=== PATIENT | male | born 1965 | race Caucasian/White ===

== ENCOUNTER 2022-09-08 08:54 | Outpatient (OUT) | payer OTHER, SELFPAY ==
--- NOTE | 2022-09-08 09:11 | P.CN_ITS ---
Consult Note: HPI Data of Consult Patient: known to practice within the last 3 years Consult date: 09/08/22 Requesting Physician: KEESHA TELLEZ NP Primary Care Provider: Peace Luz MD Consult Narrative Narrative: Patient here for f/u of low back pain. He had lumbar MBB done 08/22/22 with >80% relief of pain and increased fx . He would like to proceed with second dx MBB. Pain is bilat lower lumbar with no radicular sx . No new bowel or bladder issues. No new sensorimotor sx. Medication regimen assists patient with completing ADLs. cc:: CC: KEESHA TELLEZ NP Review of Systems ROS Status of ROS 10 or more systems reviewed and unremarkable except as noted in history and below Musculoskeletal Reports: back pain Exam Constitutional Documenting provider has reviewed patient's vital signs: yes Common normals: no apparent distress, oriented x3, healthy appearing and well nourished General appearance: cooperative, comfortable and well developed Orientation/consciousness: Yes awake, Yes oriented to person, Yes oriented to place and Yes oriented to time HENMT Common normals: normocephalic, hearing grossly normal bilaterally, nasal mucous membranes and turbinates normal and moist oral mucous membranes Respiratory Common normals: normal respiratory effort, no retractions and no use of accesso ry muscles Effort & inspection: able to speak in complete sentences and symmetric chest movement Back & Pelvis Lumbar spine/lower back: normal to inspection, lumbar ROM normal, pain with ROM and paraspinal muscle tenderness Extremity Common normals: normal to inspection, normal capillary refill and no pedal edema Other: positive facet load bilat, neg SLR, muscle strength 5/5 bilat LE with intact sensation Assessment and Plan Assessment and Plan (1) Lumbar spondylosis: (2) Muscle spasm: Plan schedule second dx MBB to bilat lumbar L2,3 and L4,5 restart diclofenac BID and calcium BID
== END 2022-09-08 08:55 ==
PROVIDERS: PCP Specialist; Visit Provider Nurse Practitioner
DX: M47.816 Spondylosis without myelopathy or radiculopathy, lumbar region (principal); M62.838 Other muscle spasm
CPT/HCPCS: G0463

== ENCOUNTER 2022-10-10 09:58 | Day surgery (SDC) | payer OTHER, SELFPAY ==
[2022-10-10 10:29] VITALS: BP 114/76; PULSE 62; RESP 16; TEMP 36.7; O2SAT 97
[2022-10-10 11:28] VITALS: RESP 20
[2022-10-10 11:31] VITALS: BP 123/77; PULSE 73; O2SAT 93
[2022-10-10] MEDS: BUPIVACAINE HCL 0.25% PF 25 MG/10 ML VIAL INJ (11:32)
[2022-10-10 11:36] VITALS: BP 121/77; PULSE 72; O2SAT 97
--- NOTE | 2022-10-10 16:39 | W.PM.PROCNOT ---
Date of procedure: 10/10/22 Pre-op diagnosis: lumbar spondylosis Post-op diagnosis: same Procedure: Bilateral lumbar 2,3 & 4,5 medial branch block Under fluoroscopic guidance Solution injected: 2milliliters Marcaine 0.25% Anesthesia :none Immediate complications none Time out process compliant After informed consent obtained from the patient placed in the Prone proposition . area was prepped and draped in a sterile fashion using betadine .25 gauge spinal needle inserted over each of the above mentioned target areas . Assawoman were directed towards the target under fluoroscopic guidance . after encountering each of the targets , no indication of intravascular intraneuronal or intrathecal needle tip placement. Then 0 .5 to 1 Milliliter was injected at each level. Assawoman removed postoperatively. patient transferred to recovery in stable condition to be discharged home after meeting criteria Anesthesia: Local Surgeon: Romulo Moraes
== END 2022-10-10 11:41 | disposition home or self-care (01) ==
LOC: SURGOUT 09:59
PROVIDERS: PCP Family Medicine; Visit Provider Anesthesiology Pain Medicine
DX: M47.816 Spondylosis without myelopathy or radiculopathy, lumbar region (principal)
CPT/HCPCS: 64493; 64494

== ENCOUNTER 2022-10-26 13:00 | Outpatient (OUT) | payer OTHER, SELFPAY ==
--- NOTE | 2022-10-26 13:13 | PM.CN ---
Consult Note: HPI Data of Consult Patient: known to practice within the last 3 years Requesting Physician: KEESHA TELLEZ NP Primary Care Provider: RODRIGO BRINK Consult Narrative Reason for consult: MBB L2-3/L4-5 #2 follow up cc:: CC: KEESHA TELLEZ NP Review of Systems ROS Status of ROS 10 or more systems reviewed and unremarkable except as noted in history and below Musculoskeletal Reports: back pain and limited range of motion (limited ROM with hip rotation) PFSH PFSH Medical History (Updated 10/02/22 @ 08:09 by Jacqueline Abad) Surgical History Meds Home Medications and Allergies Home Medications Medication Instructions Recorded Confirmed Type amitriptyline 25 mg tablet 25 mg PO .HS 10/02/22 10/10/22 History amlodipine 10 mg tablet 10 mg PO .QD 10/02/22 10/10/22 History azelastine-fluticasone 137 mcg-50 1 spray intranasal .QD 10/02/22 10/10/22 History mcg/spray nasal spray bisoprolol 10 1 tab PO .QD 10/02/22 10/10/22 History mg-hydrochlorothiazide 6.25 mg tablet calcium carbonate 500 mg-vitamin 1 tab PO BID 10/02/22 10/10/22 History D3 5 mcg (200 unit) tablet (Oyster Shell Calcium-Vitamin D3) cetirizine 10 mg tablet 10 mg PO .QD 10/02/22 10/10/22 History cyanocobalamin (vitamin B-12) 1,000 mcg PO DAILY 10/02/22 10/10/22 History 1,000 mcg capsule diclofenac sodium 75 mg 75 mg PO BID 10/02/22 10/10/22 History tablet,delayed release folic acid 1 mg tablet 1 mg PO .QD 10/02/22 10/10/22 History gabapentin 300 mg capsule 300 mg PO BID 10/02/22 10/10/22 History halobetasol propionate 0.05 % applic topical BID 10/02/22 History topical cream hydrochlorothiazide 25 mg tablet 25 mg PO DAILY 10/02/22 10/10/22 History hydrocodone 5 mg-acetaminophen 325 tab PO BID PRN pain 10/02/22 History mg tablet hyoscyamine sulfate 0.125 mg tablet 0.125 mg PO Q6H PRN dyspepsia 10/02/22 10/10/22 History methotrexate sodium 2.5 mg tablet 2.5 mg PO QWEEK 10/02/22 10/10/22 History multivitamin 1 tab PO DAILY 10/02/22 10/10/22 History sulindac 200 mg tablet 200 mg PO .QD 10/02/22 10/10/22 History tazarotene 0.1 % topical foam topical 10/02/22 History tizanidine 4 mg tablet 4 mg PO BID PRN muscle spasticity 10/02/22 10/10/22 History triamcinolone acetonide 0.1 % applic topical BID 10/02/22 History topical cream Allergies Allergy/AdvReac Type Severity Reaction Status Date / Time adalimumab [From Humira] Allergy Verified 10/10/22 10:24 morphine Allergy Verified 10/10/22 10:24 secukinumab [From Cosentyx] Allergy Verified 10/10/22 10:24 Exam Constitutional Common normals: no apparent distress, oriented x3, healthy appearing, alert and well nourished General appearance: cooperative HENMT Common normals: normocephalic Head and scalp: normocephalic Mouth: oral and palatal mucosa normal Eye Common normals: PERRL Pupil: PERRL Neck & C-Spine Common normals: full ROM General: normal visual inspection Chest Common normals: inspection of chest normal Respiratory Common normals: normal respiratory effort, no retractions and no use of accessory muscles Back & Pelvis Thoracic spine/upper back: normal to inspection Lumbar spine/lower back: normal to inspection, ROM limited, pain with ROM and paraspinal muscle tenderness Sacroiliac joints: SI joints normal Extremity Common normals: normal to inspection and full ROM Neuro Common normals: oriented x3, CN's II-XII intact bilaterally, moves all extremities, no focal motor deficits, no sensory deficits noted, deep tendon reflexes 2+ bilaterally and gait normal Sensorium/orientation: alert Cranial nerves: CN normal except as noted Speech: speech normal Gait (neuro): normal gait Motor exam: strength 5/5 throughout and no movement abnormalities noted Psych Common normals: mental status grossly normal, thought process normal, cooperative, affect normal, speech normal and activity/motor behavior normal Speech: normal speech Thought process: normal thought process Assessment and Plan Assessment and Plan (1) Lumbar spondylosis: (2) Muscle spasm: Plan Pt f/u for evluation after MBB #2 at L2-3 L 4-5 on 10/10/22. Patient experienced moderate pain relief and improvement with ADLs, at least 80% relief. Patient reports significant improvement with ability to climb stairs, able to ambulate better and further around apartment, pain relief lasted a few hours after test injection. Patient denies radiclopathy, no change in bowel/bladder continence. Patients current pain medication regimen provides substantial relief in pain and ability to carry out ADLs. UDS up to date, OARRS Reviewed, RYLEE 60% Muscle Strength 5/5 BLE, sensation intact BLE Plan to proceed with left side L3-4 L4-5 RFA followed by right side L3-L4 L4-L5 RFA. Refilled [place] 5/325 BID. F/u after RFA.
== END 2022-10-26 13:01 | disposition home or self-care (01) ==
LOC: PM 13:00
PROVIDERS: PCP Family Medicine; Visit Provider Nurse Practitioner
DX: M47.816 Spondylosis without myelopathy or radiculopathy, lumbar region (principal); M62.838 Other muscle spasm
CPT/HCPCS: G0463

== ENCOUNTER 2022-11-14 10:57 | Day surgery (SDC) | payer OTHER, SELFPAY ==
[2022-11-14 11:19] VITALS: BP 144/93; PULSE 71; RESP 16; TEMP 36.7; O2SAT 98
[2022-11-14 12:10] VITALS: BP 126/81; PULSE 74; RESP 20; O2SAT 92
[2022-11-14] MEDS: METHYLPREDNISOLONE ACETATE 40 MG/ML VIAL INJ (12:13)
[2022-11-14] MEDS: LIDOCAINE HCL 2% 400 MG/20 ML MDV 15 ML INJ (12:13)
[2022-11-14] MEDS: BUPIVACAINE HCL 0.25% PF 25 MG/10 ML VIAL 4 ML INJ (12:13)
[2022-11-14 12:16] VITALS: BP 125/79; PULSE 76; O2SAT 92
--- NOTE | 2022-11-14 16:17 | W.PM.PROCNOT ---
Date of procedure: 11/14/22 Pre-op diagnosis: lumbar spondylosis Post-op diagnosis: same as pre-op Procedure: Left lumbar 2/3 and 4/5 Radiofrequency ablation Under fluoroscopic guidance Rhizotomy was created using radio frequency ablation at 80?C for 90 seconds 1 to 2 lesions created at each site. Post lesioning injection of 2 mL each of 0.25% Marcaine and 2% lidocaine with Depo-Medrol 40mg. 0.5 to 1 mL injected at each site Anesthesia local 2% lidocaine for Anesthesia Other: MAC Timeout process compliant After informed consent obtained.Patient brought to the procedure room placed in the prone position skin overlying the area was prepped and draped in a sterile fashion using betadine. 25 gauge needle was used to create a skin wheal over each of the targeted areas utilizing 2% lidocaine. A rhizotomy needle with a 10 mm active tip was inserted over each of the anesthetized areas and directed towards each of the medial branches accomplished under fluoroscopic guidance. after encountering the same we had positive sensory stimulation, negative motor stimulation was noted. lesions were then created. Post lesioning, steroid solution was injected needles removed. Patient was transferred to recovery room in stable condition to be discharged home after meeting criteria. Anesthesia: Local Surgeon: Romulo Moraes Condition: stable
== END 2022-11-14 12:31 | disposition home or self-care (01) ==
LOC: SURGOUT 10:58
PROVIDERS: PCP Family Medicine; Visit Provider Anesthesiology Pain Medicine
DX: M47.816 Spondylosis without myelopathy or radiculopathy, lumbar region (principal)
CPT/HCPCS: 64635; 64636; J1030

== ENCOUNTER 2022-12-05 12:01 | Day surgery (SDC) | payer OTHER, SELFPAY ==
[2022-12-05 12:31] VITALS: BP 127/83; PULSE 73; RESP 16; TEMP 37; O2SAT 96
[2022-12-05 13:35] VITALS: BP 123/78; PULSE 77; RESP 18; O2SAT 96
[2022-12-05] MEDS: METHYLPREDNISOLONE ACETATE 40 MG/ML VIAL INJ (13:38)
[2022-12-05] MEDS: BUPIVACAINE HCL 0.25% PF 25 MG/10 ML VIAL INJ (13:38)
[2022-12-05] MEDS: LIDOCAINE HCL 2% 400 MG/20 ML MDV 15 ML INJ (13:38)
[2022-12-05 13:40] VITALS: BP 132/77; PULSE 73; RESP 18; O2SAT 97
--- NOTE | 2022-12-05 16:15 | W.PM.PROCNOT ---
Date of procedure: 12/05/22 Pre-op diagnosis: lumbar spondylosis Post-op diagnosis: same as pre-op Procedure: Right lumbar 2/3, 4/5 Radiofrequency ablation Under fluoroscopic guidance Rhizotomy was created using radio frequency ablation at 80?C for 90 seconds 1 to 2 lesions created at each site. Post lesioning injection of 2 mL each of 0.25% Marcaine and 2% lidocaine with Depo-Medrol 40mg. 0.5 to 1 mL injected at each site IV in place yes/no If Intravenous fluids: NS at KVO Anesthesia local 2% lidocaine for Anesthesia Other: MAC Timeout process compliant After informed consent obtained.Patient brought to the procedure room placed in the prone position skin overlying the area was prepped and draped in a sterile fashion using betadine. 25 gauge needle was used to create a skin wheal over each of the targeted areas utilizing 2% lidocaine. A rhizotomy needle with a 10 mm active tip was inserted over each of the anesthetized areas and directed towards each of the medial branches accomplished under fluoroscopic guidance. after encountering the same we had positive sensory stimulation, negative motor stimulation was noted. lesions were then created. Post lesioning, steroid solution was injected needles removed. Patient was transferred to recovery room in stable condition to be discharged home after meeting criteria. Anesthesia: MAC Surgeon: Roumlo Moraes Condition: stable
== END 2022-12-05 13:55 | disposition home or self-care (01) ==
LOC: SURGOUT 12:02
PROVIDERS: PCP Family Medicine; Visit Provider Anesthesiology Pain Medicine
DX: M47.816 Spondylosis without myelopathy or radiculopathy, lumbar region (principal)
CPT/HCPCS: 64635; 64636; J1030

== ENCOUNTER 2022-12-29 09:25 | Outpatient (OUT) | payer OTHER, SELFPAY | END 2022-12-29 09:26 | disposition home or self-care (01) | PROVIDERS: PCP Family Medicine; Visit Provider Nurse Practitioner | DX: Z76.0 Encounter for issue of repeat prescription (principal) ==

== ENCOUNTER 2023-01-11 14:15 | Outpatient (OUT) | payer OTHER, SELFPAY ==
--- NOTE | 2023-01-11 14:49 | PM.CN ---
Consult Note: HPI Data of Consult Requesting Physician: Negra Solorzano NP Primary Care Provider: RODRIGO BRINK Consult Narrative Reason for consult: F/u Narrative: Patrick Buckley a pleasant 57 year old male presents for evaluation and management of chronic back pain, muscle spasms, and neuropathy. Patient rating pain today 9/10 in low back, radiating into bilateral thighs. Patient describes pain as a deep ache with occasional burning and muscle tightness/spasming. Patient recently completed right and left L2-3 L4-5 thermal RFA with only mild relief of pain and improvement of function, approximately 10%. cc:: CC: Negra Solorzano NP Review of Systems ROS Status of ROS 10 or more systems reviewed and unremarkable except as noted in history and below Musculoskeletal Reports: back pain and muscle cramps PFSH [facility] Medical History (Updated 01/11/23 @ 14:54 by Negra Solorzano NP) Hypertension ?I10 - Essential (primary) hypertension (ICD-10) Low back pain ?M54.50 - Low back pain, unspecified (ICD-10) Neck pain ?M54.2 - Cervicalgia (ICD-10) Numbness and tingling ?R20.0 - Anesthesia of skin (ICD-10) ?R20.2 - Paresthesia of skin (ICD-10) Osteoarthritis ?M19.90 - Unspecified osteoarthritis, unspecified site (ICD-10) Psoriatic arthritis ?L40.50 - Arthropathic psoriasis, unspecified (ICD-10) Upper back pain ?M54.9 - Dorsalgia, unspecified (ICD-10) Surgical History H/O gastric bypass ?Z98.84 - Bariatric surgery status (ICD-10) H/O umbilical hernia repair ?Z98.890 - Other specified postprocedural states (ICD-10) ?Z87.19 - Personal history of other diseases of the digestive system (ICD-10) H/O ventral hernia repair ?Z98.890 - Other specified postprocedural states (ICD-10) ?Z87.19 - Personal history of other diseases of the digestive system (ICD-10) History of appendectomy ?Z90.49 - Acquired absence of other specified parts of digestive tract (ICD-10) History of herniorrhaphy ?Z98.890 - Other specified postprocedural states (ICD-10) ?Z87.19 - Personal history of other diseases of the digestive system (ICD-10) Meds Home Medications and Allergies Home Medications Medication Instructions Recorded Confirmed Type amitriptyline 25 mg tablet 25 mg PO .HS 10/02/22 12/05/22 History amlodipine 10 mg tablet 10 mg PO .QD 10/02/22 12/05/22 History azelastine-fluticasone 137 mcg-50 1 spray intranasal .QD 10/02/22 12/05/22 History mcg/spray nasal spray bisoprolol 10 1 tab PO .QD 10/02/22 12/05/22 History mg-hydrochlorothiazide 6.25 mg tablet calcium carbonate 500 mg-vitamin 1 tab PO BID 10/02/22 12/05/22 History D3 5 mcg (200 unit) tablet (Oyster Shell Calcium-Vitamin D3) cetirizine 10 mg tablet 10 mg PO .QD 10/02/22 12/05/22 History cyanocobalamin (vitamin B-12) 1,000 mcg PO DAILY 10/02/22 12/05/22 History 1,000 mcg capsule diclofenac sodium 75 mg 75 mg PO BID 10/02/22 12/05/22 History tablet,delayed release folic acid 1 mg tablet 1 mg PO .QD 10/02/22 12/05/22 History gabapentin 300 mg capsule 300 mg PO BID 10/02/22 12/05/22 History halobetasol propionate 0.05 % applic topical BID 10/02/22 History topical cream hydrochlorothiazide 25 mg tablet 25 mg PO DAILY 10/02/22 12/05/22 History hydrocodone 5 mg-acetaminophen 325 tab PO BID PRN pain 10/02/22 History mg tablet hyoscyamine sulfate 0.125 mg tablet 0.125 mg PO Q6H PRN dyspepsia 10/02/22 12/05/22 History methotrexate sodium 2.5 mg tablet 2.5 mg PO QWEEK 10/02/22 12/05/22 History multivitamin 1 tab PO DAILY 10/02/22 12/05/22 History sulindac 200 mg tablet 200 mg PO .QD 10/02/22 12/05/22 History tazarotene 0.1 % topical foam topical 10/02/22 History tizanidine 4 mg tablet 4 mg PO BID PRN muscle spasticity 10/02/22 12/05/22 History triamcinolone acetonide 0.1 % applic topical BID 10/02/22 History topical cream hydrocodone 5 mg-acetaminophen 325 1 tab PO BID PRN pain #60 tabs 11/20/22 12/05/22 Rx mg tablet hydrocodone 5 mg-acetaminophen 325 1 tab PO BID PRN pain #60 tabs 12/25/22 Rx mg tablet hydrocodone 5 mg-acetaminophen 325 1 tab PO BID PRN pain #60 tabs 12/29/22 Rx mg tablet hydrocodone 5 mg-acetaminophen 325 1 tab PO BID PRN pain #60 tabs 12/29/22 Rx mg tablet Allergies Allergy/AdvReac Type Severity Reaction Status Date / Time adalimumab [From Humira] Allergy Verified 12/05/22 12:41 morphine Allergy Verified 12/05/22 12:41 secukinumab [From Cosentyx] Allergy Verified 12/05/22 12:41 Exam Constitutional Common normals: no apparent distress, oriented x3, healthy appearing, alert and well nourished General appearance: cooperative HENRI Common normals: normocephalic Head and scalp: normocephalic Mouth: oral and palatal mucosa normal Eye Common normals: PERRL Pupil: PERRL Neck & C-Spine Common normals: full ROM General: normal visual inspection Chest Common normals: inspection of chest normal Respiratory Common normals: normal respiratory effort, no retractions and no use of accessory muscles Back & Pelvis Thoracic spine/upper back: normal to inspection Lumbar spine/lower back: normal to inspection, ROM limited, pain with ROM and paraspinal muscle tenderness Sacroiliac joints: SI joints normal Extremity Common normals: normal to inspection and full ROM Neuro Common normals: oriented x3, CN's II-XII intact bilaterally, moves all extremities, no focal motor deficits, no sensory deficits noted, deep tendon reflexes 2+ bilaterally and gait normal Sensorium/orientation: alert Cranial nerves: CN normal except as noted Speech: speech normal Gait (neuro): normal gait Motor exam: strength 5/5 throughout and no movement abnormalities noted Psych Common normals: mental status grossly normal, thought process normal, cooperative, affect normal, speech normal and activity/motor behavior normal Speech: normal speech Thought process: normal thought process Assessment and Plan Assessment and Plan (1) Lumbar spondylosis: (2) Muscle spasm: (3) Numbness and tingling: (4) Osteoarthritis: (5) Low back pain: (6) Chronic prescription opiate use: Assessment and Plan: I feel these medications are improving the patient's quality of life and allow them to tolerate activities of daily living as well as participate in recreational activity.? The patient does not report intolerable side effects. The patient is NOT opioid naive and non-pharmacologic and non-opioid treatment has failed to significantly relieve the patient's pain and improve functionality. The patient has a diagnosis that is related to a somatic or visceral pain etiology. ? ?? I reviewed with the patient the potential risks and side effects with the use of? opioid medications including but not limited to respiratory depression,? sedation, and even . I verified the patient has access to naloxone should? these effects occur. I advised the patient to avoid the use of any other? sedation substances including alcohol, THC, and benzodiazepines while? taking opioid medications due to the risk of compounding side effects and? detrimental outcomes. I reviewed the FIELD SERVICER, pain treatment agreement, urine? drug screen, and opioid start talking forms. The patient was advised to let? their family know they had Naloxone in case they would need to administer? the medication.? ? Plan pt for low back pain (with TENS) lumbar x-ray increase tizanidine 8mg BID PRN continue f/u with PCP and Rheumatology continue current medications, tolerating well without side effects f/u 2 months
== END 2023-01-11 14:16 | disposition home or self-care (01) ==
LOC: PM 14:15
PROVIDERS: PCP Family Medicine; Visit Provider Nurse Practitioner
DX: L40.50 Arthropathic psoriasis, unspecified (principal); L40.51 Distal interphalangeal psoriatic arthropathy; L40.53 Psoriatic spondylitis; D53.9 Nutritional anemia, unspecified; L40.0 Psoriasis vulgaris; L40.9 Psoriasis, unspecified; M65.9 Synovitis and tenosynovitis, unspecified; M86.9 Osteomyelitis, unspecified; M85.80 Other specified disorders of bone density and structure, unspecified site; L40.3 Pustulosis palmaris et plantaris; L70.9 Acne, unspecified; Z87.442 Personal history of urinary calculi; Z87.2 Personal history of diseases of the skin and subcutaneous tissue; Z79.1 Long term (current) use of non-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-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); Z79.899 Other long term (current) drug therapy; Z79.631 Long term (current) use of antimetabolite agent; R94.4 Abnormal results of kidney function studies; E55.9 Vitamin D deficiency, unspecified; M50.30 Other cervical disc degeneration, unspecified cervical region; M75.41 Impingement syndrome of right shoulder; M75.42 Impingement syndrome of left shoulder; M47.812 Spondylosis without myelopathy or radiculopathy, cervical region; M19.011 Primary osteoarthritis, right shoulder; M19.012 Primary osteoarthritis, left shoulder; M19.041 Primary osteoarthritis, right hand; M19.042 Primary osteoarthritis, left hand; M16.0 Bilateral primary osteoarthritis of hip; M19.031 Primary osteoarthritis, right wrist; M19.032 Primary osteoarthritis, left wrist; M17.0 Bilateral primary osteoarthritis of knee; M47.816 Spondylosis without myelopathy or radiculopathy, lumbar region; M62.838 Other muscle spasm; R20.0 Anesthesia of skin; R20.2 Paresthesia of skin; M54.50 Low back pain, unspecified; Z79.891 Long term (current) use of opiate analgesic
CPT/HCPCS: 36415; 81001; 82306; 82565; 82652; 84450; 84460; 84520; 85025; 85652; 86140; G0463

== ENCOUNTER 2023-01-11 15:03 | Outpatient (OUT) | payer OTHER, SELFPAY ==
[2023-01-11 15:29] LABS: Basophils Percent Auto 0.5 % (0.2-2.0); Eosinophils Absolute Auto 0.1 10^3/uL (0.0-0.7); Eosinophils Percent Auto 0.7 % (0.9-7.0); Hematocrit 38.3 % (42.0-54.0); Hemoglobin 12.7 g/dL (14.0-18.0); Immature Granulocytes Abs Auto 0.02 10^3/uL (0.00-0.03); Immature Granulocytes Pct Auto 0.3 % (0.0-0.5); Lymphocytes Absolute Auto 1.7 10^3/uL (1.2-3.8); Lymphocytes Percent Auto 22.4 % (20.5-60.0); Mean Corpuscular HGB Conc 33.2 g/dL (29.9-35.2); Mean Corpuscular Hemoglobin 35.2 pg (25.9-34.0); Mean Platelet Volume 9.5 fL (9.5-13.5); Monocytes Absolute Auto 0.8 10^3/uL (0.3-0.8); Monocytes Percent Auto 10.2 % (1.7-12.0); Neutrophils Absolute Auto 4.8 10^3/uL (1.4-6.5); Neutrophils Percent Auto 65.9 % (43.0-75.0); Platelet Count 313 10^3/uL (150-450); Red Blood Count 3.61 10^6/uL (4.70-6.10); Red Cell Distribution Width 13.8 % (11.0-15.0); White Blood Count 7.4 10^3/uL (4.0-11.0)
[2023-01-11 15:41] LABS: Erythrocyte Sedimentation Rate 2 mm/hr (<=20)
[2023-01-11 15:48] LABS: Bilirubin Urine NEGATIVE (NEGATIVE); Blood Urine SMALL (NEGATIVE); Clarity Urine CLEAR (CLEAR); Color Urine YELLOW (YELLOW); Glucose Urine UA NEGATIVE (NEGATIVE); Ketones Urine NEGATIVE (NEGATIVE); Leukocyte Esterase Urine TRACE (NEGATIVE); Nitrite Urine NEGATIVE (NEGATIVE); Protein Urine NEGATIVE (NEG/TRACE); Specific Gravity Urine 1.025 (1.005-1.025); Urobilinogen Urine 0.2 EU/dL (0.2-1.0); pH Urine 5.5 (5.0-9.0)
[2023-01-11 15:59] LABS: Mean Corpuscular Volume 106.1 fL (80.0-94.0)
[2023-01-11 16:04] LABS: Alanine Aminotransferase 36 U/L (16-63); Aspartate Amino Transferase 17 U/L (15-37); Estimated GFR (African America 56 (>=60); Estimated GFR (Non-African Ame 46 (>=60)
[2023-01-11 16:05] LABS: C Reactive Protein <0.2 mg/dL (<=1.0)
[2023-01-11 16:06] LABS: Bacteria Urine TRACE #/HPF (NONE SEEN); Cast Seen? NONE SEEN #/LPF (NONE SEEN); Crystals Seen? None Seen #/HPF (None Seen); Mucus Urine TRACE (NONE SEEN); Squamous Epithelial Cell Urine FEW #/LPF (NONE/RARE); Urine Culture Indicated NO
[2023-01-13 15:09] LABS: Calcitriol(1,25 di-OH Vit D) 25.9 pg/mL (24.8-81.5)
== END 2023-01-11 15:04 | disposition home or self-care (01) ==
LOC: LAB 15:04
PROVIDERS: PCP Family Medicine
DX: L40.50 Arthropathic psoriasis, unspecified (principal); L40.51 Distal interphalangeal psoriatic arthropathy; L40.53 Psoriatic spondylitis; D53.9 Nutritional anemia, unspecified; L40.0 Psoriasis vulgaris; L40.9 Psoriasis, unspecified; M65.9 Synovitis and tenosynovitis, unspecified; M86.9 Osteomyelitis, unspecified; M85.80 Other specified disorders of bone density and structure, unspecified site; L40.3 Pustulosis palmaris et plantaris; L70.9 Acne, unspecified; Z87.442 Personal history of urinary calculi; Z79.4 Long term (current) use of insulin; Z79.899 Other long term (current) drug therapy; Z79.631 Long term (current) use of antimetabolite agent; R94.4 Abnormal results of kidney function studies; E55.9 Vitamin D deficiency, unspecified; M50.30 Other cervical disc degeneration, unspecified cervical region; M75.41 Impingement syndrome of right shoulder; M75.42 Impingement syndrome of left shoulder; M47.812 Spondylosis without myelopathy or radiculopathy, cervical region; M19.011 Primary osteoarthritis, right shoulder; M19.012 Primary osteoarthritis, left shoulder; M19.041 Primary osteoarthritis, right hand; M19.042 Primary osteoarthritis, left hand; M16.0 Bilateral primary osteoarthritis of hip; M19.031 Primary osteoarthritis, right wrist; M19.032 Primary osteoarthritis, left wrist; M17.0 Bilateral primary osteoarthritis of knee
CPT/HCPCS: 36415; 81001; 82306; 82565; 82652; 84450; 84460; 84520; 85025; 85652; 86140

== ENCOUNTER 2023-01-22 14:11 | Outpatient (OUT) | payer OTHER, SELFPAY ==
--- NOTE | 2023-01-22 14:16 | XR_ITS ---
The [address] [address] Patient Name: GLENDA VALENTE MRN: [id number] date: 1965 Sex: M Assigned Patient Location: [facility] Current Patient Location: Accession/Order Number: [id number] Exam Date: 01/22/2023 14:30 Report Date: 01/23/2023 08:36 At the request of: KEELEY PIERSON Procedure: XR lumbar spine 6V w bending EXAMINATION: XR lumbar spine 6V w bending HISTORY: Lumbar Spondylosis ; chronic low back pain, right leg pain COMPARISON: XR L-spine 03/29/2018 FINDINGS: BONES: No fracture, spondylolisthesis, bone lesion. Mild degenerative facet arthropathy L4-5, L5-S1. Chronic, large degenerative osteophytes along the anterior endplate of T11 and T12. DISC SPACES: Mild narrowing L5-S1. PARASPINOUS: Negative. No paraspinous abnormality is seen. OTHER: Negative. XR/XR lumbar spine 6V w bending IMPRESSION: 1. Mild degenerative changes of lower lumbar spine; grossly stable. Electronically authenticated by: RAE DEJESUS Date: 01/23/2023 08:36
== END 2023-01-22 14:12 | disposition home or self-care (01) ==
LOC: RAD 14:13
PROVIDERS: PCP Family Medicine; Visit Provider Nurse Practitioner
DX: M47.816 Spondylosis without myelopathy or radiculopathy, lumbar region (principal)
CPT/HCPCS: 72114

== ENCOUNTER 2023-02-08 14:13 | Outpatient (OUT) | payer OTHER, SELFPAY ==
[2023-02-08 14:46] LABS: Bilirubin Urine NEGATIVE (NEGATIVE); Blood Urine TRACE-I (NEGATIVE); Clarity Urine CLEAR (CLEAR); Color Urine LT. YELLOW (YELLOW); Glucose Urine UA NEGATIVE (NEGATIVE); Ketones Urine NEGATIVE (NEGATIVE); Leukocyte Esterase Urine NEGATIVE (NEGATIVE); Nitrite Urine NEGATIVE (NEGATIVE); Protein Urine NEGATIVE (NEG/TRACE); Specific Gravity Urine 1.025 (1.005-1.025); Urobilinogen Urine 0.2 EU/dL (0.2-1.0); pH Urine 5.5 (5.0-9.0)
[2023-02-08 14:56] LABS: Estimated GFR (African America >60 (>=60); Estimated GFR (Non-African Ame 57 (>=60)
[2023-02-08 14:56] LABS: Bacteria Urine TRACE #/HPF (NONE SEEN); Mucus Urine NONE SEEN (NONE SEEN); WBC Urine 0-2 #/HPF (NONE SEEN)
[2023-02-08 14:57] LABS: Cast Seen? NONE SEEN #/LPF (NONE SEEN); Crystals Seen? None Seen #/HPF (None Seen); Squamous Epithelial Cell Urine RARE #/LPF (NONE/RARE)
== END 2023-02-08 14:14 | disposition home or self-care (01) ==
PROVIDERS: PCP Family Medicine
DX: R94.4 Abnormal results of kidney function studies (principal)
CPT/HCPCS: 36415; 81001; 82565; 84520

== ENCOUNTER 2023-03-15 14:33 | Outpatient (OUT) | payer OTHER, SELFPAY ==
--- NOTE | 2023-03-15 15:08 | P.CN_ITS ---
Consult Note: HPI Data of Consult Patient: known to practice within the last 3 years Requesting Physician: Negra Solorzano NP Primary Care Provider: RODRIGO BRINK Consult Narrative Reason for consult: f/u Narrative: Patrick Buckley a pleasant 57 year old male presents for evaluation and management of chronic pain. Today pain is in neck and low back, 7/10 sharp pain. Patient reports numbness and tingling in bilateral hands, worse in the morning. Lumbar xray shows degenerative changes most extensive at bilateral L4-5 L5-S1. Patient still finds mild to no benefit from lumbar RFAs. Patient would like to discuss options for chronic neck pain at today's visit. cc:: CC: Negra Solorzano NP Review of Systems 2 ROS0 Status of ROS 10 or more systems reviewed and unremark able except as noted in history and below Musculoskeletal Reports: back pain, neck pain and joint pain PFSH PFSH Medical History (Updated 03/15/23 @ 15:22 by Negra Solorzano NP) Psoriatic arthritis ?L40.50 - Arthropathic psoriasis, unspecified (ICD-10) Osteoarthritis ?M19.90 - Unspecified osteoarthritis, unspecified site (ICD-10) Upper back pain ?M54.9 - Dorsalgia, unspecified (ICD-10) Low back pain ?M54.50 - Low back pain, unspecified (ICD-10) Neck pain ?M54.2 - Cervicalgia (ICD-10) Numbness and tingling ?R20.0 - Anesthesia of skin (ICD-10) ?R20.2 - Paresthesia of skin (ICD-10) Hypertension ?I10 - Essential (primary) hypertension (ICD-10) Surgical History H/O umbilical hernia repair ?Z98.890 - Other specified postprocedural states (ICD-10) ?Z87.19 - Personal history of other diseases of the digestive system (ICD-10) H/O ventral hernia repair ?Z98.890 - Other specified postprocedural states (ICD-10) ?Z87.19 - Personal history of other diseases of the digestive system (ICD-10) H/O gastric bypass ?Z98.84 - Bariatric surgery status (ICD-10) History of herniorrhaphy ?Z98.890 - Other specified postprocedural states (ICD-10) ?Z87.19 - Personal history of other diseases of the digestive system (ICD-10) History of appendectomy ?Z90.49 - Acquired absence of other specified parts of digestive tract (ICD- 10) Meds Home Medications and Allergies Home Medications Medication Instructions Recorded Confirmed Type amitriptyline 25 mg tablet 25 mg PO .HS 10/02/22 12/05/22 History amlodipine 10 mg tablet 10 mg PO .QD 10/02/22 12/05/22 History azelastine-fluticasone 137 mcg-50 1 spray intranasal .QD 10/02/22 12/05/22 History mcg/spray nasal spray bisoprolol 10 1 tab PO .QD 10/02/22 12/05/22 History mg-hydrochlorothiazide 6.25 mg tablet calcium carbonate 500 mg-vitamin 1 tab PO BID 10/02/22 12/05/22 History D3 5 mcg (200 unit) tablet (Oyster Shell Calcium-Vitamin D3) cetirizine 10 mg tablet 10 mg PO .QD 10/02/22 12/05/22 History cyanocobalamin (vitamin B-12) 1,000 mcg PO DAILY 10/02/22 12/05/22 History 1,000 mcg capsule diclofenac sodium 75 mg 75 mg PO BID 10/02/22 12/05/22 History tablet,delayed release folic acid 1 mg tablet 1 mg PO .QD 10/02/22 12/05/22 History gabapentin 300 mg capsule 300 mg PO BID 10/02/22 12/05/22 History halobetasol propionate 0.05 % applic topical BID 10/02/22 History topical cream hydrochlorothiazide 25 mg tablet 25 mg PO DAILY 10/02/22 12/05/22 History hydrocodone 5 mg-acetaminophen 325 tab PO BID PRN pain 10/02/22 History mg tablet hyoscyamine sulfate 0.125 mg tablet 0.125 mg PO Q6H PRN dyspepsia 10/02/22 12/05/22 History methotrexate sodium 2.5 mg tablet 2.5 mg PO QWEEK 10/02/22 12/05/22 History multivitamin 1 tab PO DAILY 10/02/22 12/05/22 History sulindac 200 mg tablet 200 mg PO .QD 10/02/22 12/05/22 History tazarotene 0.1 % topical foam topical 10/02/22 History tizanidine 4 mg tablet 4 mg PO BID PRN muscle spasticity 10/02/22 12/05/22 History triamcinolone acetonide 0.1 % applic topical BID 10/02/22 History topical cream hydrocodone 5 mg-acetaminophen 325 1 tab PO BID PRN pain #60 tabs 11/20/22 12/05/22 Rx mg tablet hydrocodone 5 mg-acetaminophen 325 1 tab PO BID PRN pain #60 tabs 12/25/22 Rx mg tablet hydrocodone 5 mg-acetaminophen 325 1 tab PO BID PRN pain #60 tabs 12/29/22 Rx mg tablet hydrocodone 5 mg-acetaminophen 325 1 tab PO BID PRN pain #60 tabs 12/29/22 Rx mg tablet hydrocodone 5 mg-acetaminophen 325 1 tab PO BID PRN pain #60 tabs 01/22/23 Rx mg tablet hydrocodone 5 mg-acetaminophen 325 1 tab PO BID PRN pain #60 tabs 02/26/23 Rx mg tablet Allergies Allergy/AdvReac Type Severity Reaction Status Date / Time adalimumab [From Humira] Allergy Verified 12/05/22 12:41 morphine Allergy Verified 12/05/22 12:41 secukinumab [From Cosentyx] Allergy Verified 12/05/22 12:41 Exam Constitutional Documenting provider has reviewed patient's vital signs: yes Common normals: no apparent distress, oriented x3, healthy appearing, alert and well nourished General appearance: cooperative [facility] Common normals: normocephalic, hearing grossly normal bilaterally and moist oral mucous membranes Head and scalp: normocephalic Mouth: oral and palatal mucosa normal Eye Common normals: PERRL Pupil: PERRL Neck & C-Spine Common normals: full ROM General: normal visual inspection Cervical spine: pain with cervical ROM and paracervical muscle tenderness Neck images: 2 1. Chest Common normals: inspection of chest normal Respiratory Common normals: normal respiratory effort, no retractions and no use of accessory muscles Back & Pelvis Thoracic spine/upper back: normal to inspection Lumbar spine/lower back: normal to inspection, ROM limited, pain with ROM and paraspinal muscle tenderness Sacroiliac joints: SI joints normal Extremity Common normals: normal to inspection and full ROM Neuro Common normals: oriented x3, CN's II-XII intact bilaterally, moves all extremities, no focal motor deficits, no sensory deficits noted and deep tendon reflexes 2+ bilaterally Sensorium/orientation: alert Cranial nerves: CN normal except as noted Speech: speech normal Gait (neuro): normal gait Motor exam: strength 5/5 throughout and no movement abnormalities noted Psych Common normals: mental status grossly normal, thought process normal, cooperative, affect normal, speech normal and activity/motor behavior normal Speech: normal speech Thought process: normal thought process Results Additional Findings Additional findings: I have checked an [place] report on this patient today and there are no aberrancies noted in the prescribing history.?? A drug screen was completed and reviewed within the last year, and if there has not been a drug screen completed we ordered one today to monitor higher risk, state monitored pain medication use. As part of providing excellent, safe, comprehensive care, the following was completed at our patient's visit: 1. A medication reconciliation and review to ensure accurate knowledge of current/active medications, including asking our patients to inform us about any [id number] medications or herbal remedies/nutritional supplements/alternative remedies. 2. A review to specifically ensure our patients have had annual screening for: elevated body mass index (BMI), tobacco use, screening for depression, and screening for unhealthy alcohol use. When screening is concerning, patients are provided with education and the specific recommendation to discuss the concerning health issue and treatment options with their primary care provider. Assessment and Plan Assessment and Plan (1) Cervical spondylosis: (2) Osteoarthritis: (3) Chronic prescription opiate use: (4) Muscle spasm: (5) Lumbar spondylosis: Plan cervical xray EMG NCV of BUE continue current medications, tolerating well without side effect and finding functional benefit start transdermal therapeutics cream #8A TID to neck f/u after EMG/NCV and cervical xrays complete
== END 2023-03-15 14:34 | disposition home or self-care (01) ==
LOC: PM 14:33
PROVIDERS: PCP Family Medicine; Visit Provider Nurse Practitioner
DX: M47.812 Spondylosis without myelopathy or radiculopathy, cervical region (principal); M19.90 Unspecified osteoarthritis, unspecified site; Z79.891 Long term (current) use of opiate analgesic; M62.838 Other muscle spasm; M47.816 Spondylosis without myelopathy or radiculopathy, lumbar region
CPT/HCPCS: G0463

== ENCOUNTER 2023-03-16 10:42 | Outpatient (OUT) | payer OTHER, SELFPAY ==
--- NOTE | 2023-03-16 10:52 | XR_ITS ---
The [address] [address] Patient Name: GLENDA VALENTE MRN: [id number] date: 1965 Sex: M Assigned Patient Location: [facility] Current Patient Location: Accession/Order Number: [id number] Exam Date: 03/16/2023 11:00 Report Date: 03/19/2023 08:51 At the request of: KEELEY PIERSON Procedure: XR cervical spine 5V EXAMINATION: XR cervical spine 5V HISTORY: Cervical Spondylosis COMPARISON: No relevant comparison available. FINDINGS: BONES: Normal alignment with no acute fracture or spondylolisthesis. Moderate diffuse degenerative spondylosis and facet osteoarthropathy DISC SPACES: Moderate multilevel disc space narrowing most significant C6-C7 PARASPINOUS: Negative. No paraspinous abnormality is seen. OTHER: Negative. XR/XR cervical spine 5V IMPRESSION: Moderate diffuse degenerative changes Electronically authenticated by: TRA ANNE Date: 03/19/2023 08:51
== END 2023-03-16 10:43 | disposition home or self-care (01) ==
LOC: RAD 10:44
PROVIDERS: PCP Family Medicine; Visit Provider Nurse Practitioner
DX: M47.812 Spondylosis without myelopathy or radiculopathy, cervical region (principal); M50.30 Other cervical disc degeneration, unspecified cervical region
CPT/HCPCS: 72050

== ENCOUNTER 2023-04-27 10:18 | Outpatient (OUT) | payer OTHER, SELFPAY ==
--- OUTSIDE RECORDS SUMMARY | 2023-04-27 10:25 | XMS_ITS | CCD ---
Author Name Unknown Address [address] [place] [address] Organization [facility] Care Team Providers Care 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 Name Role Phone Rodrigo Luz Unavailable PILI ALLAN Surgeon Unavailable PILI ALLAN Attending Unavailable PILI ALLAN Admitting Unavailable [place] Procedure Practitioner Unavailab RODRIGO Proctor Referring Unavailable RODRIGO LUZ Primary Care Unavailable DANIELA MILIAN Surgeon Unavailable [place] Procedure Practitioner UnavailRodrigo Cannon MD Primary Care Provider [phone] Rodrigo Luz MD Primary Care Provider TRA VALE JR Attending Unavailable TRA VALE JR Referring Unavailable RODRIGO LUZ Primary Care Unavailable TRA VALE JR Attending Unavailable TRA VALE JR Referring Unavailable RODRIGO LUZ Primary Care Unavailable Tania Neal Unavailable TRA VALE Admitting Unavailable TRA VALE Attending Unavailable NATTY ., DR RODRIGO Kang Primary Care Unavailable TRA VALE Consulting Unavailable DEMAR ., DR PAXTON Jarrett Admitting Unavailable DEMAR ., DR PAXTON Jarrett Attending Unavailable NATTY ., DR RODRIGO Kang Primary Care Unavailable KATHE .FRACISCO Consulting Unavailable NATTY ., DR RODRIGO Kang Primary Care Unavailable NGUYỄN ., MR OLIMPIA Consulting Unavailable RUSTY ., JG Admitting Unavailable RUSTY ., JG Attending Unavailable TRA ALDRIDGE Consulting Unavailable TRA VALE Admitting Unavailable TRA VALE Attending Unavailable NATTY ., DR RODRIGO Kang Primary Care Unavailable TRA VALE Consulting Unavailable TRA VALE Admitting Unavailable TRA VALE Attending Unavailable NATTY ., DR RODRIGO Kang Primary Care Unavailable TRA VALE Consulting Unavailable LAKSHMIPATHY ., NARENDRANATH Admitting Sherly vailable LAKSHMIPATHY ., NARENDJAKE Attending Sherly vailable LUZ ., DR RODRIGO Kang Primary Care Unavailable LAKSHMIPATHY ., AMI Consulting Sherly vailable SOLANO ., DR PAXTON Jarrett Admitting Unavailable SOLANO ., DR PAXTON Jarrett Attending Unavailable LUZ ., DR RODRIGO Kang Primary Care Unavailable SOLANO ., DR PAXTON Jarrett Consulting Unavailable CALLIE, LORI Consulting Unavailable GUSTAVO, ELEN Admitting Unavailable GUSTAVO, ELEN Attending Unavailable LUZ ., DR RODRIGO Kang Primary Care Unavailable BEAR ANTOINE Consulting Unavailable STAINBROOK, TRA Admitting Unavailable STAINBROOK, TRA Attending Unavailable LUZ ., DR RODRIGO Kang Primary Care Unavailable STAINBROOK, TRA Consulting Unavailable STAINBROOK, TRA Admitting Unavailable STAINBROOK, TRA Attending Unavailable LUZ ., DR RODRIGO Kang Primary Care Unavailable STAINBROOK, TRA Consulting Unavailable STAINBROOK, TRA Admitting Unavailable STAINBROOK, TRA Attending Unavailable LUZ ., DR RODRIGO Kang Primary Care Unavailable STAINBROOK, TRA Consulting Unavailable HALKER ., KEESHA Admitting Unavailable HALKER ., KEESHA Attending Unavailable LUZ ., DR RODRIGO Kang Primary Care Unavailable LAKSHMIPATHY ., NARENDRANATH Admitting Sherly vailable LAKSHMIPATHY ., AMI Attending Sherly vailable LUZ ., DR RODRIGO Kang Primary Care Unavailable LAKSHMIPATHY ., NARENDSAMIATH Consulting Sherly vailable LAKSHMIPATHY ., NARENDRANATH Admitting Sherly vailable LAKSHMIPATHY ., AMI Attending Sherly vailable LUZ ., DR RODRIGO Kang Primary Care Unavailable LAKSHMIPATHY ., AMI Consulting Sherly vailable HALKER ., KEESHA Consulting Unavailable SOLANO ., DR PAXTON Jarrett Admitting Unavailable SOLANO ., DR PAXTON Jarrett Attending Unavailable LUZ ., DR RODRIGO Kang Primary Care Unavailable ARCHULETA .FRACISCO Consulting Unavailable LUZ ., DR RODRIGO Kang Admitting Unavailable LUZ ., DR RODRIGO Kang Attending Unavailable LUZ ., DR RODRIGO Kang Primary Care Unavailable LUZ ., DR RODRIGO Kang Consulting Unavailable STAINBROOK, TRA Admitting Unavailable STAINBROOK, TRA Attending Unavailable LUZ ., DR RODRIGO Kang Primary Care Unavailable STAINBROOK, TRA Consulting Unavailable LUZ ., DR RODRIGO Kang Primary Care Unavailable KAOR, PAT Admitting Unavailable PAT HUDDLESTON Attending Unavailable KARO, PAT Consulting Unavailable ARCHULETA ., FRACISCO Admitting Unavailable ARCHULETA ., FRACISCO Attending Unavailable LUZ ., DR RODRIGO Kang Primary Care Unavailable LUZ ., DR RODRIGO Kang Primary Care Unavailable ARCHULETA ., FRACISCO Admitting Unavailable ARCHULETA ., FRACICSO Attending Unavailable LUZ ., DR RODRIGO Kang Admitting Unavailable LUZ ., DR RODRIGO Kang Attending Unavailable LUZ ., DR RODRIGO Kang Primary Care Unavailable LUZ ., DR RODRIGO Kang Consulting Unavailable SOLANO ., DR PAXTON Jarrett Admitting Unavailable SOLANO ., DR PAXTON Jarrett Attending Unavailable LUZ ., DR RODRIGO Kang Primary Care Unavailable ARCHULETA ., FRACISCO Consulting Unavailable German Carrion Primary Care Physician [phone] RODRIGO LUZ Primary Care Unavailable LUZ, RODRIGO Primary Care Unavailable LUZ, RODRIGO Primary Care Unavailable LUZ, RODRIGO Primary Care Unavailable Luz Rodrigo MASON Primary Care Provider RODRIGO LUZ Primary Care Unavailable SELF, SELF Referring Unavailable STAINBROOK JR., TRA Vasquez Attending Unavaila ble STAINBROOK JR., TRA Vasquez Attending Unavaila ble LUZ, RODRIGO Primary Care Unavailable SELF, SELF Referring Unavailable German Carrion E. Attending Unavailable Murali German E. Attending Unavailable Murali German E. Attending Unavailable Murali German E. Attending Unavailable Murali German E. Attending Unavailable Yusuf FINE Attending Unavailable Murali, German E. Referring Unavailable Murali, German E. Admitting Unavailable Murali, German E. Attending Unavailable Murali, German E. Admitting Unavailable Ross, German E. Attending Unavailable Jack, CHARACTER ACTOR Yakelin L Attending Unavailable Jack, CHARACTER ACTOR Yakelin L Admitting Unavailable Jack, CHARACTER ACTOR Yakelin L Attending Unavailable LUZRODRIGO Attending Unavailable LUZRODRIGO VALLADARES Attending Unavailable German Carrion E. Attending Unavailable Allergies Allergy Classification Reported Allergen(s) Allergy Type Date of Onset Reaction(s) Facility adalimumab (1 source) adalimumab; Translations: [HUMIRA] Drug Allergy 8 [facility] Repository Opioid Agonists (1 source) Morphine; Translations: [MORPHINE] Drug Allergy 8 [facility] Repository secukinumab (1 source) secukinumab; Translations: [COSENTYX] Drug Allergy 8 [facility] Repository (20 sources) adalimumab; Translations: [adalimumab] Drug Allergy rash [facility] Work Phone: (20 sources) Morphine; Translations: [morphine] Drug Allergy 1 Unknown (qualifier value) [facility] Work Phone: (20 sources) secukinumab; Translations: [secukinumab] Drug Allergy rash [facility] Work Phone: (1 source) adalimumab Drug Allergy The [facility] Repository (1 source) Morphine Drug Allergy [facility] Repository (1 source) secukinumab Drug Allergy [facility] Repository Medications Current Medications Medication Drug Class(es) Dates Sig (Normalized) Sig (Original) amitriptyline hydrochloride 25 mg oral tablet (8 sources) Tricyclic Antidepressant Start: 11-15-2022 take 2 tablets by mouth once daily at bedtime amitriptyline 25 mg Tab 50 mg = 2 tab(s), Oral, Once a day (at bedtime), # 180 tab(s), Refills(s) 5, Pharmacy: [facility]/pharmacy #[id number], 180.3, cm, 11/15/22 16:44:00 EDT, Height/Length Dosing, 106.5, kg, 11/15/22 16:44:00 EDT, Weight Dosing Start Date: 11/15/22 Status: Ordered Start: 06-20-2020 take 2 tablets by [facility] once daily at bedtime amitriptyline 25 mg Tab 50 mg = 2 tab(s), Oral, Once a day (at bedtime), # 60 tab(s), Refills(s) 5, Pharmacy: [facility]/pharmacy #[id number], 180.3, cm, 10/20/22 8:11:00 EDT, Height/Length Dosing, 109.1, kg, 10/20/22 8:11:00 EDT, Weight Dosing Start Date: 10/30/22 Status: Ordered Amitriptyline HC l Active amLODIPine 5 mg oral tablet (20 sources) Dihydropyridine Calcium Channel Colette Start: 07-26-2022 take 1 tablet by mouth once daily amLODIPine 5 mg Tab 5 mg = 1 tab(s), Oral, Daily, # 90 tab(s), Refills(s) 3, [id number] Start Date: 07/26/22 Status: Ordered take 1 tablet by mouth once nate y amLODIPine 10 MG Tab tablet amlodipine 10 mg tablet Take 1 tablet every day by oral route. 0 Active amLODIPine Benzoate (1 source) amLODIPine Benzoate Active Bisoprolol (1 source) beta-Adrenergic Colette Bisoprolol Fumarate Active bisoprolol fumarate 10 mg / hydroCHLOROthiazide 6.25 mg oral tablet (7 sources) Thiazide Diuretic, beta-Adrenergic Colette Start: 07-10-19 21 take 1 tablet by mouth once daily in the morning bisoprolol-hydroc hlorothiazide 10-6.25 MG per tablet TAKE 1 TABLET BY MOUTH EVERY DAY IN THE MORNING 0 07/09/2020 Active 24 hr buPROPion hydrochloride 150 mg extended release oral tablet (2 sources) Aminoketone Start: 10-24-19 23 take 1 tablet by mouth every twenty-four hours buPROPion 150 mg/24 hours XL Tab 150 mg = 1 tab(s), Oral, q24hr, # 90 tab(s), Refills(s) 0, Pharmacy: [facility]/pharmacy #[id number], 180.3, cm, 10/20/22 8:11:00 EDT, Height/Length Dosing, 109.1, kg, 10/20/22 8:11:00 EDT, Weight Dosing Start Date: 10/23/22 Status: Ordered calcium carbonate 1250 mg / cholecalciferol 200 unt oral tablet (12 sources) Vitamin D Start: 08-26-19 20 take 1 tablet by mouth twice daily Calcium Carbonate-Vitamin D (Oyster Shell Calcium/D) 500-200 MG-UNIT tablet Take 1 tablet by mouth 2 times daily. 0 06/22/2020 Active cetirizine hydrochloride 10 mg oral tablet (20 sources) Histamine-1 Receptor Antagonist Start: 04-15-19 19 take 1 tablet by mouth once daily cetirizine 10 mg Tab 10 mg = 1 tab(s), Oral, Daily, # 90 tab(s), Refills(s) 0, Pharmacy: [facility]/pharmacy #[id number], 180.3, cm, 11/15/22 16:44:00 EDT, Height/Length Dosing, 106.5, kg, 11/15/22 16:44:00 EDT, Weight Dosing Start Date: 11/15/22 Status: Ordered [facility] Active cholecalciferol 0.25 mg oral capsule (20 sources) Vitamin D Start: 05-18-2022 take 1 capsule by mouth every week Cholecalciferol (Vitamin D3) 250 MCG (59085 UT) capsule Indications: Vitamin D deficiency TAKE 1 CAPSULE BY MOUTH ONE TIME PER WEEK 4 capsule 14 05/18/2022 Active Start: 05-11-2021 take 1 capsule by mo uth every week Cholecalciferol ([facility] Vitamin D3) 250 MCG (94373 UT) capsule capsule Indications: Vitamin D deficiency TAKE 1 CAPSULE BY MOUTH ONE TIME PER WEEK 4 capsule 14 05/11/2021 Active Start: 04-28-2020 take 1 capsule by mo uth every week Cholecalciferol ([facility] Vitamin D3) 250 MCG (49350 UT) capsule capsule Indications: Vitamin D deficiency TAKE 1 CAPSULE BY MOUTH ONE TIME PER WEEK 4 capsule 14 04/28/2020 Active Start: 04-21-2019 take 1 capsule by mo uth every week Cholecalciferol ([facility] VITAMIN D3) 250 MCG (39200 UT) Cap capsule Indications: Vitamin D deficiency TAKE 1 CAPSULE BY MOUTH ONCE A WEEK 4 capsule 14 04/21/2019 Active Start: 09-03-2018 End: 09-03-2018 take 2 capsules by mouth once Cholecalciferol (MAXIMUM D3) 41874 units Cap Indications: Vitamin D deficiency 2 po one day a week 10 capsule 11 09/03/2018 Active Start: 04-17-2018 End: 09-03-2018 take 1 capsule by mouth once Cholecalciferol (MAXIMUM D3) 42510 units Cap Indications: Vitamin D deficiency 1 po one day a week 5 capsule 11 04/17/2018 09/03/2018 Discontinued clobetasol propionate 0.5 mg/ml topical cream (7 sources) Corticosteroid Start: 07-03-2022 clobetasol 0.0 5 % Cream Indications: Rash APPLY TO AFFECTED AREAS TWICE A DAY FOR 2 WEEKS 15 g 11 07/03/2022 Active Start: 10-31-2021 clobetasol 0.0 5 % Cream Indications: Rash APPLY TO AFFECTED AREAS TWICE A DAY FOR 2 WEEKS 15 g 11 10/31/2021 Active Start: 03-11-2021 clobetasol 0.0 5 % Cream Indications: Rash APPLY TO AFFECTED AREAS TWICE A DAY FOR 2 WEEKS 15 g 11 03/11/2021 Active Start: 07-12-2020 clobetasol 0.0 5 % Cream Indications: Rash APPLY TO AFFECTED AREAS TWICE A DAY FOR 2 WEEKS 15 g 11 07/12/2020 Active Start: 10-09-2019 clobetasol 0.0 5 % Cream Indications: Rash Apply to affected areas bid for 2 weeks. 1 Tube 11 10/09/2019 Active Clobetasol 17 Pr opionate Active Clobetasol & Clobetasol Emul (1 source) Clobetasol & Clobetasol Emul Active cyclobenzaprine hydrochloride 10 mg oral tablet (2 sources) Muscle Relaxant Start: 023 take 1 tablet by mouth three times daily as needed for muscle spasms cyclobenzaprine 10 mg Tab 10 mg = 1 tab(s), Oral, TID, PRN for spasm, # 30 tab(s), Refills(s) 0 Start Date: 06/15/22 Status: Ordered Diclofenac (1 source) Nonsteroidal Anti-inflammatory Drug Diclofenac Active folic acid 1 mg oral tablet (20 sources) Start: 023 take 1 tablet by mouth once daily Folic acid 1 MG tablet TAKE 1 TABLET BY MOUTH EVERY DAY 30 tablet 08/29/2022 Active Start: 09-26-2021 take 1 tablet by eloy [facility] once daily folic acid 1 MG tablet TAKE 1 TABLET BY MOUTH EVERY DAY 30 tablet 09/26/2021 Active Start: 11-08-2020 take 1 tablet by [facility] once daily folic acid 1 MG tablet TAKE 1 TABLET BY MOUTH EVERY DAY 30 tablet 11/08/2020 Active Start: 01-02-2020 take 1 tablet by [facility] once daily folic acid 1 MG tablet TAKE 1 TABLET BY MOUTH EVERY DAY 30 tablet 01/02/2020 Active Start: 02-25-2019 take 1 tablet by [facility] once daily folic acid 1 MG Tab tablet TAKE 1 TABLET BY MOUTH EVERY DAY 30 tablet 02/25/2019 Active Start: 03-29-2018 take 1 tablet by el[facility] once daily folic acid 1 MG Tab tablet Indications: Psoriatic arthritis , 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 , Psoriatic spondylitis , SAPHO syndrome , Psoriasis , Fatigue, unspecified type , 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 arthritis , 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) , care home current use of 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 , 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, custodial, current use , Long-term current use of high risk medication other than anticoagulant , Lumbosacral spondylosis without myelopathy , Disorder of bone and cartilage , Plaque psoriasis , Cervicalgia , Dorsalgia , Chronic pain of both shoulders , Bilateral elbow joint pain , Bilateral wrist pain , Bilateral hand pain , Chronic pain of both knees 1 po q day 30 tablet 11 03/29/2018 Active Folic Acid Activ e gabapentin 300 mg oral capsule (20 sources) Anti-epileptic Agent Start: 11-15-2022 take 1 capsule by mouth twice daily gabapentin 300 mg Cap 300 mg = 1 cap(s), Oral, BID, # 180 cap(s), Refills(s) 0, [id number] 180.3, cm, 11/15/22 16:44:00 EDT, Height/Length Dosing, 106.5, kg, 11/15/22 16:44:00 EDT, Weight Dosing Start Date: 11/15/22 Status: Ordered Start: 10-30-2022 take 1 capsule by [facility] twice daily gabapentin 300 mg Cap 300 mg = 1 cap(s), Oral, BID, # 60 cap(s), Refills(s) 0, Pharmacy: [facility]/pharmacy #[id number], 180.3, cm, 10/20/22 8:11:00 EDT, Height/Length Dosing, 109.1, kg, 10/20/22 8:11:00 EDT, Weight Dosing Start Date: 10/30/22 Status: Ordered Start: 03-18-2018 take 1 capsule by [facility] once daily in the morning gabapentin 300 MG Cap capsule Take 1 capsule by mouth daily every morning. 0 03/18/2018 Active Gabapentin Activ e halobetasol propionate 0.5 mg/ml topical cream (20 sources) Corticosteroid Start: 07-29-2019 halobetasol 0. 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 , care 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) , 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 arthritis , Vitamin D deficiency , Primary osteoarthritis of both knees , Osteoarthritis of both wrists, unspecified osteoarthritis type , Osteoarthritis of both hips, unspecified osteoarthritis type , Osteoarthritis of both hands, unspecified osteoarthritis type , Osteoarthritis of both glenohumeral joints , Osteoarthritis of both acromioclavicular joints , Osteoarthritis of cervical spine, unspecified spinal osteoarthritis complication status , Impingement syndrome of both shoulders , DDD (degenerative disc disease), cervical Use as directed 50 g 11 07/29/2019 Active Start: 01-07-2019 End: 01-07-2019 halobetasol 0.05 % Cream Ind ications: Psoriatic arthritis , Psoriatic spondylitis , Psoriasis , Plaque psoriasis , Anemia, unspecified type , 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, custodial, current use , Long-term current use of high risk medication other than anticoagulant , care home current use of 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 , 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) , 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 arthritis , Vitamin D deficiency , Primary osteoarthritis of both knees , Osteoarthritis of both wrists, unspecified osteoarthritis type , Osteoarthritis of both hips, unspecified osteoarthritis type , Osteoarthritis of both hands, unspecified osteoarthritis type , Osteoarthritis of both glenohumeral joints , Osteoarthritis of both acromioclavicular joints , Osteoarthritis of cervical spine, unspecified spinal osteoarthritis complication status , Impingement syndrome of both shoulders , DDD (degenerative disc disease), cervical Use as directed 50 g 11 01/08/2019 Active End: 01-07-2019 halobetasol 0.05 % Cream antonina obetasol propionate 0.05 % topical cream APPLY A THIN LAYER TO THE AFFECTED AREA TOPICALLY TWO TIMES DAILY 0 01/07/2019 Discontinued Halobetasol Cr & Lactic Ac Cr (1 source) Halobetasol Cr & Lactic Ac Cr Active hydroCHLOROthiazide 25 mg oral tablet (20 sources) Thiazide Diuretic take 1 tablet by mouth once daily hydrochlorothiazide 25 MG Tab hydrochlorothiazide 25 mg tablet Take 1 tablet every day by oral route. 0 Active hyoscyamine sulfate 0.125 mg oral tablet (5 sources) Start: 2020 take 1 tablet by mouth every six hours as needed for pain hyoscyamine 0.125 MG tablet TAKE 1 TABLET BY MOUTH EVERY 6 HOURS NEEDED FOR ABDOMINAL PAIN 0 06/13/2020 Active 1 ml ixekizumab 80 mg/ml auto-injector (6 sources) Interleukin-17A Antagonist Start: 2021 Taltz 80 MG/ML Solution Auto-injector Talolimpia Active Meclizine (1 source) Antiemetic Meclizine HCl Ac tive methotrexate 2.5 mg oral tablet (20 sources) Folate Analog Metabolic Inhibitor Start: take 7 tablets by mouth every week methotrexate 2.5 MG tablet TAKE 7 TABLETS BY MOUTH ONE TIME PER WEEK 28 tablet 7 10/04/2022 Active Start: 03-15-2022 take 7 tablets by mo uth every week methotrexate 2.5 MG tablet TAKE 7 TABLETS BY MOUTH ONE TIME PER WEEK 28 tablet 7 03/15/2022 Active Start: 08-02-2021 take 7 tablets by mo uth every week methotrexate 2.5 MG tablet TAKE 7 TABLETS BY MOUTH ONE TIME PER WEEK 28 tablet 7 08/02/2021 Active Start: 01-18-2021 take 7 tablets by mo uth every week methotrexate 2.5 MG tablet TAKE 7 TABLETS BY MOUTH ONE TIME PER WEEK 28 tablet 7 01/18/2021 Active Start: 06-21-2020 take 7 tablets by mo uth every week methotrexate 2.5 MG tablet TAKE 7 TABLETS BY MOUTH ONE TIME PER WEEK 28 tablet 7 06/21/2020 Active Start: 10-29-2019 take 7 tablets by mo uth every week methotrexate 2.5 MG tablet TAKE 7 TABLETS BY MOUTH ONCE A WEEK 28 tablet 7 10/29/2019 Active Start: 03-12-2019 take 7 tablets by mo uth every week methotrexate 2.5 MG tablet TAKE 7 TABLETS BY MOUTH ONCE A WEEK 28 tablet 7 03/12/2019 Active Start: 09-03-2018 take 7 tablets by mouth once m ethotrexate 2.5 MG Tab Indications: Psoriatic arthritis , 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 , Psoriatic spondylitis , 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 arthritis , 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) , 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 , Long-term current use of high risk medication other than anticoagulant , 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, long term care pharmacist, current use , Noncompliance , Patient non adherence , Vitamin D deficiency , DDD (degenerative disc disease), cervical , Impingement syndrome of both shoulders , Lumbosacral spondylosis without myelopathy , Osteoarthritis of cervical spine, unspecified spinal osteoarthritis complication status , Osteoarthritis of both acromioclavicular joints , Osteoarthritis of both glenohumeral joints , Osteoarthritis of both hands, unspecified osteoarthritis type , Osteoarthritis of both hips, unspecified osteoarthritis type , Osteoarthritis of both wrists, unspecified osteoarthritis type , Primary osteoarthritis of both knees , Plaque psoriasis , Psoriasis 7 po one day a week 35 tablet 5 09/03/2018 Active Start: 05-03-2018 End: 09-03-2018 take 6 tablets by mouth once methotrexate 2.5 MG Tab Indications: Psoriatic arthritis , 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 , Psoriatic spondylitis , SAPHO syndrome , Psoriasis , Anemia, unspecified type , care 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) , care home current use of 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 , 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, custodial, current use , Long-term current use of high risk medication other than anticoagulant , Vitamin D deficiency , Lumbosacral spondylosis without myelopathy , Osteoarthritis of cervical spine, unspecified spinal osteoarthritis complication status , DDD (degenerative disc disease), cervical , Osteoarthritis of both hips, unspecified osteoarthritis type , Osteoarthritis of both acromioclavicular joints , Osteoarthritis of both glenohumeral joints , Impingement syndrome of both shoulders , Primary osteoarthritis of both knees , Osteoarthritis of both wrists, unspecified osteoarthritis type , Osteoarthritis of both hands, unspecified osteoarthritis type , Plaque psoriasis 6 po one day a week 30 tablet 5 05/03/2018 09/03/2018 Discontinued Start: 03-29-2018 End: 09-03-2018 take 3 tablets by mouth once daily methotrexate 2.5 MG tablet TAKE 3 TABLETS BY MOUTH ONE DAY A WEEK. 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 , care 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) , 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 arthritis , Vitamin D deficiency , Primary osteoarthritis of both knees , Osteoarthritis of both wrists, unspecified osteoarthritis type , Osteoarthritis of both hips, unspecified osteoarthritis type , Osteoarthritis of both hands, unspecified osteoarthritis type , Osteoarthritis of both glenohumeral joints , Osteoarthritis of both acromioclavicular joints , Osteoarthritis of cervical spine, unspecified spinal osteoarthritis complication status , Impingement syndrome of both shoulders , DDD (degenerative disc disease), cervical 4 po q AM 120 tablet 5 01/08/2019 Active Start: 09-03-2018 End: 01-07-2019 take 1 tablet by mouth once in the morning predniSONE 5 MG Tab tablet Indications: Psoriatic arthritis , 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 , Psoriatic spondylitis , 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 arthritis , care 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) , care home current use of 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 , Long-term current use of high risk medication other than anticoagulant , 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, long term care pharmacist, current use , Noncompliance , Patient non adherence , Vitamin D deficiency , DDD (degenerative disc disease), cervical , Impingement syndrome of both shoulders , Lumbosacral spondylosis without myelopathy , Osteoarthritis of cervical spine, unspecified spinal osteoarthritis complication status , Osteoarthritis of both acromioclavicular joints , Osteoarthritis of both glenohumeral joints , Osteoarthritis of both hands, unspecified osteoarthritis type , Osteoarthritis of both hips, unspecified osteoarthritis type , Osteoarthritis of both wrists, unspecified osteoarthritis type , Primary osteoarthritis of both knees , Plaque psoriasis , Psoriasis 1 po q AM 30 tablet 5 09/03/2018 01/07/2019 Discontinued Start: 05-03-2018 End: 09-03-2018 predniSONE 5 MG Tab tablet I ndications: Psoriatic arthritis , 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 , Psoriatic spondylitis , SAPHO syndrome , Psoriasis , Anemia, unspecified type , care 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) , care home current use of 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 , 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, custodial, current use , Long-term current use of high risk medication other than anticoagulant , Vitamin D deficiency , Lumbosacral spondylosis without myelopathy , Osteoarthritis of cervical spine, unspecified spinal osteoarthritis complication status , DDD (degenerative disc disease), cervical , Osteoarthritis of both hips, unspecified osteoarthritis type , Osteoarthritis of both acromioclavicular joints , Osteoarthritis of both glenohumeral joints , Impingement syndrome of both shoulders , Primary osteoarthritis of both knees , Osteoarthritis of both wrists, unspecified osteoarthritis type , Osteoarthritis of both hands, unspecified osteoarthritis type , Plaque psoriasis 4 po q AM decrease by 5 mg q 2 wks down to 1 po every other day for 2 wks then stop 120 tablet 5 05/03/2018 09/03/2018 Discontinued Start: 03-29-2018 End: 05-03-2018 predniSONE 20 MG Tab tablet Indications: Psoriatic arthritis , 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 , Psoriatic spondylitis , SAPHO syndrome , Psoriasis , Fatigue, unspecified type , 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 arthritis , care 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) , 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 , 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, long term care pharmacist, current use , Long-term current use of high risk medication other than anticoagulant , Lumbosacral spondylosis without myelopathy , Disorder of bone and cartilage , Plaque psoriasis , Cervicalgia , Dorsalgia , Chronic pain of both shoulders , Bilateral elbow joint pain , Bilateral wrist pain , Bilateral hand pain , Chronic pain of both knees 3 po q AM times one day 3 tablet 0 03/29/2018 05/03/2018 Discontinued sildenafil 25 mg oral tablet (2 sources) Phosphodiesterase 5 Inhibitor Start: 06-15-2022 take 1 tablet by mouth once daily as needed sildenafil 25 mg Tab 25 mg = 1 tab(s), Oral, Daily, PRN for erectile dysfunction, Refills(s) 0 Start Date: 06/15/22 Status: Ordered triamcinolone acetonide 0.001 mg/mg topical ointment (20 sources) Corticosteroid Start: 11-24-2022 triamcinolone 0.1 % Ointment ointment Indications: Psoriatic arthritis , Psoriatic spondylitis , Psoriasis , Plaque psoriasis , Anemia, unspecified type , 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, long term care pharmacist, current use , Long-term current use of high risk medication other than anticoagulant , care home current use of 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 , 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) , 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 arthritis , Vitamin D deficiency , Primary osteoarthritis of both knees , Osteoarthritis of both wrists, unspecified osteoarthritis type , Osteoarthritis of both hips, unspecified osteoarthritis type , Osteoarthritis of both hands, unspecified osteoarthritis type , Osteoarthritis of both glenohumeral joints , Osteoarthritis of both acromioclavicular joints , Osteoarthritis of cervical spine, unspecified spinal osteoarthritis complication status , Impingement syndrome of both shoulders , DDD (degenerative disc disease), cervical APPLY TO AFFECTED AREA TWICE A DAY NEEDED 80 g 11 11/24/2022 Active Start: 10-04-2022 triamcinolone 0.1 % Cream cream Indications: Psoriatic arthritis , Psoriatic spondylitis , Psoriasis , Plaque psoriasis , Anemia, unspecified type , 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, custodial, current use , Long-term current use of high risk medication other than anticoagulant , care home current use of 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 , care 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) , 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 arthritis , Vitamin D deficiency , Primary osteoarthritis of both knees , Osteoarthritis of both wrists, unspecified osteoarthritis type , Osteoarthritis of both hips, unspecified osteoarthritis type , Osteoarthritis of both hands, unspecified osteoarthritis type , Osteoarthritis of both glenohumeral joints , Osteoarthritis of both acromioclavicular joints , Osteoarthritis of cervical spine, unspecified spinal osteoarthritis complication status , Impingement syndrome of both shoulders , DDD (degenerative disc disease), cervical APPLY TO AFFECTED AREA TWICE A DAY NEEDED 45 g 3 10/04/2022 Active Start: 06-13-2022 triamcinolone 0.1 % Ointment ointment Indications: Psoriatic arthritis , Psoriatic spondylitis , Psoriasis , Plaque psoriasis , Anemia, unspecified type , 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, long term care pharmacist, current use , Long-term current use of high risk medication other than anticoagulant , care home current use of 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 , care 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) , 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 arthritis , Vitamin D deficiency , Primary osteoarthritis of both knees , Osteoarthritis of both wrists, unspecified osteoarthritis type , Osteoarthritis of both hips, unspecified osteoarthritis type , Osteoarthritis of both hands, unspecified osteoarthritis type , Osteoarthritis of both glenohumeral joints , Osteoarthritis of both acromioclavicular joints , Osteoarthritis of cervical spine, unspecified spinal osteoarthritis complication status , Impingement syndrome of both shoulders , DDD (degenerative disc disease), cervical apply bid prn 80 g 11 06/13/2022 Active Start: 03-28-2022 triamcinolone 0.1 % Cream cream Indications: Psoriatic arthritis , Psoriatic spondylitis , Psoriasis , Plaque psoriasis , Anemia, unspecified type , 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, long term care pharmacist, current use , Long-term current use of high risk medication other than anticoagulant , care home current use of 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 , care 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) , 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 arthritis , Vitamin D deficiency , Primary osteoarthritis of both knees , Osteoarthritis of both wrists, unspecified osteoarthritis type , Osteoarthritis of both hips, unspecified osteoarthritis type , Osteoarthritis of both hands, unspecified osteoarthritis type , Osteoarthritis of both glenohumeral joints , Osteoarthritis of both acromioclavicular joints , Osteoarthritis of cervical spine, unspecified spinal osteoarthritis complication status , Impingement syndrome of both shoulders , DDD (degenerative disc disease), cervical APPLY TO AFFECTED AREA TWICE A DAY NEEDED 45 g 3 03/28/2022 Active Start: 12-19-2021 triamcinolone 0.1 % Cream cream Indications: Psoriatic arthritis , Psoriatic spondylitis , Psoriasis , Plaque psoriasis , Anemia, unspecified type , 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, long term care pharmacist, current use , Long-term current use of high risk medication other than anticoagulant , care home current use of 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 , 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) , 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 arthritis , Vitamin D deficiency , Primary osteoarthritis of both knees , Osteoarthritis of both wrists, unspecified osteoarthritis type , Osteoarthritis of both hips, unspecified osteoarthritis type , Osteoarthritis of both hands, unspecified osteoarthritis type , Osteoarthritis of both glenohumeral joints , Osteoarthritis of both acromioclavicular joints , Osteoarthritis of cervical spine, unspecified spinal osteoarthritis complication status , Impingement syndrome of both shoulders , DDD (degenerative disc disease), cervical APPLY TO AFFECTED AREA TWICE A DAY NEEDED 45 g 3 12/19/2021 Active Start: 10-31-2021 triamcinolone 0.1 % Ointment ointment Indications: Psoriatic arthritis , Psoriatic spondylitis , Psoriasis , Plaque psoriasis , Anemia, unspecified type , 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, long term care pharmacist, current use , Long-term current use of high risk medication other than anticoagulant , care home current use of 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 , care 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) , 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 arthritis , Vitamin D deficiency , Primary osteoarthritis of both knees , Osteoarthritis of both wrists, unspecified osteoarthritis type , Osteoarthritis of both hips, unspecified osteoarthritis type , Osteoarthritis of both hands, unspecified osteoarthritis type , Osteoarthritis of both glenohumeral joints , Osteoarthritis of both acromioclavicular joints , Osteoarthritis of cervical spine, unspecified spinal osteoarthritis complication status , Impingement syndrome of both shoulders , DDD (degenerative disc disease), cervical APPLY TO AFFECTED AREA TWICE A DAY NEEDED 80 g 10/31/2021 Active Start: 02-11-2021 End: 07-12-2021 triamcinolone 0.1 % Cream cr ea Indications: Psoriatic arthritis , Psoriatic spondylitis , Psoriasis , Plaque psoriasis , Anemia, unspecified type , 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, long term care pharmacist, current use , Long-term current use of high risk medication other than anticoagulant , 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 , care 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) , 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 arthritis , Vitamin D deficiency , Primary osteoarthritis of both knees , Osteoarthritis of both wrists, unspecified osteoarthritis type , Osteoarthritis of both hips, unspecified osteoarthritis type , Osteoarthritis of both hands, unspecified osteoarthritis type , Osteoarthritis of both glenohumeral joints , Osteoarthritis of both acromioclavicular joints , Osteoarthritis of cervical spine, unspecified spinal osteoarthritis complication status , Impingement syndrome of both shoulders , DDD (degenerative disc disease), cervical APPLY TO AFFECTED AREA TWICE A DAY NEEDED 15 g 07/12/2021 Active Start: 12-07-2020 triamcinolone 0.1 % Ointment ointment Indications: Psoriatic arthritis , Psoriatic spondylitis , Psoriasis , Plaque psoriasis , Anemia, unspecified type , 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, custodial, current use , Long-term current use of high risk medication other than anticoagulant , care home current use of 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 , care 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) , 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 arthritis , Vitamin D deficiency , Primary osteoarthritis of both knees , Osteoarthritis of both wrists, unspecified osteoarthritis type , Osteoarthritis of both hips, unspecified osteoarthritis type , Osteoarthritis of both hands, unspecified osteoarthritis type , Osteoarthritis of both glenohumeral joints , Osteoarthritis of both acromioclavicular joints , Osteoarthritis of cervical spine, unspecified spinal osteoarthritis complication status , Impingement syndrome of both shoulders , DDD (degenerative disc disease), cervical APPLY TO AFFECTED AREA TWICE A DAY NEEDED 80 g 12/07/2020 Active Start: 12-30-2019 triamcinolone 0.1 % Cream cream Indications: Psoriatic arthritis , Psoriatic spondylitis , Psoriasis , Plaque psoriasis , Anemia, unspecified type , 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, long term care pharmacist, current use , Long-term current use of high risk medication other than anticoagulant , 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 , 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) , 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 arthritis , Vitamin D deficiency , Primary osteoarthritis of both knees , Osteoarthritis of both wrists, unspecified osteoarthritis type , Osteoarthritis of both hips, unspecified osteoarthritis type , Osteoarthritis of both hands, unspecified osteoarthritis type , Osteoarthritis of both glenohumeral joints , Osteoarthritis of both acromioclavicular joints , Osteoarthritis of cervical spine, unspecified spinal osteoarthritis complication status , Impingement syndrome of both shoulders , DDD (degenerative disc disease), cervical Apply bid PRB 1 Tube 12/30/2019 Active Start: 12-30-2019 triamcinolone 0.1 % Ointment ointment Indications: Psoriatic arthritis , Psoriatic spondylitis , Psoriasis , Plaque psoriasis , Anemia, unspecified type , 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, long term care pharmacist, current use , Long-term current use of high risk medication other than anticoagulant , care home current use of 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 , 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) , 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 arthritis , Vitamin D deficiency , Primary osteoarthritis of both knees , Osteoarthritis of both wrists, unspecified osteoarthritis type , Osteoarthritis of both hips, unspecified osteoarthritis type , Osteoarthritis of both hands, unspecified osteoarthritis type , Osteoarthritis of both glenohumeral joints , Osteoarthritis of both acromioclavicular joints , Osteoarthritis of cervical spine, unspecified spinal osteoarthritis complication status , Impingement syndrome of both shoulders , DDD (degenerative disc disease), cervical Apply bid PRN 1 Tube 12/30/2019 Active Start: 01-07-2019 End: 01-07-2019 triamcinolone 0.1 % Cream cr ea Indications: Psoriatic arthritis , Psoriatic spondylitis , Psoriasis , Plaque psoriasis , Anemia, unspecified type , 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, custodial, current use , Long-term current use of high risk medication other than anticoagulant , care home current use of 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 , 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) , 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 arthritis , Vitamin D deficiency , Primary osteoarthritis of both knees , Osteoarthritis of both wrists, unspecified osteoarthritis type , Osteoarthritis of both hips, unspecified osteoarthritis type , Osteoarthritis of both hands, unspecified osteoarthritis type , Osteoarthritis of both glenohumeral joints , Osteoarthritis of both acromioclavicular joints , Osteoarthritis of cervical spine, unspecified spinal osteoarthritis complication status , Impingement syndrome of both shoulders , DDD (degenerative disc disease), cervical Apply bid PRB 1 Tube 11 01/08/2019 Active Start: 01-07-2019 End: 01-07-2019 triamcinolone 0.1 % Ointment ointment Indications: Psoriatic arthritis , Psoriatic spondylitis , Psoriasis , Plaque psoriasis , Anemia, unspecified type , 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, custodial, current use , Long-term current use of high risk medication other than anticoagulant , care home current use of 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 , 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) , 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 arthritis , Vitamin D deficiency , Primary osteoarthritis of both knees , Osteoarthritis of both wrists, unspecified osteoarthritis type , Osteoarthritis of both hips, unspecified osteoarthritis type , Osteoarthritis of both hands, unspecified osteoarthritis type , Osteoarthritis of both glenohumeral joints , Osteoarthritis of both acromioclavicular joints , Osteoarthritis of cervical spine, unspecified spinal osteoarthritis complication status , Impingement syndrome of both shoulders , DDD (degenerative disc disease), cervical Apply bid PRN 1 Tube 11 01/08/2019 Active triamcinolone 0. 1 % Cream cream triamcinolone acetonide 0.1 % topical cream apply a thin layer to the affected area(s) by topical route 2 times per day 0 Active Triamcinolone & Bupiv & Lido (1 source) Triamcinolone & Bupiv & Lido Active vitamin B12 (1 source) Vitamin B12 Vitamin B12 Acti ve Vitamin D3 (1 source) Vitamin D3 Activ e Completed/Discontinued Medications Medication Drug Class(es) Dates Sig (Normalized) Sig (Original) acetaminophen 325 mg / HYDROcodone bitartrate 5 mg oral tablet (10 sources) Opioid Agonist End: 05-03-2018 take 1 tablet by mouth three times daily as needed hydroCODone-acetami nophen 5-325 MG Tab tablet hydrocodone 5 mg-acetaminophen 325 mg tablet Take 1 tablet 3 times a day by oral route as needed. 05/03/2018 Discontinued Dosoquin 5500-200 Unit-[facility] Po Tabs (6 sources) Start: 04-01-2018 End: 04-17-2018 take 1 tablet by mouth once daily Vitamin D-Vitamin K (DOSOQUIN) 5500-200 UNIT-MCG Tab Indications: Vitamin D deficiency 1 po q day 30 tablet 11 04/01/2018 04/17/2018 Discontinued Start: 04-01-2018 take 1 tablet by eloy th once daily Vitamin D-Vitamin K (DOSOQUIN) 5500-200 UNIT-MCG Tab Indications: Vitamin D deficiency 1 po q day 30 tablet 11 04/01/2018 Active fluticasone propionate 0.05 mg/actuat metered dose nasal spray (20 sources) Corticosteroid Start: 07-02-2022 fluticasone Na corina 0.05 mg/inh [place] See Instructions, 16 mL, Refill(s) 0, SPRAY 2 SPRAYS INTO EACH NOSTRIL DAILY, [id number] Start Date: 07/02/22 Status: Ordered Start: 04-15-2018 take 2 spray(s) nasa l route once daily fluticasone 50 MCG/ACT Suspension nasal spray USE 2 SPRAYS IN EACH NOSTRIL DAILY 5 04/15/2018 Active Fluticasone Furo ate Active ibuprofen 800 mg oral tablet (20 sources) Nonsteroidal Anti-inflammatory Drug Start: 03-15-2018 End: 09-09-2019 take 1 tablet by mouth every eight hours ibuprofen 800 MG Tab Take 800 mg by mouth every 8 hours. 1 03/15/2018 09/09/2019 Discontinued (Medication Reconciliation (suppress cancel msg)) ipratropium bromide 0.021 mg/actuat metered dose nasal spray (3 sources) Anticholinergic Start: 07-05-2022 Ipratropium Brom gabriele Active memantine hydrochloride 5 mg oral tablet (1 source) C-umyfzu-Z-aspartate Receptor Antagonist Start: 04-06-2018 End: 05-03-2018 memantine 5 MG Tab tablet oxyCODONE hydrochloride 5 mg oral tablet (1 source) Opioid Agonist Start: 04-06-2018 End: 05-03-2018 oxyCODONE 5 MG Tab tablet sulindac 200 mg oral tablet (8 sources) Nonsteroidal Anti-inflammatory Drug Start: 07-25-2022 End: 01-23-2023 take 1 mg by mouth every other day as needed sulindac 200 MG tablet Indications: Psoriatic arthritis , 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 , Psoriatic spondylitis , Macrocytic anemia , Plaque psoriasis , Psoriasis , SAPHO syndrome , History of kidney stones , 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 arthritis , 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) , Long-term current use of high risk medication other than anticoagulant , 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, custodial, current use , Abnormal renal function test , Vitamin D deficiency , DDD (degenerative disc disease), cervical , Impingement syndrome of both shoulders , Osteoarthritis of cervical spine, unspecified spinal osteoarthritis complication status , Osteoarthritis of both acromioclavicular joints , Osteoarthritis of both glenohumeral joints , Osteoarthritis of both hands, unspecified osteoarthritis type , Osteoarthritis of both hips, unspecified osteoarthritis type , Osteoarthritis of both wrists, unspecified osteoarthritis type , Primary osteoarthritis of both knees 1 po every other day PRN 15 tablet 11 07/25/2022 01/23/2023 Discontinued Start: 01-10-2022 End: 07-25-2022 take 1 tablet by mouth once daily as needed sulindac 200 MG tablet Indications: Renal function test abnormal 1 po q day PRN 30 tablet 11 01/10/2022 07/25/2022 Discontinued Start: 08-13-2019 End: 01-10-2022 take 1 tablet by mouth twice daily at mealtime sulindac 200 MG tablet TAKE 1 TABLET BY MOUTH TWICE A DAY WITH FOOD 0 08/13/2019 01/10/2022 Discontinued tazarotene 1 mg/ml topical cream (3 sources) Retinoid Start: 06-17-2020 End: 07-12-2021 tazarotene 0.1 % Cream MIX WITH CLOBETASOL OINTMENT AND APPLY DAILY 0 06/17/2020 07/12/2021 Discontinued Tazarotene Activ e 1 ml ustekinumab 90 mg/ml prefilled syringe (20 sources) Interleukin-12 Antagonist, Interleukin-23 Antagonist Start: 06-16-2020 End: 01-10-2022 ustekinumab 90 MG/ML Solution Prefilled Syringe injection Indications: Psoriatic arthritis , 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 , Psoriatic spondylitis , SAPHO syndrome , Psoriasis , Anemia, unspecified type , care 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) , 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 , 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, custodial, current use , Long-term current use of high risk medication other than anticoagulant , Vitamin D deficiency , Lumbosacral spondylosis without myelopathy , Osteoarthritis of cervical spine, unspecified spinal osteoarthritis complication status , DDD (degenerative disc disease), cervical , Osteoarthritis of both hips, unspecified osteoarthritis type , Osteoarthritis of both acromioclavicular joints , Osteoarthritis of both glenohumeral joints , Impingement syndrome of both shoulders , Primary osteoarthritis of both knees , Osteoarthritis of both wrists, unspecified osteoarthritis type , Osteoarthritis of both hands, unspecified osteoarthritis type , Plaque psoriasis 90 mg injection every 12 weeks 1 Syringe 11 06/16/2020 01/10/2022 Discontinued Start: 06-04-2019 ustekinumab 90 MG/ML Solution Prefilled Syringe injection Indications: Psoriatic arthritis , 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 , Psoriatic spondylitis , SAPHO syndrome , Psoriasis , Anemia, unspecified type , 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) , care home current use of 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 , 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, custodial, current use , Long-term current use of high risk medication other than anticoagulant , Vitamin D deficiency , Lumbosacral spondylosis without myelopathy , Osteoarthritis of cervical spine, unspecified spinal osteoarthritis complication status , DDD (degenerative disc disease), cervical , Osteoarthritis of both hips, unspecified osteoarthritis type , Osteoarthritis of both acromioclavicular joints , Osteoarthritis of both glenohumeral joints , Impingement syndrome of both shoulders , Primary osteoarthritis of both knees , Osteoarthritis of both wrists, unspecified osteoarthritis type , Osteoarthritis of both hands, unspecified osteoarthritis type , Plaque psoriasis 90 mg injection every 12 weeks 1 Syringe 11 06/04/2019 Active Start: 05-03-2018 End: 05-29-2018 ustekinumab 90 MG/ML Solutio n Prefilled Syringe injection Indications: Psoriatic arthritis , 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 , Psoriatic spondylitis , SAPHO syndrome , Psoriasis , Anemia, unspecified type , 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) , care home current use of 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 , 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, long term care pharmacist, current use , Long-term current use of high risk medication other than anticoagulant , Vitamin D deficiency , Lumbosacral spondylosis without myelopathy , Osteoarthritis of cervical spine, unspecified spinal osteoarthritis complication status , DDD (degenerative disc disease), cervical , Osteoarthritis of both hips, unspecified osteoarthritis type , Osteoarthritis of both acromioclavicular joints , Osteoarthritis of both glenohumeral joints , Impingement syndrome of both shoulders , Primary osteoarthritis of both knees , Osteoarthritis of both wrists, unspecified osteoarthritis type , Osteoarthritis of both hands, unspecified osteoarthritis type , Plaque psoriasis 90 mg injection every 12 weeks 1 Syringe 11 05/29/2018 Active Start: 03-29-2018 End: 05-29-2018 ustekinumab 90 MG/ML Solutio n Prefilled Syringe injection Indications: Psoriatic arthritis , 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 , Psoriatic spondylitis , SAPHO syndrome , Psoriasis , Anemia, unspecified type , care 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) , care home current use of 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 , 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, custodial, current use , Long-term current use of high risk medication other than anticoagulant , Vitamin D deficiency , Lumbosacral spondylosis without myelopathy , Osteoarthritis of cervical spine, unspecified spinal osteoarthritis complication status , DDD (degenerative disc disease), cervical , Osteoarthritis of both hips, unspecified osteoarthritis type , Osteoarthritis of both acromioclavicular joints , Osteoarthritis of both glenohumeral joints , Impingement syndrome of both shoulders , Primary osteoarthritis of both knees , Osteoarthritis of both wrists, unspecified osteoarthritis type , Osteoarthritis of both hands, unspecified osteoarthritis type , Plaque psoriasis 90 mg injection day 1 then 4 weeks later than every 12 weeks thereafter 1 Syringe 11 05/29/2018 Active Start: 03-29-2018 End: 03-29-2018 ustekinumab Solution Prefill ed Syringe injection Indications: Psoriatic arthritis , 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 , Psoriatic spondylitis , SAPHO syndrome , Psoriasis , Fatigue, unspecified type , 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 arthritis , 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 Start on 05/02/18 1 Syringe 03/29/2018 Active Problems Active Problems Problem Classification Problem Date Documented Date Episodic/Chronic Anxiety disorders (2 sources) Anxiety 06-15-2022 Chronic Calculus of urinary tract (11 sources) History of calculus of kidney; Translations: [Personal history of urinary calculi] Onset: 2 Episodic Coronary atherosclerosis and other heart disease (2 sources) Coronary atherosclerosis 06-15-2022 Chronic Essential hypertension (20 sources) Hypertensive disorder; Translations: [Essential hypertension] Onset: 7 03-29-2018 Chronic Infective arthritis and osteomyelitis (except that caused by tuberculosis or sexually transmitted disease) (3 sources) Osteomyelitis, unspecified; Translations: [OSTEOMYELITIS UNSPECIFIED] Onset: 8 Chronic Inflammatory conditions of male genital organs (2 sources) Balanitis; 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] Chronic Nutritional deficiencies (20 sources) Vitamin D deficiency; Translations: [Vitamin D deficiency, unspecified] Onset: 9 05-03-2018 Chronic Osteoarthritis (20 sources) Degenerative joint disease of hand; 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] Onset: 9 05-03-2018 Chronic Osteoarthritis (20 sources) Osteoarthritis of bilateral acromioclavicular joints; Translations: [Osteoarthritis of bilateral glenohumeral joints] Onset: 9 05-03-2018 Other aftercare (20 sources) care home methotrexate user; Translations: [Other custodial (current) drug therapy] Onset: 8 03-29-2018 Episodic Other aftercare (8 sources) Drug therapy finding; Translations: [Other custodial (current) drug therapy] Onset: 8 Episodic Other aftercare (3 sources) Other custodial (current) drug therapy; Translations: [OTH 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 CURRENT DRUG THERAPY] Onset: 8 Episodic Other bone disease and musculoskeletal deformities (20 sources) Osteochondropathy; Translations: [Disorder of bone and cartilage] Onset: 8 03-29-2018 Chronic Other bone disease and musculoskeletal deformities (9 sources) Disorder of skeletal system; Translations: [Disorder of bone and cartilage] Onset: 8 03-29-2018 Chronic Other bone disease and musculoskeletal deformities (3 sources) Other specified disorders of bone density and structure, unspecified site; Translations: [OTH D/O BONE DEN STRUCT UNS SITE] Onset: 8 Episodic Other connective tissue disease (20 sources) SAPHO syndrome; Translations: [Synovitis and tenosynovitis, unspecified] Onset: 7 03-29-2018 Episodic Other connective tissue disease (20 sources) H/O: arthritis; Translations: [Personal history of diseases of the skin and subcutaneous tissue] Onset: 8 03-29-2018 Episodic Other connective tissue disease (20 sources) Impingement syndrome of right shoulder; Translations: [Bilateral impingement syndrome of shoulders] Onset: 9 05-03-2018 Episodic Other connective tissue disease (1 source) Myalgia, other site; Translations: [MYALGIA OTHER SITE] Onset: 3 Episodic Other connective tissue disease (3 sources) Synovitis and tenosynovitis, unspecified; Translations: [SYNOVITIS AND TENOSYNOVITIS UNS] Onset: 8 Episodic Other connective tissue disease (5 sources) Other muscle spasm; Translations: [OTHER MUSCLE SPASM] Onset: 2 Episodic Other connective tissue disease (3 sources) Impingement syndrome of left shoulder; Translations: [IMPINGEMENT SYNDROME LEFT SHOULDER] Onset: 9 Episodic Other connective tissue disease (20 sources) Bilateral impingement syndrome of shoulders; Translations: [Impingement syndrome of both shoulders] Onset: 9 05-03-2018 Other hematologic conditions (1 source) Macrocytosis 11-06-2022 Chronic Other inflammatory condition of skin (20 sources) Psoriasis; Translations: [Psoriasis, unspecified] Onset: 8 03-29-2018 Chronic Other inflammatory condition of skin (20 sources) Psoriatic spondylitis; 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] Onset: 7 03-29-2018 Chronic Other inflammatory condition of skin (20 sources) Distal interphalangeal psoriatic arthropathy; Translations: [Psoriatic arthritis with distal interphalangeal joint involvement] Onset: 7 03-29-2018 Chronic Other inflammatory condition of skin (20 sources) Plaque psoriasis; Translations: [Psoriasis vulgaris] Onset: 6 03-29-2018 Chronic Other inflammatory condition of skin (20 sources) Arthropathic psoriasis, unspecified; Translations: [Psoriatic arthritis] Onset: 7 03-29-2018 Chronic Other inflammatory condition of skin (3 sources) Pustulosis palmaris et plantaris; Translations: [PUSTULOSIS PALMARIS ET PLANTARIS] Onset: 8 Chronic Other inflammatory condition of skin (3 sources) Psoriasis, unspecified; Translations: [PSORIASIS UNSPECIFIED] Onset: 8 Chronic Other inflammatory condition of skin (7 sources) Psoriasis vulgaris; Translations: [PSORIASIS VULGARIS] Onset: 8 Chronic Other injuries and conditions due to external causes (1 source) Contusion 11-15-2022 Episodic Other nervous system disorders (4 sources) Chronic pain syndrome; Translations: [Chronic pain syndrome] Onset: 7 03-29-2018 Chronic Other nervous system disorders (1 source) Other chronic pain; Translations: [OTHER CHRONIC PAIN] Onset: 2 Chronic Other nutritional; endocrine; and metabolic disorders (20 sources) Morbid obesity; Translations: [Obesity, morbid, BMI 40.0-49.9] Onset: 9 05-03-2018 Chronic Other nutritional; endocrine; and metabolic disorders (4 sources) Body mass index 40+ - severely obese; Translations: [Morbid (severe) obesity due to excess calories] Onset: 9 05-03-2018 Chronic Other nutritional; endocrine; and metabolic disorders (2 sources) Obesity 06-15-2022 Chronic Other skin disorders (3 sources) Acne, unspecified; Translations: [ACNE UNSPECIFIED] Onset: 8 Episodic Other skin disorders (3 sources) Personal history of diseases of the skin and subcutaneous tissue; Translations: [PERS HX DZ SKIN AND SUBCUTANEOUS TISSUE] Onset: 8 Episodic Other upper respiratory disease (2 sources) Allergic rhinitis 06-15-2022 Chronic Residual codes; unclassified (2 sources) Sleep disorder 06-15-2022 Episodic Screening and history of mental health and substance abuse codes (1 source) Personal history of nicotine dependence; Translations: [PERSONAL HISTORY OF NICOTINE DEPEND] Onset: 3 Episodic Spondylosis; intervertebral disc disorders; other back problems (20 sources) Lumbosacral spondylosis without myelopathy; Translations: [Degeneration of cervical intervertebral disc] Onset: 8 03-29-2018 Chronic Unclassified (20 sources) Drug therapy finding; Translations: [Long-term current use of high risk medication other than anticoagulant] Onset: 8 03-29-2018 Unclassified (20 sources) Patient encounter status; 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)] Onset: 7 03-29-2018 Unclassified (15 sources) Bilateral hand pain; Translations: [Bilateral hand pain] Onset: 8 03-29-2018 Unclassified (15 sources) Bilateral wrist pain; Translations: [Bilateral wrist pain] Onset: 8 03-29-2018 Unclassified (15 sources) Bilateral elbow joint pain; Translations: [Bilateral elbow joint pain] Onset: 8 03-29-2018 Unclassified (16 sources) Patient noncompliance - general; Translations: [Patient non adherence] Onset: 9 09-03-2018 Unclassified (4 sources) LOW BACK PAIN, UNSPECIFIED; Translations: [LOW BACK PAIN, UNSPECIFIED] Onset: 3 Unclassified (1 source) MCC USE ANTIMETABOLITE AGENT; Translations: [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 USE ANTIMETABOLITE AGENT] Onset: 3 Unclassified (1 source) CONTACT W/AND (SUSP) EXPOS COVID-19; Translations: [CONTACT W/AND (SUSP) EXPOS COVID-19] Onset: 2 Unclassified (1 source) care home (current) use of antimetabolite agent; Translations: [care home (current) use of antimetabolite agent] Onset: 8 Past or Other Problems Problem Classification Problem Date Documented Date Episodic/Chronic Abdominal pain (4 sources) Unspecified abdominal pain; Translations: [UNSPECIFIED ABDOMINAL PAIN] Onset: 2 Episodic Chronic obstructive pulmonary disease and bronchiectasis (2 sources) Chronic obstructive pulmonary disease and bronchiectasis 06-15-2022 Deficiency and other anemia (20 sources) Anemia; Translations: [Anemia, unspecified] Onset: 9 Resolved: 2 05-03-2018 Episodic Deficiency and other anemia (5 sources) Macrocytic anemia; Translations: [Nutritional anemia, unspecified] Onset: 9 Resolved: 3 07-12-2021 Episodic Deficiency and other anemia (1 source) Anemia, unspecified; Translations: [ANEMIA UNSPECIFIED] Onset: 2 Episodic Deficiency and other anemia (1 source) Other specified anemias; Translations: [OTHER SPECIFIED ANEMIAS] Onset: 2 Episodic Deficiency and other anemia (2 sources) Nutritional anemia, unspecified; Translations: [Nutritional anemia, unspecified] Onset: 3 Episodic Fever of unknown origin (4 sources) Fever, unspecified; Translations: [FEVER UNSPECIFIED] Onset: 2 Episodic Malaise and fatigue (20 sources) Fatigue; Translations: [Other fatigue] Onset: 8 03-29-2018 Episodic Other aftercare (5 sources) Long-term current use of systemic steroid; Translations: [care home (current) use of 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] Onset: 8 Resolved: 0 Episodic Other aftercare (7 sources) Patient encounter status; Translations: [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-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-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)] Onset: 8 Resolved: 3 Episodic Other aftercare (4 sources) Long-term current use of immunosuppressive drug; Translations: [Other custodial (current) drug therapy] Onset: 8 Resolved: 8 03-29-2018 Episodic Other aftercare (3 sources) 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-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-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); Translations: [MCC USE NSAID] Onset: 8 Episodic Other aftercare (1 source) care home (current) use of 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; Translations: [MCC USE OF SYSTEMIC STEROIDS] Onset: 2 Episodic Other bone disease and musculoskeletal deformities (4 sources) Disorder of skeletal system; Translations: [Disorder of bone, unspecified] Onset: 8 03-29-2018 Episodic Other connective tissue disease (20 sources) Pain in right hand; Translations: [Pain of bilateral hands] Onset: 8 03-29-2018 Episodic Other nervous system disorders (20 sources) Chronic pain syndrome; Translations: [Chronic pain disorder] Onset: 7 03-29-2018 Episodic Other non-traumatic joint disorders (20 sources) Multiple joint pain; Translations: [Pain in unspecified joint] Onset: 7 Resolved: 0 03-29-2018 Episodic Other non-traumatic joint disorders (20 sources) Shoulder pain; Translations: [Pain in right shoulder] Onset: 8 03-29-2018 Episodic Other non-traumatic joint disorders (20 sources) Pain in right wrist; Translations: [Bilateral wrist pain] Onset: 8 03-29-2018 Episodic Other non-traumatic joint disorders (20 sources) Knee pain; Translations: [Chronic pain of both knees] Onset: 8 03-29-2018 Episodic Other non-traumatic joint disorders (20 sources) Pain in right elbow; Translations: [Bilateral elbow joint pain] Onset: 8 03-29-2018 Episodic Other non-traumatic joint disorders (4 sources) Pain in right knee; Translations: [Pain in joint, lower leg] Onset: 8 03-29-2018 Episodic Other non-traumatic joint disorders (3 sources) Bilateral chronic pain of upper limbs; Translations: [Pain in right shoulder] Onset: 8 03-29-2018 Episodic Other screening for suspected conditions (not mental disorders or infectious disease) (14 sources) Renal function tests abnormal; Translations: [Abnormal results of kidney function studies] Onset: 0 Resolved: 1 01-13-2020 Episodic Other skin disorders (1 source) Nail dystrophy; Translations: [NAIL DYSTROPHY] Onset: 2 Episodic Residual codes; unclassified (20 sources) Noncompliance with treatment; Translations: [Patient's noncompliance with other medical treatment and regimen] Onset: 9 09-03-2018 Episodic Residual codes; unclassified (4 sources) Patient noncompliance - general; Translations: [Patient's noncompliance with other medical treatment and regimen] Onset: 9 09-03-2018 Episodic Spondylosis; intervertebral disc disorders; other back problems (20 sources) Thoracic back pain; Translations: [Neck pain] Onset: 8 03-29-2018 Episodic Unclassified (1 source) Psoriatic arthritis Unclassified (20 sources) Long-term current use of immunosuppressive drug; 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] Onset: 8 Resolved: 8 03-29-2018 Unclassified (1 source) Psoriatic spondylitis Unclassified (20 sources) Long-term current use of systemic steroid; Translations: [care home current use of 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] Onset: 8 Resolved: 0 03-29-2018 Unclassified (1 source) 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 Unclassified (1 source) LOW BACK PAIN, UNSPECIFIED; Translations: [LOW BACK PAIN, UNSPECIFIED] Onset: 3 Unclassified (1 source) 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 RAD - MISCon 03-21-2023 [facility] [id number] [facility] Ambulatory Visit Summaryon 1 05-13-2022 Ambulatory Visit Summary GLENDA BUCKLEY :1965 Visit Date:03/12/2023 Ambulatory Visit Instructions Your Diagnosis COVID-19 Your Care Team Attending Physician - German Carrion MD Primary Care Physician - German Carrion MD This Is Your Medications List acetaminophen-hyd rocodone (acetaminophen-hy drocodone 325 mg-5 mg oral tablet) amitriptyline (amitriptyline 25 mg Tab) amlodipine (amLODIPine 5 mg Tab) benzonatate (benzonatate 200 mg oral capsule) bisoprolol-hydroc hlorothiazide (bisoprolol-hydro chlorothiazide 10 mg-6.25 mg Tab) buPROPion (buPROPion 150 mg/24 hours XL Tab) cetirizine (cetirizine 10 mg Tab) cyclobenzaprine (cyclobenzaprine 10 mg Tab) fluticasone nasal (fluticasone Nasal 0.05 mg/inh [place]) gabapentin (gabapentin 300 mg Cap) ipratropium nasal (ipratropium Nasal 0.03% [place]) ixekizumab (Taltz Autoinjector 80 mg/mL subcutaneous solution) sildenafil (sildenafil 25 mg Tab) Procedures Performed Appendectomy, CABG (Coronary artery bypass grafting) planned, Inguinal hernia. What to do next Scheduled Follow-Up Appointments Sunday 9:00 AM EST With: BABATUNDE MASON, Yusuf Cortés Where: [facility] [id number] \.br\ Medications\.br\ What How Much When Why Instructions\.br\ Unchanged acetaminophen-hydr ocodone (acetaminophen-hyd rocodone 325 mg-5 mg oral tablet) 60 EA, 0 Refill(s), TAKE 1 TABLET BY MOUTH TWICE A DAY NEEDED FOR PAIN \.br\ Unchanged amitriptyline (amitriptyline 25 mg Tab) 2 Tablets By Mouth Once a day (at bedtime)\.br\ Unchanged amlodipine (amLODIPine 5 mg Tab) 1 Tablets By Mouth Every day\.br\ Unchanged benzonatate (benzonatate 200 mg oral capsule) 1 Capsules By Mouth 3 times a day BMI 31.0-31.9,adult Class 1 obesity due to excess calories in adult Former smoker COVID-19 Duration: 7 Days\.br\ Unchanged bisoprolol-hydroch lorothiazide (bisoprolol-hydroc hlorothiazide 10 mg-6.25 mg Tab) 1 Tablets By Mouth Every day\.br\ Unchanged buPROPion (buPROPion 150 mg/ 24 hours XL Tab) 1 Tablets By Mouth Every 24 hours\.br\ Unchanged cetirizine (cetirizine 10 mg Tab) See instructions TAKE 1 TABLET BY MOUTH EVERY DAY \.br\ Unchanged cyclobenzaprine (cyclobenzaprine 10 mg Tab) 1 Tablets By Mouth 3 times a day as needed for for spasm\.br\ Unchanged fluticasone nasal (fluticasone Nasal 0.05 mg/ inh [place]) See instructions SPRAY 2 SPRAYS INTO EACH NOSTRIL DAILY \.br\ Unchanged gabapentin (gabapentin 300 mg Cap) See instructions TAKE 1 CAPSULE BY MOUTH TWICE A DAY \.br\ Unchanged ipratropium nasal (ipratropium Nasal 0.03% [place]) See instructions USE 2 SPRAYS IN EACH NOSTRIL 3 TIMES A DAY \.br\ Unchanged ixekizumab (Taltz Autoinjector 80 mg/ mL subcutaneous solution) Subcutaneous Every 4 weeks\.br\ Unchanged sildenafil (sildenafil 25 mg Tab) 1 Tablets By Mouth Every day as needed for for erectile dysfunction\.br\ Allergies\.br\ morphine (Unknown)\.br\ Problems\.br\ Ongoing - Any problem that you are currently receiving treatment for.\.br\ Allergic rhinitis\.br\ Anemia\.br\ Anxiety\.br\ Atherosclerotic heart disease of [place] coronary artery with angina pectoris\.br\ Contusion\.br\ COVID-19\.br\ Essential hypertension\.br\ Fatigue\.br\ Macrocytosis\.br\ Obesity due to excess calories\.br\ Psoriasis arthropathica\.br\ Sleep disorder\.br\ Spasm of back muscles\.br\ Stage 3a chronic kidney disease (CKD)\.br\ Vitamin D deficiency\.br\ Historical - Any problem that you are no longer receiving treatment for.\.br\ COPD (Chronic Obstructive Pulmonary Disease) Assessment Test scale\.br\ HTN - Hypertension\.br\ Nephrolithiasis\.b r\ Psoriasis\.br\ Psoriatic arthritis\.br\ Patient Survey\.br\ You may receive a survey via text or e-mail asking about your office visit. Please share your experience with us by completing your survey. We appreciate your feedback and thank you for choosing us for your care.\.br\ \.br\ [facility] Nurse Consultation Noteon Nurse Consultation Note Physical Exam pt here today for re check COVID test. Today was positive here in office. Per Dr Carrion patient taken off work for 3-4 days. Assessment/Plan COVID-19 (U07.1: COVID-19) Medications acetaminophen-hyd rocodone 325 mg-5 mg oral tablet amitriptyline 25 mg Tab, 50 mg= 2 tab(s), Oral, Once a day (at bedtime), 5 refills amLODIPine 5 mg Tab, 5 mg= 1 tab(s), Oral, Daily, 3 refills benzonatate 200 mg oral capsule, 200 mg= 1 cap(s), Oral, TID bisoprolol-hydroc hlorothiazide 10 mg-6.25 mg Tab, 1 tab(s), Oral, Daily, 1 refills buPROPion 150 mg/24 hours XL Tab, 150 mg= 1 tab(s), Oral, q24hr, 1 refills cetirizine 10 mg Tab, See Instructions cyclobenzaprine 10 mg Tab, 10 mg= 1 tab(s), Oral, TID, PRN fluticasone Nasal 0.05 mg/inh [place], See Instructions gabapentin 300 mg Cap, See Instructions ipratropium Nasal 0.03% [place], See Instructions sildenafil 25 mg Tab, 25 mg= 1 tab(s), Oral, Daily, PRN Taltz Autoinjector 80 mg/mL subcutaneous solution, SubCutaneous, q4wk Allergies morphine (Unknown) Immunizations Vaccine Date Status Comments influenza virus vaccine, inactivated - Not Given Patient Refuses SARS-CoV-2 (COVID-19) mRNA BNT-162b2 vax 09/07/2020 Recorded SARS-CoV-2 (COVID-19) mRNA BNT-162b2 vax 08/17/2020 Recorded diphtheria/pertus sis, acel/tetanus adult 11/15/2019 Recorded Lab Results Ambulatory Point of Care Results Rapid Covid POC: Positive (03/12/23 09:05:00) [place] Provider Letteron 03-12-2023 Provider Letter March 12, 2023 [place] [address] : 1965 To Whom It May Concern, Please excuse above patient from work. Date of Illness: From: 03.12.2023 To: 03.16.2023 May Return to Work On: 03.19.2023 Comments: Post covid symptoms Sincerely, Yakeiln Santiago, CHARACTER ACTOR-C [address] [facility] Consultation Noteon 03-08-20 23 Consultation Note [id number] [facility] Provider Letteron 03-06-2023 Provider Letter March 06, 2023 GLENDA BUCKLEY [place] [address] : 1965 To Whom It May Concern, Please excuse above patient from work. Date of Illness: From: 03.05.2023 To: 03.12.2023 May Return to Work On: 03.13.2023 Comments: Patient is off due to illness. Sincerely, German Carrion MD Family Medicine [address] [facility] Family Medicine Office/Clini c Noteon 03-05-2023 Family Medicine Office/Clinic Note HPI Staff Glenda is a 57 year old male presenting for acute visit Acute: stuffed head, cough, runny nose, fever _Respiratory C/O: Duration: 4 days Body aches: yes Chest congestion: yes Chills: yes Cough: yes Ear complaints: yes plugged Eye itching/watering: yes Fever: yes Headache: yes Nasal congestion: yes Nasal discharge: yes clear and colored Poor appetite: yes Reduced activity: yes Sinus pain/pressure: yes Sneezing: yes Sputum production: yes white and yellow phlegm Wheezing: yes Ill contacts: yes through work Remedies tried: nothing _ _ flu: UTD questions/concern s: History of Present Illness Please see staff HPI. Review of Systems PHQ Score Initial Depression Screen Score: 0 SCORE Physical Exam Vitals & Measurements T: 37.2 ?C(Temporal Artery) HR: 72(Peripheral) RR: 16 BP: 112/74 SpO2: 98% HT: 71 in HT: 180.3 cm WT: 102 kg WT: 224.4 lb BMI: 31.38 General: alert, no acute distress ENMT: oral mucosa moist, Cardiovascular: regular rate and rhythm, normal peripheral perfusion Respiratory: Lungs CTA, respirations non labored Extremities: no deformity, no trauma Neurological: oriented x 4, LOC appropriate for age, CN II-XII intact, motor strength equal & normal bilaterally, speech normal Abdomen: Soft, Nontender, Non-distended, + BS Assessment/Plan 1. COVID-19 (U07.1: COVID-19) - Will do Azithromycin, Medrol and tessalon perles. - Precautions discussed in detail. When to return discussed along with when to go to the ER. Pt verbalized understanding. Ordered: azithromycin, = 1 packet(s), Oral, As Directed, as directed on package labeling, X 5 day(s), # 6 tab(s), Refills(s) 0, Pharmacy: [facility]/pharmacy #[id number], 180.3, cm, 03/05/23 14:04:00 EST, Height/Length Dosing, 102, kg, 03/05/23 14:04:00 EST, Weight Dosing benzonatate, 200 mg = 1 cap(s), Oral, TID, X 7 day(s), # 21 cap(s), Refills(s) 0, Pharmacy: [facility]/pharmacy #[id number], 180.3, cm, 03/05/23 14:04:00 EST, Height/Length Dosing, 102, kg, 03/05/23 14:04:00 EST, Weight Dosing methylPREDNISolon e, = 1 packet(s), Oral, As Directed, as directed on package labeling, X 6 day(s), # 21 tab(s), Refills(s) 0, Pharmacy: [facility]/pharmacy #[id number], 180.3, cm, 03/05/23 14:04:00 EST, Height/Length Dosing, 102, kg, 03/05/23 14:04:00 EST, Weight Dosing Body Mass Index (BMI) documented 3008F Current tobacco non-user 1036F Depression Screening Negative 3352F Influenza immunization administered or previously received 4274F Influenza Type A&B POC 56789 Most recent diastolic blood pressure <80 mm Hg 3078F Rapid COVID POC 21857 Systolic BP <130 mm Hg (Most Recent) 3074F 2. BMI 31.0-31.9,adult (Z68.31: Body mass index [BMI] 31.0-31.9, adult) - BMI education uploaded to the portal Ordered: azithromycin, = 1 packet(s), Oral, As Directed, as directed on package labeling, X 5 day(s), # 6 tab(s), Refills(s) 0, [id number], 180.3, cm, 03/05/23 14:04:00 EST, Height/Length Dosing, 102, kg, 03/05/23 14:04:00 EST, Weight Dosing benzonatate, 200 mg = 1 cap(s), Oral, TID, X 7 day(s), # 21 cap(s), Refills(s) 0, [id number], 180.3, cm, 03/05/23 14:04:00 EST, Height/Length Dosing, 102, kg, 03/05/23 14:04:00 EST, Weight Dosing methylPREDNISolon e, = 1 packet(s), Oral, As Directed, as directed on package labeling, X 6 day(s), # 21 tab(s), Refills(s) 0, Pharmacy: [facility] #[id number], 180.3, cm, 03/05/23 14:04:00 EST, Height/Length Dosing, 102, kg, 03/05/23 14:04:00 EST, Weight Dosing Body Mass Index (BMI) documented 3008F Current tobacco non-user 1036F Depression Screening Negative 3352F Influenza immunization administered or previously received 4274F Most recent diastolic blood pressure <80 mm Hg 3078F Systolic BP <130 mm Hg (Most Recent) 3074F 3. Class 1 obesity due to excess calories in adult (E66.09: Other obesity due to excess calories) - Diet and exercise advised. Ordered: azithromycin, = 1 packet(s), Oral, As Directed, as directed on package labeling, X 5 day(s), # 6 tab(s), Refills(s) 0, [id number], 180.3, cm, 03/05/23 14:04:00 EST, Height/Length Dosing, 102, kg, 03/05/23 14:04:00 EST, Weight Dosing benzonatate, 200 mg = 1 cap(s), Oral, TID, X 7 day(s), # 21 cap(s), Refills(s) 0, [id number], 180.3, cm, 03/05/23 14:04:00 EST, Height/Length Dosing, 102, kg, 03/05/23 14:04:00 EST, Weight Dosing methylPREDNISolon e, = 1 packet(s), Oral, As Directed, as directed on package labeling, X 6 day(s), # 21 tab(s), Refills(s) 0, Pharmacy: [facility]/pharmacy #[id number], 180.3, cm, 03/05/23 14:04:00 EST, Height/Length Dosing, 102, kg, 03/05/23 14:04:00 EST, Weight Dosing Body Mass Index (BMI) documented 3008F Current tobacco non-user 1036F Depression Screening Negative 3352F Influenza immunization administered or previously received 4274F Most recent diastolic blood pressure <80 mm Hg 3078F Systolic BP <130 mm Hg (Most Recent) 3074F 4. Former smoker (Z87.891: Personal history of nicotine dependence) Orde (more content not included)... Normal [facility] Comment on above: Result Comment: Elec tronically Signed By: Murali MASON, German Chiu\.br\Date and Time Signed: 03/05/23 14:22 EST Patient Educationon 03-05-20 23 Patient Education BMI for Adults What is BMI? Body mass index (BMI) is a number that is calculated from a person's weight and height. BMI can help estimate how much of a person's weight is composed of fat. BMI does not measure body fat directly. Rather, it is an alternative to procedures that directly measure body fat, which can be difficult and expensive. BMI can help identify people who may be at higher risk for certain medical problems. What are BMI measurements used for? BMI is used as a screening tool to identify possible weight problems. It helps determine whether a person is obese, overweight, a healthy weight, or underweight. BMI is useful for: ? Identifying a weight problem that may be related to a medical condition or may increase the risk for medical problems. ? Promoting changes, such as changes in diet and exercise, to help reach a healthy weight. BMI screening can be repeated to see if these changes are working. How is BMI calculated? BMI involves measuring your weight in relation to your height. Both height and weight are measured, and the BMI is calculated from those numbers. This can be done either in [place] or metric measurements. Note that charts and online BMI calculators are available to help you find your BMI quickly and easily without having to do these calculations yourself. To calculate your BMI in [place] measurements: 1. Measure your weight in pounds (lb). 2. Multiply the number of pounds by 703. ? For example, for a person who weighs 180 lb, multiply that number by 703, which equals 126,540. 3. Measure your height in inches. Then multiply that number by itself to get a measurement called inches squared. ? For example, for a person who is 70 inches tall, the inches squared measurement is 70 inches x 70 inches, which equals 4,900 inches squared. 4. Divide the total from step 2 (number of lb x 703) by the total from step 3 (inches squared): 126,540 ? 4,900 = 25.8. This is your BMI. To calculate your BMI in metric measurements: 1. Measure your weight in kilograms (kg). 2. Measure your height in meters (m). Then multiply that number by itself to get a measurement called meters squared. ? For example, for a person who is 1.75 m tall, the meters squared measurement is 1.75 m x 1.75 m, which is equal to 3.1 meters squared. 3. Divide the number of kilograms (your weight) by the meters squared number. In this example: 70 ? 3.1 = 22.6. This is your BMI. What do the results mean? BMI charts are used to identify whether you are underweight, normal weight, overweight, or obese. The following guidelines will be used: ? Underweight: BMI less than 18.5. ? Normal weight: BMI between 18.5 and 24.9. ? Overweight: BMI between 25 and 29.9. ? Obese: BMI of 30 or above. Keep these notes in mind: ? Weight includes both fat and muscle, so someone with a muscular build, such as an athlete, may have a BMI that is higher than 24.9. In cases like these, BMI is not an accurate measure of body fat. ? To determine if excess body fat is the cause of a BMI of 25 or higher, further assessments may need to be done by a health care provider. ? BMI is usually interpreted in the same way for men and women. Where to find more information For more information about BMI, including tools to quickly calculate your BMI, go to these websites: ? Centers for Disease Control and Prevention: www.cdc.gov ? [place] [employer]: www.heart.org ? National Heart, Lung, and Blood [place]: www.nhlbi.nih.gov Summary ? Body mass index (BMI) is a number that is calculated from a person's weight and height. ? BMI may help estimate how much of a person's weight is composed of fat. BMI can help identify those who may be at higher risk for certain medical problems. ? BMI can be measured using [place] measurements or metric measurements. ? BMI charts are used to identify whether you are underweight, normal weight, overweight, or obese. This information is not intended to replace advice given to you by your health care provider. Make sure you discuss any questions you have with your health care provider. Document Revised: 12/10/2019 Document Reviewed: 10/17/2019 [employer] Patient Education ? 2022 [employer]. Nutrition BMI for Adults What is BMI? Body mass index (BMI) is a number that is calculated from a person's weight and height. BMI can help estimate how much of a person's weight is composed of fat. BMI does not measure body fat directly. Rather, it is an alternative to procedures that directly measure body fat, which can be difficult and expensive. BMI can help identify people who may be at higher risk for certain medical problems. What are BMI measurements used for? BMI is used as a screening tool to identify possible weight problems. It helps determine whether a person is obese, overweight, a healthy weight, or underweight. BMI is useful for: ? Identifying a weight problem that may be (more content not included)... Normal [facility] Ambulatory Visit Summaryon 1 04-17-2022 Ambulatory Visit Summary GLENDA BUCKLEY :1965 Visit Date:02/15/2023 Ambulatory Visit Instructions Your Diagnosis Anxiety Essential hypertension BMI 32.0-32.9,adult Class 1 obesity due to excess calories in adult, Obesity due to excess calories Nonsmoker Your Care Team Attending Physician - German Carrion MD Primary Care Physician - German Carrion MD This Is Your Medications List amitriptyline (amitriptyline 25 mg Tab) amlodipine (amLODIPine 5 mg Tab) bisoprolol-hydroc hlorothiazide (bisoprolol-hydro chlorothiazide 10 mg-6.25 mg Tab) buPROPion (buPROPion 150 mg/24 hours XL Tab) cetirizine (cetirizine 10 mg Tab) cyclobenzaprine (cyclobenzaprine 10 mg Tab) fluticasone nasal (fluticasone Nasal 0.05 mg/inh [place]) gabapentin (gabapentin 300 mg Cap) ipratropium nasal (ipratropium Nasal 0.03% [place]) ixekizumab (Taltz Autoinjector 80 mg/mL subcutaneous solution) sildenafil (sildenafil 25 mg Tab) Procedures Performed Appendectomy, CABG (Coronary artery bypass grafting) planned, Inguinal hernia. Discharge Vitals Temperature (Temporal Artery) 37.0 ?C Heart Rate (Peripheral) 72 Respiratory Rate 16 Blood Pressure 132/80 Height 180.3 cm Height 71 in Weight 105.8 kg Weight 232.76 lb BMI 32.55 What to do next Scheduled Follow-Up Appointments Sunday 2:00 PM EST With: BABATUNDE MASON, Yusuf Cortés Where: [facility] [id number]- \.br\ Medications\.br\ What How Much When Instructions\.br\ Unchanged amitriptyline (amitriptyline 25 mg Tab) 2 Tablets By Mouth Once a day (at bedtime)\.br\ Unchanged amlodipine (amLODIPine 5 mg Tab) 1 Tablets By Mouth Every day\.br\ Unchanged bisoprolol-hydroch lorothiazide (bisoprolol-hydroc hlorothiazide 10 mg-6.25 mg Tab) 1 Tablets By Mouth Every day\.br\ Unchanged buPROPion (buPROPion 150 mg/ 24 hours XL Tab) 1 Tablets By Mouth Every 24 hours\.br\ Unchanged cetirizine (cetirizine 10 mg Tab) See instructions TAKE 1 TABLET BY MOUTH EVERY DAY \.br\ Unchanged cyclobenzaprine (cyclobenzaprine 10 mg Tab) 1 Tablets By Mouth 3 times a day as needed for for spasm\.br\ Unchanged fluticasone nasal (fluticasone Nasal 0.05 mg/ inh [place]) See instructions SPRAY 2 SPRAYS INTO EACH NOSTRIL DAILY \.br\ Unchanged gabapentin (gabapentin 300 mg Cap) See instructions TAKE 1 CAPSULE BY MOUTH TWICE A DAY \.br\ Unchanged ipratropium nasal (ipratropium Nasal 0.03% [place]) See instructions USE 2 SPRAYS IN EACH NOSTRIL 3 TIMES A DAY \.br\ Unchanged ixekizumab (Taltz Autoinjector 80 mg/ mL subcutaneous solution) Subcutaneous Every 4 weeks\.br\ Unchanged sildenafil (sildenafil 25 mg Tab) 1 Tablets By Mouth Every day as needed for for erectile dysfunction\.br\ Medications and Immunizations Administered\.br\ Not Given\.br\ influenza virus vaccine, inactivated, Patient Refuses\.br\ Allergies\.br\ morphine (Unknown)\.br\ Problems\.br\ Ongoing - Any problem that you are currently receiving treatment for.\.br\ Allergic rhinitis\.br\ Anemia\.br\ Anxiety\.br\ Atherosclerotic heart disease of [place] coronary artery with angina pectoris\.br\ Contusion\.br\ Essential hypertension\.br\ Fatigue\.br\ Macrocytosis\.br\ Obesity due to excess calories\.br\ Psoriasis arthropathica\.br\ Sleep disorder\.br\ Spasm of back muscles\.br\ Stage 3a chronic kidney disease (CKD)\.br\ Vitamin D deficiency\.br\ Historical - Any problem that you are no longer receiving treatment for.\.br\ COPD (Chronic Obstructive Pulmonary Disease) Assessment Test scale\.br\ HTN - Hypertension\.br\ Nephrolithiasis\.b r\ Psoriasis\.br\ Psoriatic arthritis\.br\ Patient Survey\.br\ You may receive a survey via text or e-mail asking about your office visit. Please share your experience with us by completing your survey. We appreciate your feedback and thank you for choosing us for your care.\.br\ \.br\ [facility] Family Medicine Office/Clini c Noteon 02-15-2023 Family Medicine Office/Clinic Note HPI Staff Glenda is a 57 year old male presenting for 3 month follow up Follow up for Mental Status: Medication adherence- Yes, takes medication as prescribed MEdication refill needed: no Suicidal thoughts-Not at this time Most recent CONNOR: 4 Most recent PHQ: 0 Patient is here for follow up on hypertension. How often are you checking your blood pressure? every other week What are your average readings? 181/76_ Yearly BMP: 11/15/22_ flu: refused questions/concern s: needs refills of his cetirizine and gabapentin History of Present Illness - Here for follow up. - Pain is flaring up today. - Otherwise, doing well. - Mood is really good. Review of Systems PHQ Score Initial Depression Screen Score: 0 SCORE Physical Exam Vitals & Measurements T: 37.0 ?C(Temporal Artery) HR: 72(Peripheral) RR: 16 BP: 132/80 SpO2: 96% HT: 71 in HT: 180.3 cm WT: 105.8 kg WT: 232.76 lb BMI: 32.55 General: alert, no acute distress ENMT: oral mucosa moist, Cardiovascular: regular rate and rhythm, normal peripheral perfusion Respiratory: Lungs CTA, respirations non labored Extremities: no deformity, no trauma Neurological: oriented x 4, LOC appropriate for age, CN II-XII intact, motor strength equal & normal bilaterally, speech normal Abdomen: Soft, Nontender, Non-distended, + BS Assessment/Plan 1. Anxiety (F41.9: Anxiety disorder, unspecified) - Controlled. - Doing well. - Continue to monitor Ordered: Body Mass Index (BMI) documented 3008F Current tobacco non-user 1036F Depression Screening Negative 3352F Influenza immunization status assessed 1030F Most recent diastolic blood pressure 80-89 mm Hg 3079F Systolic BP 130-139 mm Hg (Most Recent) 3075F 2. Essential hypertension (I10: Essential (primary) hypertension) - At goal. Ordered: Body Mass Index (BMI) documented 3008F Current tobacco non-user 1036F Depression Screening Negative 3352F Influenza immunization status assessed 1030F Most recent diastolic blood pressure 80-89 mm Hg 3079F Systolic BP 130-139 mm Hg (Most Recent) 3075F 3. BMI 32.0-32.9,adult (Z68.32: Body mass index [BMI] 32.0-32.9, adult) - BMI education uploaded Ordered: Body Mass Index (BMI) documented 3008F Current tobacco non-user 1036F Depression Screening Negative 3352F Influenza immunization status assessed 1030F Most recent diastolic blood pressure 80-89 mm Hg 3079F Systolic BP 130-139 mm Hg (Most Recent) 3075F 4. Nonsmoker (Z78.9: Other specified health status) - Please continue to not smoke Ordered: Body Mass Index (BMI) documented 3008F Current tobacco non-user 1036F Depression Screening Negative 3352F Influenza immunization status assessed 1030F Most recent diastolic blood pressure 80-89 mm Hg 3079F Systolic BP 130-139 mm Hg (Most Recent) 3075F 5. Obesity due to excess calories (E66.09: Other obesity due to excess calories) - Diet and exercise advised. Ordered: Body Mass Index (BMI) documented 3008F Current tobacco non-user 1036F Depression Screening Negative 3352F Influenza immunization status assessed 1030F Most recent diastolic blood pressure 80-89 mm Hg 3079F Systolic BP 130-139 mm Hg (Most Recent) 3075F 6. Spasm of back muscles (M62.830: Muscle spasm of back) - Pt to continue to follow up with pain management. - Discussed the need for possible Orders: cetirizine, See Instructions, TAKE 1 TABLET BY MOUTH EVERY DAY, # 90 tab(s), Refills(s) 0, Pharmacy: [facility]/pharmacy #[id number], 180.3, cm, 02/15/23 11:32:00 EST, Height/Length Dosing, 105.8, kg, 02/15/23 11:32:00 EST, Weight Dosing gabapentin, See Instructions, TAKE 1 CAPSULE BY MOUTH TWICE A DAY, # 180 cap(s), Refills(s) 0, Pharmacy: [facility]/pharmacy #[id number], 180.3, cm, 02/15/23 11:32:00 EST, Height/Length Dosing, 105.8, kg, 02/15/23 11:32:00 EST, Weight Dosing Follow-up No qualifying data available Problem List/Past Medical History Ongoing Allergic rhinitis Anemia Anxiety Atherosclerotic heart disease of [place] coronary artery with angina pectoris Contusion Essential hypertension Fatigue Macrocytosis Obesity due to excess calories Psoriasis arthropathica Sleep disorder Spasm of back muscles Stage 3a chronic kidney disease (CKD) Vitamin D deficiency Historical COPD (Chronic Obstructive Pulmonary Disease) Assessment Test scale HTN - Hypertension Nephrolithiasis Psoriasis Psoriatic arthritis Procedure/Surgica l History Appendectomy, CABG (Coronary artery bypass grafting) planned, Inguinal hernia. Medications acetaminophen-hyd rocodone 325 mg-5 mg oral tablet amitriptyline 25 mg Tab, 50 mg= 2 tab(s), Oral, Once a day (at bedtime), 5 refills amLODIPine 5 mg Tab, 5 mg= 1 tab(s), Oral, Daily, 3 refills bisoprolol-hydroc hlorothiazide 10 mg-6.25 mg Tab, 1 tab(s), Oral, Daily, 1 refills buPROPion 150 mg/24 hours XL Tab, 150 mg= 1 tab(s), Oral, q24hr, 1 refills cetirizine 10 mg Tab, See Instructions cyclobenzaprine 10 mg Tab, 10 mg= 1 (more content not included)... Normal [facility] Comment on above: Result Comment: Elec tronically Signed By: Murali MASON, German Manning.br\Date and Time Signed: 02/15/23 12:29 EST RAD - MISCon 01-24-2023 RAD - MISC [id number]#1.00TIFF Normal [facility] Lab Reportson 01-17-2023 Lab Reports [id number]#1.00TIFF Normal [facility] Lab Reportson 01-16-2023 Lab Reports [id number]#1.00TIFF [facility] Lab Reports [id number]#1.00TIFF [facility] Operative Reporton 3 Operative Report [id number]#1.00CD:127 Normal [facility] Operative Reporton 3 Operative Report [id number]#1.00CD:127 Normal [facility] CMPon 11-16-2022 Albumin [Mass/Vol] 4.4 g/dL Normal 3.3-5.0 [facility] Comment on above: Performed By: #### 1 [id number], [id number] #### [facility] [address] [place] [address] Albumin/Globulin (S) [Mass conc ratio] 1.6 Normal 1.1-2.2 [facility] Comment on above: Performed By: #### 1 [id number], [id number] #### [facility] [address] [place] [address] ALP [Catalytic activity/Vol] 51 Int._Unit/L Normal 21-98 [facility] Comment on above: Performed By: #### 1 [id number], [id number] #### [facility] [address] [place] [address] ALT No additional P-5'-P [Catalytic activity/Vol] 26 Int._Unit/L Normal 6-46 [facility] Comment on above: Performed By: #### 1 [id number], [id number] #### [facility] [address] [place] [address] Anion gap [Moles/Vol] 10 mmol/L Normal 6-16 [facility] Comment on above: Performed By: #### 1 [id number], [id number] #### [facility] [address] [place] [address] AST [Catalytic activity/Vol] 22 Int._Unit/L Normal 5-43 [facility] Comment on above: Performed By: #### 1 [id number], [id number] #### [facility] [address] [place] [address] Bilirubin [Mass/Vol] 0.7 mg/dL Normal 0.0-1.1 [facility] Comment on above: Performed By: #### 1 [id number], [id number] #### [facility] [address] [place] [address] Calcium [Mass/Vol] 9.1 mg/dL Normal 8.9-11.1 [facility] Comment on above: Performed By: #### 1 [id number], [id number] #### [facility] [address] [place] [address] Chloride [Moles/Vol] 111 mmol/L Normal 101-111 [facility] Comment on above: Performed By: #### 1 [id number], [id number] #### [facility] [address] [place] [address] CO2 [Moles/Vol] 23 mmol/L Normal 21-31 [facility] Comment on above: Performed By: #### 1 [id number], [id number] #### [facility] [address] [place] [address] Creatinine [Mass/Vol] 1.6 mg/dL High 0.5-1.3 [facility] Comment on above: Performed By: #### 1 [id number], [id number] #### [facility] [address] [place] [address] Globulin (S) [Mass/Vol] 2.7 g/dL Normal 1.4-4.0 [facility] Comment on above: Performed By: #### 1 [id number], [id number] #### [facility] [address] [place] [address] Glucose [Mass/Vol] 90 mg/dL Normal 55-199 [facility] Comment on above: Result Comment: If t his glucose result represents a fasting glucose, interpretation should refer to the following reference range: 55-99 mg/dL Performed By: #### 1 [id number], [id number] #### [facility] [address] [place] [address] Potassium [Moles/Vol] 4.2 mmol/L Normal 3.5-5.3 [facility] Comment on above: Performed By: #### 1 [id number], [id number] #### [facility] [address] [place] [address] Protein [Mass/Vol] 7.1 g/dL Normal 6.0-7.8 [facility] Comment on above: Performed By: #### 1 [id number], [id number] #### [facility] [address] [place] [address] Sodium [Moles/Vol] 140 mmol/L Normal 135-145 [facility] Comment on above: Performed By: #### 1 [id number], [id number] #### [facility] [address] [place] [address] Urea nitrogen [Mass/Vol] 27 mg/dL High 5-21 [facility] Comment on above: Performed By: #### 1 [id number], [id number] #### [facility] [address] [place] [address] Urea nitrogen/Creatinine [Mass ratio] 17 No Units Normal 10-20 [facility] Comment on above: Performed By: #### 1 [id number], [id number] #### [facility] [address] [place] [address] Folateon 11-16-2022 Folate [Mass/Vol] ng/mL Normal >=6.7 [facility] Comment on above: Performed By: #### 5 [id number], [id number], [id number], [id number], [id number], [id number] #### [facility] [address] [place] [address] Physician Referralon 023 Physician Referral [id number]#1.00CD:12 7 Normal [facility] Vit B12on 11-16-2022 Cobalamin (Vitamin B12) [Mass/Vol] 590 pg/mL Normal 50-1500 [facility] Comment on above: Performed By: #### 5 [id number], [id number], 7607720, [id number], 9117656, [id number] #### [facility] [address] [place] [address] eGFRon 11-16-2022 GFR/1.73 sq M.predicted among non-blacks MDRD (S/P/Bld) [Vol rate/Area] 50 mL/min/1.73 m2 Low >=59 [facility] Comment on above: Order Comment: Order added by Discern Expert. Result Comment: Radiology Transporter alvin kidney disease could be indicated at eGFR's of less than 60 mL/min/1.73m2. Kidney failure is indicated at less than 15 mL/min/1.73m2. Performed By: #### 1 [id number], [id number] #### [facility] [address] [place] [address] Ambulatory Visit Summaryon 0 8-16-2023 Ambulatory Visit Summary GLENDA BUCKLEY :1965 Visit Date:11/15/2022 Ambulatory Visit Instructions Your Diagnosis Anxiety Kidney stones Sleep disorder Vitamin D deficiency Spasm of back muscles BMI 32.0-32.9,adult Class 1 obesity due to excess calories in adult Contusion Your Care Team Attending Physician - German Carrion MD Primary Care Physician - German Carrion MD This Is Your Medications List amitriptyline (amitriptyline 25 mg Tab) cetirizine (cetirizine 10 mg Tab) gabapentin (gabapentin 300 mg Cap) Contact prescribing physician if questions or concerns amlodipine (amLODIPine 5 mg Tab) bisoprolol-hydroc hlorothiazide (bisoprolol-hydro chlorothiazide 10 mg-6.25 mg Tab) buPROPion (buPROPion 150 mg/24 hours XL Tab) cyclobenzaprine (cyclobenzaprine 10 mg Tab) fluticasone nasal (fluticasone Nasal 0.05 mg/inh [place]) ipratropium nasal (ipratropium Nasal 0.03% [place]) ixekizumab (Taltz Autoinjector 80 mg/mL subcutaneous solution) sildenafil (sildenafil 25 mg Tab) Procedures Performed Appendectomy, CABG (Coronary artery bypass grafting) planned, Inguinal hernia. Discharge Vitals Temperature (Oral) 36.5 ?C Heart Rate (Peripheral) 84 Respiratory Rate 16 Blood Pressure 120/82 Height 180.3 cm Height 71 in Weight 106.5 kg Weight 234.3 lb BMI 32.76 What to do next Scheduled Follow-Up Appointments 2022 11:20 AM EST With: German Carrion MD Where: [facility] Invalid Interpretation Code Anxiety [facility] Office/Clini c Noteon 11-15-2022 Family Medicine Office/Clinic Note Chief Complaint Here to review labs HPI Staff Glenda presents to review labs and follow up medication for depression Started on Welbutrin XL 150 qd after last visit for mood Follow up for Mental Status: Medication adherence- Yes, takes medication as prescribedhe feels it's working he's more active and he's happier MEdication refill needed: no Suicidal thoughts-Not at this time Most recent CONNOR:0 Most recent PHQ9:2 questions/concern s: took a fall 2 weeks ago in his bedroom thinks he's migh have passed out all bruised up and lower right leg has a huge bump and it's all red and discolored Needs refills of gabapentin, cetirizine and amitriptylline all 90 day supplies History of Present Illness - Here for follow up - NO issues. - States he is doing better than ever - Meds are working well. - NO complaints Review of Systems PHQ Score Initial Depression Screen Score: 0 Physical Exam Vitals & Measurements T: 36.5 ?C(Oral) HR: 84(Peripheral) RR: 16 BP: 120/82 SpO2: 96% HT: 71 in HT: 180.3 cm WT: 106.5 kg WT: 234.3 lb BMI: 32.76 General: alert, no acute distress ENMT: oral mucosa moist, Cardiovascular: RRR normal peripheral perfusion Respiratory: Lungs CTA, respirations non labored Extremities: no deformity, no trauma Neurological: oriented x 4, LOC appropriate for age, CN II-XII intact, motor strength equal & normal bilaterally, speech normal Abdomen: Soft, Nontender, Non-distended, + BS Assessment/Plan 1. Anxiety (F41.9: Anxiety disorder, unspecified) - Doing well. - Will refill his meds - Will see back in 3 months. Ordered: Body Mass Index (BMI) documented 3008F Comprehensive Metabolic Panel Current tobacco non-user 1036F Depression Screening Negative 3352F [facility] [place]ulatory Referral Most recent diastolic blood pressure 80-89 mm Hg 3079F Systolic BP <130 mm Hg (Most Recent) 3074F 2. Kidney stones (N20.0: Calculus of kidney) - Will send to urology Ordered: [facility] Ambulatory Referral 3. Sleep disorder (G47.9: Sleep disorder, unspecified) - Continue on meds as before. Ordered: [facility] Amb[facility] Referral 4. Vitamin D deficiency (E55.9: Vitamin D deficiency, unspecified) - Resolved Ordered: [facility] Ambulatory Referral 5. Spasm of back muscles (M62.830: Muscle spasm of back) - Seeing pain - Gabapentin is working for him Ordered: [facility] Ambulatory Referral 6. BMI 32.0-32.9,adult (Z68.32: Body mass index [BMI] 32.0-32.9, adult) - BMI education given. Ordered: Body Mass Index (BMI) documented 3008F Comprehensive Metabolic Panel Current tobacco non-user 1036F Depression Screening Negative 3352F Most recent diastolic blood pressure 80-89 mm Hg 3079F Systolic BP <130 mm Hg (Most Recent) 3074F 7. Class 1 obesity due to excess calories in adult (E66.09: Other obesity due to excess calories) - As above Ordered: Body Mass Index (BMI) documented 3008F Comprehensive Metabolic Panel Current tobacco non-user 1036F Depression Screening Negative 3352F Most recent diastolic blood pressure 80-89 mm Hg 3079F Systolic BP <130 mm Hg (Most Recent) 3074F 8. Contusion (T14.8XXA: Other injury of unspecified body region, initial encounter) Warm compresses. If no improvement or change please call. - Fall precautions discussed. Orders: gabapentin, 300 mg = 1 cap(s), Oral, BID, # 180 cap(s), Refills(s) 0, Pharmacy: [facility]/pharmacy #[id number], 180.3, cm, 11/15/22 16:44:00 EDT, Height/Length Dosing, 106.5, kg, 11/15/22 16:44:00 EDT, Weight Dosing Follow-up No qualifying data available Problem List/Past Medical History Ongoing Allergic rhinitis Anemia Anxiety Atherosclerotic heart disease of [place] coronary artery with angina pectoris Contusion Essential hypertension Fatigue Kidney stones Macrocytosis Obesity due to excess calories Psoriasis arthropathica Sleep disorder Spasm of back muscles Vitamin D deficiency Historical COPD (Chronic Obstructive Pulmonary Disease) Assessment Test scale HTN - Hypertension Nephrolithiasis Psoriasis Psoriatic arthritis Procedure/Surgica l History Appendectomy, CABG (Coronary artery bypass grafting) planned, Inguinal hernia. Medications amitriptyline 25 mg Tab, 50 mg= 2 tab(s), Oral, Once a day (at bedtime), 5 refills amLODIPine 5 mg Tab, 5 mg= 1 tab(s), Oral, Daily, 3 refills bisoprolol-hydroc hlorothiazide 10 mg-6.25 mg Tab, 1 tab(s), Oral, Daily buPROPion 150 mg/24 hours XL Tab, 150 mg= 1 tab(s), Oral, q24hr cetirizine 10 mg Tab, 10 mg= 1 tab(s), Oral, Daily cyclobenzaprine 10 mg Tab, 10 mg= 1 tab(s), Oral, TID, PRN fluticasone Nasal 0.05 mg/inh [place], See Instructions gabapentin 300 mg Cap, 300 mg= 1 cap(s), Oral, BID ipratropium Nasal 0.03% [place], See Instructions sildenafil 25 mg Tab, 25 mg= 1 tab(s), Oral, Daily, PRN Taltz Autoinjector 80 mg/mL subcutaneous solution, SubCutaneous, q4wk Allergies morphine (Unknown) Social (more content not included)... Normal [facility] Comment on above: Result Comment: Elec tronically Signed By: Murali MASON, German Manning.br\Date and Time Signed: 11/15/22 17:15 EDT Auto Diffon 10-31-2022 Basophils/100 WBC (Bld) 0.6 % Normal 0.0-2.0 [facility] Comment on above: Order Comment: Order Added by Discern Expert. Performed By: #### 5 [id number], [id number], 1627965, 8824852, 5118758, 7315951 #### [facility] [address] [place] [address] Basophils/Leukocytes Auto (Bld) [Pure # fraction] 0.0 E9/L Normal 0.0-0.2 [facility] Comment on above: Order Comment: Order Added by Discern Expert. Performed By: #### 5 [id number], 1153145, 3139380, 0080710, 4866970, 6122804 #### [facility] [address] [place] [address] Eosinophils/100 WBC (Bld) 1.0 % Normal 0.0-8.0 [facility] Comment on above: Order Comment: Order Added by Discern Expert. Performed By: #### 5 [id number], 4546314, 0441985, 9763104, 2252388, 8553279 #### [facility] [address] [place] [address] Eosinophils/Leukocyt es Auto (Bld) [Pure # fraction] 0.1 E9/L Normal 0.0-0.5 [facility] Comment on above: Order Comment: Order Added by Discern Expert. Performed By: #### 5 [id number], 2606878, 5367061, 6372375, 5545902, 9484979 #### [facility] [address] [place] [address] Lymphocytes/100 WBC (Bld) 27.6 % Normal 14.0-50.0 [facility] Comment on above: Order Comment: Order Added by Discern Expert. Performed By: #### 5 [id number], 0667970, 8151447, 8845199, 5726262, 7816146 #### [facility] [address] [place] [address] Lymphocytes/Leukocyt es Auto (Bld) [Pure # fraction] 1.8 E9/L Normal 1.0-4.0 [facility] Comment on above: Order Comment: Order Added by Lv Expert. Performed By: #### 5 [id number], 0139282, 0412566, 4555627, 7773250, 1132900 #### [facility] [address] [place] [address] Monocytes/100 WBC (Bld) 9.4 % Normal 4.0-14.0 [facility] Comment on above: Order Comment: Order Added by Lv Expert. Performed By: #### 5 [id number], 6732027, 8607013, 0981272, 0607551, 6338920 #### [facility] [address] [place] [address] Monocytes/Leukocytes Auto (Bld) [Pure # fraction] 0.6 E9/L Normal 0.2-1.0 [facility] Comment on above: Order Comment: Order Added by Lv Expert. Performed By: #### 5 [id number], 7710199, 1324982, 9203101, 6072792, 9224088 #### [facility] [address] [place] [address] Neutrophils/100 WBC (Bld) 61.4 % Normal 36.0-75.0 [facility] Comment on above: Order Comment: Order Added by Lv Expert. Performed By: #### 5 [id number], 1939964, 0549507, 8059234, 2953846, 1220700 #### [facility] [address] [place] [address] Neutrophils/Leukocyt es Auto (Bld) [Pure # fraction] 4.0 E9/L Normal 2.0-7.5 [facility] Comment on above: Order Comment: Order Added by Discern Expert. Performed By: #### 5 [id number], 1090048, 5588945, 3595239, 2778406, 2027689 #### [facility] [address] [place] [address] CBC w/ Auto Diffon 3 Erythrocyte distribution width (RBC) [Ratio] 15.3 % High 10.9-14.2 [facility] Comment on above: Performed By: #### 5 [id number], 4558192, 5359885, 5126137, 6563854, 9074328 #### [facility] [address] [place], [place] [address] Hematocrit (Bld) [Volume fraction] 40.4 % Normal 37.7-49.0 [facility] Comment on above: Performed By: #### 5 [id number], 3993339, 8264417, 0778255, 7134976, 2881943 #### [facility] [address] [place] [address] Hemoglobin (Bld) [Mass/Vol] 13.5 g/dL Normal 13.5-17.5 [facility] Comment on above: Performed By: #### 5 [id number], 8269835, 8001388, 2346337, 9024110, 7745623 #### [facility] [address] [place] [address] MCH (RBC) [Entitic mass] 34.9 pg High 27.0-34.0 [facility] Comment on above: Performed By: #### 5 63059459, 0599935, 3925433, 6905438, 9272930, 7300281 #### [facility] [address] [place] [address] MCHC (RBC) [Mass/Vol] 33.3 g/dL Normal 31.4-36.0 [facility] Comment on above: Performed By: #### 5 [id number], 1796731, 5926853, 4524437, 3042825, 4165909 #### [facility] [address] [place] [address] MCV (RBC) [Entitic vol] 104.9 fL High 80.0-100.0 [facility] Comment on above: Performed By: #### 5 [id number], 0114378, 2241411, 4861132, 6454035, 9559828 #### [facility] [address] [place] [address] Platelet mean volume (Bld) [Entitic vol] 8.4 fL Normal 6.4-10.8 [facility] Comment on above: Performed By: #### 5 21318365, 7292381, 6777843, 0138954, 9294476, 4783199 #### [facility] [address] [place], [place] [address] Platelets (Bld) [#/Vol] 275.0 E9/L Normal 150.0-500.0 [facility] Comment on above: Performed By: #### 5 82672489, 7358813, 9589927, 9597488, 2650326, 2272605 #### [facility] [address] [place], [place] [address] RBC (Bld) [#/Vol] 3.9 E12/L Low 4.3-5.9 [facility] Comment on above: Performed By: #### 5 [id number], 3167618, 5874650, 0331776, 7484483, 0006426 #### [facility] [address] [place] [address] WBC corrected for nucl RBC Auto (Bld) [#/Vol] 6.5 E9/L Normal 4.0-11.0 [facility] Comment on above: Performed By: #### 5 77845696, 7090305, 7767625, 5906022, 9444741, 2088711 #### [facility] [address] [place] [address] CHEMISTRYOrdered By: SYSTEM SYSTEM on 10-31-2022 25-hydroxyvitamin D3 [Mass/Vol] 42.5 ng/mL Normal 30.0 - 100.0 ng/mL [facility] Cholesterol [Mass/Vol] 144 mg/dL Normal 120 - 200 mg/dL [facility] Cholesterol in HDL [Mass/Vol] 49 mg/dL Invalid Interpretation Code [facility] Cholesterol in LDL [Mass/Vol] 73 mg/dL Normal <=129mg/dL [facility] Cholesterol in VLDL [Mass/Vol] 21 mg/dL Normal 7 - 40 mg/dL [facility] CRP [Mass/Vol] mg/dL Normal <=1.9mg/dL [facility] Remis ol Triglyceride [Mass/Vol] 107 mg/dL Normal <=149mg/dL [facility] TSH Qn 2.30 m[IU]/L Normal 0.34 - 5.60 mcIU/mL [facility] CRPon 10-31-2022 CRP [Mass/Vol] mg/L Normal <=1.9 [facility] Comment on above: Performed By: #### 5 [id number], 2119132, 6622552, 6531594, 5528725, 2786220 #### [facility] [address] [place] [address] Consultation Noteon 11-01-19 23 Consultation Note [id number]#[id number]:127 Normal [facility] HEMATOLOGYOrdered By: SYSTEM SYSTEM on 10-31-2022 Basophils/100 WBC (Bld) 0.6 % Normal 0.0 - 2.0 % [facility] HemeAutoSS Basophils/Leukocytes Auto (Bld) [Pure # fraction] 0.0 E9/L Normal 0.0 - 0.2 E9/L [facility]eAuto[facility] Eosinophils/100 WBC (Bld) 1.0 % Normal 0.0 - 8.0 % [facility]eAutoSS Eosinophils/Leukocyt es Auto (Bld) [Pure # fraction] 0.1 E9/L Normal 0.0 - 0.5 E9/L [facility]eAutoSS Lymphocytes/100 WBC (Bld) 27.6 % Normal 14.0 - 50.0 % [facility]eAutoSS Lymphocytes/Leukocyt es Auto (Bld) [Pure # fraction] 1.8 E9/L Normal 1.0 - 4.0 E9/L [facility]eAutoSS Monocytes/100 WBC (Bld) 9.4 % Normal 4.0 - 14.0 % [facility]eAutoSS Monocytes/Leukocytes Auto (Bld) [Pure # fraction] 0.6 E9/L Normal 0.2 - 1.0 E9/L [facility] Neutrophils/100 WBC (Bld) 61.4 % Normal 36.0 - 75.0 % [facility]eAutoSS Neutrophils/Leukocyt es Auto (Bld) [Pure # fraction] 4.0 E9/L Normal 2.0 - 7.5 E9/L [facility] HEMATOLOGYOrdered By: Maria Victoria Alexander on 10-31-2022 Erythrocyte distribution width (RBC) [Ratio] 15.3 % High 10.9 - 14.2 % [facility] Hematocrit (Bld) [Volume fraction] 40.4 % Normal 37.7 - 49.0 % [facility] Hemoglobin (Bld) [Mass/Vol] 13.5 g/dL Normal 13.5 - 17.5 gm/dL [facility] MCH (RBC) [Entitic mass] 34.9 pg High 27.0 - 34.0 pg [facility] MCHC (RBC) [Mass/Vol] 33.3 g/dL Normal 31.4 - 36.0 gm/dL [facility] MCV (RBC) [Entitic vol] 104.9 fL High 80.0 - 100.0 fL [facility] Platelet mean volume (Bld) [Entitic vol] 8.4 fL Normal 6.4 - 10.8 fL [facility]eAutoSS Platelets (Bld) [#/Vol] 275.0 E9/L Normal 150.0 - 500.0 E9/L [facility]AutoSS RBC (Bld) [#/Vol] 3.9 E12/L Low 4.3 - 5.9 E12/L [facility] WBC corrected for nucl RBC Auto (Bld) [#/Vol] 6.5 E9/L Normal 4.0 - 11.0 E9/L [facility]eAutoSS Lipid Panelon 10-31-2022 Cholesterol [Mass/Vol] 144 mg/dL Normal 120-200 [facility] Comment on above: Performed By: #### 5 [id number], 5412059, 9888068, 7137078, 7277961, 5603325 #### [facility] [address] [place] [address] Cholesterol in HDL [Mass/Vol] 49 mg/dL Invalid Interpretation Code [facility] Comment on above: Result Comment: HDL > or equal to 60 mg/dL: Low cardiovascular risk HDL < 40 mg/dL : High cardiovascular risk Performed By: #### 5 [id number], 5874608, 1750540, 3310223, 5385809, 6177197 #### [facility] [address] [place] [address] Cholesterol in LDL [Mass/Vol] 73 mg/dL Normal <=129 [facility] Comment on above: Performed By: #### 5 [id number], 0105730, 0862769, 6020691, 3429682, 7162943 #### [facility] [address] [place] [address] Cholesterol in VLDL [Mass/Vol] 21 mg/dL Normal 7-40 [facility] Comment on above: Performed By: #### 5 80135874, 5963445, 3994858, 7266247, 4812131, 7363667 #### [facility] [address] [place] [address] Triglyceride [Mass/Vol] 107 mg/dL Normal <=149 [facility] Comment on above: Performed By: #### 5 [id number], 9066988, 6406930, 9661975, 6107467, 4430480 #### [facility] [address] [place] [address] TSHon 10-31-2022 TSH Qn 2.30 m[IU]/L Normal 0.34-5.60 [facility] Comment on above: Performed By: #### 5 56873649, 8273035, 8026040, 1804391, 8904513, 0254269 #### [facility] [address] [place] [address] Vitamin D 25 Hydroxyon 10-31 25-hydroxyvitamin D3 [Mass/Vol] 42.5 ng/mL Normal 30.0-100.0 [facility] Comment on above: Result Comment: Vit piper D deficiency has been defined as a level of serum 25-OH vitamin D less than 20 ng/mL (1,2) by the [place] of [employer] and an Endocrine Society practice guideline. The Endocrine Society further defined vitamin D insufficiency as a level between 21 and 29 ng/mL (2). 1. IOM ([place] of [employer]). 2010. Dietary reference intakes for calcium and D. Elena [place]: The National Academies Press. 2. Roberta MF, Ofelia HOWARD, Alden BEARD, et al. Evaluation, treatment, and prevention of vitamin D deficiency: an Endocrine Society clinical practice guideline. JCEM. 2010; 96 (7):1911-30. Performed By: #### 5 [id number], 3065926, 3334997, 1321917, 9219747, 7873584 #### [facility] [address] [place] [address] Physician Referralon 023 Physician Referral [id number]#1.00CD:127 Normal [facility] Ambulatory Visit Summaryon 0 10-20-2022 Ambulatory Visit Summary GLENDA BUCKLEY :1965 Visit Date:10/20/2022 Ambulatory Visit Instructions Your Diagnosis Kidney stones Essential hypertension Anxiety Vitamin D deficiency Atherosclerotic heart disease of [place] coronary artery with angina pectoris Anemia Spasm of back muscles Psoriasis arthropathica Non-smoker BMI 33.0-33.9,adult Your Care Team Attending Physician - German Carrion MD Primary Care Physician - German Carrion MD This Is Your Medications List buPROPion (Wellbutrin XL 150 mg/24 hours Tab-ER) Contact prescribing physician if questions or concerns amitriptyline (amitriptyline 25 mg Tab) amlodipine (amLODIPine 5 mg Tab) bisoprolol-hydroc hlorothiazide (bisoprolol-hydro chlorothiazide 10 mg-6.25 mg Tab) cetirizine (cetirizine 10 mg Tab) cyclobenzaprine (cyclobenzaprine 10 mg Tab) fluticasone nasal (fluticasone Nasal 0.05 mg/inh [place]) gabapentin (gabapentin 300 mg Cap) ipratropium nasal (ipratropium Nasal 0.03% [place]) ixekizumab (Taltz Autoinjector 80 mg/mL subcutaneous solution) sildenafil (sildenafil 25 mg Tab) Procedures Performed Appendectomy, CABG (Coronary artery bypass grafting) planned, Inguinal hernia. Discharge Vitals Heart Rate (Peripheral) 78 Blood Pressure 132/90 Height 180.3 cm Height 71 in Weight 109.1 kg Weight 240.02 lb BMI 33.56 What to do next Scheduled Follow-Up Appointments Sunday 4:40 PM EDT With: Murali MASON, German Chiu Where: [facility] Normal [facility] Patient Logson 10-20-2022 Patient Logs [id number]#[id number]:127 Normal [facility] Physician Referralon 023 Physician Referral [id number]#1.00CD:12 7 Normal [facility] Operative Reporton 3 Operative Report [id number]#[id number]:127 Normal [facility] CBC AUTO DIFFon 07-29-2022 BASO # 0.0 103/ul Normal 0.0-0.1 [facility] Comment on above: Performed By: #### C BC #### [facility] [address] [place] [address] Dr. Roosevelt Verde Basophils/100 WBC (Bld) 0.4 % Normal 0.2-2.0 [facility] Comment on above: Performed By: #### C BC #### [facility] [address] [place] [address] Dr. Roosevelt Verde EO # 0.0 103/ul Normal 0.0-0.7 [facility] Comment on above: Performed By: #### C BC #### [facility] [address] [place] [address] Dr. Roosevelt Verde Eosinophils/100 WBC (Bld) 0.4 % Critically low 0.9-7.0 [facility] Comment on above: Performed By: #### C BC #### [facility] [address] [place] [address] Dr. Roosevelt Verde Erythrocyte distribution width (RBC) [Ratio] 13.3 % Normal 11.0-15.0 [facility] Comment on above: Performed By: #### C BC #### [facility] [address] [place] [address] Dr. Roosevelt Verde Hematocrit (Bld) [Volume fraction] 42.9 % Normal 42.0-54.0 [facility] Comment on above: Performed By: #### C BC #### [facility] [address] [place] [address] Dr. Roosevelt Verde Hemoglobin (Bld) [Mass/Vol] 13.9 g/dL Critically low 14.0-18.0 [facility] Comment on above: Performed By: #### C BC #### [facility] [address] [place] [address] Dr. Roosevelt Verde IG # 0.02 10e3/ul Normal 0.00-0.03 [facility] Comment on above: Performed By: #### C BC #### [facility] [address] [place] [address] Dr. Roosevelt Verde IG % 0.2 % Normal 0.0-0.5 [facility] Comment on above: Performed By: #### C BC #### [facility] [address] [place] [address] Dr. Roosevelt Verde LYMPH # 1.1 103/ul Critically low 1.2-3.8 [facility] Comment on above: Performed By: #### C BC #### [facility] [address] [place] [address] Dr. Roosevelt Verde Lymphocytes/100 WBC (Bld) 13.5 % Critically low 20.5-60.0 [facility] Comment on above: Performed By: #### C BC #### [facility] [address] [place] [address] Dr. Roosevelt Verde MANUAL DIFF REQ NO Normal [facility] Comment on above: Performed By: #### C BC #### [facility] [address] [place] [address] Dr. Roosevelt Verde MCH (RBC) [Entitic mass] 34.6 pg Critically high 25.9-34.0 [facility] Comment on above: Performed By: #### C BC #### [facility] [address] [place] [address] Dr. Roosevelt Verde MCHC (RBC) [Mass/Vol] 32.4 g/dL Normal 29.9-35.2 [facility] Comment on above: Performed By: #### C BC #### [facility] [address] [place] [address] Dr. Roosevelt Verde MCV (RBC) [Entitic vol] 106.7 fL Critically high 80.0-94.0 [facility] Comment on above: Performed By: #### C BC #### [facility] [address] [place] [address] Dr. Roosevelt Verde MONO # 0.6 103/ul Normal 0.3-0.8 [facility] Comment on above: Performed By: #### C BC #### [facility] [address] [place] [address] Dr. Roosevelt Verde Monocytes/100 WBC (Bld) 7.6 % Normal 1.7-12.0 [facility] Comment on above: Performed By: #### C BC #### [facility] [address] [place] [address] Dr. Roosevelt Verde NEUT # 6.3 103/ul Normal 1.4-6.5 [facility] Comment on above: Performed By: #### C BC #### [facility] [address] [place] [address] Dr. Roosevelt Verde Neutrophils/100 WBC (Bld) 77.9 % Critically high 43.0-75.0 [facility] Comment on above: Performed By: #### C BC #### [facility] [address] [address] [address] Roosevelt Verde Platelet mean volume (Bld) [Entitic vol] 9.4 fL Critically low 9.5-13.5 [facility] Comment on above: Performed By: #### C BC #### [facility] [address] [address] [address] Roosevelt Verde PLT 315 103/ul Normal 150-450 [facility] Comment on above: Performed By: #### C BC #### [facility] [address] [address] [address] Roosevelt Verde RBC 4.02 106/ul Critically low 4.70-6.10 [facility] Comment on above: Performed By: #### C BC #### [facility] [address] [address] [address] Roosevelt Verde WBC 8.1 103/ul Normal 4.0-11.0 [facility] Comment on above: Performed By: #### C BC #### [facility] [address] [address] [address] Roosevelt Verde CRPon 07-29-2022 CRP 4.4 mg/dL Critically high <=1.0 [facility] Comment on above: Performed By: #### C BC #### [facility] [address] [address] [address] Roosevelt Verde MYOGLOBINon 07-29-2022 FISH 33 ng/mL Normal 16-96 [facility] Comment on above: Performed By: #### C BC #### [facility] [address] [address] [address] Roosevelt Verde PROF 14(COMP METB)on 023 Albumin [Mass/Vol] 3.8 g/dL Normal 3.4-5.0 [facility] Comment on above: Performed By: #### C BC #### [facility] [address] [place] [address] Dr. Roosevelt Verde Albumin/Globulin [Mass ratio] 1.0 {ratio} Normal [facility] Comment on above: Performed By: #### C BC #### [facility] [address] [address] [address] Roosevelt Verde ALP [Catalytic activity/Vol] 83 U/L Normal 46-116 [facility] Comment on above: Performed By: #### C BC #### [facility] [address] [address] [address] Roosevelt Verde ALT [Catalytic activity/Vol] 36 U/L Normal 16-63 [facility] Comment on above: Performed By: #### C BC #### [facility] [address] [place] [address] Dr. Roosevelt Verde Anion gap [Moles/Vol] 11.9 mmol/L Normal [facility] Comment on above: Performed By: #### C BC #### [facility] [address] [place] [address] Dr. Roosevelt Verde AST [Catalytic activity/Vol] 13 U/L Critically low 15-37 [facility] Comment on above: Performed By: #### C BC #### [facility] [address] [place] [address] Dr. Roosevelt Verde Bilirubin [Mass/Vol] 0.6 mg/dL Normal 0.2-1.0 [facility] Comment on above: Performed By: #### C BC #### [facility] [address] [place] [address] Dr. Roosevelt Verde Calcium [Mass/Vol] 8.6 mg/dL Normal 8.5-10.1 [facility] Comment on above: Performed By: #### C BC #### [facility] [address] [place] [address] Dr. Roosevelt Verde Chloride [Moles/Vol] 106 mmol/L Normal 98-107 [facility] Comment on above: Performed By: #### C BC #### [facility] [address] [place] [address] Dr. Roosevelt Verde CO2 [Moles/Vol] 25.8 mmol/L Normal 21.0-32.0 [facility] Comment on above: Performed By: #### C BC #### [facility] [address] [address] [address] Roosevelt Verde Creatinine [Mass/Vol] 1.52 mg/dL Critically high 0.70-1.30 [facility] Comment on above: Performed By: #### C BC #### [facility] [address] [address] Dr. Roosevelt Verde EGFR-AF TRISTANIAN 58 mL/min/1.73m2 Critically low >=60 [facility] Comment on above: Performed By: #### C BC #### [facility] [address] [address] [address] Roosevelt Verde EGFR-NON AF TRISTANIAN 48 mL/min/1.73m2 Critically low >=60 [facility] Comment on above: Performed By: #### C BC #### [facility] [address] [address] [address] Roosevelt Verde Globulin (S) [Mass/Vol] 3.7 g/dL Normal [facility] Comment on above: Performed By: #### C BC #### [facility] [address] [address] [address] Roosevelt Verde Glucose [Mass/Vol] 123 mg/dL Critically high 74-106 [facility] Comment on above: Performed By: #### C BC #### [facility] [address] [address] [address] Roosevelt Verde Potassium [Moles/Vol] 4.7 mmol/L Normal 3.5-5.1 [facility] Comment on above: Performed By: #### C BC #### [facility] [address] [address] [address] Roosevelt Verde Protein [Mass/Vol] 7.5 g/dL Normal 6.4-8.2 The [facility] Comment on above: Performed By: #### C BC #### [facility] [address] [address] [address] Roosevelt Verde Sodium [Moles/Vol] 139 mmol/L Normal 136-145 [facility] Comment on above: Performed By: #### C BC #### [facility] [address] [place] [address] Dr. Roosevelt Verde Urea nitrogen [Mass/Vol] 22.0 mg/dL Critically high 7.0-18.0 [facility] Comment on above: Performed By: #### C BC #### [facility] [address] [place] [address] Dr. Roosevelt Verde Urea nitrogen/Creatinine [Mass ratio] 14.5 mg/mg Normal [facility] Comment on above: Performed By: #### C BC #### [facility] [address] [place], [place] [id number] Dr. Roosevelt Verde SED RATE [facility] 2022 SED RATE 32 mm/hr Critically high <=20 [facility] Comment on above: Performed By: #### C BC #### [facility] [address] [place] [address] Dr. Roosevelt Verde Consultation Noteon 07-27-19 Consultation Note [id number]#1.00CD:127 Normal [facility] Consultation Note [id number]:127 Normal [facility] Consultation Note [id number]#1.00CD:127 Normal [facility] Lab Reportson 07-21-2022 Lab Reports [id number]#[id number]:127 Normal [facility] CBC AUTO DIFFon 07-20-2022 BASO # 0.0 103/ul Normal 0.0-0.1 [facility] Comment on above: Performed By: #### C BC #### [facility] [address] [place], [place] [address] Dr. Roosevelt Verde Basophils/100 WBC (Bld) 0.5 % Normal 0.2-2.0 [facility] Comment on above: Performed By: #### C BC #### [facility] [address] [place] [address] Dr. Roosevelt Verde EO # 0.0 103/ul Normal 0.0-0.7 [facility] Comment on above: Performed By: #### C BC #### [facility] [address] [place] [address] Dr. Roosevelt Verde Eosinophils/100 WBC (Bld) 0.5 % Critically low 0.9-7.0 [facility] Comment on above: Performed By: #### C BC #### [facility] [address] [place] [address] Dr. Roosevelt Verde Erythrocyte distribution width (RBC) [Ratio] 13.1 % Normal 11.0-15.0 [facility] Comment on above: Performed By: #### C BC #### [facility] [address] [place] [address] Dr. Roosevelt Verde Hematocrit (Bld) [Volume fraction] 39.2 % Critically low 42.0-54.0 [facility] Comment on above: Performed By: #### C BC #### [facility] [address] [place] [address] Dr. Roosevelt Verde Hemoglobin (Bld) [Mass/Vol] 12.7 g/dL Critically low 14.0-18.0 [facility] Comment on above: Performed By: #### C BC #### [facility] [address] [place] [address] Dr. Roosevelt Verde IG # 0.03 10e3/ul Normal 0.00-0.03 [facility] Comment on above: Performed By: #### C BC #### [facility] [address] [place] [address] Dr. Roosevelt Verde IG % 0.4 % Normal 0.0-0.5 [facility] Comment on above: Performed By: #### C BC #### [facility] [address] [place] [address] Dr. Roosevelt Verde LYMPH # 1.6 103/ul Normal 1.2-3.8 [facility] Comment on above: Performed By: #### C BC #### [facility] [address] [place] [address] Dr. Roosevelt Verde Lymphocytes/100 WBC (Bld) 21.7 % Normal 20.5-60.0 [facility] Comment on above: Performed By: #### C BC #### [facility] [address] [place] [address] Dr. Roosevelt Verde MANUAL DIFF REQ NO Normal [facility] Comment on above: Performed By: #### C BC #### [facility] [address] [place] [address] Dr. Roosevelt Verde MCH (RBC) [Entitic mass] 34.0 pg Normal 25.9-34.0 [facility] Comment on above: Performed By: #### C BC #### [facility] [address] [place] [address] Dr. Roosevelt Verde MCHC (RBC) [Mass/Vol] 32.4 g/dL Normal 29.9-35.2 [facility] Comment on above: Performed By: #### C BC #### [facility] [address] [place] [address] Dr. Roosevelt Verde MCV (RBC) [Entitic vol] 104.8 fL Critically high 80.0-94.0 [facility] Comment on above: Performed By: #### C BC #### [facility] [address] [place] [address] Dr. Roosevelt Verde MONO # 0.6 103/ul Normal 0.3-0.8 [facility] Comment on above: Performed By: #### C BC #### [facility] [address] [place] [address] Dr. Roosevelt Verde Monocytes/100 WBC (Bld) 8.2 % Normal 1.7-12.0 [facility] Comment on above: Performed By: #### C BC #### [facility] [address] [place] [address] Dr. Roosevelt Verde NEUT # 5.1 103/ul Normal 1.4-6.5 [facility] Comment on above: Performed By: #### C BC #### [facility] [address] [place] [address] Dr. Roosevelt Verde Neutrophils/100 WBC (Bld) 68.7 % Normal 43.0-75.0 [facility] Comment on above: Performed By: #### C BC #### [facility] [address] [address] [address] Roosevelt Verde Platelet mean volume (Bld) [Entitic vol] 9.2 fL Critically low 9.5-13.5 [facility] Comment on above: Performed By: #### C BC #### [facility] [address] [place] [address] Dr. Roosevelt Verde PLT 286 103/ul Normal 150-450 [facility] Comment on above: Performed By: #### C BC #### [facility] [address] [place] [address] Dr. Roosevelt Verde RBC 3.74 106/ul Critically low 4.70-6.10 [facility] Comment on above: Performed By: #### C BC #### [facility] [address] [place] [address] Dr. Roosevelt Verde WBC 7.5 103/ul Normal 4.0-11.0 [facility] Comment on above: Performed By: #### C BC #### [facility] [address] [place] [address] Dr. Roosevelt Verde CREATININEon 07-20-2022 Creatinine [Mass/Vol] 1.53 mg/dL Critically high 0.70-1.30 [facility] Comment on above: Performed By: #### C QUE, CRP, ALT, AST #### [facility] [address] [place] [address] Dr. Roosevelt Verde EGFR-AF TRISTANIAN 57 mL/min/1.73m2 Critically low >=60 [facility] Comment on above: Performed By: #### C QUE, CRP, ALT, AST #### [facility] [address] [place] [address] Dr. Roosevelt Verde EGFR-NON AF TRISTANIAN 47 mL/min/1.73m2 Critically low >=60 [facility] Comment on above: Performed By: #### C QUE, CRP, ALT, AST #### [facility] [address] [place] [address] Dr. Roosevelt Verde CRPon 07-20-2022 CRP [Mass/Vol] mg/L Normal <=1.0 [facility] Comment on above: Performed By: #### C QUE, CRP, ALT, AST #### [facility] [address] [place] [address] Dr. Roosevelt Verde SED RATE WESTERGRENon 2022 SED RATE 9 mm/hr Normal <=20 [facility] Comment on above: Performed By: #### C BC #### [facility] [address] [place] [address] Dr. Roosevelt Verde SGOTon 07-20-2022 AST [Catalytic activity/Vol] 18 U/L Normal 15-37 [facility] Comment on above: Performed By: #### C QUE, CRP, ALT, AST #### [facility] [address] [place] [address] Dr. Roosevelt [facility] ALT [Catalytic activity/Vol] 44 U/L Normal 16-63 [facility] Comment on above: Performed By: #### C QUE, CRP, ALT, AST #### [facility] [address] [place] [address] Dr. Roosevelt Verde Consultation Noteon 07-04-19 Consultation Note [id number]#1.00CD:127 Normal [facility] Consultation Noteon 06-21-19 Consultation Note [id number]#1.00CD:127 Normal [facility] CBC AUTO DIFFon 05-23-2022 BASO # 0.1 103/ul Normal 0.0-0.1 [facility] Comment on above: Performed By: #### C BC #### [facility] [address] [place] [address] Dr. Roosevelt Verde Basophils/100 WBC (Bld) 0.5 % Normal 0.2-2.0 [facility] Comment on above: Performed By: #### C BC #### [facility] [address] [place] [address] Dr. Roosevelt Verde EO # 0.1 103/ul Normal 0.0-0.7 [facility] Comment on above: Performed By: #### C BC #### [facility] [address] [place] [address] Dr. Roosevelt Verde Eosinophils/100 WBC (Bld) 0.6 % Critically low 0.9-7.0 [facility] Comment on above: Performed By: #### C BC #### [facility] [address] [place] [address] Dr. Roosevelt Verde Erythrocyte distribution width (RBC) [Ratio] 14.0 % Normal 11.0-15.0 [facility] Comment on above: Performed By: #### C BC #### [facility] [address] [place] [address] Dr. Roosevelt Verde Hematocrit (Bld) [Volume fraction] 37.3 % Critically low 42.0-54.0 [facility] Comment on above: Performed By: #### C BC #### [facility] [address] [place] [address] Dr. Roosevelt Verde Hemoglobin (Bld) [Mass/Vol] 12.2 g/dL Critically low 14.0-18.0 [facility] Comment on above: Performed By: #### C BC #### [facility] [address] [place] [address] Dr. Roosevelt Verde IG # 0.03 10e3/ul Normal 0.00-0.03 [facility] Comment on above: Performed By: #### C BC #### [facility] [address] [place] [address] Dr. Roosevelt Verde IG % 0.3 % Normal 0.0-0.5 [facility] Comment on above: Performed By: #### C BC #### [facility] [address] [place] [address] Dr. Roosevelt Verde LYMPH # 1.6 103/ul Normal 1.2-3.8 [facility] Comment on above: Performed By: #### C BC #### [facility] [address] [place] [address] Dr. Roosevelt Verde Lymphocytes/100 WBC (Bld) 16.5 % Critically low 20.5-60.0 [facility] Comment on above: Performed By: #### C BC #### [facility] [address] [place] [address] Dr. Roosevelt Verde MANUAL DIFF REQ NO Normal [facility] Comment on above: Performed By: #### C BC #### [facility] [address] [place] [address] Dr. Roosevelt Verde MCH (RBC) [Entitic mass] 35.1 pg Critically high 25.9-34.0 [facility] Comment on above: Performed By: #### C BC #### [facility] [address] [place] [address] Dr. Roosevelt Verde MCHC (RBC) [Mass/Vol] 32.7 g/dL Normal 29.9-35.2 [facility] Comment on above: Performed By: #### C BC #### [facility] [address] [place] [address] Dr. Roosevelt Verde MCV (RBC) [Entitic vol] 107.2 fL Critically high 80.0-94.0 [facility] Comment on above: Result Comment: 1+ m acrocytosis Performed By: #### C BC #### [facility] [address] [place] [address] Dr. Roosevelt Verde MONO # 0.7 103/ul Normal 0.3-0.8 [facility] Comment on above: Performed By: #### C BC #### [facility] [address] [place] [address] Dr. Roosevelt Verde Monocytes/100 WBC (Bld) 7.6 % Normal 1.7-12.0 [facility] Comment on above: Performed By: #### C BC #### [facility] [address] [place] [address] Dr. Roosevelt Verde NEUT # 7.0 103/ul Critically high 1.4-6.5 [facility] Comment on above: Performed By: #### C BC #### [facility] [address] [place] [address] Dr. Roosevelt Verde Neutrophils/100 WBC (Bld) 74.5 % Normal 43.0-75.0 [facility] Comment on above: Performed By: #### C BC #### [facility] [address] [address] [address] Roosevelt Verde Platelet mean volume (Bld) [Entitic vol] 9.2 fL Critically low 9.5-13.5 [facility] Comment on above: Performed By: #### C BC #### [facility] [address] [address] [address] Roosevelt Verde PLT 296 103/ul Normal 150-450 [facility] Comment on above: Performed By: #### C BC #### [facility] [address] [address] [address] Roosevelt Verde RBC 3.48 106/ul Critically low 4.70-6.10 [facility] Comment on above: Performed By: #### C BC #### [facility] [address] [address] [address] Roosevelt Verde WBC 9.4 103/ul Normal 4.0-11.0 [facility] Comment on above: Performed By: #### C BC #### [facility] [address] [address] [address] Roosevelt Verde CREATININEon 05-23-2022 Creatinine [Mass/Vol] 1.33 mg/dL Critically high 0.70-1.30 [facility] Comment on above: Performed By: #### A ST, CREA, CRP, ALT ####[facility] [address] [id number] Verde EGFR-AF TRISTANIAN >60 Normal >=60 [facility] Comment on above: Performed By: #### A ST, CREA, CRP, ALT ####[facility] [address] [id number][address] Roosevelt Verde EGFR-NON AF TRISTANIAN 56 mL/min/1.73m2 Critically low >=60 [facility] Comment on above: Performed By: #### A ST, CREA, CRP, ALT ####[facility] [address] [id number]. Roosevelt Verde CRPon 05-23-2022 CRP 0.3 mg/dL Normal <=1.0 [facility] Comment on above: Performed By: #### A ST, CREA, CRP, ALT ####[facility] [address] [id number][address] Roosevelt Verde SED RATE WESTERGRENon 2022 SED RATE 11 mm/hr Normal <=20 [facility] Comment on above: Performed By: #### S EDR ####[facility] [address] [address]Dr. Roosevelt Verde SGOTon 05-23-2022 AST [Catalytic activity/Vol] 20 U/L Normal 15-37 [facility] Comment on above: Performed By: #### A ST, CREA, CRP, ALT ####[facility] [address] [address]Dr. Roosevelt Verde SGPTon 05-23-2022 ALT [Catalytic activity/Vol] 36 U/L Normal 16-63 [facility] Comment on above: Performed By: #### A ST, CREA, CRP, ALT ####[facility] [address] [address]Dr. Roosevelt Verde QUANTIFERON TB GOLD PLUSon 1 05-24-2021 QuantiFERON Criteria Comment Normal [facility] Comment on above: Result Comment: Cayden tiFERON-TB Gold Plus is a qualitative indirect test for M tuberculosis infection (including disease) and is intended for use in conjunction with risk assessment, radiography, and other medical and diagnostic evaluations. The QuantiFERON-TB Gold Plus result is determined by subtracting the Nil value from either TB antigen (Ag) value. The Mitogen tube serves as a control for the test. Performed By: #### C BC #### [facility] [address] [place] [address] Dr. Roosevelt Verde QuantiFERON Incubation Incubation performed. Normal [facility] Comment on above: Performed By: #### C BC #### [facility] [address] [place] [address] Dr. Roosevelt Verde QuantiFERON Mitogen Value 2.17 IU/mL Normal [facility] Comment on above: Performed By: #### C BC #### [facility] [address] [address] [address] Roosevelt Verde QuantiFERON Nil Value 0.03 IU/mL Normal [facility] Comment on above: Performed By: #### C BC #### [facility] [address] [address] [address] Roosevelt Verde QuantiFERON TB1 Ag Value 0.04 IU/mL Normal [facility] Comment on above: Performed By: #### C BC #### [facility] [address] [address] [address] Roosevelt Verde QuantiFERON TB2 Ag Value 0.03 IU/mL Normal [facility] Comment on above: Performed By: #### C BC #### [facility] [address] [address] [address] Roosevelt Verde QuantiFERON-TB Gold Plus Negative Normal Negative [facility] Comment on above: Result Comment: No r esponse to M tuberculosis antigens detected. Infection with M tuberculosis is unlikely, but high risk individuals should be considered for additional testing (ATS/IDSA/CDC Clinical Practice Guidelines, 2017). The reference range is an Antigen minus Nil result of <0.35 IU/mL. Chemiluminescence immunoassay methodology Performed By: #### C BC #### [facility] [address] [address] [address] Roosevelt Verde HEP B SURFACE ANTIGEN SCREEN on 03-22-2022 HBsAg Screen Negative Normal Negative [facility] Comment on above: Performed By: #### H BSANS ####[facility] [address] [id number] Roosevelt Verde HEPATITIS C ANTIBODYon 03-22 Hep C Virus Ab <0.1 Normal 0.0-0.9 [facility] Comment on above: Result Comment: Nega tive: < 0.8 Indeterminate: 0.8 - 0.9 Positive: > 0.9 . HCV antibody alone does not differentiate between previous resolved infection and active infection. The CDC and current clinical guidelines recommend that a positive HCV antibody result be followed up with an HCV RNA test to support the diagnosis of acute HCV infection. [facility] offers Hepatitis C Virus (HCV) RNA, Diagnosis, DAVON (411463) and Hepatitis C Virus (HCV) Antibody with reflex to Quantitative Real-time PCR ([id number]). Performed By: #### H CV ####[facility] [address] [address]Dr. Roosevelt Verde HIV 1 AND 2 WITH REFLEXon HIV Screen 4th Generation wRfx Non-Reactive Normal Non Reactive [facility] Comment on above: Result Comment: HIV Negative HIV-1/HIV-2 antibodies and HIV-1 p24 antigen were NOT detected. There is no laboratory evidence of HIV infection. Performed By: #### C BC #### [facility] [address] [place] [address] Dr. Roosevelt Verde CBC AUTO DIFFon 03-21-2022 BASO # 0.0 103/ul Normal 0.0-0.1 [facility] Comment on above: Performed By: #### C BC #### [facility] [address] [place] [address] Dr. Roosevelt Verde Basophils/100 WBC (Bld) 0.3 % Normal 0.2-2.0 [facility] Comment on above: Performed By: #### C BC #### [facility] [address] [place] [address] Dr. Roosevelt Verde EO # 0.1 103/ul Normal 0.0-0.7 [facility] Comment on above: Performed By: #### C BC #### [facility] [address] [place] [address] Dr. Roosevelt Verde Eosinophils/100 WBC (Bld) 1.1 % Normal 0.9-7.0 [facility] Comment on above: Performed By: #### C BC #### [facility] [address] [place] [address] Dr. Roosevelt Verde Erythrocyte distribution width (RBC) [Ratio] 14.6 % Normal 11.0-15.0 [facility] Comment on above: Performed By: #### C BC #### [facility] [address] [place] [address] Dr. Roosevelt Verde Hematocrit (Bld) [Volume fraction] 34.7 % Critically low 42.0-54.0 [facility] Comment on above: Performed By: #### C BC #### [facility] [address] [place] [address] Dr. Roosevelt Verde Hemoglobin (Bld) [Mass/Vol] 11.4 g/dL Critically low 14.0-18.0 [facility] Comment on above: Performed By: #### C BC #### [facility] [address] [place] [address] Dr. Roosevelt Verde IG # 0.02 10e3/ul Normal 0.00-0.03 [facility] Comment on above: Performed By: #### C BC #### [facility] [address] [place] [address] Dr. Roosevelt Verde IG % 0.3 % Normal 0.0-0.5 [facility] Comment on above: Performed By: #### C BC #### [facility] [address] [place] [address] Dr. Roosevelt Verde LYMPH # 1.1 103/ul Critically low 1.2-3.8 [facility] Comment on above: Performed By: #### C BC #### [facility] [address] [place] [address] Dr. Roosevelt Verde Lymphocytes/100 WBC (Bld) 16.9 % Critically low 20.5-60.0 [facility] Comment on above: Performed By: #### C BC #### [facility] [address] [place] [address] Dr. Roosevelt Verde MANUAL DIFF REQ NO Normal [facility] Comment on above: Performed By: #### C BC #### [facility] [address] [place] [address] Dr. Roosevelt Verde MCH (RBC) [Entitic mass] 33.8 pg Normal 25.9-34.0 [facility] Comment on above: Performed By: #### C BC #### [facility] [address] [place] [address] Dr. Roosevelt Verde MCHC (RBC) [Mass/Vol] 32.9 g/dL Normal 29.9-35.2 [facility] Comment on above: Performed By: #### C BC #### [facility] [address] [place] [address] Dr. Roosevelt Verde MCV (RBC) [Entitic vol] 103.0 fL Critically high 80.0-94.0 [facility] Comment on above: Performed By: #### C BC #### [facility] [address] [place] [address] Dr. Roosevelt Verde MONO # 0.6 103/ul Normal 0.3-0.8 [facility] Comment on above: Performed By: #### C BC #### [facility] [address] [place] [address] Dr. Roosevelt Verde Monocytes/100 WBC (Bld) 9.8 % Normal 1.7-12.0 [facility] Comment on above: Performed By: #### C BC #### [facility] [address] [place] [address] Dr. Roosevelt Verde NEUT # 4.6 103/ul Normal 1.4-6.5 [facility] Comment on above: Performed By: #### C BC #### [facility] [address] [place] [address] Dr. Roosevelt Verde Neutrophils/100 WBC (Bld) 71.6 % Normal 43.0-75.0 [facility] Comment on above: Performed By: #### C BC #### [facility] [address] [place] [address] Dr. Roosevelt Verde Platelet mean volume (Bld) [Entitic vol] 9.6 fL Normal 9.5-13.5 [facility] Comment on above: Performed By: #### C BC #### [facility] [address] [place] [address] Dr. Roosevelt Verde PLT 327 103/ul Normal 150-450 [facility] Comment on above: Performed By: #### C BC #### [facility] [address] [place] [address] Dr. Roosevelt Verde RBC 3.37 106/ul Critically low 4.70-6.10 [facility] Comment on above: Performed By: #### C BC #### [facility] [address] [place] [address] Dr. Roosevelt Verde WBC 6.5 103/ul Normal 4.0-11.0 [facility] Comment on above: Performed By: #### C BC #### [facility] [address] [place] [address] Dr. Roosevelt Verde CREATININEon 03-21-2022 Creatinine [Mass/Vol] 2.19 mg/dL Critically high 0.70-1.30 [facility] Comment on above: Performed By: #### C BC #### [facility] [address] [place] [address] Dr. Roosevelt Verde EGFR-AF TRISTANIAN 38 mL/min/1.73m2 Critically low >=60 [facility] Comment on above: Performed By: #### C BC #### [facility] [address] [place] [address] Dr. Roosevelt Verde EGFR-NON AF TRISTANIAN 31 mL/min/1.73m2 Critically low >=60 [facility] Comment on above: Performed By: #### C BC #### [facility] [address] [place] [address] Dr. Roosevelt Verde CRPon 03-21-2022 CRP 0.4 mg/dL Normal <=1.0 [facility] Comment on above: Performed By: #### C BC #### [facility] [address] [place] [address] Dr. Roosevelt Verde SED RATE WESTERGREN 2021 SED RATE 49 mm/hr Critically high <=20 [facility] Comment on above: Performed By: #### S EDR #### [facility] [address] [place] [address] Dr. Roosevelt Verde SGOTon 03-21-2022 AST [Catalytic activity/Vol] 12 U/L Critically low 15-37 [facility] Comment on above: Performed By: #### C BC #### [facility] [address] [place] [address] Dr. Roosevelt Verde [facility] 03-21-2022 ALT [Catalytic activity/Vol] 27 U/L Normal 16-63 [facility] Comment on above: Performed By: #### C BC #### [facility] [address] [place] [address] Dr. Roosevelt Verde Covid-19 PCR ([facility])on SARS-CoV-2 (COVID-19) RNA DAVON+probe Ql (Unsp spec) Not detected Normal NOT DETECTED [facility] Comment on above: Result Comment: This test is not yet approved or cleared by the [place] FDA. When there are no FDA-approved or cleared tests available, and other criteria are met, FDA can make tests available under an emergency access mechanism called an Emergency Use Authorization (EUA). The EUA for this test is supported by the Taffy Puller of Health and Human Service's (HHS's) declaration that circumstances exist to justify the emergency use of in vitro diagnostics for the detection and/or diagnosis of the virus that causes COVID-19. This EUA will remain in effect (meaning this test can be used) for the duration of the COVID-19 declaration justifying emergency of IVDs, unless it is terminated or revoked by FDA (after which the test may no longer be used). When diagnostic testing is negative, the possibility of a false negative should be considered in the context of a patient's recent exposures and the presence of clinical signs and symptoms consistent with SARS-CoV-2. Performed By: #### C QUE, CRP, ALT, AST #### [facility] [address] [place] [address] Dr. Roosevelt Verde INFLUENZA A AND B AGon INFLUBNEGH SEE BELOW Normal [facility] Comment on above: Result Comment: Nega tive for Flu B protein antigen. Infection due to Flu B cannot be ruled out. Flu B antigen in the sample may be below the detection limit of the test. Performed By: #### C BC #### [facility] [address] [place] [address] Dr. Roosevelt Verde INFLUENZA A AG Positive Abnormal NEGATIVE SEE COMMENT [facility] Comment on above: Performed By: #### C BC #### [facility] [address] [address] [address] Roosevelt Verde INFLUENZA B AG Negative Normal NEGATIVE SEE COMMENT [facility] Comment on above: Performed By: #### C BC #### [facility] [address] [address] [address] Roosevelt Verde INFLUPOSH SEE BELOW Normal [facility] Comment on above: Result Comment: NOTE : Live attenuated influenzae vaccine viruses can cause a positive result for a rapid influenza diagnostic test if administered up to 7 days prior to rapid testing. Performed By: #### C BC #### [facility] [address] [address] [address] Roosevelt Verde INTERNAL CONTROLS Within Normal Limits Normal Within Normal Limits [facility] Comment on above: Performed By: #### C BC #### [facility] [address] [address] [address] Roosevelt Verde BUNon 01-27-2022 Urea nitrogen [Mass/Vol] 30.0 mg/dL Critically high 7.0-18.0 [facility] Comment on above: Performed By: #### C QUE, BUN ####[facility] [address] [place], [place] [address]DrMichael Verde CREATININEon 01-27-2022 Creatinine [Mass/Vol] 2.55 mg/dL Critically high 0.70-1.30 [facility] Comment on above: Performed By: #### C QUE, BUN ####[facility] [address] [address]DrMichael Verde EGFR-AF TRISTANIAN 32 mL/min/1.73m2 Critically low >=60 [facility] Comment on above: Performed By: #### C QUE, BUN ####[facility] [address] [address]DrMichael Verde EGFR-NON AF TRISTANIAN 26 mL/min/1.73m2 Critically low >=60 [facility] Comment on above: Performed By: #### C QUE, BUN ####[facility] [address] [place], [place] [address]DrMichael Verde UA RANDOM W/MICROSCOPICon BACTERIA NONE SEEN Normal NONE SEEN [facility] Comment on above: Performed By: #### U AMIC #### [facility] [address] [place] [address] Dr. Roosevelt Verde Bilirubin Ql (U) Negative Normal NEGATIVE [facility] Comment on above: Performed By: #### U AMIC #### [facility] [address] [address] [address] Roosevelt Verde CAST SEEN Abnormal NONE SEEN [facility] Comment on above: Performed By: #### U AMIC #### [facility] [address] [address] [address] Roosevelt Verde Clarity (U) CLEAR Normal CLEAR [facility] Comment on above: Performed By: #### U AMIC #### [facility] [address] [place] [address] Dr. Roosevelt Verde Color (U) DK. YELLOW Normal YELLOW [facility] Comment on above: Performed By: #### U AMIC #### [facility] [address] [place] [address] Dr. Roosevelt Verde Crystals LM Nom (Urine sed) NONE SEEN Normal NONE SEEN [facility] Comment on above: Performed By: #### U AMIC #### [facility] [address] [place] [address] Dr. Roosevelt Verde Epithelial cells LM Ql (Urine sed) NONE SEEN Normal NONE SEEN /RARE [facility] Comment on above: Performed By: #### U AMIC #### [facility] [address] [address] [address] Roosevelt Verde Glucose Ql (U) Negative Normal NEGATIVE [facility] Comment on above: Performed By: #### U AMIC #### [facility] [address] [place] [address] Dr. Roosevelt Verde Hemoglobin Ql (U) Negative Normal NEGATIVE [facility] Comment on above: Performed By: #### U AMIC #### [facility] [address] [place] [address] Dr. Roosevelt Verde Ketones Ql (U) TRACE Abnormal NEGATIVE [facility] Comment on above: Performed By: #### U AMIC #### [facility] [address] [address] [address] Roosevelt Verde LEUKOCYTES Negative Normal NEGATIVE [facility] Comment on above: Performed By: #### U AMIC #### [facility] [address] [address] [address] Roosevelt Verde MUCOUS NONE SEEN Normal NONE SEEN [facility] Comment on above: Performed By: #### U AMIC #### [facility] [address] [address] [address] Roosevelt Verde Nitrite Ql (U) Negative Normal NEGATIVE [facility] Comment on above: Performed By: #### U AMIC #### [facility] [address] [place] [address] Dr. Roosevelt Verde pH (U) 6.0 [pH] Normal 5-9 [facility] Comment on above: Performed By: #### U AMIC #### [facility] [address] [address] [address] Roosevelt Verde RBC NONE SEEN Abnormal 0-2 [facility] Comment on above: Performed By: #### U AMIC #### [facility] [address] [address] [address] Roosevelt Verde SPEC GRAVITY 1.025 Normal 1.005-<=1.025 [facility] Comment on above: Performed By: #### U AMIC #### [facility] [address] [place] [address] Dr. Roosevelt Verde UA PROTEIN Negative Normal NEGATIVE/ TRACE [facility] Comment on above: Performed By: #### U AMIC #### [facility] [address] [place] [address] Dr. Roosevelt Verde Urobilinogen Qn (U) 0.2 {Gogo'U}/dL Normal 0.2 - 1.0 [facility] Comment on above: Performed By: #### U AMIC #### [facility] [address] [place] [address] Dr. Roosevelt Verde WBC 0-2 Abnormal NONE SEEN [facility] Comment on above: Performed By: #### U AMIC #### [facility] [address] [place], [place] [address] Dr. Roosevelt Verde CBC AUTO DIFFon 01-12-2022 BASO # 0.0 103/ul Normal 0.0-0.1 [facility] Comment on above: Performed By: #### C BC ####[facility] [address] [id number] Verde Basophils/100 WBC (Bld) 0.6 % Normal 0.2-2.0 [facility] Comment on above: Performed By: #### C BC ####[facility] [address] [phone] Verde EO # 0.1 103/ul Normal 0.0-0.7 [facility] Comment on above: Performed By: #### C BC ####[facility] [address] [address]DrMichael Verde Eosinophils/100 WBC (Bld) 1.5 % Normal 0.9-7.0 [facility] Comment on above: Performed By: #### C BC ####[facility] [address] [phone] Verde Erythrocyte distribution width (RBC) [Ratio] 13.5 % Normal 11.0-15.0 [facility] Comment on above: Performed By: #### C BC ####[facility] [address] [phone] Verde Hematocrit (Bld) [Volume fraction] 36.6 % Critically low 42.0-54.0 [facility] Comment on above: Performed By: #### C BC ####[facility] [address] [phone] Verde Hemoglobin (Bld) [Mass/Vol] 11.8 g/dL Critically low 14.0-18.0 [facility] Comment on above: Performed By: #### C BC ####[facility] [address] [id number] Verde IG # 0.03 10e3/ul Normal 0.00-0.03 [facility] Comment on above: Performed By: #### C BC ####[facility] [address] [address]DrMichael Betzaidasánchez Verde IG % 0.5 % Normal 0.0-0.5 [facility] Comment on above: Performed By: #### C BC ####[facility] [address] [phone] Verde LYMPH # 1.5 103/ul Normal 1.2-3.8 [facility] Comment on above: Performed By: #### C BC ####[facility] [address] [place] [phone] Verde Lymphocytes/100 WBC (Bld) 22.3 % Normal 20.5-60.0 [facility] Comment on above: Performed By: #### C BC ####[facility] [address] [address]DrMichael Verde MANUAL DIFF REQ NO Normal [facility] Comment on above: Performed By: #### C BC ####[facility] [address] [phone]. Roosevelt Ammon MCH (RBC) [Entitic mass] 34.2 pg Critically high 25.9-34.0 [facility] Comment on above: Performed By: #### C BC ####[facility] [address] [phone] Roosevelt Ammon MCHC (RBC) [Mass/Vol] 32.2 g/dL Normal 29.9-35.2 [facility] Comment on above: Performed By: #### C BC ####[facility] [address] [phone] Betzaidasánchez Verde MCV (RBC) [Entitic vol] 106.1 fL Critically high 80.0-94.0 [facility] Comment on above: Result Comment: 2+ m acrocytosis Performed By: #### C BC ####[facility] [address] [address]DrMichael Verde MONO # 0.6 103/ul Normal 0.3-0.8 [facility] Comment on above: Performed By: #### C BC ####[facility] [address] [phone]. Roosevelt Verde Monocytes/100 WBC (Bld) 8.7 % Normal 1.7-12.0 [facility] Comment on above: Performed By: #### C BC ####[facility] [address] [phone]. Roosevelt Verde NEUT # 4.4 103/ul Normal 1.4-6.5 [facility] Comment on above: Performed By: #### C BC ####[facility] [address] [address]Dr. Roosevelt Verde Neutrophils/100 WBC (Bld) 66.4 % Normal 43.0-75.0 [facility] Comment on above: Performed By: #### C BC ####[facility] [address] [address]Dr. Roosevelt Verde Platelet mean volume (Bld) [Entitic vol] 9.3 fL Critically low 9.5-13.5 [facility] Comment on above: Performed By: #### C BC ####[facility] [address] [place], [place] [id number]. Roosevelt Verde PLT 325 103/ul Normal 150-450 [facility] Comment on above: Performed By: #### C BC ####[facility] [address] [phone]. Roosevelt Verde RBC 3.45 106/ul Critically low 4.70-6.10 [facility] Comment on above: Performed By: #### C BC ####[facility] [address] [phone]. Roosevelt Verde WBC 6.6 103/ul Normal 4.0-11.0 [facility] Comment on above: Performed By: #### C BC ####[facility] [address] [phone]. Roosevelt Verde CREATININEon 01-12-2022 Creatinine [Mass/Vol] 1.89 mg/dL Critically high 0.70-1.30 [facility] Comment on above: Performed By: #### C QUE, CRP, ALT, AST #### [facility] [address] [address] [address] Roosevelt Verde EGFR-AF TRISTANIAN 45 mL/min/1.73m2 Critically low >=60 [facility] Comment on above: Performed By: #### C QUE, CRP, ALT, AST #### [facility] [address] [address] [address] Roosevelt Verde EGFR-NON AF TRISTANIAN 37 mL/min/1.73m2 Critically low >=60 [facility] Comment on above: Performed By: #### C QUE, CRP, ALT, AST #### [facility] [address] [place] [address] Dr. Roosevelt Verde CRPon 01-12-2022 CRP 0.2 mg/dL Normal <=1.0 [facility] Comment on above: Performed By: #### C QUE, CRP, ALT, AST #### [facility] [address] [address] [address] Roosevelt Verde SED RATE WESTERGRENon 2021 SED RATE 24 mm/hr Critically high <=20 [facility] Comment on above: Performed By: #### S EDR ####[facility] [address] [address]Dr. Roosevelt Verde SGOTon 01-12-2022 AST [Catalytic activity/Vol] 12 U/L Critically low 15-37 [facility] Comment on above: Performed By: #### C QUE, CRP, ALT, AST #### [facility] [address] [address] [address] Roosevelt Verde SGPTon 01-12-2022 ALT [Catalytic activity/Vol] 26 U/L Normal 16-63 [facility] Comment on above: Performed By: #### C QUE, CRP, ALT, AST #### [facility] [address] [address] [address] Roosevelt Verde VIT D, 1,25 DIHYDROXon 01-11 VIT. D 1,[address] [facility] Comment on above: Result Comment: Pl ease note reference interval change Reference range: 24.8 to 81.5 Unit: pg/mL PERFORMED AT [facility] Performed By: #### L VD125 #### Testing performed at [facility] 25 0H VITAMIN D LEVELon 12-31 25 0H VITAMIN D LEVEL 40.4 NG/ML [facility] Comment on above: Result Comment: DEFICIENT <20 NG/ML INSUFFICIENT 20-<30 NG/ML SUFFICIENT 30-100 NG/ML POTENTIAL TOXICITY >100 NG/ML [place] 01-10-2022 AST [Catalytic activity/Vol] 22 U/L Normal 17-59 [facility] Comment on above: Performed By: #### L VD125 #### Testing performed at [facility] CREATININE,SERUMon Creatinine [Mass/Vol] 1.78 mg/dL High 0.7-1.2 [facility] Comment on above: Performed By: #### L VD125 #### Testing performed at [facility] EST. GFR, 51 ml/min/1.73sq.m [facility] Comment on above: Performed By: #### L VD125 #### Testing performed at [facility] EST. GFR,Non 42 ml/min/1.73sq.m [facility] Comment on above: Performed By: #### L VD125 #### Testing performed at [facility] GFR Information Average GFR for 50-59 years old = 93. [facility] Comment on above: Result Comment: [facility] Transporter alvin Kidney disease, GFR = <60. Kidney failure, GFR = <15. The GFR estimate is not adjusted for extreme body surface area or acute process, nor has it been validated for women or ethnic groups other than and . Performed By: #### L VD125 #### Testing performed at [facility] VITAMIN D (25-HYDROXY,TOTAL) on 01-10-2022 25-hydroxyvitamin D [Mass/Vol] 40.4 NG/ML [facility] Comment on above: DEFICIENT <20 NG/ML INSUFFICIENT 20-<30 NG/ML SUFFICIENT 30-100 NG/ML POTENTIAL TOXICITY >100 NG/ML [facility] CBC AUTO DIFFon 11-17-2021 BASO # 0.0 103/ul Normal 0.0-0.1 [facility] Comment on above: Performed By: #### C BC #### [facility] [address] [place] [address] Dr. Roosevelt Verde Basophils/100 WBC (Bld) 0.6 % Normal 0.2-2.0 [facility] Comment on above: Performed By: #### C BC #### [facility] [address] [place] [address] Dr. Roosevelt Verde EO # 0.1 103/ul Normal 0.0-0.7 [facility] Comment on above: Performed By: #### C BC #### [facility] [address] [place] [address] Dr. Roosevelt Verde Eosinophils/100 WBC (Bld) 1.4 % Normal 0.9-7.0 [facility] Comment on above: Performed By: #### C BC #### [facility] [address] [place] [address] Dr. Roosevelt Verde Erythrocyte distribution width (RBC) [Ratio] 15.4 % Critically high 11.0-15.0 [facility] Comment on above: Performed By: #### C BC #### [facility] [address] [place] [address] Dr. Roosevelt Verde Hematocrit (Bld) [Volume fraction] 31.7 % Critically low 42.0-54.0 [facility] Comment on above: Performed By: #### C BC #### [facility] [address] [place] [address] Dr. Roosevelt Verde Hemoglobin (Bld) [Mass/Vol] 10.3 g/dL Critically low 14.0-18.0 [facility] Comment on above: Performed By: #### C BC #### [facility] [address] [place] [address] Dr. Roosevelt Verde IG # 0.01 10e3/ul Normal 0.00-0.03 [facility] Comment on above: Performed By: #### C BC #### [facility] [address] [place] [address] Dr. Roosevelt Verde IG % 0.2 % Normal 0.0-0.5 [facility] Comment on above: Performed By: #### C BC #### [facility] [address] [place] [address] Dr. Roosevelt Verde LYMPH # 1.2 103/ul Normal 1.2-3.8 [facility] Comment on above: Performed By: #### C BC #### [facility] [address] [place] [address] Dr. Roosevelt Verde Lymphocytes/100 WBC (Bld) 25.2 % Normal 20.5-60.0 [facility] Comment on above: Performed By: #### C BC #### [facility] [address] [place] [address] Dr. Roosevelt Verde MANUAL DIFF REQ NO Normal [facility] Comment on above: Performed By: #### C BC #### [facility] [address] [place] [address] Dr. Roosevelt Verde MCH (RBC) [Entitic mass] 35.0 pg Critically high 25.9-34.0 [facility] Comment on above: Performed By: #### C BC #### [facility] [address] [place] [address] Dr. Roosevelt Verde MCHC (RBC) [Mass/Vol] 32.5 g/dL Normal 29.9-35.2 [facility] Comment on above: Performed By: #### C BC #### [facility] [address] [place] [address] Dr. Roosevelt Verde MCV (RBC) [Entitic vol] 107.8 fL Critically high 80.0-94.0 [facility] Comment on above: Performed By: #### C BC #### [facility] [address] [place] [address] Dr. Roosevelt Verde MONO # 0.5 103/ul Normal 0.3-0.8 [facility] Comment on above: Performed By: #### C BC #### [facility] [address] [address] [address] Roosevelt Verde Monocytes/100 WBC (Bld) 11.0 % Normal 1.7-12.0 [facility] Comment on above: Performed By: #### C BC #### [facility] [address] [address] [address] Roosevelt Verde NEUT # 3.0 103/ul Normal 1.4-6.5 [facility] Comment on above: Performed By: #### C BC #### [facility] [address] [address] [address] Roosevelt Verde Neutrophils/100 WBC (Bld) 61.6 % Normal 43.0-75.0 [facility] Comment on above: Performed By: #### C BC #### [facility] [address] [place] [address] Dr. Roosevelt Verde Platelet mean volume (Bld) [Entitic vol] 8.6 fL Critically low 9.5-13.5 [facility] Comment on above: Performed By: #### C BC #### [facility] [address] [place] [address] Dr. Roosevelt Verde PLT 326 103/ul Normal 150-450 [facility] Comment on above: Performed By: #### C BC #### [facility] [address] [place] [address] Dr. Roosevelt Verde RBC 2.94 106/ul Critically low 4.70-6.10 [facility] Comment on above: Performed By: #### C BC #### [facility] [address] [place] [address] Dr. Roosevelt Verde WBC 4.9 103/ul Normal 4.0-11.0 [facility] Comment on above: Performed By: #### C BC #### [facility] [address] [place] [address] Dr. Roosevelt Verde CREATININEon 11-17-2021 Creatinine [Mass/Vol] 1.02 mg/dL Normal 0.70-1.30 [facility] Comment on above: Performed By: #### C QUE, ALT, AST, CRP ####[facility] [address] [place] [address]Dr. Roosevelt Verde EGFR-AF TRISTANIAN >60 Normal >=60 [facility] Comment on above: Performed By: #### C QUE, ALT, AST, CRP ####[facility] [address] [place] [address]Dr. Roosevelt Verde EGFR-NON AF TRISTANIAN >60 Normal >=60 [facility] Comment on above: Performed By: #### C QUE, ALT, AST, CRP ####[facility] [address] [place] [address]Dr. Roosevelt Verde CRPon 11-17-2021 CRP [Mass/Vol] mg/L Normal <=1.0 [facility] Comment on above: Performed By: #### C QUE, ALT, AST, CRP ####[facility] [address] [place] [address]Dr. Roosevelt Verde SED RATE WESTERGRENon 2021 SED RATE 3 mm/hr Normal <=20 [facility] Comment on above: Performed By: #### S EDR ####[facility] [address] [place], [place] [address]Dr. Roosevelt Verde SGOTon 11-17-2021 AST [Catalytic activity/Vol] 13 U/L Critically low 15-37 [facility] Comment on above: Performed By: #### C QUE, ALT, AST, CRP ####[facility] [address] [place] [address]Dr. Roosevelt Verde SGPTon 11-17-2021 ALT [Catalytic activity/Vol] 22 U/L Normal 16-63 [facility] Comment on above: Performed By: #### C QUE, ALT, AST, CRP ####[facility] [address] [place] [place] [address]Dr. Roosevelt Verde VIT D 25-OH LABCORPon 2021 Vitamin D, 25-Hydroxy 40.1 ng/mL Normal 30.0-100.0 [facility] Comment on above: Result Comment: Dunia min D deficiency has been defined by the [place] of [employer] and an Endocrine Society practice guideline as a level of serum 25-OH vitamin D less than 20 ng/mL (1,2). The Endocrine Society went on to further define vitamin D insufficiency as a level between 21 and 29 ng/mL (2). 1. IOM ([place] of [employer]). 2010. Dietary reference intakes for calcium and D. Elena [place]: The National Academies Press. 2. Roberta MF, Ofelia HOWARD, Alden BEARD, et al. Evaluation, treatment, and prevention of vitamin D deficiency: an Endocrine Society clinical practice guideline. JCEM. 2010; 96(7):1911-30. Performed By: #### C BC #### [facility] [address] [address] [address] Roosevelt Verde CBC AUTO DIFFon 10-23-2021 BASO # 0.1 103/ul Normal 0.0-0.1 [facility] Comment on above: Performed By: #### C QUE, CRP, ALT, AST #### [facility] [address] [address] [address] Roosevelt Verde Basophils/100 WBC (Bld) 0.5 % Normal 0.2-2.0 [facility] Comment on above: Performed By: #### C QUE, CRP, ALT, AST #### [facility] [address] [address] [address] Roosevelt Verde EO # 0.1 103/ul Normal 0.0-0.7 [facility] Comment on above: Performed By: #### C QUE, CRP, ALT, AST #### [facility] [address] [address] [address] Roosevelt Verde Eosinophils/100 WBC (Bld) 1.0 % Normal 0.9-7.0 [facility] Comment on above: Performed By: #### C QUE, CRP, ALT, AST #### [facility] [address] [address] [address] Roosevelt Verde Erythrocyte distribution width (RBC) [Ratio] 13.4 % Normal 11.0-15.0 [facility] Comment on above: Performed By: #### C QUE, CRP, ALT, AST #### [facility] [address] [place] [address] Dr. Roosevelt Verde Hematocrit (Bld) [Volume fraction] 43.1 % Normal 42.0-54.0 [facility] Comment on above: Performed By: #### C QUE, CRP, ALT, AST #### [facility] [address] [place] [address] Dr. Roosevelt Verde Hemoglobin (Bld) [Mass/Vol] 14.4 g/dL Normal 14.0-18.0 [facility] Comment on above: Performed By: #### C QUE, CRP, ALT, AST #### [facility] [address] [place] [address] Dr. Roosevelt Verde IG # 0.05 10e3/ul Critically high 0.00-0.03 [facility] Comment on above: Performed By: #### C QUE, CRP, ALT, AST #### [facility] [address] [place] [address] Dr. Roosevelt Verde IG % 0.5 % Normal 0.0-0.5 [facility] Comment on above: Performed By: #### C QUE, CRP, ALT, AST #### [facility] [address] [place] [address] Dr. Roosevelt Verde LYMPH # 1.9 103/ul Normal 1.2-3.8 [facility] Comment on above: Performed By: #### C QUE, CRP, ALT, AST #### [facility] [address] [place] [address] Dr. Roosevelt Verde Lymphocytes/100 WBC (Bld) 19.3 % Critically low 20.5-60.0 [facility] Comment on above: Performed By: #### C QUE, CRP, ALT, AST #### [facility] [address] [place] [address] Dr. Roosevelt Verde MANUAL DIFF REQ NO Normal [facility] Comment on above: Performed By: #### C QUE, CRP, ALT, AST #### [facility] [address] [place] [address] Dr. Roosevelt Verde MCH (RBC) [Entitic mass] 34.4 pg Critically high 25.9-34.0 [facility] Comment on above: Performed By: #### C QUE, CRP, ALT, AST #### [facility] [address] [place] [address] Dr. Roosevelt Verde MCHC (RBC) [Mass/Vol] 33.4 g/dL Normal 29.9-35.2 [facility] Comment on above: Performed By: #### C QUE, CRP, ALT, AST #### [facility] [address] [place] [address] Dr. Roosevelt Verde MCV (RBC) [Entitic vol] 102.9 fL Critically high 80.0-94.0 [facility] Comment on above: Performed By: #### C QUE, CRP, ALT, AST #### [facility] [address] [place] [address] Dr. Roosevelt Verde MONO # 0.8 103/ul Normal 0.3-0.8 [facility] Comment on above: Performed By: #### C QUE, CRP, ALT, AST #### [facility] [address] [place] [address] Dr. Roosevelt Verde Monocytes/100 WBC (Bld) 8.7 % Normal 1.7-12.0 [facility] Comment on above: Performed By: #### C QUE, CRP, ALT, AST #### [facility] [address] [place] [address] Dr. Roosevelt Verde NEUT # 6.8 103/ul Critically high 1.4-6.5 [facility] Comment on above: Performed By: #### C QUE, CRP, ALT, AST #### [facility] [address] [place] [address] Dr. Roosevelt Verde Neutrophils/100 WBC (Bld) 70.0 % Normal 43.0-75.0 [facility] Comment on above: Performed By: #### C QUE, CRP, ALT, AST #### [facility] [address] [place] [address] Dr. Roosevelt Verde Platelet mean volume (Bld) [Entitic vol] 9.2 fL Critically low 9.5-13.5 [facility] Comment on above: Performed By: #### C QUE, CRP, ALT, AST #### [facility] [address] [place] [address] Dr. Roosevelt Verde PLT 328 103/ul Normal 150-450 [facility] Comment on above: Performed By: #### C QUE, CRP, ALT, AST #### [facility] [address] [place] [address] Dr. Roosevelt Verde RBC 4.19 106/ul Critically low 4.70-6.10 [facility] Comment on above: Performed By: #### C QUE, CRP, ALT, AST #### [facility] [address] [place] [address] Dr. Roosevelt Verde WBC 9.7 103/ul Normal 4.0-11.0 [facility] Comment on above: Performed By: #### C QUE, CRP, ALT, AST #### [facility] [address] [place] [address] Dr. Roosevelt Verde ER URINE PROFILEon 2 Bilirubin Ql (U) Negative Normal NEGATIVE [facility] Comment on above: Performed By: #### C BC #### [facility] [address] [place] [address] Dr. Roosevelt Verde Clarity (U) CLEAR Normal CLEAR [facility] Comment on above: Performed By: #### C BC #### [facility] [address] [place] [address] Dr. Roosevelt Verde Color (U) YELLOW Normal YELLOW [facility] Comment on above: Performed By: #### C BC #### [facility] [address] [place] [address] Dr. Roosevelt Verde ERUAHD A micrscopic examination will be performed if indicated. Normal [facility] Comment on above: Performed By: #### C BC #### [facility] [address] [place] [address] Dr. Roosevelt Verde Glucose Ql (U) Negative Normal NEGATIVE [facility] Comment on above: Performed By: #### C BC #### [facility] [address] [place] [address] Dr. Roosevelt Verde Hemoglobin Ql (U) Negative Normal NEGATIVE [facility] Comment on above: Performed By: #### C BC #### [facility] [address] [place] [address] Dr. Roosevelt Verde Ketones Ql (U) Negative Normal NEGATIVE [facility] Comment on above: Performed By: #### C BC #### [facility] [address] [place] [address] Dr. Roosevelt Verde LEUKOCYTES Negative Normal NEGATIVE [facility] Comment on above: Performed By: #### C BC #### [facility] [address] [place] [address] Dr. Roosevelt Verde Nitrite Ql (U) Negative Normal NEGATIVE [facility] Comment on above: Performed By: #### C BC #### [facility] [address] [place] [address] Dr. Roosevelt Verde pH (U) 5.5 [pH] Normal 5-9 [facility] Comment on above: Performed By: #### C BC #### [facility] [address] [place] [address] Dr. Roosevelt Verde SPEC GRAVITY 1.025 Normal 1.005-<=1.025 [facility] Comment on above: Performed By: #### C BC #### [facility] [address] [place] [address] Dr. Roosevelt Verde UA PROTEIN Negative Normal NEGATIVE/ TRACE [facility] Comment on above: Performed By: #### C BC #### [facility] [address] [place] [address] Dr. Roosevelt Verde UR MICRO IND NOT INDICATED Normal [facility] Comment on above: Result Comment: Prev iously reported as: INDICATED On 10/23/2021 16:15 By CV2 Performed By: #### C BC #### [facility] [address] [place] [address] Dr. Roosevelt Verde Urobilinogen Qn (U) 0.2 {Gogo'U}/dL Normal 0.2 - 1.0 [facility] Comment on above: Performed By: #### C BC #### [facility] [address] [place] [address] Dr. Roosevelt Verde LIPASEon 10-23-2021 Lipase [Catalytic activity/Vol] 137.0 U/L Normal 73.0-393.0 [facility] Comment on above: Performed By: #### C BC #### [facility] [address] [place] [address] Dr. Roosevelt Verde PROF 14(COMP METB)on 022 Albumin [Mass/Vol] 4.0 g/dL Normal 3.4-5.0 [facility] Comment on above: Performed By: #### C BC #### [facility] [address] [place] [address] Dr. Roosevelt Verde Albumin/Globulin [Mass ratio] 1.3 {ratio} Normal [facility] Comment on above: Performed By: #### C BC #### [facility] [address] [place] [address] Dr. Roosevelt Verde ALP [Catalytic activity/Vol] 73 U/L Normal 46-116 [facility] Comment on above: Performed By: #### C BC #### [facility] [address] [place] [address] Dr. Roosevelt Verde ALT [Catalytic activity/Vol] 35 U/L Normal 16-63 [facility] Comment on above: Performed By: #### C BC #### [facility] [address] [place] [address] Dr. Roosevelt Verde Anion gap [Moles/Vol] 9.9 mmol/L Normal [facility] Comment on above: Performed By: #### C BC #### [facility] [address] [place] [address] Dr. Roosevelt Verde AST [Catalytic activity/Vol] 16 U/L Normal 15-37 [facility] Comment on above: Performed By: #### C BC #### [facility] [address] [place] [address] Dr. Roosevelt Verde Bilirubin [Mass/Vol] 0.7 mg/dL Normal 0.2-1.0 [facility] Comment on above: Performed By: #### C BC #### [facility] [address] [place] [address] Dr. Roosevelt Verde Calcium [Mass/Vol] 8.8 mg/dL Normal 8.5-10.1 [facility] Comment on above: Performed By: #### C BC #### [facility] [address] [address] [address] Roosevelt Verde Chloride [Moles/Vol] 107 mmol/L Normal 98-107 [facility] Comment on above: Performed By: #### C BC #### [facility] [address] [place] [address] Dr. Roosevelt Verde CO2 [Moles/Vol] 27.6 mmol/L Normal 21.0-32.0 [facility] Comment on above: Performed By: #### C BC #### [facility] [address] [place] [address] Dr. Roosevelt Verde Creatinine [Mass/Vol] 1.10 mg/dL Normal 0.70-1.30 [facility] Comment on above: Performed By: #### C BC #### [facility] [address] [place] [address] Dr. Roosevelt Verde EGFR-AF TRISTANIAN >60 Normal >=60 [facility] Comment on above: Performed By: #### C BC #### [facility] [address] [place] [address] Dr. Roosevelt Verde EGFR-NON AF TRISTANIAN >60 Normal >=60 [facility] Comment on above: Performed By: #### C BC #### [facility] [address] [place] [address] Dr. Roosevelt Verde Globulin (S) [Mass/Vol] 3.0 g/dL Normal [facility] Comment on above: Performed By: #### C BC #### [facility] [address] [place] [address] Dr. Roosevelt Verde Glucose [Mass/Vol] 83 mg/dL Normal 74-106 [facility] Comment on above: Performed By: #### C BC #### [facility] [address] [place], [place] [address] Dr. Roosevelt Verde Potassium [Moles/Vol] 4.5 mmol/L Normal 3.5-5.1 [facility] Comment on above: Performed By: #### C BC #### [facility] [address] [place], [place] [address] Dr. Roosevelt Verde Protein [Mass/Vol] 7.0 g/dL Normal 6.4-8.2 [facility] Comment on above: Performed By: #### C BC #### [facility] [address] [place], [place] [address] Dr. Roosevelt Verde Sodium [Moles/Vol] 140 mmol/L Normal 136-145 [facility] Comment on above: Performed By: #### C BC #### [facility] [address] [address] [address] Roosevelt Verde Urea nitrogen [Mass/Vol] 23.0 mg/dL Critically high 7.0-18.0 [facility] Comment on above: Performed By: #### C BC #### [facility] [address] [place], [place] [address] Dr. Roosevelt Verde Urea nitrogen/Creatinine [Mass ratio] 20.9 mg/mg Normal [facility] Comment on above: Performed By: #### C BC #### [facility] [address] [place], [place] [address] Dr. Roosevelt Verde XR KUB 1 VIEWon 10-23-2021 XR KUB 1 VIEW EXAM: XR KUB 1 VIEW HISTORY: . Right flank pain . COMPARISON: None. TECHNIQUE: KUB. FINDINGS: Bowel gas pattern is nonspecific with air noted in colon as well as small bowel. There is gas noted down to the rectum. No calcifications are noted in the right lower quadrant. Surgical clips are noted in the upper abdomen and right mid to lower abdomen. There are couple faint radiodensities overlying both renal outlines. Findings could represent material in the bowel or renal calculi. IMPRESSION: 1. Nonspecific bowel gas pattern. No evidence of obstruction. 2. Faint radiodensities overlying both renal outlines most likely representing nonobstructing calculi. 3. No calcifications in the right lower quadrant. Electronically authenticated by: TRA ALDRIDGE Date: 2021-10-23 16:26 Normal [facility] CBC AUTO DIFFon 09-16-2021 BASO # 0.0 103/ul Normal 0.0-0.1 [facility] Comment on above: Performed By: #### C BC #### [facility] [address] [address] [address] Roosevelt Verde Basophils/100 WBC (Bld) 0.5 % Normal 0.2-2.0 [facility] Comment on above: Performed By: #### C BC #### [facility] [address] [address] [address] Roosevelt Verde EO # 0.1 103/ul Normal 0.0-0.7 [facility] Comment on above: Performed By: #### C BC #### [facility] [address] [address] [address] Roosevelt Verde Eosinophils/100 WBC (Bld) 0.6 % Critically low 0.9-7.0 [facility] Comment on above: Performed By: #### C BC #### [facility] [address] [address] [address] Roosevelt Verde Erythrocyte distribution width (RBC) [Ratio] 13.2 % Normal 11.0-15.0 [facility] Comment on above: Performed By: #### C BC #### [facility] [address] [address] [address] Roosevelt Verde Hematocrit (Bld) [Volume fraction] 42.9 % Normal 42.0-54.0 [facility] Comment on above: Performed By: #### C BC #### [facility] [address] [address] [address] Roosevelt Verde Hemoglobin (Bld) [Mass/Vol] 14.2 g/dL Normal 14.0-18.0 [facility] Comment on above: Performed By: #### C BC #### [facility] [address] [address] [address] Roosevelt Verde IG # 0.03 10e3/ul Normal 0.00-0.03 [facility] Comment on above: Performed By: #### C BC #### [facility] [address] [place] [address] Dr. Roosevelt Verde IG % 0.4 % Normal 0.0-0.5 [facility] Comment on above: Performed By: #### C BC #### [facility] [address] [place] [address] Dr. Roosevelt Verde LYMPH # 1.7 103/ul Normal 1.2-3.8 [facility] Comment on above: Performed By: #### C BC #### [facility] [address] [place] [address] Dr. Roosevelt Verde Lymphocytes/100 WBC (Bld) 21.0 % Normal 20.5-60.0 [facility] Comment on above: Performed By: #### C BC #### [facility] [address] [place] [address] Dr. Roosevelt Verde MANUAL DIFF REQ NO Normal [facility] Comment on above: Performed By: #### C BC #### [facility] [address] [place] [address] Dr. Roosevelt Verde MCH (RBC) [Entitic mass] 34.5 pg Critically high 25.9-34.0 [facility] Comment on above: Performed By: #### C BC #### [facility] [address] [place] [address] Dr. Roosevelt Verde MCHC (RBC) [Mass/Vol] 33.1 g/dL Normal 29.9-35.2 [facility] Comment on above: Performed By: #### C BC #### [facility] [address] [place] [address] Dr. Roosevelt Verde MCV (RBC) [Entitic vol] 104.4 fL Critically high 80.0-94.0 [facility] Comment on above: Performed By: #### C BC #### [facility] [address] [place] [address] Dr. Roosevelt Verde MONO # 0.8 103/ul Normal 0.3-0.8 [facility] Comment on above: Performed By: #### C BC #### [facility] [address] [place] [address] Dr. Roosevelt Verde Monocytes/100 WBC (Bld) 9.6 % Normal 1.7-12.0 [facility] Comment on above: Performed By: #### C BC #### [facility] [address] [place] [address] Dr. Roosevelt Verde NEUT # 5.5 103/ul Normal 1.4-6.5 [facility] Comment on above: Performed By: #### C BC #### [facility] [address] [place] [address] Dr. Roosevelt Verde Neutrophils/100 WBC (Bld) 67.9 % Normal 43.0-75.0 [facility] Comment on above: Performed By: #### C BC #### [facility] [address] [place] [address] Dr. Roosevelt Verde Platelet mean volume (Bld) [Entitic vol] 9.4 fL Critically low 9.5-13.5 [facility] Comment on above: Performed By: #### C BC #### [facility] [address] [place] [address] Dr. Roosevelt Verde PLT 290 103/ul Normal 150-450 [facility] Comment on above: Performed By: #### C BC #### [facility] [address] [place] [address] Dr. Roosevelt Verde RBC 4.11 106/ul Critically low 4.70-6.10 [facility] Comment on above: Performed By: #### C BC #### [facility] [address] [place] [address] Dr. Roosevelt Verde WBC 8.1 103/ul Normal 4.0-11.0 [facility] Comment on above: Performed By: #### C BC #### [facility] [address] [place] [address] Dr. Roosevelt Verde CREATININEon 09-16-2021 Creatinine [Mass/Vol] 1.20 mg/dL Normal 0.70-1.30 [facility] Comment on above: Performed By: #### C QUE, CRP, ALT, AST #### [facility] [address] [address] [address] Roosevelt Verde EGFR-AF TRISTANIAN >=60 Normal >=60 [facility] Comment on above: Performed By: #### C QUE, CRP, ALT, AST #### [facility] [address] [address] [address] Roosevelt Verde EGFR-NON AF TRISTANIAN >=60 Normal >=60 [facility] Comment on above: Performed By: #### C QUE, CRP, ALT, AST #### [facility] [address] [address] [address] Roosevelt Verde CRPon 09-16-2021 CRP [Mass/Vol] mg/L Normal <=1.0 [facility] Comment on above: Performed By: #### C QUE, CRP, ALT, AST #### [facility] [address] [address] [address] Roosevelt Verde [facility] RATE 4 mm/hr Normal <=20 [facility] Comment on above: Performed By: #### S EDR ####[facility] [address] [address]Dr. Roosevelt Verde SGOTon 09-16-2021 AST [Catalytic activity/Vol] 17 U/L Normal 15-37 [facility] Comment on above: Performed By: #### C QUE, CRP, ALT, AST #### [facility] [address] [address] [address] Roosevelt Verde SGPTon 09-16-2021 ALT [Catalytic activity/Vol] 36 U/L Normal 16-63 [facility] Comment on above: Performed By: #### C QUE, CRP, ALT, AST #### [facility] [address] [address] [address] Roosevelt Verde VIT D, 1,25 DIHYDROXon 07-13 VIT. D 1,25 41.4 Normal [facility] Comment on above: Result Comment: Refe rence range: 19.9 to 79.3 Unit: pg/mL PERFORMED AT [facility] Performed By: #### L [id number] #### Testing performed at [facility] 25 0H VITAMIN D LEVELon 07-01 25 0H VITAMIN D LEVEL 47.4 NG/ML Normal [facility] Comment on above: Result Comment: DEFICIENT <20 NG/ML INSUFFICIENT 20-<30 NG/ML SUFFICIENT 30-100 NG/ML POTENTIAL TOXICITY >100 NG/ML Demetrius 07-12-2021 ALT [Catalytic activity/Vol] 25 U/L Normal <50 [facility] Comment on above: Performed By: #### L [id number] #### Testing performed at [facility] ALT [Catalytic activity/Vol] 25 U/L <50 IU/L [facility] Levar 07-12-2021 AST [Catalytic activity/Vol] 22 U/L Normal 17-59 [facility] Comment on above: Performed By: #### L [id number] #### Testing performed at [facility] AST [Catalytic activity/Vol] 22 U/L [facility] C REACTIVE PROTEINon 022 CRP [Mass/Vol] mg/L Normal 0-10 [facility] Comment on above: Performed By: #### L [id number] #### Testing performed at [facility] CRP [Mass/Vol] mg/L 0 - 10 MG/L [facility] CBCon 07-12-2021 ABSOLUTE BAS 0.0 10*3/uL Normal 0.0-0.2 [facility] Comment on above: Performed By: #### L [id number] #### Testing performed at [facility] ABSOLUTE EOS 0.10 10*3/uL Normal 0.0-0.7 [facility] Comment on above: Performed By: #### L VD125 #### Testing performed at [facility] ABSOLUTE NEUTROPHIL COUNT 4.2 10*3/uL Normal 1.4-6.5 [facility] Comment on above: Performed By: #### L VD125 #### Testing performed at [facility] Basophils/100 WBC (Bld) 0.5 % Normal 0.0-2.0 [facility] Comment on above: Performed By: #### L [id number] #### Testing performed at [facility] DTYPE AUTO DIFF Normal [facility] Comment on above: Performed By: #### L VD125 #### Testing performed at [facility] Eosinophils/100 WBC (Bld) 0.9 % Normal 0.0-11.0 [facility] Comment on above: Performed By: #### L VD125 #### Testing performed at [facility] Lymphocytes (Bld) [#/Vol] 1.20 10*3/uL Normal 1.2-3.4 [facility] Comment on above: Performed By: #### L [id number] #### Testing performed at [facility] Lymphocytes/100 WBC (Bld) 20.2 % Normal 20.0-55.0 [facility] Comment on above: Performed By: #### L VD125 #### Testing performed at [facility] Monocytes (Bld) [#/Vol] 0.6 10*3/uL Normal 0.0-0.7 [facility] Comment on above: Performed By: #### L VD125 #### Testing performed at [facility] Monocytes/100 WBC (Bld) 10.2 % High 0.0-10.0 [facility] Comment on above: Performed By: #### L VD125 #### Testing performed at [facility] Neutrophils/100 WBC (Bld) 68.2 % Normal 37.0-75.0 [facility] Comment on above: Performed By: #### L [id number] #### Testing performed at [facility] Erythrocyte distribution width (RBC) [Ratio] 14.5 % Normal 11.5-14.5 [facility] Comment on above: Performed By: #### L VD125 #### Testing performed at [facility] Hematocrit (Bld) [Volume fraction] 43.9 % Normal 42.0-52.0 [facility] Comment on above: Performed By: #### L [id number] #### Testing performed at [facility] Hemoglobin (Bld) [Mass/Vol] 14.6 g/dL Normal 14.0-18.0 [facility] Comment on above: Performed By: #### L VD125 #### Testing performed at [facility] MCH (RBC) [Entitic mass] 34.7 pg Normal 26.0-35.0 [facility] Comment on above: Performed By: #### L [id number] #### Testing performed at [facility] MCHC (RBC) [Mass/Vol] 33.2 g/dL Normal 27.0-37.0 [facility] Comment on above: Performed By: #### L VD125 #### Testing performed at [facility] MCV (RBC) [Entitic vol] 104.6 fL High 80.0-100.0 [facility] Comment on above: Performed By: #### L VD125 #### Testing performed at [facility] Platelet mean volume (Bld) [Entitic vol] 7.4 fL Normal 7.4-11.0 [facility] Comment on above: Performed By: #### L VD125 #### Testing performed at [facility] Platelets (Bld) [#/Vol] 304 10*3/uL Normal 130.0-400.0 [facility] Comment on above: Performed By: #### L VD125 #### Testing performed at [facility] RBC (Bld) [#/Vol] 4.20 10*6/uL Normal 4.0-6.1 [facility] Comment on above: Performed By: #### L VD125 #### Testing performed at [facility] WBC (Bld) [#/Vol] 6.2 10*3/uL Normal 3.6-11.0 [facility] Comment on above: Performed By: #### L VD125 #### Testing performed at [facility] CBC, EDIF, PLATELETon 2021 ABSOLUTE BASOPHIL COUNT 0.0 10*3/uL 0.0 - 0.2 10*3/uL [facility] Basophils/100 WBC (Bld) 0.5 % 0.0 - 2.0 % [facility] Differential cell count method Nom (Bld) AUTO DIFF % [facility] Eosinophils (Bld) [#/Vol] 0.10 10*3/uL 0.0 - 0.7 10*3/uL [facility] Eosinophils/100 WBC (Bld) 0.9 % 0.0 - 11.0 % [facility] Erythrocyte distribution width (RBC) [Ratio] 14.5 % 11.5 - 14.5 % [facility] Hematocrit (Bld) [Volume fraction] 43.9 % 42.0 - 52.0 % [facility] Hemoglobin (Bld) [Mass/Vol] 14.6 g/dL [facility] Interpretation and review of laboratory results Abnormal [facility] Lymphocytes (Bld) [#/Vol] 1.20 10*3/uL 1.2 - 3.4 10*3/uL [facility] Lymphocytes/100 WBC (Bld) 20.2 % 20.0 - 55.0 % [facility] MCH (RBC) [Entitic mass] 34.7 pg 26.0 - 35.0 PG [facility] MCHC (RBC) [Mass/Vol] 33.2 g/dL [facility] MCV (RBC) [Entitic vol] 104.6 fL High [facility] Monocytes (Bld) [#/Vol] 0.6 10*3/uL 0.0 - 0.7 10*3/uL [facility] Monocytes/100 WBC (Bld) 10.2 % High 0.0 - 10.0 % [facility] Neutrophils (Bld) [#/Vol] 4.2 10*3/uL 1.4 - 6.5 10*3/uL [facility] Neutrophils/100 WBC (Bld) 68.2 % 37.0 - 75.0 % [facility] Platelet mean volume (Bld) [Entitic vol] 7.4 fL [facility] Platelets (Bld) [#/Vol] 304 10*3/uL 130.0 - 400.0 10*3/uL [facility] RBC (Bld) [#/Vol] 4.20 10*6/uL 4.0 - 6.1 10*6/u L [facility] WBC (Bld) [#/Vol] 6.2 10*3/uL 3.6 - 11.0 10*3/u L [facility] CREATININE SERUMon 2 Creatinine [Mass/Vol] 0.92 mg/dL [facility] GFR COMMENT Average GFR for 50-59 years old = 93. [facility] Comment on above: Chronic Kidney disea se, GFR = <60. Kidney failure, GFR = <15. The GFR estimate is not adjusted for extreme body surface area or acute process, nor has it been validated for women or ethnic groups other than and . GFR/1.73 sq M.predicted among blacks MDRD (S/P/Bld) [Vol rate/Area] 110 mL/min/{1.73_m2} ml/min/1.73sq.[facility] GFR/1.73 sq M.predicted among non-blacks MDRD (S/P/Bld) [Vol rate/Area] 91 mL/min/{1.73_m2} ml/min/1.73sq.[facility] CREATININE,SERUMon 2 Creatinine [Mass/Vol] 0.92 mg/dL Normal 0.7-1.2 [facility] Comment on above: Performed By: #### L VD125 #### Testing performed at [facility] EST. GFR, 110 ml/min/1.73sq.m [facility] Comment on above: Performed By: #### L VD125 #### Testing performed at [facility] EST. GFR,Non 91 ml/min/1.73sq.m [facility] Comment on above: Performed By: #### L VD125 #### Testing performed at [facility] GFR Information Average GFR for 50-59 years old = 93. [facility] Comment on above: Result Comment: Radiology Transporter alvin Kidney disease, GFR = <60. Kidney failure, GFR = <15. The GFR estimate is not adjusted for extreme body surface area or acute process, nor has it been validated for women or ethnic groups other than and . Performed By: #### L VD125 #### Testing performed at [facility] ESRon 07-12-2021 ESR (Bld) [Velocity] 2 mm/h Normal 0-20 [facility] Comment on above: Performed By: #### L VD125 #### Testing performed at [facility] No Panel Informationon 07-12 [facility] SEDIMENTATION RATE, AUTOMATE Don 07-12-2021 ESR (Bld) [Velocity] 2 mm/h [facility] VITAMIN D (25-HYDROXY,TOTAL) on 07-12-2021 25-hydroxyvitamin D [Mass/Vol] 47.4 NG/ML [facility] Comment on above: DEFICIENT <20 NG/ML INSUFFICIENT 20-<30 NG/ML SUFFICIENT 30-100 NG/ML POTENTIAL TOXICITY >100 NG/ML [facility] Q - QUANTIFERON TB GOLD PLUS on 03-18-2021 MITOGEN-NIL 9.02 IU/mL Normal [facility] [employer] Comment on above: Order Comment: [facility] Testing performed at: [employer] [facility], [address] [facility], [address] [place] [address], [phone], Director Of Parks And Recreation: Rick Connors MD [facility] Collection Date/Time: [facility] Results Received Date/Time: [facility] Reported Date/Time: FASTING: NO Performed By: #### [id number] #### [facility] Default [address] [place] [address] NIL 0.03 IU/mL Normal [facility] [employer] Comment on above: Order Comment: [facility] Testing performed at: [employer], [employer] [facility], [address] , [address] [place] [address], [phone], Director Of Parks And Recreation: Rick Connors MD [facility] Date/Time: [facility] Results Received Date/Time: [facility] Reported Date/Time: FASTING: NO Performed By: #### [id number] #### [facility] [address] [place] [address] QUANTIFERON(R)-TB GOLD PLUS, 1 TUBE Negative Normal NEGATIVE [facility] Comment on above: Order Comment: [facility] Testing performed at: [employer], [employer] [facility], [address] [place] [address], [address] [place] [address], [address] [place] [address], Director Of Parks And Recreation: Rick Connors MD [facility] Date/Time: [facility] Results Received Date/Time: [facility] Reported Date/Time: FASTING: NO Result Comment: Nega tive test result. M. tuberculosis complex infection unlikely. Performed By: #### [id number] #### [facility] [address] [place] [address] TB1-NIL 0.00 IU/mL Normal [facility] Comment on above: Order Comment: [facility] Testing performed at: [facility], Pre[employer]ently [facility], [address] [place] [address], [address] [place] [address], [address] [place] [address], Director Of Parks And Recreation: Rick Connors MD [facility] Date/Time: [facility] Results Received Date/Time: [facility] Reported Date/Time: FASTING: NO Performed By: #### [id number] #### [facility] [address] [place] [address] TB2-NIL 0.00 IU/mL Normal [facility] Comment on above: Order Comment: [facility] Testing performed at: [employer], [employer] [facility], [address] [place] [address], [address] [place] [address], [address] [place] [address], Director Of Parks And Recreation: Rick Connors MD [facility] Date/Time: [facility] Results Received Date/Time: [facility] Reported Date/Time: FASTING: NO Result Comment: The Nil tube value reflects the background interferon gamma immune response of the patient's blood sample. This value has been subtracted from the patient's displayed TB and Mitogen results. Lower than expected results with the Mitogen tube prevent false-negative Quantiferon readings by detecting a patient with a potential immune suppressive condition and/or suboptimal pre-analytical specimen handling. The TB1 Antigen tube is coated with the M. tuberculosis-specific antigens designed to elicit responses from TB antigen primed CD4+ helper T-lymphocytes. The TB2 Antigen tube is coated with the M. tuberculosis-specific antigens designed to elicit responses from TB antigen primed CD4+ helper and CD8+ cytotoxic T-lymphocytes. For additional information, please refer to https://[email or web address]..GenomOncology/faq/PVB793 (This link is being provided for informational/ educational purposes only.) Performed By: #### [id number] #### [facility] [address] [place] [address] Demetrius 07-13-2020 ALT [Catalytic activity/Vol] 18 U/L <50 IU/L [facility] Levar 07-13-2020 AST [Catalytic activity/Vol] 19 U/L [facility] C REACTIVE PROTEINon 021 CRP [Mass/Vol] mg/L 0 - 10 MG/L [facility] CBC, EDIF, PLATELETon 2020 ABSOLUTE BASOPHIL COUNT 0.1 10*3/uL 0.0 - 0.2 10*3/uL [facility] Basophils/100 WBC (Bld) 0.8 % 0.0 - 2.0 % [facility] Differential cell count method Nom (Bld) AUTO DIFF % [facility] Eosinophils (Bld) [#/Vol] 0.10 10*3/uL 0.0 - 0.7 10*3/uL [facility] Eosinophils/100 WBC (Bld) 1.7 % 0.0 - 11.0 % [facility] Erythrocyte distribution width (RBC) [Ratio] 15.4 % High 11.5 - 14.5 % [facility] Hematocrit (Bld) [Volume fraction] 44.9 % 42.0 - 52.0 % [facility] Hemoglobin (Bld) [Mass/Vol] 15.4 g/dL [facility] Interpretation and review of laboratory results Abnormal [facility] Lymphocytes (Bld) [#/Vol] 2.00 10*3/uL 1.2 - 3.4 10*3/uL [facility] Lymphocytes/100 WBC (Bld) 22.9 % 20.0 - 55.0 % [facility] MCH (RBC) [Entitic mass] 36.0 pg High 26.0 - 35.0 PG [facility] MCHC (RBC) [Mass/Vol] 34.3 g/dL [facility] MCV (RBC) [Entitic vol] 104.8 fL High [facility] Monocytes (Bld) [#/Vol] 1.0 10*3/uL High 0.0 - 0.7 10*3/uL [facility] Monocytes/100 WBC (Bld) 11.1 % High 0.0 - 10.0 % [facility] Neutrophils (Bld) [#/Vol] 5.4 10*3/uL 1.4 - 6.5 10*3/uL [facility] Neutrophils/100 WBC (Bld) 63.5 % 37.0 - 75.0 % [facility] Platelet mean volume (Bld) [Entitic vol] 7.6 fL [facility] Platelets (Bld) [#/Vol] 276 10*3/uL 130.0 - 400.0 10*3/uL [facility] RBC (Bld) [#/Vol] 4.29 10*6/uL 4.0 - 6.1 10*6/u L [facility] WBC (Bld) [#/Vol] 8.6 10*3/uL 3.6 - 11.0 10*3/u L [facility] CREATININE SERUMon Creatinine [Mass/Vol] 1.01 mg/dL [facility] GFR/1.73 sq M predicted among blacks MDRD (S/P/Bld) [Vol rate/Area] mL/min/{1.73_m2} ml/min/1.73sq.m [facility] GFR/1.73 sq M predicted among non-blacks MDRD (S/P/Bld) [Vol rate/Area] Average GFR for 50-59 years old = 93. [facility] Comment on above: Chronic Kidney disea se, GFR = <60. Kidney failure, GFR = <15. The GFR estimate is not adjusted for extreme body surface area or acute process, nor has it been validated for women or ethnic groups other than and . GFR/1.73 sq M predicted among non-blacks MDRD (S/P/Bld) [Vol rate/Area] mL/min/{1.73_m2} ml/min/1.73sq.m [facility] Other[facility] 07-13-2020 [facility] SEDIMENTATION RATE, AUTOMATE Don 07-13-2020 ESR (Bld) [Velocity] 9 mm/h [facility] VITAMIN D (25-HYDROXY,TOTAL) on 07-13-2020 25-Hydroxyvitamin D2+25-Hydroxyvitamin D3 [Mass/Vol] 54.1 NG/ML [facility] Comment on above: DEFICIENT <20 NG/ML INSUFFICIENT 20-<30 NG/ML SUFFICIENT 30-100 NG/ML POTENTIAL TOXICITY >100 NG/ML [facility] Operative Reporton Operative Report MR#: [id number] S [facility] Pt. Name: Glenda Buckley Room #: 0C Discharge Date: Birthdate: 1965 OPERATIVE REPORT DATE OF SURGERY: 07/05/2020 SURGEON: Pili Allan M.D. PREOPERATIVE DIAGNOSES: Epigastric hernia, incisional hernia. POSTOPERATIVE DIAGNOSES: Incisional hernia with preperitoneal fat as content with possible fat necrosis. PROCEDURE PERFORMED: Excision of preperitoneal sac with hernia contents, and primary repair of epigastric incisional hernia. ANESTHESIA: General. ESTIMATED BLOOD LOSS: Minimal. FLUIDS DURING THE PROCEDURE: 200 mL of crystalloid. SPECIMEN SENT: Epigastric hernia sac with contents. COMPLICATIONS: None. PROCEDURE IN DETAIL: The patient was explained about the benefits and risks of the procedure including, but not limited to, bleeding, infection, injury to surrounding structures, need for further procedure. The patient expressed understanding and provided written consent for the procedure. The patient was brought to the OR, laid in supine position, general anesthesia was induced and patient was intubated. The abdomen was prepped from xiphisternum to pubic symphysis and draped adequately. A proper time-out was performed. The hernia was identified on the right side of the midline in the epigastric region at just into a previous incision site from his Libra fundoplication done previously. Local anesthesia was infiltrated at the most prominent part of the hernia. An 8 cm transverse incision was made over the hernia site. The underlying subcutaneous tissue was dissected up to the neck of the hernia sac using electrocautery and blunt dissection. The hernia sac including its contents which included preperitoneal fat with some amount of fat necrosis was excised and sent for pathology. A 1 cm defect was identified in the anterior rectus sheath. The defect was closed using Prolene sutures placed in a [id number] fashion. No mesh was placed. The subcutaneous tissue was closed using 3-0 Vicryl sutures. A 4-0 Vicryl was then used to close the skin in a subcuticular fashion. Steri-Strips were put into place. The surrounding skin was washed and dried, and sterile dressings were put into place. All instrument and sponge counts were complete by the end of the procedure. The patient tolerated the procedure well, was extubated and transferred to PACU in stable condition. Dr. Allan was present for the entire procedure. Electronically Signed by: Pili Allan M.D. 07/08/2020 06:33 P __ Pili Allan M.D. I was present for the entire procedure. Date Dict: 07/05/2020/02:38 P/Neelam Stiles MD Date Trans: 07/06/2020 01:22 A/dio [id number] cc: Rodrigo Luz M.D. [address] [place] [phone] Normal [facility] POC GLUCOSE LABon 07-05-2020 Glucose [Mass/Vol] 90 mg/dL Normal 70-100 [facility] Comment on above: Performed By: #### [id number] #### [facility] [address] [facility] [place] [address], [facility] Demetrius 01-13-2020 ALT [Catalytic activity/Vol] 21 U/L <50 IU/L [facility] [employer] [facility] Levar 01-13-2020 AST [Catalytic activity/Vol] 22 U/L [facility] C REACTIVE PROTEINon 020 CRP [Mass/Vol] mg/L 0 - 10 MG/L [employer] [facility] CBC, EDIF, PLATELETon 2019 ABSOLUTE BASOPHIL COUNT 0.0 10*3/uL 0 - 0.2 10*3/uL [facility] Basophils/100 WBC (Bld) 0.6 % 0 - 2 % [facility] Differential cell count method Nom (Bld) AUTO DIFF % [facility] Eosinophils (Bld) [#/Vol] 0.10 10*3/uL 0 - 0.7 10*3/uL [facility] Eosinophils/100 WBC (Bld) 1.1 % 0 - 11 % [facility] Erythrocyte distribution width (RBC) [Ratio] 14.1 % 11.5 - 14.5 % [facility] Hematocrit (Bld) [Volume fraction] 43.7 % 42 - 52 % [facility] Hemoglobin (Bld) [Mass/Vol] 15.0 g/dL [facility] Interpretation and review of laboratory results Abnormal [facility] Lymphocytes (Bld) [#/Vol] 1.50 10*3/uL 1.2 - 3.4 10*3/uL [facility] Lymphocytes/100 WBC (Bld) 21.7 % 20 - 55 % [facility] MCH (RBC) [Entitic mass] 35.2 pg High 26 - 35 PG [facility] MCHC (RBC) [Mass/Vol] 34.3 g/dL [facility] MCV (RBC) [Entitic vol] 102.7 fL High [facility] Monocytes (Bld) [#/Vol] 0.8 10*3/uL High 0 - 0.7 10*3/uL [facility] Monocytes/100 WBC (Bld) 11.4 % High 0 - 10 % [facility] Neutrophils (Bld) [#/Vol] 4.4 10*3/uL 1.4 - 6.5 10*3/uL [facility] Neutrophils/100 WBC (Bld) 65.2 % 37 - 75 % [facility] Platelet mean volume (Bld) [Entitic vol] 7.4 fL [facility] Platelets (Bld) [#/Vol] 265 10*3/uL 130 - 400 10*3/uL [facility] RBC (Bld) [#/Vol] 4.25 10*6/uL 4 - 6.1 10*6/uL [facility] WBC (Bld) [#/Vol] 6.8 10*3/uL 3.6 - 11 10*3/uL [facility] CREATININE SERUMon 0 Creatinine [Mass/Vol] 0.95 mg/dL [facility] GFR/1.73 sq M predicted among blacks MDRD (S/P/Bld) [Vol rate/Area] mL/min/{1.73_m2} ml/min/1.73sq.m [facility] GFR/1.73 sq M predicted among non-blacks MDRD (S/P/Bld) [Vol rate/Area] Average GFR for 50-59 years old = 93. [employer] [facility] Comment on above: Chronic Kidney disea se, GFR = <60. Kidney failure, GFR = <15. The GFR estimate is not adjusted for extreme body surface area or acute process, nor has it been validated for women or ethnic groups other than and . GFR/1.73 sq M predicted among non-blacks MDRD (S/P/Bld) [Vol rate/Area] mL/min/{1.73_m2} ml/min/1.73sq.m [facility] SEDIMENTATION RATE, AUTOMATE Don 01-13-2020 ESR (Bld) [Velocity] 5 mm/h [facility] [employer] [facility] Vital Signs Date Time Vital Sign Value Performing Clinician Facility 01-23-2023 08:58-0400 Body height 182.9 cm Tra Vale Jr., DO Work Phone: [facility] 01-23-2023 08:58-0400 Body mass index (BMI) [Ratio] 33.52 kg/m2 Tra Vale Jr., DO Work Phone: [facility] 01-23-2023 08:58-0400 Body temperature 97.81 [degF] Tra Vale Jr., DO Work Phone: [facility] 01-23-2023 08:58-0400 Body weight 112.1 kg Tra Vale Jr., DO Work Phone: [facility] 01-23-2023 08:58-0400 Diastolic blood pressure 80 mm[Hg] Tra Vale Jr., DO Work Phone: [facility] 01-23-2023 08:58-0400 Heart rate 66 /min Tra Cartyneliaelissa Kumar, DO Work Phone: [facility] 01-23-2023 08:58-0400 SaO2% (BldA) [Mass fraction] 99 % Tra Vale Jr., DO Work Phone: [facility] 01-23-2023 08:58-0400 Systolic blood pressure 122 mm[Hg] Tra Cartyneliaelissa Kumar, DO Work Phone: [facility] 07-25-2022 08:41-0400 Body height 182.9 cm Tra Cartyneliaelissa Kumar, DO Work Phone: [facility] 07-25-2022 08:41-0400 Body mass index (BMI) [Ratio] 33.53 kg/m2 Tra Cartyneliaelissa Kumar, DO Work Phone: [phone] [place] [address] 07-25-2022 08:41-0400 Body weight 112.13 kg Tra Vale Jr., DO Work Phone: [facility] 07-25-2022 08:41-0400 Diastolic blood pressure 76 mm[Hg] Tra Vale Jr., DO Work Phone: [facility] 07-25-2022 08:41-0400 Heart rate 64 /min Tra Carlozneliaelissa MccallumMichael, DO Work Phone: [facility] 07-25-2022 08:41-0400 Respiratory rate 18 /min Tra Cartyneliaelissa Mccallum., DO Work Phone: [facility] 07-25-2022 08:41-0400 SaO2% (BldA) [Mass fraction] 99 % Tra Vale Jr., DO Work Phone: [facility] 07-25-2022 08:41-0400 Systolic blood pressure 108 mm[Hg] Tra Vale Jr., DO Work Phone: [facility] 06-17-2022 12:30-0400 Body height 180.34 cm Tania Neal Other [facility] Other 06-17-2022 12:30-0400 Body mass index (BMI) [Ratio] 33.47 kg/m2 Tania Neal Other [employer] Other 06-17-2022 12:30-0400 Body weight 108.86 kg Tania Neal Other [facility] Other 06-17-2022 12:30-0400 Diastolic blood pressure 90 mm[Hg] Tania Neal Other [facility] Other 06-17-2022 12:30-0400 Respiratory rate 18 /min Tania Neal Other [employer] Other 06-17-2022 12:30-0400 SaO2% (BldA) [Mass fraction] 99 % Tania Neal Other [employer] Other 06-17-2022 12:30-0400 Systolic blood pressure 150 mm[Hg] Tania Neal Other [facility] Other 01-10-2022 08:38-0400 Body height 182.9 cm Tra Vale Jr., DO Work Phone: [facility] [facility] 01-10-2022 08:38-0400 Body mass index (BMI) [Ratio] 36.21 kg/m2 Tra Vale Jr., DO Work Phone: [facility] [facility] 01-10-2022 08:38-0400 Body temperature 98.01 [degF] Tra Vale Jr., DO Work Phone: [employer] 01-10-2022 08:38-0400 Body weight 121.11 kg Tra Vale Jr., DO Work Phone: [facility] 01-10-2022 08:38-0400 Diastolic blood pressure 78 mm[Hg] Tra Vale Jr., DO Work Phone: [facility] 01-10-2022 08:38-0400 Heart rate 71 /min Tra Vale Jr., DO Work Phone: [facility] 01-10-2022 08:38-0400 SaO2% (BldA) [Mass fraction] 98 % Tra Cartyneliaelissa Kumar, DO Work Phone: [facility] 01-10-2022 08:38-0400 Systolic blood pressure 116 mm[Hg] Tra Catryneliaelissa Kumar, DO Work Phone: [phone] [place] [address] 07-12-2021 08:11-0400 Body height 182.9 cm Tra Vale Jr., DO Work Phone: [phone])[phone] [place] [address] 07-12-2021 08:11-0400 Body mass index (BMI) [Ratio] 38.52 kg/m2 Tra Vale Jr., DO Work Phone: [facility] 07-12-2021 08:11-0400 Body temperature 98.01 [degF] Tra Cartyneliaelissa Kumar, DO Work Phone: [facility] 07-12-2021 08:11-0400 Body weight 128.82 kg Tra Vale Jr., DO Work Phone: [phone] [place] [address] 07-12-2021 08:11-0400 Diastolic blood pressure 76 mm[Hg] Tra Cartyneliaelissa Kumar, DO Work Phone: [facility] 07-12-2021 08:11-0400 Heart rate 70 /min Tra Cartyneliaelissa MccallumMichael, DO Work Phone: [facility] 07-12-2021 08:11-0400 SaO2% (BldA) [Mass fraction] 97 % Tra Vale Jr., DO Work Phone: [facility] 07-12-2021 08:11-0400 Systolic blood pressure 126 mm[Hg] Tra Vale Jr., DO Work Phone: [facility] 07-13-2020 08:01-0400 BMI (Body Mass Index) 38.52 kg/m2 [place] 07-13-2020 08:01-0400 Body Temperature 97.9 [degF] [facility] 07-13-2020 08:01-0400 Body weight 128.82 kg [facility] 07-13-2020 08:01-0400 BP Diastolic 84 mm[Hg] [facility] 07-13-2020 08:01-0400 BP Systolic 126 mm[Hg] [facility] 07-13-2020 08:01-0400 Height 182.9 cm [facility] 07-13-2020 08:01-0400 Pulse (Heart Rate) 71 /min [place] 07-13-2020 08:01-0400 Pulse Oximetry 97 % [facility] 01-13-2020 08:05-0400 BMI (Body Mass Index) 43.81 kg/m2 [place] 01-13-2020 08:05-0400 Body Temperature 97 [degF] [facility] 01-13-2020 08:05-0400 Body weight 146.51 kg [facility] 01-13-2020 08:05-0400 BP Diastolic 80 mm[Hg] [facility] 01-13-2020 08:05-0400 BP Systolic 130 mm[Hg] [facility] 01-13-2020 08:05-0400 Height 182.9 cm [facility] 09-09-2019 08:21-0400 BMI (Body Mass Index) 43.81 kg/m2 [facility] 09-09-2019 08:21-0400 Body Temperature 97.81 [degF] [facility] 09-09-2019 08:21-0400 Body weight 146.51 kg [facility] 09-09-2019 08:21-0400 BP Diastolic 80 mm[Hg] [facility] 09-09-2019 08:21-0400 BP Systolic 138 mm[Hg] [facility] 09-09-2019 08:210400 Height 182.9 cm [facility] 09-09-2019 08:21-0400 Pulse (Heart Rate) 83 /min [facility] 09-09-2019 08:21-0400 Pulse Oximetry 98 % [facility] 05-06-2019 09:12-0500 BMI (Body Mass Index) 42.72 kg/m2 [facility] 05-06-2019 09:12-0500 Body Temperature 98.01 [degF] [facility] 05-06-2019 09:12-0500 Body weight 142.88 kg [facility] 05-06-2019 09:12-0500 BP Diastolic 86 mm[Hg] [facility] 05-06-2019 09:12-0500 BP Systolic 154 mm[Hg] [facility] 05-06-2019 09:12-0500 Height 182.9 cm [facility] 05-06-2019 09:12-0500 Pulse (Heart Rate) 85 /min [facility] 05-06-2019 09:12-0500 Pulse Oximetry 97 % [facility] 01-07-2019 09:14-0400 BMI (Body Mass Index) 42.72 kg/m2 [facility] 01-07-2019 09:14-0400 Body Temperature 98.01 [degF] [facility] 01-07-2019 09:14-0400 Body weight 142.88 kg [facility] 01-07-2019 09:14-0400 BP Diastolic 88 mm[Hg] [facility] 01-07-2019 09:14-0400 BP Systolic 132 mm[Hg] [facility] 01-07-2019 09:14-0400 Height 182.9 cm [facility] 01-07-2019 09:14-0400 Pulse (Heart Rate) 76 /min [facility] 01-07-2019 09:14-0400 Pulse Oximetry 97 % [facility] 09-03-2018 11:29-0400 BMI (Body Mass Index) 42.83 kg/m2 [facility] 09-03-2018 11:29-0400 Body Temperature 98.01 [degF] [facility] 09-03-2018 11:29-0400 BP Diastolic 88 mm[Hg] [facility] 09-03-2018 11:29-0400 BP Systolic 132 mm[Hg] [facility] 09-03-2018 11:29-0400 Height 182.9 cm [facility] 09-03-2018 11:29-0400 Pulse (Heart Rate) 72 /min [facility] 09-03-2018 11:29-0400 Pulse Oximetry 97 % [facility] 09-03-2018 11:29-0400 Weight 143.25 kg [facility] 05-03-2018 11:51-0500 BMI (Body Mass Index) 40.01 kg/m2 [facility] Work Phone: 05-03-2018 11:51-0500 Body Temperature 98.01 [degF] [facility] Work Phone: 05-03-2018 11:51-0500 BP Diastolic 80 mm[Hg] [facility] Work Phone: 05-03-2018 11:51-0500 BP Systolic 132 mm[Hg] [facility] Work Phone: 05-03-2018 11:51-0500 Height 182.9 cm [facility] Work Phone: 05-03-2018 11:51-0500 Pulse (Heart Rate) 89 /min [facility] Work Phone: 05-03-2018 11:51-0500 Pulse Oximetry 97 % [facility] Work Phone: 05-03-2018 11:51-0500 Weight 133.81 kg [facility] Work Phone: 03-29-2018 07:14-0500 Body Temperature 98.01 [degF] [facility] Work Phone: 03-29-2018 07:14-0500 BP Diastolic 84 mm[Hg] [facility] Work Phone: 03-29-2018 07:14-0500 BP Systolic 136 mm[Hg] [facility] Work Phone: 03-29-2018 07:14-0500 Height 182.9 cm [facility] Work Phone: 03-29-2018 07:14-0500 Pulse (Heart Rate) 80 /min [facility] Work Phone: 03-29-2018 07:14-0500 Pulse Oximetry 96 % [facility] Work Phone: Encounters Encounter Date Encounter Type Care Provider Facility Start: 04-06-2023 End: 04-07-2023 ambulatory Yusuf FINE Facility: [facility] Start: 03-12-2023 End: 03-13-2023 ambulatory German Carrion Facility:[facility] [facility] Start: 03-05-2023 End: 03-06-2023 ambulatory German Carrion Facility:[facility] [place] [facility] Start: 02-15-2023 End: 02-16-2023 ambulatory German Carrion Facility:[facility] Start: 01-23-2023 ambulatory [facility] Start: 01-23-2023 End: 01-23-2023 Office outpatient visit 15 minutes Tra Vale DO Work Phone: [facility] Comment on above: Psoriatic arthritis (Primary Dx); 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; Psoriatic spondylitis; Plaque psoriasis; Psoriasis; SAPHO syndrome; History of kidney stones; 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 arthritis; Long-term current use of high risk medication other than anticoagulant; 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, long term care pharmacist, current use; Vitamin D deficiency; DDD (degenerative disc disease), cervical; Impingement syndrome of both shoulders; Osteoarthritis of cervical spine, unspecified spinal osteoarthritis complication status; Osteoarthritis of both acromioclavicular joints; Osteoarthritis of both glenohumeral joints; Osteoarthritis of both hands, unspecified osteoarthritis type; Osteoarthritis of both hips, unspecified osteoarthritis type; Osteoarthritis of both wrists, unspecified osteoarthritis type; Primary osteoarthritis of both knees Start: 12-06-2022 ambulatory German Carrion Facility:[facility] Start: 11-15-2022 End: 11-15-2022 Lab Drop off German Carrion [facility] Start: 11-15-2022 End: 11-16-2022 ambulatory [facility] Start: 10-31-2022 End: 11-01-2022 ambulatory CHARACTER ACTOR Yakelin L Jack Facility[facility] Start: 10-31-2022 End: 10-31-2022 Lab Drop off Yakelin L Jack [facility] Start: 10-20-2022 ambulatory German Carrion Facility:[facility] Start: 10-20-2022 End: 10-21-2022 ambulatory German Carrion Facility:[facility] Start: 09-08-2022 ambulatory KEESHA Rodriguez Facili ty:[facility] Start: 08-22-2022 ambulatory AMI KOLBMISHAYNE . Facility:[facility] Start: 07-29-2022 End: 07-30-[address] RODRIGO LUZ . Facility:[facility] Start: 07-25-2022 End: 07-26-2022 ambulatory AMI KOLBMIPATHY . Facility:[facility] Start: 07-25-2022 ambulatory TRA 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); Long-term current use of high risk medication other than anticoagulant; 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, custodial, current use; Abnormal renal function test; Vitamin D deficiency; DDD (degenerative disc disease), cervical; Impingement syndrome of both shoulders; Osteoarthritis of cervical spine, unspecified spinal osteoarthritis complication status; Osteoarthritis of both acromioclavicular joints; Osteoarthritis of both glenohumeral joints; Osteoarthritis of both hands, unspecified osteoarthritis type; Osteoarthritis of both hips, unspecified osteoarthritis type; Osteoarthritis of both wrists, unspecified osteoarthritis type; Primary osteoarthritis of both knees Start: 07-21-2022 ambulatory RODRIGO LUZ [facility] Start: 07-20-2022 End: 07-21-2022 ambulatory TRA VALE Facility:[facility] Start: 06-19-2022 End: 06-20-2022 ambulatory FAUSTINO Santiago Facility:[facility] Start: 06-17-2022 End: 06-17-2022 ambulatory Tania Neal Other [facility] Other Start: 06-17-2022 Office outpatient ne w 20 minutes Tania Neal [facility] Start: 06-16-2022 ambulatory German Carrion Facility:[facility] Start: 06-13-2022 End: 06-14-2022 ambulatory AMI KOLBMIPATHY . Facility:[facility] Start: 06-06-2022 ambulatory RODRIGO LUZ Facility:[facility] Start: 05-23-2022 End: 05-24-2022 ambulatory TRA VALE Facility:[facility] Start: 04-10-2022 End: 05-30-2022 ambulatory FRACISCO ARCHULETA . Facility:[facility] Start: 03-22-2022 ambulatory RODRIGO LUZ [facility] Start: 03-21-2022 End: 03-22-2022 ambulatory ELEN GUSTAVO Facility:[facility] Start: 03-08-2022 End: 03-08-[address] RODRIGO LUZ . Facility:[facility] Start: 02-27-2022 End: 03-08-[address] RODRIGO LUZ . Facility:[facility] Start: 02-16-2022 End: 02-17-[address] PAXTON SOLANO . 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 Facility:[facility] Start: 11-17-2021 End: 11-18-2021 ambulatory TRA VALE Facility:[facility] Start: 10-27-2021 End: 10-28-[address] RODRIGO LUZ . Facility:[facility] Start: 10-23-2021 End: 10-23-[address] RODRIGO LUZ . Facility:[facility] Start: 09-20-2021 End: 09-20-[address] PAXTON SOLANO . Facility:[facility] Start: 09-16-2021 End: 09-17-2021 ambulatory TRA VALE Facility:[facility] Start: 07-12-2021 ambulatory TRA VALE [facility] Start: 07-12-2021 End: 07-12-2021 Office outpatient visit 15 minutes Tra Vale DO Work Phone: [facility] Comment on above: Psoriatic arthropath y of distal interphalangeal (DIP) joint (Primary Dx); Psoriatic arthritis; Psoriatic spondylitis; Psoriasis; Plaque psoriasis; Anemia, unspecified type; 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, custodial, current use; Long-term current use of high risk medication other than anticoagulant; care home current use of 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; 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); 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 arthritis; Vitamin D deficiency; Primary osteoarthritis of both knees; Osteoarthritis of both wrists, unspecified osteoarthritis type; Osteoarthritis of both hips, unspecified osteoarthritis type; Osteoarthritis of both hands, unspecified osteoarthritis type; Osteoarthritis of both glenohumeral joints; Osteoarthritis of both acromioclavicular joints; Osteoarthritis of cervical spine, unspecified spinal osteoarthritis complication status; Impingement syndrome of both shoulders; DDD (degenerative disc disease), cervical; Hyperchromic anemia Start: 07-13-2020 End: 07-13-2020 Office outpatient visit 25 minutes Tra Vale Work Phone: [facility] Comment on above: Psoriatic arthritis (Primary Dx); 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; Psoriatic spondylitis; Psoriasis; SAPHO syndrome; 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 arthritis; care 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); 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, custodial, current use; Long-term current use of high risk medication other than anticoagulant; Vitamin D deficiency; Osteoarthritis of cervical spine, unspecified spinal osteoarthritis complication status; DDD (degenerative disc disease), cervical; Osteoarthritis of both hips, unspecified osteoarthritis type; Osteoarthritis of both acromioclavicular joints; Osteoarthritis of both glenohumeral joints; Impingement syndrome of both shoulders; Primary osteoarthritis of both knees; Osteoarthritis of both wrists, unspecified osteoarthritis type; Osteoarthritis of both hands, unspecified osteoarthritis type; Plaque psoriasis Start: 07-05-2020 End: 07-06-2020 ambulatory EDMUNDTEOFILO ALLAN Facility:[email or web address] Start: 01-13-2020 End: 01-13-2020 Office outpatient visit 25 minutes Tra Vale Work Phone: [facility] Comment on above: Psoriatic arthritis (Primary Dx); Psoriasis; Plaque psoriasis; 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, custodial, current use; Long-term current use of high risk medication other than anticoagulant; 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); 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 arthritis; Abnormal renal function test; Vitamin D deficiency; Primary osteoarthritis of both knees; Osteoarthritis of both wrists, unspecified osteoarthritis type; Osteoarthritis of both hips, unspecified osteoarthritis type; Osteoarthritis of both hands, unspecified osteoarthritis type; Osteoarthritis of both glenohumeral joints; Osteoarthritis of both acromioclavicular joints; Osteoarthritis of cervical spine, unspecified spinal osteoarthritis complication status; Impingement syndrome of both shoulders; DDD (degenerative disc disease), cervical; Psoriatic spondylitis; 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 Start: 09-09-2019 End: 09-09-2019 Office outpatient visit 25 minutes rTa Vale Work [facility] [place] on above: Psoriatic arthritis (Primary Dx); 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; Psoriatic spondylitis; Psoriasis; SAPHO syndrome; 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 arthritis; care 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); 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, custodial, current use; Long-term current use of high risk medication other than anticoagulant; Vitamin D deficiency; Osteoarthritis of cervical spine, unspecified spinal osteoarthritis complication status; DDD (degenerative disc disease), cervical; Osteoarthritis of both hips, unspecified osteoarthritis type; Osteoarthritis of both acromioclavicular joints; Osteoarthritis of both glenohumeral joints; Impingement syndrome of both shoulders; Primary osteoarthritis of both knees; Osteoarthritis of both wrists, unspecified osteoarthritis type; Osteoarthritis of both hands, unspecified osteoarthritis type; Plaque psoriasis Start: 05-06-2019 End: 05-06-2019 Office outpatient visit 25 minutes Tra Vale Work [facility] Comment on above: Psoriatic arthritis (Primary Dx); 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; Psoriatic spondylitis; SAPHO syndrome; Anemia, unspecified type; 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 arthritis; 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); care home current use of 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; Long-term current use of high risk medication other than anticoagulant; 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, long term care pharmacist, current use; Vitamin D deficiency; DDD (degenerative disc disease), cervical; Impingement syndrome of both shoulders; Osteoarthritis of cervical spine, unspecified spinal osteoarthritis complication status; Osteoarthritis of both acromioclavicular joints; Osteoarthritis of both glenohumeral joints; Osteoarthritis of both hands, unspecified osteoarthritis type; Osteoarthritis of both hips, unspecified osteoarthritis type; Osteoarthritis of both wrists, unspecified osteoarthritis type; Primary osteoarthritis of both knees; Plaque psoriasis; Psoriasis Start: 01-10-2019 End: 01-10-2019 Patient encounter procedure Other Other [facility] [employer] Start: 01-10-2019 End: 01-10-2019 Telephone encounter Seda Bonilla [facility] Comment on above: Insurance ([place] 0.05%) Start: 01-07-2019 End: 01-07-2019 Refill Juju Green [facility] Comment on above: Psoriatic arthritis; Psoriatic spondylitis; Psoriasis; Plaque psoriasis; Anemia, unspecified type; 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, custodial, current use; Long-term current use of high risk medication other than anticoagulant; care home current use of 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; 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); 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 arthritis; Vitamin D deficiency; Primary osteoarthritis of both knees; Osteoarthritis of both wrists, unspecified osteoarthritis type; Osteoarthritis of both hips, unspecified osteoarthritis type; Osteoarthritis of both hands, unspecified osteoarthritis type; Osteoarthritis of both glenohumeral joints; Osteoarthritis of both acromioclavicular joints; Osteoarthritis of cervical spine, unspecified spinal osteoarthritis complication status; Impingement syndrome of both shoulders; DDD (degenerative disc disease), cervical Start: 01-07-2019 End: 01-07-2019 Office outpatient visit 25 minutes Tra Vale Work [facility] Comment on above: Psoriatic arthritis (Primary Dx); Psoriatic spondylitis; Psoriasis; Plaque psoriasis; Anemia, unspecified type; 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, custodial, current use; Long-term current use of high risk medication other than anticoagulant; 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; 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); 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 arthritis; Vitamin D deficiency; Primary osteoarthritis of both knees; Osteoarthritis of both wrists, unspecified osteoarthritis type; Osteoarthritis of both hips, unspecified osteoarthritis type; Osteoarthritis of both hands, unspecified osteoarthritis type; Osteoarthritis of both glenohumeral joints; Osteoarthritis of both acromioclavicular joints; Osteoarthritis of cervical spine, unspecified spinal osteoarthritis complication status; Impingement syndrome of both shoulders; DDD (degenerative disc disease), cervical Start: 11-08-2018 End: 11-08-2018 Outside Orders Tra Vale Work Phone: [facility] Start: 11-06-2018 End: 11-06-2018 Outside Orders Tra Vale Work Phone: [facility] Start: 11-05-2018 End: 11-05-2018 Outside Orders Tra Vale Work Phone: [facility] Start: 09-04-2018 End: 09-04-2018 Telephone encounter Juju Green [facility] Comment on above: Results Start: 09-03-2018 End: 09-03-2018 Orders Only Tra Vale [facility] Comment on above: Vitamin D deficiency (Primary Dx) Start: 09-03-2018 End: 09-03-2018 [facility] Comment on above: Psoriatic arthritis (Primary Dx); 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; Psoriatic spondylitis; 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 arthritis; care 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); care home current use of 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; Long-term current use of high risk medication other than anticoagulant; 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, long term care pharmacist, current use; Noncompliance; Patient non adherence; Vitamin D deficiency; DDD (degenerative disc disease), cervical; Impingement syndrome of both shoulders; Lumbosacral spondylosis without myelopathy; Osteoarthritis of cervical spine, unspecified spinal osteoarthritis complication status; Osteoarthritis of both acromioclavicular joints; Osteoarthritis of both glenohumeral joints; Osteoarthritis of both hands, unspecified osteoarthritis type; Osteoarthritis of both hips, unspecified osteoarthritis type; Osteoarthritis of both wrists, unspecified osteoarthritis type; Primary osteoarthritis of both knees; Plaque psoriasis; Psoriasis Start: 07-01-2018 End: 07-01-2018 Patient encounter procedure Other Other [facility] Start: 05-29-2018 End: 05-29-2018 Patient encounter procedure Juju Green [facility] Comment on above: Psoriatic arthritis; 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; Psoriatic spondylitis; SAPHO syndrome; Psoriasis; Anemia, unspecified type; 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); 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; 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, custodial, current use; Long-term current use of high risk medication other than anticoagulant; Vitamin D deficiency; Lumbosacral spondylosis without myelopathy; Osteoarthritis of cervical spine, unspecified spinal osteoarthritis complication status; DDD (degenerative disc disease), cervical; Osteoarthritis of both hips, unspecified osteoarthritis type; Osteoarthritis of both acromioclavicular joints; Osteoarthritis of both glenohumeral joints; Impingement syndrome of both shoulders; Primary osteoarthritis of both knees; Osteoarthritis of both wrists, unspecified osteoarthritis type; Osteoarthritis of both hands, unspecified osteoarthritis type; Plaque psoriasis Start: 05-28-2018 End: 05-28-2018 Patient encounter procedure Other Other [facility] Start: 05-24-2018 End: 05-24-2018 Patient encounter procedure Other Other [facility] Start: 05-15-2018 End: 05-15-2018 Patient encounter procedure Tra Vale Work Phone: [facility] Start: 05-07-2018 End: 05-07-2018 Telephone encounter Kamran Orlando Work Phone: [facility] Comment on above: Referral Start: 05-06-2018 End: 05-06-2018 Telephone encounter Kenyetta Emmanuel [facility] Comment on above: Referral Start: 05-03-2018 End: 05-03-2018 Office outpatient visit 40 minutes Tra Vale Work Phone: [facility] Comment on above: Psoriatic arthritis (Primary Dx); 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; Psoriatic spondylitis; SAPHO syndrome; Psoriasis; Anemia, unspecified type; 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); care home current use of 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; 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, custodial, current use; Long-term current use of high risk medication other than anticoagulant; Vitamin D deficiency Start: 04-19-2018 End: 04-19-2018 Telephone encounter Donde [facility] Comment on above: Insurance ([employer] ) Start: 04-17-2018 End: 04-17-2018 Telephone encounter Tra Vale Work Phone: [facility] Comment on above: Medication Managemen t Start: 04-16-2018 End: 04-16-2018 Telephone encounter [facility] Comment on above: Insurance ([employer] ) Start: 04-05-2018 End: 04-05-2018 Patient encounter procedure Tra Vale Work Phone: [facility] Start: 04-04-2018 End: 04-04-2018 Patient encounter procedure Tra Vale Work Phone: [facility] Start: 04-03-2018 End: 04-03-2018 Patient encounter procedure Juju Green [facility] Comment on above: Results Start: 04-01-2018 End: 04-01-2018 Patient encounter procedure Tra Vale Work Phone: [facility] Comment on above: Vitamin D deficiency (Primary Dx) Start: 03-29-2018 Patient encounter status Tra Vale Jr., DO Work Phone: [facility] Start: 03-29-2018 End: 03-29-2018 Office outpatient new 60 minutes Tra Vale Work Phone: [facility] Comment on above: Psoriatic arthritis (Primary Dx); 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; Psoriatic spondylitis; SAPHO syndrome; Psoriasis; Fatigue, unspecified type; 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 arthritis; 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); 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; 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, custodial, current use; Long-term current use of high risk medication other than anticoagulant Procedures Date Procedure Procedure Detail Performing Clinician Start: 07-05-2020 ANESTH REPAIR OF HERNIA DANIELA MILIAN Start: 07-05-2020 RPR VENTRAL DIGNA GLENROY ALLAN Start: 11-04-2018 LABS (OUTSIDE) Tra Vale Work Phone: Start: 05-13-2018 ORDERS (OUTSIDE) Tra Vale Work Phone: Start: 04-04-2018 End: 04-04-2018 LABS (OUTSIDE) Tra Vale Work Phone: Start: 03-29-2018 End: 03-29-2018 LABS (OUTSIDE) Tra [facility] Work Phone: [facility] Comment on above: 1999 Coronary artery bypa ss graft operation planned [employer] Comment on above: 2003 Inguinal hernia (disorder) J catie [facility] Comment on above: repair 2004 Plan of Treatment Date Care Activity Detail Author Start: 11-14-2029 Tetanus vaccination TETANUS [facility] Start: 07-31-2023 End: 07-31-2023 Patient encounter procedure 07/31/2023 9:00 AM EDT Office Visit [facility] [address] [place] [id number] Tra Vale Jr., DO [address] [place] [address] [facility] Start: 07-11-2023 End: 01-24-2024 VITAMIN D (25-HYDROXY,TOTAL) VITAMIN D (25-HYDROXY,TOTAL) Lab Routine Psoriatic arthritis 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 Plaque psoriasis Psoriasis SAPHO syndrome History of kidney stones 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 arthritis Long-term current use of high risk medication other than anticoagulant 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, custodial, current use Vitamin D deficiency DDD (degenerative disc disease), cervical Impingement syndrome of both shoulders Osteoarthritis of cervical spine, unspecified spinal osteoarthritis complication status Osteoarthritis of both acromioclavicular joints Osteoarthritis of both glenohumeral joints Osteoarthritis of both hands, unspecified osteoarthritis type Osteoarthritis of both hips, unspecified osteoarthritis type Osteoarthritis of both wrists, unspecified osteoarthritis type Primary osteoarthritis of both knees Expected: 07/11/2023 (Approximate), Expires: 01/24/2024 [facility] Comment on above: Expected: 07/11/2023 (Approximate), Expi res: 01/24/2024 Start: 07-11-2023 End: 01-24-2024 VITAMIN D, (1,25 DIHYDROXY) VITAMIN D, (1,25 DIHYDROXY) Lab Routine Psoriatic arthritis 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 Plaque psoriasis Psoriasis SAPHO syndrome History of kidney stones 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 arthritis Long-term current use of high risk medication other than anticoagulant 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, long term care pharmacist, current use Vitamin D deficiency DDD (degenerative disc disease), cervical Impingement syndrome of both shoulders Osteoarthritis of cervical spine, unspecified spinal osteoarthritis complication status Osteoarthritis of both acromioclavicular joints Osteoarthritis of both glenohumeral joints Osteoarthritis of both hands, unspecified osteoarthritis type Osteoarthritis of both hips, unspecified osteoarthritis type Osteoarthritis of both wrists, unspecified osteoarthritis type Primary osteoarthritis of both knees Expected: 07/11/2023 (Approximate), Expires: 01/24/2024 [employer] Comment on above: Expected: 07/11/2023 (Approximate), Expi res: 01/24/2024 Start: 05-17-2023 ambulatory Ambulatory Facility:[facility] [place] Start: 01-23-2023 End: 01-23-2023 Patient encounter procedure 01/23/2023 Office Visit Rheumatology aKvin Kumar, Tra Vasquez, DO [address] [place] [address] [facility] Start: 01-19-2023 End: 07-26-2023 VITAMIN D (25-HYDROXY,TOTAL) VITAMIN D (25-HYDROXY,TOTAL) Lab Routine Psoriatic arthritis 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 Macrocytic anemia Plaque psoriasis Psoriasis SAPHO syndrome History of kidney stones 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) Long-term current use of high risk medication other than anticoagulant 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, custodial, current use Abnormal renal function test Vitamin D deficiency DDD (degenerative disc disease), cervical Impingement syndrome of both shoulders Osteoarthritis of cervical spine, unspecified spinal osteoarthritis complication status Osteoarthritis of both acromioclavicular joints Osteoarthritis of both glenohumeral joints Osteoarthritis of both hands, unspecified osteoarthritis type Osteoarthritis of both hips, unspecified osteoarthritis type Osteoarthritis of both wrists, unspecified osteoarthritis type Primary osteoarthritis of both knees Expected: 01/19/2023 (Approximate), Expires: 07/26/2023 [facility] Comment on above: Expected: 01/19/2023 (Approximate), Expi res: 07/26/2023 Start: 01-19-2023 End: 07-26-2023 VITAMIN D, (1,25 DIHYDROXY) VITAMIN D, (1,25 DIHYDROXY) Lab Routine Psoriatic arthritis 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 Macrocytic anemia Plaque psoriasis Psoriasis SAPHO syndrome History of kidney stones 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 arthritis 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) Long-term current use of high risk medication other than anticoagulant 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, custodial, current use Abnormal renal function test Vitamin D deficiency DDD (degenerative disc disease), cervical Impingement syndrome of both shoulders Osteoarthritis of cervical spine, unspecified spinal osteoarthritis complication status Osteoarthritis of both acromioclavicular joints Osteoarthritis of both glenohumeral joints Osteoarthritis of both hands, unspecified osteoarthritis type Osteoarthritis of both hips, unspecified osteoarthritis type Osteoarthritis of both wrists, unspecified osteoarthritis type Primary osteoarthritis of both knees Expected: 01/19/2023 (Approximate), Expires: 07/26/2023 [facility] Comment on above: Expected: 01/19/2023 (Approximate), Expi res: 07/26/2023 Start: 12-01-2022 COVID-19 VACCINE ( season) COVID-19 VACCINE () [facility] Start: 12-01-2022 Influenza vaccination [facility] Start: 08-10-2022 End: 07-26-2023 Urea nitrogen [Mass/volume] in Serum or Plasma BUN Lab Routine Psoriatic arthritis 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 Macrocytic anemia Plaque psoriasis Psoriasis SAPHO syndrome History of kidney stones 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) Long-term current use of high risk medication other than anticoagulant 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, custodial, current use Abnormal renal function test Vitamin D deficiency DDD (degenerative disc disease), cervical Impingement syndrome of both shoulders Osteoarthritis of cervical spine, unspecified spinal osteoarthritis complication status Osteoarthritis of both acromioclavicular joints Osteoarthritis of both glenohumeral joints Osteoarthritis of both hands, unspecified osteoarthritis type Osteoarthritis of both hips, unspecified osteoarthritis type Osteoarthritis of both wrists, unspecified osteoarthritis type Primary osteoarthritis of both knees Expected: 08/10/2022 (Approximate), Expires: 07/26/2023 [facility] [employer] [facility] Comment on above: Expected: 08/10/2022 (Approximate), Expi res: 07/26/2023 Start: 08-10-2022 End: 07-26-2023 Urinalysis dipstick W Reflex Microscopic panel - Urine URINE MICROSCOPIC Fluids Routine Psoriatic arthritis 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 Macrocytic anemia Plaque psoriasis Psoriasis SAPHO syndrome History of kidney stones 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) Long-term current use of high risk medication other than anticoagulant 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, custodial, current use Abnormal renal function test Vitamin D deficiency DDD (degenerative disc disease), cervical Impingement syndrome of both shoulders Osteoarthritis of cervical spine, unspecified spinal osteoarthritis complication status Osteoarthritis of both acromioclavicular joints Osteoarthritis of both glenohumeral joints Osteoarthritis of both hands, unspecified osteoarthritis type Osteoarthritis of both hips, unspecified osteoarthritis type Osteoarthritis of both wrists, unspecified osteoarthritis type Primary osteoarthritis of both knees Expected: 08/10/2022 (Approximate), Expires: 07/26/2023 [facility] [employer] [facility] Comment on above: Expected: 08/10/2022 (Approximate), Expi res: 07/26/2023 Start: 08-10-2022 End: 07-26-2023 Urinalysis, reagent strip without microscopy URINALYSIS, MACRO Fluids Routine Psoriatic arthritis 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 Macrocytic anemia Plaque psoriasis Psoriasis SAPHO syndrome History of kidney stones 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) Long-term current use of high risk medication other than anticoagulant 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, long term care pharmacist, current use Abnormal renal function test Vitamin D deficiency DDD (degenerative disc disease), cervical Impingement syndrome of both shoulders Osteoarthritis of cervical spine, unspecified spinal osteoarthritis complication status Osteoarthritis of both acromioclavicular joints Osteoarthritis of both glenohumeral joints Osteoarthritis of both hands, unspecified osteoarthritis type Osteoarthritis of both hips, unspecified osteoarthritis type Osteoarthritis of both wrists, unspecified osteoarthritis type Primary osteoarthritis of both knees Expected: 08/10/2022 (Approximate), Expires: 07/26/2023 [facility] Comment on above: Expected: 08/10/2022 (Approximate), Expi res: 07/26/2023 Start: 07-25-2022 End: 07-25-2022 Patient encounter procedure 07/25/2022 Office Visit Rheumatology Tra Vale Jr., DO [address] [place] [id number] [facility] Start: 01-10-2022 End: 01-10-2023 VITAMIN D, (1,25 DIHYDROXY) [facility] Comment on above: Expected: 01/10/2022 (Approximate), Expi res: 01/10/2023 Start: 01-10-2022 End: 01-10-2022 Patient encounter procedure 01/10/2022 Office Visit Rheumatology Tra Vale Jr., DO [address] [place] [phone] [facility] Start: 12-01-2021 Influenza vaccination [facility] Start: 07-12-2021 End: 07-12-2022 VITAMIN D, (1,25 DIHYDROXY) [facility] Comment on above: Expected: 07/12/2021 (Approximate), Expi res: 07/12/2022 Start: 01-11-2021 End: 01-11-2021 Office Visit 01/11/2021 Office Visit Rheumatology Tra Vale Jr., [address] [place] [address] [phone] [facility] Start: 12-01-2020 Influenza vaccination INFLUENZA VACCINE (Season Ended) [facility] Start: 11-02-2020 COVID-19 VACCINE (3 - Booster for Pfizer series) COVID-19 VACCINE (3 - Booster for Pfizer series) [facility] Start: 07-13-2020 End: 07-13-2020 Office Visit 07/13/2020 Office Visit Rheumatology Tra Vale Jr., [address] [place] [phone] [facility] Start: 02-11-2020 End: 09-08-2020 VITAMIN D (25-HYDROXY,TOTAL) VITAMIN D (25-HYDROXY,TOTAL) Lab Routine Psoriatic arthritis 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 Psoriasis SAPHO syndrome 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 arthritis 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, long term care pharmacist, current use Long-term current use of high risk medication other than anticoagulant Vitamin D deficiency Osteoarthritis of cervical spine, unspecified spinal osteoarthritis complication status DDD (degenerative disc disease), cervical Osteoarthritis of both hips, unspecified osteoarthritis type Osteoarthritis of both acromioclavicular joints Osteoarthritis of both glenohumeral joints Impingement syndrome of both shoulders Primary osteoarthritis of both knees Osteoarthritis of both wrists, unspecified osteoarthritis type Osteoarthritis of both hands, unspecified osteoarthritis type Plaque psoriasis Expected: 02/11/2020 (Approximate), Expires: 09/08/2020 [facility] Comment on above: Expected: 02/11/2020 (Approximate), Expi res: 09/08/2020 Start: 02-11-2020 End: 09-08-2020 VITAMIN D, (1,25 DIHYDROXY) VITAMIN D, (1,25 DIHYDROXY) Lab Routine Psoriatic arthritis 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 Psoriasis SAPHO syndrome 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 arthritis care 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, custodial, current use Long-term current use of high risk medication other than anticoagulant Vitamin D deficiency Osteoarthritis of cervical spine, unspecified spinal osteoarthritis complication status DDD (degenerative disc disease), cervical Osteoarthritis of both hips, unspecified osteoarthritis type Osteoarthritis of both acromioclavicular joints Osteoarthritis of both glenohumeral joints Impingement syndrome of both shoulders Primary osteoarthritis of both knees Osteoarthritis of both wrists, unspecified osteoarthritis type Osteoarthritis of both hands, unspecified osteoarthritis type Plaque psoriasis Expected: 02/11/2020 (Approximate), Expires: 09/08/2020 [facility] Comment on above: Expected: 02/11/2020 (Approximate), Expi res: 09/08/2020 Start: 01-13-2020 End: 01-13-2020 Office Visit 01/13/2020 Office Visit Rheumatology Tra Vale Jr., DO [address] [place] [address] [phone] [facility] Start: 12-02-2019 Influenza vaccination [facility] Start: 09-09-2019 End: 09-09-2019 Office Visit 09/09/2019 Office Visit Rheumatology Tra Vale Jr., DO [address] [place] [address] [phone] [facility] Start: 09-04-2019 End: 05-06-2020 VITAMIN D (25-HYDROXY,TOTAL) VITAMIN D (25-HYDROXY,TOTAL) Lab Routine Psoriatic arthritis 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 Anemia, unspecified type 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 Long-term current use of high risk medication other than anticoagulant 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, long term care pharmacist, current use Vitamin D deficiency DDD (degenerative disc disease), cervical Impingement syndrome of both shoulders Osteoarthritis of cervical spine, unspecified spinal osteoarthritis complication status Osteoarthritis of both acromioclavicular joints Osteoarthritis of both glenohumeral joints Osteoarthritis of both hands, unspecified osteoarthritis type Osteoarthritis of both hips, unspecified osteoarthritis type Osteoarthritis of both wrists, unspecified osteoarthritis type Primary osteoarthritis of both knees Plaque psoriasis Psoriasis Expected: 09/04/2019 (Approximate), Expires: 05/06/2020 [employer] [facility] Comment on above: Expected: 09/04/2019 (Approximate), Expi res: 05/06/2020 Start: 09-04-2019 End: 05-06-2020 VITAMIN D, (1,25 DIHYDROXY) VITAMIN D, (1,25 DIHYDROXY) Lab Routine Psoriatic arthritis 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 Anemia, unspecified type 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) care home current use of 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 Long-term current use of high risk medication other than anticoagulant 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, long term care pharmacist, current use Vitamin D deficiency DDD (degenerative disc disease), cervical Impingement syndrome of both shoulders Osteoarthritis of cervical spine, unspecified spinal osteoarthritis complication status Osteoarthritis of both acromioclavicular joints Osteoarthritis of both glenohumeral joints Osteoarthritis of both hands, unspecified osteoarthritis type Osteoarthritis of both hips, unspecified osteoarthritis type Osteoarthritis of both wrists, unspecified osteoarthritis type Primary osteoarthritis of both knees Plaque psoriasis Psoriasis Expected: 09/04/2019 (Approximate), Expires: 05/06/2020 [employer] [facility] Comment on above: Expected: 09/04/2019 (Approximate), Expi res: 05/06/2020 Start: 05-06-2019 End: 05-06-2019 Office Visit 05/06/2019 Office Visit Rheumatology Kavin Kumar, Tra Vasquez, DO [address] [place] [address] [facility] Start: 03-29-2019 End: 03-29-2019 JOVAN MULTIPLEX SCRN WITH REFLEX JOVAN MULTIPLEX SCRN WITH REFLEX Routine Psoriatic arthritis 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 Psoriasis Fatigue, unspecified type 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 arthritis care 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) care home current use of 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, long term care pharmacist, current use Long-term current use of high risk medication other than anticoagulant Lumbosacral spondylosis without myelopathy Disorder of bone and cartilage Plaque psoriasis Cervicalgia Dorsalgia Chronic pain of both shoulders Bilateral elbow joint pain Bilateral wrist pain Bilateral hand pain Chronic pain of both knees Expected: 03/29/2019 (Approximate), Expires: 03/29/2019 [facility] Work Phone: Comment on above: Expected: 03/29/2019 (Approximate), Expi res: 03/29/2019 Start: 03-29-2019 End: 03-29-2019 ANCA INIT SCRN (ANCA, PR3AB, MPO) ANCA INIT SCRN (ANCA, PR3AB, MPO) Routine Psoriatic arthritis 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 Psoriasis Fatigue, unspecified type 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, long term care pharmacist, current use Long-term current use of high risk medication other than anticoagulant Lumbosacral spondylosis without myelopathy Disorder of bone and cartilage Plaque psoriasis Cervicalgia Dorsalgia Chronic pain of both shoulders Bilateral elbow joint pain Bilateral wrist pain Bilateral hand pain Chronic pain of both knees Expected: 03/29/2019 (Approximate), Expires: 03/29/2019 [facility] Work Phone: Comment on above: Expected: 03/29/2019 (Approximate), Expi res: 03/29/2019 Start: 03-29-2019 End: 03-29-2019 ANGIOTENSIN CONVERTING ENZYME ANGIOTENSIN CONVERTING ENZYME Routine Psoriatic arthritis 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 Psoriasis Fatigue, unspecified type 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 arthritis care 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) care home current use of 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, custodial, current use Long-term current use of high risk medication other than anticoagulant Lumbosacral spondylosis without myelopathy Disorder of bone and cartilage Plaque psoriasis Cervicalgia Dorsalgia Chronic pain of both shoulders Bilateral elbow joint pain Bilateral wrist pain Bilateral hand pain Chronic pain of both knees Expected: 03/29/2019 (Approximate), Expires: 03/29/2019 [facility] Work Phone: Comment on above: Expected: 03/29/2019 (Approximate), Expi res: 03/29/2019 Start: 03-29-2019 End: 03-29-2019 CBC,PLATELETS CBC,PLATELETS Routine Psoria tic arthritis 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 Psoriasis Fatigue, unspecified type 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) care home current use of 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, long term care pharmacist, current use Long-term current use of high risk medication other than anticoagulant Lumbosacral spondylosis without myelopathy Disorder of bone and cartilage Plaque psoriasis Cervicalgia Dorsalgia Chronic pain of both shoulders Bilateral elbow joint pain Bilateral wrist pain Bilateral hand pain Chronic pain of both knees Expected: 03/29/2019 (Approximate), Expires: 03/29/2019 [facility] Work Phone: Comment on above: Expected: 03/29/2019 (Approximate), Expi res: 03/29/2019 Start: 03-29-2019 End: 03-29-2019 CK CK Routine Psoriatic arthrit is 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 Psoriasis Fatigue, unspecified type 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 arthritis care 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) 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, long term care pharmacist, current use Long-term current use of high risk medication other than anticoagulant Lumbosacral spondylosis without myelopathy Disorder of bone and cartilage Plaque psoriasis Cervicalgia Dorsalgia Chronic pain of both shoulders Bilateral elbow joint pain Bilateral wrist pain Bilateral hand pain Chronic pain of both knees Expected: 03/29/2019 (Approximate), Expires: 03/29/2019 [facility] Work Phone: Comment on above: Expected: 03/29/2019 (Approximate), Expi res: 03/29/2019 Start: 03-29-2019 End: 03-29-2019 Comprehensive metabolic 2000 panel - Serum or Plasma COMPREHENSIVE METABOLIC PANEL Routine Psoriatic arthritis 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 Psoriasis Fatigue, unspecified type 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, long term care pharmacist, current use Long-term current use of high risk medication other than anticoagulant Lumbosacral spondylosis without myelopathy Disorder of bone and cartilage Plaque psoriasis Cervicalgia Dorsalgia Chronic pain of both shoulders Bilateral elbow joint pain Bilateral wrist pain Bilateral hand pain Chronic pain of both knees Expected: 03/29/2019 (Approximate), Expires: 03/29/2019 [facility] Work Phone: Comment on above: Expected: 03/29/2019 (Approximate), Expi res: 03/29/2019 Start: 03-29-2019 End: 03-29-2019 CRP mass conc C REACTIVE PROTEIN Routine Psoriatic arthritis 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 Psoriasis Fatigue, unspecified type 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 arthritis care 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) care home current use of 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, long term care pharmacist, current use Long-term current use of high risk medication other than anticoagulant Lumbosacral spondylosis without myelopathy Disorder of bone and cartilage Plaque psoriasis Cervicalgia Dorsalgia Chronic pain of both shoulders Bilateral elbow joint pain Bilateral wrist pain Bilateral hand pain Chronic pain of both knees Expected: 03/29/2019 (Approximate), Expires: 03/29/2019 [facility] Work Phone: Comment on above: Expected: 03/29/2019 (Approximate), Expi res: 03/29/2019 Start: 03-29-2019 End: 03-29-2019 CYCLIC CITRULLINATE PEPTIDE AB CYCLIC CITRULLINATE PEPTIDE AB Routine Psoriatic arthritis 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 Psoriasis Fatigue, unspecified type 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 arthritis care 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) care home current use of 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, custodial, current use Long-term current use of high risk medication other than anticoagulant Lumbosacral spondylosis without myelopathy Disorder of bone and cartilage Plaque psoriasis Cervicalgia Dorsalgia Chronic pain of both shoulders Bilateral elbow joint pain Bilateral wrist pain Bilateral hand pain Chronic pain of both knees Expected: 03/29/2019 (Approximate), Expires: 03/29/2019 [facility] Work Phone: Comment on above: Expected: 03/29/2019 (Approximate), Expi res: 03/29/2019 Start: 03-29-2019 End: 03-29-2019 HEPATITIS A, B, C HEPATITIS A, B, C Routine Psoriatic arthritis 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 Psoriasis Fatigue, unspecified type 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 arthritis care 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) 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, custodial, current use Long-term current use of high risk medication other than anticoagulant Lumbosacral spondylosis without myelopathy Disorder of bone and cartilage Plaque psoriasis Cervicalgia Dorsalgia Chronic pain of both shoulders Bilateral elbow joint pain Bilateral wrist pain Bilateral hand pain Chronic pain of both knees Expected: 03/29/2019 (Approximate), Expires: 03/29/2019 [facility] Work Phone: Comment on above: Expected: 03/29/2019 (Approximate), Expi res: 03/29/2019 Start: 03-29-2019 End: 03-29-2019 HLA-B27 HLA-B27 Routine Psoriatic arthritis 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 Psoriasis Fatigue, unspecified type 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, long term care pharmacist, current use Long-term current use of high risk medication other than anticoagulant Lumbosacral spondylosis without myelopathy Disorder of bone and cartilage Plaque psoriasis Cervicalgia Dorsalgia Chronic pain of both shoulders Bilateral elbow joint pain Bilateral wrist pain Bilateral hand pain Chronic pain of both knees Expected: 03/29/2019 (Approximate), Expires: 03/29/2019 [facility] Work Phone: Comment on above: Expected: 03/29/2019 (Approximate), Expi res: 03/29/2019 Start: 03-29-2019 End: 03-29-2019 PATRICK AND PE, SERUM PATRICK AND PE, SERUM Routine Psoriatic arthritis 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 Psoriasis Fatigue, unspecified type 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 arthritis care 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) care home current use of 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, custodial, current use Long-term current use of high risk medication other than anticoagulant Lumbosacral spondylosis without myelopathy Disorder of bone and cartilage Plaque psoriasis Cervicalgia Dorsalgia Chronic pain of both shoulders Bilateral elbow joint pain Bilateral wrist pain Bilateral hand pain Chronic pain of both knees Expected: 03/29/2019 (Approximate), Expires: 03/29/2019 [facility] Work Phone: Comment on above: Expected: 03/29/2019 (Approximate), Expi res: 03/29/2019 Start: 03-29-2019 End: 03-29-2019 MAGNESIUM MAGNESIUM Routine Psoriatic arthritis 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 Psoriasis Fatigue, unspecified type 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 arthritis care 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) 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, long term care pharmacist, current use Long-term current use of high risk medication other than anticoagulant Lumbosacral spondylosis without myelopathy Disorder of bone and cartilage Plaque psoriasis Cervicalgia Dorsalgia Chronic pain of both shoulders Bilateral elbow joint pain Bilateral wrist pain Bilateral hand pain Chronic pain of both knees Expected: 03/29/2019 (Approximate), Expires: 03/29/2019 [facility] Work Phone: Comment on above: Expected: 03/29/2019 (Approximate), Expi res: 03/29/2019 Start: 03-29-2019 End: 03-29-2019 RHEUMATOID FACTOR RHEUMATOID FACTOR Routine Psoriatic arthritis 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 Psoriasis Fatigue, unspecified type 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, long term care pharmacist, current use Long-term current use of high risk medication other than anticoagulant Lumbosacral spondylosis without myelopathy Disorder of bone and cartilage Plaque psoriasis Cervicalgia Dorsalgia Chronic pain of both shoulders Bilateral elbow joint pain Bilateral wrist pain Bilateral hand pain Chronic pain of both knees Expected: 03/29/2019 (Approximate), Expires: 03/29/2019 [facility] Work Phone: Comment on above: Expected: 03/29/2019 (Approximate), Expi res: 03/29/2019 Start: 03-29-2019 End: 03-29-2019 SEDIMENTATION RATE, AUTOMATED SEDIMENTATION RATE, AUTOMATED Routine Psoriatic arthritis 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 Psoriasis Fatigue, unspecified type 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, custodial, current use Long-term current use of high risk medication other than anticoagulant Lumbosacral spondylosis without myelopathy Disorder of bone and cartilage Plaque psoriasis Cervicalgia Dorsalgia Chronic pain of both shoulders Bilateral elbow joint pain Bilateral wrist pain Bilateral hand pain Chronic pain of both knees Expected: 03/29/2019 (Approximate), Expires: 03/29/2019 [facility] Work Phone: Comment on above: Expected: 03/29/2019 (Approximate), Expi res: 03/29/2019 Start: 03-29-2019 End: 03-29-2019 T-TRANSGLUTAMINASE IGA AB T-TRANSGLUTAMINASE IGA AB Routine Psoriatic arthritis 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 Psoriasis Fatigue, unspecified type 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 arthritis care 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) care home current use of 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, custodial, current use Long-term current use of high risk medication other than anticoagulant Lumbosacral spondylosis without myelopathy Disorder of bone and cartilage Plaque psoriasis Cervicalgia Dorsalgia Chronic pain of both shoulders Bilateral elbow joint pain Bilateral wrist pain Bilateral hand pain Chronic pain of both knees Expected: 03/29/2019 (Approximate), Expires: 03/29/2019 [facility] Work Phone: Comment on above: Expected: 03/29/2019 (Approximate), Expi res: 03/29/2019 Start: 03-29-2019 End: 03-29-2019 TESTOSTERONE TESTOSTERONE Routine Psoriat ic arthritis 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 Psoriasis Fatigue, unspecified type 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) care home current use of 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, long term care pharmacist, current use Long-term current use of high risk medication other than anticoagulant Lumbosacral spondylosis without myelopathy Disorder of bone and cartilage Plaque psoriasis Cervicalgia Dorsalgia Chronic pain of both shoulders Bilateral elbow joint pain Bilateral wrist pain Bilateral hand pain Chronic pain of both knees Expected: 03/29/2019 (Approximate), Expires: 03/29/2019 [facility] Work Phone: Comment on above: Expected: 03/29/2019 (Approximate), Expi res: 03/29/2019 Start: 03-29-2019 End: 03-29-2019 Thyrotropin Qn TSH Routine Psoriatic arthri tis 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 Psoriasis Fatigue, unspecified type 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) care home current use of 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, custodial, current use Long-term current use of high risk medication other than anticoagulant Lumbosacral spondylosis without myelopathy Disorder of bone and cartilage Plaque psoriasis Cervicalgia Dorsalgia Chronic pain of both shoulders Bilateral elbow joint pain Bilateral wrist pain Bilateral hand pain Chronic pain of both knees Expected: 03/29/2019 (Approximate), Expires: 03/29/2019 [facility] Work Phone: Comment on above: Expected: 03/29/2019 (Approximate), Expi res: 03/29/2019 Start: 03-29-2019 End: 03-29-2019 Urate mass conc URIC ACID Routine Psoriatic arthritis 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 Psoriasis Fatigue, unspecified type 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 arthritis care 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) care home current use of 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, long term care pharmacist, current use Long-term current use of high risk medication other than anticoagulant Lumbosacral spondylosis without myelopathy Disorder of bone and cartilage Plaque psoriasis Cervicalgia Dorsalgia Chronic pain of both shoulders Bilateral elbow joint pain Bilateral wrist pain Bilateral hand pain Chronic pain of both knees Expected: 03/29/2019 (Approximate), Expires: 03/29/2019 [facility] Work Phone: Comment on above: Expected: 03/29/2019 (Approximate), Expi res: 03/29/2019 Start: 03-29-2019 End: 03-29-2019 VITAMIN D (25-HYDROXY,TOTAL) VITAMIN D (25-HYDROXY,TOTAL) Routine Psoriatic arthritis 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 Psoriasis Fatigue, unspecified type 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) care home current use of 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, custodial, current use Long-term current use of high risk medication other than anticoagulant Lumbosacral spondylosis without myelopathy Disorder of bone and cartilage Plaque psoriasis Cervicalgia Dorsalgia Chronic pain of both shoulders Bilateral elbow joint pain Bilateral wrist pain Bilateral hand pain Chronic pain of both knees Expected: 03/29/2019 (Approximate), Expires: 03/29/2019 [facility] Work Phone: Comment on above: Expected: 03/29/2019 (Approximate), Expi res: 03/29/2019 Start: 03-29-2019 End: 03-29-2019 VITAMIN D, (1,25 DIHYDROXY) VITAMIN D, (1,25 DIHYDROXY) Routine Psoriatic arthritis 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 Psoriasis Fatigue, unspecified type 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, long term care pharmacist, current use Long-term current use of high risk medication other than anticoagulant Lumbosacral spondylosis without myelopathy Disorder of bone and cartilage Plaque psoriasis Cervicalgia Dorsalgia Chronic pain of both shoulders Bilateral elbow joint pain Bilateral wrist pain Bilateral hand pain Chronic pain of both knees Expected: 03/29/2019 (Approximate), Expires: 03/29/2019 [facility] Work Phone: Comment on above: Expected: 03/29/2019 (Approximate), Expi res: 03/29/2019 Start: 01-07-2019 End: 01-07-2019 Office Visit Aldo [facility] Start: 12-04-2018 End: 09-04-2019 VITAMIN D (25-HYDROXY,TOTAL) VITAMIN D (25-HYDROXY,TOTAL) Lab Routine Vitamin D deficiency Expected: 12/04/2018 (Approximate), Expires: 09/04/2019 [facility] Comment on above: Expected: 12/04/2018 (Approximate), Expi res: 09/04/2019 Start: 12-04-2018 End: 09-04-2019 VITAMIN D, (1,25 DIHYDROXY) VITAMIN D, (1,25 DIHYDROXY) Lab Routine Vitamin D deficiency Expected: 12/04/2018 (Approximate), Expires: 09/04/2019 [facility] Comment on above: Expected: 12/04/2018 (Approximate), Expi res: 09/04/2019 Start: 12-01-2018 Influenza vaccination [facility] Start: 09-06-2018 End: 09-06-2018 Ambulatory 09/06/2018 Office Visit Rheumatology Kavin Kumar, Tra Vasquez, DO [address] [place] [address] [phone] [facility] Start: 09-03-2018 End: 09-04-2019 VITAMIN D (25-HYDROXY,TOTAL) [facility] Comment on above: Expected: 09/03/2018 (Approximate), Expi res: 09/04/2019 Expected: 09/03/2018 , Expires: 09/03/2019 Start: 09-03-2018 End: 09-04-2019 VITAMIN D, (1,25 DIHYDROXY) [facility] Comment on above: Expected: 09/03/2018 (Approximate), Expi res: 09/04/2019 Expected: 09/03/2018 , Expires: 09/03/2019 Start: 06-30-2018 End: 04-01-2019 VITAMIN D (25-HYDROXY,TOTAL) VITAMIN D (25-HYDROXY,TOTAL) Routine Vitamin D deficiency Expected: 06/30/2018 (Approximate), Expires: 04/01/2019 [facility] Work Phone: Comment on above: Expected: 06/30/2018 (Approximate), Expi res: 04/01/2019 Start: 06-30-2018 End: 04-01-2019 VITAMIN D, (1,25 DIHYDROXY) VITAMIN D, (1,25 DIHYDROXY) Routine Vitamin D deficiency Expected: 06/30/2018 (Approximate), Expires: 04/01/2019 [facility] Work Phone: Comment on above: Expected: 06/30/2018 (Approximate), Expi res: 04/01/2019 Start: 05-09-2018 End: 05-09-2018 Ambulatory 05/09/2018 Office Visit Rheumatology Tra Vale Jr., DO [address] [place] [address] [phone] [facility] Start: 05-03-2018 End: 05-03-2018 Ambulatory 05/03/2018 Office Visit Rheumatology Tra Vale Jr., [address] [place] [address] [phone] [facility] Start: 03-29-2018 End: 03-29-2019 Diagnostic radiography of lumbar spine XR SPINE LUMBOSACRAL 5 VIEWS Routine Psoriatic arthritis 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 Psoriasis Fatigue, unspecified type 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) care home current use of 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, custodial, current use Long-term current use of high risk medication other than anticoagulant Lumbosacral spondylosis without myelopathy Disorder of bone and cartilage Plaque psoriasis Cervicalgia Dorsalgia Chronic pain of both shoulders Bilateral elbow joint pain Bilateral wrist pain Bilateral hand pain Chronic pain of both knees Expected: 03/29/2018, Expires: 03/29/2019 [facility] Work Phone: Comment on above: Expected: 03/29/2018, Expires: 9 Start: 03-29-2018 End: 03-29-2019 Diagnostic radiography of sacroiliac joints XR SACROILIAC JOINTS MIN 3 VIEWS Routine Psoriatic arthritis 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 Psoriasis Fatigue, unspecified type 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, long term care pharmacist, current use Long-term current use of high risk medication other than anticoagulant Lumbosacral spondylosis without myelopathy Disorder of bone and cartilage Plaque psoriasis Cervicalgia Dorsalgia Chronic pain of both shoulders Bilateral elbow joint pain Bilateral wrist pain Bilateral hand pain Chronic pain of both knees Expected: 03/29/2018, Expires: 03/29/2019 [facility] Work Phone: Comment on above: Expected: 03/29/2018, Expires: 9 Start: 03-29-2018 End: 03-29-2019 M TUBERCULOSIS BY QUANTIFERON, BLD M TUBERCULOSIS BY QUANTIFERON, BLD Routine Psoriatic arthritis 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 Psoriasis Fatigue, unspecified type 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) care home current use of 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, long term care pharmacist, current use Long-term current use of high risk medication other than anticoagulant Lumbosacral spondylosis without myelopathy Disorder of bone and cartilage Plaque psoriasis Cervicalgia Dorsalgia Chronic pain of both shoulders Bilateral elbow joint pain Bilateral wrist pain Bilateral hand pain Chronic pain of both knees Expected: 03/29/2018 (Approximate), Expires: 03/29/2019 [facility] Work Phone: Comment on above: Expected: 03/29/2018 (Approximate), Expi res: 03/29/2019 Start: 03-29-2018 End: 03-29-2019 Radiography of cervical spine XR SPINE CERVICAL WITH OBL AND FLEX/EXT Routine Psoriatic arthritis 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 Psoriasis Fatigue, unspecified type 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) care home current use of 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, custodial, current use Long-term current use of high risk medication other than anticoagulant Lumbosacral spondylosis without myelopathy Disorder of bone and cartilage Plaque psoriasis Cervicalgia Dorsalgia Chronic pain of both shoulders Bilateral elbow joint pain Bilateral wrist pain Bilateral hand pain Chronic pain of both knees Expected: 03/29/2018, Expires: 03/29/2019 [facility] Work Phone: Comment on above: Expected: 03/29/2018, Expires: 9 Start: 03-29-2018 End: 03-29-2019 Radiography of hand XR HANDS-RHEUMATOLOGY EVAL O NLY Routine Psoriatic arthritis 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 Psoriasis Fatigue, unspecified type 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 arthritis care 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) 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, custodial, current use Long-term current use of high risk medication other than anticoagulant Lumbosacral spondylosis without myelopathy Disorder of bone and cartilage Plaque psoriasis Cervicalgia Dorsalgia Chronic pain of both shoulders Bilateral elbow joint pain Bilateral wrist pain Bilateral hand pain Chronic pain of both knees Expected: 03/29/2018, Expires: 03/29/2019 [facility] Work Phone: Comment on above: Expected: 03/29/2018, Expires: 9 Start: 03-29-2018 End: 03-29-2019 Radiography of shoulder [facility] Work Phone: Comment on above: Expected: 03/29/2018, Expires: Start: 03-29-2018 End: 03-29-2019 Radiography of wrist [facility] Work Phone: Comment on above: Expected: 03/29/2018, Expires: 9 Start: 03-29-2018 End: 03-29-2019 Radiologic examination of knee [facility] Work Phone: Comment on above: Expected: 03/29/2018, Expires: 9 Start: 03-29-2018 End: 03-29-2019 X-ray of both knees XR KNEES BILATERAL STANDING 1 VIEW Routine Psoriatic arthritis 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 Psoriasis Fatigue, unspecified type 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, long term care pharmacist, current use Long-term current use of high risk medication other than anticoagulant Lumbosacral spondylosis without myelopathy Disorder of bone and cartilage Plaque psoriasis Cervicalgia Dorsalgia Chronic pain of both shoulders Bilateral elbow joint pain Bilateral wrist pain Bilateral hand pain Chronic pain of both knees Expected: 03/29/2018, Expires: 03/29/2019 [facility] Work Phone: Comment on above: Expected: 03/29/2018, Expires: 9 Start: 12-01-2017 Influenza vaccination INFLUENZA VACCINE (#1) [facility] Work Phone: Start: 2016 Colonoscopy [facility] Work Phone: Start: 2016 Prostate specific antigen measurement PROSTATE CANCER SCREENING DISCUSSION [facility] Start: 2016 Protein mass conc COLON CANCER SCREENING DISCUSSION [facility] Work Phone: Start: 2016 Zoster vaccine hzv live for subcutaneous use ZOSTER (SHINGLES) VACCINE (1 of 2) [facility] Start: 2011 Colonoscopy COLORECTAL CANCER SCREENING DISCUSSION [facility] Start: 2011 Screening for malignant neoplasm of colon COLORECTAL CANCER SCREENING DISCUSSION [facility] Start: 2006 Fasting lipid profile LIPID SCREENING [facility] Start: 2006 Lipid panel LIPID SCREENING [facility] Start: 1985 Third diphtheria, tetanus and acellular pertussis (DTaP) vaccination TDAP (ADULT) [facility] Start: 1984 Tetanus vaccination TETANUS [facility] Start: 1982 COVID-19 VACCINE (1) COVID-19 VACCINE (1) [facility] Start: 1981 HIV screening HIV SCREENING DISCUSSION [facility] Start: 1979 HIV screening HIV SCREENING DISCUSSION [facility] Work Phone: Start: 1971 COVID-19 VACCINE (1) COVID-19 VACCINE (1) [facility] Start: 1966 COVID-19 VACCINE (#1) COVID-19 VACCINE (#1) [facility] Start: 1966 Finding of potassium level (finding) POTASSIUM [facility] Start: 1966 Hepatitis B vaccination HEP B VACCINE (1 of 3 - 3-dose series) [facility] Start: 1966 Hepatitis C antibody, confirmatory test HEPATITIS C VIRUS SCREENING [facility] Start: 1966 Hepatitis C screening HEPATITIS C VIRUS SCREENING [facility] End: 07-12-2022 Alanine aminotransferase [Enzymatic activity/volume] in Serum or Plasma ALT Lab Routine Psoriatic arthritis Psoriatic spondylitis Psoriasis Plaque psoriasis Anemia, unspecified type 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, custodial, current use Long-term current use of high risk medication other than 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) 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 arthritis Vitamin D deficiency Primary osteoarthritis of both knees Osteoarthritis of both wrists, unspecified osteoarthritis type Osteoarthritis of both hips, unspecified osteoarthritis type Osteoarthritis of both hands, unspecified osteoarthritis type Osteoarthritis of both glenohumeral joints Osteoarthritis of both acromioclavicular joints Osteoarthritis of cervical spine, unspecified spinal osteoarthritis complication status Impingement syndrome of both shoulders DDD (degenerative disc disease), cervical 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 Hyperchromic anemia Every 8 Weeks for 6 Occurrences starting 07/12/2021 until 07/12/2022, 1 completed [facility] Comment on above: Every 8 Weeks for 6 Occurrences starting 07/12/2021 until 07/12/2022, 1 completed End: 01-10-2023 Alanine aminotransferase [Enzymatic activity/volume] in Serum or Plasma ALT Lab Routine Psoriatic arthritis 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 Plaque psoriasis Psoriasis SAPHO syndrome 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) Long-term current use of high risk medication other than anticoagulant 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, long term care pharmacist, current use Every 8 Weeks for 6 Occurrences starting 01/10/2022 until 01/10/2023 [facility] Comment on above: Every 8 Weeks for 6 Occurrences starting 01/10/2022 until 01/10/2023 End: 07-26-2023 Alanine aminotransferase [Enzymatic activity/volume] in Serum or Plasma ALT Lab Routine Psoriatic arthritis 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 Macrocytic anemia Plaque psoriasis Psoriasis SAPHO syndrome History of kidney stones 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) Long-term current use of high risk medication other than anticoagulant 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, custodial, current use Abnormal renal function test Vitamin D deficiency DDD (degenerative disc disease), cervical Impingement syndrome of both shoulders Osteoarthritis of cervical spine, unspecified spinal osteoarthritis complication status Osteoarthritis of both acromioclavicular joints Osteoarthritis of both glenohumeral joints Osteoarthritis of both hands, unspecified osteoarthritis type Osteoarthritis of both hips, unspecified osteoarthritis type Osteoarthritis of both wrists, unspecified osteoarthritis type Primary osteoarthritis of both knees Every 12 Weeks for 4 Occurrences starting 07/25/2022 until 07/26/2023 [employer] Comment on above: Every 12 Weeks for 4 Occurrences startin g 07/25/2022 until 07/26/2023 End: 01-24-2024 Alanine aminotransferase [Enzymatic activity/volume] in Serum or Plasma ALT Lab Routine Psoriatic arthritis 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 Plaque psoriasis Psoriasis SAPHO syndrome History of kidney stones 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 arthritis Long-term current use of high risk medication other than anticoagulant 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, long term care pharmacist, current use Vitamin D deficiency DDD (degenerative disc disease), cervical Impingement syndrome of both shoulders Osteoarthritis of cervical spine, unspecified spinal osteoarthritis complication status Osteoarthritis of both acromioclavicular joints Osteoarthritis of both glenohumeral joints Osteoarthritis of both hands, unspecified osteoarthritis type Osteoarthritis of both hips, unspecified osteoarthritis type Osteoarthritis of both wrists, unspecified osteoarthritis type Primary osteoarthritis of both knees Every 12 Weeks for 4 Occurrences starting 01/23/2023 until 01/24/2024 [employer] Comment on above: Every 12 Weeks for 4 Occurrences startin g 01/23/2023 until 01/24/2024 End: 09-08-2020 ALT [Catalytic activity/Vol] ALT Lab Routine Psoriatic arthritis 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 Psoriasis SAPHO syndrome 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 arthritis care 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, long term care pharmacist, current use Long-term current use of high risk medication other than anticoagulant Vitamin D deficiency Osteoarthritis of cervical spine, unspecified spinal osteoarthritis complication status DDD (degenerative disc disease), cervical Osteoarthritis of both hips, unspecified osteoarthritis type Osteoarthritis of both acromioclavicular joints Osteoarthritis of both glenohumeral joints Impingement syndrome of both shoulders Primary osteoarthritis of both knees Osteoarthritis of both wrists, unspecified osteoarthritis type Osteoarthritis of both hands, unspecified osteoarthritis type Plaque psoriasis 6 Occurrences starting 10/11/2019 until 09/08/2020 [employer] Comment on above: 6 Occurrences starting 10/11/2019 until 09/08/2020 End: 01-12-2021 ALT [Catalytic activity/Vol] ALT Lab Routine Psoriatic arthritis Psoriasis Plaque psoriasis 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, custodial, current use Long-term current use of high risk medication other than anticoagulant care 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) 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 arthritis Abnormal renal function test Vitamin D deficiency Primary osteoarthritis of both knees Osteoarthritis of both wrists, unspecified osteoarthritis type Osteoarthritis of both hips, unspecified osteoarthritis type Osteoarthritis of both hands, unspecified osteoarthritis type Osteoarthritis of both glenohumeral joints Osteoarthritis of both acromioclavicular joints Osteoarthritis of cervical spine, unspecified spinal osteoarthritis complication status Impingement syndrome of both shoulders DDD (degenerative disc disease), cervical 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 6 Occurrences starting 01/13/2020 until 01/12/2021, 1 completed [employer] Comment on above: 6 Occurrences starting 01/13/2020 until 01/12/2021, 1 completed End: 01-08-2020 ALT [Catalytic activity/Vol] ALT Lab Routine Psoriatic arthritis Psoriatic spondylitis Psoriasis Plaque psoriasis Anemia, unspecified type 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, long term care pharmacist, current use Long-term current use of high risk medication other than anticoagulant care home current use of 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) 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 arthritis Vitamin D deficiency Primary osteoarthritis of both knees Osteoarthritis of both wrists, unspecified osteoarthritis type Osteoarthritis of both hips, unspecified osteoarthritis type Osteoarthritis of both hands, unspecified osteoarthritis type Osteoarthritis of both glenohumeral joints Osteoarthritis of both acromioclavicular joints Osteoarthritis of cervical spine, unspecified spinal osteoarthritis complication status Impingement syndrome of both shoulders DDD (degenerative disc disease), cervical 6 Occurrences starting 01/04/2019 until 01/08/2020 [employer] Comment on above: 6 Occurrences starting 01/04/2019 until 01/08/2020 End: 07-13-2021 ALT [Catalytic activity/Vol] ALT Lab Routine Psoriatic arthritis 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 Psoriasis SAPHO syndrome 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, long term care pharmacist, current use Long-term current use of high risk medication other than anticoagulant Vitamin D deficiency Osteoarthritis of cervical spine, unspecified spinal osteoarthritis complication status DDD (degenerative disc disease), cervical Osteoarthritis of both hips, unspecified osteoarthritis type Osteoarthritis of both acromioclavicular joints Osteoarthritis of both glenohumeral joints Impingement syndrome of both shoulders Primary osteoarthritis of both knees Osteoarthritis of both wrists, unspecified osteoarthritis type Osteoarthritis of both hands, unspecified osteoarthritis type Plaque psoriasis 6 Occurrences starting 09/12/2020 until 07/13/2021, 1 completed [employer] [facility] Comment on above: 6 Occurrences starting 09/12/2020 until 07/13/2021, 1 completed End: 05-03-2019 ALT enzyme act/vol ALT Routine Psoriatic arthri tis 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 Psoriasis Anemia, unspecified type 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) care home current use of 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, custodial, current use Long-term current use of high risk medication other than anticoagulant Vitamin D deficiency Lumbosacral spondylosis without myelopathy Osteoarthritis of cervical spine, unspecified spinal osteoarthritis complication status DDD (degenerative disc disease), cervical Osteoarthritis of both hips, unspecified osteoarthritis type Osteoarthritis of both acromioclavicular joints Osteoarthritis of both glenohumeral joints Impingement syndrome of both shoulders Primary osteoarthritis of both knees Osteoarthritis of both wrists, unspecified osteoarthritis type Osteoarthritis of both hands, unspecified osteoarthritis type Plaque psoriasis 6 Occurrences starting 05/30/2018 until 05/03/2019 [facility] Work Phone: Comment on above: 6 Occurrences starting 05/30/2018 until 05/03/2019 End: 09-04-2019 ALT enzyme act/vol ALTLabRoutinePsoriatic arthritis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Psoriatic spondylitis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 arthritisLong term 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)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Long-term current use of high risk medication other than anticoagulant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, long term care pharmacist, current useNoncompliancePatient non adherenceVitamin D deficiencyDDD (degenerative disc disease), cervicalImpingement syndrome of both shouldersLumbosacral spondylosis without myelopathyOsteoarthritis of cervical spine, unspecified spinal osteoarthritis complication statusOsteoarthritis of both acromioclavicular jointsOsteoarthritis of both glenohumeral jointsOsteoarthritis of both hands, unspecified osteoarthritis typeOsteoarthritis of both hips, unspecified osteoarthritis typeOsteoarthritis of both wrists, unspecified osteoarthritis typePrimary osteoarthritis of both kneesPlaque psoriasisPsoriasis6 Occurrences starting 11/03/2018 until (more content not included)... 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) 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 arthritis Vitamin D deficiency Primary osteoarthritis of both knees Osteoarthritis of both wrists, unspecified osteoarthritis type Osteoarthritis of both hips, unspecified osteoarthritis type Osteoarthritis of both hands, unspecified osteoarthritis type Osteoarthritis of both glenohumeral joints Osteoarthritis of both acromioclavicular joints Osteoarthritis of cervical spine, unspecified spinal osteoarthritis complication status Impingement syndrome of both shoulders DDD (degenerative disc disease), cervical 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 Hyperchromic anemia Every 8 Weeks for 6 Occurrences starting 07/12/2021 until 07/12/2022, 1 completed [employer] Comment on above: Every 8 Weeks for 6 Occurrences starting 07/12/2021 until 07/12/2022, 1 completed End: 01-10-2023 Aspartate aminotransferase [Enzymatic activity/volume] in Serum or Plasma AST Lab Routine Psoriatic arthritis 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 Plaque psoriasis Psoriasis SAPHO syndrome 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 arthritis care 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) Long-term current use of high risk medication other than anticoagulant 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, custodial, current use Every 8 Weeks for 6 Occurrences starting 01/10/2022 until 01/10/2023 [employer] Comment on above: Every 8 Weeks for 6 Occurrences starting 01/10/2022 until 01/10/2023 End: 07-26-2023 Aspartate aminotransferase [Enzymatic activity/volume] in Serum or Plasma AST Lab Routine Psoriatic arthritis 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 Macrocytic anemia Plaque psoriasis Psoriasis SAPHO syndrome History of kidney stones 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) Long-term current use of high risk medication other than anticoagulant 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, custodial, current use Abnormal renal function test Vitamin D deficiency DDD (degenerative disc disease), cervical Impingement syndrome of both shoulders Osteoarthritis of cervical spine, unspecified spinal osteoarthritis complication status Osteoarthritis of both acromioclavicular joints Osteoarthritis of both glenohumeral joints Osteoarthritis of both hands, unspecified osteoarthritis type Osteoarthritis of both hips, unspecified osteoarthritis type Osteoarthritis of both wrists, unspecified osteoarthritis type Primary osteoarthritis of both knees Every 12 Weeks for 4 Occurrences starting 07/25/2022 until 07/26/2023 [employer] Comment on above: Every 12 Weeks for 4 Occurrences startin g 07/25/2022 until 07/26/2023 End: 01-24-2024 Aspartate aminotransferase [Enzymatic activity/volume] in Serum or Plasma AST Lab Routine Psoriatic arthritis 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 Plaque psoriasis Psoriasis SAPHO syndrome History of kidney stones 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 arthritis Long-term current use of high risk medication other than anticoagulant 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, custodial, current use Vitamin D deficiency DDD (degenerative disc disease), cervical Impingement syndrome of both shoulders Osteoarthritis of cervical spine, unspecified spinal osteoarthritis complication status Osteoarthritis of both acromioclavicular joints Osteoarthritis of both glenohumeral joints Osteoarthritis of both hands, unspecified osteoarthritis type Osteoarthritis of both hips, unspecified osteoarthritis type Osteoarthritis of both wrists, unspecified osteoarthritis type Primary osteoarthritis of both knees Every 12 Weeks for 4 Occurrences starting 01/23/2023 until 01/24/2024 [employer] Comment on above: Every 12 Weeks for 4 Occurrences startin g 01/23/2023 until 01/24/2024 End: 09-08-2020 AST [Catalytic activity/Vol] AST Lab Routine Psoriatic arthritis 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 Psoriasis SAPHO syndrome 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 arthritis care 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, custodial, current use Long-term current use of high risk medication other than anticoagulant Vitamin D deficiency Osteoarthritis of cervical spine, unspecified spinal osteoarthritis complication status DDD (degenerative disc disease), cervical Osteoarthritis of both hips, unspecified osteoarthritis type Osteoarthritis of both acromioclavicular joints Osteoarthritis of both glenohumeral joints Impingement syndrome of both shoulders Primary osteoarthritis of both knees Osteoarthritis of both wrists, unspecified osteoarthritis type Osteoarthritis of both hands, unspecified osteoarthritis type Plaque psoriasis 6 Occurrences starting 10/11/2019 until 09/08/2020 [employer] Comment on above: 6 Occurrences starting 10/11/2019 until 09/08/2020 End: 01-12-2021 AST [Catalytic activity/Vol] AST Lab Routine Psoriatic arthritis Psoriasis Plaque psoriasis 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, long term care pharmacist, current use Long-term current use of high risk medication other than anticoagulant care 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) 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 arthritis Abnormal renal function test Vitamin D deficiency Primary osteoarthritis of both knees Osteoarthritis of both wrists, unspecified osteoarthritis type Osteoarthritis of both hips, unspecified osteoarthritis type Osteoarthritis of both hands, unspecified osteoarthritis type Osteoarthritis of both glenohumeral joints Osteoarthritis of both acromioclavicular joints Osteoarthritis of cervical spine, unspecified spinal osteoarthritis complication status Impingement syndrome of both shoulders DDD (degenerative disc disease), cervical 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 6 Occurrences starting 01/13/2020 until 01/12/2021, 1 completed [employer] Comment on above: 6 Occurrences starting 01/13/2020 until 01/12/2021, 1 completed End: 07-13-2021 AST [Catalytic activity/Vol] AST Lab Routine Psoriatic arthritis 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 Psoriasis SAPHO syndrome 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 arthritis care 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, custodial, current use Long-term current use of high risk medication other than anticoagulant Vitamin D deficiency Osteoarthritis of cervical spine, unspecified spinal osteoarthritis complication status DDD (degenerative disc disease), cervical Osteoarthritis of both hips, unspecified osteoarthritis type Osteoarthritis of both acromioclavicular joints Osteoarthritis of both glenohumeral joints Impingement syndrome of both shoulders Primary osteoarthritis of both knees Osteoarthritis of both wrists, unspecified osteoarthritis type Osteoarthritis of both hands, unspecified osteoarthritis type Plaque psoriasis 6 Occurrences starting 09/12/2020 until 07/13/2021, 1 completed [facility] Comment on above: 6 Occurrences starting 09/12/2020 until 07/13/2021, 1 completed End: 05-03-2019 AST enzyme act/vol AST Routine Psoriatic arthri tis 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 Psoriasis Anemia, unspecified type 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) 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, custodial, current use Long-term current use of high risk medication other than anticoagulant Vitamin D deficiency Lumbosacral spondylosis without myelopathy Osteoarthritis of cervical spine, unspecified spinal osteoarthritis complication status DDD (degenerative disc disease), cervical Osteoarthritis of both hips, unspecified osteoarthritis type Osteoarthritis of both acromioclavicular joints Osteoarthritis of both glenohumeral joints Impingement syndrome of both shoulders Primary osteoarthritis of both knees Osteoarthritis of both wrists, unspecified osteoarthritis type Osteoarthritis of both hands, unspecified osteoarthritis type Plaque psoriasis 6 Occurrences starting 05/30/2018 until 05/03/2019 [facility] Work Phone: Comment on above: 6 Occurrences starting 05/30/2018 until 05/03/2019 End: 09-04-2019 AST enzyme act/vol ASTLabRoutinePsoriatic arthritis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Psoriatic spondylitis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 arthritisLong term 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)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Long-term current use of high risk medication other than anticoagulant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, long term care pharmacist, current useNoncompliancePatient non adherenceVitamin D deficiencyDDD (degenerative disc disease), cervicalImpingement syndrome of both shouldersLumbosacral spondylosis without myelopathyOsteoarthritis of cervical spine, unspecified spinal osteoarthritis complication statusOsteoarthritis of both acromioclavicular jointsOsteoarthritis of both glenohumeral jointsOsteoarthritis of both hands, unspecified osteoarthritis typeOsteoarthritis of both hips, unspecified osteoarthritis typeOsteoarthritis of both wrists, unspecified osteoarthritis typePrimary osteoarthritis of both kneesPlaque psoriasisPsoriasis6 Occurrences starting 11/03/2018 until (more content not included)... 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) 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 arthritis Vitamin D deficiency Primary osteoarthritis of both knees Osteoarthritis of both wrists, unspecified osteoarthritis type Osteoarthritis of both hips, unspecified osteoarthritis type Osteoarthritis of both hands, unspecified osteoarthritis type Osteoarthritis of both glenohumeral joints Osteoarthritis of both acromioclavicular joints Osteoarthritis of cervical spine, unspecified spinal osteoarthritis complication status Impingement syndrome of both shoulders DDD (degenerative disc disease), cervical 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 Hyperchromic anemia Every 8 Weeks for 6 Occurrences starting 07/12/2021 until 07/12/2022, 1 completed [employer] Comment on above: Every 8 Weeks for 6 Occurrences starting 07/12/2021 until 07/12/2022, 1 completed End: 01-10-2023 C-reactive protein C REACTIVE PROTEIN Lab Routi ne Psoriatic arthritis 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 Plaque psoriasis Psoriasis SAPHO syndrome 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 arthritis care 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) Long-term current use of high risk medication other than anticoagulant 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, long term care pharmacist, current use Every 8 Weeks for 6 Occurrences starting 01/10/2022 until 01/10/2023 [employer] Comment on above: Every 8 Weeks for 6 Occurrences starting 01/10/2022 until 01/10/2023 End: 07-26-2023 C-reactive protein C REACTIVE PROTEIN Lab Routi ne Psoriatic arthritis 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 Macrocytic anemia Plaque psoriasis Psoriasis SAPHO syndrome History of kidney stones 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) Long-term current use of high risk medication other than anticoagulant 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, long term care pharmacist, current use Abnormal renal function test Vitamin D deficiency DDD (degenerative disc disease), cervical Impingement syndrome of both shoulders Osteoarthritis of cervical spine, unspecified spinal osteoarthritis complication status Osteoarthritis of both acromioclavicular joints Osteoarthritis of both glenohumeral joints Osteoarthritis of both hands, unspecified osteoarthritis type Osteoarthritis of both hips, unspecified osteoarthritis type Osteoarthritis of both wrists, unspecified osteoarthritis type Primary osteoarthritis of both knees Every 12 Weeks for 4 Occurrences starting 07/25/2022 until 07/26/2023 [employer] Comment on above: Every 12 Weeks for 4 Occurrences startin g 07/25/2022 until 07/26/2023 End: 01-24-2024 C-reactive protein C REACTIVE PROTEIN Lab Routi ne Psoriatic arthritis 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 Plaque psoriasis Psoriasis SAPHO syndrome History of kidney stones 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 arthritis Long-term current use of high risk medication other than anticoagulant 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, custodial, current use Vitamin D deficiency DDD (degenerative disc disease), cervical Impingement syndrome of both shoulders Osteoarthritis of cervical spine, unspecified spinal osteoarthritis complication status Osteoarthritis of both acromioclavicular joints Osteoarthritis of both glenohumeral joints Osteoarthritis of both hands, unspecified osteoarthritis type Osteoarthritis of both hips, unspecified osteoarthritis type Osteoarthritis of both wrists, unspecified osteoarthritis type Primary osteoarthritis of both knees Every 12 Weeks for 4 Occurrences starting 01/23/2023 until 01/24/2024 [employer] Comment on above: Every 12 Weeks for 4 Occurrences startin g 01/23/2023 until 01/24/2024 End: 01-08-2020 CBC, EDIF, PLATELET CBC, EDIF, PLATELET Lab Rout ine Psoriatic arthritis Psoriatic spondylitis Psoriasis Plaque psoriasis Anemia, unspecified type 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, custodial, current use Long-term current use of high risk medication other than 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) 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 arthritis Vitamin D deficiency Primary osteoarthritis of both knees Osteoarthritis of both wrists, unspecified osteoarthritis type Osteoarthritis of both hips, unspecified osteoarthritis type Osteoarthritis of both hands, unspecified osteoarthritis type Osteoarthritis of both glenohumeral joints Osteoarthritis of both acromioclavicular joints Osteoarthritis of cervical spine, unspecified spinal osteoarthritis complication status Impingement syndrome of both shoulders DDD (degenerative disc disease), cervical 6 Occurrences starting 01/04/2019 until 01/08/2020 [employer] Comment on above: 6 Occurrences starting 01/04/2019 until 01/08/2020 End: 05-03-2019 CBC,PLATELETS CBC,PLATELETS Routine Psoria tic arthritis 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 Psoriasis Anemia, unspecified type 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) care home current use of 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, long term care pharmacist, current use Long-term current use of high risk medication other than anticoagulant Vitamin D deficiency Lumbosacral spondylosis without myelopathy Osteoarthritis of cervical spine, unspecified spinal osteoarthritis complication status DDD (degenerative disc disease), cervical Osteoarthritis of both hips, unspecified osteoarthritis type Osteoarthritis of both acromioclavicular joints Osteoarthritis of both glenohumeral joints Impingement syndrome of both shoulders Primary osteoarthritis of both knees Osteoarthritis of both wrists, unspecified osteoarthritis type Osteoarthritis of both hands, unspecified osteoarthritis type Plaque psoriasis 6 Occurrences starting 05/30/2018 until 05/03/2019 [facility] Work Phone: Comment on above: 6 Occurrences starting 05/30/2018 until 05/03/2019 End: 09-04-2019 CBC,PLATELETS CBC,PLATELETSLabRoutinePsori atic arthritis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Psoriatic spondylitis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 arthritisLong term 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)care home current use of 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Long-term current use of high risk medication other than anticoagulant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, custodial, current useNoncompliancePatient non adherenceVitamin D deficiencyDDD (degenerative disc disease), cervicalImpingement syndrome of both shouldersLumbosacral spondylosis without myelopathyOsteoarthritis of cervical spine, unspecified spinal osteoarthritis complication statusOsteoarthritis of both acromioclavicular jointsOsteoarthritis of both glenohumeral jointsOsteoarthritis of both hands, unspecified osteoarthritis typeOsteoarthritis of both hips, unspecified osteoarthritis typeOsteoarthritis of both wrists, unspecified osteoarthritis typePrimary osteoarthritis of both kneesPlaque psoriasisPsoriasis6 Occurrences starting 11/03/2018 until (more content not included)... 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, custodial, current use Long-term current use of high risk medication other than anticoagulant Vitamin D deficiency Osteoarthritis of cervical spine, unspecified spinal osteoarthritis complication status DDD (degenerative disc disease), cervical Osteoarthritis of both hips, unspecified osteoarthritis type Osteoarthritis of both acromioclavicular joints Osteoarthritis of both glenohumeral joints Impingement syndrome of both shoulders Primary osteoarthritis of both knees Osteoarthritis of both wrists, unspecified osteoarthritis type Osteoarthritis of both hands, unspecified osteoarthritis type Plaque psoriasis 6 Occurrences starting 10/11/2019 until 09/08/2020 [employer] Comment on above: 6 Occurrences starting 10/11/2019 until 09/08/2020 End: 01-12-2021 Complete blood count with white cell differential, automated CBC, EDIF, PLATELET Lab Routine Psoriatic arthritis Psoriasis Plaque psoriasis 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, long term care pharmacist, current use Long-term current use of high risk medication other than anticoagulant 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) 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 arthritis Abnormal renal function test Vitamin D deficiency Primary osteoarthritis of both knees Osteoarthritis of both wrists, unspecified osteoarthritis type Osteoarthritis of both hips, unspecified osteoarthritis type Osteoarthritis of both hands, unspecified osteoarthritis type Osteoarthritis of both glenohumeral joints Osteoarthritis of both acromioclavicular joints Osteoarthritis of cervical spine, unspecified spinal osteoarthritis complication status Impingement syndrome of both shoulders DDD (degenerative disc disease), cervical 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 6 Occurrences starting 01/13/2020 until 01/12/2021, 1 completed [facility] Comment on above: 6 Occurrences starting 01/13/2020 until 01/12/2021, 1 completed End: 07-13-2021 Complete blood count with white cell differential, automated CBC, EDIF, PLATELET Lab Routine Psoriatic arthritis 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 Psoriasis SAPHO syndrome 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, long term care pharmacist, current use Long-term current use of high risk medication other than anticoagulant Vitamin D deficiency Osteoarthritis of cervical spine, unspecified spinal osteoarthritis complication status DDD (degenerative disc disease), cervical Osteoarthritis of both hips, unspecified osteoarthritis type Osteoarthritis of both acromioclavicular joints Osteoarthritis of both glenohumeral joints Impingement syndrome of both shoulders Primary osteoarthritis of both knees Osteoarthritis of both wrists, unspecified osteoarthritis type Osteoarthritis of both hands, unspecified osteoarthritis type Plaque psoriasis 6 Occurrences starting 09/12/2020 until 07/13/2021, 1 [facility] [employer] Comment on above: 6 Occurrences starting 09/12/2020 until 07/13/2021, 1 completed End: 07-12-2022 Complete blood count with white cell differential, automated CBC, EDIF, PLATELET Lab Routine Psoriatic arthritis Psoriatic spondylitis Psoriasis Plaque psoriasis Anemia, unspecified type 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, custodial, current use Long-term current use of high risk medication other than 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) 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 arthritis Vitamin D deficiency Primary osteoarthritis of both knees Osteoarthritis of both wrists, unspecified osteoarthritis type Osteoarthritis of both hips, unspecified osteoarthritis type Osteoarthritis of both hands, unspecified osteoarthritis type Osteoarthritis of both glenohumeral joints Osteoarthritis of both acromioclavicular joints Osteoarthritis of cervical spine, unspecified spinal osteoarthritis complication status Impingement syndrome of both shoulders DDD (degenerative disc disease), cervical 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 Hyperchromic anemia Every 8 Weeks for 6 Occurrences starting 07/12/2021 until 07/12/2022, 1 completed [employer] Comment on above: Every 8 Weeks for 6 Occurrences starting 07/12/2021 until 07/12/2022, 1 completed End: 01-10-2023 Complete blood count with white cell differential, automated CBC, EDIF, PLATELET Lab Routine Psoriatic arthritis 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 Plaque psoriasis Psoriasis SAPHO syndrome 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 arthritis care 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) Long-term current use of high risk medication other than anticoagulant 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, long term care pharmacist, current use Every 8 Weeks for 6 Occurrences starting 01/10/2022 until 01/10/2023 [facility] Comment on above: Every 8 Weeks for 6 Occurrences starting 01/10/2022 until 01/10/2023 End: 07-26-2023 Complete blood count with white cell differential, automated CBC, EDIF, PLATELET Lab Routine Psoriatic arthritis 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 Macrocytic anemia Plaque psoriasis Psoriasis SAPHO syndrome History of kidney stones 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) Long-term current use of high risk medication other than anticoagulant 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, custodial, current use Abnormal renal function test Vitamin D deficiency DDD (degenerative disc disease), cervical Impingement syndrome of both shoulders Osteoarthritis of cervical spine, unspecified spinal osteoarthritis complication status Osteoarthritis of both acromioclavicular joints Osteoarthritis of both glenohumeral joints Osteoarthritis of both hands, unspecified osteoarthritis type Osteoarthritis of both hips, unspecified osteoarthritis type Osteoarthritis of both wrists, unspecified osteoarthritis type Primary osteoarthritis of both knees Every 12 Weeks for 4 Occurrences starting 07/25/2022 until 07/26/2023 [facility] [employer] [facility] Comment on above: Every 12 Weeks for 4 Occurrences startin g 07/25/2022 until 07/26/2023 End: 01-24-2024 Complete blood count with white cell differential, automated CBC, EDIF, PLATELET Lab Routine Psoriatic arthritis 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 Plaque psoriasis Psoriasis SAPHO syndrome History of kidney stones 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 arthritis Long-term current use of high risk medication other than anticoagulant 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, long term care pharmacist, current use Vitamin D deficiency DDD (degenerative disc disease), cervical Impingement syndrome of both shoulders Osteoarthritis of cervical spine, unspecified spinal osteoarthritis complication status Osteoarthritis of both acromioclavicular joints Osteoarthritis of both glenohumeral joints Osteoarthritis of both hands, unspecified osteoarthritis type Osteoarthritis of both hips, unspecified osteoarthritis type Osteoarthritis of both wrists, unspecified osteoarthritis type Primary osteoarthritis of both knees Every 12 Weeks for 4 Occurrences starting 01/23/2023 until 01/24/2024 [employer] Comment on above: Every 12 Weeks for 4 Occurrences startin g 01/23/2023 until 01/24/2024 End: 09-08-2020 Creatinine [Mass/Vol] CREATININE SERUM Lab Routine Psoriatic arthritis 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 Psoriasis SAPHO syndrome 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 arthritis care 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, long term care pharmacist, current use Long-term current use of high risk medication other than anticoagulant Vitamin D deficiency Osteoarthritis of cervical spine, unspecified spinal osteoarthritis complication status DDD (degenerative disc disease), cervical Osteoarthritis of both hips, unspecified osteoarthritis type Osteoarthritis of both acromioclavicular joints Osteoarthritis of both glenohumeral joints Impingement syndrome of both shoulders Primary osteoarthritis of both knees Osteoarthritis of both wrists, unspecified osteoarthritis type Osteoarthritis of both hands, unspecified osteoarthritis type Plaque psoriasis 6 Occurrences starting 10/11/2019 until 09/08/2020 [employer] Comment on above: 6 Occurrences starting 10/11/2019 until 09/08/2020 End: 01-12-2021 Creatinine [Mass/Vol] CREATININE SERUM Lab Routine Psoriatic arthritis Psoriasis Plaque psoriasis 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, custodial, current use Long-term current use of high risk medication other than anticoagulant 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) 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 arthritis Abnormal renal function test Vitamin D deficiency Primary osteoarthritis of both knees Osteoarthritis of both wrists, unspecified osteoarthritis type Osteoarthritis of both hips, unspecified osteoarthritis type Osteoarthritis of both hands, unspecified osteoarthritis type Osteoarthritis of both glenohumeral joints Osteoarthritis of both acromioclavicular joints Osteoarthritis of cervical spine, unspecified spinal osteoarthritis complication status Impingement syndrome of both shoulders DDD (degenerative disc disease), cervical 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 6 Occurrences starting 01/13/2020 until 01/12/2021, 1 completed [employer] Comment on above: 6 Occurrences starting 01/13/2020 until 01/12/2021, 1 completed End: 01-08-2020 Creatinine [Mass/Vol] CREATININE SERUM Lab Routine Psoriatic arthritis Psoriatic spondylitis Psoriasis Plaque psoriasis Anemia, unspecified type 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, custodial, current use Long-term current use of high risk medication other than anticoagulant care home current use of 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) 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 arthritis Vitamin D deficiency Primary osteoarthritis of both knees Osteoarthritis of both wrists, unspecified osteoarthritis type Osteoarthritis of both hips, unspecified osteoarthritis type Osteoarthritis of both hands, unspecified osteoarthritis type Osteoarthritis of both glenohumeral joints Osteoarthritis of both acromioclavicular joints Osteoarthritis of cervical spine, unspecified spinal osteoarthritis complication status Impingement syndrome of both shoulders DDD (degenerative disc disease), cervical 6 Occurrences starting 01/04/2019 until 01/08/2020 [employer] Comment on above: 6 Occurrences starting 01/04/2019 until 01/08/2020 End: 07-13-2021 Creatinine [Mass/Vol] CREATININE SERUM Lab Routine Psoriatic arthritis 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 Psoriasis SAPHO syndrome 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, custodial, current use Long-term current use of high risk medication other than anticoagulant Vitamin D deficiency Osteoarthritis of cervical spine, unspecified spinal osteoarthritis complication status DDD (degenerative disc disease), cervical Osteoarthritis of both hips, unspecified osteoarthritis type Osteoarthritis of both acromioclavicular joints Osteoarthritis of both glenohumeral joints Impingement syndrome of both shoulders Primary osteoarthritis of both knees Osteoarthritis of both wrists, unspecified osteoarthritis type Osteoarthritis of both hands, unspecified osteoarthritis type Plaque psoriasis 6 Occurrences starting 09/12/2020 until 07/13/2021, 1 completed [facility] [employer] [facility] Comment on above: 6 Occurrences starting 09/12/2020 until 07/13/2021, 1 completed End: 07-12-2022 Creatinine [Mass/volume] in Serum or Plasma CREATININE SERUM Lab Routine Psoriatic arthritis Psoriatic spondylitis Psoriasis Plaque psoriasis Anemia, unspecified type 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, long term care pharmacist, current use Long-term current use of high risk medication other than 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) 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 arthritis Vitamin D deficiency Primary osteoarthritis of both knees Osteoarthritis of both wrists, unspecified osteoarthritis type Osteoarthritis of both hips, unspecified osteoarthritis type Osteoarthritis of both hands, unspecified osteoarthritis type Osteoarthritis of both glenohumeral joints Osteoarthritis of both acromioclavicular joints Osteoarthritis of cervical spine, unspecified spinal osteoarthritis complication status Impingement syndrome of both shoulders DDD (degenerative disc disease), cervical 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 Hyperchromic anemia Every 8 Weeks for 6 Occurrences starting 07/12/2021 until 07/12/2022, 1 completed [employer] Comment on above: Every 8 Weeks for 6 Occurrences starting 07/12/2021 until 07/12/2022, 1 completed End: 01-10-2023 Creatinine [Mass/volume] in Serum or Plasma CREATININE SERUM Lab Routine Psoriatic arthritis 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 Plaque psoriasis Psoriasis SAPHO syndrome 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) Long-term current use of high risk medication other than anticoagulant 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, long term care pharmacist, current use Every 8 Weeks for 6 Occurrences starting 01/10/2022 until 01/10/2023 [employer] Comment on above: Every 8 Weeks for 6 Occurrences starting 01/10/2022 until 01/10/2023 End: 07-26-2023 Creatinine [Mass/volume] in Serum or Plasma CREATININE SERUM Lab Routine Psoriatic arthritis 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 Macrocytic anemia Plaque psoriasis Psoriasis SAPHO syndrome History of kidney stones 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 arthritis care 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) Long-term current use of high risk medication other than anticoagulant 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, long term care pharmacist, current use Abnormal renal function test Vitamin D deficiency DDD (degenerative disc disease), cervical Impingement syndrome of both shoulders Osteoarthritis of cervical spine, unspecified spinal osteoarthritis complication status Osteoarthritis of both acromioclavicular joints Osteoarthritis of both glenohumeral joints Osteoarthritis of both hands, unspecified osteoarthritis type Osteoarthritis of both hips, unspecified osteoarthritis type Osteoarthritis of both wrists, unspecified osteoarthritis type Primary osteoarthritis of both knees Every 12 Weeks for 4 Occurrences starting 07/25/2022 until 07/26/2023 [employer] Comment on above: Every 12 Weeks for 4 Occurrences startin g 07/25/2022 until 07/26/2023 End: 01-24-2024 Creatinine [Mass/volume] in Serum or Plasma CREATININE SERUM Lab Routine Psoriatic arthritis 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 Plaque psoriasis Psoriasis SAPHO syndrome History of kidney stones 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 arthritis Long-term current use of high risk medication other than anticoagulant 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, long term care pharmacist, current use Vitamin D deficiency DDD (degenerative disc disease), cervical Impingement syndrome of both shoulders Osteoarthritis of cervical spine, unspecified spinal osteoarthritis complication status Osteoarthritis of both acromioclavicular joints Osteoarthritis of both glenohumeral joints Osteoarthritis of both hands, unspecified osteoarthritis type Osteoarthritis of both hips, unspecified osteoarthritis type Osteoarthritis of both wrists, unspecified osteoarthritis type Primary osteoarthritis of both knees Every 12 Weeks for 4 Occurrences starting 01/23/2023 until 01/24/2024 [facility] Comment on above: Every 12 Weeks for 4 Occurrences startin g 01/23/2023 until 01/24/2024 End: 05-03-2019 Creatinine mass conc CREATININE SERUM Routine Psoriatic arthritis 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 Psoriasis Anemia, unspecified type 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) care home current use of 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, custodial, current use Long-term current use of high risk medication other than anticoagulant Vitamin D deficiency Lumbosacral spondylosis without myelopathy Osteoarthritis of cervical spine, unspecified spinal osteoarthritis complication status DDD (degenerative disc disease), cervical Osteoarthritis of both hips, unspecified osteoarthritis type Osteoarthritis of both acromioclavicular joints Osteoarthritis of both glenohumeral joints Impingement syndrome of both shoulders Primary osteoarthritis of both knees Osteoarthritis of both wrists, unspecified osteoarthritis type Osteoarthritis of both hands, unspecified osteoarthritis type Plaque psoriasis 6 Occurrences starting 05/30/2018 until 05/03/2019 [facility] Work Phone: Comment on above: 6 Occurrences starting 05/30/2018 until 05/03/2019 End: 09-04-2019 Creatinine mass conc CREATININE SERUMLabRoutinePsoriatic arthritis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Psoriatic spondylitis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 arthritisLong term 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)care home current use of 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Long-term current use of high risk medication other than anticoagulant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, long term care pharmacist, current useNoncompliancePatient non adherenceVitamin D deficiencyDDD (degenerative disc disease), cervicalImpingement syndrome of both shouldersLumbosacral spondylosis without myelopathyOsteoarthritis of cervical spine, unspecified spinal osteoarthritis complication statusOsteoarthritis of both acromioclavicular jointsOsteoarthritis of both glenohumeral jointsOsteoarthritis of both hands, unspecified osteoarthritis typeOsteoarthritis of both hips, unspecified osteoarthritis typeOsteoarthritis of both wrists, unspecified osteoarthritis typePrimary osteoarthritis of both kneesPlaque psoriasisPsoriasis6 Occurrences starting 11/03/2018 un (more content not included)... 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, long term care pharmacist, current use Long-term current use of high risk medication other than anticoagulant Vitamin D deficiency Osteoarthritis of cervical spine, unspecified spinal osteoarthritis complication status DDD (degenerative disc disease), cervical Osteoarthritis of both hips, unspecified osteoarthritis type Osteoarthritis of both acromioclavicular joints Osteoarthritis of both glenohumeral joints Impingement syndrome of both shoulders Primary osteoarthritis of both knees Osteoarthritis of both wrists, unspecified osteoarthritis type Osteoarthritis of both hands, unspecified osteoarthritis type Plaque psoriasis 6 Occurrences starting 10/11/2019 until 09/08/2020 [employer] Comment on above: 6 Occurrences starting 10/11/2019 until 09/08/2020 End: 01-12-2021 CRP [Mass/Vol] C REACTIVE PROTEIN Lab Routi ne Psoriatic arthritis Psoriasis Plaque psoriasis 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, custodial, current use Long-term current use of high risk medication other than anticoagulant care 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) 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 arthritis Abnormal renal function test Vitamin D deficiency Primary osteoarthritis of both knees Osteoarthritis of both wrists, unspecified osteoarthritis type Osteoarthritis of both hips, unspecified osteoarthritis type Osteoarthritis of both hands, unspecified osteoarthritis type Osteoarthritis of both glenohumeral joints Osteoarthritis of both acromioclavicular joints Osteoarthritis of cervical spine, unspecified spinal osteoarthritis complication status Impingement syndrome of both shoulders DDD (degenerative disc disease), cervical 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 6 Occurrences starting 01/13/2020 until 01/12/2021, 1 completed [employer] Comment on above: 6 Occurrences starting 01/13/2020 until 01/12/2021, 1 completed End: 01-08-2020 CRP [Mass/Vol] C REACTIVE PROTEIN Lab Routi ne Psoriatic arthritis Psoriatic spondylitis Psoriasis Plaque psoriasis Anemia, unspecified type 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, long term care pharmacist, current use Long-term current use of high risk medication other than anticoagulant care home current use of 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 care 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) 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 arthritis Vitamin D deficiency Primary osteoarthritis of both knees Osteoarthritis of both wrists, unspecified osteoarthritis type Osteoarthritis of both hips, unspecified osteoarthritis type Osteoarthritis of both hands, unspecified osteoarthritis type Osteoarthritis of both glenohumeral joints Osteoarthritis of both acromioclavicular joints Osteoarthritis of cervical spine, unspecified spinal osteoarthritis complication status Impingement syndrome of both shoulders DDD (degenerative disc disease), cervical 6 Occurrences starting 01/04/2019 until 01/08/2020 [employer] Comment on above: 6 Occurrences starting 01/04/2019 until 01/08/2020 End: 07-13-2021 CRP [Mass/Vol] C REACTIVE PROTEIN Lab Routi ne Psoriatic arthritis 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 Psoriasis SAPHO syndrome 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 arthritis care 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, long term care pharmacist, current use Long-term current use of high risk medication other than anticoagulant Vitamin D deficiency Osteoarthritis of cervical spine, unspecified spinal osteoarthritis complication status DDD (degenerative disc disease), cervical Osteoarthritis of both hips, unspecified osteoarthritis type Osteoarthritis of both acromioclavicular joints Osteoarthritis of both glenohumeral joints Impingement syndrome of both shoulders Primary osteoarthritis of both knees Osteoarthritis of both wrists, unspecified osteoarthritis type Osteoarthritis of both hands, unspecified osteoarthritis type Plaque psoriasis 6 Occurrences starting 09/12/2020 until 07/13/2021, 1 completed [employer] Comment on above: 6 Occurrences starting 09/12/2020 until 07/13/2021, 1 completed End: 05-03-2019 CRP mass conc C REACTIVE PROTEIN Routine Psoriatic arthritis 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 Psoriasis Anemia, unspecified type 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) care home current use of 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, custodial, current use Long-term current use of high risk medication other than anticoagulant Vitamin D deficiency Lumbosacral spondylosis without myelopathy Osteoarthritis of cervical spine, unspecified spinal osteoarthritis complication status DDD (degenerative disc disease), cervical Osteoarthritis of both hips, unspecified osteoarthritis type Osteoarthritis of both acromioclavicular joints Osteoarthritis of both glenohumeral joints Impingement syndrome of both shoulders Primary osteoarthritis of both knees Osteoarthritis of both wrists, unspecified osteoarthritis type Osteoarthritis of both hands, unspecified osteoarthritis type Plaque psoriasis 6 Occurrences starting 05/30/2018 until 05/03/2019 [facility] Work Phone: Comment on above: 6 Occurrences starting 05/30/2018 until 05/03/2019 End: 09-04-2019 CRP mass conc C REACTIVE PROTEINLabRoutinePsoriatic arthritis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Psoriatic spondylitis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 arthritisLong term 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)care home current use of 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Long-term current use of high risk medication other than anticoagulant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, long term care pharmacist, current useNoncompliancePatient non adherenceVitamin D deficiencyDDD (degenerative disc disease), cervicalImpingement syndrome of both shouldersLumbosacral spondylosis without myelopathyOsteoarthritis of cervical spine, unspecified spinal osteoarthritis complication statusOsteoarthritis of both acromioclavicular jointsOsteoarthritis of both glenohumeral jointsOsteoarthritis of both hands, unspecified osteoarthritis typeOsteoarthritis of both hips, unspecified osteoarthritis typeOsteoarthritis of both wrists, unspecified osteoarthritis typePrimary osteoarthritis of both kneesPlaque psoriasisPsoriasisEvery 8 Weeks for [address] (more content not included)... 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 Psoriasis Anemia, unspecified type care 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) care home current use of 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, custodial, current use Long-term current use of high risk medication other than anticoagulant Vitamin D deficiency Lumbosacral spondylosis without myelopathy Osteoarthritis of cervical spine, unspecified spinal osteoarthritis complication status DDD (degenerative disc disease), cervical Osteoarthritis of both hips, unspecified osteoarthritis type Osteoarthritis of both acromioclavicular joints Osteoarthritis of both glenohumeral joints Impingement syndrome of both shoulders Primary osteoarthritis of both knees Osteoarthritis of both wrists, unspecified osteoarthritis type Osteoarthritis of both hands, unspecified osteoarthritis type Plaque psoriasis 6 Occurrences starting 05/30/2018 until 05/03/2019 [facility] Work Phone: Comment on above: 6 Occurrences starting 05/30/2018 until 05/03/2019 End: 09-04-2019 SEDIMENTATION RATE, AUTOMATED SEDIMENTATION RATE, AUTOMATEDLabRoutinePsoriatic arthritis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Psoriatic spondylitis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 arthritisLong term 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)care home current use of 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Long-term current use of high risk medication other than anticoagulant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, long term care pharmacist, current useNoncompliancePatient non adherenceVitamin D deficiencyDDD (degenerative disc disease), cervicalImpingement syndrome of both shouldersLumbosacral spondylosis without myelopathyOsteoarthritis of cervical spine, unspecified spinal osteoarthritis complication statusOsteoarthritis of both acromioclavicular jointsOsteoarthritis of both glenohumeral jointsOsteoarthritis of both hands, unspecified osteoarthritis typeOsteoarthritis of both hips, unspecified osteoarthritis typeOsteoarthritis of both wrists, unspecified osteoarthritis typePrimary osteoarthritis of both kneesPlaque psoriasisPsoriasis6 Occurrences starting (more content not included)... 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, custodial, current use Long-term current use of high risk medication other than anticoagulant Vitamin D deficiency Osteoarthritis of cervical spine, unspecified spinal osteoarthritis complication status DDD (degenerative disc disease), cervical Osteoarthritis of both hips, unspecified osteoarthritis type Osteoarthritis of both acromioclavicular joints Osteoarthritis of both glenohumeral joints Impingement syndrome of both shoulders Primary osteoarthritis of both knees Osteoarthritis of both wrists, unspecified osteoarthritis type Osteoarthritis of both hands, unspecified osteoarthritis type Plaque psoriasis 6 Occurrences starting 10/11/2019 until 09/08/2020 [employer] Comment on above: 6 Occurrences starting 10/11/2019 until 09/08/2020 End: 01-12-2021 SEDIMENTATION RATE, AUTOMATED SEDIMENTATION RATE, AUTOMATED Lab Routine Psoriatic arthritis Psoriasis Plaque psoriasis 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, custodial, current use Long-term current use of high risk medication other than anticoagulant 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) 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 arthritis Abnormal renal function test Vitamin D deficiency Primary osteoarthritis of both knees Osteoarthritis of both wrists, unspecified osteoarthritis type Osteoarthritis of both hips, unspecified osteoarthritis type Osteoarthritis of both hands, unspecified osteoarthritis type Osteoarthritis of both glenohumeral joints Osteoarthritis of both acromioclavicular joints Osteoarthritis of cervical spine, unspecified spinal osteoarthritis complication status Impingement syndrome of both shoulders DDD (degenerative disc disease), cervical 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 6 Occurrences starting 01/13/2020 until 01/12/2021, 1 completed [employer] Comment on above: 6 Occurrences starting 01/13/2020 until 01/12/2021, 1 completed End: 01-08-2020 SEDIMENTATION RATE, AUTOMATED SEDIMENTATION RATE, AUTOMATED Lab Routine Psoriatic arthritis Psoriatic spondylitis Psoriasis Plaque psoriasis Anemia, unspecified type 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, custodial, current use Long-term current use of high risk medication other than anticoagulant care home current use of 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 care 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) 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 arthritis Vitamin D deficiency Primary osteoarthritis of both knees Osteoarthritis of both wrists, unspecified osteoarthritis type Osteoarthritis of both hips, unspecified osteoarthritis type Osteoarthritis of both hands, unspecified osteoarthritis type Osteoarthritis of both glenohumeral joints Osteoarthritis of both acromioclavicular joints Osteoarthritis of cervical spine, unspecified spinal osteoarthritis complication status Impingement syndrome of both shoulders DDD (degenerative disc disease), cervical 6 Occurrences starting 01/04/2019 until 01/08/2020 [employer] Comment on above: 6 Occurrences starting 01/04/2019 until 01/08/2020 End: 07-13-2021 SEDIMENTATION RATE, AUTOMATED SEDIMENTATION RATE, AUTOMATED Lab Routine Psoriatic arthritis 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 Psoriasis SAPHO syndrome 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, custodial, current use Long-term current use of high risk medication other than anticoagulant Vitamin D deficiency Osteoarthritis of cervical spine, unspecified spinal osteoarthritis complication status DDD (degenerative disc disease), cervical Osteoarthritis of both hips, unspecified osteoarthritis type Osteoarthritis of both acromioclavicular joints Osteoarthritis of both glenohumeral joints Impingement syndrome of both shoulders Primary osteoarthritis of both knees Osteoarthritis of both wrists, unspecified osteoarthritis type Osteoarthritis of both hands, unspecified osteoarthritis type Plaque psoriasis 6 Occurrences starting 09/12/2020 until 07/13/2021, 1 completed [employer] Comment on above: 6 Occurrences starting 09/12/2020 until 07/13/2021, 1 completed End: 07-12-2022 SEDIMENTATION RATE, AUTOMATED SEDIMENTATION RATE, AUTOMATED Lab Routine Psoriatic arthritis Psoriatic spondylitis Psoriasis Plaque psoriasis Anemia, unspecified type 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, custodial, current use Long-term current use of high risk medication other than 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) 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 arthritis Vitamin D deficiency Primary osteoarthritis of both knees Osteoarthritis of both wrists, unspecified osteoarthritis type Osteoarthritis of both hips, unspecified osteoarthritis type Osteoarthritis of both hands, unspecified osteoarthritis type Osteoarthritis of both glenohumeral joints Osteoarthritis of both acromioclavicular joints Osteoarthritis of cervical spine, unspecified spinal osteoarthritis complication status Impingement syndrome of both shoulders DDD (degenerative disc disease), cervical 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 Hyperchromic anemia Every 8 Weeks for 6 Occurrences starting 07/12/2021 until 07/12/2022, 1 completed [employer] Comment on above: Every 8 Weeks for 6 Occurrences starting 07/12/2021 until 07/12/2022, 1 completed End: 01-10-2023 SEDIMENTATION RATE, AUTOMATED SEDIMENTATION RATE, AUTOMATED Lab Routine Psoriatic arthritis 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 Plaque psoriasis Psoriasis SAPHO syndrome 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 arthritis care 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) Long-term current use of high risk medication other than anticoagulant 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, long term care pharmacist, current use Every 8 Weeks for 6 Occurrences starting 01/10/2022 until 01/10/2023 [employer] Comment on above: Every 8 Weeks for 6 Occurrences starting 01/10/2022 until 01/10/2023 End: 07-26-2023 SEDIMENTATION RATE, AUTOMATED SEDIMENTATION RATE, AUTOMATED Lab Routine Psoriatic arthritis 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 Macrocytic anemia Plaque psoriasis Psoriasis SAPHO syndrome History of kidney stones 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) Long-term current use of high risk medication other than anticoagulant 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, custodial, current use Abnormal renal function test Vitamin D deficiency DDD (degenerative disc disease), cervical Impingement syndrome of both shoulders Osteoarthritis of cervical spine, unspecified spinal osteoarthritis complication status Osteoarthritis of both acromioclavicular joints Osteoarthritis of both glenohumeral joints Osteoarthritis of both hands, unspecified osteoarthritis type Osteoarthritis of both hips, unspecified osteoarthritis type Osteoarthritis of both wrists, unspecified osteoarthritis type Primary osteoarthritis of both knees Every 12 Weeks for 4 Occurrences starting 07/25/2022 until 07/26/2023 [employer] Comment on above: Every 12 Weeks for 4 Occurrences startin g 07/25/2022 until 07/26/2023 End: 01-24-2024 SEDIMENTATION RATE, AUTOMATED SEDIMENTATION RATE, AUTOMATED Lab Routine Psoriatic arthritis 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 Plaque psoriasis Psoriasis SAPHO syndrome History of kidney stones 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 arthritis Long-term current use of high risk medication other than anticoagulant 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, custodial, current use Vitamin D deficiency DDD (degenerative disc disease), cervical Impingement syndrome of both shoulders Osteoarthritis of cervical spine, unspecified spinal osteoarthritis complication status Osteoarthritis of both acromioclavicular joints Osteoarthritis of both glenohumeral joints Osteoarthritis of both hands, unspecified osteoarthritis type Osteoarthritis of both hips, unspecified osteoarthritis type Osteoarthritis of both wrists, unspecified osteoarthritis type Primary osteoarthritis of both knees Every 12 Weeks for 4 Occurrences starting 01/23/2023 until 01/24/2024 [facility] Comment on above: Every 12 Weeks for 4 Occurrences startin g 01/23/2023 until 01/24/2024 VITAMIN D, (1,25 DIHYDROXY) VITAMIN D, (1,25 DIHYDROXY) Lab Routine Psoriatic arthritis 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 Psoriasis SAPHO syndrome 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 arthritis care 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, long term care pharmacist, current use Long-term current use of high risk medication other than anticoagulant Vitamin D deficiency Osteoarthritis of cervical spine, unspecified spinal osteoarthritis complication status DDD (degenerative disc disease), cervical Osteoarthritis of both hips, unspecified osteoarthritis type Osteoarthritis of both acromioclavicular joints Osteoarthritis of both glenohumeral joints Impingement syndrome of both shoulders Primary osteoarthritis of both knees Osteoarthritis of both wrists, unspecified osteoarthritis type Osteoarthritis of both hands, unspecified osteoarthritis type Plaque psoriasis 07/13/2020 9:08 AM EDT [facility] Immunizations Immunization Date Immunization Notes Care Provider Ortega kent 09-07-2020 SARS-CoV-2 (COVID-19 ) mRNA BNT-162b6 vax Yakelin Jack [facility] 08-17-2020 SARS-CoV-2 (COVID-19 ) mRNA BNT-162b2 vax Yakelin Jack [facility] 11-15-2019 tetanus toxoid, redu freddie diphtheria toxoid, and acellular pertussis vaccine, adsorbed Yakelin Jack [facility] Payers Date Payer Category Payer Unknown [employer] xxxxxxxxxxx 2018-Present xxxxxxxxxxx [id number] 2018 Unknown [employer] [id number] 2018-Present [id number]. [id number] 2018 Unknown [id number] 1.13.172.2.7.3. [id number] 1966 Unknown [id number] 2.16.840.1.489522.3.579.2.647 1966 Unknown [id number] 2.16.840.1.803115.3.579.2.983 1966 Unknown [id number] 2.16.840.1.056887.3.579.2.983 1966 Unknown [id number] 2.16.840.1.744377.3.579.2.593 1966 Unknown [id number] 2.16.840.1.151187.3.579.2.593 1966 Unknown [id number] 2.16.840.1.751224.3.579.2.593 1966 Unknown [id number] 2.16.840.1.099924.3.579.2.593 1966 Unknown [id number] 2.16.840.1.348148.3.579.2.593 1966 Unknown [id number] 2.16.840.1.197331.3.579.2.593 1966 Unknown [id number] 2.16.840.1.888098.3.579.2.593 1966 Unknown [id number] 2.16.840.1.604291.3.579.2.593 1966 Unknown [id number] 2.16.840.1.924829.3.579.2.593 1966 Unknown [id number] 2.16.840.1.383614.3.579.2.593 1966 Unknown [id number] 2.16.840.1.672973.3.579.2.593 1966 Unknown [id number] 2.16.840.1.347734.3.579.2.593 1966 Unknown [id number] 2.16.840.1.583954.3.579.2.593 1966 Unknown [id number] 2.16.840.1.092153.3.579.2.593 1966 Unknown [id number] 2.16.840.1.491254.3.579.2.593 1966 Unknown [id number] 2.16.840.1.981781.3.579.2.593 1966 Unknown [id number] 2.16.840.1.493554.3.579.2.593 1966 Unknown [id number] 2.16.840.1.178719.3.579.2.593 1966 Unknown [id number] 2.16.840.1.984403.3.579.2.593 1966 Unknown [id number] 2.16.840.1.812664.3.579.2.593 1966 Unknown [id number] 2.16.840.1.113241.3.579.2.593 1966 Unknown [id number] 2.16.840.1.582268.3.579.2.593 1966 Unknown [id number] 2.16.840.1.004654.3.579.2.983 1966 Unknown [id number] 2.16.840.1.600829.3.579.2.983 1966 Unknown [id number] 2.16.840.1.190708.3.579.2.983 1966 Unknown [id number] 2.16.840.1.014299.3.579.2.983 1966 Unknown [id number] 2.16.840.1.052090.3.579.2.983 1966 Unknown [id number] 2.16.840.1.749608.3.579.2.983 1966 Unknown [id number] 2.16.840.1.230261.3.579.2.727 1966 Unknown [id number] 2.16.840.1.452368.3.579.2.727 1966 Unknown [id number] 2.16.840.1.145975.3.579.2.727 1966 Unknown [id number] 2.16.840.1.233950.3.579.2.727 1966 Unknown [id number] 2.16.840.1.877108.3.579.2.727 1966 Unknown [id number] 2.16.840.1.912327.3.579.2.727 1966 Unknown [id number] 2.16.840.1.237706.3.579.2.727 1966 Unknown [id number] 2.16.840.1.741125.3.579.2.727 1966 Unknown [id number] 2.16.840.1.593066.3.579.2727 1966 Unknown [id number] 2.16.840.1.204480.3.579.2.72 1966 Unknown [id number] 1958 Unknown [id number] 1958 Unknown [id number] Social History Date Type Detail Facility Start: 03-29-2018 End: 01-10-2022 Tobacco smoking status NHIS Former smoker [facility] Work Phone: Start: 1965 Sex Assigned At Not on file O [facility] Work Phone: Start: 03-29-2018 End: 01-10-2022 Tobacco Comment [facility] Start: 09-03-2018 End: 07-25-2022 Alcohol intake No [facility] Start: 05-06-2019 End: 01-23-2023 Alcohol intake Current non-drinker of alcohol (finding) [facility] Start: 09-09-2019 End: 01-10-2022 Tobacco use and exposure Never used [facility] Exposure to SARS-CoV -2 (event) Not sure [facility] History of tobacco use Current smoker [email or web address] Start: 07-25-2022 History of Social function [facility] Start: 12-31-2017 Gender identity Identifies as male gender (finding) [facility] Clinical Notes 07-12-2021 to 01-23-2023 Tra Vale Jr., DO - 01/23/2023 9:00 AM EDTDatierney Vale Jr., DO - 07/25/2022 8:30 AM EDT Note Date & Type Note Facility 01-23-2023 History of Present illness Narrative Subjective History of Present Illness Patient states he seen a engineering technician Dr. Fawad Driver but they did not help treat is psoriasis. DX with PsA 2011. Humira and cosentyx made the psoriasis worse and 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 and Enbrel and Remicade and otezla quit working. Stelara started 05/2018. Stelara has been helping and not bothering the patient. Stelara stopped by derm 04/2021. Taltz started by derm 05/2021. Taltz has been helping and not bothering the patient. Presence of Pain: complains of pain/discomfort Select Pain Scale: DVPRS (Defense and Veterans Pain Rating Scale) (Adult-Cognitively Intact) DVPRS: Rest: 9- severe pain Select Pain Scale: DVPRS (Defense and Veterans Pain Rating Scale) (Adult-Cognitively Intact). Total time spent in this encounter was 21 minutes. Patient is being evaluated for an unstable chronic illness that increase morbidity and mortality. Patient is here for 6 month F/U. Patient states that he is having pain all over today. Patient is losing wt still. Kidney stones are not causing problems but he still has them and is going to see urology. Weakness is yes. In AM and late at night sometimes. Still bruising easy. Muscle spasms are the same. Having them in his legs. Joint pain is yes. Neck pain is yes. Knees too. Psoriasis/Rash is the same. Only a couple spots on his body. I have been told that patient is on a high risk medication as it either treats cancer or requires blood work every 2-3 months. Talolimpia is once a month. Patient did blood work around 01/09/2023 and I do not have the results and will try to track those down. Objective Review of Systems Constitutional: Positive for unexpected weight change. Wt loss -unintentional HENT: Negative. Eyes: Negative. Respiratory: Negative. Cardiovascular: Negative. Gastrointestinal: S/P hernia surgery Endocrine: Negative. Genitourinary: Kidney stones Musculoskeletal: Positive for arthralgias, myalgias, neck pain and neck stiffness. Muscle spasms Skin: psoriasis Allergic/Immunologic: Negative. Neurological: Positive for weakness. Hematological: Bruises/bleeds easily. Vitals: Blood pressure 122/80, pulse 66, temperature 97.8 F (36.6 C), temperature source Temporal, height 1.829 m (6'), weight 112.1 kg (247 lb 2.2 oz), SpO2 99 %. Physical Exam Vitals and nursing note reviewed. Constitutional: Appearance: Normal appearance. He is well-developed. HENT: Head: Normocephalic and atraumatic. Comments: Male pattern alopecia Right Ear: External ear normal. Left Ear: External ear normal. Nose: Nose normal. Mouth/Throat: Mouth: Mucous membranes are moist. Pharynx: Oropharynx is clear. Eyes: Extraocular Movements: Extraocular movements intact and EOM normal. Conjunctiva/sclera: Conjunctivae normal. Pupils: Pupils are equal, round, and reactive to light. Cardiovascular: Rate and Rhythm: Normal rate and regular rhythm. Pulses: Radial pulses are 2+ on the right side and 2+ on the left side. Heart sounds: Normal heart sounds. Pulmonary: Effort: Pulmonary effort is normal. Abdominal: General: Bowel sounds are normal. Palpations: Abdomen is soft. Comments: S/P hernia surgery. Musculoskeletal: Right shoulder: Tenderness present. Decreased range of motion. Left shoulder: Tenderness present. Decreased range of motion. Right upper arm: Tenderness present. Left upper arm: Tenderness present. Right elbow: Decreased range of motion. Left elbow: Decreased range of motion. Right forearm: Normal. Left forearm: Normal. Right wrist: Crepitus present. Decreased range of motion. Left wrist: Decreased range of motion. Right hand: Decreased strength. Left hand: Decreased strength. Cervical back: Neck supple. Right upper leg: Normal. Left upper leg: Normal. Right knee: Decreased range of motion. Tenderness present. Left knee: Decreased range of motion. Tenderness present. Right lower leg: Edema present. Left lower leg: Edema present. Right ankle: Decreased range of motion. Left ankle: Decreased range of motion. Comments: crep L elbow Skin: General: Skin is warm and dry. Comments: Psoriasis on hands - severe with onychodystrophy - improved Spots psoriasis arms and legs -imporved Neurological: Mental Status: He is alert and oriented to person, place, and time. Cranial Nerves: Cranial nerves 2-12 are intact. Sensory: Sensation is intact. Motor: Weakness present. 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 Oriented to person, place, and time. Cranial Nerves CN III, IV, : Extraocular movements intact bilaterally. Extraocular movements intact bilaterally. Pupils equal round and reactive to light bilaterally. Sensory Normal sensation. 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 Assessment and Plan Encounter Diagnoses Name Primary? 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 Plaque psoriasis Psoriasis SAPHO syndrome History of kidney stones 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 arthritis Long-term current use of high risk medication other than anticoagulant 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, custodial, current use Vitamin D deficiency DDD (degenerative disc disease), cervical Impingement syndrome of both shoulders Osteoarthritis of cervical spine, unspecified spinal osteoarthritis complication status Osteoarthritis of both acromioclavicular joints Osteoarthritis of both glenohumeral joints Osteoarthritis of both hands, unspecified osteoarthritis type Osteoarthritis of both hips, unspecified osteoarthritis type Osteoarthritis of both wrists, unspecified osteoarthritis type Primary osteoarthritis of both knees 1. Time was spent with the patient today in education in re: to all their medical conditions. A complete H&P&ROS was obtained and is either in this note or in the EHR. Please do not hesitate to contact me with any questions or concerns re: this patient. Past History Past medical, surgical, family, and social histories have been reviewed and updated with the patient today and are located elsewhere in the medical record. 2. Thank you for allowing me to participate in the care of your patient. With your permission I would like to F/U with your patient. 3. Hgb was low at 12.7 4. COUNTY DEMONSTRATOR was elevated at 1.53 with GFR of 47 5. Allergy to Humira - makes the psoriasis worse 6. Allergy to Cosentyx - makes the psoriasis worse 7. Call if need Rx's 8 Enbrel did not help 9. Remicade did not help 10. Methotrexae did not help 11. Otezla did not help 12. Chronic Pain Management F/U per Dr. Solano in [place]. 13. TB test was negative 14. Negative HLA-B27, ANCA, JOVAN, Hep A&B&C serology, Celiac, CCP, 15. CLAUDIA level was normal at 29 16. Hold Methtorexate week before, week during and, week after any surgery. Hold 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 any time have an infection can restart once off of ATB and/or antiviral and free of infection. Hold 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 week before, week during and, week after any live attenuated vaccine (shingles). Monitor CBC/LFT/Renal func every 2-3 months on 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. Hold 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 anytime there is an open wound and can restart once wound has healed 17. Hold Taltz month before and month after any surgery or live vaccine (shingles). Hold taltz anytime have an infection can restart once off of ATB and/or antiviral and free of infection. Hold Taltz anytime have open wound and can restart once wound has healed. 18. ESR was normal at 9 19. Monitor Vit D level every 6 -12 months if remains low rec: eval by endo 20. CRP was negative at < 0.2 and still is at < 0.2 21. Patient declines referral to ortho 22. At patient's request will set up with sports medicine - will try to do that again for the patient but patient declines again 23. Lab on or about 04/11/2023 and every 3 months thereafter 24. Patient stopped Prednisone due to swelling and headaches and wt gain. 07/11/2023 25. Derm F/U per Dr. Bear Antoine and Dr. Bran 26. Repeat Vit D level on or about with copy to PCP 27. Sulindac stopped due to renal insuff 28. F/U with me in 6 months 29. Tatz per dermatology documented in this encounter [facility] 10-23-2022 Note HPI Staff Glenda is a 57 year old male patient presenting to the office in need of a referral for kidney stones. 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 Establish Care: History:htn, Heart dx. psoriasis, Any previous diagnosis: History of seeing any specialist: Dr Antoine, Dr Vale, pain management [place] When was your last doctors visit: Last provider: Natty Any recent labs: Mar 2022 Health Maintenance UTD: Colonoscopy: no, would like an order PSA: no covid: UTD Acute: Current issues/complaints: pt has history of kidney stone and would like a referral to se a urologist. Pt states he will pass at least 1-2 stones a week, Ongoing for over 2 years. History of Present Illness Glenda Buckley is a 57-year-old male who presents today for an evaluation. The patient states that he has kidney stones. He has been passing a lot of kidney stones. Some of them are not tiny. He has never seen a urologist for this. He told Dr. Luz about it and had an ultrasound done, it confirms that he has kidney stones, but was never prescribed with anything. He drinks a lot of water every day. He drinks more than 100 ounces of water. He sees pain management for his back and neck pain. He sees one at the hospital in [place]. Last 10/16/2022, he had injections in his back for his pain. He does not live with anyone. He is single. He likes to do things, but he does not have anybody that wants to do anything with them. He has been down and depressed. He states that occasionally, he gets an outburst that he can say nasty things that should not be said to his coworkers and his friends. 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 He wants to find out why he is always in a situation like this. Sometimes he does not want to do things but has to be at work at 6:00 AM and he wakes up at 4:30 AM every day. He likes his job, but there are times that he gets irritated to his co-workers. He would like to try medication to help with this. He sees a battery tester, Dr. Vale in [place] for his psoriasis and joints. He is going to have lab work done for him after his appointment here. He denies any heart issues or diabetes. He has been with Dr. Luz since 2018. Review of Systems PHQ Score Initial Depression Screen Score: 1 Physical Exam Vitals & Measurements HR: 78(Peripheral) BP: 132/90 SpO2: 99% HT: 71 in HT: 180.3 cm WT: 109.1 kg WT: 240.02 lb BMI: 33.56 General: alert, no acute distress Cardiovascular: regular rate and rhythm, normal peripheral perfusion Respiratory: Lungs CTA, respirations non labored Extremities: no deformity, no trauma Neurological: oriented x 4, LOC appropriate for age, CN II-XII intact, motor strength equal & normal bilaterally, Patient does seem to have a hesitancy in his speech. Assessment/Plan 1. Kidney stones (N20.0: Calculus of kidney) We will check lab work today because I do not want there to be a concern for renal function when looking at medication. At this time, we will start the patient on Wellbutrin to see if this helps with some of the mood and depression. We will see the patient back in 4 weeks' time to discuss further 2. Essential hypertension (I10: Essential (primary) hypertension) Patient is doing well on his amlodipine. We will refill as needed. We will continue to monitor. 3. Anxiety (F41.9: Anxiety disorder, unspecified) We will try Wellbutrin for this to see if this helps. We will see the patient back in 4 to 6 weeks to double check. 4. Vitamin D deficiency (E55.9: Vitamin D deficiency, unspecified) This has been ordered today. We will follow along and address if needed. 5. Atherosclerotic heart disease of [place] coronary artery with angina pectoris (I25.119: Atherosclerotic heart disease of [place] coronary artery with unspecified angina pectoris) Patient states he has not had any heart issues at this time. We will check cholesterol levels and see if he needs to be on statin medication. 6. Anemia (D64.9: Anemia, unspecified) Unsure what type of anemia, so CBC has been ordered today. 7. Spasm of back muscles (M62.830: Muscle spasm of back) Patient sees pain management for this. 8. 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 Lab work has been ordered. 9. Non-smoker (Z78.9: Other specified health status) Please continue not to smoke. 10. BMI 33.0-33.9,adult (Z68.33: Body mass index [BMI] 33.0-33.9, adult) BMI education given. We will see the patient back in 4 to 6 weeks. Portions of this record may have been created with voice recognition artificial intelligence software, specifically [employer], [employer] and or [employer]. Substitutions may have occurred due to the inherent limitations of voice recognition and artificial intelligence software. Documentation services were performed after patient or guardian consented to allow [employer] to record this visit. RED Documentati (more content not included)... [facility] Comment on above: Result Comment: Elec tronically Signed By: German Carrion MD\.br\Date and Time Signed: 10/23/22 12:16 EDT\.br\Electronically Co-Signed By: Rola Peguero\.br\Date and Time Co-Signed: 10/20/22 10:48 EDT 07-25-2022 History of Present illness Narrative History of Present Illness Patient states he seen a engineering technician Dr. Fawad Driver but they did not help treat is psoriasis. DX with PsA 2011. Humira and cosentyx made the psoriasis worse and 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 and Enbrel and Remicade and otezla quit working. Stelara started 05/2018. Stelara has been helping and not bothering the patient. Stelara stopped by derm 04/2021. Taltz started by derm 05/2021. Taltz is helping and not bothering the patient. Presence of Pain: complains of pain/discomfort Pain Location: back, knee, right, knee, left, shoulder, right, shoulder, left Select Pain Scale: DVPRS (Defense and Veterans Pain Rating Scale) (Adult-Cognitively Intact) DVPRS: Rest: 8- severe pain Select Pain Scale: DVPRS (Defense and Veterans Pain Rating Scale) (Adult-Cognitively Intact). Total time spent in this encounter was 38 minutes. Six month follow up for psoriatic arthritis. Reports is experiencing more muscle spasms in his legs, feels condition is worsening some. Patient is still trying to lose wt. Weakness is arm and hands sometimes on L side. Still bruising easy. Muscle spasms are worse. Joint pain is yes. Neck pain is yes. A lot. Psoriasis/Rash is a lot better. Just a couple spots. I have been told that patient is on a high risk medication as it either treats cancer or requires blood work every 2-3 months. Taltz is once a month. Review of Systems Constitutional: Positive for unexpected weight change. Wt loss - intentional HENT: Negative. Eyes: Negative. Respiratory: Negative. Cardiovascular: Negative. Gastrointestinal: S/P hernia surgery Endocrine: Negative. Genitourinary: Kidney stones Musculoskeletal: Positive for arthralgias, myalgias, neck pain and neck stiffness. Muscle spasms Skin: psoriasis Allergic/Immunologic: Negative. Neurological: Positive for weakness. Hematological: Bruises/bleeds easily. Psychiatric/Behavioral: Negative. Vitals: Blood pressure 108/76, pulse 64, resp. rate 18, height 1.829 m (6'), weight 112.1 kg (247 lb 3.2 oz), SpO2 99 %. Physical Exam Vitals and nursing note reviewed. Constitutional: Appearance: Normal appearance. He is well-developed. HENT: Head: Normocephalic and atraumatic. Comments: Male pattern alopecia Right Ear: External ear normal. Left Ear: External ear normal. Nose: Nose normal. Mouth/Throat: Mouth: Mucous membranes are moist. Pharynx: Oropharynx is clear. Comments: Mask Eyes: Extraocular Movements: Extraocular movements intact and EOM normal. Conjunctiva/sclera: Conjunctivae normal. Pupils: Pupils are equal, round, and reactive to light. Cardiovascular: Rate and Rhythm: Normal rate and regular rhythm. Pulses: Radial pulses are 1+ on the right side and 1+ on the left side. Heart sounds: Normal heart sounds. Pulmonary: Effort: Pulmonary effort is normal. Abdominal: General: Bowel sounds are normal. Palpations: Abdomen is soft. Comments: S/P hernia surgery. Musculoskeletal: Right shoulder: Tenderness present. Decreased range of motion. Left shoulder: Tenderness present. Decreased range of motion. Right upper arm: Tenderness present. Left upper arm: Tenderness present. Right elbow: Decreased range of motion. Left elbow: Decreased range of motion. Right forearm: Normal. Left forearm: Normal. Right wrist: Crepitus present. Decreased range of motion. Left wrist: Decreased range of motion. Right hand: Decreased range of motion. Decreased strength. Left hand: Decreased range of motion. Decreased strength. Cervical back: Neck supple. Right upper leg: Normal. Left upper leg: Normal. Right knee: Decreased range of motion. Left knee: Decreased range of motion. Right lower le+ Edema present. Left lower le+ Edema present. Right ankle: Decreased range of motion. Left ankle: Decreased range of motion. Comments: crep L elbow Skin: General: Skin is warm and dry. Comments: Psoriasis on hands - severe with onychodystrophy - improved Spots psoriasis arms and legs -imporved Neurological: Mental Status: He is alert and oriented to person, place, and time. Cranial Nerves: Cranial nerves 2-12 are intact. Sensory: Sensation is intact. Motor: Weakness present. 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 Behavior: Behavior normal. Thought Content: Thought content normal. Judgment: Judgment normal. Neurological Exam Mental Status Alert. Oriented to person, place, and time. Cranial Nerves CN III, IV, : Extraocular movements intact bilaterally. Extraocular movements intact bilaterally. Pupils equal round and reactive to light bilaterally. Sensory Normal sensation. 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 Assessment and Plan Encounter Diagnoses Name Primary? 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) Long-term current use of high risk medication other than anticoagulant 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, long term care pharmacist, current use Abnormal renal function test Vitamin D deficiency DDD (degenerative disc disease), cervical Impingement syndrome of both shoulders Osteoarthritis of cervical spine, unspecified spinal osteoarthritis complication status Osteoarthritis of both acromioclavicular joints Osteoarthritis of both glenohumeral joints Osteoarthritis of both hands, unspecified osteoarthritis type Osteoarthritis of both hips, unspecified osteoarthritis type Osteoarthritis of both wrists, unspecified osteoarthritis type Primary osteoarthritis of both knees 1. Time was spent with the patient today in education in re: to all their medical conditions. A complete H&P&ROS was obtained and is either in this note or in the EHR. Please do not hesitate to contact me with any questions or concerns re: this patient. Past History Past medical, surgical, family, and social histories have been reviewed and updated with the patient today and are located elsewhere in the medical record. 2. Thank you for allowing me to participate in the care of your patient. With your permission I would like to F/U with your patient. 3. Hgb is low at 12.7 4. COUNTY DEMONSTRATOR is elevated at 1.53 with GFR of 47 5. Allergy to Humira - makes the psoriasis worse 6. Allergy to Cosentyx - makes the psoriasis worse 7. Monitor CBC/LFT/Renal func every 6-12 months as long as patient is on daily NSAID 8 Enbrel did not help 9. Remicade did not help 10. Methotrexae did not help 11. Otezla did not help 12. Chronic Pain Management F/U per Dr. Solano in [place]. 13. TB test was negative 14. Negative HLA-B27, ANCA, JOVAN, Hep A&B&C serology, Celiac, CCP, 15. CLAUDIA level was normal at 29 16. Hold Methtorexate week before, week during and, week after any surgery. Hold 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 any time have an infection can restart once off of ATB and/or antiviral and free of infection. Hold 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 week before, week during and, week after any live attenuated vaccine (shingles). Monitor CBC/LFT/Renal func every 2-3 months on 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. Hold 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 anytime there is an open wound and can restart once wound has healed 17. Hold Taltz month before and month after any surgery or live vaccine (shingles). Hold taltz anytime have an infection can restart once off of ATB and/or antiviral and free of infection. Hold Taltz anytime have open wound and can restart once wound has healed. 18. ESR was normal at 4 and still is at 9 19. Monitor Vit D level every 6 -12 months if remains low rec: eval by endo 20. CRP was negative at 0.2 and still is at < 0.2 21. Patient declines referral to ortho 22. At patient's request will set up with sports medicine - will try to do that again for the patient but patient declines again 23. Lab on or about 10/19/2022 and every 2 months thereafter 24. Patient stopped Prednisone due to swelling and headaches and wt gain. 25. Derm F/U per Dr. Bear Antoine and Dr. Bran 26. Repeat Vit D level on or about with copy to PCP 27. Rx given to decrease Sulindac to 1 pill every other day 28. Repeat Kidney tests on or about 08/10/2022 29. F/U with me in 6 months 30. Repeat Vit D level on or about 01/19/2023 with copy to PCP documented in this encounter [facility] 06-17-2022 Evaluation note Encounter Date Diagnosis Assessment Notes May, Balanitis (ICD-10 - N48.1) Balanitis home care material was printed Drink plenty fluids, get plenty of rest. Continue home medications as prescribed. Take the Medrol Dosepak as prescribed until gone. Do not apply any creams or ointments to the penis. Avoid using any kind of hair removal products near the penis. Follow-up with your family doctor for recheck this week. [employer] Other 03-14-2023 NoteCONSULTATION CONSULTATION DATE: 06/13/2022 FOLLOW UP NOTE TO: Dr. Luz CHIEF COMPLAINT: Includes severe bilateral lower back pain. Patient appears to be complaining of 5-7/10 pain in his lower back, occurring bilaterally, worse on the left than the right side, described as sharp pain, increases with activity such as standing, walking and performing transitioning maneuvers. Patient feels most comfortable in the semi-recumbent position. Denies any change in bowel and bladder habits or new sensorimotor change in the lower extremities. EXAM: Notable for patient having no clinical radiculopathy or myelopathy involving the lower extremities. Patient did have severe pain with lumbar facet loading maneuvers occurring bilaterally, worse on the left than the right side, from L4 through S1. Patient did have dysesthesia and hypoesthesia along the distribution of the lateral cutaneous branch of the iliohypogastric nerve on the left side. IMPRESSION: Patient has chronic pain associated with lumbosacral spondylosis with facet related pain clinically, left worse than right, from L4 through S1; neuritis involving the lateral cutaneous branch of the iliohypogastric nerve, most significant on the left than the right side and lastly myofascial spasm. PLAN: I have discontinued baclofen. I have added Zanaflex 4 mg pills, half to one b.i.d. I have asked him to decrease the use of Cocolalla to 45 pills to last him one month's time. He just recently had a prescription filled for Cocolalla 60 pills. I have asked him to make this last for six weeks. We will have him return to the office in six weeks' time or sooner if needed.[facility] [id number] NoteCONSULTATION CONSULTATION DATE: 02/16/2022 HISTORY OF PRESENT ILLNESS: This is a pleasant, 56-year-old gentleman returning to the clinic for a three month follow up for chronic neck and lower back pain. The patient had radiofrequency ablations to his cervical area in August of 2021. Patient has had pain improvement since then, but does have residual tightness. Medications currently include diclofenac 75 mg b.i.d., Cocolalla 5/325 b.i.d., gabapentin 300 mg b.i.d. and amitriptyline. He does take oyster shell calcium and is compliant with a multivitamin. He is complaining today of new symptomatology which includes bilateral lower leg cramping throughout the day and night, as well as radiating pain from his back to his hips and to his anterior thighs. He denies any recent falls or injuries. 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 That aggravates his pain. Patient's REVIEW OF SYSTEMS / PAST MEDICAL HISTORY / ALLERGIES and IMAGES have been reviewed and they are noted on the chart. PHYSICAL EXAM: VITAL SIGNS: Blood pressure 118/78, heart rate is 86. Temperature is 97.8. He is 5'11 , weighs 160 kg. GENERAL IMPRESSION: Pleasant, appropriate, no acute distress. FOCUSED EXAM - NECK: Range of motion is functional in lateral rotation and flexion/extension. Bilateral cervical trapezius muscles are taut but non-spasmodic. No reproduction of spinal axial pain upon compression of the cervical facets. LUMBAR: Compression along the facets of L2, L3 and L4, L5 produce a jump response and fullness is palpated as well, indicative of facet arthropathy, lumbar spondylosis. Paravertebral muscles are taut but non-spasmodic. Farshad's point is non-tender bilaterally. Negative FABERs and compression test. MUSCULOSKELETAL: Motor is 5/5 bilaterally with good muscle tone. Patient walks with a stable gait. NEUROLOGICALLY: Patchy hypoesthesia to bilateral upper extremities. Lower extremities are intact. +2 bilateral patellar reflexes. DIAGNOSIS: Lumbar degenerative disc disease, lumbar spondylosis, spinal axial lower back pain, cervicalgia. PLAN: I reviewed with the patient a former lumbar x-ray which does show degenerative disc disease as well as osteoarthritis to his lumbar facets. Considering his new symptomatology, patient has agreed to move forward with the rhizotomy series, starting with the #1 bilateral MBB of L2, L3 and L4, L5. I did recommend a neck gator for the winter months, and we will refill his calcium prescription. We will send him for physical therapy for insurance requirement prior to his injections. This will be the 2-3 times a week for four weeks. We will also start him on baclofen 10 mg q.h.s. as a muscle relaxer. Patient agrees to move forward and will be followed up in the clinic following his procedure.[facility] [id number] History of Present illness Narrative* Tra Vale Jr., DO - 01/10/2022 8:30 AM EDT History of Present Illness Patient states he seen a engineering technician Dr. Fawad Driver but they did not help treat is psoriasis. DX with PsA 2011. Humira and cosentyx made the psoriasis worse and 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 and Enbrel and Remicade and otezla quit working. Stelara started 05/2018. Stelara has been helping and not bothering the patient. Stelara stopped by derm 04/2021. Taltz started by derm 05/2021. Presence of Pain: complains of pain/discomfort Pain Location: (Everywhere) Select Pain Scale: DVPRS (Defense and Veterans Pain Rating Scale) (Adult- Cognitively Intact) DVPRS: Rest: 8- severe pain DVPRS: Activity: 8- severe pain Select Pain Scale: DVPRS (Defense and Veterans Pain Rating Scale) (Adult- Cognitively Intact) Pain Frequency: constant Pain Quality: aching. Total time spent in this encounter was 30 minutes. Patient is being evaluatedfor an unstable chronic illness that increase morbidity and mortality. Patient is here today for his 6 Month F/U. 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 Patient states he has joint pain every day. Patient states he is still trying to loose wt. Weakness is hands and feet. Still bruises easy sometimes. Joint pain is all the times. Muscle pain is all the time. Neck pain is yes. Psoriasis/Rash is a lot better. I have been told that patient is on a high risk medication as it either treats cancer or requires blood work every 2-3 months. Taltz is every month. Patienthad blood work done in 10/2021 but I do not have the results and will try to track those down. Review of Systems Constitutional: Positive for unexpected weight change. Wt loss - intentional HENT: Negative. Eyes: Negative. Respiratory: Negative. Cardiovascular: Negative. Gastrointestinal: S/P hernia surgery Endocrine: Negative. Genitourinary: Negative. Musculoskeletal: Positive for arthralgias, gait problem, myalgias, neck pain and neck stiffness. Muscle spasms Skin: psoriasis Allergic/Immunologic: Negative. Neurological: Positive for weakness. Hematological: Bruises/bleeds easily. Psychiatric/Behavioral: Negative. Vitals: Blood pressure 116/78, pulse 71, temperature 98 F (36.7 C), temperature source Temporal, height 1.829 m (6'), weight 121.1 kg (267 lb), SpO2 98 %. Physical Exam Vitals and nursing note reviewed. Constitutional: Appearance: Normal appearance. He is well-developed. He is obese. HENT: Head: Normocephalic and atraumatic. Comments: Male pattern alopecia Right Ear: External ear normal. Left Ear: External ear normal. Nose: Nose normal. Mouth/Throat: Mouth: Mucous membranes are moist. Pharynx: Oropharynx is clear. Comments: Mask Eyes: Extraocular Movements: Extraocular movements intact and EOM normal. Conjunctiva/sclera: Conjunctivae normal. Pupils: Pupils are equal, round, and reactive to light. Cardiovascular: Rate and Rhythm: Normal rate and regular rhythm. Pulses: Radial pulses are 2+ on the right side and 2+ on the left side. Heart sounds: Normal heart sounds. Pulmonary: Effort: Pulmonary effort is normal. Abdominal: General: Bowel sounds are normal. Palpations: Abdomen is soft. Comments: S/P hernia surgery. Obese Musculoskeletal: Right shoulder: Tenderness present. Decreased range of motion. Left shoulder: Tenderness present. Decreased range of motion. Right upper arm: Tenderness present. Left upper arm: Tenderness present. Right elbow: Decreased range of motion. Tenderness present. Left elbow: Decreased range of motion. Tenderness present. Right forearm: Normal. Left forearm: Normal. Right wrist: Decreased range of motion. Left wrist: Decreased range of motion. Right hand: Decreased range of motion. Decreased strength. Left hand: Decreased range of motion. Decreased strength. Cervical back: Neck supple. Right upper leg: Normal. Left upper leg: Normal. Right knee: Decreased range of motion. Left knee: Decreased range of motion. Right lower le+ Edema present. Left lower le+ Edema present. Right ankle: Decreased range of motion. Left ankle: Decreased range of motion. Skin: General: Skin is warm and dry. Comments: Psoriasis on hands - severe with onychodystrophy - improved Spots psoriasis arms and legs -imporved Neurological: Mental Status: He is alert and oriented to person, place, and time. Cranial Nerves: Cranial nerves 2-12 are intact. Sensory: Sensation is intact. Motor: Weakness present. 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 Behavior: Behavior normal. Thought Content: Thought content normal. Judgment: Judgment normal. Neurological Exam Mental Status Alert. Oriented to person, place, and time. Cranial Nerves CN III, IV, : Extraocular movements intact bilaterally. Extraocular movements intact bilaterally.Pupils equal round and reactive to light bilaterally. Sensory Normal sensation. 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 Assessment and Plan Encounter Diagnoses Name Primary? 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 Time was spent with the patient today in education in re: to all their medical conditions. A complete H&P&ROS was obtained and is either in this note or in the EHR. Please do not hesitate to contact me with any questions or concerns re: this patient. Past History Past medical, surgical, family, and social histories have been reviewed and updated with the patient today and are located elsewhere in the medical record. 2. Thank you for allowing me to participate in the care of your patient. With your permission I would like to F/U with your patient. 3. Hgb was low at 13.1 and is now normal at 14.2 4. Call if need Rx's 5. Allergy to Humira - makes the psoriasis worse 6. Allergy to Cosentyx - makes the psoriasis worse 7. Monitor CBC/LFT/Renal func every 6-12 months as long as patient is on daily NSAID 8 Enbrel did not help 9. Remicade did not help 10. Methotrexae did not help 11. Otezla did not help 12. Chronic Pain Management F/U per Dr. Solano in [place]. 13. TB test was negative 14. Negative HLA-B27, ANCA, JOVAN, Hep A&B&C serology, Celiac, CCP, 15. CLAUDIA level was normal at 29 16. Hold Methtorexate week before, week during and, week after any surgery. Hold 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 any time have an infection can restart once off of ATB and/or antiviral and free of infection. Hold 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 week before, week during and, week after any live attenuated vaccine (shingles). Monitor CBC/LFT/Renal func every 2-3 months on 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. Hold 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 anytime there is an open wound and can restart once wound has healed 17. Hold Taltz month before and month after any surgery or live vaccine (shingles). Hold taltz anytime have an infection can restart once off of ATB and/or antiviral and free of infection. Hold Taltzanytime have open wound and can restart once wound has healed. 18. ESR was normal at 13 and still is at 4 19. Monitor Vit D level every 6 -12 months if remains low rec: eval by endo 20. CRP was negative at 0.7 and still is at 0.2 21. Patient declines referral to ortho 22. At patient's request will set up with sports medicine - will try to do that again for the patient but patient declines again 23. Lab on or about 01/16/2022 and every 2 months thereafter 24. Patient stopped Prednisone due to swelling and headaches and wt gain. 25. Derm F/U per Dr. Bear Antoine and Dr. Bran 26. F/U with me in 6 months documented in this encounterOhio[facility]-2022 NoteCONSULTATION PROCEDURE DATE: 11/24/2021 PROCEDURE NOTE PREOPERATIVE DIAGNOSIS: Bilateral cervical trapezius spasms POSTOPERATIVE DIAGNOSIS: Bilateral cervical trapezius spasms. PROCEDURE: Bilateral cervical trapezius trigger point injections x2. Subsequent to obtaining informed consent, the patient was placed in a sitting upright neutral position. Alcohol prep was used to sterilize the sites. A 25 gauge needle with 0.125% Marcaine and 40 mg of Kenalog was divided into two locations. The needle was placed to rest inside the trigger zone. Negative heme. Medication was injected in both locations in a fan-like pattern. Patient tolerated the procedure well with no overt complications and he will be followed up in the office.[facility] [id number] NoteCONSULTATION CONSULTATION DATE: 10/27/2021 HISTORY OF PRESENT ILLNESS: This is a 56-year-old gentleman, returning to the clinic status post bilateral cervical RFA of C5, C6 and C7, T1 completed on 09/20/2021. The patient reported 10% relief for the first three days and reported increased pain. The pain has subsided, but he states he has tightness in his neck with twisting and turning, and is experiencing a throbbing, pounding feeling. With activities, pain goes up to 9/10. Lifting, flexion and pushing/pulling aggravates his pain further. He is currently not using heat or ice or a menthol heat rub. Current medications include Cocolalla 5/325 b.i.d., diclofenac 75 mg b.i.d., gabapentin 300 mg b.i.d. and amitriptyline 20 mg daily. He has diffuse numbness and tingling to both upper and lower extremities. Patient's REVIEW OF SYSTEMS / PAST MEDICAL HISTORY / ALLERGIES and IMAGES have been reviewed and they are noted on the chart. PHYSICAL EXAM: VITAL SIGNS: Blood pressure 136/88, heart rate is 78. Temperature is 97.1. He is 5'11 and weighs 129 kg. GENERAL APPEARANCE: Pleasant, appropriate, in no acute distress, but uncomfortable in the chair. FOCUSED EXAM - NECK: Range of motion slightly limited in lateral rotation and extension. Flexion is intact. No reproduction of spinal axial pain to compression of the cervical facets, indicative of successful RFA. Bilateral trapezius muscles very taut with trigger points identified on either side bilaterally. Compression reproduces the patient's pain pattern. MUSCULOSKELETAL: Motor is intact upper extremities 4/5. Decent muscle tone. NEUROLOGICAL: Diffuse neuropathy to upper and lower extremities. Bilateral brachioradialis reflex +1. IMPRESSION: Cervical spasm, cervical spondylosis, cervical degenerative disc. PLAN: We will pre-authorize for bilateral cervical trigger point injections. This will be in the cervical trapezius muscle on the left and the right side, and we will use 0.125 mg of Marcaine and 40 mg of Kenalog divided into two locations for a total dose of 20 mg of Kenalog in each spot. In the meantime, the patient was instructed to use a menthol heat rub, such as Vicks VapoRub and apply heat 1-2 times daily. Patient will be called back upon approval of the trigger point injection and brought back to the office. Patient agrees with this plan of care.[facility] [id number] History of Present illness Narrative* Tra Pedro Vale Jr., DO - 07/12/2021 8:30 AM EDT History of Present Illness Patient states he seen a engineering technician Dr. Fawad Driver but they did not help treat is psoriasis. DX with PsA 2011. Humira and cosentyx made the psoriasis worse and 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 and Enbrel and Remicade and otezla quit working. Stelara started 05/2018. Angelina has been helping and not bothering the patient. Presence of Pain: complains of pain/discomfort Pain Location: (Everywhere) Select Pain Scale: DVPRS (Defense and Veterans Pain Rating Scale) (Adult- Cognitively Intact) DVPRS: Rest: 7- severe pain DVPRS: Activity: 7- severe pain Select Pain Scale: DVPRS (Defense and Veterans Pain Rating Scale) (Adult- Cognitively Intact) Pain Frequency: constant Pain Quality: aching. Total time spent in this encounter was 23 minutes. Patient is being evaluatedfor an unstable chronic illness that increase morbidity and mortality. Patient is still losing wt. Weakness is yes. Hands and arms and legs once in a while but not all the time. Joint pain is yes. Muscle pain is yes. Neck pain is yes. Psoriasis/Rash is the same and it is not too bad. Patient is here today for his 6 Month F/U. Patient states he still has good days and bad days. Patient states he still has mild joint pain every day. Patient states the Stelara is working good and helping with his joint pain. Stelara is every 3 months. I have been told that patient is on a high risk medication asit either treats cancer or requires blood work every 2-3 months. Review of Systems Constitutional: Positive for unexpected weight change. Wt loss - intentional HENT: Negative. Eyes: Negative. Respiratory: Negative. Cardiovascular: Negative. Gastrointestinal: S/P hernia surgery Endocrine: Negative. Genitourinary: Negative. Musculoskeletal: Positive for arthralgias, gait problem, myalgias, neck pain and neck stiffness. Skin: Positive for rash. psoriasis Allergic/Immunologic: Negative. Neurological: Positive for weakness. Hematological: Bruises/bleeds easily. Psychiatric/Behavioral: Negative. Vitals: Blood pressure 126/76, pulse 70, temperature 98 F (36.7 C), temperature source Temporal, height 1.829 m (6'), weight 128.8 kg (284 lb), SpO2 97 %. Physical Exam Vitals and nursing note reviewed. Constitutional: Appearance: Normal appearance. He is well-developed. He is obese. HENT: Head: Normocephalic and atraumatic. Comments: Male pattern alopecia Right Ear: External ear normal. Left Ear: External ear normal. Nose: Nose normal. Mouth/Throat: Mouth: Mucous membranes are moist. Pharynx: Oropharynx is clear. Comments: Mask Eyes: Extraocular Movements: Extraocular movements intact and EOM normal. Conjunctiva/sclera: Conjunctivae normal. Pupils: Pupils are equal, round, and reactive to light. Cardiovascular: Rate and Rhythm: Normal rate and regular rhythm. Pulses: Radial pulses are 2+ on the right side and 2+ on the left side. Heart sounds: Normal heart sounds. Pulmonary: Effort: Pulmonary effort is normal. Abdominal: General: Bowel sounds are normal. Palpations: Abdomen is soft. Comments: S/P hernia surgery. Obese Musculoskeletal: Right shoulder: Tenderness present. Decreased range of motion. Left shoulder: Tenderness present. Decreased range of motion. Right upper arm: Tenderness present. Left upper arm: Tenderness present. Right elbow: Decreased range of motion. Left elbow: Decreased range of motion. Right forearm: Normal. Left forearm: Normal. Right wrist: Decreased range of motion. Left wrist: Decreased range of motion. Right hand: Decreased strength. Left hand: Decreased strength. Cervical back: Neck supple. Right upper leg: Normal. Left upper leg: Normal. Right knee: Decreased range of motion. Left knee: Decreased range of motion. Right lower le+ Edema present. Left lower le+ Edema present. Right ankle: Decreased range of motion. Left ankle: Decreased range of motion. Skin: General: Skin is warm and dry. Comments: Psoriasis on hands - severe with onychodystrophy - improved Spots psoriasis arms and legs -imporved Neurological: Mental Status: He is alert and oriented to person, place, and time. Cranial Nerves: Cranial nerves are intact. Sensory: Sensation is intact. Motor: Weakness present. 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 Behavior: Behavior normal. Thought Content: Thought content normal. Judgment: Judgment normal. Neurological Exam Mental Status Alert. Oriented to person, place, and time. Cranial Nerves CN III, IV, : Extraocular movements intact bilaterally. Extraocular movements intact bilaterally.Pupils equal round and reactive to light bilaterally. Sensory Normal sensation. 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 Assessment and Plan Encounter Diagnoses Name Primary? 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) 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 arthritis Vitamin D deficiency Primary osteoarthritis of both knees Osteoarthritis of both wrists, unspecified osteoarthritis type Osteoarthritis of both hips, unspecified osteoarthritis type Osteoarthritis of both hands, unspecified osteoarthritis type Osteoarthritis of both glenohumeral joints Osteoarthritis of both acromioclavicular joints Osteoarthritis of cervical spine, unspecified spinal osteoarthritis complication status Impingement syndrome of both shoulders DDD (degenerative disc disease), cervical 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 Time was spent with the patient today in education in re: to all their medical conditions. A complete H&P&ROS was obtained and is either in this note or in the EHR. Please do not hesitate to contact me with any questions or concerns re: this patient. Past History Past medical, surgical, family, and social histories have been reviewed and updated with the patient today and are located elsewhere in the medical record. 2. Thank you for allowing me to participate in the care of your patient. With your permission I would like to F/U with your patient. 3. Hgb is low at 13.1 4. Rx given for Clobetasol ointment 5. Allergy to Humira - makes the psoriasis worse 6. Allergy to Cosentyx - makes the psoriasis worse 7. Monitor CBC/LFT/Renal func every 6-12 months as long as patient is on daily NSAID 8 Enbrel did not help 9. Remicade did not help 10. Methotrexae did not help 11. Otezla did not help 12. Chronic Pain Management F/U per Dr. Solano in [place]. 13. TB test was negative 14. Negative HLA-B27, ANCA, JOVAN, Hep A&B&C serology, Celiac, CCP, 15. CLAUDIA level was normal at 29 16. Hold Methtorexate week before, week during and, week after any surgery. Hold 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 any time have an infection can restart once off of ATB and/or antiviral and free of infection. Hold 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 week before, week during and, week after any live attenuated vaccine (shingles). Monitor CBC/LFT/Renal func every 2-3 months on 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. Hold 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 anytime there is an open wound and can restart once wound has healed 17. Patient should hold Stelera month before and month after surgery or live vaccine (shingles). Patient should hold Stelera if infection can restart once off of ATB and/or antiviral and free of infection. Hold Stelera if open wound can restart once wound has healed. 18. ESR was normal at 8 and still is at 13 19. Monitor Vit D level every 6 -12 months if remains low rec: eval by endo 20. CRP was negative at < 0.5 and still is at 0.7 21. Patient declines referral to ortho 22. At patient's request will set up with sports medicine - will try to do that again for the patient but patient declines again 23. Lab on or about 07/12/2021 and every 2 months thereafter 24. Patient stopped Prednisone due to swelling and headaches and wt gain. 25. Derm F/U per Dr. Bear Antoine. 26. Derm wants to change Raghavlara to Taltz 27. F/U with me in 6 months documented in this encounterOhio[facility] HospitalEvaluation + Plan note Future Appointments Appointment Date:11/15/2022 04:40:00 PM Scheduled Provider:German Carrion MD Location:[facility] Future Appointments Appointment Date:02/15/2023 11:20:00 AM Scheduled Provider:German Carrion MD Location:[facility] Appointment Type: Open Diagnostic Tests Pending * Comprehensive Metabolic Panel 11/15/22 * Vitamin B12 Level 11/15/22 * Folate Level 11/15/22 [facility] note* Diagnosis 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 Psoriatic arthritis Psoriatic arthropathy Psoriatic spondylitis Psoriatic arthropathy Psoriasis Other psoriasis Plaque psoriasis Other psoriasis Anemia, unspecified type 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, custodial, current use Encounter for long-term (current) use of other medications Long-term current use of high risk medication 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 than 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 Encounter for long-term (current) use of steroids care 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) Encounter for long-term (current) use of non-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-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 arthritis Personal history of arthritis Vitamin D deficiency Unspecified vitamin D deficiency Primary osteoarthritis of both knees Primary localized osteoarthrosis, lower leg Osteoarthritis of both wrists, unspecified osteoarthritis type Osteoarthritis of both hips, unspecified osteoarthritis type Osteoarthritis of both hands, unspecified osteoarthritis type Osteoarthritis of both glenohumeral joints Osteoarthritis of both acromioclavicular joints Osteoarthritis of cervical spine, unspecified spinal osteoarthritis complication status Impingement syndrome of both shoulders Other affections of shoulder region, not elsewhere classified DDD (degenerative disc disease), cervical Degeneration of cervical intervertebral disc [facility] Diagnosis Psoriatic arthritis- Primary Psoriatic arthropathy 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 Psoriatic arthropathy Plaque psoriasis Other psoriasis Psoriasis Other psoriasis SAPHO syndrome Traumatic spondylopathy 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 arthritis Personal history of arthritis care 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) Encounter for long-term (current) use of non-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-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 Long-term current use of high risk medication other than anticoagulant 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, long term care pharmacist, current use Encounter for long-term (current) use of other medications Vitamin D deficiency Unspecified vitamin D deficiency documented [facility] this [facility] Diagnosis Psoriatic arthritis- Primary Psoriatic arthropathy 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 Psoriatic arthropathy Macrocytic anemia Unspecified deficiency anemia Plaque psoriasis Other psoriasis Psoriasis Other psoriasis SAPHO syndrome Traumatic spondylopathy History of kidney stones Personal history of urinary calculi 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 arthritis Personal history of arthritis care 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) Encounter for long-term (current) use of non-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-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 Long-term current use of high risk medication other than anticoagulant 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, custodial, current use Encounter for long-term (current) use of other medications Abnormal renal function test Nonspecific abnormal results of kidney function study Vitamin D deficiency Unspecified vitamin D deficiency DDD (degenerative disc disease), cervical Degeneration of cervical intervertebral disc Impingement syndrome of both shoulders Other affections of shoulder region, not elsewhere classified Osteoarthritis of cervical spine, unspecified spinal osteoarthritis complication status Osteoarthritis of both acromioclavicular joints Osteoarthritis of both glenohumeral joints Osteoarthritis of both hands, unspecified osteoarthritis type Osteoarthritis of both hips, unspecified osteoarthritis type Osteoarthritis of both wrists, unspecified osteoarthritis type Primary osteoarthritis of both knees Primary localized osteoarthrosis, lower leg documented in this [facility] Diagnosis Psoriatic arthritis- Primary Psoriatic arthropathy 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 Psoriatic arthropathy Plaque psoriasis Other psoriasis Psoriasis Other psoriasis SAPHO syndrome Traumatic spondylopathy History of kidney stones Personal history of urinary calculi 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 arthritis Personal history of arthritis Long-term current use of high risk medication other than anticoagulant 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, long term care pharmacist, current use Encounter for long-term (current) use of other medications Vitamin D deficiency Unspecified vitamin D deficiency DDD (degenerative disc disease), cervical Degeneration of cervical intervertebral disc Impingement syndrome of both shoulders Other affections of shoulder region, not elsewhere classified Osteoarthritis of cervical spine, unspecified spinal osteoarthritis complication status Osteoarthritis of both acromioclavicular joints Osteoarthritis of both glenohumeral joints Osteoarthritis of both hands, unspecified osteoarthritis type Osteoarthritis of both hips, unspecified osteoarthritis type Osteoarthritis of both wrists, unspecified osteoarthritis type Primary osteoarthritis of both knees Primary localized osteoarthrosis, lower leg documented in this [facility] Narrative - Reported* Type Description Date Medical History [facility] [employer] Other Hospital course Narrative No data available for this section [facility] No data available for this section [facility] No data available for this section [facility] Reason for Referral Status Reason Specialty Diagnoses / Procedures Re ferred By Contact Referred To Contact New Request Multispecialty Diagnoses Psoriatic arthritis 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 Psoriasis Fatigue, unspecified type 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 arthritis care 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) 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, long term care pharmacist, current use Long-term current use of high risk medication other than anticoagulant Lumbosacral spondylosis without myelopathy Disorder of bone and cartilage Plaque psoriasis Cervicalgia Dorsalgia Chronic pain of both shoulders Bilateral elbow joint pain Bilateral wrist pain Bilateral hand pain Chronic pain of both knees Tra Vale Jr., DO [address] [place], [place] [id number] Status Reason Specialty Diagnoses / Procedures Referred By Contact Referred To Contact Pending Review Diagnoses Vitamin D deficiency Tra Vale Jr., [address] [place] [address] Status Reason Specialty Diagnoses / Procedures Re ferred By Contact Referred To Contact New Request Sports Ortho and Primary Care Sports Diagnoses Psoriatic arthritis 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 Psoriasis Anemia, unspecified type care 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) care home current use of 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, custodial, current use Long-term current use of high risk medication other than anticoagulant Vitamin D deficiency Lumbosacral spondylosis without myelopathy Osteoarthritis of cervical spine, unspecified spinal osteoarthritis complication status DDD (degenerative disc disease), cervical Osteoarthritis of both hips, unspecified osteoarthritis type Osteoarthritis of both acromioclavicular joints Osteoarthritis of both glenohumeral joints Impingement syndrome of both shoulders Primary osteoarthritis of both knees Osteoarthritis of both wrists, unspecified osteoarthritis type Osteoarthritis of both hands, unspecified osteoarthritis type Plaque psoriasis Tra Vale Jr., DO [address] [id number] Status Reason Specialty Diagnoses / Procedures Re ferred By Contact Referred To Contact New Request Occupational Therapy Diagnoses Psoriatic arthritis 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 Psoriasis Anemia, unspecified type 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) care home current use of 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, long term care pharmacist, current use Long-term current use of high risk medication other than anticoagulant Vitamin D deficiency Lumbosacral spondylosis without myelopathy Osteoarthritis of cervical spine, unspecified spinal osteoarthritis complication status DDD (degenerative disc disease), cervical Osteoarthritis of both hips, unspecified osteoarthritis type Osteoarthritis of both acromioclavicular joints Osteoarthritis of both glenohumeral joints Impingement syndrome of both shoulders Primary osteoarthritis of both knees Osteoarthritis of both wrists, unspecified osteoarthritis type Osteoarthritis of both hands, unspecified osteoarthritis type Plaque psoriasis Tra Vale Jr., DO [address] [id number] Scheduling Instructions . 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 Psoriasis Anemia, unspecified type care 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) care home current use of 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, custodial, current use Long-term current use of high risk medication other than anticoagulant Vitamin D deficiency Lumbosacral spondylosis without myelopathy Osteoarthritis of cervical spine, unspecified spinal osteoarthritis complication status DDD (degenerative disc disease), cervical Osteoarthritis of both hips, unspecified osteoarthritis type Osteoarthritis of both acromioclavicular joints Osteoarthritis of both glenohumeral joints Impingement syndrome of both shoulders Primary osteoarthritis of both knees Osteoarthritis of both wrists, unspecified osteoarthritis type Osteoarthritis of both hands, unspecified osteoarthritis type Plaque psoriasis Tra Vale Jr., DO [address] [facility] [place] [address] Status Reason Specialty Diagnoses / Procedures Re ferred By Contact Referred To Contact Closed Diagnoses Psoriatic arthritis Psoriatic spondylitis Psoriasis Plaque psoriasis Anemia, unspecified type 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, long term care pharmacist, current use Long-term current use of high risk medication other than 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) 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 arthritis Vitamin D deficiency Primary osteoarthritis of both knees Osteoarthritis of both wrists, unspecified osteoarthritis type Osteoarthritis of both hips, unspecified osteoarthritis type Osteoarthritis of both hands, unspecified osteoarthritis type Osteoarthritis of both glenohumeral joints Osteoarthritis of both acromioclavicular joints Osteoarthritis of cervical spine, unspecified spinal osteoarthritis complication status Impingement syndrome of both shoulders DDD (degenerative disc disease), cervical Tra Vale Jr., DO [address] [facility] [place] [address] History of Present Illness * Tra Vale Jr., - 03/29/2018 7:15 AM EST Formatting of this note may be different from the original. History of Present Illness Presence of Pain: complains of pain/discomfort (03/29/18720), Pain Location: (Everywhere) (03/29/18720), Select Pain Scale: DVPRS (Defense and Veterans Pain Rating Scale) (Adult-Cognitively Intact) (03/29/18720), DVPRS: Rest: 8- severe pain (03/29/18720), DVPRS: Activity: 8- severe pain (03/29/18720), Select Pain Scale: DVPRS (Defense and Veterans Pain Rating Scale) (Adult- Cognitively Intact) (03/29/18720), Pain Frequency: constant (03/29/18720), Pain Quality: aching (03/29/18720) Due to patient's coexisting health problems and co-morbidities treatment is and will be very difficult. Patient was sent by his PCP Dr. Luz. Patient states he recently moved to [place] from [place]. 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 Patient states he seen a engineering technician Dr. Fawad Driver but they did not help treat is psoriasis. DX with PsA 2011. Humira and cosentyx made the psoriasis worse and 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 and Enbrel and Remicade and otezla made quit working. Review of Systems Constitutional: Positive for fatigue. HENT: Negative. Eyes: Negative. Respiratory: Negative. Cardiovascular: Negative. Gastrointestinal: Positive for abdominal distention and abdominal pain. Upcoming hernia surgery Endocrine: Negative. Genitourinary: Negative. Musculoskeletal: Positive for arthralgias, back pain, gait problem, joint swelling, neck pain and neck stiffness. Skin: Positive for rash. psoriasis Allergic/Immunologic: Negative. Neurological: Positive for weakness. Hematological: Negative. Psychiatric/Behavioral: Negative. Vitals: Blood pressure 136/84, pulse 80, temperature 98 F (36.7 C), temperature source Temporal, height 1.829 m (6'), SpO2 96 %. Physical Exam Constitutional: He is oriented to person, place, and time. He appears well- developed and well-nourished. HENT: Head: Normocephalic and atraumatic. Right Ear: External ear normal. Left Ear: External ear normal. Nose: Nose normal. Mouth/Throat: Oropharynx is clear and moist. Male pattern alopecia Stutters Eyes: Pupils are equal, round, and reactive to light. Conjunctivae and EOM are normal. Neck: Neck supple. Cardiovascular: Normal rate, regular rhythm and normal heart sounds. Pulses: Carotid pulses are 2+ on the right side, and 2+ on the left side. Radial pulses are 2+ on the right side, and 2+ on the left side. No subclavian or carotid bruits. Did not take off shoes for exam. Pulmonary/Chest: Effort normal. He has rhonchi in the right lower field and the left lower field. Abdominal: Soft. Bowel sounds are normal. There is tenderness. A hernia is present. Obese Musculoskeletal: Right shoulder: He exhibits decreased range of motion, tenderness and bony tenderness. Left shoulder: He exhibits decreased range of motion, tenderness and bony tenderness. Right elbow: He exhibits decreased range of motion, swelling and effusion. Tenderness found. Left elbow: He exhibits decreased range of motion, swelling and effusion. Tenderness found. Right wrist: He exhibits decreased range of motion, tenderness, bony tenderness, swelling and effusion. Left wrist: He exhibits decreased range of motion, tenderness, bony tenderness, swelling and effusion. Right hip: He exhibits decreased range of motion. Left hip: He exhibits decreased range of motion. Right knee: He exhibits decreased range of motion. Tenderness found. Left knee: He exhibits decreased range of motion, swelling and effusion. Tenderness found. Right ankle: He exhibits decreased range of motion. Left ankle: He exhibits decreased range of motion. Cervical back: He exhibits decreased range of motion and tenderness. Thoracic back: Normal. Lumbar back: He exhibits decreased range of motion and tenderness. Right upper arm: He exhibits tenderness. Left upper arm: He exhibits tenderness. Right forearm: Normal. Left forearm: Normal. Right hand: He exhibits decreased range of motion and tenderness. Left hand: He exhibits decreased range of motion and tenderness. Right upper leg: Normal. Left upper leg: Normal. Right lower leg: Normal. Left lower leg: Normal. Neurological: He is alert and oriented to person, place, and time. He displays a negative Romberg sign. Gait abnormal. Cane. 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 Rash noted. Psoriasis - severe with onychodystrophy Psychiatric: He has a normal mood and affect. His behavior is normal. Judgment and thought content normal. Nursing note and vitals reviewed. Neurologic Exam Mental Status Oriented to person, place, and time. Cranial Nerves CN III, IV, Pupils are equal, round, and reactive to light. Extraocular motions are normal. Left Knee Exam Other Effusion: effusion present Assessment and Plan Encounter Diagnoses Name Primary? 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 Time was spent with the patient today in education in re: to all their medical conditions. A complete H&P&ROS was obtained and is either in this note or in the EHR. Please do not hesitate to contact me with any questions or concerns re: this patient. Past History Past medical, surgical, family, and social histories have been reviewed and updated with the patient today and are located elsewhere in the medical record. 2. Thank you for allowing me to participate in the care of your patient. With your permission I would like to F/U with your patient. 3. Differenetial Diagnosis includes but is not limited to Autoimmune Disease, Connective Tissue Disease, Collagen Vascular Disorder, Infection, and Neoplasm. 4. Patient given educational material on Psoriatic Arthritis in the form of a pamphlet from the arthritis foundation 5. Allergy to Humira - makes the psoriasis worse 6. Allergy to Cosentyx - makes the psoriasis worse 7. Lab and x-ray and F/U with me in 2 weeks 8. Monitor CBC/LFT/Renal func every 6-12 months as long as patient is on daily NSAID 9. Rec: Derm eval and F/U 10. Enbrel did not help 11. Remicade did not help 12. Methotrexae did not help 13. Otezla did not help 14. Rx given for PT/OT - will hold 15. At patient's request will set up with chronic pain management 16. Rx given for 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 3 pills one day a week - can start on 04/18/18 17. Rx given for Folic acid 1 mg 1 pill a day 18. Rx given for Prednisone 20 mg 3 po 1 q AM times one day 19. Hold Methtorexate week before, week during and, week after any surgery. Hold 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 any time have an infection can restart once off of ATB and/or antiviral and free of infection. Hold 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 week before, week during and, week after any live attenuated vaccine (shingles). Monitor CBC/LFT/Renal func every 2-3 months on 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. Hold 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 anytime there is an open wound and can restart once wound has healed 20. Patient should hold Stelera month before and month after surgery or live vaccine (shingles). Patient should hold Stelera if infection can restart once off of ATB and/or antiviral and free of infection. Hold Stelera if open wound can restart once wound has healed. 21. Rx given for Stelera to be started on or about 05/02/18 22. Patient given educational material on OA in the from of a pamphlet from the arthritis foundation. Patient told that PT and keeping ideal body wt would be the cornerstone of treatment 23. If neck pain continues rec: eval by spinal surgery and/or chronic pain management 24. If patient continues to have trouble with back pain would rec: eval by spinal surgery and/or chronic pain management 25. If shoulder and elbow and wrist and hand knee problems continue rec: ortho eval in this encounter* Tra Vale Jr., DO - 05/03/2018 12:30 PM EST Formatting of this note may be different from the original. History of Present Illness Patient states he seen a engineering technician Dr. Fawad Driver but they did not help treat is psoriasis. DX with PsA 2011. Humira and cosentyx made the psoriasis worse and 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 and Enbrel and Remicade and otezla made quit working. Presence of Pain: complains of pain/discomfort (05/03/18 1148), Pain Location: (Everywhere) (05/03/18 1148), DVPRS: Rest: 7- severe pain (05/03/18 1148), DVPRS: Activity: 7- severe pain (05/03/18 1148), Pain Frequency: constant (05/03/18 1148), Pain Quality: aching (05/03/18 1148) Due to patient's coexisting health problems and co-morbidities treatment is and will be very difficult. '[-Patient is here today for his 2 week F/U and patient has disability forms. Patient is still having joint pain everyday. Energy level is low. Patient does not feel like doinganything. Patient had the hernia surgery. Abdominal pain is better but still there. Patient is having joint and muscle pain and a hard time getting up in the AM and he has to make himself do it with > 1 hour AM stiffness. Back pain is yes. Joint swelling is yes. Neck pain is yes. Psoriasis is a little bit better. Weakness is yes. Patient has not started Stelara yet. Patient is not taking Prednisone. 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 3 pills one day a week. Review of Systems Constitutional: Positive for fatigue. HENT: Negative. Eyes: Negative. Respiratory: Negative. Cardiovascular: Negative. Gastrointestinal: Positive for abdominal pain. S/P hernia surgery Endocrine: Negative. Genitourinary: Negative. Musculoskeletal: Positive for arthralgias, back pain, gait problem, joint swelling, myalgias, neck pain and neck stiffness. Skin: Positive for rash. psoriasis Allergic/Immunologic: Negative. Neurological: Positive for weakness. Hematological: Negative. Psychiatric/Behavioral: Negative. Vitals: Blood pressure 132/80, pulse 89, temperature 98 F (36.7 C), temperature source Temporal, height 1.829 m (6'), weight 133.8 kg (295 lb), SpO2 97 %. Physical Exam Constitutional: He is oriented to person, place, and time. He appears well- developed and well-nourished. HENT: Head: Normocephalic and atraumatic. Right Ear: External ear normal. Left Ear: External ear normal. Nose: Nose normal. Mouth/Throat: Oropharynx is clear and moist. Male pattern alopecia Stutters Eyes: Pupils are equal, round, and reactive to light. Conjunctivae and EOM are normal. Neck: Neck supple. Cardiovascular: Normal rate, regular rhythm and normal heart sounds. Pulses: Radial pulses are 2+ on the right side, and 2+ on the left side. Pulmonary/Chest: Effort normal. He has rhonchi in the right lower field and the left lower field. Abdominal: Soft. Bowel sounds are normal. There is tenderness. S/P hernia surgery. Obese Musculoskeletal: Right shoulder: He exhibits decreased range of motion, tenderness and bony tenderness. Left shoulder: He exhibits decreased range of motion, tenderness and bony tenderness. Right elbow: He exhibits decreased range of motion, swelling and effusion. Tenderness found. Left elbow: He exhibits decreased range of motion, swelling and effusion. Tenderness found. Right wrist: He exhibits decreased range of motion, tenderness, bony tenderness, swelling and effusion. Left wrist: He exhibits decreased range of motion, tenderness, bony tenderness, swelling and effusion. Right knee: He exhibits decreased range of motion. Tenderness found. Left knee: He exhibits decreased range of motion, swelling and effusion. Tenderness found. Right ankle: He exhibits decreased range of motion. Left ankle: He exhibits decreased range of motion. Right upper arm: He exhibits tenderness. Left upper arm: He exhibits tenderness. Right forearm: Normal. Left forearm: Normal. Right hand: He exhibits decreased range of motion and tenderness. Left hand: He exhibits decreased range of motion and tenderness. Right upper leg: Normal. Left upper leg: Normal. Right lower leg: Normal. Left lower leg: Normal. Neurological: He is alert and oriented to person, place, and time. He displays a negative Romberg sign. Gait abnormal. Cane. 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 Rash noted. Psoriasis - severe with onychodystrophy Psychiatric: He has a normal mood and affect. His behavior is normal. Judgment and thought content normal. Nursing note and vitals reviewed. Neurologic Exam Mental Status Oriented to person, place, and time. Cranial Nerves CN III, IV, Pupils are equal, round, and reactive to light. Extraocular motions are normal. Left Knee Exam Other Effusion: effusion present Assessment and Plan Encounter Diagnoses Name Primary? 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) care home current use of 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, custodial, current use Long-term current use of high risk medication other than anticoagulant Vitamin D deficiency Lumbosacral spondylosis without myelopathy Osteoarthritis of cervical spine, unspecified spinal osteoarthritis complication status DDD (degenerative disc disease), cervical Osteoarthritis of both hips, unspecified osteoarthritis type Osteoarthritis of both acromioclavicular joints Osteoarthritis of both glenohumeral joints Impingement syndrome of both shoulders Primary osteoarthritis of both knees Osteoarthritis of both wrists, unspecified osteoarthritis type Osteoarthritis of both hands, unspecified osteoarthritis type Plaque psoriasis 1. Time was spent with the patient today in education in re: to all their medical conditions. A complete H&P&ROS was obtained and is either in this note or in the EHR. Please do not hesitate to contact me with any questions or concerns re: this patient. Past History Past medical, surgical, family, and social histories have been reviewed and updated with the patient today and are located elsewhere in the medical record. 2. Thank you for allowing me to participate in the care of your patient. With your permission I would like to F/U with your patient. 3. Rx given for Stelara 4. Rx given for Prednisone 5 mg 4 pills a day for 2 weeks then 3 pills a day for 2 weeks then 2 pills a day for 2 weeks then 1 pill a day for 2 weeks then 1 pill every other day for 2 weeks then stop. 5. Allergy to Humira - makes the psoriasis worse 6. Allergy to Cosentyx - makes the psoriasis worse 7. Rx given to increase 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 to 6 pills one day a week 8. Monitor CBC/LFT/Renal func every 6-12 months as long as patient is on daily NSAID 9. Rec: Derm eval and F/U 10. Enbrel did not help 11. Remicade did not help 12. Methotrexae did not help 13. Otezla did not help 14. Rx given for PT/OT 15. Disability forms filled out for patient today. 16. TB test is negative 17. Negative HLA-B27, ANCA, JOVAN, Hep A&B&C serology, Celiac, CCP, 18. Claudia level is normal at 29 19. Hold Methtorexate week before, week during and, week after any surgery. Hold 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 any time have an infection can restart once off of ATB and/or antiviral and free of infection. Hold 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 week before, week during and, week after any live attenuated vaccine (shingles). Monitor CBC/LFT/Renal func every 2-3 months on 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. Hold 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 anytime there is an open wound and can restart once wound has healed 20. Patient should hold Stelera month before and month after surgery or live vaccine (shingles). Patient should hold Stelera if infection can restart once off of ATB and/or antiviral and free of infection. Hold Stelera if open wound can restart once wound has healed. 21. Hgb is low at 12.8 22. ESR is normal 23. If neck pain continues rec: eval by spinal surgery and/or chronic pain management 24. If patient continues to have trouble with back pain would rec: eval by spinal surgery and/or chronic pain management 25. If shoulder and elbow and wrist and hand knee problems continue rec: ortho eval 26. Monitor Vit D level every 6 -12 months if remains low rec: eval by endo 27. Low 25 hydroxy Vit D level at 25.1 with normal 1,25 dihydroxy Vit D level 28. Patient started on Maximum D3 10,000 units 1 pill one day a week 29. Repeat Vit D level on or about 06/27/18 with copy to PCP 30. CRP is negative at < 0.2 31. Patient declines referral to ortho 32. At patient's request will set up with sports medicine 33. Lab on or about 05/30/18 and every 2 months thereafter 34. F/U with me in 4 months in this encounter* Kavin Kumar, Tra Vasquez, DO - 09/03/2018 11:30 AM EDT History of Present Illness Patient states he seen a engineering technician Dr. Fawad Driver but they did not help treat is psoriasis. DX with PsA 2011. Humira and cosentyx made the psoriasis worse and 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 and Enbrel and Remicade and otezla made quit working. Stelara started 05/2018. Stelara is helping and not bothering the patient. Presence of Pain: complains of pain/discomfort (09/03/18 1131), Pain Location: (Everywhere) (09/03/18 113), Select Pain Scale: DVPRS (Defense and Veterans Pain Rating Scale) (Adult-Cognitively Intact) (09/03/18 113), DVPRS: Rest: 10- severe pain (09/03/18 113), DVPRS: Activity: 10- severe pain (09/03/18 113), Select Pain Scale: DVPRS (Defense and Veterans Pain Rating Scale) (Adult-Cognitively Intact) (09/03/18 113), Pain Duration: 4 Month F/U (09/03/18 113), Pain Frequency: constant (09/03/18 113), Pain Quality: aching (09/03/18 113). Due to complex issues I spent at least 34 minutes in face to face time with patient, more than 50% of that time was spent on counseling and coordination of care. Patient is being evaluated for an unstable chronic illness that increase morbidity and mortality. Patient's lack of compliance makes treatment very difficult. Patient did not get lab as instructed. Patient is here today for his 4 month F/U. Patient states he is having severe pain everyday. Patient states the stelara does not help with his joint pain. Patient has been having severe joint pain for 4 months now. Energy level is so so. No belly pain. Joint pain is yes. Back pain is yes. Walking is about the same. Joint swelling is no. Muscle pain is yes all over. Neck pain is yes and shoulders. Psoriasis is a lot better. Weakness is yes. Stelara is wearing off after a week and is not lasting the whole 3 months. I have been told the Prednisone is a high risk medication. Patient is taking Prednisone every other day and does not notice a difference on the day he takes it and the day he does not. Patient felt better prednisone on pill a day. I have been told that patient is on a high risk medication as it either treats cancer or requires blood work every 2-3 months. 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 is 6 pills one day a week. PT/OT helped out some and patient is doing HEP. Review of Systems Constitutional: Positive for fatigue. HENT: Negative. Eyes: Negative. Respiratory: Negative. Cardiovascular: Negative. Gastrointestinal: S/P hernia surgery Endocrine: Negative. Genitourinary: Negative. Musculoskeletal: Positive for arthralgias, back pain, gait problem, myalgias, neck pain and neck stiffness. Skin: Positive for rash. psoriasis Allergic/Immunologic: Negative. Neurological: Positive for weakness. Hematological: Negative. Psychiatric/Behavioral: Negative. Vitals: Blood pressure 132/88, pulse 72, temperature 98 F (36.7 C), temperature source Temporal, height 1.829 m (6'), weight (!) 143.2 kg (315 lb 12.8 oz), SpO2 97 %. Physical Exam Constitutional: He is oriented to person, place, and time. He appears well- developed and well-nourished. HENT: Head: Normocephalic and atraumatic. Right Ear: External ear normal. Left Ear: External ear normal. Nose: Nose normal. Mouth/Throat: Oropharynx is clear and moist. Male pattern alopecia Stutters Eyes: Pupils are equal, round, and reactive to light. Conjunctivae and EOM are normal. Neck: Neck supple. Cardiovascular: Normal rate, regular rhythm and normal heart sounds. Pulses: Radial pulses are 2+ on the right side, and 2+ on the left side. Pulmonary/Chest: Effort normal. He has rhonchi in the right lower field and the left lower field. Abdominal: Soft. Bowel sounds are normal. S/P hernia surgery. Obese Musculoskeletal: Right shoulder: He exhibits decreased range of motion, tenderness and bony tenderness. Left shoulder: He exhibits decreased range of motion, tenderness and bony tenderness. Right elbow: He exhibits decreased range of motion. Left elbow: He exhibits decreased range of motion. Right wrist: He exhibits decreased range of motion. Left wrist: He exhibits decreased range of motion. Right knee: He exhibits decreased range of motion. Left knee: He exhibits decreased range of motion. Right ankle: He exhibits decreased range of motion. Left ankle: He exhibits decreased range of motion. Right upper arm: He exhibits tenderness. Left upper arm: He exhibits tenderness. Right forearm: Normal. Left forearm: Normal. Right hand: Normal. Left hand: Normal. Right upper leg: Normal. Left upper leg: Normal. Right lower leg: Normal. Left lower leg: Normal. Neurological: He is alert and oriented to person, place, and time. He displays a negative Romberg sign. Gait abnormal. Cane. Skin: Skin is warm and dry. Rash noted. Psoriasis - severe with onychodystrophy Psychiatric: He has a normal mood and affect. His behavior is normal. Judgment and thought content normal. Nursing note and vitals reviewed. Neurologic Exam Mental Status Oriented to person, place, and time. Cranial Nerves CN III, IV, Pupils are equal, round, and reactive to light. Extraocular motions are normal. Assessment and Plan 1. Time was spent with the patient today in education in re: to all their medical conditions. A complete H&P&ROS was obtained and is either in this note or in the EHR. Please do not hesitate to contact me with any questions or concerns re: this patient. Past History Past medical, surgical, family, and social histories have been reviewed and updated with the patient today and are located elsewhere in the medical record. 2. Thank you for allowing me to participate in the care of your patient. With your permission I would like to F/U with your patient. 3. Rx given for Prednisone 5 mg 1 pill a day 4. Rx given for 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 to increase to 7 pills one day a week 5. Allergy to Humira - makes the psoriasis worse 6. Allergy to Cosentyx - makes the psoriasis worse 7. At patient's request will set up with chronic pain management - actually it appears this has already been done 8. Monitor CBC/LFT/Renal func every 6-12 months as long as patient is on daily NSAID 9. Rec: Derm eval and F/U 10. Enbrel did not help 11. Remicade did not help 12. Methotrexae did not help 13. Otezla did not help 14. Chronic Pain Management F/U per Dr. Solano in [place]. 15. Disability forms filled out for patient today. 16. TB test was negative 17. Negative HLA-B27, ANCA, JOVAN, Hep A&B&C serology, Celiac, CCP, 18. Claudia level was normal at 29 19. Hold Methtorexate week before, week during and, week after any surgery. Hold 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 any time have an infection can restart once off of ATB and/or antiviral and free of infection. Hold 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 week before, week during and, week after any live attenuated vaccine (shingles). Monitor CBC/LFT/Renal func every 2-3 months on 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. Hold 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 anytime there is an open wound and can restart once wound has healed 20. Patient should hold Stelera month before and month after surgery or live vaccine (shingles). Patient should hold Stelera if infection can restart once off of ATB and/or antiviral and free of infection. Hold Stelera if open wound can restart once wound has healed. 21. Hgb was low at 12.8 22. ESR was normal 23. Monitor Vit D level every 6 -12 months if remains low rec: eval by endo 24. CRP was negative at < 0.2 25. Patient declines referral to ortho 26. At patient's request will set up with sports medicine - will try to do that again for the patient but patient declines 27. Lab on or about 09/03/18 and every 2 months thereafter 28.. F/U with me in 4 months documented in this encounter* Tra Vale Jr., DO - 05/06/2019 9:15 AM EST History of Present Illness Patient states he seen a engineering technician Dr. Fawad Driver but they did not help treat is psoriasis. DX with PsA 2011. Humira and cosentyx made the psoriasis worse and 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 and Enbrel and Remicade and otezla made quit working. Stelara started 05/2018. Angelina has been helping and not bothering the patient. Presence of Pain: complains of pain/discomfort Pain Location: (everywhere) Select Pain Scale: DVPRS (Defense and Veterans Pain Rating Scale) (Adult- Cognitively Intact) DVPRS: Rest: 9- severe pain DVPRS: Activity: 9- severe pain Select Pain Scale: DVPRS (Defense and Veterans Pain Rating Scale) (Adult- Cognitively Intact) Pain Frequency: constant Pain Quality: aching. Due to complex issues I spent at least 24 minutes in face to face time with patient, more than 50% of that time was spent on counseling and coordination of care. Patient is being evaluated for an unstable chronic illness that increase morbidity and mortality. Patient has had a serious adverse event to medication which could have increased morbidity or mortality. Patient is here today for his 4 Month F/U. Patient states he is having severe joint pain. Patient states the Stelara helps with some of his joint pain. Patient states he had to stop the prednisonebecause he was getting swelling, weight gain, and headaches. Energy level is not good. Weakness is yes. Joint pain is yes. Back pain is a little not much. Muscle pain is yea. Neck pain is yes. Psoriasis is doing OK but it is coming back a little bit. I have been told that patient is on a high risk m edication as it either treats cancer or requires blood work every 2-3 months. 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 is 7 pills one day a week. Review of Systems Constitutional: Positive for fatigue and unexpected weight change. HENT: Negative. Eyes: Negative. Respiratory: Negative. Cardiovascular: Positive for leg swelling. Gastrointestinal: S/P hernia surgery Endocrine: Negative. Genitourinary: Negative. Musculoskeletal: Positive for arthralgias, back pain, gait problem, myalgias, neck pain and neck stiffness. Skin: Positive for rash. psoriasis Allergic/Immunologic: Negative. Neurological: Positive for weakness and headaches. Hematological: Negative. Psychiatric/Behavioral: Negative. Vitals: Blood pressure 154/86, pulse 85, temperature 98 F (36.7 C), temperature source Temporal, height 1.829 m (6'), weight (!) 142.9 kg (315 lb), SpO2 97 %. Physical Exam Vitals signs and nursing note reviewed. Constitutional: Appearance: He is well-developed. He is obese. HENT: Head: Normocephalic and atraumatic. Comments: Male pattern alopecia Right Ear: External ear normal. Left Ear: External ear normal. Nose: Nose normal. Mouth/Throat: Mouth: Mucous membranes are moist. Pharynx: Oropharynx is clear. Eyes: Extraocular Movements: Extraocular movements intact and EOM normal. Conjunctiva/sclera: Conjunctivae normal. Pupils: Pupils are equal, round, and reactive to light. Neck: Musculoskeletal: Neck supple. Cardiovascular: Rate and Rhythm: Normal rate and regular rhythm. Pulses: Radial pulses are 2+ on the right side and 2+ on the left side. Heart sounds: Normal heart sounds. Pulmonary: Effort: Pulmonary effort is normal. Abdominal: General: Bowel sounds are normal. Palpations: Abdomen is soft. Comments: S/P hernia surgery. Obese Musculoskeletal: Right shoulder: He exhibits decreased range of motion, tenderness and bony tenderness. Left shoulder: He exhibits decreased range of motion, tenderness and bony tenderness. Right elbow: He exhibits decreased range of motion. Tenderness found. Left elbow: He exhibits decreased range of motion. Tenderness found. Right wrist: He exhibits decreased range of motion. Left wrist: He exhibits decreased range of motion. Right knee: He exhibits decreased range of motion. Tenderness found. Left knee: He exhibits decreased range of motion. Tenderness found. Right ankle: He exhibits decreased range of motion. Left ankle: He exhibits decreased range of motion. Right upper arm: He exhibits tenderness. Left upper arm: He exhibits tenderness. Right forearm: Normal. Left forearm: Normal. Right hand: He exhibits decreased range of motion. Left hand: He exhibits decreased range of motion. Right upper leg: Normal. Left upper leg: Normal. Right lower leg: Edema present. Left lower leg: Edema present. Skin: General: Skin is warm and dry. Findings: Rash present. Comments: Psoriasis on hands - severe with onychodystrophy Neurological: Mental Status: He is alert and oriented to person, place, and time. Cranial Nerves: Cranial nerves are intact. Sensory: Sensation is intact. Motor: Weakness present. Gait: Gait abnormal. Comments: Cane. 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 Behavior: Behavior normal. Thought Content: Thought content normal. Judgment: Judgment normal. Neurologic Exam Mental Status Oriented to person, place, and time. Cranial Nerves CN III, IV, Pupils are equal, round, and reactive to light. Extraocular motions are normal. Assessment and Plan Encounter Diagnoses Name Primary? 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) care home current use of 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 Long-term current use of high risk medication other than anticoagulant 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, custodial, current use Vitamin D deficiency DDD (degenerative disc disease), cervical Impingement syndrome of both shoulders Osteoarthritis of cervical spine, unspecified spinal osteoarthritis complication status Osteoarthritis of both acromioclavicular joints Osteoarthritis of both glenohumeral joints Osteoarthritis of both hands, unspecified osteoarthritis type Osteoarthritis of both hips, unspecified osteoarthritis type Osteoarthritis of both wrists, unspecified osteoarthritis type Primary osteoarthritis of both knees Plaque psoriasis Psoriasis 1. Time was spent with the patient today in education in re: to all their medical conditions. A complete H&P&ROS was obtained and is either in this note or in the EHR. Please do not hesitate to contact me with any questions or concerns re: this patient. Past History Past medical, surgical, family, and social histories have been reviewed and updated with the patient today and are located elsewhere in the medical record. 2. Thank you for allowing me to participate in the care of your patient. With your permission I would like to F/U with your patient. 3. Repeat vit D level on or about 09/04/2019 with copy to PCP 4. Call if need Rx's 5. Allergy to Humira - makes the psoriasis worse 6. Allergy to Cosentyx - makes the psoriasis worse 7. F/U with me in 4 months 8. Monitor CBC/LFT/Renal func every 6-12 months as long as patient is on daily NSAID 9. Rec: Derm eval and F/U 10. Enbrel did not help 11. Remicade did not help 12. Methotrexae did not help 13. Otezla did not help 14. Chronic Pain Management F/U per Dr. Solano in [place]. 15. TB test was negative 16. Negative HLA-B27, ANCA, JOVAN, Hep A&B&C serology, Celiac, CCP, 17. CLAUDIA level was normal at 29 18. Hold Methtorexate week before, week during and, week after any surgery. Hold 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 any time have an infection can restart once off of ATB and/or antiviral and free of infection. Hold 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 week before, week during and, week after any live attenuated vaccine (shingles). Monitor CBC/LFT/Renal func every 2-3 months on 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. Hold Methotrexate anytime there is an open wound and can restart once wound has healed 19. Patient should hold Stelera month before and month after surgery or live vaccine (shingles). Patient should hold Stelera if infection can restart once off of ATB and/or antiviral and free of infection. Hold Stelera if open wound can restart once wound has healed. 20. Hgb was low at 13.9 and still is at 12.9 21. ESR was normal at 4 and still is at 15 22. Monitor Vit D level every 6 -12 months if remains low rec: eval by endo 23. CRP was negative at < 0.2 and still is at < 0.2 24. Patient declines referral to ortho 25. At patient's request will set up with sports medicine - will try to do that again for the patient but patient declines again 26. Lab on or about 05/06/2019 and every 2 months thereafter 27. Patient is going to F/U with PCP about HTN. 28. Patient stopped Prednisone due to swelling and headaches and wt gain. documented in this encounter* Tra Vale Jr., DO - 09/09/2019 8:30 AM EDT History of Present Illness Patient states he seen a engineering technician Dr. Fawad Driver but they did not help treat is psoriasis. DX with PsA 2011. Humira and cosentyx made the psoriasis worse and Methotrexate and Enbrel and Remicade and otezla made quit working. Stelara started 05/2018. Angelina has been helping and not bothering the patient. Presence of Pain: complains of pain/discomfort Pain Location: (Everywhere) Select Pain Scale: DVPRS (Defense and Veterans Pain Rating Scale) (Adult- Cognitively Intact) DVPRS: Rest: 8- severe pain DVPRS: Activity: 8- severe pain Select Pain Scale: DVPRS (Defense and Veterans Pain Rating Scale) (Adult- Cognitively Intact) Pain Frequency: constant Pain Quality: aching . Patient is being evaluated for an unstable chronic illness that increase morbidity and mortality. Due to complex issues I spent at least 23 minutes in face to face time with patient, more than 50% of that time was spent on counseling and coordination of care. Patient is here today for his 4 Month F/U. Patient states he has been doing okay since his last appointment. Patientstates he has been walking more which seems to help with his joint pain. Patient states his medications are still working good. Energy level is a 5 out of 10, patient has lost wt. Leg swelling in no.No headaches. Weakness in hands and shoulders. Joint pain is yes. Back pain is no. Muscle pain is yes. Neck pain is yes. Psoriasis is doing much better. Stelera is lasting until the next shot. I havebeen told that patient is on a high risk medication as it either treats cancer or requires blood work every 2-3 months. Methotrexate is 7 pills one day a week. Review of Systems Constitutional: Positive for fatigue and unexpected weight change. Wt loss HENT: Negative. Eyes: Negative. Respiratory: Negative. Cardiovascular: Negative. Gastrointestinal: S/P hernia surgery Endocrine: Negative. Genitourinary: Negative. Musculoskeletal: Positive for arthralgias, gait problem, myalgias, neck pain and neck stiffness. Skin: Positive for rash. psoriasis Allergic/Immunologic: Negative. Neurological: Positive for weakness. Hematological: Negative. Psychiatric/Behavioral: Negative. Vitals: Blood pressure 138/80, pulse 83, temperature 97.8 F (36.6 C), temperature source Temporal, height 1.829 m (6'), weight (!) 146.5 kg (323 lb), SpO2 98 %. Physical Exam Vitals signs and nursing note reviewed. Constitutional: Appearance: He is well-developed. He is obese. HENT: Head: Normocephalic and atraumatic. Comments: Male pattern alopecia Right Ear: External ear normal. Left Ear: External ear normal. Nose: Nose normal. Mouth/Throat: Mouth: Mucous membranes are moist. Pharynx: Oropharynx is clear. Comments: Mask Eyes: Extraocular Movements: Extraocular movements intact and EOM normal. Conjunctiva/sclera: Conjunctivae normal. Pupils: Pupils are equal, round, and reactive to light. Neck: Musculoskeletal: Neck supple. Cardiovascular: Rate and Rhythm: Normal rate and regular rhythm. Pulses: Radial pulses are 2+ on the right side and 2+ on the left side. Heart sounds: Normal heart sounds. Pulmonary: Effort: Pulmonary effort is normal. Abdominal: General: Bowel sounds are normal. Palpations: Abdomen is soft. Comments: S/P hernia surgery. Obese Musculoskeletal: Right shoulder: He exhibits decreased range of motion, tenderness and bony tenderness. Left shoulder: He exhibits decreased range of motion, tenderness and bony tenderness. Right elbow: He exhibits decreased range of motion. Left elbow: He exhibits decreased range of motion. Right wrist: He exhibits decreased range of motion. Left wrist: He exhibits decreased range of motion. Right knee: He exhibits decreased range of motion. Left knee: He exhibits decreased range of motion. Right ankle: He exhibits decreased range of motion. Left ankle: He exhibits decreased range of motion. Right upper arm: He exhibits tenderness. Left upper arm: He exhibits tenderness. Right forearm: Normal. Left forearm: Normal. Right hand: Normal. Left hand: Normal. Right upper leg: Normal. Left upper leg: Normal. Right lower leg: Edema present. Left lower leg: Edema present. Skin: General: Skin is warm and dry. Findings: Rash present. Comments: Psoriasis on hands - severe with onychodystrophy - improved Neurological: Mental Status: He is alert and oriented to person, place, and time. Cranial Nerves: Cranial nerves are intact. Sensory: Sensation is intact. Motor: Weakness present. Gait: Gait abnormal. Comments: Cane. 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 Behavior: Behavior normal. Thought Content: Thought content normal. Judgment: Judgment normal. Neurologic Exam Mental Status Oriented to person, place, and time. Cranial Nerves CN III, IV, Pupils are equal, round, and reactive to light. Extraocular motions are normal. Assessment and Plan Encounter Diagnoses Name Primary? 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 Psoriasis SAPHO syndrome 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 arthritis care 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, long term care pharmacist, current use Long-term current use of high risk medication other than anticoagulant Vitamin D deficiency Osteoarthritis of cervical spine, unspecified spinal osteoarthritis complication status DDD (degenerative disc disease), cervical Osteoarthritis of both hips, unspecified osteoarthritis type Osteoarthritis of both acromioclavicular joints Osteoarthritis of both glenohumeral joints Impingement syndrome of both shoulders Primary osteoarthritis of both knees Osteoarthritis of both wrists, unspecified osteoarthritis type Osteoarthritis of both hands, unspecified osteoarthritis type Plaque psoriasis 1. Time was spent with the patient today in education in re: to all their medical conditions. A complete H&P&ROS was obtained and is either in this note or in the EHR. Please do not hesitate to contact me with any questions or concerns re: this patient. Past History Past medical, surgical, family, and social histories have been reviewed and updated with the patient today and are located elsewhere in the medical record. 2. Thank you for allowing me to participate in the care of your patient. With your permission I would like to F/U with your patient. 3. Repeat Vit D level on or about 02/11/2020 with copy to PCP 4. Call if need Rx's 5. Allergy to Humira - makes the psoriasis worse 6. Allergy to Cosentyx - makes the psoriasis worse 7. F/U with me in 4 months 8. Monitor CBC/LFT/Renal func every 6-12 months as long as patient is on daily NSAID 9. Rec: Derm eval and F/U 10. Enbrel did not help 11. Remicade did not help 12. Methotrexae did not help 13. Otezla did not help 14. Chronic Pain Management F/U per Dr. Solano in [place]. 15. TB test was negative 16. Negative HLA-B27, ANCA, JOVAN, Hep A&B&C serology, Celiac, CCP, 17. CLAUDIA level was normal at 29 18. Hold Methtorexate week before, week during and, week after any surgery. Hold Methotrexate any time have an infection can restart once off of ATB and/or antiviral and free of infection. Hold Methotrexate week before, week during and, week after any live attenuated vaccine (shingles). Monitor CBC/LFT/Renal func every 2-3 months on Methotrexate. Hold Methotrexate anytime there is an open wound and can restart once wound has healed 19. Patient should hold Stelera month before and month after surgery or live vaccine (shingles). Patient should hold Stelera if infection can restart once off of ATB and/or antiviral and free of infection. Hold Stelera if open wound can restart once wound has healed. 20. Hgb was low at 12.9 21. ESR was normal at 15 and still is at 15 22. Monitor Vit D level every 6 -12 months if remains low rec: eval by endo 23. CRP was negative at < 0.2 and still is at < 5.0 24. Patient declines referral to ortho 25. At patient's request will set up with sports medicine - will try to do that again for the patient but patient declines again 26. Lab on or about 10/11/2019 and every 2 months thereafter 27. Patient stopped Prednisone due to swelling and headaches and wt gain. documented in this encounter* Tra Vale Jr., - 01/13/2020 8:30 AM EDT History of Present Illness Patient states he seen a engineering technician Dr. Fawad Driver but they did not help treat is psoriasis. DX with PsA 2011. Humira and cosentyx made the psoriasis worse and Methotrexate and Enbrel and Remicade and otezla quit working. Stelara started 05/2018. Stelara has been helping and not bothering the patient. Presence of Pain: complains of pain/discomfort Pain Location: (Everywhere) Select Pain Scale: DVPRS (Defense and Veterans Pain Rating Scale) (Adult- Cognitively Intact) DVPRS: Rest: 7- severe pain DVPRS: Activity: 7- severe pain Select Pain Scale: DVPRS (Defense and Veterans Pain Rating Scale) (Adult- Cognitively Intact) Pain Frequency: constant Pain Quality: aching. Due to complex issues I spent at least 30 minutes in face to face time with patient, more than 50% of that time was spent on counseling and coordination of care. Patient is being evaluated for an unstable chronic illness that increase morbidity and mortality. Patient's lack ofcompliance makes treatment very difficult. Patient is here today for his 4 Month F/U. Patient states he has been doing okay since his last appointment. 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 Energy level is ok. Still loosing wt. Weakness in his hands arms legs and feet. Joint pain is yes sir. A little problems walking not much. Muscle pain is yes. Neck pain is yes. Psoriasis is ok. Coming out again with weather change. Stelara is lasting until the next shot. I have been told that patient is on a high risk medication as it either treats cancer or requires blood work every 2-3 months. Methotrexate 7 pills one day a week. Patient did not get lab asinstructed. Review of Systems Constitutional: Positive for unexpected weight change. Wt loss HENT: Negative. Eyes: Negative. Respiratory: Negative. Cardiovascular: Negative. Gastrointestinal: S/P hernia surgery Endocrine: Negative. Genitourinary: Negative. Musculoskeletal: Positive for arthralgias, gait problem, myalgias, neck pain and neck stiffness. Skin: Positive for rash. psoriasis Allergic/Immunologic: Negative. Neurological: Positive for weakness. Hematological: Negative. Psychiatric/Behavioral: Negative. Vitals: Blood pressure 130/80, temperature 97 F (36.1 C), temperature source Temporal, height 1.829m (6'), weight (!) 146.5 kg (323 lb). Physical Exam Vitals signs and nursing note reviewed. Constitutional: Appearance: He is well-developed. He is obese. HENT: Head: Normocephalic and atraumatic. Comments: Male pattern alopecia Right Ear: External ear normal. Left Ear: External ear normal. Nose: Nose normal. Mouth/Throat: Mouth: Mucous membranes are moist. Pharynx: Oropharynx is clear. Comments: Mask Eyes: Extraocular Movements: Extraocular movements intact and EOM normal. Conjunctiva/sclera: Conjunctivae normal. Pupils: Pupils are equal, round, and reactive to light. Neck: Musculoskeletal: Neck supple. Cardiovascular: Rate and Rhythm: Normal rate and regular rhythm. Pulses: Radial pulses are 2+ on the right side and 2+ on the left side. Heart sounds: Normal heart sounds. Pulmonary: Effort: Pulmonary effort is normal. Abdominal: General: Bowel sounds are normal. Palpations: Abdomen is soft. Comments: S/P hernia surgery. Obese Musculoskeletal: Right shoulder: He exhibits decreased range of motion. Left shoulder: He exhibits decreased range of motion. Right elbow: He exhibits decreased range of motion. Left elbow: He exhibits decreased range of motion. Right wrist: He exhibits decreased range of motion. Left wrist: He exhibits decreased range of motion. Right knee: He exhibits decreased range of motion. Left knee: He exhibits decreased range of motion. Tenderness found. Right ankle: He exhibits decreased range of motion. Left ankle: He exhibits decreased range of motion. Right upper arm: Normal. Left upper arm: Normal. Right forearm: Normal. Left forearm: Normal. Right hand: He exhibits decreased range of motion. Left hand: He exhibits decreased range of motion. Right upper leg: Normal. Left upper leg: Normal. Right lower leg: Edema present. Left lower leg: Edema present. Skin: General: Skin is warm and dry. Findings: Rash present. Comments: Psoriasis on hands - severe with onychodystrophy - improved Neurological: Mental Status: He is alert and oriented to person, place, and time. Cranial Nerves: Cranial nerves are intact. Sensory: Sensation is intact. Motor: Weakness present. 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 Behavior: Behavior normal. Thought Content: Thought content normal. Judgment: Judgment normal. Neurologic Exam Mental Status Oriented to person, place, and time. Cranial Nerves CN III, IV, Pupils are equal, round, and reactive to light. Extraocular motions are normal. Assessment and Plan Encounter Diagnoses Name Primary? 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) 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 arthritis Abnormal renal function test Vitamin D deficiency Primary osteoarthritis of both knees Osteoarthritis of both wrists, unspecified osteoarthritis type Osteoarthritis of both hips, unspecified osteoarthritis type Osteoarthritis of both hands, unspecified osteoarthritis type Osteoarthritis of both glenohumeral joints Osteoarthritis of both acromioclavicular joints Osteoarthritis of cervical spine, unspecified spinal osteoarthritis complication status Impingement syndrome of both shoulders DDD (degenerative disc disease), cervical 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 Time was spent with the patient today in education in re: to all their medical conditions. A complete H&P&ROS was obtained and is either in this note or in the EHR. Please do not hesitate to contact me with any questions or concerns re: this patient. Past History Past medical, surgical, family, and social histories have been reviewed and updated with the patient today and are located elsewhere in the medical record. 2. Thank you for allowing me to participate in the care of your patient. With your permission I would like to F/U with your patient. 3. Repeat Vit D level on or about 02/11/2020 with copy to PCP 4. 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 Allergy to Humira - makes the psoriasis worse 6. Allergy to Cosentyx - makes the psoriasis worse 7. Call if need Rx's 8. Monitor CBC/LFT/Renal func every 6-12 months as long as patient is on daily NSAID 9. Rec: Derm eval and F/U 10. Enbrel did not help 11. Remicade did not help 12. Methotrexae did not help 13. Otezla did not help 14. Chronic Pain Management F/U per Dr. Solano in [place]. 15. TB test was negative 16. Negative HLA-B27, ANCA, JOVAN, Hep A&B&C serology, Celiac, CCP, 17. CLAUDIA level was normal at 29 18. Hold Methtorexate week before, week during and, week after any surgery. Hold Methotrexate any time have an infection can restart once off of ATB and/or antiviral and free of infection. Hold Methotrexate week before, week during and, week after any live attenuated vaccine (shingles). Monitor CBC/LFT/Renal func every 2-3 months on Methotrexate. Hold Methotrexate anytime there is an open wound and can restart once wound has healed 19. Patient should hold Stelera month before and month after surgery or live vaccine (shingles). Patient should hold Stelera if infection can restart once off of ATB and/or antiviral and free of infection. Hold Stelera if open wound can restart once wound has healed. 20. Hgb was low at 12.9 and is now normal at 15.3 21. ESR was normal at 15 and still is at 6 22. Monitor Vit D level every 6 -12 months if remains low rec: eval by endo 23. CRP was negative at < 5.0 and still is at < 0.5 24. Patient declines referral to ortho 25. At patient's request will set up with sports medicine - will try to do that again for the patient but patient declines again 26. Lab on or about 01/13/2020 and every 2 months thereafter 27. Patient stopped Prednisone due to swelling and headaches and wt gain. 28. F/U with me in 6 months documented in this encounter* Tra Vale Jr., DO - 01/07/2019 9:15 AM EDT History of Present Illness Patient states he seen a engineering technician Dr. Fawad Driver but they did not help treat is psoriasis. DX with PsA 2011. Humira and cosentyx made the psoriasis worse and Methotrexate and Enbrel and Remicade and otezla made quit working. Angelina started 05/2018. Angelina has been helping and not bothering the patient. Presence of Pain: complains of pain/discomfort Pain Location: (Everywhere) Select Pain Scale: DVPRS (Defense and Veterans Pain Rating Scale) (Adult- Cognitively Intact) DVPRS: Rest: 9- severe pain DVPRS: Activity: 9- severe pain Select Pain Scale: DVPRS (Defense and Veterans Pain Rating Scale) (Adult- Cognitively Intact) Pain Frequency: constant Pain Quality: aching. Due to complex issues I spent at least 34 minutes in face to face time with patient, more than 50% of that time was spent on counseling and coordination of care. Patient is heretoday for his 4 month F/U. Patient states he is still having severe pain. Patient states his symptoms are the same. Patient states he would like refills on his Triamcinolong ointment and Halobeta cream. Energy is not good. Joint pain is yes. Patient is being evaluated for an unstable chronic illness that increase morbidity and mortality. Back pain is yes. Muscle pain is yes. Neck pain is yes. Weakness us a little bit. Psoriasis is dong ok but he is breaking out again. Stelera is lasting the whole 3 months. I have been told that prednisone is a high risk medication. I have been told that patient is on a high risk medication as it either treats cancer or requires blood work every 2-3 months. Review of Systems Constitutional: Positive for fatigue. HENT: Negative. Eyes: Negative. Respiratory: Negative. Cardiovascular: Negative. Gastrointestinal: S/P hernia surgery Endocrine: Negative. Genitourinary: Negative. Musculoskeletal: Positive for arthralgias, back pain, gait problem, myalgias, neck pain and neck stiffness. Skin: Positive for rash. psoriasis Allergic/Immunologic: Negative. Neurological: Positive for weakness. Hematological: Negative. Psychiatric/Behavioral: Negative. Vitals: Blood pressure 132/88, pulse 76, temperature 98 F (36.7 C), temperature source Temporal, height 1.829 m (6'), weight (!) 142.9 kg (315 lb), SpO2 97 %. Physical Exam Constitutional: He is oriented to person, place, and time. He appears well- developed and well-nourished. HENT: Head: Normocephalic and atraumatic. Right Ear: External ear normal. Left Ear: External ear normal. Nose: Nose normal. Mouth/Throat: Oropharynx is clear and moist. Male pattern alopecia Stutters Eyes: Pupils are equal, round, and reactive to light. Conjunctivae and EOM are normal. Neck: Neck supple. Cardiovascular: Normal rate, regular rhythm and normal heart sounds. Pulses: Radial pulses are 2+ on the right side, and 2+ on the left side. Pulmonary/Chest: Effort normal. He has rhonchi in the right lower field and the left lower field. Abdominal: Soft. Bowel sounds are normal. S/P hernia surgery. Obese Musculoskeletal: Right shoulder: He exhibits decreased range of motion, tenderness and bony tenderness. Left shoulder: He exhibits decreased range of motion, tenderness and bony tenderness. Right elbow: He exhibits decreased range of motion. Left elbow: He exhibits decreased range of motion. Right wrist: He exhibits decreased range of motion. Left wrist: He exhibits decreased range of motion. Right knee: He exhibits decreased range of motion. Left knee: He exhibits decreased range of motion. Right ankle: He exhibits decreased range of motion. Left ankle: He exhibits decreased range of motion. Right upper arm: He exhibits tenderness. Left upper arm: He exhibits tenderness. Right forearm: Normal. Left forearm: Normal. Right hand: Normal. Left hand: Normal. Right upper leg: Normal. Left upper leg: Normal. Right lower leg: Normal. Left lower leg: Normal. Neurological: He is alert and oriented to person, place, and time. He displays a negative Romberg sign. Gait abnormal. Cane. Skin: Skin is warm and dry. Rash noted. Psoriasis - severe with onychodystrophy Psychiatric: He has a normal mood and affect. His behavior is normal. Judgment and thought content normal. Nursing note and vitals reviewed. Neurologic Exam Mental Status Oriented to person, place, and time. Cranial Nerves CN III, IV, Pupils are equal, round, and reactive to light. Extraocular motions are normal. Assessment and Plan Encounter Diagnoses Name Primary? 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 Time was spent with the patient today in education in re: to all their medical conditions. A complete H&P&ROS was obtained and is either in this note or in the EHR. Please do not hesitate to contact me with any questions or concerns re: this patient. Past History Past medical, surgical, family, and social histories have been reviewed and updated with the patient today and are located elsewhere in the medical record. 2. Thank you for allowing me to participate in the care of your patient. With your permission I would like to F/U with your patient. 3. Rx given for Prednisone 1 mg 4 pills a day 4. Rx given for Triamcinolone cream 0.1% 5. Allergy to Humira - makes the psoriasis worse 6. Allergy to Cosentyx - makes the psoriasis worse 7. Rx given for Halobetasol 0.055 8. Monitor CBC/LFT/Renal func every 6-12 months as long as patient is on daily NSAID 9. Rec: Derm eval and F/U 10. Enbrel did not help 11. Remicade did not help 12. Methotrexae did not help 13. Otezla did not help 14. Chronic Pain Management F/U per Dr. Solano in [place]. 15. F/U with me in 4 months 16. TB test was negative 17. Negative HLA-B27, ANCA, JOVAN, Hep A&B&C serology, Celiac, CCP, 18. Claudia level was normal at 29 19. Hold Methtorexate week before, week during and, week after any surgery. Hold Methotrexate any time have an infection can restart once off of ATB and/or antiviral and free of infection. Hold Methotrexate week before, week during and, week after any live attenuated vaccine (shingles). Monitor CBC/LFT/Renal func every 2-3 months on Methotrexate. Hold Methotrexate anytime there is an open wound and can restart once wound has healed 20. Patient should hold Stelera month before and month after surgery or live vaccine (shingles). Patient should hold Stelera if infection can restart once off of ATB and/or antiviral and free of infection. Hold Stelera if open wound can restart once wound has healed. 21. Hgb was low at 12.8 and still is at 13.9 22. ESR was normal and still is at 4 23. Monitor Vit D level every 6 -12 months if remains low rec: eval by endo 24. CRP was negative at < 0.2 and still is at < 0.2 25. Patient declines referral to ortho 26. At patient's request will set up with sports medicine - will try to do that again for the patient but patient declines 27. Lab on or about 01/04/19 and every 2 months thereafter documented in this encounter* Tra Vale Jr., DO - 07/13/2020 8:30 AM EDT History of Present Illness Patient states he seen a engineering technician Dr. Fawad Driver but they did not help treat is psoriasis. DX with PsA 2011. Humira and cosentyx made the psoriasis worse and Methotrexate and Enbrel and Remicade and otezla quit working. Stelara started 05/2018. Angelina has been helping and not bothering the patient. Presence of Pain: complains of pain/discomfort Pain Location: generalized Select Pain Scale: DVPRS (Defense and Veterans Pain Rating Scale) (Adult- Cognitively Intact) DVPRS: Rest: 7- severe pain DVPRS: Activity: 7- severe pain Select Pain Scale: DVPRS (Defense and Veterans Pain Rating Scale) (Adult- Cognitively Intact) Pain Frequency: constant Pain Quality: aching. Total time spent in this encounter was 33 minutes. Patient is being evaluatedfor an unstable chronic illness that increase morbidity and mortality. Patient is here for a 6 Month F/U. Patient states that he had a hernia repair last sunday and is doing well. Patient states thathe has pain all over. Patient states that he has been doing okay since his last appointment. Patient has lost 39 pounds since we have last seen him. Patient states he has seen a engineering technician Shai and she recommends Taltz instead of stelara. Intentional wt loss continues. Weakness is yes.Joint pain is yes. Muscle pain is yes. Neck pain. Psoriasis is ok. I have been told that patient kae a high risk medication as it either treats cancer or requires blood work every 2-3 months. Review of Systems Constitutional: Positive for unexpected weight change. Wt loss - intentional HENT: Negative. Eyes: Negative. Respiratory: Negative. Cardiovascular: Negative. Gastrointestinal: S/P hernia surgery Endocrine: Negative. Genitourinary: Negative. Musculoskeletal: Positive for arthralgias, gait problem, myalgias, neck pain and neck stiffness. Skin: Positive for rash. psoriasis Allergic/Immunologic: Negative. Neurological: Positive for weakness. Hematological: Negative. Psychiatric/Behavioral: Negative. Vitals: Blood pressure 126/84, pulse 71, temperature 97.9 F (36.6 C), height 1.829 m (6'), weight 128.8 kg (284 lb), SpO2 97 %. Physical Exam Vitals and nursing note reviewed. Constitutional: Appearance: He is well-developed. He is obese. HENT: Head: Normocephalic and atraumatic. Comments: Male pattern alopecia Right Ear: External ear normal. Left Ear: External ear normal. Nose: Nose normal. Mouth/Throat: Mouth: Mucous membranes are moist. Pharynx: Oropharynx is clear. Comments: Mask Eyes: Extraocular Movements: Extraocular movements intact and EOM normal. Conjunctiva/sclera: Conjunctivae normal. Pupils: Pupils are equal, round, and reactive to light. Cardiovascular: Rate and Rhythm: Normal rate and regular rhythm. Pulses: Radial pulses are 2+ on the right side and 2+ on the left side. Heart sounds: Normal heart sounds. Pulmonary: Effort: Pulmonary effort is normal. Abdominal: General: Bowel sounds are normal. Palpations: Abdomen is soft. Comments: S/P hernia surgery. Obese Musculoskeletal: Right shoulder: Decreased range of motion. Left shoulder: Decreased range of motion. Right upper arm: Normal. Left upper arm: Normal. Right elbow: Decreased range of motion. Left elbow: Decreased range of motion. Right forearm: Normal. Left forearm: Normal. Right wrist: Decreased range of motion. Left wrist: Decreased range of motion. Right hand: Normal. Left hand: Normal. Cervical back: Neck supple. Right upper leg: Normal. Left upper leg: Normal. Right knee: Decreased range of motion. Left knee: Decreased range of motion. Right lower leg: Edema present. Left lower leg: Edema present. Right ankle: Decreased range of motion. Left ankle: Decreased range of motion. Skin: General: Skin is warm and dry. Findings: Rash present. Comments: Psoriasis on hands - severe with onychodystrophy - improved Neurological: Mental Status: He is alert and oriented to person, place, and time. Cranial Nerves: Cranial nerves are intact. Sensory: Sensation is intact. Motor: Weakness present. 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 Behavior: Behavior normal. Thought Content: Thought content normal. Judgment: Judgment normal. Neurologic Exam Mental Status Oriented to person, place, and time. Cranial Nerves CN III, IV, Pupils are equal, round, and reactive to light. Extraocular motions are normal. Assessment and Plan Encounter Diagnoses Name Primary? 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 Psoriasis SAPHO syndrome 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 arthritis care 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, long term care pharmacist, current use Long-term current use of high risk medication other than anticoagulant Vitamin D deficiency Osteoarthritis of cervical spine, unspecified spinal osteoarthritis complication status DDD (degenerative disc disease), cervical Osteoarthritis of both hips, unspecified osteoarthritis type Osteoarthritis of both acromioclavicular joints Osteoarthritis of both glenohumeral joints Impingement syndrome of both shoulders Primary osteoarthritis of both knees Osteoarthritis of both wrists, unspecified osteoarthritis type Osteoarthritis of both hands, unspecified osteoarthritis type Plaque psoriasis 1. Time was spent with the patient today in education in re: to all their medical conditions. A complete H&P&ROS was obtained and is either in this note or in the EHR. Please do not hesitate to contact me with any questions or concerns re: this patient. Past History Past medical, surgical, family, and social histories have been reviewed and updated with the patient today and are located elsewhere in the medical record. 2. Thank you for allowing me to participate in the care of your patient. With your permission I would like to F/U with your patient. 3. Call if need Rx's 4. 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 Allergy to Humira - makes the psoriasis worse 6. Allergy to Cosentyx - makes the psoriasis worse 7. Repeat Vit D level on or about 11/13/2020 with copy to PCP 8. Monitor CBC/LFT/Renal func every 6-12 months as long as patient is on daily NSAID 9. F/U with me in 10. Enbrel did not help 11. Remicade did not help 12. Methotrexae did not help 13. Otezla did not help 14. Chronic Pain Management F/U per Dr. Solano in [place]. 15. TB test was negative 16. Negative HLA-B27, ANCA, JOVAN, Hep A&B&C serology, Celiac, CCP, 17. CLAUDIA level was normal at 29 18. Hold Methtorexate week before, week during and, week after any surgery. Hold Methotrexate any time have an infection can restart once off of ATB and/or antiviral and free of infection. Hold Methotrexate week before, week during and, week after any live attenuated vaccine (shingles). Monitor CBC/LFT/Renal func every 2-3 months on Methotrexate. Hold Methotrexate anytime there is an open wound and can restart once wound has healed 19. Patient should hold Stelera month before and month after surgery or live vaccine (shingles). Patient should hold Stelera if infection can restart once off of ATB and/or antiviral and free of infection. Hold Stelera if open wound can restart once wound has healed. 20. ESR was normal at 6 and still is 9 21. Monitor Vit D level every 6 -12 months if remains low rec: eval by endo 22. CRP was negative at < 0.5 and still is at 0.7 23. Patient declines referral to ortho 24. At patient's request will set up with sports medicine - will try to do that again for the patient but patient declines again 25. Lab on or about 07/14/2020 and every 2 months thereafter 26. Patient stopped Prednisone due to swelling and headaches and wt gain. 27Derm F/U per Dr. Bear Antoine. 28. 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 sys temic steroids Encounter for long-term (current) use of steroids Methotrexate, custodial, cur rent use Encounter for long-term (current) use of other medications Long-term current use of hig h risk medication other than anticoagulant Lumbosacral spondylosis with out myelopathy Disorder of bone and cartila ge Disorder of bone and cartilage, unspecified Plaque psoriasis Cervicalgia Dorsalgia Pain in thoracic spine Chronic pain of both shoulde rs Pain in joint, shoulder region Bilateral elbow joint pain Bilateral wrist pain Bilateral hand pain Pain in limb Chronic pain of both knees Diagnosis Vitamin D deficiency - Prima ry Unspecified vitamin D deficiency Diagnosis Vitamin D deficiency- Primary Unspecified vitamin D deficiency Diagnosis Psoriatic arthritis- Primary Psoriatic arthropathy 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 Psoriasis Other psoriasis Anemia, unspecified type 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) Encounter for long-term (current) use of non-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-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 care home current use of 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 Encounter for long-term (current) use of steroids Methotrexate, custodial, current use Encounter for long-term (current) use of other medications Long-term current use of high risk medication other than anticoagulant Vitamin D deficiency Unspecified vitamin D deficiency Lumbosacral spondylosis without myelopathy Osteoarthritis of cervical spine, unspecified spinal osteoarthritis complication status DDD (degenerative disc disease), cervical Degeneration of cervical intervertebral disc Osteoarthritis of both hips, unspecified osteoarthritis type Osteoarthritis of both acromioclavicular joints Osteoarthritis of both glenohumeral joints Impingement syndrome of both shoulders Other affections of shoulder region, not elsewhere classified Primary osteoarthritis of both knees Primary localized osteoarthrosis, lower leg Osteoarthritis of both wrists, unspecified osteoarthritis type Osteoarthritis of both hands, unspecified osteoarthritis type Plaque psoriasis Diagnosis Psoriatic arthritis Psoriatic arthropathy 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 Psoriatic arthropathy SAPHO syndrome Traumatic spondylopathy Psoriasis Other psoriasis Anemia, unspecified type 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) Encounter for long-term (current) use of non-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-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 Encounter for long-term (current) use of steroids Methotrexate, custodial, current use Encounter for long-term (current) use of other medications Long-term current use of high risk medication other than anticoagulant Vitamin D deficiency Unspecified vitamin D deficiency Lumbosacral spondylosis without myelopathy Osteoarthritis of cervical spine, unspecified spinal osteoarthritis complication status DDD (degenerative disc disease), cervical Degeneration of cervical intervertebral disc Osteoarthritis of both hips, unspecified osteoarthritis type Osteoarthritis of both acromioclavicular joints Osteoarthritis of both glenohumeral joints Impingement syndrome of both shoulders Other affections of shoulder region, not elsewhere classified Primary osteoarthritis of both knees Primary localized osteoarthrosis, lower leg Osteoarthritis of both wrists, unspecified osteoarthritis type Osteoarthritis of both hands, unspecified osteoarthritis type Plaque psoriasis Other psoriasis Diagnosis Psoriatic arthritis Psoriatic arthropathy 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 Psoriatic arthropathy SAPHO syndrome Traumatic spondylopathy Psoriasis Other psoriasis Anemia, unspecified type care 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) Encounter for long-term (current) use of non-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-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 Encounter for long-term (current) use of steroids Methotrexate, custodial, current use Encounter for long-term (current) use of other medications Long-term current use of high risk medication other than anticoagulant Vitamin D deficiency Unspecified vitamin D deficiency Lumbosacral spondylosis without myelopathy Osteoarthritis of cervical spine, unspecified spinal osteoarthritis complication status DDD (degenerative disc disease), cervical Degeneration of cervical intervertebral disc Osteoarthritis of both hips, unspecified osteoarthritis type Osteoarthritis of both acromioclavicular joints Osteoarthritis of both glenohumeral joints Impingement syndrome of both shoulders Other affections of shoulder region, not elsewhere classified Primary osteoarthritis of both knees Primary localized osteoarthrosis, lower leg Osteoarthritis of both wrists, unspecified osteoarthritis type Osteoarthritis of both hands, unspecified osteoarthritis type Plaque psoriasis Other psoriasis Diagnosis Psoriatic arthritis- Primary Psoriatic arthropathy 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 Psoriatic arthropathy 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 arthritis Personal history of arthritis care 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) Encounter for long-term (current) use of non-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-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 care home current use of 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 Encounter for long-term (current) use of steroids Long-term current use of high risk medication other than anticoagulant Methotrexate, long term care pharmacist, current use Encounter for long-term (current) use of other medications Noncompliance Personal history of noncompliance with medical treatment, presenting hazards to health Patient non adherence Personal history of noncompliance with medical treatment, presenting hazards to health Vitamin D deficiency Unspecified vitamin D deficiency DDD (degenerative disc disease), cervical Degeneration of cervical intervertebral disc Impingement syndrome of both shoulders Other affections of shoulder region, not elsewhere classified Lumbosacral spondylosis without myelopathy Osteoarthritis of cervical spine, unspecified spinal osteoarthritis complication status Osteoarthritis of both acromioclavicular joints Osteoarthritis of both glenohumeral joints Osteoarthritis of both hands, unspecified osteoarthritis type Osteoarthritis of both hips, unspecified osteoarthritis type Osteoarthritis of both wrists, unspecified osteoarthritis type Primary osteoarthritis of both knees Primary localized osteoarthrosis, lower leg Plaque psoriasis Other psoriasis Psoriasis Other psoriasis Diagnosis Psoriatic arthritis- Primary Psoriatic arthropathy 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 Psoriatic arthropathy SAPHO syndrome Traumatic spondylopathy Anemia, unspecified type 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 arthritis 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) Encounter for long-term (current) use of non-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-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 Encounter for long-term (current) use of steroids Long-term current use of high risk medication other than anticoagulant Methotrexate, long term care pharmacist, current use Encounter for long-term (current) use of other medications Vitamin D deficiency Unspecified vitamin D deficiency DDD (degenerative disc disease), cervical Degeneration of cervical intervertebral disc Impingement syndrome of both shoulders Other affections of shoulder region, not elsewhere classified Osteoarthritis of cervical spine, unspecified spinal osteoarthritis complication status Osteoarthritis of both acromioclavicular joints Osteoarthritis of both glenohumeral joints Osteoarthritis of both hands, unspecified osteoarthritis type Osteoarthritis of both hips, unspecified osteoarthritis type Osteoarthritis of both wrists, unspecified osteoarthritis type Primary osteoarthritis of both knees Primary localized osteoarthrosis, lower leg Plaque psoriasis Other psoriasis Psoriasis Other psoriasis Diagnosis Psoriatic arthritis Psoriatic arthropathy 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 Psoriatic arthropathy Psoriasis Other psoriasis SAPHO syndrome Traumatic spondylopathy 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 arthritis 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) Encounter for long-term (current) use of non-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-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 Methotrexate, long term care pharmacist, current use Encounter for long-term (current) use of other medications Long-term current use of high risk medication other than anticoagulant Vitamin D deficiency Unspecified vitamin D deficiency Osteoarthritis of cervical spine, unspecified spinal osteoarthritis complication status DDD (degenerative disc disease), cervical Degeneration of cervical intervertebral disc Osteoarthritis of both hips, unspecified osteoarthritis type Osteoarthritis of both acromioclavicular joints Osteoarthritis of both glenohumeral joints Impingement syndrome of both shoulders Other affections of shoulder region, not elsewhere classified Primary osteoarthritis of both knees Primary localized osteoarthrosis, lower leg Osteoarthritis of both wrists, unspecified osteoarthritis type Osteoarthritis of both hands, unspecified osteoarthritis type Plaque psoriasis Other psoriasis Diagnosis Psoriatic arthritis- Primary Psoriatic arthropathy Psoriasis Other psoriasis Plaque psoriasis Other psoriasis Methotrexate, custodial, current use Encounter for long-term (current) use of other medications Long-term current use of high risk medication other than anticoagulant care 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) Encounter for long-term (current) use of non-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-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 arthritis Personal history of arthritis Abnormal renal function test Nonspecific abnormal results of kidney function study Vitamin D deficiency Unspecified vitamin D deficiency Primary osteoarthritis of both knees Primary localized osteoarthrosis, lower leg Osteoarthritis of both wrists, unspecified osteoarthritis type Osteoarthritis of both hips, unspecified osteoarthritis type Osteoarthritis of both hands, unspecified osteoarthritis type Osteoarthritis of both glenohumeral joints Osteoarthritis of both acromioclavicular joints Osteoarthritis of cervical spine, unspecified spinal osteoarthritis complication status Impingement syndrome of both shoulders Other affections of shoulder region, not elsewhere classified DDD (degenerative disc disease), cervical Degeneration of cervical intervertebral disc Psoriatic spondylitis Psoriatic arthropathy 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 Diagnosis Psoriatic arthritis Psoriatic arthropathy Psoriatic spondylitis Psoriatic arthropathy Psoriasis Other psoriasis Plaque psoriasis Other psoriasis Anemia, unspecified type Methotrexate, custodial, current use Encounter for long-term (current) use of other medications Long-term current use of high risk medication other than anticoagulant care home current use of 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 Encounter for long-term (current) 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) Encounter for long-term (current) use of non-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-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 arthritis Personal history of arthritis Vitamin D deficiency Unspecified vitamin D deficiency Primary osteoarthritis of both knees Primary localized osteoarthrosis, lower leg Osteoarthritis of both wrists, unspecified osteoarthritis type Osteoarthritis of both hips, unspecified osteoarthritis type Osteoarthritis of both hands, unspecified osteoarthritis type Osteoarthritis of both glenohumeral joints Osteoarthritis of both acromioclavicular joints Osteoarthritis of cervical spine, unspecified spinal osteoarthritis complication status Impingement syndrome of both shoulders Other affections of shoulder region, not elsewhere classified DDD (degenerative disc disease), cervical Degeneration of cervical intervertebral disc Diagnosis Psoriatic arthritis- Primary Psoriatic arthropathy Psoriatic spondylitis Psoriatic arthropathy Psoriasis Other psoriasis Plaque psoriasis Other psoriasis Anemia, unspecified type Methotrexate, custodial, current use Encounter for long-term (current) use of other medications Long-term current use of high risk medication other than 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 Encounter for long-term (current) use of steroids care 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) Encounter for long-term (current) use of non-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-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 arthritis Personal history of arthritis Vitamin D deficiency Unspecified vitamin D deficiency Primary osteoarthritis of both knees Primary localized osteoarthrosis, lower leg Osteoarthritis of both wrists, unspecified osteoarthritis type Osteoarthritis of both hips, unspecified osteoarthritis type Osteoarthritis of both hands, unspecified osteoarthritis type Osteoarthritis of both glenohumeral joints Osteoarthritis of both acromioclavicular joints Osteoarthritis of cervical spine, unspecified spinal osteoarthritis complication status Impingement syndrome of both shoulders Other affections of shoulder region, not elsewhere classified DDD (degenerative disc disease), cervical Degeneration of cervical intervertebral disc Diagnosis Vitamin D deficiency- Primary Unspecified vitamin D deficiency Diagnosis Psoriatic arthritis- Primary Psoriatic arthropathy 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 Psoriatic arthropathy Psoriasis Other psoriasis SAPHO syndrome Traumatic spondylopathy 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 arthritis Personal history of arthritis care 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) Encounter for long-term (current) use of non-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-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 Methotrexate, custodial, current use Encounter for long-term (current) use of other medications Long-term current use of high risk medication other than anticoagulant Vitamin D deficiency Unspecified vitamin D deficiency Osteoarthritis of cervical spine, unspecified spinal osteoarthritis complication status DDD (degenerative disc disease), cervical Degeneration of cervical intervertebral disc Osteoarthritis of both hips, unspecified osteoarthritis type Osteoarthritis of both acromioclavicular joints Osteoarthritis of both glenohumeral joints Impingement syndrome of both shoulders Other affections of shoulder region, not elsewhere classified Primary osteoarthritis of both knees Primary localized osteoarthrosis, lower leg Osteoarthritis of both wrists, unspecified osteoarthritis type Osteoarthritis of both hands, unspecified osteoarthritis type Plaque psoriasis Other psoriasis Summary Purpose Family History No Family History Records FoundNo Family History Records FoundNo Family History Records FoundNo Family History Records FoundNo Family History Records FoundNo Family History Records FoundNo Family History Records Found Advance Directives No Advanced Directives Records FoundNo Advanced Directives Records FoundNo Advanced Directives Records FoundNo Advanced Directives Records FoundNo Advanced Directives Records FoundNo Advanced Directives Records FoundNo Advanced Directives Records Found Additional Source Comments Reason for Visit (unrecogniz ed section and content) Reason Comments Joint Pain Patient was sent by his PCP Dr. Luz. Patient states he recently moved to [place] from [place]. 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 Patient states he seen a engineering technician Dr. Fawad Driver but they did not help treat is psoriasis. Reason Comments Results Reason Comments Medication Management Reason Comments Insurance Stelara Reason Comments Insurance Dosoquin Reason Comments Joint Pain Patient is here toda y for his 2 week F/U and patient has disability forms. Patient is still having joint pain everyday Reason Comments Referral Reason Comments Medication Refill Reason Comments Joint Pain Patient is here toda y for his 4 month F/U. Patient states he is having severe pain everyday. Patient states the stelara does not help with his joint pain. Patient has been having severe joint pain for 4 months now. Reason Comments Insurance Halobetasol 0.05% Reason Comments Joint Pain Patient is here toda y for his 4 Month F/U. Patient states he is having severe joint pain. Patient states the Stelara helps with some of his joint pain. Patient states he had to stop the prednisone because he was getting swelling, weight gain, and headaches. Reason Comments Joint Pain Patient is here toda y for his 4 Month F/U. Patient states he has been doing okay since his last appointment. Patient states he has been walking more which seems to help with his joint pain. Patient states his medications are still working good. Reason Comments Joint Pain Patient is here toda y for his 4 Month F/U. Patient states he has been doing okay since his last appointment. 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 Reason Comments Medication Refill Reason Comments Joint Pain Patient is here toda y for his 4 month F/U. Patient states he is still having severe pain. Patient states his symptoms are the same. Patient states he would like refills on his Triamcinolong ointment and Halobeta cream. Reason Comments Joint Pain Patient is here for a 6 Month F/U. Patient states that he had a hernia repair last sunday and is doing well. Patient states that he has pain all over. Patient states that he has been doing okay since his last appointment. Patient has lost 39 pounds since we have last seen him. Patient states he has seen a engineering technician Bear antoine and she recommends Taltz instead of stelara Reason Comments Joint Pain Patient is here toda y for his 6 Month F/U. Patient states he still has good days and bad days. Patient states he still has mild joint pain every day. Patient states the Stelara is working good and helping with his joint pain. Reason Comments Joint Pain Patient is here toda y for his 6 Month F/U. 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 Patient states he has joint pain every day. Patient states Reason Comments Follow-up Six month follow up for psoriatic arthritis. Reports is experiencing more muscle spasms in his legs, feels condition is worsening some. Reason Comments Follow-up Patient is here for 6 month F/U. Patient states that he is having pain all over today. (unrecognized sect ion and content) No Status Records FoundNo Status Records FoundNo Status Records FoundNo Status Records FoundNo Status Records FoundNo Status Records FoundNo Status Records Found INFORMATION SOURCE (unrecogn ized section and content) DATE CREATED AUTHOR 07/29/2020 [facility] DATE CREATED AUTHOR AUTHOR'S ORGANIZ ATION 03/21/2021 [facility] dical Specialist DATE CREATED AUTHOR AUTHOR'S ORGANIZ ATION 01/11/2022 [facility] DATE CREATED AUTHOR AUTHOR'S ORGANIZ ATION 08/12/2022 [facility] DATE CREATED AUTHOR AUTHOR'S ORGANIZ ATION 11/21/2022 [facility] DATE CREATED AUTHOR AUTHOR'S ORGANIZ ATION 01/24/2023 [facility] DATE CREATED AUTHOR AUTHOR'S ORGANIZ ATION 04/08/2023 [facility] Care Teams (unrecognized sec tion and content) 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 Relationship Specialty Start Date End Date Rodrigo Luz MD [address] [place] [id number] PCP - General Family Medicine 12/31/17 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 Relationship Specialty Start Date End Date Rodrigo Luz MD [address], [place] [id number] PCP - General Family Medicine 12/31/17 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 Relationship Specialty Start Date End Date Rodrigo Luz MD [address], [place] [id number] PCP - General Family Medicine 12/31/17 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 This clinical summary was aggregated from multiple sources. Caution should be exercised in using it in the provision of clinical care. This summary normalizes information from multiple sources, and as a consequence, information in this document may materially change the coding, format and clinical context of patient data. In addition, data may be omitted in some cases. CLINICAL DECISIONS SHOULD BE BASED ON THE PRIMARY CLINICAL RECORDS. [facility] [employer] [facility]. provides no warranty or guarantee of the accuracy or completeness of information in this document.
[2023-04-27 11:13] LABS: Alanine Aminotransferase 44 U/L (16-63); Aspartate Amino Transferase 18 U/L (15-37); Estimated GFR (African America >60 (>=60); Estimated GFR (Non-African Ame 52 (>=60)
[2023-04-27 11:14] LABS: C Reactive Protein <0.50 mg/dL (<=0.50)
[2023-04-27 12:09] LABS: Basophils Absolute Auto 0.1 10^3/uL (0.0-0.1); Eosinophils Absolute Auto 0.1 10^3/uL (0.0-0.7); Hematocrit 40.9 % (42.0-54.0); Hemoglobin 13.1 g/dL (14.0-18.0); Immature Granulocytes Abs Auto 0.02 10^3/uL (0.00-0.03); Immature Granulocytes Pct Auto 0.3 % (0.0-0.5); Lymphocytes Absolute Auto 0.8 10^3/uL (1.2-3.8); Lymphocytes Percent Auto 14.4 % (20.5-60.0); Mean Corpuscular Hemoglobin 34.7 pg (25.9-34.0); Mean Corpuscular Volume 108.5 fL (80.0-94.0); Mean Platelet Volume 9.9 fL (9.5-13.5); Monocytes Absolute Auto 0.7 10^3/uL (0.3-0.8); Monocytes Percent Auto 11.3 % (1.7-12.0); Neutrophils Absolute Auto 4.2 10^3/uL (1.4-6.5); Platelet Count 265 10^3/uL (150-450); Red Blood Count 3.77 10^6/uL (4.70-6.10); White Blood Count 5.8 10^3/uL (4.0-11.0)
[2023-04-27 13:29] LABS: Erythrocyte Sedimentation Rate 26 mm/hr (<=20)
== END 2023-04-27 10:19 | disposition home or self-care (01) ==
LOC: LAB 10:19
PROVIDERS: PCP Family Medicine
DX: L40.50 Arthropathic psoriasis, unspecified (principal); L40.51 Distal interphalangeal psoriatic arthropathy; L40.53 Psoriatic spondylitis; L40.0 Psoriasis vulgaris; L40.9 Psoriasis, unspecified; M65.9 Synovitis and tenosynovitis, unspecified; M86.9 Osteomyelitis, unspecified; M85.80 Other specified disorders of bone density and structure, unspecified site; L40.3 Pustulosis palmaris et plantaris; L70.9 Acne, unspecified; Z87.442 Personal history of urinary calculi; Z87.2 Personal history of diseases of the skin and subcutaneous tissue; Z79.899 Other long term (current) drug therapy; Z79.631 Long term (current) use of antimetabolite agent; E55.9 Vitamin D deficiency, unspecified; M40.30 Flatback syndrome, site unspecified; M75.41 Impingement syndrome of right shoulder; M75.42 Impingement syndrome of left shoulder; M47.812 Spondylosis without myelopathy or radiculopathy, cervical region; M19.012 Primary osteoarthritis, left shoulder; M19.011 Primary osteoarthritis, right shoulder; M16.0 Bilateral primary osteoarthritis of hip; M19.031 Primary osteoarthritis, right wrist; M19.032 Primary osteoarthritis, left wrist; M17.0 Bilateral primary osteoarthritis of knee
CPT/HCPCS: 36415; 82565; 84450; 84460; 85025; 85652; 86140

== ENCOUNTER 2023-05-30 09:42 | Outpatient (OUT) | payer OTHER, SELFPAY ==
--- NOTE | 2023-05-30 10:17 | P.CN_ITS ---
Consult Note: HPI Data of Consult Patient: known to practice within the last 3 years Requesting Physician: Negra Solorzano NP Primary Care Provider: RODRIGO BRINK Consult Narrative Reason for consult: f/u Narrative: Patrick Buckley a pleasant 57 year old male presents for evaluation and management of chronic pain. Today pain is in all over and 10/10. Patient reports pain is stiff and stabbing. Pain is increased with sitting, standing, walking, lifting, bending, stairs, ADLs, activity. Pain decreased with medications and heat/ice. Patient has been taking tizanidine 4mg BID PRN, amitriptyline 25mg HS, gabapentin 300mg BID, norco 5-325 mg BID PRN moderate to severe pain. Patient recently had EMG completed which is consistent with cervical radiculopathy at C8. Patient continues to have numbness tingling weakness of BUE and BLE. No falls, no loss of bowel or bladder. Pt follows with rheumatology Q6 months and is on methotrexate for psoriatic arthritis. cc:: CC: Negra Solorzano NP Review of Systems ROS Status of ROS 10 or more systems reviewed and unremark able except as noted in history and below Musculoskeletal Reports: back pain, neck pain, extremity pain, joint pain and muscle weakness PFSH PFS Medical History (Updated 05/30/23 @ 10:29 by Negra Solorzano NP) Psoriatic arthritis ?L40.50 - Arthropathic psoriasis, unspecified (ICD-10) Osteoarthritis ?M19.90 - Unspecified osteoarthritis, unspecified site (ICD-10) Upper back pain ?M54.9 - Dorsalgia, unspecified (ICD-10) Low back pain ?M54.50 - Low back pain, unspecified (ICD-10) Neck pain ?M54.2 - Cervicalgia (ICD-10) Numbness and tingling ?R20.0 - Anesthesia of skin (ICD-10) ?R20.2 - Paresthesia of skin (ICD-10) Hypertension ?I10 - Essential (primary) hypertension (ICD-10) Surgical History H/O umbilical hernia repair ?Z98.890 - Other specified postprocedural states (ICD-10) ?Z87.19 - Personal history of other diseases of the digestive system (ICD-10) H/O ventral hernia repair ?Z98.890 - Other specified postprocedural states (ICD-10) ?Z87.19 - Personal history of other diseases of the digestive system (ICD-10) H/O gastric bypass ?Z98.84 - Bariatric surgery status (ICD-10) History of herniorrhaphy ?Z98.890 - Other specified postprocedural states (ICD-10) ?Z87.19 - Personal history of other diseases of the digestive system (ICD-10) History of appendectomy ?Z90.49 - Acquired absence of other specified parts of digestive tract (ICD- 10) Meds Home Medications and Allergies Home Medications Medication Instructions Recorded Confirmed Type amitriptyline 25 mg tablet 25 mg PO .HS 10/02/22 12/05/22 History amlodipine 10 mg tablet 10 mg PO .QD 10/02/22 12/05/22 History azelastine 137 mcg-fluticasone 50 1 spray intranasal .QD 10/02/22 12/05/22 History mcg/spray nasal spray bisoprolol 10 1 tab PO .QD 10/02/22 12/05/22 History mg-hydrochlorothiazide 6.25 mg tablet calcium carbonate 500 mg-vitamin 1 tab PO BID 10/02/22 12/05/22 History D3 5 mcg (200 unit) tablet (Oyster Shell Calcium-Vitamin D3) cetirizine 10 mg tablet 10 mg PO .QD 10/02/22 12/05/22 History cyanocobalamin (vitamin B-12) 1,000 mcg PO DAILY 10/02/22 12/05/22 History 1,000 mcg capsule diclofenac sodium 75 mg 75 mg PO BID 10/02/22 12/05/22 History tablet,delayed release folic acid 1 mg tablet 1 mg PO .QD 10/02/22 12/05/22 History gabapentin 300 mg capsule 300 mg PO BID 10/02/22 12/05/22 History halobetasol propionate 0.05 % applic topical BID 10/02/22 History topical cream hydrochlorothiazide 25 mg tablet 25 mg PO DAILY 10/02/22 12/05/22 History hydrocodone 5 mg-acetaminophen 325 tab PO BID PRN pain 10/02/22 History mg tablet hyoscyamine sulfate 0.125 mg tablet 0.125 mg PO Q6H PRN dyspepsia 10/02/22 12/05/22 History methotrexate sodium 2.5 mg tablet 2.5 mg PO QWEEK 10/02/22 12/05/22 History multivitamin 1 tab PO DAILY 10/02/22 12/05/22 History sulindac 200 mg tablet 200 mg PO .QD 10/02/22 12/05/22 History tazarotene 0.1 % topical foam topical 10/02/22 History tizanidine 4 mg tablet 4 mg PO BID PRN muscle spasticity 10/02/22 12/05/22 History triamcinolone acetonide 0.1 % applic topical BID 10/02/22 History topical cream hydrocodone 5 mg-acetaminophen 325 1 tab PO BID PRN pain #60 tabs 11/20/22 12/05/22 Rx mg tablet hydrocodone 5 mg-acetaminophen 325 1 tab PO BID PRN pain #60 tabs 12/25/22 Rx mg tablet hydrocodone 5 mg-acetaminophen 325 1 tab PO BID PRN pain #60 tabs 12/29/22 Rx mg tablet hydrocodone 5 mg-acetaminophen 325 1 tab PO BID PRN pain #60 tabs 12/29/22 Rx mg tablet hydrocodone 5 mg-acetaminophen 325 1 tab PO BID PRN pain #60 tabs 01/22/23 Rx mg tablet hydrocodone 5 mg-acetaminophen 325 1 tab PO BID PRN pain #60 tabs 02/26/23 Rx mg tablet hydrocodone 5 mg-acetaminophen 325 1 tab PO BID PRN pain #60 tabs 03/22/23 Rx mg tablet hydrocodone 5 mg-acetaminophen 325 1 tab PO BID PRN pain #60 tabs 04/26/23 Rx mg tablet hydrocodone 5 mg-acetaminophen 325 1 tab PO BID PRN pain #60 tabs 05/24/23 Rx mg tablet Allergies Allergy/AdvReac Type Severity Reaction Status Date / Time adalimumab [From Humira] Allergy Verified 12/05/22 12:41 morphine Allergy Verified 12/05/22 12:41 secukinumab [From Cosentyx] Allergy Verified 12/05/22 12:41 Exam Narrative Exam Narrative: diffuse pain throughout neck, shoulders, upper mid and lower back, and thighs. characteristics of fibromyalgia noted. Constitutional Documenting provider has reviewed patient's vital signs: yes Common normals: no apparent distress, oriented x3, healthy appearing, alert and well nourished General appearance: cooperative HENMT Common normals: normocephalic, hearing grossly normal bilaterally and moist oral mucous membranes Head and scalp: normocephalic Mouth: oral and palatal mucosa normal Eye Common normals: PERRL Pupil: PERRL Neck & C-Spine Common normals: full ROM General: normal visual inspection Cervical spine: pain with cervical ROM and paracervical muscle tenderness Other: positive spurlings radiculopathy to RUE strength 4/5 in RUE 5/5 in LUE Chest Common normals: inspection of chest normal Respiratory Common normals: normal respiratory effort, no retractions and no use of accessory muscles Back & Pelvis Thoracic spine/upper back: normal to inspection Lumbar spine/lower back: normal to inspection, ROM limited, pain with ROM and paraspinal muscle tenderness Sacroiliac joints: SI joints normal Extremity Common normals: normal to inspection and full ROM Neuro Common normals: oriented x3, CN's II-XII intact bilaterally, moves all extremities, no focal motor deficits, no sensory deficits noted and deep tendon reflexes 2+ bilaterally Sensorium/orientation: alert Cranial nerves: CN normal except as noted Speech: speech normal Gait (neuro): normal gait Motor exam: no movement abnormalities noted and strength abnormal (4/5 in RUE 5/5 in LUE and BLE) Psych Common normals: mental status grossly normal, thought process normal, cooperative, affect normal, speech normal and activity/motor behavior normal Speech: normal speech Thought process: normal thought process Results Additional Findings Additional findings: I have checked an OARRS report on this patient today and there are no aberrancies noted in the prescribing history.?? A drug screen was completed and reviewed within the last year, and if there has not been a drug screen completed we ordered one today to monitor higher risk, state monitored pain medication use. As part of providing excellent, safe, comprehensive care, the following was completed at our patient's visit: 1. A medication reconciliation and review to ensure accurate knowledge of current/active medications, including asking our patients to inform us about any [id number]-[id number] medications or herbal remedies/nutritional supplements/alternative remedies. 2. A review to specifically ensure our patients have had annual screening for: elevated body mass index (BMI), tobacco use, screening for depression, and screening for unhealthy alcohol use. When screening is concerning, patients are provided with education and the specific recommendation to discuss the concerning health issue and treatment options with their primary care provider. Assessment and Plan Assessment and Plan (1) Cervical spondylosis: (2) Osteoarthritis: (3) Chronic prescription opiate use: (4) Muscle spasm: (5) Lumbar spondylosis: (6) Opioid-induced hyperalgesia: (7) Fibromyalgia: Plan cervical xray reviewed, EMG NCV reviewed positive for c8 radiculopathy. order MRI of cervical spine without contrsat to evaluate cause of radiculopathy, RUE weakness, and plan for injection therapy vs surgical consult increase gabapentin 300mg TID stop norco, concerned for opioid induced hyperalgesia vs fibromyalgia transdermal therapeutics cream was not sent to patient , we will call to clarify f/u after MRI, plan for cervical BELINDA
== END 2023-05-30 09:43 | disposition home or self-care (01) ==
LOC: PM 09:42
PROVIDERS: PCP Family Medicine; Visit Provider Nurse Practitioner
DX: M47.812 Spondylosis without myelopathy or radiculopathy, cervical region (principal); M19.90 Unspecified osteoarthritis, unspecified site; Z79.891 Long term (current) use of opiate analgesic; M62.838 Other muscle spasm; M47.816 Spondylosis without myelopathy or radiculopathy, lumbar region; R20.8 Other disturbances of skin sensation; M79.7 Fibromyalgia
CPT/HCPCS: G0463

== ENCOUNTER 2023-06-25 14:20 | Outpatient (OUT) | payer OTHER, SELFPAY ==
--- NOTE | 2023-06-25 14:29 | MR_ITS ---
The [address] [address] Patient Name: GLENDA VALENTE MRN: [id number] date: 1965 Sex: M Assigned Patient Location: MRI Current Patient Location: MRI Accession/Order Number: [id number] Exam Date: 06/25/2023 14:35 Report Date: 06/25/2023 15:50 At the request of: KEELEY PIERSON Procedure: MR cervical spine wo con MR cervical spine wo con, 06/25/2023 2:35 PM EDT INDICATION: Cervical Radiculopathy COMPARISON: Prior x-ray of the cervical spine dated 03/16/2023 TECHNIQUE: Multiplanar, multisequential MRI images of cervical spine were obtained with without contrast. FINDINGS: There is normal physiologic cervical lordosis. The vertebral heights are relatively preserved. The cervicomedullary junction is unremarkable. No definite signal abnormality within the spinal cord is noted. There are mild to moderate disc osteophyte complex associated with uncovertebral joint arthrosis from C3 to T1. Moderate left neuroforaminal narrowing and no canal stenosis at the level of C2-C3 is noted. At the level of C3-C4, there is mild bilateral neuroforaminal narrowing and no canal stenosis. At the level of C4-C5, there is moderate bilateral neuroforaminal narrowing and moderate canal stenosis. At the level of C5-C6, there is severe right and moderate left neuroforaminal narrowing and moderate canal stenosis. At the level of C6-C7, there is moderate bilateral neuroforaminal narrowing and mild canal stenosis. Level of C7-T1, there is moderate left and mild right neuroforaminal narrowing and no canal stenosis.. No definite muscular or ligamentous injury is noted. MR/MR cervical spine wo con IMPRESSION: Moderate degenerative changes of the cervical spine in particular at C4-C5 and C5-C6 and C6-C7. Electronically authenticated by: ALEXY BUTCHER Date: 06/25/2023 15:50
== END 2023-06-25 14:21 | disposition home or self-care (01) ==
LOC: MRI 14:22
PROVIDERS: PCP Family Medicine; Visit Provider Nurse Practitioner
DX: M54.12 Radiculopathy, cervical region (principal); M50.321 Other cervical disc degeneration at C4-C5 level; M50.322 Other cervical disc degeneration at C5-C6 level; M50.323 Other cervical disc degeneration at C6-C7 level
CPT/HCPCS: 72141

== ENCOUNTER 2023-07-03 14:00 | Outpatient (OUT) | payer OTHER, SELFPAY ==
--- NOTE | 2023-07-03 | CONS_ITS ---
CONSULTATION DATE: 07/03/2023 TO: Dr. Carrion CHIEF COMPLAINT: Includes right upper extremity pain. HISTORY: He reports the pain as being 10/10 in severity, deep aching, stabbing pain, increased with activities such as pushing/pulling maneuvers, lifting maneuvers. He feels most comfortable in the semi-recumbent position. Denies any change in bowel and bladder habits and reports progressing numbness/weakness in his right upper extremity. CURRENT MEDICATION: Includes gabapentin 300 mg t.i.d., tizanidine 4 mg b.i.d., amitriptyline 25 mg at h.s., methotrexate and is intolerant to non-steroidal agents. [place] was discontinued one month ago. EXAM: His examination is notable for patient having hypoesthesia along the right C6 dermatome, weakness of the right biceps strength and brachioradialis strength, rated at 3/5 strength in general. No appreciable Spurling?s sign was noted, and no signs consistent with myelopathy involving the upper extremities were noted. Patient did have significant myofascial spasm along the cervical paravertebral muscles on the right side as well. IMPRESSION: Our impression is patient with chronic pain secondary to known cervical spinal stenosis with clinical right C6 radiculopathy, especially with 3/5 strength involving the right brachioradialis and triceps, with depressed right brachioradialis reflex with hypoesthesia. RECOMMENDATIONS: I recommend he consider undergoing cervical epidural steroid injection, physical therapy, increase his gabapentin 300 mg pills, two in the morning, one in the afternoon, two at bedtime. Will also increase his tizanidine 4 mg pills, one in the morning and two at bedtime, and I spoke with Dr. Mcfadden for possible cervical decompression with stabilization. As part of providing excellent, safe, comprehensive care, the following was completed at our patient's visit: 1. A medication reconciliation and review to ensure accurate knowledge of current/active medications, including asking our patients to inform us about any [id number] medications or herbal remedies/nutritional supplements/alternative remedies. 2. A review to specifically ensure our patients have had annual screening for: elevated body mass index (BMI, see intake chart for exact total), tobacco use, screening for depression, and screening for unhealthy alcohol use. When screening is concerning, patients are provided with education and the specific recommendation to discuss the concerning health issue and treatment options with their primary care provider. CAROLIND
== END 2023-07-03 14:01 | disposition home or self-care (01) ==
LOC: PM 14:01
PROVIDERS: PCP Family Medicine; Visit Provider Anesthesiology Pain Medicine
DX: M79.621 Pain in right upper arm (principal); M48.02 Spinal stenosis, cervical region; M54.12 Radiculopathy, cervical region
CPT/HCPCS: G0463

== ENCOUNTER 2023-07-16 12:16 | Outpatient (OUT) | payer OTHER, SELFPAY ==
[2023-07-16 12:56] LABS: Basophils Absolute Auto 0.1 10^3/uL (0.0-0.1); Basophils Percent Auto 0.9 % (0.2-2.0); Eosinophils Absolute Auto 0.1 10^3/uL (0.0-0.7); Eosinophils Percent Auto 1.7 % (0.9-7.0); Immature Granulocytes Abs Auto 0.01 10^3/uL (0.00-0.03); Immature Granulocytes Pct Auto 0.2 % (0.0-0.5); Lymphocytes Absolute Auto 1.6 10^3/uL (1.2-3.8); Lymphocytes Percent Auto 29.4 % (20.5-60.0); Mean Corpuscular HGB Conc 31.7 g/dL (29.9-35.2); Mean Corpuscular Hemoglobin 34.8 pg (25.9-34.0); Mean Platelet Volume 9.5 fL (9.5-13.5); Monocytes Absolute Auto 0.4 10^3/uL (0.3-0.8); Monocytes Percent Auto 8.1 % (1.7-12.0); Neutrophils Absolute Auto 3.2 10^3/uL (1.4-6.5); Neutrophils Percent Auto 59.7 % (43.0-75.0); Platelet Count 277 10^3/uL (150-450); Red Blood Count 3.74 10^6/uL (4.70-6.10); Red Cell Distribution Width 14.2 % (11.0-15.0); White Blood Count 5.4 10^3/uL (4.0-11.0)
[2023-07-16 13:11] LABS: Alanine Aminotransferase 54 U/L (16-63); Aspartate Amino Transferase 16 U/L (15-37); C Reactive Protein <0.50 mg/dL (<=0.50); Estimated GFR (African America 58 (>=60); Estimated GFR (Non-African Ame 48 (>=60)
[2023-07-16 14:24] LABS: Mean Corpuscular Volume 109.6 fL (80.0-94.0)
[2023-07-16 14:25] LABS: Erythrocyte Sedimentation Rate 4 mm/hr (<=20)
== END 2023-07-16 12:17 | disposition home or self-care (01) ==
LOC: LAB 12:17
PROVIDERS: PCP Family Medicine
DX: L40.50 Arthropathic psoriasis, unspecified (principal); L40.51 Distal interphalangeal psoriatic arthropathy; L40.53 Psoriatic spondylitis; L40.0 Psoriasis vulgaris; L40.9 Psoriasis, unspecified; M65.9 Synovitis and tenosynovitis, unspecified; M86.9 Osteomyelitis, unspecified; M85.80 Other specified disorders of bone density and structure, unspecified site; L70.9 Acne, unspecified; L40.3 Pustulosis palmaris et plantaris; Z87.442 Personal history of urinary calculi; Z87.2 Personal history of diseases of the skin and subcutaneous tissue; Z79.899 Other long term (current) drug therapy; Z79.631 Long term (current) use of antimetabolite agent; E55.9 Vitamin D deficiency, unspecified; M50.30 Other cervical disc degeneration, unspecified cervical region; M75.41 Impingement syndrome of right shoulder; M75.42 Impingement syndrome of left shoulder; M47.812 Spondylosis without myelopathy or radiculopathy, cervical region; M19.011 Primary osteoarthritis, right shoulder; M19.012 Primary osteoarthritis, left shoulder; M19.041 Primary osteoarthritis, right hand; M19.042 Primary osteoarthritis, left hand; M16.0 Bilateral primary osteoarthritis of hip; M19.031 Primary osteoarthritis, right wrist; M19.032 Primary osteoarthritis, left wrist; M17.0 Bilateral primary osteoarthritis of knee
CPT/HCPCS: 36415; 82306; 82565; 84450; 84460; 85025; 85652; 86140

== ENCOUNTER 2023-07-17 07:46 | Day surgery (SDC) | payer OTHER, SELFPAY ==
[2023-07-17 08:20] VITALS: BP 116/80; PULSE 68; TEMP 36.2; O2SAT 98
[2023-07-17 09:10] VITALS: BP 104/67; PULSE 68; O2SAT 90
[2023-07-17 09:14] VITALS: BP 117/54; PULSE 65; O2SAT 91
[2023-07-17] MEDS: 0.9 % SODIUM CHLORIDE 10 ML SYRINGE - SALINE FLUSH 2 ML INJ (09:16)
[2023-07-17] MEDS: BUPIVACAINE HCL 0.25% PF 25 MG/10 ML VIAL 2 ML INJ (09:16)
[2023-07-17] MEDS: DEXAMETHASONE SOD PHOS 10 MG/ML VIAL INJ (09:17)
[2023-07-17] MEDS: LIDOCAINE HCL 2% PF 100 MG/5 ML VIAL 1.5 ML INJ (09:17)
[2023-07-17] MEDS: IOHEXOL 240 MG/ML - 10 ML VIAL 24 MG INJ (09:17)
--- NOTE | 2023-07-17 09:26 | P.ON_ITS ---
Date of procedure: 07/17/23 Pre-op diagnosis: Cervical neuritis Post-op diagnosis: same as pre-op Procedure: Cervical 7/Thoracic 1 Epidural Steroid Injection Under fluoroscopic guidance Immediate complications none Solution used for injection: Marcaine 0.25% 2mL, 2cc Normal saline, Dexamet hasone 10mg Omnipaque 3 mL Anesthesia local 2% lidocaine up to 4ml Timeout process compliant After informed consent obtained. Patient brought to the procedure room placed in the prone position. Skin overlying the area was prepped and draped in a sterile fashion using betadine. 25 gauge needle used to raise a skin wheel with local anesthetic over the target area identified under fluoroscopy. A 17 gauge Touhy needle Was inserted over the anesthetized area and directed towards the inter- space under fluoroscopic guidance. Epidural space was identified with loss of resistance technique to air. Needle Tip placement confirmed with injection of contrast solution. Steroid solution was then injected. Anesthesia: Local Surgeon: Romulo Moraes Condition: stable
--- OUTSIDE RECORDS SUMMARY | 2023-07-17 09:50 | XMS_ITS | CCD ---
Author Organization [facility] Care Team Providers Care Sidehand Name Role Phone Rodrigo Luz Unavailable PILI ALLAN Surgeon Unavailable PILI ALLAN Attending Unavailable PILI ALLAN Admitting Unavailable [place] Procedure Practitioner Unavailab RODRIGO Proctor Referring Unavailable RODRIGO LUZ Primary Care Unavailable DANIELA MILIAN Surgeon Unavailable [place] Procedure Practitioner UnavailRodrigo Cannon MD Primary Care Provider [phone] Rodrigo Luz MD Primary Care Provider TRA [...] DEMAR ., DR PAXTON Jarrett Admitting Unavailable SOLANO ., DR PAXTON Jarrett Attending Unavailable LUZ ., DR RODRIGO Kang Primary Care Unavailable KATHE .FRACISCO Consulting Unavailable NATTY ., DR RODRIGO Kang Primary Care Unavailable NGUYỄN ., MR DOAN Consulting Unavailable RUSTY ., JG Admitting Unavailable RUSTY ., JG Attending Unavailable TRA ALDRIDGE Consulting Unavailable TRA VALE Admitting Unavailable TRA VALE Attending Unavailable NATTY ., DR RODRIGO Kang Primary Care Unavailable TRA VALE Consulting Unavailable TRA VALE Admitting Unavailable TRA VALE Attending Unavailable LUZ ., DR RODRIGO Kang Primary Care Unavailable TRA VALE Consulting Unavailable LAKSHMIPATHY ., NARENDRANATH Admitting Sherly vailable LAKSHMIPATHY ., NARENDRANATH Attending Sherly vailable LUZ ., DR RODRIGO Kang Primary Care Unavailable LAKSHMIPATHY ., NARENDRANATH Consulting Sherly vailable SOLANO ., DR PAXTON Jarrett Admitting Unavailable SOLANO ., DR PAXTON Jarrett Attending Unavailable LUZ ., DR RODRIGO Kang Primary Care Unavailable SOLANO ., DR PAXTON Jarrett Consulting Unavailable CALLIE, LORI Consulting Unavailable GUSTAVO, ELEN Admitting Unavailable GUSTAVO, ELEN Attending Unavailable LUZ ., DR RODRIGO Kang Primary Care Unavailable FELTERBEAR Consulting Unavailable STAINBROOK, TRA Admitting Unavailable STAINBROOK, [...] ., NARENDRANATH Admitting Sherly vailable LAKSHMIPATHY ., NARENDSAMIATH Attending Sherly vailable LUZ ., DR RODRIGO Kang Primary Care Unavailable LAKSHMIPATHY ., NARENDRANATH Consulting Sherly vailable LAKSHMIPATHY ., NARENDRANATH Admitting Sherly vailable LAKSHMIPATHY ., NARENDSAMIATH Attending Sherly vailable LUZ ., DR RODRIGO Kang Primary Care Unavailable LAKSHMIPATHY ., NARENDSAMIATH Consulting Sherly vailable HALKER ., KEESHA Consulting Unavailable SOLANO ., DR PAXTON Jarrett Admitting Unavailable SOLANO ., DR PAXTON Jarrett Attending Unavailable LUZ ., DR RODRIGO Kang Primary Care Unavailable ARCHULETA ., FRACISCO Consulting Unavailable LUZ ., DR RODRIGO Kang Admitting Unavailable LUZ ., DR RODRIGO Kang Attending Unavailable LUZ ., DR RODRIGO Kang Primary Care Unavailable LUZ ., DR RODRIGO Kang Consulting Unavailable STAINBROOK, TRA Admitting Unavailable STAINBROOK, TRA Attending Unavailable LUZ ., DR RODRIGO Kang Primary Care Unavailable STAINBROOK, TRA Consulting Unavailable LUZ ., DR RODRIGO Kang Primary Care Unavailable KARO, PAT Admitting Unavailable KARO, PAT Attending Unavailable KARO, PAT Consulting Unavailable ARCHULETA [...] ARCHULETA ., FRACISCO Consulting Unavailable German Carrion E. Primary Care Physician RODRIGO LUZ Primary Care Unavailable LUZ, RODRIGO Primary Care Unavailable LUZ, RODRIGO Primary Care Unavailable LUZ, RODRIGO Primary Care Unavailable Luz Rodrigo MASON Primary Care Provider [phone] RODRIGO LUZ Primary Care Unavailable SELF, SELF Referring Unavailable STAINBROOK JR., TRA Vasquez Attending Unavaila ble STAINBROOK JR., TRA Vasquez Attending Unavaila ble LUZ, RODRIGO Primary Care Unavailable SELF, SELF Referring Unavailable German Carrion E. Attending Unavailable Ross, German E. Attending Unavailable Ross, German E. Attending Unavailable Ross, German E. Attending Unavailable Ross, German E. Attending Unavailable Ross, German E. Referring Unavailable Yusuf FINE Attending Unavailable Ross, German E. Referring Unavailable Yusuf FINE R Attending Unavailable Ross, German E. Attending Unavailable Ross, German E. Admitting Unavailable Ross, German E. Referring Unavailable Ross, German E. Admitting Unavailable Ross, German E. Attending Unavailable JackYakelin lamb L Attending Unavailable JackYakelin L Admitting Unavailable Ross, German E. Attending Unavailable Ross, German E. Admitting Unavailable Ross, German E. Attending Unavailable Ross, German E. Attending Unavailable Allergies Allergy Classification Reported Allergen(s) Allergy Type Date of Onset Reaction(s) Facility adalimumab (1 source) adalimumab; Translations: [HUMIRA] Drug Allergy 8 [facility] Repository Opioid Agonists (1 source) Morphine; Translations: [MORPHINE] Drug Allergy 8 [facility] Repository secukinumab (1 source) secukinumab; Translations: [COSENTYX] Drug Allergy 8 [facility] Repository (20 sources) adalimumab; Translations: [adalimumab] Drug Allergy rash [facility] Work Phone: (20 sources) Morphine; Translations: [morphine] Drug Allergy 1 Unknown (qualifier value) [facility] Work Phone: (20 sources) secukinumab; Translations: [secukinumab] Drug Allergy rash [facility] Work Phone: (1 source) adalimumab Drug Allergy [facility] Repository (1 source) Morphine Drug Allergy [facility] Repository (1 source) secukinumab Drug Allergy [facility] Repository Medications Current Medications Medication Drug Class(es) Dates Sig (Normalized) Sig (Original) amitriptyline hydrochloride 25 mg oral tablet (9 sources) Tricyclic Antidepressant Start: 05-17-2023 take 2 tablets by mouth at bedtime amitriptyline 25 mg Tab See Instructions, TAKE 2 TABLETS BY MOUTH AT BEDTIME, # 60 tab(s), Refills(s) 5, Pharmacy: [facility]/pharmacy #[id number], 180.3, cm, 05/17/23 9:51:00 EST, Height/Length Dosing, 105.1, kg, 05/17/23 9:51:00 EST, Weight Dosing Start Date: 05/17/23 Status: Ordered Start: 06-20-2020 take 2 tablets by mo nmh once daily at bedtime amitriptyline 25 mg Tab 50 mg = 2 tab(s), Oral, Once a day (at bedtime), # 180 tab(s), Refills(s) 5, Pharmacy: [facility]/pharmacy #[id number], 180.3, cm, 11/15/22 16:44:00 EDT, Height/Length Dosing, 106.5, kg, 11/15/22 16:44:00 EDT, Weight Dosing Start Date: 11/15/22 Status: Ordered Amitriptyline HC l Active amLODIPine 5 mg oral tablet (20 sources) Dihydropyridine Calcium Channel Colette Start: 07-26-2022 take 1 tablet by mouth once daily amLODIPine 5 mg Tab 5 mg = 1 tab(s), Oral, Daily, # 90 tab(s), Refills(s) 3, [id number] Start Date: 07/26/22 Status: Ordered take 1 tablet by mouth once nate y amLODIPine 10 MG Tab tablet amlodipine 10 mg tablet Take 1 tablet every day by oral route. 0 Active amLODIPine Benzoate (1 source) amLODIPine Benzoate Active Bisoprolol (1 source) beta-Adrenergic Colette Bisoprolol Fumarate Active bisoprolol fumarate 10 mg / hydroCHLOROthiazide 6.25 mg oral tablet (8 sources) Thiazide Diuretic, beta-Adrenergic Colette Start: 03-13-20 take 1 tablet by mouth once daily bisoprolol-hydroch lorothiazide 10 mg-6.25 mg Tab 1 tab(s), Oral, Daily, 90 tab(s), Refill(s) 1, [id number], cm, 03/05/23 14:04:00 EST, Height/Length Dosing, 102, kg, 03/05/23 14:04:00 EST, Weight Dosing Start Date: 03/13/23 Status: Ordered Start: 07-09-2020 take 1 tablet by eloy th once daily in the morning bisoprolol-hydrochlorothiazide 10-6.25 M G per tablet TAKE 1 TABLET BY MOUTH EVERY DAY IN THE MORNING 0 07/09/2020 Active 24 hr buPROPion hydrochloride 150 mg extended release oral tablet (3 sources) Aminoketone Start: 01-12-2023 take 1 tablet by mouth every twenty-four hours buPROPion 150 mg/24 hours XL Tab 150 mg = 1 tab(s), Oral, q24hr, # 90 tab(s), Refills(s) 1, [id number] 180.3, cm, 11/15/22 16:44:00 EDT, Height/Length Dosing, 106.5, kg, 11/15/22 16:44:00 EDT, Weight Dosing Start Date: 01/12/23 Status: Ordered Start: 10-23-2022 take 1 tablet by eloy th every twenty-four hours buPROPion 150 mg/24 hours XL Tab 150 mg = 1 tab(s), Oral, q24hr, # 90 tab(s), Refills(s) 0, Pharmacy: [facility]/pharmacy #[id number], 180.3, cm, 10/20/22 8:11:00 EDT, Height/Length Dosing, 109.1, kg, 10/20/22 8:11:00 EDT, Weight Dosing Start Date: 10/23/22 Status: Ordered calcium carbonate 1250 mg / cholecalciferol 200 unt oral tablet (12 sources) Vitamin D Start: 08-26-2019 take 1 tablet by mouth twice daily Calcium Carbonate-Vitamin D (Oyster Shell Calcium/D) 500-200 MG-UNIT tablet Take 1 tablet by mouth 2 times daily. 0 06/22/2020 Active cetirizine hydrochloride 10 mg oral tablet (20 sources) Histamine-1 Receptor Antagonist Start: 05-31-2023 take 1 tablet by mouth once daily cetirizine 10 mg Tab See Instructions, TAKE 1 TABLET BY MOUTH EVERY DAY, # 90 tab(s), Refills(s) 0, Pharmacy: [id number], 180.3, cm, 05/17/23 9:51:00 EST, Height/Length Dosing, 105.1, kg, 05/17/23 9:51:00 EST, Weight Dosing Start Date: 05/31/23 Status: Ordered Start: 04-15-2018 take 1 tablet by eloy once daily cetirizine 10 mg Tab 10 mg = 1 tab(s), Oral, Daily, # 90 tab(s), Refills(s) 0, Pharmacy: [facility]/pharmacy #[id number], 180.3, cm, 11/15/22 16:44:00 EDT, Height/Length Dosing, 106.5, kg, 11/15/22 16:44:00 EDT, Weight Dosing Start Date: 11/15/22 Status: Ordered yrTE Active cholecalciferol 0.25 mg oral capsule (20 sources) Vitamin D Start: 05-18-2022 take 1 capsule by mouth every week Cholecalciferol (Vitamin D3) 250 MCG (39159 UT) capsule Indications: Vitamin D deficiency TAKE 1 CAPSULE BY MOUTH ONE TIME PER WEEK 4 capsule 14 05/18/2022 Active Start: 05-11-2021 take 1 capsule by mo uth every week Cholecalciferol ([facility] Vitamin D3) 250 MCG (78729 UT) capsule capsule Indications: Vitamin D deficiency TAKE 1 CAPSULE BY MOUTH ONE TIME PER WEEK 4 capsule 14 05/11/2021 Active Start: 04-28-2020 take 1 capsule by mo uth every week Cholecalciferol ([facility] Vitamin D3) 250 MCG (67060 UT) capsule capsule Indications: Vitamin D deficiency TAKE 1 CAPSULE BY MOUTH ONE TIME PER WEEK 4 capsule 14 04/28/2020 Active Start: 04-21-2019 take 1 capsule by mo uth every week Cholecalciferol ([facility] VITAMIN D3) 250 MCG (45202 UT) Cap capsule Indications: Vitamin D deficiency TAKE 1 CAPSULE BY MOUTH ONCE A WEEK 4 capsule 14 04/21/2019 Active Start: 09-03-2018 End: 09-03-2018 take 2 capsules by mouth once Cholecalciferol (MAXIMUM D3) 09473 units Cap Indications: Vitamin D deficiency 2 po one day a week 10 capsule 11 09/03/2018 Active Start: 04-17-2018 End: 09-03-2018 take 1 capsule by mouth once Cholecalciferol (MAXIMUM D3) 12691 units Cap Indications: Vitamin D deficiency 1 [...] A DAY FOR 2 WEEKS 15 g 10/31/2021 Active Start: 03-11-2021 clobetasol 0.0 5 % Cream Indications: Rash APPLY TO AFFECTED AREAS TWICE A DAY FOR 2 WEEKS 15 g 03/11/2021 Active Start: 07-12-2020 clobetasol 0.0 5 % Cream Indications: Rash APPLY TO AFFECTED AREAS TWICE A DAY FOR 2 WEEKS 15 g 07/12/2020 Active Start: 10-09-2019 clobetasol 0.0 5 % Cream Indications: Rash Apply to affected areas bid for 2 weeks. 1 Tube 11 10/09/2019 Active Clobetasol 17 Pr opionate Active Clobetasol & Clobetasol Emul (1 source) Clobetasol & Clobetasol Emul Active cyclobenzaprine hydrochloride 10 mg oral tablet (3 sources) Muscle Relaxant Start: 023 take 1 tablet by mouth three times daily as needed for muscle spasms cyclobenzaprine 10 mg Tab 10 mg = 1 tab(s), Oral, TID, PRN for spasm, # 30 tab(s), Refills(s) 0 Start Date: 06/15/22 Status: Ordered Diclofenac (1 source) Nonsteroidal Anti-inflammatory Drug Diclofenac Active folic acid 1 mg oral tablet (20 sources) Start: take 1 tablet by mouth once daily [...] TABLET BY MOUTH EVERY DAY 30 tablet 10 02/25/2019 Active Start: 03-29-2018 take 1 tablet by eloy th once daily folic acid 1 MG Tab tablet Indications: Psoriatic arthritis , 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 , Psoriatic spondylitis , SAPHO syndrome , Psoriasis , Fatigue, unspecified type , 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 arthritis , [facility] 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) , [facility] current use of 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 , Methotrexate, watermelon inspector, current use , Long-term current use of [...] oral capsule (20 sources) Anti-epileptic Agent Start: 04-30-2023 take 1 capsule by mouth twice daily gabapentin 300 mg Cap See Instructions, TAKE 1 CAPSULE BY MOUTH TWICE A DAY, # 60 cap(s), Refills(s) 2, Pharmacy: [id number], 180.3, cm, 03/05/23 14:04:00 EST, Height/Length Dosing, 102, kg, 03/05/23 14:04:00 EST, Weight Dosing Start Date: 04/30/23 Status: Ordered Start: 11-15-2022 take 1 capsule by mo [facility] twice daily gabapentin 300 mg Cap 300 mg = 1 cap(s), Oral, BID, # 180 cap(s), Refills(s) 0, Pharmacy: [facility]/pharmacy #[id number], 180.3, cm, 11/15/22 16:44:00 EDT, Height/Length Dosing, 106.5, kg, 11/15/22 16:44:00 EDT, Weight Dosing Start Date: 11/15/22 Status: Ordered Start: 10-30-2022 take 1 capsule by [facility] twice daily gabapentin 300 mg Cap 300 mg = 1 cap(s), Oral, BID, # 60 cap(s), Refills(s) 0, [id number] 180.[facility], cm, 10/20/22 8:11:00 EDT, Height/Length Dosing, 109.1, kg, 10/20/22 8:11:00 EDT, Weight Dosing Start Date: 10/30/22 Status: Ordered Start: 03-18-2018 take 1 capsule by mo [facility] once daily in the morning gabapentin 300 MG Cap capsule Take 1 capsule by mouth daily every morning. 0 03/18/2018 Active Gabapentin Activ e halobetasol propionate 0.5 mg/ml topical cream (20 sources) Corticosteroid Start: 07-29-2019 halobetasol 0. 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, watermelon inspector, current use , Long-term current use of high risk medication other than anticoagulant , [facility] current use of 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 , [facility] 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) , [...] psoriasis , Anemia, unspecified type , Methotrexate, fci, current use , Long-term current use of high risk medication other than anticoagulant , [facility] current use of 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 , [facility] 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) , [...] Active 1 ml ixekizumab 80 mg/ml auto-injector (7 sources) Interleukin-17A Antagonist Start: 2021 Taltz Autoinjector 80 mg/mL subcutaneous solution mg, SubCutaneous, q4wk, Refills(s) 0 Start Date: 06/15/22 Status: Ordered Talolimpia Active Meclizine (1 source) Antiemetic Meclizine [...] spondylitis , 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 arthritis , [facility] 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) , 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 , Long-term current use of high risk medication other than anticoagulant , Methotrexate, fci, current use , Noncompliance , Patient non [...] , Psoriasis , Anemia, unspecified type , 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) , [facility] current use of 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 , Methotrexate, watermelon inspector, current use , Long-term current use of [...] psoriasis , Anemia, unspecified type , Methotrexate, watermelon inspector, current use , Long-term current use of high risk medication other than anticoagulant , [facility] current use of 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 , [facility] 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) , [...] spondylitis , 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 arthritis , [facility] 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) , [facility] current use of 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 , Long-term current use of high risk medication other than anticoagulant , Methotrexate, fci, current use , Noncompliance , Patient non [...] , Psoriasis , Anemia, unspecified type , 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) , 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 , Methotrexate, fci, current use , Long-term current use of [...] type , 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 arthritis , 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) , 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 , Methotrexate, watermelon inspector, current use , Long-term current use of [...] 05/03/2018 Discontinued sildenafil 25 mg oral tablet (3 sources) Phosphodiesterase 5 Inhibitor Start: 06-15-2022 take [...] psoriasis , Anemia, unspecified type , Methotrexate, fci, current use , Long-term current use of high risk medication other than anticoagulant , [facility] current use of 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 , [facility] 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) , [...] psoriasis , Anemia, unspecified type , Methotrexate, watermelon inspector, current use , Long-term current use of high risk medication other than anticoagulant , [facility] current use of 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 , [facility] 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) , [...] psoriasis , Anemia, unspecified type , Methotrexate, fci, current use , Long-term current use of high risk medication other than anticoagulant , [facility] current use of 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 , [facility] 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) , [...] psoriasis , Anemia, unspecified type , Methotrexate, fci, current use , Long-term current use of high risk medication other than anticoagulant , [facility] current use of 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 , [facility] 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) , [...] psoriasis , Anemia, unspecified type , Methotrexate, watermelon inspector, current use , Long-term current use of high risk medication other than anticoagulant , [facility] current use of 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 , [facility] 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) , [...] psoriasis , Anemia, unspecified type , Methotrexate, watermelon inspector, current use , Long-term current use of high risk medication other than anticoagulant , 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 , 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) , [...] psoriasis , Anemia, unspecified type , Methotrexate, watermelon inspector, current use , Long-term current use of high risk medication other than anticoagulant , 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 , [facility] 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) , [...] psoriasis , Anemia, unspecified type , Methotrexate, fci, current use , Long-term current use of high risk medication other than anticoagulant , 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 , 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) , [...] psoriasis , Anemia, unspecified type , Methotrexate, fci, current use , Long-term current use of high risk medication other than anticoagulant , 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 , 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) , [...] psoriasis , Anemia, unspecified type , Methotrexate, fci, current use , Long-term current use of high risk medication other than anticoagulant , [facility] current use of 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 , [facility] 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) , [...] psoriasis , Anemia, unspecified type , Methotrexate, watermelon inspector, current use , Long-term current use of high risk medication other than anticoagulant , [facility] current use of 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 , 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) , [...] psoriasis , Anemia, unspecified type , Methotrexate, watermelon inspector, current use , Long-term current use of high risk medication other than anticoagulant , 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 , [facility] 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) , [...] / HYDROcodone bitartrate 5 mg oral tablet (11 sources) Opioid Agonist Start: 02-15-2023 acetaminophen-hydr ocodone 325 mg-5 mg oral tablet Refill(s) 0, 60 EA, 0 Refill(s), TAKE 1 TABLET BY MOUTH TWICE A DAY NEEDED FOR PAIN Start Date: 02/15/23 Status: Ordered End: 05-03-2018 take 1 tablet by mouth three times daily as needed hydroCODone-acetaminophen 5-325 MG Tab tablet hydrocodone 5 mg-acetaminophen [...] Start: 07-02-2022 fluticasone Na corina 0.05 mg/inh [place] See Instructions, 16 mL, Refill(s) 0, SPRAY 2 SPRAYS INTO EACH NOSTRIL DAILY, [id number] Start Date: 07/02/22 Status: Ordered Start: 04-15-2018 [...] bromide 0.021 mg/actuat metered dose nasal spray (4 sources) Anticholinergic Start: 07-05-2022 Ipratropium Brom gabriele Active memantine hydrochloride 5 mg oral tablet (1 source) T-bkwqcq-D-aspartate Receptor Antagonist Start: 04-06-2018 End: 05-03-2018 memantine [...] stones , 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 arthritis , [facility] 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) , Long-term current use of high risk medication other than anticoagulant , Methotrexate, fci, current use , Abnormal renal function test [...] , Psoriasis , Anemia, unspecified type , [facility] 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) , 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 , Methotrexate, watermelon inspector, current use , Long-term current use of [...] , Psoriasis , Anemia, unspecified type , 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) , 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 , Methotrexate, fci, current use , Long-term current use of [...] , Psoriasis , Anemia, unspecified type , [facility] 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) , [facility] current use of 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 , Methotrexate, watermelon inspector, current use , Long-term current use of [...] , Psoriasis , Anemia, unspecified type , [facility] 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) , 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 , Methotrexate, watermelon inspector, current use , Long-term current use of [...] type , 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 arthritis , 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) , [facility] current use of 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 , Methotrexate, fci, current use , Long-term current use of [...] weeks thereafter. Start on 05/02/18 1 Syringe 11 03/29/2018 Active Problems Active Problems Problem Classification Problem Date Documented Date Episodic/Chronic Anxiety disorders (3 sources) Anxiety 06-15-2022 Chronic Calculus of urinary tract (12 sources) History of calculus of kidney; Translations: [Personal history of urinary calculi] Onset: 2 Episodic Chronic kidney disease (1 source) Chronic kidney disease stage 3A 11-20-2022 Chronic Coronary atherosclerosis and other heart disease (3 sources) Coronary atherosclerosis 06-15-2022 Chronic Deficiency and other anemia (20 sources) Anemia; Translations: [Anemia, unspecified] Onset: 9 Resolved: 2 05-03-2018 Episodic Essential hypertension (20 sources) Hypertensive disorder; Translations: [Essential hypertension] Onset: 7 03-29-2018 Chronic Infective arthritis and osteomyelitis (except that caused by tuberculosis or sexually transmitted disease) (3 sources) Osteomyelitis, unspecified; Translations: [OSTEOMYELITIS UNSPECIFIED] Onset: 8 Chronic Inflammatory conditions of male genital organs (2 sources) Balanitis; 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] Chronic Malaise and fatigue (20 sources) Fatigue; Translations: [Other fatigue] Onset: 8 03-29-2018 Episodic Nutritional deficiencies (20 sources) Vitamin D deficiency; Translations: [Vitamin D deficiency, unspecified] Onset: 9 05-03-2018 Chronic Osteoarthritis (20 sources) Degenerative joint disease of hand; 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] Onset: 9 05-03-2018 Chronic Osteoarthritis (20 sources) Osteoarthritis of bilateral acromioclavicular joints; Translations: [Osteoarthritis of bilateral glenohumeral joints] Onset: 9 05-03-2018 Other aftercare (20 sources) 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 methotrexate user; Translations: [Other watermelon inspector (current) drug therapy] Onset: 8 03-29-2018 Episodic Other aftercare (8 sources) Drug therapy finding; Translations: [Other watermelon inspector (current) drug therapy] Onset: 8 Episodic Other aftercare (3 sources) Other watermelon inspector (current) drug therapy; Translations: [OTH [facility] CURRENT DRUG THERAPY] Onset: 8 Episodic Other [...] shoulders] Onset: 9 05-03-2018 Other hematologic conditions (2 sources) Macrocytosis 11-06-2022 Chronic Other inflammatory condition of [...] injuries and conditions due to external causes (2 sources) Contusion 11-15-2022 Episodic Other nervous system disorders [...] Chronic Other nutritional; endocrine; and metabolic disorders (3 sources) Obesity 06-15-2022 Chronic Other skin disorders (3 sources) Acne, unspecified; Translations: [ACNE UNSPECIFIED] Onset: 8 Episodic Other skin disorders (3 sources) Personal history of diseases of the skin and subcutaneous tissue; Translations: [PERS HX DZ SKIN AND SUBCUTANEOUS TISSUE] Onset: 8 Episodic Other upper respiratory disease (3 sources) Allergic rhinitis 06-15-2022 Chronic Residual codes; unclassified (3 sources) Sleep disorder 06-15-2022 Episodic Screening and history of mental health and substance abuse codes (1 source) Personal history of nicotine dependence; Translations: [PERSONAL HISTORY OF NICOTINE DEPEND] Onset: 3 Episodic Spondylosis; intervertebral disc disorders; other back problems (20 sources) Lumbosacral spondylosis without myelopathy; Translations: [Degeneration of cervical intervertebral disc] Onset: 8 03-29-2018 Chronic Spondylosis; intervertebral disc disorders; other back problems (20 sources) Thoracic back pain; Translations: [Neck pain] Onset: 8 03-29-2018 Episodic Syncope (1 source) Syncope 05-17-2023 Episodic Unclassified (20 sources) Drug therapy finding; Translations: [Long-term current use of high risk medication other than anticoagulant] Onset: 8 03-29-2018 Unclassified (20 sources) Patient encounter status; Translations: [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)] Onset: [...] PAIN, UNSPECIFIED] Onset: 3 Unclassified (1 source) 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; Translations: [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] Onset: 3 Unclassified (1 source) CONTACT W/AND (SUSP) EXPOS COVID-19; Translations: [CONTACT W/AND (SUSP) EXPOS COVID-19] Onset: 2 Unclassified (1 source) MCFP (current) use of antimetabolite agent; Translations: [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 (current) use of antimetabolite agent] Onset: 8 Viral infection (1 source) Disease caused by 2019-nCoV 03-05-2023 Past or Other Problems Problem Classification Problem Date Documented Date Episodic/Chronic Abdominal pain (4 sources) Unspecified abdominal pain; Translations: [UNSPECIFIED ABDOMINAL PAIN] Onset: 2 Episodic Chronic obstructive pulmonary disease and bronchiectasis (3 sources) Chronic obstructive pulmonary disease and bronchiectasis 06-15-2022 Deficiency and other anemia (5 sources) Macrocytic [...] unspecified; Translations: [FEVER UNSPECIFIED] Onset: 2 Episodic Other aftercare (5 sources) Long-term current use of systemic steroid; Translations: [MCFP (current) use of 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] Onset: 8 Resolved: 0 Episodic Other aftercare (7 sources) Patient encounter status; Translations: [MCFP (current) use of non-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-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)] Onset: 8 Resolved: 3 Episodic Other aftercare (4 sources) Long-term current use of immunosuppressive drug; Translations: [Other fci (current) drug therapy] Onset: 8 Resolved: 8 03-29-2018 Episodic Other aftercare (3 sources) MCFP (current) use of non-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-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); Translations: [FURNACE STOCK INSPECTOR USE NSAID] Onset: 8 Episodic Other aftercare (1 source) MCFP (current) use of 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; Translations: [FURNACE STOCK INSPECTOR USE OF SYSTEMIC STEROIDS] Onset: 2 Episodic [...] treatment and regimen] Onset: 9 09-03-2018 Episodic Unclassified (1 source) Psoriatic arthritis Unclassified (20 sources) Long-term current use of immunosuppressive drug; Translations: [MCFP current use of immunosuppressive drug] Onset: 8 Resolved: 8 03-29-2018 Unclassified (1 source) Psoriatic spondylitis Unclassified (20 sources) Long-term current use of systemic steroid; Translations: [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] Onset: 8 Resolved: 0 03-29-2018 Unclassified (1 source) 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 RAD - MRI Reporton RAD - MRI Report [id number]#1.00TIFF [facility] Insurance Correspondenceon 0 05-25-2023 Insurance Correspondence [id number]#1.00TIFF 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 Stage 3a chronic kidney disease (CKD) Sleep disorder Syncope BMI 32.0-32.9,adult Class 1 obesity due to excess calories in adult Former smoker Your Care Team Attending Physician - German Carrion MD Primary Care Physician - German Carrion MD This Is Your Medications List acetaminophen-hydr ocodone (acetaminophen-hyd rocodone 325 mg-5 mg oral tablet) amitriptyline (amitriptyline 25 mg Tab) amlodipine (amLODIPine 5 mg Tab) bisoprolol-hydroch lorothiazide (bisoprolol-hydroc hlorothiazide 10 mg-6.25 mg Tab) buPROPion (buPROPion 150 mg/24 hours XL Tab) cetirizine (cetirizine 10 mg Tab) cyclobenzaprine (cyclobenzaprine 10 mg Tab) fluticasone nasal (fluticasone Nasal 0.05 mg/inh [place]) gabapentin (gabapentin 300 mg Cap) ipratropium nasal (ipratropium Nasal 0.03% [place]) ixekizumab (Taltz Autoinjector 80 mg/mL subcutaneous solution) sildenafil (sildenafil 25 mg Tab) Procedures Performed Appendectomy, CABG (Coronary artery bypass grafting) planned, Inguinal hernia. Discharge Vitals Temperature (Temporal Artery) 36.7 ?C Heart Rate (Peripheral) 74 Respiratory Rate 16 Blood Pressure 124/78 Height 180.3 cm Height 71 in Weight 105.1 kg Weight 231.22 lb BMI 32.33 What to do next Scheduled Follow-Up Appointments July. 2023 1:15 PM EDT With: German Carrion MD Where: [facility] [place] [facility] Family Medicine Office/Clini c Noteon 05-17-2023 Family Medicine Office/Clinic Note HPI Staff Glenda is a 57 year old male presenting for 3 month follow up htn and mood Patient is here for follow up on hypertension. How often are you checking your blood pressure? Couple times a week What are yo8/16/23ur average readings? 128/80 Yearly BMP: _ Follow up for Mental Status: Medication adherence- Yes, takes medication as prescribed Medication refill needed: no Suicidal thoughts-Not at this time Most recent CONNOR: 9 Most recent PHQ: 2 flu: refused questions/concerns : needs refills of his amitriptylline and cetirizine History of Present Illness - See staff HPI. Pt has a concern that he has gone to sleep on the couch and he wakes up on the floor in another room. He does not remember anything. He states this is happening a lot. Review of Systems PHQ Score Initial Depression Screen Score: 2 SCORE Physical Exam Vitals & Measurements T: 36.7 ?C(Temporal Artery) HR: 74(Peripheral) RR: 16 BP: 124/78 SpO2: 99% HT: 71 in HT: 180.3 cm WT: 105.1 kg WT: 231.22 lb BMI: 32.33 General: alert, no acute distress ENMT: oral mucosa moist, Cardiovascular: regular rate and rhythm, normal peripheral perfusion Respiratory: Lungs CTA, respirations non labored Extremities: no deformity, no trauma Neurological: oriented x 4, LOC appropriate for age, CN II-XII intact, motor strength equal & normal bilaterally, speech normal Abdomen: Soft, Nontender, Non-distended, + BS Assessment/Plan 1. Essential hypertension (I10: Essential (primary) hypertension) - At goal today. - NO issues. - Will refill meds as needed. Ordered: Body Mass Index (BMI) documented 3008F Current smokeless tobacco user 1035F Depression Screening Negative 3352F Influenza immunization status assessed 1030F Most recent diastolic blood pressure <80 mm Hg 3078F Systolic BP <130 mm Hg (Most Recent) 3074F 2. Anxiety (F41.9: Anxiety disorder, unspecified) - Stable. - NO issues. Ordered: Body Mass Index (BMI) documented 3008F Current smokeless tobacco user 1035F Depression Screening Negative 3352F Influenza immunization status assessed 1030F Most recent diastolic blood pressure <80 mm Hg 3078F Systolic BP <130 mm Hg (Most Recent) 3074F 3. Atherosclerotic heart disease of [place] coronary artery with angina pectoris (I25.119: Atherosclerotic heart disease of [place] coronary artery with unspecified angina pectoris) - Stable. - Continue on ASA and statin Ordered: Body Mass Index (BMI) documented 3008F Current smokeless tobacco user 1035F Depression Screening Negative 3352F Influenza immunization status assessed 1030F Most recent diastolic blood pressure <80 mm Hg 3078F Systolic BP <130 mm Hg (Most Recent) 3074F 4. Psoriasis arthropathica (L40.50: Arthropathic psoriasis, unspecified) - Pain is controlled. Ordered: Body Mass Index (BMI) documented 3008F Current smokeless tobacco user 1035F Depression Screening Negative 3352F Influenza immunization status assessed 1030F Most recent diastolic blood pressure <80 mm Hg 3078F Systolic BP <130 mm Hg (Most Recent) 3074F 5. Stage 3a chronic kidney disease (CKD) (N18.31: Chronic kidney disease, stage 3a) - Will recheck as needed. Ordered: Body Mass Index (BMI) documented 3008F Current smokeless tobacco user 1035F Depression Screening Negative 3352F Influenza immunization status assessed 1030F Most recent diastolic blood pressure <80 mm Hg 3078F Systolic BP <130 mm Hg (Most Recent) 3074F 6. Sleep disorder (G47.9: Sleep disorder, unspecified) - Continue with Amitriptyline to help. Ordered: Body Mass Index (BMI) documented 3008F Current smokeless tobacco user 1035F Depression Screening Negative 3352F Influenza immunization status assessed 1030F Most recent diastolic blood pressure <80 mm Hg 3078F Systolic BP <130 mm Hg (Most Recent) 3074F 7. Syncope (R55: Syncope and collapse) - Will do Holter and Echo. - Pt already has a neurologist and asked him to be seen sara. 8. BMI 32.0-32.9,adult (Z68.32: Body mass index [BMI] 32.0-32.9, adult) - BMI education given Ordered: Body Mass Index (BMI) documented 3008F Current smokeless tobacco user 1035F Depression Screening Negative 3352F Influenza immunization status assessed 1030F Most recent diastolic blood pressure <80 mm Hg 3078F Systolic BP <130 mm Hg (Most Recent) 3074F 9. Class 1 obesity due to excess calories in adult (E66.09: Other obesity due to excess calories) - Diet and exercise adviced Ordered: Body Mass Index (BMI) documented 3008F Current smokeless tobacco user 1035F Depression Screening Negative 3352F Influenza immunization status assessed 1030F Most recent diastolic blood pressure <80 mm Hg 3078F Systolic BP <130 mm Hg (Most Recent) 3074F 10. Former smoker (Z87.891: Personal history of nicotine dependence) - Please continue to not smoke. Ordered: Body Mass Index (BMI) documented 3008F Current smokeless tobacco user 1035F Aide (more content not included)... Normal [facility] Comment on above: Result Comment: Elec tronically Signed By: Murali MASON, German Chiu\.br\Date and Time Signed: 05/17/23 10:13 EST Patient Educationon 05-17-19 Patient Education Nutrition BMI for Adults What is BMI? [...] numbers. This can be done either in [place] ([place] or metric measurements. Note that charts and online BMI calculators are available to help you find your BMI quickly and easily without having to do these calculations yourself. To calculate your BMI in [place] ([place] measurements: 1. Measure your weight in [...] for Disease Control and Prevention: www.cdc.gov ? [place] Heart Association: www.heart.org ? National Heart, Lung, [...] problems. ? BMI can be measured using [place] measurements or metric measurements. ? BMI charts are used to identify whether you are underweight, normal weight, overweight, or obese. This information is not intended to replace advice given to you by your health care provider. Make sure you discuss any questions you have with your health care provider. Document Revised: 12/10/2019 Document Reviewed: 10/17/2019 [employer] Patient Education ? 2022 [employer] Normal [facility] EMG Electromyographyon 05-15 EMG Electromyography [id number]#1.00TIFF Normal [facility] Consultation Noteon 03-21-20 Consultation Note [id number]#1.00TIFF Normal [facility] RAD - MISCon 03-21-2023 RAD - MISC [id number]#1.00TIFF [facility] Ambulatory Visit Summaryon 1 05-13-2022 Ambulatory Visit Summary GLENDA BUCLKEY :1965 Visit Date:03/12/2023 Ambulatory Visit Instructions Your Diagnosis COVID-19 Your Care Team Attending Physician - German Carrion MD Primary Care Physician - German Carrion MD. This Is Your Medications List acetaminophen-hydr ocodone (acetaminophen-hyd rocodone 325 mg-5 mg oral tablet) amitriptyline (amitriptyline 25 mg Tab) amlodipine (amLODIPine 5 mg Tab) benzonatate (benzonatate 200 mg oral capsule) bisoprolol-hydroch lorothiazide (bisoprolol-hydroc hlorothiazide 10 mg-6.25 mg Tab) buPROPion (buPROPion 150 mg/24 hours XL Tab) cetirizine (cetirizine 10 mg Tab) cyclobenzaprine (cyclobenzaprine 10 mg Tab) fluticasone nasal (fluticasone Nasal 0.05 mg/inh [place]) gabapentin (gabapentin 300 mg Cap) ipratropium nasal (ipratropium Nasal 0.03% [place]) ixekizumab (Taltz Autoinjector 80 mg/mL subcutaneous solution) sildenafil (sildenafil 25 mg Tab) Procedures Performed Appendectomy, CABG (Coronary artery bypass grafting) planned, Inguinal hernia. What to do next Scheduled Follow-Up Appointments Sunday 9:00 AM EST With: BABATUNDE MASON, Yusuf Cortés Where: [facility] [address] [place] [address]- \.br\ Medications\.br\ What How Much When Why Instructions\.br\ Unchanged acetaminophen-hyd rocodone (acetaminophen-hy drocodone 325 mg-5 mg oral tablet) 60 EA, [...] Former smoker COVID-19 Duration: 7 Days\.br\ Unchanged bisoprolol-hydroc hlorothiazide (bisoprolol-hydro chlorothiazide 10 mg-6.25 mg Tab) 1 Tablets By [...] fluticasone nasal (fluticasone Nasal 0.05 mg/ inh [place]) See instructions SPRAY 2 SPRAYS INTO EACH NOSTRIL DAILY \.br\ Unchanged gabapentin (gabapentin 300 mg Cap) See instructions TAKE 1 CAPSULE BY MOUTH TWICE A DAY \.br\ Unchanged ipratropium nasal (ipratropium Nasal 0.03% [place]) See instructions USE 2 SPRAYS IN EACH [...] rhinitis\.br\ Anemia\.br\ Anxiety\.br\ Atherosclerotic heart disease of [place] coronary artery with angina pectoris\.br\ Contusion\.br\ COVID-19\.br\ Essential hypertension\.br\ Fatigue\.br\ Macrocytosis\.br\ Obesity due to excess calories\.br\ Psoriasis arthropathica\.br \ Sleep disorder\.br\ Spasm of back muscles\.br\ Stage 3a chronic kidney disease (CKD)\.br\ Vitamin D deficiency\.br\ Historical - Any problem that you are no longer receiving treatment for.\.br\ COPD (Chronic Obstructive Pulmonary Disease) Assessment Test scale\.br\ HTN - Hypertension\.br\ Nephrolithiasis\. br\ Psoriasis\.br\ Psoriatic arthritis\.br\ Patient Survey\.br\ You may receive a survey via text or e-mail asking about your office visit. Please share your experience with us by completing your survey. We appreciate your feedback and thank you for choosing us for your care.\.br\ \.br\ [facility] Nurse Consultation Noteon Nurse Consultation Note Physical Exam pt here today for re check COVID test. Today was positive here in office. Per Dr Carrion patient taken off work for 3-4 days. Assessment/Plan COVID-19 (U07.1: COVID-19) Medications acetaminophen-hydr ocodone 325 mg-5 mg oral tablet amitriptyline 25 mg Tab, 50 mg= 2 tab(s), Oral, Once a day (at bedtime), 5 refills amLODIPine 5 mg Tab, 5 mg= 1 tab(s), Oral, Daily, 3 refills benzonatate 200 mg oral capsule, 200 mg= 1 cap(s), Oral, TID bisoprolol-hydroch lorothiazide 10 mg-6.25 mg Tab, 1 tab(s), Oral, Daily, 1 refills buPROPion 150 mg/24 hours XL Tab, 150 mg= 1 tab(s), Oral, q24hr, 1 refills cetirizine 10 mg Tab, See Instructions cyclobenzaprine 10 mg Tab, 10 mg= 1 tab(s), Oral, TID, PRN fluticasone Nasal 0.05 mg/inh [place], See Instructions gabapentin 300 mg Cap, See Instructions ipratropium Nasal 0.03% [place], See Instructions sildenafil 25 mg Tab, 25 mg= 1 tab(s), Oral, Daily, PRN Taltz Autoinjector 80 mg/mL subcutaneous solution, SubCutaneous, q4wk Allergies morphine (Unknown) Immunizations Vaccine Date Status Comments influenza virus vaccine, inactivated - Not Given Patient Refuses SARS-CoV-2 (COVID-19) mRNA BNT-162b2 vax 09/07/2020 Recorded SARS-CoV-2 (COVID-19) mRNA BNT-162b2 vax 08/17/2020 Recorded diphtheria/pertuss is, acel/tetanus adult 11/15/2019 Recorded Lab Results Ambulatory Point of Care Results Rapid Covid POC: Positive (03/12/23 09:05:00) [facility] Provider Letteron 03-12-2023 Provider Letter March 12, 2023 [place] [address] : 1965 To Whom It May Concern, Please excuse above patient from work. Date of Illness: From: 03.12.2023 To: 03.16.2023 May Return to Work On: 03.19.2023 Comments: Post covid symptoms Sincerely, [place] [address] [facility] Consultation Noteon 03-08-20 Consultation Note [id number]#1.00TIFF [facility] Provider Letteron 03-06-2023 Provider Letter March 06, 2023 [place] [address] : 1965 To Whom It May Concern, Please excuse above patient from work. Date of Illness: From: 03.05.2023 To: 03.12.2023 May Return to Work On: 03.13.2023 Comments: Patient is off due to illness. Sincerely, German Carrion [place] [address] [facility] Family Medicine Office/Clini c Noteon 03-05-2023 [...] Remedies tried: nothing _ _ flu: UTD questions/concerns : History of Present Illness Please see staff [...] day(s), # 6 tab(s), Refills(s) 0, Pharmacy: [facility]/pharmacy #[id number], 180.3, cm, 03/05/23 14:04:00 EST, Height/Length Dosing, 102, kg, 03/05/23 14:04:00 EST, Weight Dosing benzonatate, 200 mg = 1 cap(s), Oral, TID, X 7 day(s), # 21 cap(s), Refills(s) 0, [id number], 180.3, cm, 03/05/23 14:04:00 EST, Height/Length Dosing, 102, kg, 03/05/23 14:04:00 EST, Weight Dosing methylPREDNISolone , = 1 packet(s), Oral, As Directed, as directed on package labeling, X 6 day(s), # 21 tab(s), Refills(s) 0, [id number], 180.3, cm, 03/05/23 14:04:00 EST, Height/Length Dosing, 102, kg, 03/05/23 14:04:00 EST, Weight Dosing Body Mass Index (BMI) documented 3008F Current tobacco non-user 1036F Depression Screening Negative 3352F Influenza immunization administered or previously received 4274F Influenza Type A&B POC 19683 Most recent diastolic blood pressure <80 mm Hg 3078F Rapid COVID POC 10305 Systolic BP <130 mm Hg (Most Recent) 3074F 2. BMI 31.0-31.9,adult (Z68.31: Body mass index [BMI] 31.0-31.9, adult) - BMI education uploaded to the portal Ordered: azithromycin, = 1 packet(s), Oral, As Directed, as directed on package labeling, X 5 day(s), # 6 tab(s), Refills(s) 0, [id number], 180.3, cm, 03/05/23 14:04:00 EST, Height/Length Dosing, 102, kg, 03/05/23 14:04:00 EST, Weight Dosing benzonatate, 200 mg = 1 cap(s), Oral, TID, X 7 day(s), # 21 cap(s), Refills(s) 0, [id number], 180.3, cm, 03/05/23 14:04:00 EST, Height/Length Dosing, 102, kg, 03/05/23 14:04:00 EST, Weight Dosing methylPREDNISolone , = 1 packet(s), Oral, As Directed, as directed on package labeling, X 6 day(s), # 21 tab(s), Refills(s) 0, [id number], 180.3, cm, 03/05/23 14:04:00 EST, Height/Length [...] day(s), # 6 tab(s), Refills(s) 0, [id number], 180.3, cm, 03/05/23 14:04:00 EST, Height/Length Dosing, 102, kg, 03/05/23 14:04:00 EST, Weight Dosing benzonatate, 200 mg = 1 cap(s), Oral, TID, X 7 day(s), # 21 cap(s), Refills(s) 0, [id number], 180.3, cm, 03/05/23 14:04:00 EST, Height/Length Dosing, 102, kg, 03/05/23 14:04:00 EST, Weight Dosing methylPREDNISolone , = 1 packet(s), Oral, As Directed, as directed on package labeling, X 6 day(s), # 21 tab(s), Refills(s) 0, [id number], 180.3, cm, 03/05/23 14:04:00 EST, Height/Length [...] dependence) Orde (more content not included)... Normal [facility] Comment on above: Result Comment: Elec tronically Signed By: Murali MASON, German Chiu\.br\Date and Time Signed: 03/05/23 14:22 EST Patient Educationon 03-05-20 Patient Education BMI for Adults What is [...] numbers. This can be done either in [place] ([place] or metric measurements. Note that charts and online BMI calculators are available to help you find your BMI quickly and easily without having to do these calculations yourself. To calculate your BMI in [place] ([place] measurements: 1. Measure your weight in [...] for Disease Control and Prevention: www.cdc.gov ? [place] [employer]: www.heart.org ? National Heart, Lung, [...] problems. ? BMI can be measured using [place] measurements or metric measurements. ? BMI charts are used to identify whether you are underweight, normal weight, overweight, or obese. This information is not intended to replace advice given to you by your health care provider. Make sure you discuss any questions you have with your health care provider. Document Revised: 12/10/2019 Document Reviewed: 10/17/2019 [employer] Patient Education ? 2022 [employer] Nutrition BMI for Adults What is BMI? [...] may be (more content not included)... Normal [facility] Ambulatory Visit Summaryon 1 04-17-2022 Ambulatory Visit Summary GLENDA BUCKLEY :1965 Visit Date:02/15/2023 Ambulatory Visit Instructions Your Diagnosis Anxiety Essential hypertension BMI 32.0-32.9,adult Class 1 obesity due to excess calories in adult, Obesity due to excess calories Nonsmoker Your Care Team Attending Physician - German Carrion MD. Primary Care Physician - German Carrion MD. This Is Your Medications List amitriptyline (amitriptyline 25 mg Tab) amlodipine (amLODIPine 5 mg Tab) bisoprolol-hydroch lorothiazide (bisoprolol-hydroc hlorothiazide 10 mg-6.25 mg Tab) buPROPion (buPROPion 150 mg/24 hours XL Tab) cetirizine (cetirizine 10 mg Tab) cyclobenzaprine (cyclobenzaprine 10 mg Tab) fluticasone nasal (fluticasone Nasal 0.05 mg/inh [place]) gabapentin (gabapentin 300 mg Cap) ipratropium nasal (ipratropium Nasal 0.03% [place]) ixekizumab (Taltz Autoinjector 80 mg/mL subcutaneous solution) [...] MASON, Yusuf Cortés Where: [facility] [id number] \.br\ Medications\.br\ What How Much When Instructions\.br\ Unchanged amitriptyline (amitriptyline 25 mg Tab) 2 Tablets By Mouth Once a day (at bedtime)\.br\ Unchanged amlodipine (amLODIPine 5 mg Tab) 1 Tablets By Mouth Every day\.br\ Unchanged bisoprolol-hydroc hlorothiazide (bisoprolol-hydro chlorothiazide 10 mg-6.25 mg Tab) 1 Tablets By [...] fluticasone nasal (fluticasone Nasal 0.05 mg/ inh [place]) See instructions SPRAY 2 SPRAYS INTO EACH NOSTRIL DAILY \.br\ Unchanged gabapentin (gabapentin 300 mg Cap) See instructions TAKE 1 CAPSULE BY MOUTH TWICE A DAY \.br\ Unchanged ipratropium nasal (ipratropium Nasal 0.03% [place]) See instructions USE 2 SPRAYS IN EACH [...] rhinitis\.br\ Anemia\.br\ Anxiety\.br\ Atherosclerotic heart disease of [place] coronary artery with angina pectoris\.br\ Contusion\.br\ Essential hypertension\.br\ Fatigue\.br\ Macrocytosis\.br\ Obesity due to excess calories\.br\ Psoriasis arthropathica\.br \ Sleep disorder\.br\ Spasm of back muscles\.br\ Stage 3a chronic kidney disease (CKD)\.br\ Vitamin D deficiency\.br\ Historical - Any problem that you are no longer receiving treatment for.\.br\ COPD (Chronic Obstructive Pulmonary Disease) Assessment Test scale\.br\ HTN - Hypertension\.br\ Nephrolithiasis\. br\ Psoriasis\.br\ Psoriatic arthritis\.br\ Patient Survey\.br\ You may receive a survey via text or e-mail asking about your office visit. Please share your experience with us by completing your survey. We appreciate your feedback and thank you for choosing us for your care.\.br\ \.br\ Derrick [facility] Family Medicine Office/Clini c Noteon 02-15-2023 Family [...] readings? 181/76_ Yearly BMP: 11/15/22_ flu: refused questions/concerns : needs refills of his cetirizine and gabapentin [...] DAY, # 90 tab(s), Refills(s) 0, Pharmacy: [facility]/pharmacy #[id number], 180.3, cm, 02/15/23 11:32:00 EST, Height/Length Dosing, 105.8, kg, 02/15/23 11:32:00 EST, Weight Dosing gabapentin, See Instructions, TAKE 1 CAPSULE BY MOUTH TWICE A DAY, # 180 cap(s), Refills(s) 0, Pharmacy: [facility]/pharmacy #[id number], 180.3, cm, 02/15/23 11:32:00 EST, Height/Length Dosing, 105.8, kg, 02/15/23 11:32:00 EST, Weight Dosing Follow-up No qualifying data available Problem List/Past Medical History Ongoing Allergic rhinitis Anemia Anxiety Atherosclerotic heart disease of [place] coronary artery with angina pectoris Contusion Essential hypertension Fatigue Macrocytosis Obesity due to excess calories Psoriasis arthropathica Sleep disorder Spasm of back muscles Stage 3a chronic kidney disease (CKD) Vitamin D deficiency Historical COPD (Chronic Obstructive Pulmonary Disease) Assessment Test scale HTN - Hypertension Nephrolithiasis Psoriasis Psoriatic arthritis Procedure/Surgical History Appendectomy, CABG (Coronary artery bypass grafting) planned, Inguinal hernia. Medications acetaminophen-hydr ocodone 325 mg-5 mg oral tablet amitriptyline 25 mg Tab, 50 mg= 2 tab(s), Oral, Once a day (at bedtime), 5 refills amLODIPine 5 mg Tab, 5 mg= 1 tab(s), Oral, Daily, 3 refills bisoprolol-hydroch lorothiazide 10 mg-6.25 mg Tab, 1 tab(s), Oral, Daily, 1 refills buPROPion 150 mg/24 hours XL Tab, 150 mg= 1 tab(s), Oral, q24hr, 1 refills cetirizine 10 mg Tab, See Instructions cyclobenzaprine 10 mg Tab, 10 mg= 1 (more content not included)... Normal [facility] Comment on above: Result Comment: Elec tronically Signed By: Murali MASON, German Manning.br\Date and Time Signed: 02/15/23 12:29 EST RAD - MISCon 01-24-2023 RAD - MISC [id number]#1.00TIFF Normal [facility] Lab Reportson 01-17-2023 Lab Reports [id number]#1.00TIFF Normal [facility] Lab Reportson 01-16-2023 Lab Reports [id number]#1.00TIFF Normal [facility] Lab Reports [id number]#1.00TIFF Normal [facility] Operative Reporton 3 Operative Report [id number]#1.00CD:127 Normal [facility] Operative Reporton 3 Operative Report [id number]#1.00CD:127 Normal [facility] CMPon 11-16-2022 Albumin [Mass/Vol] 4.4 g/dL Normal 3.3-5.0 [facility] Comment on above: Performed By: #### 1 [id number], 0924774 ####[address] [place] [address] Albumin/Globulin (S) [Mass conc ratio] 1.6 Normal 1.1-2.2 [facility] Comment on above: Performed By: #### 1 6093167, 5461808 ####[facility] [address] [place] [address] ALP [Catalytic activity/Vol] 51 Int._Unit/L Normal 21-98 [facility] Comment on above: Performed By: #### 1 5496103, 1314735 ####[address] [place] [address] ALT No additional P-5'-P [Catalytic activity/Vol] 26 Int._Unit/L Normal 6-46 [facility] Comment on above: Performed By: #### 1 1248710, 3863278 ####[facility] [address] [place] [address] Anion gap [Moles/Vol] 10 mmol/L Normal 6-16 [facility] Comment on above: Performed By: #### 1 3247659, 4068437 ####[facility] [address] [place] [address] AST [Catalytic activity/Vol] 22 Int._Unit/L Normal 5-43 [facility] Comment on above: Performed By: #### 1 9188386, 5100706 ####[facility] [address] [place] [address] Bilirubin [Mass/Vol] 0.7 mg/dL Normal 0.0-1.1 [facility] Comment on above: Performed By: #### 1 6030041, 8067962 ####[facility] [address] [place] [address] Calcium [Mass/Vol] 9.1 mg/dL Normal 8.9-11.1 [facility] Comment on above: Performed By: #### 1 8157957, 4435022 ####[facility] [address] [place] [address] Chloride [Moles/Vol] 111 mmol/L Normal 101-111 [facility] Comment on above: Performed By: #### 1 8778747, 3443655 ####[facility] [address] [place] [address] CO2 [Moles/Vol] 23 mmol/L Normal 21-31 [facility] Comment on above: Performed By: #### 1 0844870, 2538851 ####[facility] [address] [place] [address] Creatinine [Mass/Vol] 1.6 mg/dL High 0.5-1.3 [facility] Comment on above: Performed By: #### 1 4761573, 2393006 ####[facility] [address] [place] [address] Globulin (S) [Mass/Vol] 2.7 g/dL Normal 1.4-4.0 [facility] Comment on above: Performed By: #### 1 4841173, 7681938 ####[facility] [address] [place] [address] Glucose [Mass/Vol] 90 mg/dL Normal 55-199 [facility] Comment on above: Result Comment: If t his glucose result represents a fasting glucose, interpretation should refer to the following reference range: 55-99 mg/dL Performed By: #### 1 0040015, 8629455 ####[facility] [address] [place] [address] Potassium [Moles/Vol] 4.2 mmol/L Normal 3.5-5.3 [facility] Comment on above: Performed By: #### 1 7066443, 1307347 ####[facility] [address] [place] [address] Protein [Mass/Vol] 7.1 g/dL Normal 6.0-7.8 [facility] Comment on above: Performed By: #### 1 0420054, 0562879 ####[facility] [address] [place] [address] Sodium [Moles/Vol] 140 mmol/L Normal 135-145 [facility] Comment on above: Performed By: #### 1 2676691, 0156487 ####[facility] [address] [place] [address] Urea nitrogen [Mass/Vol] 27 mg/dL High 5-21 [facility] Comment on above: Performed By: #### 1 2913695, 2810665 ####[facility] [address] [place] [address] Urea nitrogen/Creatinine [Mass ratio] 17 No Units Normal 10-20 [facility] Comment on above: Performed By: #### 1 0271221, 9595009 ####[facility] [address] [place] [address] Folateon 11-16-2022 Folate [Mass/Vol] ng/mL Normal >=6.7 [facility] Comment on above: Performed By: #### 2 922070, 4826526 ####[facility] [address] [place] [address] Physician Referralon 023 Physician Referral [id number] #1.00CD:127 Normal [facility] Vit B12on 11-16-2022 Cobalamin (Vitamin B12) [Mass/Vol] 590 pg/mL Normal 50-1500 [facility] Comment on above: Performed By: #### 2 270248, 4673472 ####[facility] [address] [place] [address] eGFRon 11-16-2022 GFR/1.73 sq M.predicted among non-blacks MDRD (S/P/Bld) [Vol rate/Area] 50 mL/min/1.73 m2 Low >=59 [facility] Comment on above: Order Comment: Order added by Discern Expert. Result Comment: Thinner Sprayer alvin kidney disease could be indicated at eGFR's of less than 60 mL/min/1.73m2. Kidney failure is indicated at less than 15 mL/min/1.73m2. Performed By: #### 1 5459761, 4566140 ####[facility] [address] [place] [address] Ambulatory Visit Summaryon 0 11-15-2022 Ambulatory Visit Summary GLENDA BUCKLEY :1965 Visit [...] or concerns amlodipine (amLODIPine 5 mg Tab) bisoprolol-hydroch lorothiazide (bisoprolol-hydroc hlorothiazide 10 mg-6.25 mg Tab) buPROPion (buPROPion 150 mg/24 hours XL Tab) cyclobenzaprine (cyclobenzaprine 10 mg Tab) fluticasone nasal (fluticasone Nasal 0.05 mg/inh [place]) ipratropium nasal (ipratropium Nasal 0.03% [place]) ixekizumab (Taltz Autoinjector 80 mg/mL subcutaneous solution) [...] Follow-Up Appointments 2022 11:20 AM EST With: Murali MASON, German Chiu Where: [facility] Invalid Interpretation Code Anxiety [facility] Office/Clini c Noteon 11-15-2022 Family Medicine Office/Clinic [...] time Most recent CONNOR:0 Most recent PHQ9:2 questions/concerns : took a fall 2 weeks ago in [...] tobacco non-user 1036F Depression Screening Negative 3352F [facility] [place] Ambulatory Referral Most recent diastolic blood pressure 80-89 mm Hg 3079F Systolic BP <130 mm Hg (Most Recent) 3074F 2. Kidney stones (N20.0: Calculus of kidney) - Will send to urology Ordered: [facility] [place] Ambulatory Referral 3. Sleep disorder (G47.9: Sleep disorder, unspecified) - Continue on meds as before. Ordered: [facility] Ambulatory Referral 4. Vitamin D deficiency (E55.9: Vitamin D deficiency, unspecified) - Resolved Ordered: [facility] Ambulatory Referral 5. Spasm of back muscles (M62.830: Muscle spasm of back) - Seeing pain - Gabapentin is working for him Ordered: [facility] Internal Ambulatory Referral 6. BMI 32.0-32.9,adult (Z68.32: [...] BID, # 180 cap(s), Refills(s) 0, Pharmacy: [facility]/pharmacy #[id number], 180.3, cm, 11/15/22 16:44:00 EDT, Height/Length Dosing, 106.5, kg, 11/15/22 16:44:00 EDT, Weight Dosing Follow-up No qualifying data available Problem List/Past Medical History Ongoing Allergic rhinitis Anemia Anxiety Atherosclerotic heart disease of [place] coronary artery with angina pectoris Contusion Essential hypertension Fatigue Kidney stones Macrocytosis Obesity due to excess calories Psoriasis arthropathica Sleep disorder Spasm of back muscles Vitamin D deficiency Historical COPD (Chronic Obstructive Pulmonary Disease) Assessment Test scale HTN - Hypertension Nephrolithiasis Psoriasis Psoriatic arthritis Procedure/Surgical History Appendectomy, CABG (Coronary artery bypass grafting) planned, Inguinal hernia. Medications amitriptyline 25 mg Tab, 50 mg= 2 tab(s), Oral, Once a day (at bedtime), 5 refills amLODIPine 5 mg Tab, 5 mg= 1 tab(s), Oral, Daily, 3 refills bisoprolol-hydroch lorothiazide 10 mg-6.25 mg Tab, 1 tab(s), Oral, Daily buPROPion 150 mg/24 hours XL Tab, 150 mg= 1 tab(s), Oral, q24hr cetirizine 10 mg Tab, 10 mg= 1 tab(s), Oral, Daily cyclobenzaprine 10 mg Tab, 10 mg= 1 tab(s), Oral, TID, PRN fluticasone Nasal 0.05 mg/inh [place], See Instructions gabapentin 300 mg Cap, 300 mg= 1 cap(s), Oral, BID ipratropium Nasal 0.03% [place], See Instructions sildenafil 25 mg Tab, 25 mg= 1 tab(s), Oral, Daily, PRN Taltz Autoinjector 80 mg/mL subcutaneous solution, SubCutaneous, q4wk Allergies morphine (Unknown) Social (more content not included)... Normal [facility] Comment on above: Result Comment: Elec tronically Signed By: Murali MASON, German Manning.br\Date and Time Signed: 11/15/22 17:15 EDT Auto Diffon 10-31-2022 Basophils/100 WBC (Bld) 0.6 % Normal 0.0-2.0 [facility] Comment on above: Order Comment: Order Added by Discern Expert. Performed By: #### 2 330379, 9163888, 5079390, 7747580, 5757838, [id number] ####[facility] [address] [place] [address] Basophils/Leukocytes Auto (Bld) [Pure # fraction] 0.0 E9/L Normal 0.0-0.2 [facility] Comment on above: Order Comment: Order Added by Discern Expert. Performed By: #### 2 136879, 1740071, 7371300, 4995650, 6079378, [id number] ####[address] [place] [address] Eosinophils/100 WBC (Bld) 1.0 % Normal 0.0-8.0 [facility] Comment on above: Order Comment: Order Added by Lv Expert. Performed By: #### 2 495855, 3251247, 4329148, 6678416, 8974669, 184508854 ####[facility] [address] [place] [address] Eosinophils/Leukocyte s Auto (Bld) [Pure # fraction] 0.1 E9/L Normal 0.0-0.5 [facility] Comment on above: Order Comment: Order Added by Discern Expert. Performed By: #### 2 855980, 2018080, 4065272, 6067585, 6627934, [id number] ####[address] [address] Lymphocytes/100 WBC (Bld) 27.6 % Normal 14.0-50.0 [facility] Comment on above: Order Comment: Order Added by Discern Expert. Performed By: #### 2 258469, 7875665, 7594821, 6448585, 1620820, 752527646 ####[facility] [address] [place] [address] Lymphocytes/Leukocyte s Auto (Bld) [Pure # fraction] 1.8 E9/L Normal 1.0-4.0 [facility] Comment on above: Order Comment: Order Added by Discern Expert. Performed By: #### 2 962060, 0601989, 4349536, 6309269, 9387006, 172751380 ####[facility] [address] [place] [address] Monocytes/100 WBC (Bld) 9.4 % Normal 4.0-14.0 [facility] Comment on above: Order Comment: Order Added by Discern Expert. Performed By: #### 2 547757, 8313238, 3530220, 3149047, 1535635, 475382493 ####[facility] [address] [place] [address] Monocytes/Leukocytes Auto (Bld) [Pure # fraction] 0.6 E9/L Normal 0.2-1.0 [facility] Comment on above: Order Comment: Order Added by Discern Expert. Performed By: #### 2 483496, 0861169, 7913419, 6681042, 7381798, 833196448 ####[address] [place] [address] Neutrophils/100 WBC (Bld) 61.4 % Normal 36.0-75.0 [facility] Comment on above: Order Comment: Order Added by Discern Expert. Performed By: #### 2 989940, 6359928, 6766631, 1132970, 8572763, 117324713 ####[address] [place] [address] Neutrophils/Leukocyte s Auto (Bld) [Pure # fraction] 4.0 E9/L Normal 2.0-7.5 [facility] Comment on above: Order Comment: Order Added by Discern Expert. Performed By: #### 2 363345, 8060458, 9534523, 1584554, 4258864, 854091557 ####[facility] [address] [place] [address] CBC w/ Auto Diffon 3 Erythrocyte distribution width (RBC) [Ratio] 15.3 % High 10.9-14.2 [facility] Comment on above: Performed By: #### 2 704965, 3427160, 9460933, 9587809, 6483784, 401067009 ####[address] [place] [address] Hematocrit (Bld) [Volume fraction] 40.4 % Normal 37.7-49.0 [facility] Comment on above: Performed By: #### 2 347074, 6401939, 6287248, 5342023, 9618965, 487109204 ####[facility] [address] [place] [address] Hemoglobin (Bld) [Mass/Vol] 13.5 g/dL Normal 13.5-17.5 [facility] Comment on above: Performed By: #### 2 932228, 1729101, 5513569, 6981376, 5329002, 347659091 ####[address] [address] MCH (RBC) [Entitic mass] 34.9 pg High 27.0-34.0 [facility] Comment on above: Performed By: #### 2 977285, 3699598, 2605629, 9926242, 0896836, 674108799 ####[address] [address] MCHC (RBC) [Mass/Vol] 33.3 g/dL Normal 31.4-36.0 [facility] Comment on above: Performed By: #### 2 602181, 7284636, 9507414, 4889313, 3109368, 908859384 ####[address] [address] MCV (RBC) [Entitic vol] 104.9 fL High 80.0-100.0 [facility] Comment on above: Performed By: #### 2 615717, 7536574, 7791947, 7898019, 1984697, 366996523 ####[address] [address] Platelet mean volume (Bld) [Entitic vol] 8.4 fL Normal 6.4-10.8 [facility] Comment on above: Performed By: #### 2 624833, 5897994, 6841507, 2636897, 9830693, 382257852 ####[facility] [address] [place] [address] Platelets (Bld) [#/Vol] 275.0 E9/L Normal 150.0-500.0 [facility] Comment on above: Performed By: #### 2 122708, 8466965, 0399426, 3774404, 8477029, 834327604 ####[facility] [address] [place] [address] RBC (Bld) [#/Vol] 3.9 E12/L Low 4.3-5.9 [facility] Comment on above: Performed By: #### 2 572002, 5583683, 8760043, 4825380, 3105482, 575780835 ####[facility] [address] [place] [address] WBC corrected for nucl RBC Auto (Bld) [#/Vol] 6.5 E9/L Normal 4.0-11.0 [facility] Comment on above: Performed By: #### 2 793878, 3735359, 7578900, 6727828, 8865817, 540254532 ####[facility] [address] [place] [address] CHEMISTRYOrdered By: SYSTEM SYSTEM on 10-31-2022 25-hydroxyvitamin [...] CRPon 10-31-2022 CRP [Mass/Vol] mg/L Normal <=1.9 [facility] Comment on above: Performed By: #### 2 694534, 9620276, 9084226, 5179547, 8151133, 773405641 ####[facility] [address] [place] [address] Consultation Noteon 11-01-19 Consultation Note [id number] DFEB#1.00CD:127 Normal [facility] HEMATOLOGYOrdered By: SYSTEM SYSTEM on 10-31-2022 Basophils/100 WBC (Bld) 0.6 % Normal 0.0 - 2.0 % [facility]eAuto[facility] Basophils/Leukocytes Auto (Bld) [Pure # fraction] 0.0 E9/L Normal 0.0 - 0.2 E9/L [facility] Eosinophils/100 WBC (Bld) 1.0 % Normal 0.0 - 8.0 % [facility]eAuto[facility] Eosinophils/Leukocyte s Auto (Bld) [Pure # fraction] 0.1 E9/L Normal 0.0 - 0.5 E9/L [facility] Lymphocytes/100 WBC (Bld) 27.6 % Normal 14.0 - 50.0 % [facility] Lymphocytes/Leukocyte s Auto (Bld) [Pure # fraction] 1.8 E9/L Normal 1.0 - 4.0 E9/L [facility] Monocytes/100 WBC (Bld) 9.4 % Normal 4.0 - 14.0 % [facility] Monocytes/Leukocytes Auto (Bld) [Pure # fraction] 0.6 E9/L Normal 0.2 - 1.0 E9/L [facility] Neutrophils/100 WBC (Bld) 61.4 % Normal 36.0 - 75.0 % [facility] Neutrophils/Leukocyte s Auto (Bld) [Pure # fraction] 4.0 E9/L Normal 2.0 - 7.5 E9/L [facility] HEMATOLOGYOrdered By: Maria Victoria Alexander on 10-31-2022 Erythrocyte distribution width (RBC) [Ratio] 15.3 % High 10.9 - 14.2 % [facility] Hematocrit (Bld) [Volume fraction] 40.4 % Normal 37.7 - 49.0 % [facility] Hemoglobin (Bld) [Mass/Vol] 13.5 g/dL Normal 13.5 - 17.5 gm/dL [facility] MCH (RBC) [Entitic mass] 34.9 pg High 27.0 - 34.0 pg [facility] MCHC (RBC) [Mass/Vol] 33.3 g/dL Normal 31.4 - 36.0 gm /dL [facility] MCV (RBC) [Entitic vol] 104.9 fL High 80.0 - 100.0 fL [facility] Platelet mean volume (Bld) [Entitic vol] 8.4 fL Normal 6.4 - 10.8 fL [facility] Platelets (Bld) [#/Vol] 275.0 E9/L Normal 150.0 - 500.0 E9/L [facility] RBC (Bld) [#/Vol] 3.9 E12/L Low 4.3 - 5.9 E12/L [facility] WBC corrected for nucl RBC Auto (Bld) [#/Vol] 6.5 E9/L Normal 4.0 - 11.0 E9/L [facility] HemeAutoSS Lipid Panelon 10-31-2022 Cholesterol [Mass/Vol] 144 mg/dL Normal 120-200 [facility] Comment on above: Performed By: #### 2 001181, 5484685, 6639601, 9151810, 0280303, 343559913 ####[facility] [place] [address] Cholesterol in HDL [Mass/Vol] 49 mg/dL Invalid Interpretation Code [facility] Comment on above: Result Comment: HDL > or equal to 60 mg/dL: Low cardiovascular risk HDL < 40 mg/dL : High cardiovascular risk Performed By: #### 2 879159, 5516376, 2878744, 2586328, 4594402, 999809816 ####[facility] [address] [place] [address] Cholesterol in LDL [Mass/Vol] 73 mg/dL Normal <=129 [facility] Comment on above: Performed By: #### 2 723594, 6722291, 7299764, 9900186, 1010343, 111944937 ####[facility] [address] [place] [address] Cholesterol in VLDL [Mass/Vol] 21 mg/dL Normal 7-40 [facility] Comment on above: Performed By: #### 2 197526, 3054087, 0958485, 7398762, 3449659, 963086575 ####[facility] [address] [place] [address] Triglyceride [Mass/Vol] 107 mg/dL Normal <=149 [facility] Comment on above: Performed By: #### 2 352176, 0092704, 4021310, 9191976, 4730564, 290667867 ####[facility] [address] [place] [address] TSHon 10-31-2022 TSH Qn 2.30 m[IU]/L Normal 0.34-5.60 [facility] Comment on above: Performed By: #### 2 082921, 4141058, 1127923, 0647386, 2544772, 739231618 ####[facility] [address] [place] [address] Vitamin D 25 Hydroxyon 10-31 25-hydroxyvitamin D3 [Mass/Vol] 42.5 ng/mL Normal 30.0-100.0 [facility] Comment on above: Result Comment: Vit piper [...] [place]: The National Academies Press. 2. Holick MF, Ofelia HOWARD, Alden BEARD, et al. Evaluation, treatment, and prevention of vitamin D deficiency: an Endocrine Society clinical practice guideline. JCEM. 2010; 96 (7):1911-30. Performed By: #### 2 977971, 5497444, 1157857, 0280831, 5878741, 761980502 ####[facility] [address] [place] [address] Physician Referralon 023 Physician Referral [id number]#1.00CD:127 Normal [facility] Ambulatory Visit Summaryon 0 10-20-2022 Ambulatory Visit Summary GLENDA BUCKLEY :1965 Visit Date:10/20/2022 Ambulatory Visit Instructions Your Diagnosis Kidney stones Essential hypertension Anxiety Vitamin D deficiency Atherosclerotic heart disease of [place] coronary artery with angina pectoris Anemia Spasm of back muscles Psoriasis arthropathica Non-smoker BMI 33.0-33.9,adult Your Care Team Attending Physician - German Carrion MD Primary Care Physician - German Carrion MD This Is Your Medications List buPROPion (Wellbutrin XL 150 mg/24 hours Tab-ER) Contact prescribing physician if questions or concerns amitriptyline (amitriptyline 25 mg Tab) amlodipine (amLODIPine 5 mg Tab) bisoprolol-hydroch lorothiazide (bisoprolol-hydroc hlorothiazide 10 mg-6.25 mg Tab) cetirizine (cetirizine 10 mg Tab) cyclobenzaprine (cyclobenzaprine 10 mg Tab) fluticasone nasal (fluticasone Nasal 0.05 mg/inh [place]) gabapentin (gabapentin 300 mg Cap) ipratropium nasal (ipratropium Nasal 0.03% [place]) ixekizumab (Taltz Autoinjector 80 mg/mL subcutaneous solution) sildenafil (sildenafil 25 mg Tab) Procedures Performed Appendectomy, CABG (Coronary artery bypass grafting) planned, Inguinal hernia. Discharge Vitals Heart Rate (Peripheral) 78 Blood Pressure 132/90 Height 180.3 cm Height 71 in Weight 109.1 kg Weight 240.02 lb BMI 33.56 What to do next Scheduled Follow-Up Appointments Sunday 4:40 PM EDT With: Murali MASON, German Chiu Where: [facility] Normal [facility] Patient Logson 10-20-2022 Patient Logs [id number]#1.00CD:127 Normal [facility] [facility] Physician Referralon 023 Physician Referral [id number]:127 Normal [facility] Operative Reporton 3 Operative Report [id number]#[id number]:127 Normal [facility] CBC AUTO DIFFon 07-29-2022 BASO # 0.0 103/ul Normal 0.0-0.1 [facility] Comment on above: Performed By: #### C BC #### [facility] [address] [place] [address] Dr. Roosevelt Verde Basophils/100 WBC (Bld) 0.4 % Normal 0.2-2.0 [facility] Comment on above: Performed By: #### C BC #### [facility] [address] [place] [address] Dr. Roosevelt Verde EO # 0.0 103/ul Normal 0.0-0.7 [facility] Comment on above: Performed By: #### C BC #### [facility] [address] [place] [address] Dr. Roosevelt Verde Eosinophils/100 WBC (Bld) 0.4 % Critically low 0.9-7.0 [facility] Comment on above: Performed By: #### C BC #### [facility] [address] [place] [address] Dr. Roosevelt Verde Erythrocyte distribution width (RBC) [Ratio] 13.3 % Normal 11.0-15.0 [facility] Comment on above: Performed By: #### C BC #### [facility] [address] [place] [address] Dr. Roosevelt Verde Hematocrit (Bld) [Volume fraction] 42.9 % Normal 42.0-54.0 [facility] Comment on above: Performed By: #### C BC #### [facility] [address] [place] [address] Dr. Roosevelt Verde Hemoglobin (Bld) [Mass/Vol] 13.9 g/dL Critically low 14.0-18.0 [facility] Comment on above: Performed By: #### C BC #### [facility] [address] [place] [address] Dr. Roosevelt Verde IG # 0.02 10e3/ul Normal 0.00-0.03 [facility] Comment on above: Performed By: #### C BC #### [facility] [address] [place] [address] Dr. Roosevelt Verde IG % 0.2 % Normal 0.0-0.5 [facility] Comment on above: Performed By: #### C BC #### [facility] [address] [place] [address] Dr. Roosevelt Verde LYMPH # 1.1 103/ul Critically low 1.2-3.8 [facility] Comment on above: Performed By: #### C BC #### [facility] [address] [place] [address] Dr. Roosevelt Verde Lymphocytes/100 WBC (Bld) 13.5 % Critically low 20.5-60.0 [facility] Comment on above: Performed By: #### C BC #### [facility] [address] [place] [address] Dr. Roosevelt Verde MANUAL DIFF REQ NO Normal [facility] Comment on above: Performed By: #### C BC #### [facility] [address] [place] [address] Dr. Roosevelt Verde MCH (RBC) [Entitic mass] 34.6 pg Critically high 25.9-34.0 [facility] Comment on above: Performed By: #### C BC #### [facility] [address] [place] [address] Dr. Roosevelt Verde MCHC (RBC) [Mass/Vol] 32.4 g/dL Normal 29.9-35.2 [facility] Comment on above: Performed By: #### C BC #### [facility] [address] [place] [address] Dr. Roosevelt Verde MCV (RBC) [Entitic vol] 106.7 fL Critically high 80.0-94.0 [facility] Comment on above: Performed By: #### C BC #### [facility] [address] [place] [address] Dr. Roosevelt Verde MONO # 0.6 103/ul Normal 0.3-0.8 [facility] Comment on above: Performed By: #### C BC #### [facility] [address] [place] [address] Dr. Roosevelt Verde Monocytes/100 WBC (Bld) 7.6 % Normal 1.7-12.0 [facility] Comment on above: Performed By: #### C BC #### [facility] [address] [place] [address] Dr. Roosevelt Verde NEUT # 6.3 103/ul Normal 1.4-6.5 [facility] Comment on above: Performed By: #### C BC #### [facility] [address] [place] [address] Dr. Roosevelt Verde Neutrophils/100 WBC (Bld) 77.9 % Critically high 43.0-75.0 [facility] Comment on above: Performed By: #### C BC #### [facility] [address] [place] [address] Dr. Roosevelt Verde Platelet mean volume (Bld) [Entitic vol] 9.4 fL Critically low 9.5-13.5 [facility] Comment on above: Performed By: #### C BC #### [facility] [address] [place] [address] Dr. Roosevelt Verde PLT 315 103/ul Normal 150-450 [facility] Comment on above: Performed By: #### C BC #### [facility] [address] [place] [address] Dr. Roosevelt Verde RBC 4.02 106/ul Critically low 4.70-6.10 [facility] Comment on above: Performed By: #### C BC #### [facility] [address] [place] [address] Dr. Roosevelt Verde WBC 8.1 103/ul Normal 4.0-11.0 [facility] Comment on above: Performed By: #### C BC #### [facility] [address] [place] [address] Dr. Roosevelt Verde CRPon 07-29-2022 CRP 4.4 mg/dL Critically high <=1.0 [facility] Comment on above: Performed By: #### C BC #### [facility] [address] [place] [address] Dr. Roosevelt Verde MYOGLOBINon 07-29-2022 FISH 33 ng/mL Normal 16-96 [facility] Comment on above: Performed By: #### C BC #### [facility] [address] [place] [address] Dr. Roosevelt Verde PROF 14(COMP METB)on 023 Albumin [Mass/Vol] 3.8 g/dL Normal 3.4-5.0 [facility] Comment on above: Performed By: #### C BC #### [facility] [address] [place] [address] Dr. Roosevelt Verde Albumin/Globulin [Mass ratio] 1.0 {ratio} Normal [facility] Comment on above: Performed By: #### C BC #### [facility] [address] [place] [address] Dr. Roosevelt Verde ALP [Catalytic activity/Vol] 83 U/L Normal 46-116 [facility] Comment on above: Performed By: #### C BC #### [facility] [address] [place] [address] Dr. Roosevelt Verde ALT [Catalytic activity/Vol] 36 U/L Normal 16-63 [facility] Comment on above: Performed By: #### C BC #### [facility] [address] [place] [address] Dr. Roosevelt Verde Anion gap [Moles/Vol] 11.9 mmol/L Normal Th [facility] Comment on above: Performed By: #### C BC #### [facility] [address] [address] [address] Roosevelt Verde AST [Catalytic activity/Vol] 13 U/L Critically low 15-37 [facility] Comment on above: Performed By: #### C BC #### [facility] [address] [address] [address] Roosevelt Verde Bilirubin [Mass/Vol] 0.6 mg/dL Normal 0.2-1.0 [facility] Comment on above: Performed By: #### C BC #### [facility] [address] [address] [address] Roosevelt Verde Calcium [Mass/Vol] 8.6 mg/dL Normal 8.5-10.1 [facility] Comment on above: Performed By: #### C BC #### [facility] [address] [address] [address] Roosevelt Verde Chloride [Moles/Vol] 106 mmol/L Normal 98-107 [facility] Comment on above: Performed By: #### C BC #### [facility] [address] [address] [address] Roosevelt Verde CO2 [Moles/Vol] 25.8 mmol/L Normal 21.0-32.0 [facility] Comment on above: Performed By: #### C BC #### [facility] [address] [address] [address] Roosevelt Verde Creatinine [Mass/Vol] 1.52 mg/dL Critically high 0.70-1.30 [facility] Comment on above: Performed By: #### C BC #### [facility] [address] [address] [address] Roosevelt Verde EGFR-AF EGYPTIAN 58 mL/min/1.73m2 Critically low >=60 [facility] Comment on above: Performed By: #### C BC #### [facility] [address] [address] [address] Roosevelt Verde EGFR-NON AF EGYPTIAN 48 mL/min/1.73m2 Critically low >=60 [facility] Comment on above: Performed By: #### C BC #### [facility] [address] [address] [address] Roosevelt Verde Globulin (S) [Mass/Vol] 3.7 g/dL Normal [facility] Comment on above: Performed By: #### C BC #### [facility] [address] [address] [address] Roosevelt Verde Glucose [Mass/Vol] 123 mg/dL Critically high 74-106 [facility] Comment on above: Performed By: #### C BC #### [facility] [address] [address] [address] Roosevelt Verde Potassium [Moles/Vol] 4.7 mmol/L Normal 3.5-5.1 [facility] Comment on above: Performed By: #### C BC #### [facility] [address] [address] [address] Roosevelt Verde Protein [Mass/Vol] 7.5 g/dL Normal 6.4-8.2 [facility] Comment on above: Performed By: #### C BC #### [facility] [address] [address] [address] Roosevelt Verde Sodium [Moles/Vol] 139 mmol/L Normal 136-145 [facility] Comment on above: Performed By: #### C BC #### [facility] [address] [address] [address] Roosevelt Verde Urea nitrogen [Mass/Vol] 22.0 mg/dL Critically high 7.0-18.0 [facility] Comment on above: Performed By: #### C BC #### [facility] [address] [address] [address] Roosevelt Verde Urea nitrogen/Creatinine [Mass ratio] 14.5 mg/mg Normal [facility] Comment on above: Performed By: #### C BC #### [facility] [address] [address] [address] [facility] Ver[facility] mm/hr Critically high <=20 [facility] Comment on above: Performed By: #### C BC #### [facility] [address] [place] [address] Dr. Roosevelt Verde Consultation Noteon 07-27-19 Consultation Note [id number]#[id number]:127 Normal [facility] Consultation Note [id number]:127 Normal [facility] Consultation Note [id number]#[id number]:127 Normal [facility] Lab Reportson 07-21-2022 Lab Reports [id number]#[id number]:127 Normal [facility] CBC AUTO DIFFon 07-20-2022 BASO # 0.0 103/ul Normal 0.0-0.1 [facility] Comment on above: Performed By: #### C BC #### [facility] [address] [place] [address] Dr. Roosevelt Verde Basophils/100 WBC (Bld) 0.5 % Normal 0.2-2.0 [facility] Comment on above: Performed By: #### C BC #### [facility] [address] [place] [address] Dr. Roosevelt Verde EO # 0.0 103/ul Normal 0.0-0.7 [facility] Comment on above: Performed By: #### C BC #### [facility] [address] [place] [address] Dr. Roosevelt Verde Eosinophils/100 WBC (Bld) 0.5 % Critically low 0.9-7.0 [facility] Comment on above: Performed By: #### C BC #### [facility] [address] [place] [address] Dr. Roosevelt Verde Erythrocyte distribution width (RBC) [Ratio] 13.1 % Normal 11.0-15.0 [facility] Comment on above: Performed By: #### C BC #### [facility] [address] [place] [address] Dr. Roosevelt Verde Hematocrit (Bld) [Volume fraction] 39.2 % Critically low 42.0-54.0 [facility] Comment on above: Performed By: #### C BC #### [facility] [address] [place] [address] Dr. Roosevelt Verde Hemoglobin (Bld) [Mass/Vol] 12.7 g/dL Critically low 14.0-18.0 [facility] Comment on above: Performed By: #### C BC #### [facility] [address] [place] [address] Dr. Roosevelt Verde IG # 0.03 10e3/ul Normal 0.00-0.03 [facility] Comment on above: Performed By: #### C BC #### [facility] [address] [place] [address] Dr. Roosevelt Verde IG % 0.4 % Normal 0.0-0.5 [facility] Comment on above: Performed By: #### C BC #### [facility] [address] [place] [address] Dr. Roosevelt Verde LYMPH # 1.6 103/ul Normal 1.2-3.8 [facility] Comment on above: Performed By: #### C BC #### [facility] [address] [place] [address] Dr. Roosevelt Verde Lymphocytes/100 WBC (Bld) 21.7 % Normal 20.5-60.0 [facility] Comment on above: Performed By: #### C BC #### [facility] [address] [place] [address] Dr. Roosevelt Verde MANUAL DIFF REQ NO Normal [facility] Comment on above: Performed By: #### C BC #### [facility] [address] [place] [address] Dr. Roosevelt Verde MCH (RBC) [Entitic mass] 34.0 pg Normal 25.9-34.0 [facility] Comment on above: Performed By: #### C BC #### [facility] [address] [place] [address] Dr. Roosevelt Verde MCHC (RBC) [Mass/Vol] 32.4 g/dL Normal 29.9-35.2 [facility] Comment on above: Performed By: #### C BC #### [facility] [address] [place] [address] Dr. Roosevelt Verde MCV (RBC) [Entitic vol] 104.8 fL Critically high 80.0-94.0 [facility] Comment on above: Performed By: #### C BC #### [facility] [address] [address] [address] Roosevelt Verde MONO # 0.6 103/ul Normal 0.3-0.8 [facility] Comment on above: Performed By: #### C BC #### [facility] [address] [place] [address] Dr. Roosevelt Verde Monocytes/100 WBC (Bld) 8.2 % Normal 1.7-12.0 [facility] Comment on above: Performed By: #### C BC #### [facility] [address] [place] [address] Dr. Roosevelt Verde NEUT # 5.1 103/ul Normal 1.4-6.5 [facility] Comment on above: Performed By: #### C BC #### [facility] [address] [place] [address] Dr. Roosevelt Verde Neutrophils/100 WBC (Bld) 68.7 % Normal 43.0-75.0 [facility] Comment on above: Performed By: #### C BC #### [facility] [address] [place] [address] Dr. Roosevelt Verde Platelet mean volume (Bld) [Entitic vol] 9.2 fL Critically low 9.5-13.5 [facility] Comment on above: Performed By: #### C BC #### [facility] [address] [place] [address] Dr. Roosevelt Verde PLT 286 103/ul Normal 150-450 [facility] Comment on above: Performed By: #### C BC #### [facility] [address] [place] [address] Dr. Roosevelt Verde RBC 3.74 106/ul Critically low 4.70-6.10 [facility] Comment on above: Performed By: #### C BC #### [facility] [address] [place] [address] Dr. Roosevelt Verde WBC 7.5 103/ul Normal 4.0-11.0 [facility] Comment on above: Performed By: #### C BC #### [facility] [address] [place] [address] Dr. Roosevelt Verde CREATININEon 07-20-2022 Creatinine [Mass/Vol] 1.53 mg/dL Critically high 0.70-1.30 [facility] Comment on above: Performed By: #### C QUE, CRP, ALT, AST #### [facility] [address] [place] [address] Dr. Roosevelt Verde EGFR-AF EGYPTIAN 57 mL/min/1.73m2 Critically low >=60 [facility] Comment on above: Performed By: #### C QUE, CRP, ALT, AST #### [facility] [address] [place] [address] Dr. Roosevelt Verde EGFR-NON AF EGYPTIAN 47 mL/min/1.73m2 Critically low >=60 [facility] Comment on above: Performed By: #### C QUE, CRP, ALT, AST #### [facility] [address] [place] [address] Dr. Roosevelt Verde CRPon 07-20-2022 CRP [Mass/Vol] mg/L Normal <=1.0 [facility] Comment on above: Performed By: #### C QUE, CRP, ALT, AST #### [facility] [address] [place] [address] Dr. Roosevelt Verde SED RATE WESTERGRENon 2022 SED RATE 9 mm/hr Normal <=20 [facility] Comment on above: Performed By: #### C BC #### [facility] [address] [place] [address] Dr. Roosevelt Verde SGOTon 07-20-2022 AST [Catalytic activity/Vol] 18 U/L Normal 15-37 [facility] Comment on above: Performed By: #### C QUE, CRP, ALT, AST #### [facility] [address] [place] [address] Dr. Roosevelt Verde SGPTon 07-20-2022 ALT [Catalytic activity/Vol] 44 U/L Normal 16-63 [facility] Comment on above: Performed By: #### C QUE, CRP, ALT, AST #### [facility] [address] [place] [address] Dr. Roosevelt Verde CBC AUTO DIFFon 05-23-2022 BASO # 0.1 103/ul Normal 0.0-0.1 [facility] Comment on above: Performed By: #### C BC #### [facility] [address] [place] [address] Dr. Roosevelt Verde Basophils/100 WBC (Bld) 0.5 % Normal 0.2-2.0 [facility] Comment on above: Performed By: #### C BC #### [facility] [address] [place] [address] Dr. Roosevelt Verde EO # 0.1 103/ul Normal 0.0-0.7 [facility] Comment on above: Performed By: #### C BC #### [facility] [address] [place] [address] Dr. Roosevelt Verde Eosinophils/100 WBC (Bld) 0.6 % Critically low 0.9-7.0 [facility] Comment on above: Performed By: #### C BC #### [facility] [address] [place] [address] Dr. Roosevelt Verde Erythrocyte distribution width (RBC) [Ratio] 14.0 % Normal 11.0-15.0 [facility] Comment on above: Performed By: #### C BC #### [facility] [address] [place] [address] Dr. Roosevelt Verde Hematocrit (Bld) [Volume fraction] 37.3 % Critically low 42.0-54.0 [facility] Comment on above: Performed By: #### C BC #### [facility] [address] [place] [address] Dr. Roosevelt Verde Hemoglobin (Bld) [Mass/Vol] 12.2 g/dL Critically low 14.0-18.0 [facility] Comment on above: Performed By: #### C BC #### [facility] [address] [place] [address] Dr. Roosevelt Verde IG # 0.03 10e3/ul Normal 0.00-0.03 [facility] Comment on above: Performed By: #### C BC #### [facility] [address] [place] [address] Dr. Roosevelt Verde IG % 0.3 % Normal 0.0-0.5 [facility] Comment on above: Performed By: #### C BC #### [facility] [address] [place] [address] Dr. Roosevelt Verde LYMPH # 1.6 103/ul Normal 1.2-3.8 [facility] Comment on above: Performed By: #### C BC #### [facility] [address] [place] [address] Dr. Roosevelt Verde Lymphocytes/100 WBC (Bld) 16.5 % Critically low 20.5-60.0 [facility] Comment on above: Performed By: #### C BC #### [facility] [address] [place] [address] Dr. Roosevelt Verde MANUAL DIFF REQ NO Normal [facility] Comment on above: Performed By: #### C BC #### [facility] [address] [place] [address] Dr. Roosevelt Verde MCH (RBC) [Entitic mass] 35.1 pg Critically high 25.9-34.0 [facility] Comment on above: Performed By: #### C BC #### [facility] [address] [place] [address] Dr. Roosevelt Verde MCHC (RBC) [Mass/Vol] 32.7 g/dL Normal 29.9-35.2 [facility] Comment on above: Performed By: #### C BC #### [facility] [address] [place] [address] Dr. Roosevelt Verde MCV (RBC) [Entitic vol] 107.2 fL Critically high 80.0-94.0 [facility] Comment on above: Result Comment: 1+ m acrocytosis Performed By: #### C BC #### [facility] [address] [place] [address] Dr. Roosevelt Verde MONO # 0.7 103/ul Normal 0.3-0.8 [facility] Comment on above: Performed By: #### C BC #### [facility] [address] [place] [address] Dr. Roosevelt Verde Monocytes/100 WBC (Bld) 7.6 % Normal 1.7-12.0 [facility] Comment on above: Performed By: #### C BC #### [facility] [address] [place] [address] Dr. Roosevelt Verde NEUT # 7.0 103/ul Critically high 1.4-6.5 [facility] Comment on above: Performed By: #### C BC #### [facility] [address] [place] [address] Dr. Roosevelt Verde Neutrophils/100 WBC (Bld) 74.5 % Normal 43.0-75.0 [facility] Comment on above: Performed By: #### C BC #### [facility] [address] [place] [address] Dr. Roosevelt Verde Platelet mean volume (Bld) [Entitic vol] 9.2 fL Critically low 9.5-13.5 [facility] Comment on above: Performed By: #### C BC #### [facility] [address] [place] [address] Dr. Roosevelt Verde PLT 296 103/ul Normal 150-450 [facility] Comment on above: Performed By: #### C BC #### [facility] [address] [place], [place] [id number] Dr. Roosevelt Verde RBC 3.48 106/ul Critically low 4.70-6.10 [facility] Comment on above: Performed By: #### C BC #### [facility] [address] [place] [address] Dr. Roosevelt Verde WBC 9.4 103/ul Normal 4.0-11.0 [facility] Comment on above: Performed By: #### C BC #### [facility] [address] [address] [address] Verde CREATININEon 05-23-2022 Creatinine [Mass/Vol] 1.33 mg/dL Critically high 0.70-1.30 [facility] Comment on above: Performed By: #### A ST, CREA, CRP, ALT ####[facility] [address] [address]Dr. Roosevelt Verde EGFR-AF EGYPTIAN >60 Normal >=60 [facility] Comment on above: Performed By: #### A ST, CREA, CRP, ALT ####[facility] [id number] [address]Dr. Roosevelt Verde EGFR-NON AF EGYPTIAN 56 mL/min/1.73m2 Critically low >=60 [facility] Comment on above: Performed By: #### A ST, CREA, CRP, ALT ####[facility] [id number] [address]Dr. Roosevelt Verde CRPon 05-23-2022 CRP 0.3 mg/dL Normal <=1.0 [facility] Comment on above: Performed By: #### A ST, CREA, CRP, ALT ####[facility] [address] [address]Dr. Roosevelt Verde [facility] 11 mm/hr Normal <=20 [facility] Comment on above: Performed By: #### S EDR ####[facility] [id number] [address]Dr. Roosevelt Ammon SGOTon 05-23-2022 AST [Catalytic activity/Vol] 20 U/L Normal 15-37 [facility] Comment on above: Performed By: #### A ST, CREA, CRP, ALT ####[facility] [address] [place] [address]Dr. Roosevelt Verde SGPTon 05-23-2022 ALT [Catalytic activity/Vol] 36 U/L Normal 16-63 [facility] Comment on above: Performed By: #### A ST, CREA, CRP, ALT ####[facility] [address] [place] [address]Dr. Roosevelt Verde QUANTIFERON TB GOLD PLUSon 1 05-24-2021 QuantiFERON Criteria Comment Normal [facility] Comment on above: Result Comment: [place] tiFERON-TB [...] test. Performed By: #### C BC #### [facility] [address] [place] [address] Dr. Roosevelt Verde QuantiFERON Incubation Incubation performed. Normal [facility] Comment on above: Performed By: #### C BC #### [facility] [address] [place] [address] Dr. Roosevelt Verde QuantiFERON Mitogen Value 2.17 IU/mL Normal [facility] Comment on above: Performed By: #### C BC #### [facility] [address] [address] [address] Roosevelt Verde QuantiFERON Nil Value 0.03 IU/mL Normal [facility] Comment on above: Performed By: #### C BC #### [facility] [address] [place] [address] Dr. Roosevelt Verde QuantiFERON TB1 Ag Value 0.04 IU/mL Normal [facility] Comment on above: Performed By: #### C BC #### [facility] [address] [place] [address] Dr. Roosevelt Verde QuantiFERON TB2 Ag Value 0.03 IU/mL Normal [facility] Comment on above: Performed By: #### C BC #### [facility] [address] [place] [address] Dr. Roosevelt Verde QuantiFERON-TB Gold Plus Negative Normal Negative [facility] Comment on above: Result Comment: No r esponse to M tuberculosis antigens detected. Infection with M tuberculosis is unlikely, but high risk individuals should be considered for additional testing (ATS/IDSA/CDC Clinical Practice Guidelines, 2017). The reference range is an Antigen minus Nil result of <0.35 IU/mL. Chemiluminescence immunoassay methodology Performed By: #### C BC #### [facility] [address] [address] [address] Roosevelt Verde HEP B SURFACE ANTIGEN SCREEN on 03-22-2022 HBsAg Screen Negative Normal Negative [facility] Comment on above: Performed By: #### H BSANS ####[facility] [address] [place] [id number]. Roosevelt Verde HEPATITIS C ANTIBODYon 03-22 Hep C Virus Ab <0.1 Normal 0.0-0.9 [facility] Comment on above: Result Comment: Nega tive: < 0.8 Indeterminate: 0.8 - 0.9 Positive: > 0.9 . HCV antibody alone does not differentiate between previous resolved infection and active infection. The CDC and current clinical guidelines recommend that a positive HCV antibody result be followed up with an HCV RNA test to support the diagnosis of acute HCV infection. [facility] offers Hepatitis C Virus (HCV) RNA, Diagnosis, DAVON (884600) and Hepatitis C Virus (HCV) Antibody with reflex to Quantitative Real-time PCR (685989). Performed By: #### H CV ####[facility] [address] [place] [id number]. Roosevelt Verde HIV 1 AND 2 WITH REFLEXon HIV Screen 4th Generation wRfx Non-Reactive Normal Non Reactive [facility] Comment on above: Result Comment: HIV Negative HIV-1/HIV-2 antibodies and HIV-1 p24 antigen were NOT detected. There is no laboratory evidence of HIV infection. Performed By: #### C BC #### [facility] [id number] Roosevelt Verde CBC AUTO DIFFon 03-21-2022 BASO # 0.0 103/ul Normal 0.0-0.1 [facility] Comment on above: Performed By: #### C BC #### [facility] [address] [address] [address] Roosevelt Verde Basophils/100 WBC (Bld) 0.3 % Normal 0.2-2.0 [facility] Comment on above: Performed By: #### C BC #### [facility] [address] [place] [address] Dr. Roosevelt Verde EO # 0.1 103/ul Normal 0.0-0.7 [facility] Comment on above: Performed By: #### C BC #### [facility] [address] [place] [address] Dr. Roosevelt Verde Eosinophils/100 WBC (Bld) 1.1 % Normal 0.9-7.0 [facility] Comment on above: Performed By: #### C BC #### [facility] [address] [place] [address] Dr. Roosevelt Verde Erythrocyte distribution width (RBC) [Ratio] 14.6 % Normal 11.0-15.0 [facility] Comment on above: Performed By: #### C BC #### [facility] [address] [place] [address] Dr. Roosevelt Verde Hematocrit (Bld) [Volume fraction] 34.7 % Critically low 42.0-54.0 [facility] Comment on above: Performed By: #### C BC #### [facility] [address] [place] [address] Dr. Roosevelt Verde Hemoglobin (Bld) [Mass/Vol] 11.4 g/dL Critically low 14.0-18.0 [facility] Comment on above: Performed By: #### C BC #### [facility] [address] [place] [address] Dr. Roosevelt Verde IG # 0.02 10e3/ul Normal 0.00-0.03 [facility] Comment on above: Performed By: #### C BC #### [facility] [address] [place] [address] Dr. Roosevelt Verde IG % 0.3 % Normal 0.0-0.5 [facility] Comment on above: Performed By: #### C BC #### [facility] [address] [place] [address] Dr. Roosevelt Verde LYMPH # 1.1 103/ul Critically low 1.2-3.8 [facility] Comment on above: Performed By: #### C BC #### [facility] [address] [place] [address] Dr. Roosevelt Verde Lymphocytes/100 WBC (Bld) 16.9 % Critically low 20.5-60.0 [facility] Comment on above: Performed By: #### C BC #### [facility] [address] [place] [address] Dr. Roosevelt Verde MANUAL DIFF REQ NO Normal [facility] Comment on above: Performed By: #### C BC #### [facility] [address] [place] [address] Dr. Roosevelt Verde MCH (RBC) [Entitic mass] 33.8 pg Normal 25.9-34.0 [facility] Comment on above: Performed By: #### C BC #### [facility] [address] [place] [address] Dr. Roosevelt Verde MCHC (RBC) [Mass/Vol] 32.9 g/dL Normal 29.9-35.2 [facility] Comment on above: Performed By: #### C BC #### [facility] [address] [place] [address] Dr. Roosevelt Verde MCV (RBC) [Entitic vol] 103.0 fL Critically high 80.0-94.0 [facility] Comment on above: Performed By: #### C BC #### [facility] [address] [place] [address] Dr. Roosevelt Verde MONO # 0.6 103/ul Normal 0.3-0.8 [facility] Comment on above: Performed By: #### C BC #### [facility] [address] [place] [address] Dr. Roosevelt Verde Monocytes/100 WBC (Bld) 9.8 % Normal 1.7-12.0 [facility] Comment on above: Performed By: #### C BC #### [facility] [address] [place] [address] Dr. Roosevelt Verde NEUT # 4.6 103/ul Normal 1.4-6.5 [facility] Comment on above: Performed By: #### C BC #### [facility] [address] [address] [address] Roosevelt Verde Neutrophils/100 WBC (Bld) 71.6 % Normal 43.0-75.0 [facility] Comment on above: Performed By: #### C BC #### [facility] [address] [address] [address] Roosevelt Verde Platelet mean volume (Bld) [Entitic vol] 9.6 fL Normal 9.5-13.5 [facility] Comment on above: Performed By: #### C BC #### [facility] [address] [place] [address] Dr. Roosevelt Verde PLT 327 103/ul Normal 150-450 [facility] Comment on above: Performed By: #### C BC #### [facility] [address] [place] [address] Dr. Roosevelt Verde RBC 3.37 106/ul Critically low 4.70-6.10 [facility] Comment on above: Performed By: #### C BC #### [facility] [address] [address] [address] Roosevelt Verde WBC 6.5 103/ul Normal 4.0-11.0 [facility] Comment on above: Performed By: #### C BC #### [facility] [address] [place] [address] Dr. Roosevelt Verde CREATININEon 03-21-2022 Creatinine [Mass/Vol] 2.19 mg/dL Critically high 0.70-1.30 [facility] Comment on above: Performed By: #### C BC #### [facility] [address] [address] [address] Roosevelt Verde EGFR-AF EGYPTIAN 38 mL/min/1.73m2 Critically low >=60 [facility] Comment on above: Performed By: #### C BC #### [facility] [address] [address] [address] Roosevelt Verde EGFR-NON AF EGYPTIAN 31 mL/min/1.73m2 Critically low >=60 [facility] Comment on above: Performed By: #### C BC #### [facility] [address] [place] [address] Dr. Roosevelt Verde CRPon 03-21-2022 CRP 0.4 mg/dL Normal <=1.0 [facility] Comment on above: Performed By: #### C BC #### [facility] [address] [place] [address] Dr. Roosevelt Verde SED RATE WESTERGRENon 2021 SED RATE 49 mm/hr Critically high <=20 [facility] Comment on above: Performed By: #### S EDR #### [facility] [address] [place] [address] Dr. Roosevelt PAGANOTon 03-21-2022 AST [Catalytic activity/Vol] 12 U/L Critically low 15-37 [facility] Comment on above: Performed By: #### C BC #### [facility] [address] [place] [address] Dr. [facility] ALT [Catalytic activity/Vol] 27 U/L Normal 16-63 [facility] Comment on above: Performed By: #### C BC #### [facility] [address] [place] [address] Dr. Roosevelt Verde Covid-19 PCR (CVDTB)on SARS-CoV-2 (COVID-19) RNA DAVON+probe Ql (Unsp spec) Not detected Normal NOT DETECTED [facility] Comment on above: Result Comment: This test is not yet approved or cleared by the [place] FDA. When there are no FDA-approved or cleared tests available, and other criteria are met, FDA can make tests available under an emergency access mechanism called an Emergency Use Authorization (EUA). The EUA for this test is supported by the [place] of Health and Human Service's (HHS's) declaration [...] #### C QUE, CRP, ALT, AST #### [facility] [address] [place] [address] Dr. Roosevelt Verde INFLUENZA A AND B AGon 03-08 INFLUBNEG SEE BELOW Normal [facility] Comment on above: Result Comment: Nega tive for Flu B protein antigen. Infection due to Flu B cannot be ruled out. Flu B antigen in the sample may be below the detection limit of the test. Performed By: #### C BC #### [facility] [address] [place] [address] Dr. Roosevelt Verde INFLUENZA A AG Positive Abnormal NEGATIVE SEE COMMENT [facility] Comment on above: Performed By: #### C BC #### [facility] [address] [place] [address] Dr. Roosevelt Verde INFLUENZA B AG Negative Normal NEGATIVE SEE COMMENT [facility] Comment on above: Performed By: #### C BC #### [facility] [address] [place] [address] Dr. Roosevelt Verde INFLUPOS SEE BELOW Normal [facility] Comment on above: Result Comment: NOTE : Live attenuated influenzae vaccine viruses can cause a positive result for a rapid influenza diagnostic test if administered up to 7 days prior to rapid testing. Performed By: #### C BC #### [facility] [address] [place] [address] Dr. Roosevelt Verde INTERNAL CONTROLS Within Normal Limits Normal Within Normal Limits [facility] Comment on above: Performed By: #### C BC #### [facility] [address] [place] [address] Dr. Roosevelt Melo 01-27-2022 Urea nitrogen [Mass/Vol] 30.0 mg/dL Critically high 7.0-18.0 [facility] Comment on above: Performed By: #### C QUE, BUN ####[facility] [address] [id number]. Roosevelt Verde CREATININEon 01-27-2022 Creatinine [Mass/Vol] 2.55 mg/dL Critically high 0.70-1.30 [facility] Comment on above: Performed By: #### C QUE, BUN ####[facility] [address] [place] [id number]. Roosevelt Verde EGFR-AF EGYPTIAN 32 mL/min/1.73m2 Critically low >=60 [facility] Comment on above: Performed By: #### C QUE, BUN ####[facility] [address] [address]Dr. Roosevelt Verde EGFR-NON AF EGYPTIAN 26 mL/min/1.73m2 Critically low >=60 [facility] Comment on above: Performed By: #### C QUE, BUN ####[facility] [address] [address]Dr. Roosevelt Verde UA RANDOM W/MICROSCOPICon BACTERIA NONE SEEN Normal NONE SEEN [facility] Comment on above: Performed By: #### U AMIC #### [facility] [address] [place] [address] Dr. Roosevelt Verde Bilirubin Ql (U) Negative Normal NEGATIVE [facility] Comment on above: Performed By: #### U AMIC #### [facility] [address] [place] [address] Dr. Roosevelt Verde CAST SEEN Abnormal NONE SEEN [facility] Comment on above: Performed By: #### U AMIC #### [facility] [address] [address] [address] Roosevelt Verde Clarity (U) CLEAR Normal CLEAR [facility] Comment on above: Performed By: #### U AMIC #### [facility] [address] [place] [address] Dr. Roosevelt Verde Color (U) DK. YELLOW Normal YELLOW [facility] Comment on above: Performed By: #### U AMIC #### [facility] [address] [address] [address] Roosevelt Verde Crystals LM Nom (Urine sed) NONE SEEN Normal NONE SEEN [facility] Comment on above: Performed By: #### U AMIC #### [facility] [address] [address] [address] Roosevelt Verde Epithelial cells LM Ql (Urine sed) NONE SEEN Normal NONE SEEN /RARE [facility] Comment on above: Performed By: #### U AMIC #### [facility] [address] [address] [address] Roosevelt Verde Glucose Ql (U) Negative Normal NEGATIVE [facility] Comment on above: Performed By: #### U AMIC #### [facility] [address] [address] [address] Roosevelt Verde Hemoglobin Ql (U) Negative Normal NEGATIVE [facility] Comment on above: Performed By: #### U AMIC #### [facility] [address] [place] [address] Dr. Roosevelt Verde Ketones Ql (U) TRACE Abnormal NEGATIVE [facility] Comment on above: Performed By: #### U AMIC #### [facility] [address] [address] [address] Roosevelt Verde LEUKOCYTES Negative Normal NEGATIVE [facility] Comment on above: Performed By: #### U AMIC #### [facility] [address] [address] [address] Roosevelt Verde MUCOUS NONE SEEN Normal NONE SEEN [facility] Comment on above: Performed By: #### U AMIC #### [facility] [address] [address] [address] Roosevelt Verde Nitrite Ql (U) Negative Normal NEGATIVE [facility] Comment on above: Performed By: #### U AMIC #### [facility] [address] [address] [address] Roosevelt Verde pH (U) 6.0 [pH] Normal 5-9 [facility] Comment on above: Performed By: #### U AMIC #### [facility] [address] [place] [address] Dr. Roosevelt Verde RBC NONE SEEN Abnormal 0-2 [facility] Comment on above: Performed By: #### U AMIC #### [facility] [address] [address] [address] Roosevelt Verde SPEC GRAVITY 1.025 Normal 1.005-<=1.025 [facility] Comment on above: Performed By: #### U AMIC #### [facility] [address] [address] [address] Roosevelt Verde UA PROTEIN Negative Normal NEGATIVE/ TRACE [facility] Comment on above: Performed By: #### U AMIC #### [facility] [address] [address] [address] Roosevelt Verde Urobilinogen Qn (U) 0.2 {Gogo'U}/dL Normal 0.2 - 1. 0 [facility] Comment on above: Performed By: #### U AMIC #### [facility] [address] [place] [address] Dr. Roosevelt Verde WBC 0-2 Abnormal NONE SEEN [facility] Comment on above: Performed By: #### U AMIC #### [facility] [address] [address] [address] Roosevelt Verde CBC AUTO DIFFon 01-12-2022 BASO # 0.0 103/ul Normal 0.0-0.1 [facility] Comment on above: Performed By: #### C BC ####[facility] [address] [address]Dr. Roosevelt Verde Basophils/100 WBC (Bld) 0.6 % Normal 0.2-2.0 [facility] Comment on above: Performed By: #### C BC ####[facility] [address] [place] [address]DrMichael Verde EO # 0.1 103/ul Normal 0.0-0.7 [facility] Comment on above: Performed By: #### C BC ####[facility] [address] [place] [address]DrMichael Verde Eosinophils/100 WBC (Bld) 1.5 % Normal 0.9-7.0 [facility] Comment on above: Performed By: #### C BC ####[facility] [address] [place] [address]Dr. Roosevelt Verde Erythrocyte distribution width (RBC) [Ratio] 13.5 % Normal 11.0-15.0 [facility] Comment on above: Performed By: #### C BC ####[facility] [address] [place], [place] [address]Dr. Roosevelt Verde Hematocrit (Bld) [Volume fraction] 36.6 % Critically low 42.0-54.0 [facility] Comment on above: Performed By: #### C BC ####[facility] [address] [place], [place] [address]Dr. Roosevelt Verde Hemoglobin (Bld) [Mass/Vol] 11.8 g/dL Critically low 14.0-18.0 [facility] Comment on above: Performed By: #### C BC ####[facility] [address] [place], [place] [address]Dr. Roosevelt Verde IG # 0.03 10e3/ul Normal 0.00-0.03 [facility] Comment on above: Performed By: #### C BC ####[facility] [address] [place], [place] [address]Dr. Roosevelt Verde IG % 0.5 % Normal 0.0-0.5 [facility] Comment on above: Performed By: #### C BC ####[facility] [address] [place], [place] [address]Dr. Roosevelt Verde LYMPH # 1.5 103/ul Normal 1.2-3.8 [facility] Comment on above: Performed By: #### C BC ####[facility] [address] [place], [place] [address]Dr. Roosevelt Verde Lymphocytes/100 WBC (Bld) 22.3 % Normal 20.5-60.0 [facility] Comment on above: Performed By: #### C BC ####[facility] [address] [place], [place] [address]Dr. Roosevelt Verde MANUAL DIFF REQ NO Normal [facility] Comment on above: Performed By: #### C BC ####[facility] [address] [place] [address]Dr. Roosevelt Ammon MCH (RBC) [Entitic mass] 34.2 pg Critically high 25.9-34.0 [facility] Comment on above: Performed By: #### C BC ####[facility] [address] [address]Dr. Roosevelt Ammon MCHC (RBC) [Mass/Vol] 32.2 g/dL Normal 29.9-35.2 [facility] Comment on above: Performed By: #### C BC ####[facility] [address] [place], [place] [address]Dr. Roosevelt Verde MCV (RBC) [Entitic vol] 106.1 fL Critically high 80.0-94.0 [facility] Comment on above: Result Comment: 2+ m acrocytosis Performed By: #### C BC ####[facility] [address] [place], [place] [address]Dr. Roosevelt Verde MONO # 0.6 103/ul Normal 0.3-0.8 [facility] Comment on above: Performed By: #### C BC ####[facility] [address] [place], [place] [address]Dr. Roosevelt Verde Monocytes/100 WBC (Bld) 8.7 % Normal 1.7-12.0 [facility] Comment on above: Performed By: #### C BC ####[facility] [address] [place], [place] [address]Dr. Roosevelt Verde NEUT # 4.4 103/ul Normal 1.4-6.5 [facility] Comment on above: Performed By: #### C BC ####[facility] [address] [place], [place] [address]Dr. Roosevelt Verde Neutrophils/100 WBC (Bld) 66.4 % Normal 43.0-75.0 [facility] Comment on above: Performed By: #### C BC ####[facility] [address] [place], [place] [address]Dr. Roosevelt Verde Platelet mean volume (Bld) [Entitic vol] 9.3 fL Critically low 9.5-13.5 [facility] Comment on above: Performed By: #### C BC ####[facility] [address] [place], [place] [address]Dd. Betzaidasánchez Verde PLT 325 103/ul Normal 150-450 [facility] Comment on above: Performed By: #### C BC ####[facility] [address] [place], [place] [address]Dv. Roosevelt Verde RBC 3.45 106/ul Critically low 4.70-6.10 [facility] Comment on above: Performed By: #### C BC ####[facility] [address] [place], [place] [address]Mi. Roosevelt Verde WBC 6.6 103/ul Normal 4.0-11.0 [facility] Comment on above: Performed By: #### C BC ####[facility] [address] [place] [address]DrMichael Verde CREATININEon 01-12-2022 Creatinine [Mass/Vol] 1.89 mg/dL Critically high 0.70-1.30 [facility] Comment on above: Performed By: #### C QUE, CRP, ALT, AST #### [facility] [address] [address] [address] Roosevelt Verde EGFR-AF EGYPTIAN 45 mL/min/1.73m2 Critically low >=60 [facility] Comment on above: Performed By: #### C QUE, CRP, ALT, AST #### [facility] [address] [address] [address] Roosevelt Verde EGFR-NON AF EGYPTIAN 37 mL/min/1.73m2 Critically low >=60 [facility] Comment on above: Performed By: #### C QUE, CRP, ALT, AST #### [facility] [address] [address] [address] Roosevelt Verde CRPon 01-12-2022 CRP 0.2 mg/dL Normal <=1.0 [facility] Comment on above: Performed By: #### C QUE, CRP, ALT, AST #### [facility] [address] [address] [address] Roosevelt Verde SED RATE WESTERGRENon 2021 SED RATE 24 mm/hr Critically high <=20 [facility] Comment on above: Performed By: #### S EDR ####[facility] [address] [place], [place] [address]RlDr. Roosevelt Verde SGOTon 01-12-2022 AST [Catalytic activity/Vol] 12 U/L Critically low 15-37 [facility] Comment on above: Performed By: #### C QUE, CRP, ALT, AST #### [facility] [address] [place], [place] [address] Dr. Roosevelt Verde SGPTon 01-12-2022 ALT [Catalytic activity/Vol] 26 U/L Normal 16-63 [facility] Comment on above: Performed By: #### C QUE, CRP, ALT, AST #### [facility] Laboratory [address] [place], [place] [address] Dr. Roosevelt Verde VIT D, 1,25 DIHYDROXon 01-11 VIT. D 1,25 37.8 Normal [facility] Comment on above: Result Comment: Pl ease note reference interval change Reference range: 24.8 to 81.5 Unit: pg/mL PERFORMED AT [facility] Performed By: #### L [id number] #### Testing performed at [facility] 25 0H VITAMIN D LEVELon 12-31 25 0H VITAMIN D LEVEL 40.4 NG/ML Normal [facility] Comment on above: Result Comment: DEFICIENT <20 NG/ML INSUFFICIENT 20-<30 NG/ML SUFFICIENT 30-100 NG/ML POTENTIAL TOXICITY >100 NG/ML Levar 01-10-2022 AST [Catalytic activity/Vol] 22 U/L Normal 17-59 [facility] Comment on above: Performed By: #### L VD125 #### Testing performed at [facility] CREATININE,SERUMon 2 Creatinine [Mass/Vol] 1.78 mg/dL High 0.7-1.2 [facility] Comment on above: Performed By: #### L VD125 #### Testing performed at [facility] EST. GFR, 51 ml/min/1.73sq.m [facility] Comment on above: Performed By: #### L VD125 #### Testing performed at [facility] EST. GFR,Non 42 ml/min/1.73sq.m [facility] Comment on above: Performed By: #### L VD125 #### Testing performed at [facility] GFR Information Average GFR for 50-59 years old = 93. [facility] Comment on above: Result Comment: Thinner Sprayer alvin Kidney disease, GFR = <60. Kidney failure, GFR = <15. The GFR estimate is not adjusted for extreme body surface area or acute process, nor has it been validated for women or ethnic groups other than and . Performed By: #### L VD125 #### Testing performed at [facility] VITAMIN D (25-HYDROXY,TOTAL) on 01-10-2022 25-hydroxyvitamin D [Mass/Vol] 40.4 NG/ML [facility] Comment on above: DEFICIENT <20 NG/ML INSUFFICIENT 20-<30 NG/ML SUFFICIENT 30-100 NG/ML POTENTIAL TOXICITY >100 NG/ML [facility] CBC AUTO DIFFon 11-17-2021 BASO # 0.0 103/ul Normal 0.0-0.1 [facility] Comment on above: Performed By: #### C BC #### [facility] Laboratory [address] [address] [address] Roosevelt Verde Basophils/100 WBC (Bld) 0.6 % Normal 0.2-2.0 [facility] Comment on above: Performed By: #### C BC #### [facility] Laboratory [address] [address] [address] Roosevelt Verde EO # 0.1 103/ul Normal 0.0-0.7 [facility] Comment on above: Performed By: #### C BC #### [facility] Laboratory [address] [address] [address] Roosevelt Verde Eosinophils/100 WBC (Bld) 1.4 % Normal 0.9-7.0 [facility] Comment on above: Performed By: #### C BC #### [facility] Laboratory [address] [place] [address] Dr. Roosevelt Verde Erythrocyte distribution width (RBC) [Ratio] 15.4 % Critically high 11.0-15.0 [facility] Comment on above: Performed By: #### C BC #### [facility] Laboratory [address] [place] [address] Dr. Roosevelt Verde Hematocrit (Bld) [Volume fraction] 31.7 % Critically low 42.0-54.0 [facility] Comment on above: Performed By: #### C BC #### [facility] Laboratory [address] [place] [address] Dr. Roosevelt Verde Hemoglobin (Bld) [Mass/Vol] 10.3 g/dL Critically low 14.0-18.0 [facility] Comment on above: Performed By: #### C BC #### [facility] Laboratory [address] [place] [address] Dr. Roosevelt Verde IG # 0.01 10e3/ul Normal 0.00-0.03 [facility] Comment on above: Performed By: #### C BC #### [facility] Laboratory [address] [place] [address] Dr. Roosevelt Verde IG % 0.2 % Normal 0.0-0.5 [facility] Comment on above: Performed By: #### C BC #### [facility] Laboratory [address] [place] [address] Dr. Roosevelt Verde LYMPH # 1.2 103/ul Normal 1.2-3.8 [facility] Comment on above: Performed By: #### C BC #### [facility] Laboratory [address] [place] [address] Dr. Roosevelt Verde Lymphocytes/100 WBC (Bld) 25.2 % Normal 20.5-60.0 [facility] Comment on above: Performed By: #### C BC #### [facility] Laboratory [address] [place] [address] Dr. Roosevelt Verde MANUAL DIFF REQ NO Normal [facility] Comment on above: Performed By: #### C BC #### [facility] Laboratory [address] [place] [address] Dr. Roosevelt Verde MCH (RBC) [Entitic mass] 35.0 pg Critically high 25.9-34.0 [facility] Comment on above: Performed By: #### C BC #### [facility] Laboratory [address] [place] [address] Dr. Roosevelt Verde MCHC (RBC) [Mass/Vol] 32.5 g/dL Normal 29.9-35.2 [facility] Comment on above: Performed By: #### C BC #### [facility] Laboratory [address] [place] [address] Dr. Roosevelt Verde MCV (RBC) [Entitic vol] 107.8 fL Critically high 80.0-94.0 [facility] Comment on above: Performed By: #### C BC #### [facility] Laboratory [address] [place] [address] Dr. Roosevelt Verde MONO # 0.5 103/ul Normal 0.3-0.8 [facility] Comment on above: Performed By: #### C BC #### [facility] Laboratory [address] [place] [address] Dr. Roosevelt Verde Monocytes/100 WBC (Bld) 11.0 % Normal 1.7-12.0 [facility] Comment on above: Performed By: #### C BC #### [facility] Laboratory [address] [place] [address] Dr. Roosevelt Verde NEUT # 3.0 103/ul Normal 1.4-6.5 [facility] Comment on above: Performed By: #### C BC #### [facility] Laboratory [address] [place] [address] Dr. Roosevelt Verde Neutrophils/100 WBC (Bld) 61.6 % Normal 43.0-75.0 [facility] Comment on above: Performed By: #### C BC #### [facility] Laboratory [address] [place] [address] Dr. Roosevelt Verde Platelet mean volume (Bld) [Entitic vol] 8.6 fL Critically low 9.5-13.5 [facility] Comment on above: Performed By: #### C BC #### [facility] Laboratory [address] [address] [address] Roosevelt Verde PLT 326 103/ul Normal 150-450 [facility] Comment on above: Performed By: #### C BC #### [facility] Laboratory [address] [address] [address] Roosevelt Verde RBC 2.94 106/ul Critically low 4.70-6.10 [facility] Comment on above: Performed By: #### C BC #### [facility] Laboratory [address] [address] [address] Roosevelt Verde WBC 4.9 103/ul Normal 4.0-11.0 [facility] Comment on above: Performed By: #### C BC #### [facility] Laboratory [address] [address] [address] Roosevelt Verde CREATININEon 11-17-2021 Creatinine [Mass/Vol] 1.02 mg/dL Normal 0.70-1.30 [facility] Comment on above: Performed By: #### C QUE, ALT, AST, CRP ####[facility] [address] [address]Dr. Roosevelt Verde EGFR-AF EGYPTIAN >60 Normal >=60 [facility] Comment on above: Performed By: #### C QUE, ALT, AST, CRP ####[facility] [address] [id number] Roosevelt Verde EGFR-NON AF EGYPTIAN >60 Normal >=60 [facility] Comment on above: Performed By: #### C QUE, ALT, AST, CRP ####[facility] [address] [place] [id number] Verde CRPon 11-17-2021 CRP [Mass/Vol] mg/L Normal <=1.0 [facility] Comment on above: Performed By: #### C QUE, ALT, AST, CRP ####[facility] [address] [place] [id number] Verde SED RATE WESTERGRENon 2021 SED RATE 3 mm/hr Normal <=20 [facility] Comment on above: Performed By: #### S EDR ####[facility] [address] [place] [id number]. Roosevelt Verde SGOTon 11-17-2021 AST [Catalytic activity/Vol] 13 U/L Critically low 15-37 [facility] Comment on above: Performed By: #### C QUE, ALT, AST, CRP ####[facility] [address] [place], [place] [address]N[place]. Roosevelt Verde SGPTon 11-17-2021 ALT [Catalytic activity/Vol] 22 U/L Normal 16-63 [facility] Comment on above: Performed By: #### C QUE, ALT, AST, CRP ####[facility] [address] [place] [id number]. Roosevelt Verde VIT D 25-OH LABCORPon 2021 Vitamin D, 25-Hydroxy 40.1 ng/mL Normal 30.0-100.0 [facility] Comment on above: Result Comment: Dunia min [...] National Academies Press. 2. Roberta MF, [place]elia [place], Alden BEARD, et al. Evaluation, treatment, and prevention of vitamin D deficiency: an Endocrine Society clinical practice guideline. JCEM. 2010; 96(7):1911-30. Performed By: #### C BC #### [facility] Laboratory [address] [address] [address] Roosevelt Verde CBC AUTO DIFFon 10-23-2021 BASO # 0.1 103/ul Normal 0.0-0.1 [facility] Comment on above: Performed By: #### C QUE, CRP, ALT, AST #### [facility] Laboratory [address] [address] [address] Roosevelt Verde Basophils/100 WBC (Bld) 0.5 % Normal 0.2-2.0 [facility] Comment on above: Performed By: #### C QUE, CRP, ALT, AST #### [facility] Laboratory [address] [place] [address] Dr. Roosevelt Verde EO # 0.1 103/ul Normal 0.0-0.7 [facility] Comment on above: Performed By: #### C QUE, CRP, ALT, AST #### [facility] Laboratory [address] [place] [address] Dr. Roosevelt Verde Eosinophils/100 WBC (Bld) 1.0 % Normal 0.9-7.0 [facility] Comment on above: Performed By: #### C QUE, CRP, ALT, AST #### [facility] Laboratory [address] [place] [address] Dr. Roosevelt Verde Erythrocyte distribution width (RBC) [Ratio] 13.4 % Normal 11.0-15.0 [facility] Comment on above: Performed By: #### C QUE, CRP, ALT, AST #### [facility] Laboratory [address] [place] [address] Dr. Roosevelt Verde Hematocrit (Bld) [Volume fraction] 43.1 % Normal 42.0-54.0 [facility] Comment on above: Performed By: #### C QUE, CRP, ALT, AST #### [facility] Laboratory [address] [place] [address] Dr. Roosevelt Verde Hemoglobin (Bld) [Mass/Vol] 14.4 g/dL Normal 14.0-18.0 [facility] Comment on above: Performed By: #### C QUE, CRP, ALT, AST #### [facility] Laboratory [address] [place] [address] Dr. Roosevelt Verde IG # 0.05 10e3/ul Critically high 0.00-0.03 [facility] Comment on above: Performed By: #### C QUE, CRP, ALT, AST #### [facility] Laboratory [address] [place] [address] Dr. Roosevelt Verde IG % 0.5 % Normal 0.0-0.5 [facility] Comment on above: Performed By: #### C QUE, CRP, ALT, AST #### [facility] Laboratory [address] [place] [address] Dr. Roosevelt Verde LYMPH # 1.9 103/ul Normal 1.2-3.8 [facility] Comment on above: Performed By: #### C QUE, CRP, ALT, AST #### [facility] Laboratory [address] [place] [address] Dr. Roosevelt Verde Lymphocytes/100 WBC (Bld) 19.3 % Critically low 20.5-60.0 [facility] Comment on above: Performed By: #### C QUE, CRP, ALT, AST #### [facility] Laboratory [address] [place] [address] Dr. Roosevelt Verde MANUAL DIFF REQ NO Normal [facility] Comment on above: Performed By: #### C QUE, CRP, ALT, AST #### [facility] Laboratory [address] [place] [address] Dr. Roosevelt Verde MCH (RBC) [Entitic mass] 34.4 pg Critically high 25.9-34.0 [facility] Comment on above: Performed By: #### C QUE, CRP, ALT, AST #### [facility] Laboratory [address] [place] [address] Dr. Roosevelt Verde MCHC (RBC) [Mass/Vol] 33.4 g/dL Normal 29.9-35.2 [facility] Comment on above: Performed By: #### C QUE, CRP, ALT, AST #### [facility] Laboratory [address] [place] [address] Dr. Roosevelt Verde MCV (RBC) [Entitic vol] 102.9 fL Critically high 80.0-94.0 [facility] Comment on above: Performed By: #### C QUE, CRP, ALT, AST #### [facility] Laboratory [address] [place] [address] Dr. Roosevelt Verde MONO # 0.8 103/ul Normal 0.3-0.8 [facility] Comment on above: Performed By: #### C QUE, CRP, ALT, AST #### [facility] Laboratory [address] [place] [address] Dr. Roosevelt Verde Monocytes/100 WBC (Bld) 8.7 % Normal 1.7-12.0 [facility] Comment on above: Performed By: #### C QUE, CRP, ALT, AST #### [facility] Laboratory [address] [place] [address] Dr. Roosevelt Verde NEUT # 6.8 103/ul Critically high 1.4-6.5 [facility] Comment on above: Performed By: #### C QUE, CRP, ALT, AST #### [facility] Laboratory [address] [place] [address] Dr. Roosevelt Verde Neutrophils/100 WBC (Bld) 70.0 % Normal 43.0-75.0 [facility] Comment on above: Performed By: #### C QUE, CRP, ALT, AST #### [facility] Laboratory [address] [place] [address] Dr. Roosevelt Verde Platelet mean volume (Bld) [Entitic vol] 9.2 fL Critically low 9.5-13.5 [facility] Comment on above: Performed By: #### C QUE, CRP, ALT, AST #### [facility] Laboratory [address] [place] [address] Dr. Roosevelt Verde PLT 328 103/ul Normal 150-450 [facility] Comment on above: Performed By: #### C QUE, CRP, ALT, AST #### [facility] Laboratory [address] [place] [address] Dr. Roosevelt Verde RBC 4.19 106/ul Critically low 4.70-6.10 [facility] Comment on above: Performed By: #### C QUE, CRP, ALT, AST #### [facility] Laboratory [address] [place] [address] Dr. Roosevelt Verde WBC 9.7 103/ul Normal 4.0-11.0 [facility] Comment on above: Performed By: #### C QUE, CRP, ALT, AST #### [facility] Laboratory [address] [place] [address] Dr. Roosevelt Verde ER URINE PROFILEon 2 Bilirubin Ql (U) Negative Normal NEGATIVE [facility] Comment on above: Performed By: #### C BC #### [facility] Laboratory [address] [place] [address] Dr. Roosevelt Verde Clarity (U) CLEAR Normal CLEAR [facility] Comment on above: Performed By: #### C BC #### [facility] Laboratory [address] [place] [address] Dr. Roosevelt Verde Color (U) YELLOW Normal YELLOW [facility] Comment on above: Performed By: #### C BC #### [facility] Laboratory [address] [place] [address] Dr. Roosevelt JONES A micrscopic examination will be performed if indicated. Normal [facility] Comment on above: Performed By: #### C BC #### [facility] Laboratory [address] [place] [address] Dr. Roosevelt Verde Glucose Ql (U) Negative Normal NEGATIVE [facility] Comment on above: Performed By: #### C BC #### [facility] [address] [place] [address] Dr. Roosevelt Verde Hemoglobin Ql (U) Negative Normal NEGATIVE [facility] Comment on above: Performed By: #### C BC #### [facility] Laboratory [address] [place] [address] Dr. Roosevelt Verde Ketones Ql (U) Negative Normal NEGATIVE [facility] Comment on above: Performed By: #### C BC #### [facility] Laboratory [address] [place] [address] Dr. Roosevelt Verde LEUKOCYTES Negative Normal NEGATIVE [facility] Comment on above: Performed By: #### C BC #### [facility] [address] [place] [address] Dr. Roosevelt Verde Nitrite Ql (U) Negative Normal NEGATIVE [facility] Comment on above: Performed By: #### C BC #### [facility] Laboratory [address] [place] [address] Dr. Roosevelt Verde pH (U) 5.5 [pH] Normal 5-9 [facility] Comment on above: Performed By: #### C BC #### [facility] Laboratory [address] [place] [address] Dr. Roosevelt Verde SPEC GRAVITY 1.025 Normal 1.005-<=1.025 [facility] Comment on above: Performed By: #### C BC #### [facility] Laboratory [address] [place] [address] Dr. Roosevelt Verde UA PROTEIN Negative Normal NEGATIVE/ TRACE [facility] Comment on above: Performed By: #### C BC #### [facility] Laboratory [address] [place] [address] Dr. Roosevelt Verde UR MICRO IND NOT INDICATED Normal [facility] Comment on above: Result Comment: Prev iously reported as: INDICATED On 10/23/2021 16:15 By CV2 Performed By: #### C BC #### [facility] Laboratory [address] [place] [address] Dr. Roosevelt Verde Urobilinogen Qn (U) 0.2 {Gogo'U}/dL Normal 0.2 - 1. 0 [facility] Comment on above: Performed By: #### C BC #### [facility] Laboratory [address] [place] [address] Dr. Roosevelt Verde LIPASEon 10-23-2021 Lipase [Catalytic activity/Vol] 137.0 U/L Normal 73.0-393.0 [facility] Comment on above: Performed By: #### C BC #### [facility] Laboratory [address] [place] [address] Dr. Roosevelt Verde PROF 14(COMP METB)on 022 Albumin [Mass/Vol] 4.0 g/dL Normal 3.4-5.0 [facility] Comment on above: Performed By: #### C BC #### [facility] Laboratory [address] [place] [address] Dr. Roosevelt Verde Albumin/Globulin [Mass ratio] 1.3 {ratio} Normal [facility] Comment on above: Performed By: #### C BC #### [facility] Laboratory [address] [place] [address] Dr. Roosevelt Verde ALP [Catalytic activity/Vol] 73 U/L Normal 46-116 [facility] Comment on above: Performed By: #### C BC #### [facility] [address] [place] [address] Dr. Roosevelt Verde ALT [Catalytic activity/Vol] 35 U/L Normal 16-63 [facility] Comment on above: Performed By: #### C BC #### [facility] Laboratory [address] [address] [address] Roosevelt Verde Anion gap [Moles/Vol] 9.9 mmol/L Normal [facility] Comment on above: Performed By: #### C BC #### [facility] [address] [place] [address] Dr. Roosevelt Verde AST [Catalytic activity/Vol] 16 U/L Normal 15-37 [facility] Comment on above: Performed By: #### C BC #### [facility] [address] [place] [address] Dr. Roosevelt Verde Bilirubin [Mass/Vol] 0.7 mg/dL Normal 0.2-1.0 [facility] Comment on above: Performed By: #### C BC #### [facility] Laboratory [address] [place] [address] Dr. Roosevelt Verde Calcium [Mass/Vol] 8.8 mg/dL Normal 8.5-10.1 [facility] Comment on above: Performed By: #### C BC #### [facility] [address] [place] [address] Dr. Roosevelt Verde Chloride [Moles/Vol] 107 mmol/L Normal 98-107 [facility] Comment on above: Performed By: #### C BC #### [facility] Laboratory [address] [address] [address] Roosevelt Verde CO2 [Moles/Vol] 27.6 mmol/L Normal 21.0-32.0 [facility] Comment on above: Performed By: #### C BC #### [facility] Laboratory [address] [place] [address] Dr. Roosevelt Verde Creatinine [Mass/Vol] 1.10 mg/dL Normal 0.70-1.30 [facility] Comment on above: Performed By: #### C BC #### [facility] Laboratory [address] [address] [address] Roosevelt Verde EGFR-AF EGYPTIAN >60 Normal >=60 [facility] Comment on above: Performed By: #### C BC #### [facility] Laboratory [address] [address] [address] Roosevelt Verde EGFR-NON AF EGYPTIAN >60 Normal >=60 [facility] Comment on above: Performed By: #### C BC #### [facility] [address] [address] [address] Roosevelt Verde Globulin (S) [Mass/Vol] 3.0 g/dL Normal [facility] Comment on above: Performed By: #### C BC #### [facility] Laboratory [address] [address] [address] Roosevelt Verde Glucose [Mass/Vol] 83 mg/dL Normal 74-[address] [facility] Comment on above: Performed By: #### C BC #### [facility] Laboratory [address] [address] [address] Roosevelt Verde Potassium [Moles/Vol] 4.5 mmol/L Normal 3.5-5.1 [facility] Comment on above: Performed By: #### C BC #### [facility] [address] [address] [address] Roosevelt Verde Protein [Mass/Vol] 7.0 g/dL Normal 6.4-8.[address] [facility] Comment on above: Performed By: #### C BC #### [facility] [address] [address] [address] Roosevelt Verde Sodium [Moles/Vol] 140 mmol/L Normal 136-[address] [facility] Comment on above: Performed By: #### C BC #### [facility] [address] [address] [address] Roosevelt Verde Urea nitrogen [Mass/Vol] 23.0 mg/dL Critically high 7.0-18.0 [facility] Comment on above: Performed By: #### C BC #### [facility] [address] [address] [address] Roosevelt Verde Urea nitrogen/Creatinine [Mass ratio] 20.9 mg/mg Normal [facility] Comment on above: Performed By: #### C BC #### [facility] Laboratory [address] [place] [address] Dr. Roosevelt Verde XR KUB 1 VIEWon [...] TRA ALDRIDGE Date: 2021-10-23 16:26 Normal [facility] CBC AUTO DIFFon 09-16-2021 BASO # 0.0 103/ul Normal 0.0-0.1 [facility] Comment on above: Performed By: #### C BC #### [facility] Laboratory [address] [place] [address] Dr. Roosevelt Verde Basophils/100 WBC (Bld) 0.5 % Normal 0.2-2.0 [facility] Comment on above: Performed By: #### C BC #### [facility] [address] [place] [address] Dr. Roosevelt Verde EO # 0.1 103/ul Normal 0.0-0.7 [facility] Comment on above: Performed By: #### C BC #### [facility] [address] [place] [address] Dr. Roosevelt Verde Eosinophils/100 WBC (Bld) 0.6 % Critically low 0.9-7.0 [facility] Comment on above: Performed By: #### C BC #### [facility] [address] [place] [address] Dr. Roosevelt Verde Erythrocyte distribution width (RBC) [Ratio] 13.2 % Normal 11.0-15.0 [facility] Comment on above: Performed By: #### C BC #### [facility] [address] [place] [address] Dr. Roosevelt Verde Hematocrit (Bld) [Volume fraction] 42.9 % Normal 42.0-54.0 [facility] Comment on above: Performed By: #### C BC #### [facility] [address] [place] [address] Dr. Roosevelt Verde Hemoglobin (Bld) [Mass/Vol] 14.2 g/dL Normal 14.0-18.0 [facility] Comment on above: Performed By: #### C BC #### [facility] [address] [place] [address] Dr. Roosevelt Verde IG # 0.03 10e3/ul Normal 0.00-0.03 [facility] Comment on above: Performed By: #### C BC #### [facility] [address] [place] [address] Dr. Roosevelt Verde IG % 0.4 % Normal 0.0-0.5 [facility] Comment on above: Performed By: #### C BC #### [facility] [address] [place] [address] Dr. Roosevelt Verde LYMPH # 1.7 103/ul Normal 1.2-3.8 [facility] Comment on above: Performed By: #### C BC #### [facility] [address] [place] [address] Dr. Roosevelt Verde Lymphocytes/100 WBC (Bld) 21.0 % Normal 20.5-60.0 [facility] Comment on above: Performed By: #### C BC #### [facility] [address] [place] [address] Dr. Roosevelt Verde MANUAL DIFF REQ NO Normal [facility] Comment on above: Performed By: #### C BC #### [facility] [address] [place] [address] Dr. Roosevelt Verde MCH (RBC) [Entitic mass] 34.5 pg Critically high 25.9-34.0 [facility] Comment on above: Performed By: #### C BC #### [facility] [address] [place] [address] Dr. Roosevelt Verde MCHC (RBC) [Mass/Vol] 33.1 g/dL Normal 29.9-35.2 [facility] Comment on above: Performed By: #### C BC #### [facility] [address] [place] [address] Dr. Roosevelt Verde MCV (RBC) [Entitic vol] 104.4 fL Critically high 80.0-94.0 [facility] Comment on above: Performed By: #### C BC #### [facility] [address] [place] [address] Dr. Roosevelt Verde MONO # 0.8 103/ul Normal 0.3-0.8 [facility] Comment on above: Performed By: #### C BC #### [facility] [address] [place] [address] Dr. Roosevelt Verde Monocytes/100 WBC (Bld) 9.6 % Normal 1.7-12.0 [facility] Comment on above: Performed By: #### C BC #### [facility] [address] [place] [address] Dr. Roosevelt Verde NEUT # 5.5 103/ul Normal 1.4-6.5 [facility] Comment on above: Performed By: #### C BC #### [facility] [address] [place] [address] Dr. Roosevelt Verde Neutrophils/100 WBC (Bld) 67.9 % Normal 43.0-75.0 [facility] Comment on above: Performed By: #### C BC #### [facility] [address] [place] [address] Dr. Roosevelt Verde Platelet mean volume (Bld) [Entitic vol] 9.4 fL Critically low 9.5-13.5 [facility] Comment on above: Performed By: #### C BC #### [facility] [address] [address] [address] Roosevelt Verde PLT 290 103/ul Normal 150-450 [facility] Comment on above: Performed By: #### C BC #### [facility] [address] [address] [address] Roosevelt Verde RBC 4.11 106/ul Critically low 4.70-6.10 [facility] Comment on above: Performed By: #### C BC #### [facility] [address] [place] [address] Dr. Roosevelt Verde WBC 8.1 103/ul Normal 4.0-11.0 [facility] Comment on above: Performed By: #### C BC #### [facility] [address] [place] [address] Dr. Roosevelt Verde CREATININEon 09-16-2021 Creatinine [Mass/Vol] 1.20 mg/dL Normal 0.70-1.30 [facility] Comment on above: Performed By: #### C QUE, CRP, ALT, AST #### [facility] [address] [place] [address] Dr. Roosevelt Verde EGFR-AF EGYPTIAN >=60 Normal >=60 [facility] Comment on above: Performed By: #### C QUE, CRP, ALT, AST #### [facility] [address] [place] [address] Dr. Roosevelt Verde EGFR-NON AF EGYPTIAN >=60 Normal >=60 [facility] Comment on above: Performed By: #### C QUE, CRP, ALT, AST #### [facility] [address] [place] [address] Dr. oRosevelt Verde CRPon 09-16-2021 CRP [Mass/Vol] mg/L Normal <=1.0 [facility] Comment on above: Performed By: #### C QUE, CRP, ALT, AST #### [facility] [address] [place] [address] Dr. Roosevelt Verde SED RATE WESTERGRENon 2021 SED RATE 4 mm/hr Normal <=20 [facility] Comment on above: Performed By: #### S EDR ####[facility] [address] [place], [place] [address]AiDr. Roosevelt Verde SGOTon 09-16-2021 AST [Catalytic activity/Vol] 17 U/L Normal 15-37 [facility] Comment on above: Performed By: #### C QUE, CRP, ALT, AST #### [facility] [address] [place], [place] [address] Dr. Roosevelt Verde SGPTon 09-16-2021 ALT [Catalytic activity/Vol] 36 U/L Normal 16-63 [facility] Comment on above: Performed By: #### C QUE, CRP, ALT, AST #### [facility] [address] [place], [place] [address] Dr. Roosevelt Verde VIT D, 1,25 DIHYDROXon 07-13 VIT. D 1,25 41.4 Normal [facility] Comment on above: Result Comment: Refe rence range: 19.9 to 79.3 Unit: pg/mL PERFORMED AT [facility] Performed By: #### L [id number] #### Testing performed at [facility] 25 0H VITAMIN D LEVELon 07-01 25 0H VITAMIN D LEVEL 47.4 NG/ML Normal [facility] Comment on above: Result Comment: DEFICIENT <20 NG/ML INSUFFICIENT 20-<30 NG/ML SUFFICIENT 30-100 NG/ML POTENTIAL TOXICITY >100 NG/ML Demetrius 07-12-2021 ALT [Catalytic activity/Vol] 25 U/L Normal <50 [facility] Comment on above: Performed By: #### L [id number] #### Testing performed at [facility] ALT [Catalytic activity/Vol] 25 U/L <50 IU/L [facility] Levar 07-12-2021 AST [Catalytic activity/Vol] 22 U/L Normal 17-59 [facility] Comment on above: Performed By: #### L VD125 #### Testing performed at [facility] AST [Catalytic activity/Vol] 22 U/L [facility] C REACTIVE PROTEINon 022 CRP [Mass/Vol] mg/L Normal 0-10 [facility] Comment on above: Performed By: #### L VD125 #### Testing performed at [facility] CRP [Mass/Vol] mg/L 0 - 10 MG/L [facility] CBCon 07-12-2021 ABSOLUTE BAS 0.0 10*3/uL Normal 0.0-0.2 [facility] Comment on above: Performed By: #### L VD125 #### Testing performed at [facility] ABSOLUTE EOS 0.10 10*3/uL Normal 0.0-0.7 [facility] Comment on above: Performed By: #### L VD125 #### Testing performed at [facility] ABSOLUTE NEUTROPHIL COUNT 4.2 10*3/uL Normal 1.4-6.5 [facility] Comment on above: Performed By: #### L VD125 #### Testing performed at [facility] Basophils/100 WBC (Bld) 0.5 % Normal 0.0-2.0 [facility] Comment on above: Performed By: #### L VD125 #### Testing performed at [facility] DTYPE AUTO DIFF Normal [facility] Comment on above: Performed By: #### L VD125 #### Testing performed at [facility] Eosinophils/100 WBC (Bld) 0.9 % Normal 0.0-11.0 [facility] Comment on above: Performed By: #### L VD125 #### Testing performed at [facility] Lymphocytes (Bld) [#/Vol] 1.20 10*3/uL Normal 1.2-3.4 [facility] Comment on above: Performed By: #### L VD125 #### Testing performed at [facility] Lymphocytes/100 WBC (Bld) 20.2 % Normal 20.0-55.0 [facility] Comment on above: Performed By: #### L VD125 #### Testing performed at [facility] Monocytes (Bld) [#/Vol] 0.6 10*3/uL Normal 0.0-0.7 [facility] Comment on above: Performed By: #### L VD125 #### Testing performed at [facility] Monocytes/100 WBC (Bld) 10.2 % High 0.0-10.0 [facility] Comment on above: Performed By: #### L VD125 #### Testing performed at [facility] Neutrophils/100 WBC (Bld) 68.2 % Normal 37.0-75.0 [facility] Comment on above: Performed By: #### L VD125 #### Testing performed at [facility] Erythrocyte distribution width (RBC) [Ratio] 14.5 % Normal 11.5-14.5 [facility] Comment on above: Performed By: #### L VD125 #### Testing performed at [facility] Hematocrit (Bld) [Volume fraction] 43.9 % Normal 42.0-52.0 [facility] Comment on above: Performed By: #### L VD125 #### Testing performed at [facility] Hemoglobin (Bld) [Mass/Vol] 14.6 g/dL Normal 14.0-18.0 [facility] Comment on above: Performed By: #### L VD125 #### Testing performed at [facility] MCH (RBC) [Entitic mass] 34.7 pg Normal 26.0-35.0 [facility] Comment on above: Performed By: #### L VD125 #### Testing performed at [facility] MCHC (RBC) [Mass/Vol] 33.2 g/dL Normal 27.0-37.0 [facility] Comment on above: Performed By: #### L VD125 #### Testing performed at [facility] MCV (RBC) [Entitic vol] 104.6 fL High 80.0-100.0 [facility] Comment on above: Performed By: #### L VD125 #### Testing performed at [facility] Platelet mean volume (Bld) [Entitic vol] 7.4 fL Normal 7.4-11.0 [facility] Comment on above: Performed By: #### L VD125 #### Testing performed at [facility] Platelets (Bld) [#/Vol] 304 10*3/uL Normal 130.0-400.0 [facility] Comment on above: Performed By: #### L VD125 #### Testing performed at [facility] RBC (Bld) [#/Vol] 4.20 10*6/uL Normal 4.0-6.1 [facility] Comment on above: Performed By: #### L VD125 #### Testing performed at [facility] WBC (Bld) [#/Vol] 6.2 10*3/uL Normal 3.6-11.0 [facility] Comment on above: Performed By: #### L VD125 #### Testing performed at [facility] CBC, EDIF, PLATELETon 2021 ABSOLUTE BASOPHIL COUNT 0.0 10*3/uL 0.0 - 0.2 10*3/uL [facility] Basophils/100 WBC (Bld) 0.5 % 0.0 - 2.0 % [facility] Differential cell count method Nom (Bld) AUTO DIFF % [facility] Eosinophils (Bld) [#/Vol] 0.10 10*3/uL 0.0 - 0.7 10*3/uL [facility] Eosinophils/100 WBC (Bld) 0.9 % 0.0 - 11.0 % [facility] Erythrocyte distribution width (RBC) [Ratio] 14.5 % 11.5 - 14.5 % [facility] Hematocrit (Bld) [Volume fraction] 43.9 % 42.0 - 52.0 % [facility] Hemoglobin (Bld) [Mass/Vol] 14.6 g/dL [facility] Interpretation and review of laboratory results Abnormal [facility] Lymphocytes (Bld) [#/Vol] 1.20 10*3/uL 1.2 - 3.4 10*3/uL [facility] Lymphocytes/100 WBC (Bld) 20.2 % 20.0 - 55.0 % [facility] MCH (RBC) [Entitic mass] 34.7 pg 26.0 - 35.0 PG [facility] MCHC (RBC) [Mass/Vol] 33.2 g/dL [facility] MCV (RBC) [Entitic vol] 104.6 fL High [facility] Monocytes (Bld) [#/Vol] 0.6 10*3/uL 0.0 - 0.7 10*3/uL [facility] Monocytes/100 WBC (Bld) 10.2 % High 0.0 - 10.0 % [facility] Neutrophils (Bld) [#/Vol] 4.2 10*3/uL 1.4 - 6.5 10*3/uL [facility] Neutrophils/100 WBC (Bld) 68.2 % 37.0 - 75.0 % [facility] Platelet mean volume (Bld) [Entitic vol] 7.4 fL [facility] Platelets (Bld) [#/Vol] 304 10*3/uL 130.0 - 400.0 10*3/uL [facility] RBC (Bld) [#/Vol] 4.20 10*6/uL 4.0 - 6.1 10*6/u L [facility] WBC (Bld) [#/Vol] 6.2 10*3/uL 3.6 - 11.0 10*3/uL [facility] CREATININE SERUMon 2 Creatinine [Mass/Vol] 0.92 mg/dL [facility] GFR COMMENT Average GFR for 50-59 years old = 93. [facility] Comment on above: Chronic Kidney disea se, GFR = <60. Kidney failure, GFR = <15. The GFR estimate is not adjusted for extreme body surface area or acute process, nor has it been validated for women or ethnic groups other than and . GFR/1.73 sq M.predicted among blacks MDRD (S/P/Bld) [Vol rate/Area] 110 mL/min/{1.73_m2} ml/min/1.73sq.m [facility] GFR/1.73 sq M.predicted among non-blacks MDRD (S/P/Bld) [Vol rate/Area] 91 mL/min/{1.73_m2} ml/min/1.73sq.m [facility] CREATININE,SERUMon 2 Creatinine [Mass/Vol] 0.92 mg/dL Normal 0.7-1.2 [facility] Comment on above: Performed By: #### L VD125 #### Testing performed at [facility] EST. GFR, 110 ml/min/1.73sq.m [facility] Comment on above: Performed By: #### L VD125 #### Testing performed at [facility] EST. GFR,Non 91 ml/min/1.73sq.m [facility] Comment on above: Performed By: #### L VD125 #### Testing performed at [facility] GFR Information Average GFR for 50-59 years old = 93. Normal [facility] Comment on above: Result Comment: Thinner Sprayer alvin Kidney disease, GFR = <60. Kidney failure, GFR = <15. The GFR estimate is not adjusted for extreme body surface area or acute process, nor has it been validated for women or ethnic groups other than and . Performed By: #### L VD125 #### Testing performed at [facility] ESRon 07-12-2021 ESR (Bld) [Velocity] 2 mm/h Normal 0-20 [facility] Comment on above: Performed By: #### L VD125 #### Testing performed at [facility] No Panel Informationon 07-12 [facility] SEDIMENTATION RATE, AUTOMATE Don 07-12-2021 ESR (Bld) [Velocity] 2 mm/h [facility] VITAMIN D (25-HYDROXY,TOTAL) on 07-12-2021 25-hydroxyvitamin D [Mass/Vol] 47.4 NG/ML [facility] Comment on above: DEFICIENT <20 NG/ML INSUFFICIENT 20-<30 NG/ML SUFFICIENT 30-100 NG/ML POTENTIAL TOXICITY >100 NG/ML [facility] Q - QUANTIFERON TB GOLD PLUS on 03-18-2021 MITOGEN-NIL 9.02 IU/mL Normal [facility] Comment on above: Order Comment: [facility] Testing performed at: [facility], [facility], [address] [facility], [address] [place] [address], [address] [place] [address], Protective Service Specialist: Rick Connors MD [facility] Collection Date/Time: [facility] Results Received Date/Time: [facility] Reported Date/Time: FASTING: NO Performed By: #### [id number] #### [facility] Default [address] [place] [address] NIL 0.03 IU/mL Normal [facility] Comment on above: Order Comment: [facility] Testing performed at: [employer], [address] [place] [address], [address] [place] [address], [address] [place] [address], Protective Service Specialist: Rick Connors MD [facility] Date/Time: [facility] Results Received Date/Time: [facility] Reported Date/Time: FASTING: NO Performed By: #### 3 [id number] #### [facility] Default [address] [place] [address] QUANTIFERON(R)-TB GOLD PLUS, 1 TUBE Negative Normal NEGATIVE [facility] Specialist Comment on above: Order Comment: [facility] Testing performed at: [employer], [facility], [address] [place] [address], [address] [place] [address], [address] [place] [address], Protective Service Specialist: Rick Connors MD [facility] Date/Time: [facility] Results Received Date/Time: [facility] Reported Date/Time: FASTING: NO Result Comment: Nega tive test result. M. tuberculosis complex infection unlikely. Performed By: #### [id number] #### [facility] [address] [place] [address] TB1-NIL 0.00 IU/mL Normal [facility] Comment on above: Order Comment: [facility] Testing performed at: [employer], [address] [place] [address], [address] [place] [address], [address] [place] [address], Protective Service Specialist: Rick Connors MD [facility] Date/Time: [facility] Results Received Date/Time: [id number] [facility] Reported Date/Time: FASTING: NO Performed By: #### [id number] #### [facility] Default [address] [place] [address] TB2-NIL 0.00 IU/mL Normal [facility] Specialist Comment on above: Order Comment: [facility] performed at: Q, [facility], [address] [facility], [address] [facility], [place], [address], Protective Service Specialist: Rick Connors MD [facility] Date/Time: [facility] [...] T-lymphocytes. For additional information, please refer to https://education.[employer]/faq/TER158 (This link is being provided for informational/ educational purposes only.) Performed By: #### [id number] #### [facility] Default [address] [place] [address] Demetrius 07-13-2020 ALT [Catalytic activity/Vol] 18 U/L <50 IU/L [facility] Levar 07-13-2020 AST [Catalytic activity/Vol] 19 U/L [facility] C REACTIVE PROTEINon 021 CRP [Mass/Vol] mg/L 0 - 10 MG/L [facility] CBC, EDIF, PLATELETon 2020 ABSOLUTE BASOPHIL COUNT 0.1 10*3/uL 0.0 - 0.2 10*3/uL [facility] Basophils/100 WBC (Bld) 0.8 % 0.0 - 2.0 % [facility] Differential cell count method Nom (Bld) AUTO DIFF % [facility] Eosinophils (Bld) [#/Vol] 0.10 10*3/uL 0.0 - 0.7 10*3/uL [facility] Eosinophils/100 WBC (Bld) 1.7 % 0.0 - 11.0 % [facility] Erythrocyte distribution width (RBC) [Ratio] 15.4 % High 11.5 - 14.5 % [facility] Hematocrit (Bld) [Volume fraction] 44.9 % 42.0 - 52.0 % [facility] Hemoglobin (Bld) [Mass/Vol] 15.4 g/dL [facility] Interpretation and review of laboratory results Abnormal [facility] Lymphocytes (Bld) [#/Vol] 2.00 10*3/uL 1.2 - 3.4 10*3/uL [facility] Lymphocytes/100 WBC (Bld) 22.9 % 20.0 - 55.0 % [facility] MCH (RBC) [Entitic mass] 36.0 pg High 26.0 - 35.0 PG [facility] MCHC (RBC) [Mass/Vol] 34.3 g/dL [facility] MCV (RBC) [Entitic vol] 104.8 fL High [facility] Monocytes (Bld) [#/Vol] 1.0 10*3/uL High 0.0 - 0.7 10*3/uL [facility] Monocytes/100 WBC (Bld) 11.1 % High 0.0 - 10.0 % [facility] Neutrophils (Bld) [#/Vol] 5.4 10*3/uL 1.4 - 6.5 10*3/uL [facility] Neutrophils/100 WBC (Bld) 63.5 % 37.0 - 75.0 % [facility] Platelet mean volume (Bld) [Entitic vol] 7.6 fL [facility] Platelets (Bld) [#/Vol] 276 10*3/uL 130.0 - 400.0 10*3/uL [facility] RBC (Bld) [#/Vol] 4.29 10*6/uL 4.0 - 6.1 10*6/u L [facility] WBC (Bld) [#/Vol] 8.6 10*3/uL 3.6 - 11.0 10*3/uL [facility] CREATININE SERUMon 1 Creatinine [Mass/Vol] 1.01 mg/dL [facility] GFR/1.73 sq M predicted among blacks MDRD (S/P/Bld) [Vol rate/Area] mL/min/{1.73_m2} ml/min/1.73sq.m [facility] GFR/1.73 sq M predicted among non-blacks MDRD (S/P/Bld) [Vol rate/Area] Average GFR for 50-59 years old = 93. [facility] Comment on above: Chronic Kidney disea se, GFR = <60. Kidney failure, GFR = <15. The GFR estimate is not adjusted for extreme body surface area or acute process, nor has it been validated for women or ethnic groups other than and . GFR/1.73 sq M predicted among non-blacks MDRD (S/P/Bld) [Vol rate/Area] mL/min/{1.73_m2} ml/min/1.73sq.m [facility] Otheron 07-13-2020 [facility] SEDIMENTATION RATE, AUTOMATE Don 07-13-2020 ESR (Bld) [Velocity] 9 mm/h [facility] VITAMIN D (25-HYDROXY,TOTAL) on 07-13-2020 25-Hydroxyvitamin D2+25-Hydroxyvitamin D3 [Mass/Vol] 54.1 NG/ML [facility] Comment on above: DEFICIENT <20 NG/ML INSUFFICIENT 20-<30 NG/ML SUFFICIENT 30-100 NG/ML POTENTIAL TOXICITY >100 NG/ML [facility] Operative Reporton 1 Operative Report MR#: [id number] S [facility] Pt. Name: Glenda Buckley Room #: 0C Discharge Date: Birthdate: 1965 OPERATIVE REPORT DATE OF SURGERY: 07/05/2020 SURGEON: Piil Allan M.D. PREOPERATIVE DIAGNOSES: Epigastric hernia, incisional [...] closed using Prolene sutures placed in a [id number] fashion. No mesh was placed. The subcutaneous [...] by: Pili Allan M.D. 07/08/2020 06:33 P Pili Allan M.D. I was present for the entire procedure. Date Dict: 07/05/2020/02:38 P/Neelam Stiles MD Date Trans: 07/06/2020 01:22 A/delilaho [id number] cc: Rodrigo Luz M.D. [address] [place] [address] A [facility] [address] Normal [facility] POC GLUCOSE LABon 07-05-2020 Glucose [Mass/Vol] 90 mg/dL Normal 70-100 [facility] Comment on above: Performed By: #### [id number] #### [facility] [address] [address], [facility] Demetrius 01-13-2020 ALT [Catalytic activity/Vol] 21 U/L <50 IU/L [facility] Levar 01-13-2020 AST [Catalytic activity/Vol] 22 U/L [facility] C REACTIVE PROTEINon 020 CRP [Mass/Vol] mg/L 0 - 10 MG/L [facility] CBC, EDIF, PLATELETon 2019 ABSOLUTE BASOPHIL COUNT 0.0 10*3/uL 0 - 0.2 10*3/uL [facility] Basophils/100 WBC (Bld) 0.6 % 0 - 2 % [facility] Differential cell count method Nom (Bld) AUTO DIFF % [facility] Eosinophils (Bld) [#/Vol] 0.10 10*3/uL 0 - 0.7 10*3/uL [facility] Eosinophils/100 WBC (Bld) 1.1 % 0 - 11 % [facility] Erythrocyte distribution width (RBC) [Ratio] 14.1 % 11.5 - 14.5 % [facility] Hematocrit (Bld) [Volume fraction] 43.7 % 42 - 52 % [facility] Hemoglobin (Bld) [Mass/Vol] 15.0 g/dL [facility] Interpretation and review of laboratory results Abnormal [facility] Lymphocytes (Bld) [#/Vol] 1.50 10*3/uL 1.2 - 3.4 10*3/uL [facility] Lymphocytes/100 WBC (Bld) 21.7 % 20 - 55 % [facility] MCH (RBC) [Entitic mass] 35.2 pg High 26 - 35 PG [facility] MCHC (RBC) [Mass/Vol] 34.3 g/dL [facility] MCV (RBC) [Entitic vol] 102.7 fL High [facility] Monocytes (Bld) [#/Vol] 0.8 10*3/uL High 0 - 0.7 10*3/uL [facility] Monocytes/100 WBC (Bld) 11.4 % High 0 - 10 % [facility] Neutrophils (Bld) [#/Vol] 4.4 10*3/uL 1.4 - 6.5 10*3/uL [facility] Neutrophils/100 WBC (Bld) 65.2 % 37 - 75 % [facility] Platelet mean volume (Bld) [Entitic vol] 7.4 fL [facility] Platelets (Bld) [#/Vol] 265 10*3/uL 130 - 400 10*3/uL [facility] RBC (Bld) [#/Vol] 4.25 10*6/uL 4 - 6.1 10*6/uL [facility] WBC (Bld) [#/Vol] 6.8 10*3/uL 3.6 - 11 10*3/uL [facility] CREATININE SERUMon 0 Creatinine [Mass/Vol] 0.95 mg/dL [facility] GFR/1.73 sq M predicted among blacks MDRD (S/P/Bld) [Vol rate/Area] mL/min/{1.73_m2} ml/min/1.73sq.m [facility] GFR/1.73 sq M predicted among non-blacks MDRD (S/P/Bld) [Vol rate/Area] Average GFR for 50-59 years old = 93. [facility] Comment on above: Chronic Kidney disea se, GFR = <60. Kidney failure, GFR = <15. The GFR estimate is not adjusted for extreme body surface area or acute process, nor has it been validated for women or ethnic groups other than and . GFR/1.73 sq M predicted among non-blacks MDRD (S/P/Bld) [Vol rate/Area] mL/min/{1.73_m2} ml/min/1.73sq.m [facility] SEDIMENTATION RATE, AUTOMATE Don 01-13-2020 ESR (Bld) [Velocity] 5 mm/h [facility] Vital Signs Date Time Vital Sign Value Performing Clinician Facility 01-23-2023 08:58-0400 Body height 182.9 cm Tra Vale Jr., DO Work Phone: [phone] [place] [address] 01-23-2023 08:58-0400 Body mass index (BMI) [Ratio] 33.52 kg/m2 Tra Vale Jr., DO Work Phone: [phone] [place] [address] 01-23-2023 08:58-0400 Body temperature 97.81 [degF] Tra Vale Jr., DO Work Phone: [phone] [address] [place] [address] 01-23-2023 08:58-0400 Body weight 112.1 kg Tra Vale Jr., DO Work Phone: [phone] [place] [address] 01-23-2023 08:58-0400 Diastolic blood pressure 80 mm[Hg] Tra Vale Jr., DO Work Phone: [phone])[phone] [place] [address] 01-23-2023 08:58-0400 Heart rate 66 /min Tra Vale Jr., DO Work Phone: [phone] [place] [address] 01-23-2023 08:58-0400 SaO2% (BldA) [Mass fraction] 99 % Tra Vale Jr., DO Work Phone: [phone])794-505033 [place] [address] 01-23-2023 08:58-0400 Systolic blood pressure 122 mm[Hg] Tra Vale Jr., DO Work Phone: [phone])[phone] [place] [address] 07-25-2022 08:41-0400 Body height 182.9 cm Tra Vale Jr., DO Work Phone: [phone] [place] [address] 07-25-2022 08:41-0400 Body mass index (BMI) [Ratio] 33.53 kg/m2 Tra Vale Jr., DO Work Phone: [phone])508-446833 [place] [address] 07-25-2022 08:41-0400 Body weight 112.13 kg Tra Vale Jr., DO Work Phone: [employer] 07-25-2022 08:41-0400 Diastolic blood pressure 76 mm[Hg] Tra Vale Jr., DO Work Phone: [employer] 07-25-2022 08:41-0400 Heart rate 64 /min Tra Vale Jr., DO Work Phone: [employer] 07-25-2022 08:41-0400 Respiratory rate 18 /min Tra Vale Jr., DO Work Phone: [employer] 07-25-2022 08:41-0400 SaO2% (BldA) [Mass fraction] 99 % Tra Vale Jr., DO Work Phone: [employer] 07-25-2022 08:41-0400 Systolic blood pressure 108 mm[Hg] Tra Vale Jr., DO Work Phone: [employer] 06-17-2022 12:30-0400 Body height 180.34 cm Tania Ocasiomond Other [facility] Other 06-17-2022 12:30-0400 Body mass index (BMI) [Ratio] 33.47 kg/m2 Tania Ocasiomond Other [facility] Other 06-17-2022 12:30-0400 Body weight 108.86 kg Tania Val Other [facility] Other 06-17-2022 12:30-0400 Diastolic blood pressure 90 mm[Hg] Tania Ocasiomond Other [facility] Other 06-17-2022 12:30-0400 Respiratory rate 18 /min Tania Ocasiomond Other [facility] Other 06-17-2022 12:30-0400 SaO2% (BldA) [Mass fraction] 99 % Tania Neal Other [facility] Other 06-17-2022 12:30-0400 Systolic blood pressure 150 mm[Hg] Tania Neal Other [facility] Other 01-10-2022 08:38-0400 Body height 182.9 cm Tra Vale Jr., DO Work Phone: [employer] 01-10-2022 08:38-0400 Body mass index (BMI) [Ratio] 36.21 kg/m2 Tra Vale Jr., DO Work Phone: [employer] 01-10-2022 08:38-0400 Body temperature 98.01 [degF] Tra Vale Jr., DO Work Phone: [employer] 01-10-2022 08:38-0400 Body weight 121.11 kg Tra Vale Jr., DO Work Phone: [employer] 01-10-2022 08:38-0400 Diastolic blood pressure 78 mm[Hg] Tra Vale Jr., DO Work Phone: [employer] 01-10-2022 08:38-0400 Heart rate 71 /min Tra Vale Jr., DO Work Phone: [employer] 01-10-2022 08:38-0400 SaO2% (BldA) [Mass fraction] 98 % Tra Vale Jr., DO Work Phone: [employer] 01-10-2022 08:38-0400 Systolic blood pressure 116 mm[Hg] Tra Vale Jr., DO Work Phone: [employer] [facility] 07-12-2021 08:11-0400 Body height 182.9 cm Tra Vale Jr., DO Work Phone: [employer] [facility] 07-12-2021 08:11-0400 Body mass index (BMI) [Ratio] 38.52 kg/m2 Tra Vale Jr., DO Work Phone: [facility] 07-12-2021 08:11-0400 Body temperature 98.01 [degF] Tra Vale Jr., DO Work Phone: [facility] 07-12-2021 08:11-0400 Body weight 128.82 kg Tra Vale Jr., DO Work Phone: [facility] 07-12-2021 08:11-0400 Diastolic blood pressure 76 mm[Hg] Tra Vale Jr., DO Work Phone: [facility] 07-12-2021 08:11-0400 Heart rate 70 /min Tra Vale Jr., DO Work Phone: [facility] 07-12-2021 08:11-0400 SaO2% (BldA) [Mass fraction] 97 % Tra Vale Jr., DO Work Phone: [facility] 07-12-2021 08:11-0400 Systolic blood pressure 126 mm[Hg] Tra Vale Jr., DO Work Phone: [facility] 07-13-2020 08:01-0400 BMI (Body Mass Index) 38.52 kg/m2 [facility] 07-13-2020 08:01-0400 Body Temperature 97.9 [degF] Tra [facility] 07-13-2020 08:01-0400 Body weight 128.82 kg [facility] 07-13-2020 08:01-0400 BP Diastolic 84 mm[Hg] [facility] 07-13-2020 08:01-0400 BP Systolic 126 mm[Hg] [facility] 07-13-2020 08:01-0400 Height 182.9 cm [facility] 07-13-2020 08:01-0400 Pulse (Heart Rate) 71 /min [facility] 07-13-2020 08:01-0400 Pulse Oximetry 97 % [facility] 01-13-2020 08:05-0400 BMI (Body Mass Index) 43.81 kg/m2 [facility] 01-13-2020 08:05-0400 Body Temperature 97 [degF] [facility] 01-13-2020 08:05-0400 Body weight 146.51 kg [facility] 01-13-2020 08:05-0400 BP Diastolic 80 mm[Hg] [facility] 01-13-2020 08:05-0400 BP Systolic 130 mm[Hg] [facility] 01-13-2020 08:05-0400 Height 182.9 cm [facility] 09-09-2019 08:21-0400 BMI (Body Mass Index) 43.81 kg/m2 [facility] 09-09-2019 08:21-0400 Body Temperature 97.81 [degF] [facility] 09-09-2019 08:21-0400 Body weight 146.51 kg [facility] 09-09-2019 08:21-0400 BP Diastolic 80 mm[Hg] [facility] 09-09-2019 08:21-0400 BP Systolic 138 mm[Hg] [facility] 09-09-2019 08:21-0400 Height 182.9 cm [facility] 09-09-2019 08:21-0400 Pulse (Heart Rate) 83 /min [facility] 09-09-2019 08:21-0400 Pulse Oximetry 98 % [facility] 05-06-2019 09:12-0500 BMI (Body Mass Index) 42.72 kg/m2 [facility] 05-06-2019 09:12-0500 Body Temperature 98.01 [degF] [facility] 05-06-2019 09:12-0500 Body weight 142.88 kg [facility] 05-06-2019 09:12-0500 BP Diastolic 86 mm[Hg] [facility] 05-06-2019 09:12-0500 BP Systolic 154 mm[Hg] [facility] 05-06-2019 09:12-0500 Height 182.9 cm [facility] 05-06-2019 09:12-0500 Pulse (Heart Rate) 85 /min [facility] 05-06-2019 09:12-0500 Pulse Oximetry 97 % [facility] 01-07-2019 09:14-0400 BMI (Body Mass Index) 42.72 kg/m2 [facility] 01-07-2019 09:14-0400 Body Temperature 98.01 [degF] [facility] 01-07-2019 09:14-0400 Body weight 142.88 kg [facility] 01-07-2019 09:14-0400 BP Diastolic 88 mm[Hg] [facility] 01-07-2019 09:14-0400 BP Systolic 132 mm[Hg] [facility] 01-07-2019 09:14-0400 Height 182.9 cm [facility] 01-07-2019 09:14-0400 Pulse (Heart Rate) 76 /min [facility] 01-07-2019 09:14-0400 Pulse Oximetry 97 % [facility] 09-03-2018 11:29-0400 BMI (Body Mass Index) 42.83 kg/m2 [facility] 09-03-2018 11:29-0400 Body Temperature 98.01 [degF] [facility] 09-03-2018 11:29-0400 BP Diastolic 88 mm[Hg] [facility] 09-03-2018 11:29-0400 BP Systolic 132 mm[Hg] [facility] 09-03-2018 11:29-0400 Height 182.9 cm [facility] 09-03-2018 11:29-0400 Pulse (Heart Rate) 72 /min [facility] 09-03-2018 11:29-0400 Pulse Oximetry 97 % [facility] 09-03-2018 11:29-0400 Weight 143.25 kg [facility] 05-03-2018 11:51-0500 BMI (Body Mass Index) 40.01 kg/m2 [facility] Work Phone: 05-03-2018 11:51-0500 Body Temperature 98.01 [degF] [facility] Work Phone: 05-03-2018 11:51-0500 BP Diastolic 80 mm[Hg] [facility] Work Phone: 05-03-2018 11:51-0500 BP Systolic 132 mm[Hg] [facility] Work Phone: 05-03-2018 11:51-0500 Height 182.[address] [facility] Work Phone: 05-03-2018 11:51-0500 Pulse (Heart Rate) 89 /min [facility] Work Phone: 05-03-2018 11:51-0500 Pulse Oximetry 97 % [facility] Work Phone: 05-03-2018 11:51-0500 Weight 133.[address] [facility] Work Phone: 03-29-2018 07:14-0500 Body Temperature 98.01 [degF] [facility] Work Phone: 03-29-2018 07:14-0500 BP Diastolic 84 mm[Hg] [facility] Work Phone: 03-29-2018 07:14-0500 BP Systolic 136 mm[Hg] [facility] Work Phone: 03-29-2018 07:14-0500 Height 182.[address] [facility] Work Phone: 03-29-2018 07:14-0500 Pulse (Heart Rate) 80 /min [facility] Work Phone: 03-29-2018 07:14-0500 Pulse Oximetry 96 % [facility] Work Phone: Encounters Encounter Date Encounter Type Care Provider Facility Start: 07-03-2023 End: 07-04-2023 ambulatory German Carrion Facility:[facility] Start: 07-03-2023 End: 07-03-2023 Patient encounter procedure German Carrion [facility] Start: 05-17-2023 End: 05-18-2023 ambulatory German Carrion Facility:[facility] [place] Start: 04-06-2023 End: 04-07-2023 ambulatory German Carrion Facility: [facility] Start: 03-12-2023 End: 03-13-2023 ambulatory German Carrion Facility: [facility] [place] Start: 03-05-2023 End: 03-06-2023 ambulatory German Carrion Facility: [facility] Start: 02-15-2023 End: 02-16-2023 ambulatory German Carrion Facility:[facility] [place] Start: 01-23-2023 ambulatory [facility] Start: 01-23-2023 End: 01-23-2023 Office outpatient visit 15 minutes Tra Pedro Amaliakaya Work Phone: [employer] [facility] Rheumatology Comment on above: Psoriatic arthritis (Primary Dx); 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; Psoriatic spondylitis; Plaque psoriasis; Psoriasis; SAPHO syndrome; History of kidney stones; 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 arthritis; Long-term current use of high risk medication other than anticoagulant; Methotrexate, fci, current use; Vitamin D deficiency; DDD (degenerative [...] End: 11-15-2022 Lab Drop off German Carrion [facility] Start: 11-15-2022 End: 11-16-2022 ambulatory RODRIGO LUZ [facility] Start: 10-31-2022 End: 11-01-2022 ambulatory Yakelin Manning Jack Facility:[facility] Start: 10-31-2022 End: 10-31-2022 Lab Drop off Yakelin Manning Jack [facility] Start: 10-20-2022 ambulatory German Carrion Facility:[facility] Start: 10-20-2022 End: 10-21-2022 ambulatory German Carrion Facility:[facility] Start: 09-08-2022 ambulatory KEESHA Rodriguez Facili ty: Start: 08-22-2022 ambulatory NARENDRANATH LAKSHMIPATHY . Facility: Start: 07-29-2022 End: 07-30-[address] RODRIGO LUZ . Facility:[facility] Start: 07-25-2022 End: 07-26-2022 ambulatory NARENDRANATH LAKSHMIPATHY . 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 Facility:[facility] Start: 05-23-2022 End: 05-24-2022 ambulatory TRA HOLLANDMUSCOTAH Facility:[facility] Start: 04-10-2022 End: 05-30-2022 ambulatory FRACISCO ARCHULETA . Facility:[facility] Start: 03-22-2022 ambulatory RODRIGO LUZ [facility] Start: 03-21-2022 End: 03-22-2022 ambulatory ELEN CHEN Facility:[facility] Start: 03-08-2022 End: 03-08-[address] RODRIGO LUZ . Facility:[facility] Start: 02-27-2022 End: 03-08-[address] RODRIGO LUZ . Facility:[facility] Start: 02-16-2022 End: 02-17-[address] PAXTON SOLANO . 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 Facility: Start: 11-17-2021 End: 11-18-2021 ambulatory TRA VALE Facility: Start: 10-27-2021 End: 10-28-[address] RODRIGO LUZ . Facility:[facility] Start: 10-23-2021 End: 10-23-[address] RODRIGO LUZ . Facility:[facility] Start: 09-20-2021 End: 09-20-[address] PAXTON SOLANO . Facility:[facility] Start: 09-16-2021 End: 09-17-2021 ambulatory TRA VALE Facility: Start: 07-12-2021 ambulatory TRA VALE [facility] Start: 07-12-2021 End: 07-12-2021 Office outpatient visit 15 minutes Tra Vale DO Work Phone: [facility] Rheumatology Comment on above: Psoriatic arthropath y of distal interphalangeal (DIP) joint (Primary Dx); Psoriatic arthritis; Psoriatic spondylitis; Psoriasis; Plaque psoriasis; Anemia, unspecified type; Methotrexate, fci, current use; Long-term current use of high risk medication other than anticoagulant; MCFP current use of 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; 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); Methotrexate, watermelon inspector, current use; Long-term current use of high [...] type; Plaque psoriasis Start: 07-05-2020 End: 07-06-2020 [facility] PILI ALLAN Facility:[facility] Start: 01-13-2020 End: 01-13-2020 Office outpatient visit 25 minutes Tra Vale Work Phone: [employer] Comment on above: Psoriatic arthritis (Primary Dx); Psoriasis; Plaque psoriasis; Methotrexate, fci, current use; Long-term current use of high risk medication other than anticoagulant; MCFP 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); History [...] End: 09-09-2019 Office outpatient visit 25 minutes Tra Vale Work Phone: [employer] Comment on above: Psoriatic arthritis (Primary Dx); 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; Psoriatic spondylitis; Psoriasis; SAPHO syndrome; 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 arthritis; 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); Methotrexate, fci, current use; Long-term current use of high [...] visit 25 minutes Tra Vale Work Phone: [employer] Comment on above: Psoriatic arthritis (Primary Dx); 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; Psoriatic spondylitis; SAPHO syndrome; Anemia, unspecified type; 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 arthritis; 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); MCFP current use of 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; Long-term current use of high risk medication other than anticoagulant; Methotrexate, fci, current use; Vitamin D deficiency; DDD (degenerative [...] End: 01-10-2019 Patient encounter procedure Other Other [facility] Start: 01-10-2019 End: 01-10-2019 Telephone encounter Seda Bonilla [facility] Rheumatology Comment on above: Insurance ([place] 0.05%) Start: 01-07-2019 End: 01-07-2019 Refill Juuj Green [facility]ology Comment on above: Psoriatic arthritis; Psoriatic spondylitis; Psoriasis; Plaque psoriasis; Anemia, unspecified type; Methotrexate, watermelon inspector, current use; Long-term current use of high risk medication other than anticoagulant; MCFP current use of 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; MCFP 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); History [...] visit 25 minutes Tra Vale Work Phone: [facility] Comment on above: Psoriatic arthritis (Primary Dx); Psoriatic spondylitis; Psoriasis; Plaque psoriasis; Anemia, unspecified type; Methotrexate, fci, current use; Long-term current use of high risk medication other than anticoagulant; MCFP current use of 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; 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 (NSAID); History [...] Orders Tra Vale Work Phone: [facility] Start: 11-06-2018 End: 11-06-2018 Outside Orders Tra Vale Work Phone: [facility] Start: 11-05-2018 End: 11-05-2018 Outside Orders Tra Hollandkaya Work Phone: [facility] Start: 09-04-2018 End: 09-04-2018 Telephone encounter Juju [facility] Rheumatology Comment on above: Results Start: 09-03-2018 End: 09-03-2018 [facility] Comment on above: Vitamin D deficiency (Primary Dx) Start: 09-03-2018 End: 09-03-2018 Office outpatient visit 25 minutes Tra Vale [facility] Comment on above: Psoriatic arthritis (Primary Dx); 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; Psoriatic spondylitis; 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 arthritis; 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 (NSAID); 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; Long-term current use of high risk medication other than anticoagulant; Methotrexate, fci, current use; Noncompliance; Patient non adherence; Vitamin [...] End: 07-01-2018 Patient encounter procedure Other Other [facility] Start: 05-29-2018 End: 05-29-2018 Patient encounter procedure Juju [facility] Rheumatology Comment on above: Psoriatic arthritis; 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; Psoriatic spondylitis; SAPHO syndrome; Psoriasis; Anemia, unspecified type; MCFP 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 (NSAID); MCFP current use of 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; Methotrexate, watermelon inspector, current use; Long-term current use of high [...] End: 05-28-2018 Patient encounter procedure Other Other [facility] Start: 05-24-2018 End: 05-24-2018 Patient encounter procedure Other Other [facility] Start: 05-15-2018 End: 05-15-2018 Patient encounter procedure Tra Vale Work Phone: [facility] Start: 05-07-2018 End: 05-07-2018 Telephone encounter Kamran Orlando Work Phone: 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 (NSAID); 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; Methotrexate, watermelon inspector, current use; Long-term current use of high risk medication other than anticoagulant; Vitamin D deficiency Start: 04-19-2018 End: 04-19-2018 Telephone encounter [facility] Comment on above: Insurance ([employer] ) Start: 04-17-2018 End: 04-17-2018 Telephone encounter Tra Vale Work Phone: [facility] Comment on above: Medication Managemen t Start: 04-16-2018 End: 04-16-2018 Telephone encounter [facility] Comment on above: Insurance ([employer] ) Start: 04-05-2018 End: 04-05-2018 Patient encounter procedure Tra Hollandneliaelissa Work Phone: [facility] Start: 04-04-2018 End: 04-04-2018 Patient encounter procedure Tra Hollandneliaelissa Work Phone: [facility] Start: 04-03-2018 End: 04-03-2018 Patient encounter procedure Juju Green [facility] Comment on above: Results Start: 04-01-2018 End: 04-01-2018 Patient encounter procedure Tra Hollandkaya Work Phone: [facility] Comment on above: Vitamin D deficiency (Primary Dx) Start: 03-29-2018 Patient encounter status Tra Vale Jr., DO Work Phone: [facility] Start: 03-29-2018 End: 03-29-2018 Office outpatient new 60 minutes Tra Vasquez Kavin Work Phone: [facility] Rheumatology Comment on above: Psoriatic arthritis (Primary Dx); 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; Psoriatic spondylitis; SAPHO syndrome; Psoriasis; Fatigue, unspecified type; 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 arthritis; 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 (NSAID); 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; Methotrexate, watermelon inspector, current use; Long-term current use of high [...] Start: 03-29-2018 End: 03-29-2018 LABS (OUTSIDE) Tra Vale Work Phone: Append[facility] Yakelin Santiago Comment on above: 2000 Coronary artery bypa ss graft operation planned Yakelin Santiago Comment on above: 2003 Inguinal hernia (disorder) J catie Santiago Comment on above: repair 2005 Plan of Treatment Date Care Activity Detail Author Start: 11-14-2029 Tetanus vaccination TETANUS [employer] [facility] Start: 10-01-2023 ambulatory Ambulatory Facility:[facility] [place] Start: 08-16-2023 ambulatory Ambulatory Facility:[facility] Start: 07-31-2023 End: 07-31-2023 Patient encounter procedure 07/31/2023 9:00 AM EDT Office Visit [facility] [address] [place] [id number] Kavin Kumar, Tra Vasquez, [address] [place] [id number] [facility] Start: 07-11-2023 End: 01-24-2024 VITAMIN D (25-HYDROXY,TOTAL) VITAMIN D (25-HYDROXY,TOTAL) Lab Routine Psoriatic arthritis 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 Plaque psoriasis Psoriasis SAPHO syndrome History of kidney stones 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 arthritis Long-term current use of high risk medication other than anticoagulant Methotrexate, watermelon inspector, current use Vitamin D deficiency DDD (degenerative [...] both knees Expected: 07/11/2023 (Approximate), Expires: 01/24/2024 [facility] [employer] [facility] Comment on above: Expected: 07/11/2023 (Approximate), Expi res: 01/24/2024 Start: 07-11-2023 End: 01-24-2024 VITAMIN D, (1,25 DIHYDROXY) VITAMIN D, (1,25 DIHYDROXY) Lab Routine Psoriatic arthritis 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 Plaque psoriasis Psoriasis SAPHO syndrome History of kidney stones 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 arthritis Long-term current use of high risk medication other than anticoagulant Methotrexate, watermelon inspector, current use Vitamin D deficiency DDD (degenerative [...] both knees Expected: 07/11/2023 (Approximate), Expires: 01/24/2024 [facility] [employer] [facility] Comment on above: Expected: 07/11/2023 (Approximate), Expi res: 01/24/2024 Start: 01-23-2023 End: 01-23-2023 Patient encounter procedure 01/23/2023 Office Visit Rheumatology Kavin Kumar, Tra Vasquez, DO [address] [place] [address] [facility] Rhe[facility] Start: 01-19-2023 End: 07-26-2023 VITAMIN D (25-HYDROXY,TOTAL) VITAMIN D (25-HYDROXY,TOTAL) Lab Routine Psoriatic arthritis 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 Macrocytic anemia Plaque psoriasis Psoriasis SAPHO syndrome History of kidney stones 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 arthritis MCFP 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 (NSAID) Long-term current use of high risk medication other than anticoagulant Methotrexate, watermelon inspector, current use Abnormal renal function test Vitamin [...] both knees Expected: 01/19/2023 (Approximate), Expires: 07/26/2023 [facility] [employer] [facility] Comment on above: Expected: 01/19/2023 (Approximate), Expi res: 07/26/2023 Start: 01-19-2023 End: 07-26-2023 VITAMIN D, (1,25 DIHYDROXY) VITAMIN D, (1,25 DIHYDROXY) Lab Routine Psoriatic arthritis 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 Macrocytic anemia Plaque psoriasis Psoriasis SAPHO syndrome History of kidney stones 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 arthritis MCFP current use of non-steroidal anti-inflammatories (NSAID) Long-term current use of high risk medication other than anticoagulant Methotrexate, watermelon inspector, current use Abnormal renal function test Vitamin [...] both knees Expected: 01/19/2023 (Approximate), Expires: 07/26/2023 [facility] Comment on above: Expected: 01/19/2023 (Approximate), Expi res: 07/26/2023 Start: 12-01-2022 COVID-19 VACCINE ( season) COVID-19 VACCINE ( season) [facility] Start: 12-01-2022 Influenza vaccination [facility] Start: 08-10-2022 End: 07-26-2023 Urea nitrogen [Mass/volume] in Serum or Plasma BUN Lab Routine Psoriatic arthritis 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 Macrocytic anemia Plaque psoriasis Psoriasis SAPHO syndrome History of kidney stones 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 arthritis MCFP current use of non-steroidal anti-inflammatories (NSAID) Long-term current use of high risk medication other than anticoagulant Methotrexate, watermelon inspector, current use Abnormal renal function test Vitamin [...] both knees Expected: 08/10/2022 (Approximate), Expires: 07/26/2023 [facility] Comment on above: Expected: 08/10/2022 (Approximate), Expi res: 07/26/2023 Start: 08-10-2022 End: 07-26-2023 Urinalysis dipstick W Reflex Microscopic panel - Urine URINE MICROSCOPIC Fluids Routine Psoriatic arthritis 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 Macrocytic anemia Plaque psoriasis Psoriasis SAPHO syndrome History of kidney stones 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 arthritis 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-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 (NSAID) Long-term current use of high risk medication other than anticoagulant Methotrexate, fci, current use Abnormal renal function test Vitamin [...] both knees Expected: 08/10/2022 (Approximate), Expires: 07/26/2023 [employer] Comment on above: Expected: 08/10/2022 (Approximate), Expi res: 07/26/2023 Start: 08-10-2022 End: 07-26-2023 Urinalysis, reagent strip without microscopy URINALYSIS, MACRO Fluids Routine Psoriatic arthritis 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 Macrocytic anemia Plaque psoriasis Psoriasis SAPHO syndrome History of kidney stones 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 arthritis 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-inflammatories (NSAID) Long-term current use of high risk medication other than anticoagulant Methotrexate, fci, current use Abnormal renal function test Vitamin [...] both knees Expected: 08/10/2022 (Approximate), Expires: 07/26/2023 [employer] Comment on above: Expected: 08/10/2022 (Approximate), Expi res: 07/26/2023 Start: 07-25-2022 End: 07-25-2022 Patient encounter procedure 07/25/2022 Office Visit Rheumatology Tra Vale Jr., DO [address] [facility] [place] [id number] [facility] Rheumatology Start: 01-10-2022 End: 01-10-2023 VITAMIN D, (1,25 DIHYDROXY) [facility] Comment on above: Expected: 01/10/2022 (Approximate), Expi res: 01/10/2023 Start: 01-10-2022 End: 01-10-2022 Patient encounter procedure 01/10/2022 Office Visit Rheumatology Tra Vale Jr., DO [address] [facility] [place] [id number] [facility] Rheumatology Start: 12-01-2021 Influenza vaccination [facility] Start: 07-12-2021 End: 07-12-2022 VITAMIN D, (1,25 DIHYDROXY) [facility] Comment on above: Expected: 07/12/2021 (Approximate), Expi res: 07/12/2022 Start: 01-11-2021 End: 01-11-2021 Office Visit 01/11/2021 Office Visit Rheumatology Tra Vale Jr., DO [address] [facility] [place] [phone] [facility] Start: 12-01-2020 Influenza vaccination INFLUENZA VACCINE (Season Ended) [facility] Start: 11-02-2020 COVID-19 VACCINE (3 - Booster for Pfizer series) COVID-19 VACCINE (3 - Booster for Pfizer series) [facility] Start: 07-13-2020 End: 07-13-2020 Office Visit 07/13/2020 Office Visit Rheumatology Tra Vale Jr., DO [address] [facility] [place] [address] [facility] Start: 02-11-2020 End: 09-08-2020 VITAMIN D (25-HYDROXY,TOTAL) VITAMIN D (25-HYDROXY,TOTAL) Lab Routine Psoriatic arthritis 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 Psoriasis SAPHO syndrome 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 arthritis 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-inflammatories (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, fci, current use Long-term current use of high [...] Plaque psoriasis Expected: 02/11/2020 (Approximate), Expires: 09/08/2020 [employer] Comment on above: Expected: 02/11/2020 (Approximate), Expi res: 09/08/2020 Start: 02-11-2020 End: 09-08-2020 VITAMIN D, (1,25 DIHYDROXY) VITAMIN D, (1,25 DIHYDROXY) Lab Routine Psoriatic arthritis 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 Psoriasis SAPHO syndrome 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 arthritis MCFP current use of non-steroidal anti-inflammatories (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, fci, current use Long-term current use of high [...] Plaque psoriasis Expected: 02/11/2020 (Approximate), Expires: 09/08/2020 [employer] Comment on above: Expected: 02/11/2020 (Approximate), Expi res: 09/08/2020 Start: 01-13-2020 End: 01-13-2020 Office Visit 01/13/2020 Office Visit Rheumatology Kavin Kumar, Tra Vasquez, DO [address] [place] [phone] [facility] Start: 12-02-2019 Influenza vaccination [employer] Start: 09-09-2019 End: 09-09-2019 Office Visit 09/09/2019 Office Visit Rheumatology Kavin Kumar, Tra Vasquez DO [address] [place] [phone] [facility] Start: 09-04-2019 End: 05-06-2020 VITAMIN D (25-HYDROXY,TOTAL) VITAMIN D (25-HYDROXY,TOTAL) Lab Routine Psoriatic arthritis 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 Anemia, unspecified type 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 arthritis 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-inflammatories (NSAID) 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 Long-term current use of high risk medication other than anticoagulant Methotrexate, fci, current use Vitamin D deficiency DDD (degenerative [...] psoriasis Psoriasis Expected: 09/04/2019 (Approximate), Expires: 05/06/2020 [employer] Comment on above: Expected: 09/04/2019 (Approximate), Expi res: 05/06/2020 Start: 09-04-2019 End: 05-06-2020 VITAMIN D, (1,25 DIHYDROXY) VITAMIN D, (1,25 DIHYDROXY) Lab Routine Psoriatic arthritis 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 Anemia, unspecified type 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 arthritis MCFP current use of non-steroidal anti-inflammatories (NSAID) 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 Long-term current use of high risk medication other than anticoagulant Methotrexate, watermelon inspector, current use Vitamin D deficiency DDD (degenerative [...] psoriasis Psoriasis Expected: 09/04/2019 (Approximate), Expires: 05/06/2020 [employer] Comment on above: Expected: 09/04/2019 (Approximate), Expi res: 05/06/2020 Start: 05-06-2019 End: 05-06-2019 Office Visit 05/06/2019 Office Visit Rheumatology Kavin Kumar, Tra Vasquez, DO [address] [place] [address] [facility] Start: 03-29-2019 End: 03-29-2019 JOVAN MULTIPLEX SCRN WITH REFLEX JOVAN MULTIPLEX SCRN WITH REFLEX Routine Psoriatic arthritis 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 Psoriasis Fatigue, unspecified type 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 arthritis 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-inflammatories (NSAID) MCFP current use of 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, fci, current use Long-term current use of high risk medication other than anticoagulant Lumbosacral spondylosis without myelopathy Disorder of bone and cartilage Plaque psoriasis Cervicalgia Dorsalgia Chronic pain of both shoulders Bilateral elbow joint pain Bilateral wrist pain Bilateral hand pain Chronic pain of both knees Expected: 03/29/2019 (Approximate), Expires: 03/29/2019 [facility] Work Phone: Comment on above: Expected: 03/29/2019 (Approximate), Expi res: 03/29/2019 Start: 03-29-2019 End: 03-29-2019 ANCA INIT SCRN (ANCA, PR3AB, MPO) ANCA INIT SCRN (ANCA, PR3AB, MPO) Routine Psoriatic arthritis 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 Psoriasis Fatigue, unspecified type 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 arthritis MCFP current use of non-steroidal anti-inflammatories (NSAID) 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, watermelon inspector, current use Long-term current use of high risk medication other than anticoagulant Lumbosacral spondylosis without myelopathy Disorder of bone and cartilage Plaque psoriasis Cervicalgia Dorsalgia Chronic pain of both shoulders Bilateral elbow joint pain Bilateral wrist pain Bilateral hand pain Chronic pain of both knees Expected: 03/29/2019 (Approximate), Expires: 03/29/2019 [facility] Work Phone: Comment on above: Expected: 03/29/2019 (Approximate), Expi res: 03/29/2019 Start: 03-29-2019 End: 03-29-2019 ANGIOTENSIN CONVERTING ENZYME ANGIOTENSIN CONVERTING ENZYME Routine Psoriatic arthritis 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 Psoriasis Fatigue, unspecified type 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 arthritis 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-inflammatories (NSAID) MCFP current use of 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, watermelon inspector, current use Long-term current use of high risk medication other than anticoagulant Lumbosacral spondylosis without myelopathy Disorder of bone and cartilage Plaque psoriasis Cervicalgia Dorsalgia Chronic pain of both shoulders Bilateral elbow joint pain Bilateral wrist pain Bilateral hand pain Chronic pain of both knees Expected: 03/29/2019 (Approximate), Expires: 03/29/2019 [facility] Work Phone: Comment on above: Expected: 03/29/2019 (Approximate), Expi res: 03/29/2019 Start: 03-29-2019 End: 03-29-2019 CBC,PLATELETS CBC,PLATELETS Routine Psoria tic arthritis 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 Psoriasis Fatigue, unspecified type 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 arthritis MCFP current use of non-steroidal anti-inflammatories (NSAID) MCFP current use of 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, fci, current use Long-term current use of high risk medication other than anticoagulant Lumbosacral spondylosis without myelopathy Disorder of bone and cartilage Plaque psoriasis Cervicalgia Dorsalgia Chronic pain of both shoulders Bilateral elbow joint pain Bilateral wrist pain Bilateral hand pain Chronic pain of both knees Expected: 03/29/2019 (Approximate), Expires: 03/29/2019 [facility] Work Phone: Comment on above: Expected: 03/29/2019 (Approximate), Expi res: 03/29/2019 Start: 03-29-2019 End: 03-29-2019 CK CK Routine Psoriatic arthrit is 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 Psoriasis Fatigue, unspecified type 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 arthritis 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-inflammatories (NSAID) 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, watermelon inspector, current use Long-term current use of high risk medication other than anticoagulant Lumbosacral spondylosis without myelopathy Disorder of bone and cartilage Plaque psoriasis Cervicalgia Dorsalgia Chronic pain of both shoulders Bilateral elbow joint pain Bilateral wrist pain Bilateral hand pain Chronic pain of both knees Expected: 03/29/2019 (Approximate), Expires: 03/29/2019 [facility] Work Phone: Comment on above: Expected: 03/29/2019 (Approximate), Expi res: 03/29/2019 Start: 03-29-2019 End: 03-29-2019 Comprehensive metabolic 2000 panel - Serum or Plasma COMPREHENSIVE METABOLIC PANEL Routine Psoriatic arthritis 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 Psoriasis Fatigue, unspecified type 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 arthritis MCFP current use of non-steroidal anti-inflammatories (NSAID) 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, fci, current use Long-term current use of high risk medication other than anticoagulant Lumbosacral spondylosis without myelopathy Disorder of bone and cartilage Plaque psoriasis Cervicalgia Dorsalgia Chronic pain of both shoulders Bilateral elbow joint pain Bilateral wrist pain Bilateral hand pain Chronic pain of both knees Expected: 03/29/2019 (Approximate), Expires: 03/29/2019 [facility] Work Phone: Comment on above: Expected: 03/29/2019 (Approximate), Expi res: 03/29/2019 Start: 03-29-2019 End: 03-29-2019 CRP mass conc C REACTIVE PROTEIN Routine Psoriatic arthritis 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 Psoriasis Fatigue, unspecified type 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 arthritis 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-inflammatories (NSAID) MCFP current use of 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, fci, current use Long-term current use of high risk medication other than anticoagulant Lumbosacral spondylosis without myelopathy Disorder of bone and cartilage Plaque psoriasis Cervicalgia Dorsalgia Chronic pain of both shoulders Bilateral elbow joint pain Bilateral wrist pain Bilateral hand pain Chronic pain of both knees Expected: 03/29/2019 (Approximate), Expires: 03/29/2019 [facility] Work Phone: Comment on above: Expected: 03/29/2019 (Approximate), Expi res: 03/29/2019 Start: 03-29-2019 End: 03-29-2019 CYCLIC CITRULLINATE PEPTIDE AB CYCLIC CITRULLINATE PEPTIDE AB Routine Psoriatic arthritis 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 Psoriasis Fatigue, unspecified type 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 arthritis MCFP current use of non-steroidal anti-inflammatories (NSAID) 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, watermelon inspector, current use Long-term current use of high risk medication other than anticoagulant Lumbosacral spondylosis without myelopathy Disorder of bone and cartilage Plaque psoriasis Cervicalgia Dorsalgia Chronic pain of both shoulders Bilateral elbow joint pain Bilateral wrist pain Bilateral hand pain Chronic pain of both knees Expected: 03/29/2019 (Approximate), Expires: 03/29/2019 [facility] Work Phone: Comment on above: Expected: 03/29/2019 (Approximate), Expi res: 03/29/2019 Start: 03-29-2019 End: 03-29-2019 HEPATITIS A, B, C HEPATITIS A, B, C Routine Psoriatic arthritis 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 Psoriasis Fatigue, unspecified type 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 arthritis MCFP current use of non-steroidal anti-inflammatories (NSAID) 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, fci, current use Long-term current use of high risk medication other than anticoagulant Lumbosacral spondylosis without myelopathy Disorder of bone and cartilage Plaque psoriasis Cervicalgia Dorsalgia Chronic pain of both shoulders Bilateral elbow joint pain Bilateral wrist pain Bilateral hand pain Chronic pain of both knees Expected: 03/29/2019 (Approximate), Expires: 03/29/2019 [facility] Work Phone: Comment on above: Expected: 03/29/2019 (Approximate), Expi res: 03/29/2019 Start: 03-29-2019 End: 03-29-2019 HLA-B27 HLA-B27 Routine Psoriatic arthritis 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 Psoriasis Fatigue, unspecified type 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 arthritis MCFP current use of non-steroidal anti-inflammatories (NSAID) MCFP current use of 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, fci, current use Long-term current use of high risk medication other than anticoagulant Lumbosacral spondylosis without myelopathy Disorder of bone and cartilage Plaque psoriasis Cervicalgia Dorsalgia Chronic pain of both shoulders Bilateral elbow joint pain Bilateral wrist pain Bilateral hand pain Chronic pain of both knees Expected: 03/29/2019 (Approximate), Expires: 03/29/2019 [facility] Work Phone: Comment on above: Expected: 03/29/2019 (Approximate), Expi res: 03/29/2019 Start: 03-29-2019 End: 03-29-2019 PATRICK AND PE, SERUM PATRICK AND PE, SERUM Routine Psoriatic arthritis 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 Psoriasis Fatigue, unspecified type 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 arthritis 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-inflammatories (NSAID) MCFP current use of 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, fci, current use Long-term current use of high risk medication other than anticoagulant Lumbosacral spondylosis without myelopathy Disorder of bone and cartilage Plaque psoriasis Cervicalgia Dorsalgia Chronic pain of both shoulders Bilateral elbow joint pain Bilateral wrist pain Bilateral hand pain Chronic pain of both knees Expected: 03/29/2019 (Approximate), Expires: 03/29/2019 [facility] Work Phone: Comment on above: Expected: 03/29/2019 (Approximate), Expi res: 03/29/2019 Start: 03-29-2019 End: 03-29-2019 MAGNESIUM MAGNESIUM Routine Psoriatic arthritis 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 Psoriasis Fatigue, unspecified type 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 arthritis MCFP current use of non-steroidal anti-inflammatories (NSAID) MCFP current use of 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, fci, current use Long-term current use of high risk medication other than anticoagulant Lumbosacral spondylosis without myelopathy Disorder of bone and cartilage Plaque psoriasis Cervicalgia Dorsalgia Chronic pain of both shoulders Bilateral elbow joint pain Bilateral wrist pain Bilateral hand pain Chronic pain of both knees Expected: 03/29/2019 (Approximate), Expires: 03/29/2019 [facility] Work Phone: Comment on above: Expected: 03/29/2019 (Approximate), Expi res: 03/29/2019 Start: 03-29-2019 End: 03-29-2019 RHEUMATOID FACTOR RHEUMATOID FACTOR Routine Psoriatic arthritis 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 Psoriasis Fatigue, unspecified type 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 arthritis MCFP current use of non-steroidal anti-inflammatories (NSAID) 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, watermelon inspector, current use Long-term current use of high risk medication other than anticoagulant Lumbosacral spondylosis without myelopathy Disorder of bone and cartilage Plaque psoriasis Cervicalgia Dorsalgia Chronic pain of both shoulders Bilateral elbow joint pain Bilateral wrist pain Bilateral hand pain Chronic pain of both knees Expected: 03/29/2019 (Approximate), Expires: 03/29/2019 [facility] Work Phone: Comment on above: Expected: 03/29/2019 (Approximate), Expi res: 03/29/2019 Start: 03-29-2019 End: 03-29-2019 SEDIMENTATION RATE, AUTOMATED SEDIMENTATION RATE, AUTOMATED Routine Psoriatic arthritis 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 Psoriasis Fatigue, unspecified type 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 arthritis 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-inflammatories (NSAID) MCFP current use of 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, fci, current use Long-term current use of high risk medication other than anticoagulant Lumbosacral spondylosis without myelopathy Disorder of bone and cartilage Plaque psoriasis Cervicalgia Dorsalgia Chronic pain of both shoulders Bilateral elbow joint pain Bilateral wrist pain Bilateral hand pain Chronic pain of both knees Expected: 03/29/2019 (Approximate), Expires: 03/29/2019 [facility] Work Phone: Comment on above: Expected: 03/29/2019 (Approximate), Expi res: 03/29/2019 Start: 03-29-2019 End: 03-29-2019 T-TRANSGLUTAMINASE IGA AB T-TRANSGLUTAMINASE IGA AB Routine Psoriatic arthritis 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 Psoriasis Fatigue, unspecified type 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 arthritis MCFP current use of non-steroidal anti-inflammatories (NSAID) 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, fci, current use Long-term current use of high risk medication other than anticoagulant Lumbosacral spondylosis without myelopathy Disorder of bone and cartilage Plaque psoriasis Cervicalgia Dorsalgia Chronic pain of both shoulders Bilateral elbow joint pain Bilateral wrist pain Bilateral hand pain Chronic pain of both knees Expected: 03/29/2019 (Approximate), Expires: 03/29/2019 [facility] Work Phone: Comment on above: Expected: 03/29/2019 (Approximate), Expi res: 03/29/2019 Start: 03-29-2019 End: 03-29-2019 TESTOSTERONE TESTOSTERONE Routine Psoriat ic arthritis 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 Psoriasis Fatigue, unspecified type 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 arthritis 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-inflammatories (NSAID) MCFP current use of 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, watermelon inspector, current use Long-term current use of high risk medication other than anticoagulant Lumbosacral spondylosis without myelopathy Disorder of bone and cartilage Plaque psoriasis Cervicalgia Dorsalgia Chronic pain of both shoulders Bilateral elbow joint pain Bilateral wrist pain Bilateral hand pain Chronic pain of both knees Expected: 03/29/2019 (Approximate), Expires: 03/29/2019 [facility] Work Phone: Comment on above: Expected: 03/29/2019 (Approximate), Expi res: 03/29/2019 Start: 03-29-2019 End: 03-29-2019 Thyrotropin Qn TSH Routine Psoriatic arthri tis 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 Psoriasis Fatigue, unspecified type 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 arthritis MCFP current use of non-steroidal anti-inflammatories (NSAID) 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, watermelon inspector, current use Long-term current use of high risk medication other than anticoagulant Lumbosacral spondylosis without myelopathy Disorder of bone and cartilage Plaque psoriasis Cervicalgia Dorsalgia Chronic pain of both shoulders Bilateral elbow joint pain Bilateral wrist pain Bilateral hand pain Chronic pain of both knees Expected: 03/29/2019 (Approximate), Expires: 03/29/2019 [facility] Work Phone: Comment on above: Expected: 03/29/2019 (Approximate), Expi res: 03/29/2019 Start: 03-29-2019 End: 03-29-2019 Urate mass conc URIC ACID Routine Psoriatic arthritis 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 Psoriasis Fatigue, unspecified type 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 arthritis 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-inflammatories (NSAID) [facility]FP current use of 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, watermelon inspector, current use Long-term current use of high risk medication other than anticoagulant Lumbosacral spondylosis without myelopathy Disorder of bone and cartilage Plaque psoriasis Cervicalgia Dorsalgia Chronic pain of both shoulders Bilateral elbow joint pain Bilateral wrist pain Bilateral hand pain Chronic pain of both knees Expected: 03/29/2019 (Approximate), Expires: 03/29/2019 [facility] Work Phone: Comment on above: Expected: 03/29/2019 (Approximate), Expi res: 03/29/2019 Start: 03-29-2019 End: 03-29-2019 VITAMIN D (25-HYDROXY,TOTAL) VITAMIN D (25-HYDROXY,TOTAL) Routine Psoriatic arthritis 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 Psoriasis Fatigue, unspecified type 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 arthritis 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-inflammatories (NSAID) MCFP current use of 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, watermelon inspector, current use Long-term current use of high risk medication other than anticoagulant Lumbosacral spondylosis without myelopathy Disorder of bone and cartilage Plaque psoriasis Cervicalgia Dorsalgia Chronic pain of both shoulders Bilateral elbow joint pain Bilateral wrist pain Bilateral hand pain Chronic pain of both knees Expected: 03/29/2019 (Approximate), Expires: 03/29/2019 [facility] Work Phone: Comment on above: Expected: 03/29/2019 (Approximate), Expi res: 03/29/2019 Start: 03-29-2019 End: 03-29-2019 VITAMIN D, (1,25 DIHYDROXY) VITAMIN D, (1,25 DIHYDROXY) Routine Psoriatic arthritis 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 Psoriasis Fatigue, unspecified type 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 arthritis MCFP current use of non-steroidal anti-inflammatories (NSAID) 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, fci, current use Long-term current use of high risk medication other than anticoagulant Lumbosacral spondylosis without myelopathy Disorder of bone and cartilage Plaque psoriasis Cervicalgia Dorsalgia Chronic pain of both shoulders Bilateral elbow joint pain Bilateral wrist pain Bilateral hand pain Chronic pain of both knees Expected: 03/29/2019 (Approximate), Expires: 03/29/2019 [facility] Work Phone: Comment on above: Expected: 03/29/2019 (Approximate), Expi res: 03/29/2019 Start: 01-07-2019 End: 01-07-2019 [facility] Start: 12-04-2018 End: 09-04-2019 VITAMIN D (25-HYDROXY,TOTAL) VITAMIN D (25-HYDROXY,TOTAL) Lab Routine Vitamin D deficiency Expected: 12/04/2018 (Approximate), Expires: 09/04/2019 [employer] Comment on above: Expected: 12/04/2018 (Approximate), Expi res: 09/04/2019 Start: 12-04-2018 End: 09-04-2019 VITAMIN D, (1,25 DIHYDROXY) VITAMIN D, (1,25 DIHYDROXY) Lab Routine Vitamin D deficiency Expected: 12/04/2018 (Approximate), Expires: 09/04/2019 [employer] Comment on above: Expected: 12/04/2018 (Approximate), Expi res: 09/04/2019 Start: 12-01-2018 Influenza vaccination [employer] Start: 09-06-2018 End: 09-06-2018 Ambulatory 09/06/2018 Office Visit Rheumatology Kavin Kumar, Tra Vasquez, DO [address] [place] [address] [phone] [facility] Rheumatology Start: 09-03-2018 End: 09-04-2019 VITAMIN D (25-HYDROXY,TOTAL) [employer] Comment on above: Expected: 09/03/2018 (Approximate), Expi res: 09/04/2019 Expected: 09/03/2018 , Expires: 09/03/2019 Start: 09-03-2018 End: 09-04-2019 VITAMIN D, (1,25 DIHYDROXY) [employer] Comment on above: Expected: 09/03/2018 (Approximate), Expi res: 09/04/2019 Expected: 09/03/2018 , Expires: 09/03/2019 Start: 06-30-2018 End: 04-01-2019 VITAMIN D (25-HYDROXY,TOTAL) VITAMIN D (25-HYDROXY,TOTAL) Routine Vitamin D deficiency Expected: 06/30/2018 (Approximate), Expires: 04/01/2019 [facility] Work Phone: Comment on above: Expected: 06/30/2018 (Approximate), Expi res: 04/01/2019 Start: 06-30-2018 End: 04-01-2019 VITAMIN D, (1,25 DIHYDROXY) VITAMIN D, (1,25 DIHYDROXY) Routine Vitamin D deficiency Expected: 06/30/2018 (Approximate), Expires: 04/01/2019 [facility] Work Phone: Comment on above: Expected: 06/30/2018 (Approximate), Expi res: 04/01/2019 Start: 05-09-2018 End: 05-09-2018 Ambulatory 05/09/2018 Office Visit Rheumatology Tra Vale Jr., DO [address] [facility] [place] [address] [phone] [facility] Rheumatology Start: 05-03-2018 End: 05-03-2018 Ambulatory 05/03/2018 Office Visit Rheumatology Tra Vale Jr., [address] [facility] [place] [address] [place] [address] [phone] [facility] Rhe[facility] Start: 03-29-2018 End: 03-29-2019 Diagnostic radiography of lumbar spine XR SPINE LUMBOSACRAL 5 VIEWS Routine Psoriatic arthritis 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 Psoriasis Fatigue, unspecified type 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 arthritis [facility] current use of non-steroidal anti-inflammatories (NSAID) 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, watermelon inspector, current use Long-term current use of high risk medication other than anticoagulant Lumbosacral spondylosis without myelopathy Disorder of bone and cartilage Plaque psoriasis Cervicalgia Dorsalgia Chronic pain of both shoulders Bilateral elbow joint pain Bilateral wrist pain Bilateral hand pain Chronic pain of both knees Expected: 03/29/2018, Expires: 03/29/2019 [facility] Work Phone: Comment on above: Expected: 03/29/2018, Expires: 9 Start: 03-29-2018 End: 03-29-2019 Diagnostic radiography of sacroiliac joints XR SACROILIAC JOINTS MIN 3 VIEWS Routine Psoriatic arthritis 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 Psoriasis Fatigue, unspecified type 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 arthritis 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-inflammatories (NSAID) [facility]FP current use of 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, watermelon inspector, current use Long-term current use of high risk medication other than anticoagulant Lumbosacral spondylosis without myelopathy Disorder of bone and cartilage Plaque psoriasis Cervicalgia Dorsalgia Chronic pain of both shoulders Bilateral elbow joint pain Bilateral wrist pain Bilateral hand pain Chronic pain of both knees Expected: 03/29/2018, Expires: 03/29/2019 [facility] Work Phone: Comment on above: Expected: 03/29/2018, Expires: 9 Start: 03-29-2018 End: 03-29-2019 M TUBERCULOSIS BY QUANTIFERON, BLD M TUBERCULOSIS BY QUANTIFERON, BLD Routine Psoriatic arthritis 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 Psoriasis Fatigue, unspecified type 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 arthritis [facility]FP current use of non-steroidal anti-inflammatories (NSAID) MCFP current use of 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, watermelon inspector, current use Long-term current use of high risk medication other than anticoagulant Lumbosacral spondylosis without myelopathy Disorder of bone and cartilage Plaque psoriasis Cervicalgia Dorsalgia Chronic pain of both shoulders Bilateral elbow joint pain Bilateral wrist pain Bilateral hand pain Chronic pain of both knees Expected: 03/29/2018 (Approximate), Expires: 03/29/2019 [facility] Work Phone: Comment on above: Expected: 03/29/2018 (Approximate), Expi res: 03/29/2019 Start: 03-29-2018 End: 03-29-2019 Radiography of cervical spine XR SPINE CERVICAL WITH OBL AND FLEX/EXT Routine Psoriatic arthritis 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 Psoriasis Fatigue, unspecified type 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 arthritis MCFP current use of non-steroidal anti-inflammatories (NSAID) MCFP current use of 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, fci, current use Long-term current use of high risk medication other than anticoagulant Lumbosacral spondylosis without myelopathy Disorder of bone and cartilage Plaque psoriasis Cervicalgia Dorsalgia Chronic pain of both shoulders Bilateral elbow joint pain Bilateral wrist pain Bilateral hand pain Chronic pain of both knees Expected: 03/29/2018, Expires: 03/29/2019 [facility] Work Phone: Comment on above: Expected: 03/29/2018, Expires: 9 Start: 03-29-2018 End: 03-29-2019 Radiography of hand XR HANDS-RHEUMATOLOGY EVAL O NLY Routine Psoriatic arthritis 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 Psoriasis Fatigue, unspecified type 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 arthritis 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-inflammatories (NSAID) 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, watermelon inspector, current use Long-term current use of high risk medication other than anticoagulant Lumbosacral spondylosis without myelopathy Disorder of bone and cartilage Plaque psoriasis Cervicalgia Dorsalgia Chronic pain of both shoulders Bilateral elbow joint pain Bilateral wrist pain Bilateral hand pain Chronic pain of both knees Expected: 03/29/2018, Expires: 03/29/2019 [facility] Work Phone: Comment on above: Expected: 03/29/2018, Expires: 9 Start: 03-29-2018 End: 03-29-2019 Radiography of shoulder [facility] Work Phone: Comment on above: Expected: 03/29/2018, Expires: 9 Start: 03-29-2018 End: 03-29-2019 Radiography of wrist [facility] Work Phone: Comment on above: Expected: 03/29/2018, Expires: 9 Start: 03-29-2018 End: 03-29-2019 Radiologic examination of knee [facility] Work Phone: Comment on above: Expected: 03/29/2018, Expires: 9 Start: 03-29-2018 End: 03-29-2019 X-ray of both knees XR KNEES BILATERAL STANDING 1 VIEW Routine Psoriatic arthritis 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 Psoriasis Fatigue, unspecified type 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 arthritis [facility]FP current use of non-steroidal anti-inflammatories (NSAID) MCFP current use of 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, fci, current use Long-term current use of high risk medication other than anticoagulant Lumbosacral spondylosis without myelopathy Disorder of bone and cartilage Plaque psoriasis Cervicalgia Dorsalgia Chronic pain of both shoulders Bilateral elbow joint pain Bilateral wrist pain Bilateral hand pain Chronic pain of both knees Expected: 03/29/2018, Expires: 03/29/2019 [facility] Work Phone: Comment on above: Expected: 03/29/2018, Expires: 9 Start: 12-01-2017 Influenza vaccination INFLUENZA VACCINE (#1) [facility] Work Phone: Start: 2016 Colonoscopy [facility] Work Phone: Start: 2016 Prostate specific antigen measurement PROSTATE CANCER SCREENING DISCUSSION [facility] Start: 2016 Protein mass conc COLON CANCER SCREENING DISCUSSION [facility] Work Phone: Start: 2016 Zoster vaccine hzv live for subcutaneous use ZOSTER (SHINGLES) VACCINE (1 of 2) [facility] Start: 2011 Colonoscopy COLORECTAL CANCER SCREENING DISCUSSION [facility] Start: 2011 Screening for malignant neoplasm of colon COLORECTAL CANCER SCREENING DISCUSSION [facility] Start: 2006 Fasting lipid profile LIPID SCREENING [facility] Start: 2006 Lipid panel LIPID SCREENING [facility] Start: 1985 Third diphtheria, tetanus and acellular pertussis (DTaP) vaccination TDAP (ADULT) [facility] Start: 1984 Tetanus vaccination TETANUS [facility] Start: 1982 COVID-19 VACCINE (1) COVID-19 VACCINE (1) [facility] Start: 1981 HIV screening HIV SCREENING DISCUSSION [facility] Start: 1979 HIV screening HIV SCREENING DISCUSSION [facility] Work Phone: Start: 1971 COVID-19 VACCINE (1) COVID-19 VACCINE (1) [facility] Start: 1966 COVID-19 VACCINE (#1) COVID-19 VACCINE (#1) [facility] Start: 1966 Finding of potassium level (finding) POTASSIUM [facility] Start: 1966 Hepatitis B vaccination HEP B VACCINE (1 of 3 - 3-dose series) [facility] Start: 1966 Hepatitis C antibody, confirmatory test HEPATITIS C VIRUS SCREENING [facility] Start: 1966 Hepatitis C screening HEPATITIS C VIRUS SCREENING [facility] End: 07-12-2022 Alanine aminotransferase [Enzymatic activity/volume] in Serum or Plasma ALT Lab Routine Psoriatic arthritis Psoriatic spondylitis Psoriasis Plaque psoriasis Anemia, unspecified type Methotrexate, watermelon inspector, current use Long-term current use of high risk medication other than anticoagulant MCFP current use of 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 [facility]FP current use of non-steroidal anti-inflammatories (NSAID) History [...] Occurrences starting 07/12/2021 until 07/12/2022, 1 completed [employer] Comment on above: Every 8 Weeks for 6 Occurrences starting 07/12/2021 until 07/12/2022, 1 completed End: 01-10-2023 Alanine aminotransferase [Enzymatic activity/volume] in Serum or Plasma ALT Lab Routine Psoriatic arthritis 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 Plaque psoriasis Psoriasis SAPHO syndrome 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 arthritis 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-inflammatories (NSAID) Long-term current use of high risk medication other than anticoagulant Methotrexate, watermelon inspector, current use Every 8 Weeks for 6 Occurrences starting 01/10/2022 until 01/10/2023 [employer] Comment on above: Every 8 Weeks for 6 Occurrences starting 01/10/2022 until 01/10/2023 End: 07-26-2023 Alanine aminotransferase [Enzymatic activity/volume] in Serum or Plasma ALT Lab Routine Psoriatic arthritis 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 Macrocytic anemia Plaque psoriasis Psoriasis SAPHO syndrome History of kidney stones History of psoriatic arthritis [facility] current use of non-steroidal anti-inflammatories (NSAID) Long-term current use of high risk medication other than anticoagulant Methotrexate, fci, current use Abnormal renal function test Vitamin [...] for 4 Occurrences starting 07/25/2022 until 07/26/2023 [employer] Comment on above: Every 12 Weeks for 4 Occurrences startin g 07/25/2022 until 07/26/2023 End: 01-24-2024 Alanine aminotransferase [Enzymatic activity/volume] in Serum or Plasma ALT Lab Routine Psoriatic arthritis 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-inflammatories (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, fci, current use Long-term current use of high [...] psoriasis 6 Occurrences starting 10/11/2019 until 09/08/2020 [employer] Comment on above: 6 Occurrences starting 10/11/2019 until 09/08/2020 End: 01-12-2021 ALT [Catalytic activity/Vol] ALT Lab Routine Psoriatic arthritis Psoriasis Plaque psoriasis Methotrexate, watermelon inspector, current use Long-term current use of high risk medication other than anticoagulant MCFP current use of non-steroidal anti-inflammatories (NSAID) History [...] Occurrences starting 01/13/2020 until 01/12/2021, 1 completed [employer] Comment on above: 6 Occurrences starting 01/13/2020 until 01/12/2021, 1 completed End: 01-08-2020 ALT [Catalytic activity/Vol] ALT Lab Routine Psoriatic arthritis Psoriatic spondylitis Psoriasis Plaque psoriasis Anemia, unspecified type Methotrexate, fci, current use Long-term current use of high risk medication other than anticoagulant 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 [facility]FP current use of non-steroidal anti-inflammatories (NSAID) History [...] cervical 6 Occurrences starting 01/04/2019 until 01/08/2020 [employer] Comment on above: 6 Occurrences starting 01/04/2019 until 01/08/2020 End: 07-13-2021 ALT [Catalytic activity/Vol] ALT Lab Routine Psoriatic arthritis 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 Psoriasis SAPHO syndrome History of psoriatic arthritis 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-inflammatories (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, watermelon inspector, current use Long-term current use of high [...] Occurrences starting 09/12/2020 until 07/13/2021, 1 completed [employer] Comment on above: 6 Occurrences starting 09/12/2020 until 07/13/2021, 1 completed End: 05-03-2019 ALT enzyme act/vol ALT Routine Psoriatic arthri tis 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 Psoriasis Anemia, unspecified type 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-inflammatories (NSAID) 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, fci, current use Long-term current use of high [...] psoriasis 6 Occurrences starting 05/30/2018 until 05/03/2019 [facility] Work Phone: Comment on above: 6 Occurrences starting 05/30/2018 until 05/03/2019 End: 09-04-2019 ALT enzyme act/vol ALTLabRoutinePsoriatic arthritis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Psoriatic spondylitisHistory of psoriatic arthritisLong term current use of non-steroidal anti-inflammatories (NSAID)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Long-term current use of high risk medication other than anticoagulantMethotrexate, watermelon inspector, current useNoncompliancePatient non adherenceVitamin D deficiencyDDD (degenerative [...] starting 11/03/2018 until (more content not included)... 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-inflammatories (NSAID) History [...] Occurrences starting 07/12/2021 until 07/12/2022, 1 completed [employer] Comment on above: Every 8 Weeks for 6 Occurrences starting 07/12/2021 until 07/12/2022, 1 completed End: 01-10-2023 Aspartate aminotransferase [Enzymatic activity/volume] in Serum or Plasma AST Lab Routine Psoriatic arthritis 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 Plaque psoriasis Psoriasis SAPHO syndrome History of psoriatic arthritis 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-inflammatories (NSAID) Long-term current use of high risk medication other than anticoagulant Methotrexate, watermelon inspector, current use Every 8 Weeks for 6 Occurrences starting 01/10/2022 until 01/10/2023 [employer] Comment on above: Every 8 Weeks for 6 Occurrences starting 01/10/2022 until 01/10/2023 End: 07-26-2023 Aspartate aminotransferase [Enzymatic activity/volume] in Serum or Plasma AST Lab Routine Psoriatic arthritis 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 Macrocytic anemia Plaque psoriasis Psoriasis SAPHO syndrome History of kidney stones History of psoriatic arthritis [facility] current use of non-steroidal anti-inflammatories (NSAID) Long-term current use of high risk medication other than anticoagulant Methotrexate, fci, current use Abnormal renal function test Vitamin [...] for 4 Occurrences starting 07/25/2022 until 07/26/2023 [employer] Comment on above: Every 12 Weeks for 4 Occurrences startin g 07/25/2022 until 07/26/2023 End: 01-24-2024 Aspartate aminotransferase [Enzymatic activity/volume] in Serum or Plasma AST Lab Routine Psoriatic arthritis 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 Plaque psoriasis Psoriasis SAPHO syndrome History of kidney stones History of psoriatic arthritis Long-term current use of high risk medication other than anticoagulant Methotrexate, watermelon inspector, current use Vitamin D deficiency DDD (degenerative [...] for 4 Occurrences starting 01/23/2023 until 01/24/2024 [employer] Comment on above: Every 12 Weeks for 4 Occurrences startin g 01/23/2023 until 01/24/2024 End: 09-08-2020 AST [Catalytic activity/Vol] AST Lab Routine Psoriatic arthritis 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 Psoriasis SAPHO syndrome History of psoriatic arthritis [facility] current use of non-steroidal anti-inflammatories (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, watermelon inspector, current use Long-term current use of high [...] psoriasis 6 Occurrences starting 10/11/2019 until 09/08/2020 [employer] Comment on above: 6 Occurrences starting 10/11/2019 until 09/08/2020 End: 01-12-2021 AST [Catalytic activity/Vol] AST Lab Routine Psoriatic arthritis Psoriasis Plaque psoriasis Methotrexate, fci, current use Long-term current use of high risk medication other than anticoagulant [facility] current use of non-steroidal anti-inflammatories (NSAID) History [...] Occurrences starting 01/13/2020 until 01/12/2021, 1 completed [employer] Comment on above: 6 Occurrences starting 01/13/2020 until 01/12/2021, 1 completed End: 07-13-2021 AST [Catalytic activity/Vol] AST Lab Routine Psoriatic arthritis 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 Psoriasis SAPHO syndrome History of psoriatic arthritis [facility] current use of non-steroidal anti-inflammatories (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, fci, current use Long-term current use of high [...] Occurrences starting 09/12/2020 until 07/13/2021, 1 completed [employer] Comment on above: 6 Occurrences starting 09/12/2020 until 07/13/2021, 1 completed End: 05-03-2019 AST enzyme act/vol AST Routine Psoriatic arthri tis 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 Psoriasis Anemia, unspecified type [facility] current use of non-steroidal anti-inflammatories (NSAID) 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, watermelon inspector, current use Long-term current use of high [...] psoriasis 6 Occurrences starting 05/30/2018 until 05/03/2019 [facility] Work Phone: Comment on above: 6 Occurrences starting 05/30/2018 until 05/03/2019 End: 09-04-2019 AST enzyme act/vol ASTLabRoutinePsoriatic arthritisPsoriatic arthropathy of distal interphalangeal (DIP) jointPsoriatic spondylitisHistory of psoriatic arthritisLong term current use of non-steroidal anti-inflammatories (NSAID)[facility]FP current use of 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Long-term current use of high risk medication other than anticoagulantMethotrexate, fci, current useNoncompliancePatient non adherenceVitamin D deficiencyDDD (degenerative [...] starting 11/03/2018 until (more content not included)... 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 MCFP current use of non-steroidal anti-inflammatories (NSAID) History [...] Occurrences starting 07/12/2021 until 07/12/2022, 1 completed [employer] Comment on above: Every 8 Weeks for 6 Occurrences starting 07/12/2021 until 07/12/2022, 1 completed End: 01-10-2023 C-reactive protein C REACTIVE PROTEIN Lab Routi ne Psoriatic arthritis 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 Plaque psoriasis Psoriasis SAPHO syndrome History of psoriatic arthritis 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-inflammatories (NSAID) Long-term current use of high risk medication other than anticoagulant Methotrexate, watermelon inspector, current use Every 8 Weeks for 6 Occurrences starting 01/10/2022 until 01/10/2023 [employer] Comment on above: Every 8 Weeks for 6 Occurrences starting 01/10/2022 until 01/10/2023 End: 07-26-2023 C-reactive protein C REACTIVE PROTEIN Lab Routi ne Psoriatic arthritis 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 Macrocytic anemia Plaque psoriasis Psoriasis SAPHO syndrome History of kidney stones History of psoriatic arthritis 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-inflammatories (NSAID) Long-term current use of high risk medication other than anticoagulant Methotrexate, watermelon inspector, current use Abnormal renal function test Vitamin [...] for 4 Occurrences starting 07/25/2022 until 07/26/2023 [employer] Comment on above: Every 12 Weeks for 4 Occurrences startin g 07/25/2022 until 07/26/2023 End: 01-24-2024 C-reactive protein C REACTIVE PROTEIN Lab Routi ne Psoriatic arthritis 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-inflammatories (NSAID) History [...] cervical 6 Occurrences starting 01/04/2019 until 01/08/2020 [employer] Comment on above: 6 Occurrences starting 01/04/2019 until 01/08/2020 End: 05-03-2019 CBC,PLATELETS CBC,PLATELETS Routine Psoria tic arthritis 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 Psoriasis Anemia, unspecified type MCFP current use of non-steroidal anti-inflammatories (NSAID) [facility]FP current use of 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, watermelon inspector, current use Long-term current use of high [...] psoriasis 6 Occurrences starting 05/30/2018 until 05/03/2019 [facility] Work Phone: Comment on above: 6 Occurrences starting 05/30/2018 until 05/03/2019 End: 09-04-2019 CBC,PLATELETS CBC,PLATELETSLabRoutinePsori atic arthritisPsoriatic arthropathy of distal interphalangeal (DIP) jointPsoriatic spondylitisHistory of psoriatic arthritisLong term current use of non-steroidal anti-inflammatories (NSAID)[facility]FP current use of 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Long-term current use of high risk medication other than anticoagulantMethotrexate, watermelon inspector, current useNoncompliancePatient non adherenceVitamin D deficiencyDDD (degenerative [...] starting 11/03/2018 until (more content not included)... 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-inflammatories (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, watermelon inspector, current use Long-term current use of high [...] psoriasis 6 Occurrences starting 10/11/2019 until 09/08/2020 [employer] Comment on above: 6 Occurrences starting 10/11/2019 until 09/08/2020 End: 01-12-2021 Complete blood count with white cell differential, automated CBC, EDIF, PLATELET Lab Routine Psoriatic arthritis Psoriasis Plaque psoriasis Methotrexate, watermelon inspector, current use Long-term current use of high risk medication other than anticoagulant 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-inflammatories (NSAID) History [...] Occurrences starting 01/13/2020 until 01/12/2021, 1 completed [employer] Comment on above: 6 Occurrences starting 01/13/2020 until 01/12/2021, 1 completed End: 07-13-2021 Complete blood count with white cell differential, automated CBC, EDIF, PLATELET Lab Routine Psoriatic arthritis 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 Psoriasis SAPHO syndrome History of psoriatic arthritis [facility]FP current use of non-steroidal anti-inflammatories (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, watermelon inspector, current use Long-term current use of high [...] Occurrences starting 09/12/2020 until 07/13/2021, 1 completed [employer] Comment on above: 6 Occurrences starting 09/12/2020 until 07/13/2021, 1 completed End: 07-12-2022 Complete blood count with white cell differential, automated CBC, EDIF, PLATELET Lab Routine Psoriatic arthritis Psoriatic spondylitis Psoriasis Plaque psoriasis Anemia, unspecified type Methotrexate, watermelon inspector, current use Long-term current use of high risk medication other than anticoagulant 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 MCFP current use of non-steroidal anti-inflammatories (NSAID) History [...] Occurrences starting 07/12/2021 until 07/12/2022, 1 completed [employer] Comment on above: Every 8 Weeks for 6 Occurrences starting 07/12/2021 until 07/12/2022, 1 completed End: 01-10-2023 Complete blood count with white cell differential, automated CBC, EDIF, PLATELET Lab Routine Psoriatic arthritis 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 Plaque psoriasis Psoriasis SAPHO syndrome History of psoriatic arthritis [facility]FP current use of non-steroidal anti-inflammatories (NSAID) Long-term current use of high risk medication other than anticoagulant Methotrexate, fci, current use Every 8 Weeks for 6 Occurrences starting 01/10/2022 until 01/10/2023 [employer] Comment on above: Every 8 Weeks for 6 Occurrences starting 01/10/2022 until 01/10/2023 End: 07-26-2023 Complete blood count with white cell differential, automated CBC, EDIF, PLATELET Lab Routine Psoriatic arthritis 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 Macrocytic anemia Plaque psoriasis Psoriasis SAPHO syndrome History of kidney stones History of psoriatic arthritis [facility]FP current use of non-steroidal anti-inflammatories (NSAID) Long-term current use of high risk medication other than anticoagulant Methotrexate, watermelon inspector, current use Abnormal renal function test Vitamin [...] for 4 Occurrences starting 07/25/2022 until 07/26/2023 [employer] Comment on above: Every 12 Weeks for [...] high risk medication other than anticoagulant Methotrexate, watermelon inspector, current use Vitamin D deficiency DDD (degenerative [...] for 4 Occurrences starting 01/23/2023 until 01/24/2024 [employer] Comment on above: Every 12 Weeks for 4 Occurrences startin g 01/23/2023 until 01/24/2024 End: 09-08-2020 Creatinine [Mass/Vol] CREATININE SERUM Lab Routine Psoriatic arthritis 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 Psoriasis SAPHO syndrome History of psoriatic arthritis [facility]FP current use of non-steroidal anti-inflammatories (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, watermelon inspector, current use Long-term current use of high [...] psoriasis 6 Occurrences starting 10/11/2019 until 09/08/2020 [employer] Comment on above: 6 Occurrences starting 10/11/2019 until 09/08/2020 End: 01-12-2021 Creatinine [Mass/Vol] CREATININE SERUM Lab Routine Psoriatic arthritis Psoriasis Plaque psoriasis Methotrexate, watermelon inspector, current use Long-term current use of high risk medication other than anticoagulant MCFP current use of non-steroidal anti-inflammatories (NSAID) History [...] Occurrences starting 01/13/2020 until 01/12/2021, 1 completed [employer] 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-inflammatories (NSAID) History [...] cervical 6 Occurrences starting 01/04/2019 until 01/08/2020 [employer] Comment on above: 6 Occurrences starting 01/04/2019 until 01/08/2020 End: 07-13-2021 Creatinine [Mass/Vol] CREATININE SERUM Lab Routine Psoriatic arthritis 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 Psoriasis SAPHO syndrome History of psoriatic arthritis 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-inflammatories (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, watermelon inspector, current use Long-term current use of high [...] Occurrences starting 09/12/2020 until 07/13/2021, 1 completed [employer] Comment on above: 6 Occurrences starting 09/12/2020 until 07/13/2021, 1 completed End: 07-12-2022 Creatinine [Mass/volume] in Serum or Plasma CREATININE SERUM Lab Routine Psoriatic arthritis Psoriatic spondylitis Psoriasis Plaque psoriasis Anemia, unspecified type Methotrexate, fci, current use Long-term current use of high risk medication other than anticoagulant MCFP current use of 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-inflammatories (NSAID) History [...] Occurrences starting 07/12/2021 until 07/12/2022, 1 completed [employer] Comment on above: Every 8 Weeks for 6 Occurrences starting 07/12/2021 until 07/12/2022, 1 completed End: 01-10-2023 Creatinine [Mass/volume] in Serum or Plasma CREATININE SERUM Lab Routine Psoriatic arthritis 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 Plaque psoriasis Psoriasis SAPHO syndrome History of psoriatic arthritis 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-inflammatories (NSAID) Long-term current use of high risk medication other than anticoagulant Methotrexate, fci, current use Every 8 Weeks for 6 Occurrences starting 01/10/2022 until 01/10/2023 [employer] Comment on above: Every 8 Weeks for 6 Occurrences starting 01/10/2022 until 01/10/2023 End: 07-26-2023 Creatinine [Mass/volume] in Serum or Plasma CREATININE SERUM Lab Routine Psoriatic arthritis 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 Macrocytic anemia Plaque psoriasis Psoriasis SAPHO syndrome History of kidney stones History of psoriatic arthritis [facility]FP current use of non-steroidal anti-inflammatories (NSAID) Long-term current use of high risk medication other than anticoagulant Methotrexate, watermelon inspector, current use Abnormal renal function test Vitamin [...] for 4 Occurrences starting 07/25/2022 until 07/26/2023 [employer] Comment on above: Every 12 Weeks for 4 Occurrences startin g 07/25/2022 until 07/26/2023 End: 01-24-2024 Creatinine [Mass/volume] in Serum or Plasma CREATININE SERUM Lab Routine Psoriatic arthritis 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 Plaque psoriasis Psoriasis SAPHO syndrome History of kidney stones History of psoriatic arthritis Long-term current use of high risk medication other than anticoagulant Methotrexate, fci, current use Vitamin D deficiency DDD (degenerative [...] for 4 Occurrences starting 01/23/2023 until 01/24/2024 [employer] Comment on above: Every 12 Weeks for 4 Occurrences startin g 01/23/2023 until 01/24/2024 End: 05-03-2019 Creatinine mass conc CREATININE SERUM Routine Psoriatic arthritis 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 Psoriasis Anemia, unspecified type 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-inflammatories (NSAID) 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, fci, current use Long-term current use of high [...] psoriasis 6 Occurrences starting 05/30/2018 until 05/03/2019 [facility] Work Phone: Comment on above: 6 Occurrences starting 05/30/2018 until 05/03/2019 End: 09-04-2019 Creatinine mass conc CREATININE SERUMLabRoutinePsoriatic arthritisPsoriatic arthropathy of distal interphalangeal (DIP) jointPsoriatic spondylitisHistory of psoriatic arthritisLong term current use of non-steroidal anti-inflammatories (NSAID)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Long-term current use of high risk medication other than anticoagulantMethotrexate, watermelon inspector, current useNoncompliancePatient non adherenceVitamin D deficiencyDDD (degenerative [...] starting 11/03/2018 un (more content not included)... 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 Psoriasis SAPHO syndrome History of psoriatic arthritis [facility]FP current use of non-steroidal anti-inflammatories (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, watermelon inspector, current use Long-term current use of high [...] psoriasis 6 Occurrences starting 10/11/2019 until 09/08/2020 [employer] Comment on above: 6 Occurrences starting 10/11/2019 until 09/08/2020 End: 01-12-2021 CRP [Mass/Vol] C REACTIVE PROTEIN Lab Routi ne Psoriatic arthritis Psoriasis Plaque psoriasis Methotrexate, fci, current use Long-term current use of high risk medication other than anticoagulant 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-inflammatories (NSAID) History [...] Occurrences starting 01/13/2020 until 01/12/2021, 1 completed [facility] [employer] [facility] Comment on above: 6 Occurrences starting 01/13/2020 until 01/12/2021, 1 completed End: 01-08-2020 CRP [Mass/Vol] C REACTIVE PROTEIN Lab Routi ne Psoriatic arthritis Psoriatic spondylitis Psoriasis Plaque psoriasis Anemia, unspecified type Methotrexate, watermelon inspector, current use Long-term current use of high risk medication other than anticoagulant 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-inflammatories (NSAID) History [...] cervical 6 Occurrences starting 01/04/2019 until 01/08/2020 [employer] Comment on above: 6 Occurrences starting 01/04/2019 until 01/08/2020 End: 07-13-2021 CRP [Mass/Vol] C REACTIVE PROTEIN Lab Routi ne Psoriatic arthritis 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-inflammatories (NSAID) [facility]FP current use of 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, watermelon inspector, current use Long-term current use of high [...] psoriasis 6 Occurrences starting 05/30/2018 until 05/03/2019 [facility] Work Phone: Comment on above: 6 Occurrences starting 05/30/2018 until 05/03/2019 End: 09-04-2019 CRP mass conc C REACTIVE PROTEINLabRoutinePsoriatic arthritisPsoriatic arthropathy of distal interphalangeal (DIP) jointPsoriatic spondylitisHistory of psoriatic arthritisLong term current use of non-steroidal anti-inflammatories (NSAID)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Long-term current use of high risk medication other than anticoagulantMethotrexate, watermelon inspector, current useNoncompliancePatient non adherenceVitamin D deficiencyDDD (degenerative [...] [address] (more content not included)... 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, watermelon inspector, current use Long-term current use of high [...] psoriasis 6 Occurrences starting 05/30/2018 until 05/03/2019 [facility] Work Phone: Comment on above: 6 Occurrences starting 05/30/2018 until 05/03/2019 End: 09-04-2019 SEDIMENTATION RATE, AUTOMATED SEDIMENTATION RATE, AUTOMATEDLabRoutinePsoriatic arthritisPsoriatic arthropathy of distal interphalangeal (DIP) jointPsoriatic spondylitisHistory of psoriatic arthritisLong term current use of non-steroidal anti-inflammatories (NSAID)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Long-term current use of high risk medication other than anticoagulantMethotrexate, fci, current useNoncompliancePatient non adherenceVitamin D deficiencyDDD (degenerative disc disease), cervicalImpingement syndrome of both shouldersLumbosacral spondylosis without myelopathyOsteoarthritis of cervical spine, unspecified spinal osteoarthritis complication statusOsteoarthritis of both acromioclavicular jointsOsteoarthritis of both glenohumeral jointsOsteoarthritis of both hands, unspecified osteoarthritis typeOsteoarthritis of both hips, unspecified osteoarthritis typeOsteoarthritis of both wrists, unspecified osteoarthritis typePrimary osteoarthritis of both kneesPlaque psoriasisPsoriasis6 Occurrences starting (more content not included)... 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-inflammatories (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, fci, current use Long-term current use of high [...] psoriasis 6 Occurrences starting 10/11/2019 until 09/08/2020 [employer] Comment on above: 6 Occurrences starting 10/11/2019 until 09/08/2020 End: 01-12-2021 SEDIMENTATION RATE, AUTOMATED SEDIMENTATION RATE, AUTOMATED Lab Routine Psoriatic arthritis Psoriasis Plaque psoriasis Methotrexate, fci, current use Long-term current use of high risk medication other than anticoagulant [facility]FP current use of non-steroidal anti-inflammatories (NSAID) History [...] Occurrences starting 01/13/2020 until 01/12/2021, 1 completed [facility] [employer] [facility] Comment on above: 6 Occurrences starting 01/13/2020 until 01/12/2021, 1 completed End: 01-08-2020 SEDIMENTATION RATE, AUTOMATED SEDIMENTATION RATE, AUTOMATED Lab Routine Psoriatic arthritis Psoriatic spondylitis Psoriasis Plaque psoriasis Anemia, unspecified type Methotrexate, fci, current use Long-term current use of high risk medication other than anticoagulant 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 [facility]FP current use of non-steroidal anti-inflammatories (NSAID) History [...] cervical 6 Occurrences starting 01/04/2019 until 01/08/2020 [employer] Comment on above: 6 Occurrences starting 01/04/2019 until 01/08/2020 End: 07-13-2021 SEDIMENTATION RATE, AUTOMATED SEDIMENTATION RATE, AUTOMATED Lab Routine Psoriatic arthritis 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 Psoriasis SAPHO syndrome History of psoriatic arthritis [facility] current use of non-steroidal anti-inflammatories (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, watermelon inspector, current use Long-term current use of high [...] Occurrences starting 09/12/2020 until 07/13/2021, 1 completed [employer] Comment on above: 6 Occurrences starting 09/12/2020 until 07/13/2021, 1 completed End: 07-12-2022 SEDIMENTATION RATE, AUTOMATED SEDIMENTATION RATE, AUTOMATED Lab Routine Psoriatic arthritis Psoriatic spondylitis Psoriasis Plaque psoriasis Anemia, unspecified type Methotrexate, fci, current use Long-term current use of high risk medication other than anticoagulant 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-inflammatories (NSAID) History [...] Occurrences starting 07/12/2021 until 07/12/2022, 1 completed [employer] Comment on above: Every 8 Weeks for 6 Occurrences starting 07/12/2021 until 07/12/2022, 1 completed End: 01-10-2023 SEDIMENTATION RATE, AUTOMATED SEDIMENTATION RATE, AUTOMATED Lab Routine Psoriatic arthritis 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 Plaque psoriasis Psoriasis SAPHO syndrome History of psoriatic arthritis [facility] current use of non-steroidal anti-inflammatories (NSAID) Long-term current use of high risk medication other than anticoagulant Methotrexate, watermelon inspector, current use Every 8 Weeks for 6 Occurrences starting 01/10/2022 until 01/10/2023 [employer] Comment on above: Every 8 Weeks for 6 Occurrences starting 01/10/2022 until 01/10/2023 End: 07-26-2023 SEDIMENTATION RATE, AUTOMATED SEDIMENTATION RATE, AUTOMATED Lab Routine Psoriatic arthritis 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 Macrocytic anemia Plaque psoriasis Psoriasis SAPHO syndrome History of kidney stones History of psoriatic arthritis 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-inflammatories (NSAID) Long-term current use of high risk medication other than anticoagulant Methotrexate, watermelon inspector, current use Abnormal renal function test Vitamin [...] for 4 Occurrences starting 07/25/2022 until 07/26/2023 [facility] Comment on above: Every 12 Weeks for 4 Occurrences startin g 07/25/2022 until 07/26/2023 End: 01-24-2024 SEDIMENTATION RATE, AUTOMATED SEDIMENTATION RATE, AUTOMATED Lab Routine Psoriatic arthritis 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 Plaque psoriasis Psoriasis SAPHO syndrome History of kidney stones History of psoriatic arthritis Long-term current use of high risk medication other than anticoagulant Methotrexate, watermelon inspector, current use Vitamin D deficiency DDD (degenerative [...] for 4 Occurrences starting 01/23/2023 until 01/24/2024 [facility] Comment on above: Every 12 Weeks for 4 Occurrences startin g 01/23/2023 until 01/24/2024 VITAMIN D, (1,25 DIHYDROXY) VITAMIN D, (1,25 DIHYDROXY) Lab Routine Psoriatic arthritis 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 Psoriasis SAPHO syndrome History of psoriatic arthritis MCFP current use of non-steroidal anti-inflammatories (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, watermelon inspector, current use Long-term current use of high [...] type Plaque psoriasis 07/13/2020 9:08 AM EDT [facility] Immunizations Immunization Date Immunization Notes Care Provider Ortega kent 09-07-2020 SARS-CoV-2 (COVID-19 ) mRNA BNT-162b2 vax Yakelin Jack [facility] 08-17-2020 SARS-CoV-2 (COVID-19 ) mRNA BNT-162b2 vax Yakelin Jack [facility] 11-15-2019 tetanus toxoid, reduced diphtheria toxoid, and acellular pertussis vaccine, adsorbed Yakelin Jack [facility] NEGATED: Highlighted row has not occurred!02-15-2023 influenza virus vaccine, unspecified formulation German Carrion [facility] Payers Date Payer Category Payer Unknown [employer] xxxxxxxxxxx 2018-Present [id number] 2018 Unknown [employer] [facility] [id number] 2018-Present [id number] [id number]. [id number] 2018 Unknown 1.2.840.261507. 1.13.172.2.7.3. 237024.315 1966 Unknown [id number] 2.16.840.1.195958.3.579.2.647 1966 Unknown [id number] 2.16.840.1.026918.3.579.2.983 1966 Unknown [id number] 2.16.840.1.915437.3.579.2.983 1966 Unknown [id number] 2.16.840.1.031101.3.579.2.593 1966 Unknown [id number] 2.16.840.1.816038.3.579.2.593 1966 Unknown [id number] 2.16.840.1.685921.3.579.2.593 1966 Unknown [id number] 2.16.840.1.408747.3.579.2.593 1966 Unknown [id number] 2.16.840.1.509743.3.579.2.593 1966 Unknown [id number] 2.16.840.1.209797.3.579.2.593 1966 Unknown [id number] 2.16.840.1.711027.3.579.2.593 1966 Unknown [id number] 2.16.840.1.147202.3.579.2.593 1966 Unknown [id number] 2.16.840.1.713713.3.579.2.593 1966 Unknown [id number] 2.16.840.1.644706.3.579.2.593 1966 Unknown [id number] 2.16.840.1.459408.3.579.2.593 1966 Unknown [id number] 2.16.840.1.623677.3.579.2.593 1966 Unknown [id number] 2.16.840.1.752263.3.579.2.593 1966 Unknown [id number] 2.16.840.1.806281.3.579.2.593 1966 Unknown [id number] 2.16.840.1.116574.3.579.2.593 1966 Unknown [id number] 2.16.840.1.085192.3.579.2.593 1966 Unknown [id number] 2.16.840.1.920378.3.579.2.593 1966 Unknown [id number] 2.16.840.1.876843.3.579.2.593 1966 Unknown [id number] 2.16.840.1.184313.3.579.2.593 1966 Unknown [id number] 2.16.840.1.326159.3.579.2.593 1966 Unknown [id number] 2.16.840.1.108214.3.579.2.593 1966 Unknown [id number] 2.16.840.1.844586.3.579.2.593 1966 Unknown [id number] 2.16.840.1.919484.3.579.2.983 1966 Unknown [id number] 2.16.840.1.776437.3.579.2.983 1966 Unknown [id number] 2.16.840.1.422250.3.579.2.983 1966 Unknown [id number] 2.16.840.1.495536.3.579.2.983 1966 Unknown [id number] 2.16.840.1.610559.3.579.2.983 1966 Unknown [id number] 2.16.840.1.793224.3.579.2.983 1966 Unknown [id number] 2.16.840.1.848631.3.579.2.727 1966 Unknown [id number] 2.16.840.1.807448.3.579.2.727 1966 Unknown [id number] 2.16.840.1.012522.3.579.2.727 1966 Unknown [id number] 2.16.840.1.440191.3.579.2.727 1966 Unknown [id number] 2.16.840.1.538252.3.579.2.727 1966 Unknown [id number] 2.16.840.1.474894.3.579.2.727 1966 Unknown [id number] 2.16.840.1.005145.3.579.2.727 1966 Unknown [id number] 2.16.840.1.132972.3.579.2.727 1966 Unknown [id number] 2.16.840.1.224803.3.579.2.727 1966 Unknown [id number] 2.16.840.1.168626.3.579.2. 1966 Unknown [id number] 2.16.840.1.992619.3.579.2.727 1966 Unknown [id number] 2.16.840.1.717803.3.579.2. 1966 Unknown [id number] 2.16.840.1.948573.3.579.2.727 1959 Unknown [id number] 1959 Unknown [id number] 2.16.840.1.465896.19 Social History Date Type Detail Facility Start: 03-29-2018 End: 05-17-2023 Tobacco smoking status NHIS Former smoker [facility] Work Phone: Start: 1965 Sex Assigned At Not on file [facility] Work Phone: Start: 03-29-2018 End: 01-10-2022 Tobacco Comment Quit 10/2017 [facility] Start: 09-03-2018 End: 07-25-2022 Alcohol intake No [facility] Start: 05-06-2019 End: 01-23-2023 Alcohol intake Current non-drinker of alcohol (finding) [facility] Start: 09-09-2019 End: 01-10-2022 Tobacco use and exposure Never used [facility] Exposure to SARS-CoV -2 (event) Not sure [facility] History of tobacco use Current smoker [facility] Start: 07-25-2022 History of Social function [facility] Start: 12-31-2017 Gender identity Identifies as male gender (finding) [facility] Clinical Notes 07-12-2021 to 01-23-2023 Tra Vale Jr., DO - 01/23/2023 9:00 AM EDTDatierney Vale Jr., DO - 07/25/2022 8:30 AM EDT Note Date & Type Note Facility 01-23-2023 History of Present illness Narrative Subjective History of Present Illness Patient states he seen a filleter Dr. Fawad Driver but they did not [...] 2-3 months. Taltz is once a month. Patient did blood [...] is intact. Motor: Weakness present. 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 Oriented to person, place, and time. Cranial Nerves CN III, IV, : Extraocular movements intact bilaterally. Extraocular movements intact bilaterally. Pupils equal round and reactive to light bilaterally. Sensory Normal sensation. Decreased director patient accounting strength both hands. Assessment and Plan Encounter Diagnoses Name Primary? 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 Hgb was low at 12.7 4. 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 Allergy to Humira - makes the psoriasis worse 6. Allergy to Cosentyx - makes the psoriasis worse 7. Call if need Rx's 8 Enbrel did not help 9. Remicade did not help 10. Methotrexae did not help 11. Otezla did not help 12. Chronic Pain Management F/U per Dr. Solano in [place]. 13. TB test was negative 14. Negative [...] Tatz per dermatology documented in this encounter [facility] 10-23-2022 Note HPI Staff Glenda is a 57 year old male patient presenting to the office in need of a referral for kidney stones. 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 Establish Care: History:htn, Heart dx. psoriasis, Any previous diagnosis: History of seeing any specialist: Dr Dr Kavin Antoine, pain management [place]en When was your last doctors visit: Last [...] He sees one at the hospital in [place]. Last 10/16/2022, he had injections in his [...] and his friends. 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 He wants to find out why he [...] to help with this. He sees a roller setter, Dr. Vale in [place] for his psoriasis and joints. He is [...] if needed. 5. Atherosclerotic heart disease of [place] coronary artery with angina pectoris (I25.119: Atherosclerotic heart disease of [place] coronary artery with unspecified angina pectoris) Patient [...] with voice recognition artificial intelligence software, specifically [employer]here ([employer] and or [employer] Substitutions may have occurred due to the inherent limitations of voice recognition and artificial intelligence software. Documentation services were performed after patient or guardian consented to allow [employer] to record this visit. RED Documentati (more content not included)... [facility] Comment on above: Result Comment: Elec tronically Signed By: German Carrion MD\.br\Date and Time Signed: 10/23/22 12:16 EDT\.br\Electronically Co-Signed By: Rola Peguero\.br\Date and Time Co-Signed: 10/20/22 10:48 EDT 07-25-2022 History of Present illness Narrative History of Present Illness Patient states he seen a filleter Dr. Fawad Driver but they did not [...] is intact. Motor: Weakness present. Comments: Decreased director patient accounting strength both hands Psychiatric: Mood and Affect: Mood normal. Behavior: Behavior normal. Thought Content: Thought content normal. Judgment: Judgment normal. Neurological Exam Mental Status Alert. Oriented to person, place, and time. Cranial Nerves CN III, IV, : Extraocular movements intact bilaterally. Extraocular movements intact bilaterally. Pupils equal round and reactive to light bilaterally. Sensory Normal sensation. Decreased director patient accounting strength both hands. Assessment and Plan Encounter Diagnoses Name Primary? 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 Hgb is low at 12.7 4. 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 Solano in [place]. 13. TB test was negative 14. Negative [...] copy to PCP documented in this encounter [facility] 06-17-2022 Evaluation note Encounter Date Diagnosis [...] your family doctor for recheck this week. [facility] Other 03-14-2023 NoteCONSULTATION CONSULTATION DATE: 06/13/2022 FOLLOW [...] asked him to decrease the use of Lookout to 45 pills to last him one month's time. He just recently had a prescription filled for Lookout 60 pills. I have asked him to make this last for six weeks. We will have him return to the office in six weeks' time or sooner if needed.[facility] [id number] NoteCONSULTATION CONSULTATION DATE: 02/16/2022 HISTORY OF PRESENT ILLNESS: This is a pleasant, 56-year-old gentleman returning to the clinic for a three month follow up for chronic neck and lower back pain. The patient had radiofrequency ablations to his cervical area in August of 2021. Patient has had pain improvement since then, but does have residual tightness. Medications currently include diclofenac 75 mg b.i.d., Lookout 5/325 b.i.d., gabapentin 300 mg b.i.d. and [...] or injuries. 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 Fawad Driver but they did not [...] his 6 Month F/U. Patient states his Rag Sorter And Cutter stopped the Stelara and started Taltz. Patient [...] or requires blood work every 2-3 months. José Miguel is every month. Arsh blood work done in 10/2021 but I [...] is intact. Motor: Weakness present. Comments: Decreased director patient accounting strength both hands Psychiatric: Mood and Affect: Mood normal. Behavior: Behavior normal. Thought Content: Thought content normal. Judgment: Judgment normal. Neurological Exam Mental Status Alert. Oriented to person, place, and time. Cranial Nerves CN III, IV, : Extraocular movements intact bilaterally. Extraocular movements intact bilaterally.Pupils equal round and reactive to light bilaterally. Sensory Normal sensation. Decreased director patient accounting strength both hands. Assessment and Plan Encounter Diagnoses Name Primary? 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 Time was spent with [...] Pain Management F/U per Dr. Solano in [place]. 13. TB test was negative 14. Negative [...] me in 6 months documented in this [facility]08-25-2022 NoteCONSULTATION PROCEDURE DATE: 11/24/2021 PROCEDURE NOTE [...] will be followed up in the office.[facility] [id number] NoteCONSULTATION CONSULTATION DATE: 10/27/2021 HISTORY OF PRESENT [...] a menthol heat rub. Current medications include Lookout 5/325 b.i.d., diclofenac 75 mg b.i.d., gabapentin [...] Patient agrees with this plan of care.[facility] [id number] History of Present illness Narrative* Tra Vale , DO - 07/12/2021 8:30 AM EDT History of Present Illness Patient states he seen a filleter Dr. Fwaad Driver but they did not help treat is psoriasis. DX with PsA 2011. Humira and cosentyx made the psoriasis worse and Methotrexate and Enbrel and Remicade and otezla quit working. Stelara started 05/2018. Raghavla has been helping and not bothering the [...] is intact. Motor: Weakness present. Comments: Decreased director patient accounting strength both hands Psychiatric: Mood and Affect: Mood normal. Behavior: Behavior normal. Thought Content: Thought content normal. Judgment: Judgment normal. Neurological Exam Mental Status Alert. Oriented to person, place, and time. Cranial Nerves CN III, IV, : Extraocular movements intact bilaterally. Extraocular movements intact bilaterally.Pupils equal round and reactive to light bilaterally. Sensory Normal sensation. Decreased director patient accounting strength both hands. Assessment and Plan Encounter Diagnoses Name Primary? 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 Solano in [place]. 13. TB test was negative 14. Negative [...] Bear Antoine. 27. Derm wants to change Stelara to Taltz 27. F/U with me in 6 months [facility] Future Appointments Appointment Date:11/15/2022 04:40:00 PM Scheduled Provider:German Carrion MD Location:[facility] Future App[facility]ments Appointment Date:02/15/2023 11:20:00 AM Scheduled Provider:German Carrion MD Location:[facility] Appointment Type: Open Diagnostic Tests Pending * Comprehensive Metabolic Panel 11/15/22 * Vitamin B12 Level 11/15/22 * Folate Level 11/15/22 [facility] Future Appointments Appointment Date:08/16/2023 01:15:00 PM Scheduled Provider:German Carrion MD Location:[facility] Appointment Type:FM Open Appointment Date:10/01/2023 01:00:00 PM Scheduled Provider:Yusuf FINE MD Location:[facility] Appointment Type:URO New Patient Future Scheduled Tests Radiology* Echo Transthoracic Complete 05/17/23 [facility] Diagnosis 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 Psoriatic arthritis Psoriatic arthropathy Psoriatic spondylitis Psoriatic arthropathy Psoriasis Other psoriasis Plaque psoriasis Other psoriasis Anemia, unspecified type Methotrexate, watermelon inspector, current use Encounter for long-term (current) use of other medications Long-term current use of high risk medication other than anticoagulant MCFP current use of 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 Encounter for long-term (current) use of steroids 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-inflammatories (NSAID) Encounter [...] cervical intervertebral disc [facility] Diagnosis Psoriatic arthritis- Primary Psoriatic arthropathy 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 Psoriatic arthropathy Plaque psoriasis Other psoriasis Psoriasis Other psoriasis SAPHO syndrome Traumatic spondylopathy History of psoriatic arthritis Personal history of arthritis 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-inflammatories (NSAID) Encounter for long-term (current) use of non-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-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 Long-term current use of high risk medication other than anticoagulant Methotrexate, fci, current use Encounter for long-term (current) use of other medications Vitamin D deficiency Unspecified vitamin D deficiency [facility] Diagnosis Psoriatic arthritis- Primary Psoriatic arthropathy 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 Psoriatic arthropathy Macrocytic anemia Unspecified deficiency anemia Plaque psoriasis Other psoriasis Psoriasis Other psoriasis SAPHO syndrome Traumatic spondylopathy History of kidney stones Personal history of urinary calculi History of psoriatic arthritis Personal history of arthritis MCFP current use of non-steroidal anti-inflammatories (NSAID) Encounter for long-term (current) use of non-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-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 Long-term current use of high risk medication other than anticoagulant Methotrexate, fci, current use Encounter for long-term (current) use [...] osteoarthrosis, lower leg [facility] Diagnosis Psoriatic arthritis- Primary Psoriatic arthropathy 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 Psoriatic arthropathy Plaque psoriasis Other psoriasis Psoriasis Other psoriasis SAPHO syndrome Traumatic spondylopathy History of kidney stones Personal history of urinary calculi History of psoriatic arthritis Personal history of arthritis Long-term current use of high risk medication other than anticoagulant Methotrexate, watermelon inspector, current use Encounter for long-term (current) use [...] osteoarthrosis, lower leg [facility] Narrative - Reported* Type Description Date Medical History psoriasis [facility] [employer] Other Hospital course Narrative No data available for this section [facility] Discharge instructions No data available for this section [facility] No data available for this section [facility] Reason for Referral Status Reason Specialty Diagnoses / Procedures Re ferred By Contact Referred To Contact New Request Multispecialty Diagnoses Psoriatic arthritis 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 Psoriasis Fatigue, unspecified type History of psoriatic arthritis 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-inflammatories (NSAID) MCFP current use of 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, fci, current use Long-term current use of high risk medication other than anticoagulant Lumbosacral spondylosis without myelopathy Disorder of bone and cartilage Plaque psoriasis Cervicalgia Dorsalgia Chronic pain of both shoulders Bilateral elbow joint pain Bilateral wrist pain Bilateral hand pain Chronic pain of both knees Tra Vale Jr., DO [address] [id number] Status Reason Specialty Diagnoses / Procedures Referred By Contact Referred To Contact Pending Review Diagnoses Vitamin D deficiency Tra Vale Jr., DO [address] [place] [address] Status Reason Specialty Diagnoses / Procedures Re ferred By Contact Referred To Contact New Request Sports Ortho and Primary Care Sports Diagnoses Psoriatic arthritis 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 Psoriasis Anemia, unspecified type MCFP current use of non-steroidal anti-inflammatories (NSAID) MCFP current use of 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, watermelon inspector, current use Long-term current use of high [...] Plaque psoriasis Tra Vale Jr., DO [address] [id number] Status Reason Specialty Diagnoses / Procedures Re ferred By Contact Referred To Contact New Request Occupational Therapy Diagnoses Psoriatic arthritis 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, watermelon inspector, current use Long-term current use of high [...] Plaque psoriasis Tra Vale Jr., DO [address] [facility] [place] [address] Status Reason Specialty Diagnoses / Procedures Re ferred By Contact Referred To Contact Closed Diagnoses Psoriatic arthritis Psoriatic spondylitis Psoriasis Plaque psoriasis Anemia, unspecified type Methotrexate, watermelon inspector, current use Long-term current use of high risk medication other than anticoagulant 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 Patient states he recently moved to [place] from [place]. Patient was seeing a Marketing Forecaster and Rag Sorter And Cutter there for his psorasis and PsA. Patient states he seen a filleter Dr. aFwad Driver but they did not help treat [...] negative Romberg sign. Gait abnormal. Cane. 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 History of Present Illness Patient states he seen a filleter Dr. Fawad Driver but they did not [...] negative Romberg sign. Gait abnormal. Cane. 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 Fawad Driver but they did not help treat is psoriasis. DX with PsA 2011. Humira and cosentyx made the psoriasis worse and Methotrexate and Enbrel and Remicade and otezla made quit working. Stelara started 05/2018. Stelara is helping and not bothering the patient. Presence of Pain: complains of pain/discomfort (09/03/18 113), Pain Location: (Everywhere) (09/03/18 113), [facility] [...] Pain Management F/U per Dr. Solano in [place]. 15. Disability forms filled out for patient [...] Present Illness Patient states he seen a filleter Dr. Fawad Driver but they did not [...] present. Gait: Gait abnormal. Comments: Cane. Decreased director patient accounting strength both hands Psychiatric: Mood and Affect: [...] Anemia, unspecified type History of psoriatic arthritis MCFP current use of non-steroidal anti-inflammatories (NSAID) MCFP current use of systemic steroids Long-term current use of high risk medication other than anticoagulant Methotrexate, watermelon inspector, current use Vitamin D deficiency DDD (degenerative [...] Pain Management F/U per Dr. Solano in [place]. 15. TB test was negative 16. Negative [...] Present Illness Patient states he seen a filleter Dr. Fawad Driver but they did not help treat is psoriasis. DX with PsA 2011. Humira and cosentyx made the psoriasis worse and Methotrexate and Enbrel and Remicade and otezla made quit working. Stelara started 05/2018. Stelara has [...] present. Gait: Gait abnormal. Comments: Cane. 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 Solano in [place]. 15. TB test was negative 16. Negative [...] Present Illness Patient states he seen a filleter Dr. Fawad Driver but they did not [...] last appointment. 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 Motor: Weakness present. Comments: Decreased director patient accounting strength both hands Psychiatric: Mood and Affect: Mood normal. Behavior: Behavior normal. Thought Content: Thought content normal. Judgment: Judgment normal. Neurologic Exam Mental Status Oriented to person, place, and time. Cranial Nerves CN III, IV, Pupils are equal, round, and reactive to light. Extraocular motions are normal. Assessment and Plan Encounter Diagnoses Name Primary? 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 LACQUER MACHINE FEEDER is elevated at 1.34 with GFR of [...] Pain Management F/U per Dr. Solano in [place]. 15. TB test was negative 16. Negative [...] Present Illness Patient states he seen a filleter Dr. Fawad Driver but they did not [...] Psoriasis Plaque psoriasis Anemia, unspecified type Methotrexate, fci, current use Long-term current use of high risk medication other than anticoagulant MCFP current use of systemic steroids MCFP current use of non-steroidal anti-inflammatories (NSAID) History [...] Pain Management F/U per Dr. Solano in [place]. 15. F/U with me in 4 months [...] Present Illness Patient states he seen a filleter Dr. Fawad Driver but they did not help treat is psoriasis. DX with PsA 2011. Humira and cosentyx made the psoriasis worse and Methotrexate and Enbrel and Remicade and otezla quit working. Stelara started 05/2018. Raghvalara has been helping and not bothering the [...] him. Patient states he has seen a filleter Shai and she recommends Taltz instead of [...] is intact. Motor: Weakness present. 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 3. Call if need Rx's 4. LACQUER MACHINE FEEDER was elevated at 1.34 with GFR of [...] Pain Management F/U per Dr. Solano in [place]. 15. TB test was negative 16. Negative [...] Bear Antoine. 28. 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 -steroidal anti-inflammatories (NSAID) Encounter for long-term (current) use of non-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-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 MCFP current use of sys temic steroids Encounter for long-term (current) use of steroids Methotrexate, fci, cur rent use Encounter for long-term (current) [...] spondylopathy Psoriasis Other psoriasis Anemia, unspecified type MCFP current use of non-steroidal anti-inflammatories (NSAID) Encounter for long-term (current) use of non-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-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 MCFP current use of systemic steroids Encounter for long-term (current) use of steroids Methotrexate, watermelon inspector, current use Encounter for long-term (current) use [...] spondylopathy Psoriasis Other psoriasis Anemia, unspecified type 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-inflammatories (NSAID) Encounter for long-term (current) use of non-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-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 MCFP current use of systemic steroids Encounter for long-term (current) use of steroids Methotrexate, watermelon inspector, current use Encounter for long-term (current) use [...] spondylopathy Psoriasis Other psoriasis Anemia, unspecified type 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-inflammatories (NSAID) Encounter for long-term (current) use of non-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-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 Encounter for long-term (current) use of steroids Methotrexate, fci, current use Encounter for long-term (current) use [...] of psoriatic arthritis Personal history of arthritis 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-inflammatories (NSAID) Encounter for long-term (current) use of non-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-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 MCFP current use of systemic steroids Encounter for long-term (current) use of steroids Long-term current use of high risk medication other than anticoagulant Methotrexate, watermelon inspector, current use Encounter for long-term (current) use [...] of psoriatic arthritis Personal history of arthritis 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-inflammatories (NSAID) Encounter for long-term (current) use of non-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-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 Encounter for long-term (current) use of steroids Long-term current use of high risk medication other than anticoagulant Methotrexate, watermelon inspector, current use Encounter for long-term (current) use [...] of psoriatic arthritis Personal history of arthritis MCFP current use of non-steroidal anti-inflammatories (NSAID) Encounter for long-term (current) use of non-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-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 Methotrexate, fci, current use Encounter for long-term (current) use [...] Other psoriasis Plaque psoriasis Other psoriasis Methotrexate, fci, current use Encounter for long-term (current) use of other medications Long-term current use of high risk medication other than anticoagulant 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-inflammatories (NSAID) Encounter [...] psoriasis Other psoriasis Anemia, unspecified type Methotrexate, fci, current use Encounter for long-term (current) use of other medications Long-term current use of high risk medication other than anticoagulant 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 Encounter for long-term (current) use of steroids MCFP current use of non-steroidal anti-inflammatories (NSAID) Encounter [...] psoriasis Other psoriasis Anemia, unspecified type Methotrexate, watermelon inspector, current use Encounter for long-term (current) use of other medications Long-term current use of high risk medication other than anticoagulant 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 Encounter for long-term (current) use of steroids 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-inflammatories (NSAID) Encounter [...] of psoriatic arthritis Personal history of arthritis MCFP current use of non-steroidal anti-inflammatories (NSAID) Encounter for long-term (current) use of non-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-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 Methotrexate, watermelon inspector, current use Encounter for long-term (current) use [...] History Records FoundNo Family History Records Found No data available for this section No Family History Records Found Advance Directives No [...] Luz. Patient states he recently moved to [place] from [place]. Patient was seeing a Marketing Forecaster and Rag Sorter And Cutter there for his psorasis and PsA. Patient states he seen a filleter Dr. Fawad Driver but they did not [...] last appointment. 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 Patient states he has seen a filleter Bear antoine and she recommends Taltz instead [...] his 6 Month F/U. Patient states his Rag Sorter And Cutter stopped the Stelara and started Taltz. Patient [...] section and content) DATE CREATED AUTHOR 07/29/2020 [facility] DATE CREATED AUTHOR AUTHOR'S ORGANIZ ATION 03/21/2021 [facility] dical Specialist DATE CREATED AUTHOR AUTHOR'S ORGANIZ ATION 01/11/2022 [facility] DATE CREATED AUTHOR AUTHOR'S ORGANIZ ATION 08/12/2022 [facility] DATE CREATED AUTHOR AUTHOR'S ORGANIZ ATION 11/21/2022 [facility] DATE CREATED AUTHOR AUTHOR'S ORGANIZ ATION 01/24/2023 [facility] DATE CREATED AUTHOR AUTHOR'S ORGANIZ ATION 07/04/2023 [facility] Care Teams (unrecognized sec tion and content) Sidehand Relationship Specialty Start Date End Date Rodrigo Luz MD [address] [place] [address] PCP - General Family Medicine 12/31/17 Sidehand Relationship Specialty Start Date End Date Rodrigo Luz MD [address], [place] [address] PCP - General Family Medicine 12/31/17 Sidehand Relationship Specialty Start Date End Date Rodrigo Luz MD [address], [place] [address] PCP - General Family Medicine 12/31/17 Sidehand Relationship Specialty Start Date End Date Rodrigo Luz MD [address], [place] [id number] PCP - General Family Medicine 12/31/17 FOR [...] BE BASED ON THE PRIMARY CLINICAL RECORDS. [facility]. provides no warranty or guarantee of the accuracy or completeness of information in this document.
== END 2023-07-17 09:19 | disposition home or self-care (01) ==
PROVIDERS: PCP Family Medicine; Visit Provider Anesthesiology Pain Medicine
DX: M54.12 Radiculopathy, cervical region (principal)
CPT/HCPCS: 62321; J1100; Q9966

== ENCOUNTER 2023-08-02 09:00 | Outpatient (OUT) | payer OTHER, SELFPAY ==
--- NOTE | 2023-08-02 09:23 | P.CN_ITS ---
Consult Note: HPI Data of Consult Patient: known to practice within the last 3 years Requesting Physician: Negra Solorzano NP Primary Care Provider: RODRIGO BRINK Consult Narrative Reason for consult: f/u Narrative: Patrick Buckley a pleasant 57 year old male presents for evaluation and management of chronic pain. Today pain is in all over and 10/10. Patient reports pain varies. Pain is increased with sitting, standing, walking, lifting, bending, stairs, ADLs, activity. Pain decreased with medications and heat/ice. Patient has been taking tizanidine 4mg BID PRN, amitriptyline 25mg HS, has been out of gabapentin 1 week, noticed no improvement with gabapentin 600mg AM PM and 300mg afternoon. Patient recently had EMG completed which is consistent with cervical radiculopathy at C8. Patient continues to have numbness tingling weakness of BUE and BLE. No falls, no loss of bowel or bladder. Pt follows with rheumatology Q6 months and is on methotrexate for psoriatic arthritis. Recent cervical BELINDA provided no improvement in pain or symptoms. cc:: CC: Negra Solorzano NP Review of Systems ROS Status of ROS 10 or more systems reviewed and unremark able except as noted in history and below Musculoskeletal Reports: back pain, neck pain, extremity pain and joint pain PFSH PFSH Medical History Psoriatic arthritis ?L40.50 - Arthropathic psoriasis, unspecified (ICD-10) Osteoarthritis ?M19.90 - Unspecified osteoarthritis, unspecified site (ICD-10) Upper back pain ?M54.9 - Dorsalgia, unspecified (ICD-10) Low back pain ?M54.50 - Low back pain, unspecified (ICD-10) Neck pain ?M54.2 - Cervicalgia (ICD-10) Numbness and tingling ?R20.0 - Anesthesia of skin (ICD-10) ?R20.2 - Paresthesia of skin (ICD-10) Hypertension ?I10 - Essential (primary) hypertension (ICD-10) Surgical History H/O umbilical hernia repair ?Z98.890 - Other specified postprocedural states (ICD-10) ?Z87.19 - Personal history of other diseases of the digestive system (ICD-10) H/O ventral hernia repair ?Z98.890 - Other specified postprocedural states (ICD-10) ?Z87.19 - Personal history of other diseases of the digestive system (ICD-10) H/O gastric bypass ?Z98.84 - Bariatric surgery status (ICD-10) History of herniorrhaphy ?Z98.890 - Other specified postprocedural states (ICD-10) ?Z87.19 - Personal history of other diseases of the digestive system (ICD-10) History of appendectomy ?Z90.49 - Acquired absence of other specified parts of digestive tract (ICD- 10) Meds Home Medications and Allergies Home Medications ?Medication ?Instructions ?Recorded ?Confirmed ?Type amitriptyline 25 mg tablet 25 mg PO .HS 10/02/22 07/17/23 History amlodipine 10 mg tablet 10 mg PO .QD 10/02/22 07/17/23 History azelastine 137 mcg-fluticasone 50 1 spray intranasal .QD 10/02/22 07/17/23 History mcg/spray nasal spray bisoprolol 10 1 tab PO .QD 10/02/22 07/17/23 History mg-hydrochlorothiazide 6.25 mg tablet calcium carbonate 500 mg-vitamin 1 tab PO BID 10/02/22 07/17/23 History D3 5 mcg (200 unit) tablet (Oyster Shell Calcium-Vitamin D3) cetirizine 10 mg tablet 10 mg PO .QD 10/02/22 07/17/23 History cyanocobalamin (vitamin B-12) 1,000 mcg PO DAILY 10/02/22 07/17/23 History 1,000 mcg capsule diclofenac sodium 75 mg 75 mg PO BID 10/02/22 07/17/23 History tablet,delayed release folic acid 1 mg tablet 1 mg PO .QD 10/02/22 07/17/23 History gabapentin 300 mg capsule 300 mg PO TID 10/02/22 07/17/23 History halobetasol propionate 0.05 % applic topical BID 10/02/22 History topical cream hydrochlorothiazide 25 mg tablet 25 mg PO DAILY 10/02/22 07/17/23 History hyoscyamine sulfate 0.125 mg tablet 0.125 mg PO Q6H PRN dyspepsia 10/02/22 07/17/23 History methotrexate sodium 2.5 mg tablet 2.5 mg PO QWEEK 10/02/22 07/17/23 History multivitamin 1 tab PO DAILY 10/02/22 07/17/23 History sulindac 200 mg tablet 200 mg PO .QD 10/02/22 07/17/23 History tazarotene 0.1 % topical foam topical 10/02/22 History tizanidine 4 mg tablet 4 mg PO BID PRN muscle spasticity 10/02/22 07/17/23 History triamcinolone acetonide 0.1 % applic topical BID 10/02/22 History topical cream Allergies Allergy/AdvReac Type Severity Reaction Status Date / Time adalimumab [From Humira] Allergy Verified 07/17/23 08:17 morphine Allergy Verified 07/17/23 08:17 secukinumab [From Cosentyx] Allergy Verified 07/17/23 08:17 Exam Narrative Exam Narrative: diffuse pain throughout neck, shoulders, upper mid and lower back, and thighs. characteristics of fibromyalgia noted. Constitutional Documenting provider has reviewed patient's vital signs: yes Common normals: no apparent distress, oriented x3, healthy appearing, alert and well nourished General appearance: cooperative HENMT Common normals: normocephalic, hearing grossly normal bilaterally and moist oral mucous membranes Head and scalp: normocephalic Mouth: oral and palatal mucosa normal Eye Common normals: PERRL Pupil: PERRL Neck & C-Spine Common normals: full ROM General: normal visual inspection Cervical spine: pain with cervical ROM and paracervical muscle tenderness Other: positive spurlings radiculopathy to RUE strength 4/5 in RUE 5/5 in LUE Chest Common normals: inspection of chest normal Respiratory Common normals: normal respiratory effort, no retractions and no use of accessory muscles Back & Pelvis Thoracic spine/upper back: normal to inspection Lumbar spine/lower back: normal to inspection, ROM limited, pain with ROM and paraspinal muscle tenderness Sacroiliac joints: SI joints normal Extremity Common normals: normal to inspection and full ROM Neuro Common normals: oriented x3, CN's II-XII intact bilaterally, moves all extremities, no focal motor deficits, no sensory deficits noted and deep tendon reflexes 2+ bilaterally Sensorium/orientation: alert Cranial nerves: CN normal except as noted Speech: speech normal Gait (neuro): antalgic Motor exam: no movement abnormalities noted and strength abnormal Psych Common normals: mental status grossly normal, thought process normal, cooperative, affect normal, speech normal and activity/motor behavior normal Speech: normal speech Thought process: normal thought process Results Additional Findings Additional findings: If on a controlled substance or opioids, I have checked an OARRS report on this patient and there are no aberrancies noted in the prescribing history.??If on a controlled substance or opioid a drug screen was completed and reviewed within the last year, and if there has not been a drug screen completed we ordered one today to monitor higher risk, state monitored pain medication use. As part of providing excellent, safe, comprehensive care, the following was completed at our patient's visit: 1. A medication reconciliation and review to ensure accurate knowledge of current/active medications, including asking our patients to inform us about any [id number] medications or herbal remedies/nutritional supplements/alternative remedies. 2. A review to specifically ensure our patients have had annual screening for screening for depression, screening for tobacco use, and screening for unhealthy alcohol use. For concerning screenings had a discussion with the patient, provided patient education, and recommended follow-up with primary care provider when appropriate. If patient noted with a risk of falling, they received education on strength, gait, and balance training to prevent future risk of falling. Assessment and Plan Assessment and Plan (1) Cervical spinal stenosis: (2) Degenerative disc disease, cervical: (3) Cervical spondylosis: (4) Osteoarthritis: (5) Muscle spasm: (6) Lumbar spondylosis: (7) Fibromyalgia: Assessment and Plan: significant diffuse pain and tenderness throughout body, consider rotation to lyrica if no improvement on gabapentin Plan referral to Dr Singh for assessment of chronic neck pain and cervical stenosis recommend not restarting opioid therapy at this time with significant FM continue f/u with rheumatology f/u 1 month, rotate to lyrica if gabapentin 600mg AM 300mg afternoon 600mg HS not effective
== END 2023-08-02 09:01 | disposition home or self-care (01) ==
LOC: PM 09:01
PROVIDERS: PCP Family Medicine; Visit Provider Nurse Practitioner
DX: M48.02 Spinal stenosis, cervical region (principal); M50.30 Other cervical disc degeneration, unspecified cervical region; M47.812 Spondylosis without myelopathy or radiculopathy, cervical region; M62.838 Other muscle spasm; M47.816 Spondylosis without myelopathy or radiculopathy, lumbar region; M19.90 Unspecified osteoarthritis, unspecified site; M79.7 Fibromyalgia
CPT/HCPCS: G0463

== ENCOUNTER 2023-10-17 09:57 | Outpatient (OUT) | payer OTHER, SELFPAY ==
--- NOTE | 2023-10-17 10:15 | CT_ITS ---
The [address] [address] Patient Name: GLENDA VALENTE MRN: [id number] date: 1965 Sex: M Assigned Patient Location: CT Current Patient Location: CT Accession/Order Number: [id number] Exam Date: 10/17/2023 10:30 Report Date: 10/17/2023 15:37 At the request of: ZAIN FINE Procedure: CT abdomen pelvis wo con EXAMINATION: CT abdomen pelvis wo con HISTORY: Kidney Stones COMPARISON: CT abdomen pelvis 06/15/2020 TECHNIQUE: Axial, Coronal, and Sagittal images were obtained without and/or with IV contrast as indicated by examination type. Dose reduction techniques were achieved by using automated exposure control and/or adjustment of mA and/or kV according to patient size and/or use of iterative reconstruction technique. FINDINGS: LUNG BASES: No visible pulmonary or pleural disease. LIVER: No enlargement, atrophy, suspicious density, or significant focal lesion. BILIARY: No dilatation or calcification. PANCREAS: No lesion, fluid collection, or abnormal duct dilatation. SPLEEN: No enlargement or focal lesion. ADRENALS: No mass or enlargement. KIDNEYS: Multiple small and large nonobstructing stones bilaterally, largest is within the right kidney, 15 x 11 x 13 mm. Multiple rounded hypodensities bilaterally suspected to represent cysts. BOWEL/MESENTERY: Prior gastric bypass surgery. No visible mass, obstruction, or bowel wall thickening. AORTA/VASCULAR: No aneurysm or dissection. RETROPERITONEUM: No mass or adenopathy. LYMPH NODES: No adenopathy. URINARY BLADDER: 13 mm stone within urinary bladder. No bladder wall thickening or appreciable mass. PELVIC ORGANS: No visible mass. Pelvic organs appropriate for patient age. ABDOMINAL WALL: Small fat filled infraumbilical ventral hernia; no strangulation. BONES: Stable sclerotic foci within posterior right ilium, likely bone islands. OTHER: Negative. CT/CT abdomen pelvis wo con IMPRESSION: 1. Bilateral nephrolithiasis, significantly increased compared to prior study. No obstructing stones or ureteral stones. 2. Within the urinary bladder is a 13 mm stone; new since prior study. Electronically authenticated by: RAE DEJESUS Date: 10/17/2023 15:37
[2023-10-17 10:57] LABS: Prostate Specific Antigen Scrn 0.74 ng/mL (<=4.00)
== END 2023-10-17 09:58 | disposition home or self-care (01) ==
LOC: CT 09:58
PROVIDERS: PCP Family Medicine; Visit Provider Urology
DX: L40.50 Arthropathic psoriasis, unspecified (principal); M17.0 Bilateral primary osteoarthritis of knee; M19.031 Primary osteoarthritis, right wrist; M19.032 Primary osteoarthritis, left wrist; M16.0 Bilateral primary osteoarthritis of hip; M19.041 Primary osteoarthritis, right hand; M19.042 Primary osteoarthritis, left hand; M19.011 Primary osteoarthritis, right shoulder; M19.012 Primary osteoarthritis, left shoulder; M47.812 Spondylosis without myelopathy or radiculopathy, cervical region; M47.817 Spondylosis without myelopathy or radiculopathy, lumbosacral region; M75.41 Impingement syndrome of right shoulder; M75.42 Impingement syndrome of left shoulder; M50.30 Other cervical disc degeneration, unspecified cervical region; M65.9 Synovitis and tenosynovitis, unspecified; M86.9 Osteomyelitis, unspecified; M85.80 Other specified disorders of bone density and structure, unspecified site; L40.3 Pustulosis palmaris et plantaris; L70.9 Acne, unspecified; D53.9 Nutritional anemia, unspecified; L40.9 Psoriasis, unspecified; L40.0 Psoriasis vulgaris; D64.89 Other specified anemias; Z79.631 Long term (current) use of antimetabolite agent; Z79.899 Other long term (current) drug therapy; Z87.2 Personal history of diseases of the skin and subcutaneous tissue; Z87.442 Personal history of urinary calculi; R94.4 Abnormal results of kidney function studies; E55.9 Vitamin D deficiency, unspecified; L40.53 Psoriatic spondylitis; L40.51 Distal interphalangeal psoriatic arthropathy; N20.0 Calculus of kidney; Z12.5 Encounter for screening for malignant neoplasm of prostate
CPT/HCPCS: 36415; 74176; 82565; 84153; 84450; 84460; 85025; 85652; 86140; G0103

== ENCOUNTER 2023-10-17 10:40 | Outpatient (OUT) | payer OTHER, SELFPAY ==
[2023-10-17 11:10] LABS: Basophils Percent Auto 0.6 % (0.2-2.0); Eosinophils Absolute Auto 0.1 10^3/uL (0.0-0.7); Eosinophils Percent Auto 1.9 % (0.9-7.0); Hematocrit 40.8 % (42.0-54.0); Immature Granulocytes Abs Auto 0.02 10^3/uL (0.00-0.03); Immature Granulocytes Pct Auto 0.4 % (0.0-0.5); Lymphocytes Absolute Auto 1.3 10^3/uL (1.2-3.8); Lymphocytes Percent Auto 23.9 % (20.5-60.0); Mean Corpuscular HGB Conc 31.9 g/dL (29.9-35.2); Mean Corpuscular Hemoglobin 34.3 pg (25.9-34.0); Mean Corpuscular Volume 107.7 fL (80.0-94.0); Mean Platelet Volume 9.3 fL (9.5-13.5); Monocytes Absolute Auto 0.7 10^3/uL (0.3-0.8); Monocytes Percent Auto 12.5 % (1.7-12.0); Neutrophils Absolute Auto 3.2 10^3/uL (1.4-6.5); Neutrophils Percent Auto 60.7 % (43.0-75.0); Platelet Count 250 10^3/uL (150-450); Red Cell Distribution Width 13.3 % (11.0-15.0); White Blood Count 5.3 10^3/uL (4.0-11.0)
[2023-10-17 11:46] LABS: Alanine Aminotransferase 56 U/L (16-63); Aspartate Amino Transferase 15 U/L (15-37); C Reactive Protein <0.50 mg/dL (<=0.50); Estimated GFR (African America 54 (>=60); Estimated GFR (Non-African Ame 44 (>=60)
[2023-10-17 13:00] LABS: Red Blood Count 3.79 10^6/uL (4.70-6.10)
[2023-10-17 13:40] LABS: Erythrocyte Sedimentation Rate 5 mm/hr (<=20)
== END 2023-10-17 10:41 | disposition home or self-care (01) ==
LOC: LAB 10:42
PROVIDERS: PCP Family Medicine
DX: L40.50 Arthropathic psoriasis, unspecified (principal); M17.0 Bilateral primary osteoarthritis of knee; M19.031 Primary osteoarthritis, right wrist; M19.032 Primary osteoarthritis, left wrist; M16.0 Bilateral primary osteoarthritis of hip; M19.041 Primary osteoarthritis, right hand; M19.042 Primary osteoarthritis, left hand; M19.011 Primary osteoarthritis, right shoulder; M19.012 Primary osteoarthritis, left shoulder; M47.812 Spondylosis without myelopathy or radiculopathy, cervical region; M47.817 Spondylosis without myelopathy or radiculopathy, lumbosacral region; M75.41 Impingement syndrome of right shoulder; M75.42 Impingement syndrome of left shoulder; M50.30 Other cervical disc degeneration, unspecified cervical region; M65.9 Synovitis and tenosynovitis, unspecified; M86.9 Osteomyelitis, unspecified; M85.80 Other specified disorders of bone density and structure, unspecified site; L40.3 Pustulosis palmaris et plantaris; L70.9 Acne, unspecified; D53.9 Nutritional anemia, unspecified; L40.9 Psoriasis, unspecified; L40.0 Psoriasis vulgaris; D64.89 Other specified anemias; Z79.631 Long term (current) use of antimetabolite agent; Z79.899 Other long term (current) drug therapy; Z87.2 Personal history of diseases of the skin and subcutaneous tissue; Z87.442 Personal history of urinary calculi; R94.4 Abnormal results of kidney function studies; E55.9 Vitamin D deficiency, unspecified; L40.53 Psoriatic spondylitis; L40.51 Distal interphalangeal psoriatic arthropathy
CPT/HCPCS: 36415; 82565; 84450; 84460; 85025; 85652; 86140

== ENCOUNTER 2024-01-14 07:38 | Inpatient (IN) | payer OTHER, SELFPAY ==
[2024-01-14] VITALS (26 sets, daily range): BP systolic 116–154; BP diastolic 71–94; PULSE 85–107; TEMP 36.4–36.9; O2SAT 92–99; BMI 29.1; BMI 32.9
--- OUTSIDE RECORDS SUMMARY | 2024-01-14 07:48 | XMS_ITS | CCD ---
Author Organization [facility] Care Team Providers Care Storeroom Keeper Name Role Phone Rodrigo Luz Unavailable PILI ALLAN Surgeon Unavailable PILI ALLAN Attending Unavailable PILI ALLAN Admitting Unavailable [place] Procedure Practitioner Unavailab RODRIGO Proctor Referring Unavailable RODRIGO LUZ Primary Care Unavailable DANIELA MILIAN Surgeon Unavailable [place] Procedure Practitioner UnavailRodrigo Cannon MD Primary Care Provider Rodrigo Luz MD Primary Care Provider TRA VALE JR Attending Unavailable TRA VALE JR Referring Unavailable RODRIGO LUZ Primary Care Unavailable TRA VALE JR Attending Unavailable TRA VALE JR Referring Unavailable RODRIGO LUZ Primary Care Unavailable Tania Neal Unavailable TRA VALE Admitting Unavailable TRA VALE Attending Unavailable AREN ., DR RODRIGO Sharma Primary Care Unavailable TRA VALE Consulting Unavailable SOLANO ., DR PAXTON Jarrett Admitting Unavailable SOLANO ., DR PAXTON Jarrett Attending Unavailable LUZ ., DR RODRIGO Sharma Primary Care Unavailable KATHE .FRACISCO Consulting Unavailable LUZ ., DR RODRIGO Sharma Primary Care Unavailable NGUYỄN ., MR DOAN Consulting Unavailable RUSTY ., JG Admitting Unavailable RUSTY ., JG Attending Unavailable TRA ALDRIDGE Consulting Unavailable TRA VALE Admitting Unavailable TRA VALE Attending Unavailable LUZ ., DR RODRIGO Sharma Primary Care Unavailable TRA VALE Consulting Unavailable TRA VALE Admitting Unavailable TRA VALE Attending Unavailable LUZ ., DR RODRIGO Sharma Primary Care Unavailable TRA VALE Consulting Unavailable LAKSHMIPATHY ., NARENDRANATH Admitting Sherly vailable LAKSHMIPATHY ., AMI Attending Sherly vailable LUZ ., DR RODRIGO Sharma Primary Care Unavailable LAKSHMIPATHY ., NARENDSAMIATH Consulting Sherly vailable SOLANO ., DR PAXTON Jarrett Admitting Unavailable SOLANO ., DR PAXTON Jarrett Attending Unavailable LUZ ., DR RODRIGO Sharma Primary Care Unavailable SOLANO ., DR PAXTON Jarrett Consulting Unavailable CALLIE, LORI Consulting Unavailable GUSTAVO, ELEN Admitting Unavailable GUSTAVO, ELEN Attending Unavailable LUZ ., DR RODRIGO Sharma Primary Care Unavailable FELTBEAR GATES Consulting Unavailable STAINBROOK, TRA Admitting Unavailable STAINBROOK, TRA Attending Unavailable LUZ ., DR RODRIGO Sharma Primary Care Unavailable STAINBROOK, TRA Consulting Unavailable STAINBROOK, TRA Admitting Unavailable STAINBROOK, TRA Attending Unavailable LUZ ., DR RODRIGO Sharma Primary Care Unavailable STAINBROOK, TRA Consulting Unavailable STAINBROOK, TRA Admitting Unavailable STAINBROOK, TRA Attending Unavailable LUZ ., DR RODRIGO Sharma Primary Care Unavailable STAINBROOK, TRA Consulting Unavailable HALKER ., KEESHA Admitting Unavailable HALKER ., KEESHA Attending Unavailable LUZ ., DR RODRIGO Sharma Primary Care Unavailable LAKSHMIPATHY ., NARENDRANATH Admitting Sherly vailable LAKSHMIPATHY ., AMI Attending Sherly vailable LUZ ., DR RODRIGO Sharma Primary Care Unavailable LAKSHMIPATHY ., NARENDRANATH Consulting Sherly vailable LAKSHMIPATHY ., NARENDRANATH Admitting Sherly vailable LAKSHMIPATHY ., NARERI Attending Sherly vailable LUZ ., DR RODRIGO Sharma Primary Care Unavailable LAKSHMIPATHY ., AMI Consulting Sherly vailable HALKER ., KEESHA Consulting Unavailable SOLANO ., DR PAXTON Jarrett Admitting Unavailable SOLANO ., DR PAXTON Jarrett Attending Unavailable LUZ ., DR RODRIGO Sharma Primary Care Unavailable ARCHULETA ., FRACISCO Consulting Unavailable LUZ ., DR RODRIGO Sharma Admitting Unavailable LUZ ., DR RODRIGO Sharma Attending Unavailable LUZ ., DR RODRIGO Sharma Primary Care Unavailable LUZ ., DR RODRIGO Sharma Consulting Unavailable STAINBROOK, TRA Admitting Unavailable STAINBROOK, TAR Attending Unavailable LUZ ., DR RODRIGO Sharma Primary Care Unavailable STAINBROOK, TRA Consulting Unavailable LUZ ., DR RODRIGO Sharma Primary Care Unavailable KARO, PAT Admitting Unavailable KARO, PAT Attending Unavailable KARO, PAT Consulting Unavailable ARCHULETA ., FRACISCO Admitting Unavailable ARCHULETA ., FRACISCO Attending Unavailable LUZ ., DR RODRIGO Sharma Primary Care Unavailable LUZ ., DR RODRIGO Sharma Primary Care Unavailable ARCHULETA ., FRACISCO Admitting Unavailable ARCHULETA ., FRACISCO Attending Unavailable LUZ ., DR RODRIGO Sharma Admitting Unavailable LUZ ., DR RODRIGO Sharma Attending Unavailable LUZ ., DR RODRIGO Sharma Primary Care Unavailable LUZ ., DR RODRIGO Sharma Consulting Unavailable SOLANO ., DR PAXTON Jarrett Admitting Unavailable SOLANO ., DR PAXTON Jarrett Attending Unavailable LUZ ., DR RODRIGO Sharma Primary Care Unavailable ARCHULETA ., FRACISCO Consulting Unavailable Rodrigo Brink. Primary Care Physician [phone] RODRIGO LUZ Primary Care Unavailable LUZ, RODRIGO Primary Care Unavailable LUZ, RODRIGO Primary Care Unavailable LUZ, RODRIGO Primary Care Unavailable Luz , Rodrigo Primary Care Provider Rodrigo Brink MD Primary Care Provider SELF, SELF Referring Unavailable RODRIGO BRINK Primary Care Unavailable ELA VIDALES, TRA Vasquez Attending Unavaila ble SELF, SELF Referring Unavailable AREN, RODRIGO Primary Care Unavailable ELA VIDALES, TRA Vasquez Attending Unavaila ble LUZ, RODRIGO Primary Care Unavailable Rodrigo Brink. Attending Unavailable Murali Rodrigo E. Attending Unavailable Murali Rodrigo E. Attending Unavailable Murali Rodrigo E. Attending Unavailable Murali Rodrigo E. Attending Unavailable Murali Rodrigo E. Attending Unavailable Murali Rodrigo E. Attending Unavailable Murali Rodrigo E. Attending Unavailable Yusuf POLLARD Attending Unavailable Murali Rodrigo E. Referring Unavailable Yusuf POLLARD Attending Unavailable Murali Rodrigo E. Referring Unavailable Rodrigo Brink. Attending Unavailable Murali Rodrigo E. Referring Unavailable Murali Rodrigo E. Admitting Unavailable Rodrigo Brink Attending Unavailable Allergies Allergy Classification Reported Allergen(s) Allergy Type Date of Onset Reaction(s) Facility adalimumab (1 source) adalimumab; Translations: [HUMIRA] Drug Allergy 8 [facility] Repository Opioid Agonists (1 source) Morphine; Translations: [MORPHINE] Drug Allergy 8 [facility] Repository secukinumab (1 source) secukinumab; Translations: [COSENTYX] Drug Allergy 8 [facility] Repository (20 sources) adalimumab; Translations: [adalimumab] Drug Allergy rash [facility] Work Phone: (20 sources) Morphine; Translations: [morphine] Drug Allergy 1 Unknown (qualifier value) [facility] Work Phone: (20 sources) secukinumab; Translations: [secukinumab] Drug Allergy rash [facility] Work Phone: (1 source) adalimumab Drug Allergy [facility] Repository (1 source) Morphine Drug Allergy [facility] Repository (1 source) secukinumab Drug Allergy [facility] Repository Medications Current Medications Medication Drug Class(es) Dates Sig (Normalized) Sig (Original) amitriptyline hydrochloride 25 mg oral tablet (11 sources) Tricyclic Antidepressant Start: 09-20-2023 take 2 tablets by mouth at bedtime amitriptyline 25 mg Tab See Instructions, TAKE 2 TABLETS BY MOUTH AT BEDTIME, # 60 tab(s), Refills(s) 5, Pharmacy: [facility]/pharmacy #[id number], 180.3, cm, 09/20/23 9:40:00 EDT, Height/Length Dosing, 113.4, kg, 09/20/23 9:40:00 EDT, Weight Dosing Start Date: 09/20/23 Status: Ordered Start: 06-20-2020 take 2 tablets by mo uth at bedtime amitriptyline 25 mg Tab See Instructions, TAKE 2 TABLETS BY MOUTH AT BEDTIME, # 60 tab(s), Refills(s) 5, Pharmacy: [facility]/pharmacy #[id number], 180.3, cm, 05/17/23 9:51:00 EST, Height/Length Dosing, 105.1, kg, 05/17/23 9:51:00 EST, Weight Dosing Start Date: 05/17/23 Status: Ordered Amitriptyline HC l Active amLODIPine 5 mg oral tablet (20 sources) Dihydropyridine Calcium Channel Colette Start: 09-20-2023 take 1 tablet by mouth once daily amLODIPine 5 mg Tab 5 mg = 1 tab(s), Oral, Daily, # 90 tab(s), Refills(s) 1, Pharmacy: [facility]/pharmacy #[id number], 180.3, cm, 09/20/23 9:40:00 EDT, Height/Length Dosing, 113.4, kg, 09/20/23 9:40:00 EDT, Weight Dosing Start Date: 09/20/23 Status: Ordered Start: 07-26-2022 take 1 tablet by eloy th once daily amLODIPine 5 mg Tab 5 mg = 1 tab(s), Oral, Daily, # 90 tab(s), Refills(s) 3, Pharmacy: [facility]/pharmacy #[id number] Start Date: 07/26/22 Status: Ordered take 1 tablet by eloy th once daily amLODIPine 10 MG Tab tablet amlodipine 10 mg tablet Take 1 tablet every day by oral route. Active amLODIPine Benzoate (1 source) amLODIPine Benzoate Active Bisoprolol (1 source) beta-Adrenergic Colette Bisoprolol Fumarate Active bisoprolol fumarate 10 mg / hydroCHLOROthiazide 6.25 mg oral tablet (10 sources) Thiazide Diuretic, beta-Adrenergic Colette Start: 09-20-19 take 1 tablet by mouth once daily bisoprolol-hydroch lorothiazide 10 mg-6.25 mg Tab 1 tab(s), Oral, Daily, 90 tab(s), Refill(s) 1, [facility]/pharmacy #[id number], 180.3, cm, 09/20/23 9:40:00 EDT, Height/Length Dosing, 113.4, kg, 09/20/23 9:40:00 EDT, Weight Dosing Start Date: 09/20/23 Status: Ordered Start: 07-09-2020 take 1 tablet by eloy once daily bisoprolol-hydrochlorothiazide 10 mg-6.2 5 mg Tab 1 tab(s), Oral, Daily, 90 tab(s), Refill(s) 1, [facility]/pharmacy #[id number], 180.3, cm, 03/05/23 14:04:00 EST, Height/Length Dosing, 102, kg, 03/05/23 14:04:00 EST, Weight Dosing Start Date: 03/13/23 Status: Ordered 24 hr buPROPion hydrochloride 300 mg extended release oral tablet (4 sources) Aminoketone Start: 08-16-2023 take 1 tablet by mouth every twenty-four hours buPROPion 300 mg/24 hours ER Tab 300 mg = 1 tab(s), Oral, q24hr, # 90 tab(s), Refills(s) 1, Pharmacy: [facility]/pharmacy #[id number], 180.3, cm, 08/16/23 13:16:00 EDT, Height/Length Dosing, 108.4, kg, 08/16/23 13:16:00 EDT, Weight Dosing Start Date: 08/16/23 Status: Ordered Start: 01-12-2023 take 1 tablet by eloy th every twenty-four hours buPROPion 150 mg/24 hours XL Tab 150 mg = 1 tab(s), Oral, q24hr, # 90 tab(s), Refills(s) 1, Pharmacy: [facility]/pharmacy #[id number], 180.3, cm, 11/15/22 16:44:00 EDT, Height/Length Dosing, 106.5, kg, 11/15/22 16:44:00 EDT, Weight Dosing Start Date: 01/12/23 Status: Ordered Start: 10-23-2022 take 1 tablet by eloy th every twenty-four hours buPROPion 150 mg/24 hours XL Tab 150 mg = 1 tab(s), Oral, q24hr, # 90 tab(s), Refills(s) 0, Pharmacy: [facility]/pharmacy #[id number], 180.3, cm, 10/20/22 8:11:00 EDT, Height/Length Dosing, 109.1, kg, 10/20/22 8:11:00 EDT, Weight Dosing Start Date: 10/23/22 Status: Ordered calcium carbonate 1250 mg / cholecalciferol 200 unt oral tablet (14 sources) Vitamin D Start: 08-26-2019 take 1 tablet by mouth twice daily Oyster Shell Calcium w/D 500-5 MG-MCG tablet TAKE 1 TABLET BY MOUTH TWICE A DAY 60 tablet 5 02/16/2023 Active cetirizine hydrochloride 10 mg oral tablet (20 sources) Histamine-1 Receptor Antagonist Start: 08-16-2023 take 1 tablet by mouth once daily cetirizine 10 mg Tab See Instructions, TAKE 1 TABLET BY MOUTH EVERY DAY, # 90 tab(s), Refills(s) 1, Pharmacy: [facility]/pharmacy #[id number], 180.3, cm, 08/16/23 13:16:00 EDT, Height/Length Dosing, 108.4, kg, 08/16/23 13:16:00 EDT, Weight Dosing Start Date: 08/16/23 Status: Ordered Start: 04-15-2018 take 1 tablet by eloy th once daily cetirizine 10 mg Tab See Instructions, TAKE 1 TABLET BY MOUTH EVERY DAY, # 90 tab(s), Refills(s) 0, Pharmacy: [facility] ST[id number], 180.3, cm, 05/17/23 9:51:00 EST, Height/Length Dosing, 105.1, kg, 05/17/23 9:51:00 EST, Weight Dosing Start Date: 05/31/23 Status: Ordered ZyrTE Active cholecalciferol 0.25 mg oral capsule (20 sources) Vitamin D Start: 2023 take 1 capsule by mouth every week [facility] Vitamin D3 250 MCG (30979 UT) capsule capsule Indications: Vitamin D deficiency take 1 capsule by mouth one time per week 4 capsule 14 2023 Active Start: 05-18-2022 take 1 capsule by mo uth every week Cholecalciferol (Vitamin D3) 250 MCG (22926 UT) capsule Indications: Vitamin D deficiency TAKE 1 CAPSULE BY MOUTH ONE TIME PER WEEK 4 capsule 14 05/18/2022 Active Start: 05-11-2021 take 1 capsule by mo uth every week Cholecalciferol ([facility] Vitamin D3) 250 MCG (62280 UT) capsule capsule Indications: Vitamin D deficiency TAKE 1 CAPSULE BY MOUTH ONE TIME PER WEEK 4 capsule 14 05/11/2021 Active Start: 04-28-2020 take 1 capsule by mo uth every week Cholecalciferol ([facility] Vitamin D3) 250 MCG (43916 UT) capsule capsule Indications: Vitamin D deficiency TAKE 1 CAPSULE BY MOUTH ONE TIME PER WEEK 4 capsule 14 04/28/2020 Active Start: 04-21-2019 take 1 capsule by mo uth every week Cholecalciferol ([facility] VITAMIN D3) 250 MCG (10277 UT) Cap capsule Indications: Vitamin D deficiency TAKE 1 CAPSULE BY MOUTH ONCE A WEEK 4 capsule 14 04/21/2019 Active Start: 09-03-2018 End: 09-03-2018 take 2 capsules by mouth once Cholecalciferol (MAXIMUM D3) 20281 units Cap Indications: Vitamin D deficiency 2 po one day a week 10 capsule 11 09/03/2018 Active Start: 04-17-2018 End: 09-03-2018 take 1 capsule by mouth once Cholecalciferol (MAXIMUM D3) 30657 units Cap Indications: Vitamin D deficiency 1 po one day a week 5 capsule 04/17/2018 09/03/2018 Discontinued clobetasol propionate 0.5 mg/ml topical cream (8 sources) Corticosteroid Start: 04-11-2023 clobetasol 0.0 5 % Cream Indications: Rash APPLY TO AFFECTED AREAS TWICE A DAY FOR 2 WEEKS 15 g 04/11/2023 Active Start: 07-03-2022 clobetasol 0.0 5 % Cream Indications: Rash APPLY TO AFFECTED AREAS TWICE A DAY FOR 2 WEEKS 15 g 07/03/2022 Active Start: 10-31-2021 clobetasol 0.0 5 [...] areas bid for 2 weeks. 1 Tube 10/09/2019 Active Clobetasol 17 Pr opionate Active Clobetasol & Clobetasol Emul (1 source) Clobetasol & Katelyn betasol Emul Active cyclobenzaprine hydrochloride 10 mg oral tablet (4 sources) Muscle Relaxant Start: take 1 tablet by mouth three times daily as needed for muscle spasms cyclobenzaprine 10 mg Tab 10 mg = 1 tab(s), Oral, TID, PRN for spasm, # 30 tab(s), Refills(s) 0 Start Date: 06/15/22 Status: Ordered Diclofenac (1 source) Nonsteroidal Anti-inflammatory Drug Diclofenac Active folic acid 1 mg oral tablet (20 sources) Start: End: take 1 tablet by mouth once daily Folic acid 1 MG tablet Indications: Psoriatic arthritis , Primary osteoarthritis of both knees , Osteoarthritis of both wrists, unspecified osteoarthritis type , Osteoarthritis of both hips, unspecified osteoarthritis type , Osteoarthritis of both hands, unspecified osteoarthritis type , Osteoarthritis of both glenohumeral joints , Osteoarthritis of both acromioclavicular joints , Osteoarthritis of cervical spine, unspecified spinal osteoarthritis complication status , Lumbosacral spondylosis without myelopathy , Impingement syndrome of both shoulders , DDD (degenerative disc disease), cervical , SAPHO syndrome , Macrocytic anemia , Psoriasis , Plaque psoriasis , Hyperchromic anemia , Methotrexate, senior care, current use , Long-term current use of high risk medication other than anticoagulant , History of psoriatic arthritis , History of kidney stones , Abnormal renal function test , Vitamin D deficiency , Psoriatic spondylitis , 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 1 po q day 90 tablet 3 07/31/2023 Active Start: 08-29-2022 take 1 tablet by eloy th once daily Folic acid 1 MG tablet TAKE 1 TABLET BY MOUTH EVERY DAY 30 tablet 10 08/29/2022 Active Start: 09-26-2021 take 1 tablet [...] type , History of psoriatic arthritis , 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) , 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 , 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, 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, 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 , Long-term current use of [...] capsule (20 sources) Anti-epileptic Agent Start: 04-30-2023 gabapenti n 300 mg Cap See Instructions, Take 2 orally in the am, one in the afternoon and one at bedtime, # 60 cap(s), Refills(s) 2, Pharmacy: [id number], 180.3, cm, 03/05/23 14:04:00 EST, Height/Length Dosing, 102, kg, 03/05/23 14:04:00 EST, Weight Dosing Start Date: 04/30/23 Status: Ordered Start: 04-30-2023 take 1 capsule by [facility] twice daily gabapentin 300 mg Cap See Instructions, TAKE 1 CAPSULE BY MOUTH TWICE A DAY, # 60 cap(s), Refills(s) 2, Pharmacy: [id number], 180.3, cm, 03/05/23 14:04:00 EST, Height/Length Dosing, 102, kg, 03/05/23 14:04:00 EST, Weight Dosing Start Date: 04/30/23 Status: Ordered Start: 11-15-2022 take 1 capsule by [facility] twice daily gabapentin 300 mg Cap 300 mg = 1 cap(s), Oral, BID, # 180 cap(s), Refills(s) 0, [id number] 180.3, cm, 11/15/22 16:44:00 EDT, Height/Length Dosing, 106.5, kg, 11/15/22 16:44:00 EDT, Weight Dosing Start Date: 11/15/22 Status: Ordered Start: 10-30-2022 take 1 capsule by [facility] twice daily gabapentin 300 mg Cap 300 mg = 1 cap(s), Oral, BID, # 60 cap(s), Refills(s) 0, Pharmacy: [facility]/pharmacy #[id number], 180.3, cm, 10/20/22 8:11:00 EDT, Height/Length Dosing, 109.1, kg, 10/20/22 8:11:00 EDT, Weight Dosing Start Date: 10/30/22 Status: Ordered Start: 03-18-2018 take 1 capsule by [facility] once daily in the morning gabapentin 300 MG Cap capsule Take 1 capsule by mouth daily every morning. 0 03/18/2018 Active Gabapentin Activ e halobetasol propionate 0.5 mg/ml topical cream (20 sources) Corticosteroid Start: 07-29-2019 halobetasol 0. 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, senior care, current use , Long-term current use of high risk medication other than anticoagulant , 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 , 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) , [...] disease), cervical Use as directed 50 g 07/29/2019 Active Start: 01-07-2019 End: 01-07-2019 halobetasol 0.05 % Cream Ind ications: Psoriatic arthritis , Psoriatic spondylitis , Psoriasis , Plaque psoriasis , Anemia, unspecified type , 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 Active hyoscyamine sulfate 0.125 mg oral tablet (6 sources) Start: 2020 take 1 tablet by mouth every six hours as needed for pain hyoscyamine 0.125 MG tablet TAKE 1 TABLET BY MOUTH EVERY 6 HOURS NEEDED FOR ABDOMINAL PAIN 06/13/2020 Active ipratropium bromide 0.021 mg/actuat metered dose nasal spray (5 sources) Anticholinergic Start: 2023 Start: 07-05-2022 Ipratropium Brom gabriele Active 1 ml ixekizumab 80 mg/ml auto-injector (9 sources) Interleukin-17A Antagonist Start: 11-17-2021 Taltz Autoinjector 8 0 mg/mL subcutaneous solution mg, SubCutaneous, q4wk, Refills(s) 0 Start Date: 06/15/22 Status: Ordered José Miguel Active Meclizine (1 source) Antiemetic Meclizine HCl Ac tive methotrexate 2.5 mg oral tablet (20 sources) Folate Analog Metabolic Inhibitor Start: take 7 tablets by mouth every week methotrexate 2.5 MG tablet TAKE 7 TABLETS BY MOUTH ONE TIME PER WEEK 28 tablet 7 06/04/2023 Active Start: 10-04-2022 take 7 tablets by mo uth every [...] Active Start: 10-29-2019 take 7 tablets by ar ut every week methotrexate 2.5 MG tablet TAKE 7 TABLETS BY MOUTH ONCE A WEEK 28 tablet 7 10/29/2019 Active Start: 03-12-2019 take 7 tablets by mo ut every week methotrexate 2.5 MG tablet TAKE 7 TABLETS BY MOUTH ONCE A WEEK 28 tablet 7 03/12/2019 Active Start: 09-03-2018 take 7 tablets by mouth once m ethotrexate 2.5 MG Tab Indications: Psoriatic arthritis , 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 , Psoriatic spondylitis , History of psoriatic arthritis , 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) , skilled nursing current use of systemic steroids , Long-term current use of high risk medication other than anticoagulant , 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, 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, 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 use , Noncompliance , Patient non [...] , Psoriasis , Anemia, unspecified type , skilled nursing current use of non-steroidal anti-inflammatories (NSAID) , 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 , Methotrexate, 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, current use , Long-term current use of [...] as directed for 6 days May, Active Oyster Shell Calcium with Vitamin D 500 mg-200 intl units oral tablet (1 source) Start: 09-20-2023 take 1 tablet by mouth twice daily Oyster Shell Calcium with Vitamin D 500 mg-200 intl units oral tablet 1 tab(s), Oral, BID, 90 tab(s), Refill(s) 1, [facility]/pharmacy #[id number], 180.3, cm, 09/20/23 9:40:00 EDT, Height/Length Dosing, 113.4, kg, 09/20/23 9:40:00 EDT, Weight Dosing Start Date: 09/20/23 Status: Ordered predniSONE 1 mg oral tablet (20 sources) Start: 01-07-2019 End: 05-06-2019 take 4 tablets by mouth once in the morning predniSONE 1 MG Tab tablet Indications: Psoriatic arthritis , Psoriatic spondylitis , Psoriasis , Plaque psoriasis , Anemia, unspecified type , Methotrexate, senior care, current use , Long-term current use of high risk medication other than anticoagulant , 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 , skilled nursing current use of non-steroidal anti-inflammatories (NSAID) , [...] spondylitis , History of psoriatic arthritis , skilled nursing current use of non-steroidal anti-inflammatories (NSAID) , skilled nursing current use of systemic steroids , Long-term current use of high risk medication other than anticoagulant , 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, 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, current use , Noncompliance , Patient non [...] , Psoriasis , Anemia, unspecified type , 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) , 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 , Methotrexate, 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, current use , Long-term current use of [...] type , History of psoriatic arthritis , 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) , 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 , Methotrexate, 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, current use , Long-term current use of [...] 05/03/2018 Discontinued sildenafil 25 mg oral tablet (4 sources) Phosphodiesterase 5 Inhibitor Start: 06-15-2022 take 1 tablet by mouth once daily as needed sildenafil 25 mg Tab 25 mg = 1 tab(s), Oral, Daily, PRN for erectile dysfunction, Refills(s) 0 Start Date: 06/15/22 Status: Ordered tamsulosin hydrochloride 0.4 mg oral capsule (1 source) alpha-Adrenergic Colette Start: 10-01-2023 take 1 capsule by mouth twice daily tamsulosin 0.4 mg Cap 0.4 mg = 1 cap(s), Oral, BID, # 60 cap(s), Refills(s) 11, Pharmacy: [facility]/pharmacy #[id number], 180, cm, 10/01/23 13:04:00 EDT, Height/Length Dosing, 104.7, kg, 10/01/23 13:04:00 EDT, Weight Dosing Start Date: 10/01/23 Status: Ordered triamcinolone acetonide 0.001 mg/mg topical ointment (20 sources) Corticosteroid Start: 07-09-2023 triamcinolone 0.1 % Ointment ointment Indications: Psoriatic arthritis , Psoriatic spondylitis , Psoriasis , Plaque psoriasis , Anemia, unspecified type , Methotrexate, senior care, current use , Long-term current use of high risk medication other than anticoagulant , 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 , 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) , [...] , DDD (degenerative disc disease), cervical apply to affected area twice a day as needed 80 g 11 07/09/2023 Active Start: 05-08-2023 triamcinolone 0.1 % Cream cream Indications: Psoriatic arthritis , Psoriatic spondylitis , Psoriasis , Plaque psoriasis , Anemia, unspecified type , Methotrexate, senior care, current use , Long-term current use of high risk medication other than anticoagulant , skilled nursing current use of systemic steroids , skilled nursing current use of non-steroidal anti-inflammatories (NSAID) , [...] , DDD (degenerative disc disease), cervical apply to affected area twice a day as needed 45 g 3 05/08/2023 Active Start: 11-24-2022 triamcinolone 0.1 % Ointment ointment Indications: Psoriatic arthritis , Psoriatic spondylitis , Psoriasis , Plaque psoriasis , Anemia, unspecified type , Methotrexate, senior care, current use , Long-term current use of high risk medication other than anticoagulant , 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 , 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) , [...] psoriasis , Anemia, unspecified type , Methotrexate, 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, current use , Long-term current use of high risk medication other than anticoagulant , 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 , 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) , [...] psoriasis , Anemia, unspecified type , Methotrexate, senior care, current use , Long-term current use of high risk medication other than anticoagulant , 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 , 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) , [...] psoriasis , Anemia, unspecified type , Methotrexate, senior care, current use , Long-term current use of high risk medication other than anticoagulant , 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 , 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) , [...] psoriasis , Anemia, unspecified type , Methotrexate, 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, current use , Long-term current use of high risk medication other than anticoagulant , skilled nursing current use of systemic steroids , 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) , [...] psoriasis , Anemia, unspecified type , Methotrexate, senior care, current use , Long-term current use of high risk medication other than anticoagulant , skilled nursing current use of systemic steroids , 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) , [...] TWICE A DAY NEEDED 80 g 11 10/31/2021 Active Start: 02-11-2021 End: 07-12-2021 triamcinolone 0.1 % Cream cr [facility] Indications: Psoriatic arthritis , Psoriatic spondylitis , Psoriasis , Plaque psoriasis , Anemia, unspecified type , Methotrexate, 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, current use , Long-term current use of high risk medication other than anticoagulant , skilled nursing current use of systemic steroids , 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) , [...] psoriasis , Anemia, unspecified type , Methotrexate, senior care, current use , Long-term current use of high risk medication other than anticoagulant , skilled nursing current use of systemic steroids , skilled nursing current use of non-steroidal anti-inflammatories (NSAID) , [...] psoriasis , Anemia, unspecified type , Methotrexate, senior care, current use , Long-term current use of high risk medication other than anticoagulant , skilled nursing current use of systemic steroids , 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) , [...] cervical Apply bid PRB 1 Tube 11 12/30/2019 Active Start: 12-30-2019 triamcinolone 0.1 % Ointment ointment Indications: Psoriatic arthritis , Psoriatic spondylitis , Psoriasis , Plaque psoriasis , Anemia, unspecified type , Methotrexate, 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, current use , Long-term current use of high risk medication other than anticoagulant , 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 , skilled nursing current use of non-steroidal anti-inflammatories (NSAID) , [...] cervical Apply bid PRN 1 Tube 11 12/30/2019 Active Start: 01-07-2019 End: 01-07-2019 triamcinolone 0.1 % Cream cr ea Indications: Psoriatic arthritis , Psoriatic spondylitis , Psoriasis , Plaque psoriasis , Anemia, unspecified type , Methotrexate, 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, current use , Long-term current use of high risk medication other than anticoagulant , 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 , 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) , [...] psoriasis , Anemia, unspecified type , Methotrexate, 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, current use , Long-term current use of high risk medication other than anticoagulant , skilled nursing current use of systemic steroids , skilled nursing current use of non-steroidal anti-inflammatories (NSAID) , [...] Drug Class(es) Dates Sig (Normalized) Sig (Original) ##### (1 source) Start: 09-20-2023 ##### 4 EA, 0 Refill(s), TAKE 1 CAPSULE BY MOUTH ONE TIME PER WEEK Start Date: 09/20/23 Status: Ordered acetaminophen 325 mg / HYDROcodone bitartrate 5 [...] Start: 07-02-2022 fluticasone Na corina 0.05 mg/inh [place] See Instructions, 16 mL, Refill(s) 0, SPRAY 2 SPRAYS INTO EACH NOSTRIL DAILY, [id number] Start Date: 07/02/22 Status: Ordered Start: 04-15-2018 [...] 09/09/2019 Discontinued (Medication Reconciliation (suppress cancel msg)) memantine hydrochloride 5 mg oral tablet (1 source) [id number] Receptor Antagonist Start: 04-06-2018 End: 05-03-2018 memantine [...] stones , History of psoriatic arthritis , 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) , Long-term current use of high risk medication other than anticoagulant , Methotrexate, senior care, current use , Abnormal renal function test [...] , Psoriasis , Anemia, unspecified type , 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) , 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 , Methotrexate, 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, current use , Long-term current use of [...] , Psoriasis , Anemia, unspecified type , 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) , 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 , Methotrexate, 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, current use , Long-term current use of [...] , Psoriasis , Anemia, unspecified type , 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) , 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 , Methotrexate, senior care, current use , Long-term current use of [...] , Psoriasis , Anemia, unspecified type , skilled nursing current use of non-steroidal anti-inflammatories (NSAID) , 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 , Methotrexate, 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, current use , Long-term current use of [...] type , History of psoriatic arthritis , 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) , skilled nursing current use of systemic steroids , Methotrexate, 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, current use , Long-term current use of [...] Problem Date Documented Date Episodic/Chronic Anxiety disorders (4 sources) Anxiety 06-15-2022 Chronic Calculus of urinary tract (17 sources) History of calculus of kidney; Translations: [Personal history of urinary calculi] Onset: 2 Episodic Chronic kidney disease (2 sources) Chronic kidney disease stage 3A 11-20-2022 Chronic Coronary atherosclerosis and other heart disease (4 sources) Coronary atherosclerosis 06-15-2022 Chronic Deficiency and other anemia (20 sources) Anemia; Translations: [Anemia, unspecified] Onset: 9 Resolved: 2 05-03-2018 Episodic Deficiency and other anemia (7 sources) Macrocytic anemia; Translations: [Nutritional anemia, unspecified] Onset: 9 Resolved: 3 07-12-2021 Episodic Deficiency and other anemia (3 sources) Other specified anemias; Translations: [OTHER SPECIFIED ANEMIAS] Onset: 2 Episodic Deficiency and other anemia (2 sources) Nutritional anemia, unspecified; Translations: [Nutritional anemia, unspecified] Onset: 4 Episodic Essential hypertension (20 sources) Hypertensive disorder; [...] Onset: 9 05-03-2018 Other aftercare (20 sources) 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 methotrexate user; Translations: [Other senior care (current) drug therapy] Onset: 8 03-29-2018 Episodic Other aftercare (10 sources) Drug therapy finding; Translations: [Other 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 (current) drug therapy] Onset: 8 Episodic Other aftercare (3 sources) Other 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 (current) drug therapy; Translations: [OTH MANAGER MILITARY CURRENT DRUG THERAPY] Onset: 8 Episodic Other aftercare (1 source) 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 (current) use of non-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-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); Translations: [LONGTERM USE NSAID] Onset: 3 Episodic Other bone disease and musculoskeletal deformities [...] shoulders] Onset: 9 05-03-2018 Other hematologic conditions (3 sources) Macrocytosis 11-06-2022 Chronic Other inflammatory condition [...] injuries and conditions due to external causes (3 sources) Contusion 11-15-2022 Episodic Other nervous system disorders (5 sources) Chronic pain syndrome; Translations: [Chronic pain syndrome] Onset: 7 03-29-2018 Chronic Other nervous system disorders (1 source) Other chronic pain; Translations: [OTHER CHRONIC PAIN] Onset: 2 Chronic Other nutritional; endocrine; and metabolic disorders (20 sources) Morbid obesity; Translations: [Obesity, morbid, BMI 40.0-49.9] Onset: 9 05-03-2018 Chronic Other nutritional; endocrine; and metabolic disorders (5 sources) Body mass index 40+ - severely obese; Translations: [Morbid (severe) obesity due to excess calories] Onset: 9 05-03-2018 Chronic Other nutritional; endocrine; and metabolic disorders (4 sources) Obesity 06-15-2022 Chronic Other screening for suspected conditions (not mental disorders or infectious disease) (17 sources) Renal function tests abnormal; Translations: [Abnormal results of kidney function studies] Onset: 0 Resolved: 1 01-13-2020 Episodic Other skin disorders (3 sources) Acne, unspecified; Translations: [ACNE UNSPECIFIED] Onset: 8 Episodic Other skin disorders (3 sources) Personal history of diseases of the skin and subcutaneous tissue; Translations: [PERS HX DZ SKIN AND SUBCUTANEOUS TISSUE] Onset: 8 Episodic Other upper respiratory disease (4 sources) Allergic rhinitis 06-15-2022 Chronic Otitis media and related conditions (1 source) Dysfunction of eustachian tube 09-20-2023 Episodic Residual codes; unclassified (4 sources) Sleep disorder 06-15-2022 Episodic Screening and [...] [Neck pain] Onset: 8 03-29-2018 Episodic Syncope (2 sources) Syncope 05-17-2023 Episodic Unclassified (20 sources) Drug therapy finding; Translations: [Long-term current use of high risk medication other than anticoagulant] Onset: 8 03-29-2018 Unclassified (20 sources) Patient encounter status; Translations: [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)] Onset: [...] PAIN, UNSPECIFIED] Onset: 3 Unclassified (1 source) LONGTERM USE ANTIMETABOLITE AGENT; Translations: [MANAGER MILITARY USE ANTIMETABOLITE AGENT] Onset: 3 Unclassified (1 source) CONTACT W/AND (SUSP) EXPOS COVID-19; Translations: [CONTACT W/AND (SUSP) EXPOS COVID-19] Onset: 2 Unclassified (1 source) 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 (current) use of antimetabolite agent; Translations: [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 (current) use of antimetabolite agent] Onset: 8 Viral infection (2 sources) Disease caused by 2019-nCoV 03-05-2023 Past or Other Problems Problem Classification Problem Date Documented Date Episodic/Chronic Abdominal pain (4 sources) Unspecified abdominal pain; Translations: [UNSPECIFIED ABDOMINAL PAIN] Onset: 2 Episodic Chronic obstructive pulmonary disease and bronchiectasis (4 sources) Chronic obstructive pulmonary disease and bronchiectasis 06-15-2022 Deficiency and other anemia (1 source) Anemia, unspecified; Translations: [ANEMIA UNSPECIFIED] Onset: 2 Episodic Fever of unknown origin (4 sources) Fever, unspecified; Translations: [FEVER UNSPECIFIED] Onset: 2 Episodic Other aftercare (6 sources) Long-term current use of systemic steroid; Translations: [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 (current) use of systemic steroids] Onset: 8 Resolved: 0 Episodic Other aftercare (8 sources) Patient encounter status; Translations: [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 (current) use of non-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-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)] Onset: 8 Resolved: 3 Episodic Other aftercare (5 sources) Long-term current use of immunosuppressive drug; Translations: [Other 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 (current) drug therapy] Onset: 8 Resolved: 8 03-29-2018 Episodic Other aftercare (1 source) skilled nursing (current) use of systemic steroids; Translations: [MANAGER MILITARY USE OF SYSTEMIC STEROIDS] Onset: 2 Episodic Other bone disease and musculoskeletal deformities (5 sources) Disorder of skeletal system; Translations: [Disorder [...] 8 03-29-2018 Episodic Other non-traumatic joint disorders (5 sources) Pain in right knee; Translations: [Pain in joint, lower leg] Onset: 8 03-29-2018 Episodic Other non-traumatic joint disorders (4 sources) Bilateral chronic pain of upper limbs; Translations: [Pain in right shoulder] Onset: 8 03-29-2018 Episodic Other skin disorders (1 source) Nail dystrophy; Translations: [NAIL DYSTROPHY] Onset: 2 Episodic Residual codes; unclassified (20 sources) Noncompliance with treatment; Translations: [Patient's noncompliance with other medical treatment and regimen] Onset: 9 09-03-2018 Episodic Residual codes; unclassified (5 sources) Patient noncompliance - general; Translations: [Patient's noncompliance with other medical treatment and regimen] Onset: 9 09-03-2018 Episodic Unclassified (1 source) Psoriatic arthritis Unclassified (20 sources) Long-term current use of immunosuppressive drug; Translations: [skilled nursing current use of immunosuppressive drug] Onset: 8 Resolved: 8 03-29-2018 Unclassified (1 source) Psoriatic spondylitis Unclassified (20 sources) Long-term current use of systemic steroid; Translations: [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] Onset: 8 Resolved: 0 03-29-2018 Unclassified (1 source) 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 Unclassified (1 source) LOW BACK PAIN, UNSPECIFIED; Translations: [LOW BACK PAIN, UNSPECIFIED] Onset: 3 Unclassified (1 source) 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 (current) use of antimetabolite agent; Translations: [skilled nursing (current) use of antimetabolite agent] Onset: 4 Results Test Name Value Interpretation Reference Range Facil ity Ambulatory Visit Summaryon 0 12-25-2023 Ambulatory Visit Summary Ambulatory Visit Summary GLENDA BUCKLEY :1965 Visit Date:12/25/2023 Ambulatory Visit Instructions Your Diagnosis Acute URI Your Care Team Attending Physician - Rodrigo Brink MD Primary Care Physician - Rodrigo Brink MD This Is Your Medications List amoxicillin (amoxicillin 500 mg Cap) fluticasone nasal (Flonase Allergy Relief 50 mcg/inh nasal spray) Contact prescribing physician if questions or concerns Misc Prescription (#####) amitriptyline (amitriptyline 25 mg Tab) amlodipine (amLODIPine 5 mg Tab) bisoprolol-hydroch lorothiazide (bisoprolol-hydroc hlorothiazide 10 mg-6.25 mg Tab) buPROPion (buPROPion 300 mg/24 hours ER Tab) calcium-vitamin D (Oyster Shell Calcium with Vitamin D 500 mg-200 intl units oral tablet) cetirizine (cetirizine 10 mg Tab) cyclobenzaprine (cyclobenzaprine 10 mg Tab) gabapentin (gabapentin 300 mg Cap) ipratropium nasal (ipratropium Nasal 0.03% [place]) ixekizumab (Taltz Autoinjector 80 mg/mL subcutaneous solution) sildenafil (sildenafil 25 mg Tab) tamsulosin (tamsulosin 0.4 mg Cap) Procedures Performed Appendectomy, CABG (Coronary artery bypass grafting) planned, Inguinal hernia. Discharge Vitals Temperature (Oral) 36.8 ?C Heart Rate (Peripheral) 78 Respiratory Rate 16 Blood Pressure 112/76 Height 180 cm Height 71 in Weight 116.9 kg Weight 257.18 lb BMI 36.08 What to do next Scheduled Follow-Up Appointments Sunday 9:15 AM EDT With: Rodrigo Brink MD Where: [address] [address]23 10:00 AM EST With: Rodrigo Brink MD Where: [address] [address]- Medications What How Much When Why Instructions New amoxicillin (amoxicillin 500 mg Cap) 1 Capsules By Mouth Every 12 hours Acute URI Pickup at [facility]/pharmacy #[id number] New fluticasone nasal (Flonase Allergy Relief 50 mcg/ inh nasal spray) 1 Sprays Nasal Inhalation Every day Pickup at [facility]/pharmacy #[id number] Unchanged amitriptyline (amitriptyline 25 mg Tab) See instructions TAKE 2 TABLETS BY MOUTH AT BEDTIME Contact prescribing physician if questions or concerns Unchanged amlodipine (amLODIPine 5 mg Tab) 1 Tablets By Mouth Every day Contact prescribing physician if questions or concerns Unchanged bisoprolol-hydroch lorothiazide (bisoprolol-hydroc hlorothiazide 10 mg-6.25 mg Tab) 1 Tablets By Mouth Every day Contact prescribing physician if questions or concerns Unchanged buPROPion (buPROPion 300 mg/ 24 hours ER Tab) See instructions TAKE 1 TABLET BY MOUTH EVERY DAY Contact prescribing physician if questions or concerns Unchanged calcium-vitamin D (Oyster Shell Calcium with Vitamin D 500 mg-200 intl units oral tablet) See instructions TAKE 1 TABLET BY MOUTH TWICE A DAY Contact prescribing physician if questions or concerns Unchanged cetirizine (cetirizine 10 mg Tab) See instructions TAKE 1 TABLET BY MOUTH EVERY DAY Contact prescribing physician if questions or concerns Unchanged cyclobenzaprine (cyclobenzaprine 10 mg Tab) 1 Tablets By Mouth 3 times a day as needed for for spasm Contact prescribing physician if questions or concerns Unchanged gabapentin (gabapentin 300 mg Cap) See instructions Take 2 orally in the am, one in the afternoon and one at bedtime Contact prescribing physician if questions or concerns Unchanged ipratropium nasal (ipratropium Nasal 0.03% [place]) See instructions USE 2 SPRAYS IN EACH NOSTRIL 3 TIMES DAILY Contact prescribing physician if questions or concerns Unchanged ixekizumab (Taltz Autoinjector 80 mg/ mL subcutaneous solution) Subcutaneous Every 4 weeks Contact prescribing physician if questions or concerns Unchanged Misc Prescription (#####) 0 4 EA, 0 Refill(s), TAKE 1 CAPSULE BY MOUTH ONE TIME PER WEEK Contact prescribing physician if questions or concerns Unchanged sildenafil (sildenafil 25 mg Tab) 1 Tablets By Mouth Every day as needed for for erectile dysfunction Contact prescribing physician if questions or concerns Unchanged tamsulosin (tamsulosin 0.4 mg Cap) 1 Capsules By Mouth 2 times a day Contact prescribing physician if questions or concerns Pharmacy Information [id number]: [address], [place] [phone] Allergies morphine (Unknown) Problems Ongoing - Any problem that you are currently receiving treatment for. Acute URI Allergic rhinitis Anemia Anxiety Atherosclerotic heart disease of [place] coronary artery with angina pectoris Contusion COVID-19 Essential hypertension Eustachian tube dysfunction Fatigue Kidney stones Macrocytosis Obesity due to excess calories Psoriasis arthropathica Screening PSA (prostate specific antigen) Sleep disorder Spasm of back muscles Stage 3a chronic kidney disease (CKD) Syncope Vitamin D deficiency Historical - (more content not included)... Normal [facility] Family Medicine Office/Clini c Noteon 12-25-2023 Family Medicine Office/Clinic Note Family Medicine Office/Clinic Note HPI Staff Glenda is a 58 year old male presenting for sick visit Acute: intermittent cough for a couple of weeks, drainage, headache, running nose Didn't test for covid _Respiratory C/O: Duration: few weeks Body aches: no Chest congestion: yes Chills: no Cough: yes Ear complaints: yesringing and get plugged up mosty at night Eye itching/watering: yes Fever: no Headache: yes Nasal congestion: yes not too much Nasal discharge: yes clear Poor appetite: yes Reduced activity: no Sinus pain/pressure: yes pressure Sneezing: no Sputum production: yes Wheezing: yes he thinks so Ill contacts: no Remedies tried: nothing tried _ _ questions/concerns : needs his ipatropium nasal spray refilled and bupropion and says he had another one he thinks fluticasone but hasn't gotten it and it's not on his med list he'd like a rx for it History of Present Illness - See staff HPI. Review of Systems PHQ Score Initial Depression Screen Score: 0 SCORE Physical Exam Vitals & Measurements T: 36.8 ?C(Oral) HR: 78(Peripheral) RR: 16 BP: 112/76 SpO2: 96% HT: 71 in HT: 180 cm WT: 116.9 kg WT: 257.18 lb BMI: 36.08 General: alert, no acute distress ENMT: oral mucosa moist, Cardiovascular: regular rate and rhythm, normal peripheral perfusion Respiratory: Lungs CTA, respirations non labored Extremities: no deformity, no trauma Neurological: oriented x 4, LOC appropriate for age, CN II-XII intact, motor strength equal & normal bilaterally, speech normal Abdomen: Soft, Nontender, Non-distended, + BS Assessment/Plan 1. Acute URI (J06.9: Acute upper respiratory infection, unspecified) Added Flonase to the patient's medications. Will do amoxicillin. COVID was negative. Follow-up if symptoms do not improve. Ordered: amoxicillin, 500 mg = 1 cap(s), Oral, q12hr, # 20 cap(s), Refills(s) 0, Pharmacy: [facility]/pharm[facility] #[id number], 180, cm, 12/25/23 14:44:00 EDT, Height/Length Dosing, 116.9, kg, 12/25/23 14:44:00 EDT, Weight Dosing Orders: fluticasone nasal, = 1 spray(s), Nasal, Daily, # 16 gm, Refills(s) 0, Pharmacy: [id number], 180, cm, 12/25/23 14:44:00 EDT, Height/Length Dosing, 116.9, kg, 12/25/23 14:44:00 EDT, Weight Dosing Follow-up No qualifying data available Problem List/Past Medical History Ongoing Acute URI Allergic rhinitis Anemia Anxiety Atherosclerotic heart disease of [place] coronary artery with angina pectoris Contusion COVID-19 Essential hypertension Eustachian tube dysfunction Fatigue Kidney stones Macrocytosis Obesity due to excess calories Psoriasis arthropathica Screening PSA (prostate specific antigen) Sleep disorder Spasm of back muscles Stage 3a chronic kidney disease (CKD) Syncope Vitamin D deficiency Historical COPD (Chronic Obstructive Pulmonary Disease) Assessment Test scale HTN - Hypertension Nephrolithiasis Psoriasis Psoriatic arthritis Procedure/Surgical History Appendectomy, CABG (Coronary artery bypass grafting) planned, Inguinal hernia. Medications #####, 0 amitriptyline 25 mg Tab, See Instructions, 5 refills amLODIPine 5 mg Tab, 5 mg= 1 tab(s), Oral, Daily, 1 refills amoxicillin 500 mg Cap, 500 mg= 1 cap(s), Oral, q12hr bisoprolol-hydroch lorothiazide 10 mg-6.25 mg Tab, 1 tab(s), Oral, Daily, 1 refills buPROPion 300 mg/24 hours ER Tab, See Instructions cetirizine 10 mg Tab, See Instructions, 4 refills cyclobenzaprine 10 mg Tab, 10 mg= 1 tab(s), Oral, TID, PRN Flonase Allergy Relief 50 mcg/inh nasal spray, 1 spray(s), Nasal, Daily gabapentin 300 mg Cap, See Instructions ipratropium Nasal 0.03% [place], See Instructions Oyster Shell Calcium with Vitamin D 500 mg-200 intl units oral tablet, See Instructions sildenafil 25 mg Tab, 25 mg= 1 tab(s), Oral, Daily, PRN Taltz Autoinjector 80 mg/mL subcutaneous solution, SubCutaneous, q4wk tamsulosin 0.4 mg Cap, 0.4 mg= 1 cap(s), Oral, BID, 11 refills Allergies morphine (Unknown) Social History Home/Environment Lives with Alone., 06/15/2022 Tobacco Former smoker, quit more than 30 days ago Tobacco Use:. Never Smokeless Tobacco Use:. Cigarettes, Household tobacco concerns: No. Yes, 12/25/2023 Family History Family history is unknown Immunizations Vaccine Date Status Comments influenza virus vaccine, inactivated - Not Given Patient Refuses SARS-CoV-2 (COVID-19) mRNA BNT-162b2 vax 09/07/2020 Recorded SARS-CoV-2 (COVID-19) mRNA BNT-162b2 vax 08/17/2020 Recorded diphtheria/pertuss is, acel/tetanus adult 11/15/2019 Recorded Normal [facility] Comment on above: Result Comment: Elec tronically Signed By: Murali MASON, Rodrigo Chiu\.br\Date and Time Signed: 12/25/23 15:01 EDT Ambulatory Visit Summaryon 0 10-01-2023 Ambulatory Visit Summary Ambulatory Visit Summary GLENDA BUCKLEY :1965 Visit Date:10/01/2023 Ambulatory Visit Instructions Your Diagnosis Kidney stones Screening PSA (prostate specific antigen) Tests Performed CT Abdomen/Pelvis w/o Contrast -- Results Pending -- Please visit your patient portal for your results or contact your primary care physician. Your Care Team Attending Physician - Yusuf POLLARD MD Primary Care Physician - Rodrigo Brink MD Referring Physician - Rodrigo Brink MD. This Is Your Medications List tamsulosin (tamsulosin 0.4 mg Cap) Contact prescribing physician if questions or concerns Misc Prescription (#####) amitriptyline (amitriptyline 25 mg Tab) amlodipine (amLODIPine 5 mg Tab) bisoprolol-hydroch lorothiazide (bisoprolol-hydroc hlorothiazide 10 mg-6.25 mg Tab) buPROPion (buPROPion 300 mg/24 hours ER Tab) calcium-vitamin D ([place] Calcium with Vitamin D 500 mg-200 intl units oral tablet) cetirizine (cetirizine 10 mg Tab) cyclobenzaprine (cyclobenzaprine 10 mg Tab) gabapentin (gabapentin 300 mg Cap) ipratropium nasal (ipratropium Nasal 0.03% [place]) ixekizumab (Taltz Autoinjector 80 mg/mL subcutaneous solution) sildenafil (sildenafil 25 mg Tab) Procedures Performed Appendectomy, CABG (Coronary artery bypass grafting) planned, Inguinal hernia. Discharge Vitals Heart Rate (Peripheral) 67 Respiratory Rate 16 Blood Pressure 118/79 Height 180 cm Height 71 in Weight 104.7 kg Weight 230.34 lb BMI 32.31 What to do next Scheduled Follow-Up Appointments 2023 10:00 AM EST With: Rodrigo Brink MD Where: [facility] Ambulatory Visit Summaryon 0 09-20-2023 Ambulatory Visit Summary GLENDA BUCKLEY :1965 Visit Date:09/20/2023 Ambulatory Visit Instructions Your Diagnosis Anxiety Adult BMI 34.0-34.9 kg/sq m Class 1 obesity due to excess calories in adult Former smoker Your Care Team Attending Physician - Rodrigo Brink MD Primary Care Physician - Rodrigo Brink MD This Is Your Medications List amitriptyline (amitriptyline 25 mg Tab) amlodipine (amLODIPine 5 mg Tab) bisoprolol-hydroch lorothiazide (bisoprolol-hydroc hlorothiazide 10 mg-6.25 mg Tab) calcium-vitamin D ([place] Shell Calcium with Vitamin D 500 mg-200 intl units oral tablet) Contact prescribing physician if questions or concerns Misc Prescription (#####) buPROPion (buPROPion 300 mg/24 hours ER Tab) cetirizine (cetirizine 10 mg Tab) cyclobenzaprine (cyclobenzaprine 10 mg Tab) gabapentin (gabapentin 300 mg Cap) ipratropium nasal (ipratropium Nasal 0.03% [place]) ixekizumab (Taltz Autoinjector 80 mg/mL subcutaneous solution) sildenafil (sildenafil 25 mg Tab) Procedures Performed Appendectomy, CABG (Coronary artery bypass grafting) planned, Inguinal hernia. Discharge Vitals Temperature (Oral) 36.7 ?C Heart Rate (Peripheral) 68 Respiratory Rate 16 Blood Pressure 124/80 Height 180.3 cm Height 71 in Weight 113.4 kg Weight 249.48 lb BMI 34.88 What to do next Scheduled Follow-Up Appointments Sunday 1:00 PM EDT With: Yusuf POLLARD MD Where: [facility] Normal [address] [place] [phone] \.br\ Medications\.br\ What How Much When Instructions\.br\ Changed calcium-vitamin D ([place]yster Shell Calcium with Vitamin D 500 mg-200 intl units oral tablet) 1 Tablets By Mouth 2 times a day Pickup at [facility]/pharmacy #[id number]\.br\ Unchanged amitriptyline (amitriptyline 25 mg Tab) See instructions TAKE 2 TABLETS BY MOUTH AT BEDTIME Pickup at [facility]/pharmacy #[id number]\.br\ Unchanged amlodipine (amLODIPine 5 mg Tab) 1 Tablets By Mouth Every day Pickup at [facility]/pharmacy #[id number]\.br\ Unchanged bisoprolol-hydroc hlorothiazide (bisoprolol-hydro chlorothiazide 10 mg-6.25 mg Tab) 1 Tablets By Mouth Every day Pickup at [facility]/pharmacy #[id number]\.br\ Unchanged buPROPion (buPROPion 300 mg/ 24 hours ER Tab) 1 Tablets By Mouth Every 24 hours Contact prescribing physician if questions or concerns \.br\ Unchanged cetirizine (cetirizine 10 mg Tab) See instructions TAKE 1 TABLET BY MOUTH EVERY DAY Contact prescribing physician if questions or concerns \.br\ Unchanged cyclobenzaprine (cyclobenzaprine 10 mg Tab) 1 Tablets By Mouth 3 times a day as needed for for spasm Contact prescribing physician if questions or concerns \.br\ Unchanged gabapentin (gabapentin 300 mg Cap) See instructions Take 2 orally in the am, one in the afternoon and one at bedtime Contact prescribing physician if questions or concerns \.br\ Unchanged ipratropium nasal (ipratropium Nasal 0.03% [place]) See instructions USE 2 SPRAYS IN EACH NOSTRIL 3 TIMES DAILY Contact prescribing physician if questions or concerns \.br\ Unchanged ixekizumab (Taltz Autoinjector 80 mg/ mL subcutaneous solution) Subcutaneous Every 4 weeks Contact prescribing physician if questions or concerns \.br\ Unchanged Misc Prescription (#####) 0 4 EA, 0 Refill(s), TAKE 1 CAPSULE BY MOUTH ONE TIME PER WEEK Contact prescribing physician if questions or concerns \.br\ Unchanged sildenafil (sildenafil 25 mg Tab) 1 Tablets By Mouth Every day as needed for for erectile dysfunction Contact prescribing physician if questions or concerns \.br\ Pharmacy Information\.br\ [facility]/pharmacy #[id number]: [address], [place] [phone]\.br\ Allergies\.br\ morphine (Unknown)\.br\ Problems\.br\ Ongoing - Any problem that you are currently receiving treatment for.\.br\ Allergic rhinitis\.br\ Anemia\.br\ Anxiety\.br\ Atherosclerotic heart disease of [place] coronary artery with angina pectoris\.br\ Contusion\.br\ COVID-19\.br\ Essential hypertension\.br\ Fatigue\.br\ Macrocytosis\.br\ Obesity due to excess calories\.br\ Psoriasis arthropathica\.br \ Sleep disorder\.br\ Spasm of back muscles\.br\ Stage 3a chronic kidney disease (CKD)\.br\ Syncope\.br\ Vitamin D deficiency\.br\ Historical - Any problem [...] for choosing us for your care.\.br\ \.br\ [facility] Family Medicine Office/Clini c Noteon 09-20-2023 Family Medicine Office/Clinic Note HPI Staff Glenda is a 58 year old male presenting for one month anxiety ARNAV increased meds Follow up for Mental Status: Medication adherence- Yes, takes medication as prescribed Medication refill needed: no Suicidal thoughts-Not at this time Most recent CONNOR: 5 Most recent PHQ: 2 questions/concerns ; needs his calcium/vit d refilled and feels like he's in a tunnel and ears are plugged History of Present Illness - See staff HPI. - Feels sounds are muffled. - No other issues. Review of Systems PHQ Score Initial Depression Screen Score: 2 SCORE Physical Exam Vitals & Measurements T: 36.7 ?C(Oral) HR: 68(Peripheral) RR: 16 BP: 124/80 SpO2: 98% HT: 71 in HT: 180.3 cm WT: 113.4 kg WT: 249.48 lb BMI: 34.88 General: alert, no acute distress ENMT: oral mucosa moist, Minimal fluid behind the TMs. Cardiovascular: regular rate and rhythm, normal peripheral perfusion Respiratory: Lungs CTA, respirations non labored Extremities: no deformity, no trauma Neurological: oriented x 4, LOC appropriate for age, CN II-XII intact, motor strength equal & normal bilaterally, speech normal Abdomen: Soft, Nontender, Non-distended, + BS Assessment/Plan 1. Anxiety (F41.9: Anxiety disorder, unspecified) - Well controlled. - Will refill meds Ordered: Body Mass Index (BMI) documented 3008F Current tobacco non-user 1036F Depression Screening Negative 3352F Most recent diastolic blood pressure 80-89 mm Hg 3079F Systolic BP <130 mm Hg (Most Recent) 3074F 2. Adult BMI 34.0-34.9 kg/sq m (Z68.34: Body mass index [BMI] 34.0-34.9, adult) - BMI education added Ordered: Body Mass Index (BMI) documented 3008F Current tobacco non-user 1036F Depression Screening Negative 3352F Most recent diastolic blood pressure 80-89 mm Hg 3079F Systolic BP <130 mm Hg (Most Recent) 3074F 3. Class 1 obesity due to excess calories in adult (E66.09: Other obesity due to excess calories) - Please use diet and exercise to help Ordered: Body Mass Index (BMI) documented 3008F [...] <130 mm Hg (Most Recent) 3074F 5. Eustachian tube dysfunction (H69.90: Unspecified Eustachian tube disorder, unspecified ear) - Continue nasal sprays as before. Orders: amitriptyline, See Instructions, TAKE 2 TABLETS BY MOUTH AT BEDTIME, # 60 tab(s), Refills(s) 5, Pharmacy: [facility]/pharmacy #[id number], 180.3, cm, 09/20/23 9:40:00 EDT, Height/Length Dosing, 113.4, kg, 09/20/23 9:40:00 EDT, Weight Dosing amlodipine, 5 mg = 1 tab(s), Oral, Daily, # 90 tab(s), Refills(s) 1, Pharmacy: [facility]/pharmacy #[id number], 180.3, cm, 09/20/23 9:40:00 EDT, Height/Length Dosing, 113.4, kg, 09/20/23 9:40:00 EDT, Weight Dosing bisoprolol-hydroch lorothiazide, 1 tab(s), Oral, Daily, 90 tab(s), Refill(s) 1, [facility]/pharmacy #[id number], 180.3, cm, 09/20/23 9:40:00 EDT, Height/Length Dosing, 113.4, kg, 09/20/23 9:40:00 EDT, Weight Dosing calcium-vitamin D, 1 tab(s), Oral, BID, 90 tab(s), Refill(s) 1, [facility]/pharmacy #[id number], 180.3, cm, 09/20/23 9:40:00 EDT, Height/Length Dosing, 113.4, kg, 09/20/23 9:40:00 EDT, Weight Dosing Follow-up No qualifying data available Patient Education BMI for Adults Problem List/Past Medical History Ongoing Allergic rhinitis Anemia Anxiety Atherosclerotic heart disease of [place] coronary artery with angina pectoris Contusion COVID-19 Essential hypertension Eustachian tube dysfunction Fatigue Macrocytosis Obesity due to excess calories Psoriasis arthropathica Sleep disorder Spasm of back muscles Stage 3a chronic kidney disease (CKD) Syncope Vitamin D deficiency Historical COPD (Chronic Obstructive Pulmonary Disease) Assessment Test scale HTN - Hypertension Nephrolithiasis Psoriasis Psoriatic arthritis Procedure/Surgical History Appendectomy, CABG (Coronary artery bypass grafting) planned, Inguinal hernia. Medications #####, 0 amitriptyline 25 mg Tab, See Instructions, 5 refills amLODIPine 5 mg Tab, 5 mg= 1 tab(s), Oral, Daily, 1 refills bisoprolol-hydroch lorothiazide 10 mg-6.25 mg Tab, 1 tab(s), Oral, Daily, 1 refills buPROPion 300 mg/24 hours ER Tab, 300 mg= 1 tab(s), Oral, q24hr, 1 refills cetirizine 10 mg Tab, See Instructions, 1 refills cyclobenzaprine 10 mg Tab, 10 mg= 1 tab(s), Oral, TID, PRN gabapentin 300 mg Cap, See Instructions ipratropium Nasal 0.03% [place], See Instructions Oyster Shell Calcium with Vitamin D 500 mg-200 intl units oral tablet, 1 tab(s), Oral, BID, 1 refills sildenafil 25 mg Tab, 25 mg= 1 tab(s), Oral, Daily, PRN Taltz Autoinjector (more content not included)... Normal [facility] Comment on above: Result Comment: Elec tronically Signed By: Murali MASON, Rodrigo Chiu\.br\Date and Time Signed: 09/20/23 09:59 EDT Patient Educationon 09-20-19 Patient Education Nutrition BMI for Adults What [...] numbers. This can be done either in [place] or metric measurements. Note that charts and online BMI calculators are available to help you find your BMI quickly and easily without having to do these calculations yourself. To calculate your BMI in [place] measurements: 1. Measure your weight in [...] for Disease Control and Prevention: www.cdc.gov ? [place] Heart Association: www.heart.org ? National Heart, Lung, and Blood Addy: www.nhlbi.nih.gov Summary ? Body mass index (BMI) is a number that is calculated from a person's weight and height. ? BMI may help estimate how much of a person's weight is composed of fat. BMI can help identify those who may be at higher risk for certain medical problems. ? BMI can be measured using [place] measurements or metric measurements. ? BMI charts are used to identify whether you are underweight, normal weight, overweight, or obese. This information is not intended to replace advice given to you by your health care provider. Make sure you discuss any questions you have with your health care provider. Document Revised: 12/10/2019 Document Reviewed: 10/17/2019 [employer] Patient Education ? 2022 [employer] Ambulatory Visit Summaryon 0 08-16-2023 Ambulatory Visit Summary GLENDA BUCKLEY :1965 Visit Date:08/16/2023 Ambulatory Visit Instructions Your Diagnosis Anxiety Essential hypertension BMI 33.0-33.9,adult Class 1 obesity due to excess calories in adult Former smoker Your Care Team Attending Physician - Rodrigo Brink MD Primary Care Physician - Rodrigo Brink MD This Is Your Medications List amlodipine (amLODIPine 5 mg Tab) buPROPion (buPROPion 300 mg/24 hours ER Tab) cetirizine (cetirizine 10 mg Tab) ipratropium nasal (ipratropium Nasal 0.03% [place]) Contact prescribing physician if questions or concerns amitriptyline (amitriptyline 25 mg Tab) bisoprolol-hydroch lorothiazide (bisoprolol-hydroc hlorothiazide 10 mg-6.25 mg Tab) cyclobenzaprine (cyclobenzaprine 10 mg Tab) gabapentin (gabapentin 300 mg Cap) ixekizumab (Taltz Autoinjector 80 mg/mL subcutaneous solution) sildenafil (sildenafil 25 mg Tab) [Image Removed: STOP]Stop taking these medications fluticasone nasal (fluticasone Nasal 0.05 mg/inh [place]) Procedures Performed Appendectomy, CABG (Coronary artery bypass grafting) planned, Inguinal hernia. Discharge Vitals Temperature (Temporal Artery) 37.3 ?C Heart Rate (Peripheral) 74 Respiratory Rate 16 Blood Pressure 124/76 Height 180.3 cm Height 71 in Weight 108.4 kg Weight 238.48 lb BMI 33.35 What to do next Scheduled Follow-Up Appointments 2023 9:30 AM EDT With: Rodrigo Brink MD Where: [facility] [place] Normal [address] [place] [address] [place] [address]- \.br\ Medications\.br\ What How Much When Instructions\.br\ Changed buPROPion (buPROPion 300 mg/ 24 hours ER Tab) 1 Tablets By Mouth Every 24 hours Pickup at [facility]/pharmacy #[id number]\.br\ Unchanged amlodipine (amLODIPine 5 mg Tab) 1 Tablets By Mouth Every day Pickup at [facility]/pharmacy #[id number]\.br\ Unchanged cetirizine (cetirizine 10 mg Tab) See instructions TAKE 1 TABLET BY MOUTH EVERY DAY Pickup at [facility]/pharmacy #[id number]\.br\ Unchanged ipratropium nasal (ipratropium Nasal 0.03% [place]) See instructions USE 2 SPRAYS IN EACH NOSTRIL 3 TIMES A DAY Pickup at [facility]/pharmacy #[id number]\.br\ Unchanged amitriptyline (amitriptyline 25 mg Tab) See instructions TAKE 2 TABLETS BY MOUTH AT BEDTIME Contact prescribing physician if questions or concerns \.br\ Unchanged bisoprolol-hydroc hlorothiazide (bisoprolol-hydro chlorothiazide 10 mg-6.25 mg Tab) 1 Tablets By Mouth Every day Contact prescribing physician if questions or concerns \.br\ Unchanged cyclobenzaprine (cyclobenzaprine 10 mg Tab) 1 Tablets By Mouth 3 times a day as needed for for spasm Contact prescribing physician if questions or concerns \.br\ Unchanged gabapentin (gabapentin 300 mg Cap) See instructions Take 2 orally in the am, one in the afternoon and one at bedtime Contact prescribing physician if questions or concerns \.br\ Unchanged ixekizumab (Taltz Autoinjector 80 mg/ mL subcutaneous solution) Subcutaneous Every 4 weeks Contact prescribing physician if questions or concerns \.br\ Unchanged sildenafil (sildenafil 25 mg Tab) 1 Tablets By Mouth Every day as needed for for erectile dysfunction Contact prescribing physician if questions or concerns \.br\ Pharmacy Information\.br\ [facility]/pharmacy #[id number]: [address], [place] [phone]\.br\ \.br\ What How Much When Comments\.br\ Stop Taking fluticasone nasal (fluticasone Nasal 0.05 mg/ inh [place]) See instructions SPRAY 2 SPRAYS INTO EACH NOSTRIL DAILY \.br\ Allergies\.br\ morphine (Unknown)\.br\ Problems\.br\ Ongoing - Any problem that you are currently receiving treatment for.\.br\ Allergic rhinitis\.br\ Anemia\.br\ Anxiety\.br\ Atherosclerotic heart disease of [place] coronary artery with angina pectoris\.br\ Contusion\.br\ COVID-19\.br\ Essential hypertension\.br\ Fatigue\.br\ Macrocytosis\.br\ Obesity due to excess calories\.br\ Psoriasis arthropathica\.br \ Sleep disorder\.br\ Spasm of back muscles\.br\ Stage 3a chronic kidney disease (CKD)\.br\ Syncope\.br\ Vitamin D deficiency\.br\ Historical - Any problem [...] you for choosing us for your care.\.br\ Education Materials\.br\ BMI for Adults\.br\ What is BMI?\.br\ Body mass index (BMI) is a number that is calculated from a person's weight and height. BMI can help estimate how much of a person's weight is composed of fat. BMI does not measure body fat directly. Rather, it is an alternative to procedures that directly measure body fat, which can be difficult and expensive.\.br\ BMI can help identify people who may be at higher risk for certain medical problems.\.br\ What are BMI measurements used for?\.br\ BMI is used as a screening tool to identify possible weight problems. It helps determine whether a person is obese, overweight, a healthy weight, or underweight.\.br\ BMI is useful for:\.br\ ? \.br\ Identifying a weight problem that may be related to a medical condition or may increase the risk for medical problems.\.br\ ? \.br\ Promoting changes, such as changes in diet and exercise, to help reach a healthy weight. BMI screening can be repeated to see if these changes are working.\.br\ How is BMI calculated?\.br\ BMI involves measuring your weight in relation to your height. Both height and weight are measured, and the BMI is calculated from those numbers. This can be done either in [place] or metric measurements. Note that charts and online BMI calculators are available to help you find your BMI quickly and easily without having to do these calculations yourself.\.br\ To calculate your BMI in [place] measurements:\.br \ \.br\ 1. \.br\ Measure your weight in pounds (lb).\.br\ 2. \.br\ Multiply the number of pounds by 703.\.br\ ? \.br\ For example, for a person who weighs 180 lb, multiply that number by 703, which equals 126,540.\.br\ 3. \.br\ Measure your height in inches. Then multiply that number by itself to get a measurement called inches squared. \.br\ ? \.br\ For example, for a person who is 70 inches tall, the inches squared measurement is 70 inches x 70 inches, which equals 4,900 inches squared.\.br\ 4. \.br\ Divide the total from step 2 (number of lb x 703) by the total from step 3 (inches squared): 126,540 ? 4,900 = 25.8. This is your BMI.\.br\ To calculate your BMI in metric measurements:\.br \ 1. \.br\ Measure your weight in kilograms (kg).\.br\ 2. \.br\ Measure your height in meters (m). Then multiply that number by itself to get a measurement called meters squared. \.br\ ? \.br\ For example, for a person who is 1.75 m tall, the meters squared measurement is 1.75 m x 1.75 m, which is equal to 3.1 meters squared.\.br\ 3. \.br\ Divide the number of kilograms (your weight) by the meters squared number. In this example: 70 ? 3.1 = 22.6. This is your BMI.\.br\ What do the results mean?\.br\ BMI charts are used to identify whether you are underweight, normal weight, overweight, or obese. The following guidelines will be used:\.br\ ? \.br\ Underweight: BMI less than 18.5.\.br\ ? \.br\ Normal weight: BMI between 18.5 and 24.9.\.br\ ? \.br\ Overweight: BMI between 25 and 29.9.\.br\ ? \.br\ Obese: BMI of 30 or above.\.br\ Keep these notes in mind:\.br\ ? \.br\ Weight includes both fat and muscle, so someone with a muscular build, such as an athlete, may have a BMI that is higher than 24.9. In cases like these, BMI is not an accurate measure of body fat.\.br\ ? \.br\ To determine if excess body fat is the cause of a BMI of 25 or higher, further assessments may need to be done by a health care provider.\.br\ ? \.br\ BMI is usually interpreted in the same way for men and women.\.br\ Where to find more information\.br\ For more information about BMI, including tools to quickly calculate your BMI, go to these websites:\.br\ ? \.br\ Centers for Disease Control and Prevention: www.cdc.gov\.br\ ? \.br\ [place] Heart Association: www.heart.org\.br \ ? \.br\ National Heart, Lung, and Blood Add[place]: www.nhlbi.nih.gov \.br\ Summary\.br\ ? \.br\ Body mass index (BMI) is a number that is calculated from a person's weight and height.\.br\ ? \.br\ BMI may help estimate how much of a person's weight is composed of fat. BMI can help identify those who may be at higher risk for certain medical problems.\.br\ ? \.br\ BMI can be measured using [place] measurements or metric measurements.\.br \ ? \.br\ BMI charts are used to identify whether you are underweight, normal weight, overweight, or obese.\.br\ This information is not intended to replace advice given to you by your health care provider. Make sure you discuss any questions you have with [facility] Family Medicine Office/Page Maguire 08-16-2023 Family Medicine Office/Clinic Note HPI Staff Glenda is a 58 year old male presenting for 3 month follow up htn & mood Patient is here for follow up on hypertension. How often are you checking your blood pressure? Doesnt check BP at home What are your average readings? N/A, Not checking at home Yearly BMP: 11/15/22_ Follow up for Mental Status: Medication adherence- Yes, takes medication as prescribed Medication refill needed: _ Suicidal thoughts-Not at this time Most recent CONNOR: 13 Most recent PHQ: 6 + phq9: 23 questions/concerns : doesn't feel anxiety medication is helping getting irritated much more easily and trouble relaxing Had heart monitor last month he hasn't gotten any results yet Needs refills of his fluticasone spray, cetirizine, amlodipine and ipratropium nasal solution History of Present Illness - Here for follow up. - Anxiety worsening - Stress at work. - See staff HPI. Review of Systems PHQ Score Initial Depression Screen Score: 6 SCORE Detailed Depression Screen Score: 17 Total Depression Screen Score: 23 Physical Exam Vitals & Measurements T: 37.3 ?C(Temporal Artery) HR: 74(Peripheral) RR: 16 BP: 124/76 SpO2: 97% HT: 71 in HT: 180.3 cm WT: 108.4 kg WT: 238.48 lb BMI: 33.35 General: alert, no acute distress ENMT: oral mucosa moist, Cardiovascular: normal peripheral perfusion Respiratory: respirations non labored Extremities: no deformity, no trauma Neurological: oriented x 4, LOC appropriate for age, CN II-XII intact, motor strength equal & normal bilaterally, speech normal Assessment/Plan 1. Anxiety (F41.9: Anxiety disorder, unspecified) - Will increase meds today. - Adjuvant therapies recommended - No other concerns Ordered: Body Mass Index (BMI) documented 3008F Current tobacco non-user 1036F Depression Screening Positive 3354F Most recent diastolic blood pressure <80 mm Hg 3078F Systolic BP <130 mm Hg (Most Recent) 3074F 2. Essential hypertension (I10: Essential (primary) hypertension) - at goal - Will refill. Ordered: Body Mass Index (BMI) documented 3008F Current tobacco non-user 1036F Depression Screening Positive 3354F Most recent diastolic blood pressure <80 mm Hg 3078F Systolic BP <130 mm Hg (Most Recent) 3074F 3. BMI 33.0-33.9,adult (Z68.33: Body mass index [BMI] 33.0-33.9, adult) - BMI education advise Ordered: Body Mass Index (BMI) documented 3008F Current tobacco non-user 1036F Depression Screening Positive 3354F Most recent diastolic blood pressure <80 mm Hg 3078F Systolic BP <130 mm Hg (Most Recent) 3074F 4. Class 1 obesity due to excess calories in adult (E66.09: Other obesity due to excess calories) - Diet and exercise advised Ordered: Body Mass Index (BMI) documented 3008F Current tobacco non-user 1036F Depression Screening Positive 3354F Most recent diastolic blood pressure <80 mm Hg 3078F Systolic BP <130 mm Hg (Most Recent) 3074F 5. Former smoker (Z87.891: Personal history of nicotine dependence) - Please continue to not smoke Ordered: Body Mass Index (BMI) documented 3008F Current tobacco non-user 1036F Depression Screening Positive 3354F Most recent diastolic blood pressure <80 mm Hg 3078F Systolic BP <130 mm Hg (Most Recent) 3074F Orders: amlodipine, 5 mg = 1 tab(s), Oral, Daily, # 90 tab(s), Refills(s) 1, Pharmacy: [facility]/pharmacy #[id number], 180.3, cm, 08/16/23 13:16:00 EDT, Height/Length Dosing, 108.4, kg, 08/16/23 13:16:00 EDT, Weight Dosing buPROPion, 300 mg = 1 tab(s), Oral, q24hr, # 90 tab(s), Refills(s) 1, Pharmacy: [facility]/pharmacy #[id number], 180.3, cm, 08/16/23 13:16:00 EDT, Height/Length Dosing, 108.4, kg, 08/16/23 13:16:00 EDT, Weight Dosing cetirizine, See Instructions, TAKE 1 TABLET BY MOUTH EVERY DAY, # 90 tab(s), Refills(s) 1, Pharmacy: [facility]/pharmacy #[id number], 180.3, cm, 08/16/23 13:16:00 EDT, Height/Length Dosing, 108.4, kg, 08/16/23 13:16:00 EDT, Weight Dosing gabapentin, See Instructions, Take 2 orally in the am, one in the afternoon and one at bedtime, # 60 cap(s), Refills(s) 2, Pharmacy: [id number], 180.3, cm, 03/05/23 14:04:00 EST, Height/Length Dosing, 102, kg, 03/05/23 14:04:00 EST, Weight Dosing ipratropium nasal, See Instructions, 30 Unspecified/Unknow n, Refill(s) 0, USE 2 SPRAYS IN EACH NOSTRIL 3 TIMES A DAY, [id number], 180.3, cm, 08/16/23 13:16:00 EDT, Height/Length Dosing, 108.4, kg, 08/16/23 13:16:00 EDT, Weight Dosing Follow-up No qualifying data available Patient Education BMI for Adults Problem List/Past Medical History Ongoing Allergic rhinitis Anemia Anxiety Atherosclerotic heart disease of [place] coronary artery with angina pectoris Contusion COVID-19 Essential hypertension Fatigue Macrocytosis Obesity due to excess calories Psoriasis arthropathica Sleep disorder Spasm of back muscles Stage 3a chronic kidney disease (CKD) Syncope Vitamin D deficiency Historical COPD (Chronic Obstructive Pulmonary Disease) Assessment Test scale HTN - Hypertension (more content not included)... Normal [facility] Comment on above: Result Comment: Elec tronically Signed By: Murali MASON, Rodrigo Chiu\.br\Date and Time Signed: 08/16/23 13:45 EDT Patient Educationon 08-16-19 Patient Education Nutrition BMI for Adults What [...] numbers. This can be done either in [place] or metric measurements. Note that charts and online BMI calculators are available to help you find your BMI quickly and easily without having to do these calculations yourself. To calculate your BMI in [place] ([place] measurements: 1. Measure your weight in [...] for Disease Control and Prevention: www.cdc.gov ? [place] Heart Association: www.heart.org ? National Heart, Lung, and Blood Addy: www.nhlbi.nih.gov Summary ? Body mass index (BMI) is a number that is calculated from a person's weight and height. ? BMI may help estimate how much of a person's weight is composed of fat. BMI can help identify those who may be at higher risk for certain medical problems. ? BMI can be measured using [place] measurements or metric measurements. ? BMI charts are used to identify whether you are underweight, normal weight, overweight, or obese. This information is not intended to replace advice given to you by your health care provider. Make sure you discuss any questions you have with your health care provider. Document Revised: 12/10/2019 Document Reviewed: 10/17/2019 [employer] Patient Education ? 2022 [employer]. [facility] Consultation Noteon 08-06-19 Consultation Note [id number] 6383#1.00TIFF [facility] Monitor Recordon 08-02-2023 Monitor Record [id number]#1.00TIFF [facility] Lab Reportson 07-20-2023 Lab Reports [id number]#1.00TIFF [facility] Lab Reports [id number]#1.00TIFF [facility] Consultation Noteon 07-18-19 24 Consultation Note [id number]#1.00TIFF [facility] Operative Reporton 4 Operative Report [id number]#1.00TIFF Normal [facility] Consent for Treatmenton Consent for Treatment [id number]#1.00TIFF [facility] RAD - MRI Reporton RAD - MRI Report [id number]#1.00TIFF [facility] Insurance Correspondenceon 0 05-25-2023 Insurance Correspondence [id number]#1.00TIFF [facility] Ambulatory Visit Summaryon 0 05-17-2023 Ambulatory Visit Summary GLENDA BUCKLEY :1965 Visit Date:05/17/2023 Ambulatory Visit Instructions Your Diagnosis Essential hypertension Anxiety 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 Primary Care Physician - Rodrigo Brink MD. This Is Your Medications List acetaminophen-hydr ocodone (acetaminophen-hyd rocodone 325 mg-5 mg oral tablet) amitriptyline (amitriptyline 25 mg Tab) amlodipine (amLODIPine 5 mg Tab) bisoprolol-hydroch lorothiazide (bisoprolol-hydroc hlorothiazide 10 mg-6.25 mg Tab) buPROPion (buPROPion 150 mg/24 hours XL Tab) cetirizine (cetirizine 10 mg Tab) cyclobenzaprine (cyclobenzaprine 10 mg Tab) fluticasone nasal (fluticasone Nasal 0.05 mg/inh [place]) gabapentin (gabapentin 300 mg Cap) ipratropium nasal (ipratropium Nasal 0.03% [place]) ixekizumab (Taltz Autoinjector 80 mg/mL subcutaneous solution) [...] Appointments July. 2023 1:15 PM EDT With: Murali MASON, Rodrigo Chiu Where: [facility] [place] Normal [facility] Medicine Office/Clini c Noteon 05-17-2023 Family Medicine [...] Recent) 3074F 3. Atherosclerotic heart disease of [place] coronary artery with angina pectoris (I25.119: Atherosclerotic heart disease of [place] coronary artery with unspecified angina pectoris) - [...] documented 3008F Current smokeless tobacco user 1035F Depressio (more content not included)... Normal [facility] Comment on above: Result Comment: Elec tronically Signed By: Murali MASON, Rodrigo Chiu\.br\Date and Time Signed: 05/17/23 10:13 EST [...] numbers. This can be done either in [place] ([place] or metric measurements. Note that charts and online BMI calculators are available to help you find your BMI quickly and easily without having to do these calculations yourself. To calculate your BMI in [place] ([place] measurements: 1. Measure your weight in [...] for Disease Control and Prevention: www.cdc.gov ? [place] Heart Association: www.heart.org ? National Heart, Lung, and Blood Addy: www.nhlbi.nih.gov Summary ? Body mass index (BMI) is a number that is calculated from a person's weight and height. ? BMI may help estimate how much of a person's weight is composed of fat. BMI can help identify those who may be at higher risk for certain medical problems. ? BMI can be measured using [place] measurements or metric measurements. ? BMI charts are used to identify whether you are underweight, normal weight, overweight, or obese. This information is not intended to replace advice given to you by your health care provider. Make sure you discuss any questions you have with your health care provider. Document Revised: 12/10/2019 Document Reviewed: 10/17/2019 [employer] Patient Education ? 2022 [employer] Normal [facility] EMG Electromyographyon 05-15 EMG Electromyography [id number]#1.00TIFF Normal [facility] Consultation Noteon 03-21-20 Consultation Note [id number]#1.00TIFF Normal [facility] RAD - MISCon 03-21-2023 RAD - MISC [id number]#1.00TIFF Normal [facility] Ambulatory Visit Summaryon 1 05-13-2022 Ambulatory Visit Summary GLENDA BUCKLEY :1965 Visit Date:03/12/2023 Ambulatory Visit Instructions Your Diagnosis COVID-19 Your Care Team Attending Physician - Rodrigo Brink MD Primary Care Physician - Rodrigo Brink MD This Is Your Medications List acetaminophen-hydr ocodone (acetaminophen-hyd rocodone 325 mg-5 mg oral tablet) amitriptyline (amitriptyline 25 mg Tab) amlodipine (amLODIPine 5 mg Tab) benzonatate (benzonatate 200 mg oral capsule) bisoprolol-hydroch lorothiazide (bisoprolol-hydroc hlorothiazide 10 mg-6.25 mg Tab) buPROPion (buPROPion 150 mg/24 hours XL Tab) cetirizine (cetirizine 10 mg Tab) cyclobenzaprine (cyclobenzaprine 10 mg Tab) fluticasone nasal (fluticasone Nasal 0.05 mg/inh [place]) gabapentin (gabapentin 300 mg Cap) ipratropium nasal (ipratropium Nasal 0.03% [place]) ixekizumab (Taltz Autoinjector 80 mg/mL subcutaneous solution) sildenafil (sildenafil 25 mg Tab) Procedures Performed Appendectomy, CABG (Coronary artery bypass grafting) planned, Inguinal hernia. What to do next Scheduled Follow-Up Appointments Sunday 9:00 AM EST With: BABATUNDE MASON, Yusuf Cortés Where: [facility] [address] \.br\ Medications\.br\ What How Much When Why [...] fluticasone nasal (fluticasone Nasal 0.05 mg/ inh [place]) See instructions SPRAY 2 SPRAYS INTO EACH NOSTRIL DAILY \.br\ Unchanged gabapentin (gabapentin 300 mg Cap) See instructions TAKE 1 CAPSULE BY MOUTH TWICE A DAY \.br\ Unchanged ipratropium nasal (ipratropium Nasal 0.03% [place]) See instructions USE 2 SPRAYS IN EACH [...] rhinitis\.br\ Anemia\.br\ Anxiety\.br\ Atherosclerotic heart disease of [place] coronary artery with angina pectoris\.br\ Contusion\.br\ COVID-19\.br\ [...] for choosing us for your care.\.br\ \.br\ [facility] Nurse Consultation Noteon Nurse Consultation Note Physical Exam pt here today for re check COVID test. Today was positive here in office. Per Dr Brink patient taken off work for 3-4 days. [...] Oral, TID, PRN fluticasone Nasal 0.05 mg/inh [place], See Instructions gabapentin 300 mg Cap, See Instructions ipratropium Nasal 0.03% [place], See Instructions sildenafil 25 mg Tab, 25 [...] Results Rapid Covid POC: Positive (03/12/23 09:05:00) Normal [facility] Provider Letteron 03-12-2023 Provider Letter March 12, 2023 [place] [address] : 1965 To Whom It May Concern, Please excuse above patient from work. Date of Illness: From: 03.12.2023 To: 03.16.2023 May Return to Work On: 03.19.2023 Comments: Post covid symptoms Sincerely, Yakelin Santiago, REGISTERED NURSE [employer] [address] [address] [facility] Consultation Noteon 03-08-20 Consultation Note [id number]#1.00TIFF [facility] Provider Letteron 03-06-2023 Provider Letter March 06, 2023 GLENDA [place] [address] : 1965 To Whom It May Concern, Please excuse above patient from work. Date of Illness: From: 03.05.2023 To: 03.12.2023 May Return to Work On: 03.13.2023 Comments: Patient is off due to illness. Sincerely, Rodrigo Brink MD [place] [id number] [facility] Family Medicine Office/Clini c Noteon 03-05-2023 Family [...] day(s), # 6 tab(s), Refills(s) 0, Pharmacy: [facility]/pharmacy #[id number], 180.3, cm, 03/05/23 14:04:00 EST, Height/Length Dosing, 102, kg, 03/05/23 14:04:00 EST, Weight Dosing benzonatate, 200 mg = 1 cap(s), Oral, TID, X 7 day(s), # 21 cap(s), Refills(s) 0, Pharmacy: [facility]/pharmacy #[id number], 180.3, cm, 03/05/23 14:04:00 EST, Height/Length Dosing, 102, kg, 03/05/23 14:04:00 EST, Weight Dosing methylPREDNISolone , = 1 packet(s), Oral, As Directed, as directed on package labeling, X 6 day(s), # 21 tab(s), Refills(s) 0, Pharmacy: [facility]/pharmacy #[id number], 180.3, cm, 03/05/23 14:04:00 EST, Height/Length Dosing, 102, kg, 03/05/23 14:04:00 EST, Weight Dosing Body Mass Index (BMI) documented 3008F Current tobacco non-user 1036F Depression Screening Negative 3352F Influenza immunization administered or previously received 4274F Influenza Type A&B POC 56288 Most recent diastolic blood pressure <80 mm Hg 3078F Rapid COVID POC 28273 Systolic BP <130 mm Hg (Most Recent) 3074F 2. BMI 31.0-31.9,adult (Z68.31: Body mass index [BMI] 31.0-31.9, adult) - BMI education uploaded to the portal Ordered: azithromycin, = 1 packet(s), Oral, As Directed, as directed on package labeling, X 5 day(s), # 6 tab(s), Refills(s) 0, [id number], 180.3, cm, 03/05/23 14:04:00 EST, Height/Length Dosing, 102, kg, 03/05/23 14:04:00 EST, Weight Dosing benzonatate, 200 mg = 1 cap(s), Oral, TID, X 7 day(s), # 21 cap(s), Refills(s) 0, [id number], 180.3, cm, 03/05/23 14:04:00 EST, Height/Length Dosing, 102, kg, 03/05/23 14:04:00 EST, Weight Dosing methylPREDNISolone , = 1 packet(s), Oral, As Directed, as directed on package labeling, X 6 day(s), # 21 tab(s), Refills(s) 0, [id number], 180.3, cm, 03/05/23 14:04:00 EST, Height/Length [...] day(s), # 6 tab(s), Refills(s) 0, [id number], 180.3, cm, 03/05/23 14:04:00 EST, Height/Length Dosing, 102, kg, 03/05/23 14:04:00 EST, Weight Dosing benzonatate, 200 mg = 1 cap(s), Oral, TID, X 7 day(s), # 21 cap(s), Refills(s) 0, [id number], 180.3, cm, 03/05/23 14:04:00 EST, Height/Length Dosing, 102, kg, 03/05/23 14:04:00 EST, Weight Dosing methylPREDNISolone , = 1 packet(s), Oral, As Directed, as directed on package labeling, X 6 day(s), # 21 tab(s), Refills(s) 0, Pharmacy: [facility]/pharmacy #[id number], 180.3, cm, 03/05/23 14:04:00 EST, [...] dependence) Orde (more content not included)... Normal [facility] Comment on above: Result Comment: Elec tronically Signed By: Murali MASON, Rodrigo Chiu\.br\Date and Time Signed: 03/05/23 14:22 EST [...] numbers. This can be done either in [place] or metric measurements. Note that charts and online BMI calculators are available to help you find your BMI quickly and easily without having to do these calculations yourself. To calculate your BMI in [place] ([place] measurements: 1. Measure your weight in [...] for Disease Control and Prevention: www.cdc.gov ? [place] Heart Association: www.heart.org ? National Heart, Lung, and Blood Addy: www.nhlbi.nih.gov Summary ? Body mass index (BMI) is a number that is calculated from a person's weight and height. ? BMI may help estimate how much of a person's weight is composed of fat. BMI can help identify those who may be at higher risk for certain medical problems. ? BMI can be measured using [place] measurements or metric measurements. ? BMI charts are used to identify whether you are underweight, normal weight, overweight, or obese. This information is not intended to replace advice given to you by your health care provider. Make sure you discuss any questions you have with your health care provider. Document Revised: 12/10/2019 Document Reviewed: 10/17/2019 [employer] Patient Education ? 2022 [employer]. Nutrition BMI for Adults What is BMI? [...] may be (more content not included)... Normal [facility] Ambulatory Visit Summaryon 04-17-2022 Ambulatory Visit Summary AMBROSIOGLENDA :1965 Visit Date:02/15/2023 Ambulatory Visit Instructions Your Diagnosis Anxiety Essential hypertension BMI 32.0-32.9,adult Class 1 obesity due to excess calories in adult, Obesity due to excess calories Nonsmoker Your Care Team Attending Physician - Rodrigo Brink MD Primary Care Physician - Rodrigo Brink MD This Is Your Medications List amitriptyline (amitriptyline 25 mg Tab) amlodipine (amLODIPine 5 mg Tab) bisoprolol-hydroch lorothiazide (bisoprolol-hydroc hlorothiazide 10 mg-6.25 mg Tab) buPROPion (buPROPion 150 mg/24 hours XL Tab) cetirizine (cetirizine 10 mg Tab) cyclobenzaprine (cyclobenzaprine 10 mg Tab) fluticasone nasal (fluticasone Nasal 0.05 mg/inh [place]) gabapentin (gabapentin 300 mg Cap) ipratropium nasal (ipratropium Nasal 0.03% [place]) ixekizumab (Taltz Autoinjector 80 mg/mL subcutaneous solution) [...] MASON, Yusuf Cortés Where: [facility] [place] [id number]- \.br\ Medications\.br\ What How Much When Instructions\.br\ [...] fluticasone nasal (fluticasone Nasal 0.05 mg/ inh [place]) See instructions SPRAY 2 SPRAYS INTO EACH NOSTRIL DAILY \.br\ Unchanged gabapentin (gabapentin 300 mg Cap) See instructions TAKE 1 CAPSULE BY MOUTH TWICE A DAY \.br\ Unchanged ipratropium nasal (ipratropium Nasal 0.03% [place]) See instructions USE 2 SPRAYS IN EACH [...] rhinitis\.br\ Anemia\.br\ Anxiety\.br\ Atherosclerotic heart disease of [place] coronary artery with angina pectoris\.br\ Contusion\.br\ Essential [...] choosing us for your care.\.br\ \.br\ [facility] Family Medicine Office/Clini c Noteon 02-15-2023 [...] other week What are your average readings? /_ Yearly BMP: 11/15/22_ flu: refused questions/concerns : [...] DAY, # 90 tab(s), Refills(s) 0, Pharmacy: [facility]/pharmacy #[id number], 180.3, cm, 02/15/23 11:32:00 EST, Height/Length Dosing, 105.8, kg, 02/15/23 11:32:00 EST, Weight Dosing gabapentin, See Instructions, TAKE 1 CAPSULE BY MOUTH TWICE A DAY, # 180 cap(s), Refills(s) 0, Pharmacy: [facility]/pharmacy #[id number], 180.3, cm, 02/15/23 11:32:00 EST, Height/Length Dosing, 105.8, kg, 02/15/23 11:32:00 EST, Weight Dosing Follow-up No qualifying data available Problem List/Past Medical History Ongoing Allergic rhinitis Anemia Anxiety Atherosclerotic heart disease of [place] coronary artery with angina pectoris Contusion Essential [...] 10 mg= 1 (more content not included)... [facility] Comment on above: Result Comment: Elec tronically Signed By: Murali MASON, Rodrigo Manning.br\Date and Time Signed: 02/15/23 12:29 EST RAD - MISCon 01-24-2023 RAD - MISC [id number]#1.00TIFF [facility] Lab Reportson 01-17-2023 Lab Reports [id number]#1.00TIFF [facility] Lab Reportson 01-16-2023 Lab Reports [id number]#1.00TIFF [facility] Lab Reports [id number]#1.00TIFF [facility] CHEMISTRYOrdered By: SYSTEM SYSTEM on 10-31-2022 25-hydroxyvitamin [...] Normal 0.34 - 5.60 mcIU/mL [facility] Remisol HEMATOLOGYOrdered By: SYSTEM SYSTEM on 10-31-2022 Basophils/100 [...] 4.0 E9/L Normal 2.0 - 7.5 E9/L [facility] HemeAutoSS HEMATOLOGYOrdered By: Maria Victoria Alexander on [...] 6.5 E9/L Normal 4.0 - 11.0 E9/L [facility] HemeAutoSS CBC AUTO DIFFon 07-29-2022 BASO # 0.0 103/ul Normal 0.0-0.1 [facility] Comment on above: Performed By: #### C BC #### [facility] [address] [place] [address] [address] Roosevelt Verde Basophils/100 WBC (Bld) 0.4 % Normal 0.2-2.0 [facility] Comment on above: Performed By: #### C BC #### [facility] [address] [place] [address] [address] Roosevelt Verde EO # 0.0 103/ul Normal 0.0-0.7 [facility] Comment on above: Performed By: #### C BC #### [facility] [address] [place] [address] [address] Roosevelt Verde Eosinophils/100 WBC (Bld) 0.4 % Critically low 0.9-7.0 [facility] Comment on above: Performed By: #### C BC #### [facility] [address] [place] [address] [address] Roosevelt Verde Erythrocyte distribution width (RBC) [Ratio] 13.3 % Normal 11.0-15.0 [facility] Comment on above: Performed By: #### C BC #### [facility] [address] [place] [address] Dr. Roosevelt Verde Hematocrit (Bld) [Volume fraction] 42.9 % Normal 42.0-54.0 [facility] Comment on above: Performed By: #### C BC #### [facility] [address] [place] [address] Dr. Roosevelt Verde Hemoglobin (Bld) [Mass/Vol] 13.9 g/dL Critically low 14.0-18.0 [facility] Comment on above: Performed By: #### C BC #### [facility] [address] [place] [address] Dr. Roosevelt Verde IG # 0.02 10e3/ul Normal 0.00-0.03 [facility] Comment on above: Performed By: #### C BC #### [facility] [address] [place] [address] Dr. Roosevelt Verde IG % 0.2 % Normal 0.0-0.5 [facility] Comment on above: Performed By: #### C BC #### [facility] [address] [place] [address] Dr. Roosevelt Verde LYMPH # 1.1 103/ul Critically low 1.2-3.8 [facility] Comment on above: Performed By: #### C BC #### [facility] [address] [place] [address] Dr. Roosevelt Verde Lymphocytes/100 WBC (Bld) 13.5 % Critically low 20.5-60.0 [facility] Comment on above: Performed By: #### C BC #### [facility] [address] [place] [address] Dr. Roosevelt Verde MANUAL DIFF REQ NO Normal [facility] Comment on above: Performed By: #### C BC #### [facility] [address] [place] [address] Dr. Roosevelt Verde MCH (RBC) [Entitic mass] 34.6 pg Critically high 25.9-34.0 [facility] Comment on above: Performed By: #### C BC #### [facility] [address] [address] [address] Roosevelt Verde MCHC (RBC) [Mass/Vol] 32.4 g/dL Normal 29.9-35.2 [facility] Comment on above: Performed By: #### C BC #### [facility] [address] [address] [address] Roosevelt Verde MCV (RBC) [Entitic vol] 106.7 fL Critically high 80.0-94.0 [facility] Comment on above: Performed By: #### C BC #### [facility] [address] [address] [address] Roosevelt Verde MONO # 0.6 103/ul Normal 0.3-0.8 [facility] Comment on above: Performed By: #### C BC #### [facility] [address] [address] [address] Roosevelt Verde Monocytes/100 WBC (Bld) 7.6 % Normal 1.7-12.0 [facility] Comment on above: Performed By: #### C BC #### [facility] [address] [address] [address] Roosevelt Verde NEUT # 6.3 103/ul Normal 1.4-6.5 [facility] Comment on above: Performed By: #### C BC #### [facility] [address] [address] [address] Roosevelt Verde Neutrophils/100 WBC (Bld) 77.9 % Critically high 43.0-75.0 [facility] Comment on above: Performed By: #### C BC #### [facility] [address] [address] [address] Roosevelt Verde Platelet mean volume (Bld) [Entitic vol] 9.4 fL Critically low 9.5-13.5 [facility] Comment on above: Performed By: #### C BC #### [facility] [address] [address] [address] Roosevelt Verde PLT 315 103/ul Normal 150-450 [facility] Comment on above: Performed By: #### C BC #### [facility] [address] [address] [address] Roosevelt Verde RBC 4.02 106/ul Critically low 4.70-6.10 [facility] Comment on above: Performed By: #### C BC #### [facility] [address] [place] [address] Dr. Roosevelt Verde WBC 8.1 103/ul Normal 4.0-11.0 [facility] Comment on above: Performed By: #### C BC #### [facility] [address] [place] [address] Dr. Roosevelt Verde CRPon 07-29-2022 CRP 4.4 mg/dL Critically high <=1.0 [facility] Comment on above: Performed By: #### C BC #### [facility] [address] [place] [address] Dr. Roosevelt Verde MYOGLOBINon 07-29-2022 FISH 33 ng/mL Normal 16-96 [facility] [place] Comment on above: Performed By: #### C BC #### [facility] [address] [place] [address] Dr. Roosevelt Verde PROF 14(COMP METB)on 023 Albumin [Mass/Vol] 3.8 g/dL Normal 3.4-5.[address] [facility] Comment on above: Performed By: #### C BC #### [facility] [address] [place] [address] Dr. Roosevelt Verde Albumin/Globulin [Mass ratio] 1.0 {ratio} Normal [facility] Comment on above: Performed By: #### C BC #### [facility] [address] [place] [address] Dr. Roosevelt Verde ALP [Catalytic activity/Vol] 83 U/L Normal 46-116 [facility] Comment on above: Performed By: #### C BC #### [facility] [address] [place] [address] Dr. Roosevelt Verde ALT [Catalytic activity/Vol] 36 U/L Normal 16-63 [facility] Comment on above: Performed By: #### C BC #### [facility] [address] [address] [address] Roosevelt Verde Anion gap [Moles/Vol] 11.9 mmol/L Normal [facility] Comment on above: Performed By: #### C BC #### [facility] [address] [address] [address] Roosevelt Verde AST [Catalytic activity/Vol] 13 U/L Critically low 15-37 [facility] Comment on above: Performed By: #### C BC #### [facility] [address] [address] [address] Roosevelt Verde Bilirubin [Mass/Vol] 0.6 mg/dL Normal 0.2-1.0 [facility] Comment on above: Performed By: #### C BC #### [facility] [address] [place] [address] Dr. Roosevelt Verde Calcium [Mass/Vol] 8.6 mg/dL Normal 8.5-10.[address] [facility] Comment on above: Performed By: #### C BC #### [facility] [address] [address] [address] Roosevelt Verde Chloride [Moles/Vol] 106 mmol/L Normal 98-107 [facility] Comment on above: Performed By: #### C BC #### [facility] [address] [address] [address] Roosevelt Verde CO2 [Moles/Vol] 25.8 mmol/L Normal 21.0-32.0 [facility] Comment on above: Performed By: #### C BC #### [facility] [address] [place] [address] Dr. Roosevelt Verde Creatinine [Mass/Vol] 1.52 mg/dL Critically high 0.70-1.30 [facility] [place] Comment on above: Performed By: #### C BC #### [facility] [address] [address] [address] Roosevelt Verde EGFR-AF MALTESE 58 mL/min/1.73m2 Critically low >=60 [facility] Comment on above: Performed By: #### C BC #### [facility] [address] [address] [address] Roosevelt Verde EGFR-NON AF MALTESE 48 mL/min/1.73m2 Critically low >=60 [facility] Comment on above: Performed By: #### C BC #### [facility] [address] [place] [address] Dr. Roosevelt Verde Globulin (S) [Mass/Vol] 3.7 g/dL Normal [facility] Comment on above: Performed By: #### C BC #### [facility] [address] [address] [address] Roosevelt Verde Glucose [Mass/Vol] 123 mg/dL Critically high 74-106 [facility] Comment on above: Performed By: #### C BC #### [facility] [address] [place] [address] Dr. Roosevelt Verde Potassium [Moles/Vol] 4.7 mmol/L Normal 3.5-5.1 [facility] Comment on above: Performed By: #### C BC #### [facility] [address] [place] [address] Dr. Roosevelt Verde Protein [Mass/Vol] 7.5 g/dL Normal 6.4-8.[address] [facility] Comment on above: Performed By: #### C BC #### [facility] [address] [place] [address] Dr. Roosevelt Verde Sodium [Moles/Vol] 139 mmol/L Normal 136-[address] [facility] Comment on above: Performed By: #### C BC #### [facility] [address] [place] [address] Dr. Roosevelt Verde Urea nitrogen [Mass/Vol] 22.0 mg/dL Critically high 7.0-18.0 [facility] Comment on above: Performed By: #### C BC #### [facility] [address] [place] [address] Dr. Roosevelt Verde Urea nitrogen/Creatinine [Mass ratio] 14.5 mg/mg Normal [facility] Comment on above: Performed By: #### C BC #### [facility] [address] [place] [address] Dr. Roosevelt Verde SED RATE WESTERGREN 2022 SED RATE 32 mm/hr Critically high <=20 [facility] Comment on above: Performed By: #### C BC #### [facility] [address] [address] [address] Roosevelt Verde CBC AUTO DIFFon 07-20-2022 BASO # 0.0 103/ul Normal 0.0-0.1 [facility] Comment on above: Performed By: #### C BC #### [facility] [address] [place] [address] Dr. Roosevelt Verde Basophils/100 WBC (Bld) 0.5 % Normal 0.2-2.0 [facility] Comment on above: Performed By: #### C BC #### [facility] [address] [place] [address] Dr. Roosevelt Verde EO # 0.0 103/ul Normal 0.0-0.7 [facility] Comment on above: Performed By: #### C BC #### [facility] [address] [place] [address] Dr. Roosevelt Verde Eosinophils/100 WBC (Bld) 0.5 % Critically low 0.9-7.0 [facility] Comment on above: Performed By: #### C BC #### [facility] [address] [place] [address] Dr. Roosevelt Verde Erythrocyte distribution width (RBC) [Ratio] 13.1 % Normal 11.0-15.0 [facility] Comment on above: Performed By: #### C BC #### [facility] [address] [place] [address] Dr. Roosevelt Verde Hematocrit (Bld) [Volume fraction] 39.2 % Critically low 42.0-54.0 [facility] Comment on above: Performed By: #### C BC #### [facility] [address] [place] [address] Dr. Roosevelt Verde Hemoglobin (Bld) [Mass/Vol] 12.7 g/dL Critically low 14.0-18.0 [facility] Comment on above: Performed By: #### C BC #### [facility] [address] [place] [address] Dr. Roosevelt Verde IG # 0.03 10e3/ul Normal 0.00-0.03 [facility] [place] Comment on above: Performed By: #### C BC #### [facility] [address] [place] [address] Dr. Roosevelt Verde IG % 0.4 % Normal 0.0-0.5 [facility] Comment on above: Performed By: #### C BC #### [facility] [address] [place] [address] Dr. Roosevelt Verde LYMPH # 1.6 103/ul Normal 1.2-3.8 [facility] Comment on above: Performed By: #### C BC #### [facility] [address] [place] [address] Dr. Roosevelt Verde Lymphocytes/100 WBC (Bld) 21.7 % Normal 20.5-60.0 [facility] Comment on above: Performed By: #### C BC #### [facility] [address] [place] [address] Dr. Roosevelt Verde MANUAL DIFF REQ NO Normal [facility] Comment on above: Performed By: #### C BC #### [facility] [address] [place] [address] Dr. Roosevelt Verde MCH (RBC) [Entitic mass] 34.0 pg Normal 25.9-34.0 [facility] Comment on above: Performed By: #### C BC #### [facility] [address] [place] [address] Dr. Roosevelt Verde MCHC (RBC) [Mass/Vol] 32.4 g/dL Normal 29.9-35.2 [facility] Comment on above: Performed By: #### C BC #### [facility] [address] [place] [address] Dr. Roosevelt Verde MCV (RBC) [Entitic vol] 104.8 fL Critically high 80.0-94.0 [facility] Comment on above: Performed By: #### C BC #### [facility] [address] [place] [address] Dr. Roosevelt Verde MONO # 0.6 103/ul Normal 0.3-0.8 [facility] Comment on above: Performed By: #### C BC #### [facility] [address] [place] [address] Dr. Roosevelt Verde Monocytes/100 WBC (Bld) 8.2 % Normal 1.7-12.0 [facility] Comment on above: Performed By: #### C BC #### [facility] [address] [place] [address] Dr. Roosevelt Verde NEUT # 5.1 103/ul Normal 1.4-6.5 [facility] Comment on above: Performed By: #### C BC #### [facility] [address] [place] [address] Dr. Roosevelt Verde Neutrophils/100 WBC (Bld) 68.7 % Normal 43.0-75.0 [facility] Comment on above: Performed By: #### C BC #### [facility] [address] [place] [address] Dr. Roosevelt Verde Platelet mean volume (Bld) [Entitic vol] 9.2 fL Critically low 9.5-13.5 [facility] Comment on above: Performed By: #### C BC #### [facility] [address] [place] [address] Dr. Roosevelt Verde PLT 286 103/ul Normal 150-450 [facility] Comment on above: Performed By: #### C BC #### [facility] [address] [place] [address] Dr. Roosevelt Verde RBC 3.74 106/ul Critically low 4.70-6.10 [facility] Comment on above: Performed By: #### C BC #### [facility] [address] [place] [address] Dr. Roosevelt Verde WBC 7.5 103/ul Normal 4.0-11.0 [facility] Comment on above: Performed By: #### C BC #### [facility] [address] [place] [address] Dr. Roosevelt Verde CREATININEon 07-20-2022 Creatinine [Mass/Vol] 1.53 mg/dL Critically high 0.70-1.30 [facility] Comment on above: Performed By: #### C QUE, CRP, ALT, AST #### [facility] [address] [place] [address] Dr. Roosevelt Verde EGFR-AF MALTESE 57 mL/min/1.73m2 Critically low >=60 [facility] Comment on above: Performed By: #### C QUE, CRP, ALT, AST #### [facility] [address] [address] [address] Roosevelt Verde EGFR-NON AF MALTESE 47 mL/min/1.73m2 Critically low >=60 [facility] Comment on above: Performed By: #### C QUE, CRP, ALT, AST #### [facility] [address] [place] [address] Dr. Roosevelt Verde CRPon 07-20-2022 CRP [Mass/Vol] mg/L Normal <=1.0 [facility] Comment on above: Performed By: #### C QUE, CRP, ALT, AST #### [facility] [address] [place] [address] Dr. Roosevelt Verde SED RATE WESTERGRENon 2022 SED RATE 9 mm/hr Normal <=20 [facility] Comment on above: Performed By: #### C BC #### [facility] [address] [place] [address] Dr. Roosevelt Verde SGOTon 07-20-2022 AST [Catalytic activity/Vol] 18 U/L Normal 15-37 [facility] Comment on above: Performed By: #### C QUE, CRP, ALT, AST #### [facility] [address] [place] [address] Dr. Roosevelt Verde SGPTon 07-20-2022 ALT [Catalytic activity/Vol] 44 U/L Normal 16-63 [facility] Comment on above: Performed By: #### C QUE, CRP, ALT, AST #### [facility] [address] [place] [address] Dr. Roosevelt Verde CBC AUTO DIFFon 05-23-2022 BASO # 0.1 103/ul Normal 0.0-0.1 [facility] Comment on above: Performed By: #### C BC #### [facility] [address] [place] [address] Dr. Roosevelt Verde Basophils/100 WBC (Bld) 0.5 % Normal 0.2-2.0 [facility] Comment on above: Performed By: #### C BC #### [facility] [address] [place] [address] Dr. Roosevelt Verde EO # 0.1 103/ul Normal 0.0-0.7 [facility] Comment on above: Performed By: #### C BC #### [facility] [address] [place] [address] Dr. Roosevelt Verde Eosinophils/100 WBC (Bld) 0.6 % Critically low 0.9-7.0 [facility] Comment on above: Performed By: #### C BC #### [facility] [address] [place] [address] Dr. Roosevelt Verde Erythrocyte distribution width (RBC) [Ratio] 14.0 % Normal 11.0-15.0 [facility] Comment on above: Performed By: #### C BC #### [facility] [address] [place] [address] Dr. Roosevelt Verde Hematocrit (Bld) [Volume fraction] 37.3 % Critically low 42.0-54.0 [facility] Comment on above: Performed By: #### C BC #### [facility] [address] [place] [address] Dr. Roosevelt Verde Hemoglobin (Bld) [Mass/Vol] 12.2 g/dL Critically low 14.0-18.0 [facility] Comment on above: Performed By: #### C BC #### [facility] [address] [place] [address] Dr. Roosevelt Verde IG # 0.03 10e3/ul Normal 0.00-0.03 [facility] Comment on above: Performed By: #### C BC #### [facility] [address] [place] [address] Dr. Roosevelt Verde IG % 0.3 % Normal 0.0-0.5 [facility] Comment on above: Performed By: #### C BC #### [facility] [address] [place] [address] Dr. Roosevelt Verde LYMPH # 1.6 103/ul Normal 1.2-3.8 [facility] Comment on above: Performed By: #### C BC #### [facility] [address] [place] [address] Dr. Roosevelt Verde Lymphocytes/100 WBC (Bld) 16.5 % Critically low 20.5-60.0 [facility] Comment on above: Performed By: #### C BC #### [facility] [address] [place] [address] Dr. Roosevelt Verde MANUAL DIFF REQ NO Normal [facility] Comment on above: Performed By: #### C BC #### [facility] [address] [place] [address] Dr. Roosevelt Verde MCH (RBC) [Entitic mass] 35.1 pg Critically high 25.9-34.0 [facility] Comment on above: Performed By: #### C BC #### [facility] [address] [place] [address] Dr. Roosevelt Verde MCHC (RBC) [Mass/Vol] 32.7 g/dL Normal 29.9-35.2 [facility] Comment on above: Performed By: #### C BC #### [facility] [address] [place] [address] Dr. Roosevelt Verde MCV (RBC) [Entitic vol] 107.2 fL Critically high 80.0-94.0 [facility] Comment on above: Result Comment: 1+ m acrocytosis Performed By: #### C BC #### [facility] [address] [place] [address] Dr. Roosevelt Verde MONO # 0.7 103/ul Normal 0.3-0.8 [facility] Comment on above: Performed By: #### C BC #### [facility] [address] [place] [address] Dr. Roosevelt Verde Monocytes/100 WBC (Bld) 7.6 % Normal 1.7-12.0 [facility] Comment on above: Performed By: #### C BC #### [facility] [address] [address] [address] Roosevelt Verde NEUT # 7.0 103/ul Critically high 1.4-6.5 [facility] Comment on above: Performed By: #### C BC #### [facility] [address] [address] [address] Roosevelt Verde Neutrophils/100 WBC (Bld) 74.5 % Normal 43.0-75.0 [facility] Comment on above: Performed By: #### C BC #### [facility] [address] [address] [address] Roosevelt Verde Platelet mean volume (Bld) [Entitic vol] 9.2 fL Critically low 9.5-13.5 [facility] Comment on above: Performed By: #### C BC #### [facility] [address] [address] [address] Roosevelt Verde PLT 296 103/ul Normal 150-450 [facility] Comment on above: Performed By: #### C BC #### [facility] [address] [place] [address] Dr. Roosevelt Verde RBC 3.48 106/ul Critically low 4.70-6.10 [facility] Comment on above: Performed By: #### C BC #### [facility] [address] [address] [address] Roosevelt Verde WBC 9.4 103/ul Normal 4.0-11.0 [facility] Comment on above: Performed By: #### C BC #### [facility] [id number] Roosevelt Verde CREATININEon 05-23-2022 Creatinine [Mass/Vol] 1.33 mg/dL Critically high 0.70-1.30 [facility] Comment on above: Performed By: #### A ST, CREA, CRP, ALT ####[facility] [id number] [address]Dr[address] Roosevelt Verde EGFR-AF MALTESE >60 Normal >=60 [facility] Comment on above: Performed By: #### A ST, CREA, CRP, ALT ####[facility] [id number] [address]Dr[address] Roosevelt Verde EGFR-NON AF MALTESE 56 mL/min/1.73m2 Critically low >=60 [facility] Comment on above: Performed By: #### A ST, CREA, CRP, ALT ####[facility] [id number] [place], [place] [address]Dr. Roosevelt Verde CRPon 05-23-2022 CRP 0.3 mg/dL Normal <=1.0 [facility] Comment on above: Performed By: #### A ST, CREA, CRP, ALT ####[facility] [id number] [place], [place] [address]Dr. Roosevelt Verde SED RATE WESTERGRENon 2022 SED RATE 11 mm/hr Normal <=20 [facility] Comment on above: Performed By: #### S EDR ####[facility] [id number] [place], [place] [address]Dr. Roosevelt Verde SGOTon 05-23-2022 AST [Catalytic activity/Vol] 20 U/L Normal 15-37 [facility] Comment on above: Performed By: #### A ST, CREA, CRP, ALT ####[facility] [id number] [place], [place] [address]Dr. Roosevelt Verde SGPTon 05-23-2022 ALT [Catalytic activity/Vol] 36 U/L Normal 16-63 [facility] Comment on above: Performed By: #### A ST, CREA, CRP, ALT ####[facility] [id number] [place], [place] [address]Dr. Roosevelt Verde QUANTIFERON TB GOLD PLUSon 1 05-24-2021 QuantiFERON Criteria Comment Normal [facility] Comment on above: Result Comment: Cayden tiFERON-TB [...] test. Performed By: #### C BC #### [facility] [address] [place] [address] Dr. Roosevelt Verde QuantiFERON Incubation Incubation performed. Normal [facility] Comment on above: Performed By: #### C BC #### [facility] [address] [place] [address] Dr. Roosevelt Verde QuantiFERON Mitogen Value 2.17 IU/mL Normal [facility] Comment on above: Performed By: #### C BC #### [facility] [address] [place] [address] Dr. Roosevelt Verde QuantiFERON Nil Value 0.03 IU/mL Normal [facility] Comment on above: Performed By: #### C BC #### [facility] [address] [place] [address] Dr. Roosevelt Verde QuantiFERON TB1 Ag Value 0.04 IU/mL Normal [facility] Comment on above: Performed By: #### C BC #### [facility] [address] [place] [address] Dr. Roosevelt Verde QuantiFERON TB2 Ag Value 0.03 IU/mL Normal [facility] [place] Comment on above: Performed By: #### C BC #### [facility] [address] [place] [address] Dr. Roosevelt Verde QuantiFERON-TB Gold Plus Negative Normal Negative [facility] [place] Comment on above: Result Comment: No r esponse to M tuberculosis antigens detected. Infection with M tuberculosis is unlikely, but high risk individuals should be considered for additional testing (ATS/IDSA/CDC Clinical Practice Guidelines, 2017). The reference range is an Antigen minus Nil result of <0.35 IU/mL. Chemiluminescence immunoassay methodology Performed By: #### C BC #### [facility] [address] [place] [address] Dr. Roosevelt Verde HEP B SURFACE ANTIGEN SCREEN on 03-22-2022 HBsAg Screen Negative Normal Negative [facility] [place] Comment on above: Performed By: #### H BSANS ####[facility] [address] [id number]. Roosevelt Verde HEPATITIS C ANTIBODYon 03-22 Hep C Virus Ab <0.1 Normal 0.0-0.9 [facility] Comment on above: Result Comment: Nega [...] Hepatitis C Virus (HCV) RNA, Diagnosis, DAVON ([id number]) and Hepatitis C Virus (HCV) Antibody with reflex to Quantitative Real-time PCR ([id number]). Performed By: #### H CV ####[facility] [address] [address]DrMichael Verde HIV 1 AND 2 WITH REFLEXon HIV Screen 4th Generation wRfx Non-Reactive Normal Non Reactive [facility] Comment on above: Result Comment: HIV Negative HIV-1/HIV-2 antibodies and HIV-1 p24 antigen were NOT detected. There is no laboratory evidence of HIV infection. Performed By: #### C BC #### [facility] [address] [place] [address] Dr. Roosevelt Verde CBC AUTO DIFFon 03-21-2022 BASO # 0.0 103/ul Normal 0.0-0.1 [facility] [place] Comment on above: Performed By: #### C BC #### [facility] [address] [place] [address] Dr. Roosevelt Verde Basophils/100 WBC (Bld) 0.3 % Normal 0.2-2.0 [facility] Comment on above: Performed By: #### C BC #### [facility] [address] [place] [address] Dr. Roosevelt Verde EO # 0.1 103/ul Normal 0.0-0.7 [facility] Comment on above: Performed By: #### C BC #### [facility] [address] [place] [address] Dr. Roosevelt Verde Eosinophils/100 WBC (Bld) 1.1 % Normal 0.9-7.0 [facility] [place] Comment on above: Performed By: #### C BC #### [facility] [address] [place] [address] Dr. Roosevelt Verde Erythrocyte distribution width (RBC) [Ratio] 14.6 % Normal 11.0-15.0 [facility] [place] Comment on above: Performed By: #### C BC #### [facility] [address] [place] [address] Dr. Roosevelt Verde Hematocrit (Bld) [Volume fraction] 34.7 % Critically low 42.0-54.0 [facility] [place] Comment on above: Performed By: #### C BC #### [facility] [address] [place] [address] Dr. Roosevelt Verde Hemoglobin (Bld) [Mass/Vol] 11.4 g/dL Critically low 14.0-18.0 [facility] [place] Comment on above: Performed By: #### C BC #### [facility] [address] [place] [address] Dr. Roosevelt Verde IG # 0.02 10e3/ul Normal 0.00-0.03 [facility] [place] Comment on above: Performed By: #### C BC #### [facility] [address] [place] [address] Dr. Roosevelt Verde IG % 0.3 % Normal 0.0-0.5 [facility] [place] Comment on above: Performed By: #### C BC #### [facility] [address] [place] [address] Dr. Roosevelt Verde LYMPH # 1.1 103/ul Critically low 1.2-3.8 [facility] Comment on above: Performed By: #### C BC #### [facility] [address] [place] [address] Dr. Roosevelt Verde Lymphocytes/100 WBC (Bld) 16.9 % Critically low 20.5-60.0 [facility] [place] Comment on above: Performed By: #### C BC #### [facility] [address] [place] [address] Dr. Roosevelt Verde MANUAL DIFF REQ NO Normal [facility] Comment on above: Performed By: #### C BC #### [facility] [address] [place] [address] Dr. Roosevelt Verde MCH (RBC) [Entitic mass] 33.8 pg Normal 25.9-34.0 [facility] [place] Comment on above: Performed By: #### C BC #### [facility] [address] [place] [address] Dr. Roosevelt Verde MCHC (RBC) [Mass/Vol] 32.9 g/dL Normal 29.9-35.2 [facility] [place] Comment on above: Performed By: #### C BC #### [facility] [address] [place] [address] Dr. Roosevelt Verde MCV (RBC) [Entitic vol] 103.0 fL Critically high 80.0-94.0 [facility] [place] Comment on above: Performed By: #### C BC #### [facility] [address] [place] [address] Dr. Roosevelt Verde MONO # 0.6 103/ul Normal 0.3-0.8 [facility] [place] Comment on above: Performed By: #### C BC #### [facility] [address] [place] [address] Dr. Roosevelt Verde Monocytes/100 WBC (Bld) 9.8 % Normal 1.7-12.0 [facility] [place] Comment on above: Performed By: #### C BC #### [facility] [address] [place] [address] Dr. Roosevelt Verde NEUT # 4.6 103/ul Normal 1.4-6.5 [facility] Comment on above: Performed By: #### C BC #### [facility] [address] [place] [address] Dr. Roosevelt Verde Neutrophils/100 WBC (Bld) 71.6 % Normal 43.0-75.0 [facility] [place] Comment on above: Performed By: #### C BC #### [facility] [address] [place] [address] Dr. Roosevelt Verde Platelet mean volume (Bld) [Entitic vol] 9.6 fL Normal 9.5-13.5 [facility] [place] Comment on above: Performed By: #### C BC #### [facility] [address] [address] [address] Roosevelt Verde PLT 327 103/ul Normal 150-450 [facility] [place] Comment on above: Performed By: #### C BC #### [facility] [address] [address] [address] Roosevelt Verde RBC 3.37 106/ul Critically low 4.70-6.10 [facility] Comment on above: Performed By: #### C BC #### [facility] [address] [address] [address] Roosevelt Verde WBC 6.5 103/ul Normal 4.0-11.0 [facility] [place] Comment on above: Performed By: #### C BC #### [facility] [address] [place] [address] Dr. Roosevelt Verde CREATININEon 03-21-2022 Creatinine [Mass/Vol] 2.19 mg/dL Critically high 0.70-1.30 [facility] [place] Comment on above: Performed By: #### C BC #### [facility] [address] [place] [address] Dr. Roosevelt Verde EGFR-AF MALTESE 38 mL/min/1.73m2 Critically low >=60 [facility] [place] Comment on above: Performed By: #### C BC #### [facility] [address] [place] [address] Dr. Roosevelt Verde EGFR-NON AF MALTESE 31 mL/min/1.73m2 Critically low >=60 [facility] [place] Comment on above: Performed By: #### C BC #### [facility] [address] [address] [address] Roosevelt Verde CRPon 03-21-2022 CRP 0.4 mg/dL Normal <=1.0 [facility] [place] Comment on above: Performed By: #### C BC #### [facility] [address] [address] [address] Roosevelt Verde [facility] SED RATE 49 mm/hr Critically high <=20 [facility] Comment on above: Performed By: #### S EDR #### [facility] [address] [place] [address] Dr. Roosevelt Thomasn 03-21-2022 AST [Catalytic activity/Vol] 12 U/L Critically low 15-37 [facility] [place] Comment on above: Performed By: #### C BC #### [facility] [address] [place] [address] Dr. Roosevelt PAGANPTon 03-21-2022 ALT [Catalytic activity/Vol] 27 U/L Normal 16-63 [facility] [place] Comment on above: Performed By: #### C BC #### [facility] [address] [place] [address] Dr. Roosevelt Verde Covid-19 PCR ([facility])on SARS-CoV-2 (COVID-19) RNA DAVON+probe Ql (Unsp spec) Not detected Normal NOT DETECTED [facility] Comment on above: Result Comment: This test is not yet approved or cleared by the [place] FDA. When there are no FDA-approved or cleared tests available, and other criteria are met, FDA can make tests available under an emergency access mechanism called an Emergency Use Authorization (EUA). The EUA for this test is supported by the [place] of Health and Human Service's (HHS's) declaration [...] #### C QUE, CRP, ALT, AST #### [facility] [address] [place] [address] [address] [address] Roosevelt Verde INFLUENZA A AND B AGon 03-08 INFLUBNEGH SEE BELOW Normal [facility] Comment on above: Result Comment: Nega tive for Flu B protein antigen. Infection due to Flu B cannot be ruled out. Flu B antigen in the sample may be below the detection limit of the test. Performed By: #### C BC #### [facility] [address] [address] [address] Roosevelt Verde INFLUENZA A AG Positive Abnormal NEGATIVE SEE COMMENT [facility] [place] Comment on above: Performed By: #### C BC #### [facility] [address] [address] [address] Roosevelt Verde INFLUENZA B AG Negative Normal NEGATIVE SEE COMMENT [facility] [place] Comment on above: Performed By: #### C BC #### [facility] [address] [address] [address] Roosevelt Verde INFLUPOSH SEE BELOW Normal [facility] [place] Comment on above: Result Comment: NOTE : Live attenuated influenzae vaccine viruses can cause a positive result for a rapid influenza diagnostic test if administered up to 7 days prior to rapid testing. Performed By: #### C BC #### [facility] [address] [address] [address] Roosevelt Verde INTERNAL CONTROLS Within Normal Limits Normal Within Normal Limits [facility] Comment on above: Performed By: #### C BC #### [facility] [address] [place] [address] Dr. Roosevelt Verde BUNon 01-27-2022 Urea nitrogen [Mass/Vol] 30.0 mg/dL Critically high 7.0-18.0 [facility] Comment on above: Performed By: #### C QUE, BUN ####[facility] [address] [address]. Roosevelt Verde CREATININEon 01-27-2022 Creatinine [Mass/Vol] 2.55 mg/dL Critically high 0.70-1.30 [facility] Comment on above: Performed By: #### C QUE, BUN ####[facility] [address] [address]. Roosevelt Verde EGFR-AF MALTESE 32 mL/min/1.73m2 Critically low >=60 [facility] Comment on above: Performed By: #### C QUE, BUN ####[facility] [address] [address]. Roosevelt Verde EGFR-NON AF MALTESE 26 mL/min/1.73m2 Critically low >=60 [facility] Comment on above: Performed By: #### C QUE, BUN ####[facility] [address] [address]. Roosevelt Verde UA RANDOM W/MICROSCOPICon BACTERIA NONE SEEN Normal NONE SEEN [facility] Comment on above: Performed By: #### U AMIC #### [facility] [address] [address] [address] Roosevelt Verde Bilirubin Ql (U) Negative Normal NEGATIVE [facility] Comment on above: Performed By: #### U AMIC #### [facility] [address] [address] [address] Roosevelt Verde CAST SEEN Abnormal NONE SEEN [facility] [place] Comment on above: Performed By: #### U AMIC #### [facility] [address] [address] [address] Roosevelt Verde Clarity (U) CLEAR Normal CLEAR [facility] Comment on above: Performed By: #### U AMIC #### [facility] [address] [address] [address] Roosevelt Verde Color (U) DK. YELLOW Normal YELLOW [facility] Comment on above: Performed By: #### U AMIC #### [facility] [address] [address] [address] Roosevelt Verde Crystals LM Nom (Urine sed) NONE SEEN Normal NONE SEEN [facility] Comment on above: Performed By: #### U AMIC #### [facility] [address] [address] [address] Roosevelt Verde Epithelial cells LM Ql (Urine sed) NONE SEEN Normal NONE SEEN /RARE [facility] Comment on above: Performed By: #### U AMIC #### [facility] [address] [address] [address] Roosevelt Verde Glucose Ql (U) Negative Normal NEGATIVE [facility] Comment on above: Performed By: #### U AMIC #### [facility] [address] [address] [address] Roosevelt Verde Hemoglobin Ql (U) Negative Normal NEGATIVE [facility] Comment on above: Performed By: #### U AMIC #### [facility] [address] [address] [address] Roosevelt Verde Ketones Ql (U) TRACE Abnormal NEGATIVE [facility] Comment on above: Performed By: #### U AMIC #### [facility] [address] [address] [address] Roosevelt Verde LEUKOCYTES Negative Normal NEGATIVE [facility] [place] Comment on above: Performed By: #### U AMIC #### [facility] [address] [address] [address] Roosevelt Verde MUCOUS NONE SEEN Normal NONE SEEN [facility] Comment on above: Performed By: #### U AMIC #### [facility] [address] [address] [address] Roosevelt Verde Nitrite Ql (U) Negative Normal NEGATIVE [facility] Comment on above: Performed By: #### U AMIC #### [facility] [address] [address] [address] Roosevelt Verde pH (U) 6.0 [pH] Normal 5-9 [facility] [place] Comment on above: Performed By: #### U AMIC #### [facility] [address] [address] [address] Roosevelt Verde RBC NONE SEEN Abnormal 0-2 [facility] Comment on above: Performed By: #### U AMIC #### [facility] [address] [address] [address] Roosevelt Verde SPEC GRAVITY 1.025 Normal 1.005-<=1.025 [facility] Comment on above: Performed By: #### U AMIC #### [facility] [address] [address] [address] Roosevelt Verde UA PROTEIN Negative Normal NEGATIVE/ TRACE [facility] Comment on above: Performed By: #### U AMIC #### [facility] [address] [address] [address] Roosevelt Verde Urobilinogen Qn (U) 0.2 {Gogo'U}/dL Normal 0.2 - 1. 0 [facility] Comment on above: Performed By: #### U AMIC #### [facility] [address] [address] [address] Roosevelt Verde WBC 0-2 Abnormal NONE SEEN [facility] Comment on above: Performed By: #### U AMIC #### [facility] [address] [address] [address] Roosevelt Verde CBC AUTO DIFFon 01-12-2022 BASO # 0.0 103/ul Normal 0.0-0.1 [facility] Comment on above: Performed By: #### C BC ####[facility] [address] [address]Dr[address] Verde Basophils/100 WBC (Bld) 0.6 % Normal 0.2-2.0 [facility] [place] Comment on above: Performed By: #### C BC ####[facility] [address] [address] Verde EO # 0.1 103/ul Normal 0.0-0.7 [facility] Comment on above: Performed By: #### C BC ####[facility] [address] [address]Dr[address] Verde Eosinophils/100 WBC (Bld) 1.5 % Normal 0.9-7.0 [facility] Comment on above: Performed By: #### C BC ####[facility] [address] [address]Dr[address] Verde Erythrocyte distribution width (RBC) [Ratio] 13.5 % Normal 11.0-15.0 [facility] Comment on above: Performed By: #### C BC ####[facility] [address] [address]Dr[address] Verde Hematocrit (Bld) [Volume fraction] 36.6 % Critically low 42.0-54.0 [facility] Comment on above: Performed By: #### C BC ####[facility] [address] [id number]. Roosevelt Verde Hemoglobin (Bld) [Mass/Vol] 11.8 g/dL Critically low 14.0-18.0 [facility] Comment on above: Performed By: #### C BC ####[facility] [address] [address]Dr. Roosevelt Verde IG # 0.03 10e3/ul Normal 0.00-0.03 [facility] Comment on above: Performed By: #### C BC ####[facility] [address] [place], [place] [address]Dr. Roosevelt Verde IG % 0.5 % Normal 0.0-0.5 [facility] Comment on above: Performed By: #### C BC ####[facility] [address] [place], [place] [address]Dr. Betzaidasánchez Verde LYMPH # 1.5 103/ul Normal 1.2-3.8 [facility] Comment on above: Performed By: #### C BC ####[facility] [address] [place], [place] [address]Dr. Betzaidasánchez Verde Lymphocytes/100 WBC (Bld) 22.3 % Normal 20.5-60.0 [facility] Comment on above: Performed By: #### C BC ####[facility] [address] [place], [place] [address]Dr. Betzaidasánchez Verde MANUAL DIFF REQ NO Normal [facility] Comment on above: Performed By: #### C BC ####[facility] [address] [place], [place] [address]Dr. Roosevelt Verde MCH (RBC) [Entitic mass] 34.2 pg Critically high 25.9-34.0 [facility] Comment on above: Performed By: #### C BC ####[facility] [address] [place], [place] [address]Dr. Roosevelt Verde MCHC (RBC) [Mass/Vol] 32.2 g/dL Normal 29.9-35.2 [facility] Comment on above: Performed By: #### C BC ####[facility] [address] [id number]. Roosevelt Verde MCV (RBC) [Entitic vol] 106.1 fL Critically high 80.0-94.0 [facility] Comment on above: Result Comment: 2+ m acrocytosis Performed By: #### C BC ####[facility] [address] [id number]. Roosevelt Verde MONO # 0.6 103/ul Normal 0.3-0.8 [facility] Comment on above: Performed By: #### C BC ####[facility] [address] [id number]. Roosevelt Verde Monocytes/100 WBC (Bld) 8.7 % Normal 1.7-12.0 [facility] Comment on above: Performed By: #### C BC ####[facility] [address] [place], [place] [id number]. Roosevelt Verde NEUT # 4.4 103/ul Normal 1.4-6.5 [facility] Comment on above: Performed By: #### C BC ####[facility] [address] [id number]. Roosevelt Verde Neutrophils/100 WBC (Bld) 66.4 % Normal 43.0-75.0 [facility] Comment on above: Performed By: #### C BC ####[facility] [address] [id number]. Roosevelt Verde Platelet mean volume (Bld) [Entitic vol] 9.3 fL Critically low 9.5-13.5 The [facility] Comment on above: Performed By: #### C BC ####[facility] [address] [id number]. Roosevelt Verde PLT 325 103/ul Normal 150-450 [facility] Comment on above: Performed By: #### C BC ####[facility] [address] [id number]. Betzaidasánchez Verde RBC 3.45 106/ul Critically low 4.70-6.10 [facility] Comment on above: Performed By: #### C BC ####[facility] [address] [address]Dr. Roosevelt Verde WBC 6.6 103/ul Normal 4.0-11.0 [facility] Comment on above: Performed By: #### C BC ####[facility] [address] [address]Dr. Roosevelt Verde CREATININEon 01-12-2022 Creatinine [Mass/Vol] 1.89 mg/dL Critically high 0.70-1.30 [facility] Comment on above: Performed By: #### C QUE, CRP, ALT, AST #### [facility] [address] [address] [address] Roosevelt Verde EGFR-AF MALTESE 45 mL/min/1.73m2 Critically low >=60 [facility] Comment on above: Performed By: #### C QUE, CRP, ALT, AST #### [facility] [address] [place] [address] Dr. Roosevelt Verde EGFR-NON AF MALTESE 37 mL/min/1.73m2 Critically low >=60 [facility] [facility] [place] Comment on above: Performed By: #### C QUE, CRP, ALT, AST #### [facility] [address] [place] [address] Dr. Roosevelt Verde CRPon 01-12-2022 CRP 0.2 mg/dL Normal <=1.0 [facility] [place] Comment on above: Performed By: #### C QUE, CRP, ALT, AST #### [facility] [address] [address] [address] Roosevelt Verde SED RATE WESTERGRENon 2021 SED RATE 24 mm/hr Critically high <=20 [facility] Comment on above: Performed By: #### S EDR ####[facility] [id number] [address]Dr. Roosevelt Verde SGOTon 01-12-2022 AST [Catalytic activity/Vol] 12 U/L Critically low 15-37 [facility] [place] Comment on above: Performed By: #### C QUE, CRP, ALT, AST #### [facility] [address] [address] [address] Roosevelt Verde SGPTon 01-12-2022 ALT [Catalytic activity/Vol] 26 U/L Normal 16-63 [facility] [place] Comment on above: Performed By: #### C QUE, CRP, ALT, AST #### [facility] [address] [address] [address] Roosevelt Verde VIT D, 1,25 DIHYDROXon 01-11 VIT. D 1,25 37.8 Normal [facility] Comment on above: Result Comment: Pl ease note reference interval change Reference range: 24.8 to 81.5 Unit: pg/mL PERFORMED AT [facility] Performed By: #### L [id number] #### Testing performed at [facility] 25 0H VITAMIN D LEVELon 12-31 25 0H VITAMIN D LEVEL 40.4 NG/ML [facility] Comment on above: Result Comment: DEFICIENT <20 NG/ML INSUFFICIENT 20-<30 NG/ML SUFFICIENT 30-100 NG/ML POTENTIAL TOXICITY >100 NG/ML [facility] 01-10-2022 AST [Catalytic activity/Vol] 22 U/L Normal 17-59 [facility] Comment on above: Performed By: #### L VD125 #### Testing performed at [facility] CREATININE,SERUMon Creatinine [Mass/Vol] 1.78 mg/dL High 0.7-1.2 [facility] Comment on above: Performed By: #### L VD125 #### Testing performed at [facility] EST. GFR, 51 ml/min/1.73sq.m [facility] Comment on above: Performed By: #### L VD125 #### Testing performed at [facility] EST. GFR,Non 42 ml/min/1.73sq.m [facility] Comment on above: Performed By: #### L VD125 #### Testing performed at [facility] GFR Information Average GFR for 50-59 years old = 93. Normal [facility] Comment on above: Result Comment: Vasc Tech alvin Kidney disease, GFR = <60. Kidney failure, GFR = <15. The GFR estimate is not adjusted for extreme body surface area or acute process, nor has it been validated for women or ethnic groups other than and . Performed By: #### L VD125 #### Testing performed at [facility] VITAMIN D (25-HYDROXY,TOTAL) on 01-10-2022 25-hydroxyvitamin D [Mass/Vol] 40.4 NG/ML [facility] Comment on above: DEFICIENT <20 NG/ML INSUFFICIENT 20-<30 NG/ML SUFFICIENT 30-100 NG/ML POTENTIAL TOXICITY >100 NG/ML [facility] CBC AUTO DIFFon 11-17-2021 BASO # 0.0 103/ul Normal 0.0-0.1 [facility] [place] Comment on above: Performed By: #### C BC #### [facility] [address] [address] [address] Roosevelt Verde Basophils/100 WBC (Bld) 0.6 % Normal 0.2-2.0 [facility] [place] Comment on above: Performed By: #### C BC #### [facility] [address] [address] [address] Roosevelt Verde EO # 0.1 103/ul Normal 0.0-0.7 [facility] [place] Comment on above: Performed By: #### C BC #### [facility] [address] [address] [address] Roosevelt Verde Eosinophils/100 WBC (Bld) 1.4 % Normal 0.9-7.0 [facility] Comment on above: Performed By: #### C BC #### [facility] [address] [address] [address] Roosevelt Verde Erythrocyte distribution width (RBC) [Ratio] 15.4 % Critically high 11.0-15.0 [facility] [place] Comment on above: Performed By: #### C BC #### [facility] [address] [address] [address] Roosevelt Verde Hematocrit (Bld) [Volume fraction] 31.7 % Critically low 42.0-54.0 [facility] [place] Comment on above: Performed By: #### C BC #### [facility] [address] [place] [address] Dr. Roosevelt Verde Hemoglobin (Bld) [Mass/Vol] 10.3 g/dL Critically low 14.0-18.0 [facility] [place] Comment on above: Performed By: #### C BC #### [facility] [address] [place] [address] Dr. Roosevelt Verde IG # 0.01 10e3/ul Normal 0.00-0.03 [facility] [place] Comment on above: Performed By: #### C BC #### [facility] [address] [place] [address] Dr. Roosevelt Verde IG % 0.2 % Normal 0.0-0.5 [facility] [place] Comment on above: Performed By: #### C BC #### [facility] [address] [place] [address] Dr. Roosevelt Verde LYMPH # 1.2 103/ul Normal 1.2-3.8 [facility] Comment on above: Performed By: #### C BC #### [facility] [address] [place] [address] Dr. Roosevelt Verde Lymphocytes/100 WBC (Bld) 25.2 % Normal 20.5-60.0 [facility] [place] Comment on above: Performed By: #### C BC #### [facility] [address] [place] [address] Dr. Roosevelt Verde MANUAL DIFF REQ NO Normal [facility] Comment on above: Performed By: #### C BC #### [facility] [address] [place] [address] Dr. Roosevelt Verde MCH (RBC) [Entitic mass] 35.0 pg Critically high 25.9-34.0 [facility] Comment on above: Performed By: #### C BC #### [facility] [address] [place] [address] Dr. Roosevelt Verde MCHC (RBC) [Mass/Vol] 32.5 g/dL Normal 29.9-35.2 [facility] Comment on above: Performed By: #### C BC #### [facility] [address] [address] [address] Roosevelt Verde MCV (RBC) [Entitic vol] 107.8 fL Critically high 80.0-94.0 [facility] [place] Comment on above: Performed By: #### C BC #### [facility] [address] [address] [address] Roosevelt Verde MONO # 0.5 103/ul Normal 0.3-0.8 [facility] [place] Comment on above: Performed By: #### C BC #### [facility] [address] [address] [address] Roosevelt Verde Monocytes/100 WBC (Bld) 11.0 % Normal 1.7-12.0 [facility] [place] Comment on above: Performed By: #### C BC #### [facility] [address] [address] [address] Roosevelt Verde NEUT # 3.0 103/ul Normal 1.4-6.5 [facility] [place] Comment on above: Performed By: #### C BC #### [facility] [address] [address] [address] Roosevelt Verde Neutrophils/100 WBC (Bld) 61.6 % Normal 43.0-75.0 [facility] [place] Comment on above: Performed By: #### C BC #### [facility] [address] [address] [address] Roosevelt Verde Platelet mean volume (Bld) [Entitic vol] 8.6 fL Critically low 9.5-13.5 [facility] Comment on above: Performed By: #### C BC #### [facility] [address] [address] [address] Roosevelt Verde PLT 326 103/ul Normal 150-450 [facility] Comment on above: Performed By: #### C BC #### [facility] [address] [address] [address] Roosevelt Verde RBC 2.94 106/ul Critically low 4.70-6.10 [facility] Comment on above: Performed By: #### C BC #### [facility] [address] [address] [address] Roosevelt Verde WBC 4.9 103/ul Normal 4.0-11.0 [facility] Comment on above: Performed By: #### C BC #### [facility] [address] [address] [address] Roosevelt Verde CREATININEon 11-17-2021 Creatinine [Mass/Vol] 1.02 mg/dL Normal 0.70-1.30 [facility] Comment on above: Performed By: #### C QUE, ALT, AST, CRP ####[facility] [id number] [id number] Roosevelt Verde EGFR-AF MALTESE >60 Normal >=60 [facility] Comment on above: Performed By: #### C QUE, ALT, AST, CRP ####[facility] [id number] [address]Dr. Roosevelt Verde EGFR-NON AF MALTESE >60 Normal >=60 [facility] Comment on above: Performed By: #### C QUE, ALT, AST, CRP ####[facility] [id number] [address]Dr. Roosevelt Verde CRPon 11-17-2021 CRP [Mass/Vol] mg/L Normal <=1.0 [facility] Comment on above: Performed By: #### C QUE, ALT, AST, CRP ####[facility] [id number] [id number] Roosevelt Verde SED RATE WESTERGRENon 2021 SED RATE 3 mm/hr Normal <=20 [facility] Comment on above: Performed By: #### S EDR ####[facility] [id number] [id number]. Roosevelt Verde SGOTon 11-17-2021 AST [Catalytic activity/Vol] 13 U/L Critically low 15-37 [facility] Comment on above: Performed By: #### C QUE, ALT, AST, CRP ####[facility] [id number] [address]Dr. Roosevelt Verde SGPTon 11-17-2021 ALT [Catalytic activity/Vol] 22 U/L Normal 16-63 [facility] [place] Comment on above: Performed By: #### C QUE, ALT, AST, CRP ####[facility] [id number] [place], [place] [address]Dr. Roosevelt Verde VIT D 25-OH LABCORPon 2021 Vitamin D, 25-Hydroxy 40.1 ng/mL Normal 30.0-100.0 [facility] [place] Comment on above: Result Comment: Dunia min D deficiency has been defined by the [employer] of [employer] and an Endocrine Society practice guideline as a level of serum 25-OH vitamin D less than 20 ng/mL (1,2). The Endocrine Society went on to further define vitamin D insufficiency as a level between 21 and 29 ng/mL (2). 1. IOM ([place] of Medicine). 2010. Dietary reference intakes for calcium and D. Elena [place]: The National Academies Press. 2. Roberta MF, Ofelia [place], Alden BEARD, et al. Evaluation, treatment, and prevention of vitamin D deficiency: an Endocrine Society clinical practice guideline. JCEM. 2010; 96(7):1911-30. Performed By: #### C BC #### [facility] [address] [address] [address] Roosevelt Verde CBC AUTO DIFFon 10-23-2021 BASO # 0.1 103/ul Normal 0.0-0.1 [facility] [place] Comment on above: Performed By: #### C QUE, CRP, ALT, AST #### [facility] [address] [address] [address] Roosevelt Verde Basophils/100 WBC (Bld) 0.5 % Normal 0.2-2.0 [facility] [place] Comment on above: Performed By: #### C QUE, CRP, ALT, AST #### [facility] [address] [address] [address] Roosevelt Verde EO # 0.1 103/ul Normal 0.0-0.7 [facility] [place] Comment on above: Performed By: #### C QUE, CRP, ALT, AST #### [facility] [address] [place] [address] Dr. Roosevelt Verde Eosinophils/100 WBC (Bld) 1.0 % Normal 0.9-7.0 [facility] [place] Comment on above: Performed By: #### C QUE, CRP, ALT, AST #### [facility] [address] [place] [address] Dr. Roosevelt Verde Erythrocyte distribution width (RBC) [Ratio] 13.4 % Normal 11.0-15.0 [facility] Comment on above: Performed By: #### C QUE, CRP, ALT, AST #### [facility] [address] [place] [address] Dr. Roosevelt Verde Hematocrit (Bld) [Volume fraction] 43.1 % Normal 42.0-54.0 [facility] [place] Comment on above: Performed By: #### C QUE, CRP, ALT, AST #### [facility] [address] [place] [address] Dr. Roosevelt Verde Hemoglobin (Bld) [Mass/Vol] 14.4 g/dL Normal 14.0-18.0 [facility] [place] Comment on above: Performed By: #### C QUE, CRP, ALT, AST #### [facility] [address] [place] [address] Dr. Roosevelt Verde IG # 0.05 10e3/ul Critically high 0.00-0.03 [facility] Comment on above: Performed By: #### C QUE, CRP, ALT, AST #### [facility] [address] [place] [address] Dr. Roosevelt Verde IG % 0.5 % Normal 0.0-0.5 [facility] [place] Comment on above: Performed By: #### C QUE, CRP, ALT, AST #### [facility] [address] [place] [address] Dr. Roosevelt Verde LYMPH # 1.9 103/ul Normal 1.2-3.8 [facility] [place] Comment on above: Performed By: #### C QUE, CRP, ALT, AST #### [facility] [address] [place] [address] Dr. Roosevelt Verde Lymphocytes/100 WBC (Bld) 19.3 % Critically low 20.5-60.0 [facility] Comment on above: Performed By: #### C QUE, CRP, ALT, AST #### [facility] [address] [place] [address] Dr. Roosevelt Verde MANUAL DIFF REQ NO Normal [facility] Comment on above: Performed By: #### C QUE, CRP, ALT, AST #### [facility] [address] [place] [address] Dr. Roosevelt Verde MCH (RBC) [Entitic mass] 34.4 pg Critically high 25.9-34.0 [facility] Comment on above: Performed By: #### C QUE, CRP, ALT, AST #### [facility] [address] [place] [address] Dr. Roosevelt Verde MCHC (RBC) [Mass/Vol] 33.4 g/dL Normal 29.9-35.2 [facility] Comment on above: Performed By: #### C QUE, CRP, ALT, AST #### [facility] [address] [place] [address] Dr. Roosevelt Verde MCV (RBC) [Entitic vol] 102.9 fL Critically high 80.0-94.0 [facility] Comment on above: Performed By: #### C QUE, CRP, ALT, AST #### [facility] [address] [place] [address] Dr. Roosevelt Verde MONO # 0.8 103/ul Normal 0.3-0.8 [facility] Comment on above: Performed By: #### C QUE, CRP, ALT, AST #### [facility] [address] [place] [address] Dr. Roosevelt Verde Monocytes/100 WBC (Bld) 8.7 % Normal 1.7-12.0 [facility] Comment on above: Performed By: #### C QUE, CRP, ALT, AST #### [facility] [address] [place] [address] Dr. Roosevelt Verde NEUT # 6.8 103/ul Critically high 1.4-6.5 [facility] Comment on above: Performed By: #### C QUE, CRP, ALT, AST #### [facility] [address] [address] [address] Roosevelt Verde Neutrophils/100 WBC (Bld) 70.0 % Normal 43.0-75.0 [facility] [place] Comment on above: Performed By: #### C QUE, CRP, ALT, AST #### [facility] [address] [place] [address] Dr. Roosevelt Verde Platelet mean volume (Bld) [Entitic vol] 9.2 fL Critically low 9.5-13.5 [facility] [place] Comment on above: Performed By: #### C QUE, CRP, ALT, AST #### [facility] [address] [place] [address] Dr. Roosevelt Verde PLT 328 103/ul Normal 150-450 [facility] Comment on above: Performed By: #### C QUE, CRP, ALT, AST #### [facility] [address] [place] [address] Dr. Roosevelt Verde RBC 4.19 106/ul Critically low 4.70-6.10 [facility] Comment on above: Performed By: #### C QUE, CRP, ALT, AST #### [facility] [address] [place] [address] Dr. Roosevelt Verde WBC 9.7 103/ul Normal 4.0-11.0 [facility] [place] Comment on above: Performed By: #### C QUE, CRP, ALT, AST #### [facility] [address] [place] [address] Dr. Roosevelt Verde ER URINE PROFILEon 2 Bilirubin Ql (U) Negative Normal NEGATIVE [facility] Comment on above: Performed By: #### C BC #### [facility] [address] [place] [address] Dr. Roosevelt Verde Clarity (U) CLEAR Normal CLEAR [facility] Comment on above: Performed By: #### C BC #### [facility] [address] [place] [address] Dr. Roosevelt Verde Color (U) YELLOW Normal YELLOW [facility] Comment on above: Performed By: #### C BC #### [facility] [address] [address] [address] Roosevelt JONES A micrscopic examination will be performed if indicated. Normal [facility] Comment on above: Performed By: #### C BC #### [facility] [address] [place] [address] Dr. Roosevelt Verde Glucose Ql (U) Negative Normal NEGATIVE [facility] Comment on above: Performed By: #### C BC #### [facility] [address] [address] [address] Roosevelt Verde Hemoglobin Ql (U) Negative Normal NEGATIVE [facility] Comment on above: Performed By: #### C BC #### [facility] [address] [place] [address] Dr. Roosevelt Verde Ketones Ql (U) Negative Normal NEGATIVE [facility] Comment on above: Performed By: #### C BC #### [facility] [address] [place] [address] Dr. Roosevelt Verde LEUKOCYTES Negative Normal NEGATIVE [facility] [place] Comment on above: Performed By: #### C BC #### [facility] [address] [place] [address] Dr. Roosevelt Verde Nitrite Ql (U) Negative Normal NEGATIVE [facility] Comment on above: Performed By: #### C BC #### [facility] [address] [place] [address] Dr. Roosevelt Verde pH (U) 5.5 [pH] Normal 5-9 [facility] [place] Comment on above: Performed By: #### C BC #### [facility] [address] [address] [address] Roosevelt Verde SPEC GRAVITY 1.025 Normal 1.005-<=1.025 [facility] Comment on above: Performed By: #### C BC #### [facility] [address] [place] [address] Dr. Roosevelt Verde UA PROTEIN Negative Normal NEGATIVE/ TRACE [facility] Comment on above: Performed By: #### C BC #### [facility] [address] [place] [address] Dr. Roosevelt Verde UR MICRO IND NOT INDICATED Normal [facility] Comment on above: Result Comment: Prev iously reported as: INDICATED On 10/23/2021 16:15 By CV2 Performed By: #### C BC #### [facility] [address] [place] [address] Dr. Roosevelt Verde Urobilinogen Qn (U) 0.2 {Gogo'U}/dL Normal 0.2 - 1. 0 [facility] [place] Comment on above: Performed By: #### C BC #### [facility] [address] [place] [address] Dr. Roosevelt Verde LIPASEon 10-23-2021 Lipase [Catalytic activity/Vol] 137.0 U/L Normal 73.0-393.0 [facility] [place] Comment on above: Performed By: #### C BC #### [facility] [address] [place] [address] Dr. Roosevelt Verde PROF 14(COMP METB)on 022 Albumin [Mass/Vol] 4.0 g/dL Normal 3.4-5.[address] [facility] Comment on above: Performed By: #### C BC #### [facility] [address] [place] [address] Dr. Roosevelt Verde Albumin/Globulin [Mass ratio] 1.3 {ratio} Normal [facility] [place] Comment on above: Performed By: #### C BC #### [facility] [address] [place] [address] Dr. Roosevelt Verde ALP [Catalytic activity/Vol] 73 U/L Normal 46-116 [facility] Comment on above: Performed By: #### C BC #### [facility] [address] [place] [address] Dr. Roosevelt Verde ALT [Catalytic activity/Vol] 35 U/L Normal 16-63 [facility] [place] Comment on above: Performed By: #### C BC #### [facility] [address] [place] [address] Dr. Roosevelt Verde Anion gap [Moles/Vol] 9.9 mmol/L Normal [facility] [place] Comment on above: Performed By: #### C BC #### [facility] [address] [address] [address] Roosevelt Verde AST [Catalytic activity/Vol] 16 U/L Normal 15-37 [facility] [place] Comment on above: Performed By: #### C BC #### [facility] [address] [address] [address] Roosevelt Verde Bilirubin [Mass/Vol] 0.7 mg/dL Normal 0.2-1.0 [facility] [place] Comment on above: Performed By: #### C BC #### [facility] [address] [place] [address] Dr. Roosevelt Verde Calcium [Mass/Vol] 8.8 mg/dL Normal 8.5-10.[address] [facility] Comment on above: Performed By: #### C BC #### [facility] [address] [place] [address] Dr. Roosevelt Verde Chloride [Moles/Vol] 107 mmol/L Normal 98-107 [facility] [place] Comment on above: Performed By: #### C BC #### [facility] [address] [address] [address] Roosevelt Verde CO2 [Moles/Vol] 27.6 mmol/L Normal 21.0-32.0 [facility] Comment on above: Performed By: #### C BC #### [facility] Laboratory [address] [address] [address] Roosevelt Verde Creatinine [Mass/Vol] 1.10 mg/dL Normal 0.70-1.30 [facility] Comment on above: Performed By: #### C BC #### [facility] [address] [address] [address] Roosevelt Verde EGFR-AF MALTESE >60 Normal >=60 [facility] Comment on above: Performed By: #### C BC #### [facility] [address] [address] [address] Roosevelt Verde EGFR-NON AF MALTESE >60 Normal >=60 [facility] Comment on above: Performed By: #### C BC #### [facility] [address] [address] [address] Roosevelt Verde Globulin (S) [Mass/Vol] 3.0 g/dL Normal [facility] Comment on above: Performed By: #### C BC #### [facility] [address] [address] [address] Roosevelt Verde Glucose [Mass/Vol] 83 mg/dL Normal 74-106 [facility] Comment on above: Performed By: #### C BC #### [facility] [address] [address] [address] Roosevelt Verde Potassium [Moles/Vol] 4.5 mmol/L Normal 3.5-5.1 [facility] Comment on above: Performed By: #### C BC #### [facility] [address] [address] [address] Roosevelt Verde Protein [Mass/Vol] 7.0 g/dL Normal 6.4-8.2 [facility] Comment on above: Performed By: #### C BC #### [facility] [address] [address] [address] Roosevelt Verde Sodium [Moles/Vol] 140 mmol/L Normal 136-145 [facility] Comment on above: Performed By: #### C BC #### [facility] [address] [address] [address] Roosevelt Verde Urea nitrogen [Mass/Vol] 23.0 mg/dL Critically high 7.0-18.0 [facility] Comment on above: Performed By: #### C BC #### [facility] [address] [address] [address] Roosevelt Verde Urea nitrogen/Creatinine [Mass ratio] 20.9 mg/mg Normal [facility] Comment on above: Performed By: #### C BC #### [facility] [address] [place] [address] Dr. Roosevelt Verde XR KUB 1 VIEWon [...] TRA ALDRIDGE Date: 2021-10-23 16:26 Normal [facility] CBC AUTO DIFFon 09-16-2021 BASO # 0.0 103/ul Normal 0.0-0.1 [facility] Comment on above: Performed By: #### C BC #### [facility] [address] [address] [address] Roosevelt Verde Basophils/100 WBC (Bld) 0.5 % Normal 0.2-2.0 [facility] Comment on above: Performed By: #### C BC #### [facility] [address] [address] [address] Roosevelt Verde EO # 0.1 103/ul Normal 0.0-0.7 [facility] Comment on above: Performed By: #### C BC #### [facility] [address] [address] [address] Roosevelt Verde Eosinophils/100 WBC (Bld) 0.6 % Critically low 0.9-7.0 [facility] Comment on above: Performed By: #### C BC #### [facility] [address] [address] [address] Roosevelt Verde Erythrocyte distribution width (RBC) [Ratio] 13.2 % Normal 11.0-15.0 [facility] Comment on above: Performed By: #### C BC #### [facility] [address] [place] [address] Dr. Roosevelt Verde Hematocrit (Bld) [Volume fraction] 42.9 % Normal 42.0-54.0 [facility] Comment on above: Performed By: #### C BC #### [facility] [address] [place] [address] Dr. Roosevelt Verde Hemoglobin (Bld) [Mass/Vol] 14.2 g/dL Normal 14.0-18.0 [facility] Comment on above: Performed By: #### C BC #### [facility] [address] [place] [address] Dr. Roosevelt Verde IG # 0.03 10e3/ul Normal 0.00-0.03 [facility] Comment on above: Performed By: #### C BC #### [facility] [address] [place] [address] Dr. Roosevelt Verde IG % 0.4 % Normal 0.0-0.5 [facility] Comment on above: Performed By: #### C BC #### [facility] [address] [place] [address] Dr. Roosevelt Verde LYMPH # 1.7 103/ul Normal 1.2-3.8 [facility] Comment on above: Performed By: #### C BC #### [facility] [address] [place] [address] Dr. Roosevelt Verde Lymphocytes/100 WBC (Bld) 21.0 % Normal 20.5-60.0 [facility] Comment on above: Performed By: #### C BC #### [facility] [address] [place] [address] Dr. Roosevelt Verde MANUAL DIFF REQ NO Normal [facility] Comment on above: Performed By: #### C BC #### [facility] [address] [place] [address] Dr. Roosevelt Verde MCH (RBC) [Entitic mass] 34.5 pg Critically high 25.9-34.0 [facility] Comment on above: Performed By: #### C BC #### [facility] [address] [place] [address] Dr. Roosevelt Verde MCHC (RBC) [Mass/Vol] 33.1 g/dL Normal 29.9-35.2 [facility] Comment on above: Performed By: #### C BC #### [facility] [address] [place] [address] Dr. Roosevelt Verde MCV (RBC) [Entitic vol] 104.4 fL Critically high 80.0-94.0 [facility] Comment on above: Performed By: #### C BC #### [facility] [address] [place] [address] Dr. Roosevelt Verde MONO # 0.8 103/ul Normal 0.3-0.8 [facility] Comment on above: Performed By: #### C BC #### [facility] [address] [place] [address] Dr. Roosevelt Verde Monocytes/100 WBC (Bld) 9.6 % Normal 1.7-12.0 [facility] Comment on above: Performed By: #### C BC #### [facility] [address] [place] [address] Dr. Roosevelt Verde NEUT # 5.5 103/ul Normal 1.4-6.5 [facility] Comment on above: Performed By: #### C BC #### [facility] [address] [place] [address] Dr. Roosevelt Verde Neutrophils/100 WBC (Bld) 67.9 % Normal 43.0-75.0 [facility] Comment on above: Performed By: #### C BC #### [facility] [address] [place] [address] Dr. Roosevelt Verde Platelet mean volume (Bld) [Entitic vol] 9.4 fL Critically low 9.5-13.5 [facility] Comment on above: Performed By: #### C BC #### [facility] [address] [place] [address] Dr. Roosevelt Verde PLT 290 103/ul Normal 150-450 [facility] Comment on above: Performed By: #### C BC #### [facility] [address] [place] [address] Dr. Roosevelt Verde RBC 4.11 106/ul Critically low 4.70-6.10 [facility] Comment on above: Performed By: #### C BC #### [facility] [address] [place] [address] Dr. Roosevelt Verde WBC 8.1 103/ul Normal 4.0-11.0 [facility] Comment on above: Performed By: #### C BC #### [facility] [address] [address] [address] Roosevelt Verde CREATININEon 09-16-2021 Creatinine [Mass/Vol] 1.20 mg/dL Normal 0.70-1.30 [facility] Comment on above: Performed By: #### C QUE, CRP, ALT, AST #### [facility] [address] [place] [address] Dr. Roosevelt Verde EGFR-AF MALTESE >=60 Normal >=60 [facility] Comment on above: Performed By: #### C QUE, CRP, ALT, AST #### [facility] [address] [place] [address] Dr. Roosevelt Verde EGFR-NON AF MALTESE >=60 Normal >=60 [facility] Comment on above: Performed By: #### C QUE, CRP, ALT, AST #### [facility] [address] [place] [address] Dr. Roosevelt Verde CRPon 09-16-2021 CRP [Mass/Vol] mg/L Normal <=1.0 [facility] Comment on above: Performed By: #### C QUE, CRP, ALT, AST #### [facility] [address] [place] [address] Dr. Roosevelt Verde SED RATE WESTERGRENon 2021 SED RATE 4 mm/hr Normal <=20 [facility] Comment on above: Performed By: #### S EDR ####[facility] [id number] [address]Dr[address] Roosevelt Verde SGOTon 09-16-2021 AST [Catalytic activity/Vol] 17 U/L Normal 15-37 [facility] Comment on above: Performed By: #### C QUE, CRP, ALT, AST #### [facility] [address] [place] [address] Dr. Roosevelt Verde SGPTon 09-16-2021 ALT [Catalytic activity/Vol] 36 U/L Normal 16-63 [facility] Comment on above: Performed By: #### C QUE, CRP, ALT, AST #### [facility] [address] [address] [address] Roosevelt Verde VIT D, 1,25 DIHYDROXon 07-13 VIT. D 1,25 41.4 Normal [facility] Comment on above: Result Comment: Refe rence range: 19.9 to 79.3 Unit: pg/mL PERFORMED AT [facility] Performed By: #### L [id number] #### Testing performed at [facility] 25 0H VITAMIN D LEVELon 07-01 25 0H VITAMIN D LEVEL 47.4 NG/ML Normal [facility] Comment on above: Result Comment: DEFICIENT <20 NG/ML INSUFFICIENT 20-<30 NG/ML SUFFICIENT 30-100 NG/ML POTENTIAL TOXICITY >100 NG/ML Demetrius 07-12-2021 ALT [Catalytic activity/Vol] 25 U/L Normal <50 [facility] Comment on above: Performed By: #### L [id number] #### Testing performed at [facility] ALT [Catalytic activity/Vol] 25 U/L <50 IU/L [facility] 07-12-2021 AST [Catalytic activity/Vol] 22 U/L Normal 17-59 [facility] Comment on above: Performed By: #### L [id number] #### Testing performed at [facility] AST [Catalytic activity/Vol] 22 U/L [facility] C REACTIVE PROTEINon 022 CRP [Mass/Vol] mg/L Normal 0-10 [facility] Comment on above: Performed By: #### L [id number] #### Testing performed at [facility] CRP [Mass/Vol] mg/L 0 - 10 MG/L [facility] CBCon 07-12-2021 ABSOLUTE BAS 0.0 10*3/uL Normal 0.0-0.2 [facility] Comment on above: Performed By: #### L [id number] #### Testing performed at [facility] ABSOLUTE EOS 0.10 10*3/uL Normal 0.0-0.7 [facility] Comment on above: Performed By: #### L [id number] #### Testing performed at [facility] ABSOLUTE NEUTROPHIL COUNT 4.2 10*3/uL Normal 1.4-6.5 [facility] Comment on above: Performed By: #### L [id number] #### Testing performed at [facility] Basophils/100 WBC (Bld) 0.5 % Normal 0.0-2.0 [facility] Comment on above: Performed By: #### L [id number] #### Testing performed at [facility] DTYPE AUTO DIFF Normal [facility] Comment on above: Performed By: #### L [id number] #### Testing performed at [facility] Eosinophils/100 WBC (Bld) 0.9 % Normal 0.0-11.0 [facility] Comment on above: Performed By: #### L [id number] #### Testing performed at [facility] Lymphocytes (Bld) [#/Vol] 1.20 10*3/uL Normal 1.2-3.4 [facility] Comment on above: Performed By: #### L [id number] #### Testing performed at [facility] Lymphocytes/100 WBC (Bld) 20.2 % Normal 20.0-55.0 [facility] Comment on above: Performed By: #### L [id number] #### Testing performed at [facility] Monocytes (Bld) [#/Vol] 0.6 10*3/uL Normal 0.0-0.7 [facility] Comment on above: Performed By: #### L [id number] #### Testing performed at [facility] Monocytes/100 WBC (Bld) 10.2 % High 0.0-10.0 [facility] Comment on above: Performed By: #### L [id number] #### Testing performed at [facility] Neutrophils/100 WBC (Bld) 68.2 % Normal 37.0-75.0 [facility] Comment on above: Performed By: #### L [id number] #### Testing performed at [facility] Erythrocyte distribution width (RBC) [Ratio] 14.5 % Normal 11.5-14.5 [facility] Comment on above: Performed By: #### L [id number] #### Testing performed at [facility] Hematocrit (Bld) [Volume fraction] 43.9 % Normal 42.0-52.0 [facility] Comment on above: Performed By: #### L [id number] #### Testing performed at [facility] Hemoglobin (Bld) [Mass/Vol] 14.6 g/dL Normal 14.0-18.0 [facility] Comment on above: Performed By: #### L [id number] #### Testing performed at [facility] MCH (RBC) [Entitic mass] 34.7 pg Normal 26.0-35.0 [facility] Comment on above: Performed By: #### L [id number] #### Testing performed at [facility] MCHC (RBC) [Mass/Vol] 33.2 g/dL Normal 27.0-37.0 [facility] Comment on above: Performed By: #### L [id number] #### Testing performed at [facility] MCV (RBC) [Entitic vol] 104.6 fL High 80.0-100.0 [facility] Comment on above: Performed By: #### L [id number] #### Testing performed at [facility] Platelet mean volume (Bld) [Entitic vol] 7.4 fL Normal 7.4-11.0 [facility] Comment on above: Performed By: #### L VD125 #### Testing performed at [facility] Platelets (Bld) [#/Vol] 304 10*3/uL Normal 130.0-400.0 [facility] Comment on above: Performed By: #### L [id number] #### Testing performed at [facility] RBC (Bld) [#/Vol] 4.20 10*6/uL Normal 4.0-6.1 [facility] Comment on above: Performed By: #### L [id number] #### Testing performed at [facility] WBC (Bld) [#/Vol] 6.2 10*3/uL Normal 3.6-11.0 [facility] Comment on above: Performed By: #### L [id number] #### Testing performed at [facility] CBC, EDIF, PLATELETon 2021 ABSOLUTE BASOPHIL COUNT 0.0 10*3/uL 0.0 - 0.2 10*3/uL [facility] Basophils/100 WBC (Bld) 0.5 % 0.0 - 2.0 % [facility] Differential cell count method Nom (Bld) AUTO DIFF % [facility] Eosinophils (Bld) [#/Vol] 0.10 10*3/uL 0.0 - 0.7 10*3/uL [facility] Eosinophils/100 WBC (Bld) 0.9 % 0.0 - 11.0 % [facility] Erythrocyte distribution width (RBC) [Ratio] 14.5 % 11.5 - 14.5 % [facility] Hematocrit (Bld) [Volume fraction] 43.9 % 42.0 - 52.0 % [facility] Hemoglobin (Bld) [Mass/Vol] 14.6 g/dL [facility] Interpretation and review of laboratory results Abnormal [facility] Lymphocytes (Bld) [#/Vol] 1.20 10*3/uL 1.2 - 3.4 10*3/uL [facility] Lymphocytes/100 WBC (Bld) 20.2 % 20.0 - 55.0 % [facility] MCH (RBC) [Entitic mass] 34.7 pg 26.0 - 35.0 PG [facility] MCHC (RBC) [Mass/Vol] 33.2 g/dL [facility] MCV (RBC) [Entitic vol] 104.6 fL High [facility] Monocytes (Bld) [#/Vol] 0.6 10*3/uL 0.0 - 0.7 10*3/uL [facility] Monocytes/100 WBC (Bld) 10.2 % High 0.0 - 10.0 % [facility] Neutrophils (Bld) [#/Vol] 4.2 10*3/uL 1.4 - 6.5 10*3/uL [facility] Neutrophils/100 WBC (Bld) 68.2 % 37.0 - 75.0 % [facility] Platelet mean volume (Bld) [Entitic vol] 7.4 fL [facility] Platelets (Bld) [#/Vol] 304 10*3/uL 130.0 - 400.0 10*3/uL [facility] RBC (Bld) [#/Vol] 4.20 10*6/uL 4.0 - 6.1 10*6/u L [facility] WBC (Bld) [#/Vol] 6.2 10*3/uL 3.6 - 11.0 10*3/uL [facility] CREATININE SERUMon 2 Creatinine [Mass/Vol] 0.92 mg/dL [facility] GFR COMMENT Average GFR for 50-59 years old = 93. [facility] Comment on above: Chronic Kidney disea se, GFR = <60. Kidney failure, GFR = <15. The GFR estimate is not adjusted for extreme body surface area or acute process, nor has it been validated for women or ethnic groups other than and . GFR/1.73 sq M.predicted among blacks MDRD (S/P/Bld) [Vol rate/Area] 110 mL/min/{1.73_m2} ml/min/1.73sq.m [facility] GFR/1.73 sq M.predicted among non-blacks MDRD (S/P/Bld) [Vol rate/Area] 91 mL/min/{1.73_m2} ml/min/1.73sq.m [facility] CREATININE,SERUMon 2 Creatinine [Mass/Vol] 0.92 mg/dL Normal 0.7-1.2 [facility] Comment on above: Performed By: #### L [id number] #### Testing performed at [facility]. GFR, 110 ml/min/1.73sq.m [facility] Comment on above: Performed By: #### L VD125 #### Testing performed at [facility]. GFR,Non 91 ml/min/1.73sq.m [facility] Comment on above: Performed By: #### L [id number] #### Testing performed at [facility] GFR Information Average GFR for 50-59 years old = 93. Normal [facility] Comment on above: Result Comment: [employer]asc [employer] alvin Kidney disease, GFR = <60. Kidney failure, GFR = <15. The GFR estimate is not adjusted for extreme body surface area or acute process, nor has it been validated for women or ethnic groups other than and . Performed By: #### L [id number] #### Testing performed at [facility] ESRon 07-12-2021 ESR (Bld) [Velocity] 2 mm/h Normal 0-20 [facility] Comment on above: Performed By: #### L [id number] #### Testing performed at [facility] No Panel Informationon 07-12 [facility] SEDIMENTATION RATE, AUTOMATE Don 07-12-2021 ESR (Bld) [Velocity] 2 mm/h [facility] VITAMIN D (25-HYDROXY,TOTAL) on 07-12-2021 25-hydroxyvitamin D [Mass/Vol] 47.4 NG/ML [facility] Comment on above: DEFICIENT <20 NG/ML INSUFFICIENT 20-<30 NG/ML SUFFICIENT 30-100 NG/ML POTENTIAL TOXICITY >100 NG/ML [facility] Q - QUANTIFERON TB GOLD PLUS on 03-18-2021 MITOGEN-NIL 9.02 IU/mL Normal [facility] [employer] Comment on above: Order Comment: [facility] Testing performed at: [facility], [address] [place] [address], [address] [place] [address], [phone], [employer]: Rick Connors MD [facility] Collection Date/Time: [id number] [facility] Results Received Date/Time: [facility] Reported Date/Time: FASTING: NO Performed By: #### [id number] #### [facility] Default [address] [place] [address] NIL 0.03 IU/mL Normal [facility] [employer] Comment on above: Order Comment: [facility] Testing performed at: [facility], [address] , [address] [place] [address], [phone], [employer]: Rick Connors MD [facility] Date/Time: [facility] Results Received Date/Time: [facility] Reported Date/Time: FASTING: NO Performed By: #### [id number] #### [facility] [address] [place] [address] QUANTIFERON(R)-TB GOLD PLUS, 1 TUBE Negative Normal NEGATIVE [facility] [employer] [facility] Comment on above: Order Comment: [facility] Testing performed at: [employer] [employer] [facility], [address] , [address] [place] [address], [address] [place] [address], [employer]: Rick Connors MD [facility] Date/Time: [facility] Results Received Date/Time: [facility] Reported Date/Time: FASTING: NO Result Comment: Nega tive test result. M. tuberculosis complex infection unlikely. Performed By: #### [id number] #### [facility] [address] [place] [address] TB1-NIL 0.00 IU/mL Normal [facility] [employer] [facility] Comment on above: Order Comment: [facility] performed at: [employer] [employer] [facility], [address] , [address] [place] [address], [phone], [employer]: Rick Connors MD [facility] Date/Time: [facility] Results Received Date/Time: [facility] Reported Date/Time: FASTING: NO Performed By: #### [id number] #### [facility] [address] [place] [address] TB2-NIL 0.00 IU/mL Normal [facility] [employer] Comment on above: Order Comment: [facility] performed at: [employer] [employer] [facility], [address] , [address] [place] [address], [phone], [employer]: Rick Connors MD [facility] Date/Time: [facility] Results Received Date/Time: [id number] [facility] Reported Date/Time: FASTING: NO Result Comment: [...] T-lymphocytes. For additional information, please refer to https://education.Fisoc/faq/VEZ903 (This link is being provided for informational/ educational purposes only.) Performed By: #### [id number] #### [facility] [address] [place] [address] Demetrius 07-13-2020 ALT [Catalytic activity/Vol] 18 U/L <50 IU/L [facility] 07-13-2020 AST [Catalytic activity/Vol] 19 U/L [facility] C REACTIVE PROTEINon 021 CRP [Mass/Vol] mg/L 0 - 10 MG/L [facility] CBC, EDIF, PLATELETon 2020 ABSOLUTE BASOPHIL COUNT 0.1 10*3/uL 0.0 - 0.2 10*3/uL [facility] Basophils/100 WBC (Bld) 0.8 % 0.0 - 2.0 % [facility] Differential cell count method Nom (Bld) AUTO DIFF % [facility] Eosinophils (Bld) [#/Vol] 0.10 10*3/uL 0.0 - 0.7 10*3/uL [facility] Eosinophils/100 WBC (Bld) 1.7 % 0.0 - 11.0 % [facility] Erythrocyte distribution width (RBC) [Ratio] 15.4 % High 11.5 - 14.5 % [facility] Hematocrit (Bld) [Volume fraction] 44.9 % 42.0 - 52.0 % [facility] Hemoglobin (Bld) [Mass/Vol] 15.4 g/dL [facility] Interpretation and review of laboratory results Abnormal [facility] Lymphocytes (Bld) [#/Vol] 2.00 10*3/uL 1.2 - 3.4 10*3/uL [facility] Lymphocytes/100 WBC (Bld) 22.9 % 20.0 - 55.0 % [facility] MCH (RBC) [Entitic mass] 36.0 pg High 26.0 - 35.0 PG [facility] MCHC (RBC) [Mass/Vol] 34.3 g/dL [facility] MCV (RBC) [Entitic vol] 104.8 fL High [facility] Monocytes (Bld) [#/Vol] 1.0 10*3/uL High 0.0 - 0.7 10*3/uL [facility] Monocytes/100 WBC (Bld) 11.1 % High 0.0 - 10.0 % [facility] Neutrophils (Bld) [#/Vol] 5.4 10*3/uL 1.4 - 6.5 10*3/uL [facility] Neutrophils/100 WBC (Bld) 63.5 % 37.0 - 75.0 % [facility] Platelet mean volume (Bld) [Entitic vol] 7.6 fL [facility] Platelets (Bld) [#/Vol] 276 10*3/uL 130.0 - 400.0 10*3/uL [facility] RBC (Bld) [#/Vol] 4.29 10*6/uL 4.0 - 6.1 10*6/u L [facility] WBC (Bld) [#/Vol] 8.6 10*3/uL 3.6 - 11.0 10*3/uL [facility] CREATININE SERUMon Creatinine [Mass/Vol] 1.01 mg/dL [facility] GFR/1.73 sq M predicted among blacks MDRD (S/P/Bld) [Vol rate/Area] mL/min/{1.73_m2} ml/min/1.73sq.m [facility] GFR/1.73 sq M predicted among non-blacks MDRD (S/P/Bld) [Vol rate/Area] Average GFR for 50-59 years old = 93. [facility] Comment on above: Chronic Kidney disea se, GFR = <60. Kidney failure, GFR = <15. The GFR estimate is not adjusted for extreme body surface area or acute process, nor has it been validated for women or ethnic groups other than and . GFR/1.73 sq M predicted among non-blacks MDRD (S/P/Bld) [Vol rate/Area] mL/min/{1.73_m2} ml/min/1.73sq.m [facility] Otheron 07-13-2020 [facility] SEDIMENTATION RATE, AUTOMATE Don 07-13-2020 ESR (Bld) [Velocity] 9 mm/h [facility] VITAMIN D (25-HYDROXY,TOTAL) on 07-13-2020 25-Hydroxyvitamin D2+25-Hydroxyvitamin D3 [Mass/Vol] 54.1 NG/ML [facility] above: DEFICIENT <20 NG/ML INSUFFICIENT 20-<30 NG/ML SUFFICIENT 30-100 NG/ML POTENTIAL TOXICITY >100 NG/ML [facility] Operative Reporton Operative Report MR#: [id number] S [facility] Pt. Name: Glenda Buckley Room [...] closed using Prolene sutures placed in a [id number] fashion. No mesh was placed. The subcutaneous [...] Stiles MD Date Trans: 07/06/2020 01:22 A/dio [id number] cc: Rodrigo Luz M.D. [address] [place] [id number] Normal [facility] POC GLUCOSE LABon 07-05-2020 Glucose [Mass/Vol] 90 mg/dL Normal 70-100 [facility] Comment on above: Performed By: #### [id number] #### [place] [address], [facility] Demetrius 01-13-2020 ALT [Catalytic activity/Vol] 21 U/L <50 IU/L [facility] Levar 01-13-2020 AST [Catalytic activity/Vol] 22 U/L [facility] C REACTIVE PROTEINon 020 CRP [Mass/Vol] mg/L 0 - 10 MG/L [facility] CBC, EDIF, PLATELETon 2019 ABSOLUTE BASOPHIL COUNT 0.0 10*3/uL 0 - 0.2 10*3/uL [facility] Basophils/100 WBC (Bld) 0.6 % 0 - 2 % [facility] Differential cell count method Nom (Bld) AUTO DIFF % [facility] Eosinophils (Bld) [#/Vol] 0.10 10*3/uL 0 - 0.7 10*3/uL [facility] Eosinophils/100 WBC (Bld) 1.1 % 0 - 11 % [facility] Erythrocyte distribution width (RBC) [Ratio] 14.1 % 11.5 - 14.5 % [facility] Hematocrit (Bld) [Volume fraction] 43.7 % 42 - 52 % [facility] Hemoglobin (Bld) [Mass/Vol] 15.0 g/dL [facility] Interpretation and review of laboratory results Abnormal [facility] Lymphocytes (Bld) [#/Vol] 1.50 10*3/uL 1.2 - 3.4 10*3/uL [facility] Lymphocytes/100 WBC (Bld) 21.7 % 20 - 55 % [facility] MCH (RBC) [Entitic mass] 35.2 pg High 26 - 35 PG [facility] MCHC (RBC) [Mass/Vol] 34.3 g/dL [facility] MCV (RBC) [Entitic vol] 102.7 fL High [facility] Monocytes (Bld) [#/Vol] 0.8 10*3/uL High 0 - 0.7 10*3/uL [facility] Monocytes/100 WBC (Bld) 11.4 % High 0 - 10 % [facility] Neutrophils (Bld) [#/Vol] 4.4 10*3/uL 1.4 - 6.5 10*3/uL [facility] Neutrophils/100 WBC (Bld) 65.2 % 37 - 75 % [facility] Platelet mean volume (Bld) [Entitic vol] 7.4 fL [facility] Platelets (Bld) [#/Vol] 265 10*3/uL 130 - 400 10*3/uL [facility] RBC (Bld) [#/Vol] 4.25 10*6/uL 4 - 6.1 10*6/uL [facility] WBC (Bld) [#/Vol] 6.8 10*3/uL 3.6 - 11 10*3/uL [facility] CREATININE SERUMon 0 Creatinine [Mass/Vol] 0.95 mg/dL [facility] GFR/1.73 sq M predicted among blacks MDRD (S/P/Bld) [Vol rate/Area] mL/min/{1.73_m2} ml/min/1.73sq.m [facility] GFR/1.73 sq M predicted among non-blacks MDRD (S/P/Bld) [Vol rate/Area] Average GFR for 50-59 years old = 93. [facility] Comment on above: Chronic Kidney disea se, GFR = <60. Kidney failure, GFR = <15. The GFR estimate is not adjusted for extreme body surface area or acute process, nor has it been validated for women or ethnic groups other than and . GFR/1.73 sq M predicted among non-blacks MDRD (S/P/Bld) [Vol rate/Area] mL/min/{1.73_m2} ml/min/1.73sq.m [facility] SEDIMENTATION RATE, AUTOMATE Don 01-13-2020 ESR (Bld) [Velocity] 5 mm/h [facility] [employer] Vital Signs Date Time Vital Sign Value Performing Clinician Facility 10-01-2023 13:02-0400 Blood Pressure Location Yusuf POLLARD [facility] 10-01-2023 13:02-0400 Diastolic blood pressure 79 mm[Hg] Yusuf POLLARD [facility] 10-01-2023 13:02-0400 Heart rate 67 /min Yusuf POLLARD [facility] 10-01-2023 13:02-0400 Respiratory rate 16 /min Yusuf POLLARD [facility] 10-01-2023 13:02-0400 Systolic blood pressure 118 mm[Hg] Yusuf POLLARD [facility] 07-31-2023 09:01-0400 Body height 182.9 cm Tra Vale Jr., DO Work Phone: [facility] 07-31-2023 09:01-0400 Body mass index (BMI) [Ratio] 33.5 kg/m2 Tra Vale Jr., DO Work Phone: [facility] 07-31-2023 09:01-0400 Body weight 112.04 kg Tra Vale Jr., DO Work Phone: [employer] [facility] 07-31-2023 09:01-0400 Diastolic blood pressure 82 mm[Hg] Tra Vale Jr., DO Work Phone: [facility] 07-31-2023 09:01-0400 Heart rate 72 /min Tra Vale Jr., DO Work Phone: [facility] 07-31-2023 09:01-0400 SaO2% (BldA) [Mass fraction] 98 % Tra Vale Jr., DO Work Phone: [employer] [facility] 07-31-2023 09:01-0400 Systolic blood pressure 116 mm[Hg] Tra Vale Jr., DO Work Phone: [facility] 01-23-2023 08:58-0400 Body height 182.9 cm Tra Vale Jr., DO Work Phone: [facility] 01-23-2023 08:58-0400 Body mass index (BMI) [Ratio] 33.52 kg/m2 Tra Vale Jr., DO [facility] 01-23-2023 08:58-0400 Body temperature 97.81 [degF] Tra Vale Jr., DO [facility] 01-23-2023 08:58-0400 Body weight 112.1 kg Tra Vale Jr., DO Work Phone: [facility] 01-23-2023 08:58-0400 Diastolic blood pressure 80 mm[Hg] Tra Vale Jr., DO [facility] Phone: [facility] 01-23-2023 08:58-0400 Heart rate 66 /min Tra Cartyneliaelissa Vidales, DO Work Phone: [facility] 01-23-2023 08:58-0400 SaO2% (BldA) [Mass fraction] 99 % Tra Cartyneliaelissa Vidales, DO Work Phone: [facility] 01-23-2023 08:58-0400 Systolic blood pressure 122 mm[Hg] Tra Vale Jr., DO Work Phone: [facility] 07-25-2022 08:41-0400 Body height 182.9 cm Tra Cartyneliaelissa Vidales, DO Work Phone: [facility] 07-25-2022 08:41-0400 Body mass index (BMI) [Ratio] 33.53 kg/m2 Tra Cartyneliaelissa Vidales, DO [facility] Phone[facility] 07-25-2022 08:41-0400 Body weight 112.13 kg Tra Carlozneliaelissa Vidales, DO Work Phone: [facility] 07-25-2022 08:41-0400 Diastolic blood pressure 76 mm[Hg] Tra Zamanelissa Vidales, DO Work Phone: [facility] 07-25-2022 08:41-0400 Heart rate 64 /min Tra Vale Jr., DO Work Phone: [employer] 07-25-2022 08:41-0400 Respiratory rate 18 /min Tra Vale Jr., DO Work Phone: [facility] 07-25-2022 08:41-0400 SaO2% (BldA) [Mass fraction] 99 % Tra Vale Jr., DO Work Phone: [facility] 07-25-2022 08:41-0400 Systolic blood pressure 108 mm[Hg] Tra Vale Jr., DO Work Phone: [employer] [facility] 06-17-2022 12:30-0400 Body height 180.34 cm Tania Val Other [facility] Other 06-17-2022 12:30-0400 Body mass index (BMI) [Ratio] 33.47 kg/m2 Tania Val Other [facility] Other 06-17-2022 12:30-0400 Body weight 108.86 kg Tania Val Other [facility] Other 06-17-2022 12:30-0400 Diastolic blood pressure 90 mm[Hg] Tania Val Other [facility] Other 06-17-2022 12:30-0400 Respiratory rate 18 /min Tania Val Other [facility] Other 06-17-2022 12:30-0400 SaO2% (BldA) [Mass fraction] 99 % Tania Val Other [facility] Other 06-17-2022 12:30-0400 Systolic blood pressure 150 mm[Hg] Tania Val Other [facility] Other 01-10-2022 08:38-0400 Body height 182.9 cm Tra Cartyneliaelissa Vidales, DO Work Phone: [facility] 01-10-2022 08:38-0400 Body mass index (BMI) [Ratio] 36.21 kg/m2 Tra Vale Jr., DO Work Phone: [facility] 01-10-2022 08:38-0400 Body temperature 98.01 [degF] Tra Cartyneliaelissa Vidales, DO Work Phone: [facility] 01-10-2022 08:38-0400 Body weight 121.11 kg Tra Vale Jr., DO Work Phone: [facility] 01-10-2022 08:38-0400 Diastolic blood pressure 78 mm[Hg] Tra Cartyneliaelissa Vidales, DO Work Phone: [facility] 01-10-2022 08:38-0400 Heart rate 71 /min Tra Vale Jr., DO Work Phone: [facility] 01-10-2022 08:38-0400 SaO2% (BldA) [Mass fraction] 98 % Tra Vale Jr., DO Work Phone: [facility] 01-10-2022 08:38-0400 Systolic blood pressure 116 mm[Hg] Tra Cartyneliaelissa Vidales, DO Work Phone: [facility] 07-12-2021 08:11-0400 Body height 182.9 cm Tra Cartyneliaelissa Vidales, DO Work Phone: [facility] 07-12-2021 08:11-0400 Body mass index (BMI) [Ratio] 38.52 kg/m2 Tra Cartyneliaelissa Vidales, DO Work Phone: [facility] 07-12-2021 08:11-0400 Body temperature 98.01 [degF] Tra Vale , DO Work Phone: [facility] 07-12-2021 08:11-0400 Body weight 128.82 kg Tra Vale Jr., DO Work Phone: [facility] 07-12-2021 08:11-0400 Diastolic blood pressure 76 mm[Hg] Tra Vale Jr., DO Work Phone: [facility] 07-12-2021 08:11-0400 Heart rate 70 /min Tra Vale Jr., DO Work Phone: [facility] 07-12-2021 08:11-0400 SaO2% (BldA) [Mass fraction] 97 % Tra Vale Jr., DO Work Phone: [facility] 07-12-2021 08:11-0400 Systolic blood pressure 126 mm[Hg] Tra Vale Jr., DO Work Phone: [facility] 07-13-2020 08:01-0400 BMI (Body Mass Index) 38.52 kg/m2 [facility] 07-13-2020 08:01-0400 Body Temperature 97.9 [degF] [facility] 07[facility]13[facility] 08:01-0400 Body weight 128.82 kg [facility] 07-13-2020 08:01-0400 BP Diastolic 84 mm[Hg] [facility] 07-13-2020 08:01-0400 BP Systolic 126 mm[Hg] [facility] 07-13-2020 08:01-0400 Height 182.9 cm [facility] 07-13-2020 08:01-0400 Pulse (Heart Rate) 71 /min [facility] 07-13-2020 08:01-0400 Pulse Oximetry 97 % [facility] 01-13-2020 08:05-0400 BMI (Body Mass Index) 43.81 kg/m2 [facility] 01-13-2020 08:05-0400 Body Temperature 97 [degF] [facility] 01-13-2020 08:05-0400 Body weight 146.51 kg [facility] 01-13-2020 08:05-0400 BP Diastolic 80 mm[Hg] [facility] 01-13-2020 08:05-0400 BP Systolic 130 mm[Hg] [facility] 01-13-2020 08:05-0400 Height 182.9 cm [facility] 09-09-2019 08:21-0400 BMI (Body Mass Index) 43.81 kg/m2 [facility] 09-09-2019 08:21-0400 Body Temperature 97.81 [degF] [facility] 09-09-2019 08:21-0400 Body weight 146.[address] [facility] 09-09-2019 08:21-0400 BP Diastolic 80 mm[Hg] [facility] 09-09-2019 08:21-0400 BP Systolic 138 mm[Hg] [facility] 09-09-2019 08:21-[address] [facility] 09-09-2019 08:21-0400 Pulse (Heart Rate) 83 /min [facility] 09-09-2019 08:21-0400 Pulse Oximetry 98 % [facility] 05-06-2019 09:12-0500 BMI (Body Mass Index) 42.72 kg/m2 [facility] 05-06-2019 09:12-0500 Body Temperature 98.01 [degF] [facility] 05-06-2019 09:12-0500 Body weight 142.[address] [facility] 05-06-2019 09:12-0500 BP Diastolic 86 mm[Hg] [facility] 05-06-2019 09:12-0500 BP Systolic 154 mm[Hg] [facility] 05-06-2019 09:12-[address] [facility] 05-06-2019 09:12-0500 Pulse (Heart Rate) 85 /min [facility] 05-06-2019 09:12-0500 Pulse Oximetry 97 % [facility] 01-07-2019 09:14-0400 BMI (Body Mass Index) 42.72 kg/m2 [facility] 01-07-2019 09:14-0400 Body Temperature 98.01 [degF] [facility] 01-07-2019 09:14-0400 Body weight 142.[address] [facility] 01-07-2019 09:14-0400 BP Diastolic 88 mm[Hg] [facility] 01-07-2019 09:14-0400 BP Systolic 132 mm[Hg] [facility] 01-07-2019 09:14-[address] [facility] 01-07-2019 09:14-0400 Pulse (Heart Rate) 76 /min [facility] 01-07-2019 09:14-0400 Pulse Oximetry 97 % [facility] 09-03-2018 11:29-0400 BMI (Body Mass Index) 42.83 kg/m2 [facility] 09-03-2018 11:29-0400 Body Temperature 98.01 [degF] [facility] 09-03-2018 11:29-0400 BP Diastolic 88 mm[Hg] [facility] 09-03-2018 11:29-0400 BP Systolic 132 mm[Hg] [facility] 09-03-2018 11:29-[address] [facility] 09-03-2018 11:29-0400 Pulse (Heart Rate) 72 /min [facility] 09-03-2018 11:29-0400 Pulse Oximetry 97 % [facility] 09-03-2018 11:29-[address] [facility] 05-03-2018 11:51-0500 BMI (Body Mass Index) 40.01 kg/m2 [facility] Work Phone: 05-03-2018 11:51-0500 Body Temperature 98.01 [degF] [facility] Work Phone: 05-03-2018 11:51-0500 BP Diastolic 80 mm[Hg] [facility] Work Phone: 05-03-2018 11:51-0500 BP Systolic 132 mm[Hg] [facility] Work Phone: 05-03-2018 11:51-0500 Height 182.9 cm [facility] Work Phone: 05-03-2018 11:51-0500 Pulse (Heart Rate) 89 /min [facility] Work Phone: 05-03-2018 11:51-0500 Pulse Oximetry 97 % [facility] Work Phone: 05-03-2018 11:51-0500 Weight 133.81 kg [facility] Work Phone: 03-29-2018 07:14-0500 Body Temperature 98.01 [degF] [facility] Work Phone: 03-29-2018 07:14-0500 BP Diastolic 84 mm[Hg] [facility] Work Phone: 03-29-2018 07:14-0500 BP Systolic 136 mm[Hg] [facility] Work Phone: 03-29-2018 07:14-0500 Height 182.9 cm [facility] Work Phone: 03-29-2018 07:14-0500 Pulse (Heart Rate) 80 /min [facility] Work Phone: 03-29-2018 07:14-0500 Pulse Oximetry 96 % Tra Vale [facility] Work Phone: Encounters Encounter Date Encounter Type Care Provider Facility Start: 01-07-2024 End: 01-07-2024 ambulatory Rodrigo Brink Facility:[facility] Start: 12-25-2023 End: 12-25-2023 ambulatory Rodrigo Brink Facility:[facility] [place] Start: 10-01-2023 End: 10-01-2023 ambulatory [facility] Start: 10-01-2023 End: 10-01-2023 Patient encounter procedure Yusuf POLLARD [facility] Start: 09-20-2023 End: 09-20-2023 ambulatory Rodrigo Brink Facility:[facility] [place] Start: 08-16-2023 End: 08-16-2023 ambulatory Rodrigo Brink Facility:[facility] [place] Start: 07-31-2023 ambulatory SELF SELF [facility] Start: 07-31-2023 End: 07-31-2023 Office outpatient visit 25 minutes Tra Vale DO Work Phone: [facility] Comment on above: Psoriatic arthritis (Primary Dx); Primary osteoarthritis of both knees; Osteoarthritis of both wrists, unspecified osteoarthritis type; Osteoarthritis of both hips, unspecified osteoarthritis type; Osteoarthritis of both hands, unspecified osteoarthritis type; Osteoarthritis of both glenohumeral joints; Osteoarthritis of both acromioclavicular joints; Osteoarthritis of cervical spine, unspecified spinal osteoarthritis complication status; Lumbosacral spondylosis without myelopathy; Impingement syndrome of both shoulders; DDD (degenerative disc disease), cervical; SAPHO syndrome; Macrocytic anemia; Psoriasis; Plaque psoriasis; Hyperchromic anemia; Methotrexate, 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, current use; Long-term current use of high risk medication other than anticoagulant; History of psoriatic arthritis; History of kidney stones; Abnormal renal function test; Vitamin D deficiency; Psoriatic spondylitis; 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 Start: 07-03-2023 End: 07-03-2023 ambulatory Rodrigo Brink Facility:[facility] Start: 07-03-2023 End: 07-03-2023 Patient encounter procedure Rodrigo Brink [facility] Start: 05-17-2023 End: 05-17-2023 [facility] Start: 04-06-2023 End: 04-06-2023 ambulatory Yusuf R BABATUNDE Facility: [place] Start: 03-12-2023 End: 03-12-2023 ambulatory Rodrigo SharmaMichael Murali Facility:[facility] Start: 03-05-2023 End: 03-05-2023 ambulatory [facility] Brink [facility] Start: 02-15-2023 End: 02-15-2023 ambulatory Rodrigo SharmaMichael Murali Facility:[facility] Start: 01-23-2023 ambulatory [facility] Start: 01-23-2023 End: 01-23-2023 Office outpatient visit 15 minutes Tra Vale DO Work Phone: [employer] [facility] Comment on above: Psoriatic arthritis (Primary Dx); 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; Psoriatic spondylitis; Plaque psoriasis; Psoriasis; SAPHO syndrome; History of kidney stones; History of psoriatic arthritis; Long-term current use of high risk medication other than anticoagulant; Methotrexate, senior care, current use; Vitamin D deficiency; DDD (degenerative disc disease), cervical; Impingement syndrome of both shoulders; Osteoarthritis of cervical spine, unspecified spinal osteoarthritis complication status; Osteoarthritis of both acromioclavicular joints; Osteoarthritis of both glenohumeral joints; Osteoarthritis of both hands, unspecified osteoarthritis type; Osteoarthritis of both hips, unspecified osteoarthritis type; Osteoarthritis of both wrists, unspecified osteoarthritis type; Primary osteoarthritis of both knees Start: 11-15-2022 End: 11-15-2022 Lab Drop off Rodrigo Brink [facility] Start: 11-15-2022 ambulatory [facility] Start: 10-31-2022 End: 10-31-2022 Lab Drop off Yakelin Santiago [facility] Start: 09-08-2022 ambulatory KEESHA Rodriguez Facili ty:[facility] Start: 08-22-2022 ambulatory NARENDRANATH LAKSHMIPATHY . Facility:[facility] Start: 07-29-2022 End: 07-30-[address] RODRIGO LUZ . Facility:[facility] Start: 07-25-2022 End: 07-26-2022 ambulatory NARENDRANATH LAKSHMIPATHY . 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 Facility:[facility] Start: 05-23-2022 End: 05-24-2022 ambulatory TRA VALE Facility:[facility] Start: 04-10-2022 End: 05-30-2022 ambulatory FRACISCO ARCHULETA . Facility:[facility] Start: 03-22-2022 ambulatory RODRIGO [facility] Start: 03-21-2022 End: 03-22-2022 ambulatory ELEN GUSTAVO Facility:[facility] Start: 03-08-2022 End: 03-08-[address] RODRIGO LUZ . Facility:[facility] Start: 02-27-2022 End: 03-08-[address] RODRIGO LUZ . Facility:[facility] Start: 02-16-2022 End: 02-17-[address] PAXTON SOLANO . Facility:[facility] Start: 01-27-2022 End: 01-28-2022 ambulatory TRA VALE Facility:[facility] Start: 01-12-2022 End: 01-13-2022 ambulatory TRA VALE Facility:[facility] Start: 01-11-2022 ambulatory [facility] Start: 01-10-[address] 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); History [...] visit 25 minutes Tra Vale Work Phone: [facility] Comment on above: Psoriatic arthritis (Primary Dx); 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; Psoriatic spondylitis; Psoriasis; SAPHO syndrome; History of psoriatic arthritis; skilled nursing current use of non-steroidal anti-inflammatories (NSAID); Methotrexate, senior care, current use; Long-term current use of high [...] Plaque psoriasis Start: 07-05-2020 End: 07-06-2020 ambulatory PILI ALLAN Facility:[facility] Start: 01-13-2020 End: 01-13-2020 Office outpatient visit 25 minutes Tra Vale Work Phone: [employer] Comment on above: Psoriatic arthritis (Primary Dx); Psoriasis; Plaque psoriasis; Methotrexate, 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, current use; Long-term current use of high risk medication other than anticoagulant; 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); History [...] visit 25 minutes Tra Vale Work Phone: [facility] [place] Comment on above: Psoriatic arthritis (Primary Dx); 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; Psoriatic spondylitis; Psoriasis; SAPHO syndrome; History of psoriatic arthritis; skilled nursing current use of non-steroidal anti-inflammatories (NSAID); Methotrexate, 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, current use; Long-term current use of high [...] 25 minutes Tra Vale Work Phone: [facility] [place] [facility] Comment on above: Psoriatic arthritis (Primary Dx); 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 Comment on above: Psoriatic arthritis (Primary Dx); Psoriatic spondylitis; Psoriasis; Plaque psoriasis; Anemia, unspecified type; Methotrexate, 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, current use; Long-term current use of high risk medication other than anticoagulant; skilled nursing current use of systemic steroids; skilled nursing current use of non-steroidal anti-inflammatories (NSAID); History [...] Start: 11-08-2018 End: 11-08-2018 Outside Orders Tra ZamanArdian Work Phone: [facility] Start: 11-06-2018 End: 11-06-2018 Outside Orders Tra ZamanArdian Work Phone: [facility] Start: 11-05-2018 End: 11-05-2018 Outside Orders Tra Pedro JunieArdian Work Phone: [facility] Start: 09-04-2018 End: 09-04-2018 Telephone encounter Juju Green [facility] Comment on above: Results Start: 09-03-2018 End: 09-03-2018 [facility] Comment on above: Vitamin D deficiency (Primary Dx) Start: 09-03-2018 End: 09-03-2018 [facility] on above: Psoriatic arthritis (Primary Dx); 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; Psoriatic spondylitis; History of psoriatic arthritis; 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); 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; Long-term current use of high risk medication other than anticoagulant; Methotrexate, 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, current use; Noncompliance; Patient non adherence; Vitamin [...] End: 07-01-2018 Patient encounter procedure Other Other [facility] Start: 05-29-2018 End: 05-29-2018 Patient encounter procedure Juju Green [facility] Comment on above: Psoriatic arthritis; 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; Psoriatic spondylitis; SAPHO syndrome; Psoriasis; Anemia, unspecified type; 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 Comment on above: Insurance ([employer] ) Start: 04-17-2018 End: 04-17-2018 Telephone encounter Tra Vale Work Phone: [facility] Comment on above: Medication Managemen t Start: 04-16-2018 End: 04-16-2018 Telephone encounter [facility] Comment on above: Insurance ([employer] ) Start: 04-05-2018 End: 04-05-2018 Patient encounter procedure Tra Vale Work Phone: [facility] Start: 04-04-2018 End: 04-04-2018 Patient encounter procedure Tra Vale Work Phone: [facility] Start: 04-03-2018 End: 04-03-2018 Patient encounter procedure Juju Green [facility] Comment on above: Results Start: 04-01-2018 End: 04-01-2018 Patient encounter procedure Tra Vale Work Phone: [facility] Comment on above: Vitamin D deficiency (Primary Dx) Start: 03-29-2018 Patient encounter status Tra Vale Jr., DO Work Phone: [facility] Start: 03-29-2018 End: 03-29-2018 Office outpatient new 60 minutes Tra Vale Work Phone: [facility] Comment on above: Psoriatic arthritis (Primary Dx); 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; Psoriatic spondylitis; SAPHO syndrome; Psoriasis; Fatigue, unspecified type; History of psoriatic arthritis; skilled nursing current use of non-steroidal anti-inflammatories (NSAID); skilled nursing current use of systemic steroids; Methotrexate, 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, current use; Long-term current use of high [...] (OUTSIDE) Tra Vale Work Phone: [facility] [employer] Comment on above: 1999 Coronary artery bypa ss graft operation planned [email or web address] Comment on above: 2003 Inguinal hernia (disorder) J catie Jack Comment on above: repair 2004 Plan of Treatment Date Care Activity Detail Author Start: 11-14-2029 Tetanus vaccination TETANUS [facility] Start: 03-20-2024 ambulatory Ambulatory Facility:[facility] Start: 01-29-2024 End: 01-29-2024 Patient encounter procedure 01/29/2024 11:00 AM EDT Office Visit [facility] [address] [place] [address] Tra Vale Jr., DO [address] [place] [address] [facility] Start: 01-15-2024 End: 07-30-2024 VITAMIN D (25-HYDROXY,TOTAL) VITAMIN D (25-HYDROXY,TOTAL) Lab Routine Psoriatic arthritis Primary osteoarthritis of both knees Osteoarthritis of both wrists, unspecified osteoarthritis type Osteoarthritis of both hips, unspecified osteoarthritis type Osteoarthritis of both hands, unspecified osteoarthritis type Osteoarthritis of both glenohumeral joints Osteoarthritis of both acromioclavicular joints Osteoarthritis of cervical spine, unspecified spinal osteoarthritis complication status Lumbosacral spondylosis without myelopathy Impingement syndrome of both shoulders DDD (degenerative disc disease), cervical SAPHO syndrome Macrocytic anemia Psoriasis Plaque psoriasis Hyperchromic anemia Methotrexate, senior care, current use Long-term current use of high risk medication other than anticoagulant History of psoriatic arthritis History of kidney stones Abnormal renal function test Vitamin D deficiency 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 on above: Expected: 01/15/2024 (Approximate), Expi res: 07/30/2024 Start: 01-15-2024 End: 07-30-2024 VITAMIN D, (1,25 DIHYDROXY) VITAMIN D, (1,25 DIHYDROXY) Lab Routine Psoriatic arthritis Primary osteoarthritis of both knees Osteoarthritis of both wrists, unspecified osteoarthritis type Osteoarthritis of both hips, unspecified osteoarthritis type Osteoarthritis of both hands, unspecified osteoarthritis type Osteoarthritis of both glenohumeral joints Osteoarthritis of both acromioclavicular joints Osteoarthritis of cervical spine, unspecified spinal osteoarthritis complication status Lumbosacral spondylosis without myelopathy Impingement syndrome of both shoulders DDD (degenerative disc disease), cervical SAPHO syndrome Macrocytic anemia Psoriasis Plaque psoriasis Hyperchromic anemia Methotrexate, 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, current use Long-term current use of high risk medication other than anticoagulant History of psoriatic arthritis History of kidney stones Abnormal renal function test Vitamin D deficiency 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 Start: 07-31-2023 End: 07-30-2024 VITAMIN D (25-HYDROXY,TOTAL) VITAMIN D (25-HYDROXY,TOTAL) Lab Routine Psoriatic arthritis Primary osteoarthritis of both knees Osteoarthritis of both wrists, unspecified osteoarthritis type Osteoarthritis of both hips, unspecified osteoarthritis type Osteoarthritis of both hands, unspecified osteoarthritis type Osteoarthritis of both glenohumeral joints Osteoarthritis of both acromioclavicular joints Osteoarthritis of cervical spine, unspecified spinal osteoarthritis complication status Lumbosacral spondylosis without myelopathy Impingement syndrome of both shoulders DDD (degenerative disc disease), cervical SAPHO syndrome Macrocytic anemia Psoriasis Plaque psoriasis Hyperchromic anemia Methotrexate, senior care, current use Long-term current use of high risk medication other than anticoagulant History of psoriatic arthritis History of kidney stones Abnormal renal function test Vitamin D deficiency 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 Expected: 07/31/2023, Expires: 07/30/2024 [employer] [facility] Comment on above: Expected: 07/31/2023, Expires: Start: 07-31-2023 End: 07-30-2024 VITAMIN D, (1,25 DIHYDROXY) VITAMIN D, (1,25 DIHYDROXY) Lab Routine Psoriatic arthritis Primary osteoarthritis of both knees Osteoarthritis of both wrists, unspecified osteoarthritis type Osteoarthritis of both hips, unspecified osteoarthritis type Osteoarthritis of both hands, unspecified osteoarthritis type Osteoarthritis of both glenohumeral joints Osteoarthritis of both acromioclavicular joints Osteoarthritis of cervical spine, unspecified spinal osteoarthritis complication status Lumbosacral spondylosis without myelopathy Impingement syndrome of both shoulders DDD (degenerative disc disease), cervical SAPHO syndrome Macrocytic anemia Psoriasis Plaque psoriasis Hyperchromic anemia Methotrexate, 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, current use Long-term current use of high risk medication other than anticoagulant History of psoriatic arthritis History of kidney stones Abnormal renal function test Vitamin D deficiency 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 Expected: 07/31/2023, Expires: 07/30/2024 [employer] Comment on above: Expected: 07/31/2023, Expires: Start: 07-31-2023 End: 07-31-2023 Patient encounter procedure 07/31/2023 9:00 AM EDT Office Visit [facility] [address] [place] [id number] Ela Vidales, Tra Vasquez, DO [address] [place] [phone] [facility] Start: 07-11-2023 End: 01-24-2024 VITAMIN D (25-HYDROXY,TOTAL) VITAMIN D (25-HYDROXY,TOTAL) Lab Routine Psoriatic arthritis 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 Plaque psoriasis Psoriasis SAPHO syndrome History of kidney stones History of psoriatic arthritis Long-term current use of high risk medication other than anticoagulant Methotrexate, 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, current use Vitamin D deficiency DDD (degenerative [...] both knees Expected: 07/11/2023 (Approximate), Expires: 01/24/2024 [employer] Comment on above: Expected: 07/11/2023 (Approximate), Expi res: 01/24/2024 Start: 07-11-2023 End: 01-24-2024 VITAMIN D, (1,25 DIHYDROXY) VITAMIN D, (1,25 DIHYDROXY) Lab Routine Psoriatic arthritis 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 Plaque psoriasis Psoriasis SAPHO syndrome History of kidney stones History of psoriatic arthritis Long-term current use of high risk medication other than anticoagulant Methotrexate, 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, current use Vitamin D deficiency DDD (degenerative [...] both knees Expected: 07/11/2023 (Approximate), Expires: 01/24/2024 [facility] Comment on above: Expected: 07/11/2023 (Approximate), Expi res: 01/24/2024 Start: 01-23-2023 End: 01-23-2023 Patient encounter procedure 01/23/2023 Office Visit Rheumatology Ela Vidales, Tra Vasquez, DO [address] [place] [address] [facility] Start: 01-19-2023 End: 07-26-2023 VITAMIN D (25-HYDROXY,TOTAL) VITAMIN D (25-HYDROXY,TOTAL) Lab Routine Psoriatic arthritis 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 Macrocytic anemia Plaque psoriasis Psoriasis SAPHO syndrome History of kidney stones 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) Long-term current use of high risk medication other than anticoagulant Methotrexate, senior care, current use Abnormal renal function test Vitamin [...] both knees Expected: 01/19/2023 (Approximate), Expires: 07/26/2023 [employer] Comment on above: Expected: 01/19/2023 (Approximate), Expi res: 07/26/2023 Start: 01-19-2023 End: 07-26-2023 VITAMIN D, (1,25 DIHYDROXY) VITAMIN D, (1,25 DIHYDROXY) Lab Routine Psoriatic arthritis 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 Macrocytic anemia Plaque psoriasis Psoriasis SAPHO syndrome History of kidney stones History of psoriatic arthritis skilled nursing current use of non-steroidal anti-inflammatories (NSAID) Long-term current use of high risk medication other than anticoagulant 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, 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, 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 Abnormal renal function test Vitamin [...] both knees Expected: 01/19/2023 (Approximate), Expires: 07/26/2023 [employer] Comment on above: Expected: 01/19/2023 (Approximate), Expi res: 07/26/2023 Start: 12-01-2022 COVID-19 VACCINE ( season) COVID-19 VACCINE () [facility] Start: 12-01-2022 Influenza vaccination [facility] Start: 08-10-2022 End: 07-26-2023 Urea nitrogen [Mass/volume] in Serum or Plasma BUN Lab Routine Psoriatic arthritis 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 Macrocytic anemia Plaque psoriasis Psoriasis SAPHO syndrome History of kidney stones 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) Long-term current use of high risk medication other than anticoagulant 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, 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, 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 Abnormal renal function test Vitamin [...] both knees Expected: 08/10/2022 (Approximate), Expires: 07/26/2023 [facility] Comment on above: Expected: 08/10/2022 (Approximate), Expi res: 07/26/2023 Start: 08-10-2022 End: 07-26-2023 Urinalysis dipstick W Reflex Microscopic panel - Urine URINE MICROSCOPIC Fluids Routine Psoriatic arthritis 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 Macrocytic anemia Plaque psoriasis Psoriasis SAPHO syndrome History of kidney stones History of psoriatic arthritis skilled nursing current use of non-steroidal anti-inflammatories (NSAID) Long-term current use of high risk medication other than anticoagulant 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, 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, 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 Abnormal renal function test Vitamin [...] both knees Expected: 08/10/2022 (Approximate), Expires: 07/26/2023 [facility] Comment on above: Expected: 08/10/2022 (Approximate), Expi res: 07/26/2023 Start: 08-10-2022 End: 07-26-2023 Urinalysis, reagent strip without microscopy URINALYSIS, MACRO Fluids Routine Psoriatic arthritis 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 Macrocytic anemia Plaque psoriasis Psoriasis SAPHO syndrome History of kidney stones 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 DO [address] [place] [phone] [facility] Start: 01-10-2022 End: 01-10-2023 VITAMIN D, (1,25 DIHYDROXY) [facility] Comment on above: Expected: 01/10/2022 (Approximate), Expi res: 01/10/2023 Start: 01-10-2022 End: 01-10-2022 Patient encounter procedure 01/10/2022 Office Visit Rheumatology Tra Vale Jr., DO [address] [place] [phone] [facility] Start: 12-01-2021 Influenza vaccination [facility] Start: 07-12-2021 End: 07-12-2022 VITAMIN D, (1,25 DIHYDROXY) [facility] Comment on above: Expected: 07/12/2021 (Approximate), Expi res: 07/12/2022 Start: 01-11-2021 End: 01-11-2021 Office Visit 01/11/2021 Office Visit Rheumatology Tra Vale Jr., DO [address] [place] [phone] [facility] Start: 12-01-2020 Influenza vaccination INFLUENZA VACCINE (Season Ended) [facility] Start: 11-02-2020 COVID-19 VACCINE (3 - Booster for Pfizer series) COVID-19 VACCINE (3 - Booster for Pfizer series) [facility] Start: 07-13-2020 End: 07-13-2020 Office Visit 07/13/2020 Office Visit Rheumatology Tra Vale Jr., DO [address] [place] [phone] [facility] Start: 02-11-2020 End: 09-08-2020 VITAMIN D (25-HYDROXY,TOTAL) VITAMIN D (25-HYDROXY,TOTAL) Lab Routine Psoriatic arthritis 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 Psoriasis SAPHO syndrome History of psoriatic arthritis skilled nursing current use of non-steroidal anti-inflammatories (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, senior care, current use Long-term current use of high [...] Plaque psoriasis Expected: 02/11/2020 (Approximate), Expires: 09/08/2020 [facility] Comment on above: Expected: 02/11/2020 (Approximate), Expi res: 09/08/2020 Start: 02-11-2020 End: 09-08-2020 VITAMIN D, (1,25 DIHYDROXY) VITAMIN D, (1,25 DIHYDROXY) Lab Routine Psoriatic arthritis 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 Psoriasis SAPHO syndrome History of psoriatic arthritis skilled nursing current use of non-steroidal anti-inflammatories (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, 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, 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 Long-term current use of high [...] Plaque psoriasis Expected: 02/11/2020 (Approximate), Expires: 09/08/2020 [employer] Comment on above: Expected: 02/11/2020 (Approximate), Expi res: 09/08/2020 Start: 01-13-2020 End: 01-13-2020 Office Visit 01/13/2020 Office Visit Rheumatology Tra Vale Jr., DO [address] [place] [phone] [facility] Start: 12-02-2019 Influenza vaccination [employer] Start: 09-09-2019 End: 09-09-2019 Office Visit 09/09/2019 Office Visit Rheumatology Tra Vale Jr., DO [address] [place] [address] [phone] [facility] [place] [facility] Start: 09-04-2019 End: 05-06-2020 VITAMIN D (25-HYDROXY,TOTAL) VITAMIN D (25-HYDROXY,TOTAL) Lab Routine Psoriatic arthritis 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 Anemia, unspecified type 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 Long-term current use of high risk medication other than anticoagulant Methotrexate, senior care, current use Vitamin D deficiency DDD (degenerative [...] psoriasis Psoriasis Expected: 09/04/2019 (Approximate), Expires: 05/06/2020 [employer] Comment on above: Expected: 09/04/2019 (Approximate), Expi res: 05/06/2020 Start: 09-04-2019 End: 05-06-2020 VITAMIN D, (1,25 DIHYDROXY) VITAMIN D, (1,25 DIHYDROXY) Lab Routine Psoriatic arthritis 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 Anemia, unspecified type History of psoriatic arthritis skilled nursing current use of non-steroidal anti-inflammatories (NSAID) skilled nursing current use of systemic steroids Long-term current use of high risk medication other than anticoagulant Methotrexate, senior care, current use Vitamin D deficiency DDD (degenerative [...] psoriasis Psoriasis Expected: 09/04/2019 (Approximate), Expires: 05/06/2020 [employer] Comment on above: Expected: 09/04/2019 (Approximate), Expi res: 05/06/2020 Start: 05-06-2019 End: 05-06-2019 Office Visit 05/06/2019 Office Visit Rheumatology Ela Vidales, Tra Vasquez, DO [address] [place] [phone] [facility] Start: 03-29-2019 End: 03-29-2019 JOVAN MULTIPLEX SCRN WITH REFLEX JOVAN MULTIPLEX SCRN WITH REFLEX Routine Psoriatic arthritis 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 Psoriasis Fatigue, unspecified type 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) skilled nursing current use of 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, senior care, current use Long-term current use of high risk medication other than anticoagulant Lumbosacral spondylosis without myelopathy Disorder of bone and cartilage Plaque psoriasis Cervicalgia Dorsalgia Chronic pain of both shoulders Bilateral elbow joint pain Bilateral wrist pain Bilateral hand pain Chronic pain of both knees Expected: 03/29/2019 (Approximate), Expires: 03/29/2019 [facility] Work Phone: Comment on above: Expected: 03/29/2019 (Approximate), Expi res: 03/29/2019 Start: 03-29-2019 End: 03-29-2019 ANCA INIT SCRN (ANCA, PR3AB, MPO) ANCA INIT SCRN (ANCA, PR3AB, MPO) Routine Psoriatic arthritis 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 Psoriasis Fatigue, unspecified type 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, senior care, current use Long-term current use of high risk medication other than anticoagulant Lumbosacral spondylosis without myelopathy Disorder of bone and cartilage Plaque psoriasis Cervicalgia Dorsalgia Chronic pain of both shoulders Bilateral elbow joint pain Bilateral wrist pain Bilateral hand pain Chronic pain of both knees Expected: 03/29/2019 (Approximate), Expires: 03/29/2019 [facility] Work Phone: Comment on above: Expected: 03/29/2019 (Approximate), Expi res: 03/29/2019 Start: 03-29-2019 End: 03-29-2019 ANGIOTENSIN CONVERTING ENZYME ANGIOTENSIN CONVERTING ENZYME Routine Psoriatic arthritis 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 Psoriasis Fatigue, unspecified type History of psoriatic arthritis skilled nursing current use of non-steroidal anti-inflammatories (NSAID) skilled nursing current use of 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, 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, 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 Long-term current use of high risk medication other than anticoagulant Lumbosacral spondylosis without myelopathy Disorder of bone and cartilage Plaque psoriasis Cervicalgia Dorsalgia Chronic pain of both shoulders Bilateral elbow joint pain Bilateral wrist pain Bilateral hand pain Chronic pain of both knees Expected: 03/29/2019 (Approximate), Expires: 03/29/2019 [facility] Work Phone: Comment on above: Expected: 03/29/2019 (Approximate), Expi res: 03/29/2019 Start: 03-29-2019 End: 03-29-2019 CBC,PLATELETS CBC,PLATELETS Routine Psoria tic arthritis 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 Psoriasis Fatigue, unspecified type History of psoriatic arthritis skilled nursing current use of non-steroidal anti-inflammatories (NSAID) skilled nursing current use of 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, 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, current use Long-term current use of high risk medication other than anticoagulant Lumbosacral spondylosis without myelopathy Disorder of bone and cartilage Plaque psoriasis Cervicalgia Dorsalgia Chronic pain of both shoulders Bilateral elbow joint pain Bilateral wrist pain Bilateral hand pain Chronic pain of both knees Expected: 03/29/2019 (Approximate), Expires: 03/29/2019 [facility] Work Phone: Comment on above: Expected: 03/29/2019 (Approximate), Expi res: 03/29/2019 Start: 03-29-2019 End: 03-29-2019 CK CK Routine Psoriatic arthrit is 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 Psoriasis Fatigue, unspecified type 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, senior care, current use Long-term current use of high risk medication other than anticoagulant Lumbosacral spondylosis without myelopathy Disorder of bone and cartilage Plaque psoriasis Cervicalgia Dorsalgia Chronic pain of both shoulders Bilateral elbow joint pain Bilateral wrist pain Bilateral hand pain Chronic pain of both knees Expected: 03/29/2019 (Approximate), Expires: 03/29/2019 [facility] Work Phone: Comment on above: Expected: 03/29/2019 (Approximate), Expi res: 03/29/2019 Start: 03-29-2019 End: 03-29-2019 Comprehensive metabolic 2000 panel - Serum or Plasma COMPREHENSIVE METABOLIC PANEL Routine Psoriatic arthritis 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 Psoriasis Fatigue, unspecified type History of psoriatic arthritis skilled nursing current use of non-steroidal anti-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, senior care, current use Long-term current use of high risk medication other than anticoagulant Lumbosacral spondylosis without myelopathy Disorder of bone and cartilage Plaque psoriasis Cervicalgia Dorsalgia Chronic pain of both shoulders Bilateral elbow joint pain Bilateral wrist pain Bilateral hand pain Chronic pain of both knees Expected: 03/29/2019 (Approximate), Expires: 03/29/2019 [facility] Work Phone: Comment on above: Expected: 03/29/2019 (Approximate), Expi res: 03/29/2019 Start: 03-29-2019 End: 03-29-2019 CRP mass conc C REACTIVE PROTEIN Routine Psoriatic arthritis 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 Psoriasis Fatigue, unspecified type 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, senior care, current use Long-term current use of high risk medication other than anticoagulant Lumbosacral spondylosis without myelopathy Disorder of bone and cartilage Plaque psoriasis Cervicalgia Dorsalgia Chronic pain of both shoulders Bilateral elbow joint pain Bilateral wrist pain Bilateral hand pain Chronic pain of both knees Expected: 03/29/2019 (Approximate), Expires: 03/29/2019 [facility] Work Phone: Comment on above: Expected: 03/29/2019 (Approximate), Expi res: 03/29/2019 Start: 03-29-2019 End: 03-29-2019 CYCLIC CITRULLINATE PEPTIDE AB CYCLIC CITRULLINATE PEPTIDE AB Routine Psoriatic arthritis 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 Psoriasis Fatigue, unspecified type 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, senior care, current use Long-term current use of high risk medication other than anticoagulant Lumbosacral spondylosis without myelopathy Disorder of bone and cartilage Plaque psoriasis Cervicalgia Dorsalgia Chronic pain of both shoulders Bilateral elbow joint pain Bilateral wrist pain Bilateral hand pain Chronic pain of both knees Expected: 03/29/2019 (Approximate), Expires: 03/29/2019 [facility] Work Phone: Comment on above: Expected: 03/29/2019 (Approximate), Expi res: 03/29/2019 Start: 03-29-2019 End: 03-29-2019 HEPATITIS A, B, C HEPATITIS A, B, C Routine Psoriatic arthritis 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 Psoriasis Fatigue, unspecified type History of psoriatic arthritis skilled nursing current use of non-steroidal anti-inflammatories (NSAID) skilled nursing current use of 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, senior care, current use Long-term current use of high risk medication other than anticoagulant Lumbosacral spondylosis without myelopathy Disorder of bone and cartilage Plaque psoriasis Cervicalgia Dorsalgia Chronic pain of both shoulders Bilateral elbow joint pain Bilateral wrist pain Bilateral hand pain Chronic pain of both knees Expected: 03/29/2019 (Approximate), Expires: 03/29/2019 [facility] Work Phone: Comment on above: Expected: 03/29/2019 (Approximate), Expi res: 03/29/2019 Start: 03-29-2019 End: 03-29-2019 HLA-B27 HLA-B27 Routine Psoriatic arthritis 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 Psoriasis Fatigue, unspecified type 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) skilled nursing current use of 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, 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, current use Long-term current use of high risk medication other than anticoagulant Lumbosacral spondylosis without myelopathy Disorder of bone and cartilage Plaque psoriasis Cervicalgia Dorsalgia Chronic pain of both shoulders Bilateral elbow joint pain Bilateral wrist pain Bilateral hand pain Chronic pain of both knees Expected: 03/29/2019 (Approximate), Expires: 03/29/2019 [facility] Work Phone: Comment on above: Expected: 03/29/2019 (Approximate), Expi res: 03/29/2019 Start: 03-29-2019 End: 03-29-2019 PATRICK AND PE, SERUM PATRICK AND PE, SERUM Routine Psoriatic arthritis 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 Psoriasis Fatigue, unspecified type 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) skilled nursing current use of 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, senior care, current use Long-term current use of high risk medication other than anticoagulant Lumbosacral spondylosis without myelopathy Disorder of bone and cartilage Plaque psoriasis Cervicalgia Dorsalgia Chronic pain of both shoulders Bilateral elbow joint pain Bilateral wrist pain Bilateral hand pain Chronic pain of both knees Expected: 03/29/2019 (Approximate), Expires: 03/29/2019 [facility] Work Phone: Comment on above: Expected: 03/29/2019 (Approximate), Expi res: 03/29/2019 Start: 03-29-2019 End: 03-29-2019 MAGNESIUM MAGNESIUM Routine Psoriatic arthritis 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 Psoriasis Fatigue, unspecified type History of psoriatic arthritis skilled nursing current use of non-steroidal anti-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, 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, current use Long-term current use of high risk medication other than anticoagulant Lumbosacral spondylosis without myelopathy Disorder of bone and cartilage Plaque psoriasis Cervicalgia Dorsalgia Chronic pain of both shoulders Bilateral elbow joint pain Bilateral wrist pain Bilateral hand pain Chronic pain of both knees Expected: 03/29/2019 (Approximate), Expires: 03/29/2019 [facility] Work Phone: Comment on above: Expected: 03/29/2019 (Approximate), Expi res: 03/29/2019 Start: 03-29-2019 End: 03-29-2019 RHEUMATOID FACTOR RHEUMATOID FACTOR Routine Psoriatic arthritis 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 Psoriasis Fatigue, unspecified type History of psoriatic arthritis skilled nursing current use of non-steroidal anti-inflammatories (NSAID) skilled nursing current use of 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, 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, current use Long-term current use of high risk medication other than anticoagulant Lumbosacral spondylosis without myelopathy Disorder of bone and cartilage Plaque psoriasis Cervicalgia Dorsalgia Chronic pain of both shoulders Bilateral elbow joint pain Bilateral wrist pain Bilateral hand pain Chronic pain of both knees Expected: 03/29/2019 (Approximate), Expires: 03/29/2019 [facility] Work Phone: Comment on above: Expected: 03/29/2019 (Approximate), Expi res: 03/29/2019 Start: 03-29-2019 End: 03-29-2019 SEDIMENTATION RATE, AUTOMATED SEDIMENTATION RATE, AUTOMATED Routine Psoriatic arthritis 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 Psoriasis Fatigue, unspecified type 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) skilled nursing current use of 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, 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, current use Long-term current use of high risk medication other than anticoagulant Lumbosacral spondylosis without myelopathy Disorder of bone and cartilage Plaque psoriasis Cervicalgia Dorsalgia Chronic pain of both shoulders Bilateral elbow joint pain Bilateral wrist pain Bilateral hand pain Chronic pain of both knees Expected: 03/29/2019 (Approximate), Expires: 03/29/2019 [facility] Work Phone: Comment on above: Expected: 03/29/2019 (Approximate), Expi res: 03/29/2019 Start: 03-29-2019 End: 03-29-2019 T-TRANSGLUTAMINASE IGA AB T-TRANSGLUTAMINASE IGA AB Routine Psoriatic arthritis 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 Psoriasis Fatigue, unspecified type 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) skilled nursing current use of 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, senior care, current use Long-term current use of high risk medication other than anticoagulant Lumbosacral spondylosis without myelopathy Disorder of bone and cartilage Plaque psoriasis Cervicalgia Dorsalgia Chronic pain of both shoulders Bilateral elbow joint pain Bilateral wrist pain Bilateral hand pain Chronic pain of both knees Expected: 03/29/2019 (Approximate), Expires: 03/29/2019 [facility] Work Phone: Comment on above: Expected: 03/29/2019 (Approximate), Expi res: 03/29/2019 Start: 03-29-2019 End: 03-29-2019 TESTOSTERONE TESTOSTERONE Routine Psoriat ic arthritis 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 Psoriasis Fatigue, unspecified type 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, senior care, current use Long-term current use of high risk medication other than anticoagulant Lumbosacral spondylosis without myelopathy Disorder of bone and cartilage Plaque psoriasis Cervicalgia Dorsalgia Chronic pain of both shoulders Bilateral elbow joint pain Bilateral wrist pain Bilateral hand pain Chronic pain of both knees Expected: 03/29/2019 (Approximate), Expires: 03/29/2019 [facility] Work Phone: Comment on above: Expected: 03/29/2019 (Approximate), Expi res: 03/29/2019 Start: 03-29-2019 End: 03-29-2019 Thyrotropin Qn TSH Routine Psoriatic arthri tis 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 Psoriasis Fatigue, unspecified type History of psoriatic arthritis skilled nursing current use of non-steroidal anti-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, 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, current use Long-term current use of high risk medication other than anticoagulant Lumbosacral spondylosis without myelopathy Disorder of bone and cartilage Plaque psoriasis Cervicalgia Dorsalgia Chronic pain of both shoulders Bilateral elbow joint pain Bilateral wrist pain Bilateral hand pain Chronic pain of both knees Expected: 03/29/2019 (Approximate), Expires: 03/29/2019 [facility] Work Phone: Comment on above: Expected: 03/29/2019 (Approximate), Expi res: 03/29/2019 Start: 03-29-2019 End: 03-29-2019 Urate mass conc URIC ACID Routine Psoriatic arthritis 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 Psoriasis Fatigue, unspecified type 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) skilled nursing current use of 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, senior care, current use Long-term current use of high risk medication other than anticoagulant Lumbosacral spondylosis without myelopathy Disorder of bone and cartilage Plaque psoriasis Cervicalgia Dorsalgia Chronic pain of both shoulders Bilateral elbow joint pain Bilateral wrist pain Bilateral hand pain Chronic pain of both knees Expected: 03/29/2019 (Approximate), Expires: 03/29/2019 [facility] Work Phone: Comment on above: Expected: 03/29/2019 (Approximate), Expi res: 03/29/2019 Start: 03-29-2019 End: 03-29-2019 VITAMIN D (25-HYDROXY,TOTAL) VITAMIN D (25-HYDROXY,TOTAL) Routine Psoriatic arthritis 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 Psoriasis Fatigue, unspecified type History of psoriatic arthritis skilled nursing 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, senior care, current use Long-term current use of high risk medication other than anticoagulant Lumbosacral spondylosis without myelopathy Disorder of bone and cartilage Plaque psoriasis Cervicalgia Dorsalgia Chronic pain of both shoulders Bilateral elbow joint pain Bilateral wrist pain Bilateral hand pain Chronic pain of both knees Expected: 03/29/2019 (Approximate), Expires: 03/29/2019 [facility] Work Phone: Comment on above: Expected: 03/29/2019 (Approximate), Expi res: 03/29/2019 Start: 03-29-2019 End: 03-29-2019 VITAMIN D, (1,25 DIHYDROXY) VITAMIN D, (1,25 DIHYDROXY) Routine Psoriatic arthritis 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 Psoriasis Fatigue, unspecified type History of psoriatic arthritis skilled nursing current use of non-steroidal anti-inflammatories (NSAID) skilled nursing current use of 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, senior care, current use Long-term current use of high risk medication other than anticoagulant Lumbosacral spondylosis without myelopathy Disorder of bone and cartilage Plaque psoriasis Cervicalgia Dorsalgia Chronic pain of both shoulders Bilateral elbow joint pain Bilateral wrist pain Bilateral hand pain Chronic pain of both knees Expected: 03/29/2019 (Approximate), Expires: 03/29/2019 [facility] Work Phone: Comment on above: Expected: 03/29/2019 (Approximate), Expi res: 03/29/2019 Start: 01-07-2019 End: 01-07-[address] [facility] Start: 12-04-2018 End: 09-04-2019 VITAMIN D (25-HYDROXY,TOTAL) VITAMIN D (25-HYDROXY,TOTAL) Lab Routine Vitamin D deficiency Expected: 12/04/2018 (Approximate), [facility]pires: [facility] Comment on above: Expected: 12/04/2018 (Approximate), Expi res: 09/04/2019 Start: 12-04-2018 End: 09-04-2019 VITAMIN D, (1,25 DIHYDROXY) VITAMIN D, (1,25 DIHYDROXY) Lab Routine Vitamin D deficiency Expected: 12/04/2018 (Approximate), Expires: [facility]04/[facility] Comment on above: Expected: 12/04/2018 (Approximate), Expi res: 09/04/2019 Start: 12-01-2018 Influenza vaccination [employer] Start: 09-06-2018 End: 09-06-2018 Ambulatory 09/06/2018 [facility] Vas[facility] [address] [place] [address] [phone] [facility] Start: 09-03-2018 End: 09-04-2019 VITAMIN D (25-HYDROXY,TOTAL) [facility] Comment on above: Expected: 09/03/2018 (Approximate), Expi res: 09/04/2019 Expected: 09/03/2018 , Expires: 09/03/2019 Start: 09-03-2018 End: 09-04-2019 VITAMIN D, (1,25 DIHYDROXY) [employer] Comment on above: Expected: 09/03/2018 (Approximate), Expi res: 09/04/2019 Expected: 09/03/2018 , Expires: 09/03/2019 Start: 06-30-2018 End: 04-01-2019 VITAMIN D (25-HYDROXY,TOTAL) VITAMIN D (25-HYDROXY,TOTAL) Routine Vitamin D deficiency Expected: 06/30/2018 (Approximate), [facility] Comment on above: Expected: 06/30/2018 (Approximate), Expi res: 04/01/2019 Start: 06-30-2018 End: 04-01-2019 VITAMIN D, (1,25 DIHYDROXY) VITAMIN D, (1,25 DIHYDROXY) Routine Vitamin D deficiency Expected: 06/30/2018 (Approximate), Expires: 04/01/2019 [facility] Work Phone: Comment on above: Expected: 06/30/2018 (Approximate), Expi res: 04/01/2019 Start: 05-09-2018 End: 05-09-2018 Ambulatory 05/09/2018 Office Visit Rheumatology Tra Vale Jr., DO [address] [place] [id number] [phone] [facility] Start: 05-03-2018 End: 05-03-2018 Ambulatory 05/03/2018 Office Visit Rheumatology Tra Vale Jr., DO [address] [place] [id number] [phone] [facility] Start: 03-29-2018 End: 03-29-2019 Diagnostic radiography of lumbar spine XR SPINE LUMBOSACRAL 5 VIEWS Routine Psoriatic arthritis 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 Psoriasis Fatigue, unspecified type 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, 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, 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 Long-term current use of high risk medication other than anticoagulant Lumbosacral spondylosis without myelopathy Disorder of bone and cartilage Plaque psoriasis Cervicalgia Dorsalgia Chronic pain of both shoulders Bilateral elbow joint pain Bilateral wrist pain Bilateral hand pain Chronic pain of both knees Expected: 03/29/2018, Expires: 03/29/2019 [facility] Work Phone: Comment on above: Expected: 03/29/2018, Expires: 9 Start: 03-29-2018 End: 03-29-2019 Diagnostic radiography of sacroiliac joints XR SACROILIAC JOINTS MIN 3 VIEWS Routine Psoriatic arthritis 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 Psoriasis Fatigue, unspecified type 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, 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, 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 use Long-term current use of high risk medication other than anticoagulant Lumbosacral spondylosis without myelopathy Disorder of bone and cartilage Plaque psoriasis Cervicalgia Dorsalgia Chronic pain of both shoulders Bilateral elbow joint pain Bilateral wrist pain Bilateral hand pain Chronic pain of both knees Expected: 03/29/2018, Expires: 03/29/2019 [facility] Work Phone: Comment on above: Expected: 03/29/2018, Expires: 9 Start: 03-29-2018 End: 03-29-2019 M TUBERCULOSIS BY QUANTIFERON, BLD M TUBERCULOSIS BY QUANTIFERON, BLD Routine Psoriatic arthritis 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 Psoriasis Fatigue, unspecified type History of psoriatic arthritis skilled nursing current use of non-steroidal anti-inflammatories (NSAID) skilled nursing current use of 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, 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, current use Long-term current use of high risk medication other than anticoagulant Lumbosacral spondylosis without myelopathy Disorder of bone and cartilage Plaque psoriasis Cervicalgia Dorsalgia Chronic pain of both shoulders Bilateral elbow joint pain Bilateral wrist pain Bilateral hand pain Chronic pain of both knees Expected: 03/29/2018 (Approximate), Expires: 03/29/2019 [facility] Work Phone: Comment on above: Expected: 03/29/2018 (Approximate), Expi res: 03/29/2019 Start: 03-29-2018 End: 03-29-2019 Radiography of cervical spine XR SPINE CERVICAL WITH OBL AND FLEX/EXT Routine Psoriatic arthritis 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 Psoriasis Fatigue, unspecified type History of psoriatic arthritis skilled nursing current use of non-steroidal anti-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, senior care, current use Long-term current use of high risk medication other than anticoagulant Lumbosacral spondylosis without myelopathy Disorder of bone and cartilage Plaque psoriasis Cervicalgia Dorsalgia Chronic pain of both shoulders Bilateral elbow joint pain Bilateral wrist pain Bilateral hand pain Chronic pain of both knees Expected: 03/29/2018, Expires: 03/29/2019 [facility] Work Phone: Comment on above: Expected: 03/29/2018, Expires: Start: 03-29-2018 End: 03-29-2019 Radiography of hand XR HANDS-RHEUMATOLOGY EVAL O NLY Routine Psoriatic arthritis 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 Psoriasis Fatigue, unspecified type History of psoriatic arthritis skilled nursing current use of non-steroidal anti-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, 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, current use Long-term current use of high risk medication other than anticoagulant Lumbosacral spondylosis without myelopathy Disorder of bone and cartilage Plaque psoriasis Cervicalgia Dorsalgia Chronic pain of both shoulders Bilateral elbow joint pain Bilateral wrist pain Bilateral hand pain Chronic pain of both knees Expected: 03/29/2018, Expires: 03/29/2019 [facility] Work Phone: Comment on above: Expected: 03/29/2018, Expires: Start: 03-29-2018 End: 03-29-2019 Radiography of shoulder [facility] Work Phone: Comment on above: Expected: 03/29/2018, Expires: Start: 03-29-2018 End: 03-29-2019 Radiography of wrist [facility] Work Phone: Comment on above: Expected: 03/29/2018, Expires: Start: 03-29-2018 End: 03-29-2019 Radiologic examination of knee [facility] Work Phone: Comment on above: Expected: 03/29/2018, Expires: 9 Start: 03-29-2018 End: 03-29-2019 X-ray of both knees XR KNEES BILATERAL STANDING 1 VIEW Routine Psoriatic arthritis 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 Psoriasis Fatigue, unspecified type History of psoriatic arthritis skilled nursing current use of non-steroidal anti-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, senior care, current use Long-term current use of high risk medication other than anticoagulant Lumbosacral spondylosis without myelopathy Disorder of bone and cartilage Plaque psoriasis Cervicalgia Dorsalgia Chronic pain of both shoulders Bilateral elbow joint pain Bilateral wrist pain Bilateral hand pain Chronic pain of both knees Expected: 03/29/2018, Expires: 03/29/2019 [facility] Work Phone: Comment on above: Expected: 03/29/2018, Expires: 9 Start: 12-01-2017 Influenza vaccination INFLUENZA VACCINE (#1) [facility] Work Phone: Start: 2016 Colonoscopy [facility] Work Phone: Start: 2016 Prostate specific antigen measurement PROSTATE CANCER SCREENING DISCUSSION [facility] Start: 2016 Protein mass conc COLON CANCER SCREENING DISCUSSION [facility] Work Phone: Start: 2016 Zoster vaccine hzv live for subcutaneous use ZOSTER (SHINGLES) VACCINE (1 of 2) [facility] Start: 2011 Colonoscopy COLORECTAL CANCER SCREENING DISCUSSION [facility] Start: 2011 Screening for malignant neoplasm of colon COLORECTAL CANCER SCREENING DISCUSSION [facility] Start: 2006 Fasting lipid profile LIPID SCREENING [facility] Start: 2006 Lipid panel LIPID SCREENING [facility] Start: 1985 Hepatitis B vaccination HEP B VACCINE (1 of 3 - 19+ 3-dose series) [facility] Start: 1985 Third diphtheria, tetanus and acellular pertussis (DTaP) vaccination TDAP (ADULT) [facility] Start: 1984 Tetanus vaccination TETANUS [facility] Start: 1982 COVID-19 VACCINE (1) COVID-19 VACCINE (1) [facility] Start: 1981 HIV screening HIV SCREENING DISCUSSION [facility] Start: 1979 HIV screening HIV SCREENING DISCUSSION [facility] Work Phone: Start: 1971 COVID-19 VACCINE (1) COVID-19 VACCINE (1) [facility] Start: 1966 COVID-19 VACCINE (#1) COVID-19 VACCINE (#1) [facility] Start: 1966 Finding of potassium level (finding) POTASSIUM [facility] Start: 1966 Hepatitis B vaccination HEP B VACCINE (1 of 3 - 3-dose series) [facility] Start: 1966 Hepatitis C antibody, confirmatory test HEPATITIS C VIRUS SCREENING [facility] Start: 1966 Hepatitis C screening HEPATITIS C VIRUS SCREENING [facility] End: 07-12-2022 Alanine aminotransferase [Enzymatic activity/volume] in Serum or Plasma ALT Lab Routine Psoriatic arthritis Psoriatic spondylitis Psoriasis Plaque psoriasis Anemia, unspecified type Methotrexate, senior care, current use Long-term current use of high risk medication other than anticoagulant 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 current use of non-steroidal anti-inflammatories (NSAID) History [...] Occurrences starting 07/12/2021 until 07/12/2022, 1 completed [facility] Comment on above: Every 8 Weeks for 6 Occurrences starting 07/12/2021 until 07/12/2022, 1 completed End: 01-10-2023 Alanine aminotransferase [Enzymatic activity/volume] in Serum or Plasma ALT Lab Routine Psoriatic arthritis 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 Psoriatic spondylitis Plaque psoriasis Psoriasis SAPHO syndrome History of psoriatic arthritis skilled nursing current use of non-steroidal anti-inflammatories (NSAID) Long-term current use of high risk medication other than anticoagulant 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, 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, current use Every 8 Weeks for 6 Occurrences starting 01/10/2022 until 01/10/2023 [employer] Comment on above: Every 8 Weeks for 6 Occurrences starting 01/10/2022 until 01/10/2023 End: 07-26-2023 Alanine aminotransferase [Enzymatic activity/volume] in Serum or Plasma ALT Lab Routine Psoriatic arthritis 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 Psoriatic spondylitis Macrocytic anemia Plaque psoriasis Psoriasis SAPHO syndrome History of kidney stones 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) Long-term current use of high risk medication other than anticoagulant Methotrexate, 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, current use Abnormal renal function test Vitamin [...] for 4 Occurrences starting 07/25/2022 until 07/26/2023 [employer] Comment on above: Every 12 Weeks for 4 Occurrences startin g 07/25/2022 until 07/26/2023 End: 01-24-2024 Alanine aminotransferase [Enzymatic activity/volume] in Serum or Plasma ALT Lab Routine Psoriatic arthritis 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 Psoriatic spondylitis Plaque psoriasis Psoriasis SAPHO syndrome History of kidney stones History of psoriatic arthritis Long-term current use of high risk medication other than anticoagulant Methotrexate, senior care, current use Vitamin D deficiency DDD (degenerative [...] for 4 Occurrences starting 01/23/2023 until 01/24/2024 [employer] Comment on above: Every 12 Weeks for 4 Occurrences startin g 01/23/2023 until 01/24/2024 End: 07-30-2024 Alanine aminotransferase [Enzymatic activity/volume] in Serum or Plasma ALT Lab Routine Psoriatic arthritis Primary osteoarthritis of both knees Osteoarthritis of both wrists, unspecified osteoarthritis type Osteoarthritis of both hips, unspecified osteoarthritis type Osteoarthritis of both hands, unspecified osteoarthritis type Osteoarthritis of both glenohumeral joints Osteoarthritis of both acromioclavicular joints Osteoarthritis of cervical spine, unspecified spinal osteoarthritis complication status Lumbosacral spondylosis without myelopathy Impingement syndrome of both shoulders DDD (degenerative disc disease), cervical SAPHO syndrome Macrocytic anemia Psoriasis Plaque psoriasis Hyperchromic anemia Methotrexate, senior care, current use Long-term current use of high risk medication other than anticoagulant History of psoriatic arthritis History of kidney stones Abnormal renal function test Vitamin D deficiency 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 Every 12 Weeks for 4 Occurrences starting 07/31/2023 until 07/30/2024 [employer] [facility] Comment on above: Every 12 Weeks for 4 Occurrences startin g 07/31/2023 until 07/30/2024 End: 09-08-2020 ALT [Catalytic activity/Vol] ALT Lab Routine Psoriatic arthritis 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 Psoriatic spondylitis Psoriasis SAPHO syndrome History of psoriatic arthritis skilled nursing current use of non-steroidal anti-inflammatories (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, 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, current use Long-term current use of high [...] psoriasis 6 Occurrences starting 10/11/2019 until 09/08/2020 [employer] Comment on above: 6 Occurrences starting 10/11/2019 until 09/08/2020 End: 01-12-2021 ALT [Catalytic activity/Vol] ALT Lab Routine Psoriatic arthritis Psoriasis Plaque psoriasis Methotrexate, senior care, current use Long-term current use of high risk medication other than anticoagulant 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) History [...] Occurrences starting 01/13/2020 until 01/12/2021, 1 completed [facility] [employer] [facility] Comment on above: 6 Occurrences starting 01/13/2020 until 01/12/2021, 1 completed End: 01-08-2020 ALT [Catalytic activity/Vol] ALT Lab Routine Psoriatic arthritis Psoriatic spondylitis Psoriasis Plaque psoriasis Anemia, unspecified type Methotrexate, 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, current use Long-term current use of high risk medication other than anticoagulant 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 current use of non-steroidal anti-inflammatories (NSAID) History [...] cervical 6 Occurrences starting 01/04/2019 until 01/08/2020 [employer] Comment on above: 6 Occurrences starting 01/04/2019 until 01/08/2020 End: 07-13-2021 ALT [Catalytic activity/Vol] ALT Lab Routine Psoriatic arthritis 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 Psoriatic spondylitis Psoriasis SAPHO syndrome 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, 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, current use Long-term current use of high [...] Occurrences starting 09/12/2020 until 07/13/2021, 1 completed [facility] Comment on above: 6 Occurrences starting 09/12/2020 until 07/13/2021, 1 completed End: 05-03-2019 ALT enzyme act/vol ALT Routine Psoriatic arthri tis 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 Psoriasis Anemia, unspecified type skilled nursing current use of non-steroidal anti-inflammatories (NSAID) skilled nursing current use of 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, senior care, current use Long-term current use of high [...] psoriasis 6 Occurrences starting 05/30/2018 until 05/03/2019 [facility] Work Phone: Comment on above: 6 Occurrences starting 05/30/2018 until 05/03/2019 End: 09-04-2019 ALT enzyme act/vol ALTLabRoutinePsoriatic arthritisPsoriatic arthropathy of distal interphalangeal (DIP) jointPsoriatic spondylitisHistory of psoriatic arthritisLong term current use of non-steroidal anti-inflammatories (NSAID)skilled nursing current use of systemic steroidsLong-term current use of high risk medication other than anticoagulantMethotrexate, 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, current useNoncompliancePatient non adherenceVitamin D deficiencyDDD (degenerative [...] starting 11/03/2018 until (more content not included)... 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) History [...] Occurrences starting 07/12/2021 until 07/12/2022, 1 completed [employer] Comment on above: Every 8 Weeks for 6 Occurrences starting 07/12/2021 until 07/12/2022, 1 completed End: 01-10-2023 Aspartate aminotransferase [Enzymatic activity/volume] in Serum or Plasma AST Lab Routine Psoriatic arthritis 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 Psoriatic spondylitis Plaque psoriasis Psoriasis SAPHO syndrome History of psoriatic arthritis skilled nursing current use of non-steroidal anti-inflammatories (NSAID) Long-term current use of high risk medication other than anticoagulant Methotrexate, senior care, current use Every 8 Weeks for 6 Occurrences starting 01/10/2022 until 01/10/2023 [employer] Comment on above: Every 8 Weeks for 6 Occurrences starting 01/10/2022 until 01/10/2023 End: 07-26-2023 Aspartate aminotransferase [Enzymatic activity/volume] in Serum or Plasma AST Lab Routine Psoriatic arthritis 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 Psoriatic spondylitis Macrocytic anemia Plaque psoriasis Psoriasis SAPHO syndrome History of kidney stones 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) Long-term current use of high risk medication other than anticoagulant Methotrexate, 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, current use Abnormal renal function test Vitamin [...] for 4 Occurrences starting 07/25/2022 until 07/26/2023 [employer] Comment on above: Every 12 Weeks for 4 Occurrences startin g 07/25/2022 until 07/26/2023 End: 01-24-2024 Aspartate aminotransferase [Enzymatic activity/volume] in Serum or Plasma AST Lab Routine Psoriatic arthritis 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 Psoriatic spondylitis Plaque psoriasis Psoriasis SAPHO syndrome History of kidney stones History of psoriatic arthritis Long-term current use of high risk medication other than anticoagulant Methotrexate, senior care, current use Vitamin D deficiency DDD (degenerative [...] for 4 Occurrences starting 01/23/2023 until 01/24/2024 [employer] Comment on above: Every 12 Weeks for 4 Occurrences startin g 01/23/2023 until 01/24/2024 End: 07-30-2024 Aspartate aminotransferase [Enzymatic activity/volume] in Serum or Plasma AST Lab Routine Psoriatic arthritis Primary osteoarthritis of both knees Osteoarthritis of both wrists, unspecified osteoarthritis type Osteoarthritis of both hips, unspecified osteoarthritis type Osteoarthritis of both hands, unspecified osteoarthritis type Osteoarthritis of both glenohumeral joints Osteoarthritis of both acromioclavicular joints Osteoarthritis of cervical spine, unspecified spinal osteoarthritis complication status Lumbosacral spondylosis without myelopathy Impingement syndrome of both shoulders DDD (degenerative disc disease), cervical SAPHO syndrome Macrocytic anemia Psoriasis Plaque psoriasis Hyperchromic anemia Methotrexate, 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, current use Long-term current use of high risk medication other than anticoagulant History of psoriatic arthritis History of kidney stones Abnormal renal function test Vitamin D deficiency 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 Every 12 Weeks for 4 Occurrences starting 07/31/2023 until 07/30/2024 [employer] Comment on above: Every 12 Weeks for 4 Occurrences startin g 07/31/2023 until 07/30/2024 End: 09-08-2020 AST [Catalytic activity/Vol] AST Lab Routine Psoriatic arthritis 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 Psoriatic spondylitis Psoriasis SAPHO syndrome History of psoriatic arthritis skilled nursing current use of non-steroidal anti-inflammatories (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, 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, current use Long-term current use of high [...] psoriasis 6 Occurrences starting 10/11/2019 until 09/08/2020 [employer] Comment on above: 6 Occurrences starting 10/11/2019 until 09/08/2020 End: 01-12-2021 AST [Catalytic activity/Vol] AST Lab Routine Psoriatic arthritis Psoriasis Plaque psoriasis Methotrexate, senior care, current use Long-term current use of high risk medication other than anticoagulant skilled nursing current use of non-steroidal anti-inflammatories (NSAID) History [...] Occurrences starting 01/13/2020 until 01/12/2021, 1 completed [employer] Comment on above: 6 Occurrences starting 01/13/2020 until 01/12/2021, 1 completed End: 07-13-2021 AST [Catalytic activity/Vol] AST Lab Routine Psoriatic arthritis 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 use Long-term current use of high [...] psoriasis 6 Occurrences starting 05/30/2018 until 05/03/2019 [facility] Work Phone: Comment on above: 6 Occurrences starting 05/30/2018 until 05/03/2019 End: 09-04-2019 AST enzyme act/vol ASTLabRoutinePsoriatic arthritisPsoriatic arthropathy of distal interphalangeal (DIP) jointPsoriatic spondylitisHistory of psoriatic arthritisLong term current use of non-steroidal anti-inflammatories (NSAID)skilled nursing current use of systemic steroidsLong-term current use of high risk medication other than anticoagulantMethotrexate, 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, current useNoncompliancePatient non adherenceVitamin D deficiencyDDD (degenerative [...] starting 11/03/2018 until (more content not included)... 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) History [...] Occurrences starting 07/12/2021 until 07/12/2022, 1 completed [employer] [facility] Comment on above: Every 8 Weeks for 6 Occurrences starting 07/12/2021 until 07/12/2022, 1 completed End: 01-10-2023 C-reactive protein C REACTIVE PROTEIN Lab Routi ne Psoriatic arthritis Psoriatic arthropathy of distal interphalangeal (DIP) joint Psoriatic spondylitis Plaque psoriasis Psoriasis SAPHO syndrome History of psoriatic arthritis skilled nursing current use of non-steroidal anti-inflammatories (NSAID) Long-term current use of high risk medication other than anticoagulant Methotrexate, 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, current use Every 8 Weeks for 6 Occurrences starting 01/10/2022 until 01/10/2023 [employer] Comment on above: Every 8 Weeks for 6 Occurrences starting 01/10/2022 until 01/10/2023 End: 07-26-2023 C-reactive protein C REACTIVE PROTEIN Lab Routi ne Psoriatic arthritis 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 Psoriatic spondylitis Macrocytic anemia Plaque psoriasis Psoriasis SAPHO syndrome History of kidney stones 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) Long-term current use of high risk medication other than anticoagulant Methotrexate, senior care, current use Abnormal renal function test Vitamin [...] for 4 Occurrences starting 07/25/2022 until 07/26/2023 [employer] Comment on above: Every 12 Weeks for 4 Occurrences startin g 07/25/2022 until 07/26/2023 End: 01-24-2024 C-reactive protein C REACTIVE PROTEIN Lab Routi ne Psoriatic arthritis 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 Psoriatic spondylitis Plaque psoriasis Psoriasis SAPHO syndrome History of kidney stones History of psoriatic arthritis Long-term current use of high risk medication other than anticoagulant Methotrexate, 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, current use Vitamin D deficiency DDD (degenerative [...] for 4 Occurrences starting 01/23/2023 until 01/24/2024 [employer] Comment on above: Every 12 Weeks for 4 Occurrences startin g 01/23/2023 until 01/24/2024 End: 07-30-2024 C-reactive protein C REACTIVE PROTEIN Lab Routi ne Psoriatic arthritis Primary osteoarthritis of both knees Osteoarthritis of both wrists, unspecified osteoarthritis type Osteoarthritis of both hips, unspecified osteoarthritis type Osteoarthritis of both hands, unspecified osteoarthritis type Osteoarthritis of both glenohumeral joints Osteoarthritis of both acromioclavicular joints Osteoarthritis of cervical spine, unspecified spinal osteoarthritis complication status Lumbosacral spondylosis without myelopathy Impingement syndrome of both shoulders DDD (degenerative disc disease), cervical SAPHO syndrome Macrocytic anemia Psoriasis Plaque psoriasis Hyperchromic anemia Methotrexate, senior care, current use Long-term current use of high risk medication other than anticoagulant History of psoriatic arthritis History of kidney stones Abnormal renal function test Vitamin D deficiency 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 Every 12 Weeks for 4 Occurrences starting 07/31/2023 until 07/30/2024 [employer] [facility] Comment on above: Every 12 Weeks for 4 Occurrences startin g 07/31/2023 until 07/30/2024 End: 01-08-2020 CBC, EDIF, PLATELET CBC, EDIF, PLATELET Lab Rout ine Psoriatic arthritis Psoriatic spondylitis Psoriasis Plaque psoriasis Anemia, unspecified type Methotrexate, senior care, current use Long-term current use of high risk medication other than anticoagulant 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 current use of non-steroidal anti-inflammatories (NSAID) History [...] cervical 6 Occurrences starting 01/04/2019 until 01/08/2020 [employer] Comment on above: 6 Occurrences starting 01/04/2019 until 01/08/2020 End: 05-03-2019 CBC,PLATELETS CBC,PLATELETS Routine Psoria tic arthritis 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 Psoriasis Anemia, unspecified type 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) skilled nursing current use of 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, senior care, current use Long-term current use of high [...] psoriasis 6 Occurrences starting 05/30/2018 until 05/03/2019 [facility] Work Phone: Comment on above: 6 Occurrences starting 05/30/2018 until 05/03/2019 End: 09-04-2019 CBC,PLATELETS CBC,PLATELETSLabRoutinePsori atic arthritisPsoriatic arthropathy of distal interphalangeal (DIP) jointPsoriatic spondylitisHistory of psoriatic arthritisLong term current use of non-steroidal anti-inflammatories (NSAID)skilled nursing current use of systemic steroidsLong-term current use of high risk medication other than anticoagulantMethotrexate, senior care, current useNoncompliancePatient non adherenceVitamin D deficiencyDDD (degenerative [...] starting 11/03/2018 until (more content not included)... 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, senior care, current use Long-term current use of high [...] psoriasis 6 Occurrences starting 10/11/2019 until 09/08/2020 [employer] Comment on above: 6 Occurrences starting 10/11/2019 until 09/08/2020 End: 01-12-2021 Complete blood count with white cell differential, automated CBC, EDIF, PLATELET Lab Routine Psoriatic arthritis Psoriasis Plaque psoriasis Methotrexate, senior care, current use Long-term current use of high risk medication other than anticoagulant skilled nursing current use of non-steroidal anti-inflammatories (NSAID) History [...] Occurrences starting 01/13/2020 until 01/12/2021, 1 completed [employer] Comment on above: 6 Occurrences starting 01/13/2020 until 01/12/2021, 1 completed End: 07-13-2021 Complete blood count with white cell differential, automated CBC, EDIF, PLATELET Lab Routine Psoriatic arthritis 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 Psoriatic spondylitis Psoriasis SAPHO syndrome History of psoriatic arthritis skilled nursing current use of non-steroidal anti-inflammatories (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, 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, current use Long-term current use of high [...] Occurrences starting 09/12/2020 until 07/13/2021, 1 completed [employer] Comment on above: 6 Occurrences starting 09/12/2020 until 07/13/2021, 1 completed End: 07-12-2022 Complete blood count with white cell differential, automated CBC, EDIF, PLATELET Lab Routine Psoriatic arthritis Psoriatic spondylitis Psoriasis Plaque psoriasis Anemia, unspecified type Methotrexate, 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, current use Long-term current use of high risk medication other than anticoagulant skilled nursing current use of systemic 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) History [...] Occurrences starting 07/12/2021 until 07/12/2022, 1 completed [employer] Comment on above: Every 8 Weeks for 6 Occurrences starting 07/12/2021 until 07/12/2022, 1 completed End: 01-10-2023 Complete blood count with white cell differential, automated CBC, EDIF, PLATELET Lab Routine Psoriatic arthritis Psoriatic arthropathy of distal interphalangeal (DIP) joint Psoriatic spondylitis Plaque psoriasis Psoriasis SAPHO syndrome 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) Long-term current use of high risk medication other than anticoagulant Methotrexate, 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, current use Every 8 Weeks for 6 Occurrences starting 01/10/2022 until 01/10/2023 [employer] Comment on above: Every 8 Weeks for 6 Occurrences starting 01/10/2022 until 01/10/2023 End: 07-26-2023 Complete blood count with white cell differential, automated CBC, EDIF, PLATELET Lab Routine Psoriatic arthritis Psoriatic arthropathy of distal interphalangeal (DIP) joint Psoriatic spondylitis Macrocytic anemia Plaque psoriasis Psoriasis SAPHO syndrome History of kidney stones 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: Every 12 Weeks for [...] high risk medication other than anticoagulant Methotrexate, 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, current use Vitamin D deficiency DDD (degenerative [...] for 4 Occurrences starting 01/23/2023 until 01/24/[facility]: Every 12 Weeks for 4 Occurrences startin g 01/23/2023 until 01/24/2024 End: 07-30-2024 Complete blood count with white cell differential, automated CBC, EDIF, PLATELET Lab Routine Psoriatic arthritis Primary osteoarthritis of both knees Osteoarthritis of both wrists, unspecified osteoarthritis type Osteoarthritis of both hips, unspecified osteoarthritis type Osteoarthritis of both hands, unspecified osteoarthritis type Osteoarthritis of both glenohumeral joints Osteoarthritis of both acromioclavicular joints Osteoarthritis of cervical spine, unspecified spinal osteoarthritis complication status Lumbosacral spondylosis without myelopathy Impingement syndrome of both shoulders DDD (degenerative disc disease), cervical SAPHO syndrome Macrocytic anemia Psoriasis Plaque psoriasis Hyperchromic anemia Methotrexate, senior care, current use Long-term current use of high risk medication other than anticoagulant History of psoriatic arthritis History of kidney stones Abnormal renal function test Vitamin D deficiency 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 Every 12 Weeks for 4 Occurrences starting 07/31/2023 until 07/30/2024 [employer] Comment on above: Every 12 Weeks for 4 Occurrences startin g 07/31/2023 until 07/30/2024 End: 09-08-2020 Creatinine [Mass/Vol] CREATININE SERUM Lab Routine Psoriatic arthritis 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 Psoriatic spondylitis Psoriasis SAPHO syndrome 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, 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, current use Long-term current use of high [...] psoriasis 6 Occurrences starting 10/11/2019 until 09/08/2020 [employer] Comment on above: 6 Occurrences starting 10/11/2019 until 09/08/2020 End: 01-12-2021 Creatinine [Mass/Vol] CREATININE SERUM Lab Routine Psoriatic arthritis Psoriasis Plaque psoriasis Methotrexate, 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, current use Long-term current use of high risk medication other than anticoagulant 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) History [...] Occurrences starting 01/13/2020 until 01/12/2021, 1 completed [employer] Comment on above: 6 Occurrences starting 01/13/2020 until 01/12/2021, 1 completed End: 01-08-2020 Creatinine [Mass/Vol] CREATININE SERUM Lab Routine Psoriatic arthritis Psoriatic spondylitis Psoriasis Plaque psoriasis Anemia, unspecified type Methotrexate, senior care, current use Long-term current use of high risk medication other than anticoagulant 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) History [...] cervical 6 Occurrences starting 01/04/2019 until 01/08/2020 [employer] Comment on above: 6 Occurrences starting 01/04/2019 until 01/08/2020 End: 07-13-2021 Creatinine [Mass/Vol] CREATININE SERUM Lab Routine Psoriatic arthritis 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 Psoriatic spondylitis Psoriasis SAPHO syndrome 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, senior care, current use Long-term current use of high [...] Occurrences starting 09/12/2020 until 07/13/2021, 1 completed [employer] [facility] Comment on above: 6 Occurrences starting 09/12/2020 until 07/13/2021, 1 completed End: 07-12-2022 Creatinine [Mass/volume] in Serum or Plasma CREATININE SERUM Lab Routine Psoriatic arthritis Psoriatic spondylitis Psoriasis Plaque psoriasis Anemia, unspecified type Methotrexate, 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, current use Long-term current use of high risk medication other than anticoagulant 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) History [...] Occurrences starting 07/12/2021 until 07/12/2022, 1 completed [employer] Comment on above: Every 8 Weeks for 6 Occurrences starting 07/12/2021 until 07/12/2022, 1 completed End: 01-10-2023 Creatinine [Mass/volume] in Serum or Plasma CREATININE SERUM Lab Routine Psoriatic arthritis Psoriatic arthropathy of distal interphalangeal (DIP) joint Psoriatic spondylitis Plaque psoriasis Psoriasis SAPHO syndrome 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) Long-term current use of high risk medication other than anticoagulant Methotrexate, 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, current use Every 8 Weeks for 6 Occurrences starting 01/10/2022 until 01/10/2023 [employer] Comment on above: Every 8 Weeks for 6 Occurrences starting 01/10/2022 until 01/10/2023 End: 07-26-2023 Creatinine [Mass/volume] in Serum or Plasma CREATININE SERUM Lab Routine Psoriatic arthritis 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 Psoriatic spondylitis Macrocytic anemia Plaque psoriasis Psoriasis SAPHO syndrome History of kidney stones 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) Long-term current use of high risk medication other than anticoagulant Methotrexate, senior care, current use Abnormal renal function test Vitamin [...] for 4 Occurrences starting 07/25/2022 until 07/26/2023 [employer] Comment on above: Every 12 Weeks for 4 Occurrences startin g 07/25/2022 until 07/26/2023 End: 01-24-2024 Creatinine [Mass/volume] in Serum or Plasma CREATININE SERUM Lab Routine Psoriatic arthritis 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 Psoriatic spondylitis Plaque psoriasis Psoriasis SAPHO syndrome History of kidney stones History of psoriatic arthritis Long-term current use of high risk medication other than anticoagulant Methotrexate, senior care, current use Vitamin D deficiency DDD (degenerative [...] for 4 Occurrences starting 01/23/2023 until 01/24/2024 [employer] Comment on above: Every 12 Weeks for 4 Occurrences startin g 01/23/2023 until 01/24/2024 End: 07-30-2024 Creatinine [Mass/volume] in Serum or Plasma CREATININE SERUM Lab Routine Psoriatic arthritis Primary osteoarthritis of both knees Osteoarthritis of both wrists, unspecified osteoarthritis type Osteoarthritis of both hips, unspecified osteoarthritis type Osteoarthritis of both hands, unspecified osteoarthritis type Osteoarthritis of both glenohumeral joints Osteoarthritis of both acromioclavicular joints Osteoarthritis of cervical spine, unspecified spinal osteoarthritis complication status Lumbosacral spondylosis without myelopathy Impingement syndrome of both shoulders DDD (degenerative disc disease), cervical SAPHO syndrome Macrocytic anemia Psoriasis Plaque psoriasis Hyperchromic anemia Methotrexate, 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, current use Long-term current use of high risk medication other than anticoagulant History of psoriatic arthritis History of kidney stones Abnormal renal function test Vitamin D deficiency 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] psoriasis 6 Occurrences starting 05/30/2018 until 05/03/2019 [facility] Work Phone: Comment on above: 6 Occurrences starting 05/30/2018 until 05/03/2019 End: 09-04-2019 Creatinine mass conc CREATININE SERUMLabRoutinePsoriatic arthritisPsoriatic arthropathy of distal interphalangeal (DIP) jointPsoriatic spondylitisHistory of psoriatic arthritisLong term current use of non-steroidal anti-inflammatories (NSAID)skilled nursing current use of systemic steroidsLong-term current use of high risk medication other than anticoagulantMethotrexate, 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, current useNoncompliancePatient non adherenceVitamin D deficiencyDDD (degenerative [...] starting 11/03/2018 un (more content not included)... 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 Psoriatic spondylitis Psoriasis SAPHO syndrome History of psoriatic arthritis skilled nursing current use of non-steroidal anti-inflammatories (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, senior care, current use Long-term current use of high [...] psoriasis 6 Occurrences starting 10/11/2019 until 09/08/2020 [employer] Comment on above: 6 Occurrences starting 10/11/2019 until 09/08/2020 End: 01-12-2021 CRP [Mass/Vol] C REACTIVE PROTEIN Lab Routi ne Psoriatic arthritis Psoriasis Plaque psoriasis Methotrexate, senior care, current use Long-term current use of high risk medication other than anticoagulant skilled nursing current use of non-steroidal anti-inflammatories (NSAID) History [...] Occurrences starting 01/13/2020 until 01/12/2021, 1 completed [employer] Comment on above: 6 Occurrences starting 01/13/2020 until 01/12/2021, 1 completed End: 01-08-2020 CRP [Mass/Vol] C REACTIVE PROTEIN Lab Routi ne Psoriatic arthritis Psoriatic spondylitis Psoriasis Plaque psoriasis Anemia, unspecified type Methotrexate, senior care, current use Long-term current use of high risk medication other than anticoagulant 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 current use of non-steroidal anti-inflammatories (NSAID) History [...] cervical 6 Occurrences starting 01/04/2019 until 01/08/2020 [employer] Comment on above: 6 Occurrences starting 01/04/2019 until 01/08/2020 End: 07-13-2021 CRP [Mass/Vol] C REACTIVE PROTEIN Lab Routi ne Psoriatic arthritis 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 Psoriatic spondylitis Psoriasis SAPHO syndrome History of psoriatic arthritis skilled nursing current use of non-steroidal anti-inflammatories (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, 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, current use Long-term current use of high [...] Occurrences starting 09/12/2020 until 07/13/2021, 1 completed 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 Psoriasis Anemia, unspecified type 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) skilled nursing current use of 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, senior care, current use Long-term current use of high [...] psoriasis 6 Occurrences starting 05/30/2018 until 05/03/2019 [facility] Work Phone: Comment on above: 6 Occurrences starting 05/30/2018 until 05/03/2019 End: 09-04-2019 CRP mass conc C REACTIVE PROTEINLabRoutinePsoriatic arthritisPsoriatic arthropathy of distal interphalangeal (DIP) jointPsoriatic spondylitisHistory of psoriatic arthritisLong term current use of non-steroidal anti-inflammatories (NSAID)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Long-term current use of high risk medication other than anticoagulantMethotrexate, senior care, current useNoncompliancePatient non adherenceVitamin D deficiencyDDD (degenerative [...] [address] (more content not included)... 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 Psoriasis Anemia, unspecified type skilled nursing current use of non-steroidal anti-inflammatories (NSAID) skilled nursing current use of 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, 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, current use Long-term current use of high [...] psoriasis 6 Occurrences starting 05/30/2018 until 05/03/2019 [facility] Work Phone: Comment on above: 6 Occurrences starting 05/30/2018 until 05/03/2019 End: 09-04-2019 SEDIMENTATION RATE, AUTOMATED SEDIMENTATION RATE, AUTOMATEDLabRoutinePsoriatic arthritisPsoriatic arthropathy of distal interphalangeal (DIP) jointPsoriatic spondylitisHistory of psoriatic arthritisLong term current use of non-steroidal anti-inflammatories (NSAID)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Long-term current use of high risk medication other than anticoagulantMethotrexate, senior care, current useNoncompliancePatient non adherenceVitamin D deficiencyDDD (degenerative disc disease), cervicalImpingement syndrome of both shouldersLumbosacral spondylosis without myelopathyOsteoarthritis of cervical spine, unspecified spinal osteoarthritis complication statusOsteoarthritis of both acromioclavicular jointsOsteoarthritis of both glenohumeral jointsOsteoarthritis of both hands, unspecified osteoarthritis typeOsteoarthritis of both hips, unspecified osteoarthritis typeOsteoarthritis of both wrists, unspecified osteoarthritis typePrimary osteoarthritis of both kneesPlaque psoriasisPsoriasis6 Occurrences starting (more content not included)... 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 Long-term current use of high [...] psoriasis 6 Occurrences starting 10/11/2019 until 09/08/2020 [employer] Comment on above: 6 Occurrences starting 10/11/2019 until 09/08/2020 End: 01-12-2021 SEDIMENTATION RATE, AUTOMATED SEDIMENTATION RATE, AUTOMATED Lab Routine Psoriatic arthritis Psoriasis Plaque psoriasis 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, 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, 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 Long-term current use of high risk medication other than anticoagulant 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) History [...] Occurrences starting 01/13/2020 until 01/12/2021, 1 completed [employer] Comment on above: 6 Occurrences starting 01/13/2020 until 01/12/2021, 1 completed End: 01-08-2020 SEDIMENTATION RATE, AUTOMATED SEDIMENTATION RATE, AUTOMATED Lab Routine Psoriatic arthritis Psoriatic spondylitis Psoriasis Plaque psoriasis Anemia, unspecified type Methotrexate, senior care, current use Long-term current use of high risk medication other than anticoagulant skilled nursing current use of systemic steroids skilled nursing current use of non-steroidal anti-inflammatories (NSAID) History [...] cervical 6 Occurrences starting 01/04/2019 until 01/08/2020 [employer] Comment on above: 6 Occurrences starting 01/04/2019 until 01/08/2020 End: 07-13-2021 SEDIMENTATION RATE, AUTOMATED SEDIMENTATION RATE, AUTOMATED Lab Routine Psoriatic arthritis 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 Psoriatic spondylitis Psoriasis SAPHO syndrome 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, 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, 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 Long-term current use of high [...] Occurrences starting 09/12/2020 until 07/13/2021, 1 completed [employer] Comment on above: 6 Occurrences starting 09/12/2020 until 07/13/2021, 1 completed End: 04-12-2023 SEDIMENTATION RATE, AUTOMATED SEDIMENTATION RATE, AUTOMATED Lab Routine Psoriatic arthritis Psoriatic spondylitis Psoriasis Plaque psoriasis Anemia, unspecified type Methotrexate, senior care, current use Long-term current use of high risk medication other than anticoagulant 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) History [...] Occurrences starting 07/12/2021 until 07/12/2022, 1 completed [employer] Comment on above: Every 8 Weeks for 6 Occurrences starting 07/12/2021 until 07/12/2022, 1 completed End: 01-10-2023 SEDIMENTATION RATE, AUTOMATED SEDIMENTATION RATE, AUTOMATED Lab Routine Psoriatic arthritis 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 Psoriatic spondylitis Plaque psoriasis Psoriasis SAPHO syndrome 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) Long-term current use of high risk medication other than anticoagulant 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, 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, 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 Every 8 Weeks for 6 Occurrences starting 01/10/2022 until 01/10/2023 [employer] Comment on above: Every 8 Weeks for 6 Occurrences starting 01/10/2022 until 01/10/2023 End: 07-26-2023 SEDIMENTATION RATE, AUTOMATED SEDIMENTATION RATE, AUTOMATED Lab Routine Psoriatic arthritis 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 Psoriatic spondylitis Macrocytic anemia Plaque psoriasis Psoriasis SAPHO syndrome History of kidney stones History of psoriatic arthritis skilled nursing current use of non-steroidal anti-inflammatories (NSAID) Long-term current use of high risk medication other than anticoagulant 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, 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, current use Abnormal renal function test Vitamin [...] for 4 Occurrences starting 07/25/2022 until 07/26/2023 [employer] Comment on above: Every 12 Weeks for 4 Occurrences startin g 07/25/2022 until 07/26/2023 End: 01-24-2024 SEDIMENTATION RATE, AUTOMATED SEDIMENTATION RATE, AUTOMATED Lab Routine Psoriatic arthritis 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 Psoriatic spondylitis Plaque psoriasis Psoriasis SAPHO syndrome History of kidney stones History of psoriatic arthritis Long-term current use of high risk medication other than anticoagulant Methotrexate, senior care, current use Vitamin D deficiency DDD (degenerative [...] for 4 Occurrences starting 01/23/2023 until 01/24/2024 [employer] Comment on above: Every 12 Weeks for 4 Occurrences startin 01/23/2023 until 01/24/2024 End: 07-30-2024 SEDIMENTATION RATE, AUTOMATED SEDIMENTATION RATE, AUTOMATED Lab Routine Psoriatic arthritis Primary osteoarthritis of both knees Osteoarthritis of both wrists, unspecified osteoarthritis type Osteoarthritis of both hips, unspecified osteoarthritis type Osteoarthritis of both hands, unspecified osteoarthritis type Osteoarthritis of both glenohumeral joints Osteoarthritis of both acromioclavicular joints Osteoarthritis of cervical spine, unspecified spinal osteoarthritis complication status Lumbosacral spondylosis without myelopathy Impingement syndrome of both shoulders DDD (degenerative disc disease), cervical SAPHO syndrome Macrocytic anemia Psoriasis Plaque psoriasis Hyperchromic anemia Methotrexate, senior care, current use Long-term current use of high risk medication other than anticoagulant History of psoriatic arthritis History of kidney stones Abnormal renal function test Vitamin D deficiency 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 Every 12 Weeks for 4 Occurrences starting 07/31/2023 until 07/30/2024 [employer] Comment on above: Every 12 Weeks for 4 Occurrences startin g 07/31/2023 until 07/30/2024 VITAMIN D, (1,25 DIHYDROXY) VITAMIN D, (1,25 DIHYDROXY) Lab Routine Psoriatic arthritis 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 spondylitis Psoriasis SAPHO syndrome 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, 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, 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 use Long-term current use of high [...] osteoarthritis type Plaque psoriasis 07/13/2020 9:08 AM [facility] Immunizations Immunization Date Immunization Notes Care Provider Ortega kent 09-07-2020 SARS-CoV-2 (COVID-19 ) mRNA BNT-162b2 vax Yakelin Jack [facility] 08-17-2020 SARS-CoV-2 (COVID-19 ) mRNA BNT-162b2 vax Yakelin Jack [facility] 11-15-2019 tetanus toxoid, reduced diphtheria toxoid, and acellular pertussis vaccine, adsorbed Yakelin Jack [facility] NEGATED: Highlighted row has not occurred!02-15-2023 influenza virus vaccine, unspecified formulation Rodrigo Brink [facility] Payers Date Payer Category Payer Unknown [employer] xxxxxxxxxxx 2018-Present [id number] 2018 Unknown [employer] [id number] 2018-Present [id number] 1.2.840.226546.1.13.172.2.7.3. [id number] 2018 Unknown 1.2.840.891108. 1.13.172.2.7.3. 255962.315 1966 Unknown [id number] 2.16.840.1.500316.3.579.2.647 1966 Unknown [id number] 2.16.840.1.891281.3.579.2.983 1966 Unknown [id number] 2.16.840.1.011691.3.579.2.983 1966 Unknown [id number] 2.16.840.1.614212.3.579.2.593 1966 Unknown [id number] 2.16.840.1.639173.3.579.2.593 1966 Unknown [id number] 2.16.840.1.302772.3.579.2.593 1966 Unknown [id number] 2.16.840.1.827863.3.579.2.593 1966 Unknown [id number] 2.16.840.1.551085.3.579.2.593 1966 Unknown [id number] 2.16.840.1.369542.3.579.2.593 1966 Unknown [id number] 2.16.840.1.133131.3.579.2.593 1966 Unknown [id number] 2.16.840.1.426970.3.579.2.593 1966 Unknown [id number] 2.16.840.1.688581.3.579.2.593 1966 Unknown [id number] 2.16.840.1.409537.3.579.2.593 1966 Unknown [id number] 2.16.840.1.751105.3.579.2.593 1966 Unknown [id number] 2.16.840.1.042229.3.579.2.593 1966 Unknown [id number] 2.16.840.1.994226.3.579.2.593 1966 Unknown [id number] 2.16.840.1.588649.3.579.2.593 1966 Unknown [id number] 2.16.840.1.567775.3.579.2.593 1966 Unknown [id number] 2.16.840.1.387800.3.579.2.593 1966 Unknown [id number] 2.16.840.1.488240.3.579.2.593 1966 Unknown [id number] 2.16.840.1.334635.3.579.2.593 1966 Unknown [id number] 2.840.1.089552.3.579.2.593 1966 Unknown [id number] 2.16840.1.444152.3.579.2.593 1966 Unknown [id number] .16840.1.033139.3.579.2.593 1966 Unknown [id number] .16.840.1.189946.3.579.2.593 1966 Unknown [id number] .840.1.958851.3.579.2.983 1966 Unknown [id number] 2.16.840.1.232629.3.579.2.983 1966 Unknown [id number] 2.16.840.1.453216.3.579.2.983 1966 Unknown [id number] 2.16.840.1.428072.3.579.2.983 1966 Unknown [id number] 2.16840.1.217934.3.579.2.983 1966 Unknown [id number] 2.16.840.1.742456.3.579.2.983 1966 Unknown [id number] 2.16.840.1.006865.3.579.2.983 1966 Unknown [id number] 2.16.840.1.439564.3.579.2.727 1966 Unknown [id number] 2.16.840.1.682011.3.579.2.727 1966 Unknown [id number] 2.16.840.1.800359.3.579.2.727 1966 Unknown [id number] 2.16.840.1.123989.3.579.272 1966 Unknown [id number] 2.16.840.1.591200.3.579.2727 1966 Unknown [id number] 2.16.840.1.932610.3.579.2727 1966 Unknown [id number] 2.16.840.1.222415.3.579.2727 1966 Unknown [id number] 2.16.840.1.125720.3.579.27 1966 Unknown [id number] 2.16.840.1.565597.3.579.2727 1966 Unknown [id number] 2.16.840.1.021234.3.579.2727 1966 Unknown [id number] 2.16.840.1.213942.3.579.2727 1966 Unknown [id number] 2.16840.1.203235.3.579.2.727 1959 Unknown [id number] 1959 Unknown [id number] 2.16.840.1.930479.19 Social History Date Type Detail Facility Start: 03-29-2018 End: 10-01-2023 Tobacco smoking status KYIS Former smoker [facility] Work Phone: Start: 1965 Sex Assigned At Not on file O [facility] Work Phone: Start: 03-29-2018 End: 01-10-2022 Tobacco Comment Quit 10/2017 [employer] Start: 09-03-2018 End: 01-23-2023 Alcohol intake No [facility] Start: 05-06-2019 End: 07-31-2023 Alcohol intake Current [facility]dr[facility] (finding[facility] Start: 09-09-2019 End: 01-10-2022 Tobacco use and exposure Never used [facility] [employer] Exposure to SARS-CoV -2 (event) Not sure [facility] History of tobacco use Current smoker [facility] Start: 07-25-2022 End: 01-23-2023 History of Social function [facility] Start: 12-31-2017 Gender identity Identifies as male gender (finding) [facility] Tobacco smoking status Never [facility] Functional Status Date Assessment Result Facility 10-01-2023 Functional Status N/A [facility] Clinical Notes 07-12-2021 to 10-01-2023 Tra Vale Jr., DO - 07/31/2023 9:00 AM EDTAddendum Note - Tra Vale Jr., DO - 07/31/2023 9:00 AM EDTAddendum Note - Tra Vale Jr., DO - 07/31/2023 9:00 AM EDT Note Date & Type Note Facility 10-01-2023 Hospital Discharg e instructions Patient Education 10/01/2023 14:18:46 Kidney Stones, Fukp-rn-Spkm Kidney Stones Kidney stones are rock-like masses that form inside of the kidneys. Kidneys are organs that make pee (urine). A kidney stone may move into other parts of the urinary tract, including: The tubes that connect the kidneys to the bladder (ureters). The bladder. The tube that carries urine out of the body (urethra). Kidney stones can cause very bad pain and can block the flow of pee. The stone usually leaves your body (passes) through your pee. You may need to have a doctor take out the stone. What are the causes? Kidney stones may be caused by: A condition in which certain glands make too much parathyroid hormone (primary hyperparathyroidism). A buildup of a type of crystals in the bladder made of a chemical called uric acid. The body makes uric acid when you eat certain foods. Narrowing (stricture) of one or both of the ureters. A kidney blockage that you were born with. Past surgery on the kidney or the ureters, such as gastric bypass surgery. What increases the risk? You are more likely to develop this condition if: You have had a kidney stone in the past. You have a family history of kidney stones. You do not drink enough water. You eat a diet that is high in protein, salt (sodium), or sugar. You are overweight or very overweight (obese). What are the signs or symptoms? Symptoms of a kidney stone may include: Pain in the side of the belly, right below the ribs (flank pain). Pain usually spreads (radiates) to the groin. Needing to pee often or right away (urgently). Pain when going pee (urinating). Blood in your pee (hematuria). Feeling like you may vomit (nauseous). Vomiting. Fever and chills. How is this treated? Treatment depends on the size, location, and makeup of the kidney stones. The stones will often pass out of the body through peeing. You may need to: Drink more fluid to help pass the stone. In some cases, you may be given fluids through an IV tube put into one of your veins at the hospital. Take medicine for pain. Make changes in your diet to help keep kidney stones from coming back. Sometimes, medical procedures are needed to remove a kidney stone. This may involve: A procedure to break up kidney stones using a beam of light (laser) or shock waves. Surgery to remove the kidney stones. Follow these instructions at home: Medicines Take mujc-cwl-lzpqpeh and prescription medicines only as told by your doctor. Ask your doctor if the medicine prescribed to you requires you to avoid driving or using heavy machinery. Eating and drinking Drink enough fluid to keep your pee pale yellow. You may be told to drink at least 8 10 glasses of water each day. This will help you pass the stone. If told by your doctor, change your diet. This may include: ?Limiting how much salt you eat. ?Eating more fruits and vegetables. ?Limiting how much meat, poultry, fish, and eggs you eat. Follow instructions from your doctor about eating or drinking restrictions. General instructions Collect pee samples as told by your doctor. You may need to collect a pee sample: ?24 hours after a stone comes out. ?8 12 weeks after a stone comes out, and every 6 12 months after that. Strain your pee every time you pee (urinate), for as long as told. Use the strainer that your doctor recommends. Do not throw out the stone. Keep it so that it can be tested by your doctor. Keep all follow-up visits as told by your doctor. This is important. You may need follow-up tests. How is this prevented? To prevent another kidney stone: Drink enough fluid to keep your pee pale yellow. This is the best way to prevent kidney stones. Eat healthy foods. Avoid certain foods as told by your doctor. You may be told to eat less protein. Stay at a healthy weight. Where to find more information National Kidney Foundation (NKF): www.kidney.org Urology Care Foundation (UCF): www.urologyhealth.org Contact a doctor if: You have pain that gets worse or does not get better with medicine. Get help right away if: You have a fever or chills. You get very bad pain. You get new pain in your belly (abdomen). You pass out (faint). You cannot pee. Summary Kidney stones are rock-like masses that form inside of the kidneys. Kidney stones can cause very bad pain and can block the flow of pee. The stones will often pass out of the body through peeing. Drink enough fluid to keep your pee pale yellow. This information is not intended to replace advice given to you by your health care provider. Make sure you discuss any questions you have with your health care provider. Document Revised: 11/21/2021 Document Reviewed: 11/21/2021 [employer] Patient Education 2022 [employer]. Follow Up Care 2023 13:55:17 With:BABATUNDE MASON, Yusuf Cortés, URL Address: [facility] [address] , [place] [address]- [phone] When: Unknown [facility] Note Urology Office/Clini c Note Chief Complaint Referral *Kidney Stones HPI Staff New pt referred by Dr Rodrigo Brink for kidney stones. Never seen in our office before (verified on DA). Last Image (pertaining to Kidneys) KUB 10/23/21 Denies more recent imaging. Last PSA (per [facility]) 02/15/21- 0.92 Has had Kidney Stones for yrs. Last stone passed about 1wk ago. At that time lower back pain that radiated to lower groin. Denies Hx of surgical intervention. Denies current stone sx. Denies blood in urine. Occasional pressure when voiding, with hesitancy. Pt interested in learning how to prevent stones in the future. History of Present Illness Tests reviewed: reviewed UA, referral records, KUB, PSA I have reviewed the previous health record information and history for this patient from external providers. I have reviewed and verified the staff HPI to be accurate for this encounter. Review of Systems PHQ Score Initial Depression Screen Score: 0 SCORE ROS - Provider Constitutional: denies weight loss, denies hot flashes. Eyes: denies eye problems. Gastrointestinal: denies nausea, denies vomiting. Cardiovascular: denies chest pain or angina. Integumentary: no dryness Musculoskeletal: denies musculoskeletal symptoms. ENMT: denies otolaryngeal symptoms. Respiratory: no shortness of breath. Heme/Lymph: denies easy bleeding tendency, denies easy bruising tendency. Psychiatric: no confusion, no anxiety. Genitourinary: See HPI. Physical Exam Vitals & Measurements HR: 67(Peripheral) RR: 16 BP: 118/79 HT: 71 in HT: 180 cm WT: 104.7 kg WT: 230.34 lb BMI: 32.31 General Appearance: alert, no distress, well nourished, well developed male. Genitourinary: normal scrotum, normal testes, normal urethra, normal epididymis, normal vas deferens/spermatic cord. Flank Pain: moderate bilaterally. Bladder: nonpalpable. Assessment/Plan Glenda is a 58 yo male new pt referred by Dr. Rodrigo Brink for kidney stones. 1. Kidney stones (N20.0: Calculus of kidney) KUB 10/23/21 TBH - No calcifications noted in RLQ. Couple faint radiodensities overlying both renal outlines, may represent bowel content or renal calculi. Has had >5 stone episodes. Typically has pressure at tip of penis with stone passage. No hx of surgical intervention, has never seen an urologist. Last stone passed 1wk ago, had lower back pain that radiated to lower groin. Denies going to ER. Still has some pressure at tip of penis since passage of recent stone. Denies significant relief. UA today shows small blood. Advised pt he may be passing another stone. Recommended pt to get a CT scan to evaluate stone burden. Also recommended pt to start Tamsulosin to help with urinary flow and stone passage. Possible SEs discussed. Pt wishes to proceed. -Start Tamsulosin 0.4mg bid. Rx sent to [facility]. -Schedule CT AP wo con. Will call pt with results. -Consider metabolic workup in future 2. Screening PSA (prostate specific antigen) (Z12.5: Encounter for screening for malignant neoplasm of prostate) Last PSA 02/15/21 - 0.92. Unable to find more recent level on record. -Obtain repeat PSA level soon Follow-up With When Contact Information BABAUTNDE MASON, Yusuf Cortés, URL [facility] [address], [place] [phone] Additional Instructions: pt to be called with CT results Patient Education Kidney Stones, Cjjh-pb-Lyqt Becca Siddiqi, personally scribed for Dr. Pollard on 10/01/2023 14:19:31. . Documentation recorded by the carineibBecca sharma, accurately reflects the services(s) I performed and decisions made by me. Authenticated by Dr. Pollard on 10/01/2023 14:21:17. Problem List/Past Medical History Ongoing Allergic rhinitis Anemia Anxiety Atherosclerotic heart disease of [place] coronary artery with angina pectoris Contusion COVID-19 Essential hypertension Eustachian tube dysfunction Fatigue Kidney stones Macrocytosis Obesity due to excess calories Psoriasis arthropathica Screening PSA (prostate specific antigen) Sleep disorder Spasm of back muscles Stage 3a chronic kidney disease (CKD) Syncope Vitamin D deficiency Historical COPD (Chronic Obstructive Pulmonary Disease) Assessment Test scale HTN - Hypertension Nephrolithiasis Psoriasis Psoriatic arthritis Procedure/Surgical History Appendectomy, CABG (Coronary artery bypass grafting) planned, Inguinal hernia. Medications #####, 0 amitriptyline 25 mg Tab, See Instructions, 5 refills amLODIPine 5 mg Tab, 5 mg= 1 tab(s), Oral, Daily, 1 refills bisoprolol-hydrochlorothiazide 10 mg-6.25 mg Tab, 1 tab(s), Oral, Daily, 1 refills buPROPion 300 mg/24 hours ER Tab, 300 mg= 1 tab(s), Oral, q24hr, 1 refills cetirizine 10 mg Tab, See Instructions, 1 refills cyclobenzaprine 10 mg Tab, 10 mg= 1 tab(s), Oral, TID, PRN gabapentin 300 mg Cap, See Instructions ipratropium Nasal 0.03% [place], See In (more content not included)... [facility] Comment on above: Result Comment: Elec tronically Signed By: Yusuf POLLARD MD\.br\Date and Time Signed: 10/01/23 14:21 EDT\.br\Electronically Co-Signed By: Becca Patel\.br\Date and Time Co-Signed: 10/01/23 14:19 EDT 10-01-2023 Note Patient Education Urology Kidney Stones Kidney stones are rock-like masses that form inside of the kidneys. Kidneys are organs that make pee (urine). A kidney stone may move into other parts of the urinary tract, including: ? The tubes that connect the kidneys to the bladder (ureters). ? The bladder. ? The tube that carries urine out of the body (urethra). Kidney stones can cause very bad pain and can block the flow of pee. The stone usually leaves your body (passes) through your pee. You may need to have a doctor take out the stone. What are the causes? Kidney stones may be caused by: ? A condition in which certain glands make too much parathyroid hormone (primary hyperparathyroidism). ? A buildup of a type of crystals in the bladder made of a chemical called uric acid. The body makes uric acid when you eat certain foods. ? Narrowing (stricture) of one or both of the ureters. ? A kidney blockage that you were born with. ? Past surgery on the kidney or the ureters, such as gastric bypass surgery. What increases the risk? You are more likely to develop this condition if: ? You have had a kidney stone in the past. ? You have a family history of kidney stones. ? You do not drink enough water. ? You eat a diet that is high in protein, salt (sodium), or sugar. ? You are overweight or very overweight (obese). What are the signs or symptoms? Symptoms of a kidney stone may include: ? Pain in the side of the belly, right below the ribs (flank pain). Pain usually spreads (radiates) to the groin. ? Needing to pee often or right away (urgently). ? Pain when going pee (urinating). ? Blood in your pee (hematuria). ? Feeling like you may vomit (nauseous). ? Vomiting. ? Fever and chills. How is this treated? Treatment depends on the size, location, and makeup of the kidney stones. The stones will often pass out of the body through peeing. You may need to: ? Drink more fluid to help pass the stone. In some cases, you may be given fluids through an IV tube put into one of your veins at the hospital. ? Take medicine for pain. ? Make changes in your diet to help keep kidney stones from coming back. Sometimes, medical procedures are needed to remove a kidney stone. This may involve: ? A procedure to break up kidney stones using a beam of light (laser) or shock waves. ? Surgery to remove the kidney stones. Follow these instructions at home: Medicines ? Take zoya-cpo-ptoxbvk and prescription medicines only as told by your doctor. ? Ask your doctor if the medicine prescribed to you requires you to avoid driving or using heavy machinery. Eating and drinking ? Drink enough fluid to keep your pee pale yellow. You may be told to drink at least 8?10 glasses of water each day. This will help you pass the stone. ? If told by your doctor, change your diet. This may include: ? Limiting how much salt you eat. ? Eating more fruits and vegetables. ? Limiting how much meat, poultry, fish, and eggs you eat. ? Follow instructions from your doctor about eating or drinking restrictions. General instructions ? Collect pee samples as told by your doctor. You may need to collect a pee sample: ? 24 hours after a stone comes out. ? 8?12 weeks after a stone comes out, and every 6?12 months after that. ? Strain your pee every time you pee (urinate), for as long as told. Use the strainer that your doctor recommends. ? Do not throw out the stone. Keep it so that it can be tested by your doctor. ? Keep all follow-up visits as told by your doctor. This is important. You may need follow-up tests. How is this prevented? To prevent another kidney stone: ? Drink enough fluid to keep your pee pale yellow. This is the best way to prevent kidney stones. ? Eat healthy foods. ? Avoid certain foods as told by your doctor. You may be told to eat less protein. ? Stay at a healthy weight. Where to find more information ? National Kidney Foundation (NKF): www.kidney.org ? Urology Care Foundation (UCF): www.urologyhealth.org Contact a doctor if: ? You have pain that gets worse or does not get better with medicine. Get help right away if: ? You have a fever or chills. ? You get very bad pain. ? You get new pain in your belly (abdomen). ? You pass out (faint). ? You cannot pee. Summary ? Kidney stones are rock-like masses that form inside of the kidneys. ? Kidney stones can cause very bad pain and can block the flow of pee. ? The stones will often pass out of the body through peeing. ? Drink enough fluid to keep your pee pale yellow. This information is not intended to replace advice given to you by your health care provider. Make sure you discuss any questions you have with your health care provider. Document Revised: 11/21/2021 Document Reviewed: 11/21/2021 [employer] Patient Education ? 2022 [employer]. [facility] 08-01-2023 Note PROCEDURE: 48-hour H olter monitor REFERRING PHYSICIAN: Rodrigo Brink M.D. INDICATIONS: Syncope. PROCEDURE DETAILS: The patient was recorded for two days capturing an average heart rate of 76 beats per minute, minimum heart rate of 66 beats per minute, and maximum heart rate of 119 beats per minute. There was one ventricular ectopic beat, 15 supraventricular ectopic beats. There was no atrial fibrillation and no heart block. CONCLUSIONS: Normal 48-hour Holter monitor. READ BY: Anton Acevedo M.D. ca Dictated: 07/31/2023 [id number] Transcribed: 07/31/2023 cc:Rodrigo Brink M.D. [facility] Comment on above: Result Comment: Elec tronically Signed By: Kristina MASON, Anton Enriquez\.br\Date and Time Signed: 08/01/23 10:55 EDT 07-31-2023 History of Presen t illness Narrative Subjective History of Present Illness Patient states he seen a business management analyst Dr. Fawad Driver but they did not [...] (Adult-Cognitively Intact) DVPRS: Rest: 9- severe pain DVPRS: Activity: 9- severe pain Select Pain Scale: DVPRS (Defense and Veterans Pain Rating Scale) (Adult-Cognitively Intact) Pain Frequency: constant Pain Quality: aching. Total time spent in this encounter was 30 minutes. Patient is being evaluated for an unstable chronic illness that increase morbidity and mortality. Patient is here today for his 6 Month Follow-up. Patient states he has been in a lot of pain since his last appointment, his UYEN knee and neck are the worse. Some kidney stone problems. Weakness is yes. Still bruising easy. Muscle spasms are worse. Legs and knees and hands and arms. Joint pain is yes. Neck pain is yes. Psoriasis is the same. I have been told that patient is on a high risk medication as it either treats cancer or requires blood work every 2-3 months. Taltz is once a month Objective Review of Systems Constitutional: Positive for unexpected weight change. Wt loss -unintentional: continues HENT: Negative. Eyes: Negative. Respiratory: Negative. Cardiovascular: Negative. Gastrointestinal: S/P hernia surgery Endocrine: Negative. Genitourinary: Kidney stones Musculoskeletal: Positive for arthralgias, myalgias, neck pain and neck stiffness. Muscle spasms Skin: psoriasis Allergic/Immunologic: Negative. Neurological: Positive for weakness. Hematological: Bruises/bleeds easily. Vitals: There were no vitals taken for this visit. Physical Exam Vitals and nursing note reviewed. [...] motion. Left elbow: Decreased range of motion. Tenderness present. Right forearm: Normal. Left forearm: Normal. Right wrist: Crepitus present. Decreased range of motion. Left wrist: Decreased range of motion. Right hand: Decreased range of motion. Decreased strength. Left hand: Decreased strength. Cervical back: Neck supple. Right upper leg: Normal. Left upper leg: Normal. Right knee: Decreased range of motion. Tenderness present. Left knee: Decreased range of motion. Tenderness present. Right lower leg: Normal. Left lower leg: Normal. Right ankle: Decreased range of motion. Left [...] is intact. Motor: Weakness present. Comments: Decreased glass engraver strength both hands Neurological Exam Mental Status Alert. Oriented to person, place, and time. Cranial Nerves CN III, IV, : Extraocular movements intact bilaterally. Extraocular movements intact bilaterally. Pupils equal round and reactive to light bilaterally. Sensory Normal sensation. Decreased glass engraver strength both hands. Assessment and Plan Encounter Diagnoses Name Primary? Psoriatic arthritis Yes Primary osteoarthritis of both knees Osteoarthritis of both wrists, unspecified osteoarthritis type Osteoarthritis of both hips, unspecified osteoarthritis type Osteoarthritis of both hands, unspecified osteoarthritis type Osteoarthritis of both glenohumeral joints Osteoarthritis of both acromioclavicular joints Osteoarthritis of cervical spine, unspecified spinal osteoarthritis complication status Lumbosacral spondylosis without myelopathy Impingement syndrome of both shoulders DDD (degenerative disc disease), cervical SAPHO syndrome Macrocytic anemia Psoriasis Plaque psoriasis Hyperchromic anemia Methotrexate, senior care, current use Long-term current use of high risk medication other than anticoagulant History of psoriatic arthritis History of kidney stones Abnormal renal function test Vitamin D deficiency Psoriatic spondylitis Psoriatic arthropathy of distal interphalangeal [...] patient. 3. Hgb was low at 12.7 and still is at 13.0 4. GRAVITY METER OPERATOR was elevated at 1.53 with GFR of 47 and still is at 1.51 with GFR of 48 5. Allergy to Humira - makes the psoriasis worse 6. Allergy to Cosentyx - makes the psoriasis worse 7. Rx given for Folic acid 1 mg 1 pill a day 8 Enbrel did not help 9. Remicade did not help 10. Methotrexae did not help 11. Otezla did not help 12. Chronic Pain Management F/U per Dr. Solano in [place]. 13. TB test was negative 14. Negative [...] healed. 18. ESR was normal at 9 and still is at 4 19. Monitor Vit D level every 6 -12 months if remains low rec: eval by endo 20. CRP was negative at < 0.2 and still is at < 0.50 21. Patient declines referral to ortho 22. At patient's request will set up with sports medicine - will try to do that again for the patient but patient declines again 23. Lab on or about 10/15/2023 and every 3 months thereafter 24. Patient stopped Prednisone due to swelling and headaches and wt gain. 07/10/2022 25. Derm F/U per Dr. Bear Antoine and Dr. Bran 26. Repeat Vit D level on or about 01/15/2024 with copy to PCP 27. Sulindac stopped due to renal insuff 28. Tatz per dermatology 29. 90 day supply on medications. 30. Urology Follow-up per [place] 31. Follow-up with [place] in 6 months documented in this encounter [facility] 07-31-2023 Miscellaneous Notes Addended by: TRA VALE on: 07/31/2023 09:22 AM Modules accepted: Orders documented in this encounter [facility] 07-31-2023 Note Addended by: TRA VILLALPANDO on: 07/31/2023 09:22 AM Modules accepted: Orders [facility] 01-23-2023 History of Presen t illness Narrative Subjective History of Present Illness Patient states he seen a business management analyst Dr. Fawad Driver but they did not [...] is intact. Motor: Weakness present. Comments: Decreased glass engraver strength both hands Neurological Exam Mental Status Alert. Oriented to person, place, and time. Cranial Nerves CN III, IV, : Extraocular movements intact bilaterally. Extraocular movements intact bilaterally. Pupils equal round and reactive to light bilaterally. Sensory Normal sensation. Decreased glass engraver strength both hands. Assessment and Plan Encounter Diagnoses Name Primary? 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 Hgb was low at 12.7 4. GRAVITY METER OPERATOR was elevated at 1.53 with GFR of 47 5. Allergy to Humira - makes the psoriasis worse 6. Allergy to Cosentyx - makes the psoriasis worse 7. Call if need Rx's 8 Enbrel did not help 9. Remicade did not help 10. Methotrexae did not help 11. Otezla did not help 12. Chronic Pain Management F/U per Dr. Solano in [place]. 13. TB test was negative 14. Negative [...] Tatz per dermatology documented in this encounter [facility] 07-25-2022 History of Presen t illness Narrative History of Present Illness Patient states he seen a business management analyst Dr. Fawad Driver but they did not [...] is intact. Motor: Weakness present. Comments: Decreased glass engraver strength both hands Psychiatric: Mood and Affect: Mood normal. Behavior: Behavior normal. Thought Content: Thought content normal. Judgment: Judgment normal. Neurological Exam Mental Status Alert. Oriented to person, place, and time. Cranial Nerves CN III, IV, : Extraocular movements intact bilaterally. Extraocular movements intact bilaterally. Pupils equal round and reactive to light bilaterally. Sensory Normal sensation. Decreased glass engraver strength both hands. Assessment and Plan Encounter Diagnoses Name Primary? 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 Hgb is low at 12.7 4. GRAVITY METER OPERATOR is elevated at 1.53 with GFR of [...] Pain Management F/U per Dr. Solano in [place]. 13. TB test was negative 14. Negative [...] copy to PCP documented in this encounter [facility] 06-17-2022 Evaluation note Encounter Date Diagnosis Assessment [...] your family doctor for recheck this week. [facility] Other 03-14-2023 NoteCONSULTATION CONSULTATION DATE: 06/13/2022 FOLLOW [...] asked him to decrease the use of Glenelg to 45 pills to last him one month's time. He just recently had a prescription filled for Glenelg 60 pills. I have asked him to make this last for six weeks. We will have him return to the office in six weeks' time or sooner if needed.[id number] NoteCONSULTATION CONSULTATION DATE: 02/16/2022 HISTORY OF PRESENT ILLNESS: This is a pleasant, 56-year-old gentleman returning to the clinic for a three month follow up for chronic neck and lower back pain. The patient had radiofrequency ablations to his cervical area in August of 2021. Patient has had pain improvement since then, but does have residual tightness. Medications currently include diclofenac 75 mg b.i.d., Glenelg 5/325 b.i.d., gabapentin 300 mg b.i.d. and [...] or injuries. 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 Fawad Driver but they did not help treat is psoriasis. DX with PsA 2011. Humira and cosentyx made the psoriasis worse and Methotrexate and Enbrel and Remicade and otezla quit working. Stelara started 05/2018. Stela has been helping and not bothering the patient. Angelina stopped by derm 04/2021. Taltz started by [...] his 6 Month F/U. Patient states his Manual Winder stopped the Stelara and started Taltz. Patient [...] is intact. Motor: Weakness present. Comments: Decreased glass engraver strength both hands Psychiatric: Mood and Affect: Mood normal. Behavior: Behavior normal. Thought Content: Thought content normal. Judgment: Judgment normal. Neurological Exam Mental Status Alert. Oriented to person, place, and time. Cranial Nerves CN III, IV, : Extraocular movements intact bilaterally. Extraocular movements intact bilaterally.Pupils equal round and reactive to light bilaterally. Sensory Normal sensation. Decreased glass engraver strength both hands. Assessment and Plan Encounter Diagnoses Name Primary? 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 Time was spent with [...] Pain Management F/U per Dr. Solano in [place]. 13. TB test was negative 14. Negative [...] me in 6 months [facility] NoteCONSULTATION PROCEDURE DATE: 11/24/2021 PROCEDURE NOTE PREOPERATIVE [...] will be followed up in the office.[id number] NoteCONSULTATION CONSULTATION DATE: 10/27/2021 HISTORY OF PRESENT [...] a menthol heat rub. Current medications include Glenelg 5/325 b.i.d., diclofenac 75 mg b.i.d., gabapentin [...] Patient agrees with this plan of care.[facility] [id number] History of Present illness Narrative* Tra Vasquez Ela Vidales, DO - 07/12/2021 8:30 AM EDT History of Present Illness Patient states he seen a business management analyst Dr. Fawad Driver but they did not help treat is psoriasis. DX with PsA 2011. Humira and cosentyx made the psoriasis worse and Methotrexate and Enbrel and Remicade and otezla quit working. Angelina started 05/2018. Angelina has [...] is intact. Motor: Weakness present. Comments: Decreased glass engraver strength both hands Psychiatric: Mood and Affect: Mood normal. Behavior: Behavior normal. Thought Content: Thought content normal. Judgment: Judgment normal. Neurological Exam Mental Status Alert. Oriented to person, place, and time. Cranial Nerves CN III, IV, : Extraocular movements intact bilaterally. Extraocular movements intact bilaterally.Pupils equal round and reactive to light bilaterally. Sensory Normal sensation. Decreased glass engraver strength both hands. Assessment and Plan Encounter Diagnoses Name Primary? Psoriatic arthritis Psoriatic spondylitis Psoriasis Plaque psoriasis Anemia, unspecified type Methotrexate, 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, current use Long-term current use of high risk medication other than anticoagulant skilled nursing current use of systemic steroids skilled nursing current use of non-steroidal anti-inflammatories (NSAID) History [...] Pain Management F/U per Dr. Solano in [place]. 13. TB test was negative 14. Negative [...] me in 6 months [facility] Future Appointments Appointment Date:11/15/2022 04:40:00 PM Scheduled Provider:Rodrigo Brink MD Location:[facility] Future Appointments Appointment Date:02/15/2023 11:20:00 AM Scheduled Provider:Rodrigo Brink MD Location:[facility] Appointment Type: Open Diagnostic Tests Pending * Comprehensive Metabolic Panel 11/15/22 * Vitamin B12 Level 11/15/22 * Folate [facility] Future Appointments Appointment Date:08/16/2023 01:15:00 PM Scheduled Provider:Rodrigo Brink MD Location:[facility] Appointment Type:FM Open Appointment Date:10/01/2023 01:00:00 PM Scheduled Provider:Yusuf POLLARD MD Location:[facility] Appointment Type:URO New Patient Future Scheduled Tests Radiology* Echo Transthoracic Complete 05/17/23 [facility] Future Appointments Appointment Date:03/20/2024 10:00:00 AM Scheduled Provider:Rodrigo Brink MD Location:[facility] Appointment Type: Open Diagnostic Tests Pending * PSA Screen, Total 10/01/23 Future Scheduled Tests Radiology* Echo Transthoracic Complete 05/17/23 [facility] evaluation note* Diagnosis 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 Psoriatic arthritis Psoriatic arthropathy Psoriatic spondylitis Psoriatic arthropathy Psoriasis Other psoriasis Plaque psoriasis Other psoriasis Anemia, unspecified type Methotrexate, 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, current use Encounter for long-term (current) use of other medications Long-term current use of high risk medication other than anticoagulant 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 Encounter for long-term (current) use of 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) Encounter [...] cervical intervertebral disc [facility] Diagnosis Psoriatic arthritis- Primary Psoriatic arthropathy 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 spondylitis Psoriatic arthropathy Plaque psoriasis Other psoriasis Psoriasis Other psoriasis SAPHO syndrome Traumatic spondylopathy History of psoriatic arthritis Personal history of 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) Encounter for long-term (current) use of non-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-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 Long-term current use of high risk medication other than anticoagulant Methotrexate, senior care, current use Encounter for long-term (current) use of other medications Vitamin D deficiency Unspecified vitamin D deficiency documented [facility]* Diagnosis Psoriatic arthritis- Primary Psoriatic arthropathy 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 spondylitis Psoriatic arthropathy Macrocytic anemia Unspecified deficiency anemia Plaque psoriasis Other psoriasis Psoriasis Other psoriasis SAPHO syndrome Traumatic spondylopathy History of kidney stones Personal history of urinary calculi History of psoriatic arthritis Personal history of arthritis skilled nursing current use of non-steroidal anti-inflammatories (NSAID) Encounter for long-term (current) use of non-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-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 Long-term current use of high risk medication other than anticoagulant Methotrexate, 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, current use Encounter for long-term (current) use [...] osteoarthrosis, lower leg [facility]* Diagnosis Psoriatic arthritis- Primary Psoriatic arthropathy 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 spondylitis Psoriatic arthropathy Plaque psoriasis Other psoriasis Psoriasis Other psoriasis SAPHO syndrome Traumatic spondylopathy History of kidney stones Personal history of urinary calculi History of psoriatic arthritis Personal history of arthritis Long-term current use of high risk medication other than anticoagulant Methotrexate, senior care, current use Encounter for long-term (current) use [...] osteoarthrosis, lower leg [facility]* Diagnosis Psoriatic arthritis- Primary Psoriatic arthropathy Primary osteoarthritis of both knees Primary localized osteoarthrosis, lower leg Osteoarthritis of both wrists, unspecified osteoarthritis type Osteoarthritis of both hips, unspecified osteoarthritis type Osteoarthritis of both hands, unspecified osteoarthritis type Osteoarthritis of both glenohumeral joints Osteoarthritis of both acromioclavicular joints Osteoarthritis of cervical spine, unspecified spinal osteoarthritis complication status Lumbosacral spondylosis without myelopathy Impingement syndrome of both shoulders Other affections of shoulder region, not elsewhere classified DDD (degenerative disc disease), cervical Degeneration of cervical intervertebral disc SAPHO syndrome Traumatic spondylopathy Macrocytic anemia Unspecified deficiency anemia Psoriasis Other psoriasis Plaque psoriasis Other psoriasis Hyperchromic anemia Anemia, unspecified Methotrexate, senior care, current use Encounter for long-term (current) use of other medications Long-term current use of high risk medication other than anticoagulant History of psoriatic arthritis Personal history of arthritis History of kidney stones Personal history of urinary calculi Abnormal renal function test Nonspecific abnormal results of kidney function study Vitamin D deficiency Unspecified vitamin D deficiency Psoriatic spondylitis Psoriatic arthropathy 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 [facility] N[facility] - Reported* Type Description Date Medical History psoriasis [facility] eduPad Other Hospital course Narrative No data available for this section [facility] No data available for this section [facility] No data available for this section [facility] Reason for Referral Status Reason Specialty Diagnoses / Procedures Re ferred By Contact Referred To Contact New Request Multispecialty Diagnoses Psoriatic arthritis 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 Psoriasis Fatigue, unspecified type 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) skilled nursing current use of 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, senior care, current use Long-term current use of high risk medication other than anticoagulant Lumbosacral spondylosis without myelopathy Disorder of bone and cartilage Plaque psoriasis Cervicalgia Dorsalgia Chronic pain of both shoulders Bilateral elbow joint pain Bilateral wrist pain Bilateral hand pain Chronic pain of both knees Tra Vale Jr., DO [address] [place], [place] [id number] Status Reason Specialty Diagnoses / Procedures Referred By Contact Referred To Contact Pending Review Diagnoses Vitamin D deficiency Tra Vale Jr., DO [address] [id number] Status Reason Specialty Diagnoses / Procedures Re ferred By Contact Referred To Contact New Request Sports Ortho and Primary Care Sports Diagnoses Psoriatic arthritis 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 Psoriasis Anemia, unspecified type skilled nursing current use of non-steroidal anti-inflammatories (NSAID) skilled nursing current use of 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, senior care, current use Long-term current use of high [...] Plaque psoriasis Tra Vale Jr., DO [address] [id number] Status Reason Specialty Diagnoses / Procedures Re ferred By Contact Referred To Contact New Request Occupational Therapy Diagnoses Psoriatic arthritis 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, 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, current use Long-term current use of high [...] Plaque psoriasis Tra Vale Jr., DO [address] [place] [address] Status Reason Specialty Diagnoses / Procedures Re ferred By Contact Referred To Contact Closed Diagnoses Psoriatic arthritis Psoriatic spondylitis Psoriasis Plaque psoriasis Anemia, unspecified type Methotrexate, senior care, current use Long-term current use of high risk medication other than anticoagulant skilled nursing current use of systemic steroids skilled nursing current use of non-steroidal anti-inflammatories (NSAID) History [...] disease), cervical Tra Vale Jr., DO [address] [place] [address] History of Present Illness * Tra Vale [...] Luz. Patient states he recently moved to [place] from [place]. Patient was seeing a Manager Sql and Manual Winder there for his psorasis and PsA. Patient states he seen a business management analyst Dr. Fawad Driver but they did not [...] negative Romberg sign. Gait abnormal. Cane. 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 History of Present Illness Patient states he seen a business management analyst Dr. Fawad Driver but they did not [...] negative Romberg sign. Gait abnormal. Cane. 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 Fawad Driver but they did not help treat is psoriasis. DX with PsA 2011. Humira and cosentyx made the psoriasis worse and Methotrexate and Enbrel and Remicade and otezla made quit working. Stelara started 05/2018. Stelara is helping and not bothering the patient. Presence of Pain: complains of pain/discomfort (09/03/18 1131), Pain Location: (Everywhere) (09/03/18 1131), Select Pain Scale: DVPRS (Defense and Veterans Pain Rating Scale) (Adult-Cognitively Intact) (09/03/18 1131), DVPRS: Rest: 10- severe pain (09/03/18 1131), DVPRS: Activity: 10- severe pain (09/03/18 1131), Select Pain Scale: DVPRS (Defense and Veterans Pain Rating Scale) (Adult-Cognitively Intact) (09/03/18 1131), Pain Duration: 4 Month F/U (09/03/18 113), Pain Frequency: constant (09/03/18 1131), Pain Quality: aching (09/03/18 113). Due to [...] Pain Management F/U per Dr. Solano in [place]. 15. Disability forms filled out for patient [...] Present Illness Patient states he seen a business management analyst Dr. Fawad Driver but they did not [...] present. Gait: Gait abnormal. Comments: Cane. 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 Solano in [place]. 15. TB test was negative 16. Negative [...] Present Illness Patient states he seen a business management analyst Dr. Fawad Driver but they did not [...] present. Gait: Gait abnormal. Comments: Cane. 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 Solano in [place]. 15. TB test was negative 16. Negative [...] Present Illness Patient states he seen a business management analyst Dr. Fawad Driver but they did not [...] last appointment. 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 Motor: Weakness present. Comments: Decreased glass engraver strength both hands Psychiatric: Mood and Affect: Mood normal. Behavior: Behavior normal. Thought Content: Thought content normal. Judgment: Judgment normal. Neurologic Exam Mental Status Oriented to person, place, and time. Cranial Nerves CN III, IV, Pupils are equal, round, and reactive to light. Extraocular motions are normal. Assessment and Plan Encounter Diagnoses Name Primary? Psoriatic arthritis Yes Psoriasis Plaque psoriasis Methotrexate, senior care, current use Long-term current use of high risk medication other than anticoagulant skilled nursing current use of non-steroidal anti-inflammatories (NSAID) History [...] about 02/11/2020 with copy to PCP 4. 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 Solano in [place]. 15. TB test was negative 16. Negative [...] Present Illness Patient states he seen a business management analyst Dr. Fawad Driver but they did not help treat is psoriasis. DX with PsA 2011. Humira and cosentyx made the psoriasis worse and Methotrexate and Enbrel and Remicade and otezla made quit working. Raghavlara started 05/2018. Angelina has been helping and [...] Psoriasis Plaque psoriasis Anemia, unspecified type Methotrexate, senior care, current use Long-term current use of high risk medication other than anticoagulant skilled nursing current use of systemic steroids skilled nursing current use of non-steroidal anti-inflammatories (NSAID) History [...] Pain Management F/U per Dr. Solano in [place]. 15. F/U with me in 4 months [...] Present Illness Patient states he seen a business management analyst Dr. Fawad Driver but they did not [...] him. Patient states he has seen a business management analyst Shai and she recommends Taltz instead of [...] is intact. Motor: Weakness present. 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 3. Call if need Rx's 4. GRAVITY METER OPERATOR was elevated at 1.34 with GFR of [...] Pain Management F/U per Dr. Solano in [place]. 15. TB test was negative 16. Negative [...] 28. 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 sys temic steroids Encounter for long-term (current) use of steroids Methotrexate, senior care, cur rent use Encounter for long-term (current) [...] spondylopathy Psoriasis Other psoriasis Anemia, unspecified type 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) Encounter for long-term (current) use of non-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-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 skilled nursing current use of systemic steroids Encounter for long-term (current) use of steroids Methotrexate, senior care, current use Encounter for long-term (current) use [...] spondylopathy Psoriasis Other psoriasis Anemia, unspecified type 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) Encounter for long-term (current) use of non-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-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 Encounter for long-term (current) use of steroids 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, 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, current use Encounter for long-term (current) use [...] spondylopathy Psoriasis Other psoriasis Anemia, unspecified type skilled nursing current use of non-steroidal anti-inflammatories (NSAID) Encounter for long-term (current) use of non-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-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 skilled nursing current use of systemic steroids Encounter for long-term (current) use of steroids 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, 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, current use Encounter for long-term (current) use [...] of psoriatic arthritis Personal history of arthritis skilled nursing current use of non-steroidal anti-inflammatories (NSAID) Encounter for long-term (current) use of non-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-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 skilled nursing current use of systemic steroids Encounter for long-term (current) use of steroids Long-term current use of high risk medication other than anticoagulant Methotrexate, 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, current use Encounter for long-term (current) use [...] of psoriatic arthritis Personal history of 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) Encounter for long-term (current) use of non-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-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 skilled nursing current use of systemic steroids Encounter for long-term (current) use of steroids Long-term current use of high risk medication other than anticoagulant Methotrexate, 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, current use Encounter for long-term (current) use [...] of psoriatic arthritis Personal history of 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) Encounter for long-term (current) use of non-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-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 Methotrexate, senior care, current use Encounter for long-term (current) use [...] Other psoriasis Plaque psoriasis Other psoriasis Methotrexate, senior care, current use Encounter for long-term (current) use of other medications Long-term current use of high risk medication other than anticoagulant 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) Encounter [...] psoriasis Other psoriasis Anemia, unspecified type Methotrexate, 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, current use Encounter for long-term (current) use of other medications Long-term current use of high risk medication other than anticoagulant skilled nursing current use of systemic steroids Encounter for long-term (current) use of steroids skilled nursing current use of non-steroidal anti-inflammatories (NSAID) Encounter [...] psoriasis Other psoriasis Anemia, unspecified type Methotrexate, senior care, current use Encounter for long-term (current) use of other medications Long-term current use of high risk medication other than anticoagulant skilled nursing current use of systemic steroids Encounter for long-term (current) use of 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 Patient states he recently moved to [place] from [place]. Patient was seeing a Manager Sql and Manual Winder there for his psorasis and PsA. Patient states he seen a business management analyst Dr. Fawad Driver but they did not [...] last appointment. 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 Patient states he has seen a business management analyst Bear antoine and she recommends Taltz instead [...] his 6 Month F/U. Patient states his Manual Winder stopped the Stelara and started Taltz. Patient states he has joint pain every day. Patient states Reason Comments Follow-up Six month follow up for psoriatic arthritis. Reports is experiencing more muscle spasms in his legs, feels condition is worsening some. Reason Comments Follow-up Patient is here for 6 month F/U. Patient states that he is having pain all over today. Reason Comments Follow-up Patient is here toda y for his 6 Month Follow-up. Patient states he has been in a lot of pain since his last appointment, his UYEN knee and neck are the worse. (unrecognized sect ion and content) No Status Records FoundNo Status Records FoundNo Status Records FoundNo Status Records FoundNo Status Records FoundNo Status Records FoundNo Status Records Found INFORMATION SOURCE (unrecogn ized section and content) DATE CREATED AUTHOR 07/29/2020 [facility] DATE CREATED AUTHOR AUTHOR'S ORGANIZ ATION 03/21/2021 [facility] dical Specialist DATE CREATED AUTHOR AUTHOR'S ORGANIZ ATION 01/11/2022 [facility] DATE CREATED AUTHOR AUTHOR'S ORGANIZ ATION 08/12/2022 [facility] DATE CREATED AUTHOR AUTHOR'S ORGANIZ ATION 11/21/2022 [facility] DATE CREATED AUTHOR AUTHOR'S ORGANIZ ATION 08/01/2023 [facility] DATE CREATED AUTHOR AUTHOR'S ORGANIZ ATION 01/09/2024 [facility] Care Teams (unrecognized sec tion and content) Storeroom Keeper Relationship Specialty Start Date End Date Rodrigo Luz MD [address], [place] [address] PCP - General Family Medicine 12/31/17 Storeroom Keeper Relationship Specialty Start Date End Date Rodrigo Luz MD [address], [place] [id number] PCP - General Family Medicine 12/31/17 Storeroom Keeper Relationship Specialty Start Date End Date Rodrigo Luz MD [address], [place] [id number] PCP - General Family Medicine 12/31/17 Storeroom Keeper Relationship Specialty Start Date End Date Rodrigo Luz MD [address], [place] [id number] PCP - General Family Medicine 12/31/17 Storeroom Keeper Relationship Specialty Start Date End Date Rodrigo Brink MD [address] [place] [address] PCP - General Family Medicine 07/31/23 FOR RECORDS PERTAINING TO PATIENTS WHO ARE [...] BE BASED ON THE PRIMARY CLINICAL RECORDS. [employer] provides no warranty or guarantee of the accuracy or completeness of information in this document.
[2024-01-14 07:52] LABS: Glucometer 106 mg/dL (74-106)
--- NOTE | 2024-01-14 07:52 | ECG_ITS ---
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
--- NOTE | 2024-01-14 07:53 | XR_ITS ---
The [address] [address] Patient Name: GLENDA VALENTE MRN: [id number] date: 1965 Sex: M Assigned Patient Location: ER Current Patient Location: ER Accession/Order Number: [id number] Exam Date: 01/14/2024 08:30 Report Date: 01/14/2024 09:19 At the request of: ANG DUPREE Procedure: XR tibia fibula LT 2V PROCEDURE: XR tibia fibula LT 2V COMPARISON: None. HISTORY: injury FINDINGS: BONES:No fracture, acute abnormality, or significant arthropathy. Fragmented anterior tibial tubercle, chronic apophysitis. SOFT TISSUES:Negative. No visible soft tissue swelling. EFFUSION:None visible. OTHER: Vascular calcification XR/XR tibia fibula LT 2V IMPRESSION: No acute radiographic abnormality Electronically authenticated by: TRA ANNE Date: 01/14/2024 09:19
[2024-01-14 08:27] LABS: Basophils Percent Auto 0.1 % (0.2-2.0); Eosinophils Percent Auto 0.2 % (0.9-7.0); Hematocrit 38.8 % (42.0-54.0); Hemoglobin 12.7 g/dL (14.0-18.0); Immature Granulocytes Abs Auto 0.02 10^3/uL (0.00-0.03); Immature Granulocytes Pct Auto 0.2 % (0.0-0.5); Lymphocytes Absolute Auto 0.8 10^3/uL (1.2-3.8); Lymphocytes Percent Auto 10.3 % (20.5-60.0); Mean Corpuscular HGB Conc 32.7 g/dL (29.9-35.2); Mean Corpuscular Hemoglobin 34.6 pg (25.9-34.0); Mean Corpuscular Volume 105.7 fL (80.0-94.0); Mean Platelet Volume 9.8 fL (9.5-13.5); Monocytes Absolute Auto 1.2 10^3/uL (0.3-0.8); Monocytes Percent Auto 14.3 % (1.7-12.0); Neutrophils Percent Auto 74.9 % (43.0-75.0); Platelet Count 258 10^3/uL (150-450)
[2024-01-14 08:33] LABS: Erythrocyte Sedimentation Rate 78 mm/hr (<=20)
[2024-01-14 08:41] LABS: Red Blood Count 3.67 10^6/uL (4.70-6.10)
[2024-01-14 08:44] LABS: Anion Gap 19.6; BUN Creatinine Ratio 17.8; Calcium 8.8 mg/dL (8.5-10.1); Carbon Dioxide 21.3 mmol/L (21.0-32.0); Chloride 101 mmol/L (98-107); Estimated GFR (African America 33 (>=60 mL/min/1.73m^2); Estimated GFR (Non-African Ame 27 (>=60 mL/min/1.73m^2); Glucose 91 mg/dL (74-106); Potassium 3.9 mmol/L (3.5-5.1); Sodium 138 mmol/L (136-145)
[2024-01-14 08:46] LABS: C Reactive Protein 17.38 mg/dL (<=0.50)
[2024-01-14 08:52] LABS: Lactate/Lactic Acid 1.2 mmol/L (0.4-2.0)
--- NOTE | 2024-01-14 09:13 | ED.GENADUL1 ---
HPI HPI - General Adult General Chief complaint: Extremity Injury, Lower Stated complaint: LOWER LEFT EXTREMITY PAIN Time Seen by Provider: 01/14/24 07:43 Source: patient Mode of arrival: Wheelchair Limitations: no limitations History of Present Illness HPI narrative: 58-year-old male to the emergency department with chief complaint of swelling redness and warmth to his left lower extremity. Patient reports a few days ago he was outside and fell into some rocks. He had a scratch on the side of his leg. He reports some redness and warmth that is began extending out from that now going from his ankle to his knee. He reports it is painful. He reports some chills but no fever. Otherwise at his baseline health. Denies diabetes. Related Data Home Medications ?Medication ?Instructions ?Recorded ?Confirmed amitriptyline 25 mg tablet 25 mg PO .HS 10/02/22 07/17/23 amlodipine 10 mg tablet 10 mg PO .QD 10/02/22 07/17/23 azelastine 137 mcg-fluticasone 50 1 spray intranasal .QD 10/02/22 07/17/23 mcg/spray nasal spray bisoprolol 10 1 tab PO .QD 10/02/22 07/17/23 mg-hydrochlorothiazide 6.25 mg tablet calcium 500 mg (as 1 tab PO BID 10/02/22 07/17/23 carbonate)-vitamin D3 5 mcg (200 unit) tablet (Oyster Shell Calcium-Vitamin D3) cetirizine 10 mg tablet 10 mg PO .QD 10/02/22 07/17/23 cyanocobalamin (vitamin B-12) 1,000 mcg PO DAILY 10/02/22 07/17/23 1,000 mcg capsule diclofenac sodium 75 mg 75 mg PO BID 10/02/22 07/17/23 tablet,delayed release folic acid 1 mg tablet 1 mg PO .QD 10/02/22 07/17/23 gabapentin 300 mg capsule 300 mg PO TID 10/02/22 07/17/23 halobetasol propionate 0.05 % applic topical BID 10/02/22 topical cream hydrochlorothiazide 25 mg tablet 25 mg PO DAILY 10/02/22 07/17/23 hyoscyamine sulfate 0.125 mg tablet 0.125 mg PO Q6H PRN dyspepsia 10/02/22 07/17/23 methotrexate sodium 2.5 mg tablet 2.5 mg PO QWEEK 10/02/22 07/17/23 multivitamin 1 tab PO DAILY 10/02/22 07/17/23 sulindac 200 mg tablet 200 mg PO .QD 10/02/22 07/17/23 tazarotene 0.1 % topical foam topical 10/02/22 tizanidine 4 mg tablet 4 mg PO BID PRN muscle spasticity 10/02/22 07/17/23 triamcinolone acetonide 0.1 % applic topical BID 10/02/22 topical cream Allergies Allergy/AdvReac Type Severity Reaction Status Date / Time adalimumab (From Humira) Allergy Verified 07/17/23 08:17 morphine Allergy Verified 07/17/23 08:17 secukinumab (From Cosentyx) Allergy Verified 07/17/23 08:17 Opioid HPI Opioid Management Most Recent Opioid Data: Last Pain Scale 8 01/14/24 08:10 01/14/24 Last ED Pain Assessment 01/14/24 08:10 Review of Systems ROS Status of ROS 10 or more systems reviewed and unremarkable except as noted in history and below PFSH PFSH Medical History Psoriatic arthritis ?L40.50 - Arthropathic psoriasis, unspecified (ICD-10) Osteoarthritis ?M19.90 - Unspecified osteoarthritis, unspecified site (ICD-10) Upper back pain ?M54.9 - Dorsalgia, unspecified (ICD-10) Low back pain ?M54.50 - Low back pain, unspecified (ICD-10) Neck pain ?M54.2 - Cervicalgia (ICD-10) Numbness and tingling ?R20.0 - Anesthesia of skin (ICD-10) ?R20.2 - Paresthesia of skin (ICD-10) Hypertension ?I10 - Essential (primary) hypertension (ICD-10) Surgical History H/O umbilical hernia repair ?Z98.890 - Other specified postprocedural states (ICD-10) ?Z87.19 - Personal history of other diseases of the digestive system (ICD-10) H/O ventral hernia repair ?Z98.890 - Other specified postprocedural states (ICD-10) ?Z87.19 - Personal history of other diseases of the digestive system (ICD-10) H/O gastric bypass ?Z98.84 - Bariatric surgery status (ICD-10) History of herniorrhaphy ?Z98.890 - Other specified postprocedural states (ICD-10) ?Z87.19 - Personal history of other diseases of the digestive system (ICD-10) History of appendectomy ?Z90.49 - Acquired absence of other specified parts of digestive tract (ICD-10) Social History Little interest or pleasure in doing things: not at all Feeling down, depressed, or hopeless: not at all Exam Narrative Exam Narrative: VITALS: I have reviewed the triage vital signs. GENERAL: Obese adult male in no distress NEURO: Alert and oriented. Moves all extremities. Face is symmetric and expressive. EYES: PERRL. No scleral icterus or conjunctival injection. No discharge. HENT: Normocephalic, atraumatic. Hearing is grossly intact. Nares grossly patent and without discharge. Mucous membranes moist. NECK: No JVD. Patient moves neck without restriction. CARDIO: Rhythm regular. Normal rate. No murmur, rub, or gallop. Pulses equal bilaterally in the upper and lower extremity. No lower extremity edema. PULM: Lungs clear to auscultation in all hodges. No wheezes, rales, or rhonchi. No conversational dyspnea. No splinting, stridor, or accessory muscle use. GI/: Abdomen is soft and non-tender. Normoactive bowel sounds. Left lower extremity: Erythema, warmth, swelling extending from just above the ankle to just below the knee. DP and PT pulses intact. There is a wound to the left mid leg which appears to be the source. No crepitus. No discharge or purulence. Compartments are soft. SKIN: Warm and dry. Normal turgor. No rash or lesions appreciated. PSYCH: Mood, affect, and interaction is appropriate to the setting. Constitutional Vital Signs, click to edit/add: Last Vital Signs Temp 98.4 F 01/14/24 07:41 Pulse 100 H 01/14/24 08:10 Resp 24 H 01/14/24 08:10 BP 128/94 H 01/14/24 07:41 Pulse Ox 95 01/14/24 07:41 O2 Del Method Room Air 01/14/24 07:41 Course Vital Signs Vital signs: Vital Signs Temperature 98.4 F 01/14/24 07:41 Pulse Rate 107 H 01/14/24 07:41 Respiratory Rate 18 01/14/24 07:41 Blood Pressure 128/94 H 01/14/24 07:41 Pulse Oximetry 95 01/14/24 07:41 Oxygen Delivery Method Room Air 01/14/24 07:41 Temperature 98.4 F 01/14/24 07:41 Pulse Rate 100 H 01/14/24 08:10 Respiratory Rate 24 H 01/14/24 08:10 Blood Pressure 128/94 H 01/14/24 07:41 Pulse Oximetry 95 01/14/24 07:41 Oxygen Delivery Method Room Air 01/14/24 07:41 Medical Decision Making MDM Narrative Medical decision making narrative: 58-year-old male to the emergency department with chief complaint of leg pain. Vital stable, the patient is afebrile. He does have an impressive cellulitis to the left lower extremity. X-ray and septic workup is initiated. Patient agrees with this plan. Lab work reviewed and noted. Inflammatory markers are elevated. He does not have a leukocytosis. He does appear to have an acute kidney injury. Fluids are ordered. Vancomycin and Zosyn for his severe cellulitis. Case discussed with the hospitalist who agrees admit this patient to his service. Medical Records Medical records reviewed: Yes I reviewed the patient's medical records Lab Data Lab results reviewed: Yes I reviewed the patient's lab results Labs: Lab Results 01/14/24 01/14/24 Range/Units 07:50 08:14 WBC 8.0 (4.0-11.0) 10^3/uL RBC 3.67 L (4.70-6.10) 10^6/uL Hgb 12.7 L (14.0-18.0) g/dL Hct 38.8 L (42.0-54.0) % MCV 105.7 H (80.0-94.0) fL MCH 34.6 H (25.9-34.0) pg MCHC 32.7 (29.9-35.2) g/dL RDW 14.0 (11.0-15.0) % Plt Count 258 (150-450) 10^3/uL MPV 9.8 (9.5-13.5) fL Neut % (Auto) 74.9 (43.0-75.0) % Lymph % (Auto) 10.3 L (20.5-60.0) % [place] % (Auto) 14.3 H (1.7-12.0) % Eos % (Auto) 0.2 L (0.9-7.0) % Baso % (Auto) 0.1 L (0.2-2.0) % Neut # (Auto) 6.0 (1.4-6.5) 10^3/uL Lymph # (Auto) 0.8 L (1.2-3.8) 10^3/uL [place] # (Auto) 1.2 H (0.3-0.8) 10^3/uL Eos # (Auto) 0.0 (0.0-0.7) 10^3/uL Baso # (Auto) 0.0 (0.0-0.1) 10^3/uL Abs Immat Gran (auto) 0.02 (0.00-0.03) 10^3/uL Imm/Tot Granulo (auto) 0.2 (0.0-0.5) % ESR 78 H (<=20) mm/hr Sodium 138 (136-145) mmol/L Potassium 3.9 (3.5-5.1) mmol/L Chloride 101 (98-107) mmol/L Carbon Dioxide 21.3 (21.0-32.0) mmol/L Anion Gap 19.6 BUN 44.0 H (7.0-18.0) mg/dL Creatinine 2.47 H (0.70-1.30) mg/dL Est GFR ( Amer) 33 L (>=60 mL/min/1.73m^2) Est GFR (Non-Af Amer) 27 L (>=60 mL/min/1.73m^2) BUN/Creatinine Ratio 17.8 Glucose 91 (74-106) mg/dL Lactate 1.2 (0.4-2.0) mmol/L Calcium 8.8 (8.5-10.1) mg/dL C-Reactive Protein 17.38 H (<=0.50) mg/dL POC Glucose 106 (74-106) mg/dL Imaging Data X-ray tib-fib: Attestation: I have reviewed the pertinent imaging results. Radiologist's impression: ITS Impressions Tibia/Fibula X-Ray 01/14/24 07:53 IMPRESSION: No acute radiographic abnormality Electronically authenticated by: TRA ANNE Date: 01/14/2024 09:19 ECG Data Attestation: I personally reviewed and interpreted this ECG as follows: (Normal sinus rhythm at a rate of 98. No STEMI. QTc normal at 383.) Discharge Plan Discharge Chief Complaint: Extremity Injury, Lower Clinical Impression: Cellulitis, Sepsis, HIRAL (acute kidney injury) Patient Disposition: Admitted as Observation Time of Disposition Decision: 09:38 Condition: Fair Prescriptions / Home Meds: No Action amitriptyline 25 mg tablet 25 mg PO .HS amlodipine 10 mg tablet 10 mg PO .QD bisoprolol-hydrochlorothiazide 10-6.25 mg tablet 1 tab PO .QD calcium carbonate-vitamin D3 [Oyster Shell Calcium-Vit D3] 500 mg-5 mcg (200 unit) tablet 1 tab PO BID cetirizine 10 mg tablet 10 mg PO .QD diclofenac sodium 75 mg tablet,delayed release (DR/EC) 75 mg PO BID folic acid 1 mg tablet 1 mg PO .QD gabapentin 300 mg capsule 300 mg PO TID Patient Comments: Take 2 tabs in the morning, 1 tab in afternoon and 2 tabs at bedtime halobetasol propionate 0.05 % cream TOPICAL BID methotrexate sodium 2.5 mg tablet 2.5 mg PO QWEEK Rx Instructions: TAKE 7 TABLETS EVERY WEEK sulindac 200 mg tablet 200 mg PO .QD tizanidine 4 mg tablet 4 mg PO BID PRN (Reason: muscle spasticity) Rx Instructions: 1 TAB IN AM 2 TABS HS triamcinolone acetonide 0.1 % cream TOPICAL BID cyanocobalamin (vitamin B-12) 1,000 mcg capsule 1,000 mcg PO DAILY multivitamin Tablet 1 tab PO DAILY azelastine-fluticasone 137-50 mcg/spray spray,non-aerosol 1 spray intranasal .QD Rx Instructions: administer into each nostril tazarotene 0.1 % foam topical hydrochlorothiazide 25 mg tablet 25 mg PO DAILY hyoscyamine sulfate 0.125 mg tablet 0.125 mg PO Q6H PRN (Reason: dyspepsia) Print Language: Maori Referrals: RODRIGO BRINK [Primary Care Provider] - 1 week
[2024-01-14] MEDS: PIPERACILLIN SODIUM/TAZOBACTAM 4.5 GM in 0.9 % SODIUM CHLORIDE 50 ML IV (09:24)
[2024-01-14] MEDS: 0.9 % SODIUM CHLORIDE 1,000 ML 1000 ML IV (09:25)
[2024-01-14] MEDS: VANCOMYCIN HCL 1,000 MG in 0.9 % SODIUM CHLORIDE 250 ML 250 MG IV (10:01)
--- NOTE | 2024-01-14 10:24 | P.HP_ITS ---
HPI H&P: HPI History of Present Illness Chief complaint: LOWER LEFT EXTREMITY PAIN/CELLULITIS Narrative: About 2 to 3 days ago patient had a scratch on his left lower extremity, went to bed last night without any issues regarding his left lower extremity, woke up with severe erythema and swelling and pain in the left lower extremity. Presented to the emergency room and found to have likely cellulitis left lower extremity with acute kidney injury. Patient is immunocompromise being on methotrexate. Opioid HPI Opioid Management Most Recent Pain and Opioid Data: Last Pain Scale 7 01/14/24 13:56 01/14/24 Last Pain Assessment 01/14/24 13:56 Last ED Pain Assessment 01/14/24 08:10 Last ORT Total Score 0 01/14/24 12:02 01/14/24 Last ORT Risk Category Low Risk 01/14/24 12:02 01/14/24 Review of Systems ROS Status of ROS 10 or more systems reviewed and unremark able except as noted in history and below [facility] Medical History Psoriatic arthritis ?L40.50 - Arthropathic psoriasis, unspecified (ICD-10) Osteoarthritis ?M19.90 - Unspecified osteoarthritis, unspecified site (ICD-10) Upper back pain ?M54.9 - Dorsalgia, unspecified (ICD-10) Low back pain ?M54.50 - Low back pain, unspecified (ICD-10) Neck pain ?M54.2 - Cervicalgia (ICD-10) Numbness and tingling ?R20.0 - Anesthesia of skin (ICD-10) ?R20.2 - Paresthesia of skin (ICD-10) Hypertension ?I10 - Essential (primary) hypertension (ICD-10) Surgical History H/O umbilical hernia repair ?Z98.890 - Other specified postprocedural states (ICD-10) ?Z87.19 - Personal history of other diseases of the digestive system (ICD-10) H/O ventral hernia repair ?Z98.890 - Other specified postprocedural states (ICD-10) ?Z87.19 - Personal history of other diseases of the digestive system (ICD-10) H/O gastric bypass ?Z98.84 - Bariatric surgery status (ICD-10) History of herniorrhaphy ?Z98.890 - Other specified postprocedural states (ICD-10) ?Z87.19 - Personal history of other diseases of the digestive system (ICD-10) History of appendectomy ?Z90.49 - Acquired absence of other specified parts of digestive tract (ICD- 10) Family History (Updated 01/14/24 @ 12:26 by Patricia Anders) Mother Family history of DVT Family history of ovarian cancer Family history of lung cancer Brother Family history of myocardial infarction Family history of COPD (chronic obstructive pulmonary disease) Social History Highest level of school completed/degree received: some college, no degree Little interest or pleasure in doing things: not at all Feeling down, depressed, or hopeless: not at all Do you think of yourself as: lesbian/valles/homosexual Gender Identity: male Meds Home Medications and Allergies Home Medications ?Medication ?Instructions ?Recorded ?Confirmed ?Type amitriptyline 25 mg tablet 25 mg PO .HS 10/02/22 01/14/24 History azelastine 137 mcg-fluticasone 50 1 spray intranasal .QD 10/02/22 01/14/24 History mcg/spray nasal spray bisoprolol 10 1 tab PO .QD 10/02/22 01/14/24 History mg-hydrochlorothiazide 6.25 mg tablet calcium 500 mg (as 1 tab PO BID 10/02/22 01/14/24 History carbonate)-vitamin D3 5 mcg (200 unit) tablet (Oyster Shell Calcium-Vitamin D3) cetirizine 10 mg tablet 10 mg PO .QD 10/02/22 01/14/24 History cyanocobalamin (vitamin B-12) 1,000 mcg PO DAILY 10/02/22 01/14/24 History 1,000 mcg capsule diclofenac sodium 75 mg 75 mg PO BID PRN pain 10/02/22 01/14/24 History tablet,delayed release folic acid 1 mg tablet 1 mg PO .QD 10/02/22 01/14/24 History gabapentin 300 mg capsule 300 mg PO TID 10/02/22 01/14/24 History halobetasol propionate 0.05 % 1 applic topical BID 10/02/22 01/14/24 History topical cream methotrexate sodium 2.5 mg tablet 2.5 mg PO QWEEK 10/02/22 01/14/24 History multivitamin 1 tab PO DAILY 10/02/22 01/14/24 History tizanidine 4 mg tablet 4 mg PO BID PRN muscle spasticity 10/02/22 01/14/24 History triamcinolone acetonide 0.1 % 1 applic topical BID 10/02/22 01/14/24 History topical cream amlodipine 5 mg tablet 5 mg PO .QD 01/14/24 01/14/24 History bupropion HCl 300 mg 24 hr tablet, 300 mg PO .QD 01/14/24 01/14/24 History extended release Allergies Allergy/AdvReac Type Severity Reaction Status Date / Time adalimumab (From Humira) Allergy Verified 07/17/23 08:17 morphine Allergy Verified 07/17/23 08:17 secukinumab (From Cosentyx) Allergy Verified 07/17/23 08:17 Exam Constitutional Vital Signs, click to edit/add: Last Vital Signs Temp 98.4 F 01/14/24 07:41 Pulse 95 H 01/14/24 10:00 Resp 20 01/14/24 10:00 BP 128/94 H 01/14/24 07:41 Pulse Ox 99 01/14/24 10:00 O2 Del Method Room Air 01/14/24 07:41 Documenting provider has reviewed patient's vital signs: yes Common normals: no apparent distress Chest Common normals: inspection of chest normal Respiratory Common normals: normal respiratory effort, no retractions, no use of accessory muscles and clear to auscultation bilaterally Cardio Common normals: regular rate, regular rhythm and no murmurs GI Common normals: Normal to inspection, nondistended, normoactive bowel sounds present Extremity Common normals: normal to inspection (Left lower extremity consistent with cellulitis with erythema, calor, dolor) Results Labs Labs: Short CBC 01/14/24 Range/Units 08:14 WBC 8.0 (4.0-11.0) 10^3/uL Hgb 12.7 L (14.0-18.0) g/dL Hct 38.8 L (42.0-54.0) % Plt Count 258 (150-450) 10^3/uL BMP 01/14/24 08:14 Sodium 138 Potassium 3.9 Chloride 101 Carbon Dioxide 21.3 BUN 44.0 H Creatinine 2.47 H Glucose 91 Calcium 8.8 Assessment and Plan Assessment and Plan (1) HIRAL (acute kidney injury): (2) Sepsis: (3) Cellulitis: (4) Fibromyalgia: (5) Psoriatic arthritis: (6) Hypertension: Plan Admission findings: Sinus tachycardia, elevated inflammatory markers of CRP and ESR, mild acute kidney injury, cellulitis secondary to immune compromised status with being on methotrexate for rheumatoid arthritis. Immune compromise left lower extremity cellulitis-IV antibiotics. Blood cultures pending. Daily labs. Rheumatoid arthritis-immune compromised status with methotrexate-maintain current dosing except the methotrexate Acute kidney injury with initial baseline creatinine of 1.31 admission creatinine of 2.47 -represent increase of 188.6% above baseline - gentle hydration. Fibromyalgia-maintain current medications except NSAIDs due to her creatinine as outlined above Admission status: Patient with significant immunodeficiency secondary to being on methotrexate for extended period of time, severe cellulitis with rapid progression of to starting over night but is severe this morning. High risk for developing sepsis. Continue patient on IV antibiotics, blood cultures pending, inpatient status secondary to medically necessary treatment spanning 2 midnights due to immune deficiency
--- NOTE | 2024-01-14 10:26 | US_ITS ---
The [address] [address] Patient Name: GLENDA VALENTE MRN: [id number] date: 1965 Sex: M Assigned Patient Location: [place] Current Patient Location: [place] Accession/Order Number: [id number] Exam Date: 01/14/2024 13:00 Report Date: 01/14/2024 13:40 At the request of: ROWENA ROTHMAN Procedure: US venous doppler LE LT EXAM: US venous doppler LE LT HISTORY: Leg Pain COMPARISON: None. TECHNIQUE: Doppler color flow as well as spectral analysis were performed of the left lower extremity. FINDINGS: There is adequate flow, compressibility, or augmentation within the visualized deep venous structures of the left lower extremity. No evidence of deep venous thrombus. There is edema within the subcutaneous fat of the distal lower extremity. In addition within the popliteal fossa there is a 2.2 x 1.3 x 1.4 cm Daniel's cyst. US/US venous doppler LE LT IMPRESSION: 1. No deep venous thrombus. 2. Daniel's cyst. Electronically authenticated by: CHRIS ADKINS Date: 01/14/2024 13:40
--- OUTSIDE RECORDS SUMMARY | 2024-01-14 12:13 | XMS_ITS | CCD ---
Author Organization [facility] Care Team Providers Care Fur Polisher Name Role Phone Rodrigo Luz Unavailable PILI ALLAN Surgeon Unavailable PILI ALLAN Attending Unavailable PILI ALLAN Admitting Unavailable CT Procedure Practitioner Unavailab RODRIGO Proctor Referring Unavailable RODRIGO LUZ Primary Care Unavailable DANIELA MILIAN Surgeon Unavailable CT Procedure Practitioner UnavailRodrigo Cannon MD Primary Care [...] Consulting Unavailable Rodrigo Brink. Primary Care Physician RODRIGO LUZ Primary Care Unavailable LUZ, RODRIGO Primary Care Unavailable LUZ, RODRIGO Primary Care Unavailable LZU, RODRIGO Primary Care Unavailable Luz , Rodrigo [...] adalimumab; Translations: [HUMIRA] Drug Allergy 8 [facility] Repository Opioid Agonists (1 source) Morphine; Translations: [MORPHINE] Drug Allergy 8 [facility] Repository secukinumab (1 source) secukinumab; Translations: [COSENTYX] Drug Allergy 8 [facility] Repository (20 sources) adalimumab; Translations: [adalimumab] Drug Allergy rash [facility] Work Phone: (20 sources) Morphine; Translations: [morphine] Drug Allergy 1 Unknown (qualifier value) [facility] Work Phone: (20 sources) secukinumab; Translations: [secukinumab] Drug Allergy rash [facility] Work Phone: (1 source) adalimumab Drug Allergy [facility] Rep[facility] (1 source) Morphine Drug Allergy [facility] (1 source) secukinumab Drug Allergy [facility] Medications Current Medications Medication Drug Class(es) Dates Sig (Normalized) Sig (Original) amitriptyline hydrochloride 25 mg oral tablet (11 sources) Tricyclic Antidepressant Start: 09-20-2023 take 2 tablets by mouth at bedtime amitriptyline 25 mg Tab See Instructions, TAKE 2 TABLETS BY MOUTH AT BEDTIME, # 60 tab(s), Refills(s) 5, Pharmacy: [facility]/pharmacy #[id number], 180.3, cm, 09/20/23 9:40:00 EDT, Height/Length Dosing, 113.4, kg, 09/20/23 9:40:00 EDT, Weight Dosing Start Date: 09/20/23 Status: Ordered Start: 06-20-2020 take 2 tablets by mo uth at bedtime amitriptyline 25 mg Tab See Instructions, TAKE 2 TABLETS BY MOUTH AT BEDTIME, # 60 tab(s), Refills(s) 5, Pharmacy: [facility]/pharmacy #[id number], 180.3, cm, 05/17/23 9:51:00 EST, Height/Length Dosing, 105.1, kg, 05/17/23 9:51:00 EST, Weight Dosing Start Date: 05/17/23 Status: Ordered Amitriptyline HC l Active amLODIPine 5 mg oral tablet (20 sources) Dihydropyridine Calcium Channel Colette Start: 09-20-2023 take 1 tablet by mouth once daily amLODIPine 5 mg Tab 5 mg = 1 tab(s), Oral, Daily, # 90 tab(s), Refills(s) 1, Pharmacy: [facility]/pharmacy #[id number], 180.3, cm, 09/20/23 9:40:00 EDT, Height/Length Dosing, 113.4, kg, 09/20/23 9:40:00 EDT, Weight Dosing Start Date: 09/20/23 Status: Ordered Start: 07-26-2022 take 1 tablet by eloy th once daily amLODIPine 5 mg Tab 5 mg = 1 tab(s), Oral, Daily, # 90 tab(s), Refills(s) 3, Pharmacy: [facility]/pharmacy #[id number] Start Date: 07/26/22 Status: Ordered take 1 tablet by eloy th once daily amLODIPine 10 MG Tab tablet amlodipine 10 mg tablet Take 1 tablet every day by oral route. Active amLODIPine Benzoate (1 source) amLODIPine Benzoate Active Bisoprolol (1 source) beta-Adrenergic [place] Bisoprolol Fumarate Active bisoprolol fumarate 10 mg / hydroCHLOROthiazide 6.25 mg oral tablet (10 sources) Thiazide Diuretic, beta-Adrenergic Colette Start: 09-20-19 take 1 tablet by mouth once daily bisoprolol-hydroch lorothiazide 10 mg-6.25 mg Tab 1 tab(s), Oral, Daily, 90 tab(s), Refill(s) 1, [facility]/pharmacy #[id number], 180.3, cm, 09/20/23 9:40:00 EDT, Height/Length Dosing, 113.4, kg, 09/20/23 9:40:00 EDT, Weight Dosing Start Date: 09/20/23 Status: Ordered Start: 07-09-2020 take 1 tablet by eloy once daily bisoprolol-hydrochlorothiazide 10 mg-6.2 5 mg Tab 1 tab(s), Oral, Daily, 90 tab(s), Refill(s) 1, [facility]/pharmacy #[id number], 180.3, cm, 03/05/23 14:04:00 EST, Height/Length Dosing, 102, kg, 03/05/23 14:04:00 EST, Weight Dosing Start Date: 03/13/23 Status: Ordered 24 hr buPROPion hydrochloride 300 mg extended release oral tablet (4 sources) Aminoketone Start: 08-16-2023 take 1 tablet by mouth every twenty-four hours buPROPion 300 mg/24 hours ER Tab 300 mg = 1 tab(s), Oral, q24hr, # 90 tab(s), Refills(s) 1, Pharmacy: [facility]/pharmacy #[id number], 180.3, cm, 08/16/23 13:16:00 EDT, Height/Length Dosing, 108.4, kg, 08/16/23 13:16:00 EDT, Weight Dosing Start Date: 08/16/23 Status: Ordered Start: 01-12-2023 take 1 tablet by eloy th every twenty-four hours buPROPion 150 mg/24 hours XL Tab 150 mg = 1 tab(s), Oral, q24hr, # 90 tab(s), Refills(s) 1, Pharmacy: [facility]/pharmacy #[id number], 180.3, cm, 11/15/22 16:44:00 EDT, Height/Length Dosing, 106.5, kg, 11/15/22 16:44:00 EDT, Weight Dosing Start Date: 01/12/23 Status: Ordered Start: 10-23-2022 take 1 tablet by eloy th every twenty-four hours buPROPion 150 mg/24 hours XL Tab 150 mg = 1 tab(s), Oral, q24hr, # 90 tab(s), Refills(s) 0, Pharmacy: [facility]/pharmacy #[id number], 180.3, cm, 10/20/22 8:11:00 EDT, Height/Length [...] DAY, # 90 tab(s), Refills(s) 1, Pharmacy: [facility]/pharmacy #[id number], 180.3, cm, 08/16/23 13:16:00 EDT, Height/Length Dosing, 108.4, kg, 08/16/23 13:16:00 EDT, Weight Dosing Start Date: 08/16/23 Status: Ordered Start: 04-15-2018 take 1 tablet by eloy th once daily cetirizine 10 mg Tab See Instructions, TAKE 1 TABLET BY MOUTH EVERY DAY, # 90 tab(s), Refills(s) 0, Pharmacy: [facility] STORE [id number], 180.3, cm, 05/17/23 9:51:00 EST, Height/Length Dosing, 105.1, kg, 05/17/23 9:51:00 EST, Weight Dosing Start Date: 05/31/23 Status: Ordered ZyrTE Active cholecalciferol 0.25 mg oral capsule (20 sources) Vitamin D Start: 2023 take 1 capsule by mouth every week [facility] Vitamin D3 250 MCG (41525 UT) capsule capsule Indications: Vitamin D deficiency take 1 capsule by mouth one time per week 4 capsule 14 2023 Active Start: 05-18-2022 take 1 capsule by mo uth every week Cholecalciferol (Vitamin D3) 250 MCG (17224 UT) capsule Indications: Vitamin D deficiency TAKE 1 CAPSULE BY MOUTH ONE TIME PER WEEK 4 capsule 14 05/18/2022 Active Start: 05-11-2021 take 1 capsule by mo uth every week Cholecalciferol ([facility] Vitamin D3) 250 MCG (90870 UT) capsule capsule Indications: Vitamin D deficiency TAKE 1 CAPSULE BY MOUTH ONE TIME PER WEEK 4 capsule 14 05/11/2021 Active Start: 04-28-2020 take 1 capsule by mo uth every week Cholecalciferol ([facility] Vitamin D3) 250 MCG (65484 UT) capsule capsule Indications: Vitamin D deficiency TAKE 1 CAPSULE BY MOUTH ONE TIME PER WEEK 4 capsule 14 04/28/2020 Active Start: 04-21-2019 take 1 capsule by mo uth every week Cholecalciferol ([facility] VITAMIN D3) 250 MCG (77040 UT) Cap capsule Indications: Vitamin D deficiency TAKE 1 CAPSULE BY MOUTH ONCE A WEEK 4 capsule 14 04/21/2019 Active Start: 09-03-2018 End: 09-03-2018 take 2 capsules by mouth once Cholecalciferol (MAXIMUM D3) 71480 units Cap Indications: Vitamin D deficiency 2 po one day a week 10 capsule 11 09/03/2018 Active Start: 04-17-2018 End: 09-03-2018 take 1 capsule by mouth once Cholecalciferol (MAXIMUM D3) 64927 units Cap Indications: Vitamin D deficiency 1 [...] Plaque psoriasis , Hyperchromic anemia , Methotrexate, longterm, current use , Long-term current use of [...] type , History of psoriatic arthritis , 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-inflammatories (NSAID) , 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 , Methotrexate, manager long term care, current use , Long-term current use [...] bedtime, # 60 cap(s), Refills(s) 2, Pharmacy: [facility] STORE [id number], 180.3, cm, 03/05/23 14:04:00 EST, Height/Length Dosing, 102, kg, 03/05/23 14:04:00 EST, Weight Dosing Start Date: 04/30/23 Status: Ordered Start: 04-30-2023 take 1 capsule by [facility] twice daily gabapentin 300 mg Cap See Instructions, TAKE 1 CAPSULE BY MOUTH TWICE A DAY, # 60 cap(s), Refills(s) 2, Pharmacy: [facility] STORE [id number], 180.3, cm, 03/05/23 14:04:00 EST, Height/Length Dosing, 102, kg, 03/05/23 14:04:00 EST, Weight Dosing Start Date: 04/30/23 Status: Ordered Start: 11-15-2022 take 1 capsule by [facility] twice daily gabapentin 300 mg Cap 300 mg = 1 cap(s), Oral, BID, # 180 cap(s), Refills(s) 0, [id number] 180.3, cm, 11/15/22 16:44:00 EDT, Height/Length Dosing, 106.5, kg, 11/15/22 16:44:00 EDT, Weight Dosing Start Date: 11/15/22 Status: Ordered Start: 10-30-2022 take 1 capsule by [facility] twice daily gabapentin 300 mg Cap 300 mg = 1 cap(s), Oral, BID, # 60 cap(s), Refills(s) 0, Pharmacy: [facility]/pharmacy #[id number], 180.3, cm, 10/20/22 8:11:00 EDT, Height/Length Dosing, 109.1, kg, 10/20/22 8:11:00 EDT, Weight Dosing Start Date: 10/30/22 Status: Ordered Start: 03-18-2018 take 1 capsule by [facility] once daily in the morning gabapentin 300 MG Cap capsule Take 1 capsule by mouth daily every morning. 0 03/18/2018 Active Gabapentin Activ e halobetasol propionate 0.5 mg/ml topical cream (20 sources) Corticosteroid Start: 07-29-2019 halobetasol 0. 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, longterm, current use , Long-term current use of high risk medication other than anticoagulant , 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 , 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-inflammatories (NSAID) , [...] psoriasis , Anemia, unspecified type , Methotrexate, manager long term care, current use , Long-term current use of high risk medication other than anticoagulant , 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 , 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-inflammatories (NSAID) , [...] Active Start: 10-29-2019 take 7 tablets by mn ut every week methotrexate 2.5 MG tablet [...] spondylitis , History of psoriatic arthritis , 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-inflammatories (NSAID) , [facility]PC current use of systemic steroids , Long-term current use of high risk medication other than anticoagulant , Methotrexate, manager long term care, current use , Noncompliance , Patient non [...] , Psoriasis , Anemia, unspecified type , [facility]PC current use of non-steroidal anti-inflammatories (NSAID) , 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 , Methotrexate, manager long term care, current use , Long-term current use [...] tab(s), Oral, BID, 90 tab(s), Refill(s) 1, [facility]/pharmacy #[id number], 180.3, cm, 09/20/23 9:40:00 EDT, Height/Length Dosing, 113.4, kg, 09/20/23 9:40:00 EDT, Weight Dosing Start Date: 09/20/23 Status: Ordered predniSONE 1 mg oral tablet (20 sources) Start: 01-07-2019 End: 05-06-2019 take 4 tablets by mouth once in the morning predniSONE 1 MG Tab tablet Indications: Psoriatic arthritis , Psoriatic spondylitis , Psoriasis , Plaque psoriasis , Anemia, unspecified type , Methotrexate, longterm, current use , Long-term current use of high risk medication other than anticoagulant , 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 , FPC current use of non-steroidal anti-inflammatories (NSAID) , [...] spondylitis , History of psoriatic arthritis , [facility]PC current use of non-steroidal anti-inflammatories (NSAID) , [facility]PC current use of systemic steroids , Long-term current use of high risk medication other than anticoagulant , Methotrexate, manager long term care, current use , Noncompliance , Patient non [...] , Psoriasis , Anemia, unspecified type , 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-inflammatories (NSAID) , 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 , Methotrexate, manager long term care, current use , Long-term current use [...] type , History of psoriatic arthritis , 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-inflammatories (NSAID) , 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 , Methotrexate, manager long term care, current use , Long-term current use [...] BID, # 60 cap(s), Refills(s) 11, Pharmacy: [facility]/pharmacy #[id number], 180, cm, 10/01/23 13:04:00 EDT, Height/Length Dosing, 104.7, kg, 10/01/23 13:04:00 EDT, Weight Dosing Start Date: 10/01/23 Status: Ordered triamcinolone acetonide 0.001 mg/mg topical ointment (20 sources) Corticosteroid Start: 07-09-2023 triamcinolone 0.1 % Ointment ointment Indications: Psoriatic arthritis , Psoriatic spondylitis , Psoriasis , Plaque psoriasis , Anemia, unspecified type , Methotrexate, longterm, current use , Long-term current use of high risk medication other than anticoagulant , 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 , 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-inflammatories (NSAID) , [...] psoriasis , Anemia, unspecified type , Methotrexate, longterm, current use , Long-term current use of high risk medication other than anticoagulant , FPC current use of systemic steroids , FPC current use of non-steroidal anti-inflammatories (NSAID) , [...] psoriasis , Anemia, unspecified type , Methotrexate, longterm, current use , Long-term current use of high risk medication other than anticoagulant , 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 , 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-inflammatories (NSAID) , [...] psoriasis , Anemia, unspecified type , Methotrexate, manager long term care, current use , Long-term current use of high risk medication other than anticoagulant , 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 , 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-inflammatories (NSAID) , [...] psoriasis , Anemia, unspecified type , Methotrexate, longterm, current use , Long-term current use of high risk medication other than anticoagulant , 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 , 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-inflammatories (NSAID) , [...] psoriasis , Anemia, unspecified type , Methotrexate, longterm, current use , Long-term current use of high risk medication other than anticoagulant , 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 , 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-inflammatories (NSAID) , [...] psoriasis , Anemia, unspecified type , Methotrexate, manager long term care, current use , Long-term current use of high risk medication other than anticoagulant , FPC current use of systemic steroids , 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-inflammatories (NSAID) , [...] psoriasis , Anemia, unspecified type , Methotrexate, longterm, current use , Long-term current use of high risk medication other than anticoagulant , FPC current use of systemic steroids , 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-inflammatories (NSAID) , [...] End: 07-12-2021 triamcinolone 0.1 % Cream cr [facility] Indications: Psoriatic arthritis , Psoriatic spondylitis , Psoriasis , Plaque psoriasis , Anemia, unspecified type , Methotrexate, manager long term care, current use , Long-term current use of high risk medication other than anticoagulant , FPC current use of systemic steroids , 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-inflammatories (NSAID) , [...] psoriasis , Anemia, unspecified type , Methotrexate, longterm, current use , Long-term current use of high risk medication other than anticoagulant , FPC current use of systemic steroids , [facility]PC current use of non-steroidal anti-inflammatories (NSAID) , [...] psoriasis , Anemia, unspecified type , Methotrexate, longterm, current use , Long-term current use of high risk medication other than anticoagulant , FPC current use of systemic steroids , 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-inflammatories (NSAID) , [...] psoriasis , Anemia, unspecified type , Methotrexate, manager long term care, current use , Long-term current use of high risk medication other than anticoagulant , 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 , FPC current use of non-steroidal anti-inflammatories (NSAID) , [...] psoriasis , Anemia, unspecified type , Methotrexate, manager long term care, current use , Long-term current use of high risk medication other than anticoagulant , 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 , 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-inflammatories (NSAID) , [...] psoriasis , Anemia, unspecified type , Methotrexate, manager long term care, current use , Long-term current use of high risk medication other than anticoagulant , FPC current use of systemic steroids , FPC current use of non-steroidal anti-inflammatories (NSAID) , [...] Start: 07-02-2022 fluticasone Na corina 0.05 mg/inh [place] See Instructions, 16 mL, Refill(s) 0, SPRAY 2 SPRAYS INTO EACH NOSTRIL DAILY, [id number] Start Date: 07/02/22 Status: Ordered Start: 04-15-2018 [...] hydrochloride 5 mg oral tablet (1 source) S-rwlvjz-D-aspartate Receptor Antagonist Start: 04-06-2018 End: 05-03-2018 memantine [...] stones , History of psoriatic arthritis , 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-inflammatories (NSAID) , Long-term current use of high risk medication other than anticoagulant , Methotrexate, longterm, current use , Abnormal renal function test [...] , Psoriasis , Anemia, unspecified type , 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-inflammatories (NSAID) , 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 , Methotrexate, manager long term care, current use , Long-term current use [...] , Psoriasis , Anemia, unspecified type , 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-inflammatories (NSAID) , 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 , Methotrexate, manager long term care, current use , Long-term current use [...] , Psoriasis , Anemia, unspecified type , 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-inflammatories (NSAID) , 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 , Methotrexate, longterm, current use , Long-term current use of [...] , Psoriasis , Anemia, unspecified type , [facility]PC current use of non-steroidal anti-inflammatories (NSAID) , 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 , Methotrexate, manager long term care, current use , Long-term current use [...] type , History of psoriatic arthritis , 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-inflammatories (NSAID) , [facility]PC current use of systemic steroids , Methotrexate, manager long term care, current use , Long-term current use [...] Onset: 9 05-03-2018 Other aftercare (20 sources) 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 methotrexate user; Translations: [Other longterm (current) drug therapy] Onset: 8 03-29-2018 Episodic Other aftercare (10 sources) Drug therapy finding; Translations: [Other manager long term care (current) drug therapy] Onset: 8 Episodic Other aftercare (3 sources) Other manager long term care (current) drug therapy; Translations: [OTH INDUSTRIAL ORDER CLERK CURRENT DRUG THERAPY] Onset: 8 Episodic Other aftercare (1 source) 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 (current) use of non-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-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); Translations: [SKILLED NURSING USE NSAID] Onset: 3 Episodic Other bone [...] Unclassified (20 sources) Patient encounter status; Translations: [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-inflammatories (NSAID)] Onset: [...] PAIN, UNSPECIFIED] Onset: 3 Unclassified (1 source) SKILLED NURSING USE ANTIMETABOLITE AGENT; Translations: [INDUSTRIAL ORDER CLERK USE ANTIMETABOLITE AGENT] Onset: 3 Unclassified (1 source) CONTACT W/AND (SUSP) EXPOS COVID-19; Translations: [CONTACT W/AND (SUSP) EXPOS COVID-19] Onset: 2 Unclassified (1 source) 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 (current) use of antimetabolite agent; Translations: [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 (current) use of antimetabolite agent] Onset: 8 [...] Long-term current use of systemic steroid; Translations: [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 (current) use of systemic steroids] Onset: 8 Resolved: 0 Episodic Other aftercare (8 sources) Patient encounter status; Translations: [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 (current) use of non-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-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)] Onset: 8 Resolved: 3 Episodic Other aftercare (5 sources) Long-term current use of immunosuppressive drug; Translations: [Other manager long term care (current) drug therapy] Onset: 8 Resolved: 8 03-29-2018 Episodic Other aftercare (1 source) FPC (current) use of systemic steroids; Translations: [INDUSTRIAL ORDER CLERK USE OF SYSTEMIC STEROIDS] Onset: 2 Episodic [...] Long-term current use of immunosuppressive drug; Translations: [FPC current use of immunosuppressive drug] Onset: 8 Resolved: 8 03-29-2018 Unclassified (1 source) Psoriatic spondylitis Unclassified (20 sources) Long-term current use of systemic steroid; Translations: [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] Onset: 8 Resolved: 0 03-29-2018 Unclassified (1 source) 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 Unclassified (1 source) LOW BACK PAIN, UNSPECIFIED; Translations: [LOW BACK PAIN, UNSPECIFIED] Onset: 3 Unclassified (1 source) 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 (current) use of antimetabolite agent; Translations: [FPC (current) use of antimetabolite agent] Onset: 4 [...] mg Cap) ipratropium nasal (ipratropium Nasal 0.03% [place]) ixekizumab (Taltz Autoinjector 80 mg/mL subcutaneous solution) [...] AM EDT With: Rodrigo Brink MD Where: [address] [address]- 2023 10:00 AM EST With: Rodrigo Brink MD Where: [address] [address]- Medications What How Much When Why Instructions New amoxicillin (amoxicillin 500 mg Cap) 1 Capsules By Mouth Every 12 hours Acute URI Pickup at [facility]/pharmacy #[id number] New fluticasone nasal (Flonase Allergy Relief 50 mcg/ inh nasal spray) 1 Sprays Nasal Inhalation Every day Pickup at [facility]/pharmacy #[id number] Unchanged amitriptyline (amitriptyline 25 mg Tab) See [...] concerns Unchanged ipratropium nasal (ipratropium Nasal 0.03% [place]) See instructions USE 2 SPRAYS IN EACH [...] concerns Pharmacy Information [id number]: [address], [place] [phone] Allergies morphine (Unknown) Problems Ongoing - Any problem that you are currently receiving treatment for. Acute URI Allergic rhinitis Anemia Anxiety Atherosclerotic heart disease of [place] coronary artery with angina pectoris Contusion COVID-19 Essential hypertension Eustachian tube dysfunction Fatigue Kidney stones Macrocytosis Obesity due to excess calories Psoriasis arthropathica Screening PSA (prostate specific antigen) Sleep disorder Spasm of back muscles Stage 3a chronic kidney disease (CKD) Syncope Vitamin D deficiency Historical - (more content not included)... Normal [facility] Office/Clini c Noteon 12-25-2023 Family [...] q12hr, # 20 cap(s), Refills(s) 0, Pharmacy: [facility]/pharmacy #[id number], 180, cm, 12/25/23 14:44:00 EDT, Height/Length [...] Anemia Anxiety Atherosclerotic heart disease of [place] coronary artery with angina pectoris Contusion COVID-19 [...] mg Cap, See Instructions ipratropium Nasal 0.03% [place], See Instructions Oyster Shell Calcium with Vitamin [...] is, acel/tetanus adult 11/15/2019 Recorded Normal [facility] Comment on above: Result Comment: Elec tronically [...] mg Cap) ipratropium nasal (ipratropium Nasal 0.03% [place]) ixekizumab (Taltz Autoinjector 80 mg/mL subcutaneous solution) [...] AM EST With: Rodrigo Brink MD Where: [facility] Ambulatory Visit Summaryon 0 09-20-2023 Ambulatory Visit [...] mg Cap) ipratropium nasal (ipratropium Nasal 0.03% [place]) ixekizumab (Taltz Autoinjector 80 mg/mL subcutaneous solution) [...] Yusuf POLLARD MD Where: [facility] Normal [address] [place] [phone] \.br\ Medications\.br\ What How Much When Instructions\.br\ Changed calcium-vitamin D ([place] Shell Calcium with Vitamin D 500 mg-200 intl units oral tablet) 1 Tablets By Mouth 2 times a day Pickup at [facility]/pharmacy #[id number]\.br\ Unchanged amitriptyline (amitriptyline 25 mg Tab) See instructions TAKE 2 TABLETS BY MOUTH AT BEDTIME Pickup at [facility]/pharmacy #[id number]\.br\ Unchanged amlodipine (amLODIPine 5 mg Tab) 1 Tablets By Mouth Every day Pickup at [facility]/pharmacy #[id number]\.br\ Unchanged bisoprolol-hydroc hlorothiazide (bisoprolol-hydro chlorothiazide 10 mg-6.25 mg Tab) 1 Tablets By Mouth Every day Pickup at [facility]/pharmacy #[id number]\.br\ Unchanged buPROPion (buPROPion 300 mg/ 24 [...] \.br\ Unchanged ipratropium nasal (ipratropium Nasal 0.03% [place]) See instructions USE 2 SPRAYS IN EACH [...] if questions or concerns \.br\ Pharmacy Information\.br\ 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/pharmacy #[id number], 180.3, cm, 09/20/23 9:40:00 EDT, Height/Length Dosing, 113.4, kg, 09/20/23 9:40:00 EDT, Weight Dosing amlodipine, 5 mg = 1 tab(s), Oral, Daily, # 90 tab(s), Refills(s) 1, Pharmacy: [facility]/pharmacy #[id number], 180.3, cm, 09/20/23 9:40:00 EDT, Height/Length Dosing, 113.4, kg, 09/20/23 9:40:00 EDT, Weight Dosing bisoprolol-hydroch lorothiazide, 1 tab(s), Oral, Daily, 90 tab(s), Refill(s) 1, [facility]/pharmacy #[id number], 180.3, cm, 09/20/23 9:40:00 EDT, Height/Length Dosing, 113.4, kg, 09/20/23 9:40:00 EDT, Weight Dosing calcium-vitamin D, 1 tab(s), Oral, BID, 90 tab(s), Refill(s) 1, 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 Normal [facility] Comment on above: Result Comment: Elec [...] numbers. This can be done either in [place] ([place] or metric measurements. Note that charts and online BMI calculators are available to help you find your BMI quickly and easily without having to do these calculations yourself. To calculate your BMI in [place] ([place] measurements: 1. Measure your weight in [...] for Disease Control and Prevention: www.cdc.gov ? [place] Heart Association: www.heart.org ? National Heart, Lung, and Blood [place]: www.nhlbi.nih.gov Summary ? Body mass index (BMI) is a number that is calculated from a person's weight and height. ? BMI may help estimate how much of a person's weight is composed of fat. BMI can help identify those who may be at higher risk for certain medical problems. ? BMI can be measured using [place]i measurements or metric measurements. ? BMI charts are used to identify whether you are underweight, normal weight, overweight, or obese. This information is not intended to replace advice given to you by your health care provider. Make sure you discuss any questions you have with your health care provider. Document Revised: 12/10/2019 Document Reviewed: 10/17/2019 [employer] Patient Education ? 2022 [employer]. [facility] Ambulatory Visit Summaryon 0 08-16-2023 Ambulatory Visit [...] mg Tab) ipratropium nasal (ipratropium Nasal 0.03% [place]) Contact prescribing physician if questions or concerns amitriptyline (amitriptyline 25 mg Tab) bisoprolol-hydroch lorothiazide (bisoprolol-hydroc hlorothiazide 10 mg-6.25 mg Tab) cyclobenzaprine (cyclobenzaprine 10 mg Tab) gabapentin (gabapentin 300 mg Cap) ixekizumab (Taltz Autoinjector 80 mg/mL subcutaneous solution) sildenafil (sildenafil 25 mg Tab) [Image Removed: STOP]Stop taking these medications fluticasone nasal (fluticasone Nasal 0.05 mg/inh [place]) Procedures Performed Appendectomy, CABG (Coronary artery bypass grafting) planned, Inguinal hernia. Discharge Vitals Temperature (Temporal Artery) 37.3 ?C Heart Rate (Peripheral) 74 Respiratory Rate 16 Blood Pressure 124/76 Height 180.3 cm Height 71 in Weight 108.4 kg Weight 238.48 lb BMI 33.35 What to do next Scheduled Follow-Up Appointments 2023 9:30 AM EDT With: Rodrigo Brink MD Where: [facility] Normal [address] [place] [address] [place] [address]- \.br\ Medications\.br\ What How Much When Instructions\.br\ Changed buPROPion (buPROPion 300 mg/ 24 hours ER Tab) 1 Tablets By Mouth Every 24 hours Pickup at [facility]/pharmacy #[id number]\.br\ Unchanged amlodipine (amLODIPine 5 mg Tab) 1 Tablets By Mouth Every day Pickup at [facility]/pharmacy #6177\.br\ Unchanged cetirizine (cetirizine 10 mg Tab) See instructions TAKE 1 TABLET BY MOUTH EVERY DAY Pickup at [facility]/pharmacy #6177\.br\ Unchanged ipratropium nasal (ipratropium Nasal 0.03% [place]) See instructions USE 2 SPRAYS IN EACH NOSTRIL 3 TIMES A DAY Pickup at [facility]/pharmacy #6177\.br\ Unchanged amitriptyline (amitriptyline 25 mg Tab) [...] if questions or concerns \.br\ Pharmacy Information\.br\ 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 This can be done either in [place] ([place] or metric measurements. Note that charts and online BMI calculators are available to help you find your BMI quickly and easily without having to do these calculations yourself.\.br\ To calculate your BMI in [place] ([place] measurements:\.br \ \.br\ 1. \.br\ Measure [...] Disease Control and Prevention: www.cdc.gov\.br\ ? \.br\ [place] Heart Association: www.heart.org\.br \ ? \.br\ National Heart, Lung, and Blood [place]: www.nhlbi.nih.gov \.br\ Summary\.br\ ? \.br\ Body mass index (BMI) is a number that is calculated from a person's weight and height.\.br\ ? \.br\ BMI may help estimate how much of a person's weight is composed of fat. BMI can help identify those who may be at higher risk for certain medical problems.\.br\ ? \.br\ BMI can be measured using [place]i measurements or metric measurements.\.br \ ? \.br\ BMI charts are used to identify whether you are underweight, normal weight, overweight, or obese.\.br\ This information is not intended to replace advice given to you by your health care provider. Make sure you discuss any questions you have with [facility] Family Medicine Office/Page Maguire 08-16-2023 Family Medicine [...] Daily, # 90 tab(s), Refills(s) 1, Pharmacy: [facility]/pharmacy #[id number], 180.3, cm, 08/16/23 13:16:00 EDT, Height/Length Dosing, 108.4, kg, 08/16/23 13:16:00 EDT, Weight Dosing buPROPion, 300 mg = 1 tab(s), Oral, q24hr, # 90 tab(s), Refills(s) 1, Pharmacy: [facility]/pharmacy #[id number], 180.3, cm, 08/16/23 13:16:00 EDT, Height/Length Dosing, 108.4, kg, 08/16/23 13:16:00 EDT, Weight Dosing cetirizine, See Instructions, TAKE 1 TABLET BY MOUTH EVERY DAY, # 90 tab(s), Refills(s) 1, Pharmacy: 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 Normal [facility] Comment on above: Result Comment: Elec [...] numbers. This can be done either in [place] ([place] or metric measurements. Note that charts and online BMI calculators are available to help you find your BMI quickly and easily without having to do these calculations yourself. To calculate your BMI in [place] ([place] measurements: 1. Measure your weight in [...] for Disease Control and Prevention: www.cdc.gov ? [place] Heart Association: www.heart.org ? National Heart, Lung, and Blood [place]: www.nhlbi.nih.gov Summary ? Body mass index (BMI) is a number that is calculated from a person's weight and height. ? BMI may help estimate how much of a person's weight is composed of fat. BMI can help identify those who may be at higher risk for certain medical problems. ? BMI can be measured using [place] measurements or metric measurements. ? BMI charts are used to identify whether you are underweight, normal weight, overweight, or obese. This information is not intended to replace advice given to you by your health care provider. Make sure you discuss any questions you have with your health care provider. Document Revised: 12/10/2019 Document Reviewed: 10/17/2019 [employer] Patient Education ? 2022 [employer]. [facility] Consultation Noteon 08-06-19 Consultation Note [id number]#1.00TIFF [facility] Monitor Recordon 08-02-2023 Monitor Record [id number]#1.00TIFF [facility] Lab Reportson 07-20-2023 Lab Reports [id number]#1.00TIFF [facility] Lab Reports [id number]#1.00TIFF [facility] Consultation Noteon 07-18-19 24 Consultation Note [id number]#1.00TIFF [facility] Operative Reporton 4 Operative Report [id number]#1.00TIFF Normal [facility] Consent for Treatmenton Consent for Treatment [id number]#1.00TIFF [facility] RAD - MRI Reporton RAD - MRI Report [id number]#1.00TIFF [facility] Insurance Correspondenceon 0 05-25-2023 Insurance Correspondence [id number]#1.00TIFF [facility] Ambulatory Visit Summaryon 0 05-17-2023 Ambulatory Visit Summary GLENDA BUCKLEY :1965 Visit Date:05/17/2023 Ambulatory Visit Instructions Your Diagnosis Essential hypertension Anxiety 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 Medicine Office/Clini c Noteon 05-17-2023 Family Medicine [...] 3074F 3. 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 Normal [facility] Comment on above: Result Comment: Elec [...] numbers. This can be done either in [place] ([place] or metric measurements. Note that charts and online BMI calculators are available to help you find your BMI quickly and easily without having to do these calculations yourself. To calculate your BMI in [place] ([place] measurements: 1. Measure your weight in [...] for Disease Control and Prevention: www.cdc.gov ? [place] Heart Association: www.heart.org ? National Heart, Lung, and Blood [place]: www.nhlbi.nih.gov Summary ? Body mass index (BMI) is a number that is calculated from a person's weight and height. ? BMI may help estimate how much of a person's weight is composed of fat. BMI can help identify those who may be at higher risk for certain medical problems. ? BMI can be measured using [place] measurements or metric measurements. ? BMI charts are used to identify whether you are underweight, normal weight, overweight, or obese. This information is not intended to replace advice given to you by your health care provider. Make sure you discuss any questions you have with your health care provider. Document Revised: 12/10/2019 Document Reviewed: 10/17/2019 [employer] Patient Education ? 2022 [employer] Normal [facility] EMG Electromyographyon 05-15 EMG Electromyography [id number]#1.00TIFF Normal [facility] Consultation Noteon 03-21-20 Consultation Note [id number]#1.00TIFF Normal [facility] RAD - MISCon 03-21-2023 RAD - MISC [id number] [id number]#1.00TIFF Normal [facility] Ambulatory Visit Summaryon 1 05-13-2022 Ambulatory [...] Tab) fluticasone nasal (fluticasone Nasal 0.05 mg/inh [place]) gabapentin (gabapentin 300 mg Cap) ipratropium nasal (ipratropium Nasal 0.03% [place]) ixekizumab (Taltz Autoinjector 80 mg/mL subcutaneous solution) sildenafil (sildenafil 25 mg Tab) Procedures Performed Appendectomy, CABG (Coronary artery bypass grafting) planned, Inguinal hernia. 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\.br\ Contusion\.br\ COVID-19\.br\ [...] for choosing us for your care.\.br\ \.br\ [facility] Nurse Consultation Noteon Nurse Consultation Note [...] Oral, TID, PRN fluticasone Nasal 0.05 mg/inh [place], See Instructions gabapentin 300 mg Cap, See Instructions ipratropium Nasal 0.03% [place], See Instructions sildenafil 25 mg Tab, 25 [...] Covid POC: Positive (03/12/23 09:05:00) Normal [facility] Provider Letteron 03-12-2023 Provider Letter March 12, 2023 [place] [address] : 1965 To Whom It May Concern, Please excuse above patient from work. Date of Illness: From: 03.12.2023 To: 03.16.2023 May Return to Work On: 03.19.2023 Comments: Post covid symptoms Sincerely, Yakelin Santiago, [employer] [address] [address] [facility] Consultation Noteon 03-08-20 Consultation Note [id number]#1.00TIFF [facility] Provider Letteron 03-06-2023 Provider Letter March 06, 2023 GLENDA [place] [address] : 1965 To Whom It May Concern, Please excuse above patient from work. Date of Illness: From: 03.05.2023 To: 03.12.2023 May Return to Work On: 03.13.2023 Comments: Patient is off due to illness. Sincerely, Rodrigo Brink MD [place] [id number] [facility] Family Medicine Office/Clini c Noteon 03-05-2023 Family [...] day(s), # 6 tab(s), Refills(s) 0, Pharmacy: [facility]/pharmacy #[id number], 180.3, cm, 03/05/23 14:04:00 EST, Height/Length Dosing, 102, kg, 03/05/23 14:04:00 EST, Weight Dosing benzonatate, 200 mg = 1 cap(s), Oral, TID, X 7 day(s), # 21 cap(s), Refills(s) 0, Pharmacy: [facility]/pharmacy #[id number], 180.3, cm, 03/05/23 14:04:00 EST, Height/Length Dosing, 102, kg, 03/05/23 14:04:00 EST, Weight Dosing methylPREDNISolone , = 1 packet(s), Oral, As Directed, as directed on package labeling, X 6 day(s), # 21 tab(s), Refills(s) 0, Pharmacy: [facility]/pharmacy #[id number], 180.3, cm, 03/05/23 14:04:00 EST, Height/Length Dosing, 102, kg, 03/05/23 14:04:00 EST, Weight Dosing Body Mass Index (BMI) documented 3008F Current tobacco non-user 1036F Depression Screening Negative 3352F Influenza immunization administered or previously received 4274F Influenza Type A&B POC 07228 Most recent diastolic blood pressure <80 mm Hg 3078F Rapid COVID POC 69036 Systolic BP <130 mm Hg (Most Recent) 3074F 2. BMI 31.0-31.9,adult (Z68.31: Body mass index [BMI] 31.0-31.9, adult) - BMI education uploaded to the portal Ordered: azithromycin, = 1 packet(s), Oral, As Directed, as directed on package labeling, X 5 day(s), # 6 tab(s), Refills(s) 0, [id number] 180.3, cm, 03/05/23 14:04:00 EST, Height/Length Dosing, 102, kg, 03/05/23 14:04:00 EST, Weight Dosing benzonatate, 200 mg = 1 cap(s), Oral, TID, X 7 day(s), # 21 cap(s), Refills(s) 0, [id number], 180.3, cm, 03/05/23 14:04:00 EST, Height/Length Dosing, 102, kg, 03/05/23 14:04:00 EST, Weight Dosing methylPREDNISolone , = 1 packet(s), Oral, As Directed, as directed on package labeling, X 6 day(s), # 21 tab(s), Refills(s) 0, [facility], 180.3, cm, 03/05/23 14:04:00 EST, [...] day(s), # 6 tab(s), Refills(s) 0, [id number], 180.3, cm, 03/05/23 14:04:00 EST, Height/Length Dosing, 102, kg, 03/05/23 14:04:00 EST, Weight Dosing benzonatate, 200 mg = 1 cap(s), Oral, TID, X 7 day(s), # 21 cap(s), Refills(s) 0, [id number], 180.3, cm, 03/05/23 14:04:00 EST, Height/Length Dosing, 102, kg, 03/05/23 14:04:00 EST, Weight Dosing methylPREDNISolone , = 1 packet(s), Oral, As Directed, as directed on package labeling, X 6 day(s), # 21 tab(s), Refills(s) 0, Pharmacy: [facility]/pharmacy #[id number], 180.3, cm, 03/05/23 14:04:00 EST, Height/Length [...] dependence) Orde (more content not included)... Normal [facility] Comment on above: Result Comment: Elec [...] numbers. This can be done either in [place] or metric measurements. Note that charts and online BMI calculators are available to help you find your BMI quickly and easily without having to do these calculations yourself. To calculate your BMI in [place] ([place] measurements: 1. Measure your weight in [...] for Disease Control and Prevention: www.cdc.gov ? [place] Heart Association: www.heart.org ? National Heart, Lung, and Blood [place]: www.nhlbi.nih.gov Summary ? Body mass index (BMI) is a number that is calculated from a person's weight and height. ? BMI may help estimate how much of a person's weight is composed of fat. BMI can help identify those who may be at higher risk for certain medical problems. ? BMI can be measured using [place] measurements or metric measurements. ? BMI charts are used to identify whether you are underweight, normal weight, overweight, or obese. This information is not intended to replace advice given to you by your health care provider. Make sure you discuss any questions you have with your health care provider. Document Revised: 12/10/2019 Document Reviewed: 10/17/2019 [employer] Patient Education ? 2022 [employer]. Nutrition BMI for Adults What is BMI? [...] may be (more content not included)... Normal [facility] Ambulatory Visit Summaryon 04-17-2022 Ambulatory Visit Summary [...] Tab) fluticasone nasal (fluticasone Nasal 0.05 mg/inh [place]) gabapentin (gabapentin 300 mg Cap) ipratropium nasal (ipratropium Nasal 0.03% [place]) ixekizumab (Taltz Autoinjector 80 mg/mL subcutaneous solution) [...] MASON, Yusuf Cortés Where: [facility] [place] [id number] \.br\ Medications\.br\ What How Much When Instructions\.br\ [...] fluticasone nasal (fluticasone Nasal 0.05 mg/ inh [place]) See instructions SPRAY 2 SPRAYS INTO EACH NOSTRIL DAILY \.br\ Unchanged gabapentin (gabapentin 300 mg Cap) See instructions TAKE 1 CAPSULE BY MOUTH TWICE A DAY \.br\ Unchanged ipratropium nasal (ipratropium Nasal 0.03% [place]) See instructions USE 2 SPRAYS IN EACH [...] Anemia\.br\ Anxiety\.br\ Atherosclerotic heart disease of [place] coronary artery with angina pectoris\.br\ Contusion\.br\ Essential [...] choosing us for your care.\.br\ \.br\ [facility] Medicine Office/Clini c Noteon 02-15-2023 [...] DAY, # 90 tab(s), Refills(s) 0, Pharmacy: [facility]/pharmacy #[id number], 180.3, cm, 02/15/23 11:32:00 EST, Height/Length Dosing, 105.8, kg, 02/15/23 11:32:00 EST, Weight Dosing gabapentin, See Instructions, TAKE 1 CAPSULE BY MOUTH TWICE A DAY, # 180 cap(s), Refills(s) 0, Pharmacy: [facility]/pharmacy #[id number], 180.3, cm, 02/15/23 11:32:00 EST, Height/Length Dosing, 105.8, kg, 02/15/23 11:32:00 EST, Weight Dosing Follow-up No qualifying data available Problem List/Past Medical History Ongoing Allergic rhinitis Anemia Anxiety Atherosclerotic heart disease of [place] coronary artery with angina pectoris Contusion Essential [...] 10 mg= 1 (more content not included)... [facility] Comment on above: Result Comment: Elec tronically Signed By: Murali MASON, Rodrigo Manning.br\Date and Time Signed: 02/15/23 12:29 EST RAD - MISCon 01-24-2023 RAD - MISC [id number]#1.00TIFF [facility] [place] [facility] 01-17-2023 Lab Reports [id number]#1.00TIFF [facility] [place] [facility] 01-16-2023 Lab Reports [id number]#1.00TIFF [facility] [place] Lab Reports [id number]#1.00TIFF [facility] [place] CHEMISTRYOrdered By: SYSTEM SYSTEM on 10-31-2022 25-hydroxyvitamin [...] 6.5 E9/L Normal 4.0 - 11.0 E9/L [facility] [place] CBC AUTO DIFFon 07-29-2022 BASO # 0.0 103/ul Normal 0.0-0.1 [facility] Comment on above: Performed By: #### C BC #### [facility] [address] [address] [address] Roosevelt Verde Basophils/100 WBC (Bld) 0.4 % Normal 0.2-2.0 [facility] Comment on above: Performed By: #### C BC #### [facility] [address] [address] [address] Roosevelt Verde EO # 0.0 103/ul Normal 0.0-0.7 [facility] Comment on above: Performed By: #### C BC #### [facility] [address] [address] [address] Roosevelt Verde Eosinophils/100 WBC (Bld) 0.4 % Critically low 0.9-7.0 [facility] Comment on above: Performed By: #### C BC #### [facility] [address] [address] [address] Roosevelt Verde Erythrocyte distribution width (RBC) [Ratio] 13.3 % Normal 11.0-15.0 [facility] Comment on above: Performed By: #### C BC #### [facility] [address] [place] [address] Dr. Roosevelt Verde Hematocrit (Bld) [Volume fraction] 42.9 % Normal 42.0-54.0 [facility] Comment on above: Performed By: #### C BC #### [facility] [address] [place] [address] Dr. Roosevelt Verde Hemoglobin (Bld) [Mass/Vol] 13.9 g/dL Critically low 14.0-18.0 [facility] Comment on above: Performed By: #### C BC #### [facility] [address] [place] [address] Dr. Roosevelt Verde IG # 0.02 10e3/ul Normal 0.00-0.03 [facility] Comment on above: Performed By: #### C BC #### [facility] [address] [place] [address] Dr. Roosevelt Verde IG % 0.2 % Normal 0.0-0.5 [facility] Comment on above: Performed By: #### C BC #### [facility] [address] [place] [address] Dr. Roosevelt Verde LYMPH # 1.1 103/ul Critically low 1.2-3.8 [facility] Comment on above: Performed By: #### C BC #### [facility] [address] [place] [address] Dr. Roosevelt Verde Lymphocytes/100 WBC (Bld) 13.5 % Critically low 20.5-60.0 [facility] Comment on above: Performed By: #### C BC #### [facility] [address] [place] [address] Dr. Roosevelt Verde MANUAL DIFF REQ NO Normal [facility] Comment on above: Performed By: #### C BC #### [facility] [address] [place] [address] Dr. Roosevelt Verde MCH (RBC) [Entitic mass] 34.6 pg Critically high 25.9-34.0 [facility] Comment on above: Performed By: #### C BC #### [facility] [address] [address] [address] Roosevelt Verde MCHC (RBC) [Mass/Vol] 32.4 g/dL Normal 29.9-35.2 [facility] Comment on above: Performed By: #### C BC #### [facility] [address] [address] [address] Roosevelt Verde MCV (RBC) [Entitic vol] 106.7 fL Critically high 80.0-94.0 [facility] Comment on above: Performed By: #### C BC #### [facility] [address] [address] [address] Roosevelt Verde MONO # 0.6 103/ul Normal 0.3-0.8 [facility] Comment on above: Performed By: #### C BC #### [facility] [address] [address] [address] Roosevelt Verde Monocytes/100 WBC (Bld) 7.6 % Normal 1.7-12.0 [facility] Comment on above: Performed By: #### C BC #### [facility] [address] [address] [address] Roosevelt Verde NEUT # 6.3 103/ul Normal 1.4-6.5 [facility] Comment on above: Performed By: #### C BC #### [facility] [address] [address] [address] Roosevelt Verde Neutrophils/100 WBC (Bld) 77.9 % Critically high 43.0-75.0 [facility] Comment on above: Performed By: #### C BC #### [facility] [address] [address] [address] Roosevelt Verde Platelet mean volume (Bld) [Entitic vol] 9.4 fL Critically low 9.5-13.5 [facility] Comment on above: Performed By: #### C BC #### [facility] [address] [address] [address] Roosevelt Verde PLT 315 103/ul Normal 150-450 [facility] Comment on above: Performed By: #### C BC #### [facility] [address] [address] [address] Roosevelt Verde RBC 4.02 106/ul Critically low 4.70-6.10 [facility] Comment on above: Performed By: #### C BC #### [facility] [address] [place] [address] Dr. Roosevelt Verde WBC 8.1 103/ul Normal 4.0-11.0 [facility] Comment on above: Performed By: #### C BC #### [facility] [address] [place] [address] Dr. Roosevelt Verde CRPon 07-29-2022 CRP 4.4 mg/dL Critically high <=1.0 [facility] Comment on above: Performed By: #### C BC #### [facility] [address] [place] [address] Dr. Roosevelt Verde MYOGLOBINon 07-29-2022 FISH 33 ng/mL Normal 16-96 [facility] Comment on above: Performed By: #### C BC #### [facility] [address] [place] [address] Dr. Roosevelt Verde PROF 14(COMP METB)on 023 Albumin [Mass/Vol] 3.8 g/dL Normal 3.4-5.0 [facility] Comment on above: Performed By: #### C BC #### [facility] [address] [place] [address] Dr. Roosevelt Verde Albumin/Globulin [Mass ratio] 1.0 {ratio} Normal [facility] Comment on above: Performed By: #### C BC #### [facility] [address] [place] [address] Dr. Roosevelt Verde ALP [Catalytic activity/Vol] 83 U/L Normal 46-116 [facility] Comment on above: Performed By: #### C BC #### [facility] [address] [place] [address] Dr. Roosevelt Verde ALT [Catalytic activity/Vol] 36 U/L Normal 16-63 [facility] Comment on above: Performed By: #### C BC #### [facility] [address] [address] [address] Roosevelt Verde Anion gap [Moles/Vol] 11.9 mmol/L Normal [facility] Comment on above: Performed By: #### C BC #### [facility] [address] [address] [address] Roosevelt Verde AST [Catalytic activity/Vol] 13 U/L Critically low 15-37 [facility] Comment on above: Performed By: #### C BC #### [facility] [address] [address] [address] Roosevelt Verde Bilirubin [Mass/Vol] 0.6 mg/dL Normal 0.2-1.0 [facility] Comment on above: Performed By: #### C BC #### [facility] [address] [place] [address] Dr. Roosevelt Verde Calcium [Mass/Vol] 8.6 mg/dL Normal 8.5-10.1 [facility] Comment on above: Performed By: #### C BC #### [facility] [address] [address] [address] Roosevelt Verde Chloride [Moles/Vol] 106 mmol/L Normal 98-107 [facility] Comment on above: Performed By: #### C BC #### [facility] [address] [address] [address] Roosevelt Verde CO2 [Moles/Vol] 25.8 mmol/L Normal 21.0-32.0 [facility] Comment on above: Performed By: #### C BC #### [facility] [address] [place] [address] Dr. Roosevelt Verde Creatinine [Mass/Vol] 1.52 mg/dL Critically high 0.70-1.30 [facility] Comment on above: Performed By: #### C BC #### [facility] [address] [address] [address] Roosevelt Verde EGFR-AF KOSOVAN 58 mL/min/1.73m2 Critically low >=60 [facility] Comment on above: Performed By: #### C BC #### [facility] [address] [address] [address] Roosevelt Verde EGFR-NON AF KOSOVAN 48 mL/min/1.73m2 Critically low >=60 [facility] Comment on above: Performed By: #### C BC #### [facility] [address] [place] [address] Dr. Roosevelt Verde Globulin (S) [Mass/Vol] 3.7 g/dL Normal [facility] Comment on above: Performed By: #### C BC #### [facility] [address] [address] [address] Roosevelt Verde Glucose [Mass/Vol] 123 mg/dL Critically high 74-106 [facility] Comment on above: Performed By: #### C BC #### [facility] [address] [place] [address] Dr. Roosevelt Verde Potassium [Moles/Vol] 4.7 mmol/L Normal 3.5-5.1 [facility] Comment on above: Performed By: #### C BC #### [facility] [address] [place] [address] Dr. Roosevelt Verde Protein [Mass/Vol] 7.5 g/dL Normal 6.4-8.2 [facility] Comment on above: Performed By: #### C BC #### [facility] [address] [place] [address] Dr. Roosevelt Verde Sodium [Moles/Vol] 139 mmol/L Normal 136-145 [facility] Comment on above: Performed By: #### C BC #### [facility] [address] [place] [address] Dr. Roosevelt Verde Urea nitrogen [Mass/Vol] 22.0 mg/dL Critically high 7.0-18.0 [facility] Comment on above: Performed By: #### C BC #### [facility] [address] [place] [address] Dr. Roosevelt Verde Urea nitrogen/Creatinine [Mass ratio] 14.5 mg/mg Normal [facility] Comment on above: Performed By: #### C BC #### [facility] [address] [place] [address] Dr. Roosevelt Verde SED RATE WESTERGREN 2022 SED RATE 32 mm/hr Critically high <=20 [facility] Comment on above: Performed By: #### C BC #### [facility] [address] [address] [address] Roosevelt Verde CBC AUTO DIFFon 07-20-2022 BASO # 0.0 103/ul Normal 0.0-0.1 [facility] Comment on above: Performed By: #### C BC #### [facility] [address] [place] [address] Dr. Roosevelt Verde Basophils/100 WBC (Bld) 0.5 % Normal 0.2-2.0 [facility] Comment on above: Performed By: #### C BC #### [facility] [address] [place] [address] Dr. Roosevelt Verde EO # 0.0 103/ul Normal 0.0-0.7 [facility] Comment on above: Performed By: #### C BC #### [facility] [address] [place] [address] Dr. Roosevelt Verde Eosinophils/100 WBC (Bld) 0.5 % Critically low 0.9-7.0 [facility] Comment on above: Performed By: #### C BC #### [facility] [address] [place] [address] Dr. Roosevelt Verde Erythrocyte distribution width (RBC) [Ratio] 13.1 % Normal 11.0-15.0 [facility] Comment on above: Performed By: #### C BC #### [facility] [address] [place] [address] Dr. Roosevelt Verde Hematocrit (Bld) [Volume fraction] 39.2 % Critically low 42.0-54.0 [facility] Comment on above: Performed By: #### C BC #### [facility] [address] [place] [address] Dr. Roosevelt Verde Hemoglobin (Bld) [Mass/Vol] 12.7 g/dL Critically low 14.0-18.0 [facility] Comment on above: Performed By: #### C BC #### [facility] [address] [place] [address] Dr. Roosevelt Verde IG # 0.03 10e3/ul Normal 0.00-0.03 [facility] Comment on above: Performed By: #### C BC #### [facility] [address] [place] [address] Dr. Roosevelt Verde IG % 0.4 % Normal 0.0-0.5 [facility] Comment on above: Performed By: #### C BC #### [facility] [address] [place] [address] Dr. Roosevelt Verde LYMPH # 1.6 103/ul Normal 1.2-3.8 [facility] Comment on above: Performed By: #### C BC #### [facility] [address] [place] [address] Dr. Roosevelt Verde Lymphocytes/100 WBC (Bld) 21.7 % Normal 20.5-60.0 [facility] Comment on above: Performed By: #### C BC #### [facility] [address] [place] [address] Dr. Roosevelt Verde MANUAL DIFF REQ NO Normal [facility] Comment on above: Performed By: #### C BC #### [facility] [address] [place] [address] Dr. Roosevelt Verde MCH (RBC) [Entitic mass] 34.0 pg Normal 25.9-34.0 [facility] Comment on above: Performed By: #### C BC #### [facility] [address] [place] [address] Dr. Roosevelt Verde MCHC (RBC) [Mass/Vol] 32.4 g/dL Normal 29.9-35.2 [facility] Comment on above: Performed By: #### C BC #### [facility] [address] [place] [address] Dr. Roosevelt Verde MCV (RBC) [Entitic vol] 104.8 fL Critically high 80.0-94.0 [facility] Comment on above: Performed By: #### C BC #### [facility] [address] [place] [address] Dr. Roosevelt Verde MONO # 0.6 103/ul Normal 0.3-0.8 [facility] Comment on above: Performed By: #### C BC #### [facility] [address] [place] [address] Dr. Roosevelt Verde Monocytes/100 WBC (Bld) 8.2 % Normal 1.7-12.0 [facility] Comment on above: Performed By: #### C BC #### [facility] [address] [place] [address] Dr. Roosevelt Verde NEUT # 5.1 103/ul Normal 1.4-6.5 [facility] Comment on above: Performed By: #### C BC #### [facility] [address] [place] [address] Dr. Roosevelt Verde Neutrophils/100 WBC (Bld) 68.7 % Normal 43.0-75.0 [facility] Comment on above: Performed By: #### C BC #### [facility] [address] [place] [address] Dr. Roosevelt Verde Platelet mean volume (Bld) [Entitic vol] 9.2 fL Critically low 9.5-13.5 [facility] Comment on above: Performed By: #### C BC #### [facility] [address] [place] [address] Dr. Roosevelt Verde PLT 286 103/ul Normal 150-450 [facility] Comment on above: Performed By: #### C BC #### [facility] [address] [place] [address] Dr. Roosevelt Verde RBC 3.74 106/ul Critically low 4.70-6.10 [facility] Comment on above: Performed By: #### C BC #### [facility] [address] [place] [address] Dr. Roosevelt Verde WBC 7.5 103/ul Normal 4.0-11.0 [facility] Comment on above: Performed By: #### C BC #### [facility] [address] [place] [address] Dr. Roosevelt Verde CREATININEon 07-20-2022 Creatinine [Mass/Vol] 1.53 mg/dL Critically high 0.70-1.30 [facility] Comment on above: Performed By: #### C QUE, CRP, ALT, AST #### [facility] [address] [place] [address] Dr. Roosevelt Verde EGFR-AF KOSOVAN 57 mL/min/1.73m2 Critically low >=60 [facility] Comment on above: Performed By: #### C QUE, CRP, ALT, AST #### [facility] [address] [address] [address] Roosevelt Verde EGFR-NON AF KOSOVAN 47 mL/min/1.73m2 Critically low >=60 [facility] Comment on above: Performed By: #### C QUE, CRP, ALT, AST #### [facility] [address] [place] [address] Dr. Roosevelt Verde CRPon 07-20-2022 CRP [Mass/Vol] mg/L Normal <=1.0 [facility] Comment on above: Performed By: #### C QUE, CRP, ALT, AST #### [facility] [address] [place] [address] Dr. Roosevelt Verde SED RATE WESTERGRENon 2022 SED RATE 9 mm/hr Normal <=20 [facility] Comment on above: Performed By: #### C BC #### [facility] [address] [place] [address] Dr. Roosevelt Verde SGOTon 07-20-2022 AST [Catalytic activity/Vol] 18 U/L Normal 15-37 [facility] Comment on above: Performed By: #### C QUE, CRP, ALT, AST #### [facility] [address] [place] [address] Dr. Roosevelt Verde SGPTon 07-20-2022 ALT [Catalytic activity/Vol] 44 U/L Normal 16-63 [facility] Comment on above: Performed By: #### C QUE, CRP, ALT, AST #### [facility] [address] [place] [address] Dr. Roosevelt Verde CBC AUTO DIFFon 05-23-2022 BASO # 0.1 103/ul Normal 0.0-0.1 [facility] Comment on above: Performed By: #### C BC #### [facility] [address] [place] [address] Dr. Roosevelt Verde Basophils/100 WBC (Bld) 0.5 % Normal 0.2-2.0 [facility] Comment on above: Performed By: #### C BC #### [facility] [address] [place] [address] Dr. Roosevelt Verde EO # 0.1 103/ul Normal 0.0-0.7 [facility] Comment on above: Performed By: #### C BC #### [facility] [address] [place] [address] Dr. Roosevelt Verde Eosinophils/100 WBC (Bld) 0.6 % Critically low 0.9-7.0 [facility] Comment on above: Performed By: #### C BC #### [facility] [address] [place] [address] Dr. Roosevelt Verde Erythrocyte distribution width (RBC) [Ratio] 14.0 % Normal 11.0-15.0 [facility] Comment on above: Performed By: #### C BC #### [facility] [address] [place] [address] Dr. Roosevelt Verde Hematocrit (Bld) [Volume fraction] 37.3 % Critically low 42.0-54.0 [facility] Comment on above: Performed By: #### C BC #### [facility] [address] [place] [address] Dr. Roosevelt Verde Hemoglobin (Bld) [Mass/Vol] 12.2 g/dL Critically low 14.0-18.0 [facility] Comment on above: Performed By: #### C BC #### [facility] [address] [place] [address] Dr. Roosevelt Verde IG # 0.03 10e3/ul Normal 0.00-0.03 [facility] Comment on above: Performed By: #### C BC #### [facility] [address] [place] [address] Dr. Roosevelt Verde IG % 0.3 % Normal 0.0-0.5 [facility] Comment on above: Performed By: #### C BC #### [facility] [address] [place] [address] Dr. Roosevelt Verde LYMPH # 1.6 103/ul Normal 1.2-3.8 [facility] Comment on above: Performed By: #### C BC #### [facility] [address] [place] [address] Dr. Roosevelt Verde Lymphocytes/100 WBC (Bld) 16.5 % Critically low 20.5-60.0 [facility] Comment on above: Performed By: #### C BC #### [facility] [address] [place] [address] Dr. Roosevelt Verde MANUAL DIFF REQ NO Normal [facility] Comment on above: Performed By: #### C BC #### [facility] [address] [place] [address] Dr. Roosevelt Verde MCH (RBC) [Entitic mass] 35.1 pg Critically high 25.9-34.0 [facility] Comment on above: Performed By: #### C BC #### [facility] [address] [place] [address] Dr. Roosevelt Verde MCHC (RBC) [Mass/Vol] 32.7 g/dL Normal 29.9-35.2 [facility] Comment on above: Performed By: #### C BC #### [facility] [address] [place] [address] Dr. Roosevelt Verde MCV (RBC) [Entitic vol] 107.2 fL Critically high 80.0-94.0 [facility] Comment on above: Result Comment: 1+ m acrocytosis Performed By: #### C BC #### [facility] [address] [place] [address] Dr. Roosevelt Verde MONO # 0.7 103/ul Normal 0.3-0.8 [facility] Comment on above: Performed By: #### C BC #### [facility] [address] [place] [address] Dr. Roosevelt Verde Monocytes/100 WBC (Bld) 7.6 % Normal 1.7-12.0 [facility] Comment on above: Performed By: #### C BC #### [facility] [address] [address] [address] Roosevelt Verde NEUT # 7.0 103/ul Critically high 1.4-6.5 [facility] Comment on above: Performed By: #### C BC #### [facility] [address] [address] [address] Roosevelt Verde Neutrophils/100 WBC (Bld) 74.5 % Normal 43.0-75.0 [facility] Comment on above: Performed By: #### C BC #### [facility] [address] [address] [address] Roosevelt Verde Platelet mean volume (Bld) [Entitic vol] 9.2 fL Critically low 9.5-13.5 [facility] Comment on above: Performed By: #### C BC #### [facility] [address] [address] [address] Roosevelt Verde PLT 296 103/ul Normal 150-450 [facility] Comment on above: Performed By: #### C BC #### [facility] [address] [place] [address] Dr. Roosevelt Verde RBC 3.48 106/ul Critically low 4.70-6.10 [facility] Comment on above: Performed By: #### C BC #### [facility] [address] [address] [address] Roosevelt Verde WBC 9.4 103/ul Normal 4.0-11.0 [facility] Comment on above: Performed By: #### C BC #### [facility] [id number] Roosevelt Verde CREATININEon 05-23-2022 Creatinine [Mass/Vol] 1.33 mg/dL Critically high 0.70-1.30 [facility] Comment on above: Performed By: #### A ST, CREA, CRP, ALT ####[facility] [id number] [address]Dr[address] Roosevelt Verde EGFR-AF KOSOVAN >60 Normal >=60 [facility] Comment on above: Performed By: #### A ST, CREA, CRP, ALT ####[facility] [id number] [address]Dr. Roosevelt Verde EGFR-NON AF KOSOVAN 56 mL/min/1.73m2 Critically low >=60 [facility] Comment on above: Performed By: #### A ST, CREA, CRP, ALT ####[facility] [id number] [place], [place] [address]Dr. Roosevelt Verde CRPon 05-23-2022 CRP 0.3 mg/dL Normal <=1.0 [facility] Comment on above: Performed By: #### A ST, CREA, CRP, ALT ####[facility] [id number] [place], [place] [address]Dr. Roosevelt Verde SED RATE WESTERGRENon 2022 SED RATE 11 mm/hr Normal <=20 [facility] Comment on above: Performed By: #### S EDR ####[facility] [id number] [place], [place] [address]Dr. Roosevelt Verde SGOTon 05-23-2022 AST [Catalytic activity/Vol] 20 U/L Normal 15-37 [facility] Comment on above: Performed By: #### A ST, CREA, CRP, ALT ####[facility] [id number] [place], [place] [address]Dr. Roosevelt Verde SGPTon 05-23-2022 ALT [Catalytic activity/Vol] 36 U/L Normal 16-63 [facility] Comment on above: Performed By: #### A ST, CREA, CRP, ALT ####[facility] [id number] [place], [place] [address]Dr. Roosevelt Verde QUANTIFERON TB GOLD PLUSon 1 05-24-2021 QuantiFERON Criteria Comment Normal [facility] Comment on above: Result Comment: [place] tiFERON-TB [...] test. Performed By: #### C BC #### [facility] [address] [place] [address] Dr. Roosevelt Verde QuantiFERON Incubation Incubation performed. Normal [facility] Comment on above: Performed By: #### C BC #### [facility] [address] [place] [address] Dr. Roosevelt Verde QuantiFERON Mitogen Value 2.17 IU/mL Normal [facility] Comment on above: Performed By: #### C BC #### [facility] [address] [place] [address] Dr. Roosevelt Verde QuantiFERON Nil Value 0.03 IU/mL Normal [facility] Comment on above: Performed By: #### C BC #### [facility] Laboratory [address] [place] [address] Dr. Roosevelt Verde QuantiFERON TB1 Ag Value 0.04 IU/mL Normal [facility] Comment on above: Performed By: #### C BC #### [facility] [address] [place] [address] Dr. Roosevelt Verde QuantiFERON TB2 Ag Value 0.03 IU/mL Normal [facility] Comment on above: Performed By: #### C BC #### [facility] [address] [place] [address] Dr. Roosevelt Verde QuantiFERON-TB Gold Plus Negative Normal Negative [facility] Comment on above: Result Comment: No r esponse to M tuberculosis antigens detected. Infection with M tuberculosis is unlikely, but high risk individuals should be considered for additional testing (ATS/IDSA/CDC Clinical Practice Guidelines, 2017). The reference range is an Antigen minus Nil result of <0.35 IU/mL. Chemiluminescence immunoassay methodology Performed By: #### C BC #### [facility] [address] [place] [address] Dr. Roosevelt Verde HEP B SURFACE ANTIGEN SCREEN on 03-22-2022 HBsAg Screen Negative Normal Negative [facility] Comment on above: Performed By: #### H BSANS ####[facility] [address] [place] [id number]. Roosevelt Verde HEPATITIS C ANTIBODYon 03-22 Hep C Virus Ab <0.1 Normal 0.0-0.9 [facility] Comment on above: Result Comment: Nega tive: [...] Hepatitis C Virus (HCV) RNA, Diagnosis, DAVON (282948) and Hepatitis C Virus (HCV) Antibody with reflex to Quantitative Real-time PCR ([id number]). Performed By: #### H CV ####[facility] [address] [place] [address]DrMichael Verde HIV 1 AND 2 WITH REFLEXon HIV Screen 4th Generation wRfx Non-Reactive Normal Non Reactive [facility] Comment on above: Result Comment: HIV Negative HIV-1/HIV-2 antibodies and HIV-1 p24 antigen were NOT detected. There is no laboratory evidence of HIV infection. Performed By: #### C BC #### [facility] [address] [place] [address] Dr. Roosevelt Verde CBC AUTO DIFFon 03-21-2022 BASO # 0.0 103/ul Normal 0.0-0.1 [facility] Comment on above: Performed By: #### C BC #### [facility] [address] [place] [address] Dr. Roosevelt Verde Basophils/100 WBC (Bld) 0.3 % Normal 0.2-2.0 [facility] Comment on above: Performed By: #### C BC #### [facility] [address] [place] [address] Dr. Roosevelt Verde EO # 0.1 103/ul Normal 0.0-0.7 [facility] Comment on above: Performed By: #### C BC #### [facility] [address] [place] [address] Dr. Roosevelt Verde Eosinophils/100 WBC (Bld) 1.1 % Normal 0.9-7.0 [facility] Comment on above: Performed By: #### C BC #### [facility] [address] [place] [address] Dr. Roosevelt Verde Erythrocyte distribution width (RBC) [Ratio] 14.6 % Normal 11.0-15.0 [facility] Comment on above: Performed By: #### C BC #### [facility] [address] [place] [address] Dr. Roosevelt Verde Hematocrit (Bld) [Volume fraction] 34.7 % Critically low 42.0-54.0 [facility] Comment on above: Performed By: #### C BC #### [facility] [address] [place] [address] Dr. Roosevelt Verde Hemoglobin (Bld) [Mass/Vol] 11.4 g/dL Critically low 14.0-18.0 [facility] Comment on above: Performed By: #### C BC #### [facility] [address] [place] [address] Dr. Roosevelt Verde IG # 0.02 10e3/ul Normal 0.00-0.03 [facility] Comment on above: Performed By: #### C BC #### [facility] [address] [place] [address] Dr. Roosevelt Verde IG % 0.3 % Normal 0.0-0.5 [facility] Comment on above: Performed By: #### C BC #### [facility] [address] [place] [address] Dr. Roosevelt Verde LYMPH # 1.1 103/ul Critically low 1.2-3.8 [facility] Comment on above: Performed By: #### C BC #### [facility] [address] [place] [address] Dr. Roosevelt Verde Lymphocytes/100 WBC (Bld) 16.9 % Critically low 20.5-60.0 [facility] Comment on above: Performed By: #### C BC #### [facility] [address] [place] [address] Dr. Roosevelt Verde MANUAL DIFF REQ NO Normal [facility] Comment on above: Performed By: #### C BC #### [facility] [address] [place] [address] Dr. Roosevelt Verde MCH (RBC) [Entitic mass] 33.8 pg Normal 25.9-34.0 [facility] Comment on above: Performed By: #### C BC #### [facility] [address] [place] [address] Dr. Roosevelt Verde MCHC (RBC) [Mass/Vol] 32.9 g/dL Normal 29.9-35.2 [facility] Comment on above: Performed By: #### C BC #### [facility] [address] [place] [address] Dr. Roosevelt Verde MCV (RBC) [Entitic vol] 103.0 fL Critically high 80.0-94.0 [facility] Comment on above: Performed By: #### C BC #### [facility] [address] [place] [address] Dr. Roosevelt Verde MONO # 0.6 103/ul Normal 0.3-0.8 [facility] Comment on above: Performed By: #### C BC #### [facility] [address] [place] [address] Dr. Roosevelt Verde Monocytes/100 WBC (Bld) 9.8 % Normal 1.7-12.0 [facility] Comment on above: Performed By: #### C BC #### [facility] [address] [place] [address] Dr. Roosevelt Verde NEUT # 4.6 103/ul Normal 1.4-6.5 [facility] Comment on above: Performed By: #### C BC #### [facility] [address] [place] [address] Dr. Roosevelt Verde Neutrophils/100 WBC (Bld) 71.6 % Normal 43.0-75.0 [facility] Comment on above: Performed By: #### C BC #### [facility] [address] [place] [address] Dr. Roosevelt Verde Platelet mean volume (Bld) [Entitic vol] 9.6 fL Normal 9.5-13.5 [facility] Comment on above: Performed By: #### C BC #### [facility] [address] [address] [address] Roosevelt Verde PLT 327 103/ul Normal 150-450 [facility] Comment on above: Performed By: #### C BC #### [facility] [address] [address] [address] Roosevelt Verde RBC 3.37 106/ul Critically low 4.70-6.10 [facility] Comment on above: Performed By: #### C BC #### [facility] [address] [address] [address] Roosevelt Verde WBC 6.5 103/ul Normal 4.0-11.0 [facility] Comment on above: Performed By: #### C BC #### [facility] [address] [place] [address] Dr. Roosevelt Verde CREATININEon 03-21-2022 Creatinine [Mass/Vol] 2.19 mg/dL Critically high 0.70-1.30 [facility] Comment on above: Performed By: #### C BC #### [facility] [address] [place] [address] Dr. Roosevelt Verde EGFR-AF KOSOVAN 38 mL/min/1.73m2 Critically low >=60 [facility] Comment on above: Performed By: #### C BC #### [facility] [address] [place] [address] Dr. Roosevelt Verde EGFR-NON AF KOSOVAN 31 mL/min/1.73m2 Critically low >=60 [facility] Comment on above: Performed By: #### C BC #### [facility] [address] [address] [address] Roosevelt Verde CRPon 03-21-2022 CRP 0.4 mg/dL Normal <=1.0 [facility] Comment on above: Performed By: #### C BC #### [facility] [address] [address] [address] Roosevelt Verde [facility] SED RATE 49 mm/hr Critically high <=20 [facility] Comment on above: Performed By: #### S EDR #### [facility] [address] [place] [address] Dr. Roosevelt Thomasn 03-21-2022 AST [Catalytic activity/Vol] 12 U/L Critically low 15-37 [facility] Comment on above: Performed By: #### C BC #### [facility] [address] [place] [address] Dr. Roosevelt PAGANPTon 03-21-2022 ALT [Catalytic activity/Vol] 27 U/L Normal 16-63 [facility] Comment on above: Performed By: #### C BC #### [facility] [address] [place] [address] Dr. Roosevelt Verde Covid-19 PCR ([facility])on SARS-CoV-2 (COVID-19) RNA DAVON+probe Ql (Unsp spec) Not detected Normal NOT DETECTED [facility] Comment on above: Result Comment: This test is not yet approved or cleared by the [place] FDA. When there are no FDA-approved or cleared tests available, and other criteria are met, FDA can make tests available under an emergency access mechanism called an Emergency Use Authorization (EUA). The EUA for this test is supported by the [place] of Health and Human Service's (HHS's) declaration [...] #### C QUE, CRP, ALT, AST #### [facility] [address] [place] [address] [id number] [address] Roosevelt Verde INFLUENZA A AND B AGon 03-08 INFLUBNEGH SEE BELOW Normal [facility] Comment on above: Result Comment: Nega tive for Flu B protein antigen. Infection due to Flu B cannot be ruled out. Flu B antigen in the sample may be below the detection limit of the test. Performed By: #### C BC #### [facility] [address] [address] [address] Roosevelt Verde INFLUENZA A AG Positive Abnormal NEGATIVE SEE COMMENT [facility] Comment on above: Performed By: #### C BC #### [facility] [address] [address] [address] Roosevelt Verde INFLUENZA B AG Negative Normal NEGATIVE SEE COMMENT [facility] Comment on above: Performed By: #### C BC #### [facility] [address] [address] [address] Roosevelt Verde INFLUPOSH SEE BELOW Normal [facility] Comment on above: Result Comment: NOTE : Live attenuated influenzae vaccine viruses can cause a positive result for a rapid influenza diagnostic test if administered up to 7 days prior to rapid testing. Performed By: #### C BC #### [facility] [address] [address] [address] Roosevelt Verde INTERNAL CONTROLS Within Normal Limits Normal Within Normal Limits [facility] Comment on above: Performed By: #### C BC #### [facility] [address] [place] [address] Dr. Roosevelt Verde BUNon 01-27-2022 Urea nitrogen [Mass/Vol] 30.0 mg/dL Critically high 7.0-18.0 [facility] Comment on above: Performed By: #### C QUE, BUN ####[facility] [address] [place] [address]Dr. Roosevelt Verde CREATININEon 01-27-2022 Creatinine [Mass/Vol] 2.55 mg/dL Critically high 0.70-1.30 [facility] Comment on above: Performed By: #### C QUE, BUN ####[facility] [address] [place] [address]Dr. Roosevelt Verde EGFR-AF KOSOVAN 32 mL/min/1.73m2 Critically low >=60 [facility] Comment on above: Performed By: #### C QUE, BUN ####[facility] [address] [place] [address]Dr. Roosevelt Verde EGFR-NON AF KOSOVAN 26 mL/min/1.73m2 Critically low >=60 [facility] Comment on above: Performed By: #### C QUE, BUN ####[facility] [address] [place] [address]Dr. Roosevelt Verde UA RANDOM W/MICROSCOPICon BACTERIA NONE SEEN Normal NONE SEEN [facility] Comment on above: Performed By: #### U AMIC #### [facility] [address] [address] [address] Roosevelt Verde Bilirubin Ql (U) Negative Normal NEGATIVE [facility] Comment on above: Performed By: #### U AMIC #### [facility] [address] [address] [address] Roosevelt Verde CAST SEEN Abnormal NONE SEEN [facility] Comment on above: Performed By: #### U AMIC #### [facility] [address] [address] [address] Roosevelt Verde Clarity (U) CLEAR Normal CLEAR [facility] Comment on above: Performed By: #### U AMIC #### [facility] [address] [address] [address] Roosevelt Verde Color (U) DK. YELLOW Normal YELLOW [facility] Comment on above: Performed By: #### U AMIC #### [facility] [address] [address] [address] Roosevelt Verde Crystals LM Nom (Urine sed) NONE SEEN Normal NONE SEEN [facility] Comment on above: Performed By: #### U AMIC #### [facility] [address] [address] [address] Roosevelt Verde Epithelial cells LM Ql (Urine sed) NONE SEEN Normal NONE SEEN /RARE [facility] Comment on above: Performed By: #### U AMIC #### [facility] [address] [address] [address] Roosevelt Verde Glucose Ql (U) Negative Normal NEGATIVE [facility] Comment on above: Performed By: #### U AMIC #### [facility] [address] [address] [address] Roosevelt Verde Hemoglobin Ql (U) Negative Normal NEGATIVE [facility] Comment on above: Performed By: #### U AMIC #### [facility] [address] [address] [address] Roosevelt Verde Ketones Ql (U) TRACE Abnormal NEGATIVE [facility] Comment on above: Performed By: #### U AMIC #### [facility] [address] [address] [address] Roosevelt Verde LEUKOCYTES Negative Normal NEGATIVE [facility] Comment on above: Performed By: #### U AMIC #### [facility] [address] [address] [address] Roosevelt Verde MUCOUS NONE SEEN Normal NONE SEEN [facility] Comment on above: Performed By: #### U AMIC #### [facility] [address] [address] [address] Roosevelt Verde Nitrite Ql (U) Negative Normal NEGATIVE [facility] Comment on above: Performed By: #### U AMIC #### [facility] [address] [address] [address] Roosevelt Verde pH (U) 6.0 [pH] Normal 5-9 [facility] Comment on above: Performed By: #### U AMIC #### [facility] [address] [address] [address] Roosevelt Verde RBC NONE SEEN Abnormal 0-2 [facility] Comment on above: Performed By: #### U AMIC #### [facility] [address] [address] [address] Roosevelt Verde SPEC GRAVITY 1.025 Normal 1.005-<=1.025 [facility] Comment on above: Performed By: #### U AMIC #### [facility] [address] [address] [address] Roosevelt Verde UA PROTEIN Negative Normal NEGATIVE/ TRACE [facility] Comment on above: Performed By: #### U AMIC #### [facility] [address] [address] [address] Roosevelt Verde Urobilinogen Qn (U) 0.2 {Gogo'U}/dL Normal 0.2 - 1. 0 [facility] Comment on above: Performed By: #### U AMIC #### [facility] [address] [address] [address] Roosevelt Verde WBC 0-2 Abnormal NONE SEEN [facility] Comment on above: Performed By: #### U AMIC #### [facility] [address] [address] [address] Roosevelt Verde CBC AUTO DIFFon 01-12-2022 BASO # 0.0 103/ul Normal 0.0-0.1 [facility] Comment on above: Performed By: #### C BC ####[facility] [address] [place] [address]DrMichael Verde Basophils/100 WBC (Bld) 0.6 % Normal 0.2-2.0 [facility] Comment on above: Performed By: #### C BC ####[facility] [address] [place] [address]DrMichael Verde EO # 0.1 103/ul Normal 0.0-0.7 [facility] Comment on above: Performed By: #### C BC ####[facility] [address] [place] [address]DrMichael Verde Eosinophils/100 WBC (Bld) 1.5 % Normal 0.9-7.0 [facility] Comment on above: Performed By: #### C BC ####[facility] [address] [place] [address]DrMichael Verde Erythrocyte distribution width (RBC) [Ratio] 13.5 % Normal 11.0-15.0 [facility] Comment on above: Performed By: #### C BC ####[facility] [address] [place] [address]DrMichael Verde Hematocrit (Bld) [Volume fraction] 36.6 % Critically low 42.0-54.0 [facility] Comment on above: Performed By: #### C BC ####[facility] [address] [place] [id number]. Roosevelt Verde Hemoglobin (Bld) [Mass/Vol] 11.8 g/dL Critically low 14.0-18.0 [facility] Comment on above: Performed By: #### C BC ####[facility] [address] [place] [address]Dr. Roosevelt Verde IG # 0.03 10e3/ul Normal 0.00-0.03 [facility] Comment on above: Performed By: #### C BC ####[facility] [address] [place], [place] [address]Dr. Roosevelt Verde IG % 0.5 % Normal 0.0-0.5 [facility] Comment on above: Performed By: #### C BC ####[facility] [address] [place], [place] [address]Dr. Betzaidasánchez Verde LYMPH # 1.5 103/ul Normal 1.2-3.8 [facility] Comment on above: Performed By: #### C BC ####[facility] [address] [place], [place] [address]Dr. Betzaidasánchez Verde Lymphocytes/100 WBC (Bld) 22.3 % Normal 20.5-60.0 [facility] Comment on above: Performed By: #### C BC ####[facility] [address] [place], [place] [address]Dr. Betzaidasánchez Verde MANUAL DIFF REQ NO Normal [facility] Comment on above: Performed By: #### C BC ####[facility] [address] [place], [place] [address]Dr. Roosevelt Verde MCH (RBC) [Entitic mass] 34.2 pg Critically high 25.9-34.0 [facility] Comment on above: Performed By: #### C BC ####[facility] [address] [place], [place] [address]Dr. Roosevelt Verde MCHC (RBC) [Mass/Vol] 32.2 g/dL Normal 29.9-35.2 [facility] Comment on above: Performed By: #### C BC ####[facility] [address] [place] [id number]. Roosevelt Verde MCV (RBC) [Entitic vol] 106.1 fL Critically high 80.0-94.0 [facility] Comment on above: Result Comment: 2+ m acrocytosis Performed By: #### C BC ####[facility] [address] [place] [id number]. Roosevelt Verde MONO # 0.6 103/ul Normal 0.3-0.8 [facility] Comment on above: Performed By: #### C BC ####[facility] [address] [place] [id number]. Roosevelt Verde Monocytes/100 WBC (Bld) 8.7 % Normal 1.7-12.0 [facility] Comment on above: Performed By: #### C BC ####[facility] [address] [place], [place] [id number]. Roosevelt Verde NEUT # 4.4 103/ul Normal 1.4-6.5 [facility] Comment on above: Performed By: #### C BC ####[facility] [address] [place] [id number]. Roosevelt Verde Neutrophils/100 WBC (Bld) 66.4 % Normal 43.0-75.0 [facility] Comment on above: Performed By: #### C BC ####[facility] [address] [place] [id number]. Roosevelt Verde Platelet mean volume (Bld) [Entitic vol] 9.3 fL Critically low 9.5-13.5 [facility] Comment on above: Performed By: #### C BC ####[facility] [address] [place] [id number]. Roosevelt Verde PLT 325 103/ul Normal 150-450 [facility] Comment on above: Performed By: #### C BC ####[facility] [address] [place] [id number]. Betzaidasánchez Verde RBC 3.45 106/ul Critically low 4.70-6.10 [facility] Comment on above: Performed By: #### C BC ####[facility] [address] [place] [address]Dr. Roosevelt Verde WBC 6.6 103/ul Normal 4.0-11.0 [facility] Comment on above: Performed By: #### C BC ####[facility] [address] [place] [address]Dr. Roosevelt Verde CREATININEon 01-12-2022 Creatinine [Mass/Vol] 1.89 mg/dL Critically high 0.70-1.30 [facility] Comment on above: Performed By: #### C QUE, CRP, ALT, AST #### [facility] [address] [address] [address] Roosevelt Verde EGFR-AF KOSOVAN 45 mL/min/1.73m2 Critically low >=60 [facility] Comment on above: Performed By: #### C QUE, CRP, ALT, AST #### [facility] [address] [place] [address] Dr. Roosevelt Verde EGFR-NON AF KOSOVAN 37 mL/min/1.73m2 Critically low >=60 [facility] Comment on above: Performed By: #### C QUE, CRP, ALT, AST #### [facility] [address] [place] [address] Dr. Roosevelt Verde CRPon 01-12-2022 CRP 0.2 mg/dL Normal <=1.0 [facility] Comment on above: Performed By: #### C QUE, CRP, ALT, AST #### [facility] [address] [address] [address] Roosevelt Verde SED RATE WESTERGRENon 2021 SED RATE 24 mm/hr Critically high <=20 [facility] Comment on above: Performed By: #### S EDR ####[facility] [address] [place] [address]Dr. Roosevelt Verde SGOTon 01-12-2022 AST [Catalytic activity/Vol] 12 U/L Critically low 15-37 [facility] Comment on above: Performed By: #### C QUE, CRP, ALT, AST #### [facility] [address] [address] [address] Roosevelt Verde SGPTon 01-12-2022 ALT [Catalytic activity/Vol] 26 U/L Normal 16-63 [facility] Comment on above: Performed By: #### C QUE, CRP, ALT, AST #### [facility] [address] [address] [address] Roosevelt Verde VIT D, 1,25 DIHYDROXon 01-11 VIT. D 1,25 37.8 Normal [facility] Comment on above: Result Comment: Pl ease note reference interval change Reference range: 24.8 to 81.5 Unit: pg/mL PERFORMED AT [facility] Performed By: #### L VD125 #### Testing performed at [facility] 25 0H VITAMIN D LEVELon 12-31 25 0H VITAMIN D LEVEL 40.4 NG/ML [facility] Comment on above: Result Comment: DEFICIENT <20 NG/ML INSUFFICIENT 20-<30 NG/ML SUFFICIENT 30-100 NG/ML POTENTIAL TOXICITY >100 NG/ML [facility] 01-10-2022 AST [Catalytic activity/Vol] 22 U/L Normal 17-59 [facility] Comment on above: Performed By: #### L VD125 #### Testing performed at [facility] CREATININE,SERUMon Creatinine [Mass/Vol] 1.78 mg/dL High 0.7-1.2 [facility] Comment on above: Performed By: #### L VD125 #### Testing performed at [facility] EST. GFR, 51 ml/min/1.73sq.m [facility] Comment on above: Performed By: #### L VD125 #### Testing performed at [facility] EST. GFR,Non 42 ml/min/1.73sq.m [facility] Comment on above: Performed By: #### L VD125 #### Testing performed at [facility] GFR Information Average GFR for 50-59 years old = 93. Normal [facility] Comment on above: Result Comment: Punch Card Operator alvin Kidney disease, GFR = <60. Kidney failure, GFR = <15. The GFR estimate is not adjusted for extreme body surface area or acute process, nor has it been validated for women or ethnic groups other than and . Performed By: #### L VD125 #### Testing performed at [facility] VITAMIN D (25-HYDROXY,TOTAL) on 01-10-2022 25-hydroxyvitamin D [Mass/Vol] 40.4 NG/ML [facility] Comment on above: DEFICIENT <20 NG/ML INSUFFICIENT 20-<30 NG/ML SUFFICIENT 30-100 NG/ML POTENTIAL TOXICITY >100 NG/ML [facility] CBC AUTO DIFFon 11-17-2021 BASO # 0.0 103/ul Normal 0.0-0.1 [facility] Comment on above: Performed By: #### C BC #### [facility] [address] [address] [address] Roosevelt Verde Basophils/100 WBC (Bld) 0.6 % Normal 0.2-2.0 [facility] Comment on above: Performed By: #### C BC #### [facility] [address] [address] [address] Roosevelt Verde EO # 0.1 103/ul Normal 0.0-0.7 [facility] Comment on above: Performed By: #### C BC #### [facility] [address] [address] [address] Roosevelt Verde Eosinophils/100 WBC (Bld) 1.4 % Normal 0.9-7.0 [facility] Comment on above: Performed By: #### C BC #### [facility] [address] [address] Dr. Roosevelt Verde Erythrocyte distribution width (RBC) [Ratio] 15.4 % Critically high 11.0-15.0 [facility] Comment on above: Performed By: #### C BC #### [facility] [address] [address] [address] Roosevelt Verde Hematocrit (Bld) [Volume fraction] 31.7 % Critically low 42.0-54.0 [facility] Comment on above: Performed By: #### C BC #### [facility] [address] [place] [address] Dr. Roosevelt Verde Hemoglobin (Bld) [Mass/Vol] 10.3 g/dL Critically low 14.0-18.0 [facility] Comment on above: Performed By: #### C BC #### [facility] [address] [place] [address] Dr. Roosevelt Verde IG # 0.01 10e3/ul Normal 0.00-0.03 [facility] Comment on above: Performed By: #### C BC #### [facility] [address] [place] [address] Dr. Roosevelt Verde IG % 0.2 % Normal 0.0-0.5 [facility] Comment on above: Performed By: #### C BC #### [facility] [address] [place] [address] Dr. Roosevelt Verde LYMPH # 1.2 103/ul Normal 1.2-3.8 [facility] Comment on above: Performed By: #### C BC #### [facility] [address] [place] [address] Dr. Roosevelt Verde Lymphocytes/100 WBC (Bld) 25.2 % Normal 20.5-60.0 [facility] Comment on above: Performed By: #### C BC #### [facility] [address] [place] [address] Dr. Roosevelt Verde MANUAL DIFF REQ NO Normal [facility] Comment on above: Performed By: #### C BC #### [facility] [address] [place] [address] Dr. Roosevelt Verde MCH (RBC) [Entitic mass] 35.0 pg Critically high 25.9-34.0 [facility] Comment on above: Performed By: #### C BC #### [facility] [address] [place] [address] Dr. Roosevelt Verde MCHC (RBC) [Mass/Vol] 32.5 g/dL Normal 29.9-35.2 [facility] Comment on above: Performed By: #### C BC #### [facility] [address] [address] [address] Roosevelt Verde MCV (RBC) [Entitic vol] 107.8 fL Critically high 80.0-94.0 [facility] Comment on above: Performed By: #### C BC #### [facility] [address] [address] [address] Roosevelt Verde MONO # 0.5 103/ul Normal 0.3-0.8 [facility] Comment on above: Performed By: #### C BC #### [facility] [address] [address] [address] Roosevelt Verde Monocytes/100 WBC (Bld) 11.0 % Normal 1.7-12.0 [facility] Comment on above: Performed By: #### C BC #### [facility] [address] [address] [address] Roosevelt Verde NEUT # 3.0 103/ul Normal 1.4-6.5 [facility] Comment on above: Performed By: #### C BC #### [facility] [address] [address] [address] Roosevelt Verde Neutrophils/100 WBC (Bld) 61.6 % Normal 43.0-75.0 [facility] Comment on above: Performed By: #### C BC #### [facility] [address] [address] [address] Roosevelt Verde Platelet mean volume (Bld) [Entitic vol] 8.6 fL Critically low 9.5-13.5 [facility] Comment on above: Performed By: #### C BC #### [facility] [address] [address] [address] Roosevelt Verde PLT 326 103/ul Normal 150-450 [facility] Comment on above: Performed By: #### C BC #### [facility] [address] [address] [address] Roosevelt Verde RBC 2.94 106/ul Critically low 4.70-6.10 [facility] Comment on above: Performed By: #### C BC #### [facility] [address] [address] [address] Roosevelt Verde WBC 4.9 103/ul Normal 4.0-11.0 [facility] Comment on above: Performed By: #### C BC #### [facility] [address] [address] [address] Roosevelt Verde CREATININEon 11-17-2021 Creatinine [Mass/Vol] 1.02 mg/dL Normal 0.70-1.30 [facility] Comment on above: Performed By: #### C QUE, ALT, AST, CRP ####[facility] [id number] [id number] Roosevelt Verde EGFR-AF KOSOVAN >60 Normal >=60 [facility] Comment on above: Performed By: #### C QUE, ALT, AST, CRP ####[facility] [id number] [address]Dr[address] Roosevelt Verde EGFR-NON AF KOSOVAN >60 Normal >=60 [facility] Comment on above: Performed By: #### C QUE, ALT, AST, CRP ####[facility] [address] [address]Dr[address] Roosevelt Verde CRPon 11-17-2021 CRP [Mass/Vol] mg/L Normal <=1.0 [facility] Comment on above: Performed By: #### C QUE, ALT, AST, CRP ####[facility] [id number] [id number][address] Roosevelt Verde SED RATE WESTERGRENon 2021 SED RATE 3 mm/hr Normal <=20 [facility] Comment on above: Performed By: #### S EDR ####[facility] [id number] [id number] Roosevelt Verde SGOTon 11-17-2021 AST [Catalytic activity/Vol] 13 U/L Critically low 15-37 [facility] Comment on above: Performed By: #### C QUE, ALT, AST, CRP ####[facility] [address] [address]Dr. Roosevelt Verde SGPTon 11-17-2021 ALT [Catalytic activity/Vol] 22 U/L Normal 16-63 [facility] Comment on above: Performed By: #### C QUE, ALT, AST, CRP ####[facility] [address] [place], [place] [id number]. Roosevelt Verde VIT D 25-OH LABCORPon 2021 Vitamin D, 25-Hydroxy 40.1 ng/mL Normal 30.0-100.0 [facility] Comment on above: Result Comment: Dunia min D deficiency has been defined by the [place] of [employer] and an Endocrine Society practice guideline as a level of serum 25-OH vitamin D less than 20 ng/mL (1,2). The Endocrine Society went on to further define vitamin D insufficiency as a level between 21 and 29 ng/mL (2). 1. IOM ([place] of [employer]). 2010. Dietary reference intakes for calcium and D. Elena [place]: The National Academies Press. 2. Roberta MF, [place], Alden BEARD, et al. Evaluation, treatment, and prevention of vitamin D deficiency: an Endocrine Society clinical practice guideline. JCEM. 2010; 96(7):1911-30. Performed By: #### C BC #### [facility] [address] [address] [address] Roosevelt Verde CBC AUTO DIFFon 10-23-2021 BASO # 0.1 103/ul Normal 0.0-0.1 [facility] Comment on above: Performed By: #### C QUE, CRP, ALT, AST #### [facility] [address] [address] [address] Roosevelt Verde Basophils/100 WBC (Bld) 0.5 % Normal 0.2-2.0 [facility] Comment on above: Performed By: #### C QUE, CRP, ALT, AST #### [facility] [address] [address] [address] Roosevelt Verde EO # 0.1 103/ul Normal 0.0-0.7 [facility] Comment on above: Performed By: #### C QUE, CRP, ALT, AST #### [facility] [address] [place] [address] Dr. Roosevelt Verde Eosinophils/100 WBC (Bld) 1.0 % Normal 0.9-7.0 [facility] Comment on above: Performed By: #### C QUE, CRP, ALT, AST #### [facility] [address] [place] [address] Dr. Roosevelt Verde Erythrocyte distribution width (RBC) [Ratio] 13.4 % Normal 11.0-15.0 [facility] Comment on above: Performed By: #### C QUE, CRP, ALT, AST #### [facility] [address] [place] [address] Dr. Roosevelt Verde Hematocrit (Bld) [Volume fraction] 43.1 % Normal 42.0-54.0 [facility] Comment on above: Performed By: #### C QUE, CRP, ALT, AST #### [facility] [address] [place] [address] Dr. Roosevelt Verde Hemoglobin (Bld) [Mass/Vol] 14.4 g/dL Normal 14.0-18.0 [facility] Comment on above: Performed By: #### C QUE, CRP, ALT, AST #### [facility] [address] [place] [address] Dr. Roosevelt Vedre IG # 0.05 10e3/ul Critically high 0.00-0.03 [facility] Comment on above: Performed By: #### C QUE, CRP, ALT, AST #### [facility] [address] [place] [address] Dr. Roosevelt Verde IG % 0.5 % Normal 0.0-0.5 [facility] Comment on above: Performed By: #### C QUE, CRP, ALT, AST #### [facility] [address] [place] [address] Dr. Roosevelt Verde LYMPH # 1.9 103/ul Normal 1.2-3.8 [facility] Comment on above: Performed By: #### C QUE, CRP, ALT, AST #### [facility] [address] [place] [address] Dr. Roosevelt Verde Lymphocytes/100 WBC (Bld) 19.3 % Critically low 20.5-60.0 [facility] Comment on above: Performed By: #### C QUE, CRP, ALT, AST #### [facility] [address] [place] [address] Dr. Roosevelt Verde MANUAL DIFF REQ NO Normal [facility] Comment on above: Performed By: #### C QUE, CRP, ALT, AST #### [facility] [address] [place] [address] Dr. Roosevelt Verde MCH (RBC) [Entitic mass] 34.4 pg Critically high 25.9-34.0 [facility] Comment on above: Performed By: #### C QUE, CRP, ALT, AST #### [facility] [address] [place] [address] Dr. Roosevelt Verde MCHC (RBC) [Mass/Vol] 33.4 g/dL Normal 29.9-35.2 [facility] Comment on above: Performed By: #### C QUE, CRP, ALT, AST #### [facility] [address] [place] [address] Dr. Roosevelt Verde MCV (RBC) [Entitic vol] 102.9 fL Critically high 80.0-94.0 [facility] Comment on above: Performed By: #### C QUE, CRP, ALT, AST #### [facility] [address] [place] [address] Dr. Roosevelt Verde MONO # 0.8 103/ul Normal 0.3-0.8 [facility] Comment on above: Performed By: #### C QUE, CRP, ALT, AST #### [facility] [address] [place] [address] Dr. Roosevelt Verde Monocytes/100 WBC (Bld) 8.7 % Normal 1.7-12.0 [facility] Comment on above: Performed By: #### C QUE, CRP, ALT, AST #### [facility] [address] [place] [address] Dr. Roosevelt Verde NEUT # 6.8 103/ul Critically high 1.4-6.5 [facility] Comment on above: Performed By: #### C QUE, CRP, ALT, AST #### [facility] [address] [address] [address] Roosevelt Verde Neutrophils/100 WBC (Bld) 70.0 % Normal 43.0-75.0 [facility] Comment on above: Performed By: #### C QUE, CRP, ALT, AST #### [facility] [address] [place] [address] Dr. Roosevelt Verde Platelet mean volume (Bld) [Entitic vol] 9.2 fL Critically low 9.5-13.5 [facility] Comment on above: Performed By: #### C QUE, CRP, ALT, AST #### [facility] [address] [place] [address] Dr. Roosevelt Verde PLT 328 103/ul Normal 150-450 [facility] Comment on above: Performed By: #### C QUE, CRP, ALT, AST #### [facility] [address] [place] [address] Dr. Roosevelt Verde RBC 4.19 106/ul Critically low 4.70-6.10 [facility] Comment on above: Performed By: #### C QUE, CRP, ALT, AST #### [facility] [address] [place] [address] Dr. Roosevelt Verde WBC 9.7 103/ul Normal 4.0-11.0 [facility] Comment on above: Performed By: #### C QUE, CRP, ALT, AST #### [facility] [address] [place] [address] Dr. Roosevelt Verde ER URINE PROFILEon 2 Bilirubin Ql (U) Negative Normal NEGATIVE [facility] Comment on above: Performed By: #### C BC #### [facility] [address] [place] [address] Dr. Roosevelt Verde Clarity (U) CLEAR Normal CLEAR [facility] Comment on above: Performed By: #### C BC #### [facility] [address] [place] [address] Dr. Roosevelt Verde Color (U) YELLOW Normal YELLOW [facility] Comment on above: Performed By: #### C BC #### [facility] [address] [address] [address] Roosevelt JONES A micrscopic examination will be performed if indicated. Normal [facility] Comment on above: Performed By: #### C BC #### [facility] [address] [place] [address] Dr. Roosevelt Verde Glucose Ql (U) Negative Normal NEGATIVE [facility] Comment on above: Performed By: #### C BC #### [facility] [address] [address] [address] Roosevelt Vedre Hemoglobin Ql (U) Negative Normal NEGATIVE [facility] Comment on above: Performed By: #### C BC #### [facility] [address] [place] [address] Dr. Roosevelt Verde Ketones Ql (U) Negative Normal NEGATIVE [facility] Comment on above: Performed By: #### C BC #### [facility] [address] [place] [address] Dr. Roosevelt Verde LEUKOCYTES Negative Normal NEGATIVE [facility] Comment on above: Performed By: #### C BC #### [facility] [address] [place] [address] Dr. Roosevelt Verde Nitrite Ql (U) Negative Normal NEGATIVE [facility] Comment on above: Performed By: #### C BC #### [facility] [address] [place] [address] Dr. Roosevelt Verde pH (U) 5.5 [pH] Normal 5-9 [facility] Comment on above: Performed By: #### C BC #### [facility] [address] [address] [address] Roosevelt Verde SPEC GRAVITY 1.025 Normal 1.005-<=1.025 [facility] Comment on above: Performed By: #### C BC #### [facility] [address] [place] [address] Dr. Roosevelt Verde UA PROTEIN Negative Normal NEGATIVE/ TRACE [facility] Comment on above: Performed By: #### C BC #### [facility] [address] [place] [address] Dr. Roosevelt Verde UR MICRO IND NOT INDICATED Normal [facility] Comment on above: Result Comment: Prev iously reported as: INDICATED On 10/23/2021 16:15 By CV2 Performed By: #### C BC #### [facility] [address] [place] [address] Dr. Roosevelt Verde Urobilinogen Qn (U) 0.2 {Gogo'U}/dL Normal 0.2 - 1. 0 [facility] Comment on above: Performed By: #### C BC #### [facility] [address] [place] [address] Dr. Roosevelt Verde LIPASEon 10-23-2021 Lipase [Catalytic activity/Vol] 137.0 U/L Normal 73.0-393.0 [facility] Comment on above: Performed By: #### C BC #### [facility] [address] [place] [address] Dr. Roosevelt Verde PROF 14(COMP METB)on 022 Albumin [Mass/Vol] 4.0 g/dL Normal 3.4-5.0 [facility] Comment on above: Performed By: #### C BC #### [facility] [address] [place] [address] Dr. Roosevelt Verde Albumin/Globulin [Mass ratio] 1.3 {ratio} Normal [facility] Comment on above: Performed By: #### C BC #### [facility] [address] [place] [address] Dr. Roosevelt Verde ALP [Catalytic activity/Vol] 73 U/L Normal 46-116 [facility] Comment on above: Performed By: #### C BC #### [facility] [address] [place] [address] Dr. Roosevelt Verde ALT [Catalytic activity/Vol] 35 U/L Normal 16-63 [facility] Comment on above: Performed By: #### C BC #### [facility] [address] [place] [address] Dr. Roosevelt Verde Anion gap [Moles/Vol] 9.9 mmol/L Normal [facility] Comment on above: Performed By: #### C BC #### [facility] [address] [address] [address] Roosevelt Verde AST [Catalytic activity/Vol] 16 U/L Normal 15-37 [facility] Comment on above: Performed By: #### C BC #### [facility] [address] [address] [address] Roosevelt Verde Bilirubin [Mass/Vol] 0.7 mg/dL Normal 0.2-1.0 [facility] Comment on above: Performed By: #### C BC #### [facility] [address] [place] [address] Dr. Roosevelt Verde Calcium [Mass/Vol] 8.8 mg/dL Normal 8.5-10.1 [facility] Comment on above: Performed By: #### C BC #### [facility] [address] [place] [address] Dr. Roosevelt Verde Chloride [Moles/Vol] 107 mmol/L Normal 98-107 [facility] Comment on above: Performed By: #### C BC #### [facility] [address] [address] [address] Roosevelt Verde CO2 [Moles/Vol] 27.6 mmol/L Normal 21.0-32.0 [facility] Comment on above: Performed By: #### C BC #### [facility] [address] [address] [address] Roosevelt Verde Creatinine [Mass/Vol] 1.10 mg/dL Normal 0.70-1.30 [facility] Comment on above: Performed By: #### C BC #### [facility] [address] [address] [address] Roosveelt Verde EGFR-AF KOSOVAN >60 Normal >=60 [facility] Comment on above: Performed By: #### C BC #### [facility] [address] [address] [address] Roosevelt Verde EGFR-NON AF KOSOVAN >60 Normal >=60 [facility] Comment on above: Performed By: #### C BC #### [facility] [address] [address] [address] Roosevelt Verde Globulin (S) [Mass/Vol] 3.0 g/dL Normal [facility] Comment on above: Performed By: #### C BC #### [facility] [address] [address] [address] Roosevelt Verde Glucose [Mass/Vol] 83 mg/dL Normal 74-106 [facility] Comment on above: Performed By: #### C BC #### [facility] [address] [address] [address] Roosevelt Verde Potassium [Moles/Vol] 4.5 mmol/L Normal 3.5-5.1 [facility] Comment on above: Performed By: #### C BC #### [facility] [address] [address] [address] Roosevelt Verde Protein [Mass/Vol] 7.0 g/dL Normal 6.4-8.2 [facility] Comment on above: Performed By: #### C BC #### [facility] [address] [address] [address] Roosevelt Verde Sodium [Moles/Vol] 140 mmol/L Normal 136-145 [facility] Comment on above: Performed By: #### C BC #### [facility] [address] [address] [address] Roosevelt Verde Urea nitrogen [Mass/Vol] 23.0 mg/dL Critically high 7.0-18.0 [facility] Comment on above: Performed By: #### C BC #### [facility] [address] [address] [address] Roosevelt Verde Urea nitrogen/Creatinine [Mass ratio] 20.9 mg/mg Normal [facility] Comment on above: Performed By: #### C BC #### [facility] [address] [place] [address] Dr. Roosevelt Verde XR KUB 1 VIEWon [...] TRA ALDRIDGE Date: 2021-10-23 16:26 Normal [facility] CBC AUTO DIFFon 09-16-2021 BASO # 0.0 103/ul Normal 0.0-0.1 [facility] Comment on above: Performed By: #### C BC #### [facility] [address] [address] [address] Roosevelt Verde Basophils/100 WBC (Bld) 0.5 % Normal 0.2-2.0 [facility] Comment on above: Performed By: #### C BC #### [facility] [address] [address] [address] Roosevelt Verde EO # 0.1 103/ul Normal 0.0-0.7 [facility] Comment on above: Performed By: #### C BC #### [facility] [address] [address] [address] Roosevelt Verde Eosinophils/100 WBC (Bld) 0.6 % Critically low 0.9-7.0 [facility] Comment on above: Performed By: #### C BC #### [facility] [address] [address] [address] Roosevelt Verde Erythrocyte distribution width (RBC) [Ratio] 13.2 % Normal 11.0-15.0 [facility] Comment on above: Performed By: #### C BC #### [facility] [address] [place] [address] Dr. Roosevelt Verde Hematocrit (Bld) [Volume fraction] 42.9 % Normal 42.0-54.0 [facility] Comment on above: Performed By: #### C BC #### [facility] [address] [place] [address] Dr. Roosevelt Verde Hemoglobin (Bld) [Mass/Vol] 14.2 g/dL Normal 14.0-18.0 [facility] Comment on above: Performed By: #### C BC #### [facility] [address] [place] [address] Dr. Roosevelt Verde IG # 0.03 10e3/ul Normal 0.00-0.03 [facility] Comment on above: Performed By: #### C BC #### [facility] [address] [place] [address] Dr. Roosevelt Verde IG % 0.4 % Normal 0.0-0.5 [facility] Comment on above: Performed By: #### C BC #### [facility] [address] [place] [address] Dr. Roosevelt Verde LYMPH # 1.7 103/ul Normal 1.2-3.8 [facility] Comment on above: Performed By: #### C BC #### [facility] [address] [place] [address] Dr. Roosevelt Verde Lymphocytes/100 WBC (Bld) 21.0 % Normal 20.5-60.0 [facility] Comment on above: Performed By: #### C BC #### [facility] [address] [place] [address] Dr. Roosevelt Verde MANUAL DIFF REQ NO Normal [facility] Comment on above: Performed By: #### C BC #### [facility] [address] [place] [address] Dr. Roosevelt Verde MCH (RBC) [Entitic mass] 34.5 pg Critically high 25.9-34.0 [facility] Comment on above: Performed By: #### C BC #### [facility] [address] [place] [address] Dr. Roosevelt Verde MCHC (RBC) [Mass/Vol] 33.1 g/dL Normal 29.9-35.2 [facility] Comment on above: Performed By: #### C BC #### [facility] [address] [place] [address] Dr. Roosevelt Verde MCV (RBC) [Entitic vol] 104.4 fL Critically high 80.0-94.0 [facility] Comment on above: Performed By: #### C BC #### [facility] [address] [place] [address] Dr. Roosevelt Verde MONO # 0.8 103/ul Normal 0.3-0.8 [facility] Comment on above: Performed By: #### C BC #### [facility] [address] [place] [address] Dr. Roosevelt Verde Monocytes/100 WBC (Bld) 9.6 % Normal 1.7-12.0 [facility] Comment on above: Performed By: #### C BC #### [facility] [address] [place] [address] Dr. Roosevelt Verde NEUT # 5.5 103/ul Normal 1.4-6.5 [facility] Comment on above: Performed By: #### C BC #### [facility] [address] [place] [address] Dr. Roosevelt Verde Neutrophils/100 WBC (Bld) 67.9 % Normal 43.0-75.0 [facility] Comment on above: Performed By: #### C BC #### [facility] [address] [place] [address] Dr. Roosevelt Verde Platelet mean volume (Bld) [Entitic vol] 9.4 fL Critically low 9.5-13.5 [facility] Comment on above: Performed By: #### C BC #### [facility] [address] [place] [address] Dr. Roosevelt Verde PLT 290 103/ul Normal 150-450 [facility] Comment on above: Performed By: #### C BC #### [facility] [address] [place] [address] Dr. Roosevelt Verde RBC 4.11 106/ul Critically low 4.70-6.10 [facility] Comment on above: Performed By: #### C BC #### [facility] [address] [place] [address] Dr. Roosevelt Verde WBC 8.1 103/ul Normal 4.0-11.0 [facility] Comment on above: Performed By: #### C BC #### [facility] [address] [address] [address] Roosevelt Verde CREATININEon 09-16-2021 Creatinine [Mass/Vol] 1.20 mg/dL Normal 0.70-1.30 [facility] Comment on above: Performed By: #### C QUE, CRP, ALT, AST #### [facility] [address] [place] [address] Dr. Roosevelt Verde EGFR-AF KOSOVAN >=60 Normal >=60 [facility] Comment on above: Performed By: #### C QUE, CRP, ALT, AST #### [facility] [address] [place] [address] Dr. Roosevelt Verde EGFR-NON AF KOSOVAN >=60 Normal >=60 [facility] Comment on above: Performed By: #### C QUE, CRP, ALT, AST #### [facility] [address] [place] [address] Dr. Roosevelt Verde CRPon 09-16-2021 CRP [Mass/Vol] mg/L Normal <=1.0 [facility] Comment on above: Performed By: #### C QUE, CRP, ALT, AST #### [facility] [address] [place] [address] Dr. Roosevelt Verde SED RATE WESTERGRENon 2021 SED RATE 4 mm/hr Normal <=20 [facility] Comment on above: Performed By: #### S EDR ####[facility] [address] [address]Dr[address] Roosevelt Verde SGOTon 09-16-2021 AST [Catalytic activity/Vol] 17 U/L Normal 15-37 [facility] Comment on above: Performed By: #### C QUE, CRP, ALT, AST #### [facility] [address] [place] [address] Dr. Roosevelt Verde SGPTon 09-16-2021 ALT [Catalytic activity/Vol] 36 U/L Normal 16-63 [facility] Comment on above: Performed By: #### C QUE, CRP, ALT, AST #### [facility] [address] [address] [address] Roosevelt Verde VIT D, 1,25 DIHYDROXon 07-13 VIT. D 1,25 41.4 Normal [facility] Comment on above: Result Comment: Refe rence range: 19.9 to 79.3 Unit: pg/mL PERFORMED AT [facility] Performed By: #### L VD125 #### Testing performed at [facility] 25 0H VITAMIN D LEVELon 07-01 25 0H VITAMIN D LEVEL 47.4 NG/ML Normal [facility] Comment on above: Result Comment: DEFICIENT <20 NG/ML INSUFFICIENT 20-<30 NG/ML SUFFICIENT 30-100 NG/ML POTENTIAL TOXICITY >100 NG/ML Demetrius 07-12-2021 ALT [Catalytic activity/Vol] 25 U/L Normal <50 [facility] Comment on above: Performed By: #### L [id number] #### Testing performed at [facility] ALT [Catalytic activity/Vol] 25 U/L <50 IU/L [facility] Levar 07-12-2021 AST [Catalytic activity/Vol] 22 U/L Normal 17-59 [facility] Comment on above: Performed By: #### L [id number] #### Testing performed at [facility] AST [Catalytic activity/Vol] 22 U/L [facility] C REACTIVE PROTEINon 022 CRP [Mass/Vol] mg/L Normal 0-10 [facility] Comment on above: Performed By: #### L VD125 #### Testing performed at [facility] CRP [Mass/Vol] mg/L 0 - 10 [facility] CBCon 07-12-2021 ABSOLUTE BAS 0.0 10*3/uL Normal 0.0-0.2 [facility] Comment on above: Performed By: #### L VD125 #### Testing performed at [facility] ABSOLUTE EOS 0.10 10*3/uL Normal 0.0-0.7 [facility] Comment on above: Performed By: #### L VD125 #### Testing performed at [facility] ABSOLUTE NEUTROPHIL COUNT 4.2 10*3/uL Normal 1.4-6.5 [facility] Comment on above: Performed By: #### L VD125 #### Testing performed at [facility] Basophils/100 WBC (Bld) 0.5 % Normal 0.0-2.0 [facility] Comment on above: Performed By: #### L VD125 #### Testing performed at [facility] DTYPE AUTO DIFF Normal [facility] Comment on above: Performed By: #### L VD125 #### Testing performed at [facility] Eosinophils/100 WBC (Bld) 0.9 % Normal 0.0-11.0 [facility] Comment on above: Performed By: #### L VD125 #### Testing performed at [facility] Lymphocytes (Bld) [#/Vol] 1.20 10*3/uL Normal 1.2-3.4 [facility] Comment on above: Performed By: #### L VD125 #### Testing performed at [facility] Lymphocytes/100 WBC (Bld) 20.2 % Normal 20.0-55.0 [facility] Comment on above: Performed By: #### L VD125 #### Testing performed at [facility] Monocytes (Bld) [#/Vol] 0.6 10*3/uL Normal 0.0-0.7 [facility] Comment on above: Performed By: #### L VD125 #### Testing performed at [facility] Monocytes/100 WBC (Bld) 10.2 % High 0.0-10.0 [facility] Comment on above: Performed By: #### L VD125 #### Testing performed at [facility] Neutrophils/100 WBC (Bld) 68.2 % Normal 37.0-75.0 [facility] Comment on above: Performed By: #### L VD125 #### Testing performed at [facility] Erythrocyte distribution width (RBC) [Ratio] 14.5 % Normal 11.5-14.5 [facility] Comment on above: Performed By: #### L VD125 #### Testing performed at [facility] Hematocrit (Bld) [Volume fraction] 43.9 % Normal 42.0-52.0 [facility] Comment on above: Performed By: #### L VD125 #### Testing performed at [facility] Hemoglobin (Bld) [Mass/Vol] 14.6 g/dL Normal 14.0-18.0 [facility] Comment on above: Performed By: #### L VD125 #### Testing performed at [facility] MCH (RBC) [Entitic mass] 34.7 pg Normal 26.0-35.0 [facility] Comment on above: Performed By: #### L VD125 #### Testing performed at [facility] MCHC (RBC) [Mass/Vol] 33.2 g/dL Normal 27.0-37.0 [facility] Comment on above: Performed By: #### L VD125 #### Testing performed at [facility] MCV (RBC) [Entitic vol] 104.6 fL High 80.0-100.0 [facility] Comment on above: Performed By: #### L VD125 #### Testing performed at [facility] Platelet mean volume (Bld) [Entitic vol] 7.4 fL Normal 7.4-11.0 [facility] Comment on above: Performed By: #### L VD125 #### Testing performed at [facility] Platelets (Bld) [#/Vol] 304 10*3/uL Normal 130.0-400.0 [facility] Comment on above: Performed By: #### L VD125 #### Testing performed at [facility] RBC (Bld) [#/Vol] 4.20 10*6/uL Normal 4.0-6.1 [facility] Comment on above: Performed By: #### L VD125 #### Testing performed at [facility] WBC (Bld) [#/Vol] 6.2 10*3/uL Normal 3.6-11.0 [facility] Comment on above: Performed By: #### L VD125 #### Testing performed at [facility] CBC, EDIF, PLATELETon 2021 ABSOLUTE BASOPHIL COUNT 0.0 10*3/uL 0.0 - 0.2 10*3/uL [facility] Basophils/100 WBC (Bld) 0.5 % 0.0 - 2.0 % [facility] Differential cell count method Nom (Bld) AUTO DIFF % [facility] Eosinophils (Bld) [#/Vol] 0.10 10*3/uL 0.0 - 0.7 10*3/uL [facility] Eosinophils/100 WBC (Bld) 0.9 % 0.0 - 11.0 % [facility] Erythrocyte distribution width (RBC) [Ratio] 14.5 % 11.5 - 14.5 % [facility] Hematocrit (Bld) [Volume fraction] 43.9 % 42.0 - 52.0 % [facility] Hemoglobin (Bld) [Mass/Vol] 14.6 g/dL [facility] Interpretation and review of laboratory results Abnormal [facility] Lymphocytes (Bld) [#/Vol] 1.20 10*3/uL 1.2 - 3.4 10*3/uL [facility] Lymphocytes/100 WBC (Bld) 20.2 % 20.0 - 55.0 % [facility] MCH (RBC) [Entitic mass] 34.7 pg 26.0 - 35.0 PG [facility] MCHC (RBC) [Mass/Vol] 33.2 g/dL [facility] MCV (RBC) [Entitic vol] 104.6 fL High [facility] Monocytes (Bld) [#/Vol] 0.6 10*3/uL 0.0 - 0.7 10*3/uL [facility] Monocytes/100 WBC (Bld) 10.2 % High 0.0 - 10.0 % [facility] Neutrophils (Bld) [#/Vol] 4.2 10*3/uL 1.4 - 6.5 10*3/uL [facility] Neutrophils/100 WBC (Bld) 68.2 % 37.0 - 75.0 % [facility] Platelet mean volume (Bld) [Entitic vol] 7.4 fL [facility] Platelets (Bld) [#/Vol] 304 10*3/uL 130.0 - 400.0 10*3/uL [facility] RBC (Bld) [#/Vol] 4.20 10*6/uL 4.0 - 6.1 10*6/u L [facility] WBC (Bld) [#/Vol] 6.2 10*3/uL 3.6 - 11.0 10*3/uL [facility] CREATININE SERUMon 2 Creatinine [Mass/Vol] 0.92 mg/dL [facility] GFR COMMENT Average GFR for 50-59 years old = 93. [facility] Comment on above: Chronic Kidney disea se, GFR = <60. Kidney failure, GFR = <15. The GFR estimate is not adjusted for extreme body surface area or acute process, nor has it been validated for women or ethnic groups other than and . GFR/1.73 sq M.predicted among blacks MDRD (S/P/Bld) [Vol rate/Area] 110 mL/min/{1.73_m2} ml/min/1.73sq.m [facility] GFR/1.73 sq M.predicted among non-blacks MDRD (S/P/Bld) [Vol rate/Area] 91 mL/min/{1.73_m2} ml/min/1.73sq.m [facility] CREATININE,SERUMon 2 Creatinine [Mass/Vol] 0.92 mg/dL Normal 0.7-1.2 [facility] Comment on above: Performed By: #### L VD125 #### Testing performed at [facility]. GFR, 110 ml/min/1.73sq.m [facility] Comment on above: Performed By: #### L VD125 #### Testing performed at [facility]. GFR,Non 91 ml/min/1.73sq.m [facility] Comment on above: Performed By: #### L VD125 #### Testing performed at [facility] GFR Information Average GFR for 50-59 years old = 93. Normal [facility] Comment on above: Result Comment: Punch Card Operator alvin Kidney disease, GFR = <60. Kidney failure, GFR = <15. The GFR estimate is not adjusted for extreme body surface area or acute process, nor has it been validated for women or ethnic groups other than and . Performed By: #### L VD125 #### Testing performed at [facility] ESRon 07-12-2021 ESR (Bld) [Velocity] 2 mm/h Normal 0-20 [facility] Comment on above: Performed By: #### L VD125 #### Testing performed at [facility] No Panel Informationon 07-12 [facility] SEDIMENTATION RATE, AUTOMATE Don 07-12-2021 ESR (Bld) [Velocity] 2 mm/h [facility] VITAMIN D (25-HYDROXY,TOTAL) on 07-12-2021 25-hydroxyvitamin D [Mass/Vol] 47.4 NG/ML [facility] Comment on above: DEFICIENT <20 NG/ML INSUFFICIENT 20-<30 NG/ML SUFFICIENT 30-100 NG/ML POTENTIAL TOXICITY >100 NG/ML [facility] Q - QUANTIFERON TB GOLD PLUS on 03-18-2021 MITOGEN-NIL 9.02 IU/mL Normal [facility] Comment on above: Order Comment: [facility] Testing performed at: [employer] [facility], [address] [place] [address], [address] [place] [address], [phone], District Medical Examiner: Rick Connors MD [facility] Collection Date/Time: [id number] [facility] Results Received Date/Time: [facility] Reported Date/Time: FASTING: NO Performed By: #### [id number] #### [facility] Default [address] [place] [address] NIL 0.03 IU/mL Normal [facility] Comment on above: Order Comment: [facility] performed at: [employer] [facility], [address] , [address] [place] [address], [phone], District Medical Examiner: Rick Connors MD [facility] Date/Time: [facility] Results Received Date/Time: [facility] Reported Date/Time: FASTING: NO Performed By: #### [id number] #### [facility] [address] [place] [address] QUANTIFERON(R)-TB GOLD PLUS, 1 TUBE Negative Normal NEGATIVE [facility] Comment on above: Order Comment: [facility] performed at: [employer] [facility], [address] , [address] [place] [address], [address] [place] [address], District Medical Examiner: Rick Connors MD [facility] Date/Time: [facility] Results Received Date/Time: [facility] Reported Date/Time: FASTING: NO Result Comment: Nega tive test result. M. tuberculosis complex infection unlikely. Performed By: #### [id number] #### [facility] [address] [place] [address] TB1-NIL 0.00 IU/mL Normal [facility] Comment on above: Order Comment: [facility] performed at: [employer], [address] , [address] [place] [address], [phone], District Medical Examiner: Rick Connors MD [facility] Date/Time: [facility] Results Received Date/Time: [facility] Reported Date/Time: FASTING: NO Performed By: #### [id number] #### [facility] [address] [place] [address] TB2-NIL 0.00 IU/mL Normal [facility] Comment on above: Order Comment: [facility] performed at: [employer], [address] , [address] [place] [address], [phone], District Medical Examiner: Rick Connors MD [facility] Date/Time: [facility] Results Received Date/Time: [id number] [facility] Reported Date/Time: FASTING: NO Result Comment: [...] T-lymphocytes. For additional information, please refer to https://education.[employer]/faq/VPH311 (This link is being provided for informational/ educational purposes only.) Performed By: #### [id number] #### [facility] [address] [place] [address] Demetrius 07-13-2020 ALT [Catalytic activity/Vol] 18 U/L <50 IU/L [facility] Levar 07-13-2020 AST [Catalytic activity/Vol] 19 U/L [facility] C REACTIVE PROTEINon 021 CRP [Mass/Vol] mg/L 0 - 10 MG/L [facility] CBC, EDIF, PLATELETon 2020 ABSOLUTE BASOPHIL COUNT 0.1 10*3/uL 0.0 - 0.2 10*3/uL [facility] Basophils/100 WBC (Bld) 0.8 % 0.0 - 2.0 % [facility] Differential cell count method Nom (Bld) AUTO DIFF % [facility] Eosinophils (Bld) [#/Vol] 0.10 10*3/uL 0.0 - 0.7 10*3/uL [facility] Eosinophils/100 WBC (Bld) 1.7 % 0.0 - 11.0 % [facility] Erythrocyte distribution width (RBC) [Ratio] 15.4 % High 11.5 - 14.5 % [facility] Hematocrit (Bld) [Volume fraction] 44.9 % 42.0 - 52.0 % [facility] Hemoglobin (Bld) [Mass/Vol] 15.4 g/dL [facility] Interpretation and review of laboratory results Abnormal [facility] Lymphocytes (Bld) [#/Vol] 2.00 10*3/uL 1.2 - 3.4 10*3/uL [facility] Lymphocytes/100 WBC (Bld) 22.9 % 20.0 - 55.0 % [facility] MCH (RBC) [Entitic mass] 36.0 pg High 26.0 - 35.0 PG [facility] MCHC (RBC) [Mass/Vol] 34.3 g/dL [facility] MCV (RBC) [Entitic vol] 104.8 fL High [facility] Monocytes (Bld) [#/Vol] 1.0 10*3/uL High 0.0 - 0.7 10*3/uL [facility] Monocytes/100 WBC (Bld) 11.1 % High 0.0 - 10.0 % [facility] Neutrophils (Bld) [#/Vol] 5.4 10*3/uL 1.4 - 6.5 10*3/uL [facility] Neutrophils/100 WBC (Bld) 63.5 % 37.0 - 75.0 % [facility] Platelet mean volume (Bld) [Entitic vol] 7.6 fL [facility] Platelets (Bld) [#/Vol] 276 10*3/uL 130.0 - 400.0 10*3/uL [facility] RBC (Bld) [#/Vol] 4.29 10*6/uL 4.0 - 6.1 10*6/u L [facility] WBC (Bld) [#/Vol] 8.6 10*3/uL 3.6 - 11.0 10*3/uL [facility] CREATININE SERUMon Creatinine [Mass/Vol] 1.01 mg/dL [facility] GFR/1.73 sq M predicted among blacks MDRD (S/P/Bld) [Vol rate/Area] mL/min/{1.73_m2} ml/min/1.73sq.m [facility] GFR/1.73 sq M predicted among non-blacks MDRD (S/P/Bld) [Vol rate/Area] Average GFR for 50-59 years old = 93. [facility] Comment on above: Chronic Kidney disea se, GFR = <60. Kidney failure, GFR = <15. The GFR estimate is not adjusted for extreme body surface area or acute process, nor has it been validated for women or ethnic groups other than and . GFR/1.73 sq M predicted among non-blacks MDRD (S/P/Bld) [Vol rate/Area] mL/min/{1.73_m2} ml/min/1.73sq.m [facility] Otheron 07-13-2020 [facility] SEDIMENTATION RATE, AUTOMATE Don 07-13-2020 ESR (Bld) [Velocity] 9 mm/h [employer] VITAMIN D (25-HYDROXY,TOTAL) on 07-13-2020 25-Hydroxyvitamin D2+25-Hydroxyvitamin D3 [Mass/Vol] 54.1 NG/ML [facility] Comment on above: DEFICIENT <20 NG/ML INSUFFICIENT 20-<30 NG/ML SUFFICIENT 30-100 NG/ML POTENTIAL TOXICITY >100 NG/ML [facility] Operative Reporton Operative Report MR#: [id number] [facility] Pt. Name: Glenda Buckley Room #: [...] closed using Prolene sutures placed in a [id number] fashion. No mesh was placed. The subcutaneous [...] Stiles MD Date Trans: 07/06/2020 01:22 A/dio [id number] cc: Rodrigo Luz M.D. [address] [place] [phone] Normal [facility] POC GLUCOSE LABon 07-05-2020 Glucose [Mass/Vol] 90 mg/dL Normal 70-100 [facility] Comment on above: Performed By: #### [id number] #### [place] [address], [facility] Demetrius 01-13-2020 ALT [Catalytic activity/Vol] 21 U/L <50 IU/L [facility] Levar 01-13-2020 AST [Catalytic activity/Vol] 22 U/L [facility] C REACTIVE PROTEINon 020 CRP [Mass/Vol] mg/L 0 - 10 MG/L [facility] CBC, EDIF, PLATELETon 2019 ABSOLUTE BASOPHIL COUNT 0.0 10*3/uL 0 - 0.2 10*3/uL [facility] Basophils/100 WBC (Bld) 0.6 % 0 - 2 % [facility] Differential cell count method Nom (Bld) AUTO DIFF % [facility] Eosinophils (Bld) [#/Vol] 0.10 10*3/uL 0 - 0.7 10*3/uL [facility] Eosinophils/100 WBC (Bld) 1.1 % 0 - 11 % [facility] Erythrocyte distribution width (RBC) [Ratio] 14.1 % 11.5 - 14.5 % [facility] Hematocrit (Bld) [Volume fraction] 43.7 % 42 - 52 % [facility] Hemoglobin (Bld) [Mass/Vol] 15.0 g/dL [facility] Interpretation and review of laboratory results Abnormal [facility] Lymphocytes (Bld) [#/Vol] 1.50 10*3/uL 1.2 - 3.4 10*3/uL [facility] Lymphocytes/100 WBC (Bld) 21.7 % 20 - 55 % [facility] MCH (RBC) [Entitic mass] 35.2 pg High 26 - 35 PG [facility] MCHC (RBC) [Mass/Vol] 34.3 g/dL [facility] MCV (RBC) [Entitic vol] 102.7 fL High [facility] Monocytes (Bld) [#/Vol] 0.8 10*3/uL High 0 - 0.7 10*3/uL [facility] Monocytes/100 WBC (Bld) 11.4 % High 0 - 10 % [facility] Neutrophils (Bld) [#/Vol] 4.4 10*3/uL 1.4 - 6.5 10*3/uL [facility] Neutrophils/100 WBC (Bld) 65.2 % 37 - 75 % [facility] Platelet mean volume (Bld) [Entitic vol] 7.4 fL [facility] Platelets (Bld) [#/Vol] 265 10*3/uL 130 - 400 10*3/uL [facility] RBC (Bld) [#/Vol] 4.25 10*6/uL 4 - 6.1 10*6/uL [facility] WBC (Bld) [#/Vol] 6.8 10*3/uL 3.6 - 11 10*3/uL [facility] CREATININE SERUMon 0 Creatinine [Mass/Vol] 0.95 mg/dL [facility] GFR/1.73 sq M predicted among blacks MDRD (S/P/Bld) [Vol rate/Area] mL/min/{1.73_m2} ml/min/1.73sq.m [facility] GFR/1.73 sq M predicted among non-blacks MDRD (S/P/Bld) [Vol rate/Area] Average GFR for 50-59 years old = 93. [facility] Comment on above: Chronic Kidney disea se, GFR = <60. Kidney failure, GFR = <15. The GFR estimate is not adjusted for extreme body surface area or acute process, nor has it been validated for women or ethnic groups other than and . GFR/1.73 sq M predicted among non-blacks MDRD (S/P/Bld) [Vol rate/Area] mL/min/{1.73_m2} ml/min/1.73sq.m [facility] SEDIMENTATION RATE, AUTOMATE Don 01-13-2020 ESR (Bld) [Velocity] 5 mm/h [facility] [employer] Vital Signs Date Time Vital Sign Value Performing Clinician Facility 10-01-2023 13:02-0400 Blood Pressure Location Yusuf POLLARD [facility] 10-01-2023 13:02-0400 Diastolic blood pressure 79 mm[Hg] Yusuf POLLARD [facility] 10-01-2023 13:02-0400 Heart rate 67 /min Yusuf POLLARD [facility] 10-01-2023 13:02-0400 Respiratory rate 16 /min Yusuf POLLARD [facility] 10-01-2023 13:02-0400 Systolic blood pressure 118 mm[Hg] Yusuf POLLARD [facility] 07-31-2023 09:01-0400 Body height 182.9 cm Tra Vale Jr., DO Work Phone: [facility] 07-31-2023 09:01-0400 Body mass index (BMI) [Ratio] 33.5 kg/m2 Tra Vale Jr., DO Work Phone: [facility] 07-31-2023 09:01-0400 Body weight 112.04 kg Tra Vale Jr., DO Work Phone: [facility] 07-31-2023 09:01-0400 Diastolic blood pressure 82 mm[Hg] Tra Vale Jr., DO Work Phone: [facility] 07-31-2023 09:01-0400 Heart rate 72 /min Tra Vale Jr., DO Work Phone: [facility] 07-31-2023 09:01-0400 SaO2% (BldA) [Mass fraction] 98 % Tra Vale Jr., DO Work Phone: [facility] 07-31-2023 09:01-0400 Systolic blood pressure 116 mm[Hg] Tra Vale Jr., DO Work Phone: [facility] 01-23-2023 08:58-0400 Body height 182.9 cm Tra Vale Jr., DO Work Phone: [facility] 01-23-2023 08:58-0400 Body mass index (BMI) [Ratio] 33.52 kg/m2 Tra Vale Jr., DO Work Phone: [facility] 01-23-2023 08:58-0400 Body temperature 97.81 [degF] Tra Vale Jr., DO Work Phone: [facility] 01-23-2023 08:58-0400 Body weight 112.1 kg Tra Vale Jr., DO Work Phone: [facility] 01-23-2023 08:58-0400 Diastolic blood pressure 80 mm[Hg] Tra Vale Jr., DO Work Phone: [facility] 01-23-2023 08:58-0400 Heart rate 66 /min Tra Cartyneliaelissa Vidales, DO Work Phone: [facility] 01-23-2023 08:58-0400 SaO2% (BldA) [Mass fraction] 99 % Tra Cartyneliaelissa Vidales, DO Work Phone: [facility] 01-23-2023 08:58-0400 Systolic blood pressure 122 mm[Hg] Tra Vale Jr., DO Work Phone: [facility] 07-25-2022 08:41-0400 Body height 182.9 cm Tra Cartyneliaelissa Vidales, DO Work Phone: [facility] 07-25-2022 08:41-0400 Body mass index (BMI) [Ratio] 33.53 kg/m2 Tra Cartyneliaelissa Vidales, DO Work Phone: [facility] 07-25-2022 08:41-0400 Body weight 112.13 kg Tra Carlozneliaelissa Vidales, DO Work Phone: [facility] 07-25-2022 08:41-0400 Diastolic blood pressure 76 mm[Hg] Tra Zamanelissa Vidales, DO Work Phone: [facility] 07-25-2022 08:41-0400 Heart rate 64 /min Tra Vale Jr., DO Work Phone: [facility] 07-25-2022 08:41-0400 Respiratory rate 18 /min Tra Vale Jr., DO Work Phone: [facility] 07-25-2022 08:41-0400 SaO2% (BldA) [Mass fraction] 99 % Tra Vale Jr., DO Work Phone: [facility] 07-25-2022 08:41-0400 Systolic blood pressure 108 mm[Hg] Tra Vale Jr., DO Work Phone: [facility] 06-17-2022 12:30-0400 Body height 180.34 cm Tania Val Other [employer] Other 06-17-2022 12:30-0400 Body mass index (BMI) [Ratio] 33.47 kg/m2 Tania Val Other [employer] Other 06-17-2022 12:30-0400 Body weight 108.86 kg Tania Val Other [employer] Other 06-17-2022 12:30-0400 Diastolic blood pressure 90 mm[Hg] Tania Val Other [employer] Other 06-17-2022 12:30-0400 Respiratory rate 18 /min Tania Val Other [employer] Other 06-17-2022 12:30-0400 SaO2% (BldA) [Mass fraction] 99 % Tania Val Other [employer] Other 06-17-2022 12:30-0400 Systolic blood pressure 150 mm[Hg] Tania Val Other [facility] Other 01-10-2022 08:38-0400 Body height 182.9 cm Tra Cartyneliaelissa Vidales, DO Work Phone: [facility] 01-10-2022 08:38-0400 Body mass index (BMI) [Ratio] 36.21 kg/m2 Tra Vale Jr., DO Work Phone: [facility] 01-10-2022 08:38-0400 Body temperature 98.01 [degF] Tra Cartyneliaelissa Vidales, DO Work Phone: [facility] 01-10-2022 08:38-0400 Body weight 121.11 kg Tra Vale Jr., DO Work Phone: [facility] 01-10-2022 08:38-0400 Diastolic blood pressure 78 mm[Hg] Tra Cartyneliaelissa Vidales, DO Work Phone: [facility] 01-10-2022 08:38-0400 Heart rate 71 /min Tra Vale Jr., DO Work Phone: [facility] 01-10-2022 08:38-0400 SaO2% (BldA) [Mass fraction] 98 % Tra Vale Jr., DO Work Phone: [facility] 01-10-2022 08:38-0400 Systolic blood pressure 116 mm[Hg] Tra Cartyneliaelissa Vidales, DO Work Phone: [facility] 07-12-2021 08:11-0400 Body height 182.9 cm Tra Cartyneliaelissa Vidales, DO Work Phone: [facility] 07-12-2021 08:11-0400 Body mass index (BMI) [Ratio] 38.52 kg/m2 Tra Cartyneliaelissa Vidales, DO Work Phone: [facility] 07-12-2021 08:11-0400 Body temperature 98.01 [degF] Tra Vale , DO Work Phone: [facility] 07-12-2021 08:11-0400 Body weight 128.82 kg rTa Vale Jr., DO Work Phone: [facility] 07-12-2021 08:11-0400 Diastolic blood pressure 76 mm[Hg] Tra Vale Jr., DO Work Phone: [facility] 07-12-2021 08:11-0400 Heart rate 70 /min Tra Vale Jr., DO Work Phone: [facility] 07-12-2021 08:11-0400 SaO2% (BldA) [Mass fraction] 97 % Tra Vale Jr., DO Work Phone: [facility] 07-12-2021 08:11-0400 Systolic blood pressure 126 mm[Hg] Tra Vale Jr., DO Work Phone: [facility] 07-13-2020 08:01-0400 BMI (Body Mass Index) 38.52 kg/m2 [facility] 07-13-2020 08:01-0400 Body Temperature 97.9 [degF[facility] 07[facility]13-[facility] 08:01-0400 Body weight 128.82 kg [facility] 07-13-2020 08:01-0400 BP Diastolic 84 mm[Hg] [facility] 07-13-2020 08:01-0400 BP Systolic 126 mm[Hg] [facility] 07-13-2020 08:01-0400 Height 182.9 cm [facility] 07-13-2020 08:01-0400 Pulse (Heart Rate) 71 /min [facility] 07-13-2020 08:01-0400 Pulse Oximetry 97 % [facility] 01-13-2020 08:05-0400 BMI (Body Mass Index) 43.81 kg/m2 [facility] 01-13-2020 08:05-0400 Body Temperature 97 [degF] [facility] 01-13-2020 08:05-0400 Body weight 146.51 kg [facility] 01-13-2020 08:05-0400 BP Diastolic 80 mm[Hg] [facility] 01-13-2020 08:05-0400 BP Systolic 130 mm[Hg] [facility] 01-13-2020 08:05-0400 Height 182.9 cm [facility] 09-09-2019 08:21-0400 BMI (Body Mass Index) 43.81 kg/m2 [facility] 09-09-2019 08:21-0400 Body Temperature 97.81 [degF] [facility] 09-09-2019 08:21-0400 Body weight 146.51 kg [facility] 09-09-2019 08:21-0400 BP Diastolic 80 mm[Hg] [facility] 09-09-2019 08:21-0400 BP Systolic 138 mm[Hg] [facility] 09-09-2019 08:21-0400 Height 182.9 cm [facility] 09-09-2019 08:21-0400 Pulse (Heart Rate) 83 /min [facility] 09-09-2019 08:21-0400 Pulse Oximetry 98 % [facility] 05-06-2019 09:12-0500 BMI (Body Mass Index) 42.72 kg/m2 [facility] 05-06-2019 09:12-0500 Body Temperature 98.01 [degF] [facility] 05-06-2019 09:12-0500 Body weight 142.88 kg [facility] 05-06-2019 09:12-0500 BP Diastolic 86 mm[Hg] [facility] 05-06-2019 09:12-0500 BP Systolic 154 mm[Hg] [facility] 05-06-2019 09:12-0500 Height 182.9 cm [facility] 05-06-2019 09:12-0500 Pulse (Heart Rate) 85 /min [facility] 05-06-2019 09:12-0500 Pulse Oximetry 97 % [facility] 01-07-2019 09:14-0400 BMI (Body Mass Index) 42.72 kg/m2 [facility] 01-07-2019 09:14-0400 Body Temperature 98.01 [degF] [facility] 01-07-2019 09:14-0400 Body weight 142.88 kg [facility] 01-07-2019 09:14-0400 BP Diastolic 88 mm[Hg] [facility] 01-07-2019 09:14-0400 BP Systolic 132 mm[Hg] [facility] 01-07-2019 09:14-0400 Height 182.9 cm [facility] 01-07-2019 09:14-0400 Pulse (Heart Rate) 76 /min [facility] 01-07-2019 09:14-0400 Pulse Oximetry 97 % [facility] 09-03-2018 11:29-0400 BMI (Body Mass Index) 42.83 kg/m2 [facility] 09-03-2018 11:29-0400 Body Temperature 98.01 [degF] [facility] 09-03-2018 11:29-0400 BP Diastolic 88 mm[Hg] [facility] 09-03-2018 11:29-0400 BP Systolic 132 mm[Hg] [facility] 09-03-2018 11:29-0400 Height 182.9 cm [facility] 09-03-2018 11:29-0400 Pulse (Heart Rate) 72 /min [facility] 09-03-2018 11:29-0400 Pulse Oximetry 97 % [facility] 09-03-2018 11:29-0400 Weight 143.25 kg [facility] 05-03-2018 11:51-0500 BMI (Body Mass Index) 40.01 kg/m2 [facility] Work Phone: 05-03-2018 11:51-0500 Body Temperature 98.01 [degF] [facility] Work Phone: 05-03-2018 11:51-0500 BP Diastolic 80 mm[Hg] [facility] Work Phone: 05-03-2018 11:51-0500 BP Systolic 132 mm[Hg] [facility] Work Phone: 05-03-2018 11:51-0500 Height 182.9 cm [facility] Work Phone: 05-03-2018 11:51-0500 Pulse (Heart Rate) 89 /min [facility] Work Phone: 05-03-2018 11:51-0500 Pulse Oximetry 97 % [facility] Work Phone: 05-03-2018 11:51-0500 Weight 133.81 kg [facility] Work Phone: 03-29-2018 07:14-0500 Body Temperature 98.01 [degF] [facility] Work Phone: 03-29-2018 07:14-0500 BP Diastolic 84 mm[Hg] [facility] Work Phone: 03-29-2018 07:14-0500 BP Systolic 136 mm[Hg] [facility] Work Phone: 03-29-2018 07:14-0500 Height 182.9 cm [facility] Work Phone: 03-29-2018 07:14-0500 Pulse (Heart Rate) 80 /min [facility] Work Phone: 03-29-2018 07:14-0500 Pulse Oximetry 96 % Tra Vale [facility] Work Phone: Encounters Encounter Date Encounter Type Care Provider Facility Start: 01-07-2024 End: 01-07-2024 ambulatory Rodrigo Brink Facility:[facility] Start: 12-25-2023 End: 12-25-2023 ambulatory Rodrigo Brink Facility:[facility] Start: 10-01-2023 End: 10-01-2023 ambulatory [facility] Start: 10-01-2023 End: 10-01-2023 Patient encounter procedure Yusuf POLLARD [facility] Start: 09-20-2023 End: 09-20-2023 ambulatory Rodrigo Brink Facility:[facility] Start: 08-16-2023 End: 08-16-2023 ambulatory Rodrigo Brink Facility:[facility] Start: 07-31-2023 ambulatory SELF SELF [facility] Start: 07-31-2023 End: 07-31-2023 Office outpatient visit 25 minutes Tra Vale DO Work Phone: [facility] Comment on above: Psoriatic arthritis (Primary [...] anemia; Psoriasis; Plaque psoriasis; Hyperchromic anemia; Methotrexate, manager long term care, current use; Long-term current use of high risk medication other than anticoagulant; History of psoriatic arthritis; History of kidney stones; Abnormal renal function test; Vitamin D deficiency; Psoriatic spondylitis; 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 Start: 07-03-2023 End: 07-03-2023 ambulatory Rodrigo Brink [facility] Start: 07-03-2023 End: 07-03-2023 Patient encounter procedure Rodrigo Brink [facility] Start: 05-17-2023 End: 05-17-2023 [facility]ulatory [facility] Start: 04-06-2023 End: 04-06-2023 ambulatory Yusuf R BABATUNDE Facility: [facility] Start: 03-12-2023 End: 03-12-2023 ambulatory Rodrigo SharmaMichael Murali Facility:[facility] Start: 03-05-2023 End: 03-05-2023 ambulatory [facility] Brink [facility] Start: 02-15-2023 End: 02-15-2023 ambulatory Rodrigo SharmaMichael Murali Facility:[facility] Start: 01-23-2023 ambulatory [facility] Start: 01-23-2023 End: 01-23-2023 Office outpatient visit 15 minutes Tra Vale DO Work Phone: [place] [facility] Comment on above: Psoriatic arthritis (Primary Dx); 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; Psoriatic spondylitis; Plaque psoriasis; Psoriasis; SAPHO syndrome; History of kidney stones; History of psoriatic arthritis; Long-term current use of high risk medication other than anticoagulant; Methotrexate, longterm, current use; Vitamin D deficiency; DDD (degenerative [...] End: 11-15-2022 Lab Drop off Rodrigo Brink [facility] Start: 11-15-2022 ambulatory [facility] Start: 10-31-2022 End: 10-31-2022 Lab Drop off Yakelin Santiago [facility] Start: 09-08-2022 ambulatory KEESHA Rodriguez Facili ty:[facility] Start: 08-22-2022 ambulatory NARENDRANATH LAKSHMIPATHY . Facility:[facility] Start: 07-29-2022 End: 07-30-[address] RODRIGO LUZ . Facility:[facility] Start: 07-25-2022 End: 07-26-2022 ambulatory NARENDRANATH LAKSHMIPATHY . 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 Facility:[facility] Start: 05-23-2022 End: 05-24-2022 ambulatory TRA VALE Facility:[facility] Start: 04-10-2022 End: 05-30-2022 ambulatory FRACISCO ARCHULETA . Facility:[facility] Start: 03-22-2022 ambulatory [facility] Start: 03-21-2022 End: 03-22-2022 ambulatory ELEN GUSTAVO Facility:[facility] Start: 03-08-2022 End: 03-08-[address] RODRIGO LUZ . Facility:[facility] Start: 02-27-2022 End: 03-08-[address] RODRIGO LUZ . Facility:[facility] Start: 02-16-2022 End: 02-17-[address] PAXTON SOLANO . 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; Psoriatic spondylitis; Plaque psoriasis; Psoriasis; SAPHO syndrome; History of psoriatic arthritis; FPC current use of non-steroidal anti-inflammatories (NSAID); Long-term current use of high risk medication other than anticoagulant; Methotrexate, manager long term care, current use; Vitamin D deficiency Start: 11-24-2021 [...] VALE Facility:[facility] Start: 07-12-2021 ambulatory TRA VALE [facility] Start: 07-12-2021 End: 07-12-2021 Office outpatient visit 15 minutes Tra Vale DO Work Phone: [facility] Rhe[facility] Comment on above: Psoriatic arthropath y of distal interphalangeal (DIP) joint (Primary Dx); Psoriatic arthritis; Psoriatic spondylitis; Psoriasis; Plaque psoriasis; Anemia, unspecified type; Methotrexate, longterm, current use; Long-term current use of high risk medication other than anticoagulant; 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; 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-inflammatories (NSAID); History [...] visit 25 minutes Tra Vale Work Phone: [facility] Comment on above: Psoriatic arthritis (Primary Dx); 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; Psoriatic spondylitis; Psoriasis; SAPHO syndrome; History of psoriatic arthritis; FPC current use of non-steroidal anti-inflammatories (NSAID); Methotrexate, longterm, current use; Long-term current use of high [...] Start: 07-05-2020 End: 07-06-2020 ambulatory PILI ALLAN Facility:[facility] Start: 01-13-2020 End: 01-13-2020 Office outpatient visit 25 minutes Tra Vale Work Phone: [facility] Comment on above: Psoriatic arthritis (Primary Dx); Psoriasis; Plaque psoriasis; Methotrexate, manager long term care, current use; Long-term current use of high risk medication other than anticoagulant; 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; Psoriatic spondylitis; SAPHO syndrome; Anemia, unspecified type; History of psoriatic arthritis; 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-inflammatories (NSAID); 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; Long-term current use of high risk medication other than anticoagulant; Methotrexate, manager long term care, current use; Vitamin D deficiency; DDD [...] End: 01-10-2019 Patient encounter procedure Other Other [facility] [employer] Start: 01-10-2019 End: 01-10-2019 Telephone encounter Seda Bonilla [facility] Comment on above: Insurance ([place] 0.05%) Start: 01-07-2019 End: 01-07-2019 Refill Juju Green [facility] Comment on above: Psoriatic arthritis; Psoriatic spondylitis; Psoriasis; Plaque psoriasis; Anemia, unspecified type; Methotrexate, manager long term care, current use; Long-term current use of high risk medication other than anticoagulant; 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; FPC current use of non-steroidal anti-inflammatories (NSAID); History [...] visit 25 minutes Tra Vale [facility] Comment on above: Psoriatic arthritis (Primary Dx); Psoriatic spondylitis; Psoriasis; Plaque psoriasis; Anemia, unspecified type; Methotrexate, manager long term care, current use; Long-term current use of high risk medication other than anticoagulant; FPC current use of systemic steroids; FPC current use of non-steroidal anti-inflammatories (NSAID); History [...] Start: 11-08-2018 End: 11-08-2018 Outside Orders [facility] Work Phone: [facility] Start: 11-06-2018 End: 11-06-2018 Outside Orders Tra [facility] Work Phone: [facility] Start: 11-05-2018 End: 11-05-2018 Outside Orders Tra Pedro [facility] Work Phone: [facility] Start: 09-04-2018 End: 09-04-2018 Telephone encounter Juju Green [facility] Comment on above: Results Start: 09-03-2018 End: 09-03-2018 [facility] Comment on above: Vitamin D deficiency (Primary Dx) Start: 09-03-2018 End: 09-03-2018 [facility] above: Psoriatic arthritis (Primary Dx); 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; Psoriatic spondylitis; History of psoriatic arthritis; 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-inflammatories (NSAID); 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; Long-term current use of high risk medication other than anticoagulant; Methotrexate, manager long term care, current use; Noncompliance; Patient non adherence; Vitamin [...] End: 07-01-2018 Patient encounter procedure Other Other [facility] Start: 05-29-2018 End: 05-29-2018 Patient encounter procedure Juju Green [facility] Comment on above: Psoriatic arthritis; 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; Psoriatic spondylitis; SAPHO syndrome; Psoriasis; Anemia, unspecified type; 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-inflammatories (NSAID); FPC current use of systemic steroids; Methotrexate, manager long term care, current use; Long-term current use of [...] End: 05-28-2018 Patient encounter procedure Other Other [facility] Start: 05-24-2018 End: 05-24-2018 Patient encounter procedure Other Other [facility] Start: 05-15-2018 End: 05-15-2018 Patient encounter procedure Tra Vale Work Phone: [facility] Start: 05-07-2018 End: 05-07-2018 Telephone encounter Kamran Orlando Work Phone: [facility] Comment on above: Referral Start: 05-06-2018 End: 05-06-2018 Telephone encounter Kenyetta Emmanuel [facility] Comment on above: Referral Start: 05-03-2018 End: 05-03-2018 Office outpatient visit 40 minutes Tra Vale Work Phone: [facility] Comment on above: Psoriatic arthritis (Primary Dx); 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; Psoriatic spondylitis; SAPHO syndrome; Psoriasis; Anemia, unspecified type; 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-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 (NSAID); FPC current use of systemic steroids; Methotrexate, longterm, current use; Long-term current use of high risk medication other than anticoagulant; Vitamin D deficiency Start: 04-19-2018 End: 04-19-2018 Telephone encounter [facility] Comment on above: Insurance ([employer] ) Start: 04-17-2018 End: 04-17-2018 Telephone encounter Tra Vale Work Phone: [facility] Comment on above: Medication Managemen t Start: 04-16-2018 End: 04-16-2018 Telephone encounter [facility] Rheumatology Comment on above: Insurance ([employer] ) Start: 04-05-2018 End: 04-05-2018 Patient encounter procedure Tra Vale Work Phone: [facility] Start: 04-04-2018 End: 04-04-2018 Patient encounter procedure Tra Vale Work Phone: [facility] Start: 04-03-2018 End: 04-03-2018 Patient encounter procedure Juju Green [facility] Comment on above: Results Start: 04-01-2018 End: 04-01-2018 Patient encounter procedure Tra Vale Work Phone: [facility] Rhe[facility] Comment on above: Vitamin D deficiency (Primary Dx) Start: 03-29-2018 Patient encounter status Tra Vale Jr., DO Work Phone: [facility] Start: 03-29-2018 End: 03-29-2018 Office outpatient new 60 minutes Tra Vale Work Phone: [facility] Rheumatology Comment on above: Psoriatic arthritis (Primary Dx); 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; Psoriatic spondylitis; SAPHO syndrome; Psoriasis; Fatigue, unspecified type; History of psoriatic arthritis; FPC current use of non-steroidal anti-inflammatories (NSAID); FPC current use of systemic steroids; Methotrexate, manager long term care, current use; Long-term current use of [...] (OUTSIDE) Tra Vale Work Phone: [facility]ak[facility]DEC Comment on above: 1999 Coronary artery bypa ss graft operation planned [employer] Comment on above: 2003 Inguinal hernia (disorder) J catie Jack Comment on above: repair 2004 Plan of Treatment Date Care Activity Detail Author Start: 11-14-2029 Tetanus vaccination TETANUS [facility] Start: 03-20-2024 ambulatory Ambulatory Facility:[facility] Start: 01-29-2024 End: 01-29-2024 Patient encounter procedure 01/29/2024 11:00 AM EDT Office Visit [facility] [address] [place] [address] Tra Vale Jr., DO [address] [place] [address] [facility] Start: 01-15-2024 End: 07-30-2024 VITAMIN D [...] anemia Psoriasis Plaque psoriasis Hyperchromic anemia Methotrexate, longterm, current use Long-term current use of high risk medication other than anticoagulant History of psoriatic arthritis History of kidney stones Abnormal renal function test Vitamin D deficiency 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 Expected: 01/15/2024 (Approximate), Expires: 07[facility]30/[facility]24 [facility] Comment on above: Expected: 01/15/2024 (Approximate), Expi [...] anemia Psoriasis Plaque psoriasis Hyperchromic anemia Methotrexate, manager long term care, current use Long-term current use of high risk medication other than anticoagulant History of psoriatic arthritis History of kidney stones Abnormal renal function test Vitamin D deficiency 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 Expected: 01/15/2024 (Approximate), Expires: 07/30/2024 [facility] Comment on above: Expected: 01/15/2024 (Approximate), Expi res: 07/30/2024 Start: 12-02-2023 Influenza vaccination INFLUENZA VACCINE (Season Ended) [facility] Start: 07-31-2023 End: 07-30-2024 VITAMIN D [...] anemia Psoriasis Plaque psoriasis Hyperchromic anemia Methotrexate, longterm, current use Long-term current use of high risk medication other than anticoagulant History of psoriatic arthritis History of kidney stones Abnormal renal function test Vitamin D deficiency 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 Expected: 07/31/2023, Expires: 07/30/2024 [facility] Comment on above: Expected: 07/31/2023, Expires: [...] anemia Psoriasis Plaque psoriasis Hyperchromic anemia Methotrexate, manager long term care, current use Long-term current use of high risk medication other than anticoagulant History of psoriatic arthritis History of kidney stones Abnormal renal function test Vitamin D deficiency 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 Expected: 07/31/2023, Expires: 07/30/2024 [facility] Comment on above: Expected: 07/31/2023, Expires: Start: 07-31-2023 End: 07-31-2023 Patient encounter procedure 07/31/2023 9:00 AM EDT Office Visit [facility] [address] [place] [id number] Ela Vidales, Tra Vasquez, DO [address] [place] [id number] [facility] Start: 07-11-2023 End: 01-24-2024 VITAMIN D (25-HYDROXY,TOTAL) VITAMIN D (25-HYDROXY,TOTAL) Lab Routine Psoriatic arthritis 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 Psoriatic spondylitis Plaque psoriasis Psoriasis SAPHO syndrome History of kidney stones History of psoriatic arthritis Long-term current use of high risk medication other than anticoagulant Methotrexate, manager long term care, current use Vitamin D deficiency DDD [...] both knees Expected: 07/11/2023 (Approximate), Expires: 01/24/2024 [facility] Comment on above: Expected: 07/11/2023 (Approximate), Expi res: 01/24/2024 Start: 07-11-2023 End: 01-24-2024 VITAMIN D, (1,25 DIHYDROXY) VITAMIN D, (1,25 DIHYDROXY) Lab Routine Psoriatic arthritis 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 Psoriatic spondylitis Plaque psoriasis Psoriasis SAPHO syndrome History of kidney stones History of psoriatic arthritis Long-term current use of high risk medication other than anticoagulant Methotrexate, manager long term care, current use Vitamin D deficiency DDD [...] both knees Expected: 07/11/2023 (Approximate), Expires: 01/24/2024 [facility] Comment on above: Expected: 07/11/2023 (Approximate), Expi res: 01/24/2024 Start: 01-23-2023 End: 01-23-2023 Patient encounter procedure 01/23/2023 Office Visit Rheumatology Ela Vidales, Tra Vasquez, DO [address] [place] [address] [facility] Start: 01-19-2023 End: 07-26-2023 VITAMIN D (25-HYDROXY,TOTAL) VITAMIN D (25-HYDROXY,TOTAL) Lab Routine Psoriatic arthritis 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 Psoriatic spondylitis Macrocytic anemia Plaque psoriasis Psoriasis SAPHO syndrome History of kidney stones History of psoriatic arthritis 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-inflammatories (NSAID) Long-term current use of high risk medication other than anticoagulant Methotrexate, longterm, current use Abnormal renal function test Vitamin [...] both knees Expected: 01/19/2023 (Approximate), Expires: 07/26/2023 [facility] Comment on above: Expected: 01/19/2023 (Approximate), Expi res: 07/26/2023 Start: 01-19-2023 End: 07-26-2023 VITAMIN D, (1,25 DIHYDROXY) VITAMIN D, (1,25 DIHYDROXY) Lab Routine Psoriatic arthritis 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 Psoriatic spondylitis Macrocytic anemia Plaque psoriasis Psoriasis SAPHO syndrome History of kidney stones History of psoriatic arthritis FPC current use of non-steroidal anti-inflammatories (NSAID) Long-term current use of high risk medication other than anticoagulant Methotrexate, manager long term care, current use Abnormal renal function test [...] both knees Expected: 01/19/2023 (Approximate), Expires: 07/26/2023 [facility] Comment on above: Expected: 01/19/2023 (Approximate), Expi res: 07/26/2023 Start: 12-01-2022 COVID-19 VACCINE ( season) COVID-19 VACCINE () [facility] Start: 12-01-2022 Influenza vaccination [facility] Start: 08-10-2022 End: 07-26-2023 Urea nitrogen [Mass/volume] in Serum or Plasma BUN Lab Routine Psoriatic arthritis 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 Psoriatic spondylitis Macrocytic anemia Plaque psoriasis Psoriasis SAPHO syndrome History of kidney stones History of psoriatic arthritis 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-inflammatories (NSAID) Long-term current use of high risk medication other than anticoagulant Methotrexate, manager long term care, current use Abnormal renal function test [...] both knees Expected: 08/10/2022 (Approximate), Expires: 07/26/2023 [facility] Comment on above: Expected: 08/10/2022 (Approximate), Expi res: 07/26/2023 Start: 08-10-2022 End: 07-26-2023 Urinalysis dipstick W Reflex Microscopic panel - Urine URINE MICROSCOPIC Fluids Routine Psoriatic arthritis 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 Psoriatic spondylitis Macrocytic anemia Plaque psoriasis Psoriasis SAPHO syndrome History of kidney stones History of psoriatic arthritis FPC current use of non-steroidal anti-inflammatories (NSAID) Long-term current use of high risk medication other than anticoagulant Methotrexate, manager long term care, current use Abnormal renal function test [...] both knees Expected: 08/10/2022 (Approximate), Expires: 07/26/2023 [facility] Comment on above: Expected: 08/10/2022 (Approximate), Expi res: 07/26/2023 Start: 08-10-2022 End: 07-26-2023 Urinalysis, reagent strip without microscopy URINALYSIS, MACRO Fluids Routine Psoriatic arthritis 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 Psoriatic spondylitis Macrocytic anemia Plaque psoriasis Psoriasis SAPHO syndrome History of kidney stones History of psoriatic arthritis 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 DO [address] [place] [phone] [facility] Rheumatology Start: 01-10-2022 End: 01-10-2023 VITAMIN D, (1,25 DIHYDROXY) [facility] Comment on above: Expected: 01/10/2022 (Approximate), Expi res: 01/10/2023 Start: 01-10-2022 End: 01-10-2022 Patient encounter procedure 01/10/2022 Office Visit Rheumatology Tra Vale Jr., DO [address] [place] [phone] [facility] Rheumat[facility] Start: 12-01-2021 Influenza vaccination [facility] Start: 07-12-2021 End: 07-12-2022 VITAMIN D, (1,25 DIHYDROXY) [facility] Comment on above: Expected: 07/12/2021 (Approximate), Expi res: 07/12/2022 Start: 01-11-2021 End: 01-11-2021 Office Visit 01/11/2021 Office Visit Rheumatology Tra Vale Jr., DO [address] [place] [phone] [facility] Start: 12-01-2020 Influenza vaccination INFLUENZA VACCINE (Season Ended) [facility] Start: 11-02-2020 COVID-19 VACCINE (3 - Booster for Pfizer series) COVID-19 VACCINE (3 - Booster for Pfizer series) [facility] Start: 07-13-2020 End: 07-13-2020 Office Visit 07/13/2020 Office Visit Rheumatology Tra Vale Jr., DO [address] [place] [phone] [facility] Start: 02-11-2020 End: 09-08-2020 VITAMIN D (25-HYDROXY,TOTAL) VITAMIN D (25-HYDROXY,TOTAL) Lab Routine Psoriatic arthritis 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 Psoriatic spondylitis Psoriasis SAPHO syndrome History of psoriatic arthritis FPC current use of non-steroidal anti-inflammatories (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, longterm, current use Long-term current use of high [...] Plaque psoriasis Expected: 02/11/2020 (Approximate), Expires: 09/08/2020 [facility] Comment on above: Expected: 02/11/2020 (Approximate), Expi res: 09/08/2020 Start: 02-11-2020 End: 09-08-2020 VITAMIN D, (1,25 DIHYDROXY) VITAMIN D, (1,25 DIHYDROXY) Lab Routine Psoriatic arthritis 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 Psoriatic spondylitis Psoriasis SAPHO syndrome History of psoriatic arthritis FPC current use of non-steroidal anti-inflammatories (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, manager long term care, current use Long-term current use of [...] Plaque psoriasis Expected: 02/11/2020 (Approximate), Expires: 09/08/2020 [facility] Comment on above: Expected: 02/11/2020 (Approximate), Expi res: 09/08/2020 Start: 01-13-2020 End: 01-13-2020 Office Visit 01/13/2020 Office Visit Rheumatology Tra Vale Jr., DO [address] [place] [phone] [facility] Start: 12-02-2019 Influenza vaccination [facility] Start: 09-09-2019 End: 09-09-2019 Office Visit 09/09/2019 Office Visit Rheumatology Tra Vale Jr., DO [address] [place] [address] [phone] [facility] Start: 09-04-2019 End: 05-06-2020 VITAMIN D (25-HYDROXY,TOTAL) VITAMIN D (25-HYDROXY,TOTAL) Lab Routine Psoriatic arthritis 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 Anemia, unspecified type History of psoriatic arthritis 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-inflammatories (NSAID) 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 Long-term current use of high risk medication other than anticoagulant Methotrexate, longterm, current use Vitamin D deficiency DDD (degenerative [...] psoriasis Psoriasis Expected: 09/04/2019 (Approximate), Expires: 05/06/2020 [facility] Comment on above: Expected: 09/04/2019 (Approximate), Expi res: 05/06/2020 Start: 09-04-2019 End: 05-06-2020 VITAMIN D, (1,25 DIHYDROXY) VITAMIN D, (1,25 DIHYDROXY) Lab Routine Psoriatic arthritis 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 Anemia, unspecified type History of psoriatic arthritis FPC current use of non-steroidal anti-inflammatories (NSAID) FPC current use of systemic steroids Long-term current use of high risk medication other than anticoagulant Methotrexate, longterm, current use Vitamin D deficiency DDD (degenerative [...] psoriasis Psoriasis Expected: 09/04/2019 (Approximate), Expires: 05/06/2020 [employer] Comment on above: Expected: 09/04/2019 (Approximate), Expi res: 05/06/2020 Start: 05-06-2019 End: 05-06-2019 Office Visit 05/06/2019 Office Visit Rheumatology Ela Vidales, Tra Vasquez, DO [address] [place] [phone] [facility] Start: 03-29-2019 End: 03-29-2019 JOVAN MULTIPLEX SCRN WITH REFLEX JOVAN MULTIPLEX SCRN WITH REFLEX Routine Psoriatic arthritis 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 Psoriasis Fatigue, unspecified type History of psoriatic arthritis 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-inflammatories (NSAID) FPC current use of 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, longterm, current use Long-term current use of high risk medication other than anticoagulant Lumbosacral spondylosis without myelopathy Disorder of bone and cartilage Plaque psoriasis Cervicalgia Dorsalgia Chronic pain of both shoulders Bilateral elbow joint pain Bilateral wrist pain Bilateral hand pain Chronic pain of both knees Expected: 03/29/2019 (Approximate), Expires: 03/29/2019 [facility] Work Phone: Comment on above: Expected: 03/29/2019 (Approximate), Expi res: 03/29/2019 Start: 03-29-2019 End: 03-29-2019 ANCA INIT SCRN (ANCA, PR3AB, MPO) ANCA INIT SCRN (ANCA, PR3AB, MPO) Routine Psoriatic arthritis 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 Psoriasis Fatigue, unspecified type History of psoriatic arthritis 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-inflammatories (NSAID) 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, longterm, current use Long-term current use of high risk medication other than anticoagulant Lumbosacral spondylosis without myelopathy Disorder of bone and cartilage Plaque psoriasis Cervicalgia Dorsalgia Chronic pain of both shoulders Bilateral elbow joint pain Bilateral wrist pain Bilateral hand pain Chronic pain of both knees Expected: 03/29/2019 (Approximate), Expires: 03/29/2019 [facility] Work Phone: Comment on above: Expected: 03/29/2019 (Approximate), Expi res: 03/29/2019 Start: 03-29-2019 End: 03-29-2019 ANGIOTENSIN CONVERTING ENZYME ANGIOTENSIN CONVERTING ENZYME Routine Psoriatic arthritis 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 Psoriasis Fatigue, unspecified type History of psoriatic arthritis FPC current use of non-steroidal anti-inflammatories (NSAID) FPC current use of 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, manager long term care, current use Long-term current use of high risk medication other than anticoagulant Lumbosacral spondylosis without myelopathy Disorder of bone and cartilage Plaque psoriasis Cervicalgia Dorsalgia Chronic pain of both shoulders Bilateral elbow joint pain Bilateral wrist pain Bilateral hand pain Chronic pain of both knees Expected: 03/29/2019 (Approximate), Expires: 03/29/2019 [facility] Work Phone: Comment on above: Expected: 03/29/2019 (Approximate), Expi res: 03/29/2019 Start: 03-29-2019 End: 03-29-2019 CBC,PLATELETS CBC,PLATELETS Routine Psoria tic arthritis 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 Psoriasis Fatigue, unspecified type History of psoriatic arthritis FPC current use of non-steroidal anti-inflammatories (NSAID) FPC current use of 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, manager long term care, current use Long-term current use of high risk medication other than anticoagulant Lumbosacral spondylosis without myelopathy Disorder of bone and cartilage Plaque psoriasis Cervicalgia Dorsalgia Chronic pain of both shoulders Bilateral elbow joint pain Bilateral wrist pain Bilateral hand pain Chronic pain of both knees Expected: 03/29/2019 (Approximate), Expires: 03/29/2019 [facility] Work Phone: Comment on above: Expected: 03/29/2019 (Approximate), Expi res: 03/29/2019 Start: 03-29-2019 End: 03-29-2019 CK CK Routine Psoriatic arthrit is 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 Psoriasis Fatigue, unspecified type History of psoriatic arthritis 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-inflammatories (NSAID) 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, longterm, current use Long-term current use of high risk medication other than anticoagulant Lumbosacral spondylosis without myelopathy Disorder of bone and cartilage Plaque psoriasis Cervicalgia Dorsalgia Chronic pain of both shoulders Bilateral elbow joint pain Bilateral wrist pain Bilateral hand pain Chronic pain of both knees Expected: 03/29/2019 (Approximate), Expires: 03/29/2019 [facility] Work Phone: Comment on above: Expected: 03/29/2019 (Approximate), Expi res: 03/29/2019 Start: 03-29-2019 End: 03-29-2019 Comprehensive metabolic 2000 panel - Serum or Plasma COMPREHENSIVE METABOLIC PANEL Routine Psoriatic arthritis 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 Psoriasis Fatigue, unspecified type History of psoriatic arthritis FPC current use of non-steroidal anti-inflammatories (NSAID) 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, longterm, current use Long-term current use of high risk medication other than anticoagulant Lumbosacral spondylosis without myelopathy Disorder of bone and cartilage Plaque psoriasis Cervicalgia Dorsalgia Chronic pain of both shoulders Bilateral elbow joint pain Bilateral wrist pain Bilateral hand pain Chronic pain of both knees Expected: 03/29/2019 (Approximate), Expires: 03/29/2019 [facility] Work Phone: Comment on above: Expected: 03/29/2019 (Approximate), Expi res: 03/29/2019 Start: 03-29-2019 End: 03-29-2019 CRP mass conc C REACTIVE PROTEIN Routine Psoriatic arthritis 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 Psoriasis Fatigue, unspecified type History of psoriatic arthritis 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-inflammatories (NSAID) 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, longterm, current use Long-term current use of high risk medication other than anticoagulant Lumbosacral spondylosis without myelopathy Disorder of bone and cartilage Plaque psoriasis Cervicalgia Dorsalgia Chronic pain of both shoulders Bilateral elbow joint pain Bilateral wrist pain Bilateral hand pain Chronic pain of both knees Expected: 03/29/2019 (Approximate), Expires: 03/29/2019 [facility] Work Phone: Comment on above: Expected: 03/29/2019 (Approximate), Expi res: 03/29/2019 Start: 03-29-2019 End: 03-29-2019 CYCLIC CITRULLINATE PEPTIDE AB CYCLIC CITRULLINATE PEPTIDE AB Routine Psoriatic arthritis 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 Psoriasis Fatigue, unspecified type History of psoriatic arthritis 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-inflammatories (NSAID) 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, longterm, current use Long-term current use of high risk medication other than anticoagulant Lumbosacral spondylosis without myelopathy Disorder of bone and cartilage Plaque psoriasis Cervicalgia Dorsalgia Chronic pain of both shoulders Bilateral elbow joint pain Bilateral wrist pain Bilateral hand pain Chronic pain of both knees Expected: 03/29/2019 (Approximate), Expires: 03/29/2019 [facility] Work Phone: Comment on above: Expected: 03/29/2019 (Approximate), Expi res: 03/29/2019 Start: 03-29-2019 End: 03-29-2019 HEPATITIS A, B, C HEPATITIS A, B, C Routine Psoriatic arthritis 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 Psoriasis Fatigue, unspecified type History of psoriatic arthritis FPC current use of non-steroidal anti-inflammatories (NSAID) FPC current use of 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, longterm, current use Long-term current use of high risk medication other than anticoagulant Lumbosacral spondylosis without myelopathy Disorder of bone and cartilage Plaque psoriasis Cervicalgia Dorsalgia Chronic pain of both shoulders Bilateral elbow joint pain Bilateral wrist pain Bilateral hand pain Chronic pain of both knees Expected: 03/29/2019 (Approximate), Expires: 03/29/2019 [facility] Work Phone: Comment on above: Expected: 03/29/2019 (Approximate), Expi res: 03/29/2019 Start: 03-29-2019 End: 03-29-2019 HLA-B27 HLA-B27 Routine Psoriatic arthritis 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 Psoriasis Fatigue, unspecified type History of psoriatic arthritis 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-inflammatories (NSAID) FPC current use of 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, manager long term care, current use Long-term current use of high risk medication other than anticoagulant Lumbosacral spondylosis without myelopathy Disorder of bone and cartilage Plaque psoriasis Cervicalgia Dorsalgia Chronic pain of both shoulders Bilateral elbow joint pain Bilateral wrist pain Bilateral hand pain Chronic pain of both knees Expected: 03/29/2019 (Approximate), Expires: 03/29/2019 [facility] Work Phone: Comment on above: Expected: 03/29/2019 (Approximate), Expi res: 03/29/2019 Start: 03-29-2019 End: 03-29-2019 PATRICK AND PE, SERUM PATRICK AND PE, SERUM Routine Psoriatic arthritis 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 Psoriasis Fatigue, unspecified type History of psoriatic arthritis 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-inflammatories (NSAID) FPC current use of 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, longterm, current use Long-term current use of high risk medication other than anticoagulant Lumbosacral spondylosis without myelopathy Disorder of bone and cartilage Plaque psoriasis Cervicalgia Dorsalgia Chronic pain of both shoulders Bilateral elbow joint pain Bilateral wrist pain Bilateral hand pain Chronic pain of both knees Expected: 03/29/2019 (Approximate), Expires: 03/29/2019 [facility] Work Phone: Comment on above: Expected: 03/29/2019 (Approximate), Expi res: 03/29/2019 Start: 03-29-2019 End: 03-29-2019 MAGNESIUM MAGNESIUM Routine Psoriatic arthritis 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 Psoriasis Fatigue, unspecified type History of psoriatic arthritis FPC current use of non-steroidal anti-inflammatories (NSAID) 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, manager long term care, current use Long-term current use of high risk medication other than anticoagulant Lumbosacral spondylosis without myelopathy Disorder of bone and cartilage Plaque psoriasis Cervicalgia Dorsalgia Chronic pain of both shoulders Bilateral elbow joint pain Bilateral wrist pain Bilateral hand pain Chronic pain of both knees Expected: 03/29/2019 (Approximate), Expires: 03/29/2019 [facility] Work Phone: Comment on above: Expected: 03/29/2019 (Approximate), Expi res: 03/29/2019 Start: 03-29-2019 End: 03-29-2019 RHEUMATOID FACTOR RHEUMATOID FACTOR Routine Psoriatic arthritis 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 Psoriasis Fatigue, unspecified type History of psoriatic arthritis FPC current use of non-steroidal anti-inflammatories (NSAID) FPC current use of 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, manager long term care, current use Long-term current use of high risk medication other than anticoagulant Lumbosacral spondylosis without myelopathy Disorder of bone and cartilage Plaque psoriasis Cervicalgia Dorsalgia Chronic pain of both shoulders Bilateral elbow joint pain Bilateral wrist pain Bilateral hand pain Chronic pain of both knees Expected: 03/29/2019 (Approximate), Expires: 03/29/2019 [facility] Work Phone: Comment on above: Expected: 03/29/2019 (Approximate), Expi res: 03/29/2019 Start: 03-29-2019 End: 03-29-2019 SEDIMENTATION RATE, AUTOMATED SEDIMENTATION RATE, AUTOMATED Routine Psoriatic arthritis 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 Psoriasis Fatigue, unspecified type History of psoriatic arthritis 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-inflammatories (NSAID) FPC current use of 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, manager long term care, current use Long-term current use of high risk medication other than anticoagulant Lumbosacral spondylosis without myelopathy Disorder of bone and cartilage Plaque psoriasis Cervicalgia Dorsalgia Chronic pain of both shoulders Bilateral elbow joint pain Bilateral wrist pain Bilateral hand pain Chronic pain of both knees Expected: 03/29/2019 (Approximate), Expires: 03/29/2019 [facility] Work Phone: Comment on above: Expected: 03/29/2019 (Approximate), Expi res: 03/29/2019 Start: 03-29-2019 End: 03-29-2019 T-TRANSGLUTAMINASE IGA AB T-TRANSGLUTAMINASE IGA AB Routine Psoriatic arthritis 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 Psoriasis Fatigue, unspecified type History of psoriatic arthritis 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-inflammatories (NSAID) FPC current use of 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, longterm, current use Long-term current use of high risk medication other than anticoagulant Lumbosacral spondylosis without myelopathy Disorder of bone and cartilage Plaque psoriasis Cervicalgia Dorsalgia Chronic pain of both shoulders Bilateral elbow joint pain Bilateral wrist pain Bilateral hand pain Chronic pain of both knees Expected: 03/29/2019 (Approximate), Expires: 03/29/2019 [facility] Work Phone: Comment on above: Expected: 03/29/2019 (Approximate), Expi res: 03/29/2019 Start: 03-29-2019 End: 03-29-2019 TESTOSTERONE TESTOSTERONE Routine Psoriat ic arthritis 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 Psoriasis Fatigue, unspecified type History of psoriatic arthritis 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-inflammatories (NSAID) 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, longterm, current use Long-term current use of high risk medication other than anticoagulant Lumbosacral spondylosis without myelopathy Disorder of bone and cartilage Plaque psoriasis Cervicalgia Dorsalgia Chronic pain of both shoulders Bilateral elbow joint pain Bilateral wrist pain Bilateral hand pain Chronic pain of both knees Expected: 03/29/2019 (Approximate), Expires: 03/29/2019 [facility] Work Phone: Comment on above: Expected: 03/29/2019 (Approximate), Expi res: 03/29/2019 Start: 03-29-2019 End: 03-29-2019 Thyrotropin Qn TSH Routine Psoriatic arthri tis 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 Psoriasis Fatigue, unspecified type History of psoriatic arthritis FPC current use of non-steroidal anti-inflammatories (NSAID) 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, manager long term care, current use Long-term current use of high risk medication other than anticoagulant Lumbosacral spondylosis without myelopathy Disorder of bone and cartilage Plaque psoriasis Cervicalgia Dorsalgia Chronic pain of both shoulders Bilateral elbow joint pain Bilateral wrist pain Bilateral hand pain Chronic pain of both knees Expected: 03/29/2019 (Approximate), Expires: 03/29/2019 [facility] Work Phone: Comment on above: Expected: 03/29/2019 (Approximate), Expi res: 03/29/2019 Start: 03-29-2019 End: 03-29-2019 Urate mass conc URIC ACID Routine Psoriatic arthritis 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 Psoriasis Fatigue, unspecified type History of psoriatic arthritis 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-inflammatories (NSAID) FPC current use of 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, longterm, current use Long-term current use of high risk medication other than anticoagulant Lumbosacral spondylosis without myelopathy Disorder of bone and cartilage Plaque psoriasis Cervicalgia Dorsalgia Chronic pain of both shoulders Bilateral elbow joint pain Bilateral wrist pain Bilateral hand pain Chronic pain of both knees Expected: 03/29/2019 (Approximate), Expires: 03/29/2019 [facility] Work Phone: Comment on above: Expected: 03/29/2019 (Approximate), Expi res: 03/29/2019 Start: 03-29-2019 End: 03-29-2019 VITAMIN D (25-HYDROXY,TOTAL) VITAMIN D (25-HYDROXY,TOTAL) Routine Psoriatic arthritis 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 Psoriasis Fatigue, unspecified type History of psoriatic arthritis FPC current use of non-steroidal anti-inflammatories (NSAID) 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, longterm, current use Long-term current use of high risk medication other than anticoagulant Lumbosacral spondylosis without myelopathy Disorder of bone and cartilage Plaque psoriasis Cervicalgia Dorsalgia Chronic pain of both shoulders Bilateral elbow joint pain Bilateral wrist pain Bilateral hand pain Chronic pain of both knees Expected: 03/29/2019 (Approximate), Expires: 03/29/2019 [facility] Work Phone: Comment on above: Expected: 03/29/2019 (Approximate), Expi res: 03/29/2019 Start: 03-29-2019 End: 03-29-2019 VITAMIN D, (1,25 DIHYDROXY) VITAMIN D, (1,25 DIHYDROXY) Routine Psoriatic arthritis 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 Psoriasis Fatigue, unspecified type History of psoriatic arthritis FPC current use of non-steroidal anti-inflammatories (NSAID) FPC current use of 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, longterm, current use Long-term current use of high risk medication other than anticoagulant Lumbosacral spondylosis without myelopathy Disorder of bone and cartilage Plaque psoriasis Cervicalgia Dorsalgia Chronic pain of both shoulders Bilateral elbow joint pain Bilateral wrist pain Bilateral hand pain Chronic pain of both knees Expected: 03/29/2019 (Approximate), Expires: 03/29/2019 [facility] Work Phone: Comment on above: Expected: 03/29/2019 (Approximate), Expi res: 03/29/2019 Start: 01-07-2019 End: 01-07-2019 [facility] Start: 12-04-2018 End: 09-04-2019 VITAMIN D (25-HYDROXY,TOTAL) VITAMIN D (25-HYDROXY,TOTAL) Lab Routine Vitamin D deficiency Expected: 12/04/2018 (Approximate), Expires: 09/04/2019 [facility] Comment on above: Expected: 12/04/2018 (Approximate), Expi res: 09/04/2019 Start: 12-04-2018 End: 09-04-2019 VITAMIN D, (1,25 DIHYDROXY) VITAMIN D, (1,25 DIHYDROXY) Lab Routine Vitamin D deficiency Expected: 12/04/2018 (Approximate), Expires: 09/04/2019 [facility] Comment on above: Expected: 12/04/2018 (Approximate), Expi res: 09/04/2019 Start: 12-01-2018 Influenza vaccination [employer] Start: 09-06-2018 End: 09-06-2018 Ambulatory 09/06/2018 [facility] Tra Vasquez, DO [address] [place] [address] [phone] [facility] Start: 09-03-2018 End: 09-04-2019 VITAMIN D (25-HYDROXY,TOTAL) [employer] Comment on above: Expected: 09/03/2018 (Approximate), Expi res: 09/04/2019 Expected: 09/03/2018 , Expires: 09/03/2019 Start: 09-03-2018 End: 09-04-2019 VITAMIN D, (1,25 DIHYDROXY) [employer] Comment on above: Expected: 09/03/2018 (Approximate), Expi res: 09/04/2019 Expected: 09/03/2018 , Expires: 09/03/2019 Start: 06-30-2018 End: 04-01-2019 VITAMIN D (25-HYDROXY,TOTAL) VITAMIN D (25-HYDROXY,TOTAL) Routine Vitamin D deficiency Expected: 06/30/2018 (Approximate), Expires: [facility]/01/2019 [facility] Phone: Comment on above: Expected: 06/30/2018 (Approximate), Expi res: 04/01/2019 Start: 06-30-2018 End: 04-01-2019 VITAMIN D, (1,25 DIHYDROXY) VITAMIN D, (1,25 DIHYDROXY) Routine Vitamin D deficiency Expected: 06/30/2018 (Approximate), Expires: 04/01/2019 [facility] Work Phone: Comment on above: Expected: 06/30/2018 (Approximate), Expi res: 04/01/2019 Start: 05-09-2018 End: 05-09-2018 Ambulatory 05/09/2018 Office Visit Rheumatology Tra Vale Jr., DO [address] [place] [id number] [phone] [facility] Start: 05-03-2018 End: 05-03-2018 Ambulatory 05/03/2018 Office Visit Rheumatology Tra Vale Jr., DO [address] [place] [id number] [phone] [facility] Rhe[facility] Start: 03-29-2018 End: 03-29-2019 Diagnostic radiography of lumbar spine XR SPINE LUMBOSACRAL 5 VIEWS Routine Psoriatic arthritis 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 Psoriasis Fatigue, unspecified type History of psoriatic arthritis 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-inflammatories (NSAID) 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, manager long term care, current use Long-term current use of high risk medication other than anticoagulant Lumbosacral spondylosis without myelopathy Disorder of bone and cartilage Plaque psoriasis Cervicalgia Dorsalgia Chronic pain of both shoulders Bilateral elbow joint pain Bilateral wrist pain Bilateral hand pain Chronic pain of both knees Expected: 03/29/2018, Expires: 03/29/2019 [facility] Work Phone: Comment on above: Expected: 03/29/2018, Expires: 9 Start: 03-29-2018 End: 03-29-2019 Diagnostic radiography of sacroiliac joints XR SACROILIAC JOINTS MIN 3 VIEWS Routine Psoriatic arthritis 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 Psoriasis Fatigue, unspecified type History of psoriatic arthritis 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-inflammatories (NSAID) 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, manager long term care, current use Long-term current use of high risk medication other than anticoagulant Lumbosacral spondylosis without myelopathy Disorder of bone and cartilage Plaque psoriasis Cervicalgia Dorsalgia Chronic pain of both shoulders Bilateral elbow joint pain Bilateral wrist pain Bilateral hand pain Chronic pain of both knees Expected: 03/29/2018, Expires: 03/29/2019 [facility] Work Phone: Comment on above: Expected: 03/29/2018, Expires: 9 Start: 03-29-2018 End: 03-29-2019 M TUBERCULOSIS BY QUANTIFERON, BLD M TUBERCULOSIS BY QUANTIFERON, BLD Routine Psoriatic arthritis 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 Psoriasis Fatigue, unspecified type History of psoriatic arthritis FPC current use of non-steroidal anti-inflammatories (NSAID) FPC current use of 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, manager long term care, current use Long-term current use of high risk medication other than anticoagulant Lumbosacral spondylosis without myelopathy Disorder of bone and cartilage Plaque psoriasis Cervicalgia Dorsalgia Chronic pain of both shoulders Bilateral elbow joint pain Bilateral wrist pain Bilateral hand pain Chronic pain of both knees Expected: 03/29/2018 (Approximate), Expires: 03/29/2019 [facility] Work Phone: Comment on above: Expected: 03/29/2018 (Approximate), Expi res: 03/29/2019 Start: 03-29-2018 End: 03-29-2019 Radiography of cervical spine XR SPINE CERVICAL WITH OBL AND FLEX/EXT Routine Psoriatic arthritis 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 Psoriasis Fatigue, unspecified type History of psoriatic arthritis FPC current use of non-steroidal anti-inflammatories (NSAID) 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, longterm, current use Long-term current use of high risk medication other than anticoagulant Lumbosacral spondylosis without myelopathy Disorder of bone and cartilage Plaque psoriasis Cervicalgia Dorsalgia Chronic pain of both shoulders Bilateral elbow joint pain Bilateral wrist pain Bilateral hand pain Chronic pain of both knees Expected: 03/29/2018, Expires: 03/29/2019 [facility] Work Phone: Comment on above: Expected: 03/29/2018, Expires: Start: 03-29-2018 End: 03-29-2019 Radiography of hand XR HANDS-RHEUMATOLOGY EVAL O NLY Routine Psoriatic arthritis 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 Psoriasis Fatigue, unspecified type History of psoriatic arthritis FPC current use of non-steroidal anti-inflammatories (NSAID) 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, manager long term care, current use Long-term current use of high risk medication other than anticoagulant Lumbosacral spondylosis without myelopathy Disorder of bone and cartilage Plaque psoriasis Cervicalgia Dorsalgia Chronic pain of both shoulders Bilateral elbow joint pain Bilateral wrist pain Bilateral hand pain Chronic pain of both knees Expected: 03/29/2018, Expires: 03/29/2019 [facility] Work Phone: Comment on above: Expected: 03/29/2018, Expires: Start: 03-29-2018 End: 03-29-2019 Radiography of shoulder [facility] Work Phone: Comment on above: Expected: 03/29/2018, Expires: Start: 03-29-2018 End: 03-29-2019 Radiography of wrist [facility] Work Phone: Comment on above: Expected: 03/29/2018, Expires: Start: 03-29-2018 End: 03-29-2019 Radiologic examination of knee [facility] Work Phone: Comment on above: Expected: 03/29/2018, Expires: 9 Start: 03-29-2018 End: 03-29-2019 X-ray of both knees XR KNEES BILATERAL STANDING 1 VIEW Routine Psoriatic arthritis 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 Psoriasis Fatigue, unspecified type History of psoriatic arthritis FPC current use of non-steroidal anti-inflammatories (NSAID) 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, longterm, current use Long-term current use of high risk medication other than anticoagulant Lumbosacral spondylosis without myelopathy Disorder of bone and cartilage Plaque psoriasis Cervicalgia Dorsalgia Chronic pain of both shoulders Bilateral elbow joint pain Bilateral wrist pain Bilateral hand pain Chronic pain of both knees Expected: 03/29/2018, Expires: 03/29/2019 [facility] Work Phone: Comment on above: Expected: 03/29/2018, Expires: 9 Start: 12-01-2017 Influenza vaccination INFLUENZA VACCINE (#1) [facility] Work Phone: Start: 2016 Colonoscopy [facility] Work Phone: Start: 2016 Prostate specific antigen measurement PROSTATE CANCER SCREENING DISCUSSION [facility] Start: 2016 Protein mass conc COLON CANCER SCREENING DISCUSSION [facility] Work Phone: Start: 2016 Zoster vaccine hzv live for subcutaneous use ZOSTER (SHINGLES) VACCINE (1 of 2) [facility] Start: 2011 Colonoscopy COLORECTAL CANCER SCREENING DISCUSSION [facility] Start: 2011 Screening for malignant neoplasm of colon COLORECTAL CANCER SCREENING DISCUSSION [facility] Start: 2006 Fasting lipid profile LIPID SCREENING [facility] Start: 2006 Lipid panel LIPID SCREENING [facility] Start: 1985 Hepatitis B vaccination HEP B VACCINE (1 of 3 - 19+ 3-dose series) [facility] Start: 1985 Third diphtheria, tetanus and acellular pertussis (DTaP) vaccination TDAP (ADULT) [facility] Start: 1984 Tetanus vaccination TETANUS [facility] Start: 1982 COVID-19 VACCINE (1) COVID-19 VACCINE (1) [facility] Start: 1981 HIV screening HIV SCREENING DISCUSSION [facility] Start: 1979 HIV screening HIV SCREENING DISCUSSION [facility] Work Phone: Start: 1971 COVID-19 VACCINE (1) COVID-19 VACCINE (1) [facility] Start: 1966 COVID-19 VACCINE (#1) COVID-19 VACCINE (#1) [facility] Start: 1966 Finding of potassium level (finding) POTASSIUM [facility] Start: 1966 Hepatitis B vaccination HEP B VACCINE (1 of 3 - 3-dose series) [facility] Start: 1966 Hepatitis C antibody, confirmatory test HEPATITIS C VIRUS SCREENING [facility] Start: 1966 Hepatitis C screening HEPATITIS C VIRUS SCREENING [facility] End: 07-12-2022 Alanine aminotransferase [Enzymatic activity/volume] in Serum or Plasma ALT Lab Routine Psoriatic arthritis Psoriatic spondylitis Psoriasis Plaque psoriasis Anemia, unspecified type Methotrexate, longterm, current use Long-term current use of high risk medication other than anticoagulant 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 FPC current use of non-steroidal anti-inflammatories (NSAID) History [...] Occurrences starting 07/12/2021 until 07/12/2022, 1 completed [facility] Comment on above: Every 8 Weeks for 6 Occurrences starting 07/12/2021 until 07/12/2022, 1 completed End: 01-10-2023 Alanine aminotransferase [Enzymatic activity/volume] in Serum or Plasma ALT Lab Routine Psoriatic arthritis 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 Psoriatic spondylitis Plaque psoriasis Psoriasis SAPHO syndrome History of psoriatic arthritis FPC current use of non-steroidal anti-inflammatories (NSAID) Long-term current use of high risk medication other than anticoagulant Methotrexate, manager long term care, current use Every 8 Weeks for 6 Occurrences starting 01/10/2022 until 01/10/2023 [facility] [employer] Comment on above: Every 8 Weeks for 6 Occurrences starting 01/10/2022 until 01/10/2023 End: 07-26-2023 Alanine aminotransferase [Enzymatic activity/volume] in Serum or Plasma ALT Lab Routine Psoriatic arthritis 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 Psoriatic spondylitis Macrocytic anemia Plaque psoriasis Psoriasis SAPHO syndrome History of kidney stones History of psoriatic arthritis 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-inflammatories (NSAID) Long-term current use of high risk medication other than anticoagulant Methotrexate, manager long term care, current use Abnormal renal function test [...] for 4 Occurrences starting 07/25/2022 until 07/26/2023 [employer] Comment on above: Every 12 Weeks for 4 Occurrences startin g 07/25/2022 until 07/26/2023 End: 01-24-2024 Alanine aminotransferase [Enzymatic activity/volume] in Serum or Plasma ALT Lab Routine Psoriatic arthritis 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 Psoriatic spondylitis Plaque psoriasis Psoriasis SAPHO syndrome History of kidney stones History of psoriatic arthritis Long-term current use of high risk medication other than anticoagulant Methotrexate, longterm, current use Vitamin D deficiency DDD (degenerative [...] for 4 Occurrences starting 01/23/2023 until 01/24/2024 [employer] [facility] Comment on above: Every 12 Weeks for [...] anemia Psoriasis Plaque psoriasis Hyperchromic anemia Methotrexate, longterm, current use Long-term current use of high risk medication other than anticoagulant History of psoriatic arthritis History of kidney stones Abnormal renal function test Vitamin D deficiency 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 Every 12 Weeks for 4 Occurrences starting 07/31/2023 until 07/30/2024 [employer] Comment on above: Every 12 Weeks for 4 Occurrences startin g 07/31/2023 until 07/30/2024 End: 09-08-2020 ALT [Catalytic activity/Vol] ALT Lab Routine Psoriatic arthritis 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 Psoriatic spondylitis Psoriasis SAPHO syndrome History of psoriatic arthritis FPC current use of non-steroidal anti-inflammatories (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, manager long term care, current use Long-term current use of [...] psoriasis 6 Occurrences starting 10/11/2019 until 09/08/2020 [employer] Comment on above: 6 Occurrences starting 10/11/2019 until 09/08/2020 End: 01-12-2021 ALT [Catalytic activity/Vol] ALT Lab Routine Psoriatic arthritis Psoriasis Plaque psoriasis Methotrexate, longterm, current use Long-term current use of high risk medication other than anticoagulant 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-inflammatories (NSAID) History [...] Occurrences starting 01/13/2020 until 01/12/2021, 1 completed [facility] Comment on above: 6 Occurrences starting 01/13/2020 until 01/12/2021, 1 completed End: 01-08-2020 ALT [Catalytic activity/Vol] ALT Lab Routine Psoriatic arthritis Psoriatic spondylitis Psoriasis Plaque psoriasis Anemia, unspecified type Methotrexate, manager long term care, current use Long-term current use of high risk medication other than anticoagulant 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 FPC current use of non-steroidal anti-inflammatories (NSAID) History [...] cervical 6 Occurrences starting 01/04/2019 until 01/08/2020 [employer] Comment on above: 6 Occurrences starting 01/04/2019 until 01/08/2020 End: 07-13-2021 ALT [Catalytic activity/Vol] ALT Lab Routine Psoriatic arthritis 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 Psoriatic spondylitis Psoriasis SAPHO syndrome History of psoriatic arthritis 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-inflammatories (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, manager long term care, current use Long-term current use of [...] Occurrences starting 09/12/2020 until 07/13/2021, 1 completed [facility] Comment on above: 6 Occurrences starting 09/12/2020 until 07/13/2021, 1 completed End: 05-03-2019 ALT enzyme act/vol ALT Routine Psoriatic arthri tis 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 Psoriasis Anemia, unspecified type FPC current use of non-steroidal anti-inflammatories (NSAID) FPC current use of 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, longterm, current use Long-term current use of high [...] psoriasis 6 Occurrences starting 05/30/2018 until 05/03/2019 [facility] Work Phone: Comment on above: 6 Occurrences starting 05/30/2018 until 05/03/2019 End: 09-04-2019 ALT enzyme act/vol ALTLabRoutinePsoriatic arthritisPsoriatic arthropathy of distal interphalangeal (DIP) jointPsoriatic spondylitisHistory of psoriatic arthritisLong term current use of non-steroidal anti-inflammatories (NSAID)FPC current use of systemic steroidsLong-term current use of high risk medication other than anticoagulantMethotrexate, manager long term care, current useNoncompliancePatient non adherenceVitamin D deficiencyDDD [...] starting 11/03/2018 until (more content not included)... 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-inflammatories (NSAID) History [...] Occurrences starting 07/12/2021 until 07/12/2022, 1 completed [employer] Comment on above: Every 8 Weeks for 6 Occurrences starting 07/12/2021 until 07/12/2022, 1 completed End: 01-10-2023 Aspartate aminotransferase [Enzymatic activity/volume] in Serum or Plasma AST Lab Routine Psoriatic arthritis 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 Psoriatic spondylitis Plaque psoriasis Psoriasis SAPHO syndrome History of psoriatic arthritis FPC current use of non-steroidal anti-inflammatories (NSAID) Long-term current use of high risk medication other than anticoagulant Methotrexate, longterm, current use Every 8 Weeks for 6 Occurrences starting 01/10/2022 until 01/10/2023 [employer] [facility] Comment on above: Every 8 Weeks for 6 Occurrences starting 01/10/2022 until 01/10/2023 End: 07-26-2023 Aspartate aminotransferase [Enzymatic activity/volume] in Serum or Plasma AST Lab Routine Psoriatic arthritis 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 Psoriatic spondylitis Macrocytic anemia Plaque psoriasis Psoriasis SAPHO syndrome History of kidney stones History of psoriatic arthritis 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-inflammatories (NSAID) Long-term current use of high risk medication other than anticoagulant Methotrexate, manager long term care, current use Abnormal renal function test [...] for 4 Occurrences starting 07/25/2022 until 07/26/2023 [employer] Comment on above: Every 12 Weeks for 4 Occurrences startin g 07/25/2022 until 07/26/2023 End: 01-24-2024 Aspartate aminotransferase [Enzymatic activity/volume] in Serum or Plasma AST Lab Routine Psoriatic arthritis 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 Psoriatic spondylitis Plaque psoriasis Psoriasis SAPHO syndrome History of kidney stones History of psoriatic arthritis Long-term current use of high risk medication other than anticoagulant Methotrexate, longterm, current use Vitamin D deficiency DDD (degenerative [...] for 4 Occurrences starting 01/23/2023 until 01/24/2024 [employer] [facility] Comment on above: Every 12 Weeks for [...] anemia Psoriasis Plaque psoriasis Hyperchromic anemia Methotrexate, manager long term care, current use Long-term current use of high risk medication other than anticoagulant History of psoriatic arthritis History of kidney stones Abnormal renal function test Vitamin D deficiency 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 Every 12 Weeks for 4 Occurrences starting 07/31/2023 until 07/30/2024 [facility] Comment on above: Every 12 Weeks for 4 Occurrences startin g 07/31/2023 until 07/30/2024 End: 09-08-2020 AST [Catalytic activity/Vol] AST Lab Routine Psoriatic arthritis 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 Psoriatic spondylitis Psoriasis SAPHO syndrome History of psoriatic arthritis FPC current use of non-steroidal anti-inflammatories (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, manager long term care, current use Long-term current use of [...] psoriasis 6 Occurrences starting 10/11/2019 until 09/08/2020 [employer] Comment on above: 6 Occurrences starting 10/11/2019 until 09/08/2020 End: 01-12-2021 AST [Catalytic activity/Vol] AST Lab Routine Psoriatic arthritis Psoriasis Plaque psoriasis Methotrexate, longterm, current use Long-term current use of high risk medication other than anticoagulant FPC current use of non-steroidal anti-inflammatories (NSAID) History [...] Occurrences starting 01/13/2020 until 01/12/2021, 1 completed [facility] Comment on above: 6 Occurrences starting 01/13/2020 until 01/12/2021, 1 completed End: 07-13-2021 AST [Catalytic activity/Vol] AST Lab Routine Psoriatic arthritis 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 Psoriatic spondylitis Psoriasis SAPHO syndrome History of psoriatic arthritis FPC current use of non-steroidal anti-inflammatories (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, longterm, current use Long-term current use of high [...] Occurrences starting 09/12/2020 until 07/13/2021, 1 completed [facility] Comment on above: 6 Occurrences starting 09/12/2020 until 07/13/2021, 1 completed End: 05-03-2019 AST enzyme act/vol AST Routine Psoriatic arthri tis 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 Psoriasis Anemia, unspecified type FPC current use of non-steroidal anti-inflammatories (NSAID) 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, manager long term care, current use Long-term current use of [...] psoriasis 6 Occurrences starting 05/30/2018 until 05/03/2019 [facility] Work Phone: Comment on above: 6 Occurrences starting 05/30/2018 until 05/03/2019 End: 09-04-2019 AST enzyme act/vol ASTLabRoutinePsoriatic arthritisPsoriatic arthropathy of distal interphalangeal (DIP) jointPsoriatic spondylitisHistory of psoriatic arthritisLong term current use of non-steroidal anti-inflammatories (NSAID)FPC current use of systemic steroidsLong-term current use of high risk medication other than anticoagulantMethotrexate, manager long term care, current useNoncompliancePatient non adherenceVitamin D deficiencyDDD [...] starting 11/03/2018 until (more content not included)... [employer] Comment on above: 6 Occurrences starting 11/03/2018 until 09/04/2019 End: 07-12-2022 C-reactive protein C REACTIVE PROTEIN Lab Routi ne Psoriatic arthritis Psoriatic spondylitis Psoriasis Plaque psoriasis Anemia, unspecified type Methotrexate, manager long term care, current use Long-term current use of high risk medication other than anticoagulant 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-inflammatories (NSAID) History [...] Occurrences starting 07/12/2021 until 07/12/2022, 1 completed [facility] Comment on above: Every 8 Weeks for 6 Occurrences starting 07/12/2021 until 07/12/2022, 1 completed End: 01-10-2023 C-reactive protein C REACTIVE PROTEIN Lab Routi ne Psoriatic arthritis Psoriatic arthropathy of distal interphalangeal (DIP) joint Psoriatic spondylitis Plaque psoriasis Psoriasis SAPHO syndrome History of psoriatic arthritis FPC current use of non-steroidal anti-inflammatories (NSAID) Long-term current use of high risk medication other than anticoagulant Methotrexate, manager long term care, current use Every 8 Weeks for 6 Occurrences starting 01/10/2022 until 01/10/2023 [facility] Comment on above: Every 8 Weeks for 6 Occurrences starting 01/10/2022 until 01/10/2023 End: 07-26-2023 C-reactive protein C REACTIVE PROTEIN Lab Routi ne Psoriatic arthritis 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 Psoriatic spondylitis Macrocytic anemia Plaque psoriasis Psoriasis SAPHO syndrome History of kidney stones History of psoriatic arthritis 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-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 (NSAID) Long-term current use of high risk medication other than anticoagulant Methotrexate, longterm, current use Abnormal renal function test Vitamin [...] for 4 Occurrences starting 07/25/2022 until 07/26/2023 [facility] Comment on above: Every 12 Weeks for 4 Occurrences startin g 07/25/2022 until 07/26/2023 End: 01-24-2024 C-reactive protein C REACTIVE PROTEIN Lab Routi ne Psoriatic arthritis 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 Psoriatic spondylitis Plaque psoriasis Psoriasis SAPHO syndrome History of kidney stones History of psoriatic arthritis Long-term current use of high risk medication other than anticoagulant Methotrexate, manager long term care, current use Vitamin D deficiency DDD [...] for 4 Occurrences starting 01/23/2023 until 01/24/2024 [facility] Comment on above: Every 12 Weeks for [...] anemia Psoriasis Plaque psoriasis Hyperchromic anemia Methotrexate, longterm, current use Long-term current use of high risk medication other than anticoagulant History of psoriatic arthritis History of kidney stones Abnormal renal function test Vitamin D deficiency 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 Every 12 Weeks for 4 Occurrences starting 07/31/2023 until 07/30/2024 [employer] [facility] Comment on above: Every 12 Weeks for 4 Occurrences startin g 07/31/2023 until 07/30/2024 End: 01-08-2020 CBC, EDIF, PLATELET CBC, EDIF, PLATELET Lab Rout ine Psoriatic arthritis Psoriatic spondylitis Psoriasis Plaque psoriasis Anemia, unspecified type Methotrexate, longterm, current use Long-term current use of high risk medication other than anticoagulant 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 FPC current use of non-steroidal anti-inflammatories (NSAID) History [...] cervical 6 Occurrences starting 01/04/2019 until 01/08/2020 [employer] Comment on above: 6 Occurrences starting 01/04/2019 until 01/08/2020 End: 05-03-2019 CBC,PLATELETS CBC,PLATELETS Routine Psoria tic arthritis 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 Psoriasis Anemia, unspecified type 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-inflammatories (NSAID) FPC current use of 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, longterm, current use Long-term current use of high [...] psoriasis 6 Occurrences starting 05/30/2018 until 05/03/2019 [facility] Work Phone: Comment on above: 6 Occurrences starting 05/30/2018 until 05/03/2019 End: 09-04-2019 CBC,PLATELETS CBC,PLATELETSLabRoutinePsori atic arthritisPsoriatic arthropathy of distal interphalangeal (DIP) jointPsoriatic spondylitisHistory of psoriatic arthritisLong term current use of non-steroidal anti-inflammatories (NSAID)FPC current use of systemic steroidsLong-term current use of high risk medication other than anticoagulantMethotrexate, longterm, current useNoncompliancePatient non adherenceVitamin D deficiencyDDD (degenerative [...] starting 11/03/2018 until (more content not included)... 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-inflammatories (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, longterm, current use Long-term current use of high [...] psoriasis 6 Occurrences starting 10/11/2019 until 09/08/2020 [employer] Comment on above: 6 Occurrences starting 10/11/2019 until 09/08/2020 End: 01-12-2021 Complete blood count with white cell differential, automated CBC, EDIF, PLATELET Lab Routine Psoriatic arthritis Psoriasis Plaque psoriasis Methotrexate, longterm, current use Long-term current use of high risk medication other than anticoagulant FPC current use of non-steroidal anti-inflammatories (NSAID) History [...] Occurrences starting 01/13/2020 until 01/12/2021, 1 completed [facility] Comment on above: 6 Occurrences starting 01/13/2020 until 01/12/2021, 1 completed End: 07-13-2021 Complete blood count with white cell differential, automated CBC, EDIF, PLATELET Lab Routine Psoriatic arthritis 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 Psoriatic spondylitis Psoriasis SAPHO syndrome History of psoriatic arthritis FPC current use of non-steroidal anti-inflammatories (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, manager long term care, current use Long-term current use of [...] Occurrences starting 09/12/2020 until 07/13/2021, 1 completed [facility] Comment on above: 6 Occurrences starting 09/12/2020 until 07/13/2021, 1 completed End: 07-12-2022 Complete blood count with white cell differential, automated CBC, EDIF, PLATELET Lab Routine Psoriatic arthritis Psoriatic spondylitis Psoriasis Plaque psoriasis Anemia, unspecified type Methotrexate, manager long term care, current use Long-term current use of high risk medication other than anticoagulant FPC current use of systemic steroids 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-inflammatories (NSAID) History [...] Occurrences starting 07/12/2021 until 07/12/2022, 1 completed [facility] Comment on above: Every 8 Weeks for 6 Occurrences starting 07/12/2021 until 07/12/2022, 1 completed End: 01-10-2023 Complete blood count with white cell differential, automated CBC, EDIF, PLATELET Lab Routine Psoriatic arthritis 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 Psoriatic spondylitis Plaque psoriasis Psoriasis SAPHO syndrome History of psoriatic arthritis 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-inflammatories (NSAID) Long-term current use of high risk medication other than anticoagulant Methotrexate, manager long term care, current use Every 8 Weeks for 6 Occurrences starting 01/10/2022 until 01/10/2023 [facility] Comment on above: Every 8 Weeks for 6 Occurrences starting 01/10/2022 until 01/10/2023 End: 07-26-2023 Complete blood count with white cell differential, automated CBC, EDIF, PLATELET Lab Routine Psoriatic arthritis 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 Psoriatic spondylitis Macrocytic anemia Plaque psoriasis Psoriasis SAPHO syndrome History of kidney stones History of psoriatic arthritis 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-inflammatories (NSAID) Long-term current use of high risk medication other than anticoagulant Methotrexate, manager long term care, current use Abnormal renal function test [...] for 4 Occurrences starting 07/25/2022 until 07/26/2023 [facility] Comment on above: Every 12 Weeks for [...] high risk medication other than anticoagulant Methotrexate, manager long term care, current use Vitamin D deficiency DDD [...] for 4 Occurrences starting 01/23/2023 until 01/24/2024 [facility] Comment on above: Every 12 Weeks for [...] anemia Psoriasis Plaque psoriasis Hyperchromic anemia Methotrexate, longterm, current use Long-term current use of high risk medication other than anticoagulant History of psoriatic arthritis History of kidney stones Abnormal renal function test Vitamin D deficiency 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 Every 12 Weeks for 4 Occurrences starting 07/31/2023 until 07/30/2024 [facility] Comment on above: Every 12 Weeks for 4 Occurrences startin g 07/31/2023 until 07/30/2024 End: 09-08-2020 Creatinine [Mass/Vol] CREATININE SERUM Lab Routine Psoriatic arthritis 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 Psoriatic spondylitis Psoriasis SAPHO syndrome History of psoriatic arthritis 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-inflammatories (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, manager long term care, current use Long-term current use of [...] psoriasis 6 Occurrences starting 10/11/2019 until 09/08/2020 [employer] Comment on above: 6 Occurrences starting 10/11/2019 until 09/08/2020 End: 01-12-2021 Creatinine [Mass/Vol] CREATININE SERUM Lab Routine Psoriatic arthritis Psoriasis Plaque psoriasis Methotrexate, manager long term care, current use Long-term current use of high risk medication other than anticoagulant 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-inflammatories (NSAID) History [...] Occurrences starting 01/13/2020 until 01/12/2021, 1 completed [facility] Comment on above: 6 Occurrences starting 01/13/2020 until 01/12/2021, 1 completed End: 01-08-2020 Creatinine [Mass/Vol] CREATININE SERUM Lab Routine Psoriatic arthritis Psoriatic spondylitis Psoriasis Plaque psoriasis Anemia, unspecified type Methotrexate, longterm, current use Long-term current use of high risk medication other than anticoagulant 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-inflammatories (NSAID) History [...] cervical 6 Occurrences starting 01/04/2019 until 01/08/2020 [employer] Comment on above: 6 Occurrences starting 01/04/2019 until 01/08/2020 End: 07-13-2021 Creatinine [Mass/Vol] CREATININE SERUM Lab Routine Psoriatic arthritis 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 Psoriatic spondylitis Psoriasis SAPHO syndrome History of psoriatic arthritis 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-inflammatories (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, longterm, current use Long-term current use of high [...] Occurrences starting 09/12/2020 until 07/13/2021, 1 completed [facility] Comment on above: 6 Occurrences starting 09/12/2020 until 07/13/2021, 1 completed End: 07-12-2022 Creatinine [Mass/volume] in Serum or Plasma CREATININE SERUM Lab Routine Psoriatic arthritis Psoriatic spondylitis Psoriasis Plaque psoriasis Anemia, unspecified type Methotrexate, manager long term care, current use Long-term current use of high risk medication other than anticoagulant 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-inflammatories (NSAID) History [...] Occurrences starting 07/12/2021 until 07/12/2022, 1 completed [facility] Comment on above: Every 8 Weeks for 6 Occurrences starting 07/12/2021 until 07/12/2022, 1 completed End: 01-10-2023 Creatinine [Mass/volume] in Serum or Plasma CREATININE SERUM Lab Routine Psoriatic arthritis 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 Psoriatic spondylitis Plaque psoriasis Psoriasis SAPHO syndrome History of psoriatic arthritis 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-inflammatories (NSAID) Long-term current use of high risk medication other than anticoagulant Methotrexate, manager long term care, current use Every 8 Weeks for 6 Occurrences starting 01/10/2022 until 01/10/2023 [facility] Comment on above: Every 8 Weeks for 6 Occurrences starting 01/10/2022 until 01/10/2023 End: 07-26-2023 Creatinine [Mass/volume] in Serum or Plasma CREATININE SERUM Lab Routine Psoriatic arthritis 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 Psoriatic spondylitis Macrocytic anemia Plaque psoriasis Psoriasis SAPHO syndrome History of kidney stones History of psoriatic arthritis 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-inflammatories (NSAID) Long-term current use of high risk medication other than anticoagulant Methotrexate, longterm, current use Abnormal renal function test Vitamin [...] for 4 Occurrences starting 07/25/2022 until 07/26/2023 [facility] Comment on above: Every 12 Weeks for 4 Occurrences startin g 07/25/2022 until 07/26/2023 End: 01-24-2024 Creatinine [Mass/volume] in Serum or Plasma CREATININE SERUM Lab Routine Psoriatic arthritis 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 Psoriatic spondylitis Plaque psoriasis Psoriasis SAPHO syndrome History of kidney stones History of psoriatic arthritis Long-term current use of high risk medication other than anticoagulant Methotrexate, longterm, current use Vitamin D deficiency DDD (degenerative [...] for 4 Occurrences starting 01/23/2023 until 01/24/2024 [facility] Comment on above: Every 12 Weeks for [...] anemia Psoriasis Plaque psoriasis Hyperchromic anemia Methotrexate, manager long term care, current use Long-term current use of high risk medication other than anticoagulant History of psoriatic arthritis History of kidney stones Abnormal renal function test Vitamin D deficiency 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 Every 12 Weeks for 4 Occurrences starting 07/31/2023 until 07/30/2024 [facility] Comment on above: Every 12 Weeks for 4 Occurrences startin g 07/31/2023 until 07/30/2024 End: 05-03-2019 Creatinine mass conc CREATININE SERUM Routine Psoriatic arthritis 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 Psoriasis Anemia, unspecified type 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-inflammatories (NSAID) FPC current use of 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, longterm, current use Long-term current use of high [...] psoriasis 6 Occurrences starting 05/30/2018 until 05/03/2019 [facility] Work Phone: Comment on above: 6 Occurrences starting 05/30/2018 until 05/03/2019 End: 09-04-2019 Creatinine mass conc CREATININE SERUMLabRoutinePsoriatic arthritisPsoriatic arthropathy of distal interphalangeal (DIP) jointPsoriatic spondylitisHistory of psoriatic arthritisLong term current use of non-steroidal anti-inflammatories (NSAID)FPC current use of systemic steroidsLong-term current use of high risk medication other than anticoagulantMethotrexate, manager long term care, current useNoncompliancePatient non adherenceVitamin D deficiencyDDD [...] starting 11/03/2018 un (more content not included)... 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 Psoriatic spondylitis Psoriasis SAPHO syndrome History of psoriatic arthritis FPC current use of non-steroidal anti-inflammatories (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, longterm, current use Long-term current use of high [...] psoriasis 6 Occurrences starting 10/11/2019 until 09/08/2020 [employer] Comment on above: 6 Occurrences starting 10/11/2019 until 09/08/2020 End: 01-12-2021 CRP [Mass/Vol] C REACTIVE PROTEIN Lab Routi ne Psoriatic arthritis Psoriasis Plaque psoriasis Methotrexate, longterm, current use Long-term current use of high risk medication other than anticoagulant FPC current use of non-steroidal anti-inflammatories (NSAID) History [...] Occurrences starting 01/13/2020 until 01/12/2021, 1 completed [facility] [facility] Comment on above: 6 Occurrences starting 01/13/2020 until 01/12/2021, 1 completed End: 01-08-2020 CRP [Mass/Vol] C REACTIVE PROTEIN Lab Routi ne Psoriatic arthritis Psoriatic spondylitis Psoriasis Plaque psoriasis Anemia, unspecified type Methotrexate, longterm, current use Long-term current use of high risk medication other than anticoagulant 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 FPC current use of non-steroidal anti-inflammatories (NSAID) History [...] cervical 6 Occurrences starting 01/04/2019 until 01/08/2020 [employer] Comment on above: 6 Occurrences starting 01/04/2019 until 01/08/2020 End: 07-13-2021 CRP [Mass/Vol] C REACTIVE PROTEIN Lab Routi ne Psoriatic arthritis 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 Psoriatic spondylitis Psoriasis SAPHO syndrome History of psoriatic arthritis FPC current use of non-steroidal anti-inflammatories (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, manager long term care, current use Long-term current use of [...] Occurrences starting 09/12/2020 until 07/13/2021, 1 completed [facility] Comment on above: 6 Occurrences starting 09/12/2020 until 07/13/2021, 1 completed End: 05-03-2019 CRP mass conc C REACTIVE PROTEIN Routine Psoriatic arthritis 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 Psoriasis Anemia, unspecified type 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-inflammatories (NSAID) FPC current use of 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, longterm, current use Long-term current use of high [...] psoriasis 6 Occurrences starting 05/30/2018 until 05/03/2019 [facility] Work Phone: Comment on above: 6 Occurrences starting 05/30/2018 until 05/03/2019 End: 09-04-2019 CRP mass conc C REACTIVE PROTEINLabRoutinePsoriatic arthritisPsoriatic arthropathy of distal interphalangeal (DIP) jointPsoriatic spondylitisHistory of psoriatic arthritisLong term current use of non-steroidal anti-inflammatories (NSAID)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Long-term current use of high risk medication other than anticoagulantMethotrexate, longterm, current useNoncompliancePatient non adherenceVitamin D deficiencyDDD (degenerative [...] [address] (more content not included)... 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 Psoriasis Anemia, unspecified type FPC current use of non-steroidal anti-inflammatories (NSAID) FPC current use of 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, manager long term care, current use Long-term current use of [...] psoriasis 6 Occurrences starting 05/30/2018 until 05/03/2019 [facility] Work Phone: Comment on above: 6 Occurrences starting 05/30/2018 until 05/03/2019 End: 09-04-2019 SEDIMENTATION RATE, AUTOMATED SEDIMENTATION RATE, AUTOMATEDLabRoutinePsoriatic arthritisPsoriatic arthropathy of distal interphalangeal (DIP) jointPsoriatic spondylitisHistory of psoriatic arthritisLong term current use of non-steroidal anti-inflammatories (NSAID)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Long-term current use of high risk medication other than anticoagulantMethotrexate, longterm, current useNoncompliancePatient non adherenceVitamin D deficiencyDDD (degenerative disc disease), cervicalImpingement syndrome of both shouldersLumbosacral spondylosis without myelopathyOsteoarthritis of cervical spine, unspecified spinal osteoarthritis complication statusOsteoarthritis of both acromioclavicular jointsOsteoarthritis of both glenohumeral jointsOsteoarthritis of both hands, unspecified osteoarthritis typeOsteoarthritis of both hips, unspecified osteoarthritis typeOsteoarthritis of both wrists, unspecified osteoarthritis typePrimary osteoarthritis of both kneesPlaque psoriasisPsoriasis6 Occurrences starting (more content not included)... 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-inflammatories (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, manager long term care, current use Long-term current use of [...] psoriasis 6 Occurrences starting 10/11/2019 until 09/08/2020 [employer] Comment on above: 6 Occurrences starting 10/11/2019 until 09/08/2020 End: 01-12-2021 SEDIMENTATION RATE, AUTOMATED SEDIMENTATION RATE, AUTOMATED Lab Routine Psoriatic arthritis Psoriasis Plaque psoriasis Methotrexate, manager long term care, current use Long-term current use of high risk medication other than anticoagulant 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-inflammatories (NSAID) History [...] Occurrences starting 01/13/2020 until 01/12/2021, 1 completed [facility] Comment on above: 6 Occurrences starting 01/13/2020 until 01/12/2021, 1 completed End: 01-08-2020 SEDIMENTATION RATE, AUTOMATED SEDIMENTATION RATE, AUTOMATED Lab Routine Psoriatic arthritis Psoriatic spondylitis Psoriasis Plaque psoriasis Anemia, unspecified type Methotrexate, longterm, current use Long-term current use of high risk medication other than anticoagulant FPC current use of systemic steroids FPC current use of non-steroidal anti-inflammatories (NSAID) History [...] cervical 6 Occurrences starting 01/04/2019 until 01/08/2020 [employer] Comment on above: 6 Occurrences starting 01/04/2019 until 01/08/2020 End: 07-13-2021 SEDIMENTATION RATE, AUTOMATED SEDIMENTATION RATE, AUTOMATED Lab Routine Psoriatic arthritis 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 Psoriatic spondylitis Psoriasis SAPHO syndrome History of psoriatic arthritis 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-inflammatories (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, manager long term care, current use Long-term current use of [...] Occurrences starting 09/12/2020 until 07/13/2021, 1 completed Check I'm Here Comment on above: 6 Occurrences starting 09/12/2020 until 07/13/2021, 1 completed End: 04-12-2023 SEDIMENTATION RATE, AUTOMATED SEDIMENTATION RATE, AUTOMATED Lab Routine Psoriatic arthritis Psoriatic spondylitis Psoriasis Plaque psoriasis Anemia, unspecified type Methotrexate, longterm, current use Long-term current use of high risk medication other than anticoagulant 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-inflammatories (NSAID) History [...] Occurrences starting 07/12/2021 until 07/12/2022, 1 completed Check [employer] Here Comment on above: Every 8 Weeks for 6 Occurrences starting 07/12/2021 until 07/12/2022, 1 completed End: 01-10-2023 SEDIMENTATION RATE, AUTOMATED SEDIMENTATION RATE, AUTOMATED Lab Routine Psoriatic arthritis 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 Psoriatic spondylitis Plaque psoriasis Psoriasis SAPHO syndrome History of psoriatic arthritis 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-inflammatories (NSAID) Long-term current use of high risk medication other than anticoagulant Methotrexate, manager long term care, current use Every 8 Weeks for 6 Occurrences starting 01/10/2022 until 01/10/2023 [employer] Comment on above: Every 8 Weeks for 6 Occurrences starting 01/10/2022 until 01/10/2023 End: 07-26-2023 SEDIMENTATION RATE, AUTOMATED SEDIMENTATION RATE, AUTOMATED Lab Routine Psoriatic arthritis 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 Psoriatic spondylitis Macrocytic anemia Plaque psoriasis Psoriasis SAPHO syndrome History of kidney stones History of psoriatic arthritis FPC current use of non-steroidal anti-inflammatories (NSAID) Long-term current use of high risk medication other than anticoagulant Methotrexate, manager long term care, current use Abnormal renal function test [...] for 4 Occurrences starting 07/25/2022 until 07/26/2023 [employer] Here Comment on above: Every 12 Weeks for 4 Occurrences startin g 07/25/2022 until 07/26/2023 End: 01-24-2024 SEDIMENTATION RATE, AUTOMATED SEDIMENTATION RATE, AUTOMATED Lab Routine Psoriatic arthritis 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 Psoriatic spondylitis Plaque psoriasis Psoriasis SAPHO syndrome History of kidney stones History of psoriatic arthritis Long-term current use of high risk medication other than anticoagulant Methotrexate, longterm, current use Vitamin D deficiency DDD (degenerative [...] for 4 Occurrences starting 01/23/2023 until 01/24/2024 [employer] Here Comment on above: Every 12 Weeks for [...] anemia Psoriasis Plaque psoriasis Hyperchromic anemia Methotrexate, longterm, current use Long-term current use of high risk medication other than anticoagulant History of psoriatic arthritis History of kidney stones Abnormal renal function test Vitamin D deficiency 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 Every 12 Weeks for 4 Occurrences starting 07/31/2023 until 07/30/2024 [employer] Here Comment on above: Every 12 Weeks for 4 Occurrences startin g 07/31/2023 until 07/30/2024 VITAMIN D, (1,25 DIHYDROXY) VITAMIN D, (1,25 DIHYDROXY) Lab Routine Psoriatic arthritis 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 Psoriasis SAPHO syndrome History of psoriatic arthritis 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-inflammatories (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, manager long term care, current use Long-term current use of [...] osteoarthritis type Plaque psoriasis 07/13/2020 9:08 AM [facility] Immunizations Immunization Date Immunization Notes Care Provider Ortega kent 09-07-2020 SARS-CoV-2 (COVID-19 ) mRNA BNT-162b2 vax Yakelin Jack [facility] 08-17-2020 SARS-CoV-2 (COVID-19 ) mRNA BNT-162b2 vax Yakelin Jack [facility] 11-15-2019 tetanus toxoid, reduced diphtheria toxoid, and acellular pertussis vaccine, adsorbed Yakelin Jack [facility] NEGATED: Highlighted row has not occurred!02-15-2023 influenza virus vaccine, unspecified formulation Rodrigo Brink [facility] Payers Date Payer Category Payer Unknown [employer] xxxxxxxxxxx 2018-Present [id number] 2018 Unknown [employer] [id number] 2018-Present [id number] [id number].3. [id number] 2018 Unknown [id number]. 1.13.172.2.7.3. 510717.315 1966 Unknown [id number] 2.16.840.1.375791.3.579.2.647 1966 Unknown [id number] 2.16.840.1.589187.3.579.2.983 1966 Unknown [id number] 2.16.840.1.231174.3.579.2.983 1966 Unknown [id number] 2.16.840.1.531678.3.579.2.593 1966 Unknown [id number] 2.16.840.1.546830.3.579.2.593 1966 Unknown [id number] 2.16.840.1.372173.3.579.2.593 1966 Unknown [id number] 2.16.840.1.314623.3.579.2.593 1966 Unknown [id number] 2.16.840.1.192874.3.579.2.593 1966 Unknown [id number] 2.16.840.1.347940.3.579.2.593 1966 Unknown [id number] 2.16.840.1.022066.3.579.2.593 1966 Unknown [id number] 2.16.840.1.863116.3.579.2.593 1966 Unknown [id number] 2.16.840.1.028079.3.579.2.593 1966 Unknown [id number] 2.16.840.1.017272.3.579.2.593 1966 Unknown [id number] 2.16.840.1.906795.3.579.2.593 1966 Unknown [id number] 2.16.840.1.456235.3.579.2.593 1966 Unknown [id number] 2.16.840.1.233751.3.579.2.593 1966 Unknown [id number] 2.16.840.1.643748.3.579.2.593 1966 Unknown [id number] 2.16.840.1.469708.3.579.2.593 1966 Unknown [id number] 2.16.840.1.401447.3.579.2.593 1966 Unknown [id number] 2.16.840.1.318507.3.579.2.593 1966 Unknown [id number] 2.16.840.1.222764.3.579.2.593 1966 Unknown [id number] 2.840.1.693766.3.579.2.593 1966 Unknown [id number] 2.16840.1.290494.3.579.2.593 1966 Unknown [id number] .16840.1.474105.3.579.2.593 1966 Unknown [id number] .16.840.1.570915.3.579.2.593 1966 Unknown [id number] .840.1.942867.3.579.2.983 1966 Unknown [id number] 2.16.840.1.598775.3.579.2.983 1966 Unknown [id number] 2.16.840.1.515190.3.579.2.983 1966 Unknown [id number] 2.16.840.1.636898.3.579.2.983 1966 Unknown [id number] 2.16840.1.290776.3.579.2.983 1966 Unknown [id number] 2.16.840.1.937847.3.579.2.983 1966 Unknown [id number] 2.16.840.1.340420.3.579.2.983 1966 Unknown [id number] 2.16.840.1.083690.3.579.2.727 1966 Unknown [id number] 2.16.840.1.461706.3.579.2.727 1966 Unknown [id number] 2.16.840.1.956171.3.579.2.727 1966 Unknown [id number] 2.16.840.1.475354.3.579.272 1966 Unknown [id number] 2.16.840.1.768238.3.579.2727 1966 Unknown [id number] 2.16.840.1.254563.3.579.2727 1966 Unknown [id number] 2.16.840.1.169873.3.579.2727 1966 Unknown [id number] 2.16.840.1.050440.3.579.27 1966 Unknown [id number] 2.16.840.1.047344.3.579.2727 1966 Unknown [id number] 2.16.840.1.715076.3.579.2727 1966 Unknown [id number] 2.16.840.1.122571.3.579.2727 1966 Unknown [id number] 2.16840.1.120951.3.579.2.727 1959 Unknown [id number] 1959 Unknown [id number] 2.16.840.1.734180.19 Social History Date Type Detail Facility Start: 03-29-2018 End: 10-01-2023 Tobacco smoking status IDIS Former smoker [facility] Work Phone: Start: 1965 Sex Assigned At Not on file O [facility] Work Phone: Start: 03-29-2018 End: 01-10-2022 Tobacco Comment Quit 10/2017 [employer] Start: 09-03-2018 End: 01-23-2023 Alcohol intake No [facility] Start: 05-06-2019 End: 07-31-2023 Alcohol intake Current [facility]-dr[facility] of [facility] (finding) [facility] Start: 09-09-2019 End: 01-10-2022 Tobacco use and exposure Never used [facility] [employer] Exposure to SARS-CoV -2 (event) Not sure [facility] History of tobacco use Current smoker [facility] Start: 07-25-2022 End: 01-23-2023 History of Social function [facility] Start: 12-31-2017 Gender identity Identifies as male gender (finding) [facility] Tobacco smoking status Never [facility] Functional Status Date Assessment Result Facility 10-01-2023 Functional Status N/A [facility] Clinical Notes 07-12-2021 to 10-01-2023 Tra Vale Jr., DO - 07/31/2023 9:00 AM EDTAddendum Note - Tra Vale Jr., DO - 07/31/2023 9:00 AM EDTAddendum Note - Tra Vale Jr., DO - 07/31/2023 9:00 AM EDT Note Date & Type Note Facility 10-01-2023 Hospital Discharg e instructions Patient Education 10/01/2023 14:18:46 Kidney Stones, [id number] Kidney Stones Kidney stones are rock-like masses [...] Follow these instructions at home: Medicines Take kmio-nle-qlnqwfb and prescription medicines only as told by [...] provider. Document Revised: 11/21/2021 Document Reviewed: 11/21/2021 [employer] Patient Education 2022 [employer]. Follow Up Care 2023 13:55:17 With:BABATUNDE MASON, Yusuf Cortés, URL Address: [facility] [address] , [place] [address]- [phone] When: Unknown [facility] Note Urology Office/Clini c Note Chief [...] -Start Tamsulosin 0.4mg bid. Rx sent to [facility] Emy. -Schedule CT AP wo con. Will call pt with results. -Consider metabolic workup in future 2. Screening PSA (prostate specific antigen) (Z12.5: Encounter for screening for malignant neoplasm of prostate) Last PSA 02/15/21 - 0.92. Unable to find more recent level on record. -Obtain repeat PSA level soon Follow-up With When Contact Information BABATUNDE MASON, Yusuf Cortés, URL [facility] [address], [place] [phone] Additional Instructions: pt to be called with CT results Patient Education Kidney Stones, Chhr-ks-Rdxp Becca Siddiqi, personally scribed for Dr. Pollard on 10/01/2023 14:19:31. . Documentation recorded by the carineibBecca sharma, accurately reflects the services(s) I performed and decisions made by me. Authenticated by Dr. Pollard on 10/01/2023 14:21:17. Problem List/Past Medical History Ongoing Allergic rhinitis Anemia Anxiety Atherosclerotic heart disease of [place] coronary artery with angina pectoris Contusion COVID-19 [...] mg Cap, See Instructions ipratropium Nasal 0.03% [place], See In (more content not included)... [facility] Comment on above: Result Comment: Elec [...] these instructions at home: Medicines ? Take nwun-fhk-osuraxk and prescription medicines only as told by [...] provider. Document Revised: 11/21/2021 Document Reviewed: 11/21/2021 [employer] Patient Education ? 2022 [employer]. [facility] 08-01-2023 Note PROCEDURE: 48-hour H olter monitor [...] BY: Anton Acevedo M.D. ca Dictated: 07/31/2023 [id number] Transcribed: 07/31/2023 cc:Rodrigo Brink M.D. [facility] Comment on above: Result Comment: Elec tronically Signed By: Kristina MASON, Anton Enriquez\.br\Date and Time Signed: 08/01/23 10:55 EDT 07-31-2023 History of Presen t illness Narrative Subjective History of Present Illness Patient states he seen a platform stapler Dr. Fawad Driver but they did not [...] is intact. Motor: Weakness present. 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 Oriented to person, place, and time. Cranial Nerves CN III, IV, : Extraocular movements intact bilaterally. Extraocular movements intact bilaterally. Pupils equal round and reactive to light bilaterally. Sensory Normal sensation. Decreased sales operations specialist strength both hands. Assessment and Plan Encounter [...] anemia Psoriasis Plaque psoriasis Hyperchromic anemia Methotrexate, longterm, current use Long-term current use of high [...] 12.7 and still is at 13.0 4. 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 Solano in [place]. 13. TB test was negative 14. Negative [...] supply on medications. 30. Urology Follow-up per [place] 31. Follow-up with ar in 6 months documented in this encounter [facility] 07-31-2023 Miscellaneous Notes Addended by: TRA VALE on: 07/31/2023 09:22 AM Modules accepted: Orders documented in this encounter [facility] 07-31-2023 Note Addended by: TRA VILLALPANDO on: 07/31/2023 09:22 AM Modules accepted: Orders [facility] 01-23-2023 History of Presen t illness Narrative Subjective History of Present Illness Patient states he seen a platform stapler Dr. Fawad Driver but they did not [...] is intact. Motor: Weakness present. 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 Oriented to person, place, and time. Cranial Nerves CN III, IV, : Extraocular movements intact bilaterally. Extraocular movements intact bilaterally. Pupils equal round and reactive to light bilaterally. Sensory Normal sensation. Decreased sales operations specialist strength both hands. Assessment and Plan Encounter Diagnoses Name Primary? 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 Hgb was low at 12.7 4. 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 Allergy to Humira - makes the psoriasis worse 6. Allergy to Cosentyx - makes the psoriasis worse 7. Call if need Rx's 8 Enbrel did not help 9. Remicade did not help 10. Methotrexae did not help 11. Otezla did not help 12. Chronic Pain Management F/U per Dr. Solano in [place]. 13. TB test was negative 14. Negative [...] Tatz per dermatology documented in this encounter [facility] 07-25-2022 History of Presen t illness Narrative History of Present Illness Patient states he seen a platform stapler Dr. Fawad Driver but they did not [...] is intact. Motor: Weakness present. Comments: Decreased sales operations specialist strength both hands Psychiatric: Mood and Affect: Mood normal. Behavior: Behavior normal. Thought Content: Thought content normal. Judgment: Judgment normal. Neurological Exam Mental Status Alert. Oriented to person, place, and time. Cranial Nerves CN III, IV, : Extraocular movements intact bilaterally. Extraocular movements intact bilaterally. Pupils equal round and reactive to light bilaterally. Sensory Normal sensation. Decreased sales operations specialist strength both hands. Assessment and Plan Encounter Diagnoses Name Primary? 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 Hgb is low at 12.7 4. 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 Solano in [place]. 13. TB test was negative 14. Negative [...] copy to PCP documented in this encounter [facility] 06-17-2022 Evaluation note Encounter Date Diagnosis [...] your family doctor for recheck this week. [facility] Other 03-14-2023 NoteCONSULTATION CONSULTATION DATE: 06/13/2022 FOLLOW [...] asked him to decrease the use of Meridian to 45 pills to last him one month's time. He just recently had a prescription filled for Meridian 60 pills. I have asked him to make this last for six weeks. We will have him return to the office in six weeks' time or sooner if needed.[facility] [id number] NoteCONSULTATION CONSULTATION DATE: 02/16/2022 HISTORY OF PRESENT ILLNESS: This is a pleasant, 56-year-old gentleman returning to the clinic for a three month follow up for chronic neck and lower back pain. The patient had radiofrequency ablations to his cervical area in August of 2021. Patient has had pain improvement since then, but does have residual tightness. Medications currently include diclofenac 75 mg b.i.d., Meridian 5/325 b.i.d., gabapentin 300 mg b.i.d. and [...] or injuries. 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 Fawad Driver but they did not [...] his 6 Month F/U. 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 Patient [...] is intact. Motor: Weakness present. Comments: Decreased sales operations specialist strength both hands Psychiatric: Mood and Affect: Mood normal. Behavior: Behavior normal. Thought Content: Thought content normal. Judgment: Judgment normal. Neurological Exam Mental Status Alert. Oriented to person, place, and time. Cranial Nerves CN III, IV, : Extraocular movements intact bilaterally. Extraocular movements intact bilaterally.Pupils equal round and reactive to light bilaterally. Sensory Normal sensation. Decreased sales operations specialist strength both hands. Assessment and Plan Encounter Diagnoses Name Primary? 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 Time was spent with [...] Pain Management F/U per Dr. Solano in [place]. 13. TB test was negative 14. Negative [...] me in 6 months [facility] NoteCONSULTATION PROCEDURE DATE: 11/24/2021 PROCEDURE NOTE [...] will be followed up in the office.[facility] [id number] NoteCONSULTATION CONSULTATION DATE: 10/27/2021 HISTORY OF PRESENT [...] a menthol heat rub. Current medications include Meridian 5/325 b.i.d., diclofenac 75 mg b.i.d., gabapentin [...] Patient agrees with this plan of care.[facility] [id number] History of Present illness Narrative* Tra Vasquez Ela Vidales, DO - 07/12/2021 8:30 AM EDT History of Present Illness Patient states he seen a platform stapler Dr. Fawad Driver but they did not [...] is intact. Motor: Weakness present. Comments: Decreased sales operations specialist strength both hands Psychiatric: Mood and Affect: Mood normal. Behavior: Behavior normal. Thought Content: Thought content normal. Judgment: Judgment normal. Neurological Exam Mental Status Alert. Oriented to person, place, and time. Cranial Nerves CN III, IV, : Extraocular movements intact bilaterally. Extraocular movements intact bilaterally.Pupils equal round and reactive to light bilaterally. Sensory Normal sensation. Decreased sales operations specialist strength both hands. Assessment and Plan Encounter Diagnoses Name Primary? Psoriatic arthritis Psoriatic spondylitis Psoriasis Plaque psoriasis Anemia, unspecified type Methotrexate, manager long term care, current use Long-term current use of high risk medication other than anticoagulant FPC current use of systemic steroids FPC current use of non-steroidal anti-inflammatories (NSAID) History [...] Pain Management F/U per Dr. Solano in [place]. 13. TB test was negative 14. Negative [...] me in 6 months [facility] note Future Appointments Appointment Date:11/15/2022 04:40:00 PM Scheduled Provider:Rodrigo Brink MD Location:[facility] Future Appointments Appointment Date:02/15/2023 11:20:00 AM Scheduled Provider:Rodrigo Brink MD Location:[facility] Appointment Type: Open Diagnostic Tests Pending * Comprehensive Metabolic Panel 11/15/22 * Vitamin B12 Level 11/15/22 * Folate [facility]22 [facility] Future Appointments Appointment Date:08/16/2023 01:15:00 PM Scheduled Provider:Rodrigo Brink MD Location:[facility] Appointment Type:FM Open Appointment Date:10/01/2023 01:00:00 PM Scheduled Provider:Yusuf POLLARD MD Location:[facility] Appointment Type:URO New Patient Future Scheduled Tests Radiology* Echo Transthoracic Complete [facility]17/23 [facility] Future Appointments Appointment Date:03/20/2024 10:00:00 AM Scheduled Provider:Rodrigo Brink MD Location:[facility] Appointment Type: Open Diagnostic Tests Pending * PSA Screen, Total 10/01/23 Future Scheduled Tests Radiology* Echo Transthoracic Complete 05/17/23 [facility] evaluation note* Diagnosis 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 Psoriatic arthritis Psoriatic arthropathy Psoriatic spondylitis Psoriatic arthropathy Psoriasis Other psoriasis Plaque psoriasis Other psoriasis Anemia, unspecified type Methotrexate, manager long term care, current use Encounter for long-term (current) use of other medications Long-term current use of high risk medication other than anticoagulant 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 Encounter for long-term (current) use of steroids 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-inflammatories (NSAID) Encounter [...] cervical intervertebral disc [facility] Diagnosis Psoriatic arthritis- Primary Psoriatic arthropathy 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 Psoriatic spondylitis Psoriatic arthropathy Plaque psoriasis Other psoriasis Psoriasis Other psoriasis SAPHO syndrome Traumatic spondylopathy History of psoriatic arthritis Personal history of arthritis 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-inflammatories (NSAID) Encounter for long-term (current) use of non-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-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 Long-term current use of high risk medication other than anticoagulant Methotrexate, longterm, current use Encounter for long-term (current) use of other medications Vitamin D deficiency Unspecified vitamin D deficiency documented in this encounter [facility]* Diagnosis Psoriatic arthritis- Primary Psoriatic arthropathy 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 Psoriatic spondylitis Psoriatic arthropathy Macrocytic anemia Unspecified deficiency anemia Plaque psoriasis Other psoriasis Psoriasis Other psoriasis SAPHO syndrome Traumatic spondylopathy History of kidney stones Personal history of urinary calculi History of psoriatic arthritis Personal history of arthritis FPC current use of non-steroidal anti-inflammatories (NSAID) Encounter for long-term (current) use of non-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-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 Long-term current use of high risk medication other than anticoagulant Methotrexate, manager long term care, current use Encounter for long-term (current) [...] osteoarthrosis, [facility] Diagnosis Psoriatic arthritis- Primary Psoriatic arthropathy 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 spondylitis Psoriatic arthropathy Plaque psoriasis Other psoriasis Psoriasis Other psoriasis SAPHO syndrome Traumatic spondylopathy History of kidney stones Personal history of urinary calculi History of psoriatic arthritis Personal history of arthritis Long-term current use of high risk medication other than anticoagulant Methotrexate, longterm, current use Encounter for long-term (current) use [...] osteoarthrosis, lower leg [facility] Diagnosis Psoriatic arthritis- Primary Psoriatic arthropathy [...] Other psoriasis Hyperchromic anemia Anemia, unspecified Methotrexate, longterm, current use Encounter for long-term (current) use [...] interphalangeal (DIP) joint [facility] N[facility] - Reported* Type Description Date Medical History psoriasis [facility] [employer] Other Hospital course Narrative No data available for this [facility] No data available for this section [facility] No data available for this section [facility] Reason for Referral Status Reason Specialty Diagnoses / Procedures Re ferred By Contact Referred To Contact New Request Multispecialty Diagnoses Psoriatic arthritis 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 Psoriasis Fatigue, unspecified type History of psoriatic arthritis 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-inflammatories (NSAID) FPC current use of 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, longterm, current use Long-term current use of high risk medication other than anticoagulant Lumbosacral spondylosis without myelopathy Disorder of bone and cartilage Plaque psoriasis Cervicalgia Dorsalgia Chronic pain of both shoulders Bilateral elbow joint pain Bilateral wrist pain Bilateral hand pain Chronic pain of both knees Tra Vale Jr., DO [address] [place], [place] [id number] Status Reason Specialty Diagnoses / Procedures Referred By Contact Referred To Contact Pending Review Diagnoses Vitamin D deficiency Tra Vale Jr., DO [address] [id number] Status Reason Specialty Diagnoses / Procedures Re ferred By Contact Referred To Contact New Request Sports Ortho and Primary Care Sports Diagnoses Psoriatic arthritis 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 Psoriasis Anemia, unspecified type FPC current use of non-steroidal anti-inflammatories (NSAID) FPC current use of 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, longterm, current use Long-term current use of high [...] Plaque psoriasis Tra Vale Jr., DO [address] [id number] Status Reason Specialty Diagnoses / Procedures Re ferred By Contact Referred To Contact New Request Occupational Therapy Diagnoses Psoriatic arthritis 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 Psoriasis Anemia, unspecified type FPC current use of non-steroidal anti-inflammatories (NSAID) 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, manager long term care, current use Long-term current use of [...] Plaque psoriasis Tra Vale Jr., DO [address] [place] [address] Status Reason Specialty Diagnoses / Procedures Re ferred By Contact Referred To Contact Closed Diagnoses Psoriatic arthritis Psoriatic spondylitis Psoriasis Plaque psoriasis Anemia, unspecified type Methotrexate, longterm, current use Long-term current use of high risk medication other than anticoagulant FPC current use of systemic steroids FPC current use of non-steroidal anti-inflammatories (NSAID) History [...] disease), cervical Tra Vale Jr., DO [address] [place] [address] History of Present Illness * Tra Vale [...] Patient states he recently moved to [place] from [place]. Patient was seeing a C[employer] Machine and Woodworking Craftsman there for his psorasis and PsA. Patient states he seen a platform stapler Dr. Fawad Driver but they did not [...] negative Romberg sign. Gait abnormal. Cane. Decreased sales operations specialist strength B/L Skin: Skin is warm and [...] Fatigue, unspecified type History of psoriatic arthritis FPC current use of non-steroidal anti-inflammatories (NSAID) FPC current use of 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, manager long term care, current use Long-term current use of [...] Present Illness Patient states he seen a platform stapler Dr. Fawad Driver but they did not [...] negative Romberg sign. Gait abnormal. Cane. 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 Fawad Driver but they did not [...] Pain Management F/U per Dr. Solano in [place]. 15. Disability forms filled out for patient [...] Present Illness Patient states he seen a platform stapler Dr. Fawad Driver but they did not [...] present. Gait: Gait abnormal. Comments: Cane. Decreased sales operations specialist strength both hands Psychiatric: Mood and Affect: [...] Anemia, unspecified type History of psoriatic arthritis 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-inflammatories (NSAID) 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 Long-term current use of high risk medication other than anticoagulant Methotrexate, manager long term care, current use Vitamin D deficiency DDD [...] Pain Management F/U per Dr. Solano in [place]. 15. TB test was negative 16. Negative [...] Present Illness Patient states he seen a platform stapler Dr. Fawad Driver but they did not [...] present. Gait: Gait abnormal. Comments: Cane. Decreased sales operations specialist strength both hands Psychiatric: Mood and Affect: [...] Psoriasis SAPHO syndrome History of psoriatic arthritis 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-inflammatories (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, manager long term care, current use Long-term current use of [...] Pain Management F/U per Dr. Solano in [place]. 15. TB test was negative 16. Negative [...] Present Illness Patient states he seen a platform stapler Dr. Fawad Driver but they did not [...] last appointment. 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 Motor: Weakness present. Comments: Decreased sales operations specialist strength both hands Psychiatric: Mood and Affect: Mood normal. Behavior: Behavior normal. Thought Content: Thought content normal. Judgment: Judgment normal. Neurologic Exam Mental Status Oriented to person, place, and time. Cranial Nerves CN III, IV, Pupils are equal, round, and reactive to light. Extraocular motions are normal. Assessment and Plan Encounter Diagnoses Name Primary? Psoriatic arthritis Yes Psoriasis Plaque psoriasis Methotrexate, longterm, current use Long-term current use of high risk medication other than anticoagulant FPC current use of non-steroidal anti-inflammatories (NSAID) History [...] about 02/11/2020 with copy to PCP 4. 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 Solano in [place]. 15. TB test was negative 16. Negative [...] Present Illness Patient states he seen a platform stapler Dr. Fawad Driver but they did not [...] Psoriasis Plaque psoriasis Anemia, unspecified type Methotrexate, longterm, current use Long-term current use of high risk medication other than anticoagulant FPC current use of systemic steroids FPC current use of non-steroidal anti-inflammatories (NSAID) History [...] Pain Management F/U per Dr. Solano in [place]. 15. F/U with me in 4 months [...] Present Illness Patient states he seen a platform stapler Dr. Fawad Driver but they did not [...] him. Patient states he has seen a platform stapler Shai and she recommends Taltz instead of [...] is intact. Motor: Weakness present. Comments: Decreased sales operations specialist strength both hands Psychiatric: Mood and Affect: [...] Psoriasis SAPHO syndrome History of psoriatic arthritis 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-inflammatories (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, longterm, current use Long-term current use of high [...] patient. 3. Call if need Rx's 4. 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 Solano in [place]. 15. TB test was negative 16. Negative [...] psoriatic arthrit is Personal history of arthritis 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 -steroidal anti-inflammatories (NSAID) Encounter for long-term (current) use of non-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-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 sys temic steroids Encounter for long-term (current) use of steroids Methotrexate, longterm, cur rent use Encounter for long-term (current) [...] spondylopathy Psoriasis Other psoriasis Anemia, unspecified type 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-inflammatories (NSAID) Encounter for long-term (current) use of non-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-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 FPC current use of systemic steroids Encounter for long-term (current) use of steroids Methotrexate, longterm, current use Encounter for long-term (current) use [...] spondylopathy Psoriasis Other psoriasis Anemia, unspecified type 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-inflammatories (NSAID) Encounter for long-term (current) use of non-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-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 Encounter for long-term (current) use of steroids Methotrexate, manager long term care, current use Encounter for long-term (current) [...] spondylopathy Psoriasis Other psoriasis Anemia, unspecified type FPC current use of non-steroidal anti-inflammatories (NSAID) Encounter for long-term (current) use of non-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-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 FPC current use of systemic steroids Encounter for long-term (current) use of steroids Methotrexate, manager long term care, current use Encounter for long-term (current) [...] of psoriatic arthritis Personal history of arthritis FPC current use of non-steroidal anti-inflammatories (NSAID) Encounter for long-term (current) use of non-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-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 FPC current use of systemic steroids Encounter for long-term (current) use of steroids Long-term current use of high risk medication other than anticoagulant Methotrexate, manager long term care, current use Encounter for long-term (current) [...] of psoriatic arthritis Personal history of arthritis 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-inflammatories (NSAID) Encounter for long-term (current) use of non-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-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 FPC current use of systemic steroids Encounter for long-term (current) use of steroids Long-term current use of high risk medication other than anticoagulant Methotrexate, manager long term care, current use Encounter for long-term (current) [...] of psoriatic arthritis Personal history of arthritis 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-inflammatories (NSAID) Encounter for long-term (current) use of non-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-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 Methotrexate, longterm, current use Encounter for long-term (current) use [...] Other psoriasis Plaque psoriasis Other psoriasis Methotrexate, longterm, current use Encounter for long-term (current) use of other medications Long-term current use of high risk medication other than anticoagulant 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-inflammatories (NSAID) Encounter [...] psoriasis Other psoriasis Anemia, unspecified type Methotrexate, manager long term care, current use Encounter for long-term (current) use of other medications Long-term current use of high risk medication other than anticoagulant FPC current use of systemic steroids Encounter for long-term (current) use of steroids FPC current use of non-steroidal anti-inflammatories (NSAID) Encounter [...] psoriasis Other psoriasis Anemia, unspecified type Methotrexate, longterm, current use Encounter for long-term (current) use of other medications Long-term current use of high risk medication other than anticoagulant FPC current use of systemic steroids Encounter for long-term (current) use of steroids 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-inflammatories (NSAID) Encounter [...] of psoriatic arthritis Personal history of arthritis 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-inflammatories (NSAID) Encounter for long-term (current) use of non-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-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 Methotrexate, longterm, current use Encounter for long-term (current) use [...] Patient states he recently moved to [place] from [place]. Patient was seeing a Coremaker Machine and Woodworking Craftsman there for his psorasis and PsA. Patient states he seen a platform stapler Dr. Fawad Driver but they did not [...] last appointment. 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 Patient states he has seen a platform stapler Bear antoine and she recommends Taltz instead [...] his 6 Month F/U. 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 Patient [...] section and content) DATE CREATED AUTHOR 07/29/2020 [facility] DATE CREATED AUTHOR AUTHOR'S ORGANIZ ATION 03/21/2021 [facility] dical Specialist DATE CREATED AUTHOR AUTHOR'S ORGANIZ ATION 01/11/2022 [facility] DATE CREATED AUTHOR AUTHOR'S ORGANIZ ATION 08/12/2022 [facility] DATE CREATED AUTHOR AUTHOR'S ORGANIZ ATION 11/21/2022 [facility] DATE CREATED AUTHOR AUTHOR'S ORGANIZ ATION 08/01/2023 [facility] DATE CREATED AUTHOR AUTHOR'S ORGANIZ ATION 01/09/2024 [facility] Care Teams (unrecognized sec tion and content) Fur Polisher Relationship Specialty Start Date End Date Rodrigo Luz MD [address], [place] [address] PCP - General Family Medicine 12/31/17 Fur Polisher Relationship Specialty Start Date End Date Rodrigo Luz MD [address], [place] [phone] PCP - General Family Medicine 12/31/17 Fur Polisher Relationship Specialty Start Date End Date Rodrigo Luz MD [address], [place] [phone] PCP - General Family Medicine 12/31/17 Fur Polisher Relationship Specialty Start Date End Date Rodrigo Luz MD [address], [place] [id number] PCP - General Family Medicine 12/31/17 Fur Polisher Relationship Specialty Start Date End Date Rodrigo Brink MD [address] [place] [address] PCP - General Family Medicine 07/31/23 FOR [...] BE BASED ON THE PRIMARY CLINICAL RECORDS. [employer] provides no warranty or guarantee of the accuracy or completeness of information in this document.
[2024-01-14] MEDS: 0.9 % SODIUM CHLORIDE 1,000 ML 75 ML IV (12:22)
[2024-01-14] MEDS: FOLIC ACID 1 MG TABLET PO (12:26)
[2024-01-14] MEDS: CALCIUM CARBONATE 600 MG/VITAMIN D3 400 IU TABLET 1 TAB PO ×2 (12:26→20:11)
[2024-01-14] MEDS: CETIRIZINE HCL 10 MG TABLET PO (12:26)
[2024-01-14] MEDS: MULTIVITAMIN TABLET 1 TAB PO (12:26)
[2024-01-14] MEDS: CEFTRIAXONE 1,000 MG in 0.9 % SODIUM CHLORIDE 50 ML 100 MG IV (12:38)
[2024-01-14] MEDS: CLINDAMYCIN PHOSPHATE/D5W 600 MG/50 ML PREMIX 100 MG IV ×2 (13:22→20:00)
[2024-01-14] MEDS: GABAPENTIN 300 MG CAPSULE PO ×2 (13:23→21:39)
[2024-01-14] MEDS: AMLODIPINE BESYLATE 5 MG TABLET PO (14:30)
[2024-01-14] MEDS: ENOXAPARIN SODIUM 40 MG/0.4 ML SYRINGE SUBQ (16:47)
[2024-01-14] MEDS: TIZANIDINE HCL 4 MG TABLET PO (19:59)
[2024-01-14] MEDS: TRIAMCINOLONE ACETONIDE 0.1% CREAM 15 GM TUBE 1 APPLIC TOPICAL (20:09)
[2024-01-14] MEDS: AMITRIPTYLINE HCL 25 MG TABLET PO (21:39)
[2024-01-15] VITALS (9 sets, daily range): BP systolic 101–135; BP diastolic 66–84; PULSE 75–95; TEMP 36.4–36.6; O2SAT 94–98
[2024-01-15] MEDS: 0.9 % SODIUM CHLORIDE 1,000 ML 75 ML IV (02:36)
[2024-01-15] MEDS: CLINDAMYCIN PHOSPHATE/D5W 600 MG/50 ML PREMIX 100 MG IV ×4 (02:37→21:07)
[2024-01-15] MEDS: ACETAMINOPHEN 500 MG TABLET 1000 MG PO ×3 (05:10→18:33)
[2024-01-15] MEDS: GABAPENTIN 300 MG CAPSULE PO ×3 (05:10→21:06)
[2024-01-15 06:10] LABS: Basophils Percent Auto 0.4 % (0.2-2.0); Eosinophils Percent Auto 0.9 % (0.9-7.0); Hematocrit 33.8 % (42.0-54.0); Immature Granulocytes Abs Auto 0.01 10^3/uL (0.00-0.03); Immature Granulocytes Pct Auto 0.2 % (0.0-0.5); Lymphocytes Absolute Auto 1.3 10^3/uL (1.2-3.8); Lymphocytes Percent Auto 28.3 % (20.5-60.0); Mean Corpuscular HGB Conc 32.5 g/dL (29.9-35.2); Mean Corpuscular Hemoglobin 34.3 pg (25.9-34.0); Mean Corpuscular Volume 105.3 fL (80.0-94.0); Mean Platelet Volume 9.6 fL (9.5-13.5); Monocytes Absolute Auto 0.8 10^3/uL (0.3-0.8); Monocytes Percent Auto 16.4 % (1.7-12.0); Neutrophils Absolute Auto 2.5 10^3/uL (1.4-6.5); Neutrophils Percent Auto 53.8 % (43.0-75.0); Platelet Count 224 10^3/uL (150-450); Red Blood Count 3.21 10^6/uL (4.70-6.10); Red Cell Distribution Width 13.8 % (11.0-15.0); White Blood Count 4.6 10^3/uL (4.0-11.0)
--- NOTE | 2024-01-15 06:16 | P.PN_ITS ---
Progress Note: Subjective Subjective Interval history: poain persisting Exam Constitutional Vital Signs, click to edit/add: Last Vital Signs Temp 98 F 01/15/24 04:41 Pulse 78 01/15/24 04:41 Resp 18 01/15/24 04:41 BP 117/76 01/15/24 04:41 Pulse Ox 94 L 01/15/24 04:41 O2 Del Method Room Air 01/15/24 04:41 Documenting provider has reviewed patient's vital signs: yes Common normals: no apparent distress Chest Common normals: inspection of chest normal Respiratory Common normals: normal respiratory effort, no retractions, no use of accessory muscles and clear to auscultation bilaterally Cardio Common normals: regular rate, regular rhythm and no murmurs GI Common normals: Normal to inspection, nondistended, normoactive bowel sounds present Extremity Common normals: abnormal to inspection (Left lower extremity consistent with cellulitis outside line ) Progress Note: Objective Labs Labs: Short CBC 01/14/24 01/15/24 Range/Units 08:14 05:45 WBC 8.0 4.6 (4.0-11.0) 10^3/uL Hgb 12.7 L 11.0 L (14.0-18.0) g/dL Hct 38.8 L 33.8 L (42.0-54.0) % Plt Count 258 224 (150-450) 10^3/uL BMP 01/14/24 08:14 Sodium 138 Potassium 3.9 Chloride 101 Carbon Dioxide 21.3 BUN 44.0 H Creatinine 2.47 H Glucose 91 Calcium 8.8 Progress Note: A&P Assessment and Plan (1) HIRAL (acute kidney injury): (2) Sepsis: (3) Cellulitis: (4) Fibromyalgia: (5) Psoriatic arthritis: (6) Hypertension: Plan Admission findings: Sinus tachycardia, elevated inflammatory markers of CRP and ESR, mild acute kidney injury, cellulitis secondary to immune compromised status with being on methotrexate for rheumatoid arthritis. Immune compromise left lower extremity cellulitis-IV antibiotics. outside [facility] area but pain sl better - maintain current treatment Rheumatoid arthritis-immune compromised status with methotrexate-maintain current dosing except the methotrexate Acute kidney injury with initial baseline creatinine of 1.31 admission creatinine of 2.47 -represent increase of 188.6% above baseline - gentle hydration. Fibromyalgia-maintain current medications except NSAIDs due to her creatinine as outlined above Admission status: Patient with significant immunodeficiency secondary to being on methotrexate for extended period of time, severe cellulitis with rapid progression of to starting over night but is severe this morning. High risk for developing sepsis. Continue patient on IV antibiotics, blood cultures pending, inpatient status secondary to medically necessary treatment spanning 2 midnights due to immune deficiency
[2024-01-15 06:19] LABS: Erythrocyte Sedimentation Rate 71 mm/hr (<=20)
[2024-01-15 06:25] LABS: Anion Gap 16.8; BUN Creatinine Ratio 15.5; Calcium 8.2 mg/dL (8.5-10.1); Chloride 108 mmol/L (98-107); Estimated GFR (African America 56 (>=60 mL/min/1.73m^2); Estimated GFR (Non-African Ame 46 (>=60 mL/min/1.73m^2); Glucose 87 mg/dL (74-106); Potassium 3.8 mmol/L (3.5-5.1); Sodium 143 mmol/L (136-145)
[2024-01-15] MEDS: FOLIC ACID 1 MG TABLET PO (08:05)
[2024-01-15] MEDS: CALCIUM CARBONATE 600 MG/VITAMIN D3 400 IU TABLET 1 TAB PO ×2 (08:05→21:06)
[2024-01-15] MEDS: FLU VAC QS 2024(6MS UP)CEL/PF 60 MCG/0.5 ML SYRINGE IM (08:05)
[2024-01-15] MEDS: TIZANIDINE HCL 4 MG TABLET PO ×2 (08:05→21:06)
[2024-01-15] MEDS: MULTIVITAMIN TABLET 1 TAB PO (08:05)
[2024-01-15] MEDS: CETIRIZINE HCL 10 MG TABLET PO (08:05)
[2024-01-15] MEDS: AMLODIPINE BESYLATE 5 MG TABLET PO (08:05)
[2024-01-15] MEDS: TRIAMCINOLONE ACETONIDE 0.1% CREAM 15 GM TUBE 1 APPLIC TOPICAL ×2 (08:07→21:07)
--- NOTE | 2024-01-15 09:01 | CM.NOTE ---
Rounds made with Dr. Reynolds, no discharge today. Redness has slightly increased beyond markings. Continue IV antibiotics.
--- NOTE | 2024-01-15 09:55 | SWNOTE1 ---
SW met with pt to discuss dc needs. Pt lives at home alone, has a sister if he needs anything. Pt does not use any DME at home, still drives and is independent. Pt has no anticipated discharge needs at this time. SW to follow as needed. SW did discuss dc Advanced Directives, he voiced at this point he does not want to complete one. He stated his sister will make decisions if anything happens. SW offered to bring booklet in for pt to look over. Pt is agreeable. GADIEL took booklet to pt's room.
--- NOTE | 2024-01-15 11:54 | OT.DAILY ---
Occupational Therapy Daily Note OT Inpatient Daily Visit Note Start: 01/14/24 14:20 Freq: Status: Active Protocol: Document 01/15/24 11:46 [id number] (Rec: 01/15/24 11:54 [id number]) OT Visit Details Time In/Time Out Time In 10:15 Time Out 10:45 Pain In Pain Level 7 OT Treatment Plan Subjective Subjective I am doing okay, I want to go home . Pt reports pain 10/09, still taking pain medication 2x per day. Objective Objective Pt AAOx4 upon arrival. Denies the need for self care at this time, completed this morning. Pt agreeable to take a walk. Completed STS from couch to walker with CGA. No LOB. When walking Pt is favoring RLE maintaining JJ. CGA during walk, followed with IV line. Denies SOB, dizziness, or feeling lightheaded. Pt is motivated to participate, eager to return home. LLE elevated when returning to couch. Educated on proper transfer techniques using walker, and importance of hygiene and skin care. Assessment Assessment Pt tolerated treatment well. Good ambulatory navigation with walker. Pt is unable to judy sock on L foot due to edema. Slight increase in pain after short distance. Continue OT POC. Standing tolerance 5x mins. OT Refrigeration Plant Operator Timed Codes Therapeutic activity minutes (minutes) 30 Therapeutic activity units 2
--- NOTE | 2024-01-15 12:02 | REH.PTDLY ---
Physical Therapy Daily Note PT Daily Note/Assess Start: 01/15/24 11:21 Freq: Status: Active Protocol: Document 01/15/24 11:21 HEATH (Rec: 01/15/24 11:27 [id number] Physical Therapy Daily Note/Assessment Time In 10:02 Time Out 10:14 Subjective Pt sitting bedside upon arrival and is agreeable to therapy. Rates leg pain as 6/ 10, till very shiny and red in appearance with swelling. Therapeutic Exercise Treatment Instructed in Ismael AP 15x. R LE LAQ, marching, and step outs 10x ea with no complaints. Therapeutic Activity Comments Sit to stand transfers Supervised. Gait training with RW SBA and pt ambulating 95 feet. Pt does well with navigating RW, when asked if pt needs a RW at DC he states he does not own a RW as he lives in upstairs apartment, does have a SC that he can use . Daily Note Summary Pt stays sitting up at end of rx with L LE elevated. Pt met his PT goals as he is able to safely navigate using a RW if he chooses to need one at DC. Pt did not use an AD prior to admission and as pain levels improve pt is expected to not need a device. Does have a SC at home. Reconsult PT if there is a decline in function prior to DC.
[2024-01-15] MEDS: CEFTRIAXONE 1,000 MG in 0.9 % SODIUM CHLORIDE 50 ML 100 MG IV (13:22)
[2024-01-15] MEDS: ENOXAPARIN SODIUM 40 MG/0.4 ML SYRINGE SUBQ (16:18)
[2024-01-15] MEDS: AMITRIPTYLINE HCL 25 MG TABLET PO (21:06)
[2024-01-16] VITALS (9 sets, daily range): BP systolic 119–139; BP diastolic 68–85; PULSE 64–85; TEMP 36.4–36.8; O2SAT 95–98
[2024-01-16] MEDS: CLINDAMYCIN PHOSPHATE/D5W 600 MG/50 ML PREMIX 100 MG IV ×4 (01:10→20:00)
[2024-01-16] MEDS: GABAPENTIN 300 MG CAPSULE PO ×3 (05:25→21:27)
[2024-01-16 05:42] LABS: Basophils Percent Auto 0.8 % (0.2-2.0); Eosinophils Absolute Auto 0.1 10^3/uL (0.0-0.7); Eosinophils Percent Auto 2.3 % (0.9-7.0); Hematocrit 37.7 % (42.0-54.0); Hemoglobin 12.1 g/dL (14.0-18.0); Immature Granulocytes Abs Auto 0.02 10^3/uL (0.00-0.03); Immature Granulocytes Pct Auto 0.5 % (0.0-0.5); Lymphocytes Absolute Auto 1.4 10^3/uL (1.2-3.8); Lymphocytes Percent Auto 35.7 % (20.5-60.0); Mean Corpuscular HGB Conc 32.1 g/dL (29.9-35.2); Mean Corpuscular Hemoglobin 34.1 pg (25.9-34.0); Mean Corpuscular Volume 106.2 fL (80.0-94.0); Mean Platelet Volume 9.5 fL (9.5-13.5); Monocytes Absolute Auto 0.5 10^3/uL (0.3-0.8); Monocytes Percent Auto 11.6 % (1.7-12.0); Neutrophils Absolute Auto 1.9 10^3/uL (1.4-6.5); Neutrophils Percent Auto 49.1 % (43.0-75.0); Platelet Count 250 10^3/uL (150-450); Red Blood Count 3.55 10^6/uL (4.70-6.10); Red Cell Distribution Width 13.9 % (11.0-15.0); White Blood Count 3.9 10^3/uL (4.0-11.0)
[2024-01-16 05:56] LABS: Erythrocyte Sedimentation Rate 70 mm/hr (<=20)
[2024-01-16 05:59] LABS: Anion Gap 14.8; BUN Creatinine Ratio 11.7; Calcium 8.7 mg/dL (8.5-10.1); Carbon Dioxide 24.5 mmol/L (21.0-32.0); Chloride 109 mmol/L (98-107); Estimated GFR (African America >60 (>=60 mL/min/1.73m^2); Estimated GFR (Non-African Ame 54 (>=60 mL/min/1.73m^2); Glucose 86 mg/dL (74-106); Potassium 4.3 mmol/L (3.5-5.1); Sodium 144 mmol/L (136-145)
--- NOTE | 2024-01-16 08:58 | P.PN_ITS ---
Progress Note: Subjective Subjective Interval history: Pain persisting in lower extremity. Exam Constitutional Vital Signs, click to edit/add: Last Vital Signs Temp 97.7 F 01/16/24 08:25 Pulse 85 01/16/24 08:28 Resp 20 01/16/24 08:28 BP 130/80 01/16/24 08:25 Pulse Ox 95 01/16/24 08:25 O2 Del Method Room Air 01/16/24 08:25 Documenting provider has reviewed patient's vital signs: yes Common normals: no apparent distress Chest Common normals: inspection of chest normal Respiratory Common normals: normal respiratory effort, no retractions, no use of accessory muscles and clear to auscultation bilaterally Cardio Common normals: regular rate, regular rhythm and no murmurs GI Common normals: Normal to inspection, nondistended, normoactive bowel sounds present Extremity Common normals: abnormal to inspection (Erythema now inside line of demarcation, improved from previous day) Progress Note: Objective Labs Labs: Short CBC 01/16/24 Range/Units 05:24 WBC 3.9 L (4.0-11.0) 10^3/uL Hgb 12.1 L (14.0-18.0) g/dL Hct 37.7 L (42.0-54.0) % Plt Count 250 (150-450) 10^3/uL BMP 01/16/24 05:24 Sodium 144 Potassium 4.3 Chloride 109 H Carbon Dioxide 24.5 BUN 16.0 Creatinine 1.37 H Glucose 86 Calcium 8.7 Progress Note: A&P Assessment and Plan (1) HIRAL (acute kidney injury): (2) Sepsis: (3) Cellulitis: (4) Fibromyalgia: (5) Psoriatic arthritis: (6) Hypertension: Plan Admission findings: Sinus tachycardia, elevated inflammatory markers of CRP and ESR, mild acute kidney injury, cellulitis secondary to immune compromised status with being on methotrexate for rheumatoid arthritis. Immune compromise left lower extremity cellulitis-IV antibiotics. Was outside the line of demarcation yesterday, improved today. Needs to maintain antibiotics due to immunocompromise status. If continues to improve possible discharge tomorrow Rheumatoid arthritis-immune compromised status with methotrexate-maintain current dosing except the methotrexate Acute kidney injury with initial baseline creatinine of 1.31 admission creatinine of 2.47 -represent increase of 188.6% above baseline - gentle hydration. Fibromyalgia-maintain current medications except NSAIDs due to her creatinine as outlined above Admission status: Patient with significant immunodeficiency secondary to being on methotrexate for extended period of time, severe cellulitis with rapid progression of to starting over night but is severe this morning. High risk for developing sepsis. Continue patient on IV antibiotics, blood cultures pending, inpatient status secondary to medically necessary treatment spanning 2 midnights due to immune deficiency
--- NOTE | 2024-01-16 09:11 | CM.NOTE ---
Rounds made with Dr. Reynolds. Continue with IV antibiotics today with potential discharge tomorrow if left lower extremity redness, swelling continue to decrease. Mr. Buckley verbalizes understanding.
[2024-01-16] MEDS: CALCIUM CARBONATE 600 MG/VITAMIN D3 400 IU TABLET 1 TAB PO ×2 (09:14→21:27)
[2024-01-16] MEDS: 0.9 % SODIUM CHLORIDE 250 ML 10 ML IV (09:14)
[2024-01-16] MEDS: ACETAMINOPHEN 500 MG TABLET 1000 MG PO ×2 (09:14→20:00)
[2024-01-16] MEDS: MULTIVITAMIN TABLET 1 TAB PO (09:14)
[2024-01-16] MEDS: AMLODIPINE BESYLATE 5 MG TABLET PO (09:15)
[2024-01-16] MEDS: HYDROCHLOROTHIAZIDE 25 MG TABLET 6.25 MG PO (09:15)
[2024-01-16] MEDS: CETIRIZINE HCL 10 MG TABLET PO (09:15)
[2024-01-16] MEDS: FOLIC ACID 1 MG TABLET PO (09:15)
[2024-01-16] MEDS: METOPROLOL TARTRATE 100 MG TABLET PO ×2 (09:15→21:27)
[2024-01-16] MEDS: TRIAMCINOLONE ACETONIDE 0.1% CREAM 15 GM TUBE 1 APPLIC TOPICAL ×2 (09:16→21:26)
--- NOTE | 2024-01-16 12:05 | NUTR.NU ---
Provided low sodium diet guidelines; pt states he limits dietary sodium at home but appreciates additional information. Will continue to follow PRN.
[2024-01-16] MEDS: CEFTRIAXONE 1,000 MG in 0.9 % SODIUM CHLORIDE 50 ML 100 MG IV (13:28)
[2024-01-16] MEDS: ENOXAPARIN SODIUM 40 MG/0.4 ML SYRINGE SUBQ (16:01)
[2024-01-16] MEDS: TIZANIDINE HCL 4 MG TABLET PO (20:00)
[2024-01-16] MEDS: AMITRIPTYLINE HCL 25 MG TABLET PO (21:27)
[2024-01-17] MEDS: CLINDAMYCIN PHOSPHATE/D5W 600 MG/50 ML PREMIX 100 MG IV ×2 (02:14→08:32)
[2024-01-17 04:00] VITALS: BP 124/81; PULSE 59; TEMP 36.6; O2SAT 91
[2024-01-17] MEDS: GABAPENTIN 300 MG CAPSULE PO (05:17)
[2024-01-17 06:04] LABS: Basophils Percent Auto 0.9 % (0.2-2.0); Eosinophils Absolute Auto 0.1 10^3/uL (0.0-0.7); Hematocrit 38.3 % (42.0-54.0); Hemoglobin 12.6 g/dL (14.0-18.0); Immature Granulocytes Abs Auto 0.03 10^3/uL (0.00-0.03); Immature Granulocytes Pct Auto 0.7 % (0.0-0.5); Lymphocytes Absolute Auto 1.5 10^3/uL (1.2-3.8); Lymphocytes Percent Auto 33.3 % (20.5-60.0); Mean Corpuscular HGB Conc 32.9 g/dL (29.9-35.2); Mean Corpuscular Hemoglobin 34.9 pg (25.9-34.0); Mean Corpuscular Volume 106.1 fL (80.0-94.0); Mean Platelet Volume 9.6 fL (9.5-13.5); Monocytes Absolute Auto 0.5 10^3/uL (0.3-0.8); Monocytes Percent Auto 10.2 % (1.7-12.0); Neutrophils Absolute Auto 2.4 10^3/uL (1.4-6.5); Neutrophils Percent Auto 52.9 % (43.0-75.0); Platelet Count 260 10^3/uL (150-450); Red Blood Count 3.61 10^6/uL (4.70-6.10); Red Cell Distribution Width 13.8 % (11.0-15.0); White Blood Count 4.6 10^3/uL (4.0-11.0)
[2024-01-17 06:19] LABS: Anion Gap 13.6; BUN Creatinine Ratio 10.3; Calcium 8.7 mg/dL (8.5-10.1); Carbon Dioxide 24.5 mmol/L (21.0-32.0); Chloride 110 mmol/L (98-107); Estimated GFR (African America >60 (>=60 mL/min/1.73m^2); Estimated GFR (Non-African Ame 54 (>=60 mL/min/1.73m^2); Glucose 83 mg/dL (74-106); Potassium 4.1 mmol/L (3.5-5.1); Sodium 144 mmol/L (136-145)
--- NOTE | 2024-01-17 06:38 | P.DS_ITS ---
DS: Providers Provider Date of admission: 01/14/24 12:58 Primary care physician: RODRIGO CARRION Consults: 01/14/24 Consult to Commodity Manager Routine Reason for consult:: Advanced Directives 01/14/24 10:24 Consult to Pharmacy Routine Consulting Provider: Reason for consultation: Please [place] me when Med Rec is Updated Has provider been notified: No Occupational Therapy Eval and Treat Routine Reason for consultation: Only if needed for Rehab Has provider been notified: No Physical Therapy Eval and Treat Routine Reason for consultation: Eval and Treat Has provider been notified: No DS: Diagnosis Discharge Diagnosis (1) HIRAL (acute kidney injury): (2) Sepsis: (3) Cellulitis: (4) Fibromyalgia: (5) Psoriatic arthritis: (6) Hypertension: Plan Admission findings: Sinus tachycardia, elevated inflammatory markers of CRP and ESR, mild acute kidney injury, cellulitis secondary to immune compromised status with being on methotrexate for rheumatoid arthritis. Immune compromise left lower extremity cellulitis-improving at the time of dis charge Rheumatoid arthritis-immune compromised status with methotrexate-maintain current dosing except the methotrexate Acute kidney injury with initial baseline creatinine of 1.31 admission creatinine of 2.47 -improving at the time of discharge. Fibromyalgia-maintain current medications except NSAIDs due to her creatinine as outlined above Admission status: Patient with significant immunodeficiency secondary to being on methotrexate for extended period of time, severe cellulitis with rapid progression of to starting over night but is severe this morning. High risk for developing sepsis. Continue patient on IV antibiotics, blood cultures pending, inpatient status secondary to medically necessary treatment spanning 2 midnights due to immune deficiency DS: Summary Hospital Course Hospital Course: Patient was admitted with admission findings: Sinus tachycardia, elevated inflammatory markers of CRP and ESR, mild acute kidney injury, cellulitis secondary to immune compromised status with being on methotrexate for rheumatoid arthritis. Patient was started on IV antibiotics without success. Then the following day he did have some erythema and spread outside the line of demarcation. Overall his symptoms were improved but with the progression in his immunocompromise status change patient to inpatient status and he was kept for 2 additional days. His erythema was just inside the line of demarcation yesterday and is much improved today. Pain is also improving still. Acute renal failure is continuing to improve daily. Patient is able ambulate much improved now. At this point he can be discharged to home in improving condition. Medications see list. Follow-up with a PCP within the next week. Time Spent with Patient Time attestation: Total time spent providing and/or coordinating discharge services: Exam Constitutional Vital Signs, click to edit/add: Last Vital Signs Temp 97.9 F 01/17/24 04:00 Pulse 59 L 01/17/24 04:00 Resp 20 01/17/24 04:00 BP 124/81 01/17/24 04:00 Pulse Ox 91 L 01/17/24 04:00 O2 Del Method Room Air 01/17/24 04:00 Documenting provider has reviewed patient's vital signs: yes Common normals: no apparent distress Chest Common normals: inspection of chest normal Respiratory Common normals: normal respiratory effort, no retractions, no use of accessory muscles and clear to auscultation bilaterally Cardio Common normals: regular rate, regular rhythm and no murmurs GI Common normals: Normal to inspection, nondistended, normoactive bowel sounds present Extremity Common normals: abnormal to inspection (Erythema now well inside line of demarcation, improved from previous day) DS: Data Data Completed and Pending Labs on day of discharge: Labs from last 24 hours 01/17/24 05:53 WBC 4.6 RBC 3.61 L Hgb 12.6 L Hct 38.3 L MCV 106.1 H MCH 34.9 H MCHC 32.9 RDW 13.8 Plt Count 260 MPV 9.6 Neut % (Auto) 52.9 Lymph % (Auto) 33.3 [place] % (Auto) 10.2 Eos % (Auto) 2.0 Baso % (Auto) 0.9 Neut # (Auto) 2.4 Lymph # (Auto) 1.5 [place] # (Auto) 0.5 Eos # (Auto) 0.1 Baso # (Auto) 0.0 Abs Immat Gran (auto) 0.03 Imm/Tot Granulo (auto) 0.7 H Sodium 144 Potassium 4.1 Chloride 110 H Carbon Dioxide 24.5 Anion Gap 13.6 BUN 14.0 Creatinine 1.36 H Est GFR ( Amer) >60 Est GFR (Non-Af Amer) 54 L BUN/Creatinine Ratio 10.3 Glucose 83 Calcium 8.7 Discharge Plan Discharge Disposition: Home, Self-Care Condition: Fair Discharge Medications: New cefdinir 300 mg capsule 600 mg PO DAILY Qty: 20 0RF clindamycin HCl 300 mg capsule 300 mg PO Q6H 10 Days Qty: 40 0RF Continued amitriptyline 25 mg tablet 25 mg PO .HS bisoprolol-hydrochlorothiazide 10-6.25 mg tablet 1 tab PO .QD calcium carbonate-vitamin D3 [Oyster Shell Calcium-Vit D3] 500 mg-5 mcg (200 unit) tablet 1 tab PO BID cetirizine 10 mg tablet 10 mg PO .QD diclofenac sodium 75 mg tablet,delayed release (DR/EC) 75 mg PO BID PRN (Reason: pain) folic acid 1 mg tablet 1 mg PO .QD gabapentin 300 mg capsule 300 mg PO TID Patient Comments: Take 2 tabs in the morning, 1 tab in afternoon and 2 tabs at bedtime halobetasol propionate 0.05 % cream 1 applic TOPICAL BID methotrexate sodium 2.5 mg tablet 2.5 mg PO QWEEK Rx Instructions: TAKE 7 TABLETS EVERY WEEK tizanidine 4 mg tablet 4 mg PO BID PRN (Reason: muscle spasticity) Rx Instructions: 1 TAB IN AM 2 TABS HS triamcinolone acetonide 0.1 % cream 1 applic TOPICAL BID cyanocobalamin (vitamin B-12) 1,000 mcg capsule 1,000 mcg PO DAILY multivitamin Tablet 1 tab PO DAILY azelastine-fluticasone 137-50 mcg/spray spray,non-aerosol 1 spray intranasal .QD Rx Instructions: administer into each nostril amlodipine 5 mg tablet 5 mg PO .QD bupropion HCl 300 mg tablet extended release 24 hr 300 mg PO .QD Print Language: Greek Patient Instructions: Cellulitis (GEN) Forms: Portal Instructions Follow Up Appointments: @ 3pm with Dr. Carrion [phone]
[2024-01-17 06:39] LABS: Erythrocyte Sedimentation Rate 57 mm/hr (<=20)
[2024-01-17 07:53] VITALS: BP 124/83; PULSE 66; TEMP 36.8; O2SAT 96
[2024-01-17 08:33] VITALS: BP 124/84
[2024-01-17] MEDS: AMLODIPINE BESYLATE 5 MG TABLET PO (08:33)
[2024-01-17] MEDS: CALCIUM CARBONATE 600 MG/VITAMIN D3 400 IU TABLET 1 TAB PO (08:34)
[2024-01-17] MEDS: CETIRIZINE HCL 10 MG TABLET PO (08:34)
[2024-01-17 08:35] VITALS: BP 124/84
[2024-01-17] MEDS: FOLIC ACID 1 MG TABLET PO (08:35)
[2024-01-17] MEDS: HYDROCHLOROTHIAZIDE 25 MG TABLET 6.25 MG PO (08:35)
[2024-01-17] MEDS: METOPROLOL TARTRATE 100 MG TABLET PO (08:36)
[2024-01-17] MEDS: TRIAMCINOLONE ACETONIDE 0.1% CREAM 15 GM TUBE 1 APPLIC TOPICAL (08:36)
[2024-01-17] MEDS: MULTIVITAMIN TABLET 1 TAB PO (08:36)
--- NOTE | 2024-01-17 09:11 | CM.NOTE ---
Rounds made with Dr. Reynolds, pt will discharge to home today. Pt will f/u with Dr. Carrion. Pt home with self care.
--- NOTE | 2024-01-17 10:42 | SWNOTE1 ---
SW stopped back in and spoke with pt about a wheeled walker. SW asked pt if he had a walker at home? Pt voiced he does not, just a cane. SW offered to get pt a walker through his insurance, but pt does not feel he needs one at this time. SW advised pt that if he gets home and does decide he wants one to check [employer] and [employer] stores and if he can't find one that many places like [employer] [facility], and [facility] have them. Pt voiced understanding.
[2024-01-17] MEDS: BUPROPION HCL 150 MG XL TABLET 24H 300 MG PO (10:51)
--- NOTE | 2024-01-21 12:12 | CM.DCFOLLOWU ---
Person spoke with:patient How are you feeling?alright How is your pain? still pain, but it is manageable Did you understand your discharge instructions?yes Do you have any questions about your discharge instructions?no Were you given any prescriptions at discharge?yes Were you able to get your prescriptions filled?yes Do you understand how to take your medications as ordered?yes Do you have any questions about your follow up appointment and do you plan to keep your follow up appointment?no questions, follow up reviewed, advised to return to ED if symptoms worsen Is there anything else that you would like to discuss?no Questions/Comments/Concerns/Other: n/a
== END 2024-01-17 11:15 | disposition home or self-care (01) | DRG 383 ==
LOC: ER 09:38 → MS 11:57
PROVIDERS: Admitting Provider Family Medicine; Emergency Provider Student in an Organized Health Care Education/Training Program; PCP Family Medicine; Visit Provider Family Medicine
DX: L03.116 Cellulitis of left lower limb (principal); N17.9 Acute kidney failure, unspecified; M06.9 Rheumatoid arthritis, unspecified; Z79.899 Other long term (current) drug therapy; M79.7 Fibromyalgia; I10 Essential (primary) hypertension; Z98.84 Bariatric surgery status; Z90.49 Acquired absence of other specified parts of digestive tract; E66.9 Obesity, unspecified; D84.821 Immunodeficiency due to drugs; T45.1X5A Adverse effect of antineoplastic and immunosuppressive drugs, initial encounter; Z68.32 Body mass index [BMI] 32.0-32.9, adult; S80.812A Abrasion, left lower leg, initial encounter; W18.39XA Other fall on same level, initial encounter; R79.82 Elevated C-reactive protein (CRP); R70.0 Elevated erythrocyte sedimentation rate
CPT/HCPCS: 36415; 73590; 80048; 83605; 85025; 85652; 86140; 87040; 90674; 93005; 93971; 94761; 96365; 96366; 96368; 97161; 97165; 97530; 99285; J0696; J1650; J2543; J3370

== ENCOUNTER 2024-02-06 07:34 | Outpatient (OUT) | payer OTHER, SELFPAY ==
--- OUTSIDE RECORDS SUMMARY | 2024-02-06 07:38 | XMS_ITS | CCD ---
Author Organization [facility] Care Team Providers Care Centralized Traffic Control Operator Name Role Phone Rodrigo Luz Unavailable PILI ALLAN Surgeon Unavailable PILI ALLAN Attending Unavailable PILI ALLAN Admitting Unavailable [place] Procedure Practitioner Unavailab RODRIGO Proctor Referring Unavailable RODRIGO LUZ Primary Care Unavailable DANIELA MILIAN Surgeon Unavailable IA Procedure Practitioner UnavailRodrigo Cannon MD Primary Care Provider Rodrigo Luz MD Primary Care Provider TRA VALE JR Attending Unavailable TRA VALE JR Referring Unavailable RODRIGO LUZ Primary Care Unavailable TRA VALE JR Attending Unavailable TRA VALE JR Referring Unavailable RODRIGO LUZ Primary Care Unavailable Tania Neal Unavailable TRA VALE Admitting Unavailable TRA VALE Attending Unavailable AREN ., DR RODRIGO Kang Primary Care Unavailable [...] ., DR RODRIGO Kang Primary Care Unavailable FELTBEAR GATES Consulting Unavailable [...] Consulting Unavailable Rodrigo Brink. Primary Care Physician [phone] RODRIGO LUZ Primary Care Unavailable LUZ, RODRIGO Primary Care Unavailable LUZ, RODRIGO Primary Care Unavailable LUZ, RODRIGO Primary Care Unavailable Luz , Rodrigo Primary Care Provider Rodrigo Brink MD Primary Care Provider SELF, SELF Referring Unavailable RODRIGO BRINK Primary Care Unavailable ELA VIDALES, TRA Vasquez Attending Unavaila ble SELF, SELF Referring Unavailable AREN, RODRIGO Primary Care Unavailable STAINKAYA VIDALES, TRA Vasquez Attending Unavaila ble LUZ, RODRIGO Primary Care Unavailable Ross, Rodrigo E. Admitting Unavailable Ross, Rodrigo E. Attending Unavailable Murali, Rodrigo E. Referring Unavailable Murali, Rodrigo E. Admitting Unavailable Yusuf POLLARD Attending Unavailable Murali, Rodrigo E. Referring Unavailable Lula POLLARDrick R Attending Unavailable Ross, Rodrigo E. Referring Unavailable Ross, Rodrigo E. Attending Unavailable Ross, Rodrigo E. Attending Unavailable Ross, Rodrigo E. Attending Unavailable Ross, Rodrigo E. Attending Unavailable Ross, Rodrigo E. Attending Unavailable Murali, Rodrigo E. Attending Unavailable Ross, Rodrigo E. Attending Unavailable Ross, Rodrigo E. Attending Unavailable Ross, Rodrigo E. Attending Unavailable Ross, Rodrigo E. Attending Unavailable Ross, Rodrigo E. Attending Unavailable Ross, Rodrigo E. Attending Unavailable Allergies Allergy Classification Reported Allergen(s) Allergy Type Date of Onset Reaction(s) Facility adalimumab (1 source) adalimumab; Translations: [HUMIRA] Drug Allergy 8 [facility] Repository Opioid Agonists (1 source) Morphine; Translations: [MORPHINE] Drug Allergy 8 [facility] Repository secukinumab (1 source) secukinumab; Translations: [COSENTYX] Drug Allergy 8 [facility] Repository (20 sources) adalimumab; Translations: [adalimumab] Drug Allergy rash [facility] Work Phone: (20 sources) Morphine; Translations: [morphine] Drug Allergy 1 Unknown (qualifier value) [facility] Work Phone: (20 sources) secukinumab; Translations: [secukinumab] Drug Allergy rash [facility] Work Phone: (1 source) adalimumab Drug Allergy [facility] Repository (1 source) Morphine Drug Allergy [facility] Repository (1 source) secukinumab Drug Allergy [facility] Repository Medications Current Medications Medication Drug Class(es) Dates Sig (Normalized) Sig (Original) amitriptyline hydrochloride 25 mg oral tablet (11 sources) Tricyclic Antidepressant Start: 09-20-2023 take 2 tablets by mouth at bedtime amitriptyline 25 mg Tab See Instructions, TAKE 2 TABLETS BY MOUTH AT BEDTIME, # 60 tab(s), Refills(s) 5, Pharmacy: [facility]/pharmacy #[id number], 180.3, cm, 09/20/23 9:40:00 EDT, Height/Length Dosing, 113.4, kg, 09/20/23 9:40:00 EDT, Weight Dosing Start Date: 09/20/23 Status: Ordered Start: 06-20-2020 take 2 tablets by mo uth at bedtime amitriptyline 25 mg Tab See Instructions, TAKE 2 TABLETS BY MOUTH AT BEDTIME, # 60 tab(s), Refills(s) 5, Pharmacy: [facility]/pharmacy #[id number], 180.3, cm, 05/17/23 9:51:00 EST, Height/Length Dosing, 105.1, kg, 05/17/23 9:51:00 EST, Weight Dosing Start Date: 05/17/23 Status: Ordered Amitriptyline HC l Active amLODIPine 5 mg oral tablet (20 sources) Dihydropyridine Calcium Channel Colette Start: 09-20-2023 take 1 tablet by mouth once daily amLODIPine 5 mg Tab 5 mg = 1 tab(s), Oral, Daily, # 90 tab(s), Refills(s) 1, [id number] 180.3, cm, 09/20/23 9:40:00 EDT, Height/Length Dosing, 113.4, kg, 09/20/23 9:40:00 EDT, Weight Dosing Start Date: 09/20/23 Status: Ordered Start: 07-26-2022 take 1 tablet by eloy th once daily amLODIPine 5 mg Tab 5 mg = 1 tab(s), Oral, Daily, # 90 tab(s), Refills(s) 3, Pharmacy: [facility]/pharmacy #[id number] Start Date: 07/26/22 Status: Ordered [...] tab(s), Oral, Daily, 90 tab(s), Refill(s) 1, [facility]/pharmacy #[id number], 180.3, cm, 09/20/23 9:40:00 EDT, Height/Length Dosing, 113.4, kg, 09/20/23 9:40:00 EDT, Weight Dosing Start Date: 09/20/23 Status: Ordered Start: 07-09-2020 take 1 tablet by eloy th once daily bisoprolol-hydrochlorothiazide 10 mg-6.2 5 mg Tab 1 tab(s), Oral, Daily, 90 tab(s), Refill(s) 1, [facility]/pharmacy #[id number], 180.3, cm, 03/05/23 14:04:00 EST, Height/Length Dosing, 102, kg, 03/05/23 14:04:00 EST, Weight Dosing Start Date: 03/13/23 Status: Ordered 24 hr buPROPion hydrochloride 300 mg extended release oral tablet (4 sources) Aminoketone Start: 08-16-2023 take 1 tablet by mouth every twenty-four hours buPROPion 300 mg/24 hours ER Tab 300 mg = 1 tab(s), Oral, q24hr, # 90 tab(s), Refills(s) 1, Pharmacy: [facility]/pharmacy #[id number], 180.3, cm, 08/16/23 13:16:00 EDT, Height/Length Dosing, 108.4, kg, 08/16/23 13:16:00 EDT, Weight Dosing Start Date: 08/16/23 Status: Ordered Start: 01-12-2023 take 1 tablet by eloy th every twenty-four hours buPROPion 150 mg/24 hours XL Tab 150 mg = 1 tab(s), Oral, q24hr, # 90 tab(s), Refills(s) 1, Pharmacy: [facility]/pharmacy #[id number], 180.3, cm, 11/15/22 16:44:00 EDT, Height/Length Dosing, 106.5, kg, 11/15/22 16:44:00 EDT, Weight Dosing Start Date: 01/12/23 Status: Ordered Start: 10-23-2022 take 1 tablet by eloy th every twenty-four hours buPROPion 150 mg/24 hours XL Tab 150 mg = 1 tab(s), Oral, q24hr, # 90 tab(s), Refills(s) 0, Pharmacy: [facility]/pharmacy #[id number], 180.3, cm, 10/20/22 8:11:00 EDT, [...] DAY, # 90 tab(s), Refills(s) 1, Pharmacy: [facility]/pharmacy #[id number], 180.3, cm, 08/16/23 13:16:00 EDT, Height/Length Dosing, 108.4, kg, 08/16/23 13:16:00 EDT, Weight Dosing Start Date: 08/16/23 Status: Ordered Start: 04-15-2018 take 1 tablet by eloy th once daily cetirizine 10 mg Tab See Instructions, TAKE 1 TABLET BY MOUTH EVERY DAY, # 90 tab(s), Refills(s) 0, Pharmacy: [facility] STORE [id number], 180.3, cm, 05/17/23 9:51:00 EST, Height/Length Dosing, 105.1, kg, 05/17/23 9:51:00 EST, Weight Dosing Start Date: 05/31/23 Status: Ordered yrTE Active cholecalciferol 0.25 mg oral capsule (20 sources) Vitamin D Start: 2023 take 1 capsule by mouth every week [facility] Vitamin D3 250 MCG (38979 UT) capsule capsule Indications: Vitamin D deficiency take 1 capsule by mouth one time per week 4 capsule 14 2023 Active Start: 05-18-2022 take 1 capsule by mo uth every week Cholecalciferol (Vitamin D3) 250 MCG (61732 UT) capsule Indications: Vitamin D deficiency TAKE 1 CAPSULE BY MOUTH ONE TIME PER WEEK 4 capsule 14 05/18/2022 Active Start: 05-11-2021 take 1 capsule by mo uth every week Cholecalciferol ([facility] Vitamin D3) 250 MCG (12801 UT) capsule capsule Indications: Vitamin D deficiency TAKE 1 CAPSULE BY MOUTH ONE TIME PER WEEK 4 capsule 14 05/11/2021 Active Start: 04-28-2020 take 1 capsule by mo uth every week Cholecalciferol ([facility] Vitamin D3) 250 MCG (60458 UT) capsule capsule Indications: Vitamin D deficiency TAKE 1 CAPSULE BY MOUTH ONE TIME PER WEEK 4 capsule 14 04/28/2020 Active Start: 04-21-2019 take 1 capsule by mo uth every week Cholecalciferol ([facility] VITAMIN D3) 250 MCG (67779 UT) Cap capsule Indications: Vitamin D deficiency TAKE 1 CAPSULE BY MOUTH ONCE A WEEK 4 capsule 14 04/21/2019 Active Start: 09-03-2018 End: 09-03-2018 take 2 capsules by mouth once Cholecalciferol (MAXIMUM D3) 99759 units Cap Indications: Vitamin D deficiency 2 po one day a week 10 capsule 11 09/03/2018 Active Start: 04-17-2018 End: 09-03-2018 take 1 capsule by mouth once Cholecalciferol (MAXIMUM D3) 45596 units Cap Indications: Vitamin D deficiency 1 [...] Plaque psoriasis , Hyperchromic anemia , Methotrexate, 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, current use , Long-term current use of [...] type , History of psoriatic arthritis , 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) , 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 , Methotrexate, 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, current use , Long-term current use of [...] bedtime, # 60 cap(s), Refills(s) 2, Pharmacy: [facility] STORE [id number], 180.3, cm, 03/05/23 14:04:00 EST, Height/Length Dosing, 102, kg, 03/05/23 14:04:00 EST, Weight Dosing Start Date: 04/30/23 Status: Ordered Start: 04-30-2023 take 1 capsule by [facility] twice daily gabapentin 300 mg Cap See Instructions, TAKE 1 CAPSULE BY MOUTH TWICE A DAY, # 60 cap(s), Refills(s) 2, Pharmacy: [facility] STORE [id number], 180.3, cm, 03/05/23 14:04:00 EST, Height/Length Dosing, 102, kg, 03/05/23 14:04:00 EST, Weight Dosing Start Date: 04/30/23 Status: Ordered Start: 11-15-2022 take 1 capsule by [facility] twice daily gabapentin 300 mg Cap 300 mg = 1 cap(s), Oral, BID, # 180 cap(s), Refills(s) 0, [id number] 180.3, cm, 11/15/22 16:44:00 EDT, Height/Length Dosing, 106.5, kg, 11/15/22 16:44:00 EDT, Weight Dosing Start Date: 11/15/22 Status: Ordered Start: 10-30-2022 take 1 capsule by [facility] twice daily gabapentin 300 mg Cap 300 mg = 1 cap(s), Oral, BID, # 60 cap(s), Refills(s) 0, Pharmacy: [facility]/pharmacy #[id number], 180.3, cm, 10/20/22 8:11:00 EDT, Height/Length Dosing, 109.1, kg, 10/20/22 8:11:00 EDT, Weight Dosing Start Date: 10/30/22 Status: Ordered Start: 03-18-2018 take 1 capsule by [facility] once daily in the morning gabapentin 300 MG Cap capsule Take 1 capsule by mouth daily every morning. 0 03/18/2018 Active Gabapentin Activ e halobetasol propionate 0.5 mg/ml topical cream (20 sources) Corticosteroid Start: 07-29-2019 halobetasol 0. 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, 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, current use , Long-term current use of high risk medication other than anticoagulant , 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 , 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 [...] Refills(s) 0 Start Date: 06/15/22 Status: Ordered Taltz Active Meclizine (1 source) Antiemetic Meclizine HCl [...] spondylitis , History of psoriatic arthritis , 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) , 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 , Long-term current use of high risk medication other than anticoagulant , Methotrexate, 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, current use , Noncompliance , Patient non [...] , Psoriasis , Anemia, unspecified type , USP current use of non-steroidal anti-inflammatories (NSAID) , 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 , Methotrexate, 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, current use , Long-term current use of [...] tab(s), Oral, BID, 90 tab(s), Refill(s) 1, [facility]/pharmacy #[id number], 180.3, cm, 09/20/23 9:40:00 EDT, Height/Length Dosing, 113.4, kg, 09/20/23 9:40:00 EDT, Weight Dosing Start Date: 09/20/23 Status: Ordered predniSONE 1 mg oral tablet (20 sources) Start: 01-07-2019 End: 05-06-2019 take 4 tablets by mouth once in the morning predniSONE 1 MG Tab tablet Indications: Psoriatic arthritis , Psoriatic spondylitis , Psoriasis , Plaque psoriasis , Anemia, unspecified type , 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, 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, current use , Long-term current use of high risk medication other than anticoagulant , 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 , USP current use of non-steroidal anti-inflammatories (NSAID) , [...] spondylitis , History of psoriatic arthritis , USP current use of non-steroidal anti-inflammatories (NSAID) , 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 , Long-term current use of high risk medication other than anticoagulant , Methotrexate, 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, current use , Noncompliance , Patient non [...] , Psoriasis , Anemia, unspecified type , USP current use of non-steroidal anti-inflammatories (NSAID) , USP current use of systemic steroids , Methotrexate, 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, current use , Long-term current use of [...] type , History of psoriatic arthritis , 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) , 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 , Methotrexate, 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, current use , Long-term current use of [...] BID, # 60 cap(s), Refills(s) 11, Pharmacy: [facility]/pharmacy #[id number], 180, cm, 10/01/23 13:04:00 EDT, Height/Length Dosing, 104.7, kg, 10/01/23 13:04:00 EDT, Weight Dosing Start Date: 10/01/23 Status: Ordered triamcinolone acetonide 0.001 mg/mg topical ointment (20 sources) Corticosteroid Start: 07-09-2023 triamcinolone 0.1 % Ointment ointment Indications: Psoriatic arthritis , Psoriatic spondylitis , Psoriasis , Plaque psoriasis , Anemia, unspecified type , Methotrexate, 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, current use , Long-term current use of high risk medication other than anticoagulant , 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 , USP current use of non-steroidal anti-inflammatories (NSAID) , [...] psoriasis , Anemia, unspecified type , Methotrexate, 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, current use , Long-term current use of high risk medication other than anticoagulant , 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 , USP current use of non-steroidal anti-inflammatories (NSAID) , [...] psoriasis , Anemia, unspecified type , Methotrexate, 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, current use , Long-term current use of high risk medication other than anticoagulant , USP current use of systemic steroids , 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 [...] psoriasis , Anemia, unspecified type , Methotrexate, 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, current use , Long-term current use of high risk medication other than anticoagulant , USP current use of systemic steroids , USP current use of non-steroidal anti-inflammatories (NSAID) , [...] psoriasis , Anemia, unspecified type , Methotrexate, 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, current use , Long-term current use of high risk medication other than anticoagulant , 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 , 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 [...] psoriasis , Anemia, unspecified type , Methotrexate, 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, current use , Long-term current use of high risk medication other than anticoagulant , USP current use of systemic steroids , USP current use of non-steroidal anti-inflammatories (NSAID) , [...] psoriasis , Anemia, unspecified type , Methotrexate, 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, current use , Long-term current use of high risk medication other than anticoagulant , 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 , USP current use of non-steroidal anti-inflammatories (NSAID) , [...] psoriasis , Anemia, unspecified type , Methotrexate, 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, current use , Long-term current use of high risk medication other than anticoagulant , USP current use of systemic steroids , USP current use of non-steroidal anti-inflammatories (NSAID) , [...] psoriasis , Anemia, unspecified type , Methotrexate, 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, current use , Long-term current use of high risk medication other than anticoagulant , USP current use of systemic steroids , USP current use of non-steroidal anti-inflammatories (NSAID) , [...] psoriasis , Anemia, unspecified type , 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, 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, current use , Long-term current use of high risk medication other than anticoagulant , 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 , 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 [...] psoriasis , Anemia, unspecified type , Methotrexate, 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, current use , Long-term current use of high risk medication other than anticoagulant , 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 , 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 [...] psoriasis , Anemia, unspecified type , Methotrexate, 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, current use , Long-term current use of high risk medication other than anticoagulant , USP current use of systemic steroids , USP current use of non-steroidal anti-inflammatories (NSAID) , [...] End: 01-07-2019 triamcinolone 0.1 % Cream cr eam Indications: Psoriatic arthritis , Psoriatic spondylitis , Psoriasis , Plaque psoriasis , Anemia, unspecified type , Methotrexate, 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, current use , Long-term current use of high risk medication other than anticoagulant , USP current use of systemic steroids , 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 [...] psoriasis , Anemia, unspecified type , Methotrexate, 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, current use , Long-term current use of high risk medication other than anticoagulant , 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 , USP current use of non-steroidal anti-inflammatories (NSAID) , [...] Start: 07-02-2022 fluticasone Na corina 0.05 mg/inh [place] See Instructions, 16 mL, Refill(s) 0, SPRAY 2 SPRAYS INTO EACH NOSTRIL DAILY, [id number] Start Date: 07/02/22 Status: Ordered Start: 04-15-2018 [...] hydrochloride 5 mg oral tablet (1 source) [id number]-[id number]-aspartate Receptor Antagonist Start: 04-06-2018 End: 05-03-2018 memantine [...] stones , History of psoriatic arthritis , USP current use of non-steroidal anti-inflammatories (NSAID) , Long-term current use of high risk medication other than anticoagulant , 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, 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, current use , Abnormal renal function test [...] , Psoriasis , Anemia, unspecified type , USP current use of non-steroidal anti-inflammatories (NSAID) , USP current use of systemic steroids , Methotrexate, 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, current use , Long-term current use of [...] , Psoriasis , Anemia, unspecified type , USP current use of non-steroidal anti-inflammatories (NSAID) , 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 , Methotrexate, 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, current use , Long-term current use of [...] , Psoriasis , Anemia, unspecified type , USP current use of non-steroidal anti-inflammatories (NSAID) , USP current use of systemic steroids , Methotrexate, 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, current use , Long-term current use of [...] mg injection every 12 weeks 1 Syringe 05/29/2018 Active Start: 03-29-2018 End: 05-29-2018 ustekinumab 90 MG/ML Solutio n Prefilled Syringe injection Indications: Psoriatic arthritis , 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 Start on 05/02/1803/29/2018 Active Problems Active Problems Problem Classification Problem [...] Onset: 9 05-03-2018 Other aftercare (20 sources) USP methotrexate user; Translations: [Other 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 (current) drug therapy] Onset: 8 03-29-2018 Episodic Other aftercare (10 sources) Drug therapy finding; Translations: [Other 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 (current) drug therapy] Onset: 8 Episodic Other aftercare (3 sources) Other 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 (current) drug therapy; Translations: [OTH LONGTERM CURRENT DRUG THERAPY] Onset: 8 Episodic Other aftercare (1 source) 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 (current) use of non-steroidal [...] Unclassified (20 sources) Patient encounter status; Translations: [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 [...] PAIN, UNSPECIFIED] Onset: 3 Unclassified (1 source) 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; Translations: [LONGTERM USE ANTIMETABOLITE AGENT] Onset: 3 Unclassified (1 source) CONTACT W/AND (SUSP) EXPOS COVID-19; Translations: [CONTACT W/AND (SUSP) EXPOS COVID-19] Onset: 2 Unclassified (1 source) 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 (current) use of antimetabolite agent; Translations: [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 (current) use of antimetabolite agent] Onset: 8 [...] Long-term current use of systemic steroid; Translations: [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 (current) use of systemic steroids] Onset: 8 Resolved: 0 Episodic Other aftercare (8 sources) Patient encounter status; Translations: [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 (current) use of non-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-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)] Onset: 8 Resolved: 3 Episodic Other aftercare (5 sources) Long-term current use of immunosuppressive drug; Translations: [Other 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 (current) drug therapy] Onset: 8 Resolved: 8 03-29-2018 Episodic Other aftercare (1 source) 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 (current) use of systemic steroids; Translations: [LONGTERM USE OF SYSTEMIC STEROIDS] Onset: 2 Episodic [...] Long-term current use of immunosuppressive drug; Translations: [USP current use of immunosuppressive drug] Onset: 8 Resolved: 8 03-29-2018 Unclassified (1 source) Psoriatic spondylitis Unclassified (20 sources) Long-term current use of systemic steroid; Translations: [USP current use of systemic steroids] Onset: 8 Resolved: 0 03-29-2018 Unclassified (1 source) 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 Unclassified (1 source) LOW BACK PAIN, UNSPECIFIED; Translations: [LOW BACK PAIN, UNSPECIFIED] Onset: 3 Unclassified (1 source) USP (current) use of antimetabolite agent; Translations: [USP (current) use of antimetabolite agent] Onset: 4 Results Test Name Value Interpretation Reference Range Facil ity Ambulatory Visit Summaryon 1 04-06-2023 Ambulatory Visit Summary Ambulatory Visit Summary GLENDA BUCKLEY :1965 Visit Date:02/05/2024 Ambulatory Visit Instructions Your Diagnosis Cellulitis of lower extremity, unspecified laterality Essential hypertension BMI 35.0-35.9,adult Exogenous obesity Former smoker Your Care Team Attending Physician [...] oral tablet) cetirizine (cetirizine 10 mg Tab) diclofenac fluticasone nasal (fluticasone Nasal 0.05 mg/inh [place]) furosemide (Lasix 40 mg Tab) gabapentin (gabapentin 300 mg Cap) ipratropium nasal (ipratropium Nasal 0.03% [place]) ixekizumab (Taltz Autoinjector 80 mg/mL subcutaneous solution) tamsulosin (tamsulosin 0.4 mg Cap) tizanidine Procedures Performed Appendectomy, CABG (Coronary artery bypass grafting) planned, Inguinal hernia. Discharge Vitals Temperature (Temporal Artery) 37.1 ???C Heart Rate (Peripheral) 72 Respiratory Rate 16 Blood Pressure 122/80 Height 180 cm Height 71 in Weight 114.2 kg Weight 251.24 lb BMI 35.25 What to do next Scheduled Follow-Up Appointments Sunday 7:30 AM EST With: Rodrigo Brink MD Where: [address] [address]- 2023 10:00 AM EST With: Rodrigo Brink MD Where: [address] [address]- Medications What How Much When Instructions Unchanged amitriptyline (amitriptyline 25 mg Tab) See instructions TAKE 2 TABLETS BY MOUTH AT BEDTIME Unchanged amlodipine (amLODIPine 5 mg Tab) 1 Tablets By Mouth Every day Unchanged bisoprolol-hydroch lorothiazide (bisoprolol-hydroc hlorothiazide 10 mg-6.25 mg Tab) 1 Tablets By Mouth Every day Unchanged buPROPion (buPROPion 300 mg/ 24 hours ER Tab) See instructions TAKE 1 TABLET BY MOUTH EVERY DAY Unchanged calcium-vitamin D (Oyster Shell Calcium with Vitamin D 500 mg-200 intl units oral tablet) See instructions TAKE 1 TABLET BY MOUTH TWICE A DAY Unchanged cetirizine (cetirizine 10 mg Tab) See instructions TAKE 1 TABLET BY MOUTH EVERY DAY Unchanged diclofenac 75 Milligram By Mouth 2 times a day Unchanged fluticasone nasal (fluticasone Nasal 0.05 mg/ inh [place]) See instructions SPRAY 1 SPRAY INTO EACH NOSTRIL EVERY DAY Unchanged furosemide (Lasix 40 mg Tab) 1 Tablets By Mouth Every day Unchanged gabapentin (gabapentin 300 mg Cap) See instructions Take 2 orally in the am, one in the afternoon and one at bedtime Unchanged ipratropium nasal (ipratropium Nasal 0.03% [place]) See instructions USE 2 SPRAYS IN EACH NOSTRIL 3 TIMES DAILY Unchanged ixekizumab (Taltz Autoinjector 80 mg/ mL subcutaneous solution) Subcutaneous Every 4 weeks Unchanged tamsulosin (tamsulosin 0.4 mg Cap) 1 Capsules By Mouth 2 times a day Unchanged tizanidine See instructions Take 1 tablet in the am and take 2 tablets in the evening Allergies morphine (Unknown) Problems Ongoing - Any problem that you are currently receiving treatment for. Anemia Anxiety 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 Contusion COVID-19 Essential hypertension Fatigue Kidney stones Macrocytosis Obesity due to excess calories Psoriasis arthropathica Screening PSA (prostate specific antigen) Sleep disorder Spasm of back muscles Stage 3a chronic kidney disease (CKD) Syncope Vitamin D deficiency Historical - Any problem that you are no longer receiving treatment for. COPD (Chronic Obstructive Pulmonary Disease) Assessment Test scale HTN - Hypertension Nephrolithiasis Psoriasis Psoriatic arthritis Patient Survey You may receive a survey via text or e-mail asking about your office visit. Please share your experience with us by completing your survey. We appreciate your feedback and thank you for choosing us for your care. [facility] Family Medicine Office/Clini c Noteon 02-05-2024 Family Medicine Office/Clinic Note Family Medicine Office/Clinic Note HPI Staff Glenda is a 58 year old male presenting for one week follow up cellulitis left leg. HIRAL ARNAV diuretic to reduce fluid retention, cont antibiotics, kristie wrap for support Completed the meds, wrapped it some but didn't remember to do it all the time Leg is better swelling is down not all the way but it's down. It still hurts some rates it a 5 questions/concerns ; needs his bupropion refiled History of Present Illness Here for a 1 week follow-up. Patient still has some erythema however that is improved. Patient also has some swelling reduction. Please see staff HPI for more. As reminder patient already had a DVT rule out in the hospital. Patient is not complaining of any calf pain. But it is concerning having a unilateral edema. Review of Systems PHQ Score Initial Depression Screen Score: 0 SCORE Physical Exam Vitals & Measurements T: 37.1 ???C(Temporal Artery) HR: 72(Peripheral) RR: 16 BP: 122/80 SpO2: 98% HT: 71 in HT: 180 cm WT: 114.2 kg WT: 251.24 lb BMI: 35.25 Unilateral left lower extremity edema with erythema as seen by the pictures. Images [Image Removed: 2024-01-28 08:13:49]2024-01-02 8 08:13:49 [Image Removed: 2024-01-28 08:14:08]2024-01-02 8 08:14:08 [Image Removed: 2024-02-05 08:35:52] 5 08:35:52 [Image Removed: 2024-02-05 08:36:06] 5 08:36:06 Assessment/Plan 1. Cellulitis of lower extremity, unspecified laterality (L03.119: Cellulitis of unspecified part of limb) Redness has improved some however swelling is still a +3. I am concerned that this is more of a vascular issue than a cellulitis issue. Will try another dose of antibiotics and try Bactrim at this time. Continue on the Lasix and the potassium to try to help with the swelling. Encouraged wrapping and elevating of the leg. 2. Essential hypertension (I10: Essential (primary) hypertension) Well-controlled even with Lasix. 3. BMI 35.0-35.9,adult (Z68.35: Body mass index [BMI] 35.0-35.9, adult) BMI education added 4. Exogenous obesity (E66.09: Other obesity due to excess calories) Diet and exercise advised 5. Former smoker (Z87.891: Personal history of nicotine dependence) Please continue not to smoke. 6. Anxiety (F41.9: Anxiety disorder, unspecified) Orders: buPROPion, See Instructions, TAKE 1 TABLET BY MOUTH EVERY DAY, # 90 tab(s), Refills(s) 0, Pharmacy: [facility]/pharmacy #[id number], 180, cm, 02/05/24 8:29:00 EST, Height/Length Dosing, 114.2, kg, 02/05/24 8:29:00 EST, Weight Dosing furosemide, 40 mg = 1 tab(s), Oral, Daily, # 5 tab(s), Refills(s) 0, [id number], cm, 02/05/24 8:29:00 EST, Height/Length Dosing, 114.2, kg, 02/05/24 8:29:00 EST, Weight Dosing potassium chloride, 20 mEq = 1 tab(s), Oral, BID, # 5 tab(s), Refills(s) 0, [id number] 180, cm, 02/05/24 8:29:00 EST, Height/Length Dosing, 114.2, kg, 02/05/24 8:29:00 EST, Weight Dosing sulfamethoxazole-t rimethoprim, 1 tab(s), Oral, BID, 20 tab(s), [facility]ill(s) 0[id number], cm, 02/05/24 8:29:00 EST, Height/Length Dosing, 114.2, kg, 02/05/24 8:29:00 EST, Weight Dosing Well-controlled. Patient needs refill. Follow-up No qualifying data available Problem List/Past Medical History Ongoing Anemia Anxiety 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 Contusion COVID-19 Essential hypertension Fatigue Kidney stones Macrocytosis Obesity [...] Inguinal hernia. Medications amitriptyline 25 mg Tab, See Instructions, 5 refills amLODIPine 5 mg Tab, 5 mg= 1 tab(s), Oral, Daily, 1 refills Bactrim D.S. 800 mg-160 mg Tab, 1 tab(s), Oral, BID bisoprolol-hydroch lorothiazide 10 mg-6.25 mg Tab, 1 tab(s), Oral, Daily, 1 refills buPROPion 300 mg/24 hours ER Tab, See Instructions cetirizine 10 mg Tab, See Instructions, 4 refills diclofenac, 75 mg, Oral, BID fluticasone Nasal 0.05 mg/inh [place], See Instructions gabapentin 300 mg Cap, See Instructions ipratropium Nasal 0.03% [place], See Instructions, Not taking Lasix 40 mg Tab, 40 mg= 1 tab(s), Oral, Daily Oyster Shell Calcium with Vitamin D 500 mg-200 intl units oral tablet, See Instructions Potassium Chloride (Eqv-K-Tab) 20 mEq oral tablet, extended release, 20 mEq= 1 tab(s), Oral, BID Taltz Autoinjector 80 mg/mL subcutaneous solution, SubCutaneous, q4wk tamsulosin 0.4 mg Cap, 0.4 mg= 1 cap(s), Oral, BID, 11 refills tizanidine, See Instructions Allergies morphine (Unknown) Social History Alcohol Never., 01/28/2024 Home/Environment Lives with Alone., 0 (more content not included)... [facility] Comment on above: Result Comment: Elec tronically Signed By: Rodrigo Brink MD\.br\Date and Time Signed: 02/05/24 08:46 EST Other Comment: Kelsy peres Attachment [id number] Can be viewed in source systemMissing Attachment [id number] Can be viewed in source systemMissing Attachment [id number] Can be viewed in source systemMissing Attachment [id number] Can be viewed in source system Ambulatory Visit Summaryon 1 Ambulatory Visit Summary Ambulatory Visit Summary GLENDA BUCKLEY :1965 Visit Date:01/28/2024 Ambulatory Visit Instructions Your Diagnosis BMI 35.0-35.9,adult Exogenous obesity Former smoker Cellulitis, unspecified Your Care Team Attending Physician - Rodrigo [...] oral tablet) cetirizine (cetirizine 10 mg Tab) clindamycin diclofenac fluticasone nasal (fluticasone Nasal 0.05 mg/inh [place]) gabapentin (gabapentin 300 mg Cap) ipratropium nasal (ipratropium Nasal 0.03% [place]) ixekizumab (Taltz Autoinjector 80 mg/mL subcutaneous solution) tamsulosin (tamsulosin 0.4 mg Cap) tizanidine Procedures Performed Appendectomy, CABG (Coronary artery bypass grafting) planned, Inguinal hernia. Discharge Vitals Temperature (Oral) 36.6 ???C Heart Rate (Peripheral) 76 Respiratory Rate 16 Blood Pressure 124/80 Height 180 cm Height 71 in Weight 113.4 kg Weight 249.48 lb BMI 35 What to do next Scheduled Follow-Up Appointments Sunday 8:30 AM EST With: Rodrigo Brink MD Where: [address] [address]23 10:00 AM EST With: Rodrigo Brink MD Where: [address] [address]- Medications What How Much When Instructions Unchanged amitriptyline (amitriptyline 25 mg Tab) See instructions TAKE 2 TABLETS BY MOUTH AT BEDTIME Unchanged amlodipine (amLODIPine 5 mg Tab) 1 Tablets By Mouth Every day Unchanged bisoprolol-hydroch lorothiazide (bisoprolol-hydroc hlorothiazide 10 mg-6.25 mg Tab) 1 Tablets By Mouth Every day Unchanged buPROPion (buPROPion 300 mg/ 24 hours ER Tab) See instructions TAKE 1 TABLET BY MOUTH EVERY DAY Unchanged calcium-vitamin D (Oyster Shell Calcium with Vitamin D 500 mg-200 intl units oral tablet) See instructions TAKE 1 TABLET BY MOUTH TWICE A DAY Unchanged cetirizine (cetirizine 10 mg Tab) See instructions TAKE 1 TABLET BY MOUTH EVERY DAY Unchanged clindamycin 300 Milligram By Mouth Every 6 hours Duration: 10 Days [facility] DISCHARGE Unchanged diclofenac 75 Milligram By Mouth 2 times a day Unchanged fluticasone nasal (fluticasone Nasal 0.05 mg/ inh [place]) See instructions SPRAY 1 SPRAY INTO EACH NOSTRIL EVERY DAY Unchanged gabapentin (gabapentin 300 mg Cap) See instructions Take 2 orally in the am, one in the afternoon and one at bedtime Unchanged ipratropium nasal (ipratropium Nasal 0.03% [place]) See instructions USE 2 SPRAYS IN EACH NOSTRIL 3 TIMES DAILY Unchanged ixekizumab (Taltz Autoinjector 80 mg/ mL subcutaneous solution) Subcutaneous Every 4 weeks Unchanged tamsulosin (tamsulosin 0.4 mg Cap) 1 Capsules By Mouth 2 times a day Unchanged tizanidine See instructions Take 1 tablet in the am and take 2 tablets in the evening Allergies morphine (Unknown) Problems Ongoing - Any problem that you are currently receiving treatment for. Acute URI Allergic rhinitis Anemia Anxiety 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 Contusion COVID-19 Essential hypertension Eustachian tube dysfunction Fatigue Kidney stones Macrocytosis Obesity due to excess calories Psoriasis arthropathica Screening PSA (prostate specific antigen) Sleep disorder Spasm of back muscles Stage 3a chronic kidney disease (CKD) Syncope Vitamin D deficiency Historical - Any problem that you are no longer receiving treatment for. COPD (Chronic Obstructive Pulmonary Disease) Assessment Test scale HTN - Hypertension Nephrolithiasis Psoriasis Psoriatic arthritis Patient Survey You may receive a survey via text or e-mail asking about your office visit. Please share your experience with us by completing your survey. We appreciate your feedback and thank you for choosing us for your care. [facility] Family Medicine Office/Clini c Noteon 01-28-2024 Family Medicine Office/Clinic Note Family Medicine Office/Clinic Note Chief Complaint Bilateral leg swelling and redness HPI Staff Glenda is a 58 year old male presenting for Hospital follow up Hospital: [facility] Admission date: 01/14/24 Discharge date: 01/15/24 Symptoms the patient presented with: pain, swelling and erythema left lower leg Dxed with sepsis and HIRAL, cellulitis, had fallen and had a couple sore spots Current concerns: completed the daily antibiotics and the one that's every 6 hours still have as he's missed some doses. Still has swelling and pain in left leg but redness is getting better. History of Present Illness The patient is a 58-year-old male presenting with bilateral lower extremity edema and erythema. He was admitted to the hospital approximately two weeks ago due to significant leg swelling, primarily observed in one leg, and redness. During his hospitalization, he was treated with intravenous antibiotics for five days and was evaluated for deep vein thrombosis (DVT), which was not detected. Since discharge, he has been experiencing persistent swelling and some remaining erythema. The patient reports a history of a fall contributing to the current condition, resulting in a cut on his leg. He has been working on his feet for extended periods, approximately eight hours per day, which has exacerbated the swelling. He has been prescribed oral antibiotics, specifically Keflex, to continue the treatment. Review of Systems PHQ Score Initial Depression Screen Score: 5 SCORE Detailed Depression Screen Score: 3 Total Depression Screen Score: 8 Physical Exam Vitals & Measurements T: 36.6 ???C(Oral) HR: 76(Peripheral) RR: 16 BP: 124/80 SpO2: 99% HT: 71 in HT: 180 cm WT: 113.4 kg WT: 249.48 lb BMI: 35 General: alert, no acute distress ENMT: oral mucosa moist Cardiovascular: Regular rate and rhythm, normal peripheral perfusion Respiratory: Lungs clear to auscultation, respirations non labored Extremities: swelling noted, pitting edema present, cut observed from fall Neurological: oriented x 4, level of consciousness appropriate for age, CN II-XII intact, motor strength equal & normal bilaterally, speech normal Abdomen: Soft, Non-tender, Non-distended, + Bowel sounds Please see clinical media for pictures Assessment/Plan 1. Cellulitis, unspecified (L03.90) Prescribe diuretic therapy with Lasix to reduce fluid retention. Recommend continued antibiotic therapy with Keflex as prescribed. Advise use of an Kristie wrap for support and to aid in reducing swelling, ensuring it is applied correctly without being overly tight. Recommend limiting time spent on feet and allow for rest periods. Follow up will be essential to reassess the condition and evaluate the effectiveness of treatment in one week. 2. HIRAL (acute kidney injury) (N17.9: Acute kidney failure, unspecified) Will check next week after 5 doses of Lasix. 3. Essential hypertension (I10: Essential (primary) hypertension) Blood pressure is within normal limits. Reviewed to make sure the patient could tolerate Lasix. 4. BMI 35.0-35.9,adult (Z68.35: Body mass index [BMI] 35.0-35.9, adult) Continue to monitor weight. Encourage lifestyle modifications focusing on diet and exercise to assist with weight reduction. Ordered: Body Mass Index (BMI) documented 3008F Current tobacco non-user 1036F Depression Screening Negative 3352F Influenza immunization administered or previously received 4274F Most recent diastolic blood pressure 80-89 mm Hg 3079F Systolic BP <130 mm Hg (Most Recent) 3074F 5. Exogenous obesity (E66.09: Other obesity due to excess calories) Emphasize the importance of caloric intake monitoring and regular physical activity. Consider further nutritional counseling to support weight reduction goals. Ordered: Body Mass Index (BMI) documented 3008F Current tobacco non-user 1036F Depression Screening Negative 3352F Influenza immunization administered or previously received 4274F Most recent diastolic blood pressure 80-89 mm Hg 3079F Systolic BP <130 mm Hg (Most Recent) 3074F 6. Former smoker (Z87.891: Personal history of nicotine dependence) Discuss ongoing avoidance of tobacco use and congratulate on continued abstinence. Offer support and resources if needed to prevent relapse. Ordered: Body Mass Index (BMI) documented 3008F Current tobacco non-user 1036F Depression Screening Negative 3352F Influenza immunization administered or previously received 4274F Most recent diastolic blood pressure 80-89 mm Hg 3079F Systolic BP <130 mm Hg (Most Recent) 3074F Orders: furosemide, 40 mg = 1 tab(s), Oral, Daily, X 5 day(s), # 5 tab(s), Refills(s) 0, Pharmacy: [facility]/pharmacy #[id number], 180, cm, 01/28/24 8:01:00 EDT, Height/Length Dosing, 113.4, kg, 01/28/24 8:01:00 EDT, Weight Dosing potassium chloride, 20 mEq = 1 tab(s), Oral, Daily, X 5 day(s), # 5 tab(s), Refills(s) 0, Pharmacy: [facility]/pharmacy #[id number], 180, cm, 01/28/24 8:01:00 EDT, Height/Length Dosing, 113.4 (more content not included)... [facility] Comment on above: Result Comment: Elec tronically Signed By: Murali MASON, Rodrigo Manning.br\Date and Time Signed: 01/28/24 08:25 EDT Population Health 01-18-20 Population Health Population Health Case Information Case Priority: None Programs: -- Referral Source: Character Impersonator Referral Reason: Care coordination Case Type: High Risk Adult Risk Score: -- Case Status: Enrolled (January 18, 2024) Date Assigned: January 17, 2024 Assigned By: Ray Berg Date Enrolled: January 18, 2024 Assigned Primary Personnel: Ray Berg Assigned Secondary Personnel: -- Case Physician: Rodrigo Brink MD Problems Ongoing Acute URI Allergic rhinitis Anemia Anxiety 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 Contusion COVID-19 [...] (Coronary artery bypass grafting) planned, Inguinal hernia. Home Medications amitriptyline 25 mg Tab, See Instructions, 5 refills amLODIPine 5 mg Tab, 5 mg= 1 tab(s), Oral, Daily, 1 refills bisoprolol-hydroch lorothiazide 10 mg-6.25 mg Tab, 1 tab(s), Oral, Daily, 1 refills buPROPion 300 mg/24 hours ER Tab, See Instructions cefdinir, 600 mg, Oral, Daily cetirizine 10 mg Tab, See Instructions, 4 refills clindamycin, 300 mg, Oral, q6hr diclofenac, 75 mg, Oral, BID Flonase Allergy Relief 50 mcg/inh nasal spray, 1 spray(s), Nasal, Daily gabapentin 300 mg Cap, See Instructions ipratropium Nasal 0.03% [place], See Instructions Oyster Shell Calcium with Vitamin D 500 mg-200 intl units oral tablet, See Instructions Taltz Autoinjector 80 mg/mL subcutaneous solution, SubCutaneous, q4wk tamsulosin 0.4 mg Cap, 0.4 mg= 1 cap(s), Oral, BID, 11 refills tizanidine, See Instructions Allergies morphine (Unknown) Social History Home/Environment Lives with Alone., 06/15/2022 Tobacco Former smoker, quit more than 30 days ago Tobacco Use:. Never Smokeless Tobacco Use:. Cigarettes, Household tobacco concerns: No. Yes, 12/25/2023 Family History Family history is unknown Screenings and Assessments 01/18/24 09:30:00 Result Name Value Comment Phone Call Monitoring Consent Agreed to continue call Phone Verification Patient Information Full name, street address and date of verified CM Program Enrollment Provides verbal consent for enrollment Goals and Interventions Care Plan Progress Note Admit Date: 01/14/2024 [facility] Date of Discharge: 01/17/24 Follow-up appointment scheduled? yes, [facility] 01/28/24 at 0745 with PCP Did you understand your discharge instructions? yes Are you able to follow them? yes Did you receive new medications? yes, cefdinir 300 mg- take 600 mg daily x 10 days, clindamycin 300 mg q 6 hr x 10 days Have you filled the Rx's? yes Are you taking them as prescribed? yes Are you having difficulty eating or swallowing your pills? no Are you having any stomach upset, diarrhea or constipation? none, 'I have normal bowels' How are you sleeping? good Are you having any pain? yes, left leg, worse when up walking around or standing in one position (like when voiding), rates 9/10 at worst Do you have everything you need at home to care for yourself? yes, but would like RX for walker (message to PCP) Do you have Home Health? no Called patient for initial [facility] call. Readmission risk not available. Reviewed discharge instructions and dx of: HIRAL, sepsis, cellulitis, fibromyalgia, psoriatic arthritis, HTN. Reviewed purpose and side effects of new medications with patient. US of left extremity on 01/14/2024, negative for DVT. XR left tibia/fibula completed 01/14/2024, negative for frx. Medications reconciled with patient list, EHR, and d/c summary. Patient states he is doing 'so-so.' Patient reports he fell last weekend which resulted in the ED visit. Reports he has continued pain in left leg that worsens when up on his feet. Patient notes pain as a throbbing/ stabbing type pain from knee to foot. Elevation and rest encouraged. Patient notes some swelling still remains, but slightly better. Patient reports LLE redness has improved. Patient denies any weeping to bilateral LE. Patient notes he has a couple sores that are scabbed on the outside of his LLE, resulted from his recent fall; one small area below know on left side and the other near the area of his ankle. Patient has been monitoring areas and is aware of symptoms to report to provider. Patient denies any drainage. Patient denies any fever or chills. Patient deneis any urinary system issues. Patient denies any falls since d/c. Notes d/t the LLE pain he feels he'd benefit fro (more content not included)... [facility] Ambulatory Visit Summaryon 0 12-25-2023 Ambulatory Visit [...] mg Cap) ipratropium nasal (ipratropium Nasal 0.03% [place]) ixekizumab (Taltz Autoinjector 80 mg/mL subcutaneous solution) [...] AM EDT With: Rodrigo Brink MD Where: [address] [address] 10:00 AM EST With: Rodrigo Brink MD Where: [address] [address] Medications What How Much When Why Instructions New amoxicillin (amoxicillin 500 mg Cap) 1 Capsules By Mouth Every 12 hours Acute URI Pickup at [facility] #[id number] New fluticasone nasal (Flonase Allergy Relief 50 mcg/ inh nasal spray) 1 Sprays Nasal Inhalation Every day Pickup at [facility]/pharmacy #[id number] Unchanged amitriptyline (amitriptyline 25 mg Tab) See [...] concerns Unchanged ipratropium nasal (ipratropium Nasal 0.03% [place]) See instructions USE 2 SPRAYS IN EACH [...] concerns Pharmacy Information [facility] #[id number]: [address], [place] [phone] Allergies morphine (Unknown) Problems Ongoing - Any problem that you are currently receiving treatment for. Acute URI Allergic rhinitis Anemia Anxiety 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 Contusion COVID-19 Essential hypertension Eustachian tube dysfunction Fatigue Kidney stones Macrocytosis Obesity due to excess calories Psoriasis arthropathica Screening PSA (prostate specific antigen) Sleep disorder Spasm of back muscles Stage 3a chronic kidney disease (CKD) Syncope Vitamin D deficiency Historical - (more content not included)... [facility] Family Medicine Office/Clini c Noteon 12-25-2023 Family [...] q12hr, # 20 cap(s), Refills(s) 0, Pharmacy: [facility]/pharmacy #[id number], 180, cm, 12/25/23 14:44:00 EDT, Height/Length Dosing, 116.9, kg, 12/25/23 14:44:00 EDT, Weight Dosing Orders: fluticasone nasal, = 1 spray(s), Nasal, Daily, # 16 gm, Refills(s) 0, Pharmacy: [facility]/pharmacy #[id number], 180, cm, 12/25/23 14:44:00 EDT, Height/Length Dosing, 116.9, kg, 12/25/23 14:44:00 EDT, Weight Dosing Follow-up No qualifying data available Problem List/Past Medical History Ongoing Acute URI Allergic rhinitis Anemia Anxiety 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 Contusion COVID-19 [...] mg Cap, See Instructions ipratropium Nasal 0.03% [place], See Instructions Oyster Shell Calcium with Vitamin [...] is, acel/tetanus adult 11/15/2019 Recorded [facility] Comment on above: Result Comment: Elec tronically Signed By: Murali MASON, Rodrigo Manning.harsh\Date and Time Signed: 12/25/23 15:01 EDT Ambulatory [...] Brink MD Referring Physician - Rodrigo Brink MD This Is Your Medications List tamsulosin (tamsulosin [...] mg Cap) ipratropium nasal (ipratropium Nasal 0.03% [place]) ixekizumab (Taltz Autoinjector 80 mg/mL subcutaneous solution) [...] AM EST With: Rodrigo Brink MD Where: [facility] [place] [facility] Ambulatory Visit Summaryon 0 09-20-2023 [...] mg Cap) ipratropium nasal (ipratropium Nasal 0.03% [place]) ixekizumab (Taltz Autoinjector 80 mg/mL subcutaneous solution) [...] Follow-Up Appointments Sunday 1:00 PM EDT With: BABATUNDE MASON, Yusuf Cortés Where: [facility] [place] [id number]- \.br\ Medications\.br\ What How Much When Instructions\.br\ Changed calcium-vitamin D (Oyster Shell Calcium with Vitamin D 500 mg-200 intl units oral tablet) 1 Tablets By Mouth 2 times a day Pickup at [facility]/pharmacy #[id number]\.br\ Unchanged amitriptyline (amitriptyline 25 mg Tab) See instructions TAKE 2 TABLETS BY MOUTH AT BEDTIME Pickup at [facility]/pharmacy #[id number]\.br\ Unchanged amlodipine (amLODIPine 5 mg Tab) 1 Tablets By Mouth Every day Pickup at [facility]/pharmacy #[id number]\.br\ Unchanged bisoprolol-hydroc hlorothiazide (bisoprolol-hydro chlorothiazide 10 mg-6.25 mg Tab) 1 Tablets By Mouth Every day Pickup at [facility]/pharmacy #[id number]\.br\ Unchanged buPROPion (buPROPion 300 mg/ [...] \.br\ Unchanged ipratropium nasal (ipratropium Nasal 0.03% [place]) See instructions USE 2 SPRAYS IN EACH [...] if questions or concerns \.br\ Pharmacy Information\.br\ [id number]: [address], [place] [phone]\.br\ Allergies\.br\ morphine (Unknown)\.br\ Problems\.br\ Ongoing - Any problem that you are currently receiving treatment for.\.br\ Allergic rhinitis\.br\ Anemia\.br\ Anxiety\.br\ 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\.br\ Contusion\.br\ COVID-19\.br\ [...] for choosing us for your care.\.br\ \.br\ [facility] Medicine Office/Clini c Noteon 09-20-2023 Family Medicine [...] BEDTIME, # 60 tab(s), Refills(s) 5, Pharmacy: [facility]/pharmacy #[id number], 180.3, cm, 09/20/23 9:40:00 EDT, Height/Length Dosing, 113.4, kg, 09/20/23 9:40:00 EDT, Weight Dosing amlodipine, 5 mg = 1 tab(s), Oral, Daily, # 90 tab(s), Refills(s) 1, Pharmacy: [facility]/pharmacy #[id number], 180.3, cm, 09/20/23 9:40:00 EDT, Height/Length Dosing, 113.4, kg, 09/20/23 9:40:00 EDT, Weight Dosing bisoprolol-hydroch lorothiazide, 1 tab(s), Oral, Daily, 90 tab(s), Refill(s) 1, [facility]/pharmacy #[id number], 180.3, cm, 09/20/23 9:40:00 EDT, Height/Length Dosing, 113.4, kg, 09/20/23 9:40:00 EDT, Weight Dosing calcium-vitamin D, 1 tab(s), Oral, BID, 90 tab(s), Refill(s) 1, [facility]/pharmacy #[id number], 180.3, cm, 09/20/23 9:40:00 EDT, Height/Length Dosing, 113.4, kg, 09/20/23 9:40:00 EDT, Weight Dosing Follow-up No qualifying data available Patient Education BMI for Adults Problem List/Past Medical History Ongoing Allergic rhinitis Anemia Anxiety 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 Normal [facility] Comment on above: Result Comment: Elec tronically Signed By: Murali MASON, Rodrigo Manning.br\Date and Time Signed: 09/20/23 09:59 EDT Patient [...] numbers. This can be done either in [place] ([place] or metric measurements. Note that charts and online BMI calculators are available to help you find your BMI quickly and easily without having to do these calculations yourself. To calculate your BMI in [place] ([place] measurements: 1. Measure your weight in [...] for Disease Control and Prevention: www.cdc.gov ? [place] Heart Association: www.heart.org ? National Heart, Lung, and Blood [place]: www.nhlbi.nih.gov Summary ? Body mass index (BMI) is a number that is calculated from a person's weight and height. ? BMI may help estimate how much of a person's weight is composed of fat. BMI can help identify those who may be at higher risk for certain medical problems. ? BMI can be measured using [place] measurements or metric measurements. ? BMI charts are used to identify whether you are underweight, normal weight, overweight, or obese. This information is not intended to replace advice given to you by your health care provider. Make sure you discuss any questions you have with your health care provider. Document Revised: 12/10/2019 Document Reviewed: 10/17/2019 [employer] Patient Education ? 2022 [employer] Normal [facility] Ambulatory Visit Summaryon 0 08-16-2023 [...] mg Tab) ipratropium nasal (ipratropium Nasal 0.03% [place]) Contact prescribing physician if questions or concerns amitriptyline (amitriptyline 25 mg Tab) bisoprolol-hydroch lorothiazide (bisoprolol-hydroc hlorothiazide 10 mg-6.25 mg Tab) cyclobenzaprine (cyclobenzaprine 10 mg Tab) gabapentin (gabapentin 300 mg Cap) ixekizumab (Taltz Autoinjector 80 mg/mL subcutaneous solution) sildenafil (sildenafil 25 mg Tab) [Image Removed: STOP]Stop taking these medications fluticasone nasal (fluticasone Nasal 0.05 mg/inh [place]) Procedures Performed Appendectomy, CABG (Coronary artery bypass grafting) planned, Inguinal hernia. Discharge Vitals Temperature (Temporal Artery) 37.3 ?C Heart Rate (Peripheral) 74 Respiratory Rate 16 Blood Pressure 124/76 Height 180.3 cm Height 71 in Weight 108.4 kg Weight 238.48 lb BMI 33.35 What to do next Scheduled Follow-Up Appointments 2023 9:30 AM EDT With: Rodrigo Brink MD Where: [facility] [address] [place] [id number]- \.br\ Medications\.br\ What How Much When Instructions\.br\ Changed buPROPion (buPROPion 300 mg/ 24 hours ER Tab) 1 Tablets By Mouth Every 24 hours Pickup at [facility]/pharmacy #[id number]\.br\ Unchanged amlodipine (amLODIPine 5 mg Tab) 1 Tablets By Mouth Every day Pickup at [facility]/pharmacy #[id number]\.br\ Unchanged cetirizine (cetirizine 10 mg Tab) See instructions TAKE 1 TABLET BY MOUTH EVERY DAY Pickup at [facility]/pharmacy #6177\.br\ Unchanged ipratropium nasal (ipratropium Nasal 0.03% [place]) See instructions USE 2 SPRAYS IN EACH NOSTRIL 3 TIMES A DAY Pickup at [facility]/pharmacy #6177\.br\ Unchanged amitriptyline (amitriptyline 25 mg [...] if questions or concerns \.br\ Pharmacy Information\.br\ [facility]/pharmacy #[id number]: [address], [place] [phone]\.br\ \.br\ What How Much When Comments\.br\ Stop Taking fluticasone nasal (fluticasone Nasal 0.05 mg/ inh [place]) See instructions SPRAY 2 SPRAYS INTO EACH NOSTRIL DAILY \.br\ Allergies\.br\ morphine (Unknown)\.br\ Problems\.br\ Ongoing - Any problem that you are currently receiving treatment for.\.br\ Allergic rhinitis\.br\ Anemia\.br\ Anxiety\.br\ 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\.br\ Contusion\.br\ COVID-19\.br\ [...] numbers. This can be done either in [place] ([place] or metric measurements. Note that charts and online BMI calculators are available to help you find your BMI quickly and easily without having to do these calculations yourself.\.br\ To calculate your BMI in [place] ([place] measurements:\.br \ \.br\ 1. \.br\ Measure [...] Disease Control and Prevention: www.cdc.gov\.br\ ? \.br\ [place] Heart Association: www.heart.org\.br \ ? \.br\ National Heart, Lung, and Blood [place]: www.nhlbi.nih.gov \.br\ Summary\.br\ ? \.br\ Body mass index (BMI) is a number that is calculated from a person's weight and height.\.br\ ? \.br\ BMI may help estimate how much of a person's weight is composed of fat. BMI can help identify those who may be at higher risk for certain medical problems.\.br\ ? \.br\ BMI can be measured using [place] measurements or metric measurements.\.br \ ? \.br\ BMI charts are used to identify whether you are underweight, normal weight, overweight, or obese.\.br\ This information is not intended to replace advice given to you by your health care provider. Make sure you discuss any questions you have with [facility] Family Medicine Office/Page Maguire 08-16-2023 Family Medicine [...] Daily, # 90 tab(s), Refills(s) 1, [id number] 180.3, cm, 08/16/23 13:16:00 EDT, Height/Length Dosing, 108.4, kg, 08/16/23 13:16:00 EDT, Weight Dosing buPROPion, 300 mg = 1 tab(s), Oral, q24hr, # 90 tab(s), Refills(s) 1, [id number], 180.3, cm, 08/16/23 13:16:00 EDT, Height/Length Dosing, 108.4, kg, 08/16/23 13:16:00 EDT, Weight Dosing cetirizine, See Instructions, TAKE 1 TABLET BY MOUTH EVERY DAY, # 90 tab(s), Refills(s) 1, [id number], 180.3, cm, 08/16/23 13:16:00 EDT, Height/Length Dosing, 108.4, kg, 08/16/23 13:16:00 EDT, Weight Dosing gabapentin, See Instructions, Take 2 orally in the am, one in the afternoon and one at bedtime, # 60 cap(s), Refills(s) 2, Pharmacy: [facility] [id number], 180.3, cm, 03/05/23 14:04:00 EST, Height/Length Dosing, 102, kg, 03/05/23 14:04:00 EST, Weight Dosing ipratropium nasal, See Instructions, 30 Unspecified/Unknow n, Refill(s) 0, USE 2 SPRAYS IN EACH NOSTRIL 3 TIMES A DAY, [facility] 180.3, cm, 08/16/23 13:16:00 EDT, Height/Length Dosing, 108.4, kg, 08/16/23 13:16:00 EDT, Weight Dosing Follow-up No qualifying data available Patient Education BMI for Adults Problem List/Past Medical History Ongoing Allergic rhinitis Anemia Anxiety 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 Normal [facility] Comment on above: Result Comment: Elec tronically Signed By: Murali MASON, Rodrigo Chiu\.br\Date and Time Signed: 08/16/23 13:45 EDT Patient Educationon 08-16-19 24 Patient Education Nutrition BMI for Adults What [...] numbers. This can be done either in [place] ([place] or metric measurements. Note that charts and online BMI calculators are available to help you find your BMI quickly and easily without having to do these calculations yourself. To calculate your BMI in [place] ([place] measurements: 1. Measure your weight in [...] for Disease Control and Prevention: www.cdc.gov ? [place] Heart Association: www.heart.org ? National Heart, Lung, and Blood [place]: www.nhlbi.nih.gov Summary ? Body mass index (BMI) is a number that is calculated from a person's weight and height. ? BMI may help estimate how much of a person's weight is composed of fat. BMI can help identify those who may be at higher risk for certain medical problems. ? BMI can be measured using [place] measurements or metric measurements. ? BMI charts are used to identify whether you are underweight, normal weight, overweight, or obese. This information is not intended to replace advice given to you by your health care provider. Make sure you discuss any questions you have with your health care provider. Document Revised: 12/10/2019 Document Reviewed: 10/17/2019 [employer] Patient Education ? 2022 [employer]. [facility] Consultation Noteon 08-06-19 Consultation Note [id number]#1.00TIFF [facility] Monitor Recordon 08-02-2023 Monitor Record [id number]#1.00TIFF [facility] Lab Reportson 07-20-2023 Lab Reports [id number]#1.00TIFF [facility] Lab Reports [id number]#1.00TIFF [facility] Consultation Noteon 07-18-19 Consultation Note [id number]#1.00TIFF [facility] Operative Reporton 4 Operative Report [id number]#1.00TIFF [facility] Consent for Treatmenton Consent for Treatment [id number] [facility] RAD - MRI Reporton 4 RAD - MRI Report [id number]#1.00TIFF [facility] Insurance Correspondenceon 0 05-25-2023 Insurance Correspondence [id number]#1.00TIFF [facility] Ambulatory Visit Summaryon 0 05-17-2023 Ambulatory Visit Summary GLENDA BUCKLEY :1965 Visit Date:05/17/2023 Ambulatory Visit Instructions Your Diagnosis Essential hypertension Anxiety 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 Psoriasis arthropathica Stage 3a chronic kidney disease (CKD) Sleep disorder Syncope BMI 32.0-32.9,adult Class 1 obesity due to excess calories in adult Former smoker Your Care Team Attending Physician - Rodrigo Brink MD Primary Care Physician - Rodrigo Brikn MD This Is Your Medications List acetaminophen-hydr ocodone (acetaminophen-hyd rocodone 325 mg-5 mg oral tablet) amitriptyline (amitriptyline 25 mg Tab) amlodipine (amLODIPine 5 mg Tab) bisoprolol-hydroch lorothiazide (bisoprolol-hydroc hlorothiazide 10 mg-6.25 mg Tab) buPROPion (buPROPion 150 mg/24 hours XL Tab) cetirizine (cetirizine 10 mg Tab) cyclobenzaprine (cyclobenzaprine 10 mg Tab) fluticasone nasal (fluticasone Nasal 0.05 mg/inh [place]) gabapentin (gabapentin 300 mg Cap) ipratropium nasal (ipratropium Nasal 0.03% [place]) ixekizumab (Taltz Autoinjector 80 mg/mL subcutaneous solution) [...] Appointments July. 2023 1:15 PM EDT With: Rodrigo Brink MD Where: [facility] Family [facility] [place] Normal [facility] Family Medicine Office/Clini c Noteon 05-17-2023 Family [...] Recent) 3074F 3. 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 (I25.119: Atherosclerotic heart disease of chene[place] coronary artery with unspecified angina pectoris) - [...] 1035F Depressio (more content not included)... Normal [facility] Comment on above: Result [...] numbers. This can be done either in [place] ([place] or metric measurements. Note that charts and online BMI calculators are available to help you find your BMI quickly and easily without having to do these calculations yourself. To calculate your BMI in [place] ([place] measurements: 1. Measure your weight in [...] for Disease Control and Prevention: www.cdc.gov ? [place] Heart Association: www.heart.org ? National Heart, Lung, and Blood [place]: www.nhlbi.nih.gov Summary ? Body mass index (BMI) is a number that is calculated from a person's weight and height. ? BMI may help estimate how much of a person's weight is composed of fat. BMI can help identify those who may be at higher risk for certain medical problems. ? BMI can be measured using [place] measurements or metric measurements. ? BMI charts are used to identify whether you are underweight, normal weight, overweight, or obese. This information is not intended to replace advice given to you by your health care provider. Make sure you discuss any questions you have with your health care provider. Document Revised: 12/10/2019 Document Reviewed: 10/17/2019 [email or web address] Patient Education ? 2022 [employer] Normal [facility] EMG Electromyographyon 05-15 EMG Electromyography [id number]#1.00TIFF [facility] Consultation Noteon 03-21-20 Consultation Note [id number]#1.00TIFF [facility] RAD - MISCon 03-21-2023 RAD - MISC [id number]#1.00TIFF [facility] Ambulatory Visit Summaryon 1 05-13-2022 Ambulatory Visit Summary GLENDA BUCKLEY :1965 Visit Date:03/12/2023 Ambulatory Visit Instructions Your Diagnosis COVID-19 Your Care Team Attending Physician - Rodrigo Brink MD Primary Care Physician - Rodrigo Brink MD. [...] Tab) fluticasone nasal (fluticasone Nasal 0.05 mg/inh [place]) gabapentin (gabapentin 300 mg Cap) ipratropium nasal (ipratropium Nasal 0.03% [place]) ixekizumab (Taltz Autoinjector 80 mg/mL subcutaneous solution) sildenafil (sildenafil 25 mg Tab) Procedures Performed Appendectomy, CABG (Coronary artery bypass grafting) planned, Inguinal hernia. What to do next Scheduled Follow-Up Appointments Sunday 9:00 AM EST With: BABATUNDE MASON, Yusuf Cortés Where: [facility] Normal [address] [place] [address] \.br\ Medications\.br\ What How Much When Why [...] fluticasone nasal (fluticasone Nasal 0.05 mg/ inh [place]) See instructions SPRAY 2 SPRAYS INTO EACH NOSTRIL DAILY \.br\ Unchanged gabapentin (gabapentin 300 mg Cap) See instructions TAKE 1 CAPSULE BY MOUTH TWICE A DAY \.br\ Unchanged ipratropium nasal (ipratropium Nasal 0.03% [place]) See instructions USE 2 SPRAYS IN EACH [...] rhinitis\.br\ Anemia\.br\ Anxiety\.br\ 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 [address] : 1965 To Whom It May Concern, Please excuse above patient from work. Date of Illness: From: 03.12.2023 To: 03.16.2023 May Return to Work On: 03.19.2023 Comments: Post covid symptoms Sincerely, FAUSTINO [place] [id number] Normal [facility] Provider Letteron 03-06-2023 Provider Letter March 06, 2023 [place] [address] : 1965 To Whom It May Concern, Please excuse above patient from work. Date of Illness: From: 03.05.2023 To: 03.12.2023 May Return to Work On: 03.13.2023 Comments: Patient is off due to illness. Sincerely, Rodrigo Brink MD [place] [id number] [facility] Family Medicine Office/Clini c Noteon [...] day(s), # 6 tab(s), Refills(s) 0, Pharmacy: [facility]/pharmacy #[id number], 180.3, cm, 03/05/23 14:04:00 EST, Height/Length Dosing, 102, kg, 03/05/23 14:04:00 EST, Weight Dosing benzonatate, 200 mg = 1 cap(s), Oral, TID, X 7 day(s), # 21 cap(s), Refills(s) 0, [id number], 180.3, cm, 03/05/23 14:04:00 EST, Height/Length Dosing, 102, kg, 03/05/23 14:04:00 EST, Weight Dosing methylPREDNISolone , = 1 packet(s), Oral, As Directed, as directed on package labeling, X 6 day(s), # 21 tab(s), Refills(s) 0, [id number], 180.3, cm, 03/05/23 14:04:00 EST, Height/Length Dosing, 102, kg, 03/05/23 14:04:00 EST, Weight Dosing Body Mass Index (BMI) documented 3008F Current tobacco non-user 1036F Depression Screening Negative 3352F Influenza immunization administered or previously received 4274F Influenza Type A&B POC 94772 Most recent diastolic blood pressure <80 mm Hg 3078F Rapid COVID POC 09092 Systolic BP <130 mm Hg (Most Recent) 3074F 2. BMI 31.0-31.9,adult (Z68.31: Body mass index [BMI] 31.0-31.9, adult) - BMI education uploaded to the portal Ordered: azithromycin, = 1 packet(s), Oral, As Directed, as directed on package labeling, X 5 day(s), # 6 tab(s), Refills(s) 0, [id number], 180.3, cm, 03/05/23 14:04:00 EST, Height/Length Dosing, 102, kg, 03/05/23 14:04:00 EST, Weight Dosing benzonatate, 200 mg = 1 cap(s), Oral, TID, X 7 day(s), # 21 cap(s), Refills(s) 0, [id number], 180.3, cm, 03/05/23 14:04:00 EST, Height/Length Dosing, 102, kg, 03/05/23 14:04:00 EST, Weight Dosing methylPREDNISolone , = 1 packet(s), Oral, As Directed, as directed on package labeling, X 6 day(s), # 21 tab(s), Refills(s) 0, [id number], 180.3, cm, 03/05/23 14:04:00 EST, [...] day(s), # 6 tab(s), Refills(s) 0, [id number], 180.3, cm, 03/05/23 14:04:00 EST, Height/Length Dosing, 102, kg, 03/05/23 14:04:00 EST, Weight Dosing benzonatate, 200 mg = 1 cap(s), Oral, TID, X 7 day(s), # 21 cap(s), Refills(s) 0, [id number], 180.3, cm, 03/05/23 14:04:00 EST, Height/Length Dosing, 102, kg, 03/05/23 14:04:00 EST, Weight Dosing methylPREDNISolone , = 1 packet(s), Oral, As Directed, as directed on package labeling, X 6 day(s), # 21 tab(s), Refills(s) 0, [id number], 180.3, cm, 03/05/23 14:04:00 EST, [...] dependence) Orde (more content not included)... Normal [facility] Comment on above: Result Comment: Elec tronically Signed By: Murali MASON, Rodrigo Manning.br\Date and Time Signed: 03/05/23 14:22 EST Patient [...] numbers. This can be done either in [place] ([place] or metric measurements. Note that charts and online BMI calculators are available to help you find your BMI quickly and easily without having to do these calculations yourself. To calculate your BMI in [place] ([place] measurements: 1. Measure your weight in [...] for Disease Control and Prevention: www.cdc.gov ? [place] Heart Association: www.heart.org ? National Heart, Lung, and Blood [place]: www.nhlbi.nih.gov Summary ? Body mass index (BMI) is a number that is calculated from a person's weight and height. ? BMI may help estimate how much of a person's weight is composed of fat. BMI can help identify those who may be at higher risk for certain medical problems. ? BMI can be measured using [place] measurements or metric measurements. ? BMI charts are used to identify whether you are underweight, normal weight, overweight, or obese. This information is not intended to replace advice given to you by your health care provider. Make sure you discuss any questions you have with your health care provider. Document Revised: 12/10/2019 Document Reviewed: 10/17/2019 Elsevier Patient Education ? 2022 [employer]. Nutrition BMI for Adults What is BMI? [...] may be (more content not included)... Normal [facility] Ambulatory Visit Summaryon 1 04-17-2022 Ambulatory Visit [...] Tab) fluticasone nasal (fluticasone Nasal 0.05 mg/inh [place]-Of-The-World) gabapentin (gabapentin 300 mg Cap) ipratropium nasal (ipratropium Nasal 0.03% [place]The-[place]) ixekizumab (Taltz Autoinjector 80 mg/mL subcutaneous solution) [...] MASON, Yusuf Cortés Where: [facility] [address] [address]- \.br\ Medications\.br\ What How Much When Instructions\.br\ [...] fluticasone nasal (fluticasone Nasal 0.05 mg/ inh [place]The-World) See instructions SPRAY 2 SPRAYS INTO EACH NOSTRIL DAILY \.br\ Unchanged gabapentin (gabapentin 300 mg Cap) See instructions TAKE 1 CAPSULE BY MOUTH TWICE A DAY \.br\ Unchanged ipratropium nasal (ipratropium Nasal 0.03% [place]) See instructions USE 2 SPRAYS IN EACH [...] rhinitis\.br\ Anemia\.br\ Anxiety\.br\ 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\.br\ Contusion\.br\ Essential [...] choosing us for your care.\.br\ \.br\ [facility] Medicine Office/Clini c Noteon 02-15-2023 Family Medicine [...] DAY, # 90 tab(s), Refills(s) 0, Pharmacy: [facility]/pharmacy #[id number], 180.3, cm, 02/15/23 11:32:00 EST, Height/Length Dosing, 105.8, kg, 02/15/23 11:32:00 EST, Weight Dosing gabapentin, See Instructions, TAKE 1 CAPSULE BY MOUTH TWICE A DAY, # 180 cap(s), Refills(s) 0, [id number], 180.3, cm, 02/15/23 11:32:00 EST, Height/Length Dosing, 105.8, kg, 02/15/23 11:32:00 EST, Weight Dosing Follow-up No qualifying data available Problem List/Past Medical History Ongoing Allergic rhinitis Anemia Anxiety 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 Contusion Essential [...] mg= 1 (more content not included)... Normal [facility] Comment on above: Result Comment: Elec tronically Signed By: Murali MASON, Rodrigo Manning.br\Date and Time Signed: 02/15/23 12:29 EST CHEMISTRYOrdered By: SYSTEM SYSTEM on 10-31-2022 25-hydroxyvitamin D3 [Mass/Vol] 42.5 ng/mL Normal 30.0 - 100.0 ng/mL [facility] [place] Cholesterol [Mass/Vol] 144 mg/dL Normal 120 [...] 6.5 E9/L Normal 4.0 - 11.0 E9/L FT HemeAutoSS CBC AUTO DIFFon 07-29-2022 BASO # 0.0 103/ul Normal 0.0-0.1 [facility] Comment on above: Performed By: #### C BC #### [facility] [address] [place] [address] Dr. Roosevelt Verde Basophils/100 WBC (Bld) 0.4 % Normal 0.2-2.0 [facility] Comment on above: Performed By: #### C BC #### [facility] [address] [place] [address] Dr. Roosevelt Verde EO # 0.0 103/ul Normal 0.0-0.7 [facility] Comment on above: Performed By: #### C BC #### [facility] [address] [place] [address] Dr. Roosevelt Verde Eosinophils/100 WBC (Bld) 0.4 % Critically low 0.9-7.0 [facility] Comment on above: Performed By: #### C BC #### [facility] [address] [place] [address] Dr. Roosevelt Verde Erythrocyte distribution width (RBC) [Ratio] 13.3 % Normal 11.0-15.0 [facility] Comment on above: Performed By: #### C BC #### [facility] [address] [place] [address] Dr. Roosevelt Verde Hematocrit (Bld) [Volume fraction] 42.9 % Normal 42.0-54.0 [facility] Comment on above: Performed By: #### C BC #### [facility] [address] [place] [address] Dr. Roosevelt Verde Hemoglobin (Bld) [Mass/Vol] 13.9 g/dL Critically low 14.0-18.0 [facility] Comment on above: Performed By: #### C BC #### [facility] [address] [place] [address] Dr. Roosevelt Verde IG # 0.02 10e3/ul Normal 0.00-0.03 [facility] Comment on above: Performed By: #### C BC #### [facility] [address] [place] [address] Dr. Roosevelt Verde IG % 0.2 % Normal 0.0-0.5 [facility] Comment on above: Performed By: #### C BC #### [facility] [address] [place] [address] Dr. Roosevelt Verde LYMPH # 1.1 103/ul Critically low 1.2-3.8 [facility] Comment on above: Performed By: #### C BC #### [facility] [address] [place] [address] Dr. Roosevelt Verde Lymphocytes/100 WBC (Bld) 13.5 % Critically low 20.5-60.0 [facility] Comment on above: Performed By: #### C BC #### [facility] [address] [place] [address] Dr. Roosevelt Verde MANUAL DIFF REQ NO Normal [facility] Comment on above: Performed By: #### C BC #### [facility] [address] [place] [address] Dr. Roosevelt Verde MCH (RBC) [Entitic mass] 34.6 pg Critically high 25.9-34.0 [facility] Comment on above: Performed By: #### C BC #### [facility] [address] [place] [address] Dr. Roosevelt Verde MCHC (RBC) [Mass/Vol] 32.4 g/dL Normal 29.9-35.2 [facility] Comment on above: Performed By: #### C BC #### [facility] [address] [place] [address] Dr. Roosevelt Verde MCV (RBC) [Entitic vol] 106.7 fL Critically high 80.0-94.0 [facility] Comment on above: Performed By: #### C BC #### [facility] [address] [place] [address] Dr. Roosevelt Verde MONO # 0.6 103/ul Normal 0.3-0.8 [facility] Comment on above: Performed By: #### C BC #### [facility] [address] [place] [address] Dr. Roosevelt Verde Monocytes/100 WBC (Bld) 7.6 % Normal 1.7-12.0 [facility] Comment on above: Performed By: #### C BC #### [facility] [address] [place] [address] Dr. Roosevelt Verde NEUT # 6.3 103/ul Normal 1.4-6.5 [facility] Comment on above: Performed By: #### C BC #### [facility] [address] [place] [address] Dr. Roosevelt Verde Neutrophils/100 WBC (Bld) 77.9 % Critically high 43.0-75.0 [facility] Comment on above: Performed By: #### C BC #### [facility] [address] [place] [address] Dr. Roosevelt Verde Platelet mean volume (Bld) [Entitic vol] 9.4 fL Critically low 9.5-13.5 [facility] Comment on above: Performed By: #### C BC #### [facility] [address] [address] [address] Roosevelt Verde PLT 315 103/ul Normal 150-450 [facility] Comment on above: Performed By: #### C BC #### [facility] [address] [address] [address] Roosevelt Verde RBC 4.02 106/ul Critically low 4.70-6.10 [facility] Comment on above: Performed By: #### C BC #### [facility] [address] [address] [address] Roosevelt Verde WBC 8.1 103/ul Normal 4.0-11.0 [facility] Comment on above: Performed By: #### C BC #### [facility] [address] [place] [address] Dr. Roosevelt Verde CRPon 07-29-2022 CRP 4.4 mg/dL Critically high <=1.0 [facility] Comment on above: Performed By: #### C BC #### [facility] [address] [place] [address] Dr. Roosevelt Verde MYOGLOBINon 07-29-2022 FISH 33 ng/mL Normal 16-96 [facility] Comment on above: Performed By: #### C BC #### [facility] [address] [place] [address] Dr. Roosevelt Verde PROF 14(COMP METB)on 023 Albumin [Mass/Vol] 3.8 g/dL Normal 3.4-5.0 [facility] Comment on above: Performed By: #### C BC #### [facility] [address] [place] [address] Dr. Roosevelt Verde Albumin/Globulin [Mass ratio] 1.0 {ratio} Normal [facility] Comment on above: Performed By: #### C BC #### [facility] [address] [place] [address] Dr. Roosevelt Verde ALP [Catalytic activity/Vol] 83 U/L Normal 46-116 [facility] Comment on above: Performed By: #### C BC #### [facility] [address] [address] [address] Roosevelt Verde ALT [Catalytic activity/Vol] 36 U/L Normal 16-63 [facility] Comment on above: Performed By: #### C BC #### [facility] [address] [address] [address] Roosevelt Verde Anion gap [Moles/Vol] 11.9 mmol/L Normal [facility] Comment on above: Performed By: #### C BC #### [facility] [address] [address] [address] Roosevelt Verde AST [Catalytic activity/Vol] 13 U/L Critically low 15-37 [facility] Comment on above: Performed By: #### C BC #### [facility] [address] [address] [address] Roosevelt Verde Bilirubin [Mass/Vol] 0.6 mg/dL Normal 0.2-1.0 [facility] Comment on above: Performed By: #### C BC #### [facility] [address] [address] [address] Roosevelt Verde Calcium [Mass/Vol] 8.6 mg/dL Normal 8.5-10.1 [facility] Comment on above: Performed By: #### C BC #### [facility] [address] [address] [address] Roosevelt Verde Chloride [Moles/Vol] 106 mmol/L Normal 98-107 [facility] Comment on above: Performed By: #### C BC #### [facility] [address] [address] [address] Roosevelt Verde CO2 [Moles/Vol] 25.8 mmol/L Normal 21.0-32.0 [facility] Comment on above: Performed By: #### C BC #### [facility] [address] [address] [address] Roosevelt Verde Creatinine [Mass/Vol] 1.52 mg/dL Critically high 0.70-1.30 [facility] Comment on above: Performed By: #### C BC #### [facility] [address] [address] [address] Roosevelt Verde EGFR-AF NIGERIAN 58 mL/min/1.73m2 Critically low >=60 [facility] Comment on above: Performed By: #### C BC #### [facility] [address] [address] [address] Roosevelt Verde EGFR-NON AF NIGERIAN 48 mL/min/1.73m2 Critically low >=60 [facility] Comment on above: Performed By: #### C BC #### [facility] [address] [address] [address] Roosevelt Verde Globulin (S) [Mass/Vol] 3.7 g/dL Normal [facility] Comment on above: Performed By: #### C BC #### [facility] [address] [address] [address] Roosevelt Verde Glucose [Mass/Vol] 123 mg/dL Critically high 74-106 [facility] Comment on above: Performed By: #### C BC #### [facility] [address] [address] [address] Roosevelt Verde Potassium [Moles/Vol] 4.7 mmol/L Normal 3.5-5.1 [facility] Comment on above: Performed By: #### C BC #### [facility] [address] [address] [address] Roosevelt Verde Protein [Mass/Vol] 7.5 g/dL Normal 6.4-8.2 [facility] Comment on above: Performed By: #### C BC #### [facility] [address] [address] [address] Roosevelt Verde Sodium [Moles/Vol] 139 mmol/L Normal 136-145 [facility] Comment on above: Performed By: #### C BC #### [facility] [address] [address] [address] Roosevelt Verde Urea nitrogen [Mass/Vol] 22.0 mg/dL Critically high 7.0-18.0 [facility] Comment on above: Performed By: #### C BC #### [facility] [address] [place] [address] Dr. Roosevelt Verde Urea nitrogen/Creatinine [Mass ratio] 14.5 mg/mg Normal [facility] Comment on above: Performed By: #### C BC #### [facility] [address] [place] [address] Dr. Roosevelt Verde SED RATE WESTERGRENon 2022 SED RATE 32 mm/hr Critically high <=20 [facility] Comment on above: Performed By: #### C BC #### [facility] [address] [place] [address] Dr. Roosevelt Verde CBC AUTO DIFFon 07-20-2022 BASO # 0.0 103/ul Normal 0.0-0.1 [facility] Comment on above: Performed By: #### C BC #### [facility] [address] [place] [address] Dr. Roosevelt Verde Basophils/100 WBC (Bld) 0.5 % Normal 0.2-2.0 [facility] Comment on above: Performed By: #### C BC #### [facility] [address] [place] [address] Dr. Roosevelt Verde EO # 0.0 103/ul Normal 0.0-0.7 [facility] Comment on above: Performed By: #### C BC #### [facility] [address] [place] [address] Dr. Roosevelt Verde Eosinophils/100 WBC (Bld) 0.5 % Critically low 0.9-7.0 [facility] Comment on above: Performed By: #### C BC #### [facility] [address] [place] [address] Dr. Roosevelt Verde Erythrocyte distribution width (RBC) [Ratio] 13.1 % Normal 11.0-15.0 [facility] Comment on above: Performed By: #### C BC #### [facility] [address] [place] [address] Dr. Roosevelt Verde Hematocrit (Bld) [Volume fraction] 39.2 % Critically low 42.0-54.0 [facility] Comment on above: Performed By: #### C BC #### [facility] [address] [address] [address] Roosevelt Verde Hemoglobin (Bld) [Mass/Vol] 12.7 g/dL Critically low 14.0-18.0 [facility] Comment on above: Performed By: #### C BC #### [facility] [address] [address] [address] Roosevelt Verde IG # 0.03 10e3/ul Normal 0.00-0.03 [facility] Comment on above: Performed By: #### C BC #### [facility] [address] [place] [address] Dr. Roosevelt Verde IG % 0.4 % Normal 0.0-0.5 [facility] Comment on above: Performed By: #### C BC #### [facility] [address] [place] [address] Dr. Roosevelt Verde LYMPH # 1.6 103/ul Normal 1.2-3.8 [facility] Comment on above: Performed By: #### C BC #### [facility] [address] [place] [address] Dr. Roosevelt Verde Lymphocytes/100 WBC (Bld) 21.7 % Normal 20.5-60.0 [facility] Comment on above: Performed By: #### C BC #### [facility] [address] [place] [address] Dr. Roosevelt Verde MANUAL DIFF REQ NO Normal [facility] Comment on above: Performed By: #### C BC #### [facility] [address] [place] [address] Dr. Roosevelt Verde MCH (RBC) [Entitic mass] 34.0 pg Normal 25.9-34.0 [facility] Comment on above: Performed By: #### C BC #### [facility] [address] [place] [address] Dr. Roosevelt Verde MCHC (RBC) [Mass/Vol] 32.4 g/dL Normal 29.9-35.2 [facility] Comment on above: Performed By: #### C BC #### [facility] [address] [address] [address] Roosevelt Verde MCV (RBC) [Entitic vol] 104.8 fL Critically high 80.0-94.0 [facility] Comment on above: Performed By: #### C BC #### [facility] [address] [address] [address] Roosevelt Verde MONO # 0.6 103/ul Normal 0.3-0.8 [facility] Comment on above: Performed By: #### C BC #### [facility] [address] [address] [address] Roosevelt Verde Monocytes/100 WBC (Bld) 8.2 % Normal 1.7-12.0 [facility] Comment on above: Performed By: #### C BC #### [facility] [address] [place] [address] Dr. Roosevelt Verde NEUT # 5.1 103/ul Normal 1.4-6.5 [facility] Comment on above: Performed By: #### C BC #### [facility] [address] [address] [address] Roosevelt Verde Neutrophils/100 WBC (Bld) 68.7 % Normal 43.0-75.0 [facility] Comment on above: Performed By: #### C BC #### [facility] [address] [place] [address] Dr. Roosevelt Verde Platelet mean volume (Bld) [Entitic vol] 9.2 fL Critically low 9.5-13.5 [facility] Comment on above: Performed By: #### C BC #### [facility] [address] [place] [address] Dr. Roosevelt Verde PLT 286 103/ul Normal 150-450 [facility] Comment on above: Performed By: #### C BC #### [facility] [address] [address] [address] Roosevelt Verde RBC 3.74 106/ul Critically low 4.70-6.10 [facility] Comment on above: Performed By: #### C BC #### [facility] [address] [place] [address] Dr. Roosevelt Verde WBC 7.5 103/ul Normal 4.0-11.0 [facility] Comment on above: Performed By: #### C BC #### [facility] [address] [place] [address] Dr. Roosevelt Verde CREATININEon 07-20-2022 Creatinine [Mass/Vol] 1.53 mg/dL Critically high 0.70-1.30 [facility] Comment on above: Performed By: #### C QUE, CRP, ALT, AST #### [facility] [address] [place] [address] Dr. Roosevelt Verde EGFR-AF NIGERIAN 57 mL/min/1.73m2 Critically low >=60 [facility] Comment on above: Performed By: #### C QUE, CRP, ALT, AST #### [facility] [address] [place] [address] Dr. Roosevelt Verde EGFR-NON AF NIGERIAN 47 mL/min/1.73m2 Critically low >=60 [facility] Comment on above: Performed By: #### C QUE, CRP, ALT, AST #### [facility] [address] [place] [address] Dr. Roosevelt Verde CRPon 07-20-2022 CRP [Mass/Vol] mg/L Normal <=1.0 [facility] Comment on above: Performed By: #### C QUE, CRP, ALT, AST #### [facility] [address] [place] [address] Dr. Roosevelt Verde SED RATE WESTERGRENon 2022 SED RATE 9 mm/hr Normal <=20 [facility] Comment on above: Performed By: #### C BC #### [facility] [address] [place] [address] Dr. Roosevelt Verde SGOTon 07-20-2022 AST [Catalytic activity/Vol] 18 U/L Normal 15-37 [facility] Comment on above: Performed By: #### C QUE, CRP, ALT, AST #### [facility] [address] [place] [address] Dr. Roosevelt Verde SGPTon 07-20-2022 ALT [Catalytic activity/Vol] 44 U/L Normal 16-63 [facility] Comment on above: Performed By: #### C QUE, CRP, ALT, AST #### [facility] [address] [place] [address] Dr. Roosevelt Verde CBC AUTO DIFFon 05-23-2022 BASO # 0.1 103/ul Normal 0.0-0.1 [facility] Comment on above: Performed By: #### C BC #### [facility] [address] [place] [address] Dr. Roosevelt Verde Basophils/100 WBC (Bld) 0.5 % Normal 0.2-2.0 [facility] Comment on above: Performed By: #### C BC #### [facility] [address] [place] [address] Dr. Roosevelt Verde EO # 0.1 103/ul Normal 0.0-0.7 [facility] Comment on above: Performed By: #### C BC #### [facility] [address] [place] [address] Dr. Roosevelt Verde Eosinophils/100 WBC (Bld) 0.6 % Critically low 0.9-7.0 [facility] Comment on above: Performed By: #### C BC #### [facility] [address] [place] [address] Dr. Roosevelt Verde Erythrocyte distribution width (RBC) [Ratio] 14.0 % Normal 11.0-15.0 [facility] Comment on above: Performed By: #### C BC #### [facility] [address] [place] [address] Dr. Roosevelt Verde Hematocrit (Bld) [Volume fraction] 37.3 % Critically low 42.0-54.0 [facility] Comment on above: Performed By: #### C BC #### [facility] [address] [place] [address] Dr. Roosevelt Verde Hemoglobin (Bld) [Mass/Vol] 12.2 g/dL Critically low 14.0-18.0 [facility] Comment on above: Performed By: #### C BC #### [facility] [address] [place] [address] Dr. Roosevelt Verde IG # 0.03 10e3/ul Normal 0.00-0.03 [facility] Comment on above: Performed By: #### C BC #### [facility] [address] [place] [address] Dr. Roosevelt Verde IG % 0.3 % Normal 0.0-0.5 [facility] Comment on above: Performed By: #### C BC #### [facility] [address] [place] [address] Dr. Roosevelt Verde LYMPH # 1.6 103/ul Normal 1.2-3.8 [facility] Comment on above: Performed By: #### C BC #### [facility] [address] [place] [address] Dr. Roosevelt Verde Lymphocytes/100 WBC (Bld) 16.5 % Critically low 20.5-60.0 [facility] Comment on above: Performed By: #### C BC #### [facility] [address] [place] [address] Dr. Roosevelt Verde MANUAL DIFF REQ NO Normal [facility] Comment on above: Performed By: #### C BC #### [facility] [address] [place] [address] Dr. Roosevelt Verde MCH (RBC) [Entitic mass] 35.1 pg Critically high 25.9-34.0 [facility] Comment on above: Performed By: #### C BC #### [facility] [address] [place] [address] Dr. Roosevelt Verde MCHC (RBC) [Mass/Vol] 32.7 g/dL Normal 29.9-35.2 [facility] Comment on above: Performed By: #### C BC #### [facility] [address] [place] [address] Dr. Roosevelt Verde MCV (RBC) [Entitic vol] 107.2 fL Critically high 80.0-94.0 [facility] Comment on above: Result Comment: 1+ m acrocytosis Performed By: #### C BC #### [facility] [address] [address] [address] Roosevelt Verde MONO # 0.7 103/ul Normal 0.3-0.8 [facility] Comment on above: Performed By: #### C BC #### [facility] [address] [address] [address] Roosevelt Verde Monocytes/100 WBC (Bld) 7.6 % Normal 1.7-12.0 [facility] Comment on above: Performed By: #### C BC #### [facility] [address] [address] [address] Roosevelt Verde NEUT # 7.0 103/ul Critically high 1.4-6.5 [facility] Comment on above: Performed By: #### C BC #### [facility] [address] [place] [address] Dr. Roosevelt Verde Neutrophils/100 WBC (Bld) 74.5 % Normal 43.0-75.0 [facility] Comment on above: Performed By: #### C BC #### [facility] [address] [place] [address] Dr. Roosevelt eVrde Platelet mean volume (Bld) [Entitic vol] 9.2 fL Critically low 9.5-13.5 [facility] Comment on above: Performed By: #### C BC #### [facility] [address] [place] [address] Dr. Roosevelt Verde PLT 296 103/ul Normal 150-450 [facility] Comment on above: Performed By: #### C BC #### [facility] [address] [place] [address] Dr. Roosevelt Verde RBC 3.48 106/ul Critically low 4.70-6.10 [facility] Comment on above: Performed By: #### C BC #### [facility] [address] [place] [address] Dr. Roosevelt Verde WBC 9.4 103/ul Normal 4.0-11.0 [facility] Comment on above: Performed By: #### C BC #### [facility] [address] [place], [place] [id number] Dr. Roosevelt Verde CREATININEon 05-23-2022 Creatinine [Mass/Vol] 1.33 mg/dL Critically high 0.70-1.30 [facility] Comment on above: Performed By: #### A ST, CREA, CRP, ALT ####[facility] [address] [address]Dr. Roosevelt Verde EGFR-AF NIGERIAN >60 Normal >=60 [facility] Comment on above: Performed By: #### A ST, CREA, CRP, ALT ####[facility] [address] [address]Dr. Roosevelt Verde EGFR-NON AF NIGERIAN 56 mL/min/1.73m2 Critically low >=60 [facility] Comment on above: Performed By: #### A ST, CREA, CRP, ALT ####[facility] [address] [place], [place] [address]Dr. Roosevelt Verde CRPon 05-23-2022 CRP 0.3 mg/dL Normal <=1.0 [facility] Comment on above: Performed By: #### A ST, CREA, CRP, ALT ####[facility] [address] [place], [place] [address]Dr. Roosevelt Verde SED RATE SHAKOPEEERGREN 2022 SED RATE 11 mm/hr Normal <=20 [facility] Comment on above: Performed By: #### S EDR ####[facility] [address] [place], [place] [address]Dr. Roosveelt Verde SGOTon 05-23-2022 AST [Catalytic activity/Vol] 20 U/L Normal 15-37 [facility] Comment on above: Performed By: #### A ST, CREA, CRP, ALT ####[facility] [address] [place], [place] [address]Dr. Roosevelt Verde SGPTon 05-23-2022 ALT [Catalytic activity/Vol] 36 U/L Normal 16-63 [facility] Comment on above: Performed By: #### A ST, CREA, CRP, ALT ####[facility] [address] [place], [place] [address]Dr. Roosevelt Verde QUANTIFERON TB GOLD PLUSon 1 05-24-2021 QuantiFERON Criteria Comment Normal [facility] Comment on above: Result Comment: Cayden [...] test. Performed By: #### C BC #### [facility] [address] [address] [address] Roosevelt Verde QuantiFERON Incubation Incubation performed. Normal [facility] Comment on above: Performed By: #### C BC #### [facility] [address] [address] [address] Roosevelt Verde QuantiFERON Mitogen Value 2.17 IU/mL Normal [facility] Comment on above: Performed By: #### C BC #### [facility] [address] [address] [address] Roosevelt Verde QuantiFERON Nil Value 0.03 IU/mL Normal [facility] Comment on above: Performed By: #### C BC #### [facility] [address] [address] [address] Roosevelt Verde QuantiFERON TB1 Ag Value 0.04 IU/mL Normal [facility] Comment on above: Performed By: #### C BC #### [facility] [address] [address] [address] Roosevelt Verde QuantiFERON TB2 Ag Value 0.03 IU/mL Normal [facility] Comment on above: Performed By: #### C BC #### [facility] [address] [address] [address] Roosevelt Verde QuantiFERON-TB Gold Plus Negative Normal Negative [facility] Comment on above: Result Comment: No r esponse to M tuberculosis antigens detected. Infection with M tuberculosis is unlikely, but high risk individuals should be considered for additional testing (ATS/IDSA/CDC Clinical Practice Guidelines, 2017). The reference range is an Antigen minus Nil result of <0.35 IU/mL. Chemiluminescence immunoassay methodology Performed By: #### C BC #### [facility] [address] [address] [address] Roosevelt Verde HEP B SURFACE ANTIGEN SCREEN on 03-22-2022 HBsAg Screen Negative Normal Negative [facility] Comment on above: Performed By: #### H BSANS ####[facility] [id number]. Roosevelt Verde HEPATITIS C ANTIBODYon 03-22 Hep C Virus Ab <0.1 Normal 0.0-0.9 [facility] Comment on above: Result Comment: Nega tive: < 0.8 Indeterminate: 0.8 - 0.9 Positive: > 0.9 . HCV antibody alone does not differentiate between previous resolved infection and active infection. The CDC and current clinical guidelines recommend that a positive HCV antibody result be followed up with an HCV RNA test to support the diagnosis of acute HCV infection. [facility] Hepatitis C Virus (HCV) RNA, Diagnosis, DAVON (493140) and Hepatitis C Virus (HCV) Antibody with reflex to Quantitative Real-time PCR (605609). Performed By: #### H CV ####[facility] [address] [id number]. Roosevelt Verde HIV 1 AND 2 WITH REFLEXon HIV Screen 4th Generation wRfx Non-Reactive Normal Non Reactive [facility] Comment on above: Result Comment: HIV Negative HIV-1/HIV-2 antibodies and HIV-1 p24 antigen were NOT detected. There is no laboratory evidence of HIV infection. Performed By: #### C BC #### [facility] [address] [address] [address] Roosevelt Verde CBC AUTO DIFFon 03-21-2022 BASO # 0.0 103/ul Normal 0.0-0.1 [facility] Comment on above: Performed By: #### C BC #### [facility] [id number] Roosevelt Verde Basophils/100 WBC (Bld) 0.3 % Normal 0.2-2.0 [facility] Comment on above: Performed By: #### C BC #### [facility] [address] [place] [address] Dr. Roosevelt Verde EO # 0.1 103/ul Normal 0.0-0.7 [facility] Comment on above: Performed By: #### C BC #### [facility] [address] [place] [address] Dr. Roosevelt Verde Eosinophils/100 WBC (Bld) 1.1 % Normal 0.9-7.0 [facility] Comment on above: Performed By: #### C BC #### [facility] [address] [place] [address] Dr. Roosevelt Verde Erythrocyte distribution width (RBC) [Ratio] 14.6 % Normal 11.0-15.0 [facility] Comment on above: Performed By: #### C BC #### [facility] [address] [place] [address] Dr. Roosevelt Verde Hematocrit (Bld) [Volume fraction] 34.7 % Critically low 42.0-54.0 [facility] Comment on above: Performed By: #### C BC #### [facility] [address] [place] [address] Dr. Roosevelt Verde Hemoglobin (Bld) [Mass/Vol] 11.4 g/dL Critically low 14.0-18.0 [facility] Comment on above: Performed By: #### C BC #### [facility] [address] [place] [address] Dr. Roosevelt Verde IG # 0.02 10e3/ul Normal 0.00-0.03 [facility] Comment on above: Performed By: #### C BC #### [facility] [address] [place] [address] Dr. Roosevelt Verde IG % 0.3 % Normal 0.0-0.5 [facility] Comment on above: Performed By: #### C BC #### [facility] [address] [place] [address] Dr. Roosevelt Verde LYMPH # 1.1 103/ul Critically low 1.2-3.8 [facility] Comment on above: Performed By: #### C BC #### [facility] [address] [address] [address] Roosevelt Verde Lymphocytes/100 WBC (Bld) 16.9 % Critically low 20.5-60.0 [facility] Comment on above: Performed By: #### C BC #### [facility] [address] [address] [address] Roosevelt Verde MANUAL DIFF REQ NO Normal [facility] Comment on above: Performed By: #### C BC #### [facility] [address] [place] [address] Dr. Roosevelt Verde MCH (RBC) [Entitic mass] 33.8 pg Normal 25.9-34.0 [facility] Comment on above: Performed By: #### C BC #### [facility] [address] [place] [address] Dr. Roosevelt Verde MCHC (RBC) [Mass/Vol] 32.9 g/dL Normal 29.9-35.2 [facility] Comment on above: Performed By: #### C BC #### [facility] [address] [place] [address] Dr. Roosevelt Verde MCV (RBC) [Entitic vol] 103.0 fL Critically high 80.0-94.0 [facility] Comment on above: Performed By: #### C BC #### [facility] [address] [place] [address] Dr. Roosevelt Verde MONO # 0.6 103/ul Normal 0.3-0.8 [facility] Comment on above: Performed By: #### C BC #### [facility] [address] [place] [address] Dr. Roosevelt Verde Monocytes/100 WBC (Bld) 9.8 % Normal 1.7-12.0 [facility] Comment on above: Performed By: #### C BC #### [facility] [address] [place] [address] Dr. Roosevelt Verde NEUT # 4.6 103/ul Normal 1.4-6.5 [facility] Comment on above: Performed By: #### C BC #### [facility] [address] [address] [address] Roosevelt Verde Neutrophils/100 WBC (Bld) 71.6 % Normal 43.0-75.0 [facility] Comment on above: Performed By: #### C BC #### [facility] [address] [place] [address] Dr. Roosevelt Verde Platelet mean volume (Bld) [Entitic vol] 9.6 fL Normal 9.5-13.5 [facility] Comment on above: Performed By: #### C BC #### [facility] [address] [address] [address] Roosevelt Verde PLT 327 103/ul Normal 150-450 [facility] Comment on above: Performed By: #### C BC #### [facility] [address] [place] [address] Dr. Roosevelt Verde RBC 3.37 106/ul Critically low 4.70-6.10 [facility] Comment on above: Performed By: #### C BC #### [facility] [address] [place] [address] Dr. Roosevelt Verde WBC 6.5 103/ul Normal 4.0-11.0 [facility] Comment on above: Performed By: #### C BC #### [facility] [address] [place] [address] Dr. Roosevelt Verde CREATININEon 03-21-2022 Creatinine [Mass/Vol] 2.19 mg/dL Critically high 0.70-1.30 [facility] Comment on above: Performed By: #### C BC #### [facility] [address] [place] [address] Dr. Roosevelt Verde EGFR-AF NIGERIAN 38 mL/min/1.73m2 Critically low >=60 [facility] Comment on above: Performed By: #### C BC #### [facility] [address] [place] [address] Dr. Roosevelt Verde EGFR-NON AF NIGERIAN 31 mL/min/1.73m2 Critically low >=60 [facility] Comment on above: Performed By: #### C BC #### [facility] [address] [place] [address] Dr. Roosevelt Verde CRPon 03-21-2022 CRP 0.4 mg/dL Normal <=1.0 [facility] Comment on above: Performed By: #### C BC #### [facility] [address] [place] [address] Dr. Roosevelt Verde SED RATE WESTERGREN 2021 SED RATE 49 mm/hr Critically high <=20 [facility] Comment on above: Performed By: #### S EDR #### [facility] [address] [place] [address] Dr. Roosevelt Verde SGOTon 03-21-2022 AST [Catalytic activity/Vol] 12 U/L Critically low 15-37 [facility] Comment on above: Performed By: #### C BC #### [facility] [address] [place] [address] Dr. Roosevelt Verde SGPTon 03-21-2022 ALT [Catalytic activity/Vol] 27 U/L Normal 16-63 [facility] Comment on above: Performed By: #### C BC #### [facility] [address] [place] [address] Dr. Roosevelt Verde [facility]on SARS-CoV-2 (COVID-19) RNA DAVON+probe Ql (Unsp spec) Not detected Normal NOT DETECTED [facility] Comment on above: Result Comment: This test is not yet approved or cleared by the [place] FDA. When there are no FDA-approved or cleared tests available, and other criteria are met, FDA can make tests available under an emergency access mechanism called an Emergency Use Authorization (EUA). The EUA for this test is supported by the Circulation Representative of Health and Human Service's (HHS's) declaration [...] #### C QUE, CRP, ALT, AST #### [facility] [address] [place] [address] Dr. Roosevelt Verde INFLUENZA A AND B AGon 03-08 INFLUBNEGH SEE BELOW Normal [facility] Comment on above: Result Comment: Nega tive for Flu B protein antigen. Infection due to Flu B cannot be ruled out. Flu B antigen in the sample may be below the detection limit of the test. Performed By: #### C BC #### [facility] [address] [place] [address] Dr. Roosevelt Verde INFLUENZA A AG Positive Abnormal NEGATIVE SEE COMMENT [facility] Comment on above: Performed By: #### C BC #### [facility] [address] [place] [address] Dr. Roosevelt Verde INFLUENZA B AG Negative Normal NEGATIVE SEE COMMENT [facility] Comment on above: Performed By: #### C BC #### [facility] [address] [place] [address] Dr. Roosevelt Verde INFLUPOSH SEE BELOW Normal [facility] Comment on above: Result Comment: NOTE : Live attenuated influenzae vaccine viruses can cause a positive result for a rapid influenza diagnostic test if administered up to 7 days prior to rapid testing. Performed By: #### C BC #### [facility] [address] [place] [address] Dr. Roosevelt Verde INTERNAL CONTROLS Within Normal Limits Normal Within Normal Limits [facility] Comment on above: Performed By: #### C BC #### [facility] [address] [place] [address] Dr. Roosevelt Verde BUNon 01-27-2022 Urea nitrogen [Mass/Vol] 30.0 mg/dL Critically high 7.0-18.0 [facility] Comment on above: Performed By: #### C QUE, BUN ####[facility] [address] [address]Dr. Roosevelt Verde CREATININEon 01-27-2022 Creatinine [Mass/Vol] 2.55 mg/dL Critically high 0.70-1.30 [facility] Comment on above: Performed By: #### C QUE, BUN ####[facility] [address] [address]Dr. Roosevelt Verde EGFR-AF NIGERIAN 32 mL/min/1.73m2 Critically low >=60 [facility] Comment on above: Performed By: #### C QUE, BUN ####[facility] [address] [address]DrMichael Verde EGFR-NON AF NIGERIAN 26 mL/min/1.73m2 Critically low >=60 [facility] Comment on above: Performed By: #### C QUE, BUN ####[facility] [address] [address]DrMichael Verde UA RANDOM W/MICROSCOPICon BACTERIA NONE SEEN Normal NONE SEEN [facility] Comment on above: Performed By: #### U AMIC #### [facility] [address] [place] [address] Dr. Roosevelt Verde Bilirubin Ql (U) Negative Normal NEGATIVE [facility] Comment on above: Performed By: #### U AMIC #### [facility] [address] [place] [address] Dr. Roosevelt Verde CAST SEEN Abnormal NONE SEEN [facility] Comment on above: Performed By: #### U AMIC #### [facility] [address] [place] [address] Dr. Roosevelt Verde Clarity (U) CLEAR Normal CLEAR [facility] Comment on above: Performed By: #### U AMIC #### [facility] [address] [place] [address] Dr. Roosevelt Verde Color (U) DK. YELLOW Normal YELLOW [facility] Comment on above: Performed By: #### U AMIC #### [facility] [address] [place] [address] Dr. Roosevelt Verde Crystals LM Nom (Urine sed) NONE SEEN Normal NONE SEEN [facility] Comment on above: Performed By: #### U AMIC #### [facility] [address] [address] [address] Rooseevlt Verde Epithelial cells LM Ql (Urine sed) NONE SEEN Normal NONE SEEN /RARE [facility] Comment on above: Performed By: #### U AMIC #### [facility] [address] [place] [address] Dr. Roosevelt Verde Glucose Ql (U) Negative Normal NEGATIVE [facility] Comment on above: Performed By: #### U AMIC #### [facility] [address] [address] [address] Roosevelt Verde Hemoglobin Ql (U) Negative Normal NEGATIVE [facility] Comment on above: Performed By: #### U AMIC #### [facility] [address] [place] [address] Dr. Roosevelt Verde Ketones Ql (U) TRACE Abnormal NEGATIVE [facility] Comment on above: Performed By: #### U AMIC #### [facility] [address] [place] [address] Dr. Roosevelt Verde LEUKOCYTES Negative Normal NEGATIVE [facility] Comment on above: Performed By: #### U AMIC #### [facility] [address] [address] [address] Roosevelt Verde MUCOUS NONE SEEN Normal NONE SEEN [facility] Comment on above: Performed By: #### U AMIC #### [facility] [address] [place] [address] Dr. Roosevelt Verde Nitrite Ql (U) Negative Normal NEGATIVE [facility] Comment on above: Performed By: #### U AMIC #### [facility] [address] [place] [address] Dr. Roosevelt Verde pH (U) 6.0 [pH] Normal 5-9 [facility] Comment on above: Performed By: #### U AMIC #### [facility] [address] [place] [address] Dr. Roosevelt Verde RBC NONE SEEN Abnormal 0-2 [facility] Comment on above: Performed By: #### U AMIC #### [facility] [address] [place] [address] Dr. Roosevelt Verde SPEC GRAVITY 1.025 Normal 1.005-<=1.025 [facility] Comment on above: Performed By: #### U AMIC #### [facility] [address] [address] [address] Roosevelt Verde UA PROTEIN Negative Normal NEGATIVE/ TRACE [facility] Comment on above: Performed By: #### U AMIC #### [facility] [address] [address] [address] Roosevelt Verde Urobilinogen Qn (U) 0.2 {Gogo'U}/dL Normal 0.2 - 1. 0 [facility] Comment on above: Performed By: #### U AMIC #### [facility] [address] [address] [address] Roosevelt Verde WBC 0-2 Abnormal NONE SEEN [facility] Comment on above: Performed By: #### U AMIC #### [facility] [address] [address] [address] Roosevelt Verde CBC AUTO DIFFon 01-12-2022 BASO # 0.0 103/ul Normal 0.0-0.1 [facility] Comment on above: Performed By: #### C BC ####[facility] [address] [address]DrMichael Verde Basophils/100 WBC (Bld) 0.6 % Normal 0.2-2.0 [facility] Comment on above: Performed By: #### C BC ####[facility] [address] [address]Dr. Roosevelt Verde EO # 0.1 103/ul Normal 0.0-0.7 [facility] Comment on above: Performed By: #### C BC ####[facility] [address] [id number]. Roosevelt Verde Eosinophils/100 WBC (Bld) 1.5 % Normal 0.9-7.0 [facility] Comment on above: Performed By: #### C BC ####[facility] [address] [id number]. Roosevelt Verde Erythrocyte distribution width (RBC) [Ratio] 13.5 % Normal 11.0-15.0 [facility] Comment on above: Performed By: #### C BC ####[facility] [address] [address]DrMichael Verde Hematocrit (Bld) [Volume fraction] 36.6 % Critically low 42.0-54.0 [facility] Comment on above: Performed By: #### C BC ####[facility] [address] [address]DrMichael Verde Hemoglobin (Bld) [Mass/Vol] 11.8 g/dL Critically low 14.0-18.0 [facility] Comment on above: Performed By: #### C BC ####[facility] [address] [place], [place] [address]DrMichael Verde IG # 0.03 10e3/ul Normal 0.00-0.03 [facility] Comment on above: Performed By: #### C BC ####[facility] [address] [place], [place] [address]DrMichael Verde IG % 0.5 % Normal 0.0-0.5 [facility] Comment on above: Performed By: #### C BC ####[facility] [address] [place], [place] [address]DrMichael Verde LYMPH # 1.5 103/ul Normal 1.2-3.8 [facility] Comment on above: Performed By: #### C BC ####[facility] [address] [place], [place] [address]DrMichael Verde Lymphocytes/100 WBC (Bld) 22.3 % Normal 20.5-60.0 [facility] Comment on above: Performed By: #### C BC ####[facility] [address] [place], [place] [address]DrMichael Verde MANUAL DIFF REQ NO Normal [facility] Comment on above: Performed By: #### C BC ####[facility] [address] [address]DrMichael Verde MCH (RBC) [Entitic mass] 34.2 pg Critically high 25.9-34.0 [facility] Comment on above: Performed By: #### C BC ####[facility] [address] [address]Dr. Roosevelt Verde MCHC (RBC) [Mass/Vol] 32.2 g/dL Normal 29.9-35.2 [facility] Comment on above: Performed By: #### C BC ####[facility] [address] [place], [place] [address]DrMichael Verde MCV (RBC) [Entitic vol] 106.1 fL Critically high 80.0-94.0 [facility] Comment on above: Result Comment: 2+ m acrocytosis Performed By: #### C BC ####[facility] [address] [place], [place] [address]DrMichael Verde MONO # 0.6 103/ul Normal 0.3-0.8 [facility] Comment on above: Performed By: #### C BC ####[facility] [address] [place], [place] [address]DrMichael Verde Monocytes/100 WBC (Bld) 8.7 % Normal 1.7-12.0 [facility] Comment on above: Performed By: #### C BC ####[facility] [address] [place], [place] [address]DrMichael Verde NEUT # 4.4 103/ul Normal 1.4-6.5 [facility] Comment on above: Performed By: #### C BC ####[facility] [address] [place], [place] [address]DrMichael Verde Neutrophils/100 WBC (Bld) 66.4 % Normal 43.0-75.0 [facility] Comment on above: Performed By: #### C BC ####[facility] [address] [place], [place] [address]DrMichael Verde Platelet mean volume (Bld) [Entitic vol] 9.3 fL Critically low 9.5-13.5 [facility] Comment on above: Performed By: #### C BC ####[facility] [address] [place], [place] [address]Dr. Roosevelt Verde PLT 325 103/ul Normal 150-450 [facility] Comment on above: Performed By: #### C BC ####[facility] [address] [address]DrMichael Hustonsánchez Ammon RBC 3.45 106/ul Critically low 4.70-6.10 [facility] Comment on above: Performed By: #### C BC ####[facility] [address] [address]DrMichael Verde WBC 6.6 103/ul Normal 4.0-11.0 [facility] Comment on above: Performed By: #### C BC ####[facility] [address] [address]Dr. Roosevelt Verde CREATININEon 01-12-2022 Creatinine [Mass/Vol] 1.89 mg/dL Critically high 0.70-1.30 [facility] Comment on above: Performed By: #### C QUE, CRP, ALT, AST #### [facility] [address] [address] [address] Roosevelt Verde EGFR-AF NIGERIAN 45 mL/min/1.73m2 Critically low >=60 [facility] Comment on above: Performed By: #### C QUE, CRP, ALT, AST #### [facility] [address] [address] [address] Roosevelt Verde EGFR-NON AF NIGERIAN 37 mL/min/1.73m2 Critically low >=60 [facility] Comment on above: Performed By: #### C QUE, CRP, ALT, AST #### [facility] [address] [address] [address] Roosevelt Verde CRPon 01-12-2022 CRP 0.2 mg/dL Normal <=1.0 [facility] Comment on above: Performed By: #### C QUE, CRP, ALT, AST #### [facility] [address] [address] [address] Roosevelt Verde SED RATE WESTERGRENon 2021 SED RATE 24 mm/hr Critically high <=20 [facility] Comment on above: Performed By: #### S EDR ####[facility] [address] [place], [place] [address]MlDr. Roosevelt Verde SGOTon 01-12-2022 AST [Catalytic activity/Vol] 12 U/L Critically low 15-37 [facility] Comment on above: Performed By: #### C QUE, CRP, ALT, AST #### [facility] [address] [address] [address] Roosevelt Verde SGPTon 01-12-2022 ALT [Catalytic activity/Vol] 26 U/L Normal 16-63 [facility] Comment on above: Performed By: #### C QUE, CRP, ALT, AST #### [facility] [address] [address] [address] Roosevelt Verde VIT D, 1,25 DIHYDROXon 01-11 VIT. D 1,25 37.8 Normal [facility] Comment on above: Result Comment: Pl ease note reference interval change Reference range: 24.8 to 81.5 Unit: pg/mL PERFORMED AT [facility] Performed By: #### L VD125 #### Testing performed at [facility] 25 0H VITAMIN D LEVELon 12-31 25 0H VITAMIN D LEVEL 40.4 NG/ML [facility] Comment on above: Result Comment: DEFICIENT <20 NG/ML INSUFFICIENT 20-<30 NG/ML SUFFICIENT 30-100 NG/ML POTENTIAL TOXICITY >100 NG/ML [facility] 01-10-2022 AST [Catalytic activity/Vol] 22 U/L Normal 17-59 [facility] Comment on above: Performed By: #### L VD125 #### Testing performed at [facility] CREATININE,SERUMon Creatinine [Mass/Vol] 1.78 mg/dL High 0.7-1.2 [facility] Comment on above: Performed By: #### L VD125 #### Testing performed at [facility] EST. GFR, 51 ml/min/1.73sq.m [facility] Comment on above: Performed By: #### L VD125 #### Testing performed at [facility] EST. GFR,Non 42 ml/min/1.73sq.m Normal [facility] Comment on above: Performed By: #### L VD125 #### Testing performed at [facility] GFR Information Average GFR for 50-59 years old = 93. [facility] Comment on above: Result Comment: [employer] President Of [employer] alvin Kidney disease, GFR = <60. Kidney failure, GFR = <15. The GFR estimate is not adjusted for extreme body surface area or acute process, nor has it been validated for women or ethnic groups other than and . Performed By: #### L VD125 #### Testing performed at [facility] VITAMIN D (25-HYDROXY,TOTAL) on 01-10-2022 25-hydroxyvitamin D [Mass/Vol] 40.4 NG/ML [facility] Comment on above: DEFICIENT <20 NG/ML INSUFFICIENT 20-<30 NG/ML SUFFICIENT 30-100 NG/ML POTENTIAL TOXICITY >100 NG/ML [facility] CBC AUTO DIFFon 11-17-2021 BASO # 0.0 103/ul Normal 0.0-0.1 [facility] Comment on above: Performed By: #### C BC #### [facility] [place] [facility] [address] [place] [address] Dr. Roosevelt Verde Basophils/100 WBC (Bld) 0.6 % Normal 0.2-2.0 [facility] Comment on above: Performed By: #### C BC #### [facility] [place] [facility] [address] [place] [address] Dr. Roosevelt Verde EO # 0.1 103/ul Normal 0.0-0.7 [facility] [place] [facility] Comment on above: Performed By: #### C BC #### [facility] [place] [facility] [address] [place] [address] Dr. Roosevelt Verde Eosinophils/100 WBC (Bld) 1.4 % Normal 0.9-7.0 [facility] Comment on above: Performed By: #### C BC #### [facility] [place] [facility] [address] [place] [address] Dr. Roosevelt Verde Erythrocyte distribution width (RBC) [Ratio] 15.4 % Critically high 11.0-15.0 [facility] Comment on above: Performed By: #### C BC #### [facility] [place] [facility] [address] [place] [address] Dr. Roosevelt Verde Hematocrit (Bld) [Volume fraction] 31.7 % Critically low 42.0-54.0 [facility] Comment on above: Performed By: #### C BC #### [facility] [place] [facility] [address] [place] [address] Dr. Roosevelt Verde Hemoglobin (Bld) [Mass/Vol] 10.3 g/dL Critically low 14.0-18.0 [facility] Comment on above: Performed By: #### C BC #### [facility] [place] [facility] [address] [place] [address] Dr. Roosevelt Verde IG # 0.01 10e3/ul Normal 0.00-0.03 [facility] Comment on above: Performed By: #### C BC #### [facility] [place] [facility] [address] [place] [address] Dr. Roosevelt Verde IG % 0.2 % Normal 0.0-0.5 [facility] Comment on above: Performed By: #### C BC #### [facility] [place] [facility] [address] [place] [address] Dr. Roosevelt Verde LYMPH # 1.2 103/ul Normal 1.2-3.8 [facility] Comment on above: Performed By: #### C BC #### [facility] [place] [facility] [address] [place] [address] Dr. Roosevelt Verde Lymphocytes/100 WBC (Bld) 25.2 % Normal 20.5-60.0 [facility] Comment on above: Performed By: #### C BC #### [facility] [place] [facility] [address] [place] [address] Dr. Roosevelt Verde MANUAL DIFF REQ NO Normal [facility] Comment on above: Performed By: #### C BC #### [facility] [place] [facility] [address] [place] [address] Dr. Roosevelt Verde MCH (RBC) [Entitic mass] 35.0 pg Critically high 25.9-34.0 [facility] Comment on above: Performed By: #### C BC #### [facility] [place] [facility] [address] [place] [address] Dr. Roosevelt Verde MCHC (RBC) [Mass/Vol] 32.5 g/dL Normal 29.9-35.2 [facility] [place] [facility] Comment on above: Performed By: #### C BC #### [facility] [place] [facility] [address] [place] [address] Dr. Roosevelt Verde MCV (RBC) [Entitic vol] 107.8 fL Critically high 80.0-94.0 [facility] Comment on above: Performed By: #### C BC #### [facility] [place] [facility] [address] [place] [address] Dr. Roosevelt Verde MONO # 0.5 103/ul Normal 0.3-0.8 [facility] Comment on above: Performed By: #### C BC #### [facility] [place] [facility] [address] [place] [address] Dr. Roosevelt Verde Monocytes/100 WBC (Bld) 11.0 % Normal 1.7-12.0 [facility] Comment on above: Performed By: #### C BC #### [facility] [place] [facility] [address] [place] [address] Dr. Roosevelt Verde NEUT # 3.0 103/ul Normal 1.4-6.5 [facility] [place] [facility] Comment on above: Performed By: #### C BC #### [facility] [place] [facility] [address] [place] [address] Dr. Roosevelt Verde Neutrophils/100 WBC (Bld) 61.6 % Normal 43.0-75.0 [facility] [place] [facility] Comment on above: Performed By: #### C BC #### [facility] [place] [facility] [address] [place] [address] Dr. Roosevelt Verde Platelet mean volume (Bld) [Entitic vol] 8.6 fL Critically low 9.5-13.5 [facility] Comment on above: Performed By: #### C BC #### [facility] [place] [facility] [address] [place] [address] Dr. Roosevelt Verde PLT 326 103/ul Normal 150-450 [facility] Comment on above: Performed By: #### C BC #### [facility] [place] [facility] [address] [address] [address] Roosevelt Verde RBC 2.94 106/ul Critically low 4.70-6.10 [facility] Comment on above: Performed By: #### C BC #### [facility] [place] [facility] [address] [address] [address] Roosevelt Verde WBC 4.9 103/ul Normal 4.0-11.0 [facility] Comment on above: Performed By: #### C BC #### [facility] [place] [facility] [address] [address] [address] Roosevelt Verde CREATININEon 11-17-2021 Creatinine [Mass/Vol] 1.02 mg/dL Normal 0.70-1.30 [facility] Comment on above: Performed By: #### C QUE, ALT, AST, CRP ####[facility] [place] [facility] [id number] [address]DrMichael Verde EGFR-AF NIGERIAN >60 Normal >=60 [facility] Comment on above: Performed By: #### C QUE, ALT, AST, CRP ####[facility] [place] [facility] [address] [address]DrMichael Verde EGFR-NON AF NIGERIAN >60 Normal >=60 [facility] Comment on above: Performed By: #### C QUE, ALT, AST, CRP ####[facility] [place] [facility] [address] [address]DrMichael Verde CRPon 11-17-2021 CRP [Mass/Vol] mg/L Normal <=1.0 [facility] Comment on above: Performed By: #### C QUE, ALT, AST, CRP ####[facility] [place] [facility] [address] [address]DrMichael Verde [facility] SED [facility]ATE 3 mm/hr Normal <=20 [facility] [place] [facility] Comment on above: Performed By: #### S EDR ####[facility] [place] [facility] [id number] [address]Dr. Roosevelt Verde SGOTon 11-17-2021 AST [Catalytic activity/Vol] 13 U/L Critically low 15-37 [facility] Comment on above: Performed By: #### C QUE, ALT, AST, CRP ####[facility] [place] [facility] [address] [place], [place] [address]Ns. Roosevelt Verde SGPTon 11-17-2021 ALT [Catalytic activity/Vol] 22 U/L Normal 16-63 [facility] [place] [facility] Comment on above: Performed By: #### C QUE, ALT, AST, CRP ####[facility] [place] [facility] [address] [address]Dr. Roosevelt Verde VIT D 25-[place] [facility]on 2021 Vitamin D, 25-Hydroxy 40.1 ng/mL Normal 30.0-100.0 [facility] [place] [facility] Comment on above: Result Comment: Dunia min D deficiency has been defined by the [place] [employer] and an Endocrine Society practice guideline as a level of serum 25-OH vitamin D less than 20 ng/mL (1,2). The Endocrine Society went on to further define vitamin D insufficiency as a level between 21 and 29 ng/mL (2). 1. IOM ([place] [employer]). 2010. Dietary reference intakes for calcium and D. [place]: The National Academies Press. 2. Roberta FERRELL, Ofelia HOWARD, Alden BEARD, et al. Evaluation, treatment, and prevention of vitamin D deficiency: an Endocrine Society clinical practice guideline. JCEM. 2010; 96(7):1911-30. Performed By: #### C BC #### [facility] [place] [facility] [address] [address] [address] Roosevelt Verde CBC AUTO DIFFon 10-23-2021 BASO # 0.1 103/ul Normal 0.0-0.1 [facility] Comment on above: Performed By: #### C QUE, CRP, ALT, AST #### [facility] [place] [facility] [address] [address] [address] Roosevelt Verde Basophils/100 WBC (Bld) 0.5 % Normal 0.2-2.0 [facility] [place] [facility] Comment on above: Performed By: #### C QUE, CRP, ALT, AST #### [facility] [place] [facility] [address] [place] [address] Dr. Roosevelt Verde EO # 0.1 103/ul Normal 0.0-0.7 [facility] Comment on above: Performed By: #### C QUE, CRP, ALT, AST #### [facility] [place] [facility] [address] [place] [address] Dr. Roosevelt Verde Eosinophils/100 WBC (Bld) 1.0 % Normal 0.9-7.0 [facility] Comment on above: Performed By: #### C QUE, CRP, ALT, AST #### [facility] [place] [facility] [address] [place] [address] Dr. Roosevelt Verde Erythrocyte distribution width (RBC) [Ratio] 13.4 % Normal 11.0-15.0 [facility] Comment on above: Performed By: #### C QUE, CRP, ALT, AST #### [facility] [place] [facility] [address] [place] [address] Dr. Roosevelt Verde Hematocrit (Bld) [Volume fraction] 43.1 % Normal 42.0-54.0 [facility] Comment on above: Performed By: #### C QUE, CRP, ALT, AST #### [facility] [place] [facility] [address] [place] [address] Dr. Roosevelt Verde Hemoglobin (Bld) [Mass/Vol] 14.4 g/dL Normal 14.0-18.0 [facility] Comment on above: Performed By: #### C QUE, CRP, ALT, AST #### [facility] [place] [facility] [address] [place] [address] Dr. Roosevelt Verde IG # 0.05 10e3/ul Critically high 0.00-0.03 [facility] Comment on above: Performed By: #### C QUE, CRP, ALT, AST #### [facility] [place] [facility] [address] [place] [address] Dr. Roosevelt Verde IG % 0.5 % Normal 0.0-0.5 [facility] Comment on above: Performed By: #### C QUE, CRP, ALT, AST #### [facility] [place] [facility] [address] [place] [address] Dr. Roosevelt Verde LYMPH # 1.9 103/ul Normal 1.2-3.8 [facility] [place] [facility] Comment on above: Performed By: #### C QUE, CRP, ALT, AST #### [facility] [place] [facility] [address] [place] [address] Dr. Roosevelt Verde Lymphocytes/100 WBC (Bld) 19.3 % Critically low 20.5-60.0 [facility] Comment on above: Performed By: #### C QUE, CRP, ALT, AST #### [facility] [place] [facility] [address] [place] [address] Dr. Roosevelt Verde MANUAL DIFF REQ NO Normal [facility] Comment on above: Performed By: #### C QUE, CRP, ALT, AST #### [facility] [place] [facility] [address] [place] [address] Dr. Roosevelt Verde MCH (RBC) [Entitic mass] 34.4 pg Critically high 25.9-34.0 [facility] Comment on above: Performed By: #### C QUE, CRP, ALT, AST #### [facility] [place] [facility] [address] [place] [address] Dr. Roosevelt Verde MCHC (RBC) [Mass/Vol] 33.4 g/dL Normal 29.9-35.2 [facility] Comment on above: Performed By: #### C QUE, CRP, ALT, AST #### [facility] [place] [facility] [address] [place] [address] Dr. Roosevelt Verde MCV (RBC) [Entitic vol] 102.9 fL Critically high 80.0-94.0 [facility] Comment on above: Performed By: #### C QUE, CRP, ALT, AST #### [facility] [place] [facility] [address] [place] [address] Dr. Roosevelt Verde MONO # 0.8 103/ul Normal 0.3-0.8 [facility] Comment on above: Performed By: #### C QUE, CRP, ALT, AST #### [facility] [place] [facility] [address] [place] [address] Dr. Roosevelt Verde Monocytes/100 WBC (Bld) 8.7 % Normal 1.7-12.0 [facility] [place] [facility] Comment on above: Performed By: #### C QUE, CRP, ALT, AST #### [facility] [place] [facility] [address] [address] [address] Roosevelt Verde NEUT # 6.8 103/ul Critically high 1.4-6.5 [facility] Comment on above: Performed By: #### C QUE, CRP, ALT, AST #### [facility] [place] [facility] [address] [address] [address] Roosevelt Verde Neutrophils/100 WBC (Bld) 70.0 % Normal 43.0-75.0 [facility] [place] [facility] Comment on above: Performed By: #### C QUE, CRP, ALT, AST #### [facility] [place] [facility] [address] [place] [address] Dr. Roosevelt Verde Platelet mean volume (Bld) [Entitic vol] 9.2 fL Critically low 9.5-13.5 [facility] Comment on above: Performed By: #### C QUE, CRP, ALT, AST #### [facility] [place] [facility] [address] [address] [address] Roosevelt Verde PLT 328 103/ul Normal 150-450 [facility] [place] [facility] Comment on above: Performed By: #### C QUE, CRP, ALT, AST #### [facility] [place] [facility] [address] [place] [address] Dr. Roosevelt Verde RBC 4.19 106/ul Critically low 4.70-6.10 [facility] Comment on above: Performed By: #### C QUE, CRP, ALT, AST #### [facility] [place] [facility] [address] [place] [address] Dr. Roosevelt Verde WBC 9.7 103/ul Normal 4.0-11.0 [facility] [place] [facility] Comment on above: Performed By: #### C QUE, CRP, ALT, AST #### [facility] [place] [facility] [address] [address] [address] Roosevelt Verde ER URINE PROFILEon 2 Bilirubin Ql (U) Negative Normal NEGATIVE [facility] Comment on above: Performed By: #### C BC #### [facility] [place] [facility] [address] [place] [address] Dr. Roosevelt Verde Clarity (U) CLEAR Normal CLEAR [facility] Comment on above: Performed By: #### C BC #### [facility] [place] [facility] [address] [place] [address] Dr. Roosevelt Verde Color (U) YELLOW Normal YELLOW [facility] Comment on above: Performed By: #### C BC #### [facility] [place] [facility] [address] [place] [address] Dr. Roosevelt JONES A micrscopic examination will be performed if indicated. Normal [facility] Comment on above: Performed By: #### C BC #### [facility] [place] [facility] [address] [place] [address] Dr. Roosevelt Verde Glucose Ql (U) Negative Normal NEGATIVE [facility] Comment on above: Performed By: #### C BC #### [facility] [place] [facility] [address] [place] [address] Dr. Roosevelt Verde Hemoglobin Ql (U) Negative Normal NEGATIVE [facility] Comment on above: Performed By: #### C BC #### [facility] [place] [facility] [address] [place] [address] Dr. Roosevelt Verde Ketones Ql (U) Negative Normal NEGATIVE [facility] Comment on above: Performed By: #### C BC #### [facility] [place] [facility] [address] [place] [address] Dr. Roosevelt Verde LEUKOCYTES Negative Normal NEGATIVE [facility] Comment on above: Performed By: #### C BC #### [facility] [place] [facility] [address] [place] [address] Dr. Roosevelt Verde Nitrite Ql (U) Negative Normal NEGATIVE [facility] Comment on above: Performed By: #### C BC #### [facility] [place] [facility] [address] [place] [address] Dr. Roosevelt Verde pH (U) 5.5 [pH] Normal 5-9 [facility] Comment on above: Performed By: #### C BC #### [facility] [place] [facility] [address] [place] [address] Dr. Roosevelt Verde SPEC GRAVITY 1.025 Normal 1.005-<=1.025 [facility] Comment on above: Performed By: #### C BC #### [facility] [place] [facility] [address] [place] [address] Dr. Roosevelt Verde UA PROTEIN Negative Normal NEGATIVE/ TRACE [facility] Comment on above: Performed By: #### C BC #### [facility] [place] [facility] [address] [place] [address] Dr. Roosevelt Verde UR MICRO IND NOT INDICATED Normal [facility] Comment on above: Result Comment: Prev iously reported as: INDICATED On 10/23/2021 16:15 By CV2 Performed By: #### C BC #### [facility] [place] [facility] [address] [place] [address] Dr. Roosevelt Verde Urobilinogen Qn (U) 0.2 {Gogo'U}/dL Normal 0.2 - 1. 0 [facility] Comment on above: Performed By: #### C BC #### [facility] [place] [facility] [address] [place] [address] Dr. Roosevelt Verde LIPASEon 10-23-2021 Lipase [Catalytic activity/Vol] 137.0 U/L Normal 73.0-393.0 [facility] Comment on above: Performed By: #### C BC #### [facility] [place] [facility] [address] [place] [address] Dr. Roosevelt Verde PROF 14(COMP METB)on 022 Albumin [Mass/Vol] 4.0 g/dL Normal 3.4-5.0 [facility] Comment on above: Performed By: #### C BC #### [facility] [place] [facility] [address] [place] [address] Dr. Roosevelt Verde Albumin/Globulin [Mass ratio] 1.3 {ratio} Normal [facility] Comment on above: Performed By: #### C BC #### [facility] [place] [facility] [address] [place] [address] Dr. Roosevelt Verde ALP [Catalytic activity/Vol] 73 U/L Normal 46-116 [facility] [place] [facility] Comment on above: Performed By: #### C BC #### [facility] [place] [facility] [address] [address] [address] Roosevelt Verde ALT [Catalytic activity/Vol] 35 U/L Normal 16-63 [facility] [place] [facility] Comment on above: Performed By: #### C BC #### [facility] [place] [facility] [address] [address] [address] Roosevelt Verde Anion gap [Moles/Vol] 9.9 mmol/L Normal [facility] Comment on above: Performed By: #### C BC #### [facility] [place] [facility] [address] [address] [address] Roosevelt Verde AST [Catalytic activity/Vol] 16 U/L Normal 15-37 [facility] [place] [facility] Comment on above: Performed By: #### C BC #### [facility] [place] [facility] [address] [place] [address] Dr. Roosevelt Verde Bilirubin [Mass/Vol] 0.7 mg/dL Normal 0.2-1.0 [facility] Comment on above: Performed By: #### C BC #### [facility] [place] [facility] [address] [place] [address] Dr. Roosevelt Verde Calcium [Mass/Vol] 8.8 mg/dL Normal 8.5-10.1 [facility] Comment on above: Performed By: #### C BC #### [facility] [place] [facility] [address] [place] [address] Dr. Roosevelt Verde Chloride [Moles/Vol] 107 mmol/L Normal 98-107 [facility] [place] [facility] Comment on above: Performed By: #### C BC #### [facility] [place] [facility] [address] [place] [address] Dr. Roosevelt Verde CO2 [Moles/Vol] 27.6 mmol/L Normal 21.0-32.0 [facility] Comment on above: Performed By: #### C BC #### [facility] [place] [facility] [address] [place] [address] Dr. Roosevelt Verde Creatinine [Mass/Vol] 1.10 mg/dL Normal 0.70-1.30 [facility] Comment on above: Performed By: #### C BC #### [facility] [place] [facility] [address] [place], [place] [id number] Dr. Roosevelt Verde EGFR-AF NIGERIAN >60 Normal >=60 [facility] Comment on above: Performed By: #### C BC #### [facility] [place] [facility] [address] [place] [address] Dr. Roosevelt Verde EGFR-NON AF NIGERIAN >60 Normal >=60 [facility] Comment on above: Performed By: #### C BC #### [facility] [place] [facility] [address] [place] [address] Dr. Roosevelt Verde Globulin (S) [Mass/Vol] 3.0 g/dL Normal [facility] Comment on above: Performed By: #### C BC #### [facility] [place] [facility] [address] [place] [address] Dr. Roosevelt Verde Glucose [Mass/Vol] 83 mg/dL Normal 74-106 [facility] Comment on above: Performed By: #### C BC #### [facility] [place] [facility] [address] [place] [address] Dr. Roosevelt Verde Potassium [Moles/Vol] 4.5 mmol/L Normal 3.5-5.1 [facility] Comment on above: Performed By: #### C BC #### [facility] [place] [facility] [address] [place] [address] Dr. Roosevelt Verde Protein [Mass/Vol] 7.0 g/dL Normal 6.4-8.2 [facility] Comment on above: Performed By: #### C BC #### [facility] [place] [facility] [address] [place] [address] Dr. Roosevelt Verde Sodium [Moles/Vol] 140 mmol/L Normal 136-145 [facility] Comment on above: Performed By: #### C BC #### [facility] [place] [facility] [address] [place] [address] Dr. Roosevelt Vrede Urea nitrogen [Mass/Vol] 23.0 mg/dL Critically high 7.0-18.0 [facility] Comment on above: Performed By: #### C BC #### [facility] [place] [facility] [address] [place] [address] Dr. Roosevelt Verde Urea nitrogen/Creatinine [Mass ratio] 20.9 mg/mg Normal [facility] [place] [facility] Comment on above: Performed By: #### C BC #### [facility] [place] [facility] [address] [address] [address] Roosevelt Verde XR KUB 1 VIEWon [...] TRA ALDRIDGE Date: 2021-10-23 16:26 Normal [facility] [place] [facility] CBC AUTO DIFFon 09-16-2021 BASO # 0.0 103/ul Normal 0.0-0.1 [facility] [place] [facility] Comment on above: Performed By: #### C BC #### [facility] [place] [facility] [address] [place] [address] Dr. Roosevelt Verde Basophils/100 WBC (Bld) 0.5 % Normal 0.2-2.0 [facility] Comment on above: Performed By: #### C BC #### [facility] [place] [facility] [address] [place] [address] Dr. Roosevelt Verde EO # 0.1 103/ul Normal 0.0-0.7 [facility] [place] [facility] Comment on above: Performed By: #### C BC #### [facility] [place] [facility] [address] [address] [address] Roosevelt Verde Eosinophils/100 WBC (Bld) 0.6 % Critically low 0.9-7.0 [facility] Comment on above: Performed By: #### C BC #### [facility] [place] [facility] [address] [place] [address] Dr. Roosevelt Verde Erythrocyte distribution width (RBC) [Ratio] 13.2 % Normal 11.0-15.0 [facility] Comment on above: Performed By: #### C BC #### [facility] [place] [facility] [address] [place] [address] Dr. Roosevelt Verde Hematocrit (Bld) [Volume fraction] 42.9 % Normal 42.0-54.0 [facility] Comment on above: Performed By: #### C BC #### [facility] [place] [facility] [address] [place] [address] Dr. Roosevelt Verde Hemoglobin (Bld) [Mass/Vol] 14.2 g/dL Normal 14.0-18.0 [facility] Comment on above: Performed By: #### C BC #### [facility] [place] [facility] [address] [place] [address] Dr. Roosevelt Verde IG # 0.03 10e3/ul Normal 0.00-0.03 [facility] Comment on above: Performed By: #### C BC #### [facility] [place] [facility] [address] [place] [address] Dr. Roosevelt Verde IG % 0.4 % Normal 0.0-0.5 [facility] Comment on above: Performed By: #### C BC #### [facility] [place] [facility] [address] [place] [address] Dr. Roosevelt Verde LYMPH # 1.7 103/ul Normal 1.2-3.8 [facility] Comment on above: Performed By: #### C BC #### [facility] [place] [facility] [address] [place] [address] Dr. Roosevelt Verde Lymphocytes/100 WBC (Bld) 21.0 % Normal 20.5-60.0 [facility] Comment on above: Performed By: #### C BC #### [facility] [place] [facility] [address] [place] [address] Dr. Roosevelt Verde MANUAL DIFF REQ NO Normal [facility] Comment on above: Performed By: #### C BC #### [facility] [place] [facility] [address] [place] [address] Dr. Roosevelt Verde MCH (RBC) [Entitic mass] 34.5 pg Critically high 25.9-34.0 [facility] Comment on above: Performed By: #### C BC #### [facility] [place] [facility] [address] [address] [address] Roosevelt Verde MCHC (RBC) [Mass/Vol] 33.1 g/dL Normal 29.9-35.2 [facility] Comment on above: Performed By: #### C BC #### [facility] [address] [address] [address] Roosevelt Verde MCV (RBC) [Entitic vol] 104.4 fL Critically high 80.0-94.0 [facility] Comment on above: Performed By: #### C BC #### [facility] [address] [address] [address] Roosevelt Verde MONO # 0.8 103/ul Normal 0.3-0.8 [facility] Comment on above: Performed By: #### C BC #### [facility] [address] [place] [address] Dr. Roosevelt Verde Monocytes/100 WBC (Bld) 9.6 % Normal 1.7-12.0 [facility] Comment on above: Performed By: #### C BC #### [facility] [address] [place] [address] Dr. Roosevelt Verde NEUT # 5.5 103/ul Normal 1.4-6.5 [facility] Comment on above: Performed By: #### C BC #### [facility] [address] [place] [address] Dr. Roosevelt Verde Neutrophils/100 WBC (Bld) 67.9 % Normal 43.0-75.0 [facility] Comment on above: Performed By: #### C BC #### [facility] [address] [address] [address] Roosevelt Verde Platelet mean volume (Bld) [Entitic vol] 9.4 fL Critically low 9.5-13.5 [facility] Comment on above: Performed By: #### C BC #### [facility] [address] [address] [address] Roosevelt Verde PLT 290 103/ul Normal 150-450 [facility] Comment on above: Performed By: #### C BC #### [facility] [address] [address] [address] Roosevelt Verde RBC 4.11 106/ul Critically low 4.70-6.10 [facility] Comment on above: Performed By: #### C BC #### [facility] [address] [address] [address] Roosevelt Verde WBC 8.1 103/ul Normal 4.0-11.0 [facility] Comment on above: Performed By: #### C BC #### [facility] [address] [address] [address] Roosevelt Verde CREATININEon 09-16-2021 Creatinine [Mass/Vol] 1.20 mg/dL Normal 0.70-1.30 [facility] Comment on above: Performed By: #### C QUE, CRP, ALT, AST #### [facility] [address] [address] [address] Roosevelt Verde EGFR-AF NIGERIAN >=60 Normal >=60 [facility] Comment on above: Performed By: #### C QUE, CRP, ALT, AST #### [facility] [address] [address] [address] Roosevelt Verde EGFR-NON AF NIGERIAN >=60 Normal >=60 [facility] Comment on above: Performed By: #### C QUE, CRP, ALT, AST #### [facility] [address] [address] [address] Roosevelt Verde CRPon 09-16-2021 CRP [Mass/Vol] mg/L Normal <=1.0 [facility] Comment on above: Performed By: #### C QUE, CRP, ALT, AST #### [facility] [address] [address] [address] Roosevelt Verde SED RATE WESTERGRENon 2021 SED RATE 4 mm/hr Normal <=20 [facility] Comment on above: Performed By: #### S EDR ####[facility] [id number] [address]Dr[address] Roosevelt Verde SGOTon 09-16-2021 AST [Catalytic activity/Vol] 17 U/L Normal 15-37 [facility] Comment on above: Performed By: #### C QUE, CRP, ALT, AST #### [facility] [address] [address] [address] Roosevelt Verde [facility] 09-16-2021 ALT [Catalytic activity/Vol] 36 U/L Normal 16-63 [facility] Comment on above: Performed By: #### C QUE, CRP, ALT, AST #### [facility] [address] [place] [address] Dr. Roosevelt Verde VIT D, 1,25 DIHYDROXon 07-13 VIT. D 1,25 41.4 Normal [facility] Comment on above: Result Comment: Refe rence range: 19.9 to 79.3 Unit: pg/mL PERFORMED AT [facility] Performed By: #### L VD125 #### Testing performed at [facility] 25 0H VITAMIN D LEVELon 07-01 25 0H VITAMIN D LEVEL 47.4 NG/ML Normal [facility] Comment on above: Result Comment: DEFICIENT <20 NG/ML INSUFFICIENT 20-<30 NG/ML SUFFICIENT 30-100 NG/ML POTENTIAL TOXICITY >100 NG/ML [place] 07-12-2021 ALT [Catalytic activity/Vol] 25 U/L Normal <50 [facility] Comment on above: Performed By: #### L [id number] #### Testing performed at [facility] ALT [Catalytic activity/Vol] 25 U/L <50 IU/L [facility] 07-12-2021 AST [Catalytic activity/Vol] 22 U/L Normal 17-59 [facility] Comment on above: Performed By: #### L VD125 #### Testing performed at [facility] AST [Catalytic activity/Vol] 22 U/L [facility] C REACTIVE PROTEINon 022 CRP [Mass/Vol] mg/L Normal 0-10 [facility] Comment on above: Performed By: #### L VD125 #### Testing performed at [facility] CRP [Mass/Vol] mg/L 0 - 10 MG/L [facility] CBCon 07-12-2021 ABSOLUTE BAS 0.0 10*3/uL Normal 0.0-0.2 [facility] Comment on above: Performed By: #### L VD125 #### Testing performed at [facility] ABSOLUTE EOS 0.10 10*3/uL Normal 0.0-0.7 [facility] Comment on above: Performed By: #### L VD125 #### Testing performed at [facility] ABSOLUTE NEUTROPHIL COUNT 4.2 10*3/uL Normal 1.4-6.5 [facility] Comment on above: Performed By: #### L VD125 #### Testing performed at [facility] Basophils/100 WBC (Bld) 0.5 % Normal 0.0-2.0 [facility] Comment on above: Performed By: #### L VD125 #### Testing performed at [facility] DTYPE AUTO DIFF Normal [facility] Comment on above: Performed By: #### L VD125 #### Testing performed at [facility] Eosinophils/100 WBC (Bld) 0.9 % Normal 0.0-11.0 [facility] Comment on above: Performed By: #### L VD125 #### Testing performed at [facility] Lymphocytes (Bld) [#/Vol] 1.20 10*3/uL Normal 1.2-3.4 [facility] Comment on above: Performed By: #### L VD125 #### Testing performed at [facility] Lymphocytes/100 WBC (Bld) 20.2 % Normal 20.0-55.0 [facility] Comment on above: Performed By: #### L VD125 #### Testing performed at [facility] Monocytes (Bld) [#/Vol] 0.6 10*3/uL Normal 0.0-0.7 [facility] Comment on above: Performed By: #### L VD125 #### Testing performed at [facility] Monocytes/100 WBC (Bld) 10.2 % High 0.0-10.0 [facility] Comment on above: Performed By: #### L VD125 #### Testing performed at [facility] Neutrophils/100 WBC (Bld) 68.2 % Normal 37.0-75.0 [facility] Comment on above: Performed By: #### L VD125 #### Testing performed at [facility] Erythrocyte distribution width (RBC) [Ratio] 14.5 % Normal 11.5-14.5 [facility] Comment on above: Performed By: #### L VD125 #### Testing performed at [facility] Hematocrit (Bld) [Volume fraction] 43.9 % Normal 42.0-52.0 [facility] Comment on above: Performed By: #### L VD125 #### Testing performed at [facility] Hemoglobin (Bld) [Mass/Vol] 14.6 g/dL Normal 14.0-18.0 [facility] Comment on above: Performed By: #### L VD125 #### Testing performed at [facility] MCH (RBC) [Entitic mass] 34.7 pg Normal 26.0-35.0 [facility] Comment on above: Performed By: #### L VD125 #### Testing performed at [facility] MCHC (RBC) [Mass/Vol] 33.2 g/dL Normal 27.0-37.0 [facility] Comment on above: Performed By: #### L VD125 #### Testing performed at [facility] MCV (RBC) [Entitic vol] 104.6 fL High 80.0-100.0 [facility] Comment on above: Performed By: #### L VD125 #### Testing performed at [facility] Platelet mean volume (Bld) [Entitic vol] 7.4 fL Normal 7.4-11.0 [facility] Comment on above: Performed By: #### L VD125 #### Testing performed at [facility] Platelets (Bld) [#/Vol] 304 10*3/uL Normal 130.0-400.0 [facility] Comment on above: Performed By: #### L VD125 #### Testing performed at [facility] RBC (Bld) [#/Vol] 4.20 10*6/uL Normal 4.0-6.1 [facility] Comment on above: Performed By: #### L VD125 #### Testing performed at [facility] WBC (Bld) [#/Vol] 6.2 10*3/uL Normal 3.6-11.0 [facility] Comment on above: Performed By: #### L VD125 #### Testing performed at [facility] CBC, EDIF, PLATELETon 2021 ABSOLUTE BASOPHIL COUNT 0.0 10*3/uL 0.0 - 0.2 10*3/uL [facility] Basophils/100 WBC (Bld) 0.5 % 0.0 - 2.0 % [facility] Differential cell count method Nom (Bld) AUTO DIFF % [facility] Eosinophils (Bld) [#/Vol] 0.10 10*3/uL 0.0 - 0.7 10*3/uL [facility] Eosinophils/100 WBC (Bld) 0.9 % 0.0 - 11.0 % [facility] Erythrocyte distribution width (RBC) [Ratio] 14.5 % 11.5 - 14.5 % [facility] Hematocrit (Bld) [Volume fraction] 43.9 % 42.0 - 52.0 % [facility] Hemoglobin (Bld) [Mass/Vol] 14.6 g/dL [facility] Interpretation and review of laboratory results Abnormal [facility] Lymphocytes (Bld) [#/Vol] 1.20 10*3/uL 1.2 - 3.4 10*3/uL [facility] Lymphocytes/100 WBC (Bld) 20.2 % 20.0 - 55.0 % [facility] MCH (RBC) [Entitic mass] 34.7 pg 26.0 - 35.0 PG [facility] MCHC (RBC) [Mass/Vol] 33.2 g/dL [facility] MCV (RBC) [Entitic vol] 104.6 fL High [facility] Monocytes (Bld) [#/Vol] 0.6 10*3/uL 0.0 - 0.7 10*3/uL [facility] Monocytes/100 WBC (Bld) 10.2 % High 0.0 - 10.0 % [facility] Neutrophils (Bld) [#/Vol] 4.2 10*3/uL 1.4 - 6.5 10*3/uL [facility] Neutrophils/100 WBC (Bld) 68.2 % 37.0 - 75.0 % [facility] Platelet mean volume (Bld) [Entitic vol] 7.4 fL [facility] Platelets (Bld) [#/Vol] 304 10*3/uL 130.0 - 400.0 10*3/uL [facility] RBC (Bld) [#/Vol] 4.20 10*6/uL 4.0 - 6.1 10*6/u L [facility] WBC (Bld) [#/Vol] 6.2 10*3/uL 3.6 - 11.0 10*3/uL [facility] CREATININE SERUMon 2 Creatinine [Mass/Vol] 0.92 mg/dL [facility] GFR COMMENT Average GFR for 50-59 years old = 93. [facility] Comment on above: Chronic Kidney disea se, GFR = <60. Kidney failure, GFR = <15. The GFR estimate is not adjusted for extreme body surface area or acute process, nor has it been validated for women or ethnic groups other than and . GFR/1.73 sq M.predicted among blacks MDRD (S/P/Bld) [Vol rate/Area] 110 mL/min/{1.73_m2} ml/min/1.73sq.m [facility] GFR/1.73 sq M.predicted among non-blacks MDRD (S/P/Bld) [Vol rate/Area] 91 mL/min/{1.73_m2} ml/min/1.73sq.m [facility] CREATININE,SERUMon 2 Creatinine [Mass/Vol] 0.92 mg/dL Normal 0.7-1.2 [facility] Comment on above: Performed By: #### L VD125 #### Testing performed at [facility] EST. GFR, 110 ml/min/1.73sq.m [facility] Comment on above: Performed By: #### L VD125 #### Testing performed at [facility] EST. GFR,Non 91 ml/min/1.73sq.m [facility] Comment on above: Performed By: #### L VD125 #### Testing performed at [facility] GFR Information Average GFR for 50-59 years old = 93. [facility] Comment on above: Result Comment: Vice President Of Manufacturing alvin Kidney disease, GFR = <60. Kidney failure, GFR = <15. The GFR estimate is not adjusted for extreme body surface area or acute process, nor has it been validated for women or ethnic groups other than and . Performed By: #### L VD125 #### Testing performed at [facility] ESRon 07-12-2021 ESR (Bld) [Velocity] 2 mm/h Normal 0-20 [facility] Comment on above: Performed By: #### L VD125 #### Testing performed at [facility] No Panel Informationon 07-12 [facility] SEDIMENTATION RATE, AUTOMATE Don 07-12-2021 ESR (Bld) [Velocity] 2 mm/h [facility] VITAMIN D (25-HYDROXY,TOTAL) on 07-12-2021 25-hydroxyvitamin D [Mass/Vol] 47.4 NG/ML [facility] Comment on above: DEFICIENT <20 NG/ML INSUFFICIENT 20-<30 NG/ML SUFFICIENT 30-100 NG/ML POTENTIAL TOXICITY >100 NG/ML [facility] Q - QUANTIFERON TB GOLD PLUS on 03-18-2021 MITOGEN-NIL 9.02 IU/mL Normal [facility] Philosophy Professor Comment on above: Order Comment: [facility] Testing performed at: [facility], [facility], [address] [place] [address], [address] [place] [address], [place], [address], Inside Account Representative: Rick Connors MD [facility] Collection Date/Time: [facility] Results Received Date/Time: [facility] Reported Date/Time: FASTING: NO Performed By: #### [id number] #### [facility] Default [address] [place] [address] NIL 0.03 IU/mL Normal [facility] Philosophy Professor Comment on above: Order Comment: [facility] Testing performed at: [facility], [employer] [facility], [address] [place] [address], [address] [place] [address], [address] [place] [address], Inside Account Representative: Rick Connors MD [facility] Collection Date/Time: [facility] Results Received Date/Time: [facility] Reported Date/Time: FASTING: NO Performed By: #### [id number] #### [facility] [address] [place] [address] QUANTIFERON(R)-TB GOLD PLUS, 1 TUBE Negative Normal NEGATIVE [facility] Specialist Comment on above: Order Comment: [facility] Testing performed at: [place] [employer] [facility], [address] [place] [address], [address] [place] [address], [address] [place] [address], Inside Account Representative: Rick Connors MD [facility] Collection Date/Time: [facility] Results Received Date/Time: [facility] Reported Date/Time: FASTING: NO Result Comment: Nega tive test result. M. tuberculosis complex infection unlikely. Performed By: #### [id number] #### [facility] [address] [place] [address] TB1-NIL 0.00 IU/mL Normal [facility] Philosophy Professor Comment on above: Order Comment: [facility] Testing performed at: [employer], [employer] [facility], [address] [place] [address], [address] [place] [address], [address] [place] [address], Inside Account Representative: Rick Connors MD [facility] Collection Date/Time: [facility] Results Received Date/Time: [facility] Reported Date/Time: FASTING: NO Performed By: #### [id number] #### [facility] Default [address] [place] [address] TB2-NIL 0.00 IU/mL Normal [facility] Philosophy Professor Comment on above: Order Comment: [facility] Testing performed at: [facility], [facility], [address], [address] [place], [address], Inside Account Representative: Rick Connors MD [facility] Collection Date/Time: [id number] [facility] Results Received Date/Time: [facility] Reported Date/Time: [...] T-lymphocytes. For additional information, please refer to https://education.Lazarus Effect.Eventup/faq/[email or web address] (This link is being provided for informational/ educational purposes only.) Performed By: #### [id number] #### [facility] [address] [facility] [place] [address] Demetrius 07-13-2020 ALT [Catalytic activity/Vol] 18 U/L <50 IU/L [facility] Levar 07-13-2020 AST [Catalytic activity/Vol] 19 U/L [facility] C REACTIVE PROTEINon 021 CRP [Mass/Vol] mg/L 0 - 10 MG/L [facility] CBC, EDIF, PLATELETon 2020 ABSOLUTE BASOPHIL COUNT 0.1 10*3/uL 0.0 - 0.2 10*3/uL [facility] Basophils/100 WBC (Bld) 0.8 % 0.0 - 2.0 % [facility] Differential cell count method Nom (Bld) AUTO DIFF % [facility] Eosinophils (Bld) [#/Vol] 0.10 10*3/uL 0.0 - 0.7 10*3/uL [facility] Eosinophils/100 WBC (Bld) 1.7 % 0.0 - 11.0 % [facility] Erythrocyte distribution width (RBC) [Ratio] 15.4 % High 11.5 - 14.5 % [facility] Hematocrit (Bld) [Volume fraction] 44.9 % 42.0 - 52.0 % [facility] Hemoglobin (Bld) [Mass/Vol] 15.4 g/dL [facility] Interpretation and review of laboratory results Abnormal [facility] Lymphocytes (Bld) [#/Vol] 2.00 10*3/uL 1.2 - 3.4 10*3/uL [facility] Lymphocytes/100 WBC (Bld) 22.9 % 20.0 - 55.0 % [facility] MCH (RBC) [Entitic mass] 36.0 pg High 26.0 - 35.0 PG [facility] MCHC (RBC) [Mass/Vol] 34.3 g/dL [facility] MCV (RBC) [Entitic vol] 104.8 fL High [facility] Monocytes (Bld) [#/Vol] 1.0 10*3/uL High 0.0 - 0.7 10*3/uL [facility] Monocytes/100 WBC (Bld) 11.1 % High 0.0 - 10.0 % [facility] Neutrophils (Bld) [#/Vol] 5.4 10*3/uL 1.4 - 6.5 10*3/uL [facility] Neutrophils/100 WBC (Bld) 63.5 % 37.0 - 75.0 % [facility] Platelet mean volume (Bld) [Entitic vol] 7.6 fL [facility] Platelets (Bld) [#/Vol] 276 10*3/uL 130.0 - 400.0 10*3/uL [facility] RBC (Bld) [#/Vol] 4.29 10*6/uL 4.0 - 6.1 10*6/u L [facility] WBC (Bld) [#/Vol] 8.6 10*3/uL 3.6 - 11.0 10*3/uL [facility] CREATININE SERUMon 04-13-202 1 Creatinine [Mass/Vol] 1.01 mg/dL Next audience GFR/1.73 sq M predicted among blacks MDRD (S/P/Bld) [Vol rate/Area] mL/min/{1.73_m2} ml/min/1.73sq.m [facility] GFR/1.73 sq M predicted among non-blacks MDRD (S/P/Bld) [Vol rate/Area] Average GFR for 50-59 years old = 93. [facility] Comment on above: Chronic Kidney disea se, GFR = <60. Kidney failure, GFR = <15. The GFR estimate is not adjusted for extreme body surface area or acute process, nor has it been validated for women or ethnic groups other than and . GFR/1.73 sq M predicted among non-blacks MDRD (S/P/Bld) [Vol rate/Area] mL/min/{1.73_m2} ml/min/1.73sq.m [facility] Otheron 07-13-2020 [facility] SEDIMENTATION RATE, AUTOMATE Don 07-13-2020 ESR (Bld) [Velocity] 9 mm/h [facility] [facility] [employer] [facility] VITAMIN D (25-HYDROXY,TOTAL) on 07-13-2020 25-Hydroxyvitamin D2+25-Hydroxyvitamin D3 [Mass/Vol] 54.1 NG/ML [facility] Comment on above: DEFICIENT <20 NG/ML INSUFFICIENT 20-<30 NG/ML SUFFICIENT 30-100 NG/ML POTENTIAL TOXICITY >100 NG/ML [facility] Operative Reporton 1 Operative Report MR#: [id number] S [facility] Pt. Name: Glenda Buckley Room #: 0C [...] closed using Prolene sutures placed in a [id number] fashion. No mesh was placed. The subcutaneous [...] Stiles MD Date Trans: 07/06/2020 01:22 A/dio [id number] cc: Rodrigo Luz M.D. [address] [facility], [place] [address] Normal [facility] POC GLUCOSE LABon 07-05-2020 Glucose [Mass/Vol] 90 mg/dL Normal 70-100 [facility] Comment on above: Performed By: #### [id number] #### [facility] [address] [place] [address], [facility] Demetrius 01-13-2020 ALT [Catalytic activity/Vol] 21 U/L <50 IU/L [facility] Levar 01-13-2020 AST [Catalytic activity/Vol] 22 U/L [facility] C REACTIVE PROTEINon 020 CRP [Mass/Vol] mg/L 0 - 10 MG/L [facility] CBC, EDIF, PLATELETon 2019 ABSOLUTE BASOPHIL COUNT 0.0 10*3/uL 0 - 0.2 10*3/uL [facility] Basophils/100 WBC (Bld) 0.6 % 0 - 2 % [facility] Differential cell count method Nom (Bld) AUTO DIFF % [facility] Eosinophils (Bld) [#/Vol] 0.10 10*3/uL 0 - 0.7 10*3/uL [facility] Eosinophils/100 WBC (Bld) 1.1 % 0 - 11 % [facility] Erythrocyte distribution width (RBC) [Ratio] 14.1 % 11.5 - 14.5 % [facility] Hematocrit (Bld) [Volume fraction] 43.7 % 42 - 52 % [facility] Hemoglobin (Bld) [Mass/Vol] 15.0 g/dL [facility] Interpretation and review of laboratory results Abnormal [facility] Lymphocytes (Bld) [#/Vol] 1.50 10*3/uL 1.2 - 3.4 10*3/uL [facility] Lymphocytes/100 WBC (Bld) 21.7 % 20 - 55 % [facility] MCH (RBC) [Entitic mass] 35.2 pg High 26 - 35 PG [facility] MCHC (RBC) [Mass/Vol] 34.3 g/dL [facility] MCV (RBC) [Entitic vol] 102.7 fL High [facility] Monocytes (Bld) [#/Vol] 0.8 10*3/uL High 0 - 0.7 10*3/uL [facility] Monocytes/100 WBC (Bld) 11.4 % High 0 - 10 % [facility] Neutrophils (Bld) [#/Vol] 4.4 10*3/uL 1.4 - 6.5 10*3/uL [facility] Neutrophils/100 WBC (Bld) 65.2 % 37 - 75 % [facility] Platelet mean volume (Bld) [Entitic vol] 7.4 fL [facility] Platelets (Bld) [#/Vol] 265 10*3/uL 130 - 400 10*3/uL [facility] RBC (Bld) [#/Vol] 4.25 10*6/uL 4 - 6.1 10*6/uL [facility] WBC (Bld) [#/Vol] 6.8 10*3/uL 3.6 - 11 10*3/uL [facility] CREATININE SERUMon 0 Creatinine [Mass/Vol] 0.95 mg/dL [facility] GFR/1.73 sq M predicted among blacks MDRD (S/P/Bld) [Vol rate/Area] mL/min/{1.73_m2} ml/min/1.73sq.m [facility] GFR/1.73 sq M predicted among non-blacks MDRD (S/P/Bld) [Vol rate/Area] Average GFR for 50-59 years old = 93. [facility] Comment on above: Chronic Kidney disea se, GFR = <60. Kidney failure, GFR = <15. The GFR estimate is not adjusted for extreme body surface area or acute process, nor has it been validated for women or ethnic groups other than and . GFR/1.73 sq M predicted among non-blacks MDRD (S/P/Bld) [Vol rate/Area] mL/min/{1.73_m2} ml/min/1.73sq.m [facility] SEDIMENTATION RATE, AUTOMATE Don 01-13-2020 ESR (Bld) [Velocity] 5 mm/h [facility] Vital Signs Date Time Vital Sign Value Performing Clinician Facility 10-01-2023 13:02-0400 Blood Pressure Location Yusuf POLLARD [facility] 10-01-2023 13:02-0400 Diastolic blood pressure 79 mm[Hg] Yusuf POLLARD [facility] 10-01-2023 13:02-0400 Heart rate 67 /min Yusuf POLLARD [facility] 10-01-2023 13:02-0400 Respiratory rate 16 /min Yusuf POLLARD [facility] 10-01-2023 13:02-0400 Systolic blood pressure 118 mm[Hg] Yusuf POLLARD [facility] 07-31-2023 09:01-0400 Body height 182.9 cm Tra Vale Jr., DO Work Phone: [facility] 07-31-2023 09:01-0400 Body mass index (BMI) [Ratio] 33.5 kg/m2 Tra Vale Jr., DO Work Phone: [facility] 07-31-2023 09:01-0400 Body weight 112.04 kg Tra Vale Jr., DO Work Phone: [facility] 07-31-2023 09:01-0400 Diastolic blood pressure 82 mm[Hg] Tra Vale Jr., DO Work Phone: [facility] 07-31-2023 09:01-0400 Heart rate 72 /min Tra Vale Jr., DO Work Phone: [facility] [facility] 07-31-2023 09:01-0400 SaO2% (BldA) [Mass fraction] 98 % Tra Vale Jr., DO Work Phone: [facility] 07-31-2023 09:01-0400 Systolic blood pressure 116 mm[Hg] Tra Vale Michael, DO Work Phone: [facility] [employer] [facility] 01-23-2023 08:58-0400 Body height 182.9 cm Tra Zamancami Vidales, DO Work Phone: [facility] [employer] [facility] 01-23-2023 08:58-0400 Body mass index (BMI) [Ratio] 33.52 kg/m2 Tra Zamancami Vidales, DO Work Phone: [facility] 01-23-2023 08:58-0400 Body temperature 97.81 [degF] Tra Vale , DO Work Phone: [facility] 01-23-2023 08:58-0400 Body weight 112.1 kg Tra Vale Michael, DO Work Phone: [facility] 01-23-2023 08:58-0400 Diastolic blood pressure 80 mm[Hg] Tra Vale Jr., DO Work Phone: [facility] 01-23-2023 08:58-0400 Heart rate 66 /min Tra Carlozneliacami Vidales, DO Work Phone: [facility] 01-23-2023 08:58-0400 SaO2% (BldA) [Mass fraction] 99 % Tra Ela , DO Work Phone: [facility] 01-23-2023 08:58-0400 Systolic blood pressure 122 mm[Hg] Tra Vale Jr., DO Work Phone: [facility] 07-25-2022 08:41-0400 Body height 182.9 cm Tra Vale Jr., DO Work Phone: [facility] 07-25-2022 08:41-0400 Body mass index (BMI) [Ratio] 33.53 kg/m2 Tra Vale Jr., DO Work Phone: [facility] [facility] 07-25-2022 08:41-0400 Body weight 112.13 kg Tra Vale Jr., DO Work Phone: [employer] 07-25-2022 08:41-0400 Diastolic blood pressure 76 mm[Hg] Tra Vale Jr., DO Work Phone: [employer] 07-25-2022 08:41-0400 Heart rate 64 /min Tra Vale Jr., DO Work Phone: [employer] 07-25-2022 08:41-0400 Respiratory rate 18 /min Tra Vale Jr., DO Work Phone: [employer] 07-25-2022 08:41-0400 SaO2% (BldA) [Mass fraction] 99 % Tra Vale Jr., DO Work Phone: [employer] 07-25-2022 08:41-0400 Systolic blood pressure 108 mm[Hg] Tra Vale Jr., DO Work Phone: [employer] 06-17-2022 12:30-0400 Body height 180.34 cm Tania Neal Other [employer] Other 06-17-2022 12:30-0400 Body mass index (BMI) [Ratio] 33.47 kg/m2 Tania Ocasiomond Other [employer] Other 06-17-2022 12:30-0400 Body weight 108.86 kg Tania Ocasiomond Other [employer] Other 06-17-2022 12:30-0400 Diastolic blood pressure 90 mm[Hg] Tania Ocasiomond Other [employer] Other 06-17-2022 12:30-0400 Respiratory rate 18 /min Tania Ocasiomond Other [employer] Other 06-17-2022 12:30-0400 SaO2% (BldA) [Mass fraction] 99 % Tania Neal Other [employer] Other 06-17-2022 12:30-0400 Systolic blood pressure 150 mm[Hg] Tania Neal Other [employer] Other 01-10-2022 08:38-0400 Body height 182.9 cm Tra Vale Jr., DO Work Phone: [employer] 01-10-2022 08:38-0400 Body mass index (BMI) [Ratio] 36.21 kg/m2 Tra Vale Jr., DO Work Phone: [employer] 01-10-2022 08:38-0400 Body temperature 98.01 [degF] Tra Vale Jr., DO Work Phone: [employer] 01-10-2022 08:38-0400 Body weight 121.11 kg Tra Vale Jr., DO Work Phone: [employer] 01-10-2022 08:38-0400 Diastolic blood pressure 78 mm[Hg] Tra Vale Jr., DO Work Phone: [employer] 01-10-2022 08:38-0400 Heart rate 71 /min Tra Vale Jr., DO Work Phone: [employer] 01-10-2022 08:38-0400 SaO2% (BldA) [Mass fraction] 98 % Tra Vale Jr., DO Work Phone: [employer] 01-10-2022 08:38-0400 Systolic blood pressure 116 mm[Hg] Tra Vale Jr., DO Work Phone: [employer] 07-12-2021 08:11-0400 Body height 182.9 cm Tra Vale Jr., DO Work Phone: [employer] 07-12-2021 08:11-0400 Body mass index (BMI) [Ratio] 38.52 kg/m2 Tra Vale Jr., DO Work Phone: [facility] 07-12-2021 08:11-0400 Body temperature 98.01 [degF] Tra Vale Jr., DO Work Phone: [facility] 07-12-2021 08:11-0400 Body weight 128.82 kg Tra Vale Jr., DO Work Phone: [facility] 07-12-2021 08:11-0400 Diastolic blood pressure 76 mm[Hg] Tra Vale Jr., DO Work Phone: [facility] 07-12-2021 08:11-0400 Heart rate 70 /min Tra Hollandneliacami Vidales, DO Work Phone: [facility] 07-12-2021 08:11-0400 SaO2% (BldA) [Mass fraction] 97 % Tra Vale Jr., DO Work Phone: [facility] 07-12-2021 08:11-0400 Systolic blood pressure 126 mm[Hg] Tra Vale Jr., DO Work Phone: [facility] 07-13-2020 08:01-0400 BMI (Body Mass Index) 38.52 kg/m2 [facility] 07-13-2020 08:01-0400 Body Temperature 97.9 [degF] [facility] 07-13-2020 08:01-0400 Body weight 128.82 kg [facility] [employer] [facility] 07-13-2020 08:01-0400 BP Diastolic 84 mm[Hg] [facility] [employer] [facility] 07-13-2020 08:01-0400 BP Systolic 126 mm[Hg] [facility] [employer] [facility] 07-13-2020 08:01-0400 Height 182.9 cm [facility] [employer] [facility] 07-13-2020 08:01-0400 Pulse (Heart Rate) 71 /min [facility] 07-13-2020 08:01-0400 Pulse Oximetry 97 % [facility] 01-13-2020 08:05-0400 BMI (Body Mass Index) 43.81 kg/m2 [facility] 01-13-2020 08:05-0400 Body Temperature 97 [degF] [facility] 01-13-2020 08:05-0400 Body weight 146.51 kg [facility] 01-13-2020 08:05-0400 BP Diastolic 80 mm[Hg] [facility] 01-13-2020 08:05-0400 BP Systolic 130 mm[Hg] [facility] 01-13-2020 08:05-0400 Height 182.9 cm [facility] 09-09-2019 08:21-0400 BMI (Body Mass Index) 43.81 kg/m2 [facility] 09-09-2019 08:21-0400 Body Temperature 97.81 [degF] [facility] 09-09-2019 08:21-0400 Body weight 146.51 kg [facility] 09-09-2019 08:21-0400 BP Diastolic 80 mm[Hg] [facility] 09-09-2019 08:21-0400 BP Systolic 138 mm[Hg] [facility] 09-09-2019 08:21-0400 Height 182.9 cm [facility] 09-09-2019 08:21-0400 Pulse (Heart Rate) 83 /min [facility] 09-09-2019 08:21-0400 Pulse Oximetry 98 % [facility] 05-06-2019 09:12-0500 BMI (Body Mass Index) 42.72 kg/m2 [facility] 05-06-2019 09:12-0500 Body Temperature 98.01 [degF] [facility] 05-06-2019 09:12-0500 Body weight 142.88 kg [facility] 05-06-2019 09:12-0500 BP Diastolic 86 mm[Hg] [facility] 05-06-2019 09:12-0500 BP Systolic 154 mm[Hg] [facility] 05-06-2019 09:12-0500 Height 182.9 cm [facility] 05-06-2019 09:12-0500 Pulse (Heart Rate) 85 /min [facility] 05-06-2019 09:12-0500 Pulse Oximetry 97 % [facility] 01-07-2019 09:14-0400 BMI (Body Mass Index) 42.72 kg/m2 [facility] 01-07-2019 09:14-0400 Body Temperature 98.01 [degF] [facility] 01-07-2019 09:14-0400 Body weight 142.88 kg [facility] 01-07-2019 09:14-0400 BP Diastolic 88 mm[Hg] [facility] 01-07-2019 09:14-0400 BP Systolic 132 mm[Hg] [facility] 01-07-2019 09:14-0400 Height 182.9 cm [facility] 01-07-2019 09:14-0400 Pulse (Heart Rate) 76 /min [facility] 01-07-2019 09:14-0400 Pulse Oximetry 97 % [facility] 09-03-2018 11:29-0400 BMI (Body Mass Index) 42.83 kg/m2 [facility] 09-03-2018 11:29-0400 Body Temperature 98.01 [degF] [facility] 09-03-2018 11:29-0400 BP Diastolic 88 mm[Hg] [facility] 09-03-2018 11:29-0400 BP Systolic 132 mm[Hg] [facility] 09-03-2018 11:29-0400 Height 182.9 cm [facility] 09-03-2018 11:29-0400 Pulse (Heart Rate) 72 /min [facility] 09-03-2018 11:29-0400 Pulse Oximetry 97 % [facility] 09-03-2018 11:29-0400 Weight 143.25 kg [facility] 05-03-2018 11:51-0500 BMI (Body Mass Index) 40.01 kg/m2 [facility] Work Phone: 05-03-2018 11:51-0500 Body Temperature 98.01 [degF] [facility] Work Phone: 05-03-2018 11:51-0500 BP Diastolic 80 mm[Hg] [facility] Work Phone: 05-03-2018 11:51-0500 BP Systolic 132 mm[Hg] [facility] Work Phone: 05-03-2018 11:51-0500 Height 182.9 cm [facility] Work Phone: 05-03-2018 11:51-0500 Pulse (Heart Rate) 89 /min [facility] Work Phone: 05-03-2018 11:51-0500 Pulse Oximetry 97 % [facility] Work Phone: 05-03-2018 11:51-0500 Weight 133.81 kg [facility] Work Phone: 03-29-2018 07:14-0500 Body Temperature 98.01 [degF] [facility] Work Phone: 03-29-2018 07:14-0500 BP Diastolic 84 mm[Hg] [facility] Work Phone: 03-29-2018 07:14-0500 BP Systolic 136 mm[Hg] [facility] Work Phone: 03-29-2018 07:14-0500 Height 182.9 cm [facility] Work Phone: 03-29-2018 07:14-0500 Pulse (Heart Rate) 80 /min [facility] Work Phone: 03-29-2018 07:14-0500 Pulse Oximetry 96 % [facility] Work Phone: Encounters Encounter Date Encounter Type Care Provider Facility Start: 03-20-2024 ambulatory Rodrigo Brink Facility :[facility] [place] Start: 02-12-2024 ambulatory Rodrigo Brink Facility : [facility] [place] Start: 02-05-2024 End: 02-05-2024 ambulatory Rodrigo Brink Facility:[facility] [place] Start: 01-28-2024 End: 01-28-2024 ambulatory Rodrigo Brink Facility: [facility] [place] Start: 01-17-2024 ambulatory Rodrigo Brink Facility :[id number] Start: 01-07-2024 End: 01-07-2024 ambulatory Rodrigo Brink Facility: [facility] [place] Start: 12-25-2023 End: 12-25-2023 ambulatory Rodrigo Brink Facility: [facility] [place] Start: 10-01-2023 End: 10-01-2023 ambulatory Yusuf POLLARD Facility: [place] Start: 10-01-2023 End: 10-01-2023 Patient encounter procedure Yusuf POLLARD [facility] [place] Start: 09-20-2023 End: 09-20-2023 ambulatory Rodrigo Brink Facility: [facility] [place] Start: 08-16-2023 End: 08-16-2023 ambulatory Rodrigo Brink Facility: [facility] [place] Start: 07-31-2023 ambulatory SELF SELF [facility] Start: 07-31-2023 End: 07-31-2023 Office outpatient visit 25 minutes Tra Vale DO Work Phone: [facility] Comment on above: Psoriatic arthritis [...] anemia; Psoriasis; Plaque psoriasis; Hyperchromic anemia; 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, 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, 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; Long-term current use of high risk medication other than anticoagulant; History of psoriatic arthritis; History of kidney stones; Abnormal renal function test; Vitamin D deficiency; Psoriatic spondylitis; 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 Start: 07-03-2023 End: 07-03-2023 ambulatory Rodrigo Brink [facility] Start: 07-03-2023 End: 07-03-2023 Patient encounter procedure Rodrigo Brink [facility] Start: 05-17-2023 End: 05-17-2023 ambulatory Rodrigo Brink Facility:[facility] [place] Start: 04-06-2023 End: 04-06-2023 ambulatory Yusuf POLLARD Facility: [place] Start: 03-12-2023 End: 03-12-2023 ambulatory Rodrigo Brink Facility:[facility] [place] Start: 03-05-2023 End: 03-05-2023 ambulatory Rodrigo Brink Facility:[facility] [place] Start: 02-15-2023 End: 02-15-2023 ambulatory Rodrigo Brink Facility:[facility] [place] Start: 01-23-2023 ambulatory RODRIGO LUZ [facility] Start: 01-23-2023 End: 01-23-2023 Office outpatient visit 15 minutes Tra Vale DO Work Phone: [facility] Comment on above: Psoriatic arthritis (Primary Dx); 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; Psoriatic spondylitis; Plaque psoriasis; Psoriasis; SAPHO syndrome; History of kidney stones; History of psoriatic arthritis; Long-term current use of high risk medication other than anticoagulant; 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 Facility: Start: 07-29-2022 End: 07-30-[address] RODRIGO LUZ . Facility:[facility] Start: 07-25-2022 End: 07-26-2022 ambulatory NARENDRANATH LAKSHMIPATHY . 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; Psoriatic spondylitis; Macrocytic anemia; Plaque psoriasis; Psoriasis; SAPHO syndrome; History of kidney stones; History of psoriatic arthritis; USP current use of non-steroidal anti-inflammatories (NSAID); Long-term current use of high risk medication other than anticoagulant; Methotrexate, 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, current use; Abnormal renal function test; Vitamin [...] osteoarthritis of both knees Start: 07-21-2022 ambulatory [facility] Start: 07-20-2022 End: 07-21-2022 ambulatory [facility] Facility:[facility] Start: 06-17-2022 End: 06-17-2022 ambulatory Tania Neal Other [employer] Other Start: 06-17-2022 Office outpatient ne w 20 minutes Tania Neal [facility] Start: 06-13-2022 End: 06-14-2022 ambulatory AMI DURAND . Facility:[facility] Start: 05-23-2022 End: 05-24-2022 ambulatory [facility] Start: 04-10-2022 End: 05-30-2022 ambulatory FRACISCO ARCHULETA . Facility:[facility] Start: 03-22-2022 ambulatory RODRIGO [facility] Start: 03-21-2022 End: 03-22-2022 ambulatory ELEN CHEN Facility:[facility] Start: 03-08-2022 End: 03-08-[address] RODRIGO LUZ . Facility:[facility] Start: 02-27-2022 End: 03-08-[address] RODRIGO LUZ . Facility:[facility] Start: 02-16-2022 End: 02-17-[address] PAXTON SOLANO . 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; Psoriatic spondylitis; Plaque psoriasis; Psoriasis; SAPHO syndrome; History of psoriatic arthritis; 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); Long-term current use of high risk medication other than anticoagulant; 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, 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, 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; Vitamin D deficiency Start: 11-24-2021 [...] Start: 07-12-2021 ambulatory TRA VALE [facility] Start: 07-12-2021 End: 07-12-2021 Office outpatient visit 15 minutes Tra Vale DO Work Phone: [facility] Comment on above: Psoriatic arthropath y of distal interphalangeal (DIP) joint (Primary Dx); Psoriatic arthritis; Psoriatic spondylitis; Psoriasis; Plaque psoriasis; Anemia, unspecified type; Methotrexate, 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, current use; Long-term current use of high risk medication other than anticoagulant; USP current use of systemic steroids; USP current use of non-steroidal anti-inflammatories (NSAID); History [...] 25 minutes Tra Vale Work Phone: [facility] [employer] [employer] Comment on above: Psoriatic arthritis (Primary Dx); 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; Psoriatic spondylitis; Psoriasis; SAPHO syndrome; History of psoriatic arthritis; 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); 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, 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, 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; Long-term current use of high [...] Start: 07-05-2020 End: 07-06-2020 ambulatory PILI ALLAN Facility:[facility] Start: 01-13-2020 End: 01-13-2020 Office outpatient visit 25 minutes Tra Vale Work Phone: [facility] Comment on above: Psoriatic arthritis (Primary Dx); Psoriasis; Plaque psoriasis; Methotrexate, 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, current use; Long-term current use of high risk medication other than anticoagulant; 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 [...] visit 25 minutes Tra Vale Work Phone: [employer] Comment on above: Psoriatic arthritis (Primary Dx); 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; Psoriatic spondylitis; Psoriasis; SAPHO syndrome; History of psoriatic arthritis; 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); Methotrexate, 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, current use; Long-term current use of high [...] visit 25 minutes Tra Vale Work Phone: [employer] Comment on above: Psoriatic arthritis (Primary Dx); 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; Psoriatic spondylitis; SAPHO syndrome; Anemia, unspecified type; History of psoriatic arthritis; USP current use of non-steroidal anti-inflammatories (NSAID); USP current use of systemic steroids; Long-term current use of high risk medication other than anticoagulant; Methotrexate, 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, current use; Vitamin D deficiency; DDD (degenerative [...] End: 01-10-2019 Patient encounter procedure Other Other [facility] [employer] Start: 01-10-2019 End: 01-10-2019 Telephone encounter Seda Bonilla [employer] [facility] Comment on above: Insurance ([place] 0.05%) Start: 01-07-2019 End: 01-07-2019 Refill Juju Green [facility] Comment on above: Psoriatic arthritis; Psoriatic spondylitis; Psoriasis; Plaque psoriasis; Anemia, unspecified type; Methotrexate, 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, current use; Long-term current use of high risk medication other than anticoagulant; USP current use of systemic steroids; 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 [...] visit 25 minutes Tra Vale Work Phone: [facility] Comment on above: Psoriatic arthritis (Primary Dx); Psoriatic spondylitis; Psoriasis; Plaque psoriasis; Anemia, unspecified type; Methotrexate, 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, current use; Long-term current use of high risk medication other than anticoagulant; USP current use of systemic steroids; 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 [...] 11-08-2018 Outside Orders Tra Vale Work Phone: [facility] Start: 11-06-2018 End: 11-06-2018 Outside Orders Tra Vale Work Phone: [facility] Start: 11-05-2018 End: 11-05-2018 Outside Orders Tra Vale Work Phone: [facility] Start: 09-04-2018 End: 09-04-2018 Telephone encounter Juju Green [facility] Comment on above: Results Start: 09-03-2018 End: 09-03-2018 Orders Only Tra Vale [facility] Comment on above: Vitamin D deficiency (Primary Dx) Start: 09-03-2018 End: 09-03-2018 Office outpatient visit 25 minutes Tra Vale [facility] Comment on above: Psoriatic arthritis (Primary Dx); 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; Psoriatic spondylitis; History of psoriatic arthritis; 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); 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; Long-term current use of high risk medication other than anticoagulant; 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, 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, 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; Noncompliance; Patient non adherence; Vitamin [...] End: 07-01-2018 Patient encounter procedure Other Other [facility] Start: 05-29-2018 End: 05-29-2018 Patient encounter procedure Juju [facility] Comment on above: Psoriatic arthritis; 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; Psoriatic spondylitis; SAPHO syndrome; Psoriasis; Anemia, unspecified type; USP current use of non-steroidal anti-inflammatories (NSAID); 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; 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, 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, 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; Long-term current use of high [...] End: 05-28-2018 Patient encounter procedure Other Other [facility] Start: 05-24-2018 End: 05-24-2018 Patient encounter procedure Other Other [facility] Start: 05-15-2018 End: 05-15-2018 Patient encounter procedure Tra Vale Work Phone: [facility] Start: 05-07-2018 End: 05-07-2018 Telephone encounter Kamran Kerri Orlando Work Phone: [facility] Comment on above: Referral Start: 05-06-2018 End: 05-06-2018 Telephone encounter Kenyetta Cholo [facility] Comment on above: Referral Start: 05-03-2018 End: 05-03-2018 Office outpatient visit 40 minutes Tra Vale Work Phone: [facility] Comment on above: Psoriatic arthritis (Primary Dx); 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; Psoriatic spondylitis; SAPHO syndrome; Psoriasis; Anemia, unspecified type; 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); 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; 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, 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, 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; Long-term current use of high risk medication other than anticoagulant; Vitamin D deficiency Start: 04-19-2018 End: 04-19-2018 Telephone encounter Seda [employer] [facility] Comment on above: Insurance ([employer] ) Start: 04-17-2018 End: 04-17-2018 Telephone encounter Tra Vale Work Phone: [facility] [employer] [facility] Comment on above: Medication Managemen t Start: 04-16-2018 End: 04-16-2018 Telephone encounter [employer] [facility] Comment on above: Insurance ([employer] ) Start: 04-05-2018 End: 04-05-2018 Patient encounter procedure Tra Vale Work Phone: [facility] [facility] Start: 04-04-2018 End: 04-04-2018 Patient encounter procedure Tra Vale Work Phone: [facility] Start: 04-03-2018 End: 04-03-2018 Patient encounter procedure Juju Green [facility] Comment on above: Results Start: 04-01-2018 End: 04-01-2018 Patient encounter procedure Tra Hollandkaya Work Phone: [facility] Comment on above: Vitamin D deficiency (Primary Dx) Start: 03-29-2018 Patient encounter status Tra Hollandkaya Vidales, DO Work Phone: [facility] Start: 03-29-2018 End: 03-29-2018 Office outpatient new 60 minutes Tra Vasquez Ela Work Phone: [facility] Comment on above: Psoriatic arthritis (Primary Dx); 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; Psoriatic spondylitis; SAPHO syndrome; Psoriasis; Fatigue, unspecified type; History of psoriatic arthritis; USP current use of non-steroidal anti-inflammatories (NSAID); USP current use of systemic steroids; 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, 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, 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; Long-term current use of high risk medication other than anticoagulant Procedures Date Procedure Procedure Detail Performing Clinician Start: 07-05-2020 ANESTH REPAIR OF HERNIA DANIELA MILIAN Start: 07-05-2020 RPR VENTRAL DIGNA INI T REDUC EDMUNDTEOFILO ALLAN Start: 11-04-2018 LABS (OUTSIDE) Tra Vasquez Ela Work Phone: Start: 05-13-2018 ORDERS (OUTSIDE) Tra Pedro Ela Work Phone: Start: 04-04-2018 End: 04-04-2018 LABS (OUTSIDE) Tra Pedro Ela Work Phone: Start: 03-29-2018 End: 03-29-2018 LABS (OUTSIDE) Tra Vale Work Phone: Appendectomy Yakelin Jack Comment on above: 1999 Coronary artery bypa ss graft operation planned Yakelin Jack Comment on above: 2003 Inguinal hernia (disorder) J catie Jack Comment on above: repair 2004 Plan of Treatment Date Care Activity Detail Author Start: 11-14-2029 Tetanus vaccination TETANUS [facility] Start: 01-29-2024 End: 01-29-2024 Patient encounter procedure 01/29/2024 11:00 AM EDT Office Visit [facility] [address] [place] [address] Tra Vale Jr., [address] [place] [address] [facility] Start: 01-15-2024 End: 07-30-2024 VITAMIN D [...] anemia Psoriasis Plaque psoriasis Hyperchromic anemia Methotrexate, 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, current use Long-term current use of high risk medication other than anticoagulant History of psoriatic arthritis History of kidney stones Abnormal renal function test Vitamin D deficiency 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 Expected: 01/15/2024 (Approximate), Expires: 07/30/2024 [facility] Comment on above: Expected: 01/15/2024 (Approximate), Expi [...] anemia Psoriasis Plaque psoriasis Hyperchromic anemia 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, 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, 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 Long-term current use of high risk medication other than anticoagulant History of psoriatic arthritis History of kidney stones Abnormal renal function test Vitamin D deficiency 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 Expected: 01/15/2024 (Approximate), Expires: 07/30/2024 [facility] Comment on above: Expected: 01/15/2024 (Approximate), Expi res: 07/30/2024 Start: 12-02-2023 Influenza vaccination INFLUENZA VACCINE (Season Ended) [facility] Start: 07-31-2023 End: 07-30-2024 VITAMIN D (25-HYDROXY,TOTAL) [...] anemia Psoriasis Plaque psoriasis Hyperchromic anemia 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, 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, 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 Long-term current use of high risk medication other than anticoagulant History of psoriatic arthritis History of kidney stones Abnormal renal function test Vitamin D deficiency 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 Expected: 07/31/2023, Expires: 07/30/2024 [facility] Comment on above: Expected: 07/31/2023, Expires: Start: [...] anemia Psoriasis Plaque psoriasis Hyperchromic anemia 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, 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, 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 Long-term current use of high risk medication other than anticoagulant History of psoriatic arthritis History of kidney stones Abnormal renal function test Vitamin D deficiency 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 Expected: 07/31/2023, Expires: 07/30/2024 [facility] Comment on above: Expected: 07/31/2023, Expires: Start: 07-31-2023 End: 07-31-2023 Patient encounter procedure 07/31/2023 9:00 AM EDT Office Visit [facility] Rheumatology [address] [place] [id number] Ela Vidales, Tra Vasquez, DO [address] [place] [address] [facility] Start: 07-11-2023 End: 01-24-2024 VITAMIN D (25-HYDROXY,TOTAL) VITAMIN D (25-HYDROXY,TOTAL) Lab Routine Psoriatic arthritis 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 Psoriatic spondylitis Plaque psoriasis Psoriasis SAPHO syndrome History of kidney stones History of psoriatic arthritis Long-term current use of high risk medication other than anticoagulant 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, 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, 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 Vitamin D deficiency DDD (degenerative [...] both knees Expected: 07/11/2023 (Approximate), Expires: 01/24/2024 [facility] Comment on above: Expected: 07/11/2023 (Approximate), Expi res: 01/24/2024 Start: 07-11-2023 End: 01-24-2024 VITAMIN D, (1,25 DIHYDROXY) VITAMIN D, (1,25 DIHYDROXY) Lab Routine Psoriatic arthritis 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 Psoriatic spondylitis Plaque psoriasis Psoriasis SAPHO syndrome History of kidney stones History of psoriatic arthritis Long-term current use of high risk medication other than anticoagulant 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, 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, 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 Vitamin D deficiency DDD (degenerative [...] both knees Expected: 07/11/2023 (Approximate), Expires: [facility]/2024 [facility] Comment on above: Expected: 07/11/2023 (Approximate), Expi res: 01/24/2024 Start: 01-23-2023 End: 01-23-2023 Patient encounter procedure 01/23/2023 Office Visit Rheumatology Ela Vidales, Tra Vasquez, DO [address] [place] [address] [facility] Start: 01-19-2023 End: 07-26-2023 VITAMIN D (25-HYDROXY,TOTAL) VITAMIN D (25-HYDROXY,TOTAL) Lab Routine Psoriatic arthritis 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 Psoriatic spondylitis Macrocytic anemia Plaque psoriasis Psoriasis SAPHO syndrome History of kidney stones 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) Long-term current use of high risk medication other than anticoagulant 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, 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, 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 Abnormal renal function test Vitamin [...] both knees Expected: 01/19/2023 (Approximate), Expires: 07/26/2023 [employer] Comment on above: Expected: 01/19/2023 (Approximate), Expi res: 07/26/2023 Start: 01-19-2023 End: 07-26-2023 VITAMIN D, (1,25 DIHYDROXY) VITAMIN D, (1,25 DIHYDROXY) Lab Routine Psoriatic arthritis 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 Psoriatic spondylitis Macrocytic anemia Plaque psoriasis Psoriasis SAPHO syndrome History of kidney stones 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) Long-term current use of high risk medication other than anticoagulant 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, 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, 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 Abnormal renal function test Vitamin [...] both knees Expected: 01/19/2023 (Approximate), Expires: 07/26/2023 [facility] Comment on above: Expected: 01/19/2023 (Approximate), Expi res: 07/26/2023 Start: 12-01-2022 COVID-19 VACCINE () COVID-19 VACCINE () [facility] Start: 12-01-2022 Influenza vaccination [facility] Start: 08-10-2022 End: 07-26-2023 Urea nitrogen [Mass/volume] in Serum or Plasma BUN Lab Routine Psoriatic arthritis 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 Psoriatic spondylitis Macrocytic anemia Plaque psoriasis Psoriasis SAPHO syndrome History of kidney stones History of psoriatic arthritis USP current use of non-steroidal anti-inflammatories (NSAID) Long-term current use of high risk medication other than anticoagulant Methotrexate, 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, current use Abnormal renal function test Vitamin [...] both knees Expected: 08/10/2022 (Approximate), Expires: 07/26/2023 [facility] Comment on above: Expected: 08/10/2022 (Approximate), Expi res: 07/26/2023 Start: 08-10-2022 End: 07-26-2023 Urinalysis dipstick W Reflex Microscopic panel - Urine URINE MICROSCOPIC Fluids Routine Psoriatic arthritis 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 Psoriatic spondylitis Macrocytic anemia Plaque psoriasis Psoriasis SAPHO syndrome History of kidney stones History of psoriatic arthritis USP current use of non-steroidal anti-inflammatories (NSAID) Long-term current use of high risk medication other than anticoagulant 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, 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, 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 Abnormal renal function test Vitamin [...] both knees Expected: 08/10/2022 (Approximate), Expires: 07/26/2023 [employer] Comment on above: Expected: 08/10/2022 (Approximate), Expi res: 07/26/2023 Start: 08-10-2022 End: 07-26-2023 Urinalysis, reagent strip without microscopy URINALYSIS, MACRO Fluids Routine Psoriatic arthritis 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 Psoriatic spondylitis Macrocytic anemia Plaque psoriasis Psoriasis SAPHO syndrome History of kidney stones History of psoriatic arthritis USP current use of non-steroidal anti-inflammatories (NSAID) Long-term current use of high risk medication other than anticoagulant Methotrexate, 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, current use Abnormal renal function test Vitamin [...] both knees Expected: 08/10/2022 (Approximate), Expires: 07/26/2023 [employer] Comment on above: Expected: 08/10/2022 (Approximate), Expi res: 07/26/2023 Start: 07-25-2022 End: 04-25-2023 Patient encounter procedure 07/25/2022 Office Visit Rheumatology Tra Vale Jr., DO [address] [facility] [place] [id number] [facility] Start: 01-10-2022 End: 01-10-2023 VITAMIN D, (1,25 DIHYDROXY) [facility] Comment on above: Expected: 01/10/2022 (Approximate), Expi res: 01/10/2023 Start: 01-10-2022 End: 01-10-2022 Patient encounter procedure 01/10/2022 Office Visit Rheumatology Tra Vale Jr., DO [address] [facility] [place] [phone] [facility] Start: 12-01-2021 Influenza vaccination [facility] Start: 07-12-2021 End: 07-12-2022 VITAMIN D, (1,25 DIHYDROXY) [facility] Comment on above: Expected: 07/12/2021 (Approximate), Expi res: 07/12/2022 Start: 01-11-2021 End: 01-11-2021 Office Visit 01/11/2021 Office Visit Rheumatology Tra Vale Jr., DO [address] [facility] [place] [phone] [facility] Start: 12-01-2020 Influenza vaccination INFLUENZA VACCINE (Season Ended) [facility] Start: 11-02-2020 COVID-19 VACCINE (3 - Booster for Pfizer series) COVID-19 VACCINE (3 - Booster for Pfizer series) [facility] Start: 07-13-2020 End: 07-13-2020 Office Visit 07/13/2020 Office Visit Rheumatology Tra Vale Jr., DO [address] [facility] [place] [phone] [facility] Start: 02-11-2020 End: 09-08-2020 VITAMIN D (25-HYDROXY,TOTAL) VITAMIN D (25-HYDROXY,TOTAL) Lab Routine Psoriatic arthritis 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 Psoriatic spondylitis Psoriasis SAPHO syndrome 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, 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, current use Long-term current use of high [...] Plaque psoriasis Expected: 02/11/2020 (Approximate), Expires: 09/08/2020 [employer] Comment on above: Expected: 02/11/2020 (Approximate), Expi res: 09/08/2020 Start: 02-11-2020 End: 09-08-2020 VITAMIN D, (1,25 DIHYDROXY) VITAMIN D, (1,25 DIHYDROXY) Lab Routine Psoriatic arthritis 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 Psoriatic spondylitis Psoriasis SAPHO syndrome 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, 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, 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 Long-term current use of high [...] Plaque psoriasis Expected: 02/11/2020 (Approximate), Expires: 09/08/2020 [employer] Comment on above: Expected: 02/11/2020 (Approximate), Expi res: 09/08/2020 Start: 01-13-2020 End: 01-13-2020 Office Visit 01/13/2020 Office Visit Rheumatology Ela Vidales, Tra Vasquez, DO [address] [place] [phone] [facility] Start: 12-02-2019 Influenza vaccination [employer] Start: 09-09-2019 End: 09-09-2019 Office Visit 09/09/2019 Office Visit Rheumatology Ela Vidales, Tra Vasquez, [address] [place] [phone] [facility] Start: 09-04-2019 End: 05-06-2020 VITAMIN D (25-HYDROXY,TOTAL) VITAMIN D (25-HYDROXY,TOTAL) Lab Routine Psoriatic arthritis 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 Anemia, unspecified type History of psoriatic arthritis USP current use of non-steroidal anti-inflammatories (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 Long-term current use of high risk medication other than anticoagulant 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, 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, 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 Vitamin D deficiency DDD (degenerative [...] psoriasis Psoriasis Expected: 09/04/2019 (Approximate), Expires: 05/06/2020 [employer] Comment on above: Expected: 09/04/2019 (Approximate), Expi res: 05/06/2020 Start: 09-04-2019 End: 05-06-2020 VITAMIN D, (1,25 DIHYDROXY) VITAMIN D, (1,25 DIHYDROXY) Lab Routine Psoriatic arthritis 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 Anemia, unspecified type 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) USP current use of systemic steroids Long-term current use of high risk medication other than anticoagulant 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, 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, 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 Vitamin D deficiency DDD (degenerative [...] psoriasis Psoriasis Expected: 09/04/2019 (Approximate), Expires: 05/06/2020 [employer] Comment on above: Expected: 09/04/2019 (Approximate), Expi res: 05/06/2020 Start: 05-06-2019 End: 05-06-2019 Office Visit 05/06/2019 [facility], Tra Vasquez, [address] [place] [phone] [facility] Start: 03-29-2019 End: 03-29-2019 JOVAN MULTIPLEX SCRN WITH REFLEX JOVAN MULTIPLEX SCRN WITH REFLEX Routine Psoriatic arthritis 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 Psoriasis Fatigue, unspecified type History of psoriatic arthritis USP current use of non-steroidal anti-inflammatories (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, 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, current use Long-term current use of high risk medication other than anticoagulant Lumbosacral spondylosis without myelopathy Disorder of bone and cartilage Plaque psoriasis Cervicalgia Dorsalgia Chronic pain of both shoulders Bilateral elbow joint pain Bilateral wrist pain Bilateral hand pain Chronic pain of both knees Expected: 03/29/2019 (Approximate), Expires: 03/29/2019 [facility] Work Phone: Comment on above: Expected: 03/29/2019 (Approximate), Expi res: 03/29/2019 Start: 03-29-2019 End: 03-29-2019 ANCA INIT SCRN (ANCA, PR3AB, MPO) ANCA INIT SCRN (ANCA, PR3AB, MPO) Routine Psoriatic arthritis 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 Psoriasis Fatigue, unspecified type History of psoriatic arthritis USP current use of non-steroidal anti-inflammatories (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, 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, 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 Long-term current use of high risk medication other than anticoagulant Lumbosacral spondylosis without myelopathy Disorder of bone and cartilage Plaque psoriasis Cervicalgia Dorsalgia Chronic pain of both shoulders Bilateral elbow joint pain Bilateral wrist pain Bilateral hand pain Chronic pain of both knees Expected: 03/29/2019 (Approximate), Expires: 03/29/2019 [facility] Work Phone: Comment on above: Expected: 03/29/2019 (Approximate), Expi res: 03/29/2019 Start: 03-29-2019 End: 03-29-2019 ANGIOTENSIN CONVERTING ENZYME ANGIOTENSIN CONVERTING ENZYME Routine Psoriatic arthritis 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 Psoriasis Fatigue, unspecified type History of psoriatic arthritis USP current use of non-steroidal anti-inflammatories (NSAID) USP current use of 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, 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, current use Long-term current use of high risk medication other than anticoagulant Lumbosacral spondylosis without myelopathy Disorder of bone and cartilage Plaque psoriasis Cervicalgia Dorsalgia Chronic pain of both shoulders Bilateral elbow joint pain Bilateral wrist pain Bilateral hand pain Chronic pain of both knees Expected: 03/29/2019 (Approximate), Expires: 03/29/2019 [facility] Work Phone: Comment on above: Expected: 03/29/2019 (Approximate), Expi res: 03/29/2019 Start: 03-29-2019 End: 03-29-2019 CBC,PLATELETS CBC,PLATELETS Routine Psoria tic arthritis 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 Psoriasis Fatigue, unspecified type History of psoriatic arthritis USP current use of non-steroidal anti-inflammatories (NSAID) USP current use of 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, 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, 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 Long-term current use of high risk medication other than anticoagulant Lumbosacral spondylosis without myelopathy Disorder of bone and cartilage Plaque psoriasis Cervicalgia Dorsalgia Chronic pain of both shoulders Bilateral elbow joint pain Bilateral wrist pain Bilateral hand pain Chronic pain of both knees Expected: 03/29/2019 (Approximate), Expires: 03/29/2019 [facility] Work Phone: Comment on above: Expected: 03/29/2019 (Approximate), Expi res: 03/29/2019 Start: 03-29-2019 End: 03-29-2019 CK CK Routine Psoriatic arthrit is 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 Psoriasis Fatigue, unspecified type 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) USP current use of 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, 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, current use Long-term current use of high risk medication other than anticoagulant Lumbosacral spondylosis without myelopathy Disorder of bone and cartilage Plaque psoriasis Cervicalgia Dorsalgia Chronic pain of both shoulders Bilateral elbow joint pain Bilateral wrist pain Bilateral hand pain Chronic pain of both knees Expected: 03/29/2019 (Approximate), Expires: 03/29/2019 [facility] Work Phone: Comment on above: Expected: 03/29/2019 (Approximate), Expi res: 03/29/2019 Start: 03-29-2019 End: 03-29-2019 Comprehensive metabolic 2000 panel - Serum or Plasma COMPREHENSIVE METABOLIC PANEL Routine Psoriatic arthritis 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 Psoriasis Fatigue, unspecified type 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) USP current use of 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, 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, current use Long-term current use of high risk medication other than anticoagulant Lumbosacral spondylosis without myelopathy Disorder of bone and cartilage Plaque psoriasis Cervicalgia Dorsalgia Chronic pain of both shoulders Bilateral elbow joint pain Bilateral wrist pain Bilateral hand pain Chronic pain of both knees Expected: 03/29/2019 (Approximate), Expires: 03/29/2019 [facility] Work Phone: Comment on above: Expected: 03/29/2019 (Approximate), Expi res: 03/29/2019 Start: 03-29-2019 End: 03-29-2019 CRP mass conc C REACTIVE PROTEIN Routine Psoriatic arthritis 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 Psoriasis Fatigue, unspecified type 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, 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, 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 Long-term current use of high risk medication other than anticoagulant Lumbosacral spondylosis without myelopathy Disorder of bone and cartilage Plaque psoriasis Cervicalgia Dorsalgia Chronic pain of both shoulders Bilateral elbow joint pain Bilateral wrist pain Bilateral hand pain Chronic pain of both knees Expected: 03/29/2019 (Approximate), Expires: 03/29/2019 [facility] Work Phone: Comment on above: Expected: 03/29/2019 (Approximate), Expi res: 03/29/2019 Start: 03-29-2019 End: 03-29-2019 CYCLIC CITRULLINATE PEPTIDE AB CYCLIC CITRULLINATE PEPTIDE AB Routine Psoriatic arthritis 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 Psoriasis Fatigue, unspecified type 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, 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, 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 Long-term current use of high risk medication other than anticoagulant Lumbosacral spondylosis without myelopathy Disorder of bone and cartilage Plaque psoriasis Cervicalgia Dorsalgia Chronic pain of both shoulders Bilateral elbow joint pain Bilateral wrist pain Bilateral hand pain Chronic pain of both knees Expected: 03/29/2019 (Approximate), Expires: 03/29/2019 [facility] Work Phone: Comment on above: Expected: 03/29/2019 (Approximate), Expi res: 03/29/2019 Start: 03-29-2019 End: 03-29-2019 HEPATITIS A, B, C HEPATITIS A, B, C Routine Psoriatic arthritis 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 Psoriasis Fatigue, unspecified type History of psoriatic arthritis USP current use of non-steroidal anti-inflammatories (NSAID) USP current use of 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, 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, 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 Long-term current use of high risk medication other than anticoagulant Lumbosacral spondylosis without myelopathy Disorder of bone and cartilage Plaque psoriasis Cervicalgia Dorsalgia Chronic pain of both shoulders Bilateral elbow joint pain Bilateral wrist pain Bilateral hand pain Chronic pain of both knees Expected: 03/29/2019 (Approximate), Expires: 03/29/2019 [facility] Work Phone: Comment on above: Expected: 03/29/2019 (Approximate), Expi res: 03/29/2019 Start: 03-29-2019 End: 03-29-2019 HLA-B27 HLA-B27 Routine Psoriatic arthritis 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 Psoriasis Fatigue, unspecified type 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) USP current use of 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, 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, current use Long-term current use of high risk medication other than anticoagulant Lumbosacral spondylosis without myelopathy Disorder of bone and cartilage Plaque psoriasis Cervicalgia Dorsalgia Chronic pain of both shoulders Bilateral elbow joint pain Bilateral wrist pain Bilateral hand pain Chronic pain of both knees Expected: 03/29/2019 (Approximate), Expires: 03/29/2019 [facility] Work Phone: Comment on above: Expected: 03/29/2019 (Approximate), Expi res: 03/29/2019 Start: 03-29-2019 End: 03-29-2019 PATRICK AND PE, SERUM PATRICK AND PE, SERUM Routine Psoriatic arthritis 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 Psoriasis Fatigue, unspecified type 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) USP current use of 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, 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, 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 Long-term current use of high risk medication other than anticoagulant Lumbosacral spondylosis without myelopathy Disorder of bone and cartilage Plaque psoriasis Cervicalgia Dorsalgia Chronic pain of both shoulders Bilateral elbow joint pain Bilateral wrist pain Bilateral hand pain Chronic pain of both knees Expected: 03/29/2019 (Approximate), Expires: 03/29/2019 [facility] Work Phone: Comment on above: Expected: 03/29/2019 (Approximate), Expi res: 03/29/2019 Start: 03-29-2019 End: 03-29-2019 MAGNESIUM MAGNESIUM Routine Psoriatic arthritis 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 Psoriasis Fatigue, unspecified type 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, 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, current use Long-term current use of high risk medication other than anticoagulant Lumbosacral spondylosis without myelopathy Disorder of bone and cartilage Plaque psoriasis Cervicalgia Dorsalgia Chronic pain of both shoulders Bilateral elbow joint pain Bilateral wrist pain Bilateral hand pain Chronic pain of both knees Expected: 03/29/2019 (Approximate), Expires: 03/29/2019 [facility] Work Phone: Comment on above: Expected: 03/29/2019 (Approximate), Expi res: 03/29/2019 Start: 03-29-2019 End: 03-29-2019 RHEUMATOID FACTOR RHEUMATOID FACTOR Routine Psoriatic arthritis 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 Psoriasis Fatigue, unspecified type 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, 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, current use Long-term current use of high risk medication other than anticoagulant Lumbosacral spondylosis without myelopathy Disorder of bone and cartilage Plaque psoriasis Cervicalgia Dorsalgia Chronic pain of both shoulders Bilateral elbow joint pain Bilateral wrist pain Bilateral hand pain Chronic pain of both knees Expected: 03/29/2019 (Approximate), Expires: 03/29/2019 [facility] Work Phone: Comment on above: Expected: 03/29/2019 (Approximate), Expi res: 03/29/2019 Start: 03-29-2019 End: 03-29-2019 SEDIMENTATION RATE, AUTOMATED SEDIMENTATION RATE, AUTOMATED Routine Psoriatic arthritis 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 Psoriasis Fatigue, unspecified type History of psoriatic arthritis USP current use of non-steroidal anti-inflammatories (NSAID) USP current use of 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, 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, current use Long-term current use of high risk medication other than anticoagulant Lumbosacral spondylosis without myelopathy Disorder of bone and cartilage Plaque psoriasis Cervicalgia Dorsalgia Chronic pain of both shoulders Bilateral elbow joint pain Bilateral wrist pain Bilateral hand pain Chronic pain of both knees Expected: 03/29/2019 (Approximate), Expires: 03/29/2019 [facility] Work Phone: Comment on above: Expected: 03/29/2019 (Approximate), Expi res: 03/29/2019 Start: 03-29-2019 End: 03-29-2019 T-TRANSGLUTAMINASE IGA AB T-TRANSGLUTAMINASE IGA AB Routine Psoriatic arthritis 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 Psoriasis Fatigue, unspecified type 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, 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, current use Long-term current use of high risk medication other than anticoagulant Lumbosacral spondylosis without myelopathy Disorder of bone and cartilage Plaque psoriasis Cervicalgia Dorsalgia Chronic pain of both shoulders Bilateral elbow joint pain Bilateral wrist pain Bilateral hand pain Chronic pain of both knees Expected: 03/29/2019 (Approximate), Expires: 03/29/2019 [facility] Work Phone: Comment on above: Expected: 03/29/2019 (Approximate), Expi res: 03/29/2019 Start: 03-29-2019 End: 03-29-2019 TESTOSTERONE TESTOSTERONE Routine Psoriat ic arthritis 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 Psoriasis Fatigue, unspecified type 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, 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, current use Long-term current use of high risk medication other than anticoagulant Lumbosacral spondylosis without myelopathy Disorder of bone and cartilage Plaque psoriasis Cervicalgia Dorsalgia Chronic pain of both shoulders Bilateral elbow joint pain Bilateral wrist pain Bilateral hand pain Chronic pain of both knees Expected: 03/29/2019 (Approximate), Expires: 03/29/2019 [facility] Work Phone: Comment on above: Expected: 03/29/2019 (Approximate), Expi res: 03/29/2019 Start: 03-29-2019 End: 03-29-2019 Thyrotropin Qn TSH Routine Psoriatic arthri tis 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 Psoriasis Fatigue, unspecified type 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) USP current use of 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, 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, current use Long-term current use of high risk medication other than anticoagulant Lumbosacral spondylosis without myelopathy Disorder of bone and cartilage Plaque psoriasis Cervicalgia Dorsalgia Chronic pain of both shoulders Bilateral elbow joint pain Bilateral wrist pain Bilateral hand pain Chronic pain of both knees Expected: 03/29/2019 (Approximate), Expires: 03/29/2019 [facility] Work Phone: Comment on above: Expected: 03/29/2019 (Approximate), Expi res: 03/29/2019 Start: 03-29-2019 End: 03-29-2019 Urate mass conc URIC ACID Routine Psoriatic arthritis 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 Psoriasis Fatigue, unspecified type 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, 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, 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 Long-term current use of high risk medication other than anticoagulant Lumbosacral spondylosis without myelopathy Disorder of bone and cartilage Plaque psoriasis Cervicalgia Dorsalgia Chronic pain of both shoulders Bilateral elbow joint pain Bilateral wrist pain Bilateral hand pain Chronic pain of both knees Expected: 03/29/2019 (Approximate), Expires: 03/29/2019 [facility] Work Phone: Comment on above: Expected: 03/29/2019 (Approximate), Expi res: 03/29/2019 Start: 03-29-2019 End: 03-29-2019 VITAMIN D (25-HYDROXY,TOTAL) VITAMIN D (25-HYDROXY,TOTAL) Routine Psoriatic arthritis 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 Psoriasis Fatigue, unspecified type History of psoriatic arthritis USP current use of non-steroidal anti-inflammatories (NSAID) USP current use of 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, 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, 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 Long-term current use of high risk medication other than anticoagulant Lumbosacral spondylosis without myelopathy Disorder of bone and cartilage Plaque psoriasis Cervicalgia Dorsalgia Chronic pain of both shoulders Bilateral elbow joint pain Bilateral wrist pain Bilateral hand pain Chronic pain of both knees Expected: 03/29/2019 (Approximate), Expires: 03/29/2019 [facility] Work Phone: Comment on above: Expected: 03/29/2019 (Approximate), Expi res: 03/29/2019 Start: 03-29-2019 End: 03-29-2019 VITAMIN D, (1,25 DIHYDROXY) VITAMIN D, (1,25 DIHYDROXY) Routine Psoriatic arthritis 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 Psoriasis Fatigue, unspecified type 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) USP current use of 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, 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, current use Long-term current use of high risk medication other than anticoagulant Lumbosacral spondylosis without myelopathy Disorder of bone and cartilage Plaque psoriasis Cervicalgia Dorsalgia Chronic pain of both shoulders Bilateral elbow joint pain Bilateral wrist pain Bilateral hand pain Chronic pain of both knees Expected: 03/29/2019 (Approximate), Expires: 03/29/2019 [facility] Work Phone: Comment on above: Expected: 03/29/2019 (Approximate), Expi res: 03/29/2019 Start: 01-07-2019 End: 01-07-2019 [facility] Start: 12-04-2018 End: 09-04-2019 VITAMIN D (25-HYDROXY,TOTAL) VITAMIN D (25-HYDROXY,TOTAL) Lab Routine Vitamin D deficiency Expected: 12/04/2018 (Approximate), Expires: 09/04/2019 [facility] Comment on above: Expected: 12/04/2018 (Approximate), Expi res: 09/04/2019 Start: 12-04-2018 End: 09-04-2019 VITAMIN D, (1,25 DIHYDROXY) VITAMIN D, (1,25 DIHYDROXY) Lab Routine Vitamin D deficiency Expected: 12/04/2018 (Approximate), Expires: 09/04/2019 [facility] Comment on above: Expected: 12/04/2018 (Approximate), Expi res: 09/04/2019 Start: 12-01-2018 Influenza vaccination [facility] Start: 09-06-2018 End: 09-06-2018 Ambulatory 09/06/2018 Office Visit Rheumatology Ela Vidales, Tra Vasquez, DO [address] [id number] [phone] [facility] Start: 09-03-2018 End: 09-04-2019 VITAMIN D (25-HYDROXY,TOTAL) [facility] [employer] Comment on above: Expected: 09/03/2018 (Approximate), Expi res: 09/04/2019 Expected: 09/03/2018 , Expires: 09/03/2019 Start: 09-03-2018 End: 09-04-2019 VITAMIN D, (1,25 DIHYDROXY) [employer] Comment on above: Expected: 09/03/2018 (Approximate), Expi res: 09/04/2019 Expected: 09/03/2018 , Expires: 09/03/2019 Start: 06-30-2018 End: 04-01-2019 VITAMIN D (25-HYDROXY,TOTAL) VITAMIN D (25-HYDROXY,TOTAL) Routine Vitamin D deficiency Expected: 06/30/2018 (Approximate), Expires: 04/01/2019 [facility] Work Phone: Comment on above: Expected: 06/30/2018 (Approximate), Expi res: 04/01/2019 Start: 06-30-2018 End: 04-01-2019 VITAMIN D, (1,25 DIHYDROXY) VITAMIN D, (1,25 DIHYDROXY) Routine Vitamin D deficiency Expected: 06/30/2018 (Approximate), Expires: 04/01/2019 [facility] Work Phone: Comment on above: Expected: 06/30/2018 (Approximate), Expi res: 04/01/2019 Start: 05-09-2018 End: 05-09-2018 Ambulatory 05/09/2018 Office Visit Rheumatology Tra Vale Jr., [address] [place] [id number] [phone] [facility] Rheumatology Start: 05-03-2018 End: 05-03-2018 Ambulatory 05/03/2018 Office Visit Rheumatology Tra Vale Jr., [address] [place] [id number] [phone] [facility] Start: 03-29-2018 End: 03-29-2019 Diagnostic radiography of lumbar spine XR SPINE LUMBOSACRAL 5 VIEWS Routine Psoriatic arthritis 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 Psoriasis Fatigue, unspecified type History of psoriatic arthritis USP current use of non-steroidal anti-inflammatories (NSAID) USP current use of 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, 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, 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 Long-term current use of high risk medication other than anticoagulant Lumbosacral spondylosis without myelopathy Disorder of bone and cartilage Plaque psoriasis Cervicalgia Dorsalgia Chronic pain of both shoulders Bilateral elbow joint pain Bilateral wrist pain Bilateral hand pain Chronic pain of both knees Expected: 03/29/2018, Expires: 03/29/2019 [facility] Work Phone: Comment on above: Expected: 03/29/2018, Expires: 9 Start: 03-29-2018 End: 03-29-2019 Diagnostic radiography of sacroiliac joints XR SACROILIAC JOINTS MIN 3 VIEWS Routine Psoriatic arthritis 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 Psoriasis Fatigue, unspecified type History of psoriatic arthritis USP current use of non-steroidal anti-inflammatories (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, 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, current use Long-term current use of high risk medication other than anticoagulant Lumbosacral spondylosis without myelopathy Disorder of bone and cartilage Plaque psoriasis Cervicalgia Dorsalgia Chronic pain of both shoulders Bilateral elbow joint pain Bilateral wrist pain Bilateral hand pain Chronic pain of both knees Expected: 03/29/2018, Expires: 03/29/2019 [facility] Work Phone: Comment on above: Expected: 03/29/2018, Expires: 9 Start: 03-29-2018 End: 03-29-2019 M TUBERCULOSIS BY QUANTIFERON, BLD M TUBERCULOSIS BY QUANTIFERON, BLD Routine Psoriatic arthritis 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 Psoriasis Fatigue, unspecified type 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) USP current use of 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, 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, current use Long-term current use of high risk medication other than anticoagulant Lumbosacral spondylosis without myelopathy Disorder of bone and cartilage Plaque psoriasis Cervicalgia Dorsalgia Chronic pain of both shoulders Bilateral elbow joint pain Bilateral wrist pain Bilateral hand pain Chronic pain of both knees Expected: 03/29/2018 (Approximate), Expires: 03/29/2019 [facility] Work Phone: Comment on above: Expected: 03/29/2018 (Approximate), Expi res: 03/29/2019 Start: 03-29-2018 End: 03-29-2019 Radiography of cervical spine XR SPINE CERVICAL WITH OBL AND FLEX/EXT Routine Psoriatic arthritis 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 Psoriasis Fatigue, unspecified type 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) USP current use of 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, 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, current use Long-term current use of high risk medication other than anticoagulant Lumbosacral spondylosis without myelopathy Disorder of bone and cartilage Plaque psoriasis Cervicalgia Dorsalgia Chronic pain of both shoulders Bilateral elbow joint pain Bilateral wrist pain Bilateral hand pain Chronic pain of both knees Expected: 03/29/2018, Expires: 03/29/2019 [facility] Work Phone: Comment on above: Expected: 03/29/2018, Expires: 9 Start: 03-29-2018 End: 03-29-2019 Radiography of hand XR HANDS-RHEUMATOLOGY EVAL O NLY Routine Psoriatic arthritis 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 Psoriasis Fatigue, unspecified type 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, 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, current use Long-term current use of high risk medication other than anticoagulant Lumbosacral spondylosis without myelopathy Disorder of bone and cartilage Plaque psoriasis Cervicalgia Dorsalgia Chronic pain of both shoulders Bilateral elbow joint pain Bilateral wrist pain Bilateral hand pain Chronic pain of both knees Expected: 03/29/2018, Expires: 03/29/2019 [facility] Work Phone: Comment on above: Expected: 03/29/2018, Expires: 9 Start: 03-29-2018 End: 03-29-2019 Radiography of shoulder [facility] Work Phone: Comment on above: Expected: 03/29/2018, Expires: 9 Start: 03-29-2018 End: 03-29-2019 Radiography of wrist [facility] Work Phone: Comment on above: Expected: 03/29/2018, Expires: 9 Start: 03-29-2018 End: 03-29-2019 Radiologic examination of knee [facility] Work Phone: Comment on above: Expected: 03/29/2018, Expires: 9 Start: 03-29-2018 End: 03-29-2019 X-ray of both knees XR KNEES BILATERAL STANDING 1 VIEW Routine Psoriatic arthritis 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 Psoriasis Fatigue, unspecified type 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, 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, current use Long-term current use of high risk medication other than anticoagulant Lumbosacral spondylosis without myelopathy Disorder of bone and cartilage Plaque psoriasis Cervicalgia Dorsalgia Chronic pain of both shoulders Bilateral elbow joint pain Bilateral wrist pain Bilateral hand pain Chronic pain of both knees Expected: 03/29/2018, Expires: 03/29/2019 [facility] Work Phone: Comment on above: Expected: 03/29/2018, Expires: 9 Start: 12-01-2017 Influenza vaccination INFLUENZA VACCINE (#1) [facility] Work Phone: Start: 2016 Colonoscopy [facility] Work Phone: Start: 2016 Prostate specific antigen measurement PROSTATE CANCER SCREENING DISCUSSION [facility] Start: 2016 Protein mass conc COLON CANCER SCREENING DISCUSSION [facility] Work Phone: Start: 2016 Zoster vaccine hzv live for subcutaneous use ZOSTER (SHINGLES) VACCINE (1 of 2) [facility] Start: 2011 Colonoscopy COLORECTAL CANCER SCREENING DISCUSSION [facility] Start: 2011 Screening for malignant neoplasm of colon COLORECTAL CANCER SCREENING DISCUSSION [facility] Start: 2006 Fasting lipid profile LIPID SCREENING [facility] Start: 2006 Lipid panel LIPID SCREENING [facility] Start: 1985 Hepatitis B vaccination HEP B VACCINE (1 of 3 - 19+ 3-dose series) [facility] Start: 1985 Third diphtheria, tetanus and acellular pertussis (DTaP) vaccination TDAP (ADULT) [facility] Start: 1984 Tetanus vaccination TETANUS [facility] Start: 1982 COVID-19 VACCINE (1) COVID-19 VACCINE (1) [facility] Start: 1981 HIV screening HIV SCREENING DISCUSSION [facility] Start: 1979 HIV screening HIV SCREENING DISCUSSION [facility] Work Phone: Start: 1971 COVID-19 VACCINE (1) COVID-19 VACCINE (1) [facility] Start: 1966 COVID-19 VACCINE (#1) COVID-19 VACCINE (#1) [facility] Start: 1966 Finding of potassium level (finding) POTASSIUM [facility] Start: 1966 Hepatitis B vaccination HEP B VACCINE (1 of 3 - 3-dose series) [facility] Start: 1966 Hepatitis C antibody, confirmatory test HEPATITIS C VIRUS SCREENING [facility] Start: 1966 Hepatitis C screening HEPATITIS C VIRUS SCREENING [facility] End: 07-12-2022 Alanine aminotransferase [Enzymatic activity/volume] in Serum or Plasma ALT Lab Routine Psoriatic arthritis Psoriatic spondylitis Psoriasis Plaque psoriasis Anemia, unspecified type Methotrexate, 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, current use Long-term current use of high risk medication other than anticoagulant USP current use of systemic steroids 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 [...] Occurrences starting 07/12/2021 until 07/12/2022, 1 completed [employer] Comment on above: Every 8 Weeks for 6 Occurrences starting 07/12/2021 until 07/12/2022, 1 completed End: 01-10-2023 Alanine aminotransferase [Enzymatic activity/volume] in Serum or Plasma ALT Lab Routine Psoriatic arthritis 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 Psoriatic spondylitis Plaque psoriasis Psoriasis SAPHO syndrome 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) Long-term current use of high risk medication other than anticoagulant Methotrexate, 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, current use Every 8 Weeks for 6 Occurrences starting 01/10/2022 until 01/10/2023 [employer] Comment on above: Every 8 Weeks for 6 Occurrences starting 01/10/2022 until 01/10/2023 End: 07-26-2023 Alanine aminotransferase [Enzymatic activity/volume] in Serum or Plasma ALT Lab Routine Psoriatic arthritis 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 Psoriatic spondylitis Macrocytic anemia Plaque psoriasis Psoriasis SAPHO syndrome History of kidney stones 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) Long-term current use of high risk medication other than anticoagulant Methotrexate, 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, current use Abnormal renal function test Vitamin [...] for 4 Occurrences starting 07/25/2022 until 07/26/2023 [employer] Comment on above: Every 12 Weeks for 4 Occurrences startin g 07/25/2022 until 07/26/2023 End: 01-24-2024 Alanine aminotransferase [Enzymatic activity/volume] in Serum or Plasma ALT Lab Routine Psoriatic arthritis 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 Psoriatic spondylitis Plaque psoriasis Psoriasis SAPHO syndrome History of kidney stones History of psoriatic arthritis Long-term current use of high risk medication other than anticoagulant 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, 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, 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 use Vitamin D deficiency DDD (degenerative [...] for 4 Occurrences starting 01/23/2023 until 01/24/2024 [employer] Comment on above: Every 12 Weeks for [...] anemia Psoriasis Plaque psoriasis Hyperchromic anemia 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, 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, 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 Long-term current use of high risk medication other than anticoagulant History of psoriatic arthritis History of kidney stones Abnormal renal function test Vitamin D deficiency 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 Every 12 Weeks for 4 Occurrences starting 07/31/2023 until 07/30/2024 [email or web address] Comment on above: Every 12 Weeks for 4 Occurrences startin g 07/31/2023 until 07/30/2024 End: 09-08-2020 ALT [Catalytic activity/Vol] ALT Lab Routine Psoriatic arthritis 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 Psoriatic spondylitis Psoriasis SAPHO syndrome 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, 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, current use Long-term current use of high [...] psoriasis 6 Occurrences starting 10/11/2019 until 09/08/2020 [employer] Comment on above: 6 Occurrences starting 10/11/2019 until 09/08/2020 End: 01-12-2021 ALT [Catalytic activity/Vol] ALT Lab Routine Psoriatic arthritis Psoriasis Plaque psoriasis Methotrexate, 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, current use Long-term current use of high risk medication other than anticoagulant 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 [...] Occurrences starting 01/13/2020 until 01/12/2021, 1 completed [employer] Comment on above: 6 Occurrences starting 01/13/2020 until 01/12/2021, 1 completed End: 01-08-2020 ALT [Catalytic activity/Vol] ALT Lab Routine Psoriatic arthritis Psoriatic spondylitis Psoriasis Plaque psoriasis Anemia, unspecified type Methotrexate, 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, current use Long-term current use of high risk medication other than anticoagulant 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 [...] cervical 6 Occurrences starting 01/04/2019 until 01/08/2020 [employer] Comment on above: 6 Occurrences starting 01/04/2019 until 01/08/2020 End: 07-13-2021 ALT [Catalytic activity/Vol] ALT Lab Routine Psoriatic arthritis 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 Psoriatic spondylitis Psoriasis SAPHO syndrome History of psoriatic arthritis USP current use of non-steroidal anti-inflammatories (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, 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, current use Long-term current use of high [...] Occurrences starting 09/12/2020 until 07/13/2021, 1 completed [employer] Comment on above: 6 Occurrences starting 09/12/2020 until 07/13/2021, 1 completed End: 05-03-2019 ALT enzyme act/vol ALT Routine Psoriatic arthri tis 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 Psoriasis Anemia, unspecified type USP current use of non-steroidal anti-inflammatories (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, 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, current use Long-term current use of high [...] psoriasis 6 Occurrences starting 05/30/2018 until 05/03/2019 [facility] Work Phone: Comment on above: 6 Occurrences starting 05/30/2018 until 05/03/2019 End: 09-04-2019 ALT enzyme act/vol ALTLabRoutinePsoriatic arthritisPsoriatic arthropathy of distal interphalangeal (DIP) jointPsoriatic spondylitisHistory of psoriatic arthritisLong term current use of non-steroidal anti-inflammatories (NSAID)USP current use of systemic steroidsLong-term current use of high risk medication other than anticoagulantMethotrexate, 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, current useNoncompliancePatient non adherenceVitamin D deficiencyDDD (degenerative [...] starting 11/03/2018 until (more content not included)... 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 [...] Occurrences starting 07/12/2021 until 07/12/2022, 1 completed [employer] Comment on above: Every 8 Weeks for 6 Occurrences starting 07/12/2021 until 07/12/2022, 1 completed End: 01-10-2023 Aspartate aminotransferase [Enzymatic activity/volume] in Serum or Plasma AST Lab Routine Psoriatic arthritis 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 Psoriatic spondylitis Plaque psoriasis Psoriasis SAPHO syndrome History of psoriatic arthritis USP current use of non-steroidal anti-inflammatories (NSAID) Long-term current use of high risk medication other than anticoagulant Methotrexate, 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, current use Every 8 Weeks for 6 Occurrences starting 01/10/2022 until 01/10/2023 [email or web address] Comment on above: Every 8 Weeks for 6 Occurrences starting 01/10/2022 until 01/10/2023 End: 07-26-2023 Aspartate aminotransferase [Enzymatic activity/volume] in Serum or Plasma AST Lab Routine Psoriatic arthritis 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 Psoriatic spondylitis Macrocytic anemia Plaque psoriasis Psoriasis SAPHO syndrome History of kidney stones 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) Long-term current use of high risk medication other than anticoagulant Methotrexate, 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, current use Abnormal renal function test Vitamin [...] for 4 Occurrences starting 07/25/2022 until 07/26/2023 [email or web address] Comment on above: Every 12 Weeks for 4 Occurrences startin g 07/25/2022 until 07/26/2023 End: 01-24-2024 Aspartate aminotransferase [Enzymatic activity/volume] in Serum or Plasma AST Lab Routine Psoriatic arthritis 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 Psoriatic spondylitis Plaque psoriasis Psoriasis SAPHO syndrome History of kidney stones History of psoriatic arthritis Long-term current use of high risk medication other than anticoagulant Methotrexate, 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, current use Vitamin D deficiency DDD (degenerative [...] for 4 Occurrences starting 01/23/2023 until 01/24/2024 [email or web address] Comment on above: Every 12 Weeks for [...] anemia Psoriasis Plaque psoriasis Hyperchromic anemia Methotrexate, 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, current use Long-term current use of high risk medication other than anticoagulant History of psoriatic arthritis History of kidney stones Abnormal renal function test Vitamin D deficiency 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 Every 12 Weeks for 4 Occurrences starting 07/31/2023 until 07/30/2024 [email or web address] Comment on above: Every 12 Weeks for 4 Occurrences startin g 07/31/2023 until 07/30/2024 End: 09-08-2020 AST [Catalytic activity/Vol] AST Lab Routine Psoriatic arthritis 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 Psoriatic spondylitis Psoriasis SAPHO syndrome History of psoriatic arthritis USP current use of non-steroidal anti-inflammatories (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, 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, 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 Long-term current use of high [...] psoriasis 6 Occurrences starting 10/11/2019 until 09/08/2020 [employer] Comment on above: 6 Occurrences starting 10/11/2019 until 09/08/2020 End: 01-12-2021 AST [Catalytic activity/Vol] AST Lab Routine Psoriatic arthritis Psoriasis Plaque psoriasis 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, 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, 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 Long-term current use of high risk medication other than anticoagulant 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 [...] Occurrences starting 01/13/2020 until 01/12/2021, 1 completed [email or web address] [place] Comment on above: 6 Occurrences starting 01/13/2020 until 01/12/2021, 1 completed End: 07-13-2021 AST [Catalytic activity/Vol] AST Lab Routine Psoriatic arthritis 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 Psoriatic spondylitis Psoriasis SAPHO syndrome History of psoriatic arthritis USP current use of non-steroidal anti-inflammatories (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, 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, 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 Long-term current use of high [...] Occurrences starting 09/12/2020 until 07/13/2021, 1 completed [email or web address] Comment on above: 6 Occurrences starting 09/12/2020 until 07/13/2021, 1 completed End: 05-03-2019 AST enzyme act/vol AST Routine Psoriatic arthri tis 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 Psoriasis Anemia, unspecified type USP current use of non-steroidal anti-inflammatories (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, 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, 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 Long-term current use of high [...] psoriasis 6 Occurrences starting 05/30/2018 until 05/03/2019 [facility] Work Phone: Comment on above: 6 Occurrences starting 05/30/2018 until 05/03/2019 End: 09-04-2019 AST enzyme act/vol ASTLabRoutinePsoriatic arthritisPsoriatic arthropathy of distal interphalangeal (DIP) jointPsoriatic spondylitisHistory of psoriatic arthritisLong term current use of non-steroidal anti-inflammatories (NSAID)USP current use of systemic steroidsLong-term current use of high risk medication other than anticoagulantMethotrexate, 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, current useNoncompliancePatient non adherenceVitamin D deficiencyDDD (degenerative [...] starting 11/03/2018 until (more content not included)... 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 [...] Occurrences starting 07/12/2021 until 07/12/2022, 1 completed [employer] [place] Comment on above: Every 8 Weeks for 6 Occurrences starting 07/12/2021 until 07/12/2022, 1 completed End: 01-10-2023 C-reactive protein C REACTIVE PROTEIN Lab Routi ne Psoriatic arthritis 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 Psoriatic spondylitis Plaque psoriasis Psoriasis SAPHO syndrome 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) Long-term current use of high risk medication other than anticoagulant 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, 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, 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 Every 8 Weeks for 6 Occurrences starting 01/10/2022 until 01/10/2023 [email or web address] Comment on above: Every 8 Weeks for 6 Occurrences starting 01/10/2022 until 01/10/2023 End: 07-26-2023 C-reactive protein C REACTIVE PROTEIN Lab Routi ne Psoriatic arthritis 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 Psoriatic spondylitis Macrocytic anemia Plaque psoriasis Psoriasis SAPHO syndrome History of kidney stones 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) Long-term current use of high risk medication other than anticoagulant Methotrexate, 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, current use Abnormal renal function test Vitamin [...] for 4 Occurrences starting 07/25/2022 until 07/26/2023 [email or web address] [place] Comment on above: Every 12 Weeks for 4 Occurrences startin g 07/25/2022 until 07/26/2023 End: 01-24-2024 C-reactive protein C REACTIVE PROTEIN Lab Routi ne Psoriatic arthritis 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 Psoriatic spondylitis Plaque psoriasis Psoriasis SAPHO syndrome History of kidney stones History of psoriatic arthritis Long-term current use of high risk medication other than anticoagulant Methotrexate, 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, current use Vitamin D deficiency DDD (degenerative [...] for 4 Occurrences starting 01/23/2023 until 01/24/2024 [facility]: Every 12 Weeks for [...] anemia Psoriasis Plaque psoriasis Hyperchromic anemia 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, 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, 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 Long-term current use of high risk medication other than anticoagulant History of psoriatic arthritis History of kidney stones Abnormal renal function test Vitamin D deficiency 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 Every 12 Weeks for 4 Occurrences starting 07/31/2023 until 07/30/2024 [email or web address] [place] Comment on above: Every 12 Weeks for 4 Occurrences startin g 07/31/2023 until 07/30/2024 End: 01-08-2020 CBC, EDIF, PLATELET CBC, EDIF, PLATELET Lab Rout ine Psoriatic arthritis Psoriatic spondylitis Psoriasis Plaque psoriasis Anemia, unspecified type Methotrexate, 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, current use Long-term current use of high risk medication other than anticoagulant USP current use of systemic steroids 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 [...] cervical 6 Occurrences starting 01/04/2019 until 01/08/2020 [employer] Comment on above: 6 Occurrences starting 01/04/2019 until 01/08/2020 End: 05-03-2019 CBC,PLATELETS CBC,PLATELETS Routine Psoria tic arthritis 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 Psoriasis Anemia, unspecified type 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, 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, current use Long-term current use of high [...] psoriasis 6 Occurrences starting 05/30/2018 until 05/03/2019 [facility] Work Phone: Comment on above: 6 Occurrences starting 05/30/2018 until 05/03/2019 End: 09-04-2019 CBC,PLATELETS CBC,PLATELETSLabRoutinePsori atic arthritisPsoriatic arthropathy of distal interphalangeal (DIP) jointPsoriatic spondylitisHistory of psoriatic arthritisLong term current use of non-steroidal anti-inflammatories (NSAID)USP current use of systemic steroidsLong-term current use of high risk medication other than anticoagulantMethotrexate, 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, current useNoncompliancePatient non adherenceVitamin D deficiencyDDD (degenerative [...] starting 11/03/2018 until (more content not included)... 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 Long-term current use of high [...] psoriasis 6 Occurrences starting 10/11/2019 until 09/08/2020 [employer] Comment on above: 6 Occurrences starting 10/11/2019 until 09/08/2020 End: 01-12-2021 Complete blood count with white cell differential, automated CBC, EDIF, PLATELET Lab Routine Psoriatic arthritis Psoriasis Plaque psoriasis 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, 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, 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 Long-term current use of high risk medication other than anticoagulant USP current use of non-steroidal anti-inflammatories (NSAID) History [...] Occurrences starting 01/13/2020 until 01/12/2021, 1 completed [employer] Comment on above: 6 Occurrences starting 01/13/2020 until 01/12/2021, 1 completed End: 07-13-2021 Complete blood count with white cell differential, automated CBC, EDIF, PLATELET Lab Routine Psoriatic arthritis 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 Psoriatic spondylitis Psoriasis SAPHO syndrome History of psoriatic arthritis USP current use of non-steroidal anti-inflammatories (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, 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, 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 Long-term current use of high [...] Occurrences starting 09/12/2020 until 07/13/2021, 1 completed [employer] Comment on above: 6 Occurrences starting 09/12/2020 until 07/13/2021, 1 completed End: 07-12-2022 Complete blood count with white cell differential, automated CBC, EDIF, PLATELET Lab Routine Psoriatic arthritis Psoriatic spondylitis Psoriasis Plaque psoriasis Anemia, unspecified type Methotrexate, 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, current use Long-term current use of high risk medication other than anticoagulant USP current use of systemic steroids 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 [...] Occurrences starting 07/12/2021 until 07/12/2022, 1 completed [employer] [place] Comment on above: Every 8 Weeks for 6 Occurrences starting 07/12/2021 until 07/12/2022, 1 completed End: 01-10-2023 Complete blood count with white cell differential, automated CBC, EDIF, PLATELET Lab Routine Psoriatic arthritis 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 Psoriatic spondylitis Plaque psoriasis Psoriasis SAPHO syndrome 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) Long-term current use of high risk medication other than anticoagulant 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, 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, 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 Every 8 Weeks for 6 Occurrences starting 01/10/2022 until 01/10/2023 [email or web address] Comment on above: Every 8 Weeks for 6 Occurrences starting 01/10/2022 until 01/10/2023 End: 07-26-2023 Complete blood count with white cell differential, automated CBC, EDIF, PLATELET Lab Routine Psoriatic arthritis 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 Psoriatic spondylitis Macrocytic anemia Plaque psoriasis Psoriasis SAPHO syndrome History of kidney stones 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) Long-term current use of high risk medication other than anticoagulant Methotrexate, 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, current use Abnormal renal function test Vitamin [...] for 4 Occurrences starting 07/25/2022 until 07/26/2023 [employer] Comment on above: Every 12 Weeks for [...] high risk medication other than anticoagulant 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, 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, 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 Vitamin D deficiency DDD (degenerative [...] for 4 Occurrences starting 01/23/2023 until 01/24/2024 [email or web address] [place] Comment on above: Every 12 Weeks for [...] anemia Psoriasis Plaque psoriasis Hyperchromic anemia Methotrexate, 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, current use Long-term current use of high risk medication other than anticoagulant History of psoriatic arthritis History of kidney stones Abnormal renal function test Vitamin D deficiency 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 Every 12 Weeks for 4 Occurrences starting 07/31/2023 until 07/30/2024 [facility] Comment on above: Every 12 Weeks for 4 Occurrences startin g 07/31/2023 until 07/30/2024 End: 09-08-2020 Creatinine [Mass/Vol] CREATININE SERUM Lab Routine Psoriatic arthritis 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 Psoriatic spondylitis Psoriasis SAPHO syndrome 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, 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, 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 Long-term current use of high [...] psoriasis 6 Occurrences starting 10/11/2019 until 09/08/2020 [facility] Comment on above: 6 Occurrences starting 10/11/2019 until 09/08/2020 End: 01-12-2021 Creatinine [Mass/Vol] CREATININE SERUM Lab Routine Psoriatic arthritis Psoriasis Plaque psoriasis 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, 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, 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 Long-term current use of high risk medication other than anticoagulant 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 [...] Occurrences starting 01/13/2020 until 01/12/2021, 1 completed [facility] Comment on above: 6 Occurrences starting 01/13/2020 until 01/12/2021, 1 completed End: 01-08-2020 Creatinine [Mass/Vol] CREATININE SERUM Lab Routine Psoriatic arthritis Psoriatic spondylitis Psoriasis Plaque psoriasis Anemia, unspecified type Methotrexate, 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, current use Long-term current use of high risk medication other than anticoagulant USP current use of systemic steroids 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 [...] cervical 6 Occurrences starting 01/04/2019 until 01/08/2020 [employer] Comment on above: 6 Occurrences starting 01/04/2019 until 01/08/2020 End: 07-13-2021 Creatinine [Mass/Vol] CREATININE SERUM Lab Routine Psoriatic arthritis 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 Psoriatic spondylitis Psoriasis SAPHO syndrome History of psoriatic arthritis USP current use of non-steroidal anti-inflammatories (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, 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, 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 Long-term current use of high [...] Occurrences starting 09/12/2020 until 07/13/2021, 1 completed [employer] Comment on above: 6 Occurrences starting 09/12/2020 until 07/13/2021, 1 completed End: 07-12-2022 Creatinine [Mass/volume] in Serum or Plasma CREATININE SERUM Lab Routine Psoriatic arthritis Psoriatic spondylitis Psoriasis Plaque psoriasis Anemia, unspecified type 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, 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, 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 Long-term current use of high risk medication other than anticoagulant 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 [...] Occurrences starting 07/12/2021 until 07/12/2022, 1 completed [employer] [place] Comment on above: Every 8 Weeks for 6 Occurrences starting 07/12/2021 until 07/12/2022, 1 completed End: 01-10-2023 Creatinine [Mass/volume] in Serum or Plasma CREATININE SERUM Lab Routine Psoriatic arthritis 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 Psoriatic spondylitis Plaque psoriasis Psoriasis SAPHO syndrome History of psoriatic arthritis USP current use of non-steroidal anti-inflammatories (NSAID) Long-term current use of high risk medication other than anticoagulant Methotrexate, 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, current use Every 8 Weeks for 6 Occurrences starting 01/10/2022 until 01/10/2023 [employer] [place] Comment on above: Every 8 Weeks for 6 Occurrences starting 01/10/2022 until 01/10/2023 End: 07-26-2023 Creatinine [Mass/volume] in Serum or Plasma CREATININE SERUM Lab Routine Psoriatic arthritis 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 Psoriatic spondylitis Macrocytic anemia Plaque psoriasis Psoriasis SAPHO syndrome History of kidney stones 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) Long-term current use of high risk medication other than anticoagulant 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, 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, current use Abnormal renal function test Vitamin [...] for 4 Occurrences starting 07/25/2022 until 07/26/2023 [facility] Comment on above: Every 12 Weeks for 4 Occurrences startin g 07/25/2022 until 07/26/2023 End: 01-24-2024 Creatinine [Mass/volume] in Serum or Plasma CREATININE SERUM Lab Routine Psoriatic arthritis 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 Psoriatic spondylitis Plaque psoriasis Psoriasis SAPHO syndrome History of kidney stones History of psoriatic arthritis Long-term current use of high risk medication other than anticoagulant Methotrexate, 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, current use Vitamin D deficiency DDD (degenerative [...] for 4 Occurrences starting 01/23/2023 until 01/24/2024 [facility] Comment on above: Every 12 Weeks [...] anemia Psoriasis Plaque psoriasis Hyperchromic anemia 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, 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, 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 Long-term current use of high risk medication other than anticoagulant History of psoriatic arthritis History of kidney stones Abnormal renal function test Vitamin D deficiency 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 Every 12 Weeks for 4 Occurrences starting 07/31/2023 until 07/30/2024 [facility] Comment on above: Every 12 Weeks for 4 Occurrences startin g 07/31/2023 until 07/30/2024 End: 05-03-2019 Creatinine mass conc CREATININE SERUM Routine Psoriatic arthritis 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 Psoriasis Anemia, unspecified type 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, 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, current use Long-term current use of high [...] psoriasis 6 Occurrences starting 05/30/2018 until 05/03/2019 [facility] Work Phone: Comment on above: 6 Occurrences starting 05/30/2018 until 05/03/2019 End: 09-04-2019 Creatinine mass conc CREATININE SERUMLabRoutinePsoriatic arthritisPsoriatic arthropathy of distal interphalangeal (DIP) jointPsoriatic spondylitisHistory of psoriatic arthritisLong term current use of non-steroidal anti-inflammatories (NSAID)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Long-term current use of high risk medication other than anticoagulantMethotrexate, 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, current useNoncompliancePatient non adherenceVitamin D deficiencyDDD (degenerative [...] starting 11/03/2018 un (more content not included)... 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 Psoriatic spondylitis Psoriasis SAPHO syndrome History of psoriatic arthritis USP current use of non-steroidal anti-inflammatories (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, 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, current use Long-term current use of high [...] psoriasis 6 Occurrences starting 10/11/2019 until 09/08/2020 [employer] Comment on above: 6 Occurrences starting 10/11/2019 until 09/08/2020 End: 01-12-2021 CRP [Mass/Vol] C REACTIVE PROTEIN Lab Routi ne Psoriatic arthritis Psoriasis Plaque psoriasis Methotrexate, 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, current use Long-term current use of high risk medication other than anticoagulant USP current use of non-steroidal anti-inflammatories (NSAID) History [...] Occurrences starting 01/13/2020 until 01/12/2021, 1 completed [employer] Comment on above: 6 Occurrences starting 01/13/2020 until 01/12/2021, 1 completed End: 01-08-2020 CRP [Mass/Vol] C REACTIVE PROTEIN Lab Routi ne Psoriatic arthritis Psoriatic spondylitis Psoriasis Plaque psoriasis Anemia, unspecified type Methotrexate, 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, current use Long-term current use of high risk medication other than anticoagulant 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 [...] cervical 6 Occurrences starting 01/04/2019 until 01/08/2020 [employer] Comment on above: 6 Occurrences starting 01/04/2019 until 01/08/2020 End: 07-13-2021 CRP [Mass/Vol] C REACTIVE PROTEIN Lab Routi ne Psoriatic arthritis 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 Psoriatic spondylitis Psoriasis SAPHO syndrome History of psoriatic arthritis USP current use of non-steroidal anti-inflammatories (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, 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, current use Long-term current use of high [...] Occurrences starting 09/12/2020 until 07/13/2021, 1 completed 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 Psoriasis Anemia, unspecified type USP current use of non-steroidal anti-inflammatories (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, 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, current use Long-term current use of high [...] psoriasis 6 Occurrences starting 05/30/2018 until 05/03/2019 [facility] Work Phone: Comment on above: 6 Occurrences starting 05/30/2018 until 05/03/2019 End: 09-04-2019 CRP mass conc C REACTIVE PROTEINLabRoutinePsoriatic arthritisPsoriatic arthropathy of distal interphalangeal (DIP) jointPsoriatic spondylitisHistory of psoriatic arthritisLong term current use of non-steroidal anti-inflammatories (NSAID)USP current use of systemic steroidsLong-term current use of high risk medication other than anticoagulantMethotrexate, 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, current useNoncompliancePatient non adherenceVitamin D deficiencyDDD (degenerative [...] [address] (more content not included)... 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, 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, current use Long-term current use of high [...] psoriasis 6 Occurrences starting 05/30/2018 until 05/03/2019 [facility] Work Phone: Comment on above: 6 Occurrences starting 05/30/2018 until 05/03/2019 End: 09-04-2019 SEDIMENTATION RATE, AUTOMATED SEDIMENTATION RATE, AUTOMATEDLabRoutinePsoriatic arthritisPsoriatic arthropathy of distal interphalangeal (DIP) jointPsoriatic spondylitisHistory of psoriatic arthritisLong term current use of non-steroidal anti-inflammatories (NSAID)USP current use of systemic steroidsLong-term current use of high risk medication other than anticoagulantMethotrexate, 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, current useNoncompliancePatient non adherenceVitamin D deficiencyDDD (degenerative disc disease), cervicalImpingement syndrome of both shouldersLumbosacral spondylosis without myelopathyOsteoarthritis of cervical spine, unspecified spinal osteoarthritis complication statusOsteoarthritis of both acromioclavicular jointsOsteoarthritis of both glenohumeral jointsOsteoarthritis of both hands, unspecified osteoarthritis typeOsteoarthritis of both hips, unspecified osteoarthritis typeOsteoarthritis of both wrists, unspecified osteoarthritis typePrimary osteoarthritis of both kneesPlaque psoriasisPsoriasis6 Occurrences starting (more content not included)... 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, 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, current use Long-term current use of high [...] psoriasis 6 Occurrences starting 10/11/2019 until 09/08/2020 [employer] Comment on above: 6 Occurrences starting 10/11/2019 until 09/08/2020 End: 01-12-2021 SEDIMENTATION RATE, AUTOMATED SEDIMENTATION RATE, AUTOMATED Lab Routine Psoriatic arthritis Psoriasis Plaque psoriasis 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, 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, 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 Long-term current use of high risk medication other than anticoagulant USP current use of non-steroidal anti-inflammatories (NSAID) History [...] Occurrences starting 01/13/2020 until 01/12/2021, 1 completed [employer] Comment on above: 6 Occurrences starting 01/13/2020 until 01/12/2021, 1 completed End: 01-08-2020 SEDIMENTATION RATE, AUTOMATED SEDIMENTATION RATE, AUTOMATED Lab Routine Psoriatic arthritis Psoriatic spondylitis Psoriasis Plaque psoriasis Anemia, unspecified type Methotrexate, 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, current use Long-term current use of high risk medication other than anticoagulant USP current use of systemic steroids 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 [...] cervical 6 Occurrences starting 01/04/2019 until 01/08/2020 [employer] Comment on above: 6 Occurrences starting 01/04/2019 until 01/08/2020 End: 07-13-2021 SEDIMENTATION RATE, AUTOMATED SEDIMENTATION RATE, AUTOMATED Lab Routine Psoriatic arthritis 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 Psoriasis SAPHO syndrome History of psoriatic arthritis USP current use of non-steroidal anti-inflammatories (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, 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, 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 Long-term current use of high [...] Occurrences starting 09/12/2020 until 07/13/2021, 1 completed [employer] Comment on above: 6 Occurrences starting 09/12/2020 until 07/13/2021, 1 completed End: 07-12-2022 SEDIMENTATION RATE, AUTOMATED SEDIMENTATION RATE, AUTOMATED Lab Routine Psoriatic arthritis Psoriatic spondylitis Psoriasis Plaque psoriasis Anemia, unspecified type 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, 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, 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 Long-term current use of high risk medication other than anticoagulant 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 USP current use of non-steroidal anti-inflammatories (NSAID) History [...] Occurrences starting 07/12/2021 until 07/12/2022, 1 completed [employer] Comment on above: Every 8 Weeks for 6 Occurrences starting 07/12/2021 until 07/12/2022, 1 completed End: 01-10-2023 SEDIMENTATION RATE, AUTOMATED SEDIMENTATION RATE, AUTOMATED Lab Routine Psoriatic arthritis 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 spondylitis Plaque psoriasis Psoriasis SAPHO syndrome History of psoriatic arthritis USP current use of non-steroidal anti-inflammatories (NSAID) Long-term current use of high risk medication other than anticoagulant 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, 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, 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 Every 8 Weeks for 6 Occurrences starting 01/10/2022 until 01/10/2023 [employer] Comment on above: Every 8 Weeks for 6 Occurrences starting 01/10/2022 until 01/10/2023 End: 07-26-2023 SEDIMENTATION RATE, AUTOMATED SEDIMENTATION RATE, AUTOMATED Lab Routine Psoriatic arthritis 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 spondylitis Macrocytic anemia Plaque psoriasis Psoriasis SAPHO syndrome History of kidney stones History of psoriatic arthritis USP current use of non-steroidal anti-inflammatories (NSAID) Long-term current use of high risk medication other than anticoagulant 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, 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, 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 Abnormal renal function test Vitamin [...] for 4 Occurrences starting 07/25/2022 until 07/26/2023 [employer] Comment on above: Every 12 Weeks for 4 Occurrences startin g 07/25/2022 until 07/26/2023 End: 01-24-2024 SEDIMENTATION RATE, AUTOMATED SEDIMENTATION RATE, AUTOMATED Lab Routine Psoriatic arthritis 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 spondylitis Plaque psoriasis Psoriasis SAPHO syndrome History of kidney stones History of psoriatic arthritis Long-term current use of high risk medication other than anticoagulant Methotrexate, 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, current use Vitamin D deficiency DDD (degenerative [...] for 4 Occurrences starting 01/23/2023 until 01/24/2024 [employer] Comment on above: Every 12 Weeks for 4 Occurrences startin g 01/23/2023 until 01/24/2024 End: 07-30-2024 SEDIMENTATION RATE, [...] anemia Psoriasis Plaque psoriasis Hyperchromic anemia 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, 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, 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 Long-term current use of high risk medication other than anticoagulant History of psoriatic arthritis History of kidney stones Abnormal renal function test Vitamin D deficiency 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 Every 12 Weeks for 4 Occurrences starting 07/31/2023 until 07/30/2024 [facility] Comment on above: Every 12 Weeks for 4 Occurrences startin g 07/31/2023 until 07/30/2024 VITAMIN D, (1,25 DIHYDROXY) VITAMIN D, (1,25 DIHYDROXY) Lab Routine Psoriatic arthritis 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 spondylitis Psoriasis SAPHO syndrome 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, 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, 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 Long-term current use of high [...] osteoarthritis type Plaque psoriasis 07/13/2020 9:08 AM T [facility] Immunizations Immunization Date Immunization Notes Care Provider Fa villaty 09-07-2020 SARS-CoV-2 (COVID-19 ) mRNA BNT-162b2 vax [facility] 08-17-2020 SARS-CoV-2 (COVID-19 ) mRNA BNT-162b2 vax [facility] 11-15-2019 tetanus toxoid, reduced diphtheria toxoid, and acellular pertussis vaccine, adsorbed Yakelin [facility] NEGATED: Highlighted row has not occurred!02-15-2023 influenza virus vaccine, unspecified formulation Rodrigo Brink [facility] Payers Date Payer Category Payer Unknown [employer] xxxxxxxxxxx 2018-Present [id number] 2018 Unknown [employer] [id number] 2018-Present [id number] [id number].3. [id number] 2018 Unknown [id number]. 1.13.172.2.7.3. 792537.315 1966 Unknown [id number] 2.16.840.1.752755.3.579.2.647 1966 Unknown [id number] 2.16.840.1.381428.3.579.2.983 1966 Unknown [id number] 2.16.840.1.189645.3.579.2.983 1966 Unknown [id number] 2.16.840.1.194753.3.579.2.593 1966 Unknown [id number] 2.16.840.1.421970.3.579.2.593 1966 Unknown [id number] 2.16.840.1.669166.3.579.2.593 1966 Unknown [id number] 2.16.840.1.712094.3.579.2.593 1966 Unknown [id number] 2.16.840.1.519377.3.579.2.593 1966 Unknown [id number] 2.16.840.1.200349.3.579.2.593 1966 Unknown [id number] 2.16.840.1.375286.3.579.2.593 1966 Unknown [id number] 2.16.840.1.772451.3.579.2.593 1966 Unknown [id number] 2.16.840.1.018216.3.579.2.593 1966 Unknown [id number] 2.16.840.1.103401.3.579.2.593 1966 Unknown [id number] 2.16.840.1.283562.3.579.2.593 1966 Unknown [id number] 2.16.840.1.167374.3.579.2.593 1966 Unknown [id number] 2.16840.1.584038.3.579.2.593 1966 Unknown [id number] 2.16.840.1.067909.3.579.2.593 1966 Unknown [id number] 2.16.840.1.677305.3.579.2.593 1966 Unknown [id number] 2.16.840.1.405723.3.579.2.593 1966 Unknown [id number] 2.16.840.1.691484.3.579.2.593 1966 Unknown [id number] 2.16.840.1.261078.3.579.2.593 1966 Unknown [id number] 2.16.840.1.193756.3.579.2.593 1966 Unknown [id number] 2.16.840.1.030581.3.579.2.593 1966 Unknown [id number] 2.16.840.1.677830.3.579.2.593 1966 Unknown [id number] 2.16.840.1.593964.3.579.2.593 1966 Unknown [id number] 2.16.840.1.842226.3.579.2.983 1966 Unknown [id number] 2.16.840.1.128259.3.579.2.983 1966 Unknown [id number] 2.16.840.1.746827.3.579.2.983 1966 Unknown [id number] 2.16.840.1.935435.3.579.2.983 1966 Unknown [id number] 2.16.840.1.008356.3.579.2.983 1966 Unknown [id number] 2.16.840.1.865419.3.579.2.983 1966 Unknown [id number] 2.16.840.1.353236.3.579.2.983 1966 Unknown [id number] 2.16.840.1.321121.3.579.2727 1966 Unknown [id number] 2.16.840.1.046802.3.579.2727 1966 Unknown [id number] 2.16.840.1.643981.3.579.2.727 1966 Unknown [id number] 2.16.840.1.015325.3.579.2.727 1966 Unknown [id number] 2.16.840.1.526599.3.579.2.727 1966 Unknown [id number] 2.16.840.1.887773.3.579.2.727 1966 Unknown [id number] 2.16.840.1.005921.3.579.2.727 1966 Unknown [id number] 2.16.840.1.597172.3.579.2.727 1966 Unknown [id number] 2.16.840.1.256546.3.579.2.727 1966 Unknown [id number] 2.16.840.1.615175.3.579.2.727 1966 Unknown [id number] 2.16.840.1.376874.3.579.2. 1966 Unknown [id number] 2.16.840.1.059632.3.579.2. 1966 Unknown [id number] 2.16.840.1.182799.3.579.2.72 1966 Unknown [id number] 2.16.840.1.620824.3.579.2. 1966 Unknown [id number] 2.16.840.1.240994.3.579.2.727 1959 Unknown [id number] 1959 Unknown [id number] 2.16.840.1.515363.19 Social History Date Type Detail Facility Start: 03-29-2018 End: 10-01-2023 Tobacco smoking status NHIS Former smoker [facility] Work Phone: Start: 1965 Sex Assigned At Not on file O [facility] Work Phone: Start: 03-29-2018 End: 01-10-2022 Tobacco Comment Quit 10/2017 [facility] Start: 09-03-2018 End: 01-23-2023 Alcohol intake No [facility] Start: 05-06-2019 End: 07-31-2023 Alcohol intake Current non-drinker of alcohol (finding) [facility] Start: 09-09-2019 End: 01-10-2022 Tobacco use and exposure Never used [facility] Exposure to SARS-CoV -2 (event) Not sure [facility] History of tobacco use Current smoker [facility] Start: 07-25-2022 End: 01-23-2023 History of Social function [facility] Start: 12-31-2017 Gender identity Identifies as male gender (finding) [facility] Tobacco smoking status Never [facility] Functional Status Date Assessment Result Facility 10-01-2023 Functional Status N/A [facility] Clinical Notes 07-12-2021 to 01-28-2024 Tra Vale Jr., DO - 07/31/2023 9:00 AM EDTAddendum Note - Tra Vale Jr., DO - 07/31/2023 9:00 AM EDTAddendum Note - Tra Vale Jr., DO - 07/31/2023 9:00 AM EDT Note Date & Type Note Facility 01-28-2024 Note Patient Education Nutrition BMI for Adults Body mass index (BMI) is a number found using a person's weight and height. BMI can help tell how much of a person's weight is made up of fat. BMI does not measure body fat directly. It is used instead of tests that directly measure body fat, which can be difficult and expensive. What are BMI measurements used for? BMI is useful to: ??? Find out if your weight puts you at higher risk for medical problems. ??? Help recommend changes, such as in diet and exercise. This can help you reach a healthy weight. BMI screening can be done again to see if these changes are working. How is BMI calculated? Your height and weight are measured. The BMI is found from those numbers. This can be done with U.S. or metric measurements. Note that charts and online BMI calculators are available to help you find your BMI quickly and easily without doing these calculations. To calculate your BMI in U.S. measurements: 1. Measure your weight in pounds (lb). 2. Multiply the number of pounds by 703. ??? So, for an adult who weighs 150 lb, multiply that number by 703: 150 x 703, which equals 105,450. 3. Measure your height in inches. Then multiply that number by itself to get a measurement called inches squared. ??? So, for an adult who is 70 inches tall, the inches squared measurement is 70 inches x 70 inches, which equals 4,900 inches squared. 4. Divide the total from step 2 (number of lb x 703) by the total from step 3 (inches squared): 105,450 ? 4,900 = 21.5. This is your BMI. To calculate your BMI in metric measurements: 1. Measure your weight in kilograms (kg). ??? For this example, the weight is 70 kg. 2. Measure your height in meters (m). Then multiply that number by itself to get a measurement called meters squared. ??? So, for an adult who is 1.75 m tall, the meters squared measurement is 1.75 m x 1.75 m, which equals 3.1 meters squared. 3. Divide the number of kilograms (your weight) by the meters squared number. In this example: 70 ? 3.1 = 22.6. This is your BMI. What do the results mean? BMI charts are used to see if you are underweight, normal weight, overweight, or obese. The following guidelines will be used: ??? Underweight: BMI less than 18.5. ??? Normal weight: BMI between 18.5 and 24.9. ??? Overweight: BMI between 25 and 29.9. ??? Obese: BMI of 30 or above. BMI is a tool and cannot diagnose a condition. Talk with your health care provider about what your BMI means for you. Keep these notes in mind: ??? Weight includes fat and muscle. Someone with a muscular build, such as an athlete, may have a BMI that is higher than 24.9. In cases like these, BMI is not a correct measure of body fat. ??? If you have a BMI of 25 or higher, your provider may need to do more testing to find out if excess body fat is the cause. ??? BMI is measured the same way for males and females. Females usually have more body fat than males of the same height and weight. Where to find more information For more information about BMI, including tools to quickly find your BMI, go to: ??? Centers for Disease Control and Prevention: cdc.gov ??? [place] Heart Association: heart.org ??? National Heart, Lung, and Blood [place]: nhlbi.nih.gov This information is not intended to replace advice given to you by your health care provider. Make sure you discuss any questions you have with your health care provider. Document Revised: 12/07/2022 Document Reviewed: 11/30/2022 Elsevier Patient Education ? 2023 [employer]. [facility] 10-01-2023 Hospital Discharg e instructions Patient Education 10/01/2023 14:18:46 Kidney Stones, Vleb-rl-Jhtv Kidney Stones Kidney stones are rock-like masses [...] Follow these instructions at home: Medicines Take lwin-fco-rnpzqzw and prescription medicines only as told by [...] provider. Document Revised: 11/21/2021 Document Reviewed: 11/21/2021 [employer] Patient Education 2022 [place] [employer]. Follow Up Care 2023 13:55:17 With:BABATUNDE MASON, Yusuf Cortés, URL Address: [facility] [address], [place] [address] [phone] When: Unknown [facility] 10-01-2023 Note Urology Office/Clini c Note Chief [...] -Start Tamsulosin 0.4mg bid. Rx sent to [facility] [place]. -Schedule CT AP wo con. Will call pt with results. -Consider metabolic workup in future 2. Screening PSA (prostate specific antigen) (Z12.5: Encounter for screening for malignant neoplasm of prostate) Last PSA 02/15/21 - 0.92. Unable to find more recent level on record. -Obtain repeat PSA level soon Follow-up With When Contact Information BABATUNDE MASON, Yusuf Cortés, URL [facility] [address] [place] [address] [phone] Additional Instructions: pt to be called with CT results Patient Education Kidney Stones, Jvop-ks-Svws IBecca, personally scribed for Dr. Pollard on 10/01/2023 14:19:31. . Documentation recorded by the scribe, Becca Patel, accurately reflects the services(s) I performed and decisions made by me. Authenticated by Dr. Pollard on 10/01/2023 14:21:17. Problem List/Past Medical History Ongoing Allergic rhinitis Anemia Anxiety 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 Contusion COVID-19 [...] mg Cap, See Instructions ipratropium Nasal 0.03% [place], See In (more content not included)... [facility] Comment on above: Result Comment: Elec tronically Signed By: Yusuf POLLARD MD\.br\Date and Time Signed: 10/01/23 14:21 EDT\.br\Electronically Co-Signed By: Becca Patel.br\Date and Time Co-Signed: 10/01/23 14:19 EDT 10-01-2023 [...] these instructions at home: Medicines ? Take pzrr-rit-cbrviux and prescription medicines only as told by [...] provider. Document Revised: 11/21/2021 Document Reviewed: 11/21/2021 Elsevier Patient Education ? 2022 [employer]. [facility] 08-01-2023 Note PROCEDURE: 48-hour H olter monitor [...] BY: Anton Acevedo M.D. ca Dictated: 07/31/2023 [id number] Transcribed: 07/31/2023 cc:Rodrigo Brink M.D. [facility] Comment on above: Result Comment: Elec tronically Signed By: Kristina MASON, Anton Enriquez\.br\Date and Time Signed: 08/01/23 10:55 EDT 07-31-2023 History of Presen t illness Narrative Subjective History of Present Illness Patient states he seen a detective youth bureau Dr. Fawad Driver but they did not [...] is intact. Motor: Weakness present. Comments: Decreased supervisor drawing strength both hands Neurological Exam Mental Status Alert. Oriented to person, place, and time. Cranial Nerves CN III, IV, : Extraocular movements intact bilaterally. Extraocular movements intact bilaterally. Pupils equal round and reactive to light bilaterally. Sensory Normal sensation. Decreased supervisor drawing strength both hands. Assessment and Plan Encounter [...] anemia Psoriasis Plaque psoriasis Hyperchromic anemia Methotrexate, 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, current use Long-term current use of high [...] 12.7 and still is at 13.0 4. 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 Solano in [place]. 13. TB test was negative 14. Negative HLA-B27, ANCA, JOVAN, Hep A&B&C serology, Celiac, CCP, 15. KRISTIE level was normal at 29 16. Hold [...] supply on medications. 30. Urology Follow-up per [place] 31. Follow-up with me in 6 months documented in this encounter [facility] 07-31-2023 Miscellaneous Notes Addended by: TRA VALE on: 07/31/2023 09:22 AM Modules accepted: Orders documented in this encounter [facility] 07-31-2023 Note Addended by: TRA VILLALPANDO on: 07/31/2023 09:22 AM Modules accepted: Orders [facility] 01-23-2023 History of Presen t illness Narrative Subjective History of Present Illness Patient states he seen a detective youth bureau Dr. Fawad Driver but they did not [...] is intact. Motor: Weakness present. Comments: Decreased supervisor drawing strength both hands Neurological Exam Mental Status Alert. Oriented to person, place, and time. Cranial Nerves CN III, IV, : Extraocular movements intact bilaterally. Extraocular movements intact bilaterally. Pupils equal round and reactive to light bilaterally. Sensory Normal sensation. Decreased supervisor drawing strength both hands. Assessment and Plan Encounter Diagnoses Name Primary? 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 Hgb was low at 12.7 4. 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 Allergy to Humira - makes the psoriasis worse 6. Allergy to Cosentyx - makes the psoriasis worse 7. Call if need Rx's 8 Enbrel did not help 9. Remicade did not help 10. Methotrexae did not help 11. Otezla did not help 12. Chronic Pain Management F/U per Dr. Solano in [place]. 13. TB test was negative 14. Negative HLA-B27, ANCA, JOVAN, Hep A&B&C serology, Celiac, CCP, 15. KRISTIE level was normal at 29 16. Hold [...] Tatz per dermatology documented in this encounter [facility] 07-25-2022 History of Presen t illness Narrative History of Present Illness Patient states he seen a detective youth bureau Dr. Fawad Driver but they did not [...] is intact. Motor: Weakness present. Comments: Decreased supervisor drawing strength both hands Psychiatric: Mood and Affect: Mood normal. Behavior: Behavior normal. Thought Content: Thought content normal. Judgment: Judgment normal. Neurological Exam Mental Status Alert. Oriented to person, place, and time. Cranial Nerves CN III, IV, : Extraocular movements intact bilaterally. Extraocular movements intact bilaterally. Pupils equal round and reactive to light bilaterally. Sensory Normal sensation. Decreased supervisor drawing strength both hands. Assessment and Plan Encounter Diagnoses Name Primary? 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 Hgb is low at 12.7 4. 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 Solano in [place]. 13. TB test was negative 14. Negative HLA-B27, ANCA, JOVAN, Hep A&B&C serology, Celiac, CCP, 15. KRISTIE level was normal at 29 16. Hold [...] copy to PCP documented in this encounter [facility] 06-17-2022 Evaluation note Encounter Date Diagnosis [...] your family doctor for recheck this week. [employer] Other 03-14-2023 NoteCONSULTATION CONSULTATION DATE: 06/13/2022 FOLLOW [...] asked him to decrease the use of Chromo to 45 pills to last him one month's time. He just recently had a prescription filled for Chromo 60 pills. I have asked him to make this last for six weeks. We will have him return to the office in six weeks' time or sooner if needed.[facility] [id number] NoteCONSULTATION CONSULTATION DATE: 02/16/2022 HISTORY OF PRESENT ILLNESS: This is a pleasant, 56-year-old gentleman returning to the clinic for a three month follow up for chronic neck and lower back pain. The patient had radiofrequency ablations to his cervical area in August of 2021. Patient has had pain improvement since then, but does have residual tightness. Medications currently include diclofenac 75 mg b.i.d., Chromo 5/325 b.i.d., gabapentin 300 mg b.i.d. and [...] or injuries. 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 Fawad Driver but they did not [...] his 6 Month F/U. Patient states his Advanced Manufacturing Technician stopped the Stelara and started Taltz. Patient [...] is intact. Motor: Weakness present. Comments: Decreased supervisor drawing strength both hands Psychiatric: Mood and Affect: Mood normal. Behavior: Behavior normal. Thought Content: Thought content normal. Judgment: Judgment normal. Neurological Exam Mental Status Alert. Oriented to person, place, and time. Cranial Nerves CN III, IV, : Extraocular movements intact bilaterally. Extraocular movements intact bilaterally.Pupils equal round and reactive to light bilaterally. Sensory Normal sensation. Decreased supervisor drawing strength both hands. Assessment and Plan Encounter Diagnoses Name Primary? 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 Time was spent with [...] Pain Management F/U per Dr. Solano in [place]. 13. TB test was negative 14. Negative HLA-B27, ANCA, JOVAN, Hep A&B&C serology, Celiac, CCP, 15. KRISTIE level was normal at 29 16. Hold [...] me in 6 months documented in this [facility]08-25-2022 NoteCONSULTATION PROCEDURE DATE: 11/24/2021 PROCEDURE NOTE [...] will be followed up in the office.[facility] [id number] NoteCONSULTATION CONSULTATION DATE: 10/27/2021 HISTORY OF PRESENT [...] a menthol heat rub. Current medications include Chromo 5/325 b.i.d., diclofenac 75 mg b.i.d., gabapentin [...] Patient agrees with this plan of care.[facility] [id number] History of Present illness Narrative* Tra Vale Jr., DO - 07/12/2021 8:30 AM EDT History of Present Illness Patient states he seen a detective youth bureau Dr. Fawad Driver but they did not [...] is intact. Motor: Weakness present. Comments: Decreased supervisor drawing strength both hands Psychiatric: Mood and Affect: Mood normal. Behavior: Behavior normal. Thought Content: Thought content normal. Judgment: Judgment normal. Neurological Exam Mental Status Alert. Oriented to person, place, and time. Cranial Nerves CN III, IV, : Extraocular movements intact bilaterally. Extraocular movements intact bilaterally.Pupils equal round and reactive to light bilaterally. Sensory Normal sensation. Decreased supervisor drawing strength both hands. Assessment and Plan Encounter Diagnoses Name Primary? Psoriatic arthritis Psoriatic spondylitis Psoriasis Plaque psoriasis Anemia, unspecified type Methotrexate, 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, current use Long-term current use of high risk medication other than anticoagulant USP current use of systemic steroids USP current use of non-steroidal anti-inflammatories (NSAID) History [...] Pain Management F/U per Dr. Solano in [place]. 13. TB test was negative 14. Negative HLA-B27, ANCA, JOVAN, Hep A&B&C serology, Celiac, CCP, 15. KRISTIE level was normal at 29 16. Hold [...] me in 6 months [facility] Future Appointments Appointment Date:11/15/2022 04:40:00 PM Scheduled Provider:Rodrigo Brink MD Location:[facility] Future Appointments Appointment Date:02/15/2023 11:20:00 AM Scheduled Provider:Rodrigo Brink MD Location:[facility] Appointment Type: Open Diagnostic Tests Pending * Comprehensive Metabolic Panel 11/15/22 * Vitamin B12 Level 11/15/22 * Folate Level 11/15/22 [facility] Future Appointments Appointment Date:08/16/2023 01:15:00 PM Scheduled Provider:Rodrigo Brink MD Location:[facility] Appointment Type: Open Appointment Date:10/01/2023 01:00:00 PM Scheduled Provider:Yusuf POLLARD MD Location:[facility] Appointment Type:URO New Patient Future Scheduled Tests Radiology* Echo Transthoracic Complete 05/17/23 [facility] Future Appointments Appointment Date:03/20/2024 10:00:00 AM Scheduled Provider:Rodrigo Brink MD Location:[facility] Appointment Type: Open Diagnostic Tests Pending * PSA Screen, Total 10/01/23 Future Scheduled Tests Radiology* Echo Transthoracic Complete 05/17/23 [facility]* Diagnosis 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 Psoriatic arthritis Psoriatic arthropathy Psoriatic spondylitis Psoriatic arthropathy Psoriasis Other psoriasis Plaque psoriasis Other psoriasis Anemia, unspecified type Methotrexate, 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, current use Encounter for long-term (current) use of other medications Long-term current use of high risk medication other than anticoagulant USP current use of systemic steroids Encounter for long-term (current) use of steroids USP current use of non-steroidal anti-inflammatories (NSAID) Encounter [...] cervical intervertebral disc [facility] Diagnosis Psoriatic arthritis- Primary Psoriatic arthropathy 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 Psoriatic arthropathy Plaque psoriasis Other psoriasis Psoriasis Other psoriasis SAPHO syndrome Traumatic spondylopathy History of psoriatic arthritis Personal history of arthritis USP current use of non-steroidal anti-inflammatories (NSAID) Encounter for long-term (current) use of non-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-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 Long-term current use of high risk medication other than anticoagulant Methotrexate, 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, current use Encounter for long-term (current) use of other medications Vitamin D deficiency Unspecified vitamin D deficiency [facility] Diagnosis Psoriatic arthritis- Primary Psoriatic arthropathy 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] osteoarthrosis, lower leg [facility] Diagnosis Psoriatic arthritis- Primary Psoriatic arthropathy 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 Psoriatic arthropathy Plaque psoriasis Other psoriasis Psoriasis Other psoriasis SAPHO syndrome Traumatic spondylopathy History of kidney stones Personal history of urinary calculi History of psoriatic arthritis Personal history of arthritis Long-term current use of high risk medication other than anticoagulant 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, 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, 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 Encounter for long-term (current) use [...] osteoarthrosis, lower leg [facility] Diagnosis Psoriatic arthritis- Primary [...] Other psoriasis Hyperchromic anemia Anemia, unspecified Methotrexate, 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, current use Encounter for long-term (current) use [...] interphalangeal (DIP) joint [facility] - Reported* Type Description Date Medical History psoriasis [facility] Other Hospital course Narrative No data available for this section [facility] No data available for this section [facility] No data available for this section [facility] Reason for Referral Status Reason Specialty Diagnoses / Procedures Re ferred By Contact Referred To Contact New Request Multispecialty Diagnoses Psoriatic arthritis 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 Psoriasis Fatigue, unspecified type 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, 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, current use Long-term current use of high risk medication other than anticoagulant Lumbosacral spondylosis without myelopathy Disorder of bone and cartilage Plaque psoriasis Cervicalgia Dorsalgia Chronic pain of both shoulders Bilateral elbow joint pain Bilateral wrist pain Bilateral hand pain Chronic pain of both knees Ela Vidales, Tra Vasquez, DO [address] [place] [address] Status Reason Specialty Diagnoses / Procedures Referred By Contact Referred To Contact Pending Review Diagnoses Vitamin D deficiency Tra Vale Jr., DO [address] [facility] [place] [address] Status Reason Specialty Diagnoses / Procedures Re ferred By Contact Referred To Contact New Request Sports Ortho and Primary Care Sports Diagnoses Psoriatic arthritis 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 Psoriasis Anemia, unspecified type USP current use of non-steroidal anti-inflammatories (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, 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, current use Long-term current use of high [...] Plaque psoriasis Tra Vale Jr., DO [address] [id number] Status Reason Specialty Diagnoses / Procedures Re ferred By Contact Referred To Contact New Request Occupational Therapy Diagnoses Psoriatic arthritis 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, 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, current use Long-term current use of high [...] type Plaque psoriasis Tra Vale Jr., DO [address] [place] [address] Status Reason Specialty Diagnoses / Procedures Re ferred By Contact Referred To Contact Closed Diagnoses Psoriatic arthritis Psoriatic spondylitis Psoriasis Plaque psoriasis Anemia, unspecified type Methotrexate, 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, current use Long-term current use of high risk medication other than anticoagulant 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 History of Present Illness Presence of Pain: complains of pain/discomfort (03/29/18 0721), Pain Location: (Everywhere) (03/29/18720), Select Pain Scale: [...] he recently moved to [place] from [place]. Patient was seeing a Spreading Machine Operator and Advanced Manufacturing Technician there for his psorasis and PsA. Patient states he seen a detective youth bureau Dr. Fawad Driver but they did not [...] negative Romberg sign. Gait abnormal. Cane. 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 Fawad Driver but they did not [...] negative Romberg sign. Gait abnormal. Cane. 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 Kristie level is normal at 29 19. Hold [...] Present Illness Patient states he seen a detective youth bureau Dr. Fawad Driver but they did not help treat is psoriasis. DX with PsA 2011. Humira and cosentyx made the psoriasis worse and Methotrexate and Enbrel and Remicade and otezla made quit working. Stelara started 05/2018. Stelara is helping and not bothering the patient. Presence of Pain: complains of pain/discomfort (09/03/181130), Pain Location: (Everywhere) (09/03/181130), Select Pain Scale: DVPRS (Defense and Veterans Pain Rating Scale) (Adult-Cognitively Intact) (09/03/181130), DVPRS: Rest: 10- severe pain (09/03/181130), DVPRS: Activity: 10- severe pain (09/03/181130), Select Pain Scale: DVPRS (Defense and Veterans Pain Rating Scale) (Adult-Cognitively Intact) (09/03/181130), Pain Duration: 4 Month F/U (09/03/181130), Pain Frequency: constant (09/03/181130), Pain Quality: aching (09/03/181130). Due to complex issues I spent at [...] Pain Management F/U per Dr. Solano in [place]. 15. Disability forms filled out for patient today. 16. TB test was negative 17. Negative HLA-B27, ANCA, JOVAN, Hep A&B&C serology, Celiac, CCP, 18. Kristie level was normal at 29 19. Hold [...] in 4 months documented in this encounter* Ela Vidales, Tra Vasquez, DO - 05/06/2019 9:15 AM EST History of Present Illness Patient states he seen a detective youth bureau Dr. Fawad Driver but they did not help treat is psoriasis. DX with PsA 2011. Humira and cosentyx made the psoriasis worse and Methotrexate and Enbrel and Remicade and otezla made quit working. Stelara started 05/2018. Raghavlara has been helping and not bothering the [...] present. Gait: Gait abnormal. Comments: Cane. 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 Solano in [place]. 15. TB test was negative 16. Negative HLA-B27, ANCA, JVOAN, Hep A&B&C serology, Celiac, CCP, 17. KRISTIE level was normal at 29 18. Hold [...] Present Illness Patient states he seen a detective youth bureau Dr. Fawad Driver but they did not [...] present. Gait: Gait abnormal. Comments: Cane. 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 Solano in [place]. 15. TB test was negative 16. Negative HLA-B27, ANCA, JOVAN, Hep A&B&C serology, Celiac, CCP, 17. KRISTIE level was normal at 29 18. Hold [...] this encounter* Tra Vale Jr., DO - 01/13/2020 8:30 AM EDT History of Present Illness Patient states he seen a detective youth bureau Dr. Fawad Driver but they did not help treat is psoriasis. DX with PsA 2011. Humira and cosentyx made the psoriasis worse and Methotrexate and Enbrel and Remicade and otezla quit working. Stelara started 05/2018. Raghavlara has been helping and not bothering the [...] last appointment. 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 Motor: Weakness present. Comments: Decreased supervisor drawing strength both hands Psychiatric: Mood and Affect: Mood normal. Behavior: Behavior normal. Thought Content: Thought content normal. Judgment: Judgment normal. Neurologic Exam Mental Status Oriented to person, place, and time. Cranial Nerves CN III, IV, Pupils are equal, round, and reactive to light. Extraocular motions are normal. Assessment and Plan Encounter Diagnoses Name Primary? 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 Solano in [place]. 15. TB test was negative 16. Negative HLA-B27, ANCA, JOVAN, Hep A&B&C serology, Celiac, CCP, 17. KRISTIE level was normal at 29 18. Hold [...] in this encounter* Tra Vale Jr., - 01/07/2019 9:15 AM EDT History of Present Illness Patient states he seen a detective youth bureau Dr. 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 Solano in [place]. 15. F/U with me in 4 months 16. TB test was negative 17. Negative HLA-B27, ANCA, JOVAN, Hep A&B&C serology, Celiac, CCP, 18. Kristie level was normal at 29 19. Hold [...] Present Illness Patient states he seen a detective youth bureau Dr. Fawad Driver but they did not help treat is psoriasis. DX with PsA 2011. Humira and cosentyx made the psoriasis worse and Methotrexate and Enbrel and Remicade and otezla quit working. Stelara started 05/2018. Lindsayra has been helping and not bothering the [...] him. Patient states he has seen a detective youth bureau Shai and she recommends Taltz instead of [...] is intact. Motor: Weakness present. 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 3. Call if need Rx's 4. 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 Solano in [place]. 15. TB test was negative 16. Negative HLA-B27, ANCA, JOVAN, Hep A&B&C serology, Celiac, CCP, 17. KRISTIE level was normal at 29 18. 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) Encounter for long-term (current) use of non-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-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 USP current use of systemic steroids Encounter for long-term (current) use of steroids Methotrexate, 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, current use Encounter for long-term (current) use [...] spondylopathy Psoriasis Other psoriasis Anemia, unspecified type USP current use of non-steroidal anti-inflammatories (NSAID) Encounter for long-term (current) use of non-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-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 Encounter for long-term (current) use of steroids Methotrexate, 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, current use Encounter for long-term (current) use [...] spondylopathy Psoriasis Other psoriasis Anemia, unspecified type 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) Encounter for long-term (current) use of non-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-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 USP current use of systemic steroids Encounter for long-term (current) use of steroids Methotrexate, 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, current use Encounter for long-term (current) use [...] of psoriatic arthritis Personal history of arthritis USP current use of non-steroidal anti-inflammatories (NSAID) Encounter for long-term (current) use of non-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-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 Encounter for long-term (current) use of steroids Long-term current use of high risk medication other than anticoagulant Methotrexate, 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, current use Encounter for long-term (current) use [...] of psoriatic arthritis Personal history of arthritis USP current use of non-steroidal anti-inflammatories (NSAID) Encounter for long-term (current) use of non-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-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 Encounter for long-term (current) use of steroids Long-term current use of high risk medication other than anticoagulant Methotrexate, 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, current use Encounter for long-term (current) use [...] of psoriatic arthritis 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) Encounter for long-term (current) use of non-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-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 Methotrexate, 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, current use Encounter for long-term (current) use [...] Other psoriasis Plaque psoriasis Other psoriasis 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, 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, 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 Encounter for long-term (current) use of other medications Long-term current use of high risk medication other than anticoagulant USP current use of non-steroidal anti-inflammatories (NSAID) Encounter [...] psoriasis Other psoriasis Anemia, unspecified type Methotrexate, 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, current use Encounter for long-term (current) use of other medications Long-term current use of high risk medication other than anticoagulant 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 Encounter for long-term (current) use of steroids USP current use of non-steroidal anti-inflammatories (NSAID) Encounter [...] psoriasis Other psoriasis Anemia, unspecified type Methotrexate, 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, current use Encounter for long-term (current) use of other medications Long-term current use of high risk medication other than anticoagulant 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 Patient was seeing a Spreading Machine Operator and Advanced Manufacturing Technician there for his psorasis and PsA. Patient states he seen a detective youth bureau Dr. Fawad Driver but they did not [...] last appointment. 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 Patient states he has seen a detective youth bureau Bear antoine and she recommends Taltz instead [...] his 6 Month F/U. Patient states his Advanced Manufacturing Technician stopped the Stelara and started Taltz. Patient [...] section and content) DATE CREATED AUTHOR 07/29/2020 [facility] DATE CREATED AUTHOR AUTHOR'S ORGANIZ ATION 03/21/2021 [facility] dical Specialist DATE CREATED AUTHOR AUTHOR'S ORGANIZ ATION 01/11/2022 [facility] DATE CREATED AUTHOR AUTHOR'S ORGANIZ ATION 08/12/2022 [facility] DATE CREATED AUTHOR AUTHOR'S ORGANIZ ATION 11/21/2022 [facility] DATE CREATED AUTHOR AUTHOR'S ORGANIZ ATION 08/01/2023 [facility] DATE CREATED AUTHOR AUTHOR'S ORGANIZ ATION 02/06/2024 [facility] Care Teams (unrecognized sec tion and content) Centralized Traffic Control Operator Relationship Specialty Start Date End Date Rodrigo Luz MD [address], [facility] [place] [address] PCP - General Family Medicine 12/31/17 Centralized Traffic Control Operator Relationship Specialty Start Date End Date Rodrigo Luz MD [address], [facility] [place] [address] PCP - General Family Medicine 12/31/17 Centralized Traffic Control Operator Relationship Specialty Start Date End Date Rodrigo Luz MD [address] [place] [address] PCP - General Family Medicine 12/31/17 Centralized Traffic Control Operator Relationship Specialty Start Date End Date Rodrigo Luz MD [address] [id number] PCP - General [facility] 12/31/17 Centralized Traffic Control Operator Relationship Specialty Start Date End Date Rodrigo Brink MD [address] [id number] PCP - General Family Medicine 07/31/23 FOR [...] BE BASED ON THE PRIMARY CLINICAL RECORDS. [facility] [employer] [facility]. provides no warranty or guarantee of the accuracy or completeness of information in this document.
--- NOTE | 2024-02-06 07:59 | PM.CN ---
Consult Note: HPI Data of Consult Patient: known to practice within the last 3 years Requesting Physician: Negra Solorzano NP Primary Care Provider: RODRIGO BRINK Consult Narrative Reason for consult: f/u Narrative: Patrick Buckley a pleasant 58 year old male presents for evaluation and management of chronic pain. Today pain is significantly worse in bilateral knees currently 9/10 increasing to 10/10. Patient reports pain varies. Pain is increased with sitting, standing, walking, lifting, bending, stairs, ADLs, activity. Pain decreased with medications and heat/ice. Patient has been taking tizanidine 4mg BID PRN, gabapetin 600mg AM 300mg afternoon 600mg HS and diclofenac 75mg BID. Patients prior EMG was consistent with cervical radiculopathy at C8. Patient continues to have numbness tingling weakness of BUE and BLE. No falls, no loss of bowel or bladder. Has been evaluated by Taj Singh who recommends surgical intervention for cervical DDD and radiculopathy, not scheduled at this time as pt started a new job and has new insurance. Pt follows with rheumatology Q6 months and is on methotrexate for psoriatic arthritis. Pt has not recently attended PT due to cost and work schedule. cc:: CC: Negra Solorzano NP Review of Systems ROS Status of ROS 10 or more systems reviewed and unremarkable except as noted in history and below Musculoskeletal Reports: back pain, neck pain and joint pain PFSH PFS Medical History HIRAL (acute kidney injury) ?N17.9 - Acute kidney failure, unspecified (ICD-10) Sepsis ?A41.9 - Sepsis, unspecified organism (ICD-10) Cellulitis ?L03.90 - Cellulitis, unspecified (ICD-10) Psoriatic arthritis ?L40.50 - Arthropathic psoriasis, unspecified (ICD-10) Osteoarthritis ?M19.90 - Unspecified osteoarthritis, unspecified site (ICD-10) Upper back pain ?M54.9 - Dorsalgia, unspecified (ICD-10) Low back pain ?M54.50 - Low back pain, unspecified (ICD-10) Neck pain ?M54.2 - Cervicalgia (ICD-10) Numbness and tingling ?R20.0 - Anesthesia of skin (ICD-10) ?R20.2 - Paresthesia of skin (ICD-10) Hypertension ?I10 - Essential (primary) hypertension (ICD-10) Surgical History H/O umbilical hernia repair ?Z98.890 - Other specified postprocedural states (ICD-10) ?Z87.19 - Personal history of other diseases of the digestive system (ICD-10) H/O ventral hernia repair ?Z98.890 - Other specified postprocedural states (ICD-10) ?Z87.19 - Personal history of other diseases of the digestive system (ICD-10) H/O gastric bypass ?Z98.84 - Bariatric surgery status (ICD-10) History of herniorrhaphy ?Z98.890 - Other specified postprocedural states (ICD-10) ?Z87.19 - Personal history of other diseases of the digestive system (ICD-10) History of appendectomy ?Z90.49 - Acquired absence of other specified parts of digestive tract (ICD-10) Family History Mother Family history of DVT Family history of ovarian cancer Family history of lung cancer Brother Family history of myocardial infarction Family history of COPD (chronic obstructive pulmonary disease) Social History Highest level of school completed/degree received: some college, no degree Little interest or pleasure in doing things: not at all Feeling down, depressed, or hopeless: not at all Do you think of yourself as: lesbian/valles/homosexual Gender Identity: male Meds Home Medications and Allergies Home Medications ?Medication ?Instructions ?Recorded ?Confirmed ?Type amitriptyline 25 mg tablet 25 mg PO .HS 10/02/22 01/14/24 History azelastine 137 mcg-fluticasone 50 1 spray intranasal .QD 10/02/22 01/14/24 History mcg/spray nasal spray bisoprolol 10 1 tab PO .QD 10/02/22 01/14/24 History mg-hydrochlorothiazide 6.25 mg tablet calcium 500 mg (as 1 tab PO BID 10/02/22 01/14/24 History carbonate)-vitamin D3 5 mcg (200 unit) tablet (Oyster Shell Calcium-Vitamin D3) cetirizine 10 mg tablet 10 mg PO .QD 10/02/22 01/14/24 History cyanocobalamin (vitamin B-12) 1,000 mcg PO DAILY 10/02/22 01/14/24 History 1,000 mcg capsule diclofenac sodium 75 mg 75 mg PO BID PRN pain 10/02/22 01/14/24 History tablet,delayed release folic acid 1 mg tablet 1 mg PO .QD 10/02/22 01/14/24 History gabapentin 300 mg capsule 300 mg PO TID 10/02/22 01/14/24 History halobetasol propionate 0.05 % 1 applic topical BID 10/02/22 01/14/24 History topical cream methotrexate sodium 2.5 mg tablet 2.5 mg PO QWEEK 10/02/22 01/14/24 History multivitamin 1 tab PO DAILY 10/02/22 01/14/24 History tizanidine 4 mg tablet 4 mg PO BID PRN muscle spasticity 10/02/22 01/14/24 History triamcinolone acetonide 0.1 % 1 applic topical BID 10/02/22 01/14/24 History topical cream amlodipine 5 mg tablet 5 mg PO .QD 01/14/24 01/14/24 History bupropion HCl 300 mg 24 hr tablet, 300 mg PO .QD 01/14/24 01/14/24 History extended release cefdinir 300 mg capsule 600 mg (2 x 300 mg) PO DAILY #20 01/17/24 Rx caps clindamycin HCl 300 mg capsule 300 mg PO Q6H 10 days #40 caps 01/17/24 Rx Allergies Allergy/AdvReac Type Severity Reaction Status Date / Time adalimumab (From Humira) Allergy Verified 07/17/23 08:17 morphine Allergy Verified 07/17/23 08:17 secukinumab (From Cosentyx) Allergy Verified 07/17/23 08:17 Exam Constitutional Documenting provider has reviewed patient's vital signs: yes Common normals: no apparent distress, oriented x3, healthy appearing, alert and well nourished General appearance: cooperative [facility] Common normals: normocephalic, hearing grossly normal bilaterally and moist oral mucous membranes Head and scalp: normocephalic Eye Common normals: PERRL Pupil: PERRL Neck & C-Spine Common normals: full ROM General: normal visual inspection Cervical spine: cervical ROM abnormal and pain with cervical ROM Chest Common normals: inspection of chest normal Respiratory Common normals: normal respiratory effort, no retractions and no use of accessory muscles Back & Pelvis Thoracic spine/upper back: pain with ROM Lumbar spine/lower back: pain with ROM Extremity Right lower extremity: knee joint Left lower extremity: knee joint Other: bilateral knees enlarged diameter, mild edema, crepitus on exam. no instability with medial or lateral stress testing. edema to BLE, legs wrapped at this time. recent cellulitis Neuro Common normals: oriented x3, CN's II-XII intact bilaterally, moves all extremities, no focal motor deficits, no sensory deficits noted and deep tendon reflexes 2+ bilaterally Sensorium/orientation: alert Motor exam: strength 5/5 throughout and no movement abnormalities noted Psych Common normals: mental status grossly normal, thought process normal, cooperative, affect normal, speech normal and activity/motor behavior normal Speech: normal speech Thought process: normal thought process Results Additional Findings Additional findings: If on a controlled substance or opioids, I have checked an [place]AR[place] report on this patient and there are no aberrancies noted in the prescribing history.??If on a controlled substance or opioid a drug screen was completed and reviewed within the last year, and if there has not been a drug screen completed we ordered one today to monitor higher risk, state monitored pain medication use. As part of providing excellent, safe, comprehensive care, the following was completed at our patient's visit: 1. A medication reconciliation and review to ensure accurate knowledge of current/active medications, including asking our patients to inform us about any [id number] medications or herbal remedies/nutritional supplements/alternative remedies. 2. A review to specifically ensure our patients have had annual screening for screening for depression, screening for tobacco use, and screening for unhealthy alcohol use. For concerning screenings had a discussion with the patient, provided patient education, and recommended follow-up with primary care provider when appropriate. If patient noted with a risk of falling, they received education on strength, gait, and balance training to prevent future risk of falling. Assessment and Plan Assessment and Plan (1) Bilateral primary osteoarthritis of knee: (2) Fibromyalgia: (3) Degenerative disc disease, cervical: (4) Cervical spinal stenosis: (5) Opioid-induced hyperalgesia: Assessment and Plan: significant improvement in hyperalgesia as well as overall mood since DC opioids (6) Lumbar spondylosis: (7) Cervical spondylosis: Plan update bilateral knee xray to assess OA, not interested in surgical intervention at this time. pt would like repeat joint injections as previously he had >50% improvement for 6 months from injections continue HEP as tolerated continue current medications f/u with Dr Francisco LUU, as planned. pt cannot undergo surgery right now as he started a new job continue f/u with PCP for cellulitis if no active infection/antibiotic therapy can proceed with bilateral knee injections under fluoroscopy with Dr Moraes
== END 2024-02-06 07:35 | disposition home or self-care (01) ==
LOC: PM 07:35
PROVIDERS: PCP Family Medicine; Visit Provider Nurse Practitioner
DX: M17.0 Bilateral primary osteoarthritis of knee (principal); M79.7 Fibromyalgia; M50.30 Other cervical disc degeneration, unspecified cervical region; M48.02 Spinal stenosis, cervical region; M47.816 Spondylosis without myelopathy or radiculopathy, lumbar region; M47.812 Spondylosis without myelopathy or radiculopathy, cervical region; R20.8 Other disturbances of skin sensation; T40.2X5A Adverse effect of other opioids, initial encounter; L40.3 Pustulosis palmaris et plantaris; L70.9 Acne, unspecified; D53.9 Nutritional anemia, unspecified; L40.9 Psoriasis, unspecified; L40.0 Psoriasis vulgaris; D64.89 Other specified anemias; Z79.631 Long term (current) use of antimetabolite agent; Z79.899 Other long term (current) drug therapy; Z87.2 Personal history of diseases of the skin and subcutaneous tissue; Z87.442 Personal history of urinary calculi; R94.4 Abnormal results of kidney function studies; E55.9 Vitamin D deficiency, unspecified; L40.53 Psoriatic spondylitis; L40.51 Distal interphalangeal psoriatic arthropathy; M19.031 Primary osteoarthritis, right wrist; M19.032 Primary osteoarthritis, left wrist; M16.0 Bilateral primary osteoarthritis of hip; M19.041 Primary osteoarthritis, right hand; M19.042 Primary osteoarthritis, left hand; M19.011 Primary osteoarthritis, right shoulder; M19.012 Primary osteoarthritis, left shoulder; M47.817 Spondylosis without myelopathy or radiculopathy, lumbosacral region; M75.41 Impingement syndrome of right shoulder; M75.42 Impingement syndrome of left shoulder; M65.90 Unspecified synovitis and tenosynovitis, unspecified site; M86.9 Osteomyelitis, unspecified; M85.80 Other specified disorders of bone density and structure, unspecified site
CPT/HCPCS: 36415; 82565; 84450; 84460; 85025; 85652; 86140; G0463

== ENCOUNTER 2024-02-06 08:23 | Outpatient (OUT) | payer OTHER, SELFPAY ==
[2024-02-06 09:02] LABS: Basophils Percent Auto 0.6 % (0.2-2.0); Eosinophils Absolute Auto 0.1 10^3/uL (0.0-0.7); Eosinophils Percent Auto 1.1 % (0.9-7.0); Hematocrit 38.7 % (42.0-54.0); Hemoglobin 12.6 g/dL (14.0-18.0); Immature Granulocytes Abs Auto 0.01 10^3/uL (0.00-0.03); Immature Granulocytes Pct Auto 0.1 % (0.0-0.5); Lymphocytes Absolute Auto 1.7 10^3/uL (1.2-3.8); Lymphocytes Percent Auto 23.8 % (20.5-60.0); Mean Corpuscular HGB Conc 32.6 g/dL (29.9-35.2); Mean Corpuscular Hemoglobin 34.9 pg (25.9-34.0); Mean Corpuscular Volume 107.2 fL (80.0-94.0); Mean Platelet Volume 9.8 fL (9.5-13.5); Monocytes Absolute Auto 0.9 10^3/uL (0.3-0.8); Monocytes Percent Auto 12.6 % (1.7-12.0); Neutrophils Absolute Auto 4.4 10^3/uL (1.4-6.5); Neutrophils Percent Auto 61.8 % (43.0-75.0); Platelet Count 228 10^3/uL (150-450); Red Blood Count 3.61 10^6/uL (4.70-6.10); Red Cell Distribution Width 13.8 % (11.0-15.0); White Blood Count 7.1 10^3/uL (4.0-11.0)
[2024-02-06 09:08] LABS: Erythrocyte Sedimentation Rate 8 mm/hr (<=20)
[2024-02-06 09:37] LABS: Alanine Aminotransferase 57 U/L (16-63); Aspartate Amino Transferase 21 U/L (15-37); C Reactive Protein <0.50 mg/dL (<=0.50); Estimated GFR (African America 43 (>=60 mL/min/1.73m^2); Estimated GFR (Non-African Ame 35 (>=60 mL/min/1.73m^2)
== END 2024-02-06 08:24 | disposition home or self-care (01) ==
LOC: LAB 08:28
PROVIDERS: PCP Family Medicine
DX: L40.50 Arthropathic psoriasis, unspecified (principal); M17.0 Bilateral primary osteoarthritis of knee; M19.031 Primary osteoarthritis, right wrist; M19.032 Primary osteoarthritis, left wrist; M16.0 Bilateral primary osteoarthritis of hip; M19.041 Primary osteoarthritis, right hand; M19.042 Primary osteoarthritis, left hand; M19.011 Primary osteoarthritis, right shoulder; M19.012 Primary osteoarthritis, left shoulder; M47.812 Spondylosis without myelopathy or radiculopathy, cervical region; M47.817 Spondylosis without myelopathy or radiculopathy, lumbosacral region; M75.41 Impingement syndrome of right shoulder; M75.42 Impingement syndrome of left shoulder; M50.30 Other cervical disc degeneration, unspecified cervical region; M65.90 Unspecified synovitis and tenosynovitis, unspecified site; M86.9 Osteomyelitis, unspecified; M85.80 Other specified disorders of bone density and structure, unspecified site; L40.3 Pustulosis palmaris et plantaris; L70.9 Acne, unspecified; D53.9 Nutritional anemia, unspecified; L40.9 Psoriasis, unspecified; L40.0 Psoriasis vulgaris; D64.89 Other specified anemias; Z79.631 Long term (current) use of antimetabolite agent; Z79.899 Other long term (current) drug therapy; Z87.2 Personal history of diseases of the skin and subcutaneous tissue; Z87.442 Personal history of urinary calculi; R94.4 Abnormal results of kidney function studies; E55.9 Vitamin D deficiency, unspecified; L40.53 Psoriatic spondylitis; L40.51 Distal interphalangeal psoriatic arthropathy
CPT/HCPCS: 36415; 82565; 84450; 84460; 85025; 85652; 86140

== ENCOUNTER 2024-05-20 13:03 | Outpatient (OUT) | payer OTHER, SELFPAY ==
[2024-05-20 13:28] LABS: Basophils Absolute Auto 0.1 10^3/uL (0.0-0.1); Basophils Percent Auto 0.8 % (0.2-2.0); Eosinophils Absolute Auto 0.1 10^3/uL (0.0-0.7); Eosinophils Percent Auto 1.2 % (0.9-7.0); Hematocrit 43.5 % (42.0-54.0); Hemoglobin 14.3 g/dL (14.0-18.0); Immature Granulocytes Abs Auto 0.02 10^3/uL (0.00-0.03); Immature Granulocytes Pct Auto 0.3 % (0.0-0.5); Lymphocytes Absolute Auto 1.8 10^3/uL (1.2-3.8); Lymphocytes Percent Auto 30.5 % (20.5-60.0); Mean Corpuscular HGB Conc 32.9 g/dL (29.9-35.2); Mean Corpuscular Hemoglobin 34.5 pg (25.9-34.0); Mean Corpuscular Volume 104.8 fL (80.0-94.0); Mean Platelet Volume 9.9 fL (9.5-13.5); Monocytes Absolute Auto 0.5 10^3/uL (0.3-0.8); Monocytes Percent Auto 8.8 % (1.7-12.0); Neutrophils Absolute Auto 3.5 10^3/uL (1.4-6.5); Neutrophils Percent Auto 58.4 % (43.0-75.0); Platelet Count 239 10^3/uL (150-450); Red Blood Count 4.15 10^6/uL (4.70-6.10); Red Cell Distribution Width 14.2 % (11.0-15.0)
[2024-05-20 13:53] LABS: Erythrocyte Sedimentation Rate <1 mm/hr (<=20)
[2024-05-20 14:25] LABS: Alanine Aminotransferase 118 U/L (16-63); Aspartate Amino Transferase 25 U/L (15-37); C Reactive Protein <0.50 mg/dL (<=0.50); Estimated GFR (African America >60 (>=60 mL/min/1.73m^2); Estimated GFR (Non-African Ame 53 (>=60 mL/min/1.73m^2)
== END 2024-05-20 13:04 | disposition home or self-care (01) ==
PROVIDERS: PCP Family Medicine
DX: M19.041 Primary osteoarthritis, right hand (principal); M75.41 Impingement syndrome of right shoulder; M16.0 Bilateral primary osteoarthritis of hip; M19.011 Primary osteoarthritis, right shoulder; M17.0 Bilateral primary osteoarthritis of knee; M19.012 Primary osteoarthritis, left shoulder; M19.031 Primary osteoarthritis, right wrist; M19.042 Primary osteoarthritis, left hand; M47.812 Spondylosis without myelopathy or radiculopathy, cervical region; M19.032 Primary osteoarthritis, left wrist; M75.42 Impingement syndrome of left shoulder; M50.30 Other cervical disc degeneration, unspecified cervical region; D53.9 Nutritional anemia, unspecified; D64.89 Other specified anemias; L40.9 Psoriasis, unspecified; L40.0 Psoriasis vulgaris; Z79.631 Long term (current) use of antimetabolite agent; Z79.899 Other long term (current) drug therapy; L40.50 Arthropathic psoriasis, unspecified; Z87.2 Personal history of diseases of the skin and subcutaneous tissue; Z87.442 Personal history of urinary calculi; R94.4 Abnormal results of kidney function studies; E55.9 Vitamin D deficiency, unspecified; L40.53 Psoriatic spondylitis; L40.51 Distal interphalangeal psoriatic arthropathy
CPT/HCPCS: 36415; 82565; 84450; 84460; 85025; 85652; 86140

== ENCOUNTER 2024-05-20 13:08 | Outpatient (OUT) | payer OTHER, SELFPAY ==
--- NOTE | 2024-05-20 13:38 | XR_ITS ---
The [address] [address] Patient Name: GLENDA VALENTE MRN: [id number] date: 1965 Sex: M Assigned Patient Location: [facility] Current Patient Location: PM Accession/Order Number: [id number] Exam Date: 05/20/2024 14:38 Report Date: 05/20/2024 15:12 At the request of: KEELEY PIERSON NP Procedure: XR knee UYEN 3V BILATERAL KNEES - 2 views each COMPARISON: 08/15/2019 CLINICAL DATA: Chronic bilateral knee pain. No history of injury. AP and lateral views were obtained. There is osteopenia. No acute fractures or dislocation are noted. Chronic fragmentation at the left tibial tubercle is again seen. There is slight narrowing of the lateral tibiofemoral joint compartments, left slightly greater than right. There is minor squaring off of the articular surfaces. No significant knee effusion is seen. XR/XR knee UYEN 3V IMPRESSION: IMPRESSION: OSTEOPENIA AND MINOR DEGENERATIVE CHANGES. NO ACUTE BONY FINDINGS. Impression dictated by: Khloe Rizvi M.D.05/20/2024 3:12 PM Dictation Location: [employer] Electronically authenticated by: [id number] Date: 05/20/2024 15:12
== END 2024-05-20 13:09 | disposition home or self-care (01) ==
LOC: RAD 13:08
PROVIDERS: PCP Family Medicine; Visit Provider Nurse Practitioner
DX: M17.0 Bilateral primary osteoarthritis of knee (principal); M19.041 Primary osteoarthritis, right hand; M16.0 Bilateral primary osteoarthritis of hip; M19.012 Primary osteoarthritis, left shoulder; M19.031 Primary osteoarthritis, right wrist; M19.042 Primary osteoarthritis, left hand; M47.812 Spondylosis without myelopathy or radiculopathy, cervical region; M19.032 Primary osteoarthritis, left wrist; M75.42 Impingement syndrome of left shoulder; M50.30 Other cervical disc degeneration, unspecified cervical region; D53.9 Nutritional anemia, unspecified; D64.89 Other specified anemias; L40.9 Psoriasis, unspecified; L40.0 Psoriasis vulgaris; Z79.631 Long term (current) use of antimetabolite agent; Z79.899 Other long term (current) drug therapy; L40.50 Arthropathic psoriasis, unspecified; Z87.2 Personal history of diseases of the skin and subcutaneous tissue; Z87.442 Personal history of urinary calculi; R94.4 Abnormal results of kidney function studies; E55.9 Vitamin D deficiency, unspecified; L40.53 Psoriatic spondylitis; L40.51 Distal interphalangeal psoriatic arthropathy
CPT/HCPCS: 36415; 73562; 82565; 84450; 84460; 85025; 85652; 86140

== ENCOUNTER 2024-05-28 07:41 | Outpatient (OUT) | payer OTHER, SELFPAY ==
--- NOTE | 2024-05-28 08:04 | P.CN_ITS ---
Consult Note: HPI Data of Consult Patient: known to practice within the last 3 years Requesting Physician: Negra Solorzano NP Primary Care Provider: RODRIGO BRINK Consult Narrative Reason for consult: f/u Narrative: Patrick Buckley a pleasant 59 year old male presents for evaluation of chronic bilateral knee and neck pain. longstanding hx of neck pain with radiculopathy, following with NS on a PRN basis at this time. pt has failed to benefit from greater than 6 weeks of provider guided HEP for chronic neck pain and bilateral knee pain. failed tylenol, motrin, heat, ice, and diclofenac gel. currently utilizes diclofenac, tizanidine, gabapentin. no recent falls or injuries. recently completed bilateral knee xray which is consistent with mild OA. Pain today 9/10 increasing to 10/10 with standing, walking, weight bearing. cc:: CC: Negra Solorzano NP Review of Systems ROS Status of ROS 10 or more systems reviewed and unremark able except as noted in history and below Musculoskeletal Reports: neck pain and joint pain PFSH PFSH Medical History HIRAL (acute kidney injury) ?N17.9 - Acute kidney failure, unspecified (ICD-10) Sepsis ?A41.9 - Sepsis, unspecified organism (ICD-10) Cellulitis ?L03.90 - Cellulitis, unspecified (ICD-10) Psoriatic arthritis ?L40.50 - Arthropathic psoriasis, unspecified (ICD-10) Osteoarthritis ?M19.90 - Unspecified osteoarthritis, unspecified site (ICD-10) Upper back pain ?M54.9 - Dorsalgia, unspecified (ICD-10) Low back pain ?M54.50 - Low back pain, unspecified (ICD-10) Neck pain ?M54.2 - Cervicalgia (ICD-10) Numbness and tingling ?R20.0 - Anesthesia of skin (ICD-10) ?R20.2 - Paresthesia of skin (ICD-10) Hypertension ?I10 - Essential (primary) hypertension (ICD-10) Surgical History H/O umbilical hernia repair ?Z98.890 - Other specified postprocedural states (ICD-10) ?Z87.19 - Personal history of other diseases of the digestive system (ICD-10) H/O ventral hernia repair ?Z98.890 - Other specified postprocedural states (ICD-10) ?Z87.19 - Personal history of other diseases of the digestive system (ICD-10) H/O gastric bypass ?Z98.84 - Bariatric surgery status (ICD-10) History of herniorrhaphy ?Z98.890 - Other specified postprocedural states (ICD-10) ?Z87.19 - Personal history of other diseases of the digestive system (ICD-10) History of appendectomy ?Z90.49 - Acquired absence of other specified parts of digestive tract (ICD- 10) Family History Mother Family history of DVT Family history of ovarian cancer Family history of lung cancer Brother Family history of myocardial infarction Family history of COPD (chronic obstructive pulmonary disease) Social History Highest level of school completed/degree received: some college, no degree Little interest or pleasure in doing things: not at all Feeling down, depressed, or hopeless: not at all Do you think of yourself as: lesbian/valles/homosexual Gender Identity: male Meds Home Medications and Allergies Home Medications ?Medication ?Instructions ?Recorded ?Confirmed ?Type amitriptyline 25 mg tablet 25 mg PO .HS 10/02/22 01/14/24 History azelastine 137 mcg-fluticasone 50 1 spray intranasal .QD 10/02/22 01/14/24 History mcg/spray nasal spray bisoprolol 10 1 tab PO .QD 10/02/22 01/14/24 History mg-hydrochlorothiazide 6.25 mg tablet calcium 500 mg (as 1 tab PO BID 10/02/22 01/14/24 History carbonate)-vitamin D3 5 mcg (200 unit) tablet (Oyster Shell Calcium-Vitamin D3) cetirizine 10 mg tablet 10 mg PO .QD 10/02/22 01/14/24 History cyanocobalamin (vitamin B-12) 1,000 mcg PO DAILY 10/02/22 01/14/24 History 1,000 mcg capsule diclofenac sodium 75 mg 75 mg PO BID PRN pain 10/02/22 01/14/24 History tablet,delayed release folic acid 1 mg tablet 1 mg PO .QD 10/02/22 01/14/24 History gabapentin 300 mg capsule 300 mg PO TID 10/02/22 01/14/24 History halobetasol propionate 0.05 % 1 applic topical BID 10/02/22 01/14/24 History topical cream methotrexate sodium 2.5 mg tablet 2.5 mg PO QWEEK 10/02/22 01/14/24 History multivitamin 1 tab PO DAILY 10/02/22 01/14/24 History tizanidine 4 mg tablet 4 mg PO BID PRN muscle spasticity 10/02/22 01/14/24 History triamcinolone acetonide 0.1 % 1 applic topical BID 10/02/22 01/14/24 History topical cream amlodipine 5 mg tablet 5 mg PO .QD 01/14/24 01/14/24 History bupropion HCl 300 mg 24 hr tablet, 300 mg PO .QD 01/14/24 01/14/24 History extended release cefdinir 300 mg capsule 600 mg (2 x 300 mg) PO DAILY #20 01/17/24 Rx caps clindamycin HCl 300 mg capsule 300 mg PO Q6H 10 days #40 caps 01/17/24 Rx gabapentin 300 mg capsule See Rx Instructions .Route 02/06/24 Rx .COMPLEX #150 caps tizanidine 4 mg capsule See Rx Instructions .Route 02/06/24 Rx .COMPLEX PRN muscle spasticity #90 caps gabapentin 300 mg capsule See Rx Instructions .Route 03/10/24 Rx .COMPLEX #150 caps tizanidine 4 mg tablet See Rx Instructions .Route 03/10/24 Rx .COMPLEX PRN muscle spasticity #90 tabs gabapentin 300 mg capsule See Rx Instructions .Route 05/13/24 Rx .COMPLEX #150 caps Allergies Allergy/AdvReac Type Severity Reaction Status Date / Time adalimumab (From Humira) Allergy Verified 07/17/23 08:17 morphine Allergy Verified 07/17/23 08:17 secukinumab (From Cosentyx) Allergy Verified 07/17/23 08:17 Exam Constitutional Documenting provider has reviewed patient's vital signs: yes Common normals: no apparent distress, oriented x3, healthy appearing, alert and well nourished General appearance: cooperative HENMT Common normals: normocephalic, hearing grossly normal bilaterally and moist oral mucous membranes Head and scalp: normocephalic Eye Common normals: PERRL Pupil: PERRL Neck & C-Spine Common normals: full ROM General: normal visual inspection Cervical spine: cervical ROM abnormal and pain with cervical ROM Chest Common normals: inspection of chest normal Respiratory Common normals: normal respiratory effort, no retractions and no use of accessory muscles Back & Pelvis Thoracic spine/upper back: pain with ROM Lumbar spine/lower back: pain with ROM Other: diffuse myofascial pain and tenderness Extremity Right lower extremity: knee joint Left lower extremity: knee joint Other: bilateral knees enlarged diameter, mild edema, crepitus on exam. no instability with medial or lateral stress testing. Neuro Common normals: oriented x3, CN's II-XII intact bilaterally, moves all extremities, no focal motor deficits, no sensory deficits noted and deep tendon reflexes 2+ bilaterally Sensorium/orientation: alert Motor exam: strength 5/5 throughout and no movement abnormalities noted Psych Common normals: mental status grossly normal, thought process normal, cooperative, affect normal, speech normal and activity/motor behavior normal Speech: normal speech Thought process: normal thought process Results Additional Findings Additional findings: If on a controlled substance or opioids, I have checked an [place] report on this patient and there are no aberrancies noted in the prescribing history.??If on a controlled substance or opioid a drug screen was completed and reviewed within the last year, and if there has not been a drug screen completed we ordered one today to monitor higher risk, state monitored pain medication use. As part of providing excellent, safe, comprehensive care, the following was completed at our patient's visit: 1. A medication reconciliation and review to ensure accurate knowledge of current/active medications, including asking our patients to inform us about any [id number] medications or herbal remedies/nutritional supplements/alternative remedies. 2. A review to specifically ensure our patients have had annual screening for screening for depression, screening for tobacco use, and screening for unhealthy alcohol use. For concerning screenings had a discussion with the patient, provided patient education, and recommended follow-up with primary care provider when appropriate. If patient noted with a risk of falling, they received education on strength, gait, and balance training to prevent future risk of falling. Portions of this note may have been carried over from the previous visit and updated as appropriate. Please note this office utilizes paper charting in addition to the electronic medical record. A list of current medications, vitals, and PMH is available there as the clinical staff outside of myself do not have access to [employer] charting during the clinic day operations. As part of providing quality comprehensive care the current medications, vitals, and PMH were reviewed in the paper chart. Assessment and Plan Assessment and Plan (1) Bilateral primary osteoarthritis of knee: (2) Fibromyalgia: (3) Degenerative disc disease, cervical: (4) Cervical spinal stenosis: (5) Cervical spondylosis: (6) Cervical radiculopathy: Plan bilateral knee injection for pain secondary to OA continue current medications continue HEP as tolerated continue f/u with Rheumatology for psoriatic arthritis and FM f/u after injection
== END 2024-05-28 07:42 | disposition home or self-care (01) ==
PROVIDERS: PCP Family Medicine; Visit Provider Nurse Practitioner
DX: M17.0 Bilateral primary osteoarthritis of knee (principal); M79.7 Fibromyalgia; M50.30 Other cervical disc degeneration, unspecified cervical region; M48.02 Spinal stenosis, cervical region; M47.812 Spondylosis without myelopathy or radiculopathy, cervical region; M54.12 Radiculopathy, cervical region
CPT/HCPCS: G0463

== ENCOUNTER 2024-06-02 12:55 | Outpatient (OUT) | payer OTHER, SELFPAY ==
--- NOTE | 2024-06-02 13:36 | P.CN_ITS ---
Consult Note: HPI Data of Consult Patient: known to practice within the last 3 years Consult date: 06/02/24 Requesting Physician: Stephy Hernandez MD Primary Care Provider: RODRIGO BRINK Consult Narrative Reason for consult: bilateral knee pain Narrative: 59yom who presents for in office injection. continues to have bilateral knee pain, would like to proceed with in office injection. cc:: CC: Stephy Hernandez MD Review of Systems ROS Status of ROS 10 or more systems reviewed and unremark able except as noted in history and below PFSH PFSH Medical History HIRAL (acute kidney injury) ?N17.9 - Acute kidney failure, unspecified (ICD-10) Sepsis ?A41.9 - Sepsis, unspecified organism (ICD-10) Cellulitis ?L03.90 - Cellulitis, unspecified (ICD-10) Psoriatic arthritis ?L40.50 - Arthropathic psoriasis, unspecified (ICD-10) Osteoarthritis ?M19.90 - Unspecified osteoarthritis, unspecified site (ICD-10) Upper back pain ?M54.9 - Dorsalgia, unspecified (ICD-10) Low back pain ?M54.50 - Low back pain, unspecified (ICD-10) Neck pain ?M54.2 - Cervicalgia (ICD-10) Numbness and tingling ?R20.0 - Anesthesia of skin (ICD-10) ?R20.2 - Paresthesia of skin (ICD-10) Hypertension ?I10 - Essential (primary) hypertension (ICD-10) Surgical History H/O umbilical hernia repair ?Z98.890 - Other specified postprocedural states (ICD-10) ?Z87.19 - Personal history of other diseases of the digestive system (ICD-10) H/O ventral hernia repair ?Z98.890 - Other specified postprocedural states (ICD-10) ?Z87.19 - Personal history of other diseases of the digestive system (ICD-10) H/O gastric bypass ?Z98.84 - Bariatric surgery status (ICD-10) History of herniorrhaphy ?Z98.890 - Other specified postprocedural states (ICD-10) ?Z87.19 - Personal history of other diseases of the digestive system (ICD-10) History of appendectomy ?Z90.49 - Acquired absence of other specified parts of digestive tract (ICD- 10) Family History Mother Family history of DVT Family history of ovarian cancer Family history of lung cancer Brother Family history of myocardial infarction Family history of COPD (chronic obstructive pulmonary disease) Social History Highest level of school completed/degree received: some college, no degree Little interest or pleasure in doing things: not at all Feeling down, depressed, or hopeless: not at all Do you think of yourself as: lesbian/valles/homosexual Gender Identity: male Meds Home Medications and Allergies Home Medications ?Medication ?Instructions ?Recorded ?Confirmed ?Type amitriptyline 25 mg tablet 25 mg PO .HS 10/02/22 01/14/24 History azelastine 137 mcg-fluticasone 50 1 spray intranasal .QD 10/02/22 01/14/24 History mcg/spray nasal spray bisoprolol 10 1 tab PO .QD 10/02/22 01/14/24 History mg-hydrochlorothiazide 6.25 mg tablet calcium 500 mg (as 1 tab PO BID 10/02/22 01/14/24 History carbonate)-vitamin D3 5 mcg (200 unit) tablet (Oyster Shell Calcium-Vitamin D3) cetirizine 10 mg tablet 10 mg PO .QD 10/02/22 01/14/24 History cyanocobalamin (vitamin B-12) 1,000 mcg PO DAILY 10/02/22 01/14/24 History 1,000 mcg capsule diclofenac sodium 75 mg 75 mg PO BID PRN pain 10/02/22 01/14/24 History tablet,delayed release folic acid 1 mg tablet 1 mg PO .QD 10/02/22 01/14/24 History gabapentin 300 mg capsule 300 mg PO TID 10/02/22 01/14/24 History halobetasol propionate 0.05 % 1 applic topical BID 10/02/22 01/14/24 History topical cream methotrexate sodium 2.5 mg tablet 2.5 mg PO QWEEK 10/02/22 01/14/24 History multivitamin 1 tab PO DAILY 10/02/22 01/14/24 History tizanidine 4 mg tablet 4 mg PO BID PRN muscle spasticity 10/02/22 01/14/24 History triamcinolone acetonide 0.1 % 1 applic topical BID 10/02/22 01/14/24 History topical cream amlodipine 5 mg tablet 5 mg PO .QD 01/14/24 01/14/24 History bupropion HCl 300 mg 24 hr tablet, 300 mg PO .QD 01/14/24 01/14/24 History extended release cefdinir 300 mg capsule 600 mg (2 x 300 mg) PO DAILY #20 01/17/24 Rx caps clindamycin HCl 300 mg capsule 300 mg PO Q6H 10 days #40 caps 01/17/24 Rx gabapentin 300 mg capsule See Rx Instructions .Route 02/06/24 Rx .COMPLEX #150 caps tizanidine 4 mg capsule See Rx Instructions .Route 02/06/24 Rx .COMPLEX PRN muscle spasticity #90 caps gabapentin 300 mg capsule See Rx Instructions .Route 03/10/24 Rx .COMPLEX #150 caps tizanidine 4 mg tablet See Rx Instructions .Route 03/10/24 Rx .COMPLEX PRN muscle spasticity #90 tabs gabapentin 300 mg capsule See Rx Instructions .Route 05/13/24 Rx .COMPLEX #150 caps tizanidine 4 mg capsule 4 mg PO BID PRN muscle spasticity 06/02/24 Rx #60 caps Allergies Allergy/AdvReac Type Severity Reaction Status Date / Time adalimumab (From Humira) Allergy Verified 07/17/23 08:17 morphine Allergy Verified 07/17/23 08:17 secukinumab (From Cosentyx) Allergy Verified 07/17/23 08:17 Exam Narrative Exam Narrative: Psych-alert and oriented x 3.? Attentive and appropriate, constitutionally normal, displays normal mood and affect per situation.? There are no obvious deficits in memory, reasoning, or intellect. Extremities-lower extremities are warm with minimal edema and palpable pulses. Knee-examination of the bilateral knee reveals tenderness to palpation over the superior, inferior, lateral, and medial aspect of the knee.? Some swelling is noted without erythema. Pain is elicited with flexion and extension of the knee both actively and passively.? Some grinding is noted with these motions.? There is no notable ligamental laxity or instability.? Coordination remains intact.? Gait remains antalgic. Assessment and Plan Assessment and Plan (1) Bilateral primary osteoarthritis of knee: Plan 59yom who presents for in office injection. continues to have bilateral knee pain. would like to proceed with knee injections. follow up in 4-6 weeks. Procedure: Bilateral knee injection Medications: Bupivacaine 0.25% 4cc, depomedrol 40mg x2 I explained the details of the procedure to the patient including the risks, benefits and alternatives. We had an informed discussion and the patient verbalized understanding and signed the consent form. All questions were answered appropriately.? A time out was performed.? After obtaining a comfortable seated position, the right knee was prepped with alcohol x3. A syringe containing the above medication was attached to a 25 gauge, 1.5 inch needle under strict aseptic technique. The lateral tibial plateau was palpated.? The needle was then advanced through the subcutaneous tissue in a medial and superior direction towards the joint space.? The contents of the syringe were gently injected without any resistance. The needle was removed and pressure was applied to the injection site to decrease the incidence of ecchymosis and hematoma formation.? A sterile bandage was applied. The same procedure was then completed on the opposite side.
== END 2024-06-02 12:56 | disposition home or self-care (01) ==
LOC: PM 12:55
PROVIDERS: PCP Family Medicine; Visit Provider Anesthesiology
DX: M17.0 Bilateral primary osteoarthritis of knee (principal)
CPT/HCPCS: 20610; J0665; J1010

== ENCOUNTER 2024-08-11 15:50 | Outpatient (OUT) | payer OTHER, SELFPAY ==
[2024-08-11 16:31] LABS: Basophils Percent Auto 0.7 % (0.2-2.0); Eosinophils Absolute Auto 0.1 10^3/uL (0.0-0.7); Eosinophils Percent Auto 1.5 % (0.9-7.0); Hematocrit 42.7 % (42.0-54.0); Hemoglobin 14.3 g/dL (14.0-18.0); Immature Granulocytes Abs Auto 0.02 10^3/uL (0.00-0.03); Immature Granulocytes Pct Auto 0.3 % (0.0-0.5); Lymphocytes Absolute Auto 2.2 10^3/uL (1.2-3.8); Lymphocytes Percent Auto 35.5 % (20.5-60.0); Mean Corpuscular HGB Conc 33.5 g/dL (29.9-35.2); Mean Corpuscular Hemoglobin 34.8 pg (25.9-34.0); Mean Corpuscular Volume 103.9 fL (80.0-94.0); Monocytes Absolute Auto 0.6 10^3/uL (0.3-0.8); Monocytes Percent Auto 10.4 % (1.7-12.0); Neutrophils Absolute Auto 3.1 10^3/uL (1.4-6.5); Neutrophils Percent Auto 51.6 % (43.0-75.0); Platelet Count 204 10^3/uL (150-450); Red Blood Count 4.11 10^6/uL (4.70-6.10); Red Cell Distribution Width 12.6 % (11.0-15.0); White Blood Count 6.1 10^3/uL (4.0-11.0)
[2024-08-11 16:56] LABS: Alanine Aminotransferase 59 U/L (16-63); Aspartate Amino Transferase 21 U/L (15-37); C Reactive Protein <0.50 mg/dL (<=0.50); Estimated GFR (African America >60 (>=60 mL/min/1.73m^2); Estimated GFR (Non-African Ame 50 (>=60 mL/min/1.73m^2)
[2024-08-11 17:14] LABS: Erythrocyte Sedimentation Rate 1 mm/hr (<=20)
[2024-08-14 12:12] LABS: Calcitriol(1,25 di-OH Vit D) 28.2 pg/mL (24.8-81.5)
== END 2024-08-11 15:51 | disposition home or self-care (01) ==
LOC: LAB 15:52
PROVIDERS: PCP Family Medicine
DX: L40.50 Arthropathic psoriasis, unspecified (principal); M17.0 Bilateral primary osteoarthritis of knee; M19.031 Primary osteoarthritis, right wrist; M19.032 Primary osteoarthritis, left wrist; M16.0 Bilateral primary osteoarthritis of hip; M19.041 Primary osteoarthritis, right hand; M19.042 Primary osteoarthritis, left hand; M19.011 Primary osteoarthritis, right shoulder; M19.012 Primary osteoarthritis, left shoulder; M47.812 Spondylosis without myelopathy or radiculopathy, cervical region; M75.41 Impingement syndrome of right shoulder; M75.42 Impingement syndrome of left shoulder; M50.30 Other cervical disc degeneration, unspecified cervical region; D53.9 Nutritional anemia, unspecified; D64.89 Other specified anemias; L40.9 Psoriasis, unspecified; L40.0 Psoriasis vulgaris; Z79.631 Long term (current) use of antimetabolite agent; Z79.899 Other long term (current) drug therapy; Z87.2 Personal history of diseases of the skin and subcutaneous tissue; Z87.442 Personal history of urinary calculi; R94.4 Abnormal results of kidney function studies; E55.9 Vitamin D deficiency, unspecified; L40.53 Psoriatic spondylitis; L40.51 Distal interphalangeal psoriatic arthropathy
CPT/HCPCS: 36415; 82306; 82565; 82652; 84450; 84460; 85025; 85652; 86140

== ENCOUNTER 2024-10-15 09:36 | Outpatient (OUT) | payer OTHER, SELFPAY ==
--- NOTE | 2024-10-15 10:14 | PM.CN ---
Consult Note: HPI Data of Consult Patient: known to practice within the last 3 years Consult date: 10/15/24 Requesting Physician: Negra Solorzano NP Primary Care Provider: RODRIGO BRINK Consult Narrative Reason for consult: f/u Narrative: Patrick Buckley a pleasant 59 year old male presents for evaluation of chronic bilateral knee and neck pain. longstanding hx of neck pain with radiculopathy, following with NS on a PRN basis at this time. pt has failed to benefit from greater than 6 weeks of provider guided HEP for chronic neck pain and bilateral knee pain. failed tylenol, motrin, heat, ice, and diclofenac gel. currently utilizes diclofenac, tizanidine, gabapentin. no recent falls or injuries. recently completed bilateral knee xray which is consistent with mild OA. Pain today 9/10 increasing to 10/10 with standing, walking, weight bearing. had a bilateral knee injection with corticosteroid on 06/02/24 with no ongoing improvement, noted significant relief for 1 day. cc:: CC: Negra Solorzano NP Review of Systems ROS Status of ROS 10 or more systems reviewed and unremarkable except as noted in history and below Musculoskeletal Reports: neck pain and joint pain PFSH [facility] Medical History HIRAL (acute kidney injury) �N17.9 - Acute kidney failure, unspecified (ICD-10) Sepsis �A41.9 - Sepsis, unspecified organism (ICD-10) Cellulitis �L03.90 - Cellulitis, unspecified (ICD-10) Psoriatic arthritis �L40.50 - Arthropathic psoriasis, unspecified (ICD-10) Osteoarthritis �M19.90 - Unspecified osteoarthritis, unspecified site (ICD-10) Upper back pain �M54.9 - Dorsalgia, unspecified (ICD-10) Low back pain �M54.50 - Low back pain, unspecified (ICD-10) Neck pain �M54.2 - Cervicalgia (ICD-10) Numbness and tingling �R20.0 - Anesthesia of skin (ICD-10) �R20.2 - Paresthesia of skin (ICD-10) Hypertension �I10 - Essential (primary) hypertension (ICD-10) Surgical History H/O umbilical hernia repair �Z98.890 - Other specified postprocedural states (ICD-10) �Z87.19 - Personal history of other diseases of the digestive system (ICD-10) H/O ventral hernia repair �Z98.890 - Other specified postprocedural states (ICD-10) �Z87.19 - Personal history of other diseases of the digestive system (ICD-10) H/O gastric bypass �Z98.84 - Bariatric surgery status (ICD-10) History of herniorrhaphy �Z98.890 - Other specified postprocedural states (ICD-10) �Z87.19 - Personal history of other diseases of the digestive system (ICD-10) History of appendectomy �Z90.49 - Acquired absence of other specified parts of digestive tract (ICD-10) Family History Mother Family history of DVT Family history of ovarian cancer Family history of lung cancer Brother Family history of myocardial infarction Family history of COPD (chronic obstructive pulmonary disease) Social History Highest level of school completed/degree received: some college, no degree Little interest or pleasure in doing things: not at all Feeling down, depressed, or hopeless: not at all Do you think of yourself as: lesbian/valles/homosexual Gender Identity: male Meds Home Medications and Allergies Home Medications �Medication �Instructions �Recorded �Confirmed �Type amitriptyline 25 mg tablet 25 mg PO .HS 10/02/22 01/14/24 History azelastine 137 mcg-fluticasone 50 1 spray intranasal .QD 10/02/22 01/14/24 History mcg/spray nasal spray bisoprolol 10 1 tab PO .QD 10/02/22 01/14/24 History mg-hydrochlorothiazide 6.25 mg tablet calcium 500 mg (as 1 tab PO BID 10/02/22 01/14/24 History carbonate)-vitamin D3 5 mcg (200 unit) tablet (Oyster Shell Calcium-Vitamin D3) cetirizine 10 mg tablet 10 mg PO .QD 10/02/22 01/14/24 History cyanocobalamin (vitamin B-12) 1,000 mcg PO DAILY 10/02/22 01/14/24 History 1,000 mcg capsule folic acid 1 mg tablet 1 mg PO .QD 10/02/22 01/14/24 History halobetasol propionate 0.05 % 1 applic topical BID 10/02/22 01/14/24 History topical cream methotrexate sodium 2.5 mg tablet 2.5 mg PO QWEEK 10/02/22 01/14/24 History multivitamin 1 tab PO DAILY 10/02/22 01/14/24 History triamcinolone acetonide 0.1 % 1 applic topical BID 10/02/22 01/14/24 History topical cream amlodipine 5 mg tablet 5 mg PO .QD 01/14/24 01/14/24 History bupropion HCl 300 mg 24 hr tablet, 300 mg PO .QD 01/14/24 01/14/24 History extended release cefdinir 300 mg capsule 600 mg (2 x 300 mg) PO DAILY #20 01/17/24 Rx caps clindamycin HCl 300 mg capsule 300 mg PO Q6H 10 days #40 caps 01/17/24 Rx tizanidine 4 mg capsule 4 mg PO BID PRN muscle spasticity 06/02/24 Rx #60 caps gabapentin 300 mg capsule See Rx Instructions .Route 06/09/24 Rx .COMPLEX #150 caps diclofenac sodium 75 mg 75 mg PO BID PRN pain #60 tabs 07/03/24 Rx tablet,delayed release gabapentin 300 mg capsule See Rx Instructions .Route 07/03/24 Rx .COMPLEX #150 caps Allergies Allergy/AdvReac Type Severity Reaction Status Date / Time adalimumab (From Humira) Allergy Verified 07/17/23 08:17 morphine Allergy Verified 07/17/23 08:17 secukinumab (From Cosentyx) Allergy Verified 07/17/23 08:17 Exam Constitutional Documenting provider has reviewed patient's vital signs: yes Common normals: no apparent distress, oriented x3, healthy appearing, alert and well nourished General appearance: cooperative [facility] Common normals: normocephalic, hearing grossly normal bilaterally and moist oral mucous membranes Head and scalp: normocephalic Eye Common normals: PERRL Pupil: PERRL Neck & C-Spine Common normals: full ROM General: normal visual inspection Cervical spine: cervical ROM abnormal and pain with cervical ROM Chest Common normals: inspection of chest normal Respiratory Common normals: normal respiratory effort, no retractions and no use of accessory muscles Back & Pelvis Thoracic spine/upper back: pain with ROM Lumbar spine/lower back: pain with ROM Other: diffuse myofascial pain and tenderness Extremity Right lower extremity: knee joint Left lower extremity: knee joint Other: bilateral knees enlarged diameter, mild edema, crepitus on exam. no instability with medial or lateral stress testing. Neuro Common normals: oriented x3, CN's II-XII intact bilaterally, moves all extremities, no focal motor deficits, no sensory deficits noted and deep tendon reflexes 2+ bilaterally Sensorium/orientation: alert Motor exam: strength 5/5 throughout and no movement abnormalities noted Psych Common normals: mental status grossly normal, thought process normal, cooperative, affect normal, speech normal and activity/motor behavior normal Speech: normal speech Thought process: normal thought process Results Additional Findings Additional findings: If on a controlled substance or opioids, I have checked an [place] report on this patient and there are no aberrancies noted in the prescribing history.��If on a controlled substance or opioid a drug screen was completed and reviewed within the last year, and if there has not been a drug screen completed we ordered one today to monitor higher risk, state monitored pain medication use. As part of providing excellent, safe, comprehensive care, the following was completed at our patient's visit: 1. A medication reconciliation and review to ensure accurate knowledge of current/active medications, including asking our patients to inform us about any wrmh-hli-bikeuic medications or herbal remedies/nutritional supplements/alternative remedies. 2. A review to specifically ensure our patients have had annual screening for screening for depression, screening for tobacco use, and screening for unhealthy alcohol use. For concerning screenings had a discussion with the patient, provided patient education, and recommended follow-up with primary care provider when appropriate. If patient noted with a risk of falling, they received education on strength, gait, and balance training to prevent future risk of falling. Portions of this note may have been carried over from the previous visit and updated as appropriate. Please note this office utilizes paper charting in addition to the electronic medical record. A list of current medications, vitals, and PMH is available there as the clinical staff outside of myself do not have access to Virtual Computer charting during the clinic day operations. As part of providing quality comprehensive care the current medications, vitals, and PMH were reviewed in the paper chart. Assessment and Plan Assessment and Plan (1) Bilateral primary osteoarthritis of knee: (2) Fibromyalgia: (3) Degenerative disc disease, cervical: (4) Cervical spinal stenosis: (5) Cervical spondylosis: (6) Cervical radiculopathy: Plan bilateral knee durolane injection for pain secondary to OA unresponsive to > 6 weeks of HEP, heat, ice, tylenol, NSAIDs, and corticosteroid injections. continue current medications continue HEP as tolerated continue f/u with Rheumatology for psoriatic arthritis and FM f/u after injection
== END 2024-10-15 09:37 | disposition home or self-care (01) ==
PROVIDERS: PCP Family Medicine; Visit Provider Nurse Practitioner
DX: M17.0 Bilateral primary osteoarthritis of knee (principal); M79.7 Fibromyalgia; M50.30 Other cervical disc degeneration, unspecified cervical region; M48.02 Spinal stenosis, cervical region; M47.812 Spondylosis without myelopathy or radiculopathy, cervical region; M54.12 Radiculopathy, cervical region
CPT/HCPCS: G0463

== ENCOUNTER 2024-11-10 14:10 | Outpatient (OUT) | payer OTHER, SELFPAY ==
--- OUTSIDE RECORDS SUMMARY | 2024-01-18 03:30 | XMS_ITS ---
Author Organization [facility] Address [address] [place] [address] Care Team Providers Care Lean Specialist Name Role Phone German Carrion Primary Care Provider Lesly Adams Unavailable [phone] KEELEY PIERSON CNP Unavailable Unavailable REASON FOR VISIT C4-7 ACDF Encounters Encounter Location Date Provider Diagnosis [facility] Surgery Scheduling [address] [facility] [place] [address] 01/18/2024 Lesly Acuna Plan Of Treatment No Information Progress Notes * GLENDA VALENTE EDOB: [birth year] (59 yo M)Acc No.[id number]:01/18/2024 Patient: Kolby GLENDA GREEN Provider: Kolby Mcfadden MD, PhD :1965 A ge:58 Y S ex:Male Date:01/18/2024 Address:[facility] [address] [place], [id number] Pcp:German Carrion * Images: * Electronic signature of Eloise Acuna MD, PHD on 11/10/2024 at 02:14 PM EDT Sign off status: Pending * Provider: Kolby Mcfadden MD, PhD Date: Generated for Lurdes peres/Mary/eTransmitting on: 11/10/2024 02:14 PM EDT
--- OUTSIDE RECORDS SUMMARY | 2024-02-08 05:30 | XMS_ITS ---
Author Organization [facility] Address [address] [place] [address] Care Team Providers Care Conveyor System Operator Name Role Phone Shona Gallego Primary Care Provider [phone] Arthur Marcella Adan [phone] REASON FOR VISIT 6 MO PROPHY Encounters Encounter Location Date Provider Diagnosis [facility] [address] [place] [address] 02/08/2024 Marcella Adan Plan Of Treatment No Information Progress Notes * GLENDA VALENTE EDOB: [birth year] (59 yo M)Acc No.[id number]:02/08/2024 Patient: GLENDA BRANCH [place] Provider: Alivia Adan :1965 A ge:58 Y S ex:Male Date:02/08/2024 [facility] [facility] Pcp:Shona Gallego Subjective: * Chief Complaints: * 1 . 6 MO PROPHY. * Medical History: Objective: * Vitals: Assessment: Plan: * Treatment: * Images: * Electronic signature of Mahendra Adan on 11/10/2024 at 02:14 PM EDT Sign off status: Pending * Provider: Alivia Adan Date: 04/09/2023 Generated for Lurdes peres/Mary/eTransmitting on: 0 11/10/2024 02:14 PM EDT
--- OUTSIDE RECORDS SUMMARY | 2024-02-22 07:40 | XMS_ITS ---
Author Organization [facility] Address [address] [place] [address] Care Team Providers Care Accounting Teacher Name Role Phone MuraliGerman Primary Care Provider Lesly Adams Unavailable [phone] KEELEY PIERSON CNP Unavailable Unavailable REASON FOR [...] Active Encounters Encounter Location Date Provider Diagnosis [facility] [address] [place] [phone] 02/22/2024 Lesly Acuna Plan Of Treatment No Information Progress Notes * GLENDA VALENTE EDOB: [birth year] (59 yo M)Acc No.[id number]:02/22/2024 Progress Notes Patient: Kolby GLENDA GREEN Provider: Kolby Mcfadden MD, PhD :1965 A ge:58 Y S ex:Male Date:02/22/2024 Address:[facility] [address] [place], [id number] Pcp:German Carrion Subjective: * Chief Complaints: * [...] Date: 04/23/2023 Generated for Lurdes peres/Mary/Ayeshaitting on: 11/10/2024 02:14 PM EDT
--- OUTSIDE RECORDS SUMMARY | 2024-06-20 07:00 | XMS_ITS ---
Author Organization [facility] Address [address] [place] [address] Care Team Providers Care Spa Director Name Role Phone MuraliGerman Primary Care Provider Lesly Adams Unavailable [phone] KEELEY PIERSON CNP Unavailable Unavailable REASON FOR VISIT CERVICAL PAIN Medications Medication SIG (Take, Route, Frequency, Duration) Notes Start Date End Date Status amLODIPine 10 mg 1 tab(s) Act kajal Vitamin D3 Active folic acid 1 mg 1 tab(s) Acti ve cetirizine 10 mg 1 tab(s) Act kajal methotrexate 2.5 mg as directed Active fluticasone Active ipratropium Active multivitamin Active amitriptyline 10 mg 1 tab(s) Active Vitamin B-12 Active bisoprolol Active triamcinolone acetonide 80 mg/mL as directed Active gabapentin 300 mg 1 cap(s) Ac tive triamcinolone topical Active halobetasol topical 0.05% 1 amanda Active clobetasol topical A ctive Taltz Prefilled Syringe 80 mg/mL as directed Active Oyster Shell Calcium Active diclofenac sodium 75 mg 1 tab(s) Active Encounters Encounter Location Date Provider Diagnosis [facility] [facility] [address] [place] [address] [place] [address] 06/20/2024 Lesly Acuna Plan Of Treatment No Information Progress Notes * GLENDA VALENTE EDOB: [birth year] (59 yo M)Acc No.[id number]:06/20/2024 Patient: Kolby GLENDA GREEN Provider: Kolby Mcfadden MD, PhD :1965 A ge:59 Y S ex:Male Date:06/20/2024 Address:[address], [place], [id number] Pcp:German Carrion Subjective: * Chief Complaints: * 1 . CERVICAL PAIN. * Medical History: * Medications: T aking [...] Eloise Acuna MD, PHD on 11/10/2024 at 02:13 PM EDT Sign off status: Pending * Provider: Kolby Mcfadden MD, PhD Date: 0 06/20/2024 Generated for Lurdes peres/Mary/Fausto on: 0 11/10/2024 02:13 PM EDT
--- OUTSIDE RECORDS SUMMARY | 2024-11-10 14:13 | XMS_ITS | Patient Health Record ---
Author Organization [facility] Address [address] [place] [address] Care Team Providers Care Cryptographic Center Specialist Name Role Phone Shona Gallego Primary Care Provider Marcella Adan Unavailable [phone] Reason For Referral No Information Plan Of Treatment No Information Insurance Providers Payer Name Payer Address Payer Phone Subscriber Number Group Number Insured Name Patient Relationship to Insured Coverage Start Date Coverage End Date [employer] [place] [address] [place] [address] [id number] AMBROSIOGLENDA Jarrett Self - patient is the insured 3 Wrap [employer] [address] [place] [address] [id number] AMBROSIOGLENDA Self - patient is the insured 3 [employer]-termed 22 [address] [place] [id number] AMBROSIOGLENDA Jarrett Self - patient is the insured 2 3 zDENTAL DQ [employer] E-ter[employer] 22 [address] [place] [address] [id number] AMBROSIOGLENDA Jarrett Self - patient is the insured 2 3 zMEDICAID C[employer] after [employer] [address] [place] [address] [id number] GLENDA VALENTE Self - patient is the insured 2 3 zDental MEDICA[address] [facility] after [employer] 22 [address] [place] [address] [id number] GLENDA VALENTE Self - patient is the insured 2 3 Dental [employer] [place] [address] [place] [address] [id number] GLENDA VALENTE Self - patient is the insured [address] [facility] [employer] [address] [place] [address] [id number] GLENDA VALENTE Self - patient is the insured 3
--- OUTSIDE RECORDS SUMMARY | 2024-11-10 14:15 | XMS_ITS | Clinical Summary ---
Author Organization [facility] Address [address] [place] [address] Care Team Providers Care Mold Carpenter Name Role Phone Unavailable Primary Care Provider Unavailabl e Allergies Active Allergy Reactions Criticality Noted Date Comments Adalimumab Rash Low 04/05/2018 Morphine Medium 01/09/2011 Other Reaction(s): Unknown Secukinumab Rash Low 04/05/2018 Medications amitriptyline (Elavil) 25 MG tablet Take 50 mg by mouth at bedtime. Active amLODIPine (Norvasc) 10 MG tablet amlodipine 10 mg tablet Take 1 tablet every day by oral route. Active baclofen (Lioresal) 10 MG tablet Take 10 mg by mouth at bedtime. 08/03/19 23 Active bisoprolol-hy droCHLOROthia zide (Ziac) 10-6.25 MG tablet Take 1 tablet by mouth in the morning. Active buPROPion XL (Wellbutrin XL) 150 MG 24 hr tablet Take 150 mg by mouth. 23 Active Calcium Carb-Cholecal ciferol (Oyster Shell Calcium w/D) 500-5 MG-MCG tablet Take 1 tablet by mouth in the morning and 1 tablet before bedtime. 12/24/19 23 Active cetirizine (ZyrTEC) 10 MG tablet Take 10 mg by mouth. 0 23 Active cyclobenzapri ne (Flexeril) 10 MG tablet Take 10 mg by mouth. 0 23 Active diclofenac (Voltaren) 75 MG EC tablet Take 75 mg by mouth 2 (two) times a day as needed. 12/28/19 23 Active fluticasone (Flonase) 50 MCG/ACT nasal spray See Instructions, 16 mL, Refill(s) 0, SPRAY 2 SPRAYS INTO EACH NOSTRIL DAILY, [id number] 07/03/19 23 Active folic acid (Folvite) 1 MG tablet Take 1,000 mcg by mouth in the morning. Act kajal gabapentin (Neurontin) 300 MG capsule Take 300 mg by mouth in the morning and 300 mg before bedtime. Active hydroCHLOROth iazide (HYDRODiuril) 25 MG tablet hydrochlorothiazide 25 mg tablet Take 1 tablet every day by oral route. Active cholecalcifer ol (Vitamin D-3) 250 MCG (68213 UT) capsule TAKE 1 CAPSULE BY MOUTH ONE TIME PER WEEK Active HYDROcodone-a cetaminophen (Florissant) 5-325 MG tablet Take 1 tablet by mouth 2 (two) times a day as needed. 12/30/19 23 Active ipratropium (Atrovent) 0.03 % nasal spray See Instructions, 30 Unspecified/Unknown, Refill(s) 0, USE 2 SPRAYS IN EACH NOSTRIL 3 TIMES A DAY, [id number] 07/06/19 23 Active methotrexate 2.5 MG tablet TAKE 7 TABLETS BY MOUTH ONE TIME PER WEEK Active oseltamivir (Tamiflu) 75 MG capsule Take 75 mg by mouth in the morning and 75 mg before bedtime. 03/10/20 22 Active sildenafil (Viagra) 25 MG tablet Take 25 mg by mouth. 0 23 Active sulindac (Clinoril) 200 MG tablet TAKE 1 TABLET BY MOUTH EVERY OTHER DAY NEEDED Active tiZANidine (Zanaflex) 4 MG tablet TAKE 1/2 - 1 TABLET BY MOUTH TWICE A DAY 12/26/19 23 Active triamcinolone (Kenalog) 0.1 % cream APPLY TO AFFECTED AREA TWICE A DAY NEEDED Act kajal triamcinolone (Kenalog) 0.1 % ointment APPLY TO AFFECTED AREA TWICE A DAY NEEDED Act kajal clobetasol (Temovate) 0.05 % creamIndicati ons:Psoriasis vulgaris Twice daily for flares 60 g 11 01/05/20 23 Active Taltz 80 MG/ML injectionIndi cations:Psori asis vulgaris INJECT 1 ML (80 MG) UNDER THE SKIN EVERY 28 DAYS 1 mL 12/26/19 24 Active halobetasol (UltraVATE) 0.05 % creamIndicati ons:Psoriasis vulgaris APPLY TO AFFECTED AREAS TWICE A DAY NEEDED FOR PSORIASIS FLARE *AVOID FACE/NECK/GROIN* 60 g 11 03/04/20 24 Active Taltz 80 MG/ML injectionIndi cations:Psori asis vulgaris Inject 1 mL (80 mg) under the skin every 28 (twenty-eight) days 1 each 11 03/28/20 24 Active Active Problems No known active problems Social History Tobacco Use Types Packs/Day Years Used Date Smoking Tobacco: Former Cigarettes Tobacco Cessation:Counseling Given: Not Answered Alcohol Use Standard Drinks/Week Comments Never 0 (1 standard drink = 0.6 oz pur e alcohol) Sex and Gender Information Value Date Recorded Sex Assigned at Not on file Legal Sex Male 8:26 PM EDT Gender Identity Not on file Sexual Orientation Not on file Plan of Treatment Upcoming Encounters Date Type Department Care Team (Late st Contact Info) Description 03/05/2025 8:50 AM EST Office Visit [facility] [address] [place] [id number] Concha Antoine APRN-CONSULTING INTERN [address] [place] [address] Health Maintenance Due Date Last Done Comments CT Colonography 1966 Colonoscopy 1966 Colorectal Cancer Screening 1966 FIT-DNA 1966 FIT 1966 FOBT 1966 Sigmoidoscopy 1966 Influenza Vaccine (#1) 2024 01/15/[address] [place] [address] [employer]
--- OUTSIDE RECORDS SUMMARY | 2024-11-10 14:15 | XMS_ITS | Encounter Summary ---
Author Organization [facility] Address [address] [facility] [place] [address] Care Team Providers Care Crate Maker Name Role Phone Unavailable Primary Care Provider Unavailabl e Reason for Visit * Reason Comments Med Refill Encounter Details Date Type Department Care Team (Late st Contact Info) Description 02/09/2023 Refill [facility] [place] [facility] [address] [facility] [address] [place] [address] Concha Antoine, PRINTING TECHNICIAN-WHITE LEAD FILTERER [address] [facility] [address] [place] [address] Psoriasis vulgaris Social History Tobacco Use Types Packs/Day Years Used Date Smoking Tobacco: Former Cigarettes Alcohol Use Standard Drinks/Week Comments Never 0 (1 standard drink = 0.6 oz pur e alcohol) Sex and Gender Information Value Date Recorded Sex Assigned at Not on file Legal Sex Male 8:26 PM EDT Gender Identity Not on file Sexual Orientation Not on file documented as of this encounter Plan of Treatment Upcoming Encounters Date Type Department Care Team (Late st Contact Info) Description 03/05/2025 8:50 AM EST Office Visit [facility] [address] [facility] [address] [facility] [address] [place] [address] Concha Antoine, PRINTING TECHNICIAN-WHITE LEAD FILTERER [address] [facility] [address] [place] [address] documented as of this encounter Visit Diagnoses Diagnosis Psoriasis vulgaris Other psoriasis documented in this encounter
--- OUTSIDE RECORDS SUMMARY | 2024-11-10 14:15 | XMS_ITS | Encounter Summary ---
Author Organization [facility] Address [address] [facility] [place] [address] Care Team Providers Care Psychiatric Technician Assistant Name Role Phone Unavailable Primary Care Provider Unavailabl e Reason for Visit * Reason Comments Med Refill Encounter Details Date Type Department Care Team (Late st Contact Info) Description 12/21/2023 Refill [facility] [address] [place] [address] Concha Antoine, CREW MEMBER-INSTITUTIONAL ASSET MANAGER [address] [place] [address] Psoriasis vulgaris Social History Tobacco [...] on file documented as of this encounter Miscellaneous Notes * Telephone Encounter - Lou Abreu LPN - 12/26/2023 7:03 PM EDT Approving, but needs appt for additional refills. documented in this encounter Plan of Treatment Upcoming Encounters Date Type Department Care Team (Late st Contact Info) Description 03/05/2025 8:50 AM EST Office Visit [facility] [address] [place] [address] Concha Antoine, CREW MEMBER-INSTITUTIONAL ASSET MANAGER [address] [place] [address] documented as of this encounter Visit Diagnoses Diagnosis Psoriasis vulgaris Other psoriasis documented in this encounter
--- OUTSIDE RECORDS SUMMARY | 2024-11-10 14:15 | XMS_ITS | Encounter Summary ---
Author Organization [facility] Address [address] [place] [address] Care Team Providers Care Systems Engineering Manager Name Role Phone Unavailable Primary Care Provider Unavailabl e Reason for Visit * Reason Comments Med Refill Encounter Details Date Type Department Care Team (Late st Contact Info) Description 02/28/2023 Refill [facility] [address] [place] [address] Concha Antoine, SANDER OPERATOR-COMPENSATION EXPERT [address] [place] [address] Psoriasis vulgaris Social History Tobacco [...] encounter Miscellaneous Notes * Telephone Encounter - Stephanie Shetty LPN - 02/28/2023 3:10 PM EST Patient requesting refill of Halobetasol. Will resend script at this time. Last follow up 01/04/2023 documented in this encounter Plan of Treatment Upcoming Encounters Date Type Department Care Team (Late st Contact Info) Description 03/05/2025 8:50 AM EST Office Visit [facility] [address] [facility] [address] [place] [address] Concha Antoine, SANDER OPERATOR-COMPENSATION EXPERT [address] [place] [address] documented as of this encounter Visit Diagnoses Diagnosis Psoriasis vulgaris Other psoriasis documented in this encounter
--- OUTSIDE RECORDS SUMMARY | 2024-11-10 14:15 | XMS_ITS | Patient Health Record ---
Author Organization [facility] Address [address] [place] [address] Care Team Providers Care Electroslag Welding Machine Operator Name Role Phone Murali German Primary Care Provider Unavailenrike e Lesly Acuna Unavailable [phone] KEELEY PIERSON CNP Unavailable Unavailable Allergies Allergen (clinical drug ingredient) Drug/Non Drug Allergy documented on EMR Reaction Allergy Type Onset Date Status Humira rash Drug Allergy Active morphine morphine headache, affects eye sight Drug Allergy Active secukinumab Cosentyx rash Drug Allergy Activ e Results Component Value Reference Range Notes Surgery Scheduling (Not yet reviewed by provider) Interpretation: Performing Lab: Notes/Report: Primary Insurance Company: medicaid caresourcedith Surgeon/Assist: st rothman/neelam or heath Surgery Location: [facility] Surgery Date & Time: 01/10/24 @ 12:00 PM Hosp arrival time day of: 11:00AM Surgery End Time: 2PM Procedure: C4-7 ACDF Special Equipment: SSEP, SUPINE, OR TAB LE, SURGALIGN Diagnosis: M48.02 CERVICAL STENOSIS Admission Type: INPATIENT Anesthesia Type/CPNB: GENERAL Post-op Appointment Date: 02/22/24 @ 11:40AM SRIKANTH Lab Location: [facility] 01/01/24 @ 9AM Rolfer: ALEKSEY Ball Physician: DR BRINK 01/07/24 @ 9:15AM History & Physical Appointme nt Date/: 01/04/24 @ 9:10AM [facility] Reason For Referral Reason APPROVED INPATIENT.......................01/10/24........................[facility] C4-7 ACDF Karlene Davis 12/18/2023 12:01:43 >70292, 35547 x2, 47851, 41080 Diagnosis 1 Cervical radiculopathy (M54.12) Diagnosis 2 Cervical spinal stenosis (M48.02) Referral Organizati on [facility] Referring Provider First Name Lesly Referring Provider Last Name [facility] Referring Provider Speciality Orthopedic Surgery Referred Organizati on [facility] Inpatient Referred Address [address] [place], [place],[address],[place] Procedure 1 Arthrodesis, anterior interbody, includi ng disc space prep, discectomy, osteophytectomy & decompression of spinal cord and/or nerve roots, cervical below C2 (72268) Procedure 2 Arthrodesis, cervical below C2 each add' l interspace (93513) Procedure 3 Anterior instrumentation; 4-7 vertebral segments (01820) Procedure 4 Allograft for spine surgery only; struct ural () General Notes Aleksey Loredo 12/18/2023 11:53:27 AM >, Katie Garcia 12/18/2023 11:58:25 AM > REQUESTED CODES, Katie Garcia 12/19/2023 09:31:40 AM > CAN YOU PLEASE GET ME PATIENT'S HEIGHT AND WEIGHT? IT'S REQUIRED FOR AUTHORIZATION SUBMISSION., Aleksey Loredo 12/19/2023 06:07:15 PM >5 feet 11 wt 220Jose Kayla 12/20/2023 08:17:32 AM > AUTHORIZATION REQUEST SUBMITTED WITH CLINICALS VIA [employer] PROVIDER PORTAL INPATIENT DUE TO CPT CODE 97724 BEING ON MEDICAID INPATIENT LIST, PENDING AUTHORIZATION # [id number], Katie Garcia 12/24/2023 07:14:04 AM > AUTHORIZATION # [id number] APPROVED AND VALID 01/10/24-01/11/24 PER FAX BACK FROM [facility]. SCANNED INTO CHART. CAN YOU PLEASE SWITCH TO INPATIENT AND SEND BACK?, Aleksey Loredo 12/26/2023 01:21:27 PM >CHANGED TO INPATIENT, Katie Garcia 12/26/2023 01:30:20 PM > THANK YOU, FAXED TO [facility]., Aleksey Loredo 12/27/2023 09:22:38 AM >PATIENT CALLED IN AND CANCELLED INSURANCE STATING THAT HE STARTED A NEW JOB AND DOES NOT HAVE ANY INSURANCE, Katie Garcia 12/27/2023 09:42:10 AM > NOTED, MARKING REFERRAL ADDRESSED. Referral Priority Routine Medications Medication SIG (Take, Route, Frequency, Duration) Notes Start Date End Date Status bisoprolol Active clobetasol topical A ctive fluticasone Active amLODIPine 10 mg 1 tab(s) Act kajal Taltz Prefilled Syringe 80 mg/mL as directed Active triamcinolone acetonide 80 mg/mL as directed Active ipratropium Active Vitamin D3 Active multivitamin Active folic acid 1 mg 1 tab(s) Acti ve Oyster Shell Calcium Active gabapentin 300 mg 1 cap(s) Ac tive cetirizine 10 mg 1 tab(s) Act kajal diclofenac sodium 75 mg 1 tab(s) Active amitriptyline 10 mg 1 tab(s) Active methotrexate 2.5 mg as directed Active triamcinolone topical Active Vitamin B-12 Active halobetasol topical 0.05% 1 amnada Active Social History Tobacco Use: Social History Observation Description Date Details (start date - stop date) Former Smoker NA - NA AUDIT-C (Standard) Question Answer Notes Did you have a drink containing alcohol in the p ast year? 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) Active confirmed Problem Degeneration of cervical intervertebral disc (73740845) Degeneration of intervertebral disc at C6-C7 level (M50.323) Active confirmed Problem Degeneration of cervical intervertebral disc (10882903) Degeneration of intervertebral disc at C4-C5 level (M50.321) Active confirmed Encounters Encounter Location Date Provider Diagnosis [facility] [place] [address] [place] [address] 12/14/2023 Lesly Acuna Cervical radiculopat hy M54.12 ; Cervical spinal stenosis M48.02 ; Degeneration of intervertebral disc at C6-C7 level M50.323 and Degeneration of intervertebral disc at C5-C6 level M50.322 Assessments Encounter Date Diagnosis (ICD Code) Assessment Notes Treatment Notes Treatment Clinical Notes Section Notes 12/14/2023 Cervical radiculopathy (ICD-10 - M54.12) 12/14/2023 Cervical spinal stenosis (ICD-10 - M48.02) 12/14/2023 Degeneration of intervertebral disc at C6-C7 level (ICD-10 - M50.323) 12/14/2023 Degeneration of intervertebral disc at C5-C6 level (ICD-10 - M50.322) Plan Of Treatment Pending Test Test Name Order Date Surgery Scheduling 12/18/2023 Future Test Test Name Order Date Chest 2 views - 42174 12/14/2023 CBC 12/14/2023 Type and Screen Blood Type 12/14/2023 PT/PTT 12/14/2023 BMP 12/14/2023 MRSA (Bilateral Nares) PCR 12/14/2023 EKG 12/14/2023 Insurance Providers Payer Name Payer Address Payer Phone Subscriber Number Group Number Insured Name Patient Relationship to Insured Coverage Start Date Coverage End Date Medicaid [employer] [place] [address] [place] [address] [id number] GLENDA VALENTE Self - patient is the insured Medical (General) History Medical History History ICD Code High Blood Pressure Bronchitis Kidney stones Osteoarthritis Depression Surgical History Surgery Date(Month/Year) Gastric bypass 2003
--- OUTSIDE RECORDS SUMMARY | 2024-11-10 14:15 | XMS_ITS | Encounter Summary ---
Author Organization [facility] Address [address] [facility] [place] [place] [address] Care Team Providers Care Transit Man Name Role Phone Unavailable Primary Care Provider Unavailabl e Reason for Visit * Reason Comments Med Refill Encounter Details Date Type Department Care Team (Late st Contact Info) Description 01/12/2023 Refill [facility] [place] [facility] [address] [facility] [address] [place] [address] Concha Antoine, SENIOR IT PROJECT MANAGER-BANANA ROOM CUTTER [address] [facility] [address] [place] [address] Psoriasis vulgaris Social History Tobacco [...] Office Visit [facility] [address] [facility] [address] [facility] [address] [place] [address] Concha Antoine, SENIOR IT PROJECT MANAGER-BANANA ROOM CUTTER [address] [facility] [address] [place] [address] documented as of this encounter Visit Diagnoses Diagnosis Psoriasis vulgaris Other psoriasis documented in this encounter
--- OUTSIDE RECORDS SUMMARY | 2024-11-10 14:15 | XMS_ITS | Encounter Summary ---
Author Organization [facility] Address [address] [facility] [place] [address] Care Team Providers Care Laboratory Monitor Name Role Phone Unavailable Primary Care Provider Unavailabl e Reason for Visit * Reason Comments Med Refill Encounter Details Date Type Department Care Team (Late st Contact Info) Description 01/23/2024 Refill [facility] [address] [facility] [address] [facility] [address] [place] [address] Concha Antoine, CASTING MACHINE OPERATOR HELPER-DATA EXAMINATION CLERK [address] [facility] [address] [place] [address] Psoriasis vulgaris Social History Tobacco [...] Telephone Encounter - Stephanie Shetty LPN - 01/24/2024 8:21 AM EDT Pt needs appt to fill. Please note patient is also on a biologic, and has been informed that yearlyfollow up and lab work is needed to renew treatments. documented in this encounter Plan of Treatment Upcoming Encounters Date Type Department Care Team (Late st Contact Info) Description 03/05/2025 8:50 AM EST Office Visit [facility] [address] [facility] [address] [place] [address] Concha Antoine, CASTING MACHINE OPERATOR HELPER-DATA EXAMINATION CLERK [address] [address] [place] [address] documented as of this encounter Visit Diagnoses Diagnosis Psoriasis vulgaris Other psoriasis documented in this encounter
--- OUTSIDE RECORDS SUMMARY | 2024-11-10 14:15 | XMS_ITS | Clinical Summary ---
Author Organization [facility] Address [address] [place] [address] Care Team Providers Care Clearing Inspector Name Role Phone Unavailable Primary Care Provider Unavailabl e Social History Tobacco Use Types Packs/Day Years Used Date Smoking Tobacco: Never Assessed Sex and Gender Information Value Date Recorded Sex Assigned at Male 12/06/2023 12:14 PM EDT Legal Sex Male 12:17 PM EDT Gender Identity Male 12/06/2023 12:14 PM EDT Sexual Orientation Choose not to disclose 2023 12:14 PM EDT Plan of Treatment Health Maintenance Due Date Last Done Comments Anxiety Screening 1984 Depression Screening 1984 HIV Screening 1984 Hepatitis C Screening 1984 DTaP,Tdap,Td Vaccine (1 - Tdap) 1985 Hepatitis B Vaccine (1 of 3 - 19+ 3-dose series) 05/[address] Colonography 2011 Cologuard (FIT-DNA) 2011 Colonoscopy 2011 Colorectal Cancer Screening 2011 Diabetes Screening 2011 Fecal Occult Blood 2011 Prostate Cancer Screening Discussion 2011 Sigmoidoscopy 2011 Pneumococcal Vaccine: 50+ (1 of 1 - PCV) 2016 Shingrix Vaccine (1 of 2) 2016 Influenza Vaccine (#1) 2024 Insurance [employer] MEDICA[employer] Member Subscriber Plan / Payer (Ef fective 2020-Present) Name:Patrick Buckley Relation to Subscriber:Self Name:InaPatrick [place] Payer ID:[id number] (NAIC) Group ID:Not on file Type:Medicaid Address: [facility] [address] [id number]
--- NOTE | 2024-11-12 13:25 | PM.CN ---
Consult Note: HPI Data of Consult Patient: known to practice within the last 3 years Consult date: 11/10/24 Requesting Physician: Stephy Hernandez MD Primary Care Provider: RODRIGO BRINK Consult Narrative Reason for consult: bilateral knee pain Narrative: 59yom who presents for in office injection. Continues to have bilateral knee pain, so will proceed with bilateral injection. cc:: CC: Stephy Hernandez MD Review of Systems ROS Status of ROS 10 or more systems reviewed and unremarkable except as noted in history and below PFSH PFS Medical History HIRAL (acute kidney injury) ?N17.9 - Acute kidney failure, unspecified (ICD-10) Sepsis ?A41.9 - Sepsis, unspecified organism (ICD-10) Cellulitis ?L03.90 - Cellulitis, unspecified (ICD-10) Psoriatic arthritis ?L40.50 - Arthropathic psoriasis, unspecified (ICD-10) Osteoarthritis ?M19.90 - Unspecified osteoarthritis, unspecified site (ICD-10) Upper back pain ?M54.9 - Dorsalgia, unspecified (ICD-10) Low back pain ?M54.50 - Low back pain, unspecified (ICD-10) Neck pain ?M54.2 - Cervicalgia (ICD-10) Numbness and tingling ?R20.0 - Anesthesia of skin (ICD-10) ?R20.2 - Paresthesia of skin (ICD-10) Hypertension ?I10 - Essential (primary) hypertension (ICD-10) Surgical History H/O umbilical hernia repair ?Z98.890 - Other specified postprocedural states (ICD-10) ?Z87.19 - Personal history of other diseases of the digestive system (ICD-10) H/O ventral hernia repair ?Z98.890 - Other specified postprocedural states (ICD-10) ?Z87.19 - Personal history of other diseases of the digestive system (ICD-10) H/O gastric bypass ?Z98.84 - Bariatric surgery status (ICD-10) History of herniorrhaphy ?Z98.890 - Other specified postprocedural states (ICD-10) ?Z87.19 - Personal history of other diseases of the digestive system (ICD-10) History of appendectomy ?Z90.49 - Acquired absence of other specified parts of digestive tract (ICD-10) Family History Mother Family history of DVT Family history of ovarian cancer Family history of lung cancer Brother Family history of myocardial infarction Family history of COPD (chronic obstructive pulmonary disease) Social History Highest level of school completed/degree received: some college, no degree Little interest or pleasure in doing things: not at all Feeling down, depressed, or hopeless: not at all Do you think of yourself as: lesbian/valles/homosexual Gender Identity: male Meds Home Medications and Allergies Home Medications ?Medication ?Instructions ?Recorded ?Confirmed ?Type amitriptyline 25 mg tablet 25 mg PO .HS 10/02/22 01/14/24 History azelastine 137 mcg-fluticasone 50 1 spray intranasal .QD 10/02/22 01/14/24 History mcg/spray nasal spray bisoprolol 10 1 tab PO .QD 10/02/22 01/14/24 History mg-hydrochlorothiazide 6.25 mg tablet calcium 500 mg (as 1 tab PO BID 10/02/22 01/14/24 History carbonate)-vitamin D3 5 mcg (200 unit) tablet (Oyster Shell Calcium-Vitamin D3) cetirizine 10 mg tablet 10 mg PO .QD 10/02/22 01/14/24 History cyanocobalamin (vitamin B-12) 1,000 mcg PO DAILY 10/02/22 01/14/24 History 1,000 mcg capsule folic acid 1 mg tablet 1 mg PO .QD 10/02/22 01/14/24 History halobetasol propionate 0.05 % 1 applic topical BID 10/02/22 01/14/24 History topical cream methotrexate sodium 2.5 mg tablet 2.5 mg PO QWEEK 10/02/22 01/14/24 History multivitamin 1 tab PO DAILY 10/02/22 01/14/24 History triamcinolone acetonide 0.1 % 1 applic topical BID 10/02/22 01/14/24 History topical cream amlodipine 5 mg tablet 5 mg PO .QD 01/14/24 01/14/24 History bupropion HCl 300 mg 24 hr tablet, 300 mg PO .QD 01/14/24 01/14/24 History extended release cefdinir 300 mg capsule 600 mg (2 x 300 mg) PO DAILY #20 01/17/24 Rx caps clindamycin HCl 300 mg capsule 300 mg PO Q6H 10 days #40 caps 01/17/24 Rx tizanidine 4 mg capsule 4 mg PO BID PRN muscle spasticity 06/02/24 Rx #60 caps gabapentin 300 mg capsule See Rx Instructions .Route 06/09/24 Rx .COMPLEX #150 caps diclofenac sodium 75 mg 75 mg PO BID PRN pain #60 tabs 07/03/24 Rx tablet,delayed release gabapentin 300 mg capsule See Rx Instructions .Route 07/03/24 Rx .COMPLEX #150 caps tizanidine 4 mg tablet 4 mg PO TID PRN muscle spasticity 10/15/24 Rx #90 tabs gabapentin 300 mg capsule See Rx Instructions .Route 11/03/24 Rx .COMPLEX #150 caps Allergies Allergy/AdvReac Type Severity Reaction Status Date / Time adalimumab (From Humira) Allergy Verified 07/17/23 08:17 morphine Allergy Verified 07/17/23 08:17 secukinumab (From Cosentyx) Allergy Verified 07/17/23 08:17 Exam Narrative Exam Narrative: Psych-alert and oriented x 3.? Attentive and appropriate, constitutionally normal, displays normal mood and affect per situation.? There are no obvious deficits in memory, reasoning, or intellect. Extremities-lower extremities are warm with minimal edema and palpable pulses. Knee-examination of the bilateral knee reveals tenderness to palpation over the superior, inferior, lateral, and medial aspect of the knee.? Some swelling is noted without erythema. Pain is elicited with flexion and extension of the knee both actively and passively.? Some grinding is noted with these motions.? There is no notable ligamental laxity or instability.? Coordination remains intact.? Gait remains antalgic. Assessment and Plan Assessment and Plan (1) Bilateral primary osteoarthritis of knee: Plan 59yom who presents for in office injection. Continues to have bilateral knee pain, so will proceed with bilateral knee injection. Procedure: Bilateral knee injection Medications: Synvisc-one x2 I explained the details of the procedure to the patient including the risks, benefits and alternatives. We had an informed discussion and the patient verbalized understanding and signed the consent form. All questions were answered appropriately.? A time out was performed.? After obtaining a comfortable seated position, the left knee was prepped with alcohol x3. A syringe containing the above medication was attached to a 25 gauge, 1.5 inch needle under strict aseptic technique. The lateral tibial plateau was palpated.? The needle was then advanced through the subcutaneous tissue in a medial and superior direction towards the joint space.? The contents of the syringe were gently injected without any resistance. The needle was removed and pressure was applied to the injection site to decrease the incidence of ecchymosis and hematoma formation.? A sterile bandage was applied. The same procedure was then completed on the opposite side.
== END 2024-11-10 14:11 | disposition home or self-care (01) ==
LOC: PM 14:10
PROVIDERS: PCP Family Medicine; Visit Provider Anesthesiology
DX: M17.0 Bilateral primary osteoarthritis of knee (principal)
CPT/HCPCS: 20610; J7318

== ENCOUNTER 2024-12-10 12:32 | Outpatient (OUT) | payer OTHER, SELFPAY ==
--- OUTSIDE RECORDS SUMMARY | 2023-07-20 10:30 | XMS_ITS ---
Author Organization [facility] Address [address] [place] [address] Care Team Providers Care Statistical Machine Mechanic Name Role Phone Shona Gallego Primary Care Provider REASON FOR VISIT ADJUSTMENT Encounters Encounter Location Date Provider Diagnosis [facility] [address] [place] [address] 07/20/2023 Shona Gallego Plan Of Treatment No Information Progress Notes * GLENDA VALENTE EDOB: [birth year] (59 yo M)Acc No.[id number]:07/20/2023 Dental Appointment Patient: Kolby GLENDA GREEN Provider: Sharan Gallego DDS :1965 A ge:58 Y S ex:Male Date:07/20/2023 Address:[address], [place], [id number] Subjective: * Chief Complaints: * 1 . ADJUSTMENT. * Medical History: Objective: * Vitals: Assessment: Plan: * Treatment: * Images: * Electronic signature of Isaiah Gallego DDS on 12/10/2024 at 12:36 PM EDT Sign off status: Pending * Provider: Sharan Gallego DDS Date: 07/20/2023 Generated for Lurdes peres/Mary/Fausto on: 0 12/10/2024 12:36 PM EDT
--- OUTSIDE RECORDS SUMMARY | 2024-01-04 05:10 | XMS_ITS ---
Author Organization [facility] Address [address] [place] [address] Care Team Providers Care Speech Clinician Name Role Phone MuraliGerman Primary Care Provider Lesly Adams Unavailable [phone] KEELEY PIERSON CNP Unavailable Unavailable REASON FOR VISIT C4-7 ACDF, TBH, 01/17 Medications Medication SIG (Take, Route, Frequency, Duration) Notes Start Date End Date Status cetirizine 10 mg 1 tab(s) Act kaajl folic acid 1 mg 1 tab(s) Acti ve amLODIPine 10 mg 1 tab(s) Act kajal methotrexate 2.5 mg as directed Active Vitamin D3 Active Vitamin B-12 Active ipratropium Active multivitamin Active fluticasone Active amitriptyline 10 mg 1 tab(s) Active gabapentin 300 mg 1 cap(s) Ac tive halobetasol topical 0.05% 1 amanda Active bisoprolol Active triamcinolone topical Active triamcinolone acetonide 80 mg/mL as directed Active Taltz Prefilled Syringe 80 mg/mL as directed Active Oyster Shell Calcium Active clobetasol topical A ctive diclofenac sodium 75 mg 1 tab(s) Active Encounters Encounter Location Date Provider Diagnosis [facility] [address] [place] [address] [address] [place] [address] 01/04/2024 Lesly Acuna Plan Of Treatment No Information Progress Notes * GLENDA VALENTE EDOB: [birth year] (59 yo M)Acc No.[id number]:01/04/2024 Patient: Kolby GLENDA GREEN Provider: Kolby Mcfadden MD, PhD :1965 A ge:58 Y S ex:Male Date:01/04/2024 Address:[facility] [address], [place], [id number] Pcp:German Carrion Subjective: * Chief Complaints: * 1 . C4-7 ACDF, TBH, 01/17. * Medical History: * Medications: T aking Taltz Prefilled Syringe 80 mg/mL solution as directed , Taking clobetasol topical , Taking diclofenac sodium 75 mg delayed release tablet 1 tab(s) , Taking Oyster Shell Calcium , Taking halobetasol topical 0.05% cream 1 amanda , Taking triamcinolone topical , Taking triamcinolone acetonide 80 mg/mL suspension as directed , Taking bisoprolol , Taking gabapentin 300 mg capsule 1 cap(s) , Taking multivitamin , Taking Vitamin B-12 , Taking ipratropium , Taking fluticasone , Taking amitriptyline 10 mg tablet 1 tab(s) , Taking cetirizine 10 mg tablet 1 tab(s) , Taking folic acid 1 mg tablet 1 tab(s) , Taking methotrexate 2.5 mg tablet as directed , Taking Vitamin D3 , Taking amLODIPine 10 mg tablet 1 tab(s) Objective: * Vitals: Assessment: Plan: * Treatment: Forms: * Images: * Electronic signature of Eloise Acuna MD, PHD on 12/10/2024 at 12:35 PM EDT Sign off status: Pending * Provider: Kolby Mcfadden MD, PhD Date: Generated for Lurdes peres/Mary/Fausto on: 0 12/10/2024 12:35 PM EDT
--- OUTSIDE RECORDS SUMMARY | 2024-01-10 08:00 | XMS_ITS ---
Author Organization [facility] Address [address] [place] [address] Care Team Providers Care Oxygen Equipment Preparer Name Role Phone German Carrion Primary Care Provider Lesly Adams Unavailable [phone] KEELEY PIERSON CNP Unavailable Unavailable REASON FOR VISIT C4-7 ACDF Encounters Encounter Location Date Provider Diagnosis [facility] [address] [place] [address] 01/10/2024 Lesly Acuna Plan Of Treatment No Information Progress Notes * GLENDA VALENTE EDOB: [birth year] (59 yo M)Acc No.[id number]:01/10/2024 Patient: Kolby GLENDA GREEN Provider: Kolby Mcfadden MD, PhD :1965 A ge:58 Y S ex:Male Date:01/10/2024 Address:[facility] [address] [place], [id number] Pcp:German Carrion * Images: * Electronic signature of Eloise Acuna MD, PHD on 12/10/2024 at 12:37 PM EDT Sign off status: Pending * Provider: Kolby Mcfadden MD, PhD Date: 1 Generated for Lurdes ng/Faserenity/eTransmitting on: 0 12/10/2024 12:37 PM EDT
--- OUTSIDE RECORDS SUMMARY | 2024-01-18 03:30 | XMS_ITS ---
Author Organization [facility] Address [address] [place] [address] Care Team Providers Care Employment Training Specialist Name Role Phone German Carrion Primary Care Provider Lesly Adams Unavailable [phone] KEELEY PIERSON CNP Unavailable Unavailable REASON FOR VISIT C4-7 ACDF Encounters Encounter Location Date Provider Diagnosis [facility] Surgery Scheduling [address] [facility] [place] [address] 01/18/2024 Lesly Acuna Plan Of Treatment No Information Progress Notes * GLENDA VALENTE EDOB: [birth year] (59 yo M)Acc No.[id number]:01/18/2024 Patient: Kolby GLENDA GREEN Provider: Kolby Mcfadden MD, PhD :1965 A ge:58 Y S ex:Male Date:01/18/2024 Address:[facility] [place], [id number] Pcp:German Carrion * Images: * Electronic signature of Eloise Acuna MD, PHD on 12/10/2024 at 12:36 PM EDT Sign off status: Pending * Provider: Kolby Mcfadden MD, PhD Date: Generated for Lurdes peres/Mary/eTransmitting on: 0 12/10/2024 12:36 PM EDT
--- OUTSIDE RECORDS SUMMARY | 2024-02-08 05:30 | XMS_ITS ---
Author Organization [facility] Address [address] [place] [address] Care Team Providers Care Nuclear Weapons Specialist Name Role Phone Shona Gallego Primary Care Provider [phone] Arthur Marcella Adan [phone] REASON FOR VISIT 6 MO PROPHY Encounters Encounter Location Date Provider Diagnosis [facility] [address] [place] [address] 02/08/2024 Marcella Adan Plan Of Treatment No Information Progress Notes * GLENDA VALENTE EDOB: [birth year] (59 yo M)Acc No.[id number]:02/08/2024 Patient: GLENDA BRANCH Provider: Alivia Adan :1965 A ge:58 Y S ex:Male Date:02/08/2024 [facility] [id number] Pcp:Shona Gallego Subjective: * Chief Complaints: * 1 . 6 MO PROPHY. * Medical History: Objective: * Vitals: Assessment: Plan: * Treatment: * Images: * Electronic signature of Mahendra Adan on 12/10/2024 at 12:35 PM EDT Sign off status: Pending * Provider: Alivia Adan Date: 04/09/2023 Generated for Lurdes peres/Mary/eTransmitting on: 0 12/10/2024 12:35 PM EDT
--- OUTSIDE RECORDS SUMMARY | 2024-02-22 07:40 | XMS_ITS ---
Author Organization [facility] Address [address] [place] [address] Care Team Providers Care Skip Tender Name Role Phone MuraliGerman Primary Care Provider Lesly Adams Unavailable [phone] KEELEY PIERSON CNP Unavailable Unavailable REASON FOR VISIT C4-7 ACDF, TBH, 01/17 Medications Medication SIG (Take, Route, Frequency, Duration) Notes Start Date End Date Status methotrexate 2.5 mg as directed Active fluticasone Active cetirizine 10 mg 1 tab(s) Act kajal amitriptyline 10 mg 1 tab(s) Active folic acid 1 mg 1 tab(s) Acti ve gabapentin 300 mg 1 cap(s) Ac tive bisoprolol Active Vitamin B-12 Active multivitamin Active ipratropium Active triamcinolone acetonide 80 mg/mL as directed Active Oyster Shell Calcium Active diclofenac sodium 75 mg 1 tab(s) Active triamcinolone topical Active halobetasol topical 0.05% 1 amanda Active Vitamin D3 Active amLODIPine 10 mg 1 tab(s) Act kajal clobetasol topical A ctive Taltz Prefilled Syringe 80 mg/mL as directed Active Encounters Encounter Location Date Provider Diagnosis [facility] [address] [place] [phone] 02/22/2024 Lesly Acuna Plan Of Treatment No Information Progress Notes * GLENDA VALENTE EDOB: [birth year] (59 yo M)Acc No.[id number]:02/22/2024 Progress Notes Patient: Kolby GLENDA GREEN Provider: Kolby Mcfadden MD, PhD :1965 A ge:58 Y S ex:Male Date:02/22/2024 Address:[facility] [address] [place], [id number] Pcp:German Carrion Subjective: * Chief Complaints: * [...] * Provider: Kolby Mcfadden MD, PhD Date: 04/23/2023 Generated for Lurdes peres/Mary/Ayeshaitting on: 12/10/2024 12:36 PM EDT
--- OUTSIDE RECORDS SUMMARY | 2024-12-10 12:36 | XMS_ITS | Encounter Summary ---
Author Organization [facility] Address [address] [place] [address] Care Team Providers Care Compliance Representative Name Role Phone German Carrion MD Primary Care Provider Reason for Visit * Reason Comments Medication Refill Encounter Details Date Type Department Care Team (Late st Contact Info) Description 11/29/2024 Refill [facility] [address] [place] [address] Kavin Kumar, Baljinder Vasquez, DO [address] [place] [address] Psoriatic arthritis; Psoriatic spondylitis; Psoriasis; Plaque psoriasis; Anemia, unspecified type; Methotrexate, halfway, current use; Long-term current use of high risk medication other than anticoagulant; intermediate project manager current use of systemic steroids; intermediate project manager current use of non-steroidal anti-inflammatories (NSAID); History [...] both shoulders; DDD (degenerative disc disease), cervical Social History Tobacco Use Types Packs/Day Years Used Date Smoking Tobacco: Former Smokeless Tobacco: Never Comments:Quit 10/2017 Alcohol Use Standard Drinks/Week Comments No 0 (1 standard drink = 0.6 oz pur e alcohol) Sex and Gender Information Value Date Recorded Sex Assigned at Not on file Legal Sex Male 12:19 PM EDT Gender Identity Male 12/31/2017 12:30 PM EDT Sexual Orientation Not on file documented as of this encounter Functional Status * Are you deaf or do you have serious difficulty hearing? Answer Date of Assessment Author No 03/29/2018 7:13 AM Kathe Price LPN * Are you blind or do you have serious difficulty seeing, even when wearing glasses? Answer Date of Assessment Author No 03/29/2018 7:13 AM Kathe Price LPN * Do you have serious difficulty walking or climbing stairs (5 years or older)? Answer Date of Assessment Author No 03/29/2018 7:13 AM Kathe Price LPN * Do you have difficulty dressing or bathing (5 yrs or older)? Answer Date of Assessment Author No 03/29/2018 7:13 AM Kathe Price LPN * Because of a physical, mental, or emotional condition, do you have difficulty doing errands alone such as visiting a doctor's office or shopping (5 yrs or older)? Answer Date of Assessment Author No 03/29/2018 7:13 AM Kathe Price LPN documented as of this encounter Mental Status * Because of a physical, mental, or emotional condition, do you have serious difficulty concentrating, remembering, or making decisions (5 yrs or older)? Answer Entry Date Author No 03/29/2018 7:13 AM Kathe Price LPN documented in this encounter Miscellaneous Notes * Telephone Encounter - Baljinder Vale Jr., DO - 12/03/2024 4:53 AM EDT Will try to escribe in for the patient documented in this encounter Plan of Treatment Upcoming Encounters Date Type Department Care Team (Late st Contact Info) Description 02/17/2025 10:00 AM EST Office Visit [facility] [address] [place] [address] Baljinder Vale Jr., DO [address] [place] [address] documented as of this encounter Visit Diagnoses Diagnosis Psoriatic arthritis Psoriatic arthropathy Psoriatic spondylitis Psoriatic arthropathy Psoriasis Other psoriasis Plaque psoriasis Other psoriasis Anemia, unspecified type Methotrexate, terminal clerk, current use Encounter for long-term (current) use of other medications Long-term current use of high risk medication other than anticoagulant nursing home current use of systemic steroids Encounter for long-term (current) use of steroids intermediate project manager current use of non-steroidal anti-inflammatories (NSAID) Encounter [...] cervical intervertebral disc documented in this encounter Care Teams Compliance Representative Relationship Specialty Start Date End Date German Carrion MD PCP - General Family Medicine 07/31/23 documented as of this encounter
--- OUTSIDE RECORDS SUMMARY | 2024-12-10 12:36 | XMS_ITS | Patient Health Record ---
Author Organization [facility] Address [address] [place] [address] Care Team Providers Care Restorer Lace And Textiles Name Role Phone Shona Gallego Primary Care Provider Marcella Adan Unavailable [phone] Reason For Referral No Information Plan Of Treatment No Information Insurance Providers Payer Name Payer Address Payer Phone Subscriber Number Group Number Insured Name Patient Relationship to Insured Coverage Start Date Coverage End Date [employer] [place] Medicaid [address] [place] [address] [id number] AMBROSIOGLENDA Jarrett Self - patient is the insured 3 Wrap [employer] [address] [place] [address] [id number] AMBROSIOGLENDA Self - patient is the insured 3 [employer] CE-termed 22 [address] [place] [id number] AMBROSIOGLENDA Jarrett Self - patient is the insured 2 3 zDENTAL DQ [employer] E-termed 22 [address] [place] [address] [id number] AMBROSIOGLENDA Jarrett Self - patient is the insured 2 3 zMEDICAID C[employer] after [employer] E-termed [address] [place] [address] [id number] GLENDA VALENTE Self - patient is the insured 2 3 zDental MEDICAID [facility] after [employer] E-termed 22 [address] [place] [address] [id number] GLENDA VALENTE Self - patient is the insured 2 3 Dental [employer] [place] [address] [place] [address] [id number] GLENDA VALENTE Self - patient is the insured 3 Dental Wrap [facility] Care[employer]ourc e [address] [place] [address] [id number] GLENDA VALENTE Self - patient is the insured 3
--- OUTSIDE RECORDS SUMMARY | 2024-12-10 12:36 | XMS_ITS | Clinical Summary ---
Author Organization [facility] Address [address] [place] [address] Care Team Providers Care Plate And Frame Filter Operator Name Role Phone Unavailable Primary Care Provider [...] (NAIC) Group ID:Not on file Type:Medicaid Address: [facility] [address] [id number]
--- NOTE | 2024-12-10 12:37 | XR_ITS ---
The [address] [address] Patient Name: GLENDA VALENTE MRN: [id number] date: 1965 Sex: M Assigned Patient Location: [facility] Current Patient Location: [facility] Accession/Order Number: [id number] Exam Date: 12/10/2024 12:50 Report Date: 12/10/2024 15:41 At the request of: ZAIN FINE MD Procedure: XR abdomen 1V KUB: CLINICAL INFORMATION: Kidney stones COMPARISON: CT abdomen and pelvis 10/17/2023 FINDINGS: Bilateral nephrolithiasis once again demonstrated similar configuration to the prior CT largest measuring 12 mm within the right kidney. No definite ureteral or urinary bladder calculus. No bowel obstruction or free air. Osseous structures demonstrate degenerative change. XR/XR abdomen 1V IMPRESSION: BILATERAL NEPHROLITHIASIS GROSSLY SIMILAR TO THE PRIOR STUDY. Impression dictated by: Og Viera Jr., DMichaelOMichael 12/10/2024 3:41 PM Dictation Location: [place] [address] Electronically authenticated by: [id number] Y Date: 12/10/2024 15:41
--- OUTSIDE RECORDS SUMMARY | 2024-12-10 12:37 | XMS_ITS | Encounter Summary ---
Author Organization [facility] Address [address] [place] [address] Care Team Providers Care Field Examiner Name Role Phone Unavailable Primary Care Provider Unavailabl e Reason for Visit * Reason Comments Med Refill Encounter Details Date Type Department Care Team (Late st Contact Info) Description 12/21/2023 Refill [facility] [address] [facility] [facility] [address] [address] [place] [address] Concha Antoine, TORQUE TESTER-LEAD COATER [address] [place] [address] Psoriasis vulgaris Social History Tobacco [...] Visit [facility] [address] [facility] [address] [place] [address] Concha Antoine, TORQUE TESTER-LEAD COATER [address] [place] [address] documented as of this encounter Visit Diagnoses Diagnosis Psoriasis vulgaris Other psoriasis documented in this encounter
--- OUTSIDE RECORDS SUMMARY | 2024-12-10 12:37 | XMS_ITS | Clinical Summary ---
Author Organization [facility] Address [address] [place] [address] Care Team Providers Care Aggregate Conveyor Operator Name Role Phone Unavailable Primary Care [...] SPRAY 2 SPRAYS INTO EACH NOSTRIL DAILY, [facility] [id number] 07/03/19 23 Active folic acid (Folvite) 1 MG tablet Take 1,000 mcg by mouth in the morning. Act kajal gabapentin (Neurontin) 300 MG capsule Take 300 mg by mouth in the morning and 300 mg before bedtime. Active hydroCHLOROth iazide (HYDRODiuril) 25 MG tablet hydrochlorothiazide 25 mg tablet Take 1 tablet every day by oral route. Active cholecalcifer ol (Vitamin D-3) 250 MCG (19436 UT) capsule TAKE 1 CAPSULE BY MOUTH ONE TIME PER WEEK Active HYDROcodone-a cetaminophen ([place]) 5-325 MG tablet Take 1 tablet by mouth 2 (two) times a day as needed. 12/30/19 23 Active ipratropium (Atrovent) 0.03 % nasal spray See Instructions, 30 Unspecified/Unknown, Refill(s) 0, USE 2 SPRAYS IN EACH NOSTRIL 3 TIMES A DAY, [facility] STORE [id number] 07/06/19 23 Active methotrexate 2.5 MG tablet [...] Dermatology [address] [place] [address] Concha Antoine APRN-FIRE EXTINGUISHER SPRINKLER INSPECTOR [address] [place] [address] Health Maintenance Due Date Last Done Comments CT Colonography 1966 Colonoscopy 1966 Colorectal Cancer Screening 1966 FIT-DNA 1966 FIT 1966 FOBT 1966 Sigmoidoscopy 1966 Influenza Vaccine (#1) 2024 01/15/[address] [place] [address] [employer]
--- OUTSIDE RECORDS SUMMARY | 2024-12-10 12:37 | XMS_ITS | Encounter Summary ---
Author Organization [facility] Address [address] [facility] [place] [address] Care Team Providers Care Marine Mechanic Name Role Phone Unavailable Primary Care Provider Unavailabl e Reason for Visit * Reason Comments Med Refill Encounter Details Date Type Department Care Team (Late st Contact Info) Description 02/09/2023 Refill [facility] [address] [facility] [address] [place] [address] Concha Antoine, CASINO CAGE CASHIER-SANITATION SUPERINTENDENT [address] [facility] [address] [place] [address] Psoriasis vulgaris Social History Tobacco [...] Office Visit [facility] [address] [facility] [address] [place] [address] Concha Antoine, CASINO CAGE CASHIER-SANITATION SUPERINTENDENT [address] [facility] [address] [place] [address] documented as of this encounter Visit Diagnoses Diagnosis Psoriasis vulgaris Other psoriasis documented in this encounter
--- OUTSIDE RECORDS SUMMARY | 2024-12-10 12:37 | XMS_ITS | Encounter Summary ---
Author Organization [facility] Address [address] [facility] [place] [address] Care Team Providers Care Assistant Chief Nursing Officer Name Role Phone Unavailable Primary Care Provider Unavailabl e Reason for Visit * Reason Comments Med Refill Encounter Details Date Type Department Care Team (Late st Contact Info) Description 01/12/2023 Refill [facility] [place] [facility] [address] [facility] [address] [place] [address] Concha Antoine, GARMENT CUTTER-PROFESSOR OF MANAGEMENT [address] [facility] 350 [place] [address] Psoriasis vulgaris Social History Tobacco [...] Office Visit [facility] [address] [email or web address] [address] [facility] [address] [place] [address] Concha Antoine, GARMENT CUTTER-PROFESSOR OF MANAGEMENT [address] [facility] [address] [place] [address] documented as of this encounter Visit Diagnoses Diagnosis Psoriasis vulgaris Other psoriasis documented in this encounter
--- OUTSIDE RECORDS SUMMARY | 2024-12-10 12:37 | XMS_ITS | Encounter Summary ---
Author Organization [facility] Address [address] [facility] [place] [address] Care Team Providers Care Oiler And Greaser Name Role Phone Unavailable Primary Care Provider Unavailabl e Reason for Visit * Reason Comments Med Refill Encounter Details Date Type Department Care Team (Late st Contact Info) Description 01/23/2024 Refill [facility] [address] [facility] [address] [facility] [address] [place] [address] Concha Antoine, CONSTRUCTION INSPECTOR-CEMENT FINISHER [address] [facility] [address] [place] [address] Psoriasis vulgaris Social History Tobacco [...] Office Visit [facility] [address] [facility] [address] [place] [address] Concha Antoine, CONSTRUCTION INSPECTOR-CEMENT FINISHER [address] [place] [address] documented as of this encounter Visit Diagnoses Diagnosis Psoriasis vulgaris Other psoriasis documented in this encounter
--- OUTSIDE RECORDS SUMMARY | 2024-12-10 12:37 | XMS_ITS | Patient Health Record ---
Author Organization [facility] Address [address] [place] [address] Care Team Providers Care Machining Technician Name Role Phone Murali German Primary Care Provider Unavailenrike e Lesly Acuna Unavailable [phone] KEELEY PIERSON CNP Unavailable Unavailable Allergies Allergen [...] Surgeon/Assist: st rothman/neelam or heath Surgery Location: [facility] Surgery Date & Time: 01/10/24 @ 12:00 PM Hosp arrival time day of: 11:00AM Surgery End Time: 2PM Procedure: C4-7 ACDF Special Equipment: SSEP, SUPINE, OR TAB LE, SURGALIGN Diagnosis: M48.02 CERVICAL STENOSIS Admission Type: INPATIENT Anesthesia Type/CPNB: GENERAL Post-op Appointment Date: 02/22/24 @ 11:40AM SRIKANTH Lab Location: [facility] 01/01/24 @ 9AM Reed Polisher: ALEKSEY Ball Physician: DR BRINK 01/07/24 @ 9:15AM History & Physical Appointme nt Date/: 01/04/24 @ 9:10AM [place] Reason For Referral Reason APPROVED INPATIENT.......................01/10/24........................[facility] C4-7 ACDF Karlene Davis 12/18/2023 12:01:43 >[id number], 12476 x2, 91520, 70686 Diagnosis 1 Cervical radiculopathy (M54.12) Diagnosis 2 Cervical spinal stenosis (M48.02) Referral Organizati on [facility] Referring Provider First Name Lesly Referring Provider Last Name [facility] Referring Provider Speciality Orthopedic Surgery Referred Organizati on [facility] Inpatient Referred Address [address] [place],[address],[place] Procedure 1 Arthrodesis, anterior interbody, includi ng disc space prep, discectomy, osteophytectomy & decompression of spinal cord and/or nerve roots, cervical below C2 (77290) Procedure 2 Arthrodesis, cervical below C2 each add' l interspace (99536) Procedure 3 Anterior instrumentation; 4-7 vertebral segments (04106) Procedure 4 Allograft for spine surgery only; [...] > AUTHORIZATION REQUEST SUBMITTED WITH CLINICALS [employer] PROVIDER PORTAL INPATIENT DUE TO CPT CODE 17131 BEING ON MEDICAID INPATIENT LIST, PENDING AUTHORIZATION # [id number], Katie Garcia 12/24/2023 07:14:04 AM > AUTHORIZATION # [id number] APPROVED AND VALID 01/10/24-01/11/24 PER FAX BACK [...] Vitamin B-12 Active halobetasol topical 0.05% 1 amanda Active Social History Tobacco Use: Social History [...] Problem Status W/U Status Risk Notes Problem [id number] Cervical radiculopathy (M54.12) Active confirmed Problem [id number] Cervical spinal stenosis (M48.02) Active confirmed Problem Degeneration of cervical intervertebral disc (49367246) Degeneration of intervertebral disc at C5-C6 level (M50.322) Active confirmed Problem Degeneration of cervical intervertebral disc (53850786) Degeneration of intervertebral disc at C6-C7 level (M50.323) Active confirmed Problem Degeneration of cervical intervertebral disc (14629420) Degeneration of intervertebral disc at C4-C5 level (M50.321) Active confirmed Encounters Encounter Location Date Provider Diagnosis [facility] [address] [place] [address] 12/14/2023 Lesly Acuna Cervical radiculopat hy M54.12 [...] Name Order Date Chest 2 views - [id number] 12/14/2023 CBC 12/14/2023 Type and Screen Blood Type 12/14/2023 PT/PTT 12/14/2023 BMP 12/14/2023 MRSA (Bilateral Nares) PCR 12/14/2023 EKG 12/14/2023 Insurance Providers Payer Name Payer Address Payer Phone Subscriber Number Group Number Insured Name Patient Relationship to Insured Coverage Start Date Coverage End Date Medicaid [employer] [place] [address] [place] [address] [id number] GLENDA VALENTE Self - patient is the insured Medical (General) History Medical History History ICD Code High Blood Pressure Bronchitis Kidney stones Osteoarthritis Depression Surgical History Surgery Date(Month/Year) Gastric bypass 2003
--- OUTSIDE RECORDS SUMMARY | 2024-12-10 12:37 | XMS_ITS | Encounter Summary ---
Author Organization [facility] Address [address] [place] [address] Care Team Providers Care Lye Bath Operator Name Role Phone Unavailable Primary Care Provider Unavailabl e Reason for Visit * Reason Comments Med Refill Encounter Details Date Type Department Care Team (Late st Contact Info) Description 02/28/2023 Refill [facility] [address] [place] [address] Concha Antoine, BRICK DROPPER-LAMP WIRER [address] [place] [address] Psoriasis vulgaris Social History Tobacco [...] Encounters Date Type Department Care Team (Late Contact Info) Description 03/05/2025 8:50 AM EST Office Visit [facility] [address] [facility] [address] [place] [address] Concha Antoine, BRICK DROPPER-LAMP WIRER [address] [place] [address] documented as of this encounter Visit Diagnoses Diagnosis Psoriasis vulgaris Other psoriasis documented in this encounter
--- OUTSIDE RECORDS SUMMARY | 2024-12-10 12:37 | XMS_ITS | Clinical Summary ---
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 Active hydrochlorothiazid e 25 MG Tab hydrochlorothiazide 25 mg tablet Take 1 tablet every day by oral route. Active gabapentin 300 MG Cap capsule Take 1 capsule by mouth daily every morning. 0 2017 Active cetirizine 10 MG Tab tablet Take 1 tablet by mouth daily. 5 2018 Active amitriptyline 25 MG tablet TAKE 2 TABLETS BY MOUTH 2 HOURS BEFORE BEDTIME 2020 Active bisoprolol-hydroch lorothiazide 10-6.25 MG per tablet TAKE 1 TABLET BY MOUTH EVERY DAY IN THE MORNING 2020 Active Calcium Carbonate-Vitamin D (Oyster Shell Calcium/D) 500-200 MG-UNIT tablet Take 1 tablet by mouth 2 times daily. 2020 Active hyoscyamine 0.125 MG tablet TAKE 1 TABLET BY MOUTH EVERY 6 HOURS NEEDED FOR ABDOMINAL PAIN 2020 Active Taltz 80 MG/ML Solution Auto-injector 2021 Active Oyster Shell Calcium w/D 500-5 MG-MCG tablet TAKE 1 TABLET BY MOUTH TWICE A DAY 60 tablet 5 2022 Active clobetasol 0.05 % CreamIndications:R benny APPLY TO AFFECTED AREAS TWICE A DAY FOR 2 WEEKS 15 g 11 2024 Active Cholecalciferol (Vitamin D3) 250 MCG (64108 UT) capsuleIndications :Vitamin D deficiency Take 1 capsule by mouth once a week. 12 capsule 4 2024 Active Folic acid 1 MG tabletIndications: Psoriatic arthritis,Primary osteoarthritis of both knees,Osteoarthrit is of both wrists, unspecified osteoarthritis type,Osteoarthriti s of both hips, unspecified osteoarthritis type,Osteoarthriti s of both hands, unspecified osteoarthritis type,Osteoarthriti s of both glenohumeral joints,Osteoarthri tis of both acromioclavicular joints,Osteoarthri tis of cervical spine, unspecified spinal osteoarthritis complication status,Lumbosacral spondylosis without myelopathy,Impinge ment syndrome of both shoulders,DDD (degenerative disc disease), cervical,SAPHO syndrome,Macrocyti c anemia,Psoriasis,P laque psoriasis,Hyperchr omic anemia,Methotrexat e, residential, current use,Long-term current use of high risk medication other than anticoagulant,Hist ory of psoriatic arthritis,History of kidney stones,Abnormal renal function test,Vitamin D deficiency,Psoriat ic spondylitis,Psoria tic arthropathy of distal interphalangeal (DIP) joint TAKE 1 TABLET BY MOUTH EVERY DAY 90 tablet 3 2024 Active triamcinolone 0.1 % Ointment ointmentIndication s:Psoriatic arthritis,Primary osteoarthritis of both knees,Osteoarthrit is of both wrists, unspecified osteoarthritis type,Osteoarthriti s of both hips, unspecified osteoarthritis type,Osteoarthriti s of both hands, unspecified osteoarthritis type,Osteoarthriti s of both glenohumeral joints,Osteoarthri tis of both acromioclavicular joints,Osteoarthri tis of cervical spine, unspecified spinal osteoarthritis complication status,Impingement syndrome of both shoulders,DDD (degenerative disc disease), cervical,Psoriasis ,Plaque psoriasis,Long-ter m current use of high risk medication other than anticoagulant,Hist ory of psoriatic arthritis,Vitamin D deficiency,Psoriat ic spondylitis,Anemia , unspecified type,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, 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, 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,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,residential current use of non-steroidal anti-inflammatorie s (NSAID) APPLY TO AFFECTED AREA TWICE A DAY NEEDED 80 g 11 2024 Active methotrexate 2.5 MG tablet TAKE 7 TABLETS BY MOUTH ONE TIME PER WEEK 28 tablet 7 2024 Active triamcinolone 0.1 % Cream creamIndications:P soriatic arthritis,Psoriati c spondylitis,Psoria sis,Plaque psoriasis,Anemia, unspecified type,Methotrexate, residential, current use,Long-term current use of high risk medication other than anticoagulant,residential current use of systemic steroids,residential current use of non-steroidal anti-inflammatorie s (NSAID),History of psoriatic arthritis,Vitamin D deficiency,Primary osteoarthritis of both knees,Osteoarthrit is of both wrists, unspecified osteoarthritis type,Osteoarthriti s of both hips, unspecified osteoarthritis type,Osteoarthriti s of both hands, unspecified osteoarthritis type,Osteoarthriti s of both glenohumeral joints,Osteoarthri tis of both acromioclavicular joints,Osteoarthri tis of cervical spine, unspecified spinal osteoarthritis complication status,Impingement syndrome of both shoulders,DDD (degenerative disc disease), cervical APPLY TO AFFECTED AREA TWICE A DAY NEEDED 45 g 3 2024 Active triamcinolone 0.1 % Cream creamIndications:P soriatic arthritis,Psoriati c spondylitis,Psoria sis,Plaque psoriasis,Anemia, unspecified type,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, 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, 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,Long-term current use of high risk medication other than anticoagulant,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,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-inflammatorie s (NSAID),History of psoriatic arthritis,Vitamin D deficiency,Primary osteoarthritis of both knees,Osteoarthrit is of both wrists, unspecified osteoarthritis type,Osteoarthriti s of both hips, unspecified osteoarthritis type,Osteoarthriti s of both hands, unspecified osteoarthritis type,Osteoarthriti s of both glenohumeral joints,Osteoarthri tis of both acromioclavicular joints,Osteoarthri tis of cervical spine, unspecified spinal osteoarthritis complication status,Impingement syndrome of both shoulders,DDD (degenerative disc disease), cervical APPLY TO AFFECTED AREA TWICE A DAY NEEDED 45 g 3 12/03 Discontinued Active Problems Problem Noted Date Diagnosed Date History of kidney stones 07/25/2022 Abnormal renal function test 01/13/2020 Noncompliance 09/03/2018 Patient non adherence 09/03/2018 Vitamin D deficiency 05/03/2018 Osteoarthritis cervical spine 05/03/2018 DDD (degenerative disc disease), cervical 2018 Osteoarthritis of both hips 05/03/2018 Osteoarthritis of both acromioclavicular joints 05/03/2018 Osteoarthritis of both glenohumeral joints 05/03 Impingement syndrome of both shoulders 9 Primary osteoarthritis of both knees 05/03/2018 Osteoarthritis of both wrists 05/03/2018 Osteoarthritis of both hands 05/03/2018 body mass index of 40.0-49.9 05/03/2018 Fatigue 03/29/2018 Disorder of bone and cartilage 03/29/2018 History of psoriatic arthritis 03/29/2018 Psoriasis 03/29/2018 Long-term current use of hig h risk medication other than anticoagulant 03/29/2018 Cervicalgia 03/29/2018 Dorsalgia 03/29/2018 Chronic pain of both shoulders 03/29/2018 Bilateral elbow joint pain 03/29/2018 Bilateral wrist pain 03/29/2018 Bilateral hand pain 03/29/2018 Chronic pain of both knees 03/29/2018 Essential (primary) hypertension 12/31/2017 Lumbosacral spondylosis without myelopathy 04/20 Chronic pain disorder 12/29/2016 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 12/29/2016 Psoriatic spondylitis 12/29/2016 SAPHO syndrome 12/29/2016 Psoriatic arthritis 11/01/2016 Well adult health check 10/13/2016 Hypertensive disorder 10/13/2016 Plaque psoriasis 03/01/2016 Resolved Problems Problem Noted Date Diagnosed Date Resolved Date Hyperchromic anemia 07/12/2021 08/20/19 25 Macrocytic anemia 05/03/2018 08/19/2024 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 -steroidal anti-inflammatories (NSAID) 03/29/2018 01/23/2023 residential current use of systemic steroids 03/29/2018 09/09/2019 Methotrexate, residential, current use 03/29/2018 08/19/2024 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 of imm unosuppressive drug 04/20/2017 03/29/2018 Multiple joint pain 10/13/2016 09/09/19 20 Encounters Date Type Department Care Team Description 11/29/2024 Refill [facility] Rheumatology [address] [place] [phone] Baljinder Vale Jr., DO Psoriatic arthritis; Psoriatic spondylitis; Psoriasis; Plaque psoriasis; Anemia, unspecified type; Methotrexate, residential, current use; Long-term current use of high risk medication other than anticoagulant; 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; residential current use of non-steroidal anti-inflammatories (NSAID); History [...] both shoulders; DDD (degenerative disc disease), cervical 09/27/2024 Refill [facility] Rheumatology [address] [place] [address] Baljinder Vale Jr., DO from Last 3 Months Social History Tobacco Use Types Packs/Day Years Used Date Smoking Tobacco: Former Smokeless Tobacco: Never Tobacco Cessation:Counseling Given: Not Answered Comments:Quit 10/2017 Alcohol Use Standard Drinks/Week Comments No 0 (1 standard drink = 0.6 oz pur e alcohol) Sex and Gender Information Value Date Recorded Sex Assigned at Not on file Legal Sex Male 12:19 PM EDT Gender Identity Male 12/31/2017 12:30 PM EDT Sexual Orientation Not on file Last Filed Vital Signs Vital Sign Reading Time Taken Comments Blood Pressure 130/86 08/19/2024 9:02 AM EDT Pulse 78 08/19/2024 9:02 AM EDT Temperature 36.6 C (97.8 F) 01/23/2023 8:58 AM EDT Respiratory Rate 18 07/25/2022 8:41 AM EDT Oxygen Saturation 97% 08/19/2024 9:02 AM EDT Inhaled Oxygen Concentration - - Weight 112 kg (247 lb) 08/19/2024 9:02 AM EDT Height 182.9 cm (6') 08/19/2024 9:02 AM EDT Body Mass Index 33.5 08/19/2024 9:02 AM EDT Plan of Treatment Upcoming Encounters Date Type Department Care Team (Late st Contact Info) Description 02/17/2025 10:00 AM EST Office Visit [facility] Rheumatology [address] [place] [phone] Kavin Kumar, Baljinder Vasquez, DO [address] [place] [address] Health Maintenance Due Date Last Done Comments HEPATITIS C VIRUS SCREENING 1966 POTASSIUM 1966 HIV SCREENING DISCUSSION 1981 HEP B VACCINE (1 of 3 - 19+ 3-dose series) 1985 LIPID SCREENING 2006 COLORECTAL CANCER SCREENING DISCUSSION 2011 PNEUMOCOCCAL VACCINE SERIES (1 of 1 - PCV) 2016 ZOSTER (SHINGLES) VACCINE (1 of 2) 2016 PROSTATE CANCER SCREENING DISCUSSION 2021 COVID-19 VACCINE (3 - 2024- season) 12/01/202410/2020, 08/17/2020 INFLUENZA VACCINE (#1) 2024 01/15/2024 TETANUS 11/14/2029 11/15/2019 TDAP (ADULT) Completed 11/15/2019 [facility] Care Teams Washing Machine Loader Relationship Specialty Start Date End Date German Carrion MD PCP - General Family Medicine 07/31/23
--- OUTSIDE RECORDS SUMMARY | 2024-12-10 12:49 | XMS_ITS | CCD ---
Author Organization [facility] Care Team Providers Care Brand Advisor Name Role Phone Rodrigo Luz Unavailable PILI ALLAN Surgeon Unavailable PILI ALLAN Attending Unavailable PILI ALLAN Admitting Unavailable [place] Procedure Practitioner Unavailab RODRIGO Proctor Referring Unavailable RODRIGO LUZ Primary Care Unavailable DANIELA MILIAN Surgeon Unavailable LA Procedure Practitioner UnavailRodrigo Cannon MD Primary Care Provider Rodrigo Luz MD Primary Care Provider TRA MAHMOOD JR Attending Unavailable TRA MAHMOOD JR Referring Unavailable RODRIGO LUZ Primary Care Unavailable TRA MAHMOOD JR Attending Unavailable TRA MAHMOOD JR Referring Unavailable RODRIGO LUZ Primary Care Unavailable Tania Neal Unavailable TRA MAHMOOD Admitting Unavailable TRA MAHMOOD Attending Unavailable LUZ ., DR RODRIGO Kang Primary Care Unavailable TRA MAHMOOD Consulting Unavailable SOLANO ., DR PAXTON Jarrett Admitting Unavailable SOLANO ., DR PAXTON Jarrett Attending Unavailable LUZ ., DR RODRIGO Kang Primary Care Unavailable KATHE .FRACISCO Consulting Unavailable NATTY ., DR RODRIGO Kang Primary Care Unavailable NGUYỄN ., MR OLIPMIA Consulting Unavailable RUSTY ., JG Admitting Unavailable RUSTY ., JG Attending Unavailable TRA ALDRIDGE Consulting Unavailable TRA MAHMOOD Admitting Unavailable TRA MAHMOOD Attending Unavailable LZU ., DR RODRIGO Kang Primary Care Unavailable TRA MAHMOOD Consulting Unavailable TRA MAHMOOD Admitting Unavailable TRA MAHMOOD Attending Unavailable LUZ ., DR RODRIGO Kang Primary Care Unavailable TRA MAHMOOD Consulting Unavailable LAKSHMIPATHY ., NARENDRANATH Admitting Sherly vailable LAKSHMIPATHY ., AMI Attending Sherly vailable LUZ ., DR RODRIGO Kang Primary Care Unavailable LAKSHMIPATHY ., NARENDRANATH Consulting Sherly vailable SOLANO ., DR PAXTON Jarrett Admitting Unavailable SOLANO ., DR PAXTON Jarrett Attending Unavailable LUZ ., DR RODRIGO Kang Primary Care Unavailable SOLANO ., DR PAXTON Jarrett Consulting Unavailable CALLIELORI Huerta Consulting Unavailable GUSTAVO, ELEN Admitting Unavailable GUSTAVO, [...] RODRIGO Kang Primary Care Unavailable LAKSHMIPATHY ., NARPAULAATH Consulting Sherly vailable HALKER ., KEESHA Consulting [...] Unavailable ARCHULETA ., FRACISCO Consulting Unavailable Rodrigo Brink Primary Care Physician RODRIGO LUZ Primary Care Unavailable NATTY, RODRIGO Primary Care Unavailable NATTY, RODRIGO Primary Care Unavailable NATTY, RODRIGO Primary Care Unavailable Natty MASON, Rodrigo Primary Care Provider Murali MASON, Rodrigo Primary Care Provider Unavailable Primary Care Provider UnavailBEAR Raya Attending Unavailable Rodrigo Brink MD Primary Care Provider [phone] RODRIGO BRINK Primary Care Unavailable SELF, SELF Referring Unavailable TRA MAHMOOD JR. Attending Unavaila RODRIGO Iqbal Primary [facility] Unavailable SELF, SELF Referring Unavailable TRA MAHMOOD JR. Attending Unavaila jay jay Hernandez MD, Stephy Waldrop Attending Unavailable David MASON, Stephy Waldrop Attending Unavailable Yusuf FINE Attending Unavailable Yusuf FINE Admitting Unavailable Yusuf FINE Attending Unavailable Rodrigo Brink Admitting Unavailable Rodrigo Brink Attending Unavailable Rodrigo Brink Attending Unavailable Rodrigo Brink Attending Unavailable Rodrigo Brink Attending Unavailable Rodrigo Brink Attending Unavailable Rodrigo Brink Attending Unavailable TRISTAN COURTNEY Attending Unavailenrike kang Allergies Allergy Classification Reported Allergen(s) Allergy Type Date of Onset Reaction(s) Facility adalimumab (1 source) adalimumab; Translations: [HUMIRA] Drug Allergy 8 [facility] Opioid Agonists (1 source) Morphine; Translations: [MORPHINE] Drug Allergy 8 [facility] secukinumab (1 source) secukinumab; Translations: [COSENTYX] Drug Allergy 8 [facility] Rep[facility] (20 sources) adalimumab; Translations: [adalimumab] Drug Allergy 9 rash [facility] Work Phone: (20 sources) Morphine; Translations: [morphine] Drug Allergy 1 Unknown (qualifier value) [facility] Work Phone: (20 sources) secukinumab; Translations: [secukinumab] Drug Allergy 9 rash [facility] Work Phone: (1 source) adalimumab Drug Allergy [facility] Rep[facility] (1 source) Morphine Drug Allergy [facility] (1 source) secukinumab Drug Allergy [facility] Medications Current Medications Medication Drug Class(es) Dates Sig (Normalized) Sig (Original) acetaminophen 325 mg / HYDROcodone bitartrate 5 mg oral tablet (15 sources) Opioid Agonist Start: 12-29-2022 take 1 tablet by mouth twice daily as needed HYDROcodone-aceta minophen ([place]) 5-325 MG tablet Take 1 tablet by mouth 2 (two) times a day as needed. 12/29/2022 Active End: 05-03-2018 take 1 tablet by mouth three times daily as needed hydroCODone-acetaminophen 5-325 MG Tab tablet hydrocodone 5 mg-acetaminophen 325 mg tablet Take 1 tablet 3 times a day by oral route as needed. 05/03/2018 Discontinued amitriptyline hydrochloride 25 mg oral tablet (18 sources) Tricyclic Antidepressant Start: 06-20-2020 take 2 tablets by mouth at bedtime amitriptyline 25 mg Tab See Instructions, TAKE 2 TABLETS BY MOUTH AT BEDTIME, # 60 tab(s), Refills(s) 5, Pharmacy: [facility]/pharmacy #[id number], 180, cm, 02/12/24 7:41:00 EST, Height/Length Dosing, 111.4, kg, 02/12/24 7:41:00 EST, Weight Dosing Start Date: 07/07/24 Status: Ordered Quantity: 60.0 Unit: tab(s) Repeat number: 6 Amitriptyline HC l Active amLODIPine 5 mg oral tablet (20 sources) Dihydropyridine Calcium Channel Colette Start: 11-17-2024 take 1 tablet by mouth once daily amLODIPine 5 mg Tab See Instructions, TAKE 1 TABLET BY MOUTH EVERY DAY, # 90 tab(s), Refills(s) 1, [id number], cm, 11/04/24 13:52:00 EDT, Height/Length Dosing, 122.7, kg, 11/04/24 13:52:00 EDT, Weight Dosing Start Date: 11/17/24 Status: Ordered Quantity: 90.0 Unit: tab(s) Repeat number: 2 Start: 09-20-2023 take 1 tablet by eloy th once daily amLODIPine 5 mg Tab 5 mg = 1 tab(s), Oral, Daily, # 90 tab(s), Refills(s) 1, [id number] 180.3, cm, 09/20/23 9:40:00 EDT, Height/Length Dosing, 113.4, kg, 09/20/23 9:40:00 EDT, Weight Dosing Start Date: 09/20/23 Status: Ordered Start: 07-26-2022 take 1 tablet by eloy th once daily amLODIPine 5 mg Tab 5 mg = 1 tab(s), Oral, Daily, # 90 tab(s), Refills(s) 3, [id number] Start Date: 07/26/22 Status: Ordered take 1 tablet by eloy th once daily amLODIPine 10 MG Tab tablet amlodipine 10 mg tablet Take 1 tablet every day by oral route. Active amLODIPine Benzoate (1 source) amLODIPine Benzoate Active baclofen 10 mg oral tablet (4 sources) gamma-Aminobutyr ic Acid-ergic Agonist Start: 08-03-19 take 1 tablet by mouth at bedtime baclofen (Lioresal) 10 MG tablet Take 10 mg by mouth at bedtime. 08/02/2022 Active Bisoprolol (1 source) beta-Adrenergic Colette Bisoprolol Fumarate Active bisoprolol fumarate 10 mg / hydroCHLOROthiazide 6.25 mg oral tablet (17 sources) Thiazide Diuretic, beta-Adrenergic Colette Start: 05-07-19 bisoprolol-hydroch lorothiazide 10 mg-6.25 mg Tab See Instructions, 90 tab(s), Refill(s) 1, TAKE 1 TABLET BY MOUTH EVERY DAY, [facility]/pharmacy #[id number], 180, cm, 02/12/24 7:41:00 EST, Height/Length Dosing, 111.4, kg, 02/12/24 7:41:00 EST, Weight Dosing Start Date: 05/07/24 Status: Ordered Quantity: 90.0 Unit: tab(s) Repeat number: 2 Start: 07-09-2020 take 1 tablet by eloy th once daily in the morning bisoprolol-hydrochlorothiazide 10-6.25 M G per tablet TAKE 1 TABLET BY MOUTH EVERY DAY IN THE MORNING 07/09/2020 Active take 1 tablet by eloy th in the morning bisoprolol-hydroCHLOROthiazide (Ziac) 10 -6.25 MG tablet Take 1 tablet by mouth in the morning. Active 24 hr buPROPion hydrochloride 300 mg extended release oral tablet (9 sources) Aminoketone Start: 05-13-2024 take 1 tablet by mouth once daily buPROPion 300 mg/24 hours ER Tab See Instructions, TAKE 1 TABLET BY MOUTH EVERY DAY, # 90 tab(s), Refills(s) 1, Pharmacy: [facility]/pharmacy #[id number], 180, cm, 02/12/24 7:41:00 EST, Height/Length Dosing, 111.4, kg, 02/12/24 7:41:00 EST, Weight Dosing Start Date: 05/13/24 Status: Ordered Quantity: 90.0 Unit: tab(s) Repeat number: 2 Start: 08-16-2023 take 1 tablet by eloy th every twenty-four hours buPROPion 300 mg/24 hours ER Tab 300 mg = 1 tab(s), Oral, q24hr, # 90 tab(s), Refills(s) 1, Pharmacy: [facility]/pharmacy #[id number], 180.3, cm, 08/16/23 13:16:00 EDT, Height/Length Dosing, 108.4, kg, 08/16/23 13:16:00 EDT, Weight Dosing Start Date: 08/16/23 Status: Ordered Start: 10-20-2022 take 1 tablet by eloy th every twenty-four hours buPROPion XL (Wellbutrin XL) 150 MG 24 hr tablet Take 150 mg by mouth. 10/20/2022 Active calcium carbonate 1250 mg / cholecalciferol 200 unt oral tablet (20 sources) Vitamin D Start: 12-23-2022 take 1 tablet by mouth in the morning, then take 1 tablet by mouth once at bedtime Calcium Carb-Cholecalciferol (Oyster Shell Calcium w/D) 500-5 MG-MCG tablet Take 1 tablet by mouth in the morning and 1 tablet before bedtime. 12/23/2022 Active Start: 08-26-2019 take 1 tablet by eloy th twice daily Oyster Shell Calcium w/D 500-5 MG-MCG tablet TAKE 1 TABLET BY MOUTH TWICE A DAY 60 tablet 5 02/16/2023 Active cetirizine hydrochloride 10 mg oral tablet (20 sources) Histamine-1 Receptor Antagonist Start: 11-24-2024 take 1 tablet by mouth once daily cetirizine 10 mg Tab See Instructions, TAKE 1 TABLET BY MOUTH EVERY DAY, # 90 tab(s), Refills(s) 0, Pharmacy: [facility]/pharmacy #[id number], 180, cm, 11/04/24 13:52:00 EDT, Height/Length Dosing, 122.7, kg, 11/04/24 13:52:00 EDT, Weight Dosing Start Date: 11/24/24 Status: Ordered Quantity: 90.0 Unit: tab(s) Repeat number: 1 Start: 04-15-2018 take 1 tablet by eloy th once daily cetirizine 10 MG Tab tablet Take 1 tablet by mouth daily. 5 04/15/2018 Active ZyrTEC Active cholecalciferol 0.25 mg oral capsule (20 sources) Vitamin D Start: 07-21-2024 take 1 capsule by mouth every week Cholecalciferol (Vitamin D3) 250 MCG (99483 UT) capsule Indications: Vitamin D deficiency Take 1 capsule by mouth once a week. 12 capsule 4 07/21/2024 Active Start: 04-21-2019 take 1 capsule by mo uth every week [facility] Vitamin D3 250 MCG (39753 UT) capsule capsule Indications: Vitamin D deficiency take 1 capsule by mouth one time per week 4 capsule 14 2023 Active Start: 09-03-2018 End: 09-03-2018 take 2 capsules by mouth once Cholecalciferol (MAXIMUM D3) 44306 units Cap Indications: Vitamin D deficiency 2 po one day a week 10 capsule 11 09/03/2018 Active Start: 04-17-2018 End: 09-03-2018 take 1 capsule by mouth once Cholecalciferol (MAXIMUM D3) 48477 units Cap Indications: Vitamin D deficiency 1 po one day a week 5 capsule 11 04/17/2018 09/03/2018 Discontinued clobetasol propionate 0.5 mg/ml topical cream (14 sources) Corticosteroid Start: 04-14-2024 clobetasol 0.0 5 % Cream Indications: Rash APPLY TO AFFECTED AREAS TWICE A DAY FOR 2 WEEKS 15 g 11 04/14/2024 Active Start: 04-11-2023 clobetasol 0.0 5 % Cream Indications: Rash APPLY TO AFFECTED AREAS TWICE A DAY FOR 2 WEEKS 15 g 11 04/11/2023 Active Start: 01-04-2023 clobetasol (Te movate) 0.05 % cream Indications: Psoriasis vulgaris (CMS/HCC) Twice daily for flares 60 g 11 01/04/2023 Active Start: 07-03-2022 clobetasol 0.0 5 % [...] Active cyclobenzaprine hydrochloride 10 mg oral tablet (8 sources) Muscle Relaxant Start: 06-16-19 23 cyclobenzaprine (Flexeril) 10 MG tablet Take 10 mg by mouth. 06/15/2022 Active diclofenac sodium 75 mg extended release oral tablet (6 sources) Nonsteroidal Anti-inflammatory Drug Start: 01-18-20 24 take 75 mg by mouth twice daily diclofenac 75 mg, Oral, BID, Refills(s) 0 Start Date: 01/18/24 Status: Ordered Repeat number: 1 Start: 12-27-2022 take 1 tablet by eloy th twice daily as needed diclofenac (Voltaren) 75 MG EC tablet Take 75 mg by mouth 2 (two) times a day as needed. 12/27/2022 Active Diclofenac Activ e fluticasone propionate 0.05 mg/actuat metered dose nasal spray (20 sources) Corticosteroid Start: 04-03-2024 fluticasone Na corina 0.05 mg/inh [place] See Instructions, 16 mL, Refill(s) 0, SPRAY 1 SPRAY INTO EACH NOSTRIL EVERY DAY, [id number], 180, cm, 02/12/24 7:41:00 EST, Height/Length Dosing, 111.4, kg, 02/12/24 7:41:00 EST, Weight Dosing Start Date: 04/03/24 Status: Ordered Quantity: 16.0 Unit: mL Repeat number: 1 Start: 07-02-2022 fluticasone Na corina 0.05 mg/inh [place] See Instructions, 16 mL, Refill(s) 0, SPRAY 2 SPRAYS INTO EACH NOSTRIL DAILY, [id number] Start Date: 07/02/22 Status: Ordered Start: 04-15-2018 End: 08-19-2024 take 2 spray(s) nasal route once daily fluticasone 50 MCG/ACT Suspension nasal spray USE 2 SPRAYS IN EACH NOSTRIL DAILY 5 04/15/2018 08/19/2024 Discontinued (Medication Reconciliation (suppress cancel msg)) Fluticasone Furo ate Active folic acid 1 mg oral tablet (20 sources) Start: 08-04-2024 take 1 tablet by mouth once daily [...] Plaque psoriasis , Hyperchromic anemia , Methotrexate, long term care pharmacist, current use , Long-term current use of high risk medication other than anticoagulant , History of psoriatic arthritis , History of kidney stones , Abnormal renal function test , Vitamin D deficiency , Psoriatic spondylitis , 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 TAKE 1 TABLET BY MOUTH EVERY DAY 90 tablet 3 08/04/2024 Active Start: 06-12-2023 End: 07-31-2023 take 1 tablet by mouth once daily [...] Plaque psoriasis , Hyperchromic anemia , Methotrexate, long term care pharmacist, current [...] DAY 30 tablet 10 08/29/2022 Active Start: 03-29-2018 take 1 tablet by eloy th once daily folic acid 1 MG tablet TAKE 1 TABLET BY MOUTH EVERY DAY 30 tablet 10 09/26/2021 Active Folic Acid Activ e furosemide 40 mg oral tablet (1 source) Loop Diuretic Start: 02-12-2024 take 1 tablet by mouth once daily Lasix 40 mg Tab 40 mg = 1 tab(s), Oral, Daily, # 5 tab(s), Refills(s) 0, Pharmacy: [facility]/pharmacy #[id number], 180, cm, 02/12/24 7:41:00 EST, Height/Length Dosing, 111.4, kg, 02/12/24 7:41:00 EST, Weight Dosing Start Date: 02/12/24 Status: Ordered Quantity: 5.0 Unit: tab(s) Repeat number: 1 gabapentin 300 mg oral capsule (20 sources) Anti-epileptic Agent Start: 04-30-2023 gabapentin 300 mg Cap See Instructions, Take 2 orally in the am, one in the afternoon and one at bedtime, # 60 cap(s), Refills(s) 2, Pharmacy: [id number], 180.3, cm, 03/05/23 14:04:00 EST, Height/Length Dosing, 102, kg, 03/05/23 14:04:00 EST, Weight Dosing Start Date: 04/30/23 Status: Ordered Quantity: 60.0 Unit: cap(s) Repeat number: 1 Start: 10-30-2022 take 1 capsule by mo uth twice daily gabapentin 300 mg Cap See Instructions, TAKE 1 CAPSULE BY MOUTH TWICE A DAY, # 60 cap(s), Refills(s) 2, Pharmacy: [id number], 180.3, cm, 03/05/23 14:04:00 EST, Height/Length Dosing, 102, kg, 03/05/23 14:04:00 EST, Weight Dosing Start Date: 04/30/23 Status: Ordered Start: 03-18-2018 take 1 capsule by mo uth once daily in the morning gabapentin 300 MG Cap capsule Take 1 capsule by mouth daily every morning. 0 03/18/2018 Active Gabapentin Activ e halobetasol propionate 0.5 mg/ml topical cream (20 sources) Corticosteroid Start: 03-04-2024 halobetasol (U ltraVATE) 0.05 % cream Indications: Psoriasis vulgaris (CMS/HCC) APPLY TO AFFECTED AREAS TWICE A DAY NEEDED FOR PSORIASIS FLARE *AVOID FACE/NECK/GROIN* 60 g 11 03/04/2024 Active Start: 03-04-2024 halobetasol (U ltraVATE) 0.05 % cream Indications: Psoriasis vulgaris (CMS/HCC) APPLY TO AFFECTED AREAS TWICE A DAY NEEDED FOR PSORIASIS FLARE *AVOID FACE/NECK/GROIN* 60 g 11 03/04/2024 Active Start: 03-03-2024 End: 03-04-2024 halobetasol (UltraVATE) 0.05 % cream Indications: Psoriasis vulgaris (CMS/HCC) APPLY TO AFFECTED AREAS TWICE A DAY NEEDED FOR PSORIASIS FLARE *AVOID FACE/NECK/GROIN* 60 g 11 03/03/2024 03/04/2024 Discontinued Start: 07-29-2019 halobetasol 0. 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, [facility], current use , Long-term current use of high risk medication other than anticoagulant , 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 systemic steroids , 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 (NSAID) [...] high risk medication other than anticoagulant , 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 , 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 non-steroidal anti-inflammatories (NSAID) , [...] Active hyoscyamine sulfate 0.125 mg oral tablet (8 sources) Start: 2020 take 1 tablet by mouth every six hours as needed for pain hyoscyamine 0.125 MG tablet TAKE 1 TABLET BY MOUTH EVERY 6 HOURS NEEDED FOR ABDOMINAL PAIN 06/13/2020 Active 1 ml ixekizumab 80 mg/ml auto-injector (16 sources) Interleukin-17A Antagonist Start: 2023 Taltz 80 MG/ML injection Indications: Psoriasis vulgaris (CMS/HCC) INJECT 1 ML (80 MG) UNDER THE SKIN EVERY 28 DAYS 1 mL 12/26/2023 Active Start: 11-17-2021 Taltz Autoinje ctor 80 mg/mL subcutaneous solution mg, SubCutaneous, q4wk, Refills(s) 0 Start Date: 06/15/22 Status: Ordered Repeat number: 1 José Miguel Active Meclizine (1 source) Antiemetic Meclizine HCl Ac tive methotrexate 2.5 mg oral tablet (20 sources) Folate Analog Metabolic Inhibitor Start: 01-02-20 End: 02-19-20 24 take 7 tablets by mouth once methotrexate 2.5 MG tablet Indications: Psoriatic arthritis , Primary [...] , DDD (degenerative disc disease), cervical , Macrocytic anemia , Hyperchromic anemia , Psoriasis , Plaque psoriasis , Methotrexate, long term care pharmacist, current use , Long-term current use of high risk medication other than anticoagulant , History of psoriatic arthritis , History of kidney stones , Abnormal renal function test , Vitamin D deficiency , Psoriatic spondylitis , 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 7 po one day a week 28 tablet 5 02/19/2024 Active Start: 06-04-2023 take 7 tablets by mo uth every [...] WEEK 28 tablet 7 01/18/2021 Active Start: 09-03-2018 take 7 tablets by mo uth every week methotrexate 2.5 MG tablet TAKE 7 TABLETS BY MOUTH ONE TIME PER WEEK 28 tablet 7 06/21/2020 Active Start: 05-03-2018 End: 09-03-2018 take 6 tablets by mouth once methotrexate 2.5 MG Tab Indications: Psoriatic arthritis , 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 03/10/2022 Active Oyster Shell Calcium with Vitamin D 500 mg-200 intl units oral tablet (2 sources) Start: 11-17-2024 Oyster Shell Calcium with Vitamin D 500 mg-200 intl units oral tablet See Instructions, 180 tab(s), Refill(s) 1, TAKE 1 TABLET BY MOUTH TWICE A DAY, [facility]/pharmacy #[id number], 180, cm, 11/04/24 13:52:00 EDT, Height/Length Dosing, 122.7, kg, 11/04/24 13:52:00 EDT, Weight Dosing Start Date: 11/17/24 Status: Ordered Quantity: 180.0 Unit: tab(s) Repeat number: 2 Start: 09-20-2023 take 1 tablet by eloy th twice daily Oyster Shell Calcium with Vitamin D 500 mg-200 intl units oral tablet 1 tab(s), Oral, BID, 90 tab(s), Refill(s) 1, [facility]/pharmacy #[id number], 180.3, cm, 09/20/23 9:40:00 EDT, Height/Length Dosing, 113.4, kg, 09/20/23 9:40:00 EDT, Weight Dosing Start Date: 09/20/23 Status: Ordered predniSONE 1 mg oral tablet (20 sources) Start: 01-07-2019 End: 05-06-2019 take 4 tablets by mouth once in the morning predniSONE 1 MG Tab tablet Indications: Psoriatic arthritis , Psoriatic spondylitis , Psoriasis , Plaque psoriasis , Anemia, unspecified type , Methotrexate, chcf, current use , Long-term current use of high risk medication other than anticoagulant , 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 , 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 (NSAID) [...] spondylitis , History of psoriatic arthritis , 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 (NSAID) , 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 , Long-term current use of high risk medication other than anticoagulant , Methotrexate, chcf, current use , Noncompliance , Patient non [...] , Psoriasis , Anemia, unspecified type , 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 (NSAID) , 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 systemic steroids , Methotrexate, chcf, current use , Long-term current use of [...] type , History of psoriatic arthritis , 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 (NSAID) , 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 , Methotrexate, chcf, current use , Long-term current use of [...] 05/03/2018 Discontinued sildenafil 25 mg oral tablet (8 sources) Phosphodiesterase 5 Inhibitor Start: 06-15-2022 sildenafil (Viagra) 25 MG tablet Take 25 mg by mouth. 06/15/2022 Active tamsulosin hydrochloride 0.4 mg oral capsule (2 sources) alpha-Adrenergic Colette Start: 10-06-2024 take 1 capsule by mouth twice daily tamsulosin 0.4 mg Cap 0.4 mg = 1 cap(s), Oral, BID, # 60 cap(s), Refills(s) 11, Pharmacy: [facility]/pharmacy #[id number], 180, cm, 02/12/24 7:41:00 EST, Height/Length Dosing, 111.4, kg, 02/12/24 7:41:00 EST, Weight Dosing Start Date: 10/06/24 Status: Ordered Quantity: 60.0 Unit: cap(s) Repeat number: 12 Start: 10-01-2023 take 1 capsule by [facility] twice daily tamsulosin 0.4 mg Cap 0.4 mg = 1 cap(s), Oral, BID, # 60 cap(s), Refills(s) 11, Pharmacy: [facility]/pharmacy #[id number], 180, cm, 10/01/23 13:04:00 EDT, Height/Length Dosing, 104.7, kg, 10/01/23 13:04:00 EDT, Weight Dosing Start Date: 10/01/23 Status: Ordered tiZANidine 4 mg oral tablet (4 sources) Central alpha-2 Adrenergic Agonist Start: 12-25-2022 take 1 tablet by mouth twice daily tiZANidine (Zanaflex) 4 MG tablet TAKE 1/2 - 1 TABLET BY MOUTH TWICE A DAY 12/25/2022 Active triamcinolone acetonide 0.001 mg/mg topical ointment (20 sources) Corticosteroid Start: 08-15-2024 triamcinolone 0.1 % Cream cream Indications: Psoriatic arthritis , Psoriatic spondylitis , Psoriasis , Plaque psoriasis , Anemia, unspecified type , Methotrexate, chcf, current use , Long-term current use of high risk medication other than anticoagulant , 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 systemic steroids , 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 (NSAID) [...] TWICE A DAY NEEDED 45 g 3 08/15/2024 Active Start: 01-02-2024 triamcinolone 0.1 % Cream cream Indications: Psoriatic arthritis , Psoriatic spondylitis , Psoriasis , Plaque psoriasis , Anemia, unspecified type , Methotrexate, long term care pharmacist, current use , Long-term current use of high risk medication other than anticoagulant , 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 , 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 non-steroidal anti-inflammatories (NSAID) , [...] TWICE A DAY NEEDED 45 g 3 01/02/2024 Active Start: 09-26-2023 End: 08-19-2024 triamcinolone 0.1 % Ointment ointment Indications: Psoriatic arthritis , Primary osteoarthritis of [...] , DDD (degenerative disc disease), cervical , Psoriasis , Plaque psoriasis , Long-term current use of high risk medication other than anticoagulant , History of psoriatic arthritis , Vitamin D deficiency , Psoriatic spondylitis , Anemia, unspecified type , Methotrexate, long term care pharmacist, current use , 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 , 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 (NSAID) APPLY TO AFFECTED AREA TWICE A DAY NEEDED 80 g 11 08/19/2024 Active Start: 07-09-2023 triamcinolone 0.1 % Ointment ointment Indications: Psoriatic arthritis , Psoriatic spondylitis , Psoriasis , Plaque psoriasis , Anemia, unspecified type , Methotrexate, long term care pharmacist, current use , Long-term current use of high risk medication other than anticoagulant , 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 , 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 (NSAID) [...] psoriasis , Anemia, unspecified type , Methotrexate, chcf, current use , Long-term current use of high risk medication other than anticoagulant , 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 systemic steroids , 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 (NSAID) [...] psoriasis , Anemia, unspecified type , Methotrexate, chcf, current use , Long-term current use of high risk medication other than anticoagulant , 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 systemic steroids , 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 non-steroidal anti-inflammatories (NSAID) , [...] psoriasis , Anemia, unspecified type , Methotrexate, chcf, current use , Long-term current use of high risk medication other than anticoagulant , 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 systemic steroids , 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 (NSAID) [...] high risk medication other than anticoagulant , 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 systemic steroids , 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 non-steroidal anti-inflammatories (NSAID) , [...] psoriasis , Anemia, unspecified type , Methotrexate, chcf, current use , Long-term current use of high risk medication other than anticoagulant , 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 , 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 non-steroidal anti-inflammatories (NSAID) , [...] psoriasis , Anemia, unspecified type , Methotrexate, chcf, current use , Long-term current use of high risk medication other than anticoagulant , 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 systemic steroids , 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 non-steroidal anti-inflammatories (NSAID) , [...] high risk medication other than anticoagulant , 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 systemic steroids , 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 non-steroidal anti-inflammatories (NSAID) , [...] high risk medication other than anticoagulant , 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 , 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 (NSAID) [...] psoriasis , Anemia, unspecified type , Methotrexate, chcf, current use , Long-term current use of high risk medication other than anticoagulant , 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 , 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 (NSAID) [...] psoriasis , Anemia, unspecified type , Methotrexate, chcf, current use , Long-term current use of high risk medication other than anticoagulant , 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 systemic steroids , 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 (NSAID) [...] psoriasis , Anemia, unspecified type , Methotrexate, chcf, current use , Long-term current use of high risk medication other than anticoagulant , 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 , 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 non-steroidal anti-inflammatories (NSAID) , [...] psoriasis , Anemia, unspecified type , Methotrexate, chcf, current use , Long-term current use of high risk medication other than anticoagulant , 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 systemic steroids , 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 (NSAID) [...] high risk medication other than anticoagulant , 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 , 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 non-steroidal anti-inflammatories (NSAID) , [...] bid PRN 1 Tube 11 01/08/2019 Active Triamcinolone & Bupiv & Lido (1 [...] PER WEEK Start Date: 09/20/23 Status: Ordered Dosoquin 5500-200 Unit-McG Po Tabs (6 sources) [...] q day 30 tablet 11 04/01/2018 Active ibuprofen 800 mg oral tablet (20 sources) Nonsteroidal Anti-inflammatory Drug Start: 03-15-2018 End: 09-09-2019 take 1 tablet by mouth every eight hours ibuprofen 800 MG Tab Take 800 mg by mouth every 8 hours. 1 03/15/2018 09/09/2019 Discontinued (Medication Reconciliation (suppress cancel msg)) ipratropium bromide 0.021 mg/actuat metered dose nasal spray (10 sources) Anticholinergic Start: 10-17-2023 take 2 spray(s) nasal route three times daily Start: 08-20-2023 Start: 07-05-2022 Start: 07-05-2022 Ipratropium Brom gabriele Active memantine hydrochloride 5 mg oral tablet (1 source) N-ktamci-T-aspartate Receptor Antagonist Start: 04-06-2018 End: 05-03-2018 memantine 5 MG Tab tablet oxyCODONE hydrochloride 5 mg oral tablet (1 source) Opioid Agonist Start: 04-06-2018 End: 05-03-2018 oxyCODONE 5 MG Tab tablet sulindac 200 mg oral tablet (12 sources) Nonsteroidal Anti-inflammatory Drug Start: 07-25-2022 End: 01-23-2023 take 1 mg by mouth every other day as needed sulindac 200 MG tablet Indications: Psoriatic arthritis , 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 , Psoriatic spondylitis , Macrocytic anemia , Plaque psoriasis , Psoriasis , SAPHO syndrome , History of kidney stones , History of psoriatic arthritis , 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 (NSAID) , Long-term current use of high risk medication other than anticoagulant , Methotrexate, long term care pharmacist, current use , Abnormal renal function test [...] , Psoriasis , Anemia, unspecified type , 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 non-steroidal anti-inflammatories (NSAID) , 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 , Methotrexate, chcf, current use , Long-term current use of [...] , Psoriasis , Anemia, unspecified type , 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 (NSAID) , 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 systemic steroids , Methotrexate, [...] , Psoriasis , Anemia, unspecified type , 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 non-steroidal anti-inflammatories (NSAID) , 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 systemic steroids , Methotrexate, [...] , Psoriasis , Anemia, unspecified type , 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 non-steroidal anti-inflammatories (NSAID) , 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 , Methotrexate, chcf, current use , Long-term current use of [...] type , History of psoriatic arthritis , 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 (NSAID) , 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 systemic steroids , Methotrexate, chcf, current use , Long-term current use of [...] Problem Date Documented Date Episodic/Chronic Anxiety disorders (5 sources) Anxiety 06-15-2022 Chronic Calculus of urinary tract (20 sources) History of calculus of kidney; Translations: [Personal history of urinary calculi] Onset: 2 Episodic Chronic kidney disease (3 sources) Chronic kidney disease stage 3A 11-20-2022 Chronic Coronary atherosclerosis and other heart disease (5 sources) Coronary atherosclerosis 06-15-2022 Chronic Deficiency and other anemia (20 sources) Anemia; Translations: [Anemia, unspecified] Onset: 9 Resolved: 5 05-03-2018 Episodic Deficiency and other anemia (3 sources) Anemia, unspecified; Translations: [ANEMIA UNSPECIFIED] Onset: 2 Episodic Essential hypertension (20 sources) Hypertensive disorder; Translations: [Essential hypertension] Onset: 7 03-29-2018 Chronic Hyperplasia of prostate (2 sources) Benign prostatic hypertrophy with outflow obstruction; Translations: [Benign prostatic hyperplasia with lower urinary tract symptoms] Onset: 5 Chronic Infective arthritis and osteomyelitis (except that [...] Onset: 9 05-03-2018 Other aftercare (20 sources) 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 methotrexate user; Translations: [Other long term care pharmacist (current) drug therapy] Onset: 8 Resolved: 5 03-29-2018 Episodic Other aftercare (14 sources) Drug therapy finding; Translations: [Other long term care pharmacist (current) drug therapy] Onset: 8 Episodic Other aftercare (9 sources) Long-term current use of systemic steroid; Translations: [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 (current) use of systemic steroids] Onset: 8 Resolved: 0 Episodic Other aftercare (3 sources) Other [facility] (current) drug therapy; Translations: [OTH BLUE LEATHER SORTER CURRENT DRUG THERAPY] Onset: 8 Episodic Other aftercare (3 sources) 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 (current) use of non-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-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); Translations: [LONG-TERM USE NSAID] Onset: 3 Episodic Other aftercare (3 sources) 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 (current) use of systemic steroids; Translations: [LONG-TERM USE OF SYSTEMIC STEROIDS] Onset: 2 Episodic Other aftercare (3 sources) 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-inflammatory drug; Translations: [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 (current) use of non-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-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)] Onset: 8 Resolved: 3 01-23-2023 Episodic Other bone disease and musculoskeletal deformities [...] Onset: 3 Episodic Other connective tissue disease (1 source) Synovitis and tenosynovitis, unspecified; Translations: [SYNOVITIS AND TENOSYNOVITIS UNS] Onset: 3 Episodic Other connective tissue disease (5 sources) Other muscle spasm; Translations: [OTHER MUSCLE SPASM] Onset: 2 Episodic Other connective tissue disease (3 sources) Impingement syndrome of left shoulder; Translations: [IMPINGEMENT SYNDROME LEFT SHOULDER] Onset: 9 Episodic Other connective tissue disease (20 sources) Bilateral impingement syndrome of shoulders; Translations: [Impingement syndrome of both shoulders] Onset: 9 05-03-2018 Other hematologic conditions (4 sources) Macrocytosis 11-06-2022 Chronic Other inflammatory condition [...] Translations: [PSORIASIS VULGARIS] Onset: 8 Chronic Other inflammatory condition of skin (2 sources) Psoriasis vulgaris; Translations: [Psoriasis vulgaris] 03-04-2024 Chronic Other injuries and conditions due to external causes (4 sources) Contusion 11-15-2022 Episodic Other nervous system disorders (7 sources) Chronic pain syndrome; Translations: [Chronic pain syndrome] Onset: 7 03-29-2018 Chronic Other nervous system disorders (1 source) Other chronic pain; Translations: [OTHER CHRONIC PAIN] Onset: 2 Chronic Other nutritional; endocrine; and metabolic disorders (20 sources) Morbid obesity; Translations: [Obesity, morbid, BMI 40.0-49.9] Onset: 9 05-03-2018 Chronic Other nutritional; endocrine; and metabolic disorders (7 sources) Body mass index 40+ - severely obese; Translations: [Morbid (severe) obesity due to excess calories] Onset: 9 05-03-2018 Chronic Other nutritional; endocrine; and metabolic disorders (5 sources) Obesity 06-15-2022 Chronic Other screening for suspected conditions (not mental disorders or infectious disease) (20 sources) Renal function tests abnormal; Translations: [Abnormal [...] eustachian tube 09-20-2023 Episodic Residual codes; unclassified (5 sources) Sleep disorder 06-15-2022 Episodic Residual codes; unclassified (1 source) Edema 02-12-2024 Episodic Screening and history of mental health [...] [Neck pain] Onset: 8 03-29-2018 Episodic Syncope (3 sources) Syncope 05-17-2023 Episodic Unclassified (20 sources) Drug therapy finding; Translations: [Long-term current use of high risk medication other than anticoagulant] Onset: 8 03-29-2018 Unclassified (20 sources) Patient encounter status; Translations: [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 non-steroidal anti-inflammatories (NSAID)] Onset: [...] PAIN, UNSPECIFIED] Onset: 3 Unclassified (1 source) BLUE LEATHER SORTER USE ANTIMETABOLITE AGENT; Translations: [BLUE LEATHER SORTER USE ANTIMETABOLITE AGENT] Onset: 3 Unclassified (1 source) CONTACT W/AND (SUSP) EXPOS COVID-19; Translations: [CONTACT W/AND (SUSP) EXPOS COVID-19] Onset: 2 Unclassified (1 source) Unspecified synovitis and tenosynovitis, unspecified site; Translations: [Unspecified synovitis and tenosynovitis, unspecified site] Onset: 8 Unclassified (1 source) 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 (current) use of antimetabolite agent; Translations: [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 (current) use of antimetabolite agent] Onset: 5 Unclassified (1 source) Non-smoker 02-12-2024 Viral infection (3 sources) Disease caused by 2019-nCoV 03-05-2023 Past or Other Problems Problem Classification Problem Date Documented Date Episodic/Chronic Abdominal pain (4 sources) Unspecified abdominal pain; Translations: [UNSPECIFIED ABDOMINAL PAIN] Onset: 2 Episodic Chronic obstructive pulmonary disease and bronchiectasis (5 sources) Chronic obstructive pulmonary disease and bronchiectasis 06-15-2022 Deficiency and other anemia (10 sources) Macrocytic anemia; Translations: [Nutritional anemia, unspecified] Onset: 9 Resolved: 5 07-12-2021 Episodic Deficiency and other anemia (3 sources) Other specified anemias; Translations: [OTHER SPECIFIED ANEMIAS] Onset: 2 Episodic Deficiency and other anemia (2 sources) Nutritional anemia, unspecified; Translations: [Nutritional anemia, unspecified] Onset: 4 Episodic Fever of unknown origin (4 sources) Fever, unspecified; Translations: [FEVER UNSPECIFIED] Onset: 2 Episodic Other aftercare (8 sources) Patient encounter status; Translations: [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 (current) use of non-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-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)] Onset: 8 Resolved: 3 Episodic Other aftercare (7 sources) Long-term current use of immunosuppressive drug; Translations: [Other [facility] (current) drug therapy] Onset: 8 Resolved: 8 03-29-2018 Episodic Other bone disease and musculoskeletal deformities (7 sources) Disorder of skeletal system; Translations: [Disorder [...] 8 03-29-2018 Episodic Other non-traumatic joint disorders (7 sources) Pain in right knee; Translations: [Pain in joint, lower leg] Onset: 8 03-29-2018 Episodic Other non-traumatic joint disorders (6 sources) Bilateral chronic pain of upper limbs; Translations: [Pain in right shoulder] Onset: 8 03-29-2018 Episodic Other skin disorders (1 source) Nail dystrophy; Translations: [NAIL DYSTROPHY] Onset: 2 Episodic Residual codes; unclassified (20 sources) Noncompliance with treatment; Translations: [Patient's noncompliance with other medical treatment and regimen] Onset: 9 09-03-2018 Episodic Residual codes; unclassified (7 sources) Patient noncompliance - general; Translations: [Patient's noncompliance with other medical treatment and regimen] Onset: 9 09-03-2018 Episodic Unclassified (1 source) Psoriatic arthritis Unclassified (20 sources) Long-term current use of immunosuppressive drug; Translations: [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 immunosuppressive drug] Onset: 8 Resolved: 8 03-29-2018 Unclassified (1 source) Psoriatic spondylitis Unclassified (20 sources) Long-term current use of systemic steroid; Translations: [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 systemic steroids] Onset: 8 Resolved: 0 03-29-2018 Unclassified (1 source) 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 Unclassified (1 source) LOW BACK PAIN, UNSPECIFIED; Translations: [LOW BACK PAIN, UNSPECIFIED] Onset: 3 Unclassified (1 source) Unspecified synovitis and tenosynovitis, unspecified site; Translations: [Unspecified synovitis and tenosynovitis, unspecified site] Onset: 5 Unclassified (1 source) 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 (current) use of antimetabolite agent; Translations: [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 (current) use of antimetabolite agent] Onset: 5 Results Test Name Value Interpretation Reference Range Facility Ambulatory Visit Summaryon 0 12-08-2024 Ambulatory Visit Summary Ambulatory Visit Summary GLENDA BUCKLEY :1965 Visit Date:12/08/2024 Ambulatory Visit Instructions Your Diagnosis BPH with urinary obstruction Kidney stones Screening PSA (prostate specific antigen) Tests Performed XR Abdomen 1 View -- Results Pending -- Please visit your patient portal for your results or contact your primary care physician. Your Care Team Attending Physician - BABATUNDE MASON, Yusuf Cortés Primary Care Physician - Murali MASON, Rodrigo Chiu This Is Your Medications List tamsulosin (tamsulosin 0.4 mg Cap) Contact prescribing physician if questions or concerns amitriptyline (amitriptyline 25 mg Tab) amlodipine (amLODIPine 5 mg Tab) bisoprolol-hydrochl orothiazide (bisoprolol-hydroch lorothiazide 10 mg-6.25 mg Tab) buPROPion (buPROPion 300 mg/24 hours ER Tab) calcium-vitamin D ([place] Calcium with Vitamin D 500 mg-200 intl units oral tablet) cetirizine (cetirizine 10 mg Tab) diclofenac fluticasone nasal (fluticasone Nasal 0.05 mg/inh [place]) furosemide (Lasix 40 mg Tab) gabapentin (gabapentin 300 mg Cap) ipratropium nasal (ipratropium Nasal 0.03% [place]) ixekizumab (Taltz Autoinjector 80 mg/mL subcutaneous solution) Procedures Performed Gastric sleeve (09/06/2003), Appendectomy, CABG (Coronary artery bypass grafting) planned, Inguinal hernia. Discharge Vitals Heart Rate (Peripheral) 62 Respiratory Rate 17 Blood Pressure 127/78 Height 180 cm Height 71 in Weight 127.1 kg Weight 280.207 lb BMI 39.23 What to do next You Need to Schedule the Following Appointments Follow Up with BABATUNDE MASON, GENO Catherine When: Where: [address] [place] [id number] You Need to Complete the Following PSA Screen, Total, Blood, Routine collect, 12/08/24, Order for future visit, Lab Collect, Screening PSA (prostate specific antigen), Print Label By Order Location Medications What How Much When Instructions Unchanged tamsulosin (tamsulosin 0.4 mg Cap) 1 Capsules By Mouth 2 times a day Unchanged amitriptyline (amitriptyline 25 mg Tab) See instructions TAKE 2 TABLETS BY MOUTH AT BEDTIME Contact prescribing physician if questions or concerns Unchanged amlodipine (amLODIPine 5 mg Tab) See instructions TAKE 1 TABLET BY MOUTH EVERY DAY Contact prescribing physician if questions or concerns Unchanged bisoprolol-hydrochl orothiazide (bisoprolol-hydroch lorothiazide 10 mg-6.25 mg Tab) See instructions TAKE 1 TABLET [...] prescribing physician if questions or concerns Unchanged diclofenac 75 Milligram By Mouth 2 times a day Contact prescribing physician if questions or concerns Unchanged fluticasone nasal (fluticasone Nasal 0.05 mg/ inh [place]) See instructions SPRAY 1 SPRAY INTO EACH NOSTRIL EVERY DAY Contact prescribing physician if questions or concerns Unchanged furosemide (Lasix 40 mg Tab) 1 Tablets By Mouth Every day Contact prescribing physician if questions or concerns Unchanged gabapentin (gabapentin 300 mg Cap) See instructions Take 2 orally in the am, one in the afternoon and one at bedtime Contact prescribing physician if questions or concerns Unchanged ipratropium nasal (ipratropium Nasal 0.03% [place]) See instructions USE 2 SPRAYS IN EACH NOSTRIL 3 TIMES DAILY Contact prescribing physician if questions or concerns Unchanged ixekizumab (Taltz Autoinjector 80 mg/ mL subcutaneous solution) Subcutaneous Every 4 weeks Contact prescribing physician if questions or concerns Allergies morphine (Unknown) Problems Ongoing - Any problem that you are currently receiving treatment for. Anemia Anxiety Atherosclerotic heart disease of [place] coronary artery with angina pectoris BPH with urinary obstruction Contusion COVID-19 Edema Essential hypertension Fatigue Kidney stones Macrocytosis Nonsmoker Obesity due to excess calories Osteoarthritis Psoriasis arthropathica Screening PSA (prostate specific antigen) [...] experience with us by completing your survey. (more content not included)... Normal [facility] Ambulatory Visit Summary Ambulatory Visit Summary GLENDA BUCKLEY :1965 Visit Date:12/08/2024 Ambulatory Visit Instructions Your Diagnosis BPH with urinary obstruction Kidney stones Screening PSA (prostate specific antigen) Tests Performed XR Abdomen 1 View -- Results Pending -- Please visit your patient portal for your results or contact your primary care physician. Your Care Team Attending Physician - BABATUNDE MASON, Yusuf Cortés Primary Care Physician - Rodrigo Brink MD. This Is Your Medications List tamsulosin (tamsulosin 0.4 mg Cap) Contact prescribing physician if questions or concerns amitriptyline (amitriptyline 25 mg Tab) amlodipine (amLODIPine 5 mg Tab) bisoprolol-hydrochl orothiazide (bisoprolol-hydroch lorothiazide 10 mg-6.25 mg Tab) buPROPion (buPROPion 300 mg/24 hours ER Tab) calcium-vitamin D ([place] Calcium with Vitamin D 500 mg-200 intl units oral tablet) cetirizine (cetirizine 10 mg Tab) diclofenac fluticasone nasal (fluticasone Nasal 0.05 mg/inh [place]) furosemide (Lasix 40 mg Tab) gabapentin (gabapentin 300 mg Cap) ipratropium nasal (ipratropium Nasal 0.03% [place]) ixekizumab (Taltz Autoinjector 80 mg/mL subcutaneous solution) Procedures Performed Gastric sleeve (09/06/2003), Appendectomy, CABG (Coronary artery bypass grafting) planned, Inguinal hernia. Discharge Vitals Heart Rate (Peripheral) 62 Respiratory Rate 17 Blood Pressure 127/78 Height 180 cm Height 71 in Weight 127.1 kg Weight 280.207 lb BMI 39.23 What to do next You Need to Schedule the Following Appointments Follow Up with BABATUNDE MASON, Yusuf Cortés, URL When: Where: [facility] [place] [address] You Need to Complete the Following PSA Screen, Total, Blood, Routine collect, 12/08/24, Order for future visit, Lab Collect, Screening PSA (prostate specific antigen), Print Label By Order Location Medications What How Much When Instructions Unchanged tamsulosin (tamsulosin 0.4 mg Cap) 1 Capsules By Mouth 2 times a day Unchanged amitriptyline (amitriptyline 25 mg Tab) See instructions TAKE 2 TABLETS BY MOUTH AT BEDTIME Contact prescribing physician if questions or concerns Unchanged amlodipine (amLODIPine 5 mg Tab) See instructions TAKE 1 TABLET BY MOUTH EVERY DAY Contact prescribing physician if questions or concerns Unchanged bisoprolol-hydrochl orothiazide (bisoprolol-hydroch lorothiazide 10 mg-6.25 mg Tab) See instructions TAKE 1 TABLET [...] prescribing physician if questions or concerns Unchanged diclofenac 75 Milligram By Mouth 2 times a day Contact prescribing physician if questions or concerns Unchanged fluticasone nasal (fluticasone Nasal 0.05 mg/ inh [place]) See instructions SPRAY 1 SPRAY INTO EACH NOSTRIL EVERY DAY Contact prescribing physician if questions or concerns Unchanged furosemide (Lasix 40 mg Tab) 1 Tablets By Mouth Every day Contact prescribing physician if questions or concerns Unchanged gabapentin (gabapentin 300 mg Cap) See instructions Take 2 orally in the am, one in the afternoon and one at bedtime Contact prescribing physician if questions or concerns Unchanged ipratropium nasal (ipratropium Nasal 0.03% [place]) See instructions USE 2 SPRAYS IN EACH NOSTRIL 3 TIMES DAILY Contact prescribing physician if questions or concerns Unchanged ixekizumab (Taltz Autoinjector 80 mg/ mL subcutaneous solution) Subcutaneous Every 4 weeks Contact prescribing physician if questions or concerns Allergies morphine (Unknown) Problems Ongoing - Any problem that you are currently receiving treatment for. Anemia Anxiety Atherosclerotic heart disease of [place] coronary artery with angina pectoris BPH with urinary obstruction Contusion COVID-19 Edema Essential hypertension Fatigue Kidney stones Macrocytosis Nonsmoker Obesity due to excess calories Osteoarthritis Psoriasis arthropathica Screening PSA (prostate specific antigen) [...] experience with us by completing your survey. (more content not included)... Normal [facility] Urology Office/Clinic Noteon 12-08-2024 Urology Office/Clinic Note Urology Office/Clinic Note Chief Complaint 1 year f/u HPI Staff Pt is a 59 year old male here for a 1 year follow up for urinary retention previous DX: kidney stones, screening PSA PSA: 02/15/21 - 0.92 Tamsulosin 0.4 mg bid IPSS score of 17 today. Intermittency and weak stream more than half the time. Incomplete emptying and frequency about half the time. Nocturia x1. Urgency less than half the time. Denies all other urinary concerns at this time. History of Present Illness Tests reviewed: reviewed UA I have reviewed the previous health record information and history for this patient from Dr. Fine. I have reviewed and verified the staff [...] HPI. Physical Exam Vitals & Measurements HR: 62(Peripheral) RR: 17 BP: 127/78 HT: 180 cm HT: 71 in WT: 127.1 kg WT: 280.207 lb BMI: 39.23 General Appearance: alert, no distress, well nourished, well developed male. Assessment/Plan 1. BPH with urinary obstruction (N40.1: Benign prostatic hyperplasia with lower urinary tract symptoms) UA neg. IPSS 17, 4 for intermittency and weak stream. Started on Tamsulosin 0.4 mg bid at prior OV for stone passage but has continued taking this for BPH. Feels med works well. States he is satisfied with sx control. -Cont Tamsulosin bid. Call for refills. 2. Kidney stones (N20.0: Calculus of kidney) KUB 10/23/21 [facility] - No calcifications noted in RLQ. Couple faint radiodensities overlying both renal outlines, may represent bowel content or renal calculi. CT AP wo con 10/17/23 [facility] - Multiple small and large nonobstructing stones bilaterally, largest on R 15 x 11 x 13 mm. Has had >5 stone episodes, typically has pressure at tip of penis with stone passage. No hx of surgical intervention. Pt was referred to [facility] for PCNL at prior OV but never scheduled appt as he did not have insurance at that time. Will cont to monitor for stone growth/formation. -Will obtain KUB and call pt with results. 3. Screening PSA (prostate specific antigen) (Z12.5: Encounter for screening for malignant neoplasm of prostate) PSA 02/15/21 - 0.92 No recent level on record. -PSA level to be drawn IO. Will call pt with results. -If level wnl, will f/u in 1 yr w/ PSA Follow-up With When Contact Information BABATUNDE MASON, Yusuf Cortés, URL [address] [place] [address] [place] [address] Additional Instructions: f/u pending PSA and KUB results Patient Education Kidney Stones, [id number] I, Becca Patel, personally scribed for Dr. Fine on 12/08/2024 13:38:44. . Documentation recorded by the scribe, Becca Patel, accurately reflects the services(s) I performed and decisions made by me. Authenticated by Dr. Fine on 12/08/2024 13:40:08. Problem List/Past Medical History Ongoing Anemia Anxiety Atherosclerotic heart disease of [place] coronary artery with angina pectoris BPH with urinary obstruction Contusion COVID-19 Edema Essential hypertension Fatigue Kidney stones Macrocytosis Nonsmoker Obesity due to excess calories Osteoarthritis Psoriasis arthropathica Screening PSA (prostate specific antigen) Sleep disorder Spasm of back muscles Stage 3a chronic kidney disease (CKD) Syncope Vitamin D deficiency Historical COPD (Chronic Obstructive Pulmonary Disease) Assessment Test scale HTN - Hypertension Nephrolithiasis Psoriasis Psoriatic arthritis Procedure/Surgical History Gastric sleeve (09/06/2003), Appendectomy, CABG (Coronary artery bypass grafting) planned, Inguinal hernia. Medications amitriptyline 25 mg Tab, See Instructions, 5 refills amLODIPine 5 mg Tab, See Instructions, 1 refills bisoprolol-hydrochl orothiazide 10 mg-6.25 mg Tab, See Instructions, 1 refills buPROPion 300 mg/24 hours ER Tab, See Instructions, 1 refills cetirizine 10 mg Tab, See Instructions diclofenac, 75 mg, Oral, BID fluticasone Nasal 0.05 mg/inh [place], See Instructions gabapentin 300 mg Cap, See Instructions ipratropium Nasal 0.03% [place], See Instructions Lasix 40 mg Tab, 40 mg= 1 tab(s), Oral, Daily Oyster Shell Calcium with Vitamin D 500 mg-200 intl units oral tablet, See Instructions, 1 refills Taltz Autoinjector 80 mg/mL subcutaneous solution, SubCutaneous, q4wk tamsulosin 0.4 mg Cap, 0.4 mg= 1 cap(s), Oral, BID, 11 refills Allergies morphine (Unknown) Social History Alcohol Never. (more content not included)... Normal [facility] Comment on above: Result Comment: Elec tronically Signed By: Yusuf FINE MD\.br\Date and Time Signed: 12/08/24 13:40 EDT\.br\Electronically Co-Signed By: Becca Patel.br\Date and Time Co-Signed: 12/08/24 13:39 EDT Family Medicine Office/Clini c Noteon 11-04-2024 Family Medicine Office/Clinic Note Family Medicine Office/Clinic Note Chief Complaint The patient reports a headache, nasal congestion, and phlegm production. HPI Staff Glenda is a 59 year old male presenting with headache, cough and mucous Symptoms started- 2 WEEKS Headache- YES Body aches- NOUP Earache- LEFT EAR PLUGGED Runny/stuffy nose- RUNNY NOSE Problem with Smell- NO Problem with Taste- NO Sore throat- NO Cough- YES Scratchy tickle throat- NO Chest symptoms- SOB- NO Lung Hx asthma, bronchitis, chest colds- NO Fever/chills- NO Tried: NOTHING History of Present Illness 59-year-old male presenting with symptoms suggestive of upper respiratory tract congestion. He reports experiencing a headache, nasal congestion, and phlegm production for approximately two weeks. Additionally, he notes left ear blockage and denies any fever. He has not taken any OTC medications. The patient has a history of hypertension, which is currently managed. He denies any history of diabetes or chronic respiratory conditions such as COPD. He is a former smoker, having quit several years ago. Review of Systems PHQ Score Initial Depression Screen Score: 0 SCORE - General: Denies fever - HEENT: Reports headache, nasal congestion, phlegm production, and left ear blockage - Respiratory: Denies chronic respiratory issues such as COPD Physical Exam Vitals & Measurements T: 36.2 ???C(Temporal Artery) HR: 78(Peripheral) RR: 20 BP: 114/74 SpO2: 99% HT: 180.0 cm HT: 71 in WT: 270.507 lb WT: 122.7 kg BMI: 37.87 General: alert, no acute distress ENMT: Positive frontal & maxillary sinus tenderness & nasal passages edematous Cardiovascular: regular rate and rhythm, normal peripheral perfusion Respiratory: Lungs CTA, respirations non labored Extremities: no deformity, no trauma Neurological: oriented x 4, LOC appropriate for age speech normal Assessment/Plan 1. Congestion of upper respiratory tract (J39.8: Other specified diseases of upper respiratory tract) - Prescribed amoxicillin-clavula jerod to be taken twice daily for 10 days - Advised that improvement may be noticed after five days of antibiotic therapy Ordered: amoxicillin-clavula jerod, 1 tab(s), Oral, q12hr for 10 day(s), 20 tab(s), Refill(s) 0, [id number], 180, cm, 11/04/24 13:52:00 EDT, Height/Length Dosing, 122.7, kg, 11/04/24 13:52:00 EDT, Weight Dosing 2. Former smoker (Z87.891: Personal history of nicotine dependence) - No specific intervention required at this time Ordered: amoxicillin-clavula jerod, 1 tab(s), Oral, q12hr for 10 day(s), 20 tab(s), Refill(s) 0, [id number], 180, cm, 11/04/24 13:52:00 EDT, Height/Length Dosing, 122.7, kg, 11/04/24 13:52:00 EDT, Weight Dosing 3. BMI 37.0-37.9, adult (Z68.37: Body mass index [BMI] 37.0-37.9, adult) BMI 37.87 Ordered: amoxicillin-clavula jerod, 1 tab(s), Oral, q12hr for 10 day(s), 20 tab(s), Refill(s) 0, [id number], 180, cm, 11/04/24 13:52:00 EDT, Height/Length Dosing, 122.7, kg, 11/04/24 13:52:00 EDT, Weight Dosing Follow-up No qualifying data available Problem List/Past Medical History Ongoing Anemia Anxiety Atherosclerotic heart disease of [place] coronary artery with angina pectoris Contusion COVID-19 Edema Essential hypertension Fatigue Kidney stones Macrocytosis Nonsmoker Obesity due to excess calories Osteoarthritis Psoriasis arthropathica Screening PSA (prostate specific antigen) Sleep disorder Spasm of back muscles Stage 3a chronic kidney disease (CKD) Syncope Vitamin D deficiency Historical COPD (Chronic Obstructive Pulmonary Disease) Assessment Test scale HTN - Hypertension Nephrolithiasis Psoriasis Psoriatic arthritis Procedure/Surgical History Gastric sleeve (09/06/2003), Appendectomy, CABG (Coronary artery bypass grafting) planned, Inguinal hernia. Medications amitriptyline 25 mg Tab, See Instructions, 5 refills amLODIPine 5 mg Tab, See Instructions, 1 refills Augmentin 875 mg-125 mg Tab, 1 tab(s), Oral, q12hr Bactrim D.S. 800 mg-160 mg Tab, 1 tab(s), Oral, BID bisoprolol-hydrochl orothiazide 10 mg-6.25 mg Tab, See Instructions, 1 refills buPROPion 300 mg/24 hours ER Tab, See Instructions, 1 refills cetirizine 10 mg Tab, See Instructions, 4 refills diclofenac, 75 mg, Oral, BID fluticasone Nasal 0.05 mg/inh [place], See Instructions fluticasone Nasal 0.05 mg/inh [place], See Instructions gabapentin 300 mg Cap, See Instructions ipratropium Nasal 0.03% [place], See Instructions Lasix 40 mg Tab, 40 mg= 1 tab(s), Oral, Daily Oyster Shell Calcium with Vitamin D 500 mg-200 intl units oral tablet, See Instructions, 2 refills Potassium Chloride (Eqv-K-Tab) 20 mEq oral tablet, extended release, 20 mEq= 1 tab(s), Oral, Daily Taltz Autoinjector 80 mg/mL subcutaneous solution, SubCutaneous, q4wk tamsulosin 0.4 mg Cap, 0.4 mg= 1 cap(s), Oral, BID, 11 refills tizanidine, See Instructions Allergies morphine (Unknown) Social History Alcohol Neve (more content not included)... Normal [facility] Comment on above: Result Comment: Elec tronically Signed By: SADIA COURTNEY CNP\.br\Date and Time Signed: 11/04/24 14:13 EDT Mitogen stimulated gamma int erferon corrected for background Qn (Bld)on 03-06-2024 M. tuberculosis stim IFN-g Ql (Bld) [Interp] Negative Negative [facility] Comment on above: No response to M tub erculosis antigens detected. Infection with M tuberculosis is unlikely, but high risk individuals should be considered for additional testing (ATS/IDSA/CDC Clinical Practice Guidelines, 2017). The reference range is an Antigen minus Nil result of <0.35 IU/mL. Chemiluminescence immunoassay methodology QUANTIFERON TB GOLD INCUBATION Incubation performed. [facility] No Panel Informationon 03-06 Performed at: [address] [place] [id number] Hypertrichologist: Marcial Burt PhD, Phone: [phone] [facility] QUANTIFERON-TB GOLD PLUSon 1 05-07-2023 Gamma interferon background IA Qn (Bld) 0.01 IU/mL [facility] M. tuberculosis stim IFN-g by CD4+ CD8+ T-cells corrected for background Qn (Bld) 0.01 IU/mL [facility] M. tuberculosis stim IFN-g by CD4+ T-cells corrected for background Qn (Bld) 0.01 [IU]/mL IU/mL [facility] Mitogen stimulated gamma interferon corrected for background Qn (Bld) >10.00 IU/mL [facility] Service comment (Unsp spec) [Interp] Comment [facility] Comment on above: QuantiFERON-TB Gold Plus is a qualitative indirect test for M tuberculosis infection (including disease) and is intended for use in conjunction with risk assessment, radiography, and other medical and diagnostic evaluations. The QuantiFERON-TB Gold Plus result is determined by subtracting the Nil value from either TB antigen (Ag) value. The Mitogen tube serves as a control for the test. [facility] 02-20-20 [facility] Case Information Case Priority: None Programs: -- Referral Source: [place] Referral Reason: Care coordination Case Type: High Risk Adult Risk Score: -- Case Status: Enrolled (January 18, 2024) Date Assigned: January 17, 2024 Assigned By: Ray Berg Date Enrolled: January 18, 2024 Assigned Primary Personnel: Ray Berg Assigned Secondary Personnel: -- Case Physician: Rodrigo Brink MD Problems Ongoing Anemia Anxiety Atherosclerotic heart disease of [place] coronary artery with angina pectoris BMI 34.0-34.9,adult Contusion COVID-19 Edema Essential hypertension Fatigue Kidney stones Macrocytosis Nonsmoker Obesity (BMI 30-39.9) Obesity due to excess calories Osteoarthritis Psoriasis arthropathica Screening PSA (prostate specific antigen) Sleep disorder Spasm of back muscles Stage 3a chronic kidney disease (CKD) Syncope Vitamin D deficiency Historical COPD (Chronic Obstructive Pulmonary Disease) Assessment Test scale HTN - Hypertension Nephrolithiasis Psoriasis Psoriatic arthritis Procedure/Surgical History Gastric sleeve (09/06/2003), Appendectomy, CABG (Coronary artery bypass grafting) planned, Inguinal hernia. Home Medications amitriptyline 25 mg Tab, See Instructions, 5 refills amLODIPine 5 mg Tab, 5 mg= 1 tab(s), Oral, Daily, 1 refills Bactrim D.S. 800 mg-160 mg Tab, 1 tab(s), Oral, BID bisoprolol-hydrochl orothiazide 10 mg-6.25 mg Tab, 1 tab(s), Oral, Daily, 1 refills buPROPion 300 mg/24 hours ER Tab, See Instructions cetirizine 10 mg Tab, See Instructions, 4 refills diclofenac, 75 mg, Oral, BID fluticasone Nasal 0.05 mg/inh [place], See Instructions gabapentin 300 mg Cap, See Instructions ipratropium Nasal 0.03% [place], See Instructions Lasix 40 mg Tab, 40 mg= 1 tab(s), Oral, Daily Oyster Shell Calcium with Vitamin D 500 mg-200 intl units oral tablet, See Instructions Potassium Chloride (Eqv-K-Tab) 20 mEq oral tablet, extended release, 20 mEq= 1 tab(s), Oral, Daily Taltz Autoinjector 80 mg/mL subcutaneous solution, SubCutaneous, q4wk tamsulosin 0.4 mg Cap, 0.4 mg= 1 cap(s), Oral, BID, 11 refills tizanidine, See Instructions Allergies morphine (Unknown) Social History Alcohol Never., 01/28/2024 Home/Environment Lives with Alone., 06/15/2022 Substance Abuse Never., 01/28/2024 Tobacco Former smoker, quit more than 30 days ago Tobacco Use:. Never Smokeless Tobacco Use:. Household tobacco concerns: No. Yes, 02/12/2024 Family History Family history is unknown Screenings and Assessments 01/18/24 09:30:00 Result Name Value Comment Phone Call Monitoring Consent Agreed to continue call Phone Verification Patient Information Full name, street address and date of verified Program Enrollment Provides verbal consent for enrollment Goals and Interventions Care Plan Progress Note [facility]#5- Called patient for the final [facility] call notes he is 'doing better.' Patient reports the swelling and redness in his legs 'is gone.' Patient does report leg pain mostly when he is up and on his feet, no change. Notes pain 2/10. Notes he elevates his legs as often as he can while at home. Vascular appointment is scheduled 04/04/24. Patient notes he is eating and drinking good. Denies any fever or chills. Denies any issues or concerns with bowels or urinary system. Patient denies any further questions or concerns. Communication Events Date: February 20, 2024 Method: Phone call Type: Outbound Duration (min): 6 Outcome: Case discussion Contact Type: Patient Contact Name: GLENDA BUCKLEY Notes: SCHOOL BUS DRIVER/CUSTODIAN#5- see drainage engineer note. Created By: Ray Berg Date: February 18, 2024 Method: Phone call Type: Outbound Duration (min): 1 Outcome: No answer Contact Type: Patient Contact Name: GLENDA BUCKLEY Notes: SCHOOL BUS DRIVER/CUSTODIAN #4- no answer, no vm. CN to try again later this week then close. Created By: Ray Berg Date: February 11, 2024 Method: Phone call Type: Outbound Duration (min): 3 Outcome: Case discussion Contact Type: Patient Contact Name: GLENDA BUCKLEY Notes: SCHOOL BUS DRIVER/CUSTODIAN #3- see case summary note. Created By: Audrey Celestin RN Date: January 24, 2024 Method: Phone call Type: Outbound Duration (min): 1 Outcome: No answer Contact Type: Patient Contact Name: GLENDA BUCKLEY Notes: SCHOOL BUS DRIVER/CUSTODIAN#2- attempted to reach pt, no answer, no vm. Created By: Ray Berg Date: January 18, 2024 Method: Phone call Type: Outbound Duration (min): 22 Outcome: Case discussion Contact Type: Patient Contact Name: GLENDA BUCKLEY Notes: SCHOOL BUS DRIVER/CUSTODIAN#1- see note. Created By: Ray Berg [facility] Ambulatory Visit Summaryon 1 04-13-2023 Ambulatory Visit Summary Ambulatory Visit Summary AMBROSIOGLENDA :1965 Visit Date:02/12/2024 Ambulatory Visit Instructions Your Diagnosis Cellulitis of lower extremity, unspecified laterality Edema BMI 34.0-34.9,adult Obesity (BMI 30-39.9) Nonsmoker Your Care Team Attending Physician - Rodrigo Brink MD. Primary Care Physician - Rodrigo Brink MD This Is Your Medications List amitriptyline (amitriptyline 25 mg Tab) amlodipine (amLODIPine 5 mg Tab) bisoprolol-hydrochl orothiazide (bisoprolol-hydroch lorothiazide 10 mg-6.25 mg Tab) buPROPion (buPROPion 300 mg/24 hours ER Tab) calcium-vitamin D ([place] Calcium with Vitamin D 500 mg-200 intl units oral tablet) cetirizine (cetirizine 10 mg Tab) diclofenac fluticasone nasal (fluticasone Nasal 0.05 mg/inh [place]) furosemide (Lasix 40 mg Tab) gabapentin (gabapentin 300 mg Cap) ipratropium nasal (ipratropium Nasal 0.03% [place]) ixekizumab (Taltz Autoinjector 80 mg/mL subcutaneous solution) potassium chloride (Potassium Chloride (Eqv-K-Tab) 20 mEq oral tablet, extended release) sulfamethoxazole-tr imethoprim (Bactrim D.S. 800 mg-160 mg Tab) tamsulosin (tamsulosin 0.4 mg Cap) tizanidine Procedures Performed Gastric sleeve (09/06/2003), Appendectomy, CABG (Coronary artery bypass grafting) planned, Inguinal hernia. Discharge Vitals Temperature (Tympanic) 36.7 ???C Heart Rate (Peripheral) 91 Respiratory Rate 18 Blood Pressure 126/80 Height 180 cm Height 71 in Weight 111.4 kg Weight 245.595 lb BMI 34.38 What to do next Scheduled Follow-Up Appointments 2023 10:00 AM EST With: Murali MASON, Rodrigo Chiu Where: [facility] [place] [id number]- Medications What How Much When Instructions Unchanged amitriptyline (amitriptyline 25 mg Tab) See instructions TAKE 2 TABLETS BY MOUTH AT BEDTIME Unchanged amlodipine (amLODIPine 5 mg Tab) 1 Tablets By Mouth Every day Unchanged bisoprolol-hydrochl orothiazide (bisoprolol-hydroch lorothiazide 10 mg-6.25 mg Tab) 1 Tablets By [...] fluticasone nasal (fluticasone Nasal 0.05 mg/ inh [place]) See instructions SPRAY 1 SPRAY INTO EACH NOSTRIL EVERY DAY Unchanged furosemide (Lasix 40 mg Tab) 1 Tablets By Mouth Every day Unchanged gabapentin (gabapentin 300 mg Cap) See instructions Take 2 orally in the am, one in the afternoon and one at bedtime Unchanged ipratropium nasal (ipratropium Nasal 0.03% [place]) See instructions USE 2 SPRAYS IN EACH NOSTRIL 3 TIMES DAILY Unchanged ixekizumab (Taltz Autoinjector 80 mg/ mL subcutaneous solution) Subcutaneous Every 4 weeks Unchanged potassium chloride (Potassium Chloride (Eqv-K-Tab) 20 mEq oral tablet, extended release) 1 Tablets By Mouth 2 times a day Unchanged sulfamethoxazole-tr imethoprim (Bactrim D.S. 800 mg-160 mg Tab) 1 Tablets By Mouth 2 times a day Unchanged tamsulosin (tamsulosin 0.4 mg Cap) 1 Capsules By Mouth 2 times a day Unchanged tizanidine See instructions Take 1 tablet in the am and take 2 tablets in the evening Allergies morphine (Unknown) Problems Ongoing - Any problem that you are currently receiving treatment for. Anemia Anxiety Atherosclerotic heart disease of [place] coronary artery with angina pectoris BMI 34.0-34.9,adult Contusion COVID-19 Edema Essential hypertension Fatigue Kidney stones Macrocytosis Nonsmoker Obesity (BMI 30-39.9) Obesity due to excess calories Osteoarthritis Psoriasis arthropathica Screening PSA (prostate specific antigen) [...] for choosing us for your care. Normal [facility] Family Medicine Office/Clini c Noteon 02-12-2024 Family Medicine Office/Clinic Note Family Medicine Office/Clinic Note Chief Complaint 1wk follow up HPI Staff Glenda is a 58 year old male presenting for one week follow up cellulitis LE ARNAV bactrim again, cont lasix and potassium, encouraged wrapping and elevation of leg States swelling has gone down some. Pain has decreased from 5 to 4 out of 10. Side note: Had blood work done by airframe and powerplant technician. Kidney levels were off. He is being referred to a [facility]. History of Present Illness See staff HPI. Review of Systems PHQ Score Initial Depression Screen Score: 0 SCORE Physical Exam Vitals & Measurements T: 36.7 ???C(Tympanic) HR: 91(Peripheral) RR: 18 BP: 126/80 SpO2: 98% HT: 71 in HT: 180 cm WT: 111.4 kg WT: 245.595 lb BMI: 34.38 General: alert, no acute distress ENMT: oral mucosa moist, Cardiovascular: regular rate and rhythm, normal peripheral perfusion Respiratory: Lungs CTA, respirations non labored Extremities: no deformity, no trauma, very little redness to the left lower extremity. Swelling is improved significantly. Neurological: oriented x 4, LOC appropriate for age, CN II-XII intact, motor strength equal & normal bilaterally, speech normal Abdomen: Soft, Nontender, Non-distended, + BS Procedure Images [Image Removed: 2024-01-28 08:13:49]2024-01-28 08:13:49 [Image Removed: 2024-01-28 08:14:08]2024-01-28 08:14:08 [Image Removed: 2024-02-05 08:35:52]2024-02-05 08:35:52 [Image Removed: 2024-02-05 08:36:06]2024-02-05 08:36:06 [Image Removed: 2024-02-12 07:46:12]2024-02-12 07:46:12 [Image Removed: 2024-02-12 07:46:23]2024-02-12 07:46:23 Assessment/Plan 1. Cellulitis of lower extremity, unspecified laterality (L03.119: Cellulitis of unspecified part of limb) Improving at this time. Almost no redness of the left lower extremity. Swelling is down as well. Ordered: Basic Metabolic Panel 2. Edema (R60.9: Edema, unspecified) At this time we will continue to keep the left lower leg wrapped. Will refer to vascular again given that this is a unilateral swelling. Follow-up as needed. Will do another 5 days of Lasix. I would like lab work that the patient just got. Patient was to follow-up with Dr. Lima at [facility] for PERC nephrolithotomy due to large stone volume. Patient needs to follow-up with them. Ordered: Basic Metabolic Panel 3. BMI 34.0-34.9,adult (Z68.34: Body mass index [BMI] 34.0-34.9, adult) BMI education given Ordered: Basic Metabolic Panel 4. Obesity (BMI 30-39.9) (E66.9: Obesity, unspecified) Diet and exercise advised Ordered: Basic Metabolic Panel 5. Nonsmoker (Z78.9: Other specified health status) Please continue not smoke Ordered: Basic Metabolic Panel Orders: furosemide, 40 mg = 1 tab(s), Oral, Daily, # 5 tab(s), Refills(s) 0, Pharmacy: [id number], 180, cm, 02/12/24 7:41:00 EST, Height/Length Dosing, 111.4, kg, 02/12/24 7:41:00 EST, Weight Dosing potassium chloride, 20 mEq = 1 tab(s), Oral, Daily, # 5 tab(s), Refills(s) 0, Pharmacy: [facility]/pharmacy #[id number], 180, cm, 02/12/24 7:41:00 EST, Height/Length Dosing, 111.4, kg, 02/12/24 7:41:00 EST, Weight Dosing Follow-up No qualifying data available Problem List/Past Medical History Ongoing Anemia Anxiety Atherosclerotic heart disease of [place] coronary artery with angina pectoris BMI 34.0-34.9,adult Contusion COVID-19 Edema Essential hypertension Fatigue Kidney stones Macrocytosis Nonsmoker Obesity (BMI 30-39.9) Obesity due to excess calories Osteoarthritis Psoriasis arthropathica Screening PSA (prostate specific antigen) Sleep disorder Spasm of back muscles Stage 3a chronic kidney disease (CKD) Syncope Vitamin D deficiency Historical COPD (Chronic Obstructive Pulmonary Disease) Assessment Test scale HTN - Hypertension Nephrolithiasis Psoriasis Psoriatic arthritis Procedure/Surgical History Gastric sleeve (09/06/2003), Appendectomy, CABG (Coronary artery bypass grafting) planned, Inguinal hernia. Medications amitriptyline 25 mg Tab, See Instructions, 5 refills amLODIPine 5 mg Tab, 5 mg= 1 tab(s), Oral, Daily, 1 refills Bactrim D.S. 800 mg-160 mg Tab, 1 tab(s), Oral, BID bisoprolol-hydrochl orothiazide 10 mg-6.25 mg Tab, 1 tab(s), Oral, Daily, 1 refills buPROPion 300 mg/24 hours ER Tab, See Instructions cetirizine 10 mg Tab, See Instructions, 4 refills diclofenac, 75 mg, Oral, BID fluticasone Nasal 0.05 mg/inh [place], See Instructions gabapentin 300 mg Cap, See Instructions ipratropium Nasal 0.03% [place], See Instructions Lasix 40 mg Tab, 40 mg= 1 tab(s), Oral, Daily Oyster Shell Calcium with Vitamin D 500 mg-200 intl units oral tablet, See Instructions Potassium Chloride (Eqv-K-Tab) 20 mEq oral tablet, extended release, 20 mEq= 1 tab(s), Oral, Daily Taltz Autoinjector 80 mg/mL subcutaneous solution, SubCutaneous, q4wk tamsulosin 0.4 mg Cap, 0.4 mg= 1 cap(s), Oral, BID, 11 refills tizanidine, See Instructions Allergies morphine (Unknown) Social Histo (more content not included)... Normal [facility] Comment on above: Result Comment: Elec tronically Signed By: Rodrigo Brink MD\.br\Date and Time Signed: 02/12/24 08:05 EST Other Comment: Kelsy peres Attachment [id number] Can be viewed in source system Missing Attachment [id number] Can be viewed in source system Missing Attachment [id number] Can be viewed in source system Missing Attachment [id number] Can be viewed in source system [facility] 02-11-20 [facility] Case Information Case Priority: None Programs: -- Referral Source: [place] Referral Reason: Care coordination Case Type: High Risk Adult Risk Score: -- Case Status: Enrolled (January 18, 2024) Date Assigned: January 17, 2024 Assigned By: Ray Berg Date Enrolled: January 18, 2024 Assigned Primary Personnel: Ray Berg Assigned Secondary Personnel: -- Case Physician: Rodrigo Brink MD Problems Ongoing Anemia Anxiety Atherosclerotic heart disease of [place] coronary artery with angina pectoris Contusion COVID-19 [...] mg-160 mg Tab, 1 tab(s), Oral, BID bisoprolol-hydrochl orothiazide 10 mg-6.25 mg Tab, 1 tab(s), Oral, Daily, 1 refills buPROPion 300 mg/24 hours ER Tab, See Instructions cetirizine 10 mg Tab, See Instructions, 4 refills diclofenac, 75 mg, Oral, BID fluticasone Nasal 0.05 mg/inh [place], See Instructions gabapentin 300 mg Cap, See Instructions ipratropium Nasal 0.03% [place], See Instructions, Not taking Lasix 40 mg [...] Alcohol Never., 01/28/2024 Home/Environment Lives with Alone., 06/15/2022 Substance Abuse Never., 01/28/2024 Tobacco Former smoker, quit more than 30 days ago Tobacco Use:., 02/05/2024 Family History Family history is unknown Screenings and Assessments 01/18/24 09:30:00 Result Name Value Comment Phone Call Monitoring Consent Agreed to continue call Phone Verification Patient Information Full name, street address and date of verified CM Program Enrollment Provides verbal consent for enrollment Goals and Interventions Care Plan Progress Note [facility] call #3- Patient stated he is doing pretty good. Stated swelling has gone down some to LLE; denies any redness. Wearing kristie wrap as instructed. Continues to take antibiotic as prescribed. Continues with chronic pain, mostly in knees. Had an appointment with Pain Management at [facility] on 02/06/24. Eating and drinking well. Denies any further questions or concerns. Has appt with PCP on 02/12/24. Communication Events Date: February 11, 2024 Method: Phone call Type: Outbound Duration (min): 3 Outcome: Case discussion Contact Type: Patient Contact Name: GLENDA BUCKLEY Notes: [employer]IVER/CUSTODIAN #3- see case summary note. Created By: Audrey Celestin RN Date: January 24, 2024 Method: Phone call Type: Outbound Duration (min): 1 Outcome: No answer Contact Type: Patient Contact Name: AMBROSIOGLENDA Jarrett Notes: S[employer]IVER/CUSTODIAN#2- attempted to reach pt, no answer, no vm. Created By: Ray Berg Date: January 18, 2024 Method: Phone call Type: Outbound Duration (min): 22 Outcome: Case discussion Contact Type: Patient Contact Name: AMBROSIOGLENDA Notes: S[employer]IVER/CUSTODIAN#1- see note. Created By: Ray Berg [facility] Ambulatory Visit Summaryon 04-06-2023 Ambulatory Visit Summary Ambulatory Visit Summary AMBROSIOGLENDA :1965 Visit Date:02/05/2024 Ambulatory Visit Instructions Your Diagnosis Cellulitis of lower extremity, unspecified laterality Essential hypertension BMI 35.0-35.9,adult Exogenous obesity Former smoker Your Care Team Attending Physician - Rodrigo Brink MD Primary Care Physician - Rodrigo Brink MD This Is Your Medications List amitriptyline (amitriptyline 25 mg Tab) amlodipine (amLODIPine 5 mg Tab) bisoprolol-hydrochl orothiazide (bisoprolol-hydroch lorothiazide 10 mg-6.25 mg Tab) buPROPion (buPROPion 300 mg/24 hours ER Tab) calcium-vitamin D ([place] Calcium with Vitamin D 500 mg-200 intl units oral tablet) cetirizine (cetirizine 10 mg Tab) diclofenac fluticasone nasal (fluticasone Nasal 0.05 mg/inh [place]) furosemide (Lasix 40 mg Tab) gabapentin (gabapentin 300 mg Cap) ipratropium nasal (ipratropium Nasal 0.03% [place]) ixekizumab (Taltz Autoinjector 80 mg/mL subcutaneous solution) [...] AM EST With: Rodrigo Brink MD Where: [address] [address]23 10:00 AM EST With: Rodrigo Brink MD Where: [address] [address]- Medications What How Much When Instructions Unchanged amitriptyline (amitriptyline 25 mg Tab) See instructions TAKE 2 TABLETS BY MOUTH AT BEDTIME Unchanged amlodipine (amLODIPine 5 mg Tab) 1 Tablets By Mouth Every day Unchanged bisoprolol-hydrochl orothiazide (bisoprolol-hydroch lorothiazide 10 mg-6.25 mg Tab) 1 Tablets By [...] fluticasone nasal (fluticasone Nasal 0.05 mg/ inh [place]) See instructions SPRAY 1 SPRAY INTO EACH NOSTRIL EVERY DAY Unchanged furosemide (Lasix 40 mg Tab) 1 Tablets By Mouth Every day Unchanged gabapentin (gabapentin 300 mg Cap) See instructions Take 2 orally in the am, one in the afternoon and one at bedtime Unchanged ipratropium nasal (ipratropium Nasal 0.03% [place]) See instructions USE 2 SPRAYS IN EACH [...] for. Anemia Anxiety Atherosclerotic heart disease of [place] coronary artery with angina pectoris Contusion COVID-19 [...] for choosing us for your care. Normal [facility] Family Medicine Office/Clini c Noteon 02-05-2024 Family [...] still hurts some rates it a 5 questions/concerns; needs his bupropion refiled History of Present [...] by the pictures. Images [Image Removed: 2024-01-28 08:13:49]2024-01-28 08:13:49 [Image Removed: 2024-01-28 08:14:08]2024-01-28 08:14:08 [Image Removed: 2024-02-05 08:35:52]2024-02-05 08:35:52 [Image Removed: 2024-02-05 08:36:06]2024-02-05 08:36:06 Assessment/Plan 1. Cellulitis of lower extremity, [...] DAY, # 90 tab(s), Refills(s) 0, Pharmacy: [facility]/pharmacy #[id number], 180, cm, 02/05/24 8:29:00 EST, Height/Length Dosing, 114.2, kg, 02/05/24 8:29:00 EST, Weight Dosing furosemide, 40 mg = 1 tab(s), Oral, Daily, # 5 tab(s), Refills(s) 0, Pharmacy: [facility]/pharmacy #[id number], 180, cm, 02/05/24 8:29:00 EST, Height/Length Dosing, 114.2, kg, 02/05/24 8:29:00 EST, Weight Dosing potassium chloride, 20 mEq = 1 tab(s), Oral, BID, # 5 tab(s), Refills(s) 0, Pharmacy: [facility]/pharmacy #[id number], 180, cm, 02/05/24 8:29:00 EST, Height/Length Dosing, 114.2, kg, 02/05/24 8:29:00 EST, Weight Dosing sulfamethoxazole-tr imethoprim, 1 tab(s), Oral, BID, 20 tab(s), Refill(s) 0, [facility]/pharmacy #[id number], 180, cm, 02/05/24 8:29:00 EST, Height/Length Dosing, 114.2, kg, 02/05/24 8:29:00 EST, Weight Dosing Well-controlled. Patient needs refill. Follow-up No qualifying data available Problem List/Past Medical History Ongoing Anemia Anxiety Atherosclerotic heart disease of [place] coronary artery with angina pectoris Contusion COVID-19 [...] mg-160 mg Tab, 1 tab(s), Oral, BID bisoprolol-hydrochl orothiazide 10 mg-6.25 mg Tab, 1 tab(s), Oral, Daily, 1 refills buPROPion 300 mg/24 hours ER Tab, See Instructions cetirizine 10 mg Tab, See Instructions, 4 refills diclofenac, 75 mg, Oral, BID fluticasone Nasal 0.05 mg/inh [place], See Instructions gabapentin 300 mg Cap, See Instructions ipratropium Nasal 0.03% [place], See Instructions, Not taking Lasix 40 mg [...] Alone., 0 (more content not included)... Normal [facility] Comment on above: Result Comment: Elec tronically Signed By: Rodrigo Brink MD\.br\Date and Time Signed: 02/05/24 08:46 EST Other Comment: Kelsy peres Attachment [id number] Can be viewed in source system Missing Attachment [id number] Can be viewed in source system Missing Attachment [id number] Can be viewed in source system Missing Attachment [id number] Can be viewed in source system Ambulatory [...] mg Tab) amlodipine (amLODIPine 5 mg Tab) bisoprolol-hydrochl orothiazide (bisoprolol-hydroch lorothiazide 10 mg-6.25 mg Tab) buPROPion (buPROPion 300 mg/24 hours ER Tab) calcium-vitamin D ([place] Calcium with Vitamin D 500 mg-200 intl units oral tablet) cetirizine (cetirizine 10 mg Tab) clindamycin diclofenac fluticasone nasal (fluticasone Nasal 0.05 mg/inh [place]) gabapentin (gabapentin 300 mg Cap) ipratropium nasal (ipratropium Nasal 0.03% [place]) ixekizumab (Taltz Autoinjector 80 mg/mL subcutaneous solution) [...] AM EST With: Rodrigo Brink MD Where: [address] [address] 10:00 AM EST With: Rodrigo Brink MD Where: [address] [address]- Medications What How Much When Instructions Unchanged amitriptyline (amitriptyline 25 mg Tab) See instructions TAKE 2 TABLETS BY MOUTH AT BEDTIME Unchanged amlodipine (amLODIPine 5 mg Tab) 1 Tablets By Mouth Every day Unchanged bisoprolol-hydrochl orothiazide (bisoprolol-hydroch lorothiazide 10 mg-6.25 mg Tab) 1 Tablets By [...] fluticasone nasal (fluticasone Nasal 0.05 mg/ inh [place]) See instructions SPRAY 1 SPRAY INTO EACH NOSTRIL EVERY DAY Unchanged gabapentin (gabapentin 300 mg Cap) See instructions Take 2 orally in the am, one in the afternoon and one at bedtime Unchanged ipratropium nasal (ipratropium Nasal 0.03% [place]) See instructions USE 2 SPRAYS IN EACH [...] rhinitis Anemia Anxiety Atherosclerotic heart disease of [place] coronary artery with angina pectoris Contusion COVID-19 [...] you for choosing us for your care. [place] [facility] Family Medicine Office/Clini c Noteon 01-28-2024 Family Medicine Office/Clinic Note Family Medicine Office/Clinic Note Chief Complaint Bilateral leg swelling and redness HPI Staff Glenda is a 58 year old male presenting for Hospital follow up Hospital: [place] Admission date: 01/14/24 Discharge date: 01/15/24 Symptoms [...] day(s), # 5 tab(s), Refills(s) 0, Pharmacy: [facility]/pharmacy #[id number], 180, cm, 01/28/24 8:01:00 EDT, Height/Length Dosing, 113.4, kg, 01/28/24 8:01:00 EDT, Weight Dosing potassium chloride, 20 mEq = 1 tab(s), Oral, Daily, X 5 day(s), # 5 tab(s), Refills(s) 0, Pharmacy: [facility]/pharmacy #[id number], 180, cm, 01/28/24 8:01:00 EDT, Height/Length Dosing, 113.4 (more content not included)... Normal [facility] Comment on above: Result Comment: Elec tronically Signed By: Rodrigo Brink MD\.br\Date and Time Signed: 01/28/24 08:25 EDT [facility] 01-18-20 [facility] Case Information Case Priority: None Programs: -- Referral Source: [place] Referral Reason: Care coordination Case Type: High Risk Adult Risk Score: -- Case Status: Enrolled (January 18, 2024) Date Assigned: January 17, 2024 Assigned By: Ray Berg Date Enrolled: January 18, 2024 Assigned Primary Personnel: Ray Berg Assigned Secondary Personnel: -- Case Physician: Rodrigo Brink MD Problems Ongoing Acute URI Allergic rhinitis Anemia Anxiety Atherosclerotic heart disease of [place] coronary artery with angina pectoris Contusion COVID-19 [...] mg= 1 tab(s), Oral, Daily, 1 refills bisoprolol-hydrochl orothiazide 10 mg-6.25 mg Tab, 1 tab(s), Oral, Daily, 1 refills buPROPion 300 mg/24 hours ER Tab, See Instructions cefdinir, 600 mg, Oral, Daily cetirizine 10 mg Tab, See Instructions, 4 refills clindamycin, 300 mg, Oral, q6hr diclofenac, 75 mg, Oral, BID Flonase Allergy Relief 50 mcg/inh nasal spray, 1 spray(s), Nasal, Daily gabapentin 300 mg Cap, See Instructions ipratropium Nasal 0.03% [place], See Instructions [place] Calcium with Vitamin [...] Care Plan Progress Note Admit Date: 01/14/2024 [facility] Date of Discharge: 01/17/24 Follow-up appointment scheduled? yes, [facility] 01/28/24 at 0745 with PCP Did you [...] benefit fro (more content not included)... Normal [facility] Ambulatory Visit Summaryon 0 12-25-2023 Ambulatory Visit [...] mg Tab) amlodipine (amLODIPine 5 mg Tab) bisoprolol-hydrochl orothiazide (bisoprolol-hydroch lorothiazide 10 mg-6.25 mg Tab) buPROPion (buPROPion 300 mg/24 hours ER Tab) calcium-vitamin D ([place] Calcium with Vitamin D 500 mg-200 intl units oral tablet) cetirizine (cetirizine 10 mg Tab) cyclobenzaprine (cyclobenzaprine 10 mg Tab) gabapentin (gabapentin 300 mg Cap) ipratropium nasal (ipratropium Nasal 0.03% [place]) ixekizumab (Taltz Autoinjector 80 mg/mL subcutaneous solution) [...] AM EDT With: Rodrigo Brink MD Where: [address] [address] 10:00 AM EST With: Rodrigo Brink MD Where: [address] [address]- Medications What How Much When Why Instructions New amoxicillin (amoxicillin 500 mg Cap) 1 Capsules By Mouth Every 12 hours Acute URI Pickup at [facility]/pharmacy #[id number] New fluticasone nasal (Flonase Allergy Relief 50 mcg/ inh nasal spray) 1 Sprays Nasal Inhalation Every day Pickup at [facility]/pharmacy #[id number] Unchanged amitriptyline (amitriptyline 25 mg Tab) See instructions TAKE 2 TABLETS BY MOUTH AT BEDTIME Contact prescribing physician if questions or concerns Unchanged amlodipine (amLODIPine 5 mg Tab) 1 Tablets By Mouth Every day Contact prescribing physician if questions or concerns Unchanged bisoprolol-hydrochl orothiazide (bisoprolol-hydroch lorothiazide 10 mg-6.25 mg Tab) 1 Tablets By [...] concerns Unchanged ipratropium nasal (ipratropium Nasal 0.03% [place]) See instructions USE 2 SPRAYS IN EACH [...] physician if questions or concerns Pharmacy Information [facility]/pharmacy #[id number]: [address], [place] [id number] [phone] Allergies morphine (Unknown) Problems Ongoing - Any problem that you are currently receiving treatment for. Acute URI Allergic rhinitis Anemia Anxiety Atherosclerotic heart disease of [place] coronary artery with angina pectoris Contusion COVID-19 Essential hypertension Eustachian tube dysfunction Fatigue Kidney stones Macrocytosis Obesity due to excess calories Psoriasis arthropathica Screening PSA (prostate specific antigen) Sleep disorder Spasm of back muscles Stage 3a chronic kidney disease (CKD) Syncope Vitamin D deficiency Historical - (more content not included)... Normal [facility] Office/Clini c Noteon 12-25-2023 Family Medicine [...] no Remedies tried: nothing tried _ _ questions/concerns: needs his ipatropium nasal spray refilled and [...] q12hr, # 20 cap(s), Refills(s) 0, Pharmacy: [facility]/pharmacy #[id number], 180, cm, 12/25/23 14:44:00 EDT, Height/Length Dosing, 116.9, kg, 12/25/23 14:44:00 EDT, Weight Dosing Orders: fluticasone nasal, = 1 spray(s), Nasal, Daily, # 16 gm, Refills(s) 0, Pharmacy: [facility]/pharmacy #[id number], 180, cm, 12/25/23 14:44:00 EDT, Height/Length Dosing, 116.9, kg, 12/25/23 14:44:00 EDT, Weight Dosing Follow-up No qualifying data available Problem List/Past Medical History Ongoing Acute URI Allergic rhinitis Anemia Anxiety Atherosclerotic heart disease of [place] coronary artery with angina pectoris Contusion COVID-19 [...] Cap, 500 mg= 1 cap(s), Oral, q12hr bisoprolol-hydrochl orothiazide 10 mg-6.25 mg Tab, 1 tab(s), Oral, Daily, 1 refills buPROPion 300 mg/24 hours ER Tab, See Instructions cetirizine 10 mg Tab, See Instructions, 4 refills cyclobenzaprine 10 mg Tab, 10 mg= 1 tab(s), Oral, TID, PRN Flonase Allergy Relief 50 mcg/inh nasal spray, 1 spray(s), Nasal, Daily gabapentin 300 mg Cap, See Instructions ipratropium Nasal 0.03% [place], See Instructions [place] Calcium with Vitamin [...] SARS-CoV-2 (COVID-19) mRNA BNT-162b2 vax 08/17/2020 Recorded diphtheria/pertussi s, acel/tetanus adult 11/15/2019 Recorded Normal [facility] Comment on above: Result Comment: Elec tronically Signed By: Murali MASON, Rodrigo Chiu\.br\Date and Time Signed: 12/25/23 15:01 EDT CHEMISTRYOrdered By: SYSTEM SYSTEM on 10-31-2022 25-hydroxyvitamin [...] 6.5 E9/L Normal 4.0 - 11.0 E9/L [facility] HemeAutoSS CBC AUTO DIFFon 07-29-2022 BASO # 0.0 103/ul Normal 0.0-0.1 [facility] Comment on above: Performed By: #### C BC #### [facility] [address] [place] [address] Dr. Roosevelt Verde Basophils/100 WBC (Bld) 0.4 % Normal 0.2-2.0 [facility] Comment on above: Performed By: #### C BC #### [facility] [address] [place] [address] Dr. Roosevelt Verde EO # 0.0 103/ul Normal 0.0-0.7 [facility] Comment on above: Performed By: #### C BC #### [facility] [address] [place] [address] Dr. Roosevelt Verde Eosinophils/100 WBC (Bld) 0.4 % Critically low 0.9-7.0 [facility] Comment on above: Performed By: #### C BC #### [facility] [address] [place] [address] Dr. Roosevelt Verde Erythrocyte distribution width (RBC) [Ratio] 13.3 % Normal 11.0-15.0 [facility] Comment on above: Performed By: #### C BC #### [facility] [address] [place] [address] Dr. Roosevelt Verde Hematocrit (Bld) [Volume fraction] 42.9 % Normal 42.0-54.0 [facility] Comment on above: Performed By: #### C BC #### [facility] [address] [address] [address] Roosevelt Verde Hemoglobin (Bld) [Mass/Vol] 13.9 g/dL Critically low 14.0-18.0 [facility] Comment on above: Performed By: #### C BC #### [facility] [address] [place] [address] Dr. Roosevelt Verde IG # 0.02 10e3/ul Normal 0.00-0.03 [facility] Comment on above: Performed By: #### C BC #### [facility] [address] [place] [address] Dr. Roosevelt Verde IG % 0.2 % Normal 0.0-0.5 [facility] Comment on above: Performed By: #### C BC #### [facility] [address] [place] [address] Dr. Roosevelt Verde LYMPH # 1.1 103/ul Critically low 1.2-3.8 [facility] Comment on above: Performed By: #### C BC #### [facility] [address] [place] [address] Dr. Roosevelt Verde Lymphocytes/100 WBC (Bld) 13.5 % Critically low 20.5-60.0 [facility] Comment on above: Performed By: #### C BC #### [facility] [address] [place] [address] Dr. Roosevelt Verde MANUAL DIFF REQ NO Normal [facility] Comment on above: Performed By: #### C BC #### [facility] [address] [place] [address] Dr. Roosevelt Verde MCH (RBC) [Entitic mass] 34.6 pg Critically high 25.9-34.0 [facility] Comment on above: Performed By: #### C BC #### [facility] [address] [place] [address] Dr. Roosevelt Verde MCHC (RBC) [Mass/Vol] 32.4 g/dL Normal 29.9-35.2 [facility] Comment on above: Performed By: #### C BC #### [facility] [address] [address] [address] Roosevelt Verde MCV (RBC) [Entitic vol] 106.7 fL Critically high 80.0-94.0 [facility] Comment on above: Performed By: #### C BC #### [facility] [address] [address] [address] Roosevelt Verde MONO # 0.6 103/ul Normal 0.3-0.8 [facility] Comment on above: Performed By: #### C BC #### [facility] [address] [address] [address] Roosevelt Verde Monocytes/100 WBC (Bld) 7.6 % Normal 1.7-12.0 [facility] Comment on above: Performed By: #### C BC #### [facility] [address] [address] [address] Roosevelt Verde NEUT # 6.3 103/ul Normal 1.4-6.5 [facility] Comment on above: Performed By: #### C BC #### [facility] [address] [address] [address] Roosevelt Verde Neutrophils/100 WBC (Bld) 77.9 % Critically high 43.0-75.0 [facility] Comment on above: Performed By: #### C BC #### [facility] [address] [address] [address] Roosevelt Verde Platelet mean volume (Bld) [Entitic vol] 9.4 fL Critically low 9.5-13.5 [facility] Comment on above: Performed By: #### C BC #### [facility] [address] [address] [address] Roosevelt Verde PLT 315 103/ul Normal 150-450 [facility] Comment on above: Performed By: #### C BC #### [facility] [address] [address] [address] Roosevelt Verde RBC 4.02 106/ul Critically low 4.70-6.10 [facility] Comment on above: Performed By: #### C BC #### [facility] [address] [place] [address] Dr. Roosevelt Verde WBC 8.1 103/ul Normal 4.0-11.0 [facility] Comment on above: Performed By: #### C BC #### [facility] [address] [place] [address] Dr. Roosevelt Verde CRPon 07-29-2022 CRP 4.4 mg/dL Critically high <=1.0 [facility] Comment on above: Performed By: #### C BC #### [facility] [address] [place] [address] Dr. Roosevelt Verde MYOGLOBINon 07-29-2022 FISH 33 ng/mL Normal 16-96 [facility] Comment on above: Performed By: #### C BC #### [facility] [address] [place] [address] Dr. Roosevelt Verde PROF 14(COMP METB)on 023 Albumin [Mass/Vol] 3.8 g/dL Normal 3.4-5.0 [facility] Comment on above: Performed By: #### C BC #### [facility] [address] [place] [address] Dr. Roosevelt Verde Albumin/Globulin [Mass ratio] 1.0 {ratio} Normal [facility] Comment on above: Performed By: #### C BC #### [facility] [address] [place] [address] Dr. Roosevelt Verde ALP [Catalytic activity/Vol] 83 U/L Normal 46-116 [facility] Comment on above: Performed By: #### C BC #### [facility] [address] [place] [address] Dr. Roosevelt Verde ALT [Catalytic activity/Vol] 36 U/L Normal 16-63 [facility] Comment on above: Performed By: #### C BC #### [facility] [address] [place] [address] Dr. Roosevelt Verde Anion gap [Moles/Vol] 11.9 mmol/L Normal [facility] Comment on above: Performed By: #### C BC #### [facility] [address] [address] [address] Roosevelt Verde AST [Catalytic activity/Vol] 13 U/L Critically low 15-37 [facility] Comment on above: Performed By: #### C BC #### [facility] [address] [address] [address] Roosevelt Verde Bilirubin [Mass/Vol] 0.6 mg/dL Normal 0.2-1.0 [facility] Comment on above: Performed By: #### C BC #### [facility] [address] [address] [address] Roosevelt Verde Calcium [Mass/Vol] 8.6 mg/dL Normal 8.5-10.1 [facility] Comment on above: Performed By: #### C BC #### [facility] [address] [address] [address] Roosevelt Verde Chloride [Moles/Vol] 106 mmol/L Normal 98-107 [facility] Comment on above: Performed By: #### C BC #### [facility] [address] [address] [address] Roosevelt Verde CO2 [Moles/Vol] 25.8 mmol/L Normal 21.0-32.0 [facility] Comment on above: Performed By: #### C BC #### [facility] [address] [address] [address] Roosevelt Verde Creatinine [Mass/Vol] 1.52 mg/dL Critically high 0.70-1.30 [facility] Comment on above: Performed By: #### C BC #### [facility] [address] [address] [address] Roosevelt Verde EGFR-AF DJIBOUTIAN 58 mL/min/1.73m2 Critically low >=60 [facility] Comment on above: Performed By: #### C BC #### [facility] [address] [address] [address] Roosevelt Verde EGFR-NON AF DJIBOUTIAN 48 mL/min/1.73m2 Critically low >=60 [facility] Comment on above: Performed By: #### C BC #### [facility] [address] [address] [address] Roosevelt Verde Globulin (S) [Mass/Vol] 3.7 g/dL Normal [facility] Comment on above: Performed By: #### C BC #### [facility] [address] [address] [address] Roosevelt Verde Glucose [Mass/Vol] 123 mg/dL Critically high 74-106 [facility] Comment on above: Performed By: #### C BC #### [facility] [address] [address] [address] Roosevelt Verde Potassium [Moles/Vol] 4.7 mmol/L Normal 3.5-5.1 [facility] Comment on above: Performed By: #### C BC #### [facility] [address] [address] [address] Roosevelt Verde Protein [Mass/Vol] 7.5 g/dL Normal 6.4-8.2 [facility] Comment on above: Performed By: #### C BC #### [facility] [address] [address] [address] Roosevelt Verde Sodium [Moles/Vol] 139 mmol/L Normal 136-145 [facility] Comment on above: Performed By: #### C BC #### [facility] [address] [address] [address] Roosevelt Verde Urea nitrogen [Mass/Vol] 22.0 mg/dL Critically high 7.0-18.0 [facility] Comment on above: Performed By: #### C BC #### [facility] [address] [address] [address] Roosevelt Verde Urea nitrogen/Creatinine [Mass ratio] 14.5 mg/mg Normal [facility] Comment on above: Performed By: #### C BC #### [facility] [address] [address] [address] Roosevelt Verde SED RATE [facility] 2022 SED RATE 32 mm/hr Critically high <=20 [facility] Comment on above: Performed By: #### C BC #### [facility] [address] [address] [address] Roosevelt Verde CBC AUTO DIFFon 07-20-2022 BASO # 0.0 103/ul Normal 0.0-0.1 [facility] Comment on above: Performed By: #### C BC #### [facility] [address] [place] [address] Dr. Roosevelt Verde Basophils/100 WBC (Bld) 0.5 % Normal 0.2-2.0 [facility] Comment on above: Performed By: #### C BC #### [facility] [address] [place] [address] Dr. Roosevelt Verde EO # 0.0 103/ul Normal 0.0-0.7 [facility] Comment on above: Performed By: #### C BC #### [facility] [address] [place] [address] Dr. Roosevelt Verde Eosinophils/100 WBC (Bld) 0.5 % Critically low 0.9-7.0 [facility] Comment on above: Performed By: #### C BC #### [facility] [address] [place] [address] Dr. Roosevelt Verde Erythrocyte distribution width (RBC) [Ratio] 13.1 % Normal 11.0-15.0 [facility] Comment on above: Performed By: #### C BC #### [facility] [address] [place] [address] Dr. Roosevelt Verde Hematocrit (Bld) [Volume fraction] 39.2 % Critically low 42.0-54.0 [facility] Comment on above: Performed By: #### C BC #### [facility] [address] [place] [address] Dr. Roosevelt Verde Hemoglobin (Bld) [Mass/Vol] 12.7 g/dL Critically low 14.0-18.0 [facility] Comment on above: Performed By: #### C BC #### [facility] [address] [place] [address] Dr. Roosevelt Verde IG # 0.03 10e3/ul Normal 0.00-0.03 [facility] Comment on above: Performed By: #### C BC #### [facility] [address] [place] [address] Dr. Roosevelt Verde IG % 0.4 % Normal 0.0-0.5 [facility] Comment on above: Performed By: #### C BC #### [facility] [address] [place] [address] Dr. Roosevelt Verde LYMPH # 1.6 103/ul Normal 1.2-3.8 [facility] Comment on above: Performed By: #### C BC #### [facility] [address] [place] [address] Dr. Roosevelt Verde Lymphocytes/100 WBC (Bld) 21.7 % Normal 20.5-60.0 [facility] Comment on above: Performed By: #### C BC #### [facility] [address] [place] [address] Dr. Roosevelt Verde MANUAL DIFF REQ NO Normal [facility] Comment on above: Performed By: #### C BC #### [facility] [address] [place] [address] Dr. Roosevelt Verde MCH (RBC) [Entitic mass] 34.0 pg Normal 25.9-34.0 [facility] Comment on above: Performed By: #### C BC #### [facility] [address] [place] [address] Dr. Roosevelt Verde MCHC (RBC) [Mass/Vol] 32.4 g/dL Normal 29.9-35.2 [facility] Comment on above: Performed By: #### C BC #### [facility] [address] [place] [address] Dr. Roosevelt Verde MCV (RBC) [Entitic vol] 104.8 fL Critically high 80.0-94.0 [facility] Comment on above: Performed By: #### C BC #### [facility] [address] [place] [address] Dr. Roosevelt Verde MONO # 0.6 103/ul Normal 0.3-0.8 [facility] Comment on above: Performed By: #### C BC #### [facility] [address] [place] [address] Dr. Roosevelt Verde Monocytes/100 WBC (Bld) 8.2 % Normal 1.7-12.0 [facility] Comment on above: Performed By: #### C BC #### [facility] [address] [place] [address] Dr. Roosevelt Verde NEUT # 5.1 103/ul Normal 1.4-6.5 [facility] Comment on above: Performed By: #### C BC #### [facility] [address] [place] [address] Dr. Roosevelt Verde Neutrophils/100 WBC (Bld) 68.7 % Normal 43.0-75.0 [facility] Comment on above: Performed By: #### C BC #### [facility] [address] [place] [address] Dr. Roosevelt eVrde Platelet mean volume (Bld) [Entitic vol] 9.2 fL Critically low 9.5-13.5 [facility] Comment on above: Performed By: #### C BC #### [facility] [address] [place] [address] Dr. Roosevelt Verde PLT 286 103/ul Normal 150-450 [facility] Comment on above: Performed By: #### C BC #### [facility] [address] [place] [address] Dr. Roosevelt Verde RBC 3.74 106/ul Critically low 4.70-6.10 [facility] Comment on above: Performed By: #### C BC #### [facility] [address] [place] [address] Dr. Roosevelt Verde WBC 7.5 103/ul Normal 4.0-11.0 [facility] Comment on above: Performed By: #### C BC #### [facility] [address] [place] [address] Dr. Roosevelt Verde CREATININEon 07-20-2022 Creatinine [Mass/Vol] 1.53 mg/dL Critically high 0.70-1.30 [facility] Comment on above: Performed By: #### C QUE, CRP, ALT, AST #### [facility] [address] [place] [address] Dr. Roosevelt Verde EGFR-AF DJIBOUTIAN 57 mL/min/1.73m2 Critically low >=60 [facility] Comment on above: Performed By: #### C QUE, CRP, ALT, AST #### [facility] [address] [place] [address] Dr. Roosevelt Verde EGFR-NON AF DJIBOUTIAN 47 mL/min/1.73m2 Critically low >=60 [facility] Comment on above: Performed By: #### C QUE, CRP, ALT, AST #### [facility] [address] [place] [address] Dr. Roosevelt Verde CRPon 07-20-2022 CRP [Mass/Vol] mg/L Normal <=1.0 [facility] Comment on above: Performed By: #### C QUE, CRP, ALT, AST #### [facility] [address] [place] [address] Dr. Roosevelt Verde SED RATE WESTERGRENon 2022 SED RATE 9 mm/hr Normal <=20 [facility] Comment on above: Performed By: #### C BC #### [facility] [address] [place] [address] Dr. Roosevelt Verde SGOTon 07-20-2022 AST [Catalytic activity/Vol] 18 U/L Normal 15-37 [facility] Comment on above: Performed By: #### C QUE, CRP, ALT, AST #### [facility] [address] [place] [address] Dr. Roosevelt Verde SGPTon 07-20-2022 ALT [Catalytic activity/Vol] 44 U/L Normal 16-63 [facility] Comment on above: Performed By: #### C QUE, CRP, ALT, AST #### [facility] [address] [place] [address] Dr. Roosevelt Verde CBC AUTO DIFFon 05-23-2022 BASO # 0.1 103/ul Normal 0.0-0.1 [facility] Comment on above: Performed By: #### C BC #### [facility] [address] [place] [address] Dr. Roosevelt Verde Basophils/100 WBC (Bld) 0.5 % Normal 0.2-2.0 [facility] Comment on above: Performed By: #### C BC #### [facility] [address] [place] [address] Dr. Roosevelt Verde EO # 0.1 103/ul Normal 0.0-0.7 [facility] Comment on above: Performed By: #### C BC #### [facility] [address] [place] [address] Dr. Roosevelt Verde Eosinophils/100 WBC (Bld) 0.6 % Critically low 0.9-7.0 [facility] Comment on above: Performed By: #### C BC #### [facility] [address] [place] [address] Dr. Roosevelt Verde Erythrocyte distribution width (RBC) [Ratio] 14.0 % Normal 11.0-15.0 [facility] Comment on above: Performed By: #### C BC #### [facility] [address] [place] [address] Dr. Roosevelt Verde Hematocrit (Bld) [Volume fraction] 37.3 % Critically low 42.0-54.0 [facility] Comment on above: Performed By: #### C BC #### [facility] [address] [place] [address] Dr. Roosevelt Verde Hemoglobin (Bld) [Mass/Vol] 12.2 g/dL Critically low 14.0-18.0 [facility] Comment on above: Performed By: #### C BC #### [facility] [address] [place] [address] Dr. Roosevelt Verde IG # 0.03 10e3/ul Normal 0.00-0.03 [facility] Comment on above: Performed By: #### C BC #### [facility] [address] [place] [address] Dr. Roosevelt Verde IG % 0.3 % Normal 0.0-0.5 [facility] Comment on above: Performed By: #### C BC #### [facility] [address] [place] [address] Dr. Roosevelt Verde LYMPH # 1.6 103/ul Normal 1.2-3.8 [facility] Comment on above: Performed By: #### C BC #### [facility] [address] [place] [address] Dr. Roosevelt Vedre Lymphocytes/100 WBC (Bld) 16.5 % Critically low 20.5-60.0 [facility] Comment on above: Performed By: #### C BC #### [facility] [address] [place] [address] Dr. Roosevelt Verde MANUAL DIFF REQ NO Normal [facility] Comment on above: Performed By: #### C BC #### [facility] [address] [place] [address] Dr. Roosevelt Verde MCH (RBC) [Entitic mass] 35.1 pg Critically high 25.9-34.0 [facility] Comment on above: Performed By: #### C BC #### [facility] [address] [place] [address] Dr. Rooseevlt Verde MCHC (RBC) [Mass/Vol] 32.7 g/dL Normal 29.9-35.2 [facility] Comment on above: Performed By: #### C BC #### [facility] [address] [place] [address] Dr. Roosevelt Verde MCV (RBC) [Entitic vol] 107.2 fL Critically high 80.0-94.0 [facility] Comment on above: Result Comment: 1+ m acrocytosis Performed By: #### C BC #### [facility] [address] [place] [address] Dr. Roosevelt Verde MONO # 0.7 103/ul Normal 0.3-0.8 [facility] Comment on above: Performed By: #### C BC #### [facility] [address] [place] [address] Dr. Roosevelt Verde Monocytes/100 WBC (Bld) 7.6 % Normal 1.7-12.0 [facility] Comment on above: Performed By: #### C BC #### [facility] [address] [place] [address] Dr. Roosevelt Verde NEUT # 7.0 103/ul Critically high 1.4-6.5 [facility] Comment on above: Performed By: #### C BC #### [facility] [address] [address] [address] Roosevelt Verde Neutrophils/100 WBC (Bld) 74.5 % Normal 43.0-75.0 [facility] Comment on above: Performed By: #### C BC #### [facility] [address] [address] [address] Roosevelt Verde Platelet mean volume (Bld) [Entitic vol] 9.2 fL Critically low 9.5-13.5 [facility] Comment on above: Performed By: #### C BC #### [facility] [address] [address] [address] Roosevelt Verde PLT 296 103/ul Normal 150-450 [facility] Comment on above: Performed By: #### C BC #### [facility] [address] [address] [address] Roosevelt Verde RBC 3.48 106/ul Critically low 4.70-6.10 [facility] Comment on above: Performed By: #### C BC #### [facility] [address] [address] [address] Roosevelt Verde WBC 9.4 103/ul Normal 4.0-11.0 [facility] Comment on above: Performed By: #### C BC #### [facility] [address] [address] [address] Roosevelt Verde CREATININEon 05-23-2022 Creatinine [Mass/Vol] 1.33 mg/dL Critically high 0.70-1.30 [facility] Comment on above: Performed By: #### A ST, CREA, CRP, ALT ####[facility] [address] [address]Dr. Roosevelt Verde EGFR-AF DJIBOUTIAN >60 Normal >=[address] [facility] Comment on above: Performed By: #### A ST, CREA, CRP, ALT ####[facility] [address] [id number] Roosevelt Verde EGFR-NON AF DJIBOUTIAN 56 mL/min/1.73m2 Critically low >=60 [facility] Comment on above: Performed By: #### A ST, CREA, CRP, ALT ####[facility] [address] [id number] Roosevelt Verde CRPon 05-23-2022 CRP 0.3 mg/dL Normal <=1.0 [facility] Comment on above: Performed By: #### A ST, CREA, CRP, ALT ####[facility] [address] [id number] Roosevelt Verde SED RATE WESTERGRENon 2022 SED RATE 11 mm/hr Normal <=20 [facility] Comment on above: Performed By: #### S EDR ####[facility] [address] [address]Dr. Roosevelt Verde SGOTon 05-23-2022 AST [Catalytic activity/Vol] 20 U/L Normal 15-37 [facility] Comment on above: Performed By: #### A ST, CREA, CRP, ALT ####[facility] [address] [address]Dr. Roosevelt Verde SGPTon 05-23-2022 ALT [Catalytic activity/Vol] 36 U/L Normal 16-63 [facility] Comment on above: Performed By: #### A ST, CREA, CRP, ALT ####[facility] [address] [address]Dr. Roosevelt Verde QUANTIFERON TB GOLD PLUSon 1 05-24-2021 QuantiFERON Criteria Comment Normal [facility] Comment on above: Result Comment: Cayden [...] test. Performed By: #### C BC #### [facility] [address] [address] [address] Roosevelt Verde QuantiFERON Incubation Incubation performed. Normal [facility] Comment on above: Performed By: #### C BC #### [facility] [address] [address] [address] Roosevelt Verde QuantiFERON Mitogen Value 2.17 IU/mL Normal [facility] Comment on above: Performed By: #### C BC #### [facility] [address] [address] [address] Roosevelt Verde QuantiFERON Nil Value 0.03 IU/mL Normal [facility] Comment on above: Performed By: #### C BC #### [facility] [address] [address] [address] Roosevelt Verde QuantiFERON TB1 Ag Value 0.04 IU/mL Normal [facility] Comment on above: Performed By: #### C BC #### [facility] [address] [place] [address] Dr. Roosevelt Verde QuantiFERON TB2 Ag Value 0.03 IU/mL Normal [facility] Comment on above: Performed By: #### C BC #### [facility] [address] [address] [address] Roosevelt Verde QuantiFERON-TB Gold Plus Negative Normal Negative [facility] Comment on above: Result Comment: No r esponse to M tuberculosis antigens detected. Infection with M tuberculosis is unlikely, but high risk individuals should be considered for additional testing (ATS/IDSA/CDC Clinical Practice Guidelines, 2017). The reference range is an Antigen minus Nil result of <0.35 IU/mL. Chemiluminescence immunoassay methodology Performed By: #### C BC #### [facility] [address] [place] [address] Dr. Roosevelt Verde HEP B SURFACE ANTIGEN SCREEN on 03-22-2022 HBsAg Screen Negative Normal Negative [facility] Comment on above: Performed By: #### H BSANS ####[facility] [address] [address]Dr. Roosevelt Verde HEPATITIS C ANTIBODYon 03-22 Hep C Virus Ab <0.1 Normal 0.0-0.9 [facility] Comment on above: Result Comment: Nega [...] Hepatitis C Virus (HCV) RNA, Diagnosis, DAVON (377643) and Hepatitis C Virus (HCV) Antibody with reflex to Quantitative Real-time PCR (122393). Performed By: #### H CV ####[facility] [address] [address]Dr. Roosevelt Verde HIV 1 AND 2 WITH REFLEXon HIV Screen 4th Generation wRfx Non-Reactive Normal Non Reactive [facility] Comment on above: Result Comment: HIV Negative HIV-1/HIV-2 antibodies and HIV-1 p24 antigen were NOT detected. There is no laboratory evidence of HIV infection. Performed By: #### C BC #### [facility] [address] [place] [address] Dr. Roosevelt Verde CBC AUTO DIFFon 03-21-2022 BASO # 0.0 103/ul Normal 0.0-0.1 [facility] Comment on above: Performed By: #### C BC #### [facility] [address] [place] [address] Dr. Roosevelt Verde Basophils/100 WBC (Bld) 0.3 % Normal 0.2-2.0 [facility] Comment on above: Performed By: #### C BC #### [facility] [address] [place] [address] Dr. Roosevelt Verde EO # 0.1 103/ul Normal 0.0-0.7 [facility] Comment on above: Performed By: #### C BC #### [facility] [address] [place] [address] Dr. Roosevelt Verde Eosinophils/100 WBC (Bld) 1.1 % Normal 0.9-7.0 [facility] Comment on above: Performed By: #### C BC #### [facility] [address] [place] [address] Dr. Roosevelt Verde Erythrocyte distribution width (RBC) [Ratio] 14.6 % Normal 11.0-15.0 [facility] Comment on above: Performed By: #### C BC #### [facility] [address] [place] [address] Dr. Roosevelt Verde Hematocrit (Bld) [Volume fraction] 34.7 % Critically low 42.0-54.0 [facility] Comment on above: Performed By: #### C BC #### [facility] [address] [place] [address] Dr. Roosevelt Verde Hemoglobin (Bld) [Mass/Vol] 11.4 g/dL Critically low 14.0-18.0 [facility] Comment on above: Performed By: #### C BC #### [facility] [address] [place] [address] Dr. Roosevelt Verde IG # 0.02 10e3/ul Normal 0.00-0.03 [facility] Comment on above: Performed By: #### C BC #### [facility] [address] [place] [address] Dr. Roosevelt Verde IG % 0.3 % Normal 0.0-0.5 [facility] Comment on above: Performed By: #### C BC #### [facility] [address] [place] [address] Dr. Roosevelt Verde LYMPH # 1.1 103/ul Critically low 1.2-3.8 [facility] Comment on above: Performed By: #### C BC #### [facility] [address] [place] [address] Dr. Roosevelt Verde Lymphocytes/100 WBC (Bld) 16.9 % Critically low 20.5-60.0 [facility] Comment on above: Performed By: #### C BC #### [facility] [address] [place] [address] Dr. Roosevelt Verde MANUAL DIFF REQ NO Normal [facility] Comment on above: Performed By: #### C BC #### [facility] [address] [place] [address] Dr. Roosevelt Verde MCH (RBC) [Entitic mass] 33.8 pg Normal 25.9-34.0 [facility] Comment on above: Performed By: #### C BC #### [facility] [address] [place] [address] Dr. Roosevelt Verde MCHC (RBC) [Mass/Vol] 32.9 g/dL Normal 29.9-35.2 [facility] Comment on above: Performed By: #### C BC #### [facility] [address] [place] [address] Dr. Roosevelt Verde MCV (RBC) [Entitic vol] 103.0 fL Critically high 80.0-94.0 [facility] Comment on above: Performed By: #### C BC #### [facility] [address] [place] [address] Dr. Roosevelt Verde MONO # 0.6 103/ul Normal 0.3-0.8 [facility] Comment on above: Performed By: #### C BC #### [facility] [address] [place] [address] Dr. Roosevelt Verde Monocytes/100 WBC (Bld) 9.8 % Normal 1.7-12.0 [facility] Comment on above: Performed By: #### C BC #### [facility] [address] [place] [address] Dr. Roosevelt Verde NEUT # 4.6 103/ul Normal 1.4-6.5 [facility] Comment on above: Performed By: #### C BC #### [facility] [address] [place] [address] Dr. Roosevelt Verde Neutrophils/100 WBC (Bld) 71.6 % Normal 43.0-75.0 [facility] Comment on above: Performed By: #### C BC #### [facility] [address] [place] [address] Dr. Roosevelt Verde Platelet mean volume (Bld) [Entitic vol] 9.6 fL Normal 9.5-13.5 [facility] Comment on above: Performed By: #### C BC #### [facility] [address] [place] [address] Dr. Roosevelt Verde PLT 327 103/ul Normal 150-450 [facility] Comment on above: Performed By: #### C BC #### [facility] [address] [place] [address] Dr. Roosevelt Verde RBC 3.37 106/ul Critically low 4.70-6.10 [facility] Comment on above: Performed By: #### C BC #### [facility] [address] [place] [address] Dr. Roosevelt Verde WBC 6.5 103/ul Normal 4.0-11.0 [facility] Comment on above: Performed By: #### C BC #### [facility] [address] [place] [address] Dr. Roosevelt Verde CREATININEon 03-21-2022 Creatinine [Mass/Vol] 2.19 mg/dL Critically high 0.70-1.30 [facility] Comment on above: Performed By: #### C BC #### [facility] [address] [place] [address] Dr. Roosevelt Verde EGFR-AF DJIBOUTIAN 38 mL/min/1.73m2 Critically low >=60 [facility] Comment on above: Performed By: #### C BC #### [facility] [address] [place] [address] Dr. Roosevelt Verde EGFR-NON AF DJIBOUTIAN 31 mL/min/1.73m2 Critically low >=60 [facility] Comment on above: Performed By: #### C BC #### [facility] [address] [place] [address] Dr. Roosevelt Verde CRPon 03-21-2022 CRP 0.4 mg/dL Normal <=1.0 [facility] Comment on above: Performed By: #### C BC #### [facility] [address] [place] [address] Dr. Roosevelt Verde SED RATE [place] 2021 SED RATE 49 mm/hr Critically high <=20 [facility] Comment on above: Performed By: #### S EDR #### [facility] [address] [place] [address] Dr. Roosevelt Wong 03-21-2022 AST [Catalytic activity/Vol] 12 U/L Critically low 15-37 [facility] Comment on above: Performed By: #### C BC #### [facility] [address] [place] [address] Dr. Roosevelt PAGANJania 03-21-2022 ALT [Catalytic activity/Vol] 27 U/L Normal 16-63 [facility] Comment on above: Performed By: #### C BC #### [facility] [address] [place] [address] Dr. Roosevelt Verde Covid-19 PCR ([facility])on SARS-CoV-2 (COVID-19) RNA DAVON+probe Ql (Unsp spec) Not detected Normal NOT DETECTED [facility] Comment on above: Result Comment: This test is not yet approved or cleared by the [place] FDA. When there are no FDA-approved or cleared tests available, and other criteria are met, FDA can make tests available under an emergency access mechanism called an Emergency Use Authorization (EUA). The EUA for this test is supported by the Host/Hostess Head of Health and Human Service's (HHS's) declaration [...] #### C QUE, CRP, ALT, AST #### [facility] [address] [place] [address] Dr. Roosevelt Verde INFLUENZA A AND B AGon 03-08 INFLUBNEGH SEE BELOW Normal [facility] Comment on above: Result Comment: Nega tive for Flu B protein antigen. Infection due to Flu B cannot be ruled out. Flu B antigen in the sample may be below the detection limit of the test. Performed By: #### C BC #### [facility] [address] [address] [address] Roosevelt Verde INFLUENZA A AG Positive Abnormal NEGATIVE SEE COMMENT [facility] Comment on above: Performed By: #### C BC #### [facility] [address] [address] [address] Roosevelt Verde INFLUENZA B AG Negative Normal NEGATIVE SEE COMMENT [facility] Comment on above: Performed By: #### C BC #### [facility] [address] [address] [address] Roosevelt Verde INFLUPOSH SEE BELOW Normal [facility] Comment on above: Result Comment: NOTE : Live attenuated influenzae vaccine viruses can cause a positive result for a rapid influenza diagnostic test if administered up to 7 days prior to rapid testing. Performed By: #### C BC #### [facility] [address] [address] [address] Roosevelt Verde INTERNAL CONTROLS Within Normal Limits Normal Within Normal Limits [facility] Comment on above: Performed By: #### C BC #### [facility] [address] [address] [address] Roosevelt Verde BUNon 01-27-2022 Urea nitrogen [Mass/Vol] 30.0 mg/dL Critically high 7.0-18.0 [facility] Comment on above: Performed By: #### C QUE, BUN ####[facility] [address] [address]Dr. Roosevelt Verde CREATININEon 01-27-2022 Creatinine [Mass/Vol] 2.55 mg/dL Critically high 0.70-1.30 [facility] Comment on above: Performed By: #### C QUE, BUN ####[facility] [address] [address]Dr. Roosevelt Verde EGFR-AF DJIBOUTIAN 32 mL/min/1.73m2 Critically low >=60 [facility] Comment on above: Performed By: #### C QUE, BUN ####[facility] [address] [place] [address]Dr. Roosevelt Verde EGFR-NON AF DJIBOUTIAN 26 mL/min/1.73m2 Critically low >=60 [facility] Comment on above: Performed By: #### C QUE, BUN ####[facility] [address] [place] [address]Dr. Roosevelt Verde UA RANDOM W/MICROSCOPICon BACTERIA NONE SEEN Normal NONE SEEN [facility] Comment on above: Performed By: #### U AMIC #### [facility] [address] [address] [address] Roosevelt Verde Bilirubin Ql (U) Negative Normal NEGATIVE [facility] Comment on above: Performed By: #### U AMIC #### [facility] [address] [address] [address] Roosevelt Verde CAST SEEN Abnormal NONE SEEN [facility] Comment on above: Performed By: #### U AMIC #### [facility] [address] [place] [address] Dr. Roosevelt Verde Clarity (U) CLEAR Normal CLEAR [facility] Comment on above: Performed By: #### U AMIC #### [facility] [address] [place] [address] Dr. Roosevelt Verde Color (U) DK. YELLOW Normal YELLOW [facility] Comment on above: Performed By: #### U AMIC #### [facility] [address] [address] [address] Roosevelt Verde Crystals LM Nom (Urine sed) NONE SEEN Normal NONE SEEN [facility] Comment on above: Performed By: #### U AMIC #### [facility] [address] [address] [address] Roosevelt Verde Epithelial cells LM Ql (Urine sed) NONE SEEN Normal NONE SEEN /RARE [facility] Comment on above: Performed By: #### U AMIC #### [facility] [address] [place] [address] Dr. Roosevelt Verde Glucose Ql (U) Negative Normal NEGATIVE [facility] Comment on above: Performed By: #### U AMIC #### [facility] [address] [address] [address] Roosevelt Verde Hemoglobin Ql (U) Negative Normal NEGATIVE [facility] Comment on above: Performed By: #### U AMIC #### [facility] [address] [address] [address] Roosevelt Verde Ketones Ql (U) TRACE Abnormal NEGATIVE [facility] Comment on above: Performed By: #### U AMIC #### [facility] [address] [address] [address] Roosevelt Verde LEUKOCYTES Negative Normal NEGATIVE [facility] Comment on above: Performed By: #### U AMIC #### [facility] [address] [address] [address] Roosevelt Verde MUCOUS NONE SEEN Normal NONE SEEN [facility] Comment on above: Performed By: #### U AMIC #### [facility] [address] [address] [address] Roosevelt Verde Nitrite Ql (U) Negative Normal NEGATIVE [facility] Comment on above: Performed By: #### U AMIC #### [facility] [address] [address] [address] Roosevelt Verde pH (U) 6.0 [pH] Normal 5-9 [facility] Comment on above: Performed By: #### U AMIC #### [facility] [address] [address] [address] Roosevelt Verde RBC NONE SEEN Abnormal 0-2 [facility] Comment on above: Performed By: #### U AMIC #### [facility] [address] [address] [address] Roosevelt Verde SPEC GRAVITY 1.025 Normal 1.005-<=1.025 [facility] Comment on above: Performed By: #### U AMIC #### [facility] [address] [address] [address] Roosevelt Verde UA PROTEIN Negative Normal NEGATIVE/ TRACE [facility] Comment on above: Performed By: #### U AMIC #### [facility] [address] [address] [address] Roosevelt Verde Urobilinogen Qn (U) 0.2 {Gogo'U}/dL Normal 0.2 - 1. 0 [facility] Comment on above: Performed By: #### U AMIC #### [facility] [address] [place], [place] [address] Dr. Roosevelt Verde WBC 0-2 Abnormal NONE SEEN [facility] Comment on above: Performed By: #### U AMIC #### [facility] [address] [place], [place] [address] Dr. Roosevelt Verde CBC AUTO DIFFon 01-12-2022 BASO # 0.0 103/ul Normal 0.0-0.1 [facility] Comment on above: Performed By: #### C BC ####[facility] [address] [place] [id number] Verde Basophils/100 WBC (Bld) 0.6 % Normal 0.2-2.0 [facility] Comment on above: Performed By: #### C BC ####[facility] [address] [place] [address]DrMichael Verde EO # 0.1 103/ul Normal 0.0-0.7 [facility] Comment on above: Performed By: #### C BC ####[facility] [address] [place] [id number] Verde Eosinophils/100 WBC (Bld) 1.5 % Normal 0.9-7.0 [facility] Comment on above: Performed By: #### C BC ####[facility] [address] [place] [id number] Verde Erythrocyte distribution width (RBC) [Ratio] 13.5 % Normal 11.0-15.0 [facility] Comment on above: Performed By: #### C BC ####[facility] [address] [place] [id number] Verde Hematocrit (Bld) [Volume fraction] 36.6 % Critically low 42.0-54.0 [facility] Comment on above: Performed By: #### C BC ####[facility] [address] [place] [id number] Verde Hemoglobin (Bld) [Mass/Vol] 11.8 g/dL Critically low 14.0-18.0 [facility] Comment on above: Performed By: #### C BC ####[facility] [address] [place] [address]DrMichael Verde IG # 0.03 10e3/ul Normal 0.00-0.03 [facility] Comment on above: Performed By: #### C BC ####[facility] [address] [place] [address]DrMichael Verde IG % 0.5 % Normal 0.0-0.5 [facility] Comment on above: Performed By: #### C BC ####[facility] [address] [place] [address]DrMichael Verde LYMPH # 1.5 103/ul Normal 1.2-3.8 [facility] Comment on above: Performed By: #### C BC ####[facility] [address] [place] [address]DrMichael Verde Lymphocytes/100 WBC (Bld) 22.3 % Normal 20.5-60.0 [facility] Comment on above: Performed By: #### C BC ####[facility] [address] [place] [address]DrMichael Verde MANUAL DIFF REQ NO Normal [facility] Comment on above: Performed By: #### C BC ####[facility] [address] [place] [address]Dr. Roosevelt Verde MCH (RBC) [Entitic mass] 34.2 pg Critically high 25.9-34.0 [facility] Comment on above: Performed By: #### C BC ####[facility] [address] [place] [address]Dr. Roosevelt Verde MCHC (RBC) [Mass/Vol] 32.2 g/dL Normal 29.9-35.2 [facility] Comment on above: Performed By: #### C BC ####[facility] [address] [place] [address]Dr. Roosevelt Verde MCV (RBC) [Entitic vol] 106.1 fL Critically high 80.0-94.0 [facility] Comment on above: Result Comment: 2+ m acrocytosis Performed By: #### C BC ####[facility] [address] [place] [id number]. Roosevelt Verde MONO # 0.6 103/ul Normal 0.3-0.8 [facility] Comment on above: Performed By: #### C BC ####[facility] [address] [place] [id number]. Roosevelt Verde Monocytes/100 WBC (Bld) 8.7 % Normal 1.7-12.0 [facility] Comment on above: Performed By: #### C BC ####[facility] [address] [place] [id number]. Roosevelt Verde NEUT # 4.4 103/ul Normal 1.4-6.5 [facility] Comment on above: Performed By: #### C BC ####[facility] [address] [place] [address]Dr. Roosevelt Verde Neutrophils/100 WBC (Bld) 66.4 % Normal 43.0-75.0 [facility] Comment on above: Performed By: #### C BC ####[facility] [address] [place] [id number]. Roosevelt Verde Platelet mean volume (Bld) [Entitic vol] 9.3 fL Critically low 9.5-13.5 [facility] Comment on above: Performed By: #### C BC ####[facility] [address] [place] [id number]. Roosevelt Verde PLT 325 103/ul Normal 150-450 [facility] Comment on above: Performed By: #### C BC ####[facility] [address] [place] [phone]. Roosevelt Verde RBC 3.45 106/ul Critically low 4.70-6.10 [facility] Comment on above: Performed By: #### C BC ####[facility] [address] [place] [id number]. Roosevelt Verde WBC 6.6 103/ul Normal 4.0-11.0 [facility] Comment on above: Performed By: #### C BC ####[facility] [address] [place] [address]Dr. Roosevelt Verde CREATININEon 01-12-2022 Creatinine [Mass/Vol] 1.89 mg/dL Critically high 0.70-1.30 [facility] Comment on above: Performed By: #### C QUE, CRP, ALT, AST #### [facility] [address] [address] [address] Roosevelt Verde EGFR-AF DJIBOUTIAN 45 mL/min/1.73m2 Critically low >=60 [facility] Comment on above: Performed By: #### C QUE, CRP, ALT, AST #### [facility] [address] [place] [address] Dr. Roosevelt Verde EGFR-NON AF DJIBOUTIAN 37 mL/min/1.73m2 Critically low >=60 [facility] Comment on above: Performed By: #### C QUE, CRP, ALT, AST #### [facility] [address] [address] [address] Roosevelt Verde CRPon 01-12-2022 CRP 0.2 mg/dL Normal <=1.0 [facility] Comment on above: Performed By: #### C QUE, CRP, ALT, AST #### [facility] [address] [address] [address] Roosevelt Verde SED RATE [facility] 2021 SED RATE 24 mm/hr Critically high <=20 [facility] Comment on above: Performed By: #### S EDR ####[facility] [address] [place] [address]Dr. Roosevelt Verde SGOTon 01-12-2022 AST [Catalytic activity/Vol] 12 U/L Critically low 15-37 [facility] Comment on above: Performed By: #### C QUE, CRP, ALT, AST #### [facility] [address] [address] [address] Roosevelt Verde SGPTon 01-12-2022 ALT [Catalytic activity/Vol] 26 U/L Normal 16-63 [facility] Comment on above: Performed By: #### C QUE, CRP, ALT, AST #### [facility] [address] [address] [address] Roosevelt Verde VIT D, 1,25 DIHYDROXon 01-11 VIT. D 1,[address] [facility] Comment on above: Result Comment: Pl ease note reference interval change Reference range: 24.8 to 81.5 Unit: pg/mL PERFORMED AT [facility] Performed By: #### L VD125 #### Testing performed at [facility] 25 0H VITAMIN D LEVELon 12-31 25 0H VITAMIN D LEVEL 40.4 NG/ML [facility] Comment on above: Result Comment: DEFICIENT <20 NG/ML INSUFFICIENT 20-<30 NG/ML SUFFICIENT 30-100 NG/ML POTENTIAL TOXICITY >100 NG/ML [facility] 01-10-2022 AST [Catalytic activity/Vol] 22 U/L Normal 17-59 [facility] Comment on above: Performed By: #### L VD125 #### Testing performed at [facility] CREATININE,SERUMon 2 Creatinine [Mass/Vol] 1.78 mg/dL High 0.7-1.2 [facility] Comment on above: Performed By: #### L VD125 #### Testing performed at [facility] EST. GFR, 51 ml/min/1.73sq.m [facility] Comment on above: Performed By: #### L VD125 #### Testing performed at [facility] EST. GFR,Non 42 ml/min/1.73sq.m [facility] Comment on above: Performed By: #### L VD125 #### Testing performed at [facility] GFR Information Average GFR for 50-59 years old = 93. 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 Kidney failure, GFR = <15. The GFR estimate is not adjusted for extreme body surface area or acute process, nor has it been validated for women or ethnic groups other than and . Performed By: #### L VD125 #### Testing performed at [facility] VITAMIN D (25-HYDROXY,TOTAL) on 01-10-2022 25-hydroxyvitamin D [Mass/Vol] 40.4 NG/ML [facility] Comment on above: DEFICIENT <20 NG/ML INSUFFICIENT 20-<30 NG/ML SUFFICIENT 30-100 NG/ML POTENTIAL TOXICITY >100 NG/ML [facility] CBC AUTO DIFFon 11-17-2021 BASO # 0.0 103/ul Normal 0.0-0.1 [facility] Comment on above: Performed By: #### C BC #### [facility] [address] [place] [address] Dr. Roosevelt Verde Basophils/100 WBC (Bld) 0.6 % Normal 0.2-2.0 [facility] Comment on above: Performed By: #### C BC #### [facility] [address] [place] [address] Dr. Roosevelt Verde EO # 0.1 103/ul Normal 0.0-0.7 [facility] Comment on above: Performed By: #### C BC #### [facility] [address] [address] [address] Roosevelt Verde Eosinophils/100 WBC (Bld) 1.4 % Normal 0.9-7.0 [facility] Comment on above: Performed By: #### C BC #### [facility] [address] [address] [address] Roosevelt Verde Erythrocyte distribution width (RBC) [Ratio] 15.4 % Critically high 11.0-15.0 [facility] Comment on above: Performed By: #### C BC #### [facility] [address] [place] [address] Dr. Roosevelt Verde Hematocrit (Bld) [Volume fraction] 31.7 % Critically low 42.0-54.0 [facility] Comment on above: Performed By: #### C BC #### [facility] [address] [place] [address] Dr. Roosevelt Verde Hemoglobin (Bld) [Mass/Vol] 10.3 g/dL Critically low 14.0-18.0 [facility] Comment on above: Performed By: #### C BC #### [facility] [address] [place] [address] Dr. Roosevelt Verde IG # 0.01 10e3/ul Normal 0.00-0.03 [facility] Comment on above: Performed By: #### C BC #### [facility] [address] [place] [address] Dr. Roosevelt Verde IG % 0.2 % Normal 0.0-0.5 [facility] Comment on above: Performed By: #### C BC #### [facility] [address] [place] [address] Dr. Roosevelt Verde LYMPH # 1.2 103/ul Normal 1.2-3.8 [facility] Comment on above: Performed By: #### C BC #### [facility] [address] [place] [address] Dr. Roosevelt Verde Lymphocytes/100 WBC (Bld) 25.2 % Normal 20.5-60.0 [facility] Comment on above: Performed By: #### C BC #### [facility] [address] [place] [address] Dr. Roosevelt Verde MANUAL DIFF REQ NO Normal [facility] Comment on above: Performed By: #### C BC #### [facility] [address] [place] [address] Dr. Roosevelt Verde MCH (RBC) [Entitic mass] 35.0 pg Critically high 25.9-34.0 [facility] Comment on above: Performed By: #### C BC #### [facility] [address] [place] [address] Dr. Roosevelt Verde MCHC (RBC) [Mass/Vol] 32.5 g/dL Normal 29.9-35.2 [facility] Comment on above: Performed By: #### C BC #### [facility] [address] [place] [address] Dr. Roosevelt Verde MCV (RBC) [Entitic vol] 107.8 fL Critically high 80.0-94.0 [facility] Comment on above: Performed By: #### C BC #### [facility] [address] [address] [address] Roosevelt Verde MONO # 0.5 103/ul Normal 0.3-0.8 [facility] Comment on above: Performed By: #### C BC #### [facility] [address] [address] [address] Roosevelt Verde Monocytes/100 WBC (Bld) 11.0 % Normal 1.7-12.0 [facility] Comment on above: Performed By: #### C BC #### [facility] [address] [address] [address] Roosevelt Verde NEUT # 3.0 103/ul Normal 1.4-6.5 [facility] Comment on above: Performed By: #### C BC #### [facility] [address] [address] [address] Roosevelt Verde Neutrophils/100 WBC (Bld) 61.6 % Normal 43.0-75.0 [facility] Comment on above: Performed By: #### C BC #### [facility] [address] [address] [address] Roosevelt Verde Platelet mean volume (Bld) [Entitic vol] 8.6 fL Critically low 9.5-13.5 [facility] Comment on above: Performed By: #### C BC #### [facility] [address] [address] [address] Roosevelt Verde PLT 326 103/ul Normal 150-450 [facility] Comment on above: Performed By: #### C BC #### [facility] [address] [address] [address] Roosevelt Verde RBC 2.94 106/ul Critically low 4.70-6.10 [facility] Comment on above: Performed By: #### C BC #### [facility] [address] [address] [address] Roosevelt Verde WBC 4.9 103/ul Normal 4.0-11.0 [facility] Comment on above: Performed By: #### C BC #### [facility] [address] [address] [address] Roosevelt Verde CREATININEon 11-17-2021 Creatinine [Mass/Vol] 1.02 mg/dL Normal 0.70-1.30 [facility] Comment on above: Performed By: #### C QUE, ALT, AST, CRP ####[facility] [address] [place] [address]Dr. Roosevelt Ammon EGFR-AF DJIBOUTIAN >60 Normal >=[address] [facility] Comment on above: Performed By: #### C QUE, ALT, AST, CRP ####[facility] [address] [place] [address]Dr. Roosevelt Verde EGFR-NON AF DJIBOUTIAN >60 Normal >=60 [facility] Comment on above: Performed By: #### C QUE, ALT, AST, CRP ####[facility] [address] [place] [address]Dr. Roosevelt Verde CRPon 11-17-2021 CRP [Mass/Vol] mg/L Normal <=1.0 [facility] Comment on above: Performed By: #### C QUE, ALT, AST, CRP ####[facility] [address] [place] [address]Dr. Roosevelt Verde SED RATE [facility] 2021 SED RATE 3 mm/hr Normal <=20 [facility] Comment on above: Performed By: #### S EDR ####[facility] [address] [place] [address]Dr. Roosevelt Verde SGOTon 11-17-2021 AST [Catalytic activity/Vol] 13 U/L Critically low 15-37 [facility] Comment on above: Performed By: #### C QUE, ALT, AST, CRP ####[facility] [address] [place] [address]Dr. Roosevelt Verde SGPTon 11-17-2021 ALT [Catalytic activity/Vol] 22 U/L Normal 16-63 [facility] Comment on above: Performed By: #### C QUE, ALT, AST, CRP ####[facility] [address] [place], [place] [address]KeDr. Roosevelt Verde VIT D 25-OH [facility] 2021 Vitamin D, 25-Hydroxy 40.1 ng/mL Normal 30.0-100.0 [facility] Comment on above: Result Comment: Dunia min D deficiency has been defined by the [place] [employer] and an Endocrine Society practice guideline as a level of serum 25-OH vitamin D less than 20 ng/mL (1,2). The Endocrine Society went on to further define vitamin D insufficiency as a level between 21 and 29 ng/mL (2). 1. IOM ([place] [employer]). 2010. Dietary reference intakes for calcium and D. Elena [place]: The National Academies Press. 2. Roberta MF, Ofelia HOWARD, Alden BEARD, et al. Evaluation, treatment, and prevention of vitamin D deficiency: an Endocrine Society clinical practice guideline. JCEM. 2010; 96(7):1911-30. Performed By: #### C BC #### [facility] [address] [address] [address] Roosevelt Verde CBC AUTO DIFFon 10-23-2021 BASO # 0.1 103/ul Normal 0.0-0.1 [facility] Comment on above: Performed By: #### C QUE, CRP, ALT, AST #### [facility] [address] [address] [address] Roosevelt Verde Basophils/100 WBC (Bld) 0.5 % Normal 0.2-2.0 [facility] Comment on above: Performed By: #### C QUE, CRP, ALT, AST #### [facility] [address] [address] [address] Roosevelt Verde EO # 0.1 103/ul Normal 0.0-0.7 [facility] Comment on above: Performed By: #### C QUE, CRP, ALT, AST #### [facility] [address] [address] [address] Roosevelt Verde Eosinophils/100 WBC (Bld) 1.0 % Normal 0.9-7.0 [facility] Comment on above: Performed By: #### C QUE, CRP, ALT, AST #### [facility] [address] [place] [address] Dr. Roosevelt Verde Erythrocyte distribution width (RBC) [Ratio] 13.4 % Normal 11.0-15.0 [facility] Comment on above: Performed By: #### C QUE, CRP, ALT, AST #### [facility] [address] [place] [address] Dr. Roosevelt Verde Hematocrit (Bld) [Volume fraction] 43.1 % Normal 42.0-54.0 [facility] Comment on above: Performed By: #### C QUE, CRP, ALT, AST #### [facility] [address] [place] [address] Dr. Roosevelt Verde Hemoglobin (Bld) [Mass/Vol] 14.4 g/dL Normal 14.0-18.0 [facility] Comment on above: Performed By: #### C QUE, CRP, ALT, AST #### [facility] [address] [place] [address] Dr. Roosevelt Verde IG # 0.05 10e3/ul Critically high 0.00-0.03 [facility] Comment on above: Performed By: #### C QUE, CRP, ALT, AST #### [facility] [address] [place] [address] Dr. Roosevelt Verde IG % 0.5 % Normal 0.0-0.5 [facility] Comment on above: Performed By: #### C QUE, CRP, ALT, AST #### [facility] [address] [place] [address] Dr. Roosevelt Verde LYMPH # 1.9 103/ul Normal 1.2-3.8 [facility] Comment on above: Performed By: #### C QUE, CRP, ALT, AST #### [facility] [address] [place] [address] Dr. Roosevelt Verde Lymphocytes/100 WBC (Bld) 19.3 % Critically low 20.5-60.0 [facility] Comment on above: Performed By: #### C QUE, CRP, ALT, AST #### [facility] [address] [place] [address] Dr. Rooesvelt Verde MANUAL DIFF REQ NO Normal [facility] Comment on above: Performed By: #### C QUE, CRP, ALT, AST #### [facility] [address] [place] [address] Dr. Roosevelt Verde MCH (RBC) [Entitic mass] 34.4 pg Critically high 25.9-34.0 [facility] Comment on above: Performed By: #### C QEU, CRP, ALT, AST #### [facility] [address] [place] [address] Dr. Roosevelt Verde MCHC (RBC) [Mass/Vol] 33.4 g/dL Normal 29.9-35.2 [facility] Comment on above: Performed By: #### C QUE, CRP, ALT, AST #### [facility] [address] [place] [address] Dr. Roosevelt Verde MCV (RBC) [Entitic vol] 102.9 fL Critically high 80.0-94.0 [facility] Comment on above: Performed By: #### C QUE, CRP, ALT, AST #### [facility] [address] [place] [address] Dr. Roosevelt Verde MONO # 0.8 103/ul Normal 0.3-0.8 [facility] Comment on above: Performed By: #### C QUE, CRP, ALT, AST #### [facility] [address] [place] [address] Dr. Roosevelt Verde Monocytes/100 WBC (Bld) 8.7 % Normal 1.7-12.0 [facility] Comment on above: Performed By: #### C QUE, CRP, ALT, AST #### [facility] [address] [place] [address] Dr. Roosevelt Verde NEUT # 6.8 103/ul Critically high 1.4-6.5 [facility] Comment on above: Performed By: #### C QUE, CRP, ALT, AST #### [facility] [address] [place] [address] Dr. Roosevelt Verde Neutrophils/100 WBC (Bld) 70.0 % Normal 43.0-75.0 [facility] Comment on above: Performed By: #### C QUE, CRP, ALT, AST #### [facility] [address] [place] [address] Dr. Roosevelt Verde Platelet mean volume (Bld) [Entitic vol] 9.2 fL Critically low 9.5-13.5 [facility] Comment on above: Performed By: #### C QUE, CRP, ALT, AST #### [facility] [address] [place] [address] Dr. Roosevelt Verde PLT 328 103/ul Normal 150-450 [facility] Comment on above: Performed By: #### C QUE, CRP, ALT, AST #### [facility] [address] [place] [address] Dr. Roosevelt Verde RBC 4.19 106/ul Critically low 4.70-6.10 [facility] Comment on above: Performed By: #### C QUE, CRP, ALT, AST #### [facility] [address] [place] [address] Dr. Roosevelt Verde WBC 9.7 103/ul Normal 4.0-11.0 [facility] Comment on above: Performed By: #### C QUE, CRP, ALT, AST #### [facility] [address] [place] [address] Dr. Roosevelt Verde ER URINE PROFILEon 2 Bilirubin Ql (U) Negative Normal NEGATIVE [facility] Comment on above: Performed By: #### C BC #### [facility] [address] [place] [address] Dr. Roosevelt Verde Clarity (U) CLEAR Normal CLEAR [facility] Comment on above: Performed By: #### C BC #### [facility] [address] [place] [address] Dr. Roosevelt Verde Color (U) YELLOW Normal YELLOW [facility] Comment on above: Performed By: #### C BC #### [facility] [address] [place] [address] Dr. Yilan Verde ERUAHD A micrscopic examination will be performed if indicated. Normal [facility] Comment on above: Performed By: #### C BC #### [facility] [address] [place] [address] Dr. Roosevelt Verde Glucose Ql (U) Negative Normal NEGATIVE [facility] Comment on above: Performed By: #### C BC #### [facility] [address] [place] [address] Dr. Roosevelt Verde Hemoglobin Ql (U) Negative Normal NEGATIVE [facility] Comment on above: Performed By: #### C BC #### [facility] [address] [place] [address] Dr. Roosevelt Verde Ketones Ql (U) Negative Normal NEGATIVE [facility] Comment on above: Performed By: #### C BC #### [facility] [address] [place] [address] Dr. Roosevelt Verde LEUKOCYTES Negative Normal NEGATIVE [facility] Comment on above: Performed By: #### C BC #### [facility] [address] [place] [address] Dr. Roosevelt Verde Nitrite Ql (U) Negative Normal NEGATIVE [facility] Comment on above: Performed By: #### C BC #### [facility] [address] [place] [address] Dr. Roosevelt Verde pH (U) 5.5 [pH] Normal 5-9 [facility] Comment on above: Performed By: #### C BC #### [facility] [address] [place] [address] Dr. Roosevelt Verde SPEC GRAVITY 1.025 Normal 1.005-<=1.025 [facility] Comment on above: Performed By: #### C BC #### [facility] [address] [place] [address] Dr. Roosevelt Verde UA PROTEIN Negative Normal NEGATIVE/ TRACE [facility] Comment on above: Performed By: #### C BC #### [facility] [address] [place] [address] Dr. Roosevelt Verde UR MICRO IND NOT INDICATED Normal [facility] Comment on above: Result Comment: Prev iously reported as: INDICATED On 10/23/2021 16:15 By CV2 Performed By: #### C BC #### [facility] [address] [place] [address] Dr. Roosevelt Verde Urobilinogen Qn (U) 0.2 {Gogo'U}/dL Normal 0.2 - 1. 0 [facility] Comment on above: Performed By: #### C BC #### [facility] [address] [place] [address] Dr. Roosevelt Verde LIPASEon 10-23-2021 Lipase [Catalytic activity/Vol] 137.0 U/L Normal 73.0-393.0 [facility] Comment on above: Performed By: #### C BC #### [facility] [address] [place] [address] Dr. Roosevelt Verde PROF 14(COMP METB)on 022 Albumin [Mass/Vol] 4.0 g/dL Normal 3.4-5.0 [facility] Comment on above: Performed By: #### C BC #### [facility] [address] [place] [address] Dr. Roosevelt Verde Albumin/Globulin [Mass ratio] 1.3 {ratio} [facility] Comment on above: Performed By: #### C BC #### [facility] [address] [place] [address] Dr. Roosevelt Verde ALP [Catalytic activity/Vol] 73 U/L Normal 46-116 [facility] Comment on above: Performed By: #### C BC #### [facility] [address] [place] [address] Dr. Roosevelt Verde ALT [Catalytic activity/Vol] 35 U/L Normal 16-63 [facility] Comment on above: Performed By: #### C BC #### [facility] [address] [place] [address] Dr. Roosevelt Verde Anion gap [Moles/Vol] 9.9 mmol/L Normal [facility] Comment on above: Performed By: #### C BC #### [facility] [address] [place] [address] Dr. Roosevelt Verde AST [Catalytic activity/Vol] 16 U/L Normal 15-37 [facility] Comment on above: Performed By: #### C BC #### [facility] [address] [place] [address] Dr. Roosevelt Verde Bilirubin [Mass/Vol] 0.7 mg/dL Normal 0.2-1.0 [facility] Comment on above: Performed By: #### C BC #### [facility] [address] [address] [address] Roosevelt Verde Calcium [Mass/Vol] 8.8 mg/dL Normal 8.5-10.1 [facility] Comment on above: Performed By: #### C BC #### [facility] [address] [place] [address] Dr. Roosevelt Verde Chloride [Moles/Vol] 107 mmol/L Normal 98-107 [facility] Comment on above: Performed By: #### C BC #### [facility] [address] [place] [address] Dr. Roosevelt Verde CO2 [Moles/Vol] 27.6 mmol/L Normal 21.0-32.0 [facility] Comment on above: Performed By: #### C BC #### [facility] [address] [place] [address] Dr. Roosevelt Verde Creatinine [Mass/Vol] 1.10 mg/dL Normal 0.70-1.30 [facility] Comment on above: Performed By: #### C BC #### [facility] [address] [place] [address] Dr. Roosevelt Verde EGFR-AF DJIBOUTIAN >60 Normal >=60 [facility] Comment on above: Performed By: #### C BC #### [facility] [address] [place] [address] Dr. Roosevelt Verde EGFR-NON AF DJIBOUTIAN >60 Normal >=60 [facility] Comment on above: Performed By: #### C BC #### [facility] [address] [place] [address] Dr. Roosevelt Verde Globulin (S) [Mass/Vol] 3.0 g/dL Normal [facility] Comment on above: Performed By: #### C BC #### [facility] [address] [address] [address] Roosevelt Verde Glucose [Mass/Vol] 83 mg/dL Normal 74-106 [facility] Comment on above: Performed By: #### C BC #### [facility] [address] [place], [place] [address] Dr. Roosevelt Verde Potassium [Moles/Vol] 4.5 mmol/L Normal 3.5-5.1 [facility] Comment on above: Performed By: #### C BC #### [facility] [address] [address] [address] Roosevelt Verde Protein [Mass/Vol] 7.0 g/dL Normal 6.4-8.2 [facility] Comment on above: Performed By: #### C BC #### [facility] [address] [address] [address] Roosevelt Verde Sodium [Moles/Vol] 140 mmol/L Normal 136-145 [facility] Comment on above: Performed By: #### C BC #### [facility] [address] [address] [address] Roosevelt Verde Urea nitrogen [Mass/Vol] 23.0 mg/dL Critically high 7.0-18.0 [facility] Comment on above: Performed By: #### C BC #### [facility] [address] [address] [address] Roosevelt Verde Urea nitrogen/Creatinine [Mass ratio] 20.9 mg/mg Normal [facility] Comment on above: Performed By: #### C BC #### [facility] [address] [address] [address] Roosevelt Verde XR KUB 1 VIEWon [...] TRA ALDRIDGE Date: 2021-10-23 16:26 Normal [facility] CBC AUTO DIFFon 09-16-2021 BASO # 0.0 103/ul Normal 0.0-0.1 [facility] Comment on above: Performed By: #### C BC #### [facility] [address] [address] [address] Roosevelt Verde Basophils/100 WBC (Bld) 0.5 % Normal 0.2-2.0 [facility] Comment on above: Performed By: #### C BC #### [facility] [address] [address] [address] Roosevelt Verde EO # 0.1 103/ul Normal 0.0-0.7 [facility] Comment on above: Performed By: #### C BC #### [facility] [address] [address] [address] Roosevelt Verde Eosinophils/100 WBC (Bld) 0.6 % Critically low 0.9-7.0 [facility] Comment on above: Performed By: #### C BC #### [facility] [address] [address] [address] Roosevelt Verde Erythrocyte distribution width (RBC) [Ratio] 13.2 % Normal 11.0-15.0 [facility] Comment on above: Performed By: #### C BC #### [facility] [address] [address] [address] Roosevelt Verde Hematocrit (Bld) [Volume fraction] 42.9 % Normal 42.0-54.0 [facility] Comment on above: Performed By: #### C BC #### [facility] [address] [address] [address] Roosevelt Verde Hemoglobin (Bld) [Mass/Vol] 14.2 g/dL Normal 14.0-18.0 [facility] Comment on above: Performed By: #### C BC #### [facility] [address] [place] [address] Dr. Roosevelt Verde IG # 0.03 10e3/ul Normal 0.00-0.03 [facility] Comment on above: Performed By: #### C BC #### [facility] [address] [place] [address] Dr. Roosevelt Verde IG % 0.4 % Normal 0.0-0.5 [facility] Comment on above: Performed By: #### C BC #### [facility] [address] [place] [address] Dr. Roosevelt Verde LYMPH # 1.7 103/ul Normal 1.2-3.8 [facility] Comment on above: Performed By: #### C BC #### [facility] [address] [place] [address] Dr. Roosveelt Verde Lymphocytes/100 WBC (Bld) 21.0 % Normal 20.5-60.0 [facility] Comment on above: Performed By: #### C BC #### [facility] [address] [place] [address] Dr. Roosevelt Verde MANUAL DIFF REQ NO Normal [facility] Comment on above: Performed By: #### C BC #### [facility] [address] [place] [address] Dr. Roosevelt Verde MCH (RBC) [Entitic mass] 34.5 pg Critically high 25.9-34.0 [facility] Comment on above: Performed By: #### C BC #### [facility] [address] [place] [address] Dr. Roosevelt Verde MCHC (RBC) [Mass/Vol] 33.1 g/dL Normal 29.9-35.2 [facility] Comment on above: Performed By: #### C BC #### [facility] [address] [place] [address] Dr. Roosevelt Verde MCV (RBC) [Entitic vol] 104.4 fL Critically high 80.0-94.0 [facility] Comment on above: Performed By: #### C BC #### [facility] [address] [address] [address] Roosevelt Verde MONO # 0.8 103/ul Normal 0.3-0.8 [facility] Comment on above: Performed By: #### C BC #### [facility] [address] [address] [address] Roosevelt Verde Monocytes/100 WBC (Bld) 9.6 % Normal 1.7-12.0 [facility] Comment on above: Performed By: #### C BC #### [facility] [address] [address] [address] Roosevelt eVrde NEUT # 5.5 103/ul Normal 1.4-6.5 [facility] Comment on above: Performed By: #### C BC #### [facility] [address] [place] [address] Dr. Roosevelt Verde Neutrophils/100 WBC (Bld) 67.9 % Normal 43.0-75.0 [facility] Comment on above: Performed By: #### C BC #### [facility] [address] [place] [address] Dr. Roosevelt Verde Platelet mean volume (Bld) [Entitic vol] 9.4 fL Critically low 9.5-13.5 [facility] Comment on above: Performed By: #### C BC #### [facility] [address] [place] [address] Dr. Roosevelt Verde PLT 290 103/ul Normal 150-450 [facility] Comment on above: Performed By: #### C BC #### [facility] [address] [place] [address] Dr. Roosevelt Verde RBC 4.11 106/ul Critically low 4.70-6.10 [facility] Comment on above: Performed By: #### C BC #### [facility] [address] [place] [address] Dr. Roosevelt Verde WBC 8.1 103/ul Normal 4.0-11.0 [facility] Comment on above: Performed By: #### C BC #### [facility] [address] [place] [address] Dr. Roosevelt Verde CREATININEon 09-16-2021 Creatinine [Mass/Vol] 1.20 mg/dL Normal 0.70-1.30 [facility] Comment on above: Performed By: #### C QUE, CRP, ALT, AST #### [facility] [address] [address] [address] Roosevelt Verde EGFR-AF DJIBOUTIAN >=60 Normal >=60 [facility] Comment on above: Performed By: #### C QUE, CRP, ALT, AST #### [facility] [address] [address] [address] Roosevelt Verde EGFR-NON AF DJIBOUTIAN >=60 Normal >=60 [facility] Comment on above: Performed By: #### C QUE, CRP, ALT, AST #### [facility] [address] [address] [address] Roosevelt Verde CRPon 09-16-2021 CRP [Mass/Vol] mg/L Normal <=1.0 [facility] Comment on above: Performed By: #### C QUE, CRP, ALT, AST #### [facility] [address] [address] [address] Roosevelt Verde SED RATE [facility] 2021 SED RATE 4 mm/hr Normal <=20 [facility] Comment on above: Performed By: #### S EDR ####[facility] [address] [address] Roosevelt Verde SGOTosudha 09-16-2021 AST [Catalytic activity/Vol] 17 U/L Normal 15-37 [facility] Comment on above: Performed By: #### C QUE, CRP, ALT, AST #### [facility] [address] [address] [address] Roosevelt PAGANPTon 09-16-2021 ALT [Catalytic activity/Vol] 36 U/L Normal 16-63 [facility] Comment on above: Performed By: #### C QUE, CRP, ALT, AST #### [facility] [address] [address] [address] Roosevelt Verde VIT D, 1,25 DIHYDROXon 07-13 VIT. D 1,25 41.4 Normal [facility] Comment on above: Result Comment: Torsten kim range: 19.9 to 79.3 Unit: pg/mL PERFORMED AT [facility] Performed By: #### L [id number] #### Testing performed at [facility] 25 0H VITAMIN D LEVELon 07-01 25 0H VITAMIN D LEVEL 47.4 NG/ML Normal [facility] Comment on above: Result Comment: DEFICIENT <20 NG/ML INSUFFICIENT 20-<30 NG/ML SUFFICIENT 30-100 NG/ML POTENTIAL TOXICITY >100 NG/ML Demetrius 07-12-2021 ALT [Catalytic activity/Vol] 25 U/L Normal <50 [facility] Comment on above: Performed By: #### L [id number] #### Testing performed at [facility] ALT [Catalytic activity/Vol] 25 U/L <50 IU/L [facility] Levar 07-12-2021 AST [Catalytic activity/Vol] 22 U/L Normal 17-59 [facility] Comment on above: Performed By: #### L [id number] #### Testing performed at [facility] AST [Catalytic activity/Vol] 22 U/L [facility] C REACTIVE PROTEINon 022 CRP [Mass/Vol] mg/L Normal 0-10 [facility] Comment on above: Performed By: #### L VD125 #### Testing performed at [facility] CRP [Mass/Vol] mg/L 0 - 10 MG/L [facility] CBCon 07-12-2021 ABSOLUTE BAS 0.0 10*3/uL Normal 0.0-0.2 [facility] Comment on above: Performed By: #### L [id number] #### Testing performed at [facility] ABSOLUTE EOS 0.10 10*3/uL Normal 0.0-0.7 [facility] Comment on above: Performed By: #### L VD125 #### Testing performed at [facility] ABSOLUTE NEUTROPHIL COUNT 4.2 10*3/uL Normal 1.4-6.5 [facility] Comment on above: Performed By: #### L VD125 #### Testing performed at [facility] Basophils/100 WBC (Bld) 0.5 % Normal 0.0-2.0 [facility] Comment on above: Performed By: #### L VD125 #### Testing performed at [facility] DTYPE AUTO DIFF Normal [facility] Comment on above: Performed By: #### L VD125 #### Testing performed at [facility] Eosinophils/100 WBC (Bld) 0.9 % Normal 0.0-11.0 [facility] Comment on above: Performed By: #### L VD125 #### Testing performed at [facility] Lymphocytes (Bld) [#/Vol] 1.20 10*3/uL Normal 1.2-3.4 [facility] Comment on above: Performed By: #### L VD125 #### Testing performed at [facility] Lymphocytes/100 WBC (Bld) 20.2 % Normal 20.0-55.0 [facility] Comment on above: Performed By: #### L VD125 #### Testing performed at [facility] Monocytes (Bld) [#/Vol] 0.6 10*3/uL Normal 0.0-0.7 [facility] Comment on above: Performed By: #### L VD125 #### Testing performed at [facility] Monocytes/100 WBC (Bld) 10.2 % High 0.0-10.0 [facility] Comment on above: Performed By: #### L VD125 #### Testing performed at [facility] Neutrophils/100 WBC (Bld) 68.2 % Normal 37.0-75.0 [facility] Comment on above: Performed By: #### L VD125 #### Testing performed at [facility] Erythrocyte distribution width (RBC) [Ratio] 14.5 % Normal 11.5-14.5 [facility] Comment on above: Performed By: #### L VD125 #### Testing performed at [facility] Hematocrit (Bld) [Volume fraction] 43.9 % Normal 42.0-52.0 [facility] Comment on above: Performed By: #### L VD125 #### Testing performed at [facility] Hemoglobin (Bld) [Mass/Vol] 14.6 g/dL Normal 14.0-18.0 [facility] Comment on above: Performed By: #### L VD125 #### Testing performed at [facility] MCH (RBC) [Entitic mass] 34.7 pg Normal 26.0-35.0 [facility] Comment on above: Performed By: #### L VD125 #### Testing performed at [facility] MCHC (RBC) [Mass/Vol] 33.2 g/dL Normal 27.0-37.0 [facility] Comment on above: Performed By: #### L VD125 #### Testing performed at [facility] MCV (RBC) [Entitic vol] 104.6 fL High 80.0-100.0 [facility] Comment on above: Performed By: #### L VD125 #### Testing performed at [facility] Platelet mean volume (Bld) [Entitic vol] 7.4 fL Normal 7.4-11.0 [facility] Comment on above: Performed By: #### L VD125 #### Testing performed at [facility] Platelets (Bld) [#/Vol] 304 10*3/uL Normal 130.0-400.0 [facility] Comment on above: Performed By: #### L VD125 #### Testing performed at [facility] RBC (Bld) [#/Vol] 4.20 10*6/uL Normal 4.0-6.1 [facility] Comment on above: Performed By: #### L VD125 #### Testing performed at [facility] WBC (Bld) [#/Vol] 6.2 10*3/uL Normal 3.6-11.0 [facility] Comment on above: Performed By: #### L VD125 #### Testing performed at [facility] CBC, EDIF, PLATELETon 2021 ABSOLUTE BASOPHIL COUNT 0.0 10*3/uL 0.0 - 0.2 10*3/uL [facility] Basophils/100 WBC (Bld) 0.5 % 0.0 - 2.0 % [facility] Differential cell count method Nom (Bld) AUTO DIFF % [facility] Eosinophils (Bld) [#/Vol] 0.10 10*3/uL 0.0 - 0.7 10*3/uL [facility] Eosinophils/100 WBC (Bld) 0.9 % 0.0 - 11.0 % [facility] Erythrocyte distribution width (RBC) [Ratio] 14.5 % 11.5 - 14.5 % [facility] Hematocrit (Bld) [Volume fraction] 43.9 % 42.0 - 52.0 % [facility] Hemoglobin (Bld) [Mass/Vol] 14.6 g/dL [facility] Interpretation and review of laboratory results Abnormal [facility] Lymphocytes (Bld) [#/Vol] 1.20 10*3/uL 1.2 - 3.4 10*3/uL [facility] Lymphocytes/100 WBC (Bld) 20.2 % 20.0 - 55.0 % [facility] MCH (RBC) [Entitic mass] 34.7 pg 26.0 - 35.0 PG [facility] MCHC (RBC) [Mass/Vol] 33.2 g/dL [facility] MCV (RBC) [Entitic vol] 104.6 fL High [facility] Monocytes (Bld) [#/Vol] 0.6 10*3/uL 0.0 - 0.7 10*3/uL [facility] Monocytes/100 WBC (Bld) 10.2 % High 0.0 - 10.0 % [facility] Neutrophils (Bld) [#/Vol] 4.2 10*3/uL 1.4 - 6.5 10*3/uL [facility] Neutrophils/100 WBC (Bld) 68.2 % 37.0 - 75.0 % [facility] Platelet mean volume (Bld) [Entitic vol] 7.4 fL [facility] Platelets (Bld) [#/Vol] 304 10*3/uL 130.0 - 400.0 10*3/uL [facility] RBC (Bld) [#/Vol] 4.20 10*6/uL 4.0 - 6.1 10*6/uL [facility] WBC (Bld) [#/Vol] 6.2 10*3/uL 3.6 - 11.0 10*3/uL [facility] CREATININE SERUMon 2 Creatinine [Mass/Vol] 0.92 mg/dL [facility] GFR COMMENT Average GFR for 50-59 years old = 93. [facility] Comment on above: Chronic Kidney disea se, GFR = <60. Kidney failure, GFR = <15. The GFR estimate is not adjusted for extreme body surface area or acute process, nor has it been validated for women or ethnic groups other than and . GFR/1.73 sq M.predicted among blacks MDRD (S/P/Bld) [Vol rate/Area] 110 mL/min/{1.73_m2} ml/min/1.73sq .m [facility] GFR/1.73 sq M.predicted among non-blacks MDRD (S/P/Bld) [Vol rate/Area] 91 mL/min/{1.73_m2} ml/min/1.73sq .m [facility] CREATININE,SERUMon 2 Creatinine [Mass/Vol] 0.92 mg/dL Normal 0.7-1.2 [facility] Comment on above: Performed By: #### L VD125 #### Testing performed at [facility]. GFR, 110 ml/min/1.73sq.m [facility] Comment on above: Performed By: #### L VD125 #### Testing performed at [facility]. GFR,Non 91 ml/min/1.73sq.m [facility] Comment on above: Performed By: #### L VD125 #### Testing performed at [facility] GFR Information Average GFR for 50-59 years old = 93. 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 Kidney failure, GFR = <15. The GFR estimate is not adjusted for extreme body surface area or acute process, nor has it been validated for women or ethnic groups other than and . Performed By: #### L VD125 #### Testing performed at [facility] ESRon 07-12-2021 ESR (Bld) [Velocity] 2 mm/h Normal 0-20 [facility] Comment on above: Performed By: #### L VD125 #### Testing performed at [facility] No Panel Informationon 07-12 [facility] SEDIMENTATION RATE, AUTOMATE Don 07-12-2021 ESR (Bld) [Velocity] 2 mm/h [facility] VITAMIN D (25-HYDROXY,TOTAL) on 07-12-2021 25-hydroxyvitamin D [Mass/Vol] 47.4 NG/ML [facility] Comment on above: DEFICIENT <20 NG/ML INSUFFICIENT 20-<30 NG/ML SUFFICIENT 30-100 NG/ML POTENTIAL TOXICITY >100 NG/ML [facility] Q - QUANTIFERON TB GOLD PLUS on 03-18-2021 MITOGEN-NIL 9.02 IU/mL Normal [facility] [employer] Scientist Comment on above: Order Comment: [facility] Testing performed at: [facility], [address] [place] [address], [address] [place] [address], [phone], Retail Account Representative: Rick Connors MD [facility] Collection Date/Time: [facility] Results Received Date/Time: [facility] Reported Date/Time: FASTING: NO Performed By: #### [id number] #### [facility] [address] [place] [address] NIL 0.03 IU/mL Normal [facility] [employer] Comment on above: Order Comment: [facility] performed at: [employer] [facility], [address] [facility], [address] [place] [address], [phone], Retail Account Representative: Rick Connors MD [facility] Date/Time: [facility] Results Received Date/Time: [facility] Reported Date/Time: FASTING: NO Performed By: #### [id number] #### [facility] [address] [place] [address] QUANTIFERON(R)-TB GOLD PLUS, 1 TUBE Negative Normal NEGATIVE [facility] Comment on above: Order Comment: [facility] performed at: [employer], [address] , [address] [place] [address], [address] [place] [address], Retail Account Representative: Rick Connors MD [facility] Date/Time: [facility] Results Received Date/Time: [facility] Reported Date/Time: FASTING: NO Result Comment: Nega tive test result. M. tuberculosis complex infection unlikely. Performed By: #### [id number] #### [facility] [address] [place] [address] TB1-NIL 0.00 IU/mL Normal [facility] Comment on above: Order Comment: [facility] performed at: [employer], [address] , [address] [place] [address], [address] [place] [address], Retail Account Representative: Rick Connors MD [facility] Date/Time: [facility] Results Received Date/Time: [facility] Reported Date/Time: FASTING: NO Performed By: #### [id number] #### [facility] [address] [place] [address] TB2-NIL 0.00 IU/mL Normal [facility] Specialist Comment on above: Order Comment: [facility] performed at: [employer], [address] , [address] [place] [address], [address] [place] [address], Retail Account Representative: Rick Connors MD [facility] [...] T-lymphocytes. For additional information, please refer to https://education.[employer]/faq/EZI243 (This link is being provided for informational/ educational purposes only.) Performed By: #### [id number] #### [facility] [address] [place] [address] Demetrius 07-13-2020 ALT [Catalytic activity/Vol] 18 U/L <50 IU/L [facility] 07-13-2020 AST [Catalytic activity/Vol] 19 U/L [facility] C REACTIVE PROTEINon 021 CRP [Mass/Vol] mg/L 0 - 10 MG/L [facility] CBC, EDIF, PLATELETon 2020 ABSOLUTE BASOPHIL COUNT 0.1 10*3/uL 0.0 - 0.2 10*3/uL [facility] Basophils/100 WBC (Bld) 0.8 % 0.0 - 2.0 % [facility] Differential cell count method Nom (Bld) AUTO DIFF % [facility] Eosinophils (Bld) [#/Vol] 0.10 10*3/uL 0.0 - 0.7 10*3/uL [facility] Eosinophils/100 WBC (Bld) 1.7 % 0.0 - 11.0 % [facility] Erythrocyte distribution width (RBC) [Ratio] 15.4 % High 11.5 - 14.5 % [facility] Hematocrit (Bld) [Volume fraction] 44.9 % 42.0 - 52.0 % [facility] Hemoglobin (Bld) [Mass/Vol] 15.4 g/dL [facility] Interpretation and review of laboratory results Abnormal [facility] Lymphocytes (Bld) [#/Vol] 2.00 10*3/uL 1.2 - 3.4 10*3/uL [facility] Lymphocytes/100 WBC (Bld) 22.9 % 20.0 - 55.0 % [facility] MCH (RBC) [Entitic mass] 36.0 pg High 26.0 - 35.0 PG [facility] MCHC (RBC) [Mass/Vol] 34.3 g/dL [facility] MCV (RBC) [Entitic vol] 104.8 fL High [facility] Monocytes (Bld) [#/Vol] 1.0 10*3/uL High 0.0 - 0.7 10*3/uL [facility] Monocytes/100 WBC (Bld) 11.1 % High 0.0 - 10.0 % [facility] Neutrophils (Bld) [#/Vol] 5.4 10*3/uL 1.4 - 6.5 10*3/uL [facility] Neutrophils/100 WBC (Bld) 63.5 % 37.0 - 75.0 % [facility] Platelet mean volume (Bld) [Entitic vol] 7.6 fL [facility] Platelets (Bld) [#/Vol] 276 10*3/uL 130.0 - 400.0 10*3/uL [facility] RBC (Bld) [#/Vol] 4.29 10*6/uL 4.0 - 6.1 10*6/uL [facility] WBC (Bld) [#/Vol] 8.6 10*3/uL 3.6 - 11.0 10*3/uL [facility] CREATININE SERUMon 1 Creatinine [Mass/Vol] 1.01 mg/dL [facility] GFR/1.73 sq M predicted among blacks MDRD (S/P/Bld) [Vol rate/Area] mL/min/{1.73_m2} ml/min/1.73sq .m [facility] GFR/1.73 sq M predicted among non-blacks MDRD (S/P/Bld) [Vol rate/Area] Average GFR for 50-59 years old = 93. [facility] Comment on above: Chronic Kidney disea se, GFR = <60. Kidney failure, GFR = <15. The GFR estimate is not adjusted for extreme body surface area or acute process, nor has it been validated for women or ethnic groups other than and . GFR/1.73 sq M predicted among non-blacks MDRD (S/P/Bld) [Vol rate/Area] mL/min/{1.73_m2} ml/min/1.73sq .m [facility] Otheron 07-13-2020 [facility] SEDIMENTATION RATE, AUTOMATE Don 07-13-2020 ESR (Bld) [Velocity] 9 mm/h [employer] [facility] VITAMIN D (25-HYDROXY,TOTAL) on 07-13-2020 25-Hydroxyvitamin D2+25-Hydroxyvitamin D3 [Mass/Vol] 54.1 [facility] Comment on above: DEFICIENT <20 NG/ML INSUFFICIENT 20-<30 NG/ML SUFFICIENT 30-100 NG/ML POTENTIAL TOXICITY >100 NG[facility] Operative Reporton Operative Report MR#: [id number] S [facility] Pt. Name: Glenda Buckley Room #: [...] closed using Prolene sutures placed in a [id number] fashion. No mesh was placed. The subcutaneous [...] Stiles MD Date Trans: 07/06/2020 01:22 A/dio [id number] cc: Rodrigo Luz M.D. [address] [place] [id number] Normal [facility] POC GLUCOSE LABon 07-05-2020 Glucose [Mass/Vol] 90 mg/dL Normal 70-100 [facility] Comment on above: Performed By: #### [id number] #### [facility] [address] [place] [address], [facility] Demetrius 01-13-2020 ALT [Catalytic activity/Vol] 21 U/L <50 IU/L [facility] Levar 01-13-2020 AST [Catalytic activity/Vol] 22 U/L [facility] C REACTIVE PROTEINon 020 CRP [Mass/Vol] mg/L 0 - 10 MG/L [facility] CBC, EDIF, PLATELETon 2019 ABSOLUTE BASOPHIL COUNT 0.0 10*3/uL 0 - 0.2 10*3/uL [facility] Basophils/100 WBC (Bld) 0.6 % 0 - 2 % [facility] Differential cell count method Nom (Bld) AUTO DIFF % [facility] Eosinophils (Bld) [#/Vol] 0.10 10*3/uL 0 - 0.7 10*3/uL [facility] Eosinophils/100 WBC (Bld) 1.1 % 0 - 11 % [facility] Erythrocyte distribution width (RBC) [Ratio] 14.1 % 11.5 - 14.5 % [facility] Hematocrit (Bld) [Volume fraction] 43.7 % 42 - 52 % [facility] Hemoglobin (Bld) [Mass/Vol] 15.0 g/dL [facility] Interpretation and review of laboratory results Abnormal [facility] Lymphocytes (Bld) [#/Vol] 1.50 10*3/uL 1.2 - 3.4 10*3/uL [facility] Lymphocytes/100 WBC (Bld) 21.7 % 20 - 55 % [facility] MCH (RBC) [Entitic mass] 35.2 pg High 26 - 35 PG [facility] MCHC (RBC) [Mass/Vol] 34.3 g/dL [facility] MCV (RBC) [Entitic vol] 102.7 fL High [facility] Monocytes (Bld) [#/Vol] 0.8 10*3/uL High 0 - 0.7 10*3/uL [facility] Monocytes/100 WBC (Bld) 11.4 % High 0 - 10 % [facility] Neutrophils (Bld) [#/Vol] 4.4 10*3/uL 1.4 - 6.5 10*3/uL [facility] Neutrophils/100 WBC (Bld) 65.2 % 37 - 75 % [facility] Platelet mean volume (Bld) [Entitic vol] 7.4 fL [facility] Platelets (Bld) [#/Vol] 265 10*3/uL 130 - 400 10*3/uL [facility] RBC (Bld) [#/Vol] 4.25 10*6/uL 4 - 6.1 10*6/uL [facility] WBC (Bld) [#/Vol] 6.8 10*3/uL 3.6 - 11 10*3/uL [facility] CREATININE SERUMon 0 Creatinine [Mass/Vol] 0.95 mg/dL [facility] GFR/1.73 sq M predicted among blacks MDRD (S/P/Bld) [Vol rate/Area] mL/min/{1.73_m2} ml/min/1.73sq .m [facility] GFR/1.73 sq M predicted among non-blacks MDRD (S/P/Bld) [Vol rate/Area] Average GFR for 50-59 years old = 93. [facility] Comment on above: Chronic Kidney disea se, GFR = <60. Kidney failure, GFR = <15. The GFR estimate is not adjusted for extreme body surface area or acute process, nor has it been validated for women or ethnic groups other than and . GFR/1.73 sq M predicted among non-blacks MDRD (S/P/Bld) [Vol rate/Area] mL/min/{1.73_m2} ml/min/1.73sq .m [facility] SEDIMENTATION RATE, AUTOMATE Don 01-13-2020 ESR (Bld) [Velocity] 5 mm/h [facility] Vital Signs Date Time Vital Sign Value Performing Clinician Facility 08-19-2024 09:02-0400 Body height 182.9 cm Tra Mahmood Jr., DO Work Phone: [facility] 08-19-2024 09:02-0400 Body mass index (BMI) [Ratio] 33.5 kg/m2 Tra Mahmood Jr., DO Work Phone: [facility] 08-19-2024 09:02-0400 Body weight 112.04 kg Tra Mahmood Jr., DO Work Phone: [facility] 08-19-2024 09:02-0400 Diastolic blood pressure 86 mm[Hg] Tra Mahmood Jr., DO Work Phone: [facility] 08-19-2024 09:02-0400 Heart rate 78 /min Tra Carlozneliaelissa , DO Work Phone: [facility] 08-19-2024 09:02-0400 SaO2% (BldA) [Mass fraction] 97 % Tra Mahmood Jr., DO Work Phone: [facility] 08-19-2024 09:02-0400 Systolic blood pressure 130 mm[Hg] Tra Mahmood Jr., DO Work Phone: [facility] 02-19-2024 08:20-0500 Body height 182.9 cm Tra Carlozkaya Kumar, DO Work Phone: [facility] 02-19-2024 08:20-0500 Diastolic blood pressure 74 mm[Hg] Tra Mahmood Jr., DO Work Phone: [facility] 02-19-2024 08:20-0500 Systolic blood pressure 110 mm[Hg] Tra Carlozkaya Kumar, DO Work Phone: [facility] 10-01-2023 13:02-0400 Blood Pressure Location Yusuf FINE [facility] 10-01-2023 13:02-0400 Diastolic blood pressure 79 mm[Hg] Yusuf FINE [facility] 10-01-2023 13:02-0400 Heart rate 67 /min Yusuf FINE [facility] 10-01-2023 13:02-0400 Respiratory rate 16 /min Yusuf FINE [facility] 10-01-2023 13:02-0400 Systolic blood pressure 118 mm[Hg] Yusuf FINE [facility] 07-31-2023 09:01-0400 Body height 182.9 cm Tra Mahmood Jr., DO Work Phone: [facility] 07-31-2023 09:01-0400 Body mass index (BMI) [Ratio] 33.5 kg/m2 Tra Mahmood Jr., DO Work Phone: [facility] 07-31-2023 09:01-0400 Body weight 112.04 kg Tra Mahmood Jr., DO Work Phone: [facility] 07-31-2023 09:01-0400 Diastolic blood pressure 82 mm[Hg] Tra Mahmood Jr., DO Work Phone: [facility] 07-31-2023 09:01-0400 Heart rate 72 /min Tra Mahmood Jr., DO Work Phone: [facility] 07-31-2023 09:01-0400 SaO2% (BldA) [Mass fraction] 98 % Tra Mahmood Jr., DO Work Phone: [facility] 07-31-2023 09:01-0400 Systolic blood pressure 116 mm[Hg] Tra Mahmood Jr., DO Work Phone: [facility] 01-23-2023 08:58-0400 Body height 182.9 cm Tra Mahmood Jr., DO Work Phone: [facility] 01-23-2023 08:58-0400 Body mass index (BMI) [Ratio] 33.52 kg/m2 Tra Mahmood Jr., DO Work Phone: [facility] 01-23-2023 08:58-0400 Body temperature 97.81 [degF] Tra Mahmood Jr., DO Work Phone: [facility] 01-23-2023 08:58-0400 Body weight 112.1 kg Tra Mahmood Jr., DO Work Phone: [facility] 01-23-2023 08:58-0400 Diastolic blood pressure 80 mm[Hg] Tra Cartyneliaelissa Kumar, DO Work Phone: [facility] 01-23-2023 08:58-0400 Heart rate 66 /min Tra Cartyneliaelissa Kumar, DO Work Phone: [facility] 01-23-2023 08:58-0400 SaO2% (BldA) [Mass fraction] 99 % Tra Mahmood Jr., DO Work Phone: [facility] 01-23-2023 08:58-0400 Systolic blood pressure 122 mm[Hg] Tra Carlozneliaelissa Kumar, DO Work Phone: [facility] 07-25-2022 08:41-0400 Body height 182.9 cm Tra Mahmood Michael, DO Work Phone: [facility] 07-25-2022 08:41-0400 Body mass index (BMI) [Ratio] 33.53 kg/m2 Tra Cartyneliaelissa Kumar, DO Work Phone: [facility] 07-25-2022 08:41-0400 Body weight 112.13 kg Tra Mahmood Jr., DO Work Phone: [facility] 07-25-2022 08:41-0400 Diastolic blood pressure 76 mm[Hg] Tra Mahmood Michael, DO Work Phone: [facility] 07-25-2022 08:41-0400 Heart rate 64 /min Tra Carlozneliaelissa Kumar, DO Work Phone: [facility] 07-25-2022 08:41-0400 Respiratory rate 18 /min Tra Zamanelissa MccallumMichael, DO Work Phone: [facility] 07-25-2022 08:41-0400 SaO2% (BldA) [Mass fraction] 99 % Tra Mahmood Jr., DO Work Phone: [facility] 07-25-2022 08:41-0400 Systolic blood pressure 108 mm[Hg] Tra Mahmood Jr., DO Work Phone: [facility] 06-17-2022 12:30-0400 Body height 180.34 cm Tania Ocaisomond Other [facility] Other 06-17-2022 12:30-0400 Body mass index (BMI) [Ratio] 33.47 kg/m2 Tania Val Other [facility] 06-17-2022 12:30-0400 Body weight 108.86 kg Tania Ocasiomond Other [facility] Other 06-17-2022 12:30-0400 Diastolic blood pressure 90 mm[Hg] Tania Ocasiomond Other [facility] Other 06-17-2022 12:30-0400 Respiratory rate 18 /min Tania Neal Other [facility] [facility] Other 06-17-2022 12:30-0400 SaO2% (BldA) [Mass fraction] 99 % Tania Ocasiomond Other [facility] Other 06-17-2022 12:30-0400 Systolic blood pressure 150 mm[Hg] Tania Ocasiomond Other [facility] [facility] Other 01-10-2022 08:38-0400 Body height 182.9 cm Tra Mahmood Jr., DO Work Phone: [facility] 01-10-2022 08:38-0400 Body mass index (BMI) [Ratio] 36.21 kg/m2 Tra Mahmood Jr., DO Work Phone: [facility] 01-10-2022 08:38-0400 Body temperature 98.01 [degF] Tra Cartyneliaelissa Kuamr, DO Work Phone: [facility] 01-10-2022 08:38-0400 Body weight 121.11 kg Tra Mahmood Jr., DO Work Phone: [facility] 01-10-2022 08:38-0400 Diastolic blood pressure 78 mm[Hg] Tra Cartyneliaelissa Kumar, DO Work Phone: [facility] 01-10-2022 08:38-0400 Heart rate 71 /min Tra Cartyneliaelissa Kumar, DO Work Phone: [facility] 01-10-2022 08:38-0400 SaO2% (BldA) [Mass fraction] 98 % Tra Cartyneliaelissa Kumar, DO Work Phone: [facility] 01-10-2022 08:38-0400 Systolic blood pressure 116 mm[Hg] Tra Carlozneliaelissa Kumar, DO Work Phone: [facility] 07-12-2021 08:11-0400 Body height 182.9 cm Tra Carlozneliaelissa Kumar, DO Work Phone: [facility] 07-12-2021 08:11-0400 Body mass index (BMI) [Ratio] 38.52 kg/m2 Tra Cartyneliaelissa Kumar, DO Work Phone: [facility] 07-12-2021 08:11-0400 Body temperature 98.01 [degF] Tra Carlozneliaelissa Kumar, DO Work Phone: [facility] 07-12-2021 08:11-0400 Body weight 128.82 kg Tra Carlozneliaelissa Kumar, DO Work Phone: [facility] 07-12-2021 08:11-0400 Diastolic blood pressure 76 mm[Hg] Tra Mahmood Jr., DO Work Phone: [facility] 07-12-2021 08:11-0400 Heart rate 70 /min Tra Mahmood Jr. DO Work Phone: [facility] 07-12-2021 08:11-0400 SaO2% (BldA) [Mass fraction] 97 % Tra Mahmood Jr., DO Work Phone: [facility] 07-12-2021 08:11-0400 Systolic blood pressure 126 mm[Hg] Tra Mahmood Jr., DO Work Phone: [facility] 07-13-2020 08:01-0400 BMI (Body Mass Index) 38.52 kg/m2 [facility] 07-13-2020 08:01-0400 Body Temperature 97.9 [degF] [facility] 07-13-2020 08:01-0400 Body weight 128.82 kg [facility] 07-13-2020 08:01-0400 BP Diastolic 84 mm[Hg] [facility] 07-13-2020 08:01-0400 BP Systolic 126 mm[Hg] [facility] 07-13-2020 08:01-0400 Height 182.9 cm [facility] 07-13-2020 08:01-0400 Pulse (Heart Rate) 71 /min [facility] 07-13-2020 08:01-0400 Pulse Oximetry 97 % [facility] 01-13-2020 08:05-0400 BMI (Body Mass Index) 43.81 kg/m2 [facility] 01-13-2020 08:05-0400 Body Temperature 97 [degF] [facility] 01-13-2020 08:05-0400 Body weight 146.51 kg [facility] 01-13-2020 08:05-0400 BP Diastolic 80 mm[Hg] [facility] 01-13-2020 08:05-0400 BP Systolic 130 mm[Hg] [facility] 01-13-2020 08:05-0400 Height 182.9 cm [facility] 09-09-2019 [id number] BMI (Body Mass Index) 43.81 kg/m2 [facility] 09-09-2019 08:21-0400 Body Temperature 97.81 [degF] [facility] 09-09-2019 08:21-0400 Body weight 146.51 kg [facility] 09-09-2019 08:21-0400 BP Diastolic 80 mm[Hg] [facility] 09-09-2019 08:21-0400 BP Systolic 138 mm[Hg] [facility] 09-09-2019 08:21-0400 Height 182.9 cm [facility] 09-09-2019 [id number] Pulse (Heart Rate) 83 /min [facility] 09-09-2019 08:21-0400 Pulse Oximetry 98 % [facility] 05-06-2019 09:12-0500 BMI (Body Mass Index) 42.72 kg/m2 [facility] 05-06-2019 09:12-0500 Body Temperature 98.01 [degF] [facility] 05-06-2019 09:12-0500 Body weight 142.88 kg [facility] 05-06-2019 09:12-0500 BP Diastolic 86 mm[Hg] [facility] 05-06-2019 09:12-0500 BP Systolic 154 mm[Hg] [facility] 05-06-2019 09:12-0500 Height 182.9 cm [facility] 05-06-2019 09:12-0500 Pulse (Heart Rate) 85 /min [facility] 05-06-2019 09:12-0500 Pulse Oximetry 97 % [facility] 01-07-2019 09:14-0400 BMI (Body Mass Index) 42.72 kg/m2 [facility] 01-07-2019 09:14-0400 Body Temperature 98.01 [degF] [facility] 01-07-2019 09:14-0400 Body weight 142.88 kg [facility] 01-07-2019 09:14-0400 BP Diastolic 88 mm[Hg] [facility] 01-07-2019 09:14-0400 BP Systolic 132 mm[Hg] [facility] 01-07-2019 09:14-0400 Height 182.9 cm [facility] 01-07-2019 09:14-0400 Pulse (Heart Rate) 76 /min [facility] 01-07-2019 09:14-0400 Pulse Oximetry 97 % [facility] 09-03-2018 11:29-0400 BMI (Body Mass Index) 42.83 kg/m2 [facility] 09-03-2018 11:29-0400 Body Temperature 98.01 [degF] [facility] 09-03-2018 11:29-0400 BP Diastolic 88 mm[Hg] [facility] 09-03-2018 11:29-0400 BP Systolic 132 mm[Hg] [facility] 09-03-2018 11:29-0400 Height 182.9 cm [facility] 09-03-2018 11:29-0400 Pulse (Heart Rate) 72 /min [facility] 09-03-2018 11:29-0400 Pulse Oximetry 97 % [facility] 09-03-2018 11:29-0400 Weight 143.25 kg [facility] 05-03-2018 11:51-0500 BMI (Body Mass Index) 40.01 kg/m2 [facility] Work Phone: 05-03-2018 11:51-0500 Body Temperature 98.01 [degF] [facility] Work Phone: 05-03-2018 11:51-0500 BP Diastolic 80 mm[Hg] [facility] Work Phone: 05-03-2018 11:51-0500 BP Systolic 132 mm[Hg] [facility] Work Phone: 05-03-2018 11:51-0500 Height 182.9 cm [facility] Work Phone: 05-03-2018 11:51-0500 Pulse (Heart Rate) 89 /min [facility] Work Phone: 05-03-2018 11:51-0500 Pulse Oximetry 97 % [facility] Work Phone: 05-03-2018 11:51-0500 Weight 133.81 kg [facility] Work Phone: 03-29-2018 07:14-0500 Body Temperature 98.01 [degF] [facility] Work Phone: 03-29-2018 07:14-0500 BP Diastolic 84 mm[Hg] [facility] Work Phone: 03-29-2018 07:14-0500 BP Systolic 136 mm[Hg] [facility] Work Phone: 03-29-2018 07:14-0500 Height 182.9 cm [facility] Work Phone: 03-29-2018 07:14-0500 Pulse (Heart Rate) 80 /min [facility] Work Phone: 03-29-2018 07:14-0500 Pulse Oximetry 96 % [facility] Work Phone: Encounters Encounter Date Encounter Type Care Provider Facility Start: 12-08-2024 End: 12-08-2024 ambulatory Yusuf FINE [facility] Start: 12-08-2024 End: 12-08-2024 ambulatory Yusuf FINE Facility:[facility] Start: 12-08-2024 End: 12-08-2024 Patient encounter procedure Yusuf FINE [facility] Start: 11-10-2024 End: 11-10-2024 ambulatory Stephy Hernandez MD Facility:[facility] Start: 11-04-2024 End: 11-04-2024 ambulatory [employer] SADIA COURTNEY Facility:[facility] Start: 08-19-2024 End: 08-19-2024 Office outpatient visit 25 minutes Tra Mahmood DO Work Phone: [facility] Comment on above: Psoriatic [...] DDD (degenerative disc disease), cervical; SAPHO syndrome; Psoriasis; Plaque psoriasis; Long-term current use of high risk medication other than anticoagulant; History of psoriatic arthritis; History of kidney stones; Abnormal renal function test; Vitamin D deficiency; Psoriatic spondylitis; 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; Anemia, unspecified type; Methotrexate, chcf, current use; 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; 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 non-steroidal anti-inflammatories (NSAID) Start: 08-19-2024 ambulatory RODRIGO BRINK [facility] Start: 06-02-2024 End: 06-02-2024 ambulatory [facility] Start: 03-20-2024 End: 03-20-2024 ambulatory Rodrigo Brink Facility:[facility] Start: 03-04-2024 End: 03-04-2024 Bamboo flowscruzito Antoine APRN-[employer] Work Phone: [facility] Start: 03-04-2024 End: 03-04-2024 Bamboo flowsheet [address] Wrighter [address] MAGISTRATE-[employer] Work Phone: [facility] Start: 03-04-2024 End: 03-06-2024 Orders Only Bear Wrighter [address] MAGISTRATE-[employer] Work Phone: [facility] External Department Unsolicited Start: 03-04-2024 End: 03-04-2024 ambulatory BEAR ANTOINE Not Available Start: 03-04-2024 End: 03-04-2024 Office outpatient visit [address] MAGISTRATE-[employer] Work Phone: [facility] Comment on above: Psoriatic arthritis (CMS/HCC) (Primary Dx); Psoriasis vulgaris (CMS/HCC) Start: 02-19-2024 End: 02-19-2024 Office outpatient visit 25 minutes Tra Mahmood DO Work Phone: [facility] Comment on above: Psoriatic [...] both shoulders; DDD (degenerative disc disease), cervical; Macrocytic anemia; Hyperchromic anemia; Psoriasis; Plaque psoriasis; Methotrexate, long term care pharmacist, current use; Long-term current use of high risk medication other than anticoagulant; History of psoriatic arthritis; History of kidney stones; Abnormal renal function test; Vitamin D deficiency; Psoriatic spondylitis; 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 Start: 01-28-2024 End: 01-28-2024 ambulatory Rodrig[facility] Brink [facility] Start: 01-17-2024 End: 02-20-2024 ambulatory Rodrigo Brink Facility:[id number] Start: 01-07-2024 End: 01-07-2024 ambulatory Rodrig[facility] Brink [facility] Start: 12-25-2023 End: 12-25-2023 ambulatory Rodrigo Birnk Facility:[facility] Start: 10-01-2023 End: 10-01-2023 Patient encounter procedure Yusuf FINE 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 Start: 01-23-2023 End: 01-23-2023 Office outpatient visit 15 minutes Tra Mahmood DO Work Phone: [facility] Comment on above: Psoriatic arthritis (Primary [...] End: 11-15-2022 Lab Drop off Rodrigo Brink [facility] Start: 11-15-[address] [facility] Start: 10-31-2022 End: 10-31-2022 Lab Drop off Yakelin Santiago [facility] Start: 09-08-2022 ambulatory KEESHA TELLEZ . Facili ty:[facility] Start: 08-22-2022 ambulatory NARENDRANATH LAKSHMIPATHY . Facility:[facility] Start: 07-29-2022 End: 07-30-[address] RODRIGO LUZ . Facility:[facility] Start: 07-25-2022 End: 07-26-2022 ambulatory NARENDRANATH LAKSHMIPATHY . 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 (NSAID); Long-term current use of high risk medication other than anticoagulant; Methotrexate, long term care pharmacist, current use; Abnormal renal function test; Vitamin [...] osteoarthritis of both knees Start: 07-21-2022 ambulatory [facility] Start: 07-20-2022 End: 07-21-2022 ambulatory TRA MAHMOOD Facility:[facility] Start: 06-17-2022 End: 06-17-2022 ambulatory Tania Neal Other [employer] [facility] Other Start: 06-17-2022 Office outpatient ne w 20 minutes Tania Neal [facility] Start: 06-13-2022 End: 06-14-2022 ambulatory AMI DURAND . Facility:[facility] Start: 05-23-2022 End: 05-24-2022 ambulatory TRA MAHMOOD Facility:[facility] Start: 04-10-2022 End: 05-30-2022 ambulatory FRACISCO ARCHULETA . Facility:[facility] Start: 03-22-2022 ambulatory [facility] Start: 03-21-2022 End: 03-22-2022 ambulatory ELEN CHEN Facility:[facility] Start: 03-08-2022 End: 03-08-[address] RODRIGO LUZ . Facility:[facility] Start: 02-27-2022 End: 03-08-[address] RODRIGO LUZ . Facility:[facility] Start: 02-16-2022 End: 02-17-[address] PAXTON SOLANO . 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 Facility:[facility] Start: 11-17-2021 End: 11-18-2021 ambulatory TRA MAHMOOD Facility:[facility] Start: 10-27-2021 End: 10-28-[address] RODRIGO LUZ . Facility:[facility] Start: 10-23-2021 End: 10-23-[address] RODRIGO LUZ . Facility:[facility] Start: 09-20-2021 End: 09-20-[address] PAXTON SOLANO . 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; 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 (NSAID); [...] 07-13-2020 Office outpatient visit 25 minutes Tra Mahmood Work Phone: [facility] Comment on above: Psoriatic arthritis (Primary Dx); 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; Psoriatic spondylitis; Psoriasis; SAPHO syndrome; History of psoriatic arthritis; 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 (NSAID); Methotrexate, chcf, current use; Long-term current use of high [...] type; Plaque psoriasis Start: 07-05-2020 End: 07-06-2020 [facility] Facility:[facility] Start: 01-13-2020 End: 01-13-2020 Office outpatient visit 25 minutes Tra Mahmood Work Phone: [facility] Comment on above: Psoriatic arthritis (Primary Dx); Psoriasis; Plaque psoriasis; Methotrexate, chcf, current use; Long-term current use of high risk medication other than anticoagulant; 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 non-steroidal anti-inflammatories (NSAID); History [...] 09-09-2019 Office outpatient visit 25 minutes Tra Mahmood Work Phone: [facility] Comment on above: Psoriatic arthritis (Primary Dx); 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; Psoriatic spondylitis; Psoriasis; SAPHO syndrome; History of psoriatic arthritis; 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 non-steroidal anti-inflammatories (NSAID); Methotrexate, long term care pharmacist, current use; Long-term current use of high [...] 05-06-2019 Office outpatient visit 25 minutes Tra Mahmood Work Phone: [facility] Comment on above: Psoriatic arthritis (Primary Dx); 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; Psoriatic spondylitis; SAPHO syndrome; Anemia, unspecified type; History of psoriatic arthritis; 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 non-steroidal anti-inflammatories (NSAID); 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; Long-term current use of high risk medication other than anticoagulant; Methotrexate, chcf, current use; Vitamin D deficiency; DDD (degenerative [...] End: 01-10-2019 Patient encounter procedure Other Other [facility] Start: 01-10-2019 End: 01-10-2019 Telephone encounter Seda Bonilla [facility] Comment on above: Insurance ([place] 0.05%) Start: 01-07-2019 End: 01-07-2019 Refill Juju Green [facility] Comment on above: Psoriatic arthritis; Psoriatic spondylitis; Psoriasis; Plaque psoriasis; Anemia, unspecified type; Methotrexate, long term care pharmacist, current use; Long-term current use of high risk medication other than anticoagulant; 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; 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 non-steroidal anti-inflammatories (NSAID); History [...] 01-07-2019 Office outpatient visit 25 minutes Tra Mahmood Work Phone: [facility] Comment on above: Psoriatic arthritis (Primary Dx); Psoriatic spondylitis; Psoriasis; Plaque psoriasis; Anemia, unspecified type; Methotrexate, long term care pharmacist, current use; Long-term current use of high risk medication other than anticoagulant; 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 systemic steroids; 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 non-steroidal anti-inflammatories (NSAID); History [...] Start: 11-08-2018 End: 11-08-2018 Outside Orders Tra Mahmood Work Phone: [facility] Start: 11-06-2018 End: 11-06-2018 Outside Orders Tra Mahmood Work Phone: [facility] Start: 11-05-2018 End: 11-05-2018 Outside Orders Tra Mahmood Work Phone: [facility] Start: 09-04-2018 End: 09-04-2018 Telephone encounter [facility] Comment on above: Results Start: 09-03-2018 End: 09-03-2018 [facility] on above: Vitamin D deficiency (Primary Dx) Start: 09-03-2018 End: 09-03-2018 Office outpatient visit 25 minutes Tra Carlson [facility] Comment on above: Psoriatic arthritis (Primary Dx); 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; Psoriatic spondylitis; History of psoriatic arthritis; 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 non-steroidal anti-inflammatories (NSAID); 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; Long-term current use of high risk medication other than anticoagulant; Methotrexate, chcf, current use; Noncompliance; Patient non adherence; Vitamin [...] 07-01-2018 Patient encounter procedure Other Other [facility] Start: 05-29-2018 End: 05-29-2018 Patient encounter procedure [facility] Comment on above: Psoriatic arthritis; 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; Psoriatic spondylitis; SAPHO syndrome; Psoriasis; Anemia, unspecified type; 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 (NSAID); 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; Methotrexate, long term care pharmacist, current use; Long-term current use of high [...] End: 05-28-2018 Patient encounter procedure Other Other [facility] Start: 05-24-2018 End: 05-24-2018 Patient encounter procedure Other Other [facility] Start: 05-15-2018 End: 05-15-2018 Patient encounter procedure Tra Mahmood Work Phone: [facility] Start: 05-07-2018 End: 05-07-2018 Telephone encounter Kamran Manning Darion Work Phone: [facility] Comment on above: Referral Start: 05-06-2018 End: 05-06-2018 Telephone encounter Kenyetta Cholo [facility] Comment on above: Referral Start: 05-03-2018 End: 05-03-2018 Office outpatient visit 40 minutes Tra Mahmood Work Phone: [facility] Comment on above: Psoriatic arthritis (Primary Dx); 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; Psoriatic spondylitis; SAPHO syndrome; Psoriasis; Anemia, unspecified type; 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 non-steroidal anti-inflammatories (NSAID); 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 systemic steroids; Methotrexate, chcf, current use; Long-term current use of high risk medication other than anticoagulant; Vitamin D deficiency Start: 04-19-2018 End: 04-19-2018 [facility]: Insurance ([employer] ) Start: 04-17-2018 End: 04-17-2018 Telephone encounter Tra Mahmood Work Phone: [facility] Comment on above: Medication Managemen t Start: 04-16-2018 End: 04-16-2018 [facility] above: Insurance ([employer] ) Start: 04-05-2018 End: 04-05-2018 Patient encounter procedure Tra Mahmood Work Phone: [facility] Start: 04-04-2018 End: 04-04-2018 Patient encounter procedure Tra Mahmood Work Phone: [facility] Start: 04-03-2018 End: 04-03-2018 Patient encounter procedure Juju Green [facility] Comment on above: Results Start: 04-01-2018 End: 04-01-2018 Patient encounter procedure Tra Pedro Kavin Work Phone: [facility] Comment on above: Vitamin D deficiency (Primary Dx) Start: 03-29-2018 Patient encounter status Tra Cartykaya Michael, DO Work Phone: [facility] Start: 03-29-2018 End: 03-29-2018 Office outpatient new 60 minutes Tra Pedro Kavin Work Phone: [facility] Comment on above: Psoriatic arthritis (Primary Dx); 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; Psoriatic spondylitis; SAPHO syndrome; Psoriasis; Fatigue, unspecified type; History of psoriatic arthritis; 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 (NSAID); 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; Methotrexate, long term care pharmacist, current use; Long-term current use of high risk medication other than anticoagulant Procedures Date Procedure Procedure Detail Performing Clinician Start: 03-04-2024 QUANTIFERON-TB GOLD PLUS eBar Antoine [address] MAGISTRATE-TAILOR [employer] Work Phone: Start: 03-04-2024 Tb cell mediated ant ign respnse gamma interferon eBar Antoine [address] MAGISTRATE-TA[employer] Work Phone: Start: 07-05-2020 ANESTH REPAIR OF HERNIA DANIELA MILIAN Start: 07-05-2020 RPR VENTRAL DIGNA INI T REDUC PILI ALLAN Start: 11-04-2018 LABS (OUTSIDE) Tra Mahmood Work Phone: Start: 05-13-2018 ORDERS (OUTSIDE) Tra Mahmood Work Phone: Start: 04-04-2018 End: 04-04-2018 LABS (OUTSIDE) Tra Mahmood Work Phone: Start: 03-29-2018 End: 03-29-2018 LABS (OUTSIDE) Tra Mahmood Work Phone: Start: 09-06-2003 Gastric sleeve Yusuf FINE Appendectomy Yakelin [place] Comment on above: 1999 Coronary artery bypa ss graft operation planned Yakelin [place] Comment on above: 2003 Inguinal hernia (disorder) J catie [place] Comment on above: repair 2004 Plan of Treatment Date Care Activity Detail Author Start: 11-14-2029 Tetanus vaccination [facility] Start: 03-05-2025 End: 03-05-2025 Patient encounter procedure 03/05/2025 8:50 AM EST Office Visit [facility] [address] [place] [address] Bear Antoine APRN-TAILOR [employer] [address] [place] [address] [facility] Start: 02-17-2025 End: 02-17-2025 Patient encounter procedure 02/17/2025 10:00 AM EST Office Visit [facility] [address] [id number] Tra Mahmood Jr., [address] [place] [address] [facility] Start: 02-05-2025 End: 08-19-2025 C-reactive protein C REACTIVE PROTEIN Lab Routi [...] DDD (degenerative disc disease), cervical SAPHO syndrome Psoriasis Plaque psoriasis Long-term current use of high risk medication other than anticoagulant History of psoriatic arthritis History of kidney stones Abnormal renal function test Vitamin D deficiency 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 Anemia, unspecified type Methotrexate, long term care pharmacist, current use 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 (NSAID) Expected: 02/05/2025 (Approximate), Expires: 08/19/2025 [facility] Comment on above: Expected: 02/05/2025 (Approximate), Expi res: 08/19/2025 Start: 02-05-2025 End: 08-19-2025 Complete blood count with white cell differential, [...] DDD (degenerative disc disease), cervical SAPHO syndrome Psoriasis Plaque psoriasis Long-term current use of high risk medication other than anticoagulant History of psoriatic arthritis History of kidney stones Abnormal renal function test Vitamin D deficiency 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 Anemia, unspecified type Methotrexate, chcf, current use 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 (NSAID) Expected: 02/05/2025 (Approximate), Expires: 08/19/2025 [facility] Comment on above: Expected: 02/05/2025 (Approximate), Expi res: 08/19/2025 Start: 02-05-2025 End: 08-19-2025 Comprehensive metabolic 2000 panel - Serum or Plasma COMPREHENSIVE METABOLIC PANEL Lab Routine Psoriatic arthritis Primary osteoarthritis of both knees Osteoarthritis of both wrists, unspecified osteoarthritis type Osteoarthritis of both hips, unspecified osteoarthritis type Osteoarthritis of both hands, unspecified osteoarthritis type Osteoarthritis of both glenohumeral joints Osteoarthritis of both acromioclavicular joints Osteoarthritis of cervical spine, unspecified spinal osteoarthritis complication status Impingement syndrome of both shoulders DDD (degenerative disc disease), cervical SAPHO syndrome Psoriasis Plaque psoriasis Long-term current use of high risk medication other than anticoagulant History of psoriatic arthritis History of kidney stones Abnormal renal function test Vitamin D deficiency 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 Anemia, unspecified type Methotrexate, long term care pharmacist, current use 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 systemic steroids 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 (NSAID) Expected: 02/05/2025 (Approximate), Expires: 08/19/2025 [facility] Comment on above: Expected: 02/05/2025 (Approximate), Expi res: 08/19/2025 Start: 02-05-2025 End: 08-19-2025 SEDIMENTATION RATE, AUTOMATED SEDIMENTATION RATE, AUTOMATED Lab [...] DDD (degenerative disc disease), cervical SAPHO syndrome Psoriasis Plaque psoriasis Long-term current use of high risk medication other than anticoagulant History of psoriatic arthritis History of kidney stones Abnormal renal function test Vitamin D deficiency 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 Anemia, unspecified type Methotrexate, long term care pharmacist, current use 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 systemic steroids 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 (NSAID) Expected: 02/05/2025 (Approximate), Expires: 08/19/2025 [facility] Comment on above: Expected: 02/05/2025 (Approximate), Expi res: 08/19/2025 Start: 02-05-2025 End: 08-19-2025 VITAMIN D (25-HYDROXY,TOTAL) VITAMIN D (25-HYDROXY,TOTAL) Lab [...] DDD (degenerative disc disease), cervical SAPHO syndrome Psoriasis Plaque psoriasis Long-term current use of high risk medication other than anticoagulant History of psoriatic arthritis History of kidney stones Abnormal renal function test Vitamin D deficiency 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 Anemia, unspecified type Methotrexate, long term care pharmacist, current use 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 systemic steroids 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 (NSAID) Expected: 02/05/2025 (Approximate), Expires: 08/19/2025 [facility] Comment on above: Expected: 02/05/2025 (Approximate), Expi res: 08/19/2025 Start: 02-05-2025 End: 08-19-2025 VITAMIN D, (1,25 DIHYDROXY) VITAMIN D, (1,25 [...] DDD (degenerative disc disease), cervical SAPHO syndrome Psoriasis Plaque psoriasis Long-term current use of high risk medication other than anticoagulant History of psoriatic arthritis History of kidney stones Abnormal renal function test Vitamin D deficiency 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 Anemia, unspecified type Methotrexate, long term care pharmacist, current use 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 systemic steroids 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 (NSAID) Expected: 02/05/2025 (Approximate), Expires: 08/19/2025 [facility] Comment on above: Expected: 02/05/2025 (Approximate), Expi res: 08/19/2025 Start: 08-19-2024 End: 08-19-2024 Patient encounter procedure 08/19/2024 9:00 AM EDT Office Visit [facility] [address] [place] [address] Kavin Kumar, Tra Vasquez DO [address] [place] [address] [facility] Start: 08-05-2024 End: 02-18-2025 VITAMIN D (25-HYDROXY,TOTAL) VITAMIN D (25-HYDROXY,TOTAL) Lab [...] both shoulders DDD (degenerative disc disease), cervical Macrocytic anemia Hyperchromic anemia Psoriasis Plaque psoriasis Methotrexate, chcf, current use Long-term current use of high risk medication other than anticoagulant History of psoriatic arthritis History of kidney stones Abnormal renal function test Vitamin D deficiency 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 Expected: 08/05/2024 (Approximate), Expires: 02/18/2025 [facility] Comment on above: Expected: 08/05/2024 (Approximate), Expi res: 02/18/2025 Start: 08-05-2024 End: 02-18-2025 VITAMIN D, (1,25 DIHYDROXY) VITAMIN D, (1,25 [...] both shoulders DDD (degenerative disc disease), cervical Macrocytic anemia Hyperchromic anemia Psoriasis Plaque psoriasis Methotrexate, long term care pharmacist, current use Long-term current use of high risk medication other than anticoagulant History of psoriatic arthritis History of kidney stones Abnormal renal function test Vitamin D deficiency 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 Expected: 08/05/2024 (Approximate), Expires: 02/18/2025 [facility] Comment on above: Expected: 08/05/2024 (Approximate), Expi res: 02/18/2025 Start: 04-04-2024 End: 04-04-2024 Patient encounter procedure 04/04/2024 9:00 AM EST Office Visit [facility] [address] [place] [address] Pk Fuchs MD [address] [place] [address] [facility] Start: 01-29-2024 End: 01-29-2024 Patient encounter procedure 01/29/2024 11:00 AM EDT Office Visit [address] [address] Kavin Kumar, Tra Vasquez, DO [address] [place] [address] [facility] Start: 01-15-2024 End: 07-30-2024 [...] anemia Psoriasis Plaque psoriasis Hyperchromic anemia Methotrexate, chcf, current use Long-term current use of high risk medication other than anticoagulant History of psoriatic arthritis History of kidney stones Abnormal renal function test Vitamin D deficiency 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 Expected: 01/15/2024 (Approximate), Expires: 07/30/2024 [facility] Comment on above: Expected: 01/15/2024 (Approximate), Expi res: 07/30/2024 Start: 12-02-2023 COVID-19 VACCINE ( season) COVID-19 VACCINE ( season) [facility] Start: 12-02-2023 Influenza vaccination INFLUENZA VACCINE (Season Ended) [facility] Start: 07-31-2023 End: 07-30-2024 VITAMIN D (25-HYDROXY,TOTAL) [...] anemia Psoriasis Plaque psoriasis Hyperchromic anemia Methotrexate, long term care pharmacist, current use Long-term current use of high risk medication other than anticoagulant History of psoriatic arthritis History of kidney stones Abnormal renal function test Vitamin D deficiency 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 Psoriatic spondylitis Plaque psoriasis Psoriasis SAPHO syndrome History of kidney stones History of psoriatic arthritis Long-term current use of high risk medication other than anticoagulant Methotrexate, chcf, current use Vitamin D deficiency DDD (degenerative [...] both knees Expected: 07/11/2023 (Approximate), Expires: [facility]24/2024 [facility] Comment on above: Expected: 07/11/2023 (Approximate), Expi [...] both knees Expected: 07/11/2023 (Approximate), Expires: 01/24/2024 [facility] Comment on above: Expected: 07/11/2023 (Approximate), Expi res: 01/24/2024 Start: 01-23-2023 End: 01-23-2023 Patient encounter procedure 01/23/2023 Office Visit Rheumatology Kavin Kumar, Tra Vasquez, DO [address] [phone] [facility] Start: 01-19-2023 End: 07-26-2023 VITAMIN D (25-HYDROXY,TOTAL) VITAMIN D (25-HYDROXY,TOTAL) Lab Routine Psoriatic arthritis 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 Psoriatic spondylitis Macrocytic anemia Plaque psoriasis Psoriasis SAPHO syndrome History of kidney stones 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 psoriatic arthritis 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 (NSAID) [...] both knees Expected: 01/19/2023 (Approximate), Expires: 07/26/2023 [facility] Comment on above: Expected: 01/19/2023 (Approximate), Expi res: 07/26/2023 Start: 01-19-2023 End: 07-26-2023 VITAMIN D, (1,25 DIHYDROXY) VITAMIN D, (1,25 DIHYDROXY) Lab Routine Psoriatic arthritis 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 Psoriatic spondylitis Macrocytic anemia Plaque psoriasis Psoriasis SAPHO syndrome History of kidney stones History of psoriatic arthritis 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 non-steroidal anti-inflammatories (NSAID) Long-term current use of high risk medication other than anticoagulant Methotrexate, chcf, current use Abnormal renal function test Vitamin [...] both knees Expected: 01/19/2023 (Approximate), Expires: 07/26/2023 [facility] Comment on above: Expected: 01/19/2023 (Approximate), Expi res: 07/26/2023 Start: 12-01-2022 COVID-19 VACCINE () COVID-19 VACCINE () [facility] Start: 12-01-2022 Influenza vaccination [facility] Start: 08-10-2022 End: 07-26-2023 Urea nitrogen [Mass/volume] in Serum or Plasma BUN Lab Routine Psoriatic arthritis 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 Psoriatic spondylitis Macrocytic anemia Plaque psoriasis Psoriasis SAPHO syndrome History of kidney stones History of psoriatic arthritis 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 non-steroidal anti-inflammatories (NSAID) Long-term [...] both knees Expected: 08/10/2022 (Approximate), Expires: 07/26/2023 [facility] Comment on above: Expected: 08/10/2022 (Approximate), Expi res: 07/26/2023 Start: 08-10-2022 End: 07-26-2023 Urinalysis dipstick W Reflex Microscopic panel - Urine URINE MICROSCOPIC Fluids Routine Psoriatic arthritis 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 Psoriatic spondylitis Macrocytic anemia Plaque psoriasis Psoriasis SAPHO syndrome History of kidney stones History of psoriatic arthritis 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 non-steroidal anti-inflammatories (NSAID) Long-term current use of high risk medication other than anticoagulant Methotrexate, chcf, current use Abnormal renal function test Vitamin [...] both knees Expected: 08/10/2022 (Approximate), Expires: 07/26/2023 [facility] Comment on above: Expected: 08/10/2022 (Approximate), Expi res: 07/26/2023 Start: 08-10-2022 End: 07-26-2023 Urinalysis, reagent strip without microscopy URINALYSIS, MACRO Fluids Routine Psoriatic arthritis 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 Psoriatic spondylitis Macrocytic anemia Plaque psoriasis Psoriasis SAPHO syndrome History of kidney stones 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 of psoriatic arthritis 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 (NSAID) [...] both knees Expected: 08/10/2022 (Approximate), Expires: 07/26/2023 [facility] Comment on above: Expected: 08/10/2022 (Approximate), Expi res: 07/26/2023 Start: 07-25-2022 End: 07-25-2022 Patient encounter procedure 07/25/2022 Office Visit Rheumatology Kavin Kumar, Tra Vasquez, DO [address] [place] [address] [facility] Start: 01-10-2022 End: 01-10-2023 VITAMIN D, (1,25 DIHYDROXY) [facility] Comment on above: Expected: 01/10/2022 (Approximate), Expi res: 01/10/2023 Start: 01-10-2022 End: 01-10-2022 Patient encounter procedure 01/10/2022 Office Visit Rheumatology Tra Mahmood Jr., [address] [place] [phone] [facility] Start: 12-01-2021 Influenza vaccination [facility] Start: 07-12-2021 End: 07-12-2022 VITAMIN D, (1,25 DIHYDROXY) [facility] Comment on above: Expected: 07/12/2021 (Approximate), Expi res: 07/12/2022 Start: 2021 Prostate specific antigen measurement PROSTATE CANCER SCREENING DISCUSSION [facility] Start: 01-11-2021 End: 01-11-2021 Office Visit 01/11/2021 Office Visit Rheumatology Tra Mahmood Jr., DO [address] [place] [phone] [facility] Start: 12-01-2020 Influenza vaccination INFLUENZA VACCINE (Season Ended) [facility] Start: 11-02-2020 COVID-19 VACCINE (3 - Booster for Pfizer series) COVID-19 VACCINE (3 - Booster for Pfizer series) [facility] Start: 07-13-2020 End: 07-13-2020 Office Visit 07/13/2020 Office Visit Rheumatology Tra Mahmood Jr., DO [address] [place] [phone] [facility] Start: 02-11-2020 End: 09-08-2020 VITAMIN D (25-HYDROXY,TOTAL) VITAMIN D (25-HYDROXY,TOTAL) Lab Routine Psoriatic arthritis 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 Psoriatic spondylitis Psoriasis SAPHO syndrome 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 of psoriatic arthritis 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 (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, chcf, current use Long-term current use of high [...] Plaque psoriasis Expected: 02/11/2020 (Approximate), Expires: 09/08/2020 [facility] Comment on above: Expected: 02/11/2020 (Approximate), Expi res: 09/08/2020 Start: 02-11-2020 End: 09-08-2020 VITAMIN D, (1,25 DIHYDROXY) VITAMIN D, (1,25 DIHYDROXY) Lab Routine Psoriatic arthritis 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 Psoriatic spondylitis Psoriasis SAPHO syndrome History of psoriatic arthritis 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 non-steroidal anti-inflammatories (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, [...] Plaque psoriasis Expected: 02/11/2020 (Approximate), Expires: 09/08/2020 [facility] Comment on above: Expected: 02/11/2020 (Approximate), Expi res: 09/08/2020 Start: 01-13-2020 End: 01-13-2020 Office Visit 01/13/2020 Office Visit Rheumatology Kavin Kumar, Tra Vasquez, [address] [place] [address] [phone] [facility] Start: 12-02-2019 Influenza vaccination [facility] Start: 09-09-2019 End: 09-09-2019 Office Visit 09/09/2019 Office Visit Rheumatology Kavin Kumar, Tra Vasquez, DO [address] [place] [phone] [facility] Start: 09-04-2019 End: 05-06-2020 VITAMIN D (25-HYDROXY,TOTAL) VITAMIN D (25-HYDROXY,TOTAL) Lab Routine Psoriatic arthritis 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 Anemia, unspecified type History of psoriatic arthritis 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 non-steroidal anti-inflammatories (NSAID) 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 systemic steroids Long-term current [...] psoriasis Psoriasis Expected: 09/04/2019 (Approximate), Expires: 05/06/2020 [facility] Comment on above: Expected: 09/04/2019 (Approximate), Expi res: 05/06/2020 Start: 09-04-2019 End: 05-06-2020 VITAMIN D, (1,25 DIHYDROXY) VITAMIN D, (1,25 DIHYDROXY) Lab Routine Psoriatic arthritis 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 Anemia, unspecified type 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 psoriatic arthritis 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 (NSAID) 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 Long-term current use of high risk medication other than anticoagulant Methotrexate, chcf, current use Vitamin D deficiency DDD (degenerative [...] psoriasis Psoriasis Expected: 09/04/2019 (Approximate), Expires: 05/06/2020 [facility] Comment on above: Expected: 09/04/2019 (Approximate), Expi res: 05/06/2020 Start: 05-06-2019 End: 05-06-2019 Office Visit 05/06/2019 [facility], DO [address] [place] [phone] [facility] Start: 03-29-2019 End: 03-29-2019 JOVAN MULTIPLEX SCRN WITH REFLEX JOVAN MULTIPLEX SCRN WITH REFLEX Routine Psoriatic arthritis 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 Psoriasis Fatigue, unspecified type History of psoriatic arthritis 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 non-steroidal anti-inflammatories (NSAID) 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, long term care pharmacist, current use Long-term current use of high risk medication other than anticoagulant Lumbosacral spondylosis without myelopathy Disorder of bone and cartilage Plaque psoriasis Cervicalgia Dorsalgia Chronic pain of both shoulders Bilateral elbow joint pain Bilateral wrist pain Bilateral hand pain Chronic pain of both knees Expected: 03/29/2019 (Approximate), Expires: 03/29/2019 [facility] Work Phone: Comment on above: Expected: 03/29/2019 (Approximate), Expi res: 03/29/2019 Start: 03-29-2019 End: 03-29-2019 ANCA INIT SCRN (ANCA, PR3AB, MPO) ANCA INIT SCRN (ANCA, PR3AB, MPO) Routine Psoriatic arthritis 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 Psoriasis Fatigue, unspecified type History of psoriatic arthritis 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 non-steroidal anti-inflammatories (NSAID) 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, chcf, current use Long-term current use of high risk medication other than anticoagulant Lumbosacral spondylosis without myelopathy Disorder of bone and cartilage Plaque psoriasis Cervicalgia Dorsalgia Chronic pain of both shoulders Bilateral elbow joint pain Bilateral wrist pain Bilateral hand pain Chronic pain of both knees Expected: 03/29/2019 (Approximate), Expires: 03/29/2019 [facility] Work Phone: Comment on above: Expected: 03/29/2019 (Approximate), Expi res: 03/29/2019 Start: 03-29-2019 End: 03-29-2019 ANGIOTENSIN CONVERTING ENZYME ANGIOTENSIN CONVERTING ENZYME Routine Psoriatic arthritis 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 Psoriasis Fatigue, unspecified type 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 of psoriatic arthritis 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 (NSAID) 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, chcf, current use Long-term current use of high risk medication other than anticoagulant Lumbosacral spondylosis without myelopathy Disorder of bone and cartilage Plaque psoriasis Cervicalgia Dorsalgia Chronic pain of both shoulders Bilateral elbow joint pain Bilateral wrist pain Bilateral hand pain Chronic pain of both knees Expected: 03/29/2019 (Approximate), Expires: 03/29/2019 [facility] Work Phone: Comment on above: Expected: 03/29/2019 (Approximate), Expi res: 03/29/2019 Start: 03-29-2019 End: 03-29-2019 CBC,PLATELETS CBC,PLATELETS Routine Psoria tic arthritis 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 Psoriasis Fatigue, unspecified type 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 of psoriatic arthritis 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 (NSAID) 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, long term care pharmacist, current use Long-term current use of high risk medication other than anticoagulant Lumbosacral spondylosis without myelopathy Disorder of bone and cartilage Plaque psoriasis Cervicalgia Dorsalgia Chronic pain of both shoulders Bilateral elbow joint pain Bilateral wrist pain Bilateral hand pain Chronic pain of both knees Expected: 03/29/2019 (Approximate), Expires: 03/29/2019 [facility] Work Phone: Comment on above: Expected: 03/29/2019 (Approximate), Expi res: 03/29/2019 Start: 03-29-2019 End: 03-29-2019 CK CK Routine Psoriatic arthrit is 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 Psoriatic spondylitis SAPHO syndrome Psoriasis Fatigue, unspecified type History of psoriatic arthritis 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 non-steroidal anti-inflammatories (NSAID) 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, chcf, current use Long-term current use of high risk medication other than anticoagulant Lumbosacral spondylosis without myelopathy Disorder of bone and cartilage Plaque psoriasis Cervicalgia Dorsalgia Chronic pain of both shoulders Bilateral elbow joint pain Bilateral wrist pain Bilateral hand pain Chronic pain of both knees Expected: 03/29/2019 (Approximate), Expires: 03/29/2019 [facility] Work Phone: Comment on above: Expected: 03/29/2019 (Approximate), Expi res: 03/29/2019 Start: 03-29-2019 End: 03-29-2019 Comprehensive metabolic 2000 panel - Serum or Plasma COMPREHENSIVE METABOLIC PANEL Routine Psoriatic arthritis 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 Psoriatic spondylitis SAPHO syndrome Psoriasis Fatigue, unspecified type History of psoriatic arthritis 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 non-steroidal anti-inflammatories (NSAID) 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, long term care pharmacist, current use Long-term current use of high risk medication other than anticoagulant Lumbosacral spondylosis without myelopathy Disorder of bone and cartilage Plaque psoriasis Cervicalgia Dorsalgia Chronic pain of both shoulders Bilateral elbow joint pain Bilateral wrist pain Bilateral hand pain Chronic pain of both knees Expected: 03/29/2019 (Approximate), Expires: 03/29/2019 [facility] Work Phone: Comment on above: Expected: 03/29/2019 (Approximate), Expi res: 03/29/2019 Start: 03-29-2019 End: 03-29-2019 CRP mass conc C REACTIVE PROTEIN Routine Psoriatic arthritis 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 Psoriatic spondylitis SAPHO syndrome Psoriasis Fatigue, unspecified type History of psoriatic arthritis 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 non-steroidal anti-inflammatories (NSAID) 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, chcf, current use Long-term current use of high risk medication other than anticoagulant Lumbosacral spondylosis without myelopathy Disorder of bone and cartilage Plaque psoriasis Cervicalgia Dorsalgia Chronic pain of both shoulders Bilateral elbow joint pain Bilateral wrist pain Bilateral hand pain Chronic pain of both knees Expected: 03/29/2019 (Approximate), Expires: 03/29/2019 [facility] Work Phone: Comment on above: Expected: 03/29/2019 (Approximate), Expi res: 03/29/2019 Start: 03-29-2019 End: 03-29-2019 CYCLIC CITRULLINATE PEPTIDE AB CYCLIC CITRULLINATE PEPTIDE AB Routine Psoriatic arthritis 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 Psoriatic spondylitis SAPHO syndrome Psoriasis Fatigue, unspecified type 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 psoriatic arthritis 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 (NSAID) 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, chcf, current use Long-term current use of high risk medication other than anticoagulant Lumbosacral spondylosis without myelopathy Disorder of bone and cartilage Plaque psoriasis Cervicalgia Dorsalgia Chronic pain of both shoulders Bilateral elbow joint pain Bilateral wrist pain Bilateral hand pain Chronic pain of both knees Expected: 03/29/2019 (Approximate), Expires: 03/29/2019 [facility] Work Phone: Comment on above: Expected: 03/29/2019 (Approximate), Expi res: 03/29/2019 Start: 03-29-2019 End: 03-29-2019 HEPATITIS A, B, C HEPATITIS A, B, C Routine Psoriatic arthritis 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 Psoriatic spondylitis SAPHO syndrome Psoriasis Fatigue, unspecified type History of psoriatic arthritis 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 non-steroidal anti-inflammatories (NSAID) 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, long term care pharmacist, current use Long-term current use of high risk medication other than anticoagulant Lumbosacral spondylosis without myelopathy Disorder of bone and cartilage Plaque psoriasis Cervicalgia Dorsalgia Chronic pain of both shoulders Bilateral elbow joint pain Bilateral wrist pain Bilateral hand pain Chronic pain of both knees Expected: 03/29/2019 (Approximate), Expires: 03/29/2019 [facility] Work Phone: Comment on above: Expected: 03/29/2019 (Approximate), Expi res: 03/29/2019 Start: 03-29-2019 End: 03-29-2019 HLA-B27 HLA-B27 Routine Psoriatic arthritis 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 Psoriatic spondylitis SAPHO syndrome Psoriasis Fatigue, unspecified type History of psoriatic arthritis 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 (NSAID) 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, chcf, current use Long-term current use of high risk medication other than anticoagulant Lumbosacral spondylosis without myelopathy Disorder of bone and cartilage Plaque psoriasis Cervicalgia Dorsalgia Chronic pain of both shoulders Bilateral elbow joint pain Bilateral wrist pain Bilateral hand pain Chronic pain of both knees Expected: 03/29/2019 (Approximate), Expires: 03/29/2019 [facility] Work Phone: Comment on above: Expected: 03/29/2019 (Approximate), Expi res: 03/29/2019 Start: 03-29-2019 End: 03-29-2019 PATRICK AND PE, SERUM PATRICK AND PE, SERUM Routine Psoriatic arthritis 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 Psoriatic spondylitis SAPHO syndrome Psoriasis Fatigue, unspecified type History of psoriatic arthritis 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 non-steroidal anti-inflammatories (NSAID) 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 systemic steroids Methotrexate, chcf, current use Long-term current use of high risk medication other than anticoagulant Lumbosacral spondylosis without myelopathy Disorder of bone and cartilage Plaque psoriasis Cervicalgia Dorsalgia Chronic pain of both shoulders Bilateral elbow joint pain Bilateral wrist pain Bilateral hand pain Chronic pain of both knees Expected: 03/29/2019 (Approximate), Expires: 03/29/2019 [facility] Work Phone: Comment on above: Expected: 03/29/2019 (Approximate), Expi res: 03/29/2019 Start: 03-29-2019 End: 03-29-2019 MAGNESIUM MAGNESIUM Routine Psoriatic arthritis 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 Psoriatic spondylitis SAPHO syndrome Psoriasis Fatigue, unspecified type History of psoriatic arthritis 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 non-steroidal anti-inflammatories (NSAID) 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 systemic steroids Methotrexate, chcf, current use Long-term current use of high risk medication other than anticoagulant Lumbosacral spondylosis without myelopathy Disorder of bone and cartilage Plaque psoriasis Cervicalgia Dorsalgia Chronic pain of both shoulders Bilateral elbow joint pain Bilateral wrist pain Bilateral hand pain Chronic pain of both knees Expected: 03/29/2019 (Approximate), Expires: 03/29/2019 [facility] Work Phone: Comment on above: Expected: 03/29/2019 (Approximate), Expi res: 03/29/2019 Start: 03-29-2019 End: 03-29-2019 RHEUMATOID FACTOR RHEUMATOID FACTOR Routine Psoriatic arthritis 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 Psoriatic spondylitis SAPHO syndrome Psoriasis Fatigue, unspecified type History of psoriatic arthritis 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 non-steroidal anti-inflammatories (NSAID) 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 Methotrexate, chcf, current use Long-term current use of high risk medication other than anticoagulant Lumbosacral spondylosis without myelopathy Disorder of bone and cartilage Plaque psoriasis Cervicalgia Dorsalgia Chronic pain of both shoulders Bilateral elbow joint pain Bilateral wrist pain Bilateral hand pain Chronic pain of both knees Expected: 03/29/2019 (Approximate), Expires: 03/29/2019 [facility] Work Phone: Comment on above: Expected: 03/29/2019 (Approximate), Expi res: 03/29/2019 Start: 03-29-2019 End: 03-29-2019 SEDIMENTATION RATE, AUTOMATED SEDIMENTATION RATE, AUTOMATED Routine Psoriatic arthritis 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 Psoriatic spondylitis SAPHO syndrome Psoriasis Fatigue, unspecified type 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 psoriatic arthritis 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 (NSAID) 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 systemic steroids Methotrexate, long term care pharmacist, current use Long-term current use of high risk medication other than anticoagulant Lumbosacral spondylosis without myelopathy Disorder of bone and cartilage Plaque psoriasis Cervicalgia Dorsalgia Chronic pain of both shoulders Bilateral elbow joint pain Bilateral wrist pain Bilateral hand pain Chronic pain of both knees Expected: 03/29/2019 (Approximate), Expires: 03/29/2019 [facility] Work Phone: Comment on above: Expected: 03/29/2019 (Approximate), Expi res: 03/29/2019 Start: 03-29-2019 End: 03-29-2019 T-TRANSGLUTAMINASE IGA AB T-TRANSGLUTAMINASE IGA AB Routine Psoriatic arthritis 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 Psoriatic spondylitis SAPHO syndrome Psoriasis Fatigue, unspecified type History of psoriatic arthritis 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 non-steroidal anti-inflammatories (NSAID) 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 Methotrexate, long term care pharmacist, current use Long-term current use of high risk medication other than anticoagulant Lumbosacral spondylosis without myelopathy Disorder of bone and cartilage Plaque psoriasis Cervicalgia Dorsalgia Chronic pain of both shoulders Bilateral elbow joint pain Bilateral wrist pain Bilateral hand pain Chronic pain of both knees Expected: 03/29/2019 (Approximate), Expires: 03/29/2019 [facility] Work Phone: Comment on above: Expected: 03/29/2019 (Approximate), Expi res: 03/29/2019 Start: 03-29-2019 End: 03-29-2019 TESTOSTERONE TESTOSTERONE Routine Psoriat ic arthritis Psoriatic arthropathy of distal interphalangeal (DIP) joint Psoriatic spondylitis SAPHO syndrome Psoriasis Fatigue, unspecified type History of psoriatic arthritis 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 non-steroidal anti-inflammatories (NSAID) 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 systemic steroids Methotrexate, chcf, current use Long-term current use of high risk medication other than anticoagulant Lumbosacral spondylosis without myelopathy Disorder of bone and cartilage Plaque psoriasis Cervicalgia Dorsalgia Chronic pain of both shoulders Bilateral elbow joint pain Bilateral wrist pain Bilateral hand pain Chronic pain of both knees Expected: 03/29/2019 (Approximate), Expires: 03/29/2019 [facility] Work Phone: Comment on above: Expected: 03/29/2019 (Approximate), Expi res: 03/29/2019 Start: 03-29-2019 End: 03-29-2019 Thyrotropin Qn TSH Routine Psoriatic arthri tis 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 Psoriasis Fatigue, unspecified type History of psoriatic arthritis 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 non-steroidal anti-inflammatories (NSAID) 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 Methotrexate, chcf, current use Long-term current use of high risk medication other than anticoagulant Lumbosacral spondylosis without myelopathy Disorder of bone and cartilage Plaque psoriasis Cervicalgia Dorsalgia Chronic pain of both shoulders Bilateral elbow joint pain Bilateral wrist pain Bilateral hand pain Chronic pain of both knees Expected: 03/29/2019 (Approximate), Expires: 03/29/2019 [facility] Work Phone: Comment on above: Expected: 03/29/2019 (Approximate), Expi res: 03/29/2019 Start: 03-29-2019 End: 03-29-2019 Urate mass conc URIC ACID Routine Psoriatic arthritis 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 Psoriasis Fatigue, unspecified type History of psoriatic arthritis 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 (NSAID) 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 systemic steroids Methotrexate, long term care pharmacist, current use Long-term current use of high risk medication other than anticoagulant Lumbosacral spondylosis without myelopathy Disorder of bone and cartilage Plaque psoriasis Cervicalgia Dorsalgia Chronic pain of both shoulders Bilateral elbow joint pain Bilateral wrist pain Bilateral hand pain Chronic pain of both knees Expected: 03/29/2019 (Approximate), Expires: 03/29/2019 [facility] Work Phone: Comment on above: Expected: 03/29/2019 (Approximate), Expi res: 03/29/2019 Start: 03-29-2019 End: 03-29-2019 VITAMIN D (25-HYDROXY,TOTAL) VITAMIN D (25-HYDROXY,TOTAL) Routine Psoriatic arthritis 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 Psoriasis Fatigue, unspecified type History of psoriatic arthritis 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 non-steroidal anti-inflammatories (NSAID) 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 Methotrexate, chcf, current use Long-term current use of high risk medication other than anticoagulant Lumbosacral spondylosis without myelopathy Disorder of bone and cartilage Plaque psoriasis Cervicalgia Dorsalgia Chronic pain of both shoulders Bilateral elbow joint pain Bilateral wrist pain Bilateral hand pain Chronic pain of both knees Expected: 03/29/2019 (Approximate), Expires: 03/29/2019 [facility] Work Phone: Comment on above: Expected: 03/29/2019 (Approximate), Expi res: 03/29/2019 Start: 03-29-2019 End: 03-29-2019 VITAMIN D, (1,25 DIHYDROXY) VITAMIN D, (1,25 DIHYDROXY) Routine Psoriatic arthritis 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 Psoriasis Fatigue, unspecified type 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 of psoriatic arthritis 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 (NSAID) 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 systemic steroids Methotrexate, chcf, current use Long-term current use of high risk medication other than anticoagulant Lumbosacral spondylosis without myelopathy Disorder of bone and cartilage Plaque psoriasis Cervicalgia Dorsalgia Chronic pain of both shoulders Bilateral elbow joint pain Bilateral wrist pain Bilateral hand pain Chronic pain of both knees Expected: 03/29/2019 (Approximate), Expires: 03/29/2019 [facility] Work Phone: Comment on above: Expected: 03/29/2019 (Approximate), Expi res: 03/29/2019 Start: 01-07-2019 End: 01-07-2019 [facility] Start: 12-04-2018 End: 09-04-2019 VITAMIN D (25-HYDROXY,TOTAL) VITAMIN D (25-HYDROXY,TOTAL) Lab Routine Vitamin D deficiency Expected: 12/04/2018 (Approximate), Expires: 09/04/2019 [facility] Comment on above: Expected: 12/04/2018 (Approximate), Expi res: 09/04/2019 Start: 12-04-2018 End: 09-04-2019 VITAMIN D, (1,25 DIHYDROXY) VITAMIN D, (1,25 DIHYDROXY) Lab Routine Vitamin D deficiency Expected: 12/04/2018 (Approximate), Expires: 09/04/2019 [facility] Comment on above: Expected: 12/04/2018 (Approximate), Expi res: 09/04/2019 Start: 12-01-2018 Influenza vaccination [facility] Start: 09-06-2018 End: 09-06-2018 Ambulatory 09/06/2018 Office Visit Rheumatology Kavin Kumar, Tra Vasquez, [address] [place] [address] [phone] [facility] Start: 09-03-2018 End: 09-04-2019 VITAMIN D (25-HYDROXY,TOTAL) [facility] Comment on above: Expected: 09/03/2018 (Approximate), Expi res: 09/04/2019 Expected: 09/03/2018 , Expires: 09/03/2019 Start: 09-03-2018 End: 09-04-2019 VITAMIN D, (1,25 DIHYDROXY) [facility] Comment on above: Expected: 09/03/2018 (Approximate), Expi res: 09/04/2019 Expected: 09/03/2018 , Expires: 09/03/2019 Start: 06-30-2018 End: 04-01-2019 VITAMIN D (25-HYDROXY,TOTAL) VITAMIN D (25-HYDROXY,TOTAL) Routine Vitamin D deficiency Expected: 06/30/2018 (Approximate), Expires: 04/01/2019 [facility] Work Phone: Comment on above: Expected: 06/30/2018 (Approximate), Expi res: 04/01/2019 Start: 06-30-2018 End: 04-01-2019 VITAMIN D, (1,25 DIHYDROXY) VITAMIN D, (1,25 DIHYDROXY) Routine Vitamin D deficiency Expected: 06/30/2018 (Approximate), Expires: 04/01/2019 [facility] Work Phone: Comment on above: Expected: 06/30/2018 (Approximate), Expi res: 04/01/2019 Start: 05-09-2018 End: 05-09-2018 Ambulatory 05/09/2018 Office Visit Rheumatology Tra Mahmood Jr., [address] [place] [address] [phone] [facility] Start: 05-03-2018 End: 05-03-2018 Ambulatory 05/03/2018 Office Visit Rheumatology Tra Mahmood Jr., [address] [place] [address] [phone] [facility] Start: 03-29-2018 End: 03-29-2019 Diagnostic radiography of lumbar spine XR SPINE LUMBOSACRAL 5 VIEWS Routine Psoriatic arthritis 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 Psoriasis Fatigue, unspecified type History of psoriatic arthritis 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 non-steroidal anti-inflammatories (NSAID) 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 systemic steroids Methotrexate, long term care pharmacist, current use Long-term current use of high risk medication other than anticoagulant Lumbosacral spondylosis without myelopathy Disorder of bone and cartilage Plaque psoriasis Cervicalgia Dorsalgia Chronic pain of both shoulders Bilateral elbow joint pain Bilateral wrist pain Bilateral hand pain Chronic pain of both knees Expected: 03/29/2018, Expires: 03/29/2019 [facility] Work Phone: Comment on above: Expected: 03/29/2018, Expires: 9 Start: 03-29-2018 End: 03-29-2019 Diagnostic radiography of sacroiliac joints XR SACROILIAC JOINTS MIN 3 VIEWS Routine Psoriatic arthritis 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 Psoriasis Fatigue, unspecified type History of psoriatic arthritis 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 non-steroidal anti-inflammatories (NSAID) 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 systemic steroids Methotrexate, chcf, current use Long-term current use of high risk medication other than anticoagulant Lumbosacral spondylosis without myelopathy Disorder of bone and cartilage Plaque psoriasis Cervicalgia Dorsalgia Chronic pain of both shoulders Bilateral elbow joint pain Bilateral wrist pain Bilateral hand pain Chronic pain of both knees Expected: 03/29/2018, Expires: 03/29/2019 [facility] Work Phone: Comment on above: Expected: 03/29/2018, Expires: 9 Start: 03-29-2018 End: 03-29-2019 M TUBERCULOSIS BY QUANTIFERON, BLD M TUBERCULOSIS BY QUANTIFERON, BLD Routine Psoriatic arthritis 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 Psoriasis Fatigue, unspecified type History of psoriatic arthritis 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 non-steroidal anti-inflammatories (NSAID) 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 systemic steroids Methotrexate, long term care pharmacist, current use Long-term current use of high risk medication other than anticoagulant Lumbosacral spondylosis without myelopathy Disorder of bone and cartilage Plaque psoriasis Cervicalgia Dorsalgia Chronic pain of both shoulders Bilateral elbow joint pain Bilateral wrist pain Bilateral hand pain Chronic pain of both knees Expected: 03/29/2018 (Approximate), Expires: 03/29/2019 [facility] Work Phone: Comment on above: Expected: 03/29/2018 (Approximate), Expi res: 03/29/2019 Start: 03-29-2018 End: 03-29-2019 Radiography of cervical spine XR SPINE CERVICAL WITH OBL AND FLEX/EXT Routine Psoriatic arthritis 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 Psoriasis Fatigue, unspecified type History of psoriatic arthritis 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 non-steroidal anti-inflammatories (NSAID) 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 Methotrexate, chcf, current use Long-term current use of high risk medication other than anticoagulant Lumbosacral spondylosis without myelopathy Disorder of bone and cartilage Plaque psoriasis Cervicalgia Dorsalgia Chronic pain of both shoulders Bilateral elbow joint pain Bilateral wrist pain Bilateral hand pain Chronic pain of both knees Expected: 03/29/2018, Expires: 03/29/2019 [facility] Work Phone: Comment on above: Expected: 03/29/2018, Expires: 9 Start: 03-29-2018 End: 03-29-2019 Radiography of hand XR HANDS-RHEUMATOLOGY EVAL O NLY Routine Psoriatic arthritis 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 Psoriasis Fatigue, unspecified type History of psoriatic arthritis 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 non-steroidal anti-inflammatories (NSAID) 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 systemic steroids Methotrexate, long term care pharmacist, current use Long-term current use of high risk medication other than anticoagulant Lumbosacral spondylosis without myelopathy Disorder of bone and cartilage Plaque psoriasis Cervicalgia Dorsalgia Chronic pain of both shoulders Bilateral elbow joint pain Bilateral wrist pain Bilateral hand pain Chronic pain of both knees Expected: 03/29/2018, Expires: 03/29/2019 [facility] Work Phone: Comment on above: Expected: 03/29/2018, Expires: 9 Start: 03-29-2018 End: 03-29-2019 Radiography of shoulder [facility] Work Phone: Comment on above: Expected: 03/29/2018, Expires: 9 Start: 03-29-2018 End: 03-29-2019 Radiography of wrist [facility] Work Phone: Comment on above: Expected: 03/29/2018, Expires: 9 Start: 03-29-2018 End: 03-29-2019 Radiologic examination of knee [facility] Work Phone: Comment on above: Expected: 03/29/2018, Expires: 9 Start: 03-29-2018 End: 03-29-2019 X-ray of both knees XR KNEES BILATERAL STANDING 1 VIEW Routine Psoriatic arthritis 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 Psoriasis Fatigue, unspecified type 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 of psoriatic arthritis 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 (NSAID) 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 systemic steroids Methotrexate, chcf, current use Long-term current use of high risk medication other than anticoagulant Lumbosacral spondylosis without myelopathy Disorder of bone and cartilage Plaque psoriasis Cervicalgia Dorsalgia Chronic pain of both shoulders Bilateral elbow joint pain Bilateral wrist pain Bilateral hand pain Chronic pain of both knees Expected: 03/29/2018, Expires: 03/29/2019 [facility] Work Phone: Comment on above: Expected: 03/29/2018, Expires: 9 Start: 12-01-2017 Influenza vaccination INFLUENZA VACCINE (#1) [facility] Work Phone: Start: 2016 Colonoscopy [facility] Work Phone: Start: 2016 Pneumococcal vaccination PNEUMOCOCCAL VACCINE SERIES (1 of 1 - PCV) [facility] Start: 2016 Prostate specific antigen measurement PROSTATE CANCER SCREENING DISCUSSION [facility] Start: 2016 Protein mass conc COLON CANCER SCREENING DISCUSSION [facility] Work Phone: Start: 2016 Zoster vaccine hzv live for subcutaneous use ZOSTER (SHINGLES) VACCINE (1 of 2) [facility] Start: 2011 Colonoscopy COLORECTAL CANCER SCREENING DISCUSSION [facility] Start: 2011 Screening for malignant neoplasm of colon COLORECTAL CANCER SCREENING DISCUSSION [facility] Start: 2006 Fasting lipid profile LIPID SCREENING [facility] Start: 2006 Lipid panel LIPID SCREENING [facility] Start: 1985 Hepatitis B vaccination HEP B VACCINE (1 of 3 - 19+ 3-dose series) [facility] Start: 1985 Third diphtheria, tetanus and acellular pertussis (DTaP) vaccination TDAP (ADULT) [facility] Start: 1984 Tetanus vaccination TETANUS [facility] Start: 1982 COVID-19 VACCINE (1) COVID-19 VACCINE (1) [facility] Start: 1981 HIV screening HIV SCREENING DISCUSSION [facility] Start: 1979 HIV screening HIV SCREENING DISCUSSION [facility] Work Phone: Start: 1971 COVID-19 VACCINE (1) COVID-19 VACCINE (1) [facility] Start: 1966 COVID-19 VACCINE (#1) COVID-19 VACCINE (#1) [facility] Start: 1966 Finding of potassium level (finding) POTASSIUM [facility] Start: 1966 Hepatitis B vaccination HEP B VACCINE (1 of 3 - 3-dose series) [facility] Start: 1966 Hepatitis C antibody, confirmatory test HEPATITIS C VIRUS SCREENING [facility] Start: 1966 Hepatitis C screening HEPATITIS C VIRUS SCREENING [facility] Start: 1966 Screening for malignant neoplasm of colon [facility] End: 07-12-2022 Alanine aminotransferase [Enzymatic activity/volume] in Serum or Plasma ALT Lab Routine Psoriatic arthritis Psoriatic spondylitis Psoriasis Plaque psoriasis Anemia, unspecified type Methotrexate, chcf, current use Long-term current use of high risk medication other than anticoagulant 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 systemic steroids 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 (NSAID) [...] Occurrences starting 07/12/2021 until 07/12/2022, 1 completed [facility] Comment on above: Every 8 Weeks for 6 Occurrences starting 07/12/2021 until 07/12/2022, 1 completed End: 01-10-2023 Alanine aminotransferase [Enzymatic activity/volume] in Serum or Plasma ALT Lab Routine Psoriatic arthritis 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 Psoriatic spondylitis Plaque psoriasis Psoriasis SAPHO syndrome History of psoriatic arthritis 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 (NSAID) Long-term current use of high risk medication other than anticoagulant Methotrexate, chcf, current use Every 8 Weeks for 6 Occurrences starting 01/10/2022 until 01/10/2023 [employer] [facility] Comment on above: Every 8 Weeks for 6 Occurrences starting 01/10/2022 until 01/10/2023 End: 07-26-2023 Alanine aminotransferase [Enzymatic activity/volume] in Serum or Plasma ALT Lab Routine Psoriatic arthritis 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 Psoriatic spondylitis Macrocytic anemia Plaque psoriasis Psoriasis SAPHO syndrome History of kidney stones History of psoriatic arthritis 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 (NSAID) Long-term current use of high risk medication other than anticoagulant Methotrexate, chcf, current use Abnormal renal function test Vitamin [...] for 4 Occurrences starting 07/25/2022 until 07/26/2023 [employer] Comment on above: Every 12 Weeks for [...] for 4 Occurrences starting 01/23/2023 until 01/24/2024 [employer] Comment on above: Every 12 Weeks for [...] anemia Psoriasis Plaque psoriasis Hyperchromic anemia Methotrexate, long term care pharmacist, current use Long-term current use of high risk medication other than anticoagulant History of psoriatic arthritis History of kidney stones Abnormal renal function test Vitamin D deficiency 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 Every 12 Weeks for 4 Occurrences starting 07/31/2023 until 07/30/2024 [employer] Comment on above: Every 12 Weeks for 4 Occurrences startin g 07/31/2023 until 07/30/2024 End: 02-18-2025 Alanine aminotransferase [Enzymatic activity/volume] in Serum or [...] both shoulders DDD (degenerative disc disease), cervical Macrocytic anemia Hyperchromic anemia Psoriasis Plaque psoriasis Methotrexate, chcf, current use Long-term current use of high risk medication other than anticoagulant History of psoriatic arthritis History of kidney stones Abnormal renal function test Vitamin D deficiency 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 (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, chcf, current use Long-term current use of high [...] psoriasis 6 Occurrences starting 10/11/2019 until 09/08/2020 [facility] Comment on above: 6 Occurrences starting 10/11/2019 until 09/08/2020 End: 01-12-2021 ALT [Catalytic activity/Vol] ALT Lab Routine Psoriatic arthritis Psoriasis Plaque psoriasis Methotrexate, long term care pharmacist, current use Long-term current use of high risk medication other than anticoagulant 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 (NSAID) [...] Occurrences starting 01/13/2020 until 01/12/2021, 1 completed [employer] Comment on above: 6 Occurrences starting 01/13/2020 until 01/12/2021, 1 completed End: 01-08-2020 ALT [Catalytic activity/Vol] ALT Lab Routine Psoriatic arthritis Psoriatic spondylitis Psoriasis Plaque psoriasis Anemia, unspecified type Methotrexate, long term care pharmacist, current use Long-term current use of high risk medication other than anticoagulant 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 non-steroidal anti-inflammatories (NSAID) History [...] cervical 6 Occurrences starting 01/04/2019 until 01/08/2020 [facility] Comment on above: 6 Occurrences starting 01/04/2019 until 01/08/2020 End: 07-13-2021 ALT [Catalytic activity/Vol] ALT Lab Routine Psoriatic arthritis 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 Psoriatic spondylitis Psoriasis SAPHO syndrome 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 of psoriatic arthritis 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 (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, chcf, current use Long-term current use of high [...] Occurrences starting 09/12/2020 until 07/13/2021, 1 completed [employer] Comment on above: 6 Occurrences starting 09/12/2020 until 07/13/2021, 1 completed End: 05-03-2019 ALT enzyme act/vol ALT Routine Psoriatic arthri tis 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 Psoriasis Anemia, unspecified type 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 non-steroidal anti-inflammatories (NSAID) 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 Methotrexate, long [...] psoriasis 6 Occurrences starting 05/30/2018 until 05/03/2019 [facility] Work Phone: Comment on above: 6 Occurrences starting 05/30/2018 until 05/03/2019 End: 09-04-2019 ALT enzyme act/vol ALTLabRoutinePsoriatic arthritisPsoriatic arthropathy of distal interphalangeal (DIP) jointPsoriatic spondylitisHistory of psoriatic arthritisLong term current use of non-steroidal anti-inflammatories (NSAID)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Long-term current use of high risk medication other than anticoagulantMethotrexate, chcf, current useNoncompliancePatient non adherenceVitamin D deficiencyDDD (degenerative [...] starting 11/03/2018 until (more content not included)... [facility] Comment on above: 6 Occurrences starting 11/03/2018 until 09/04/2019 End: 07-12-2022 Aspartate aminotransferase [Enzymatic activity/volume] in Serum or Plasma AST Lab Routine Psoriatic arthritis Psoriatic spondylitis Psoriasis Plaque psoriasis Anemia, unspecified type Methotrexate, chcf, current use Long-term current use of high risk medication other than anticoagulant 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 systemic steroids 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 non-steroidal anti-inflammatories (NSAID) History [...] Occurrences starting 07/12/2021 until 07/12/2022, 1 completed [employer] Comment on above: Every 8 Weeks for 6 Occurrences starting 07/12/2021 until 07/12/2022, 1 completed End: 01-10-2023 Aspartate aminotransferase [Enzymatic activity/volume] in Serum or Plasma AST Lab Routine Psoriatic arthritis 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 Psoriatic spondylitis Plaque psoriasis Psoriasis SAPHO syndrome History of psoriatic arthritis 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 non-steroidal anti-inflammatories (NSAID) Long-term current use of high risk medication other than anticoagulant Methotrexate, long term care pharmacist, current use Every 8 Weeks for 6 Occurrences starting 01/10/2022 until 01/10/2023 [employer] Comment on above: Every 8 Weeks for 6 Occurrences starting 01/10/2022 until 01/10/2023 End: 07-26-2023 Aspartate aminotransferase [Enzymatic activity/volume] in Serum or Plasma AST Lab Routine Psoriatic arthritis 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 Psoriatic spondylitis Macrocytic anemia Plaque psoriasis Psoriasis SAPHO syndrome History of kidney stones 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 of psoriatic arthritis 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 (NSAID) Long-term current use of high risk medication other than anticoagulant Methotrexate, chcf, current use Abnormal renal function test Vitamin [...] for 4 Occurrences starting 07/25/2022 until 07/26/2023 [employer] Comment on above: Every 12 Weeks for 4 Occurrences startin g 07/25/2022 until 07/26/2023 End: 01-24-2024 Aspartate aminotransferase [Enzymatic activity/volume] in Serum or Plasma AST Lab Routine Psoriatic arthritis 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 Psoriatic spondylitis Plaque psoriasis Psoriasis SAPHO syndrome History of kidney stones History of psoriatic arthritis Long-term current use of high risk medication other than anticoagulant Methotrexate, chcf, current use Vitamin D deficiency DDD (degenerative [...] for 4 Occurrences starting 01/23/2023 until 01/24/2024 [employer] Comment on above: Every 12 Weeks for [...] anemia Psoriasis Plaque psoriasis Hyperchromic anemia Methotrexate, chcf, current use Long-term current use of high risk medication other than anticoagulant History of psoriatic arthritis History of kidney stones Abnormal renal function test Vitamin D deficiency 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 Every 12 Weeks for 4 Occurrences starting 07/31/2023 until 07/30/2024 [facility]: Every 12 Weeks for 4 Occurrences startin g 07/31/2023 until 07/30/2024 End: 11-19-2025 Aspartate aminotransferase [Enzymatic activity/volume] in Serum or [...] both shoulders DDD (degenerative disc disease), cervical Macrocytic anemia Hyperchromic anemia Psoriasis Plaque psoriasis Methotrexate, chcf, current use Long-term current use of high risk medication other than anticoagulant History of psoriatic arthritis History of kidney stones Abnormal renal function test Vitamin D deficiency 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 Every 12 Weeks for 4 Occurrences starting 02/19/2024 until 02/18/2025 [facility] Comment on above: Every 12 Weeks for 4 Occurrences startin g 02/19/2024 until 02/18/2025 End: 09-08-2020 AST [Catalytic activity/Vol] AST Lab Routine Psoriatic arthritis 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 Psoriatic spondylitis Psoriasis SAPHO syndrome History of psoriatic arthritis 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 non-steroidal anti-inflammatories (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, chcf, current use Long-term current use of high [...] psoriasis 6 Occurrences starting 10/11/2019 until 09/08/2020 [facility] Comment on above: 6 Occurrences starting 10/11/2019 until 09/08/2020 End: 01-12-2021 AST [Catalytic activity/Vol] AST Lab Routine Psoriatic arthritis Psoriasis Plaque psoriasis Methotrexate, long term care pharmacist, current use Long-term current use of high risk medication other than anticoagulant 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 non-steroidal anti-inflammatories (NSAID) History [...] Occurrences starting 01/13/2020 until 01/12/2021, 1 completed [employer] Comment on above: 6 Occurrences starting 01/13/2020 until 01/12/2021, 1 completed End: 07-13-2021 AST [Catalytic activity/Vol] AST Lab Routine Psoriatic arthritis 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 Psoriatic spondylitis Psoriasis SAPHO syndrome History of psoriatic arthritis 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 non-steroidal anti-inflammatories (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, [...] Occurrences starting 09/12/2020 until 07/13/2021, 1 completed [employer] Comment on above: 6 Occurrences starting 09/12/2020 until 07/13/2021, 1 completed End: 05-03-2019 AST enzyme act/vol AST Routine Psoriatic arthri tis 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 spondylitis SAPHO syndrome Psoriasis Anemia, unspecified type 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 non-steroidal anti-inflammatories (NSAID) 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 systemic steroids Methotrexate, chcf, current use Long-term current use of high [...] psoriasis 6 Occurrences starting 05/30/2018 until 05/03/2019 [facility] Work Phone: Comment on above: 6 Occurrences starting 05/30/2018 until 05/03/2019 End: 09-04-2019 AST enzyme act/vol ASTLabRoutinePsoriatic arthritisPsoriatic arthropathy of distal interphalangeal (DIP) jointPsoriatic spondylitisHistory of psoriatic arthritisLong term current use of non-steroidal anti-inflammatories (NSAID)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 systemic steroidsLong-term current use [...] starting 11/03/2018 until (more content not included)... 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 (NSAID) [...] Occurrences starting 07/12/2021 until 07/12/2022, 1 completed [employer] Comment on above: Every 8 Weeks for 6 Occurrences starting 07/12/2021 until 07/12/2022, 1 completed End: 01-10-2023 C-reactive protein C REACTIVE PROTEIN Lab Routi ne Psoriatic arthritis 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 Psoriatic spondylitis Plaque psoriasis Psoriasis SAPHO syndrome History of psoriatic arthritis 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 non-steroidal anti-inflammatories (NSAID) Long-term current use of high risk medication other than anticoagulant Methotrexate, chcf, current use Every 8 Weeks for 6 Occurrences starting 01/10/2022 until 01/10/2023 [employer] Comment on above: Every 8 Weeks for 6 Occurrences starting 01/10/2022 until 01/10/2023 End: 07-26-2023 C-reactive protein C REACTIVE PROTEIN Lab Routi ne Psoriatic arthritis 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 Psoriatic spondylitis Macrocytic anemia Plaque psoriasis Psoriasis SAPHO syndrome History of kidney stones History of psoriatic arthritis 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 non-steroidal anti-inflammatories (NSAID) Long-term [...] for 4 Occurrences starting 07/25/2022 until 07/26/2023 [employer] Comment on above: Every 12 Weeks for 4 Occurrences startin g 07/25/2022 until 07/26/2023 End: 01-24-2024 C-reactive protein C REACTIVE PROTEIN Lab Routi ne Psoriatic arthritis 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 Psoriatic spondylitis Plaque psoriasis Psoriasis SAPHO syndrome History of kidney stones History of psoriatic arthritis Long-term current use of high risk medication other than anticoagulant Methotrexate, chcf, current use Vitamin D deficiency DDD (degenerative [...] for 4 Occur[facility] 01/23/2023 [facility]: Every 12 Weeks for [...] anemia Psoriasis Plaque psoriasis Hyperchromic anemia Methotrexate, chcf, current use Long-term current use of high risk medication other than anticoagulant History of psoriatic arthritis History of kidney stones Abnormal renal function test Vitamin D deficiency 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 Every 12 Weeks for 4 Occurrences starting 07/31/2023 until 07/30/20[facility] above: Every 12 Weeks for 4 Occurrences startin g 07/31/2023 until 07/30/2024 End: 02-18-2025 C-reactive protein C REACTIVE PROTEIN Lab Routi [...] both shoulders DDD (degenerative disc disease), cervical Macrocytic anemia Hyperchromic anemia Psoriasis Plaque psoriasis Methotrexate, long term care pharmacist, current use Long-term current use of high risk medication other than anticoagulant History of psoriatic arthritis History of kidney stones Abnormal renal function test Vitamin D deficiency 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 Every 12 Weeks for 4 Occurrences starting 02/19/2024 until 02/18/2025 [facility] Comment on above: Every 12 Weeks for 4 Occurrences startin g 02/19/2024 until 02/18/2025 End: 01-08-2020 CBC, EDIF, PLATELET CBC, EDIF, PLATELET Lab Rout ine Psoriatic arthritis Psoriatic spondylitis Psoriasis Plaque psoriasis Anemia, unspecified type Methotrexate, long term care pharmacist, current use Long-term current use of high risk medication other than anticoagulant 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 systemic steroids 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 (NSAID) [...] cervical 6 Occurrences starting 01/04/2019 until 01/08/2020 [facility] [place] Comment on above: 6 Occurrences starting 01/04/2019 until 01/08/2020 End: 05-03-2019 CBC,PLATELETS CBC,PLATELETS Routine Psoria tic arthritis 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 Psoriatic spondylitis SAPHO syndrome Psoriasis Anemia, unspecified type 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 non-steroidal anti-inflammatories (NSAID) 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 Methotrexate, long [...] psoriasis 6 Occurrences starting 05/30/2018 until 05/03/2019 [facility] Work Phone: Comment on above: 6 Occurrences starting 05/30/2018 until 05/03/2019 End: 09-04-2019 CBC,PLATELETS CBC,PLATELETSLabRoutinePsori atic arthritisPsoriatic arthropathy of distal interphalangeal (DIP) jointPsoriatic spondylitisHistory of psoriatic arthritisLong term current use of non-steroidal anti-inflammatories (NSAID)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 systemic steroidsLong-term current use of high risk medication other than anticoagulantMethotrexate, chcf, current useNoncompliancePatient non adherenceVitamin D deficiencyDDD (degenerative [...] starting 11/03/2018 until (more content not included)... 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 (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, chcf, current use Long-term current use of high [...] psoriasis 6 Occurrences starting 10/11/2019 until 09/08/2020 [facility] Comment on above: 6 Occurrences starting 10/11/2019 until 09/08/2020 End: 01-12-2021 Complete blood count with white cell differential, automated CBC, EDIF, PLATELET Lab Routine Psoriatic arthritis Psoriasis Plaque psoriasis Methotrexate, long term care pharmacist, current use Long-term current use of high risk medication other than anticoagulant 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 non-steroidal anti-inflammatories (NSAID) History [...] Occurrences starting 01/13/2020 until 01/12/2021, 1 completed [employer] Comment on above: 6 Occurrences starting 01/13/2020 until 01/12/2021, 1 completed End: 07-13-2021 Complete blood count with white cell differential, automated CBC, EDIF, PLATELET Lab Routine Psoriatic arthritis 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 Psoriatic spondylitis Psoriasis SAPHO syndrome History of psoriatic arthritis 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 non-steroidal anti-inflammatories (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, [...] Occurrences starting 09/12/2020 until 07/13/2021, 1 completed [employer] Comment on above: 6 Occurrences starting 09/12/2020 until 07/13/2021, 1 completed End: 07-12-2022 Complete blood count with white cell differential, automated CBC, EDIF, PLATELET Lab Routine Psoriatic arthritis Psoriatic spondylitis Psoriasis Plaque psoriasis Anemia, unspecified type Methotrexate, long term care pharmacist, current use Long-term current use of high risk medication other than anticoagulant 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 non-steroidal anti-inflammatories (NSAID) History [...] Occurrences starting 07/12/2021 until 07/12/2022, 1 completed [employer] Comment on above: Every 8 Weeks for 6 Occurrences starting 07/12/2021 until 07/12/2022, 1 completed End: 01-10-2023 Complete blood count with white cell differential, automated CBC, EDIF, PLATELET Lab Routine Psoriatic arthritis 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 Psoriatic spondylitis Plaque psoriasis Psoriasis SAPHO syndrome History of psoriatic arthritis 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 (NSAID) Long-term current use of high risk medication other than anticoagulant Methotrexate, long term care pharmacist, current use Every 8 Weeks for 6 Occurrences starting 01/10/2022 until 01/10/2023 [employer] Comment on above: Every 8 Weeks for 6 Occurrences starting 01/10/2022 until 01/10/2023 End: 07-26-2023 Complete blood count with white cell differential, automated CBC, EDIF, PLATELET Lab Routine Psoriatic arthritis 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 Psoriatic spondylitis Macrocytic anemia Plaque psoriasis Psoriasis SAPHO syndrome History of kidney stones History of psoriatic arthritis 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 (NSAID) Long-term current use of high risk medication other than anticoagulant Methotrexate, chcf, current use Abnormal renal function test Vitamin [...] for 4 Occurrences starting 07/25/2022 until 07/26/2023 [employer] Comment on above: Every 12 Weeks for [...] high risk medication other than anticoagulant Methotrexate, chcf, current use Vitamin D deficiency DDD (degenerative [...] for 4 Occurrences starting 01/23/2023 until 01/24/2024 [employer] Comment on above: Every 12 Weeks for [...] anemia Psoriasis Plaque psoriasis Hyperchromic anemia Methotrexate, long term care pharmacist, current use Long-term current use of high risk medication other than anticoagulant History of psoriatic arthritis History of kidney stones Abnormal renal function test Vitamin D deficiency 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 Every 12 Weeks for 4 Occurrences starting 07/31/2023 until 07/30/2024 [employer] Comment on above: Every 12 Weeks for 4 Occurrences startin g 07/31/2023 until 07/30/2024 End: 02-18-2025 Complete blood count with white cell differential, [...] both shoulders DDD (degenerative disc disease), cervical Macrocytic anemia Hyperchromic anemia Psoriasis Plaque psoriasis Methotrexate, long term care pharmacist, current use Long-term current use of high risk medication other than anticoagulant History of psoriatic arthritis History of kidney stones Abnormal renal function test Vitamin D deficiency 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 Every 12 Weeks for 4 Occurrences starting 02/19/2024 until 02/18/2025 [facility] Comment on above: Every 12 Weeks for 4 Occurrences startin g 02/19/2024 until 02/18/2025 End: 09-08-2020 Creatinine [Mass/Vol] CREATININE SERUM Lab Routine Psoriatic arthritis 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 Psoriatic spondylitis Psoriasis SAPHO syndrome History of psoriatic arthritis 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 (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, chcf, current use Long-term current use of high [...] psoriasis 6 Occurrences starting 10/11/2019 until 09/08/2020 [facility] [place] Comment on above: 6 Occurrences starting 10/11/2019 until 09/08/2020 End: 01-12-2021 Creatinine [Mass/Vol] CREATININE SERUM Lab Routine Psoriatic arthritis Psoriasis Plaque psoriasis Methotrexate, chcf, current use Long-term current use of high risk medication other than anticoagulant 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 non-steroidal anti-inflammatories (NSAID) History [...] Occurrences starting 01/13/2020 until 01/12/2021, 1 completed [employer] Comment on above: 6 Occurrences starting 01/13/2020 until 01/12/2021, 1 completed End: 01-08-2020 Creatinine [Mass/Vol] CREATININE SERUM Lab Routine Psoriatic arthritis Psoriatic spondylitis Psoriasis Plaque psoriasis Anemia, unspecified type Methotrexate, long term care pharmacist, current use Long-term current use of high risk medication other than anticoagulant 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 (NSAID) [...] cervical 6 Occurrences starting 01/04/2019 until 01/08/2020 [facility] Comment on above: 6 Occurrences starting 01/04/2019 until 01/08/2020 End: 07-13-2021 Creatinine [Mass/Vol] CREATININE SERUM Lab Routine Psoriatic arthritis 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 Psoriatic spondylitis Psoriasis SAPHO syndrome History of psoriatic arthritis 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 non-steroidal anti-inflammatories (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, [...] Occurrences starting 09/12/2020 until 07/13/2021, 1 completed [employer] Comment on above: 6 Occurrences starting 09/12/2020 until 07/13/2021, 1 completed End: 07-12-2022 Creatinine [Mass/volume] in Serum or Plasma CREATININE SERUM Lab Routine Psoriatic arthritis Psoriatic spondylitis Psoriasis Plaque psoriasis Anemia, unspecified type Methotrexate, chcf, current use Long-term current use of high risk medication other than anticoagulant 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 non-steroidal anti-inflammatories (NSAID) History [...] Occurrences starting 07/12/2021 until 07/12/2022, 1 completed [employer] Comment on above: Every 8 Weeks for 6 Occurrences starting 07/12/2021 until 07/12/2022, 1 completed End: 01-10-2023 Creatinine [Mass/volume] in Serum or Plasma CREATININE SERUM Lab Routine Psoriatic arthritis 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 Psoriatic spondylitis Plaque psoriasis Psoriasis SAPHO syndrome History of psoriatic arthritis 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 (NSAID) Long-term current use of high risk medication other than anticoagulant Methotrexate, long term care pharmacist, current use Every 8 Weeks for 6 Occurrences starting 01/10/2022 until 01/10/2023 [employer] Comment on above: Every 8 Weeks for 6 Occurrences starting 01/10/2022 until 01/10/2023 End: 07-26-2023 Creatinine [Mass/volume] in Serum or Plasma CREATININE SERUM Lab Routine Psoriatic arthritis 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 Psoriatic spondylitis Macrocytic anemia Plaque psoriasis Psoriasis SAPHO syndrome History of kidney stones History of psoriatic arthritis 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 non-steroidal anti-inflammatories (NSAID) Long-term current use of high risk medication other than anticoagulant Methotrexate, chcf, current use Abnormal renal function test Vitamin [...] for 4 Occurrences starting 07/25/2022 until 07/26/2023 [employer] Comment on above: Every 12 Weeks for 4 Occurrences startin g 07/25/2022 until 07/26/2023 End: 01-24-2024 Creatinine [Mass/volume] in Serum or Plasma CREATININE SERUM Lab Routine Psoriatic arthritis 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 Psoriatic spondylitis Plaque psoriasis Psoriasis SAPHO syndrome History of kidney stones History of psoriatic arthritis Long-term current use of high risk medication other than anticoagulant Methotrexate, chcf, current use Vitamin D deficiency DDD (degenerative [...] for 4 Occurrences starting 01/23/2023 until 01/24/2024 [employer] Comment on above: Every 12 Weeks for [...] anemia Psoriasis Plaque psoriasis Hyperchromic anemia Methotrexate, long term care pharmacist, current use Long-term current use of high risk medication other than anticoagulant History of psoriatic arthritis History of kidney stones Abnormal renal function test Vitamin D deficiency 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 Every 12 Weeks for 4 Occurrences starting 07/31/2023 until 07/30/2024 [employer] Comment on above: Every 12 Weeks for 4 Occurrences startin g 07/31/2023 until 07/30/2024 End: 02-18-2025 Creatinine [Mass/volume] in Serum or Plasma CREATININE [...] both shoulders DDD (degenerative disc disease), cervical Macrocytic anemia Hyperchromic anemia Psoriasis Plaque psoriasis Methotrexate, long term care pharmacist, current use Long-term current use of high risk medication other than anticoagulant History of psoriatic arthritis History of kidney stones Abnormal renal function test Vitamin D deficiency 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 Every 12 Weeks for 4 Occurrences starting 02/19/2024 until 02/18/2025 [facility] Comment on above: Every 12 Weeks for 4 Occurrences startin g 02/19/2024 until 02/18/2025 End: 05-03-2019 Creatinine mass conc CREATININE SERUM Routine Psoriatic arthritis 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 Psoriatic spondylitis SAPHO syndrome Psoriasis Anemia, unspecified type 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 (NSAID) 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 Methotrexate, chcf, current use Long-term current use of high [...] psoriasis 6 Occurrences starting 05/30/2018 until 05/03/2019 [facility] Work Phone: Comment on above: 6 Occurrences starting 05/30/2018 until 05/03/2019 End: 09-04-2019 Creatinine mass conc CREATININE SERUMLabRoutinePsoriatic arthritisPsoriatic arthropathy of distal interphalangeal (DIP) jointPsoriatic spondylitisHistory of psoriatic arthritisLong term current use of non-steroidal anti-inflammatories (NSAID)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Long-term current [...] starting 11/03/2018 un (more content not included)... 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 Psoriatic spondylitis Psoriasis SAPHO syndrome History of psoriatic arthritis 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 non-steroidal anti-inflammatories (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, chcf, current use Long-term current use of high [...] psoriasis 6 Occurrences starting 10/11/2019 until 09/08/2020 [facility] Comment on above: 6 Occurrences starting 10/11/2019 until 09/08/2020 End: 01-12-2021 CRP [Mass/Vol] C REACTIVE PROTEIN Lab Routi ne Psoriatic arthritis Psoriasis Plaque psoriasis Methotrexate, chcf, current use Long-term current use of high risk medication other than anticoagulant 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 (NSAID) [...] Occurrences starting 01/13/2020 until 01/12/2021, 1 completed [employer] Comment on above: 6 Occurrences starting 01/13/2020 until 01/12/2021, 1 completed End: 01-08-2020 CRP [Mass/Vol] C REACTIVE PROTEIN Lab Routi ne Psoriatic arthritis Psoriatic spondylitis Psoriasis Plaque psoriasis Anemia, unspecified type Methotrexate, long term care pharmacist, current use Long-term current use of high risk medication other than anticoagulant 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.] Occurrences starting 09/12/2020 until 07/13/2021, 1 completed [employer] Comment on above: 6 Occurrences starting 09/12/2020 until 07/13/2021, 1 completed End: 05-03-2019 CRP mass conc C REACTIVE PROTEIN Routine Psoriatic arthritis 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 Psoriatic spondylitis SAPHO syndrome Psoriasis Anemia, unspecified type 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 non-steroidal anti-inflammatories (NSAID) 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 systemic steroids Methotrexate, chcf, current use Long-term current use of high [...] psoriasis 6 Occurrences starting 05/30/2018 until 05/03/2019 [facility] Work Phone: Comment on above: 6 Occurrences starting 05/30/2018 until 05/03/2019 End: 09-04-2019 CRP mass conc C REACTIVE PROTEINLabRoutinePsoriatic arthritisPsoriatic arthropathy of distal interphalangeal (DIP) jointPsoriatic spondylitisHistory of psoriatic arthritisLong term current use of non-steroidal anti-inflammatories (NSAID)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 systemic steroidsLong-term current use of high risk medication other than anticoagulantMethotrexate, chcf, current useNoncompliancePatient non adherenceVitamin D deficiencyDDD (degenerative [...] [address] (more content not included)... 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 Methotrexate, chcf, current use Long-term current use of high [...] psoriasis 6 Occurrences starting 05/30/2018 until 05/03/2019 [facility] Work Phone: Comment on above: 6 Occurrences starting 05/30/2018 until 05/03/2019 End: 09-04-2019 SEDIMENTATION RATE, AUTOMATED SEDIMENTATION RATE, AUTOMATEDLabRoutinePsoriatic arthritisPsoriatic arthropathy of distal interphalangeal (DIP) jointPsoriatic spondylitisHistory of psoriatic arthritisLong term current use of non-steroidal anti-inflammatories (NSAID)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 systemic steroidsLong-term current use of high risk medication other than anticoagulantMethotrexate, chcf, current useNoncompliancePatient non adherenceVitamin D deficiencyDDD (degenerative disc disease), cervicalImpingement syndrome of both shouldersLumbosacral spondylosis without myelopathyOsteoarthritis of cervical spine, unspecified spinal osteoarthritis complication statusOsteoarthritis of both acromioclavicular jointsOsteoarthritis of both glenohumeral jointsOsteoarthritis of both hands, unspecified osteoarthritis typeOsteoarthritis of both hips, unspecified osteoarthritis typeOsteoarthritis of both wrists, unspecified osteoarthritis typePrimary osteoarthritis of both kneesPlaque psoriasisPsoriasis6 Occurrences starting (more content not included)... 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 (NSAID) [...] psoriasis 6 Occurrences starting 10/11/2019 until 09/08/2020 [facility] Comment on above: 6 Occurrences starting 10/11/2019 until 09/08/2020 End: 01-12-2021 SEDIMENTATION RATE, AUTOMATED SEDIMENTATION RATE, AUTOMATED Lab Routine Psoriatic arthritis Psoriasis Plaque psoriasis Methotrexate, long term care pharmacist, current use Long-term current use of high risk medication other than anticoagulant 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 (NSAID) [...] Occurrences starting 01/13/2020 until 01/12/2021, 1 completed [facility] Comment on above: 6 Occurrences starting 01/13/2020 until 01/12/2021, 1 completed End: 01-08-2020 SEDIMENTATION RATE, AUTOMATED SEDIMENTATION RATE, AUTOMATED Lab Routine Psoriatic arthritis Psoriatic spondylitis Psoriasis Plaque psoriasis Anemia, unspecified type Methotrexate, chcf, current use Long-term current use of high risk medication other than anticoagulant 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 systemic steroids 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 non-steroidal anti-inflammatories (NSAID) History [...] cervical 6 Occurrences starting 01/04/2019 until 01/08/2020 [facility] Comment on above: 6 Occurrences starting 01/04/2019 until 01/08/2020 End: 07-13-2021 SEDIMENTATION RATE, AUTOMATED SEDIMENTATION RATE, AUTOMATED Lab Routine Psoriatic arthritis 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 Psoriatic spondylitis Psoriasis SAPHO syndrome History of psoriatic arthritis 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 (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, chcf, current use Long-term current use of high [...] Occurrences starting 09/12/2020 until 07/13/2021, 1 completed [employer] Comment on above: 6 Occurrences starting 09/12/2020 until 07/13/2021, 1 completed End: 07-12-2022 SEDIMENTATION RATE, AUTOMATED SEDIMENTATION RATE, AUTOMATED Lab Routine Psoriatic arthritis Psoriatic spondylitis Psoriasis Plaque psoriasis Anemia, unspecified type Methotrexate, long term care pharmacist, current use Long-term current use of high risk medication other than anticoagulant 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 (NSAID) [...] Occurrences starting 07/12/2021 until 07/12/2022, 1 completed [employer] Comment on above: Every 8 Weeks for 6 Occurrences starting 07/12/2021 until 07/12/2022, 1 completed End: 01-10-2023 SEDIMENTATION RATE, AUTOMATED SEDIMENTATION RATE, AUTOMATED Lab Routine Psoriatic arthritis 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 Psoriatic spondylitis Plaque psoriasis Psoriasis SAPHO syndrome History of psoriatic arthritis 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 (NSAID) Long-term current use of high risk medication other than anticoagulant Methotrexate, long term care pharmacist, current use Every 8 Weeks for 6 Occurrences starting 01/10/2022 until 01/10/2023 [employer] Comment on above: Every 8 Weeks for 6 Occurrences starting 01/10/2022 until 01/10/2023 End: 07-26-2023 SEDIMENTATION RATE, AUTOMATED SEDIMENTATION RATE, AUTOMATED Lab Routine Psoriatic arthritis 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 Psoriatic spondylitis Macrocytic anemia Plaque psoriasis Psoriasis SAPHO syndrome History of kidney stones History of psoriatic arthritis 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 non-steroidal anti-inflammatories (NSAID) Long-term [...] for 4 Occurrences starting 07/25/2022 until 07/26/2023 [employer] Comment on above: Every 12 Weeks for 4 Occurrences startin g 07/25/2022 until 07/26/2023 End: 01-24-2024 SEDIMENTATION RATE, AUTOMATED SEDIMENTATION RATE, AUTOMATED Lab Routine Psoriatic arthritis 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 Psoriatic spondylitis Plaque psoriasis Psoriasis SAPHO syndrome History of kidney stones History of psoriatic arthritis Long-term current use of high risk medication other than anticoagulant Methotrexate, chcf, current use Vitamin D deficiency DDD (degenerative [...] for 4 Occurrences starting 01/23/2023 until 01/24/2024 [employer] Comment on above: Every 12 Weeks for [...] anemia Psoriasis Plaque psoriasis Hyperchromic anemia Methotrexate, long term care pharmacist, current use Long-term current use of high risk medication other than anticoagulant History of psoriatic arthritis History of kidney stones Abnormal renal function test Vitamin D deficiency 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 Every 12 Weeks for 4 Occurrences starting 07/31/2023 until 07/30/2024 [employer] Comment on above: Every 12 Weeks for 4 Occurrences startin g 07/31/2023 until 07/30/2024 End: 02-18-2025 SEDIMENTATION RATE, AUTOMATED SEDIMENTATION RATE, AUTOMATED Lab [...] both shoulders DDD (degenerative disc disease), cervical Macrocytic anemia Hyperchromic anemia Psoriasis Plaque psoriasis Methotrexate, long term care pharmacist, current use Long-term current use of high risk medication other than anticoagulant History of psoriatic arthritis History of kidney stones Abnormal renal function test Vitamin D deficiency 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 Every 12 Weeks for 4 Occurrences starting 02/19/2024 until 02/18/2025 [employer] Comment on above: Every 12 Weeks for 4 Occurrences startin g 02/19/2024 until 02/18/2025 VITAMIN D, (1,25 DIHYDROXY) VITAMIN D, (1,25 DIHYDROXY) Lab Routine Psoriatic arthritis 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 Psoriatic spondylitis Psoriasis SAPHO syndrome History of psoriatic arthritis 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 non-steroidal anti-inflammatories (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, chcf, current use Long-term current use of high [...] osteoarthritis type Plaque psoriasis 07/13/2020 9:08 AM [facility] Immunizations Immunization Date Immunization Notes Care Provider Ortega kent 01-15-2024 influenza virus vaccine, unspecified formulation Yusuf BABATUNDE [facility] 09-07-2020 SARS-CoV-2 (COVID-19 ) mRNA BNT-162b2 vax Yakelin Jakc [facility] 08-17-2020 SARS-CoV-2 (COVID-19 ) mRNA BNT-162b2 vax Yakelin Jack [facility] 11-15-2019 tetanus toxoid, reduced diphtheria toxoid, and acellular pertussis vaccine, adsorbed Yakelin Jack [facility] NEGATED: Highlighted row has not occurred!02-15-2023 influenza virus vaccine, unspecified formulation Rodrigo Brink [facility] Payers Date Payer Category Payer Medicaid [id number] 2020 [place] Health [place] [facility] [place] [facility] [id number] 2018 Medicaid (Managed Care) [employer] [id number] 2018 Unknown [employer] [place] xxxxxxxxxxx 2018-Present [id number]. [id number] 2018 Unknown [employer] [place] [id number] 2018-Present [id number] [id number]. [id number] 2018 Unknown [id number]. 1.13.172.2. 7.3.589926.315 1966 Unknown [id number] 2.16.840.1.072825.3.579.2. 647 1966 Unknown [id number] 2.16.840.1.303640.3.579.2. 983 1966 Unknown [id number] 2.16.840.1.763878.3.579.2. 983 1966 Unknown [id number] 2.16.840.1.869557.3.579.2. 593 1966 Unknown [id number] 2.16.840.1.236713.3.579.2. 593 1966 Unknown [id number] 2.16.840.1.695360.3.579.2. 593 1966 Unknown [id number] 2.16.840.1.819121.3.579.2. 593 1966 Unknown [id number] 2.16.840.1.690558.3.579.2. 593 1966 Unknown [id number] 2.16.840.1.445265.3.579.2. 593 1966 Unknown [id number] 2.16.840.1.367658.3.579.2. 593 1966 Unknown [id number] 2.16.840.1.078682.3.579.2. 593 1966 Unknown [id number] 2.16.840.1.422787.3.579.2. 593 1966 Unknown [id number] 2.16.840.1.718156.3.579.2. 593 1966 Unknown [id number] 2.16.840.1.458109.3.579.2. 593 1966 Unknown [id number] 2.16.840.1.640078.3.579.2. 593 1966 Unknown [id number] 2.16.840.1.138963.3.579.2. 593 1966 Unknown [id number] 2.16.840.1.167664.3.579.2. 593 1966 Unknown [id number] 2.16.840.1.474342.3.579.2. 593 1966 Unknown [id number] 2.16.840.1.030138.3.579.2. 593 1966 Unknown [id number] 2.16.840.1.401616.3.579.2. 593 1966 Unknown [id number] 2.16.840.1.925399.3.579.2. 593 1966 Unknown [id number] 2.16.840.1.772713.3.579.2. 593 1966 Unknown [id number] 2.16.840.1.325085.3.579.2. 593 1966 Unknown [id number] 2.16.840.1.389132.3.579.2. 593 1966 Unknown [id number] 2.16.840.1.062009.3.579.2. 593 1966 Unknown [id number] 2.16.840.1.722381.3.579.2. 983 1966 Unknown [id number] 2.16.840.1.974617.3.579.2. 983 1966 Unknown [id number] 2.16.840.1.667463.3.579.2. 983 1966 Unknown [id number] 2.16.840.1.551366.3.579.2. 983 1966 Unknown [id number] 2.16.840.1.410142.3.579.2. 1259 1966 Unknown [id number] 2.16.840.1.318531.3.579.2. 983 1966 Unknown [id number] 2.16.840.1.527753.3.579.2. 983 1966 Unknown [id number] 2.16.840.1.049748.3.579.2. 196 1966 Unknown [id number] 2.16.840.1.502632.3.579.2. 196 1966 Unknown [id number] 2.16.840.1.485281.3.579.2. 727 1966 Unknown [id number] 2.16.840.1.523976.3.579.2. 727 1966 Unknown [id number] 2.16.840.1.124790.3.579.2. 727 1966 Unknown [id number] 2.16.840.1.547278.3.579.2. 727 1966 Unknown [id number] 2.16.840.1.517714.3.579.2. 727 1966 Unknown [id number] 2.16.840.1.780431.3.579.2. 727 1966 Unknown [id number] 2.16.840.1.165326.3.579.2. 727 1966 Unknown [id number] 2.16.840.1.114675.3.579.2. 727 1966 Unknown [id number] 2.16.840.1.104356.3.579.2. 727 1959 Unknown [id number] 1959 Unknown [id number] 2.16.840.1.858518.19 Social History Date Type Detail Facility Start: 03-29-2018 End: 12-04-2024 Tobacco smoking status NHIS Former smoker [facility] Work Phone: Start: 1965 Sex Assigned At Not on file O [facility] Work Phone: Start: 03-29-2018 End: 01-10-2022 Tobacco Comment Quit 10/2017 [facility] Start: 09-03-2018 End: 08-19-2024 Alcohol intake No [facility] Start: 05-06-2019 End: 08-19-2024 Alcohol intake Current non-drinker of alcohol (finding) [facility] Start: 09-09-2019 End: 01-10-2022 Tobacco use and exposure Never used [facility] Exposure to SARS-CoV -2 (event) Not sure [facility] History of tobacco use Current smoker [facility] Start: 07-25-2022 End: 08-19-2024 History of Social function [facility] Start: 12-31-2017 Gender identity Identifies as male gender (finding) [facility] Tobacco smoking status Never [facility] History of tobacco use Cigarette Smoker [facility] Start: 01-04-2023 End: 03-04-2024 Alcoholic beverage intake Lifetime non-drinker (finding) [facility] Start: 12-31-2017 Sex Male (finding) [facility] Sexual Orientation [facility] Functional Status Date Assessment Result Facility 10-01-2023 Functional Status N/A [facility] 03-29-2018 Are you deaf, or do you have serious difficulty hearing No 03/29/2018 7:13 AM Juju Price LPN [facility] 03-29-2018 Are you blind, or do you have serious difficulty seeing, even when wearing glasses No 03/29/2018 7:13 AM Juju Price LPN [facility] 03-29-2018 Do you have serious difficulty walking or climbing stairs No 03/29/2018 7:13 AM Juju Price LPN [facility] 03-29-2018 Do you have difficul ty dressing or bathing No 03/29/2018 7:13 AM Juju Price LPN [facility] 03-29-2018 Because of a physica l, mental, or emotional condition, do you have difficulty doing errands alone such as visiting a physician's office or shopping No 03/29/2018 7:13 AM Juju Price LPN [facility] Mental Status Date Assessment Result Facility 03-29-2018 Because of a physica l, mental, or emotional condition, do you have serious difficulty concentrating, remembering, or making decisions No 03/29/2018 7:13 AM Juju Price LPN [facility] Clinical Notes 07-12-2021 to 12-08-2024 Tra Mahmood Jr., DO - 08/19/2024 9:00 AM Hyun Antoine, [facility] [facility] [employer] - 03/04/2024 8:35 AM Carmen Mahmood Jr., DO - 02/19/2024 8:30 AM ESTLaboratory Note Date & Type Note Facility 12-08-2024 Hospital Discharge instructions Patient Education 12/08/2024 13:35:42 Kidney Stones, Aqgj-[id number]-Tddt Kidney Stones Kidney stones are rock-like masses [...] pee. The stone usually leaves your body through your pee. A doctor may need to take out the stone. What are the causes? Kidney stones may be caused by: Too much calcium in the body. This may be caused by too much parathyroid hormone in the blood. Uric acid crystals in the bladder. The body makes uric acid when you eat certain foods. Narrowing of one or both of the ureters. A kidney blockage that you were born with. Past surgery on the kidney or the ureters. What increases the risk? You are more likely to develop this condition if: You have had a kidney stone in the past. Other people in your family have had kidney stones. You do not drink enough water. You eat a diet that is high in protein, salt (sodium), or sugar. You are very overweight (obese). What are the signs or symptoms? Symptoms of a kidney stone may include: Pain in the side of the belly, right below the ribs. Pain usually spreads to the groin. Needing to pee often or right away. Pain when peeing. Blood in your pee. Feeling like you may vomit (nauseous). Vomiting. Fever and chills. How is this treated? Treatment depends on the size, location, and makeup of the kidney stones. The stones will often pass out of the body when you pee. You may need to: Drink more fluid to help pass the stone. ?In some cases, you may be given fluids through an IV tube at the hospital. Take medicine for pain. Change your diet to help keep kidney stones from coming back. Sometimes, you may need: A procedure to break up kidney stones using a beam of light (laser) or shock waves. Surgery to remove the kidney stones. Follow these instructions at home: Medicines Take ikcy-bjp-cetsjgh and prescription medicines only as told by your doctor. Ask your doctor if the medicine prescribed to you requires you to avoid driving or using machinery. Eating and drinking Drink enough fluid to keep your pee pale yellow. ?You may be told to drink at least 8 10 glasses of water each day. This will help you pass the stone. If told by your doctor, change your diet. You may be told to: ?Limit how much salt you eat. ?Eat more fruits and vegetables. ?Limit how much meat, poultry, fish, and eggs you eat. Follow instructions from your doctor about what you may eat and drink. General instructions Collect pee samples as told by your doctor. You may need to collect a pee sample: ?24 hours after a stone comes out. ?8 12 weeks after a stone comes out, and every 6 12 months after that. Strain your pee every time you pee. Use the strainer that your doctor recommends. Do not throw out the stone. Keep it so that it can be tested by your doctor. Keep all follow-up visits. You may need X-rays and ultrasounds to make sure the stone has come out. How is this prevented? To prevent another kidney stone: Drink enough fluid to keep your pee pale yellow. This is the best way to prevent kidney stones. Eat healthy foods. Avoid certain foods as told by your doctor. You may be told to eat less protein. Stay at a healthy weight. Where to find more information National Kidney Foundation (NKF): kidney.org Urology Care Foundation (UCF): urologyhealth.org Contact a doctor if: You have pain that gets worse or does not get better with medicine. Get help right away if: You have a fever or chills. You get very bad pain. You get new pain in your belly. You faint. You cannot pee. This information is not intended to replace advice given to you by your health care provider. Make sure you discuss any questions you have with your health care provider. Document Revised: 11/10/2022 Document Reviewed: 11/10/2022 [employer] Patient Education 2023 [employer]. Follow Up Care 10/06/2024 12:56:11 With:BABATUNDE MASON, Yusuf Cortés, URL Address: [address] [place] [id number] When: Unknown [facility] Emy 12-08-2024 Note Patient Education Urology Kidney Stones Kidney stones are rock-like masses that form inside of the kidneys. Kidneys are organs that make pee (urine). A kidney stone may move into other parts of the urinary tract, including: ??? The tubes that connect the kidneys to the bladder (ureters). ??? The bladder. ??? The tube that carries urine out of the body (urethra). Kidney stones can cause very bad pain and can block the flow of pee. The stone usually leaves your body through your pee. A doctor may need to take out the stone. What are the causes? Kidney stones may be caused by: ??? Too much calcium in the body. This may be caused by too much parathyroid hormone in the blood. ??? Uric acid crystals in the bladder. The body makes uric acid when you eat certain foods. ??? Narrowing of one or both of the ureters. ??? A kidney blockage that you were born with. ??? Past surgery on the kidney or the ureters. What increases the risk? You are more likely to develop this condition if: ??? You have had a kidney stone in the past. ??? Other people in your family have had kidney stones. ??? You do not drink enough water. ??? You eat a diet that is high in protein, salt (sodium), or sugar. ??? You are very overweight (obese). What are the signs or symptoms? Symptoms of a kidney stone may include: ??? Pain in the side of the belly, right below the ribs. Pain usually spreads to the groin. ??? Needing to pee often or right away. ??? Pain when peeing. ??? Blood in your pee. ??? Feeling like you may vomit (nauseous). ??? Vomiting. ??? Fever and chills. How is this treated? Treatment depends on the size, location, and makeup of the kidney stones. The stones will often pass out of the body when you pee. You may need to: ??? Drink more fluid to help pass the stone. ? In some cases, you may be given fluids through an IV tube at the hospital. ??? Take medicine for pain. ??? Change your diet to help keep kidney stones from coming back. Sometimes, you may need: ??? A procedure to break up kidney stones using a beam of light (laser) or shock waves. ??? Surgery to remove the kidney stones. Follow these instructions at home: Medicines ??? Take qfvz-qcr-xfhaaca and prescription medicines only as told by your doctor. ??? Ask your doctor if the medicine prescribed to you requires you to avoid driving or using machinery. Eating and drinking ??? Drink enough fluid to keep your pee pale yellow. ? You may be told to drink at least 8?10 glasses of water each day. This will help you pass the stone. ??? If told by your doctor, change your diet. You may be told to: ? Limit how much salt you eat. ? Eat more fruits and vegetables. ? Limit how much meat, poultry, fish, and eggs you eat. ??? Follow instructions from your doctor about what you may eat and drink. General instructions ??? Collect pee samples as told by your doctor. You may need to collect a pee sample: ? 24 hours after a stone comes out. ? 8?12 weeks after a stone comes out, and every 6?12 months after that. ??? Strain your pee every time you pee. Use the strainer that your doctor recommends. ??? Do not throw out the stone. Keep it so that it can be tested by your doctor. ??? Keep all follow-up visits. You may need X-rays and ultrasounds to make sure the stone has come out. How is this prevented? To prevent another kidney stone: ??? Drink enough fluid to keep your pee pale yellow. This is the best way to prevent kidney stones. ??? Eat healthy foods. ??? Avoid certain foods as told by your doctor. You may be told to eat less protein. ??? Stay at a healthy weight. Where to find more information ??? National Kidney Foundation (NKF): kidney.org ??? Urology Care Foundation (UCF): urologyhealth.org Contact a doctor if: ??? You have pain that gets worse or does not get better with medicine. Get help right away if: ??? You have a fever or chills. ??? You get very bad pain. ??? You get new pain in your belly. ??? You faint. ??? You cannot pee. This information is not intended to replace advice given to you by your health care provider. Make sure you discuss any questions you have with your health care provider. Document Revised: 11/10/2022 Document Reviewed: 11/10/2022 [employer] Patient Education ? 2023 [employer]. [facility] 08-19-2024 History of Present illness Narrative Subjective History of Present Illness Patient states he seen a board writer Dr. Fawad Driver but they did not [...] not bothering the patient. Presence of Pain: reports pain/discomfort Pain Location: (Everywhere) Select Pain Scale: DVPRS (Defense and Veterans Pain Rating Scale) (Adult-Cognitively Intact) DVPRS: Rest: 9- severe pain DVPRS: Activity: 9- severe pain Select Pain Scale: DVPRS (Defense and Veterans Pain Rating Scale) (Adult-Cognitively Intact) Pain Frequency: constant Pain Quality: aching. Total time spent in this encounter was 35 minutes. Patient is being evaluated for an unstable chronic illness that increase morbidity and mortality. Patient is here today for her 6 Month Follow-up. Patient states he is about the same since his last appointment. Patient states he has joint pain every day. No trouble with kidney stones. Muscle spasms are the same. Joint pain is yes. Neck pain is yes. Rash/Psoriasis is the same. Weakness is some but not much. Still bruises easy. Taltz shot is once a month. Objective Review of Systems Constitutional: Positive for unexpected weight change. Wt loss -unintentional: continues HENT: Negative. Eyes: Negative. Respiratory: Negative. Cardiovascular: Negative. Gastrointestinal: S/P hernia surgery Endocrine: Negative. Genitourinary: Kidney stones Musculoskeletal: Positive for arthralgias, myalgias, neck pain and neck stiffness. Muscle spasms Skin: Positive for rash. psoriasis Allergic/Immunologic: Negative. [...] intact. Motor: Weakness present. 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 Oriented to person, place, and time. Cranial Nerves CN III, IV, : Extraocular movements intact bilaterally. Extraocular movements intact bilaterally. Pupils equal round and reactive to light bilaterally. Sensory Normal sensation. 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 Assessment and Plan Encounter [...] DDD (degenerative disc disease), cervical SAPHO syndrome Psoriasis Plaque psoriasis Long-term current use of high risk medication [...] your patient. 3. Hgb was low at 12.6 and is now normal at 14.3 4. 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 Allergy to Humira - makes the psoriasis worse 6. Allergy to Cosentyx - makes the psoriasis worse 7. Patient has stopped Methotrexate 8 Enbrel did not help 9. Remicade did not help 10. Methotrexae did not help 11. Otezla did not help 12. Chronic Pain Management F/U per Dr. Solano in [place]. 13. TB test was negative 14. Negative HLA-B27, ANCA, JOVAN, Hep A&B&C serology, Celiac, CCP, 15. KRISTIE level was normal at 29 16. Rx given for Triamcinolone ointment 17. Hold Taltz month before and month after any surgery or live vaccine (shingles). Hold taltz anytime have an infection can restart once off of ATB and/or antiviral and free of infection. Hold Taltz anytime have open wound and can restart once wound has healed. 18. ESR was normal at 8 and still is at 1 19. Monitor Vit D level every 6 -12 months if remains low rec: eval by endo 20. CRP was negative at < 0.50 and still is at < 0.5 21. Patient declines referral to ortho 22. At patient's request will set up with sports medicine - tried to do that again for the patient but patient declined again 23. Lab on or about 02/06/2024 24. Patient stopped Prednisone due to swelling and headaches and wt gain. 07/10/2022 25. Derm F/U per Dr. Bera Antoine and Dr. Bran 26. Repeat Vit D level on or about 02/06/2024 with copy to PCP 27. Sulindac stopped due to renal insuff 28. Tatz per dermatology 29. 90 day supply on medications. 30. Urology Follow-up per [place] 31. Patient declined a referral to nephrology 32. At patient's request will Follow-up with me in 6 months documented in this encounter [facility] 03-04-2024 History of Present illness Narrative Images from the original note were not included. Glenda Buckley is a 57 y.o. male who presents for the following: Psoriasis Location: Trunk, and arms Duration: Diagnosed initially in 2018. Presenting today for yearly follow up Associated Factors: scale on scalp, chest, and shins today. Joint pain Initial BSA: 5% 5457-2095. 15% 2020. <1% 2021. Joint pain present: Yes Treatments tried: Tried /failed Clobetasol 0.05% cream, Tazorotene 0.1% cream, Betamethasone Dip 0.05% ointment. Triamcinolone 1% cream and ointment, Otezla, Remicade infusions. Patient has allergies to Humira and Cosentyx. Current treatment: Taltz 80mg/ml sq q 28 days, Halobetasol 0.05% cream BID/PRN for flares, and Clobetasol 0.05% cream as well for flares BID. Switches from one to other to prevent intolerance. Does have to use topical for break through flares Last TB test: 01/04/2023-lab order was faxed on 02/07 to [facility] but pt states he never got them done Taltz approved through 05/02/2023. Halobetasol established patient All pertinent medical history, medications, and allergies were reviewed. General Exam: alert, oriented to person, place, and time, normal affect, well appearing Unaccompanied A focused exam completed based on patient reported problems, see below: 1. Psoriatic arthritis (CMS/HCC) (3) Left Hand - Anterior, Mid Back, Right Hand - Anterior Patient admits joint pain is much improved on Taltz Happy with treatment, continue Taltz for psoriatic arthritis and plaque psoriasis 2. Psoriasis vulgaris (CMS/HCC) Chest - Medial (Center), Left Lower Leg - Anterior, Right Lower Leg - Anterior Improved well-marginated erythematous papules/plaques with silvery scale. Slight flare today on legs, left arm, and scalp. BSA >1% PASI 1.8, SPGA 1 The patient was informed that psoriasis is a chronic condition that can be controlled but not cured. Plan to continue current treatment plan at this time. Taltz 80mg/ml sq q 28 days, Halobetasol cream and or/Clobetasol cream BID/PRN for flares. Refill of Halobetasol cream sent to pharmacy per patient request. Annual TB due-lab order printed. Patient notified, voiced understanding. Patient sees Rheumatology for psoriatic arthritis. Denies lethargy, lingering sicknesses, and weight loss. Reviewed to hold medication for any active infection, can resume once infection has cleared. Notify clinic if side effects occur or if flaring despite treatment. Plan to follow up in one year. Patient is well controlled on biologic. Recommend remaining on biologic. Insurance companies that force providers to change therapies could cause plaque psoriasis flairs and worsening psoriatic arthritis and are responsible for worse outcomes Related Medications clobetasol (Temovate) 0.05 % cream Twice daily for flares Taltz 80 MG/ML injection INJECT 1 ML (80 MG) UNDER THE SKIN EVERY 28 DAYS halobetasol (UltraVATE) 0.05 % cream APPLY TO AFFECTED AREAS TWICE A DAY NEEDED FOR PSORIASIS FLARE *AVOID FACE/NECK/GROIN* Next Visit: 1 year psoriasis documented in this encounter [facility] 02-19-2024 History of Present illness Narrative Subjective History of Present Illness Patient states he seen a board writer Dr. Fawad Driver but they did not [...] not bothering the patient. Presence of Pain: reports pain/discomfort Select Pain Scale: DVPRS (Defense and Veterans Pain Rating Scale) (Adult-Cognitively Intact) DVPRS: Rest: 8- severe pain Select Pain Scale: DVPRS (Defense and Veterans Pain Rating Scale) (Adult-Cognitively Intact). Total time spent in this encounter was 31 minutes. Patient is being evaluated for an unstable chronic illness that increase morbidity and mortality. Patient is here for 6 month Follow-up. Patient states is doing ok overall. States has pain everyday all over his body. Patient is still trying to loose wt. The kidney stones are coming out elevating his kidney tests as his stones are very big and is going to see a surgeon in [place] in 04/2024 as his stones are too big for [place]. Muscle spasms are about the same. Joint pain is yes. All though his body. Neck pain is yes. Psoriasis/Rash is the same. Only a couple small spots. Weakness in arms and hands sometimes but not too bad. Still bruising easy. I have been told that patient is on a high risk medication as it either treats cancer or requires blood work every 2-3 months. Taltz is one shot a month. Objective Review of Systems Constitutional: Positive for unexpected weight change. Wt loss -unintentional: continues HENT: Negative. Eyes: Negative. Respiratory: Negative. Cardiovascular: Negative. Gastrointestinal: S/P hernia surgery Endocrine: Negative. Genitourinary: Kidney stones Musculoskeletal: Positive for arthralgias, myalgias, neck pain and neck stiffness. Muscle spasms Skin: Positive for rash. psoriasis Allergic/Immunologic: Negative. [...] intact. Motor: Weakness present. 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 Oriented to person, place, and time. Cranial Nerves CN III, IV, : Extraocular movements intact bilaterally. Extraocular movements intact bilaterally. Pupils equal round and reactive to light bilaterally. Sensory Normal sensation. 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 Assessment and Plan Encounter [...] both shoulders DDD (degenerative disc disease), cervical Macrocytic anemia Hyperchromic anemia Psoriasis Plaque psoriasis Methotrexate, long term care [...] your patient. 3. Hgb was low at 13.0 and still is at 12.6 4. 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 Allergy to Humira - makes the psoriasis worse 6. Allergy to Cosentyx - makes the psoriasis worse 7. RX given for Methotrexate 7 pills one day a week 8 Enbrel did not help 9. Remicade did not help 10. Methotrexae did not help 11. Otezla did not help 12. Chronic Pain Management F/U per Dr. Solano in [place]. 13. TB test was negative 14. Negative [...] normal at 4 and still is at 8 19. Monitor Vit D level every 6 -12 months if remains low rec: eval by endo 20. CRP was negative at < 0.50 and still is at < 0.50 21. Patient declines referral to ortho 22. At patient's request will set up with sports medicine - will try to do that again for the patient but patient declines again 23. Lab on or about 05/08/2024 and every 3 months thereafter 24. Patient stopped Prednisone due to swelling and headaches and wt gain. 07/10/2022 25. Derm F/U per Dr. Bear Antoine and Dr. Bran 26. Repeat Vit D level on or about 08/05/2024 with copy to PCP 27. Sulindac stopped due to renal insuff 28. Tatz per dermatology 29. 90 day supply on medications. 30. Urology Follow-up per [place] 31. Follow-up with me in 6 months 32. Patient declines a referral to nephrology documented in this encounter [facility] 02-12-2024 Evaluation + Plan note Future Scheduled TestsBasic Metabolic Panel 02/12/24 [facility] Note Patient Education Nutrition BMI for [...] for Disease Control and Prevention: cdc.gov ??? [place] Heart Association: heart.org ??? National Heart, Lung, and Blood [place]: nhlbi.nih.gov This information is not intended to replace advice given to you by your health care provider. Make sure you discuss any questions you have with your health care provider. Document Revised: 12/07/2022 Document Reviewed: 11/30/2022 [employer] Patient Education ? 2023 [employer] [facility] 10-01-2023 Hospital Discharge instructions Patient Education 10/01/2023 14:18:46 Kidney Stones, [id number] Kidney Stones Kidney stones are rock-like masses [...] Follow these instructions at home: Medicines Take iyln-zhi-[id number] and prescription medicines only as told by [...] provider. Document Revised: 11/21/2021 Document Reviewed: 11/21/2021 [employer] Patient Education 2022 [employer] Follow Up Care 2023 13:55:17 With:BABATUNDE MASON, Yusuf Cortés, URL Address: [facility] [address] , [place] [address] [phone] When: Unknown [facility] 07-31-2023 History of Present illness Narrative Subjective History of Present Illness Patient states he seen a board writer Dr. Fawad Driver but they did not [...] intact. Motor: Weakness present. 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 Oriented to person, place, and time. Cranial Nerves CN III, IV, : Extraocular movements intact bilaterally. Extraocular movements intact bilaterally. Pupils equal round and reactive to light bilaterally. Sensory Normal sensation. 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 Assessment and Plan Encounter [...] anemia Psoriasis Plaque psoriasis Hyperchromic anemia Methotrexate, long term care pharmacist, current use [...] 12.7 and still is at 13.0 4. DIRECTOR ENTERPRISE SALES was elevated at 1.53 with GFR of [...] Pain Management F/U per Dr. Solano in [place]. 13. TB test was negative 14. Negative [...] 07/10/2022 25. Derm F/U per Dr. Bear Antonie and Dr. Bran 26. Repeat Vit D level on or about 01/15/2024 with copy to PCP 27. Sulindac stopped due to renal insuff 28. Tatz per dermatology 29. 90 day supply on medications. 30. Urology Follow-up per [place] 31. Follow-up with me in 6 months documented in this encounter [facility] 07-31-2023 Miscellaneous Notes Addended by: TRA MAHMOOD on: 07/31/2023 09:22 AM Modules accepted: Orders documented in this encounter [facility] 07-31-2023 Note Addended by: TRA VILLALPANDO on: 07/31/2023 09:22 AM Modules accepted: Orders [facility] 01-23-2023 History of Present illness Narrative Subjective History of Present Illness Patient states he seen a board writer Dr. Fawad Driver but they did not [...] intact. Motor: Weakness present. 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 Oriented to person, place, and time. Cranial Nerves CN III, IV, : Extraocular movements intact bilaterally. Extraocular movements intact bilaterally. Pupils equal round and reactive to light bilaterally. Sensory Normal sensation. 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 Assessment and Plan Encounter [...] 3. Hgb was low at 12.7 4. DIRECTOR ENTERPRISE SALES was elevated at 1.53 with GFR of 47 5. Allergy to Humira - makes the psoriasis worse 6. Allergy to Cosentyx - makes the psoriasis worse 7. Call if need Rx's 8 Enbrel did not help 9. Remicade did not help 10. Methotrexae did not help 11. Otezla did not help 12. Chronic Pain Management F/U per Dr. Solano in [place]. 13. TB test was negative 14. Negative [...] Tatz per dermatology documented in this encounter [facility] 07-25-2022 History of Present illness Narrative History of Present Illness Patient states he seen a board writer Dr. Fawad Driver but they did not [...] intact. Motor: Weakness present. 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 Behavior: Behavior normal. Thought Content: Thought content normal. Judgment: Judgment normal. Neurological Exam Mental Status Alert. Oriented to person, place, and time. Cranial Nerves CN III, IV, : Extraocular movements intact bilaterally. Extraocular movements intact bilaterally. Pupils equal round and reactive to light bilaterally. Sensory Normal sensation. 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 Assessment and Plan Encounter Diagnoses Name Primary? 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 Hgb is low at 12.7 4. DIRECTOR ENTER[employer] SALES is elevated at 1.53 with GFR of [...] Pain Management F/U per Dr. Solano in [place]. 13. TB test was negative 14. Negative [...] copy to PCP documented in this encounter [facility] 06-17-2022 Evaluation note Encounter Date Diagnosis Assessment [...] your family doctor for recheck this week. Sensitive Object Other 03-14-2023 NoteCONSULTATION CONSULTATION DATE: 06/13/2022 FOLLOW [...] asked him to decrease the use of Cowley to 45 pills to last him one month's time. He just recently had a prescription filled for Cowley 60 pills. I have asked him to make this last for six weeks. We will have him return to the office in six weeks' time or sooner if needed.[facility] [id number] NoteCONSULTATION CONSULTATION DATE: 02/16/2022 HISTORY OF PRESENT ILLNESS: This is a pleasant, 56-year-old gentleman returning to the clinic for a three month follow up for chronic neck and lower back pain. The patient had radiofrequency ablations to his cervical area in August of 2021. Patient has had pain improvement since then, but does have residual tightness. Medications currently include diclofenac 75 mg b.i.d., Cowley 5/325 b.i.d., gabapentin 300 mg b.i.d. and [...] or injuries. 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 Fawad Driver but they did not help treat is psoriasis. DX with [facility] 2011. Humira and cosentyx made the psoriasis worse and Methotrexate and Enbrel and Remicade and otezla quit working. Stelara started 05/2018. Stelara has been helping and not bothering the patient. Raghavla stopped by derm 04/2021. Talolimpia started by derm 05/2021. Presence of Pain: [...] his 6 Month F/U. 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 Patient [...] intact. Motor: Weakness present. 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 Behavior: Behavior normal. Thought Content: Thought content normal. Judgment: Judgment normal. Neurological Exam Mental Status Alert. Oriented to person, place, and time. Cranial Nerves CN III, IV, : Extraocular movements intact bilaterally. Extraocular movements intact bilaterally.Pupils equal round and reactive to light bilaterally. Sensory Normal sensation. 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 Assessment and Plan Encounter Diagnoses Name Primary? 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 Time was spent with [...] Pain Management F/U per Dr. Solano in [place]. 13. TB test was negative 14. Negative [...] me in 6 [facility] NoteCONSULTATION PROCEDURE DATE: 11/24/2021 PROCEDURE NOTE PREOPERATIVE [...] will be followed up in the office.[facility] [id number] NoteCONSULTATION CONSULTATION DATE: 10/27/2021 HISTORY OF PRESENT [...] a menthol heat rub. Current medications include Cowley 5/325 b.i.d., diclofenac 75 mg b.i.d., gabapentin [...] Patient agrees with this plan of care.[facility] [id number] History of Present illness Narrative* Tra Mahmood Jr., DO - 07/12/2021 8:30 AM EDT History of Present Illness Patient states he seen a board writer Dr. Fawad Driver but they did not [...] intact. Motor: Weakness present. 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 Behavior: Behavior normal. Thought Content: Thought content normal. Judgment: Judgment normal. Neurological Exam Mental Status Alert. Oriented to person, place, and time. Cranial Nerves CN III, IV, : Extraocular movements intact bilaterally. Extraocular movements intact bilaterally.Pupils equal round and reactive to light bilaterally. Sensory Normal sensation. 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 Assessment and Plan Encounter Diagnoses Name Primary? Psoriatic arthritis Psoriatic spondylitis Psoriasis Plaque psoriasis Anemia, unspecified type Methotrexate, chcf, current use Long-term current use of high risk medication other than anticoagulant 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 systemic steroids 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 non-steroidal anti-inflammatories (NSAID) History [...] Pain Management F/U per Dr. Solano in [place]. 13. TB test was negative 14. Negative [...] Bear Antoine. 26. Derm wants to change Angelina to [place] 27. F/U with me in [address] [facility] [address] [facility] Future Appointments Appointment Date:11/15/2022 04:40:00 PM Scheduled Provider:Rodrigo Brink MD Location:[facility] Appointment Type:FM Open [facility] Future Appointments Appointment Date:02/15/2023 11:20:00 AM Scheduled Provider:Rodrigo Brink MD Location:[facility] Appointment Type: Open Diagnostic Tests Pending * Comprehensive Metabolic Panel 11/15/22 * Vitamin B12 Level 11/15/22 * Folate [facility]22 [facility] Future Appointments Appointment Date:08/16/2023 01:15:00 PM Scheduled Provider:Rodrigo Brink MD Location:[facility] Appointment Type:FM Open Appointment Date:10/01/2023 01:00:00 PM Scheduled Provider:Yusuf FINE MD Location:[facility] Appointment Type:URO New Patient Future Scheduled Tests Radiology* Echo Transthoracic Complete 05/17/23 [facility] + Plan note Future Appointments Appointment Date:03/20/2024 10:00:00 AM Scheduled Provider:Rodrigo Brink MD Location:[facility] Appointment Type: Open Diagnostic Tests Pending * PSA Screen, Total 10/01/23 Future Scheduled Tests Radiology* Echo Transthoracic Complete 05/17/23 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 (NSAID) [...] cervical intervertebral disc [facility] Diagnosis Psoriatic arthritis- Primary Psoriatic arthropathy 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 Psoriatic arthropathy Plaque psoriasis Other psoriasis Psoriasis Other psoriasis SAPHO syndrome Traumatic spondylopathy History of psoriatic arthritis Personal history of arthritis 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 (NSAID) Encounter for long-term (current) use of non-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-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 Long-term current use of high risk medication other than anticoagulant Methotrexate, chcf, current use Encounter for long-term (current) use of other medications Vitamin D deficiency Unspecified vitamin D deficiency [facility] [place] [facility]* Diagnosis Psoriatic arthritis- Primary Psoriatic arthropathy 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 Psoriatic arthropathy Macrocytic anemia Unspecified deficiency anemia Plaque psoriasis Other psoriasis Psoriasis Other psoriasis SAPHO syndrome Traumatic spondylopathy History of kidney stones Personal history of urinary calculi History of psoriatic arthritis Personal history of arthritis 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 non-steroidal anti-inflammatories (NSAID) Encounter [...] osteoarthrosis, lower leg [facility]* Diagnosis Psoriatic arthritis- [...] osteoarthrosis, lower leg [facility]* Diagnosis Psoriatic arthritis- [...] Other psoriasis Hyperchromic anemia Anemia, unspecified Methotrexate, long term care pharmacist, current use [...] interphalangeal (DIP) joint [facility]* Diagnosis Psoriatic arthritis- [...] disease), cervical Degeneration of cervical intervertebral disc Macrocytic anemia Unspecified deficiency anemia Hyperchromic anemia Anemia, unspecified Psoriasis Other psoriasis Plaque psoriasis Other psoriasis Methotrexate, chcf, current use Encounter for long-term (current) use [...] interphalangeal (DIP) joint [facility]* Diagnosis Psoriatic arthritis (CMS/[facility])- Primary Psoriatic arthropathy Psoriasis vulgaris (CMS/HCC) Other [facility] Psoriatic arthritis- Primary Psoriatic [...] cervical intervertebral disc SAPHO syndrome Traumatic spondylopathy Psoriasis Other psoriasis Plaque psoriasis Other psoriasis Long-term current use of high risk medication other than anticoagulant History of psoriatic arthritis Personal history of arthritis History of kidney stones Personal history of urinary calculi Abnormal renal function test Nonspecific abnormal results of kidney function study Vitamin D deficiency Unspecified vitamin D deficiency Psoriatic spondylitis Psoriatic arthropathy 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 Anemia, unspecified type Methotrexate, chcf, current use Encounter for long-term (current) use of other medications 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 systemic steroids Encounter for long-term (current) use of steroids 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 non-steroidal anti-inflammatories (NSAID) Encounter for long-term (current) use of non-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-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 [facility] general Narrative - Reported* Type Description Date Medical History psoriasis [place] [employer] Other Hospital course Narrative No data available for this section [facility] No data available for this section [facility] CenterProgress note No data available for this section 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 (NSAID) 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 systemic steroids Methotrexate, long term care pharmacist, current use Long-term current use of high risk medication other than anticoagulant Lumbosacral spondylosis without myelopathy Disorder of bone and cartilage Plaque psoriasis Cervicalgia Dorsalgia Chronic pain of both shoulders Bilateral elbow joint pain Bilateral wrist pain Bilateral hand pain Chronic pain of both knees Tra Mahmood Jr., DO [address] [facility] [address] [place] [id number] Status Reason Specialty Diagnoses / Procedures Referred By Contact Referred To Contact Pending Review Diagnoses Vitamin D deficiency Tra Mahmood Jr., DO [address] [facility] [address] [place] [id number] Status Reason Specialty Diagnoses / Procedures Re ferred By Contact Referred To Contact New Request Sports Ortho and Primary Care Sports Diagnoses Psoriatic arthritis 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 Psoriasis Anemia, unspecified type 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 non-steroidal anti-inflammatories (NSAID) 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 systemic steroids Methotrexate, chcf, current use Long-term current use of high [...] hands, unspecified osteoarthritis type Plaque psoriasis Tra Mahmood Jr., [address] [place] [id number] Status Reason Specialty Diagnoses / Procedures Re ferred By Contact Referred To Contact New Request Occupational Therapy Diagnoses Psoriatic arthritis 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 (NSAID) 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 systemic steroids Methotrexate, long [...] hands, unspecified osteoarthritis type Plaque psoriasis Tra Mahmood Jr., DO [address] [id number] Status Reason Specialty Diagnoses / Procedures Re ferred By Contact Referred To Contact Closed Diagnoses Psoriatic arthritis Psoriatic spondylitis Psoriasis Plaque psoriasis Anemia, unspecified type Methotrexate, chcf, current use Long-term current use of high risk medication other than anticoagulant 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 systemic steroids 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 Patient states he recently moved to [place] from [place]. Patient was seeing a Automotive Parts Coordinator and Instrument Assembly Supervisor there for his psorasis and PsA. Patient states he seen a board writer Dr. Fawad Driver but they did not [...] Romberg sign. Gait abnormal. Cane. 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 History of Present Illness Patient states he seen a board writer Dr. Fawad Driver but they did not [...] Romberg sign. Gait abnormal. Cane. 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 Fawad Driver but they did not [...] (09/03/18 113), DVPRS: Rest: 10- severe pain (09/03/181130), DVPRS: Activity: 10- severe pain (09/03/181130), Select Pain Scale: DVPRS (Defense and Veterans Pain Rating Scale) (Adult-Cognitively Intact) (09/03/18 113), Pain Duration: 4 Month F/U (09/03/181130), Pain [...] Pain Management F/U per Dr. Solano in [place]. 15. Disability forms filled out for patient [...] 4 months documented in this encounter* Tra Mahmood Jr., DO - 05/06/2019 9:15 AM EST History of Present Illness Patient states he seen a board writer Dr. Fawad Driver but they did not [...] Gait: Gait abnormal. Comments: Cane. Decreased director global strategic publisher sales strength both hands Psychiatric: Mood and Affect: [...] Anemia, unspecified type History of psoriatic arthritis 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 non-steroidal anti-inflammatories (NSAID) 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 systemic steroids Long-term current use of high risk medication other than anticoagulant Methotrexate, chcf, current use Vitamin D deficiency DDD (degenerative [...] Pain Management F/U per Dr. Solano in [place]. 15. TB test was negative 16. Negative [...] wt gain. documented in this encounter* Tra Mahmood Jr., DO - 09/09/2019 8:30 AM EDT History of Present Illness Patient states he seen a board writer Dr. Fawad Driver but they did not [...] Gait: Gait abnormal. Comments: Cane. 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 Solano in [place]. 15. TB test was negative 16. Negative [...] wt gain. documented in this encounter* Tra Mahmood Jr., - 01/13/2020 8:30 AM EDT History of Present Illness Patient states he seen a board writer Dr. Fawad Driver but they did not [...] appointment. 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 Motor: Weakness present. 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 Behavior: Behavior normal. Thought Content: Thought content normal. Judgment: Judgment normal. Neurologic Exam Mental Status Oriented to person, place, and time. Cranial Nerves CN III, IV, Pupils are equal, round, and reactive to light. Extraocular motions are normal. Assessment and Plan Encounter Diagnoses Name Primary? 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 DIRECTOR ENTERPRISE SALES is elevated at 1.34 with GFR of [...] Pain Management F/U per Dr. Solano in [place]. 15. TB test was negative 16. Negative [...] 6 months documented in this encounter* Tra Mahmood Jr., DO - 01/07/2019 9:15 AM EDT History of Present Illness Patient states he seen a board writer Dr. Fawad Driver but they did not [...] Psoriasis Plaque psoriasis Anemia, unspecified type Methotrexate, chcf, current use Long-term current use of high risk medication other than anticoagulant 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 systemic steroids 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 non-steroidal anti-inflammatories (NSAID) History [...] Pain Management F/U per Dr. Solano in [place]. 15. F/U with me in 4 months [...] months thereafter documented in this encounter* Tra Mahmood Jr., DO - 07/13/2020 8:30 AM EDT History of Present Illness Patient states he seen a board writer Dr. Fawad Driver but they did not [...] him. Patient states he has seen a board writer Nataliefelter and she recommends Taltz instead of stelara. [...] intact. Motor: Weakness present. 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 3. Call if need Rx's 4. DIRECTOR ENTERPRISE SALES was elevated at 1.34 with GFR of [...] Pain Management F/U per Dr. Solano in [place]. 15. TB test was negative 16. 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 (NSAID) Encounter for long-term (current) use of non-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-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 Encounter for long-term (current) use of steroids Methotrexate, chcf, current use Encounter for long-term (current) use [...] spondylopathy Psoriasis Other psoriasis Anemia, unspecified type 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 non-steroidal anti-inflammatories (NSAID) Encounter for long-term (current) use of non-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-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 systemic steroids Encounter for long-term (current) use of steroids Methotrexate, long term care pharmacist, current [...] spondylopathy Psoriasis Other psoriasis Anemia, unspecified type 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 non-steroidal anti-inflammatories (NSAID) Encounter for long-term (current) use of non-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-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 Encounter for long-term (current) use of steroids Methotrexate, chcf, current use Encounter for long-term (current) use [...] of psoriatic arthritis Personal history of arthritis 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 non-steroidal anti-inflammatories (NSAID) Encounter for long-term (current) use of non-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-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 systemic steroids Encounter for long-term (current) use of steroids Long-term current use of high risk medication other than anticoagulant Methotrexate, chcf, current use Encounter for long-term (current) use [...] of psoriatic arthritis Personal history of arthritis 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 (NSAID) Encounter for long-term (current) use of non-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-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 Encounter [...] of psoriatic arthritis Personal history of arthritis 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 non-steroidal anti-inflammatories (NSAID) Encounter [...] Other psoriasis Plaque psoriasis Other psoriasis Methotrexate, long term care pharmacist, current use Encounter for long-term (current) use of other medications Long-term current use of high risk medication other than anticoagulant 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 non-steroidal anti-inflammatories (NSAID) Encounter [...] psoriasis Other psoriasis Anemia, unspecified type Methotrexate, chcf, current use Encounter for long-term (current) use of other medications Long-term current use of high risk medication other than anticoagulant 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 systemic steroids Encounter for long-term (current) use of steroids 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 non-steroidal anti-inflammatories (NSAID) Encounter [...] psoriasis Other psoriasis Anemia, unspecified type Methotrexate, chcf, current use Encounter for long-term (current) use of other medications Long-term current use of high risk medication other than anticoagulant 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 systemic steroids Encounter for long-term (current) use of steroids 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 (NSAID) [...] of psoriatic arthritis Personal history of arthritis 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 Patient states he recently moved to [place] from [place]. Patient was seeing a Automotive Parts Coordinator and Instrument Assembly Supervisor there for his psorasis and PsA. Patient states he seen a board writer Dr. Fawad Driver but they did not [...] appointment. 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 Patient states he has seen a board writer Bear antoine and she recommends Taltz instead [...] his 6 Month F/U. 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 Patient [...] UYEN knee and neck are the worse. Reason Comments Follow-up Patient is here for 6 month Follow-up. Patient states is doing ok overall. States has pain everyday all over his body. Reason Comments Follow-up Patient is here toda y for her 6 Month Follow-up. Patient states he is about the same since his last appointment. Patient states he has joint pain every day. (unrecognized sect ion and content) No Status Records FoundNo Status Records FoundNo Status Records FoundNo Status Records FoundNo Status Records FoundNo Status Records FoundNo Status Records FoundNo Status Records FoundNo Status Records Found INFORMATION SOURCE (unrecogn ized section and content) DATE CREATED AUTHOR 07/29/2020 [facility] DATE CREATED AUTHOR AUTHOR'S ORGANIZ ATION 03/21/2021 [facility] DATE CREATED AUTHOR AUTHOR'S ORGANIZ ATION 01/11/2022 [facility] DATE CREATED AUTHOR AUTHOR'S ORGANIZ ATION 08/12/2022 [facility] DATE CREATED AUTHOR AUTHOR'S ORGANIZ ATION 11/21/2022 [facility] DATE CREATED AUTHOR AUTHOR'S ORGANIZ ATION 03/05/2024 [facility] EPIC DATE CREATED AUTHOR AUTHOR'S ORGANIZ ATION 08/20/2024 [facility] DATE CREATED AUTHOR AUTHOR'S ORGANIZ ATION 11/19/2024 [facility] DATE CREATED AUTHOR AUTHOR'S ORGANIZ ATION 12/10/2024 [facility] Care Teams (unrecognized sec tion and content) Brand Advisor Relationship Specialty Start Date End Date Rodrigo Luz MD [address], [facility] Medicine [place] [id number] PCP - General Family Medicine 12/31/17 Brand Advisor Relationship Specialty Start Date End Date Rodrigo Luz MD [address], [facility] [place] [address] PCP - General Family Medicine 12/31/17 Brand Advisor Relationship Specialty Start Date End Date Rodrigo Luz MD [address], [facility] [place] [address] PCP - General Family Medicine 12/31/17 Brand Advisor Relationship Specialty Start Date End Date Rodrigo Luz MD [address] [id number] PCP - [facility] 12/31/17 Brand Advisor Relationship Specialty [place] [address] [place] [id number] PCP - [facility] 07/31/23 Brand Advisor Relationship Specialty Start Date End Date Rodrigo Brink MD [address] [place] [address] PCP - [facility] 07/31/23 Brand Advisor Relationship Specialty Start Date End Date Rodrigo Brink MD [address] [place] [address] PCP - [facility] 07/31/23 FOR RECORDS PERTAINING TO PATIENTS WHO [...] BE BASED ON THE PRIMARY CLINICAL RECORDS. [facility]. provides no warranty or guarantee of the accuracy or completeness of information in this document.
== END 2024-12-10 12:33 | disposition home or self-care (01) ==
LOC: RAD 12:34
PROVIDERS: PCP Family Medicine; Visit Provider Urology
DX: N20.0 Calculus of kidney (principal)
CPT/HCPCS: 74018